=== PATIENT | female | born 1960 | race Caucasian/White ===

== ENCOUNTER 2017-04-15 15:22 | Emergency (ER) | payer OTHER, SELFPAY ==
[2017-04-15 15:23] VITALS: BP 128/61; PULSE 79; RESP 16; TEMP 36.7; O2SAT 97; BMI 23.5
[2017-04-15] MEDS: 0.9% Normal Saline 1,000 ML 1000 ML IV (16:30)
[2017-04-15 16:47] LABS: Absolute Neutrophil Count 6.2 X10^3/uL (2.0-7.7); Basophil# 0.01 X10^3/uL; Basophil% 0.1 % (0-1); Eosinophil# 0.01 X10^3/uL; Eosinophils% 0.1 % (0-5); Hematocrit 35.6 % (37-47); Hemoglobin 11.9 g/dl (12.0-15.0); Lymphocyte % 22.8 % (19-41); Mean Corp Hgb Conc 33.4 g/gl (32-36); Mean Corpuscular Hgb 31.9 pg (27.0-32.0); Mean Corpuscular Volume 95.4 fL (81-99); Mean Platelet Vol. 8.8 fl (6.2-12.0); Monocyte# 0.51 X10^3/uL; Monocyte% 5.8 % (0-10); Neutrophil # 6.19 X10^3/uL (2.7-7.7); Neutrophil % 70.6 % (47-70); Platelet Count 411 K/mm3 (150-450); RBC Distribution Width CV 13.5 % (11.6-14.6); RBC Distribution Width SD 46.9 fl (35.1-43.9); Red Blood Count 3.73 M/mm3 (4.2-5.4); White Blood Count 8.8 K/mm3 (4.4-11.0)
[2017-04-15 16:49] LABS: POSITIVE COUNT NO; POSITIVE DIFFERENTIAL NO; POSITIVE MORPHOLOGY NO
[2017-04-15 17:09] LABS: Anion Gap 8 (5-15); BUN 6 mg/dL (7-18); BUN/Creat Ratio 8.6 RATIO (10-20); Chloride 105 mmol/L (98-107); EST Glomerular Filtration Rate 93 mL/min (>60); Est Glom Filt Rate - Afr Amer 112 mL/min (>60); Estimated Creatinine Clearance 86.01 ml/min; Glucose 108 mg/dL (74-106); Sodium Level 136 mmol/L (136-145)
--- NOTE | 2017-04-15 17:20 | RAD_ITS ---
STUDY: X-RAY CHEST REASON FOR EXAM: Female, 56 years old. INCREASED SHORTNESS OF BREATH, PT IS RECOVERING FROM THE FLU. SENT TO ED BY PCP FOR POSSIBLE PNUEMONIA TECHNIQUE: Frontal and lateral view of the chest. COMPARISON: August 09, 2016 FINDINGS: Right lower lobe infiltrate. There is no demonstrated pleural abnormality. Normal size heart. Normal mediastinum and sandra. Normal visualized pulmonary arteries. Normal visualized aortic arch and descending thoracic aorta. There are diffuse degenerative changes of the visualized thoracic spine. Normal visualized ribs, clavicles, and shoulders. There is no demonstrated abnormality of the visualized soft tissue structures of the upper abdomen. RAD/Chest PA and Lateral IMPRESSION: Right lower lobe infiltrate. Electronically Signed: Erasto Persaud MD at 18:00 EST , Service support ,
[2017-04-15 17:33] VITALS: O2SAT 97
--- NOTE | 2017-04-15 18:11 | ED.VISSUMM ---
- ER Visit Summary Date of Service: 04/15/17 Chief Complaint: Flulike symptoms History of Present Illness: The patient is a 56 F who presents with flulike symptoms beginning in early March. She reports subjective fevers sore throat cough muscle aches joint aches and headache. She states she feels like she is just not breathing right. She does have some dyspnea on exertion. She denies any chest pain. She denies vomiting or diarrhea. She states she was initially improving but began worsening again earlier this week. She spoke to her primary care physician who was current concerned as she is immunosuppressed. She is currently on a long prednisone taper due to adrenal insufficiency. She was previously on methotrexate but is not on this currently. Physical Examination: Afebrile vitals are unremarkable and within normal limits Moist mucous membranes Heart regular rate and rhythm Does have some scattered rhonchi and extra wheezes I do not appreciate rales she is in no distress she is able speak in full sentences without retractions Alert Test Results: CBC BMP unremarkable. Rapid influenza negative. Chest x-ray does show right lower lobe infiltrate. Emergency Department Course and Treatment: Patient does have a community-acquired pneumonia. Her vitals are normal and she has unremarkable laboratory studies. I do believe she is a good candidate for outpatient treatment. She was given a prescription for Levaquin. She understands to return for new or worsening symptoms and was instructed on specific signs and symptoms to monitor for. She was discharged. Treatment Plan: [] Disposition: Discharge Impression: Community acquired pneumonia This note was generated with [employer] dictation software. It may contain incorrect words, spelling, and punctuation that were not noted in review of the chart prior to signing ED Disposition - Plan for ED Patient: Chief Complaint: Shortness of Breath Referrals: Martha Shah DO [Primary Care Provider] -
--- NOTE | 2017-04-15 18:13 | ED.DEP ---
ED Disposition - Plan for ED Patient: Chief Complaint: Shortness of Breath Instructions: ED Pneumonia Adult Prescriptions: Levofloxacin [Levaquin] 500 mg PO DAILY #7 tab Referrals: Martha Shah DO [Primary Care Provider] -
[2017-04-15 18:31] VITALS: BP 140/83; PULSE 72; RESP 14; O2SAT 100
== END 2017-04-15 18:33 | disposition home or self-care (01) ==
PROVIDERS: Emergency Provider Emergency Medicine; Family Provider Internal Medicine; PCP Internal Medicine
DX: J18.9 Pneumonia, unspecified organism (principal); E27.40 Unspecified adrenocortical insufficiency; E03.9 Hypothyroidism, unspecified; E78.00 Pure hypercholesterolemia, unspecified; Z79.899 Other long term (current) drug therapy; Z72.0 Tobacco use
CPT/HCPCS: 71046; 80048; 85025; 87633; 87804; 96360; 96361; 99283; J7030; A4216

== ENCOUNTER → 2017-04-20 09:42 | Outpatient (CLI) | payer OTHER, SELFPAY ==
[2017-04-20 11:59] LABS: Absolute Lymphocyte Count 3.42 X10^3/ul (0.83-4.51); Absolute Neutrophil Count 5.9 X10^3/uL (2.0-7.7); Basophil# 0.02 X10^3/uL; Basophil% 0.2 % (0-1); Eosinophil# 0.03 X10^3/uL; Eosinophils% 0.3 % (0-5); Hematocrit 37.5 % (37-47); Lymphocyte # 3.42 X10^3/ul (4.0); Lymphocyte % 33.8 % (19-41); Mean Corpuscular Hgb 31.5 pg (27.0-32.0); Mean Corpuscular Volume 98.4 fL (81-99); Mean Platelet Vol. 8.7 fl (6.2-12.0); Monocyte# 0.76 X10^3/uL; Monocyte% 7.5 % (0-10); Neutrophil # 5.85 X10^3/uL (2.7-7.7); Neutrophil % 57.8 % (47-70); Platelet Count 525 K/mm3 (150-450); RBC Distribution Width SD 49.9 fl (35.1-43.9); Red Blood Count 3.81 M/mm3 (4.2-5.4); White Blood Count 10.1 K/mm3 (4.4-11.0)
[2017-04-20 12:03] LABS: POSITIVE COUNT NO; POSITIVE DIFFERENTIAL NO; POSITIVE MORPHOLOGY NO
[2017-04-21 14:13] LABS: EBV Acute VCA IgM < 36.0 U/mL (0.0-35.9); EBV Early Antigen IgG 49.1 U/mL (0.0-8.9); EBV Nuclear Antigen IgG > 600.0 U/mL (0.0-17.9)
== END ==
PROVIDERS: Family Provider Internal Medicine; PCP Internal Medicine; Visit Provider Internal Medicine
DX: R53.83 Other fatigue (principal)
CPT/HCPCS: 36415; 85025; 86663; 86664; 86665

== ENCOUNTER → 2017-05-01 11:32 | Outpatient (CLI) | payer OTHER, SELFPAY ==
--- NOTE | 2017-05-01 11:53 | RAD_ITS ---
STUDY: X-RAY CHEST REASON FOR EXAM: Female, 56 years old. Follow-up of right lower lobe pneumonia. TECHNIQUE: Frontal and lateral views of the chest. COMPARISON: April 15, 2017 FINDINGS: There is mild hyperexpansion unchanged. The patchy opacity at the right base peripherally has resolved. There are healed granulomatous calcifications unchanged. There is no demonstrated pleural abnormality. Normal size heart. Normal mediastinum and sandra. Normal visualized pulmonary arteries. Normal visualized aortic arch and descending thoracic aorta. Normal visualized thoracic spine. Normal visualized ribs, clavicles, and shoulders. There is no demonstrated abnormality of the visualized soft tissue structures of the upper abdomen. RAD/Chest PA and Lateral IMPRESSION: Healing of right lower lobe pneumonia. No acute pathology. Electronically Signed: Murray Palma MD at 17:05 EST , Service support ,
== END ==
PROVIDERS: Family Provider Internal Medicine; PCP Internal Medicine; Visit Provider Internal Medicine
DX: J18.9 Pneumonia, unspecified organism (principal)
CPT/HCPCS: 71046

== ENCOUNTER 2017-05-22 11:00 | Outpatient (RCR) | payer OTHER, SELFPAY ==
--- NOTE | 2017-03-30 16:27 | HP.PTEVAL_ITS ---
Patient's Visit Information TITA LAW is a 56 year old F referred to Physical Therapy by Maddie Munoz , [employer] with a diagnosis of L-IVDD,L-STENOSIS,L-SPONDYLOPATHY,MYALGIA. Date of Evaluation: 03/30/17 Physical Therapist: Alan Miller, PT, - Visit Plan Frequency: 2x /Week Duration: 4 Weeks Plan: US,MHP CERVICAL -LUMBAR,ESTIM, MANUAL THERAPY WITH STM/MYOFASCIAL CERVICAL /LUMBAR, PROGRESS WITH POSTURAL EX'S AND DLS ABLE - Subjective Subjective: This 56 y/o female presents to physical therapyLIVDD,LSTENOSIS, Lspondylothathy,myalgia. Patient has h/o cervical fusion 2010,lumbar surgery fusion 2004. Patient has had lum bar pain in cervical and lumbar with radicular worse in arms. Patient has parathesia/hands in hand right than left. Patient conts to have intermmtant symptos in legs. Patient has h/o compression fracture. Symptoms worse with walking ,standing,bending,lifting,sitting, driving. Patient has MINOR/migraines . Patient has muscle spasms in cervical- lumbar. Patient has had prior PT and water ex's in past. Pain affects sleeping. Denies tinnitus/nausea.Pain interfers with patient daily function uality of life from pain.Patient had MRI cervical . Paln to see surgeon. Coughing/seezing -. Bowel/bladder good.Patient has had injection epidural. VOCATION: home. SOCAIL: - Pain Bilateral Neck Pain Intensity (Out of 10): 4 Pain Intensity Range: 10 Bilateral Shoulder Pain Intensity (Out of 10): 5 Pain Intensity Range: 10 Comment: arms Bilateral Buttocks Pain Intensity (Out of 10): 4 Pain Intensity Range: 10 Bilateral Lower Extremity Pain Intensity (Out of 10): 4 Pain Intensity Range: 10 - Objective POSTURE: guarded mild foward posture,reduce lordosis. GAIT: reciprocal gait , normal brittany. PALPATION: tender UT/LEVATOR /paraspinals,L-S,ERECTOR SPINALS. BUE AROM: WFL. CERVICAL ROM: flexion min/mod loss,rotation /lateral flexion, mod loss ,extension mod loss. MMT: 4-5/ except shoulders 3+/5. LUMBAR ROM: flexion mod loss,extension mod loss ,side glides mod loss. FLEXABLITY : hams min loss - Special Tests C/S Radiculapathy - Left Upper limb tension test: Negative C/S Radiculapathy - Right Upper limb tension test: Negative L/S Slump test left side: Negative L/S Slump test right side: Negative L/S Left Straight Leg Raise: Negative L/S Right Straight Leg Raise: Negative - Goals Goal 1:: Independant with HEP as bunny Goal Time Frame: 4-6 Weeks Goal 2:: Independant with posture for ADL'S Goal Time Frame: 4-6 Weeks Goal 3:: Decrease cervical and lumbar pain by 40% or greater to improve function. Goal Time Frame: 4-6 Weeks Goal 4:: Increase strength BUE AND BLE to 4/5 nto improve function and ADL'S Goal Time Frame: 4-6 Weeks Goal 5:: Patient improve ablity to peform ADLS' and housework tasks with min limitaions. Goal Time Frame: 4-6 Weeks - Rehabilitation Potential Physical Therapy Diagnosis: This patient has multiple comormidities with cervical and lumbar fusion with chronic pain,spasms with poor ROM ,poor strength ,impairs function with ADL'S Rehabilitation Potential: Good - Anticipated Interventions Patient/Client Instruction: Educate patient on: Condition, Plan of Care For the Purpose of:: To decrease pain, To improve muscle performance and motor function, To improve ability to perform ADL's, To increase tolerance to activity /condition/position, To improve ability of physical actions for home/community/ work/leisure, To improve health of tissue, To decrease soft tissue restriction, To increase flexibility/ROM, To improve health and function, To improve ability to perform tasks related to life management Therapeutic Exercise to Include: Strength training, Postural training, Flexibilty training, Dynamic Lumbar Stabilization Comment: ABLE For the Purpose of:: To decrease pain, To increase ROM, To improve muscle performance and motor function, To improve ability to perform ADL's, To increase tolerance to activity/condition/position, To improve ability of physical actions for home/community/work/leisure, To improve health of tissue, To decrease soft tissue restriction, To increase flexibility/ROM, To improve health and function, To improve ability to perform tasks related to life management Manual Therapy Techniques to Include: Massage, Soft tissue mobilization For the Purpose of:: To decrease pain, To increase ROM, To improve nutrient delivery to tissue, To increase oxygenation perfusion TENS: Yes IF ES: Yes Cryotherapy (ice pack, ice massage): Yes Thermo therapy (hot pack): Yes Ultrasound (thermal/non thermal): Yes For the Purpose of:: To decrease pain, To improve nutrient delivery to tissue, To increase oxygenation perfusion, To improve health of tissue, To decrease soft tissue restriction Thank you for the opportunity to evaluate your patient. For Medicare and Medicare HMO plans, please review the plan of care and approve it. It will need to be FAXED BACK to us at [phone] for Medicare purposes. Please let me know if there are questions or concerns regarding this plan of care. Physician Signature: Date:
--- NOTE | 2017-07-26 10:16 | HP.PTDCSUM ---
HP - PT D/C Summary It has been my pleasure to treat TITA LAW under orders from THOR Ridley, for the diagnosis of L-IVDD,L-STENOSIS,L-SPONDYLOPATHY,MYALGIA for a total of 8 visit(s). Discharge Date: Please see the following information for a summary of their discharge status. - Subjective Subjective: Some better today .Plan to SEE surgoen for mylogram - Pain Bilateral Neck Pain Intensity (Out of 10): 5 Bilateral Shoulder Pain Intensity (Out of 10): 5 Bilateral Buttocks Pain Intensity (Out of 10): 5 Bilateral Lower Extremity Pain Intensity (Out of 10): 5 - Objective Objective/Function: POSTURE: MILD FOWARD HEAD ,DECREASE LORDOSIS. GAIT: SYLVIA REINA. MMT: QUADS/HAMS 4/5,HIP 4-/5,BUE GROSSLY 4/5 EXCEPT SHOULLDERS 4-/5. CERVICAL ROM: MOD LOSS. LUMBAR ROM: MOD LOSS - Goals Goal 1:: Independant with HEP as bunny Goal Progress: Progressing Goal 2:: Independant with posture for ADL'S Goal Progress: Progressing Goal 3:: Decrease cervical and lumbar pain by 40% or greater to improve function. Goal Progress: Progressing Goal 4:: Increase strength BUE AND BLE to 4/5 nto improve function and ADL'S Goal Progress: Progressing Goal 5:: Patient improve ablity to peform ADLS' and housework tasks with min limitaions. Goal Progress: Progressing - Plan Plan: RTD - D/C Information If there are questions or concerns regarding this patient's physical therapy, please feel free to call me at [phone]. Thank you for the referral of this patient. Sincerely, Alan Miller, PT,
== END 2017-05-22 19:00 | disposition home or self-care (01) ==
LOC: PT 11:00
PROVIDERS: Family Provider Internal Medicine; PCP Internal Medicine; Visit Provider Nurse Practitioner Family
DX: M48.061 Spinal stenosis, lumbar region without neurogenic claudication (principal); M51.36 Other intervertebral disc degeneration, lumbar region; M46.96 Unspecified inflammatory spondylopathy, lumbar region; M79.1 Myalgia
CPT/HCPCS: 97014; 97035; 97110; 97140; 97162; 97530; G0283

== ENCOUNTER → 2017-06-22 11:33 | Outpatient (CLI) | payer OTHER, SELFPAY ==
[2017-06-22 14:13] LABS: Absolute Lymphocyte Count 2.05 X10^3/ul (0.83-4.51); Absolute Neutrophil Count 2.7 X10^3/uL (2.0-7.7); Basophil# 0.03 X10^3/uL; Basophil% 0.5 % (0-1); Eosinophils% 1.8 % (0-5); Hematocrit 39.2 % (37-47); Hemoglobin 12.8 g/dl (12.0-15.0); Lymphocyte # 2.05 X10^3/ul (4.0); Lymphocyte % 37.2 % (19-41); Mean Corp Hgb Conc 32.7 g/gl (32-36); Mean Corpuscular Hgb 32.6 pg (27.0-32.0); Mean Corpuscular Volume 99.7 fL (81-99); Mean Platelet Vol. 10.4 fl (6.2-12.0); Monocyte# 0.59 X10^3/uL; Monocyte% 10.7 % (0-10); Neutrophil # 2.73 X10^3/uL (2.7-7.7); Neutrophil % 49.6 % (47-70); Platelet Count 276 K/mm3 (150-450); RBC Distribution Width CV 13.9 % (11.6-14.6); RBC Distribution Width SD 49.8 fl (35.1-43.9); Red Blood Count 3.93 M/mm3 (4.2-5.4); White Blood Count 5.5 K/mm3 (4.4-11.0)
[2017-06-22 14:18] LABS: POSITIVE COUNT NO; POSITIVE DIFFERENTIAL NO; POSITIVE MORPHOLOGY NO
[2017-06-22 14:38] LABS: BUN 8 mg/dL (7-18); BUN/Creat Ratio 10.2 RATIO (10-20); Creatinine, Serum 0.79 mg/dL (0.55-1.02); EST Glomerular Filtration Rate 81 mL/min (>60); Est Glom Filt Rate - Afr Amer 98 mL/min (>60); Glucose 82 mg/dL (74-106); Protein, Total 7.3 g/dL (6.4-8.2)
[2017-06-22 14:39] LABS: ALB/GLOB Ratio 1.2 RATIO (0.9-2.4); AST(SGOT) 18 U/L (15-37); Alanine Aminotransfer ALT/SGPT 19 U/L (13-56); Alkaline Phosphatase 50 U/L (45-117); Anion Gap 8 (5-15); Calcium,Total 8.5 mg/dL (8.5-10.1); Chloride 107 mmol/L (98-107); Cholesterol 183 mg/dL (200); Globulin 3.3 g/dL (2.2-4.2); High Density Lipoprotein 69 mg/dL; Potassium 3.8 mmol/L (3.5-5.1); Sodium Level 139 mmol/L (136-145); Triglycerides 79 mg/dL; Very Low Density Lipoprotein 16 mg/dL (5-40)
[2017-06-22 14:41] LABS: Hemoglobin A1c 5.9 % (4.2-6.3)
== END ==
PROVIDERS: Family Provider Internal Medicine; PCP Internal Medicine; Visit Provider Internal Medicine
DX: E78.4 Other hyperlipidemia (principal); R73.01 Impaired fasting glucose
CPT/HCPCS: 36415; 80053; 80061; 83036; 85025

== ENCOUNTER → 2017-06-28 15:27 | Outpatient (CLI) | payer OTHER, SELFPAY ==
--- NOTE | 2017-06-28 15:30 | CT_ITS ---
STUDY: CT BRAIN WITHOUT CONTRAST REASON FOR EXAM: Female, 56 years old. Fall. RADIATION DOSAGE (If Supplied By Facility): CTDIvol = ( 44.99 ) mGy, DLP = ( 846.73 ) mGycm TECHNIQUE: Transaxial CT imaging of the brain was performed without administration of intravenous contrast material. Individualized dose optimization techniques were used for this CT. COMPARISON: None. FINDINGS: Normal soft tissue structures. Normal calvarium. Normal size ventricles and extra-axial spaces for the patient's age. Normal white matter tracts of the cerebral hemispheres. Normal basal ganglia and thalami. Normal brainstem. Normal cerebellum. There is no intracranial hemorrhage. There are no findings of an acute ischemic infarction. Normal visualized paranasal sinuses. CT/Brain/Head without Contrast IMPRESSION: Normal unenhanced CT scan of the brain. Electronically Signed: Yovanny Rivera MD at 16:17 EDT , Service support ,
--- NOTE | 2017-06-28 15:54 | RAD_ITS ---
STUDY: X-RAY - RIGHT RADIUS AND ULNA REASON FOR EXAM: Female, 56 years old. Patient fell 2 weeks ago. Pain. TECHNIQUE: 2 view(s) of the forearm. COMPARISON: None. FINDINGS: There is no demonstrated soft tissue swelling. Normal visualized radius. Normal visualized ulna. RAD/Forearm 2 Views IMPRESSION: Normal x-ray examination of the radius and ulna. Electronically Signed: Jam Thomas MD at 2:41 EDT Tel , Service support ,
--- NOTE | 2017-06-28 15:55 | RAD_ITS ---
STUDY: X-RAY - RIGHT WRIST REASON FOR EXAM: Female, 56 years old. Patient fell 2 weeks ago. Pain. TECHNIQUE: 3 view(s) of the wrist were obtained. COMPARISON: None. FINDINGS: Normal visualized distal radius and ulna. Normal radiocarpal articulation. Normal distal radioulnar articulation. Normal carpal bones. Normal carpal articulations. Normal carpometacarpal articulation of the thumb. Normal second through fifth carpometacarpal articulations. Normal visualized metacarpal bones. The soft tissue structures are unremarkable. There is no demonstrated acute fracture. There are well-defined bony densities distal to the ulnar styloid which could represent nonfused ossification centers or old nonunited fracture. RAD/Wrist min 3 Views IMPRESSION: No demonstrated acute osseous changes. Electronically Signed: Jam Thomas MD at 2:43 EDT Tel , Service support ,
== END ==
PROVIDERS: Family Provider Internal Medicine; PCP Internal Medicine; Visit Provider Internal Medicine
DX: M25.531 Pain in right wrist (principal); M81.0 Age-related osteoporosis without current pathological fracture; R51 Headache
CPT/HCPCS: 70450; 73090; 73110

== ENCOUNTER → 2017-08-31 12:27 | Outpatient (CLI) | payer OTHER, SELFPAY ==
--- NOTE | 2017-08-31 12:33 | BD_ITS ---
STUDY: DUAL ENERGY X-RAY ABSORPTIOMETRY / DXA REASON FOR EXAM: Female, 57 years old. The patient is postmenopausal. Loss of height. TECHNIQUE: Bone Mineral Density (BMD) measurements of lumbar spine and right hip were obtained. COMPARISON: Comparison is made with prior study dated August 27, 2015. FINDINGS: Lumbar Spine (L1-L4): g/cm2 (0.957) / T-score (-1.9) / Z-score (-1.1) Findings are suggestive of osteopenia with a moderate fracture risk. Left Femur Total: g/cm2 (0.650) / T-score (-2.8) / Z-score (-2.2) Left Femoral Neck: g/cm2 (0.644) / T-score (-2.8) / Z-score (-1.8) The T-Scores on the most recent prior examination were: Lumbar Spine (L1-L4): There has been improvement of bone density since the previous examination. Left Femur Total: which represents an improvement of 8.2%. BD/Dexa Bone Density Study IMPRESSION: The patient is considered osteoporotic as outlined below according to World Tod Organization (WHO) criteria with a high fracture risk. There has been improvement of bone density since the previous examination. Reference Information: The T-score is the number of standard deviations above or below the standard which is normal for young adults at their peak bone mineral density. The World Health Organization (WHO) interprets the T-scores as follows: Above -1 Normal bone density Between -1 and -2.5 Osteopenia Equal to / or below -2.5 Osteoporosis As a practical clinical guideline, osteopenia may be graded as follows: Mild -1 through -1.5 Moderate -1.6 through -2.0 Severe -2.1 through -2.4 The Z-score is the number of standard deviations above or below age-matched controls. A Z-score of less than -1.5 would be considered abnormal. References: 1. NIH Osteoporosis and Related Bone Diseases http://www.osteo.org 2. International Society for Clinical Densitometry http://www.iscd.org 3. National Osteoporosis Foundation http://www.nof.org Electronically Signed: Barrera Nguyen MD at 15:16 EDT Tel [phone], Service support ,
--- NOTE | 2017-08-31 12:56 | BI_ITS ---
MAMMOGRAPHY - BILATERAL SCREENING REASON FOR EXAM: Female, 57 years old. Routine annual screening examination. PERTINENT HISTORY: Mother with breast cancer. Left breast tenderness. TECHNIQUE: Digital bilateral breast aktia (3D mammographic acquisition) in the CC and MLO projections. 2-D mediolateral oblique (MLO) and craniocaudad (CC) views of both breasts were obtained. CAD: Full Field Digital Mammography with Computer Added Detection was performed. COMPARISON: Comparison is made with prior study dated August 29, 2016 and August 27, 2015. FINDINGS: Breast Composition: There are scattered areas of fibroglandular density. There are no dominant masses or suspicious calcifications. A tissue clip marker is once again seen in the upper deep lateral portion of the left breast. No other significant abnormalities are identified. There has been no significant change since the prior study. BI/SCREENING MAMM (CAD), BILAT IMPRESSION: Stable bilateral screening mammogram. Yearly follow-up mammogram recommended. (A) ASSESSMENT CATEGORY: BIRADS Category 2: Benign. A letter regarding these results will be sent to the patient by the facility within 30 days. Approximately 10% of breast cancers are not detected by mammography. A normal mammogram should not delay biopsy of a clinically suspicious abnormality. [id number] Electronically Signed: Barrera Nguyen MD at 14:24 EDT Tel [phone], Service support ,
== END ==
PROVIDERS: Family Provider Internal Medicine; PCP Internal Medicine; Visit Provider Internal Medicine
DX: M81.0 Age-related osteoporosis without current pathological fracture (principal); Z12.31 Encounter for screening mammogram for malignant neoplasm of breast
CPT/HCPCS: 77063; 77067; 77080

== ENCOUNTER → 2017-10-28 13:13 | Outpatient (CLI) | payer OTHER, SELFPAY ==
[2017-10-28 13:47] LABS: Erythrocyte Sedimentation Rate 3 mm/hr (0-30)
[2017-10-28 13:50] LABS: Absolute Lymphocyte Count 1.79 X10^3/ul (0.83-4.51); Absolute Neutrophil Count 3.9 X10^3/uL (2.0-7.7); Basophil# 0.03 X10^3/uL; Basophil% 0.5 % (0-1); Eosinophil# 0.02 X10^3/uL; Eosinophils% 0.3 % (0-5); Hemoglobin 13.2 g/dl (12.0-15.0); Lymphocyte # 1.79 X10^3/ul (4.0); Lymphocyte % 28.4 % (19-41); Mean Corp Hgb Conc 33.8 g/gl (32-36); Mean Corpuscular Hgb 33.5 pg (27.0-32.0); Mean Platelet Vol. 9.7 fl (6.2-12.0); Monocyte# 0.52 X10^3/uL; Monocyte% 8.3 % (0-10); Neutrophil # 3.93 X10^3/uL (2.7-7.7); Neutrophil % 62.3 % (47-70); POSITIVE COUNT NO; POSITIVE DIFFERENTIAL NO; POSITIVE MORPHOLOGY NO; Platelet Count 275 K/mm3 (150-450); RBC Distribution Width CV 13.8 % (11.6-14.6); RBC Distribution Width SD 49.3 fl (35.1-43.9); Red Blood Count 3.94 M/mm3 (4.2-5.4); White Blood Count 6.3 K/mm3 (4.4-11.0)
[2017-10-28 13:59] LABS: Hemoglobin A1c 5.7 % (4.2-6.3)
[2017-10-28 14:50] LABS: ALB/GLOB Ratio 1.3 RATIO (0.9-2.4); AST(SGOT) 15 U/L (15-37); Alanine Aminotransfer ALT/SGPT 20 U/L (13-56); Albumin, Serum 4.3 g/dL (3.2-5.0); Alkaline Phosphatase 46 U/L (45-117); Anion Gap 8 (5-15); BUN 6 mg/dL (7-18); BUN/Creat Ratio 8.5 RATIO (10-20); CRP < 2.90 mg/L (0.0-3.0); Calcium,Total 8.9 mg/dL (8.5-10.1); Chloride 105 mmol/L (98-107); Cholesterol 200 mg/dL (200); Creatinine, Serum 0.71 mg/dL (0.55-1.02); EST Glomerular Filtration Rate 91 mL/min (>60); Est Glom Filt Rate - Afr Amer 110 mL/min (>60); Globulin 3.3 g/dL (2.2-4.2); Glucose 94 mg/dL (74-106); High Density Lipoprotein 77 mg/dL; Potassium 4.1 mmol/L (3.5-5.1); Protein, Total 7.6 g/dL (6.4-8.2); Sodium Level 138 mmol/L (136-145); Triglycerides 106 mg/dL; Very Low Density Lipoprotein 21 mg/dL (5-40)
== END ==
PROVIDERS: Family Provider Internal Medicine; PCP Internal Medicine; Visit Provider Internal Medicine
DX: E78.4 Other hyperlipidemia (principal); E55.9 Vitamin D deficiency, unspecified; R73.01 Impaired fasting glucose; R51 Headache
CPT/HCPCS: 36415; 80053; 80061; 82306; 83036; 85025; 85652; 86140

== ENCOUNTER → 2017-11-06 11:07 | Outpatient (CLI) | payer OTHER, SELFPAY ==
--- NOTE | 2017-11-06 11:27 | MRI_ITS ---
STUDY: MRI BRAIN WITH AND WITHOUT CONTRAST REASON FOR EXAM: Female, 57 years old. Headache, confusion, off balance and vision change. TECHNIQUE: Standardized multiplanar fat and water weighted pulse sequences were obtained. 7 ml of Gadavist contrast material was administered intravenously for the contrast portion of the examination. COMPARISON: MRI brain with and without contrast 02/10/2016. FINDINGS: Normal size of the ventricles and extra-axial spaces for the patient's age. Multiple subcortical white matter T2 FLAIR hyperintensity foci and in the left periatrial white matter are chronic findings and nonspecific. They are unchanged. There are no associated mass effects. Normal bilateral basal ganglia. Normal thalami. There is no extra-axial fluid accumulation. Normal flow voids within the major intracranial circulation suggesting patency by spin echo criteria. Normal venous enhancement. There is no enhancing intra-axial or extra-axial abnormality. Normal sella turcica, pituitary gland, infundibular stalk, optic chiasm and hypothalamus. Normal tectal plate and pineal gland. Normal midbrain, cherelle and medulla. Normal cerebellum. Normal basal cisterns. Normal bilateral temporal bones. Normal bilateral internal auditory canals. No demonstrated orbital abnormality, within the constraints of a routine brain study. Normal visualized paranasal sinuses. Normal calvarium and skull base. Normal visualized soft tissue structures. Normal visualized upper cervical spine. MRI/Brain W/WO Contrast IMPRESSION: 1. No MRI evidence of acute or subacute ischemic infarct. 2. No MRI evidence of remote cortical-based ischemic infarct or old lacunar cystic infarcts. 3. Multiple chronic nonspecific white matter T2 FLAIR hyperintensity foci in both cerebral hemispheres. Possibilities include migraine related changes, small vessel disease and vasculitis. They are atypical for MS plaques. 4. No enhancing lesions intraaxially and extra-axially. 5. No interval change when compared to 02/10/2016. Electronically Signed: Pedro Luis Akhtar MD at 16:03 EDT , Service support ,
== END ==
PROVIDERS: Family Provider Internal Medicine; PCP Internal Medicine; Visit Provider Internal Medicine
DX: R51 Headache (principal)
CPT/HCPCS: 70553; A9585

== ENCOUNTER → 2018-01-01 16:12 | Outpatient (CLI) | payer OTHER, SELFPAY ==
[2018-01-01 16:46] LABS: Mucous, Urine 0 SEEN /hpf (<or=2+)
[2018-01-01 17:04] LABS: Color, Urine Yellow (Yellow); Glucose, Dipstick Normal (Normal); Ketone-Dipstick Negative (Negative); Leukocyte Esterase-Dipstick 500 /ul (Negative); Nitrite-Dipstick Negative (Negative); Occult Blood-Urine 250 /ul (Negative); Protein-Dipstick 30 mg/dl (Negative); Urine Bilirubin Dipstick Negative (Negative); Urine Clarity Cloudy (Clear); Urine Urobilinogen Normal (Normal)
[2018-01-01 17:22] LABS: Red Blood Cells-Urine > 100 SEEN /hpf (0-5); White Blood Cells 25-50 SEEN /hpf (0-5)
[2018-01-01 17:23] LABS: Bacteria 1+ /hpf (None Seen); Calcium Oxalate Crystals Ur 1+ /hpf (<or=2+); Squamous Epithelial Cells - UA 0-5 SEEN /hpf (5-10)
== END ==
PROVIDERS: Family Provider Internal Medicine; PCP Internal Medicine; Referring Provider Physician Assistant; Visit Provider Physician Assistant
DX: R30.0 Dysuria (principal)
CPT/HCPCS: 81001; 87086; 87088; 87186

== ENCOUNTER → 2018-01-08 12:14 | Outpatient (CLI) | payer OTHER, SELFPAY ==
--- NOTE | 2018-01-08 12:17 | CT_ITS ---
STUDY: CT ABDOMEN AND PELVIS WITHOUT CONTRAST REASON FOR EXAM: Female, 57 years old. Right flank pain and hematuria. RADIATION DOSAGE (If Supplied By Facility): CTDIvol = ( 10.70 ) mGy, DLP = ( 532 ) mGycm TECHNIQUE: Transaxial images were obtained from the dome of the diaphragm to the symphysis pubis without oral contrast, and without intravenous contrast. Sagittal and coronal images were reconstructed. Individualized dose optimization techniques were used for this CT. COMPARISON: Comparison is made with prior study dated June 02, 2016. FINDINGS: Calcified granuloma in the right midlung. Stable small pericardial effusion worse posteriorly. Normal liver. Normal gallbladder and extrahepatic biliary system. There are multiple benign calcified granulomata of the spleen. Normal pancreas. There is a small, circumscribed, smooth, low attenuation right adrenal mass, consistent with an adrenal adenoma. This measures 1.6 cm. Normal left adrenal gland. Normal right kidney. Normal left kidney. Normal visualized stomach. Normal small intestine. Normal colon. There are surgical clips in the region of the appendix consistent with a prior appendectomy. There is scattered atherosclerotic calcification of the abdominal aorta, without a demonstrated aneurysm. Normal inferior vena cava. Normal retroperitoneum. There is evidence of a cystocele. There is absence of the uterus consistent with a prior hysterectomy. Normal abdominal wall. The patient is status post laminectomy and interpedicular screw fixation at the L5-S1 level. Grade 1 anterior listhesis of L5 on S1 CT/Abdomen/Pelvis without Cont IMPRESSION: Small left adrenal adenoma. Stable small pericardial effusion. Status post hysterectomy. Cystocele. Electronically Signed: Barrera Nguyen MD at 13:09 EST Tel [phone], Service support ,
[2018-01-08 12:58] LABS: Absolute Lymphocyte Count 1.33 X10^3/ul (0.83-4.51); Absolute Neutrophil Count 11.5 X10^3/uL (2.0-7.7); Basophil# 0.02 X10^3/uL; Basophil% 0.1 % (0-1); Eosinophil# 0.02 X10^3/uL; Eosinophils% 0.1 % (0-5); Hematocrit 39.1 % (37-47); Hemoglobin 12.7 g/dl (12.0-15.0); Lymphocyte # 1.33 X10^3/ul (4.0); Lymphocyte % 9.5 % (19-41); Mean Corp Hgb Conc 32.5 g/gl (32-36); Mean Corpuscular Hgb 32.2 pg (27.0-32.0); Mean Corpuscular Volume 99.2 fL (81-99); Monocyte# 1.05 X10^3/uL; Monocyte% 7.5 % (0-10); Neutrophil # 11.51 X10^3/uL (2.7-7.7); Neutrophil % 82.7 % (47-70); Platelet Count 304 K/mm3 (150-450); RBC Distribution Width CV 13.5 % (11.6-14.6); RBC Distribution Width SD 48.7 fl (35.1-43.9); Red Blood Count 3.94 M/mm3 (4.2-5.4)
[2018-01-08 12:59] LABS: POSITIVE COUNT NO; POSITIVE DIFFERENTIAL NO; POSITIVE MORPHOLOGY NO
[2018-01-08 13:22] LABS: ALB/GLOB Ratio 1.3 RATIO (0.9-2.4); AST(SGOT) 9 U/L (15-37); Alanine Aminotransfer ALT/SGPT 21 U/L (13-56); Albumin, Serum 4.1 g/dL (3.2-5.0); Alkaline Phosphatase 44 U/L (45-117); Anion Gap 9 (5-15); BUN 10 mg/dL (7-18); BUN/Creat Ratio 12.2 RATIO (10-20); Chloride 105 mmol/L (98-107); Creatinine, Serum 0.82 mg/dL (0.55-1.02); EST Glomerular Filtration Rate 77 mL/min (>60); Est Glom Filt Rate - Afr Amer 93 mL/min (>60); Globulin 3.2 g/dL (2.2-4.2); Glucose 89 mg/dL (74-106); Potassium 4.8 mmol/L (3.5-5.1); Protein, Total 7.3 g/dL (6.4-8.2); Sodium Level 140 mmol/L (136-145)
== END ==
PROVIDERS: Family Provider Internal Medicine; PCP Internal Medicine; Referring Provider Internal Medicine; Visit Provider Internal Medicine
DX: D35.02 Benign neoplasm of left adrenal gland (principal); I31.3 Pericardial effusion (noninflammatory); N81.10 Cystocele, unspecified; Z90.710 Acquired absence of both cervix and uterus
CPT/HCPCS: 74176; 80053; 85025

== ENCOUNTER → 2018-02-14 07:59 | Outpatient (CLI) | payer OTHER, SELFPAY ==
[2017-12-30 12:35] VITALS: BMI 24.0
--- NOTE | 2018-02-14 08:04 | CT_ITS ---
STUDY: CT ABDOMEN AND PELVIS WITH CONTRAST REASON FOR EXAM: Female, 57 years old. Gross hematuria. RADIATION DOSAGE (If Supplied By Facility): CTDIvol = ( 14.19 ) mGy, DLP = ( 584.65 ) mGycm TECHNIQUE: Transaxial images were obtained from the dome of the diaphragm to the symphysis pubis without oral contrast. 100CC ml of Isovue 300 contrast was administered. Sagittal and coronal images were reconstructed. Delayed imaging was obtained as well. Individualized dose optimization techniques were used for this CT. COMPARISON: Comparison is made with prior study dated January 08, 2018. FINDINGS: Minimal degree of bibasilar atelectasis. The visualized portions of the heart are within normal limits. Normal liver. Normal gallbladder and extrahepatic biliary system. There are multiple benign calcified granulomata of the spleen. Normal pancreas. Normal bilateral adrenal glands. Normal right kidney. Normal left kidney. Normal visualized stomach. Normal small intestine. Moderate amount of fecal material is seen throughout the colon. The patient is status post appendectomy. There is scattered atherosclerotic calcification of the abdominal aorta, without a demonstrated aneurysm. Normal inferior vena cava. Normal retroperitoneum. The bladder is empty examination. There is evidence of a cystocele. There is absence of the uterus consistent with a prior hysterectomy. Normal abdominal wall. Stable postsurgical changes at the L5-S1 level. Grade 1 anterolisthesis of L5 on S1. CT/Abdomen/Pelvis WITH Contrast IMPRESSION: Moderate amount of fecal material is colon. There is been essentially no change since prior study. Electronically Signed: Barrera Nguyen MD at 10:47 EST Tel [phone], Service support ,
--- OUTSIDE RECORDS SUMMARY | 2018-05-18 08:22 | XMS RPT_ITS | Continuity of Care Document ---
:1960 Author Organization [facility] Address [address] [facility] [address] [place] [address] Phone Care Team Providers Name Role Phone Martha Brown DO Unavailable Brinda IRVIN, Dr. Padilla Jones Unavailable Jitendra Cook MD Unavailable Alan Torres MD Unavailable Eusebio Braswell Unavailable Dr. Carlito aZmora DO Unavailable Aristides Daily Unavailable Unavailable Dr. Matt Wilburn MD Unavailable Shahla Myers MD Unavailable [facility], [facility] Unavailable Niru Taylor Unavailable Trudi Villafana Unavailable Dr. Niru Meyer MD Unavailable Rossy IRVIN, Gato Castillo Unavailable Jay Conley Unavailable Chikis Ashley Unavailable Cherie Fountain Unavailable Unavailable Patito Tineo Unavailable Unavailable Maddie Rizzo Unavailable Unavailable YURIY Vernon Unavailable Unavailable Unavailable Unavailable Problems Name Dates Details Abdominal pain, acute, right upper quadrant (Renamed from Acute abdominal pain in right upper quadrant) (R10.11, 789.01) Comments: seems to be coming and going she not think she want to see gi she feelslike may be radiating from her back or muscle spasm Status: Active Abnormal mammogram (R92.8, 793.80) Status: Active Acquired hypothyroidism (E03.9, 244.9) Status: Active Acute bacterial bronchitis (J20.8, 466.0) Comments: 98 percent after aerosol Status: Active Acute ethmoidal sinusitis, recurrence not specified (J01.20, 461.2) Status: Active Acute headache (R51, 784.0) Status: Active Acute sinusitis (J01.90, 461.9) Status: Active Adrenal insufficiency (E27.40, 255.41) Comments: chronic stable-continue present regimen Status: Active Anxiety (F41.9, 300.00) Comments: improving Status: Active Arthritis (M19.90, 716.90) Status: Active Atypical chest pain (R07.89, 786.59) Comments: get echo may be resp infection Status: Active BMI 23.0-23.9, adult (Z68.23, V85.1) Status: Active Cellulitis of arm (L03.119, 682.3) Status: Active Cervical radiculopathy (M54.12, 723.4) Status: Active Chronic intractable headache, unspecified headache type (R51, 784.0) Status: Active Colon polyps (K63.5, 211.3) Comments: recheck 2018- Status: Active Dehydration (E86.0, 276.51) Status: Active Deliveries (Parity) Comments: 3 Status: Active Dorsalgia, unspecified (M54.9, 724.5) Status: Active Dysuria (R30.0, 788.1) Status: Active Dysuria (R30.0, 788.1) Status: Active Edema, unspecified type (R60.9, 782.3) Status: Active Encounter for screening mammogram for breast cancer (Renamed from Encounter for screening mammogram for malignant neoplasm of breast) (Z12.31, V76.12) Status: Active Encounter for screening mammogram for breast cancer (Renamed from Encounter for screening mammogram for malignant neoplasm of breast) (Z12.31, V76.12) Status: Active Encounter for screening mammogram for breast cancer (Renamed from Encounter for screening mammogram for malignant neoplasm of breast) (Z12.31, V76.12) Status: Active Fall down steps (W10.8XXA, E880.9) Status: Active Family history of diabetes mellitus (Z83.3, V18.0) Status: Active Fatigue (R53.83, 780.79) Comments: still working up Status: Active Fibrocystic breast disease (N60.19, 610.1) Comments: following with Talia Myers Status: Active Gastroesophageal reflux disease without esophagitis (K21.9, 530.81) Comments: chronic stable-continue present regimen Status: Active Headache (R51, 784.0) Status: Active Headache, acute (R51, 784.0) Comments: doing better now on propanolol for anxiety- mri unchanged Status: Active Hematuria (R31.9, 599.70) Status: Active Herpes zoster without complication (B02.9, 053.9) Comments: have asked to to see her eye doc [facility] due to risk of zoster in eye and risk of blindness- she said she would make appt-- also take her pred to 10mg for 2 days and let me know if feels better- feel like she may have trigeminal neuralgia but sh edoenst want to go back on gabapentin or lyrica Status: Active Hypocalcemia (E83.51, 275.41) Comments: get cxr Status: Active Impaired fasting glucose (R73.01, 790.21) Comments: keep working o diet and ex Status: Active Left-sided face pain (R51, 784.0) Status: Active Lumbosacral radiculopathy due to degenerative joint disease of spine (M47.27, 722.52) Status: Active Macrocytosis without anemia (D75.89, 289.89) Status: Active [facility] Status: Active [facility] Status: Active [facility] PHYSICAL Status: Active Mild intermittent asthma with acute exacerbation (J45.21, 493.92) Status: Active Neck pain (M54.2, 723.1) Status: Active Need for prophylactic vaccination and inoculation against influenza (Renamed from Need for immunization against influenza) (Z23, V04.81) Status: Active Need for prophylactic vaccination and inoculation against influenza (Renamed from Need for immunization against influenza) (Z23, V04.81) Status: Active Need for prophylactic vaccination and inoculation against influenza (Renamed from Need for immunization against influenza) (Z23, V04.81) Status: Active Neoplasm of uncertain behavior of skin (D48.5, 238.2) Status: Active Nonspecific abdominal pain (R10.9, 789.00) Comments: had diarrhea- this btter not pain unless press on or deep breath -see what labs show- question all viral Status: Active Osteopenia (M85.80, 733.90) Status: Active Osteoporosis (M81.0, 733.00) Status: Active Other elevated white blood cell (WBC) count (D72.828, 288.69) Status: Active Other hyperlipidemia (E78.49, 272.4) Status: Active Other signs and symptoms in breast (N64.59, 611.79) Comments: improved Status: Active Pharyngitis, acute (J02.9, 462) 20-May-2011 Status: Active Pneumococcal vaccination given (Z23, V06.6) Status: Active Postherpetic neuralgia (B02.29, 053.19) Status: Active Pregnancies () Comments: 3 Status: Active Primary adrenocortical insufficiency (E27.1, 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 add mucinex. some in lungs will do prfedniosen too. use inhaler have at home Status: Active Smoker (F17.200, 305.1) Comments: discussed smoking cessation in detail- very important to decrease her vascular risk etc Status: Active Smoker (F17.200, 305.1) Comments: encourage cessation Status: Active Sore throat (J02.9, 462) Comments: maybe viral await culture has been on lots of antiobiotic Status: Active Spinal fusion Comments: 2005 (4 titanium pins) Status: Active Spinal stenosis, site unspecified (M48.00, 724.00) Status: Active Thyroid disorder (E07.9, 246.9) Status: Active Thyroid nodule (E04.1, 241.0) Comments: due in feb Status: Active Transient alteration of awareness (R40.4, 780.02) Comments: she doesnt rememeber falling she supposed to have more seizure workup testing with French which i have encouraged her to complete Status: Active Unspecified Diagnosis Status: Active Urinary frequency (R35.0, 788.41) Status: Active Vitamin D deficiency (E55.9, 268.9) Comments: chronic stable-continue present regimen Status: Active Wheezing (R06.2, 786.07) Status: Active Wheezing (R06.2, 786.07) Status: Active Medications Name Dates Details BusPIRone HCl 10 MG Oral Tablet 2 (two) Tablet tid for 90 days Quantity: 540 {Tablet} Refills: 3 Ordered:19-Dec-2017 Martha Brown DO, DO, Debra A Start : 19-Dec-2017 Active CALCIUM, 600MG (PO Cap) 1 BID for 0 days Refills: 0 Ordered:11-Jun-2009 Mast RN, Emactive Ciprofloxacin HCl 500 MG Oral Tablet 1 (one) Tablet bid for 0 days Quantity: 20 {Tablet} Refills: 0 Ordered:08-Jan-2018 Martha Brown DO, DO, Debra A Start : 08-Jan-2018 Active Cytomel 5 MCG Oral Tablet 1 tab Tablet qd for 90 days Quantity: 90 {QS} Refills: 3 Ordered:05-Dec-2017 Martha Brown DO, DO, Debra A Start : 05-Dec-2017 Active DiazePAM 5 MG Oral Tablet 1 (one) Tablet bid for 0 days Quantity: 60 {Tablet} Refills: 0 Ordered:17-Oct-2017 Martha Brown DO, DO, Debra A Start : 17-Oct-2017 Active Comments:sixtyfaxed to BMT 06/16/17 Escitalopram Oxalate 20 MG Oral Tablet 1 (one) Tablet qhs for 90 days Quantity: 90 {Tablet} Refills: 3 Ordered:07-Mar-2017 Martha Brown DO, DO, Debra A Start : 07-Mar-2017 Active Hysingla ER 20 MG Oral Tablet ER 24 Hour Abuse-Deterrent 1 qd (20 MG) Active PredniSONE 5 MG Oral Tablet 1 (one) Tablet qd as directed for 90 days Quantity: 90 {Tablet} Refills: 3 Ordered:05-Dec-2017 Kevin SAMUEL Martha ROMEROoctavia Martha A Start : 05-Dec-2017 Active PredniSONE 5 MG Oral Tablet 1 (one) Tablet qd as directed for 30 days Quantity: 40 {Tablet} Refills: 0 Ordered:05-Dec-2017 Kevin SAMUEL Martha Ball DO Martha A Start : 05-Dec-2017 Active Comments:take with food in am Prolia 60 MG/ML Subcutaneous Solution 1 (one) Milliliter q 6 for 0 days Quantity: 1 {Milliliter} Refills: 0 Ordered:05-Dec-2017 Kevin SAMUEL Martha ROMEROoctavia Martha A Start : 05-Dec-2017 Active Propranolol HCl 20 MG Oral Tablet bid (20 MG) Active Rosuvastatin Calcium 20 MG Oral Tablet 1 (one) Tablet qhs for 90 days Quantity: 90 {Tablet} Refills: 3 Ordered:05-Dec-2017 Kevin SAMUEL Martha ROMEROoctavia Martha A Start : 05-Dec-2017 Active Synthroid 150 MCG Oral Tablet 1 (one) Tablet daily except 1/2 tab on m,w,f, for 90 days Refills: 3 Ordered:05-Dec-2017 Kevin SAMUEL Martha ROMEROoctavia Martha Salinas Start : 05-Dec-2017 Active Dispense as Written Comments:COLTONCOLTONCOLTON Topiramate 50 MG Oral Tablet 1 Tablet 3 tabs at night and 1 in morning for 0 days Quantity: 270 {Tablet} Refills: 3 Ordered:28-Jun-2017 Kevin SAMUEL Martha Ball DO Martha Salinas Start : 28-Jun-2017 Active Comments:please DO NOT dispense peach pills Viibryd 10 MG Oral Tablet 1 (one) Tablet Tablet qd for 0 days Quantity: 30 {Tablet} Refills: 0 Ordered:10-Nov-2017 Cherie Fountain Start : 01-Nov-2017 Active Comments:brinda VITAMIN D, 2000UNIT (Oral Tablet) 1 Daily for 0 days Refills: 0 Ordered:11-Jun-2009 Mast Allison SLOAN Zanaflex 4 MG Oral Capsule 1 (one) Capsule tid for 0 days Quantity: 90 {Capsule} Refills: 0 Ordered:08-Jan-2018 Kevin SAMUELMartha DO, Debra A Start : 08-Jan-2018 Active Comments:per painmanagement Augmentin 875-125 MG Oral Tablet 1 (one) Tablet bid for 0 days Quantity: 20 {Tablet} Refills: 0 Ordered:22-Sep-2017 NitishCherie eng Start : 28-Jun-2017 End : 22-Sep-2017 Inactive BELSOMRA, 10MG (Oral Tablet) 1 (one) Tablet q hs for 30 days Quantity: 30 {Tablet} Refills: 1 Ordered:25-Sep-2014 YURIY Vernon Start : 27-Jun-2014 End : 25-Sep-2014 Inactive CELEXA, 20MG (Oral Tablet) 1/2 Tablet qod for 90 days Quantity: 90 {Tablet} Refills: 3 Ordered:25-Sep-2014 YURIY Vernon Start : 25-Nov-2013 End : 25-Sep-2014 Inactive Diflucan 150 MG Oral Tablet 1 Tablet qd for 0 days Quantity: 10 {Tablet} Refills: 0 Ordered:22-Sep-2017 Cherie Fountain Start : 05-Jul-2017 End : 22-Sep-2017 Inactive Gabapentin 100 MG Oral Capsule 3 (three) Capsule tid for 30 days Quantity: 270 {Capsule} Refills: 0 Ordered:07-Mar-2017 Kevin SAMUELMartha DO, Debra A Start : 07-Mar-2017 End : 06-Apr-2017 Inactive HYDROCODONE-ACETAMINOPHEN, 7.5-325MG (Oral Tablet) 1 tab bid (7.5-325 MG) Inactive Comments:pain management LevoFLOXacin 500 MG Oral Tablet 1 (one) Tablet qd for 0 days Quantity: 7 {Tablet} Refills: 0 Ordered:28-Jun-2017 NitishCherie eng Start : 21-Apr-2017 End : 28-Jun-2017 Inactive LORazepam 0.5 MG Oral Tablet 1 (one) Tablet daily, prn for 30 days Quantity: 30 {Tablet} Refills: 0 Ordered:09-May-2016 Kevin SAMUELrFanrita ROMEROFran dudley DOa A Start : 09-May-2016 End : 08-Jun-2016 Inactive Comments:thirty MAXALT, 10MG (Oral Tablet) 1 (one) Tablet prn for 30 days Quantity: 10 {Tablet} Refills: 0 Ordered:02-Sep-2013 Fast DO, Martha AFast DO, Martha A Start : 01-Jul-2013 End : 31-Jul-2013 Inactive MELATONIN, 5MG (Oral Tablet) 1 QHS for 0 days Refills: 0 Ordered:04-Jun-2010 Kareem ACOSTASaloni End : 04-Jun-2010 Inactive MOBIC, 7.5MG (Oral Tablet) 1 tab qd, prn (7.5 MG) Inactive Neurontin 600 MG Oral Tablet 1 (one) Capsule Tablet bid for 0 days Quantity: 180 {Tablet} Refills: 3 Ordered:01-Sep-2016 Fast DO, Martha AFast DO, Martha A Start : 24-May-2016 End : 01-Sep-2016 Inactive NYSTATIN, 610991VLNH/ML (Mouth/Throat Suspension) 1 Suspension 5 cc 5 x a day for 10 days for 0 days Refills: 0 Ordered:28-Jun-2011 Patito Tineo Start : 10-Jun-2011 End : 28-Jun-2011 Inactive OXYCODONE-ACETAMINOPHEN, 7.5-325MG (Oral Tablet) 1 (one) Tablet Tablet q 6 hours prn for 0 days Quantity: 80 {Tablet} Refills: 0 Ordered:25-Sep-2014 YURIY Vernon Start : 25-Sep-2013 End : 25-Sep-2014 Inactive Comments:eighty PredniSONE 1 MG Oral Tablet 1-4 Tablet Tablet as directed for 0 days Quantity: 160 {Tablet} Refills: 2 Ordered:29-Nov-2016 YURIY Vernon Start : 09-May-2016 End : 29-Nov-2016 Inactive PredniSONE 2.5 MG Oral Tablet 1 (one) Tablet qd for 0 days Quantity: 30 {Tablet} Refills: 6 Ordered:29-Nov-2016 YURIY Vernon Start : 24-Oct-2016 End : 29-Nov-2016 Inactive PredniSONE 5 MG Oral Tablet 1 1/2 Tablet qd for 0 days Quantity: 45 {Tablet} Refills: 3 Ordered:07-Mar-2017 Cherie Fountain Start : 17-Jun-2016 End : 07-Mar-2017 Inactive Comments:take with food in am ProAir HFA 108 (90 Base) MCG/ACT Inhalation Aerosol Solution 2 (two) Aerosol Soln qid, prn for 0 days Quantity: 1 {Inhaler} Refills: 0 Ordered:05-Dec-2017 Long Heather SHANE Start : 17-Apr-2017 End : 05-Dec-2017 Inactive PYRIDIUM, 200MG (Oral Tablet) 1 (one) Tablet Tablet bid/prn for 0 days Quantity: 6 {Tablet} Refills: 0 Ordered:25-Sep-2014 YURIY Vernon Start : 12-Sep-2013 End : 25-Sep-2014 Inactive Skelaxin 800 MG Oral Tablet 1 tab tid (800 MG) Inactive SYNTHROID, 175MCG (Oral Tablet) 1 Tablet qd for 30 days Quantity: 30 {Tablet} Refills: 2 Ordered:28-May-2012 Patito Tineo Start : 03-Jan-2012 End : 28-May-2012 Inactive ValACYclovir HCl 1 GM Oral Tablet 1 (one) Tablet tid for 7 days Quantity: 21 {Tablet} Refills: 0 Ordered:22-Sep-2017 Zaheer SAMUEL Hue Start : 22-Sep-2017 End : 29-Sep-2017 Inactive VALIUM, 5MG (Oral Tablet) 1 tab q hs (5 MG) Inactive ZITHROMAX Z-SHERRI, 250MG (Oral Tablet) 1 Tablet TAD for 0 days Quantity: 1 {Package(s)} Refills: 0 Ordered:19-Feb-2013 Cherie Fountain Start : 28-Jan-2013 End : 19-Feb-2013 Inactive AMOXICILLIN, 875MG (Oral Tablet) 1 Tablet bid for 0 days Quantity: 20 {Tablet} Refills: 0 Ordered:20-May-2011 Patito Tineo Start : 20-May-2011 End : 20-May-2011 Discontinued B Complex Oral Tablet 1 Daily for 0 days Refills: 0 Ordered:12-Oct-2016 Patito Tineo End : 12-Oct-2016 Discontinued Cefdinir 300 MG Oral Capsule 1 (one) Capsule bid for 0 days Quantity: 20 {Capsule} Refills: 0 Ordered:28-Dec-2015 Patito Tineo Start : 16-Dec-2015 End : 28-Dec-2015 Discontinued CHERATUSSIN AC, 100-10MG/5ML (Oral Syrup) 1-2 Teaspoon qhs prn for 0 days Quantity: 6 {Ounce} Refills: 0 Ordered:06-Mar-2015 Patito Tineo Start : 09-Feb-2015 End : 06-Mar-2015 Discontinued Comments:three hundred CYMBALTA, 20MG (Oral Capsule Delayed Release Particles) 1 (one) Capsule DR Part qam for 0 days Quantity: 90 {Capsule_DR_Part} Refills: 3 Ordered:13-Feb-2012 Fast DO, Martha AFast DO, Martha A Start : 13-Feb-2012 End : 13-Feb-2012 Discontinued CYMBALTA, 30MG (Oral Capsule Delayed Release Particles) 1 (one) Capsule DR Part qd for 90 days Quantity: 90 {Capsule_DR_Part} Refills: 3 Ordered:27-Apr-2011 Fast DO, Martha AFast DO, Martha A Start : 27-Apr-2011 End : 27-Apr-2011 Discontinued FLAVOXATE HCL, 100MG (Oral Tablet) 1 Tablet tid prn for 0 days Quantity: 15 {Tablet} Refills: 0 Ordered:02-Nov-2012 Fast DO, Martha AFast DO, Martha A Start : 02-Nov-2012 End : 02-Nov-2012 Discontinued FLEXERIL, 10MG (Oral Tablet) 1 Tablet qhs prn for 0 days Quantity: 10 {Tablet} Refills: 0 Ordered:27-Apr-2011 Fast DO, Martha AFast DO, Martha A Start : 27-Apr-2011 End : 27-Apr-2011 Discontinued Comments:ten FOLIC ACID, 1MG (Oral Tablet) 1 tab qd (1 MG) End : 17-Jun-2014 Discontinued GUAIATUSSIN AC, 100-10MG/5ML (Oral Syrup) 1-2 Teaspoon(s) three times daily, as needed for 0 days Quantity: 6 {Ounce(s)} Refills: 0 Ordered:18-Sep-2009 Patito Tineo Start : 31-Jul-2009 End : 23-Dec-2009 Discontinued Comments:Medication taken as needed. This order discontinued per [facility]. LevoFLOXacin 500 MG Oral Tablet 1 (one) Tablet qd for 0 days Quantity: 10 {Tablet} Refills: 0 Ordered:01-Sep-2016 Patito Tineo Start : 08-Aug-2016 End : 01-Sep-2016 Discontinued Methotrexate 2.5 MG Oral Tablet 7 Tablet once a week for 0 days Quantity: 20 {Tablet} Refills: 3 Ordered:27-Jun-2016 Patito Tineo Start : 02-Nov-2012 End : 27-Jun-2016 Discontinued Montelukast Sodium 10 MG Oral Tablet 1 (one) Tablet q hs for 0 days Quantity: 30 {Tablet} Refills: 3 Ordered:12-Oct-2016 Patito Tineo Start : 08-Aug-2016 End : 12-Oct-2016 Discontinued MULTIVITAMIN (PO Tab) 1 Daily for 0 days Refills: 0 Ordered:25-Sep-2014 YURIY Vernon End : 25-Sep-2014 Discontinued Comments:This order discontinued per [facility]. NASONEX, 50MCG/ACT (Nasal Suspension) 2 (two) Suspension sprays each nostril daily for 0 days Quantity: 1 {Suspension} Refills: 0 Ordered:15-Aug-2012 Fast DOFrana Lizzy DO, Martha A Start : 15-Aug-2012 End : 15-Aug-2012 Discontinued NEXIUM, 40MG (Oral Capsule Delayed Release) [address] bid for 0 days Quantity: 60 {Capsule_DR} Refills: 3 Ordered:27-Apr-2011 DOMartha DO, Martha A Start : 27-Apr-2011 End : 27-Apr-2011 Discontinued Comments:1 hour before bed- failed omeprazole and pepcid [place] 3 1200 MG Oral Capsule 2 qd for 0 days Refills: 0 Ordered:12-Oct-2016 Patito Tineo End : 12-Oct-2016 Discontinued Omeprazole 40 MG Oral Capsule Delayed Release [address] qd for 0 days Quantity: 30 {Capsule} Refills: 3 Ordered:27-Jun-2016 Patito Tineo Start : 03-Feb-2015 End : 27-Jun-2016 Discontinued PEPCID, 20MG (Oral Tablet) 1 Tablet in am for 0 days Quantity: 30 {Tablet} Refills: 3 Ordered:20-May-2011 Patito Tineo Start : 20-May-2011 End : 20-May-2011 Discontinued PERCOCET, 7.5-500MG (Oral Tablet) 1 Tablet q 6 hours prn for 0 days Quantity: 60 {Tablet} Refills: 0 Ordered:20-May-2011 Patito Tineo Start : 20-May-2011 End : 20-May-2011 Discontinued Comments:sixty PREDNISONE, 10MG (Oral Tablet) 1 (one) Tablet bid x 3 day one daily x 3 days. 1/2 x 3 days for 0 days Quantity: 11 {Tablet} Refills: 0 Ordered:06-Mar-2015 Patito Tineo Start : 09-Feb-2015 End : 06-Mar-2015 Discontinued Comments:with food Restasis 0.05 % Ophthalmic Emulsion 2 drops each eye BID for 0 days Refills: 0 Ordered:12-Oct-2016 Patito Tineo End : 12-Oct-2016 Discontinued Robaxin 500 MG Oral Tablet 2 (two) Tablet tid, prn for 30 days Quantity: 90 {Tablet} Refills: 0 Ordered:27-Jun-2016 Patito Tineo Start : 14-Oct-2013 End : 27-Jun-2016 Discontinued Comments:Dr. Hazel Simvastatin 40 MG Oral Tablet 1 (one) Tablet q jesu meal for 0 days Quantity: 90 {Tablet} Refills: 3 Ordered:29-Nov-2016 Fast DO, Martha AFast DO, Martha A Start : 29-Nov-2016 End : 29-Nov-2016 Discontinued Dispense as Written TESSALON PERLES, 100MG (Oral Capsule) 1 Capsule tid for 0 days Quantity: 30 {Capsule} Refills: 0 Ordered:13-Jul-2010 Patito Tineo Start : 13-Jul-2010 End : 13-Jul-2010 Discontinued TRAZODONE HCL, 50MG (Oral Tablet) 1 Tablet qhs 1 hour before bedtime prn for 0 days Quantity: 90 {Tablet} Refills: 3 Ordered:27-Jun-2014 Pattio Tineo Start : 17-Jun-2014 End : 27-Jun-2014 Discontinued Ventolin HFA 108 (90 Base) MCG/ACT Inhalation Aerosol Solution 2 (two) Puff tid prn for 0 days Quantity: 1 {Inhaler} Refills: 0 Ordered:27-Jun-2016 Patito Tineo Start : 06-Mar-2015 End : 27-Jun-2016 Discontinued VICODIN, 5-500MG (Oral Tablet) 1-2 tabs Tablet Q 4-6 HRS PRN for 30 days Quantity: 60 {Tablet} Refills: 1 Ordered:18-Oct-2011 Cherie Fountain Start : 18-Oct-2011 End : 19-Feb-2013 Discontinued Comments:This order discontinued per [facility]. ZANAFLEX, 2MG (Oral Capsule) 1-2 caps tid, prn (2 MG) End : 09-Mar-2016 Discontinued ZITHROMAX, 250MG (Oral Tablet) 2 (two) Tablet today then 1 qd for 10 days for 0 days Quantity: 12 {Tablet} Refills: 0 Ordered:18-Oct-2011 Patito Tineo Start : 18-Oct-2011 End : 18-Oct-2011 Discontinued Allergies and Adverse Reactions Name Dates Details Gabapentin *ANTICONVULSANTS* Status: Active (Allergy) Comments: confusion and cannot sleep, swelling No Known Allergies (Allergy) Onset: 17-Dec-2012 Status: Inactive No Known Drug Allergies (Allergy) Status: Inactive Past Medical History Name Dates Details Abdominal pain, acute, left upper quadrant (R10.12, 789.02) Status: Inactive as of 25-Sep-2014 Abnormal EEG (R94.01, 794.02) Comments: having braswell look at Status: Inactive as of 10-Nov-2017 Abnormal urine (R82.90, 791.9) Status: Inactive as of 31-Jul-2009 Acute nonintractable headache, unspecified headache type (R51, 784.0) Severity: Severe Comments: think might be multifactorial as has had neck issues- she seeing neuro monday- her facial pain not as prominent- was thinking maybe had trigeminal neuralgia Status: Resolved as of 29-Nov-2016 Acute sinusitis, unspecified (J01.90, 461.9) Status: Resolved as of 26-Aug-2009 Adrenal disorder, other (E27.9, 255.9) Status: Inactive as of 25-Sep-2014 Allergic rhinitis (J30.9, 477.9) Comments: samples rhinocort she not want to do allergy testing Status: Inactive as of 07-Mar-2017 Atypical chest pain (R07.89, 786.59) Status: Resolved as of 29-Nov-2016 BMI 23.0-23.9, adult (Z68.23, V85.1) Status: Inactive as of 28-Jun-2017 BMI 23.0-23.9, adult (Z68.23, V85.1) Status: Inactive as of 05-Dec-2017 BMI 24.0-24.9, adult (Z68.24, V85.1) Status: Inactive as of 01-Nov-2017 BMI 28.0-28.9,adult (Z68.28, V85.24) Status: Inactive as of 08-Jan-2018 BMI between 19-24,adult (V85.1) Status: Resolved as of 29-Nov-2016 BMI between 19-24,adult (V85.1) Status: Resolved as of 29-Nov-2016 Bronchitis (J40, 490) Comments: ?mycoplasma Status: Resolved as of 18-Sep-2009 Bronchitis, acute (J20.9, 466.0) Status: Resolved as of 02-Sep-2013 Bursitis of hip, unspecified laterality (726.5) Status: Inactive as of 07-Mar-2017 Candidiasis of mouth (B37.0, 112.0) Status: Resolved as of 22-Aug-2011 Chest pain (R07.9, 786.59) Status: Resolved as of 02-Sep-2013 Cough (R05, 786.2) 28-Jun-2011 Status: Resolved as of 02-Sep-2013 Cough (R05, 786.2) Status: Resolved as of 05-Jun-2015 Dysphagia, unspecified (R13.10, 787.20) Status: Inactive as of 25-Sep-2014 Dysphagia, unspecified dysphagia (787.20) Comments: improved Status: Inactive as of 25-Sep-2014 Dysuria (R30.0, 788.1) Status: Inactive as of 25-Sep-2014 Dysuria (R30.0, 788.1) Status: Inactive as of 25-Sep-2014 Eustachian tube dysfunction (H69.80, 381.81) Status: Inactive as of 25-Sep-2014 Fatigue (R53.83, 780.79) Status: Inactive as of 25-Sep-2014 Fatigue (R53.83, 780.79) Comments: await ebv Status: Inactive as of 10-Nov-2017 Hematuria (R31.9, 599.7) Status: Inactive as of 25-Sep-2014 Hyponatremia (E87.1, 276.1) Comments: chronic stable-continue present regimen Status: Inactive as of 10-Nov-2017 inflammatory arthritis- following with valenke Status: Inactive as of 25-Sep-2014 Ingrown toenail of left foot with infection (L60.0, 703.0) Status: Inactive as of 10-Nov-2017 Joint pain (M25.50, 719.40) Status: Resolved as of 29-Nov-2016 Low back pain (M54.5, 724.2) Comments: taking Valium and Baclofen and sees pain management Status: Inactive as of 21-Apr-2017 Neck pain (M54.2, 723.1) Comments: improved Status: Resolved as of 29-Nov-2016 Need for prophylactic vaccination and inoculation against influenza (Z23, V04.81) Status: Inactive as of 25-Sep-2014 Need for prophylactic vaccination and inoculation against influenza (Z23, V04.81) Status: Inactive as of 02-Sep-2013 Neoplasm of uncertain behavior of skin (D48.5, 238.2) Status: Inactive as of 25-Sep-2014 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 (C44.390, 173.39) Status: Inactive as of 10-Nov-2017 PAIN IN THORACIC SPINE (M54.6, 724.1) Status: Inactive as of 21-Apr-2017 Pain in unspecified hip (M25.559, 719.45) Comments: improving Status: Inactive as of 21-Apr-2017 Pain of upper extremity, unspecified laterality (M79.603, 729.5) Status: Resolved as of 29-Nov-2016 Palpitations (R00.2, 785.1) Comments: holter monitor normal Status: Inactive as of 25-Sep-2014 Pharyngitis (Renamed from Pharyngeal inflammation) (J02.9, 462) Status: Resolved as of 02-Sep-2013 Pneumonia (J18.9, 486) Status: Resolved as of 05-Jun-2015 Pneumonia, bacterial (J15.9, 482.9) Status: Resolved as of 05-Jun-2015 postmenopausal without estrogen Status: Inactive as of 25-Sep-2014 Preoperative examination (Z01.818, V72.84) Status: Inactive as of 25-Sep-2014 Removal of staple (Z48.02, V58.32) Status: Resolved as of 14-Oct-2013 Right lower lobe pneumonia (J18.1, 486) Status: Inactive as of 10-Nov-2017 screening Status: Inactive as of 13-Jul-2010 Screening for breast cancer (Z12.39, V76.10) Status: Inactive as of 25-Sep-2014 Screening for breast cancer (Z12.39, V76.10) Status: Inactive as of 02-Sep-2013 Shingles (B02.9, 053.9) Status: Inactive as of 21-Apr-2017 Sinusitis (J32.9, 473.9) Status: Inactive as of 10-Nov-2017 Syncope (R55, 780.2) Comments: working on vasovagal sx- but still working up - for adrenal insuff with thyroid off fatigue ect Status: Resolved as of 02-Sep-2013 thickening of pericardium Status: Inactive as of 25-Sep-2014 Thrush (B37.0, 112.0) Status: Inactive as of 10-Nov-2017 Unspecified bacterial pneumonia (J15.9, 482.9) Status: Resolved as of 22-Aug-2011 Unspecified Diagnosis Status: Inactive as of 02-Sep-2013 Unspecified Diagnosis Status: Inactive as of 02-Sep-2013 Unspecified Diagnosis Status: Inactive as of 25-Sep-2014 Upper Respiratory Infection (J06.9, 465.9) Status: Inactive as of 25-Sep-2014 Urinary frequency (R35.0, 788.41) Status: Inactive as of 25-Sep-2014 Urinary frequency (R35.0, 788.41) Status: Resolved as of 29-Nov-2016 Vasovagal syncope (R55, 780.2) Status: Inactive as of 25-Sep-2014 Well woman exam (Z01.419, V72.31) Status: Inactive as of 13-Jul-2010 Wrist pain, acute, right (M25.531, 719.43) Status: Inactive as of 10-Nov-2017 Procedures Procedure Dates Details Appendectomy Completed Breast biopsy Completed cervical fusion anterior approach 2010 Completed Colonoscopy Completed Comments: 2004 ? Dilation And Curettage Of Uterus Completed Hysterectomy Completed Hysterectomy; Abdominal Completed Comments: 1995- complete - no cancer L5-S1- had fracture and repaired/ fusion Completed there too Comments: 2004 Date Value Details 08-Jan-2018 Abdomen/Pelvis without Cont Result: Comments: See Note; NOTES: [facility] Imaging Services [address] [place] [address] Abdomen/Pelvis without Cont MR#: [id number] Acct: [id number] Name: TITA LAW Rep #: [id number] : 1960 F 57 From: Barrera Galeana MD PCP: Martha Brown DO Status: REG CLI Study: Abdomen/Pelvis without Cont Date of Exam: 01/08/18 Exam# [id number] Ordering Dr: Martha Brown DO S TUDY: CT ABDOMEN AND PELVIS WITHOUT CONTRAST REASON FOR EXAM: Female, 57 years old. Right flank pain and hematuria. RADIATION DOSAGE (If Supplied By Facility): CTDIvol = ( 10.70 ) mGy, DLP = ( 532 ) m Gycm TECHNIQUE: Transaxial images were obtained from the dome of the diaphragm to the symphysis pubis without oral contrast, and without intravenous contrast. Sagittal and coronal images were reconstru cted. Individualized dose optimization techniques were used for this CT. COMPARISON: Comparison is made with prior study dated June 02, 2016. FINDINGS: Calcified granuloma in the right midlung. Stable small pericardial effusion worse posteriorly. Normal liver. Normal gallbladder and extrahepatic biliary system. There are multiple benign calcified granulomata of the spleen. Normal pancreas. There is a small, circumscribed, smooth, low attenuation right adrenal mass, consistent with an adrenal adenoma. This measures 1.6 cm. Normal left adrenal gland. Normal r ight kidney. Normal left kidney. Normal visualized stomach. Normal small intestine. Normal colon. There are surgical clips in the region of the appendix consistent with a prior appendectomy. There is scattered atherosclerotic calcification of the abdominal aorta, without a demonstrated aneurysm. Normal inferior vena cava. Normal retroperitoneum. There is evidence of a cystocele. There is absence of the uterus consistent with a prior hysterectomy. Normal abdominal wall. The patient is status post laminectomy and interpedicular screw fixation at the L5- S1 level. Grade 1 anterior listhesis of L5 on S1 CT/Abdomen/Pelvis without Cont IMPRESSION: Small left adrenal adenoma. Stable small pericardial effusion. Status post hysterectomy. Cystocele . Electronically Signed: Barrera Galeana MD at 13:09 EST Tel [phone], Service support , CC: Martha Brown DO Painting Supervisor: Signed 30-Dec-2017 Urgent Care Visit Report Result: Comments: See Note; NOTES: [facility] [address] [place] [address] OFFICE VISIT Date of Service: 12/30/17 MR#: [id number] Acct: [id number] Name: TITA LAW Rep #: [id number] : 1960 Provider: APPLE Casiano Age/Sex: 57/F Location: [email or web address] Status: Signed Intake Vital Signs12/30/17 Height 5 ft 6.25 in Intake Visit Reasons: Urinary tract infection Chief Complaint: UTI symptoms. Bleeding, cramping, urgency. Is patient in pain?: Yes Allergies No Known Allergies Allergy (Verified 04/15/17 15:28) Medications Escitalopram Oxalate [Lexapro] 20 mg PO QHS 12/24/15 [History Confirmed 03/15/16] Folic Acid 2 mg PO DAILY 12/24/15 [History Confirmed 03/15/16] Gabapentin 800 mg PO TID 12/24/15 [History Confirmed 03/15/16] Hydrocodone/Acetaminophen [Mg din Es 7.5-300 mg Tablet] 1 tab PO Q8H PRN PRN 12/24/15 [History Confirmed 03/15/16] Levothyroxine Sodium [Synthroid] 150 mcg PO DAILY 12/24/15 [History Confirmed 03/15/16] Liothyronine Sodium [Cytomel] 5 mcg PO DAILY 12/24/15 [History Confirmed 03/15/16] Lorazepam 0.5 mg PO DAILY PRN PRN 12/24/15 [History Confirmed 03/15/16] Methotrexate Sodium [Methotrexate] 15 mg PO QWEEK 12/24/15 [History Confirme d 03/15/16] Simvastatin [Zocor] 20 mg PO QHS 12/24/15 [History Confirmed 03/15/16] busPIRone [Buspar] 20 - 30 mg PO TID PRN 12/24/15 [History Confirmed 03/15/16] Metaxalone [Skelaxin] 800 mg PO DAILY [History Confirmed 03/15/16] predniSONE tablet 7.5 mg PO DAILY 03/15/16 [History Confirmed 03/15/16] levoFLOXacin tablet [Levaquin] 500 mg PO DAILY #7 tab 04/15/17 [Rx] cephalexin 500 mg tablet 5 00 mg PO Q12H 7 Days #14 tab 12/30/17 [Rx Confirmed 12/30/17] PFSH Social History Smoking Status: Current every day smoker HPI HPI Chief Complaint: UTI symptoms. Bleeding, cramping, urgency. Deta ils: TITA LAW, is a 57 F who presents to the office today for acute urinary symptoms times 2 days. She states this morning she urinated blood with clots on her initial void. Since then her urine has been more clear. She does not see visible blood at this time. She contacted her primary care physician who instructed her to go to the urgent care. ROS Const Constitutional: No chills or fever(s) Eyes Eyes: No change in vision ENT ENT: No ear pain, sore throat, nasal congestion or nasal discharge Resp Respiratory: No cough, chest congestion, shortness of breath or wheezing Cardio Cardiology: No chest pain at rest or chest pain with exertion Gastro GI: No abdominal pain, diarrhea, vomiting or nausea/dyspepsia Genitourinary-Female: Positive for burning urination, painful urination, urinary u rgency, urinary frequency and blood in urine; no urinary incontinence Musc Musculoskeletal: No back pain or abnormal walking Skin Skin: No rash or change in skin color Neuro Neurology: No confusion, abn ormal walking or abnormal speech Psych Psychiatric: No confusion Aller/Imm Allergy/Immunologic: No wheezing Exam Const General: healthy appearing, no acute distress Orientation: oriented x3, oriented to person, oriented to place, oriented to time [facility] Head: normocephalic Ears: external ears normal, TM's normal bilaterally, EAC's normal Eyes General: appearance normal, both eyes and all related stru ctures Conjunctivae: conjunctivae normal Sclera: sclerae normal Pupils: PERRL Neck Neck: no lymphadenopathy Thyroid: thyroid normal Chest Chest palpation AND inspection: normal inspection of the chest R precious Effort AND Inspection: normal respiratory effort, no cough, no respiratory distress Auscultation: Bilateral: Clear to Auscultation Cardio Rate: regular rate Rhythm: regular rhythm GI Inspection: nor mal to inspection Auscultation: normal bowel sounds Palpation: no hepatosplenomegaly, no splenomegaly, no masses Skin General: no pallor Rashes: no rashes Nails: no clubbing Neuro General: oriented x3, gait normal Extrem General: normal to inspection, no pedal edema, no calf tenderness, normal gait, no edema, no cyanosis, no clubbing, no calf tenderness bilaterally, no pedal edema Psych Mood: congruen t mood Affect: normal affect Speech and Movement: speech and movement normal Assessment AND Plan 1. Acute cystitis with hematuria N30.01 Plan Detail Other Medications New: Additional Comments Patichacha t patient was instructed to keep well-hydrated. Begin the medication as directed. If severe bleeding continues she was instructed to go to the emergency department. Follow-up with her primary care if ne eded. Return to the clinic if needed. Coding Level of Care Code Off vis,est,level 3 Diagnoses Acute cystitis with hematuria N30.01 Urinary tract infection type: acute cystitis Hematuria presence: with hematuria 12/30/17 1245 <Electronically signed by Joshua CHIU> Date Joshua CHIU Cosigner Signature: Date (if applicable) CC: 06-Nov-2017 Brain W/WO Contrast Result: Comments: See Note; NOTES: [facility] Imaging Services [address] [place] [address] Brain W/WO Contrast MR#: [id number] Acct: [id number] Name: TITA LAW Rep #: [id number] : 1960 F 57 From: Pedro Luis Akhtar MD PCP: Martha Brown DO Status: REG CLI Study: Brain W/WO Contrast Date of Exam: 11/06/17 Exam# [id number] Ordering Dr: Martha Brown DO STUDY: MRI BRAIN WITH AND WITHOUT CONTRAST REASON FOR EXAM: Female, 57 years old. Headache, confusion, off balance and vision change. TECHNIQUE: Standardized multiplanar fat and water weighted pulse sequences were obtained. 7 ml of Gadavist contrast material was administered intravenously for the contrast portion of the examination. COMPARISON: MRI brain with and without contrast 02/10/2016. ____ FINDINGS: Normal size of the ventricles and extra-axial spaces for the patient's age. Multiple subcortical white matter T2 FLAIR hyperintensity foci and in the left periatrial white matter are ch ronic findings and nonspecific. They are unchanged. There are no associated mass effects. Normal bilateral basal ganglia. Normal thalami. There is no extra- axial fluid accumulation. Normal flow voids within the major intracranial circulation suggesting patency by spin echo criteria. Normal venous enhancement. There is no enhancing intra-axial or extra-axial abnormality. Normal sella turcica, pituit chaz gland, infundibular stalk, optic chiasm and hypothalamus. Normal tectal plate and pineal gland. Normal midbrain, cherelle and medulla. Normal cerebellum. Normal basal cisterns. Normal bilateral tempora l bones. Normal bilateral internal auditory canals. No demonstrated orbital abnormality, within the constraints of a routine brain study. Normal visualized paranasal sinuses. Normal calvarium and skull base. Normal visualized soft tissue structures. Normal visualized upper cervical spine. MRI/Brain W/WO Contrast IMPRESSION: 1. No MRI evidence o f acute or subacute ischemic infarct. 2. No MRI evidence of remote cortical-based ischemic infarct or old lacunar cystic infarcts. 3. Multiple chronic nonspecific white matter T2 FLAIR hyperintensity foci in both cerebral hemispheres. Possibilities include migraine related changes, small vessel disease and vasculitis. They are atypical for MS plaques. 4. No enhancing lesions intraaxially and extra- axially. 5. No interval change when compared to 02/10/2016. Electronically Signed: Pedro Luis Akhtar MD at 16:03 EDT , Service support , CC: Martha Brown DO Painting Supervisor: Signed 31-Aug-2017 SCREENING MAMM (CAD), BILAT Result: Comments: See Note; NOTES: [facility] Imaging Services [address] [place] [address] SCREENING MAMM (CAD), BILAT MR#: [id number] Acct: [id number] Name: TITA LAW Rep #: [id number] : 1960 F 57 From: Barrera Galeana MD PCP: Martha Brown DO Status: REG CLI Study: SCREENING MAMM (CAD), BILAT Date of Exam: 08/31/17 Exam# [id number] Ordering Dr: Martha Brown DO MAMMOGRAPHY - BILATERAL SCREENING REASON FOR EXAM: Female, 57 years old. Routine annual screening examination. PERTINENT HISTORY: Mother with breast cancer. Left breast tenderness. TECHNIQUE: Digital bilateral breast katia (3D mammographic acquisition) in the CC and MLO projections. 2-D mediolateral oblique (MLO) and craniocaudad (CC) views of both breasts were obtained. CAD: Full Field Digital Mamm ography with Computer Added Detection was performed. COMPARISON: Comparison is made with prior study dated August 29, 2016 and August 27, 2015. FINDINGS: Breast Composit ion: There are scattered areas of fibroglandular density. There are no dominant masses or suspicious calcifications. A tissue clip marker is once again seen in the upper deep lateral portion of the lef t breast. No other significant abnormalities are identified. There has been no significant change since the prior study. BI/SCREENING MAMM (CAD) , BILAT IMPRESSION: Stable bilateral screening mammogram. Yearly follow-up mammogram recommended. (A) ASSESSMENT CATEGORY: BIRADS Category 2: Benign. A letter regar ding these results will be sent to the patient by the facility within 30 days. Approximately 10% of breast cancers are not detected by mammography. A normal mammogram should not delay biopsy of a clini griselda suspicious abnormality. [id number] Electronically Signed: Barrera Galeana MD at 14:24 EDT Tel [phone], Service support , CC: Martha Brown DO Painting Supervisor: Signed 31-Aug-2017 Dexa Bone Density Study Result: Comments: See Note; NOTES: [facility] Imaging Services [address] [place] [address] Dexa Bone Density Study MR#: [id number] Acct: [id number] Name: TITA LAW Rep #: [id number] : 1960 F 57 From: Barrera Galeana MD PCP: Martha Brown DO Status: REG CLI Study: Dexa Bone Density Study Date of Exam: 08/31/17 Exam# [id number] Ordering Dr: Martha Brown DO STUDY: D UAL ENERGY X-RAY ABSORPTIOMETRY / DXA REASON FOR EXAM: Female, 57 years old. The patient is postmenopausal. Loss of height. TECHNIQUE: Bone Mineral Density (BMD) measurements of lumbar spine and right hip were obtained. COMPARISON: Comparison is made with prior study dated August 27, 2015. FINDINGS: Lumbar Spine (L1-L4): g/cm2 (0.957) / T-score (-1.9) / Z-score ( -1.1) Findings are suggestive of osteopenia with a moderate fracture risk. Left Femur Total: g/cm2 (0.650) / T-score (-2.8) / Z-score (-2.2) Left Femoral Neck: g/cm2 (0.644) / T-score (-2.8) / Z-score (-1.8) The T-Scores on the most recent prior examination were: Lumbar Spine (L1-L4): There has been improvement of bone density since the previous examination. Left Femur Total: which represents an i mprovement of 8.2%. BD/Dexa Bone Density Study IMPRESSION: The patient is considered osteoporotic as outlined below according to World Tod Org anization (WHO) criteria with a high fracture risk. There has been improvement of bone density since the previous examination. Reference Information: The T-score is the number of standard deviations above or below the standard which is normal for young adults at their peak bone mineral density. The World Health Organization (WHO) interprets the T-scores as follows : Above -1 Normal bone density Between -1 and -2.5 Osteopenia Equal to / or below -2.5 Osteoporosis As a practical clinical guideline, osteopenia may be graded as follows: Mild -1 through -1.5 Moderat e -1.6 through -2.0 Severe -2.1 through -2.4 The Z-score is the number of standard deviations above or below age-matched controls. A Z-score of less than -1.5 would be considered abnormal. References: 1. NIH Osteoporosis and Related Bone Diseases http://www.osteo.org 2. International Society for Clinical Densitometry http://www.iscd.org 3. National Osteoporosis Foundation http://www.nof.org Electro nically Signed: Barrera Galeana MD at 15:16 EDT Tel [phone], Service support , CC: Martha Brown DO Painting Supervisor: Signed 27-Jul-2017 PT D/C Summary (1) Result: Comments: See Note; NOTES: [facility] [address] [place] [address]. [address] [place] [address] Fax [facility] [place] SUMMARY MR#: [id number] Acct: [id number] Name: TITA LAW Rep #: [id number] : 1960 57 From: Alan Miller PT, Cert. PARRISH, OCS Referring Dr.: Maddie MCRAE Prebish Status: REG RCR Insu zafar: [facility] [employer] PA[employer] INSURANCE HP - PT D/C Summary It has been my pleasure to treat TITA LAW under orders from THOR Ridley, for the diagnosis of L-IVDD,L-STENOSIS,L-SP ONDYLOPATHY,MYALGIA for a total of 8 visit(s). Discharge Date: Please see the following information for a summary of their discharge status. - Subjective Subjective: Some better today .Plan to SEE s urgoen for mylogram - Pain Bilateral Neck Pain Intensity (Out of 10): 5 Bilateral Shoulder Pain Intensity (Out of 10): 5 Bilateral Buttocks Pain Intensity (Out of 10): 5 Bilateral Lower Extremity Pain Intensity (Out of 10): 5 - Objective Objective/Function: POSTURE: MILD FOWARD HEAD ,DECREASE LORDOSIS. GAIT: TG BRITTANY. MMT: QUADS/HAMS 4/5,HIP 4-/5,BUE GROSSLY 4/5 EXCEPT SHOULLDERS 4-/5. CERVICAL ROM: MOD LOSS. LUMBAR ROM: MOD LOSS - Goals Goal 1:: Independant with HEP as bunny Goal Progress: Progressing Goal 2:: Independant with posture for ADL'S Goal Progress: Progressing Goal 3 :: Decrease cervical and lumbar pain by 40% or greater to improve function. Goal Progress: Progressing Goal 4:: Increase strength BUE AND BLE to 4/5 nto improve function and ADL'S Goal Progress: Progres sing Goal 5:: Patient improve ablity to peform ADLS' and housework tasks with min limitaions. Goal Progress: Progressing - Plan Plan: RTD - D/C Information If there are questions or concerns regarding this patient's physical therapy, please feel free to call me at [phone]. Thank you for the referral of this patient. Sincerely, Alan Miller PT, <Electronically signed by Alan yuan PT, Cert. PARRISH, OCS> 07/27/17 4746 CC: Maddie Fernandezbish; Martha Brown DO JLA Signed 28-Jun-2017 Forearm 2 Views Result: Comments: See Note; NOTES: [facility] Imaging Services [address] [place] [address] Forearm 2 Views MR#: [id number] Acct: [id number] Name: ANITITA Montalvo Rep #: [id number] : 1960 F 56 From: Jam Thomas MD PCP: Martha Brown DO Status: REG CLI Study: Forearm 2 Views Date of Exam: 06/28/17 Exam# [id number] Ordering Dr: Martha Brown DO STUDY: X-RAY - RIGHT RADIUS A ND ULNA REASON FOR EXAM: Female, 56 years old. Patient fell 2 weeks ago. Pain. TECHNIQUE: 2 view(s) of the forearm. COMPARISON: None. FINDINGS: There is no demons trated soft tissue swelling. Normal visualized radius. Normal visualized ulna. RAD/Forearm 2 Views IMPRESSION: Normal x-ray examination of the r adius and ulna. Electronically Signed: Jam Thomas MD at 2:41 EDT Tel , Service support , CC: Martha Brown DO Painting Supervisor: Signed 28-Jun-2017 Wrist min 3 Views Result: Comments: See Note; NOTES: [facility] Imaging Services [address] [place] [address] Wrist min 3 Views MR#: [id number] Acct: [id number] Name: ANITITA Rita Rep #: [id number] : 1960 F 56 From: Jam Thomas MD PCP: Martha Brown DO Status: REG CLI Study: Wrist min 3 Views Date of Exam: 06/28/17 Exam# [id number] Ordering Dr: Martha Brown DO STUDY: X-RAY - RIGHT WRIS T REASON FOR EXAM: Female, 56 years old. Patient fell 2 weeks ago. Pain. TECHNIQUE: 3 view(s) of the wrist were obtained. COMPARISON: None. FINDINGS: Normal visua lized distal radius and ulna. Normal radiocarpal articulation. Normal distal radioulnar articulation. Normal carpal bones. Normal carpal articulations. Normal carpometacarpal articulation of the thumb. Normal second through fifth carpometacarpal articulations. Normal visualized metacarpal bones. The soft tissue structures are unremarkable. There is no demonstrated acute fracture. There are well-def ined bony densities distal to the ulnar styloid which could represent nonfused ossification centers or old nonunited fracture. RAD/Wrist min 3 Vi ews IMPRESSION: No demonstrated acute osseous changes. Electronically Signed: Jam Thomas MD at 2:43 EDT Tel , Service support , CC: Martha Brown DO Painting Supervisor: Signed 28-Jun-2017 Brain/Head without Contrast Result: Comments: See Note; NOTES: [facility] Imaging Services [address] [place] [address] Brain/Head without Contrast MR#: [id number] Acct: [id number] Name: TITA LAW Rep #: [id number] : 1960 F 56 From: Krzysztof Rivera MD PCP: Martha Brown DO Status: REG CLI Study: Brain/Head without Contrast Date of Exam: 06/28/17 Exam# [id number] Ordering Dr: Martha Brown DO STUDY : CT BRAIN WITHOUT CONTRAST REASON FOR EXAM: Female, 56 years old. Fall. RADIATION DOSAGE (If Supplied By Facility): CTDIvol = ( 44.99 ) mGy, DLP = ( 846.73 ) mGycm TECHNIQUE: Transaxial CT imaging o f the brain was performed without administration of intravenous contrast material. Individualized dose optimization techniques were used for this CT. COMPARISON: None. ___ FINDINGS: Normal soft tissue structures. Normal calvarium. Normal size ventricles and extra-axial spaces for the patient's age. Normal white matter tracts of the cerebral hemispheres. Normal basal ganglia and thalami. Normal brainstem. Normal cerebellum. There is no intracranial hemorrhage. There are no findings of an acute ischemic infarction. Normal visualized paranasal sinuses. CT/Brain/Head without Contrast IMPRESSION: Normal unenhanced CT scan of the brain. Electronically Signed: Yovanny Rivera MD at 16:17 EDT , Service support , CC: Martha Brown DO Painting Supervisor: Signed 01-May-2017 Chest PA and Lateral Result: Comments: See Note; NOTES: [facility] Imaging Services [address] [place] [address] Chest PA and Lateral MR#: [id number] Acct: [id number] Name: ANITITA Rita Rep #: [id number] : 1960 F 56 From: Murray Palma MD PCP: Martha Brown DO Status: REG CLI Study: Chest PA and Lateral Date of Exam: 05/01/17 Exam# [id number] Ordering Dr: Martha Brown DO STUDY: X-RAY CHEST R SAUMYA FOR EXAM: Female, 56 years old. Follow-up of right lower lobe pneumonia. TECHNIQUE: Frontal and lateral views of the chest. COMPARISON: April 15, 2017 FIN DINGS: There is mild hyperexpansion unchanged. The patchy opacity at the right base peripherally has resolved. There are healed granulomatous calcifications unchanged. There is no demonstrated pleural abnormality. Normal size heart. Normal mediastinum and sandra. Normal visualized pulmonary arteries. Normal visualized aortic arch and descending thoracic aorta. Normal visualized thoracic spine. Normal visualized ribs, clavicles, and shoulders. There is no demonstrated abnormality of the visualized soft tissue structures of the upper abdomen. RAD/Chest PA and Lateral IMPRESSION: Healing of right lower lobe pneumonia. No acute pathology. Electronically Signed: Murray Palma MD at 17:05 EST , Service support [phone], CC: Martha Brown DO Painting Supervisor: Signed 15-Apr-2017 Discharge Instruction Result: Comments: See Note; NOTES: [facility] Medical Records Department [address] [place] [address] Discharge Instruction 04/15/171812 MR#: [id number] Acct: [id number] Name: NEGIN MontalvoTITA Rep #: [id number] : 1960 56 From: Dusty Dumont MD PCP: Martha Brown DO Status: REG ER ED Disposition - Plan for ED Patient: Chief Complaint: Shortness of Breath Instructions: ED Pn [facility] Adult Prescriptions: Levofloxacin [Levaquin] 500 mg PO DAILY #7 tab Referrals: Martha Brown DO [Primary Care Provider] - What to do if you have Problems For any increased pain, shortness of b reath, bleeding, nausea or vomiting, chest pain, or any unexpected problems, contact your Primary Care Provider. Call [facility] ([phone]) or report to the closest Emergency Room. Call 911 if necessary. 04/15/171813 <Electronically signed by Dusty Dumont MD> Date Dusty Dumont MD Cosigner Signature (If Indicated): Ruben huertas CC: Martha Brown DO 15-Apr-2017 Emergency Department Summary Result: Comments: See Note; NOTES: [facility] Medical Records Department [address] [place] [address] Emergency Department Summary 04/15/17 1811 MR#: [id number] Acct: [id number] Name: TITA LAW Rep #: [id number] : 1960 56 From: Dusty Dumont MD PCP: Martah Brown DO Status: REG ER - ER Visit Summary Date of Service: 04/15/17 Chief Complaint: Flulike symptoms History of Present Illness: The patient is a 56 F who presents with flulike symptoms beginning in early March. She reports subjective fevers sore throat cough muscle aches joint aches and headache. She stat es she feels like she is just not breathing right. She does have some dyspnea on exertion. She denies any chest pain. She denies vomiting or diarrhea. She states she was initially improving but began wo rsening again earlier this week. She spoke to her primary care physician who was current concerned as she is immunosuppressed. She is currently on a long prednisone taper due to adrenal insufficiency. S he was previously on methotrexate but is not on this currently. Physical Examination: Afebrile vitals are unremarkable and within normal limits Moist mucous membranes Heart regular rate and rhythm Does have some scattered rhonchi and extra wheezes I do not appreciate rales she is in no distress she is able speak in full sentences without retractions Alert Test Results: CBC BMP unremarkable. Rapid in fluenza negative. Chest x-ray does show right lower lobe infiltrate. Emergency Department Course and Treatment: Patient does have a community-acquired pneumonia. Her vitals are normal and she has unrem arkable laboratory studies. I do believe she is a good candidate for outpatient treatment. She was given a prescription for Levaquin. She understands to return for new or worsening symptoms and was inst ructed on specific signs and symptoms to monitor for. She was discharged. Treatment Plan: [] Disposition: Discharge Impression: Community acquired pneumonia This note was generated with [employer] software. It may contain incorrect words, spelling, and punctuation that were not noted in review of the chart prior to signing ED Disposition - Plan for ED Patient: Chief Complaint: Shortness of Breath Referrals: Martha Brown DO [Primary Care Provider] - What to do if you have Problems For any increased pain, shortness of breath, bleeding, nausea or vomiting, chest pain, or any unexpecte d problems, contact your Primary Care Provider. Call [facility] ([phone]) or report to the closest Emergency Room. Call 911 if necessary. 04/15/171812 <Electronically signed by Art Dumont MD> Date Dusty Dumont MD Cosigner Signature (If Indicated): Date CC: Martha Brown DO 15-Apr-2017 Chest PA and Lateral Result: Comments: See Note; NOTES: [facility] Imaging Services [address] [place] [address] Chest PA and Lateral MR#: [id number] Acct: [id number] Name: TITA LAW Rep #: [id number] : 1960 F 56 From: Erasto Persaud MD PCP: Martha Brown DO Status: REG ER Study: Chest PA and Lateral Date of Exam: 04/15/17 Exam# [id number] Ordering Dr: Dusty Dumont MD STUDY: X-RAY CHEST REASON FOR EXAM: Female, 56 years old. INCREASED SHORTNESS OF BREATH, PT IS RECOVERING FROM THE FLU. SENT TO ED BY PCP FOR POSSIBLE PNUEMONIA TECHNIQUE: Frontal and lateral view of the chest. COMPAR MEKA: August 09, 2016 FINDINGS: Right lower lobe infiltrate. There is no demonstrated pleural abnormality. Normal size heart. Normal mediastinum and sandra. Normal vis ualized pulmonary arteries. Normal visualized aortic arch and descending thoracic aorta. There are diffuse degenerative changes of the visualized thoracic spine. Normal visualized ribs, clavicles, and shoulders. There is no demonstrated abnormality of the visualized soft tissue structures of the upper abdomen. RAD/Chest PA and Lateral IMPRESSI ON: Right lower lobe infiltrate. Electronically Signed: Erasto Persaud MD at 18:00 EST , Service support , CC: Martha Brown DO; Dusty Dumont MD Painting Supervisor: Signed 03-Apr-2017 Inital Evaluation (1) - PT Result: Comments: See Note; NOTES: [facility] [address] [place], [place] [id number] Fax REHABILITATION SERVICES INITIAL EVALUATION MR#: [id number] Acct: [id number] Name: TITA LAW Rep #: [id number] : 1960 56 From: Alan Miller PT, Cert. T, OCS Referring Dr.: Maddie Munoz Status: REG RCR Insur ance: [facility] SELF PAY INSURANCE Patient's Visit Information TITA LAW is a 56 year old F referred to Physical Therapy by THOR [facility] [employer]INE[employer].LPREBI with a diagnosis of L-IVDD,L- STENOSIS,L-SPONDYLOPATHY,MYALGIA. Date of Evaluation: 03/30/17 Physical Therapist: Alan Miller PT, - Visit Plan Frequency: 2x /Week Duration: 4 Weeks Plan: US,MHP CERVICAL -LUMBAR,ESTIM, MANUAL T HERAPY WITH STM/MYOFASCIAL CERVICAL /LUMBAR, PROGRESS WITH POSTURAL EX'S AND DLS ABLE - Subjective Subjective: This 56 y/o female presents to physical therapyLIVDD,LSTENOSIS,Lspondylothathy,myalgia. Patient has h/o cervical fusion 2010,lumbar surgery fusion 2004. Patient has had lum bar pain in cervical and lumbar with radicular worse in arms. Patient has parathesia/hands in hand right than left. Patient conts to have intermmtant symptos in legs. Patient has h/o compression fracture. Symptoms worse with walking ,standing,bending,lifting,sitting,driving. Patient has KENDALL/migraines . Patient has mus naet spasms in cervical-lumbar. Patient has had prior PT and water ex's in past. Pain affects sleeping. Denies tinnitus/nausea.Pain interfers with patient daily function uality of life from pain.Patient had MRI cervical . Paln to see surgeon. Coughing/seezing -. Bowel/bladder good.Patient has had injection epidural. VOCATION: home. SOCAIL: - Pain Bilateral Neck Pain Intensity (Out of 10): 4 Pain Intensity Range: 10 Bilateral Shoulder Pain Intensity (Out of 10): 5 Pain Intensity Range: 10 Comment: arms Bilateral Buttocks Pain Intensity (Out of 10): 4 Pain Intensity Range: 10 Bi lateral Lower Extremity Pain Intensity (Out of 10): 4 Pain Intensity Range: 10 - Objective POSTURE: guarded mild foward posture,reduce lordosis. GAIT: reciprocal gait ,normal brittany. PALPATION: tender UT/LEVATOR /paraspinals,L-S,ERECTOR SPINALS. BUE AROM: WFL. CERVICAL ROM: flexion min/mod loss,rotation /lateral flexion,mod loss ,extension mod loss. MMT: 4-5/ except shoulders 3+/5. LUMBAR ROM: flexi on mod loss,extension mod loss ,side glides mod loss. FLEXABLITY : hams min loss - Special Tests C/S Radiculapathy - Left Upper limb tension test: Negative C/S Radiculapathy - Right Upper limb tension test: Negative L/S Slump test left side: Negative L/S Slump test right side: Negative L/S Left Straight Leg Raise: Negative L/S Right Straight Leg Raise: Negative - Goals Goal 1:: Independant with HEP as bunny Goal Time Frame: 4-6 Weeks Goal 2:: Independant with posture for ADL'S Goal Time Frame: 4-6 Weeks Goal 3:: Decrease cervical and lumbar pain by 40% or greater to improve function. Goal Time Frame : 4-6 Weeks Goal 4:: Increase strength BUE AND BLE to 4/5 nto improve function and ADL'S Goal Time Frame: 4-6 Weeks Goal 5:: Patient improve ablity to peform ADLS' and housework tasks with min limitaion s. Goal Time Frame: 4-6 Weeks - Rehabilitation Potential Physical Therapy Diagnosis: This patient has multiple comormidities with cervical and lumbar fusion with chronic pain,spasms with poor ROM ,poor strength ,impairs function with ADL'S Rehabilitation Potential: Good - Anticipated Interventions Patient/Client Instruction: Educate patient on: Condition, Plan of Care For the Purpose of:: To decreas e pain, To improve muscle performance and motor function, To improve ability to perform ADL's, To increase tolerance to activity/condition/position, To improve ability of physical actions for home/commu nity/work/leisure, To improve health of tissue, To decrease soft tissue restriction, To increase flexibility/ROM, To improve health and function, To improve ability to perform tasks related to life christina gement Therapeutic Exercise to Include: Strength training, Postural training, Flexibilty training, Dynamic Lumbar Stabilization Comment: ABLE For the Purpose of:: To decrease pain, To increase ROM, T o improve muscle performance and motor function, To improve ability to perform ADL's, To increase tolerance to activity/condition/position, To improve ability of physical actions for home/community/work /leisure, To improve health of tissue, To decrease soft tissue restriction, To increase flexibility/ROM, To improve health and function, To improve ability to perform tasks related to life management Ma nual Therapy Techniques to Include: Massage, Soft tissue mobilization For the Purpose of:: To decrease pain, To increase ROM, To improve nutrient delivery to tissue, To increase oxygenation perfusion TE NS: Yes IF ES: Yes Cryotherapy (ice pack, ice massage): Yes Thermo therapy (hot pack): Yes Ultrasound (thermal/non thermal): Yes For the Purpose of:: To decrease pain, To improve nutrient delivery to ti ssue, To increase oxygenation perfusion, To improve health of tissue, To decrease soft tissue restriction Thank you for the opportunity to evaluate your patient. For Medicare and Medicare HMO plans , please review the plan of care and approve it. It will need to be FAXED BACK to us at [phone] for Medicare purposes. Please let me know if there are questions or concerns regarding this plan of care. Physician Signature: Date: <Electronically signed by Alan Miller PT, Cert. T, OCS> 04/03/17 1017 CC: Maddie Munoz; Martha Brown DO LISHA Signed For Medicare only, by signing this I certify the plan of care. Physicians Signature Date 08-Mar-2017 Thyroid Result: Comments: See Note; NOTES: [facility] Imaging Services [address] [place] [address] Thyroid MR#: [id number] Acct: [id number] Name: TITA LAW Rep #: [id number] : [birth year] F 56 From: Barrera Galeana MD PCP: Martha Brown DO Status: REG CLI Study: Thyroid Date of Exam: 03/08/17 Exam# [id number] Ordering Dr: Martha Brown DO STUDY: THYROID ULTRASOUND REASON FOR EXAM : Female, 56 years old. Thyroid nodule. TECHNIQUE: Ultrasound evaluation of the thyroid was performed with real-time and static mancia-scale imaging. COMPARISON: Comparison is made with prior study date d July 21, 2016. FINDINGS: RIGHT LOBE: The right lobe of the thyroid gland measures 3.3 cm x 1.1 cm x 1.0 cm. There is a heterogeneous echotexture. There is a 6 mm x 6 mm x 6 mm solid isoechoic nodule in the lower pole. This is unchanged. LEFT LOBE: The left lobe of the thyroid gland measures 2.7 cm x 1.2 cm x 0.8 cm. There is a heterogeneous echotexture. There is a 7 mm x 4 mm x 4 mm solid nodule in the midpole. ISTHMUS: The isthmus measures 2.0 mm. The regional lymph nodes are normal. US/Thyroid IMPRE SSION: Stable examination demonstrating heterogeneous echotexture of both lobes of thyroid with stable bilateral subcentimeters nodules. Electronically Signed: Barrera Galeana MD at 14:4 9 EST Tel [phone], Service support , CC: Martha Brown DO Painting Supervisor: Signed 06-Dec-2016 TXT - Blood Flow Screening Result: Comments: See Note; NOTES: [facility] Cardiovascular Services [address] [place] [address] 12/06/16 0815 MR#: [id number] Acct: [id number] Name: TITA LAW Rep #: [id number] : 1960 56 From: Shane Cotto MD Attending Dr: Martha Brown DO Status: REG REF Ordering Dr: Date: 12/06/16 Location: [facility] Sex: F C Admitted: Reason For Study: Bood flow screening Caroti d Duplex Ultrasound Abdominal Aorta The right maximum ICA velocity is 95.3/44.2 cm/s.The maximal outside diameter of the proximal The left maximum ICA velocity is 96.7/42.2 cm/s. aorta measures 1.5 cm i n the longitudinal axis. The right ECA velocity is less than 125 cm/s. The maximal outside diameter of the proximal The left ECA velocity is less than 125 cm/s. aorta measures 1.5 x 1.6 cm in the cross- There is no plaque formation noted on the right sectional axis. side. There is no plaque formation noted on the left side. Ankle Brachial Index The right ankle/ brachial index is 1.1. The left ankle/ brachial index is 1.1. Medical History and Assessment The client presents with a history of smoking. The heart rate is 72 beats per minute. The heart rhythm is regular. The right blood pressure is 108/ 70. The left blood pressure is 112/72. The assessment was performed by Angela Zarate RVT. Interpretation Summary Normal carotid artery screening (0 to 15% narrowing). Normal aortic ultrasound exam. The ankle/brachial index is normal (1.0 or greater). .rdering Physician: Martha Brown D.O Performed By : Marguerite Zarate RVT 12/06/162139 Date Shane Cotto MD CC: Martha Brown DO Sharif e Dictated: 12/06/16814 Date Transcribed: 12/06/162139 Painting Supervisor: Signed 13-Sep-2016 Stress Report Result: Comments: See Note; NOTES: [facility] Cardiovascular Services [address] [place] [address] Agnes 4d MR#: [id number] Acct: [id number] Name: TITA LAW Rep #: [id number] : 1960 56 From: Gato Blair MD Primary Care: Martha Brown DO Status: REG CLI Ordering Dr: Sex: F C Stress Test Report - Stress Test Report Stress Test Report: Date: 09/13/2016 Procedu re: Exercise tolerance test/stress nuclear imaging study Indications: Chest pain Consent: Per the patient Procedure: The patient exercised on a Russell protocol for 8 minutes completing stage II and 2 minutes of stage III achieving a peak heart rate of 160 bpm (96% predicted maximal heart rate) with a peak blood pressure 158/62 mmHg and a peak MET capacity of approximately 9MET's. The baseline ECG demonstrated normal sinus rhythm. The peak exercise ECG demonstrated somatic/ motion artifact with no obvious ECG changes. There was an isolated PVC during exercise and an isolated PAC during recovery. The functional capacity was considered good. The patient had no complaint of chest discomfort during exercise recovery. The examination was discontinued secondary to concerns of hip discomfort. Imp ression: 1. Technically adequate (percent predicted maximal heart rate greater than 85%) exercise tolerance test 2. Peak exercise ECG with no obvious ECG changes 3. Isolated PVC during exercise and an isolated PAC during recovery 4. Nuclear images pending Myocardial perfusion imaging study: Technique: The patient was injected with 10.9 mCi of technetium 99m Cardiolite and subsequently rest SPECT C ardiolite nuclear imaging was obtained in the horizontal long, vertical long, and short axis views. The patient exercised on a Russell protocol for 8 minutes completing stage II and 2 minutes of stage III achieving a peak heart rate of 160 bpm (96% predicted maximal heart rate) with a peak blood pressure 158/62 mmHg and a peak MET capacity of approximately 9MET's. The patient was injected with 32.8 mCi of Foot Piece Assembler 99m Cardiolite and subsequently stress SPECT Cardiolite nuclear imaging was obtained in the horizontal long, vertical long, and short axis views. A gated Cardiolite study at peak stress wa s obtained. Interpretation: Rest and stress SPECT Cardiolite nuclear imaging demonstrate relative uniform tracer uptake in myocardial perfusion appearing within normal limits. There are no myocardial perfusion changes appreciated on the resting or stress polar map images. There is end systolic thickening and brightening. The gated Cardiolite study reports myocardial thickening and inward wall motion . The reported LVEF is 85%. Impression: 1. Rest and stress SPECT Cardiolite nuclear imaging demonstrating relative uniform tracer uptake and myocardial perfusion appearing within normal limits. 2. The gated Cardiolite study reports an LVEF of 85%. This note was generated with [employer] software. It may contain incorrect words, spelling, and punctuation that were not noted in checking the not e before signing. 09/13/162053 <Electronically signed by Gato Blair MD> Date Gato Blair MD CC: Martha Brown DO; Gato Blair MD Date Dictated: 09/13/162046 Date Transcribed: 09/13/162046 Painting Supervisor: PM Signed 30-Aug-2016 Electroencephalogram Result: Comments: See Note; NOTES: [facility] Pulmonary Services/Neurology [address] [address] MR#: [id number] Acct: [id number] Name: TITA LAW Rep #: [id number] : 1960 56 From: Jacinto Salazar MD Referring Dr: Martha Brown DO Status: REG CLI Ordering Dr: Date: Location: Sex: F C Electroencephalogram Electroencephalogram: History: EEG is being do ne in this 56 yr F to rule out seizures EEG Description: This is an 18 channel EEG with 10-20 lead placement system. Bipolar montages, Referential and Circumferential montages were reviewed. Photic sti mulation and Hyperventilation were performed. The posterior dominant background rhythm is 11 HZ synchronous, symmetric, reacting to eye opening and closing. Photo stimulation elicited normal driving re sponse but no abnormal photoparoxysmal response, Hyperventilation did not elicit any abnormal photoparoxysmal response. There was intermixed fast beta frequency noticed through out the record. Sleep was identified. There was no epileptiform discharges or electrographic seizures noted during this recording. EEG Interpretation This is an abnormal EEG due to the presence frequent intermixed fast beta ac tivity which could be due to medication related effect. However clinical correlation is advised. There is no epileptiform discharges or electrographic seizures noted during the record. 08/30/16 1010 &a mp;#60;Electronically signed by Jacinto Salazar MD> Date Jacinto Salazar MD CC: Yamilka Salazar MD; Martha Brown DO Date Dic tated: 08/29/161720 Date Transcribed: 07/03/17 1721 Painting Supervisor: ROHAN Signed 29-Aug-2016 SCREENING MAMM (CAD), BILAT Result: Comments: See Note; NOTES: [facility] Imaging Services [address] [place] [address] Verdana 4d SCREENING MAMM (CAD), BILAT MR#: [id number] Acct: [id number] Name: GINNY LAW Rep #: [id number] : 1960 F 56 From: Krzysztof White MD PCP: Martha Brown DO Status: REG CLI Study: SCREENING MAMM (CAD), BILAT Date of Exam: 08/29/16 Exam# [id number] Ordering Dr: Martha Brown DO MAMMOGRAPHY - BILATERAL SCREENING REASON FOR EXAM: Female, 56 years old. Routine annual screening examination. PERTINENT HISTORY: Mother with breast cancer, previous biopsy. TECHNIQUE: Digital exam ination. Mediolateral oblique (MLO) and craniocaudad (CC) views of both breasts were obtained along with 3D tomosynthesis. CAD: CAD was performed on this study. COMPARISON: 08/27/2015 FINDINGS: Breast Density: Scattered fibroglandular densities. There are no dominant masses or suspicious calcifications. No other significant abnormalities are identified. There has been no significant change since the prior study. HPBI/SCREENING MAMM (CAD), BILAT IMPRESSION: Stable bilateral screening mammogram. Yearly foll ow-up mammogram recommended. (A) ASSESSMENT CATEGORY: BIRADS Category 2: Benign. A letter regarding these results will be sent to the patient by the facility within 30 days. BR2 Approximately 10% of breast cancers are not detected by mammography. A normal mammogram should not delay biopsy of a clinically suspicious abnormality. [id number] Electronically Signed: Dread White MD at 8:46 EDT , Service support , CC: Martha Brown DO Painting Supervisor: Signed 25-Aug-2016 Echocardiogram Complete Result: Comments: See Note; NOTES: [facility] Cardiovascular Services [address] [place] [address] Echo Complete 08/25/16 1207 MR#: [id number] Acct: [id number] Name: TITA LAW Rep #: [id number] : 1960 56 From: Conrado Nolasco MD Attending Dr: Martha Brown DO Status: REG CLI Ordering Dr: Martha Brown DO Date: 08/25/16 Location: [facility] Sex: F C Admitted: Reason For Study: E rosemary Procedure This was a 2D Doppler, Color Flow transthoracic echocardiogram. Exam performed in department. Left Ventricle Normal LV size. Mild concentric left ventricular hypertrophy. Left ventricul ar systolic function is normal. The estimated ejection fraction is 57 %. No regional wall motion abnormalities noted. Right Ventricle Normal RV size. Normal systolic function. Atria Normal left atrium . Normal right atrium. Mitral Valve Normal mitral valve. Trivial eccentric mitral valve insufficiency. Tricuspid Valve Normal tricuspid valve. Mild (1+) tricuspid valve insufficiency. Aortic Valve Nor mal aortic valve. Trisinus/trileaflet aortic valve. Pulmonic Valve Normal pulmonic valve. Great Vessels Normal aortic root. The pulmonary artery is normal size. Normal inferior vena cava. Pericardium /Pleural No pericardial effusion. MMode/2D Measurements AND Calculations LVIDd: 3.5 cm IVSd: 1.2 cm Ao root diam: 2.9 cm LVIDs: 2.5 cm LVPWd: 1.2 cm LA dimension: 3.2 cm RVDd: 3.4 cm FS: 28.1 % LAV(MOD- bp): 32.1 ml LA A4 area: 13.6 cm2 RA A4 area: 13.1 cm2 LAV(MOD-bp) Indexed: 18.5 ml/m2 LAV(MOD-sp2): 29.8 ml LAV(MOD-sp 4): 32.9 ml Doppler Measurements AND Calculations MV E max any: 91.1 cm/sec Lat Peak E' Any: 10.6 cm/sec Med Peak E' Any: 9.3 cm/sec MV A max any: 73.3 cm/sec E/E' lat: 8.6 E/E' med: 9.8 MV E/A: 1.2 __ Ao V2 max: 131.0 cm/sec LV V1 max: 105.7 cm/sec PA V2 max: 77.8 cm/sec Ao max P.9 mmHg LV V1 max P.5 mmHg TR max any: 198.7 cm/sec TR max P.9 mmHg Interpretation Summary Normal LV size. Mild concentric left ventricular hypertroph y. Left ventricular systolic function is normal. The estimated ejection fraction is 57 %. Trivial eccentric mitral valve insufficiency. Ordering Physician: Martha Brown Referring Physician: Martha Brown D.O. Performed By: Myra Price, GERARDO Electronically signed by: Conrado Nolasco MD on 017 01:18 PM 08/25/16 1318 Date Conrado Nolasco MD CC: Martha Brown DO Date Dictated: 08/25/16 1207 Date Transcribed: 08/25/16 1318 Painting Supervisor: Signed 09-Aug-2016 Chest PA and Lateral Result: Comments: See Note; NOTES: [facility] Imaging Services [address] [place] [address] [address] 4d Chest PA and Lateral MR#: [id number] Acct: [id number] Name: TITA LAW p #: [id number] : 1960 F 56 From: Dustin Villatoro DO PCP: Martha Brown DO Status: REG CLI Study: Chest PA and Lateral Date of Exam: 08/09/16 Exam# [id number] Ordering Dr: Martha Brown DO STUDY: X-RAY CH EST REASON FOR EXAM: Female, 56 years old. Wheezing, cough TECHNIQUE: Frontal and lateral views COMPARISON: June 23, 2016 FINDINGS: The lungs are clear and expa nded. There is no demonstrated pleural abnormality. Normal size heart. Normal mediastinum. Right hilar calcified nodules. Normal visualized pulmonary arteries. Normal visualized aortic arch and descend ing thoracic aorta. Normal visualized thoracic spine. Normal visualized ribs, clavicles, and shoulders. There is no demonstrated abnormality of the visualized soft tissue structures of the upper abdom en. RAD/Chest PA and Lateral IMPRESSION: Right hilar granulomatous calcifications. Electronically Signed: Dustin Villatoro DO at 22:20 EDT T [phone], Service support , CC: Martha Brown DO Painting Supervisor: Signed 21-Jul-2016 Thyroid Result: Comments: See Note; NOTES: [facility] Imaging Services [address] [place] [address] Agnes 4d Thyroid MR#: [id number] Acct: [id number] Name: TITA LAW Rep #: [id number] : 1960 F 56 From: Quentin Inman DO PCP: Martha Brown DO Status: REG CLI Study: Thyroid Date of Exam: 07/21/16 Exam# [id number] Ordering Dr: Martha Brown DO STUDY: THYROID ULTRASOUND REASON FOR EXAM: Female, 56 years old. Nodules TECHNIQUE: Ultrasound evaluation of the thyroid was performed with real-time and static mancia-scale imaging. COMPARISON: 03/11/2016 and 06/24/2011 FINDINGS: RIGHT LOBE: The right lobe of the thyroid gland measures 3.1 x 1.1 x 1.3 cm. There is a heterogeneous echotexture. Very subtle isoechoic solid nodule in the lower pole measur ing 7 x 6 x 5 mm. LEFT LOBE: The left lobe of the thyroid gland measures 2.9 x 1.2 x 1.0 cm cm. There is a heterogeneous echotexture. Isoechoic solid nodule in the lower pole measuring 5 x 4 x 3 mm IS THMUS: The isthmus measures 2 mm. The regional lymph nodes are normal. US/Thyroid IMPRESSION: Diffusely heterogeneous thyroid with stable nodul es as compared to the prior exams Electronically Signed: Quentin Inman DO at 12:48 EDT Tel , Service support , CC: Martha Brown DO Painting Supervisor: Signed 23-Jun-2016 Cerv Spine 4 or 5 Views Result: Comments: See Note; NOTES: [facility] Imaging Services [address] [place] [address] Verdana 4d Cerv Spine 4 or 5 Views MR#: [id number] Acct: [id number] Name: TITA LAW Rep #: [id number] : 1960 F 55 From: Hugo Pearce MD PCP: Martha Brown DO Status: REG CLI Study: Cerv Spine 4 or 5 Views Date of Exam: 06/23/16 Exam# [id number] Ordering Dr: Martha Brown DO ADDENDUM by Hugo Pearce MD on 06/28/16 at 1559 0074 RAD/Cerv Spine 4 or 5 Views 06/28/16 1606 Date cc: Martha Brown DO * Signed ADDENDUM by Hugo Taylor MD on 06/28/16 at 1559 ADDENDUM The impression should read as follows: Anterior discectomy and fusion at C4-C6. Not much change since the last examination of January 25, 2016 Electronically Signed: Hugo Pearce, at 15:59 EDT Tel , Service support [phone], 06/28/16 1559 Date cc: Martha Brown DO * Signed STUDY: X-RAY - CERVICAL SPINE REASON FOR EXAM: Female, 55 years old. Neck pain. TECHNIQUE: 7 views view(s) of the cervical spine were obtained. Hyperextension and hyperflexion views including COMPARISON: January 25, 2016 FINDINGS: There is evidence of anterior discectomy a nd fusion involving C4-C6. Plates and screws have been used for stabilization. There is overall normal alignment and curvature of the spine. No subluxation of one vertebral body over the other in the hy perextension and hyperflexion views. The hardware is in good position.. RAD/Cerv Spine 4 or 5 Views IMPRESSION: Anterior discectomy and fusion at C4-C6. Much change since the last examination of January 25, 2016 Electronically Signed: Hugo Pearce, at 2:24 EDT Tel , Service support , Fax CC: Martha Brown DO Painting Supervisor: Signed 23-Jun-2016 Cerv Spine 4 or 5 Views Result: Comments: See Note; NOTES: [facility] Imaging Services [address] [place] [address] Verda 4d Cerv Spine 4 or 5 Views MR#: [id number] Acct: [id number] Name: TITA LAW Rep #: [id number] : 1960 F 55 From: Hugo Pearce MD PCP: Martha Brown DO Status: REG CLI Study: Cerv Spine 4 or 5 Views Date of Exam: 06/23/16 Exam# [id number] Ordering Dr: Martha Brown DO STUDY: X-RAY - CERVICAL SPINE REASON FOR EXAM: Female, 55 years old. Neck pain. TECHNIQUE: 7 views view(s) of the cervical spine were obtained. Hyperextension and hyperflexion views including CO MPARISON: January 25, 2016 FINDINGS: There is evidence of anterior discectomy and fusion involving C4-C6. Plates and screws have been used for stabilization. There is overall normal alignment and curvature of the spine. No subluxation of one vertebral body over the other in the hyperextension and hyperflexion views. The hardware is in good position.. RAD/Cerv Spine 4 or 5 Views IMPRESSION: Anterior discectomy and fusion at C4-C6. Much change since the last examination of January 25, 2016 Electronically S igned: Hugo Pearce, at 2:24 EDT Tel , Service support , CC: Martha Brown DO Painting Supervisor: Signed 23-Jun-2016 Chest PA and Lateral Result: Comments: See Note; NOTES: [facility] Imaging Services [address] [place] [address] Verdana 4d Chest PA and Lateral MR#: [id number] Acct: [id number] Name: TITA LAW p #: [id number] : 1960 F 55 From: Hugo Pearce MD PCP: Martha Brown DO Status: REG CLI Study: Chest PA and Lateral Date of Exam: 06/23/16 Exam# [id number] Ordering Dr: Martha Brown DO S TUDY: X-RAY CHEST REASON FOR EXAM: Female, 55 years old. Neck pain. Hypocalcemia TECHNIQUE: 2 views COMPARISON: December 25, 2015 FINDINGS: The lungs are clear an d expanded. There is no demonstrated pleural abnormality. Normal size heart. Normal mediastinum and sandra. Normal visualized pulmonary arteries. Normal visualized aortic arch and descending thoracic aor ta. Normal visualized thoracic spine. Normal visualized ribs, clavicles, and shoulders. There is no demonstrated abnormality of the visualized soft tissue structures of the upper abdomen. RAD/Chest PA and Lateral IMPRESSION: Normal x-ray examination of the chest. No acute findings Electronically Signed: Hugo Pearce, at 2 :16 EDT Tel , Service support , CC: Martha Brown DO Painting Supervisor: Signed 02-Jun-2016 Abdomen WITH IV Contrast Result: Comments: See Note; NOTES: [facility] Imaging Services [address] [place] [address] Verdana 4d Abdomen WITH IV Contrast MR#: [id number] Acct: [id number] Name: BESSY LAW Rep #: [id number] : 1960 F 55 From: Isela Wright MD PCP: Martha Brown DO Status: REG CLI Study: Abdomen WITH IV Contrast Date of Exam: 06/02/16 Exam# [id number] Ordering Dr: Martha Brown TUDY: CT ABDOMEN WITH CONTRAST REASON FOR EXAM: Female, 55 years old. Right upper quadrant pain radiating around the flank. History of lumbar surgery, GARY/BSO, appendectomy. History of right adrenal ma ss. RADIATION DOSAGE (If Supplied By Facility): CTDIvol = ( 14.06 ) mGy, DLP = ( 390.13 ) mGycm TECHNIQUE: Transaxial 3.75 mm images were obtained post I.V. administration of 100 ml of Isovue 300 cont rast, and with oral contrast. Sagittal and coronal images were reconstructed. Individualized dose optimization techniques were used for this CT. COMPARISON: CT abdomen pelvis 05/02/2013. Right upper abd ominal ultrasound 05/12/2016. FINDINGS: Mild scarring in the right base. The visualized portions of the heart are within normal limits. Normal liver. Normal gallblad linn and extrahepatic biliary system. Normal spleen. Normal pancreas. Stable slightly heterogeneous right adrenal mass 2.6 cm image 26 series 2, compared to image 34 series 104 05/02/2013. Normal right k idney. Normal left kidney. Normal visualized stomach. Normal small intestine. Normal colon. The appendix is visualized and appears normal. Mild arteriosclerosis of the abdominal aorta. Normal inferior vena cava. Normal retroperitoneum. Normal abdominal wall. There are diffuse degenerative changes of the visualized lumbar spine. Status post lumbar fusion. CT/Abdomen WITH IV Contrast IMPRESSION: Stable right adrenal mass. There is no acute abdomen and pelvic pathology. There is no significant interval change. Electronically Signed: Isela Wright MD at 7:28 EDT , Service support [phone], CC: Martha Brown DO Painting Supervisor: Signed 02-Jun-2016 Abdomen WITH IV Contrast Result: Comments: See Note; NOTES: [facility] Imaging Services [address] [place] [address] Verdana 4d Abdomen WITH IV Contrast MR#: [id number] Acct: [id number] Name: BESSY LAW Rep #: [id number] : 1960 F 55 From: Isela Wright MD PCP: Martha Brown DO Status: REG CLI Study: Abdomen WITH IV Contrast Date of Exam: 06/02/16 Exam# [id number] Ordering Dr: Martha Brown DO A DDENDUM by Isela Wright MD on 06/28/[address]/Abdomen WITH IV Contrast 06/28/16 0012 Date cc: Martha Brown DO * Signed ADDENDUM by Isela Wright MD on 06/28/16 at 0005 ADDENDUM ADDENDUM: Additional history provided not available at time of interpretation. Pat ient is reportedly status post appendectomy. Therefore thin tubular bowel previously seen is not the appendix. Electronically Signed: Isela Wright MD at 0:05 EDT , Service support , 06/28/16 0005 Date cc: Martha Fast DO * Signed STUDY: CT ABDOMEN WITH CONTRAST REASON FOR EXAM: Female, 55 years old. Right upper quadrant pa in radiating around the flank. History of lumbar surgery, GARY/BSO, appendectomy. History of right adrenal mass. RADIATION DOSAGE (If Supplied By Facility): CTDIvol = ( 14.06 ) mGy, DLP = ( 390.13 ) mGy cm TECHNIQUE: Transaxial 3.75 mm images were obtained post I.V. administration of 100 ml of Isovue 300 contrast, and with oral contrast. Sagittal and coronal images were reconstructed. Individualized dose optimization techniques were used for this CT. COMPARISON: CT abdomen pelvis 05/02/2013. Right upper abdominal ultrasound 05/12/2016. FINDINGS: Mild scarring in t he right base. The visualized portions of the heart are within normal limits. Normal liver. Normal gallbladder and extrahepatic biliary system. Normal spleen. Normal pancreas. Stable slightly heteroge neous right adrenal mass 2.6 cm image 26 series 2, compared to image 34 series 104 05/02/2013. Normal right kidney. Normal left kidney. Normal visualized stomach. Normal small intestine. Normal colon. T he appendix is visualized and appears normal. Mild arteriosclerosis of the abdominal aorta. Normal inferior vena cava. Normal retroperitoneum. Normal abdominal wall. There are diffuse degenerative daija nges of the visualized lumbar spine. Status post lumbar fusion. CT/Abdomen WITH IV Contrast IMPRESSION: Stable right adrenal mass. There is no a cute abdomen and pelvic pathology. There is no significant interval change. Electronically Signed: Isela Wright MD at 7:28 EDT , Service support [phone], Fax CC: Martha Brown DO Painting Supervisor: Signed 19-May-2016 Hepatobilliary Img w/Pharm Int Result: Comments: See Note; NOTES: [facility] Imaging Services [address] [place] [address] Verdana 4d Hepatobilliary Img w/Pharm Int MR#: [id number] Acct: [id number] Name: TITA LAW Rep #: [id number] : 1960 F 55 From: Mario Olivo DO PCP: Martha Brown DO Status: REG CLI Study: Hepatobilliary Img w/Pharm Int Date of Exam: 05/19/16 Exam# [id number] Ordering Dr: Carrington Brown DO CLINICAL: 55-year-old female with reported history of postprandial abdominal pain and nausea. RADIONUCLIDE HEPATOBILIARY SCINTIGRAPHY COMPARISON: Abdominal ultrasound report 05/12/2016 FIND INGS: Following the intravenous administration of 5.2 mCi of Tc Mebrofenin, hepatobiliary images reveal: 1. Relatively prompt and homogeneous radiopharmaceutical concentration is noted by a normal size d liver. No parenchymal defects are identified. 2. Gallbladder activity is identified at 10 minutes post radiopharmaceutical administration. 3. Small intestinal tract is observed at 30 minutes following tracer injection. 4. Washout of the radiopharmaceutical by the hepatic parenchyma appears qualitatively normal. Cholecystokinin (0.02 ug/kg) was administered intravenously over a 30-minute period. The post CCK gallbladder ejection fraction calculated at 20 minutes following Cholecystokinin administration was noted to be 92.0 % (normal greater than 35%). During 30 minutes of post CCK imaging, there i s no scintigraphic evidence of reflux of the radiotracer into the common hepatic duct or refilling of the gallbladder. There is scintigraphic evidence of post CCK duodenal gastric reflux. ORDER #: [id number] NM/Hepatobilliary Img w/Pharm Int IMPRESSION: 1. A gallbladder ejection fraction calculated to be greater than 35% following the administration of Cholecystokinin makes the probability of functio nal hepatobiliary disease (gallbladder and/or sphincter of Oddi dyskinesia) and/or organic hepatobiliary disease (chronic acalculous cholecystitis and/or 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 (Yakelin sidhu, Journal of Nuclear Medicine 32:1695, 1990). 2. There is scintigraphic evidence of post CCK duodenal-gastric reflux. (Roger et al, Nucl Med Janel Joan Press pg. 35, 1980). Electronically Signed : Mario Olivo DO at 22:51 EDT Tel , Service support [phone], CC: Martha Brown DO Painting Supervisor: Signed 12-May-2016 Liver Result: Comments: See Note; NOTES: [facility] Imaging Services [address] [place] [address] Verdana 4d Liver MR#: [id number] Acct: [id number] Name: TITA LAW Rep #: [id number] : 1960 F 55 From: Barrera Galeana MD PCP: Martha Brown DO Status: REG CLI Study: Liver Date of Exam: 05/12/16 Exam# [id number] Ordering Dr: Martha Brown DO STUDY: ABDOMINAL ULTRASOUND - RIGHT UPPER QUADRANT REASON FOR VISIT: Female, 55 years old. Right upper quadrant pain. TECHNIQUE: Ultrasound evaluation of the right upper quadrant was performed with real-time and static mancia-scale imagi ng. TECHNICAL QUALITY: Adequate. COMPARISON: None. FINDINGS: Liver: The liver measures 14.0 cm. There is normal echogenicity of the liver. The bile ducts are with in normal limits. There is hepatic color flow. The direction of portal flow is hepatopetal. There is no demonstrated mass lesion. Gallbladder: Normal distended gallbladder. The gallbladder wall measure s 2.6 mm. There is a negative sonographic Torres's sign. There is no pericholecystic fluid. There are no gallstones. Common Bile Duct (C.B.D.): The common bile duct measures 3.1 mm. Pancreas: Normal s ize of the head, body and tail of the pancreas. There is normal echogenicity of the pancreas. There is no demonstrated pancreatic mass or cyst. Right Kidney: Normal size of the right kidney. The right kidney measures 11.0 cm x 5.4 cm x 5.1 cm. Normal renal cortex. The right cortex measures 1.5 cm. There is no demonstrated renal mass or cyst. There is no right hydronephrosis. US/Liver IMPRESSION: Normal right upper quadrant ultrasound examination. Electronically Signed: Barrera Galeana MD at 11:28 EDT Tel [phone], Service anthony pport [phone], CC: Martha Brown DO Painting Supervisor: Signed 20-Apr-2016 NCS and/or EMG Patient Result: Comments: See Note; NOTES: [facility] Pulmonary Services/Neurology [address] [place] [address] NCS and/or EMG Patient MR#: [id number] Acct: [id number] Name: TITA LAW Rep #: [id number] : 1960 55 From: Pardeep Read MD Referring Dr: Eusebio Braswell MD Status: REG I Ordering Dr: Eusebio Braswell MD Date: 04/20/16 Location: [facility] Sex: F C DATE OF SERVICE: 2016 REFERRING PHYSICIAN: Eusebio Braswell MD INTRODUCTION: This is a right upper extremity and right lower extremity EMG as well as nerve conduction study with repetitive stimulation test performed on the left ulnar nerve on this 55-year-old female with right arm pain and weakness. There is a history of a cervical fusion in 2010 and also right foot drop. EMG was performed on the right upper extremit y and right lower extremity. Muscles evaluated included the first dorsal interosseous, abductor pollicis brevis and longus, brachioradialis, biceps, triceps in the upper extremity and in the lower extre mity extensor digitorum brevis, abductor hallucis, medial gastrocnemius, anterior tibialis, and vastus lateralis muscles. All muscles demonstrated normal insertional activity with absence of pathologic spontaneous activity. Decreased effort was seen with low amplitudes of muscle action potentials, otherwise normal EMG was noted. Right upper extremity and right lower extremity nerve conduction study d emonstrated normal median motor and sensory, ulnar motor and sensory as well as radial sensory responses in the upper extremity and in the lower extremity normal sural sensory, common peroneal motor, ti bial motor responses were seen. The H-reflex amplitude was reduced in the lower extremities are of unclear clinical significance, F wave latencies of the above nerves were intact. Repetitive stimulation test did not demonstrate decrement or increment. IMPRESSION: 1. Normal EMG of the right upper and right lower extremity. 2. Normal nerve conduction study of the right upper and right lower extremity. 3. Normal repetitive stimulation test of the ulnar nerve. Pardeep Read MD T: NTS JOB: [id number] 04/20/16 1556 <Electronically signed by Pardeep Read MD> Date Pardeep Read MD CC: Martha Brown DO; Pardeep Read MD; Eusebio Braswell MD Date Dictated: 04/20/161106 Date Transcribed: 04/20/161106 Painting Supervisor: Signed 15-Mar-2016 Fluoro Guided Lumbar Puncture Result: Comments: See Note; NOTES: [facility] Imaging Services [address] [place] [address] Verdana 4d Fluoro Guided Lumbar Puncture MR#: [id number] Acct: [id number] Name: Niecy LAW Rep #: [id number] : 1960 F 55 From: Barrera Galeana MD PCP: Martha Brown DO Status: REG CLI Study: Fluoro Guided Lumbar Puncture Date of Exam: 03/15/16 Exam# [id number] Ordering Dr: Pepper Benoit PROCEDURE: Fluoroscopic guided Lumbar Puncture. DATE: March 15, 2016. CLINICAL INDICATION: The examination was obtained to rule out the diagnosis of multiple sclerosis. PHYSICIA N: Barrera Galeana M.D. MEDICATIONS: 1% lidocaine administered subcutaneously for local anesthesia. ACCESS SITE: Lower posterior back. NEEDLE: 22-gauge spinal needle. SPECIMEN: Approximately 12 m L clear]CSF fluid. FLUOROSCOPY TIME (if supplied): (0:42) minutes/seconds COMPLICATIONS: None immediate. The risks, benefits, and alternatives to the procedure were explained to the patient. The [facility] risks of bleeding, infection, and neurovascular injury were detailed and accepted. Witnessed informed consent was obtained. The patient was placed on the fluoroscopic table in the prone position. The level for needle entry was determined and marked. The overlying skin was cleaned and prepped in the usual sterile fashion. 2% lidocaine was administered subcutaneously for local anesthesia. Under fl uoroscopic guidance a 22-gauge spinal needle was advanced. The thecal sac was entered at the L3- L4 vertebral level. The inner stylet was removed. There was spontaneous flow of clear CSF fluid. The marina ent was placed in a reversed Trendelenburg position. Approximately 12 mL of cerebrospinal fluid was collected using gravity. The specimen was collected and submitted to the laboratory for further evalua tion. The needle was withdrawn,. Hemostasis was achieved and a sterile dressing placed. The patient tolerated the procedure well without any immediate complications. The patient was placed supine with head elevated and returned to the floor in stable condition. RAD/Fluoro Guided Lumbar Puncture IMPRESSION: Successful fluoroscopic-guided lumbar puncture. Electronically Signed: Barrera Galeana MD at 10:09 EST Tel [phone], Service support [phone], CC: Pepper Barr TEXTILE ENGINEER; Martha Brown DO Painting Supervisor: Signed 11-Mar-2016 Thyroid Result: Comments: See Note; NOTES: [facility] Imaging Services [address] [place] [address] Verdana 4d Thyroid MR#: [id number] Acct: [id number] Name: TITA LAW Rep #: [id number] : 1960 F 55 From: Barrera Galeana MD PCP: Martha Brown DO Status: REG CLI Study: Thyroid Date of Exam: 03/11/16 Exam# [id number] Ordering Dr: Martha Brown DO STUDY: THYROID ULTRASOUND REAS ON FOR EXAM: Female, 55 years old. Thyroid nodule. TECHNIQUE: Ultrasound evaluation of the thyroid was performed with real-time and static mancia-scale imaging. COMPARISON: Comparison is made with prior study dated June 24, 2011. FINDINGS: RIGHT LOBE: The right lobe of the thyroid gland measures 3.1 cm x 0.9 cm x 1.1 cm. There is a heterogeneous echotexture. Ther e is a 7 mm x 7 mm x 7 mm solid hypoechoic nodule in the midportion of the lobe. Periarticular vascularity is seen. LEFT LOBE: The left lobe of the thyroid gland measures 2.9 cm x 1.3 cm x 1.0 cm. Ther e is a heterogeneous echotexture. There is a 6 mm x 4 mm x 4 mm cystic nodule in the midportion of the lobe. This is unchanged. ISTHMUS: The isthmus measures 3.0 mm. The regional lymph nodes are tg l. US/Thyroid IMPRESSION: Heterogeneous appearance of both lobes of the thyroid. Stable cyst in the left lobe. 7 mm x 7 mm x 7 mm hypoechoic gypsy id nodule in the right lobe. Electronically Signed: Barrera Galeana MD at 15:57 EST Tel [phone], Service support [phone], CC: Martha Brown DO Painting Supervisor: Signed 10-Feb-2016 Brain W/WO Contrast Result: Comments: See Note; NOTES: [facility] Imaging Services [address] [place] [address] Verdana 4d Brain W/WO Contrast MR#: [id number] Acct: [id number] Name: TITA LAW Rep #: [id number] : 1960 F 55 From: Madeleine Villar MD PCP: Martha Brown DO Status: REG CLI Study: Brain W/WO Contrast Date of Exam: 02/10/16 Exam# [id number] Ordering Dr: Martha Brown DO STUDY: MRI BRA IN WITH AND WITHOUT CONTRAST REASON FOR EXAM: Female, 55 years old. Chronic migraine headaches worse on the right side with numbness and tingling lips and face. TECHNIQUE: Standardized multiplanar fat and water weighted pulse sequences were obtained. 7 ml of Gadavist contrast material was administered intravenously for the contrast portion of the examination. COMPARISON: MRI of the brain dated Oct. FINDINGS: Normal size of the ventricles and extra-axial spaces for the patient's age. There are multiple scattered foci of abnormal T2 hyperintensit y visible throughout the subcortical white matter of the frontal lobes and parietal lobes, left slightly worse and right. The areas of abnormal signal more numerous and larger than they were on the prev ious MRI. The largest areas of abnormal signal measure up to 1.5 cm and is located in the left periatrial region There is no evidence for recent intracranial ischemia or other cause of cytotoxic edema on diffusion weighted imaging (DWI). Normal bilateral basal ganglia. 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 Normal thalami. There is no extra- axial fluid accumulation. Normal flow voi ds within the major intracranial circulation suggesting patency by spin echo criteria. Normal venous enhancement. There is no enhancing intra-axial or extra-axial abnormality. Normal sella turcica, pit uitary gland, infundibular stalk, optic chiasm and hypothalamus. Normal tectal plate and pineal gland. Normal midbrain, cherelle and medulla. Normal cerebellum. Normal basal cisterns. Normal bilateral temp oral bones. Normal bilateral internal auditory canals. No demonstrated orbital abnormality, within the constraints of a routine brain study. Normal visualized paranasal sinuses. Normal calvarium and sk ull base. Normal visualized soft tissue structures. Normal visualized upper cervical spine. MRI/Brain W/WO Contrast IMPRESSION: Multiple foci of abnormal signal within the white matter, more numerous and larger than were present on the previous study. Potential etiologies include sequela of a vasculopathy and demyelination. Electronically Melissa d: Madeleine Villar MD at 23:33 EST , Service support [phone], CC: Martha Brown DO Painting Supervisor: Signed 25-Jan-2016 Cerv Spine 2 or 3 Views Result: Comments: See Note; NOTES: [facility] Imaging Services [address] [address] Verdana 4d Cerv Spine 2 or 3 Views MR#: [id number] Acct: [id number] Name: TITA LAW Rep #: [id number] : 1960 F 55 From: Julio Cesar Soto MD PCP: Martha Brown DO Status: REG CLI Study: Cerv Spine 2 or 3 Views Date of Exam: 01/25/16 Exam# [id number] Ordering Dr: Matt Wilburn STUDY : X-RAY - CERVICAL SPINE REASON FOR EXAM: Female, 55 years old. Pain with radiation towards the bilateral shoulders. Headache TECHNIQUE: 3 view(s) of the cervical spine were obtained. COMPARISON: X-r ays of the cervical spine on November 14, 2011 FINDINGS: Normal anterior atlantoaxial articulation. Normal odontoid process. There is straightening of the normal c ervical lordosis. Normal vertebral bodies. The patient is status post anterior fusion at C4, C5 and C6. There are no signs of instability in the lateral flexion-extension views. The hardware is intact. The soft tissue structures are unremarkable. RAD/Cerv Spine 2 or 3 Views IMPRESSION: Stable C4-C6 anterior fusion. Electronically Signed: Julio Cesar Soto MD, FACR at 16:52 EST , Service support [phone], CC: MATT WILBURN; Martha Brown DO Painting Supervisor: Signed 25-Jan-2016 Spine Cervical (Routine) Result: Comments: See Note; NOTES: [facility] [facility] Imaging Services [address] [place] [address] Verdana 4d Spine Cervical (Routine) MR#: [id number] Acct: [id number] Name: BESSY LAW Rep #: [id number] : 1960 F 55 From: Julio Cesar Soto MD PCP: Martha Brown DO Status: REG CLI Study: Spine Cervical (Routine) Date of Exam: 01/25/16 Exam# [id number] Ordering Dr: Matt Wilburn DY: MRI CERVICAL SPINE WITHOUT CONTRAST REASON FOR EXAM: Female, 55 years old. Headaches, neck pain, bilateral arm pain and weakness in the arms and hands. History of previous fusion TECHNIQUE: Standa rdized fat and water weighted pulse sequences were obtained in the sagittal and axial planes. COMPARISON: X-rays of the cervical spine on November 14, 2011 FINDING S: Normal foramen magnum and brainstem-cervical cord junction. Normal craniovertebral junction. Normal anterior atlantoaxial articulation. Normal odontoid process. There is reversal of the normal cervi alberto lordosis. Normal vertebral bodies. There is multilevel facet arthrosis. C2- 3: Normal endplates. Normal disc height, signal and morphology. Normal central canal and intervertebral neural foramina. C3-4: Normal endplates. There is an annular bulge. Normal central canal and intervertebral neural foramina. C4-5: Status post anterior fusion. Normal central canal and intervertebral neural foramina. C5-6: Status post anterior fusion. Normal central canal and intervertebral neural foramina. C6-7: Normal endplates. There is an annular bulge. Normal central canal and intervertebral neural foramina. C7-T1: Normal endplates. Normal disc height, signal and morphology. Normal central canal and intervertebral neural foramina. Normal cervical cord. Normal visualized soft tissue structures. MRI/Spine Cervical (Routine) IMPRESSION: Reversal of the normal lordosis. Status post anterior fusion from C4 to C6. Annular bulges at C3-4 and C6-7. Susanne ctronically Signed: Julio Cesar Soto MD, FACR at 15:55 EST , Service support [phone], CC: MATT WILBURN; Martha Brown DO Painting Supervisor: Signed 31-Dec-2015 L/S Spine Bending Flex/Ext Result: Comments: See Note; NOTES: [facility] Imaging Services [address] [place] [address] Verdana 4d L/S Spine Bending Flex/Ext MR#: [id number] Acct: [id number] Name: GINNY LAW BHAKTI Rep #: [id number] : 1960 F 55 From: Barrera Galeana MD PCP: Martha Brown DO Status: REG CLI Study: L/S Spine Bending Flex/Ext Date of Exam: 12/31/15 Exam# [id number] Ordering Dr: Carrington Wilburn STUDY: X-RAY - LUMBAR SPINE REASON FOR EXAM: Female, 55 years old. History of prior lumbar fusion. TECHNIQUE: 5 view(s) of the lumbar spine were obtained including lateral flexion and extension views.. COMPARISON: Comparison is made with prior examination dated November 14, 2011. FINDINGS: Normal lumbar lordosis. There is no substantial scoliosis. The pa tient is status post in the navicular screw and wire fixation at the L5-S1 level. This also evidence of a prior laminectomy and transverse interbody bone grafting. There is evidence of a marked degree o f disc space narrowing. Grade 1 anterolisthesis of L5 on S1. The soft tissue structures are unremarkable. RAD/L/S Spine Bending Flex/Ext IMPRES SAWYER: Status post laminectomy and fusion at the L5-S1 level with disc space narrowing and grade 1 anterolisthesis of L5 on S1. This is unchanged. Electronically Signed: Barrera Galeana MD 4 at 11:17 EDT Tel [phone], Service support [phone], CC: MATT WILBURN; Martha Brown DO Painting Supervisor: Signed 24-Dec-2015 Chest 1 View (Portable) Result: Comments: See Note; NOTES: [facility] Imaging Services [address] [place] [address] Verdana 4d Chest 1 View (Portable) MR#: [id number] Acct: [id number] Name: BESSY LAW Rep #: [id number] : 1960 F 55 From: Barrera Galeana MD PCP: Martha Brown DO Status: REG ER Study: Chest 1 View (Portable) Date of Exam: 12/24/15 Exam# [id number] Ordering Dr: Rashad Acosta MD STUDY: X-RAY CHEST REASON FOR EXAM: Female, 55 years old. Cough and fever. TECHNIQUE: Single AP portable view of the chest. COMPARISON: Comparison is made with prior study dated February 09 15. FINDINGS: The lungs are clear and expanded. Scattered calcified granulomas. There is no demonstrated pleural abnormality. Normal size heart. Normal mediastinum and sandra. Normal visualized pulmonary arteries. Normal visualized aortic arch and descending thoracic aorta. Normal visualized thoracic spine. Normal visualized ribs, clavicles, and shoulders. There is no demonstrated abnormality of the visualized soft tissue structures of the upper abdomen. RAD/Chest 1 View (Portable) IMPRESSION: Normal x-r ay examination of the chest. Electronically Signed: Barrera Galeana MD at 15:13 EDT Tel [phone], Service support [phone], CC: Martha Brown DO; Rashad Acosta MD Painting Supervisor: Signed 10-Oct-2015 Spine Lumbar without Contrast Result: Comments: See Note; NOTES: [facility] Imaging Services [address] [place] [address] Verdana 4d Spine Lumbar without Contrast MR#: [id number] Acct: [id number] Name: TITA LAW Rep #: [id number] : 1960 F 55 From: Quentin Inman DO PCP: Martha Brown DO Status: REG CLI Study: Spine Lumbar without Contrast Date of Exam: 10/10/15 Exam# [id number] Ordering Dr: Ruben Wilburn STUDY: CT LUMBAR SPINE WITHOUT CONTRAST REASON FOR EXAM: Female, 55 years old. Lumbar spine fusion. New injury with compression fracture RADIATION DOSAGE (If Supplied By Facility): CTDIvol = ( 1 8.47 ) mGy, DLP = ( 616.19 ) mGycm TECHNIQUE: The patient was scanned in a multi detector CT scanner. High resolution transaxial imaging was performed. Images were obtained from to . Sagittal and coron al images were reconstructed. Individualized dose optimization techniques were used for this CT. COMPARISON: None FINDINGS: There is an exaggerated lumbar lordosis . There is no substantial scoliosis. Normal vertebrae of the lumbar spine. Posterior fusion at L5-S1 with grade 1 anterolisthesis. Sclerosis at the superior endplate of L4 with some volume loss indica harleen compression fracture. No evidence of retropulsed fragmentation. Remaining vertebral body heights are within normal limits. Mild multilevel endplate degenerative change and facet degenerative change. No evidence of hardware failure or loosening. Normal visualized paraspinous soft tissue structures. 0008 CT/Spine Lumbar without Contrast IMPRESSIO N: Posterior fusion at L5-S1 with grade 1 anterolisthesis. Compression fracture of the superior endplate of L4 with some volume loss. Electronically Signed: Quentin Inman at 16:29 EDT Tel , Service support [phone], CC: MATT WILBURN; Martha Brown DO Painting Supervisor: Signed 07-Oct-2015 Spine Thoracic (Routine) Result: Comments: See Note; NOTES: [facility] Imaging Services [address] [place] [address] Verdana 4d Spine Thoracic (Routine) MR#: [id number] Acct: [id number] Name: SARINA LAW IS Rep #: [id number] : 1960 F 55 From: Basil Culver MD PCP: Martha Brown DO Status: REG CLI Study: Spine Thoracic (Routine) Date of Exam: 10/07/15 Exam# [id number] Ordering Dr: MANDEEP DILLON MD STUDY: MRI THORACIC SPINE WITHOUT CONTRAST REASON FOR EXAM: Female, 55 years old. thoracic spine pain, numbness,weakness, spasms; injured moving furniture, hx osteoporosis TECHNIQUE: Standardized fa t and water weighted pulse sequences were obtained in the sagittal and axial planes. COMPARISON: None. FINDINGS: Normal kyphosis of the thoracic spine. There is no substantial scoliosis. T1-2, T2-3, T3-4, T4-5, T5-6, T6-7, T7-8, T8-9, T9-10, T10-11, T11-12: Normal endplates. Normal disc hydration, heights and morphology of the corresponding intervertebral discs. Normal central canal and intervertebral neural foramina at the corresponding levels. Normal visualized thoracic cord. Normal conus medullaris that terminates at the . The soft tissue structures are un remarkable. MRI/Spine Thoracic (Routine) IMPRESSION: Normal unenhanced MRI examination of the thoracic spine. Electronically Signed: Basil hinton MD at 16:32 EDT Tel , Service support [phone], CC: Martha Brown DO; MANDEEP DILLON MD Painting Supervisor: Signed 29-Sep-2015 ELECTROCARDIOGRAM, COMPLETE (ECG) (76209) Comments: ekg showed normal sinus rhythym, normal axis, no acute st/t wave changes Result: [MEASUREMENTS ANALYSIS] Date of Test: 09/29/2015 10:02:56; Heart Rate: 70; CA Interval: 158; QRS: 90; QT Interval: 396; Corrected QT Interval (QTc): 413; P Wave [place]: 73; QRS Wave [place]: 71; T Wave [place]: 67; Blood Pressure: 110/70 [ECG DIAGNOSTIC STATEMENTS] Date of Test: 09/29/2015 10:02:56; Summary: Sinus Rhythm WITHIN NORMAL LIMITS 03-Sep-2015 Spine Lumbar (Routine) Result: Comments: See Note; NOTES: [facility] Imaging Services [address] [place] [address] Verda 4d Spine Lumbar (Routine) MR#: [id number] Acct: [id number] Name: TITA DUEÑAS Rep #: [id number] : 1960 F 55 From: Julio Cesar Soto MD PCP: Martha Brown DO Status: REG CLI Study: Spine Lumbar (Routine) Date of Exam: 09/03/15 Exam# [id number] Ordering Dr: Martha Brown DO STUDY: MRI LUMBAR SPINE WITHOUT CONTRAST REASON FOR EXAM: Female, 55 years old. Increased back and bilat hip/leg pain, prev surgery 2005 TECHNIQUE: Standardized fat and water weighted pulse sequences were obtained in the sagittal and axial planes. COMPARISON: Prior MRI of the lumbar spine on 09-21-11 FINDINGS: T12-L1: Normal endplates. Nor mal disc height, hydration and morphology. Normal bilateral facet joints. Normal central canal and bilateral lateral recesses. Normal bilateral intervertebral neural foramina. Normal lumbar lordosis . There is no substantial scoliosis. Normal conus medullaris that terminates at the L1-2: Normal endplates. Normal disc height, hydration and morphology. Normal bilateral facet joints. Normal centra l canal and bilateral lateral recesses. Normal bilateral intervertebral neural foramina. L2-3: There are small anterior osteophytes. Normal disc height, hydration and morphology. Normal bilateral fa cet joints. Normal central canal and bilateral lateral recesses. Normal bilateral intervertebral neural foramina. L3-4: There is a slightly depressed acute compression fracture deformity of the sup erior endplate of L4 with bone marrow edema (sagittal STIR series 5 image 8). Normal disc height, hydration and morphology. Normal bilateral facet joints. Normal central canal and bilateral lateral r ecesses. Normal bilateral intervertebral neural foramina. L4-5: Normal endplates. There is an annular bulge with a posterior annular tear. Normal bilateral facet joints. Normal central canal and bila teral lateral recesses. Normal bilateral intervertebral neural foramina. L5- S1: Status post posterior fusion and laminectomy, with transpedicular rods and bone graft. There is degenerative disc dise ase with disc space narrowing and disc desiccation. Normal spinal canal. There is minimal grade 1 anterolisthesis. There is bilateral foraminal stenosis with impingement on the L5 nerve roots Tg l visualized sacral ala. Postsurgical changes are noted in the posterior soft tissues, with muscular atrophy. The donor site for bone graft material in the left iliac bone is noted (axial T1 series 7 image 4). IMPRESSION: Slightly depressed acute compression fracture deformity of the superior endplate of L4, not present on the prior examination. L4-5 annul ar bulge, unchanged as the prior examination. L5-S1 status post posterior fusion and laminectomy. Degenerative disc disease. Bilateral foraminal impinging stenosis of the L5 nerve roots. No signific ant changes since the last examination. Electronically Signed: Julio Cesar Soto MD, FACR at 11:54 EDT , Service support [phone], CC: Martha Brown DO Painting Supervisor: Signed 27-Aug-2015 Bilat Scrn Digital AND CAD Result: Comments: See Note; NOTES: [facility] Imaging Services [address] [place] [address] Vernadana 4d Bilat Scrn Digital AND CAD MR#: [id number] Acct: [id number] Name: TITA LAW Rep #: [id number] : 1960 F 55 From: Barrera Galeana MD PCP: Martha Brown DO Status: REG CLI Study: Bilat Scrn Digital AND CAD Date of Exam: 08/27/15 Exam# [id number] [facility] Dr: Martha Brown DO MAMMOGRAPHY - BILATERAL SCREENING REASON FOR EXAM: Female, 55 years old. Routine annual screening examination. PERTINENT HISTORY: Mother with breast cancer. Prior left yonis reotactic breast biopsy. TECHNIQUE: Digital bilateral breast katia (3D mammographic acquisition) in the CC and MLO projections. 2-D mediolateral oblique (MLO) and craniocaudad (CC) views of both eulogio asts were obtained. Mediolateral oblique (MLO) and craniocaudad (CC) views of both breasts were obtained. CAD: Full Field Digital Mammography with Computer Added Detection was performed. COMPARISON : Comparison is made with prior study dated June 30, 2014 and June 24, 2013. FINDINGS: Breast Composition: There are scattered areas of fibroglandular density. There are no dominant masses or suspicious calcifications. Once again, a tissue marker clip is seen in the upper outer aspect of the left breast. No other significant abnormalities are identified. Th ere has been no significant change since the prior study. IMPRESSION: Stable bilateral screening mammogram. Yearly follow-up mammogram recommended. (A) ASSESSMENT CATEGORY: BIRADS Category 1: Negative. A letter regarding these results will be sent to the patient by the facility within 30 days. Approximately 10% of br east cancers are not detected by mammography. A normal mammogram should not delay biopsy of a clinically suspicious abnormality. [id number] Electronically Signed: Barrera Galeana MD a t 8:51 EDT Tel [phone], Service support [phone], CC: Martha Brown DO Painting Supervisor: Signed 27-Aug-2015 Dexa Bone Density Study (HP) Result: Comments: See Note; NOTES: [facility] Imaging Services [address] [place] [address] Verdana 4d Dexa Bone Density Study (HP) MR#: [id number] Acct: [id number] Name : TITA LAW Rep #: [id number] : 1960 F 55 From: Barrera Galeana MD PCP: Martha Brown DO Status: REG CLI Study: Dexa Bone Density Study (HP) Date of Exam: 08/27/15 Exam# [id number] Or dering Dr: Martha Brown DO STUDY: DUAL ENERGY X-RAY ABSORPTIOMETRY / DXA REASON FOR EXAM: Female, 55 years old. Early menopause. Loss of height. TECHNIQUE: Bone Mineral Density (BMD) measurements of lumbar spine and bilateral hips were obtained. COMPARISON: Comparison is made with prior study dated June 22, 2010. FINDINGS: Lumbar Spine (L1-L4): g/cm2 (0.871) / T-score (-2.6) / Z-score (-1.9) Findings are suggestive of osteoporosis with a high fracture risk. Left Femur Total: g/cm2 (0.601) / T-score (-3.2) / Z-score (-2.6) Left Femoral Neck: g/c m2 (0.605) / T-score (-3.1) / Z-score (-2.2) Right Femur Total: g/cm2 (0.670) / T-score (-2.7) / Z-score (-2.1) Right Femoral Neck: g/cm2 (0.601) / T-score (-3.1) / Z-score (-2.2) The T-Scores on th e most recent prior examination were: Lumbar Spine (L1-L4): There has been worsening of bone density since the previous examination. Left Femur Total: which represents a worsening of 17.4%. Right Femur Total: which represents a worsening of 13.4%. IMPRESSION: The patient is considered osteoporotic as outlined below according to World Tod Organization (W HO) criteria with a high fracture risk. There has been worsening of bone density since the previous examination. Reference Information: The T-score is the numbe r of standard deviations above or below the standard which is normal for young adults at their peak bone mineral density. The World Health Organization (WHO) interprets the T-scores as follows: Abo ve -1 Normal bone density Between -1 and -2.5 Osteopenia Equal to / or below -2.5 Osteoporosis As a practical clinical guideline, osteopenia may be graded as follows: Mild -1 through -1.5 Moderate -1.6 through -2.0 Severe -2.1 through -2.4 The Z-score is the number of standard deviations above or below age-matched controls. A Z-score of less than -1.5 would be considered abnormal. Referenc es: 1. NIH Osteoporosis and Related Bone Diseases http://www.osteo.org 2. International Society for Clinical Densitometry http://www.iscd.org 3. National Osteoporosis Foundation http://www.nof.org Electronically Signed: Barrera Galeana MD at 14:42 EDT Tel [phone], Service support [phone], CC: Martha Brown DO Painting Supervisor: Signed 27-Aug-2015 Hip 2-3 Views with Pelvis Result: Comments: See Note; NOTES: [facility] Imaging Services [address] [place] [address] Verdana 4d Hip 2-3 Views with Pelvis MR#: [id number] Acct: [id number] Name: TITA AMBROCIO Rep #: [id number] : 1960 F 55 From: Murray Palma MD PCP: Martha Brown DO Status: REG CLI Study: Hip 2-3 Views with Pelvis Date of Exam: 08/27/15 Exam# [id number] Ordering Dr: Martha Johnson DO STUDY: X-RAY - PELVIS AND LEFT HIP REASON FOR EXAM: Female, 55 years old. Atraumatic left hip pain. TECHNIQUE: Radiological exam, hip, unilateral, with pelvis when performed; 2 or 3 views. COMPARISON: September 25, 2013 FINDINGS: There is a non-specific bowel gas pattern. Normal visualized soft tissue structures. There is mild generalized o steopenia. Normal bilateral iliac wings, sacroiliac joints and visualized sacrum. Normal bilateral superior and inferior pubic rami. Normal pubic symphysis. Normal bilateral ischial tuberosities. Inc identally noted are stable post-surgical changes at the lumbosacral junction. Normal visualized femoral head. Normal acetabulum. Normal hip joint. IMPRESSION: Osteopenia with post-surgical changes in the lower lumbar spine. No acute pathology identified. Electronically Signed: Murray Palma MD at 16:31 EDT , Service support , RAD/Hip 2-3 Views with Pelvis IMPRESSION: Osteopenia with post-surgical changes in the lower lumbar spine. No acute pathology identified. Electr onically Signed: Murray Palma MD at 16:31 EDT , Service support [phone], CC: Martha Brown DO Painting Supervisor: Signed 09-Feb-2015 Chest PA and Lateral Result: Comments: See Note; NOTES: [facility] Imaging Services [address] [place] [address] Verdana 4d Chest PA and Lateral MR#: [id number] Acct: [id number] Name: TITA MCLEAN Rep #: [id number] : 1960 F 54 From: Barrera Galeana MD PCP: Martha Brown DO Status: REG CLI Study: Chest PA and Lateral Date of Exam: 02/09/15 Exam# [id number] Ordering Dr: Abby Rivera STUDY: X-RAY CHEST REASON FOR EXAM: Female, 54 years old. History of pneumonia. TECHNIQUE: PA and lateral views of the chest. COMPARISON: Comparison is made with prior study dated May 14, 2013. FINDINGS: Hyper inflation. Calcified granulomatous disease. There is no demonstrated pleural abnormality. Normal size heart. Calcified right hilar lymph nodes. Normal visualized pulmonary arteries. Normal visualized aortic arch and descending thoracic aorta. There is demineralization of the osseous structures. Normal visualized ribs, clavicle s, and shoulders. There is no demonstrated abnormality of the visualized soft tissue structures of the upper abdomen. IMPRESSION: Hyperinflation. No acute abno rmality is seen. Electronically Signed: Barrera Galeana MD at 15:21 EST Tel [phone], Service support [phone], RAD/Chest PA and Lateral IMPRESSION: Hyperinflation. No acute abnormality is seen. Electronically Signed: Barrera Galeana MD at 15:21 EST Tel [phone], Service support [phone], CC: Abby Rivera; Martha Brown DO Painting Supervisor: Signed 30-Jun-2014 Bilat Scrn Digital AND CAD Result: Comments: See Note; NOTES: [facility] Imaging Services [address] [place] [address] Breast Imaging Report MR#: [id number] Acct: [id number] Name: TITA LAW Rep #: [id number] : 1960 F 53 From: Barrera Galeana MD PCP: Martha Brown DO Status: REG CLI Study: Bilat Scrn Digital AND CAD Date of Exam: 06/30/14 Exam# [id number] Ordering Dr: Martha Brown DO MAMMOGRAPHY - BILATERAL SCREENING REASON FOR EXAM: Female, 53 years old. Routine annual screening examination. PERTINENT HISTORY: Mother with breast cancer. Prior left stereotactic biopsy. TE CHNIQUE: Digital examination. Mediolateral oblique (MLO) and craniocaudad (CC) views of both breasts were obtained. 90? lateral view of the right breast was obtained as well. CAD: CAD was performed on this study. COMPARISON: Comparison is made with prior study dated June 24, 2013 and November 02, 2012. FINDINGS: Breast Composition: There are scattered are as of fibroglandular density. There are no dominant masses or suspicious calcifications. A tissue marker clip is seen in the upper outer aspect of the left breast. No other significant abnormalitie s are identified. There has been no significant change since the prior study. IMPRESSION: Stable bilateral screening mammogram. Yearly follow-up recommended. (A) ASSESSMENT CATEGORY: BIRADS Category 2: Benign. A letter regarding these results will be sent to the patient by the facility within 30 days. Approximately 10% of breast cancers are not detected by mammography. A normal mammogram should not delay biopsy of a clinically suspicious abnormality. Electronically Signed: Barrera Galeana MD at 9 :06 EDT Tel [phone], Service support [phone], CC: Martha Brown DO Painting Supervisor: Signed 07-Oct-2013 Extremity Lower WITH Contrast Result: Comments: See Note; NOTES: [facility] Imaging Services [address] [place] [address] CAT Scan Report MR#: [id number] Acct: [id number] Name: TITA LAW Rep #: [id number] : 1960 F 53 From: Barrera Galeana MD PCP: Martha Brown DO Status: REG CLI Study: Extremity Lower WITH Contrast Date of Exam: 10/07/13 Exam# [id number] Ordering Dr: Martha Brown DO STUDY: CT SCAN OF THE PELVIS AND RIGHT HIP. REASON FOR EXAM: Female, 53 years old. Chronic right hip pain following a recent fall. RADIATION DOSAGE (If Supplied By Facility): CTDIvol = ( 27.09 ) mG y, DLP = ( 961.72 ) mGycm TECHNIQUE: Multiple axial tomographic images were obtained without intravenous contrast administration. Coronal and sagittal reconstructions obtained as well. COMPARISON : None. FINDINGS: The patient is status post appendectomy and hysterectomy. The patient is also status post interpedicular screw and tank fixation at the L5-S1 le any with minimal residual anterior listhesis of L5 on S1. Mild degree of joint space narrowing involving both hip joints. There is no evidence of fracture or dislocation. There is evidence of deform ity along the iliac bone at the level of the left sacroiliac joint. This may represent a bone graft donor site. IMPRESSION: Mild degree of degenerative changes i nvolving both hip joints. The patient is status post L5-S1 interpedicular screw fixation. Electronically Signed: Barrera Galeana MD at 15:02 EDT Tel [phone], Service support [phone], CC: Martha Brown DO Painting Supervisor: Signed 25-Sep-2013 Forearm 2 Views Result: Comments: See Note; NOTES: [facility] Imaging Services [address] [place] [address] Radiology Report MR#: [id number] Acct: [id number] Name: TITA LAW Rep #: [id number] : 1960 F 53 From: Barrera Galeana MD PCP: Martha Brown DO Status: REG CLI Study: Forearm 2 Views Date of Exam: 09/25/13 Exam# [id number] Ordering Dr: Martha Brown DO STUDY: X-RAY - RIGHT RADIUS AND ULNA REASON FOR EXAM: Female, 53 years old. Bruising and swelling of the arm following a fall. TECHNIQUE: 2 view(s) of the forearm. COMPARISON: None. FINDINGS: There is no demonstrated soft tissue swelling. Normal visualized radius. Normal visualized ulna. IMPRESSION: Normal x-ray examination of the radius and ulna. Electronically Signed: Barrera Galeana MD at 16:16 EDT Tel [phone], Service support [phone], RAD/Forearm 2 Views IMPRESSION: Normal x-ray examination of the radius and ulna. Electronically Signed: Barrera Galeana MD at 16:16 EDT Tel [phone], Service support [phone], CC: Martha Brown DO Painting Supervisor: Signed 25-Sep-2013 Hip min 2 Views Result: Comments: See Note; NOTES: [facility] Imaging Services [address] [place] [address] Radiology Report MR#: [id number] Acct: [id number] Name: ANITITA INFANTE Rep #: [id number] : 1960 F 53 From: Barrera Galeana MD PCP: Martha Brown DO Status: REG CLI Study: Hip min 2 Views Date of Exam: 09/25/13 Exam# [id number] Ordering Dr: Martha Brown DO STUDY: X-RAY - RIGHT HIP REASON FOR EXAM: Female, 53 years old. Pain following a fall. TECHNIQUE: 2 view(s) of the hip. COMPARISON: None. FINDINGS: Normal femoral head, neck, intertrochanteric region and visualized proximal femur. Normal acetabulum. Normal hip joint. Normal visualized superior and inferior pubic rami and ischial tuberosities. IMPRESSION: Normal x-ray examination of the hip. Electronically Signed: Barrera Galeana MD at 16:18 EDT Tel [phone], Service support [phone], Fax CC: Mratha Brown DO Painting Supervisor: Signed 25-Sep-2013 Pelvis 1 or 2 Views Result: Comments: See Note; NOTES: [facility] Imaging Services [address] [place] [address] Radiology Report MR#: [id number] Acct: [id number] Name: TITA LAW Rep #: [id number] : 1960 F 53 From: Khang Braun MD PCP: Martha Brown DO Status: REG CLI Study: Pelvis 1 or 2 Views Date of Exam: 09/25/13 Exam# [id number] Ordering Dr: Martha Brown DO STUDY: X-RAY - PELVIS REASON FOR EXAM: Female, 53 years old. Fall one week ago. Right hip pain TECHNIQUE: One view of the pelvis was obtained. COMPARISON: January 06, 2010 _ FINDINGS: There is a non-specific bowel gas pattern. Normal visualized soft tissue structures. Postoperative change in the lower spine with fusion to the sacrum. Arthritic change at the left sa croiliac joint. Normal visualized bilateral superior and inferior pubic rami. There are degenerative changes of the pubic symphysis . Normal ischial tuberosities. No fracture seen. Normal visualized right femoral head. Normal right acetabulum. Normal right hip joint. Normal visualized left femoral head. Normal left acetabulum. Normal left hip joint. IMPRE SSION: Normal x-ray examination of the pelvis. Electronically Signed: Khang Braun MD at 16:24 EDT , Service support [phone], [id number] RAD/Pelvis 1 or 2 Views IMPRESSION: Normal x-ray examination of the pelvis. Electronically Signed: Khang Braun MD at 16:24 EDT , Service support [phone], CC: Martha Brown DO Painting Supervisor: Signed 25-Sep-2013 Thoracic Spine 3 Views Result: Comments: See Note; NOTES: [facility] Imaging Services [address] [place] [id number] Radiology Report MR#: [id number] Acct: [id number] Name: TITA LAW Rep #: [id number] : 1960 F 53 From: Barrera Galeana MD PCP: Martha Brown DO Status: REG CLI Study: Thoracic Spine 3 Views Date of Exam: 09/25/13 Exam# [id number] Ordering Dr: Martha Brown DO STUDY: X-RAY - THORACIC SPINE REASON FOR EXAM: Female, 53 years old. Pain following a fall. TECHNIQUE: 3 view(s) of the thoracic spine were obtained. COMPARISON: None. __ FINDINGS: Normal kyphosis of the thoracic spine. Mild levoconvex scoliosis. Normal thoracic vertebrae and endplates. There is multilevel disc space narrowing of the thoracic spine. The patient i s status post anterior fusion at the C4-C5 and C5-C6 levels. Calcified right hilar lymph nodes. IMPRESSION: Degenerative changes. Electronically Signed: Ac Galeana MD at 16:19 EDT Tel [phone], Service support [phone], RAD/Thoracic Spine 3 Views IMPRESSION: Degenerative changes. Elect ronically Signed: Barrera Galeana MD at 16:19 EDT Tel [phone], Service support [phone], CC: Martha Brown DO Painting Supervisor: Signed 24-Jun-2013 Bilat Scrn Digital & CAD Result: Comments: See Note; NOTES: [facility] Imaging Services [address] [place] [id number] Breast Imaging Report MR#: [id number] Acct: [id number] Name: TITA LAW Rep #: [id number] : 1960 F 52 From: Barrera Galeana MD PCP: Martha Brown DO Status: REG CLI Exam# [id number] Ordering Dr: Shahla Myers MD MAMMOGRAPHY - BILATERAL SCREENING REASON FOR EXAM: Jonathan luciano, 52 years old. Routine annual screening examination. PERTINENT HISTORY: Mother with breast cancer. Prior left stereotactic biopsy. TECHNIQUE: Digital examination. Mediolateral oblique (MLO) and craniocaudad (CC) views of both breasts were obtained. CAD: CAD was performed on this study. COMPARISON: Comparison is made with prior examination dated November 02, 2012 and June 22, 2012. _ FINDINGS: The breast composition is composed of scattered fibroglandular tissues ranging from 25% to 50% of the breast. There are no dominant masses or suspiciou s calcifications. The patient is status post left stereotactic biopsy in the upper outer quadrant. No other significant abnormalities are identified. There has been no significant change since the p rior study. IMPRESSION: Stable bilateral screening mammogram. Yearly follow-up recommended. (A) ASSESSMENT CATEGORY: BIRAD S Category 2: Benign finding(s). A letter regarding these results will be sent to the patient by the facility within 30 days. Approximately 10% of breast cancers are not detected by mammography. A n ormal mammogram should not delay biopsy of a clinically suspicious abnormality. Electronically Signed: Barrera Galeana MD at 9:32 EDT Tel [phone], Service support [phone], F ax [phone] CC: Martha Brown DO; Shahla Myers MD Painting Supervisor: Signed 14-May-2013 Chest PA and Lateral Result: Comments: See Note; NOTES: [facility] Imaging Services [address] [place] [address] Radiology Report MR#: [id number] Acct: [id number] Name: TITA LAW Rep #: [id number] : 1960 F 52 From: Barrera Galeana MD PCP: Martha Brown DO Status: REG CLI Study: Chest PA and Lateral Date of Exam: 05/14/13 Exam# [id number] Ordering Dr: Martha Brown DO STUDY: X -RAY CHEST REASON FOR EXAM: Female, 52 years old. Upper respiratory infection. TECHNIQUE: PA and lateral views of the chest. COMPARISON: Comparison is made with prior examination dated June 28, 2011 . FINDINGS: Hyperinflation. Calcified old granulomatous disease. There is no demonstrated pleural abnormality. Normal size heart. Calcified right hilar lymph nodes. Normal visualized pulmonary arteries. Normal visualized aortic arch and descending thoracic aorta. Normal visualized thoracic spine. Normal visualized ribs, clavicles, and shoulders. There is no demonstrated abnormality of the visualized soft tissue structures of the upper abdomen. IMPRESSION: Hyperinflation. No focal consolidation is seen. Elec tronically Signed: Barrera Galeana M.D. at 14:47 EDT , Service support [phone], CC: Martha Brown DO Painting Supervisor: Signed Family History Unknown Family Member Name Dates Details Family Members In General Comments: cancer, Heart Disease Status: Active First Degree Relatives Comments: ETOH, CA, Heart dx, High cholesterol, Thyroid dx, Lupus, aunt and cousin with MS, MATERNAL GRANDMOTHER - had small bowel cancer - her siblings with pancreatic cancer brain cancer lung cancer colon Status: Active Mother Comments: Breast Ca- 56 still living/anxiety -smoker now nodule in lung Status: Active Paternal Grandfather Comments: dm heart disease Status: Active Social History Name Dates Details Alcohol Use Comments: Occasional alcohol use, Drinks wine Status: Active Caffeine Use Comments: occasional- but drinks decaf coffee and tea Status: Active Exercise History Comments: 45 mins. 3 X a wk Status: Active Living Situation Comments: , heterosexual Status: Active Tobacco Use: Current every day smoker. Comments: Smokes < 1 pack of cigarettes per day Status: Active Smoking Status Name Dates Details Current every day smoker Vital Signs Date Test Result Details :08 Temperature 98.2 f Comments: Method: Temporal Pulse 72 /min Comments: Pattern: Regular Respiration Rate 16 /min Comments: Pattern: Unlabored BP Systolic 108 mm[Hg] Comments: Patient Position: Sitting; Cuff Location: Left Arm; Cuff Size: Standard BP Diastolic 68 mm[Hg] Comments: Patient Position: Sitting; Cuff Location: Left Arm; Cuff Size: Standard Weight 149 lb Height 66.3 in Body Mass Index Calculated 23.83 kg/m2 Body Surface Area Calculated 1.77 m2 :10 Temperature 98.2 f Comments: Method: Temporal Pulse 71 /min Comments: Pattern: Regular Respiration Rate 16 /min Comments: Pattern: Unlabored O2 SAT 97 % Comments: Room air BP Systolic 128 mm[Hg] Comments: Patient Position: Sitting; Cuff Location: Left Arm; Cuff Size: Standard BP Diastolic 74 mm[Hg] Comments: Patient Position: Sitting; Cuff Location: Left Arm; Cuff Size: Standard Weight 149 lb Height 66.3 in Body Mass Index Calculated 23.83 kg/m2 Body Surface Area Calculated 1.77 m2 :01 Temperature 98.3 f Comments: Method: Temporal Pulse 67 /min Comments: Pattern: Regular Respiration Rate 16 /min Comments: Pattern: Unlabored BP Systolic 104 mm[Hg] Comments: Patient Position: Sitting; Cuff Location: Left Arm; Cuff Size: Standard BP Diastolic 68 mm[Hg] Comments: Patient Position: Sitting; Cuff Location: Left Arm; Cuff Size: Standard Weight 149.125 lb Height 66.3 in Body Mass Index Calculated 23.85 kg/m2 Body Surface Area Calculated 1.77 m2 :17 Temperature 97.7 f Comments: Method: Temporal Pulse 79 /min Comments: Pattern: Regular Respiration Rate 16 /min Comments: Pattern: Unlabored BP Systolic 120 mm[Hg] Comments: Patient Position: Sitting; Cuff Location: Left Arm; Cuff Size: Standard BP Diastolic 70 mm[Hg] Comments: Patient Position: Sitting; Cuff Location: Left Arm; Cuff Size: Standard Weight 149.125 lb Height 66.3 in Body Mass Index Calculated 23.85 kg/m2 Body Surface Area Calculated 1.77 m2 :30 Temperature 97.9 f Comments: Method: Temporal Pulse 71 /min Comments: Pattern: Regular Respiration Rate 16 /min Comments: Pattern: Unlabored BP Systolic 114 mm[Hg] Comments: Patient Position: Sitting; Cuff Location: Left Arm; Cuff Size: Standard BP Diastolic 62 mm[Hg] Comments: Patient Position: Sitting; Cuff Location: Left Arm; Cuff Size: Standard Weight 154.125 lb Height 66.3 in Body Mass Index Calculated 24.65 kg/m2 Body Surface Area Calculated 1.8 m2 :23 Temperature 98.7 f Comments: Method: Temporal Pulse 85 /min Comments: Pattern: Regular Respiration Rate 16 /min Comments: Pattern: Unlabored BP Systolic 115 mm[Hg] Comments: Patient Position: Sitting; Cuff Location: Left Arm; Cuff Size: Standard BP Diastolic 68 mm[Hg] Comments: Patient Position: Sitting; Cuff Location: Left Arm; Cuff Size: Standard Weight 154.125 lb Height 66.3 in Body Mass Index Calculated 24.65 kg/m2 Body Surface Area Calculated 1.8 m2 :08 Temperature 98.5 f Comments: Method: Temporal Pulse 76 /min Comments: Pattern: Regular Respiration Rate 16 /min Comments: Pattern: Unlabored BP Systolic 104 mm[Hg] Comments: Patient Position: Sitting; Cuff Location: Left Arm; Cuff Size: Standard BP Diastolic 60 mm[Hg] Comments: Patient Position: Sitting; Cuff Location: Left Arm; Cuff Size: Standard Weight 154.125 lb Height 66.3 in Body Mass Index Calculated 24.65 kg/m2 Body Surface Area Calculated 1.8 m2 [id number] Comments: [id number]/72, 60sitting 98/56 67standing 94/58, 78 Temperature 97.5 f Comments: Method: Temporal Pulse 71 /min Comments: Pattern: Regular Respiration Rate 16 /min Comments: Pattern: Unlabored O2 SAT 97 % Comments: Room air BP Systolic 104 mm[Hg] Comments: Patient Position: Sitting; Cuff Location: Left Arm; Cuff Size: Standard BP Diastolic 68 mm[Hg] Comments: Patient Position: Sitting; Cuff Location: Left Arm; Cuff Size: Standard Weight 150 lb Height 66.3 in Body Mass Index Calculated 23.99 kg/m2 Body Surface Area Calculated 1.78 m2 :03 Temperature 96.8 f Comments: Method: Temporal Pulse 68 /min Comments: Pattern: Regular Respiration Rate 16 /min Comments: Pattern: Unlabored O2 SAT 98 % Comments: Room air BP Systolic 110 mm[Hg] Comments: Patient Position: Sitting; Cuff Location: Left Arm; Cuff Size: Standard BP Diastolic 62 mm[Hg] Comments: Patient Position: Sitting; Cuff Location: Left Arm; Cuff Size: Standard Weight 150 lb Height 66.3 in Body Mass Index Calculated 23.99 kg/m2 Body Surface Area Calculated 1.78 m2 [id number] Temperature 97.4 f Comments: Method: Temporal Pulse 78 /min Comments: Pattern: Regular Respiration Rate 16 /min Comments: Pattern: Unlabored O2 SAT 97 % Comments: Room air BP Systolic 102 mm[Hg] Comments: Patient Position: Sitting; Cuff Location: Left Arm; Cuff Size: Standard BP Diastolic 70 mm[Hg] Comments: Patient Position: Sitting; Cuff Location: Left Arm; Cuff Size: Standard Weight 146 lb Height 66.3 in Body Mass Index Calculated 23.35 kg/m2 Body Surface Area Calculated 1.76 m2 :04 Temperature 97.6 f Comments: Method: Temporal Pulse 90 /min Comments: Pattern: Regular Respiration Rate 20 /min Comments: Pattern: Unlabored O2 SAT 97 % Comments: Room air BP Systolic 114 mm[Hg] Comments: Patient Position: Sitting; Cuff Location: Left Arm; Cuff Size: Standard BP Diastolic 72 mm[Hg] Comments: Patient Position: Sitting; Cuff Location: Left Arm; Cuff Size: Standard Weight 146 lb Height 66.3 in Body Mass Index Calculated 23.35 kg/m2 Body Surface Area Calculated 1.76 m2 :32 Temperature 96.8 f Comments: Method: Temporal Pulse 72 /min Comments: Pattern: Regular Respiration Rate 16 /min Comments: Pattern: Unlabored O2 SAT 99 % Comments: Room air BP Systolic 112 mm[Hg] Comments: Patient Position: Sitting; Cuff Location: Left Arm; Cuff Size: Standard BP Diastolic 74 mm[Hg] Comments: Patient Position: Sitting; Cuff Location: Left Arm; Cuff Size: Standard Weight 145 lb Height 65.75 in Body Mass Index Calculated 23.58 kg/m2 Body Surface Area Calculated 1.74 m2 :42 Temperature 97.6 f Comments: Method: Temporal Pulse 76 /min Comments: Pattern: Regular Respiration Rate 16 /min Comments: Pattern: Unlabored O2 SAT 95 % Comments: Room air BP Systolic 110 mm[Hg] Comments: Patient Position: Sitting; Cuff Location: Left Arm; Cuff Size: Standard BP Diastolic 70 mm[Hg] Comments: Patient Position: Sitting; Cuff Location: Left Arm; Cuff Size: Standard Weight 140 lb Height 65.75 in Body Mass Index Calculated 22.77 kg/m2 Body Surface Area Calculated 1.71 m2 :21 Temperature 97.8 f Comments: Method: Temporal Pulse 80 /min Comments: Pattern: Regular Respiration Rate 16 /min Comments: Pattern: Unlabored O2 SAT 98 % Comments: Room air BP Systolic 128 mm[Hg] Comments: Patient Position: Sitting; Cuff Location: Left Arm; Cuff Size: Standard BP Diastolic 70 mm[Hg] Comments: Patient Position: Sitting; Cuff Location: Left Arm; Cuff Size: Standard Weight 143 lb Height 65.75 in Body Mass Index Calculated 23.26 kg/m2 Body Surface Area Calculated 1.73 m2 [id number]:13 Temperature 97.7 f Comments: Method: Temporal Pulse 80 /min Comments: Pattern: Regular Respiration Rate 16 /min Comments: Pattern: Unlabored O2 SAT 98 % Comments: Room air BP Systolic 108 mm[Hg] Comments: Patient Position: Sitting; Cuff Location: Left Arm; Cuff Size: Standard BP Diastolic 78 mm[Hg] Comments: Patient Position: Sitting; Cuff Location: Left Arm; Cuff Size: Standard Weight 143 lb Height 65.75 in Body Mass Index Calculated 23.26 kg/m2 Body Surface Area Calculated 1.73 m2 :04 Temperature 97.6 f Comments: Method: Temporal Pulse 84 /min Comments: Pattern: Regular Respiration Rate 16 /min Comments: Pattern: Unlabored O2 SAT 99 % Comments: Room air BP Systolic 114 mm[Hg] Comments: Patient Position: Sitting; Cuff Location: Left Arm; Cuff Size: Standard BP Diastolic 76 mm[Hg] Comments: Patient Position: Sitting; Cuff Location: Left Arm; Cuff Size: Standard Weight 139 lb Height 65.75 in Body Mass Index Calculated 22.61 kg/m2 Body Surface Area Calculated 1.71 m2 :11 Temperature 97.6 f Comments: Method: Temporal Pulse 74 /min Comments: Pattern: Regular Respiration Rate 16 /min Comments: Pattern: Unlabored O2 SAT 98 % Comments: Room air BP Systolic 96 mm[Hg] Comments: Patient Position: Sitting; Cuff Location: Left Arm; Cuff Size: Standard BP Diastolic 68 mm[Hg] Comments: Patient Position: Sitting; Cuff Location: Left Arm; Cuff Size: Standard Weight 139 lb Height 65.75 in Body Mass Index Calculated 22.61 kg/m2 Body Surface Area Calculated 1.71 m2 :19 Temperature 97.6 f Comments: Method: Temporal Pulse 76 /min Comments: Pattern: Regular Respiration Rate 16 /min Comments: Pattern: Unlabored O2 SAT 99 % Comments: Room air BP Systolic 104 mm[Hg] Comments: Patient Position: Sitting; Cuff Location: Left Arm; Cuff Size: Standard BP Diastolic 66 mm[Hg] Comments: Patient Position: Sitting; Cuff Location: Left Arm; Cuff Size: Standard Weight 139 lb Height 65.75 in Body Mass Index Calculated 22.61 kg/m2 Body Surface Area Calculated 1.71 m2 :07 Temperature 97.2 f Comments: Method: Temporal Pulse 78 /min Comments: Pattern: Regular Respiration Rate 16 /min Comments: Pattern: Unlabored O2 SAT 97 % Comments: Room air BP Systolic 122 mm[Hg] Comments: Patient Position: Sitting; Cuff Location: Left Arm; Cuff Size: Standard BP Diastolic 84 mm[Hg] Comments: Patient Position: Sitting; Cuff Location: Left Arm; Cuff Size: Standard Weight 139 lb Height 65.75 in Body Mass Index Calculated 22.61 kg/m2 Body Surface Area Calculated 1.71 m2 :19 Temperature 97.6 f Comments: Method: Temporal Pulse 72 /min Comments: Pattern: Regular Respiration Rate 15 /min Comments: Pattern: Unlabored O2 SAT 98 % Comments: Room air BP Systolic 104 mm[Hg] Comments: Patient Position: Sitting; Cuff Location: Left Arm; Cuff Size: Standard BP Diastolic 70 mm[Hg] Comments: Patient Position: Sitting; Cuff Location: Left Arm; Cuff Size: Standard Weight 136 lb Height 65.75 in Body Mass Index Calculated 22.12 kg/m2 Body Surface Area Calculated 1.69 m2 :24 Temperature 97.6 f Comments: Method: Temporal Pulse 92 /min Comments: Pattern: Regular Respiration Rate 15 /min Comments: Pattern: Unlabored O2 SAT 99 % Comments: Room air BP Systolic 114 mm[Hg] Comments: Patient Position: Sitting; Cuff Location: Left Arm; Cuff Size: Standard BP Diastolic 70 mm[Hg] Comments: Patient Position: Sitting; Cuff Location: Left Arm; Cuff Size: Standard Weight 135 lb Height 65.75 in Body Mass Index Calculated 21.96 kg/m2 Body Surface Area Calculated 1.69 m2 :23 Temperature 96.9 f Comments: Method: Temporal Pulse 76 /min Comments: Pattern: Regular Respiration Rate 15 /min Comments: Pattern: Unlabored O2 SAT 99 % Comments: Room air BP Systolic 124 mm[Hg] Comments: Patient Position: Sitting; Cuff Location: Left Arm; Cuff Size: Standard BP Diastolic 84 mm[Hg] Comments: Patient Position: Sitting; Cuff Location: Left Arm; Cuff Size: Standard Weight 134 lb Height 65.75 in Body Mass Index Calculated 21.79 kg/m2 Body Surface Area Calculated 1.68 m2 :07 Temperature 96.6 f Comments: Method: Temporal Pulse 68 /min Comments: Pattern: Regular Respiration Rate 16 /min Comments: Pattern: Unlabored O2 SAT 98 % Comments: Room air BP Systolic 122 mm[Hg] Comments: Patient Position: Sitting; Cuff Location: Left Arm; Cuff Size: Standard BP Diastolic 74 mm[Hg] Comments: Patient Position: Sitting; Cuff Location: Left Arm; Cuff Size: Standard Weight 136 lb Height 65.75 in Body Mass Index Calculated 22.12 kg/m2 Body Surface Area Calculated 1.69 m2 :49 Comments: after pulse ox O2 SAT 98 % Comments: Room air :19 Temperature 97.2 f Comments: Method: Temporal Pulse 73 /min Comments: Pattern: Regular Respiration Rate 16 /min Comments: Pattern: Unlabored O2 SAT 93 % Comments: Room air BP Systolic 116 mm[Hg] Comments: Patient Position: Sitting; Cuff Location: Left Arm; Cuff Size: Standard BP Diastolic 68 mm[Hg] Comments: Patient Position: Sitting; Cuff Location: Left Arm; Cuff Size: Standard Weight 135 lb Height 65.75 in Body Mass Index Calculated 21.96 kg/m2 Body Surface Area Calculated 1.69 m2 :04 Temperature 97.3 f Comments: Method: Temporal Pulse 56 /min Comments: Pattern: Regular Respiration Rate 15 /min Comments: Pattern: Unlabored O2 SAT 99 % Comments: Room air BP Systolic 110 mm[Hg] Comments: Patient Position: Sitting; Cuff Location: Left Arm; Cuff Size: Standard BP Diastolic 70 mm[Hg] Comments: Patient Position: Sitting; Cuff Location: Left Arm; Cuff Size: Standard Weight 131 lb Height 65.75 in Body Mass Index Calculated 21.3 kg/m2 Body Surface Area Calculated 1.67 m2 :11 Temperature 97.5 f Comments: Method: Temporal Pulse 72 /min Comments: Pattern: Regular Respiration Rate 15 /min Comments: Pattern: Unlabored O2 SAT 97 % Comments: Room air BP Systolic 112 mm[Hg] Comments: Patient Position: Sitting; Cuff Location: Left Arm; Cuff Size: Standard BP Diastolic 68 mm[Hg] Comments: Patient Position: Sitting; Cuff Location: Left Arm; Cuff Size: Standard Weight 131 lb Height 65.75 in Body Mass Index Calculated 21.3 kg/m2 Body Surface Area Calculated 1.67 m2 :47 Temperature 98.1 f Comments: Method: Temporal Pulse 68 /min Comments: Pattern: Regular Respiration Rate 15 /min Comments: Pattern: Unlabored O2 SAT 98 % Comments: Room air BP Systolic 108 mm[Hg] Comments: Patient Position: Sitting; Cuff Location: Left Arm; Cuff Size: Standard BP Diastolic 74 mm[Hg] Comments: Patient Position: Sitting; Cuff Location: Left Arm; Cuff Size: Standard Weight 131 lb Height 65.75 in Body Mass Index Calculated 21.3 kg/m2 Body Surface Area Calculated 1.67 m2 :17 Temperature 97.8 f Comments: Method: Temporal Pulse 94 /min Comments: Pattern: Regular Respiration Rate 15 /min Comments: Pattern: Unlabored O2 SAT 99 % Comments: Room air BP Systolic 108 mm[Hg] Comments: Patient Position: Sitting; Cuff Location: Left Arm; Cuff Size: Standard BP Diastolic 76 mm[Hg] Comments: Patient Position: Sitting; Cuff Location: Left Arm; Cuff Size: Standard Weight 132 lb Height 65.75 in Body Mass Index Calculated 21.47 kg/m2 Body Surface Area Calculated 1.67 m2 :01 Temperature 98.1 f Comments: Method: Temporal Pulse 96 /min Comments: Pattern: Regular Respiration Rate 15 /min Comments: Pattern: Unlabored O2 SAT 98 % Comments: Room air BP Systolic 118 mm[Hg] Comments: Patient Position: Sitting; Cuff Location: Left Arm; Cuff Size: Standard BP Diastolic 76 mm[Hg] Comments: Patient Position: Sitting; Cuff Location: Left Arm; Cuff Size: Standard Weight 133 lb Height 65.75 in Body Mass Index Calculated 21.63 kg/m2 Body Surface Area Calculated 1.68 m2 :58 Temperature 98 f Comments: Method: Temporal Pulse 69 /min Comments: Pattern: Regular Respiration Rate 16 /min Comments: Pattern: Unlabored BP Systolic 118 mm[Hg] Comments: Patient Position: Sitting; Cuff Location: Left Arm; Cuff Size: Standard BP Diastolic 72 mm[Hg] Comments: Patient Position: Sitting; Cuff Location: Left Arm; Cuff Size: Standard Weight 135.2 lb Height 65.75 in Body Mass Index Calculated 21.99 kg/m2 Body Surface Area Calculated 1.69 m2 :19 Temperature 97.7 f Comments: Method: Temporal Pulse 76 /min Comments: Pattern: Regular Respiration Rate 16 /min Comments: Pattern: Unlabored O2 SAT 98 % Comments: Room air BP Systolic 122 mm[Hg] Comments: Patient Position: Sitting; Cuff Location: Left Arm; Cuff Size: Large BP Diastolic 86 mm[Hg] Comments: Patient Position: Sitting; Cuff Location: Left Arm; Cuff Size: Large Weight 134 lb Height 65.75 in Body Mass Index Calculated 21.79 kg/m2 Body Surface Area Calculated 1.68 m2 :56 Temperature 97.5 f Comments: Method: Temporal Pulse 86 /min Comments: Pattern: Regular Respiration Rate 18 /min Comments: Pattern: Unlabored O2 SAT 97 % Comments: Room air BP Systolic 114 mm[Hg] Comments: Patient Position: Sitting; Cuff Location: Left Arm; Cuff Size: Standard BP Diastolic 60 mm[Hg] Comments: Patient Position: Sitting; Cuff Location: Left Arm; Cuff Size: Standard Weight 136 lb Height 65.75 in Body Mass Index Calculated 22.12 kg/m2 Body Surface Area Calculated 1.69 m2 :29 Temperature 96.7 f Comments: Method: Oral Pulse 96 /min Comments: Pattern: Regular Respiration Rate 16 /min Comments: Pattern: Unlabored BP Systolic 112 mm[Hg] Comments: Patient Position: Sitting; Cuff Location: Left Arm; Cuff Size: Standard BP Diastolic 64 mm[Hg] Comments: Patient Position: Sitting; Cuff Location: Left Arm; Cuff Size: Standard Weight 136 lb Height 65.75 in Body Mass Index Calculated 22.12 kg/m2 Body Surface Area Calculated 1.69 m2 :06 Temperature 96.1 f Pulse 100 /min Comments: Pattern: Regular Respiration Rate 16 /min Comments: Pattern: Unlabored BP Systolic 102 mm[Hg] Comments: Patient Position: Sitting; Cuff Location: Left Arm; Cuff Size: Standard BP Diastolic 74 mm[Hg] Comments: Patient Position: Sitting; Cuff Location: Left Arm; Cuff Size: Standard Weight 134 lb Height 65.75 in Body Mass Index Calculated 21.79 kg/m2 Body Surface Area Calculated 1.68 m2 :09 Temperature 98.4 f Pulse 72 /min Comments: Pattern: Regular Respiration Rate 16 /min Comments: Pattern: Unlabored BP Systolic 108 mm[Hg] Comments: Patient Position: Sitting; Cuff Location: Left Arm; Cuff Size: Standard BP Diastolic 70 mm[Hg] Comments: Patient Position: Sitting; Cuff Location: Left Arm; Cuff Size: Standard Weight 128 lb Height 65.75 in Body Mass Index Calculated 20.82 kg/m2 Body Surface Area Calculated 1.65 m2 :50 Temperature 97.7 f Pulse 88 /min Comments: Pattern: Regular Respiration Rate 16 /min Comments: Pattern: Unlabored BP Systolic 94 mm[Hg] Comments: Patient Position: Sitting; Cuff Location: Left Arm; Cuff Size: Standard BP Diastolic 70 mm[Hg] Comments: Patient Position: Sitting; Cuff Location: Left Arm; Cuff Size: Standard Weight 132 lb Height 65.75 in Body Mass Index Calculated 21.47 kg/m2 Body Surface Area Calculated 1.67 m2 :34 Temperature 98.2 f Pulse 86 /min Comments: Pattern: Regular Respiration Rate 16 /min Comments: Pattern: Unlabored BP Systolic 106 mm[Hg] Comments: Patient Position: Sitting; Cuff Location: Left Arm; Cuff Size: Standard BP Diastolic 72 mm[Hg] Comments: Patient Position: Sitting; Cuff Location: Left Arm; Cuff Size: Standard Weight 131 lb Height 65.75 in Body Mass Index Calculated 21.3 kg/m2 Body Surface Area Calculated 1.67 m2 :06 Temperature 98.8 f Pulse 84 /min Comments: Pattern: Regular Respiration Rate 16 /min Comments: Pattern: Unlabored BP Systolic 118 mm[Hg] Comments: Patient Position: Sitting; Cuff Location: Left Arm; Cuff Size: Standard BP Diastolic 70 mm[Hg] Comments: Patient Position: Sitting; Cuff Location: Left Arm; Cuff Size: Standard Weight 129 lb Height 65.75 in Body Mass Index Calculated 20.98 kg/m2 Body Surface Area Calculated 1.66 m2 :45 Temperature 97.9 f Pulse 104 /min Comments: Pattern: Regular Respiration Rate 16 /min Comments: Pattern: Unlabored BP Systolic 98 mm[Hg] Comments: Patient Position: Sitting; Cuff Location: Left Arm; Cuff Size: Standard BP Diastolic 70 mm[Hg] Comments: Patient Position: Sitting; Cuff Location: Left Arm; Cuff Size: Standard Weight 129 lb Height 65.75 in Body Mass Index Calculated 20.98 kg/m2 Body Surface Area Calculated 1.66 m2 :17 Temperature 98.4 f Pulse 82 /min Comments: Pattern: Regular Respiration Rate 16 /min Comments: Pattern: Unlabored BP Systolic 106 mm[Hg] Comments: Patient Position: Sitting; Cuff Location: Left Arm; Cuff Size: Standard BP Diastolic 68 mm[Hg] Comments: Patient Position: Sitting; Cuff Location: Left Arm; Cuff Size: Standard Weight 136 lb Height 65.75 in Body Mass Index Calculated 22.12 kg/m2 Body Surface Area Calculated 1.69 m2 :17 Temperature 97.8 f Pulse 76 /min Comments: Pattern: Regular Respiration Rate 16 /min Comments: Pattern: Unlabored BP Systolic 104 mm[Hg] Comments: Patient Position: Sitting; Cuff Location: Left Arm; Cuff Size: Standard BP Diastolic 72 mm[Hg] Comments: Patient Position: Sitting; Cuff Location: Left Arm; Cuff Size: Standard Weight 136 lb Height 65.75 in Body Mass Index Calculated 22.12 kg/m2 Body Surface Area Calculated 1.69 m2 :31 Temperature 98.1 f Comments: Method: Oral Pulse 81 /min Comments: Pattern: Regular Respiration Rate 16 /min Comments: Pattern: Unlabored O2 SAT 98 % Comments: Room air BP Systolic 120 mm[Hg] Comments: Patient Position: Sitting; Cuff Location: Left Arm; Cuff Size: Standard BP Diastolic 72 mm[Hg] Comments: Patient Position: Sitting; Cuff Location: Left Arm; Cuff Size: Standard Weight 137 lb Height 65.75 in Body Mass Index Calculated 22.28 kg/m2 Body Surface Area Calculated 1.7 m2 :29 Temperature 97.6 f Pulse 92 /min Comments: Pattern: Regular Respiration Rate 16 /min Comments: Pattern: Unlabored BP Systolic 108 mm[Hg] Comments: Patient Position: Sitting; Cuff Location: Left Arm; Cuff Size: Standard BP Diastolic 70 mm[Hg] Comments: Patient Position: Sitting; Cuff Location: Left Arm; Cuff Size: Standard Weight 137 lb Height 65.75 in Body Mass Index Calculated 22.28 kg/m2 Body Surface Area Calculated 1.7 m2 :42 Temperature 98 f Comments: Method: Oral Pulse 80 /min Comments: Pattern: Regular Respiration Rate 16 /min Comments: Pattern: Unlabored BP Systolic 118 mm[Hg] Comments: Patient Position: Sitting; Cuff Location: Left Arm; Cuff Size: Standard BP Diastolic 78 mm[Hg] Comments: Patient Position: Sitting; Cuff Location: Left Arm; Cuff Size: Standard Weight 143 lb Height 65.75 in Body Mass Index Calculated 23.26 kg/m2 Body Surface Area Calculated 1.73 m2 :07 Temperature 97.5 f Pulse 102 /min Comments: Pattern: Regular Respiration Rate 16 /min Comments: Pattern: Unlabored BP Systolic 110 mm[Hg] Comments: Patient Position: Sitting; Cuff Location: Left Arm; Cuff Size: Standard BP Diastolic 88 mm[Hg] Comments: Patient Position: Sitting; Cuff Location: Left Arm; Cuff Size: Standard :06 Temperature 98 f Comments: Method: Oral Pulse 85 /min Comments: Pattern: Regular Respiration Rate 16 /min Comments: Pattern: Unlabored O2 SAT 98 % Comments: Room air BP Systolic 102 mm[Hg] Comments: Patient Position: Sitting; Cuff Location: Left Arm; Cuff Size: Standard BP Diastolic 70 mm[Hg] Comments: Patient Position: Sitting; Cuff Location: Left Arm; Cuff Size: Standard Weight 149 lb Height 65.75 in Body Mass Index Calculated 24.23 kg/m2 Body Surface Area Calculated 1.76 m2 :37 Temperature 98 f Pulse 92 /min Comments: Pattern: Regular Respiration Rate 16 /min Comments: Pattern: Unlabored BP Systolic 116 mm[Hg] Comments: Patient Position: Sitting; Cuff Location: Left Arm; Cuff Size: Standard BP Diastolic 82 mm[Hg] Comments: Patient Position: Sitting; Cuff Location: Left Arm; Cuff Size: Standard Weight 149 lb Height 65.75 in Body Mass Index Calculated 24.23 kg/m2 Body Surface Area Calculated 1.76 m2 :26 Temperature 97.5 f Pulse 84 /min Comments: Pattern: Regular Respiration Rate 16 /min Comments: Pattern: Unlabored BP Systolic 116 mm[Hg] Comments: Patient Position: Sitting; Cuff Location: Left Arm; Cuff Size: Standard BP Diastolic 80 mm[Hg] Comments: Patient Position: Sitting; Cuff Location: Left Arm; Cuff Size: Standard Weight 128 lb Height 65.75 in Body Mass Index Calculated 20.82 kg/m2 Body Surface Area Calculated 1.65 m2 :38 Temperature 97.9 f Pulse 80 /min Comments: Pattern: Regular Respiration Rate 16 /min Comments: Pattern: Unlabored BP Systolic 116 mm[Hg] Comments: Patient Position: Sitting; Cuff Location: Left Arm; Cuff Size: Standard BP Diastolic 80 mm[Hg] Comments: Patient Position: Sitting; Cuff Location: Left Arm; Cuff Size: Standard Weight 128 lb Height 65.75 in Body Mass Index Calculated 20.82 kg/m2 Body Surface Area Calculated 1.65 m2 :59 Temperature 98.1 f Comments: Method: Oral Pulse 82 /min Comments: Pattern: Regular Respiration Rate 16 /min BP Systolic 112 mm[Hg] Comments: Patient Position: Sitting; Cuff Location: Left Arm; Cuff Size: Standard BP Diastolic 70 mm[Hg] Comments: Patient Position: Sitting; Cuff Location: Left Arm; Cuff Size: Standard Weight 128 lb Height 65.75 in Body Mass Index Calculated 20.82 kg/m2 Body Surface Area Calculated 1.65 m2 :29 Temperature 99.1 f Pulse 92 /min Comments: Pattern: Regular Respiration Rate 16 /min Comments: Pattern: Unlabored BP Systolic 102 mm[Hg] Comments: Patient Position: Sitting; Cuff Location: Left Arm; Cuff Size: Large BP Diastolic 68 mm[Hg] Comments: Patient Position: Sitting; Cuff Location: Left Arm; Cuff Size: Large Weight 128 lb Height 65.75 in Body Mass Index Calculated 20.82 kg/m2 Body Surface Area Calculated 1.65 m2 :02 Temperature 97.5 f Pulse 80 /min Comments: Pattern: Regular Respiration Rate 16 /min Comments: Pattern: Unlabored BP Systolic 120 mm[Hg] Comments: Patient Position: Sitting; Cuff Location: Left Arm; Cuff Size: Large BP Diastolic 84 mm[Hg] Comments: Patient Position: Sitting; Cuff Location: Left Arm; Cuff Size: Large Weight 128 lb Height 65.75 in Body Mass Index Calculated 20.82 kg/m2 Body Surface Area Calculated 1.65 m2 :08 Temperature 98.5 f Pulse 80 /min Comments: Pattern: Regular Respiration Rate 16 /min Comments: Pattern: Unlabored BP Systolic 108 mm[Hg] Comments: Patient Position: Sitting; Cuff Location: Left Arm; Cuff Size: Standard BP Diastolic 70 mm[Hg] Comments: Patient Position: Sitting; Cuff Location: Left Arm; Cuff Size: Standard Weight 128 lb Height 65.75 in Body Mass Index Calculated 20.82 kg/m2 Body Surface Area Calculated 1.65 m2 :15 O2 SAT 98 % Comments: Room air :14 Pulse 80 /min Comments: Pattern: Regular BP Systolic 110 mm[Hg] Comments: Patient Position: Standing; Cuff Location: Left Arm; Cuff Size: Standard BP Diastolic 60 mm[Hg] Comments: Patient Position: Standing; Cuff Location: Left Arm; Cuff Size: Standard :14 Pulse 78 /min Comments: Pattern: Regular BP Systolic 108 mm[Hg] Comments: Patient Position: Sitting; Cuff Location: Left Arm; Cuff Size: Standard BP Diastolic 68 mm[Hg] Comments: Patient Position: Sitting; Cuff Location: Left Arm; Cuff Size: Standard :14 Pulse 56 /min Comments: Pattern: Regular BP Systolic 118 mm[Hg] Comments: Patient Position: Supine; Cuff Location: Left Arm; Cuff Size: Standard BP Diastolic 56 mm[Hg] Comments: Patient Position: Supine; Cuff Location: Left Arm; Cuff Size: Standard :14 Temperature 98.7 f Pulse 96 /min Comments: Pattern: Regular Respiration Rate 16 /min Comments: Pattern: Unlabored BP Systolic 110 mm[Hg] Comments: Patient Position: Sitting; Cuff Location: Left Arm; Cuff Size: Standard BP Diastolic 70 mm[Hg] Comments: Patient Position: Sitting; Cuff Location: Left Arm; Cuff Size: Standard Weight 128 lb Height 65.75 in Body Mass Index Calculated 20.82 kg/m2 Body Surface Area Calculated 1.65 m2 :23 Temperature 98.3 f Pulse 84 /min Comments: Pattern: Regular Respiration Rate 16 /min Comments: Pattern: Unlabored BP Systolic 120 mm[Hg] Comments: Patient Position: Sitting; Cuff Location: Left Arm; Cuff Size: Large BP Diastolic 76 mm[Hg] Comments: Patient Position: Sitting; Cuff Location: Left Arm; Cuff Size: Large Weight 130 lb Height 65.75 in Body Mass Index Calculated 21.14 kg/m2 Body Surface Area Calculated 1.66 m2 :16 Temperature 98.6 f Pulse 72 /min Comments: Pattern: Regular Respiration Rate 16 /min Comments: Pattern: Unlabored BP Systolic 102 mm[Hg] Comments: Patient Position: Sitting; Cuff Location: Left Arm; Cuff Size: Standard BP Diastolic 64 mm[Hg] Comments: Patient Position: Sitting; Cuff Location: Left Arm; Cuff Size: Standard Weight 129 lb Height 65.75 in Body Mass Index Calculated 20.98 kg/m2 Body Surface Area Calculated 1.66 m2 :04 Temperature 97.9 f Pulse 92 /min Comments: Pattern: Regular Respiration Rate 18 /min Comments: Pattern: Unlabored BP Systolic 110 mm[Hg] Comments: Patient Position: Sitting; Cuff Location: Left Arm; Cuff Size: Standard BP Diastolic 80 mm[Hg] Comments: Patient Position: Sitting; Cuff Location: Left Arm; Cuff Size: Standard Weight 130 lb Height 65.75 in Body Mass Index Calculated 21.14 kg/m2 Body Surface Area Calculated 1.66 m2 :14 Temperature 98 f Pulse 100 /min Comments: Pattern: Regular Respiration Rate 18 /min Comments: Pattern: Unlabored BP Systolic 110 mm[Hg] Comments: Patient Position: Sitting; Cuff Location: Left Arm; Cuff Size: Standard BP Diastolic 78 mm[Hg] Comments: Patient Position: Sitting; Cuff Location: Left Arm; Cuff Size: Standard Weight 133 lb Height 65.75 in Body Mass Index Calculated 21.63 kg/m2 Body Surface Area Calculated 1.68 m2 :24 Temperature 98.5 f Pulse 76 /min Comments: Pattern: Regular Respiration Rate 16 /min Comments: Pattern: Unlabored BP Systolic 110 mm[Hg] Comments: Patient Position: Sitting; Cuff Location: Left Arm; Cuff Size: Standard BP Diastolic 76 mm[Hg] Comments: Patient Position: Sitting; Cuff Location: Left Arm; Cuff Size: Standard Weight 133 lb Height 65.75 in Body Mass Index Calculated 21.63 kg/m2 Body Surface Area Calculated 1.68 m2 :38 Temperature 98.5 f Pulse 84 /min Comments: Pattern: Regular Respiration Rate 16 /min Comments: Pattern: Unlabored BP Systolic 118 mm[Hg] Comments: Patient Position: Sitting; Cuff Location: Left Arm; Cuff Size: Large BP Diastolic 74 mm[Hg] Comments: Patient Position: Sitting; Cuff Location: Left Arm; Cuff Size: Large Weight 140 lb Height 65.75 in Body Mass Index Calculated 22.77 kg/m2 Body Surface Area Calculated 1.71 m2 :38 Temperature 97.4 f Pulse 80 /min Comments: Pattern: Regular Respiration Rate 18 /min Comments: Pattern: Unlabored BP Systolic 100 mm[Hg] Comments: Patient Position: Sitting; Cuff Location: Left Arm; Cuff Size: Large BP Diastolic 68 mm[Hg] Comments: Patient Position: Sitting; Cuff Location: Left Arm; Cuff Size: Large Weight 138 lb Height 65.75 in Body Mass Index Calculated 22.44 kg/m2 Body Surface Area Calculated 1.7 m2 :32 Temperature 96.7 f Pulse 69 /min Comments: Pattern: Regular Respiration Rate 16 /min Comments: Pattern: Unlabored BP Systolic 116 mm[Hg] Comments: Patient Position: Sitting; Cuff Location: Left Arm; Cuff Size: Standard BP Diastolic 78 mm[Hg] Comments: Patient Position: Sitting; Cuff Location: Left Arm; Cuff Size: Standard Weight 139 lb Height 65.75 in Body Mass Index Calculated 22.61 kg/m2 Body Surface Area Calculated 1.71 m2 :05 Temperature 97.6 f :24 Temperature 98.4 f Comments: Method: Oral Pulse 68 /min Comments: Pattern: Regular Respiration Rate 16 /min Comments: Pattern: Unlabored BP Systolic 106 mm[Hg] Comments: Patient Position: Sitting; Cuff Location: Left Arm; Cuff Size: Standard BP Diastolic 72 mm[Hg] Comments: Patient Position: Sitting; Cuff Location: Left Arm; Cuff Size: Standard Weight 143 lb Height 65.75 in Body Mass Index Calculated 23.26 kg/m2 Body Surface Area Calculated 1.73 m2 :30 Temperature 98.1 f Pulse 78 /min Comments: Pattern: Regular Respiration Rate 16 /min Comments: Pattern: Unlabored BP Systolic 110 mm[Hg] Comments: Patient Position: Sitting; Cuff Location: Left Arm; Cuff Size: Large BP Diastolic 68 mm[Hg] Comments: Patient Position: Sitting; Cuff Location: Left Arm; Cuff Size: Large Weight 146 lb Height 65.75 in Body Mass Index Calculated 23.74 kg/m2 Body Surface Area Calculated 1.75 m2 :29 Temperature 97.7 f Pulse 76 /min Comments: Pattern: Regular Respiration Rate 16 /min Comments: Pattern: Unlabored BP Systolic 120 mm[Hg] Comments: Patient Position: Sitting; Cuff Location: Left Arm; Cuff Size: Standard BP Diastolic 80 mm[Hg] Comments: Patient Position: Sitting; Cuff Location: Left Arm; Cuff Size: Standard Weight 146 lb Height 65.75 in Body Mass Index Calculated 23.74 kg/m2 Body Surface Area Calculated 1.75 m2 :16 Temperature 97.4 f Pulse 92 /min Comments: Pattern: Regular Respiration Rate 16 /min Comments: Pattern: Unlabored BP Systolic 108 mm[Hg] Comments: Patient Position: Sitting; Cuff Location: Left Arm; Cuff Size: Standard BP Diastolic 80 mm[Hg] Comments: Patient Position: Sitting; Cuff Location: Left Arm; Cuff Size: Standard Weight 146 lb Height 65.75 in Body Mass Index Calculated 23.74 kg/m2 Body Surface Area Calculated 1.75 m2 :04 Temperature 97 f Comments: Method: Oral Pulse 84 /min Comments: Pattern: Regular Respiration Rate 18 /min Comments: Pattern: Unlabored BP Systolic 122 mm[Hg] Comments: Patient Position: Sitting; Cuff Location: Left Arm; Cuff Size: Standard BP Diastolic 76 mm[Hg] Comments: Patient Position: Sitting; Cuff Location: Left Arm; Cuff Size: Standard Weight 149 lb Height 66.25 in Body Mass Index Calculated 23.87 kg/m2 Body Surface Area Calculated 1.77 m2 :39 Temperature 98.2 f Pulse 80 /min Comments: Pattern: Regular Respiration Rate 16 /min Comments: Pattern: Unlabored BP Systolic 124 mm[Hg] Comments: Patient Position: Sitting; Cuff Location: Left Arm; Cuff Size: Standard BP Diastolic 66 mm[Hg] Comments: Patient Position: Sitting; Cuff Location: Left Arm; Cuff Size: Standard Weight 149 lb Height 66.25 in Body Mass Index Calculated 23.87 kg/m2 Body Surface Area Calculated 1.77 m2 :11 Temperature 98.2 f Pulse 80 /min Comments: Pattern: Regular Respiration Rate 16 /min Comments: Pattern: Unlabored BP Systolic 116 mm[Hg] Comments: Patient Position: Sitting; Cuff Location: Left Arm; Cuff Size: Large BP Diastolic 74 mm[Hg] Comments: Patient Position: Sitting; Cuff Location: Left Arm; Cuff Size: Large Weight 145 lb Height 66.25 in Body Mass Index Calculated 23.23 kg/m2 Body Surface Area Calculated 1.75 m2 :52 Temperature 98.9 f Pulse 84 /min Comments: Pattern: Regular Respiration Rate 18 /min Comments: Pattern: Unlabored BP Systolic 108 mm[Hg] Comments: Patient Position: Sitting; Cuff Location: Left Arm; Cuff Size: Standard BP Diastolic 80 mm[Hg] Comments: Patient Position: Sitting; Cuff Location: Left Arm; Cuff Size: Standard Weight 147 lb :44 Temperature 97.8 f Pulse 80 /min Comments: Pattern: Regular Respiration Rate 18 /min Comments: Pattern: Unlabored BP Systolic 106 mm[Hg] Comments: Patient Position: Sitting; Cuff Location: Left Arm; Cuff Size: Standard BP Diastolic 72 mm[Hg] Comments: Patient Position: Sitting; Cuff Location: Left Arm; Cuff Size: Standard Weight 146 lb :48 Pulse 76 /min Comments: Pattern: Regular Respiration Rate 18 /min Comments: Pattern: Unlabored BP Systolic 122 mm[Hg] Comments: Patient Position: Sitting; Cuff Location: Left Arm; Cuff Size: Standard BP Diastolic 80 mm[Hg] Comments: Patient Position: Sitting; Cuff Location: Left Arm; Cuff Size: Standard Weight 148 lb :08 Temperature 98.2 f Pulse 80 /min Comments: Pattern: Regular Respiration Rate 18 /min Comments: Pattern: Unlabored BP Systolic 114 mm[Hg] Comments: Patient Position: Sitting; Cuff Location: Left Arm; Cuff Size: Standard BP Diastolic 84 mm[Hg] Comments: Patient Position: Sitting; Cuff Location: Left Arm; Cuff Size: Standard :41 Temperature 98.2 f Comments: Method: Oral Pulse 68 /min Comments: Pattern: Regular Respiration Rate 18 /min Comments: Pattern: Unlabored BP Systolic 112 mm[Hg] Comments: Patient Position: Sitting; Cuff Location: Left Arm; Cuff Size: Standard BP Diastolic 68 mm[Hg] Comments: Patient Position: Sitting; Cuff Location: Left Arm; Cuff Size: Standard :08 Temperature 98 f Comments: Method: Oral Pulse 76 /min Comments: Pattern: Regular Respiration Rate 18 /min Comments: Pattern: Unlabored BP Systolic 110 mm[Hg] Comments: Patient Position: Sitting; Cuff Location: Left Arm; Cuff Size: Large BP Diastolic 64 mm[Hg] Comments: Patient Position: Sitting; Cuff Location: Left Arm; Cuff Size: Large Weight 154.125 lb Height 67 in Body Mass Index Calculated 24.14 kg/m2 Body Surface Area Calculated 1.81 m2 :30 Pulse 80 /min Comments: Pattern: Regular Respiration Rate 16 /min Comments: Pattern: Unlabored BP Systolic 110 mm[Hg] Comments: Patient Position: Sitting; Cuff Location: Left Arm; Cuff Size: Standard BP Diastolic 72 mm[Hg] Comments: Patient Position: Sitting; Cuff Location: Left Arm; Cuff Size: Standard Weight 155 lb Results Date Description Value Details :56 CBC W/Diff, Automated Comments: [facility] [id number] [place], [address] Absolute Lymph 1.33 {X10_3/ul} (Normal) Range: 0.83-4.51 Absolute Neut 11.5 {X10_3/uL} (Abnormal) Range: 2.0-7.7 IM GRAN % 0.100 % (Normal) Range: 0.0-0.9 Comments: IG% - Immature Granulocytes (promyelocytes, myelocytes andmetamyelocytes) > 1% indicates that a LEFT SHIFT is Present. BASO% 0.1 % (Normal) Range: 0-1 EO% 0.1 % (Normal) Range: 0-5 MONO% 7.5 % (Normal) Range: 0-10 LY% 9.5 % (Abnormal) Range: 19-41 NEUT% 82.7 % (Abnormal) Range: 47-70 MPV 10.0 fL (Normal) Range: 6.2-12.0 PLT 304 K/mm3 (Normal) Range: 150-450 RDW SD 48.7 fL (Abnormal) Range: 35.1-43.9 RDW CV 13.5 % (Normal) Range: 11.6-14.6 MCHC 32.5 {g/gl} (Normal) Range: 32-36 MCH 32.2 pg (Abnormal) Range: 27.0-32.0 MCV 99.2 fL (Abnormal) Range: 81-99 HCT 39.1 % (Normal) Range: 37-47 HGB 12.7 g/dL (Normal) Range: 12.0-15.0 RBC 3.94 {M/mm3} (Abnormal) Range: 4.2-5.4 WBC 14.0 K/mm3 (Abnormal) Range: 4.4-11.0 [id number] Comprehensive Metabolic Profil Comments: [facility] [id number] [place], [address] GAP 9 (Normal) Range: 5-15 CO2 26.0 mmol/L (Normal) Range: 21.0-32.0 CL 105 mmol/L (Normal) Range: 98-107 K 4.8 mmol/L (Normal) Range: 3.5-5.1 NA 140 mmol/L (Normal) Range: 136-145 T BILI 0.60 mg/dL (Normal) Range: 0.20-1.00 ALT 21 U/L (Normal) Range: 13-56 ALK P 44 U/L (Abnormal) Range: 45-117 AST 9 U/L (Abnormal) Range: 15-37 CA 9.0 mg/dL (Normal) Range: 8.5-10.1 A/G 1.3 {RATIO} (Normal) Range: 0.9-2.4 GLOB 3.2 g/dL (Normal) Range: 2.2-4.2 ALB 4.1 g/dL (Normal) Range: 3.2-5.0 T PROT 7.3 g/dL (Normal) Range: 6.4-8.2 BUN/CRE 12.2 {RATIO} (Normal) Range: 10-20 EST GFR - AA 93 mL/min (Normal) Comments: GFR Calc EST GFR 77 mL/min (Normal) Comments: Non- GFR Calc CREAT,SERUM 0.82 mg/dL (Normal) Range: 0.55-1.02 Comments: The validity of the calculated GFR AND GFRAA in patients over70 years has not been determined. Clinical correlation isessential. BUN 10 mg/dL (Normal) Range: 7-18 GLU 89 mg/dL (Normal) Range: 74-106 Comments: Please note revised GLUCOSE reference range /02/2018. [id number] URINE ARELY CULTURE-IDENTIFICATN Comments: PATIENT NOT FASTINGPERFORMED BY: [facility] [id number] [facility] [id number] Information: SRC: ([id number]) Result 1 NG36 (Normal) Comments: No growth in 36 - 48 hours. Urine Culture,Comprehensive Final report (Normal) [id number] Urinalysis, Office ([id number]) UA - LEUKOCYTE ESTERASE Large (Normal) UA - NITRITE Positive (Normal) URINE UROBILINGN SPRING TIMED 2 mg/dL (Normal) UA - PROTEIN 300 mg/dL (Normal) UA - PH 7 (Normal) UA - BLOOD Hemolyzed Large (Normal) UA - SPECIFIC GRAVITY 1.020 (Normal) UA - KETONES 15 mg/dL (Abnormal) UA - BILIRUBIN Large (Normal) UA - GLUCOSE Negative (Normal) [id number] Culture, Urine Comments: [facility] [id number] [place], [place], [id number] CUUR See Note (Normal) Comments: Urine CultureORGANISM 1: Presumptive E. coliColony Count 11,000-25,000 Presumptive E. coli: REACTION Amoxacillin/Clavulanic Acid $ >=32 R Ampicillin $ >=32 R Ampicillin/Sulbactam $ >=32 R Cefazolin $ 8 S Cefepime $ &l t;=1 S Ceftriaxone $ <=1 S Ciprofloxacin $ <=0.25 S ESBL - Ertapenim $$$ <=0.5 S Gentamicin $ >=16 R Imipenem *NF <=0.25 S Levofloxacin $ <=0.12 S Nitr ofurantoin $ <=16 S Piperacillin/Tazobactam $$ 16 S Tobramycin $ 8 I Trimethoprim/Sulfametho $ >=320 R(NF) indicates non-formulary drug at [facility]. Approval by Infectious Disease Specialist required before non-formulary drugs may be ordered and/or dispensed. [id number] Urinalysis, Complete Comments: How was Urine Obtained? CLEAN [facility] [id number] [facility] [address] [place], [place], [id number] CA OX CRYSTAL 1+ {/hpf} (Normal) MUCUS, URINE 0 SEEN {/hpf} (Normal) BACTERIA 1+ {/hpf} (Normal) SQUAM EPI 0-5 SEEN {/hpf} (Normal) Range: 5-10 RBC-UA > 100 SEEN {/hpf} (Normal) Range: 0-5 WBC 25-50 SEEN {/hpf} (Normal) Range: 0-5 LEUK ESTERASE 500 /ul (Abnormal) OCCULT BLOOD-UR 250 /ul (Abnormal) NITRITE UR Negative (Normal) UROBILI Normal mg/dL (Normal) PROT DIPSTX 30 mg/dL (Abnormal) pH UR 8.0 (Normal) Range: 5.0 - 8.0 SP.GR. DIPSTX 1.010 (Normal) Range: 1.002-1.030 KETONE UR Negative mg/dL (Normal) BILIRUBIN URINE Negative mg/dL (Normal) GLUCOSE, UR Normal mg/dL (Normal) CLARITY Cloudy (Normal) COLOR Yellow (Normal) [id number] CBC (AUTO) ([id number]) Comments: PATIENT NOT FASTINGPERFORMED BY: [facility] [facility] [id number] Platelets 303 {x10E3/uL} (Normal) Range: 150-379 RDW 14.5 % (Normal) Range: 12.3-15.4 MCHC 33.9 g/dL (Normal) Range: 31.5-35.7 MCH 32.4 pg (Normal) Range: 26.6-33.0 MCV 96 fL (Normal) Range: 79-97 Hematocrit 37.5 % (Normal) Range: 34.0-46.6 Hemoglobin 12.7 g/dL (Normal) Range: 11.1-15.9 RBC 3.92 {x10E6/uL} (Normal) Range: 3.77-5.28 WBC 7.9 {x10E3/uL} (Normal) Range: 3.4-10.8 [id number] MICROALBUMIN: CREATININE RATIO Comments: PATIENT NOT FASTINGPERFORMED BY: [email or web address] [id number] ([id number]) AND ([id number]) Alb/Creat Ratio 4.1 {mg/g_creat} (Normal) Range: 0.0-30.0 Comments: Normal: 0.0 - 30.0 Albuminuria: 31.0 - 300.0 Clinical albuminuria: >300.0 Albumin, Urine 6.7 ug/mL (Normal) Creatinine, Urine 161.5 mg/dL (Normal) [id number] METABOLIC PANEL, COMPREHENSIVE Comments: PATIENT NOT FASTINGPERFORMED BY: [facility] [id number]; appt 12/05 (38909) ALT (SGPT) 14 [iU]/L (Normal) Range: 0-32 AST (SGOT) 15 [iU]/L (Normal) Range: 0-40 Alkaline Phosphatase 39 [iU]/L (Normal) Range: 39-117 Bilirubin, Total 0.3 mg/dL (Normal) Range: 0.0-1.2 A/G Ratio 2.0 (Normal) Range: 1.2-2.2 Globulin, Total 2.4 g/dL (Normal) Range: 1.5-4.5 Albumin 4.7 g/dL (Normal) Range: 3.5-5.5 Protein, Total 7.1 g/dL (Normal) Range: 6.0-8.5 Calcium 9.3 mg/dL (Normal) Range: 8.7-10.2 Carbon Dioxide, Total 21 mmol/L (Normal) Range: 20-29 Chloride 103 mmol/L (Normal) Range: 96-106 Potassium 4.1 mmol/L (Normal) Range: 3.5-5.2 Sodium 141 mmol/L (Normal) Range: 134-144 BUN/Creatinine Ratio 7 (Abnormal) Range: 9-23 eGFR If Africn Am 89 mL/min/1.73 (Normal) eGFR If NonAfricn Am 77 mL/min/1.73 (Normal) Creatinine 0.85 mg/dL (Normal) Range: 0.57-1.00 BUN 6 mg/dL (Normal) Range: 6-24 Glucose 94 mg/dL (Normal) Range: 65-99 3-Fcc-432644:22 CBC W/Diff, Automated Comments: [facility] [address] [place], [address] Absolute Lymph 1.79 {X10_3/ul} (Normal) Range: 0.83-4.51 Absolute Neut 3.9 {X10_3/uL} (Normal) Range: 2.0-7.7 IM GRAN % 0.200 % (Normal) Range: 0.0-0.9 Comments: IG% - Immature Granulocytes (promyelocytes, myelocytes andmetamyelocytes) > 1% indicates that a LEFT SHIFT is Present. BASO% 0.5 % (Normal) Range: 0-1 EO% 0.3 % (Normal) Range: 0-5 MONO% 8.3 % (Normal) Range: 0-10 LY% 28.4 % (Normal) Range: 19-41 NEUT% 62.3 % (Normal) Range: 47-70 MPV 9.7 fL (Normal) Range: 6.2-12.0 PLT 275 K/mm3 (Normal) Range: 150-450 RDW SD 49.3 fL (Abnormal) Range: 35.1-43.9 RDW CV 13.8 % (Normal) Range: 11.6-14.6 MCHC 33.8 {g/gl} (Normal) Range: 32-36 MCH 33.5 pg (Abnormal) Range: 27.0-32.0 MCV 99.0 fL (Normal) Range: 81-99 HCT 39.0 % (Normal) Range: 37-47 HGB 13.2 g/dL (Normal) Range: 12.0-15.0 RBC 3.94 {M/mm3} (Abnormal) Range: 4.2-5.4 WBC 6.3 K/mm3 (Normal) Range: 4.4-11.0 8-Ymw-200866:[id number] Comprehensive Metabolic Profil Comments: [facility] [address] [place], [place], [id number] GAP 8 (Normal) Range: 5-15 CO2 25.0 mmol/L (Normal) Range: 21.0-32.0 CL 105 mmol/L (Normal) Range: 98-107 K 4.1 mmol/L (Normal) Range: 3.5-5.1 NA 138 mmol/L (Normal) Range: 136-145 T BILI 0.70 mg/dL (Normal) Range: 0.20-1.00 ALT 20 U/L (Normal) Range: 13-56 ALK P 46 U/L (Normal) Range: 45-117 AST 15 U/L (Normal) Range: 15-37 CA 8.9 mg/dL (Normal) Range: 8.5-10.1 A/G 1.3 {RATIO} (Normal) Range: 0.9-2.4 GLOB 3.3 g/dL (Normal) Range: 2.2-4.2 ALB 4.3 g/dL (Normal) Range: 3.2-5.0 T PROT 7.6 g/dL (Normal) Range: 6.4-8.2 BUN/CRE 8.5 {RATIO} (Abnormal) Range: 10-20 EST GFR - AA 110 mL/min (Normal) Comments: GFR Calc EST GFR 91 mL/min (Normal) Comments: Non- GFR Calc CREAT,SERUM 0.71 mg/dL (Normal) Range: 0.55-1.02 Comments: The validity of the calculated GFR AND GFRAA in patients over70 years has not been determined. Clinical correlation isessential. BUN 6 mg/dL (Abnormal) Range: 7-18 GLU 94 mg/dL (Normal) Range: 74-106 Comments: Please note revised GLUCOSE reference range pktrbzazi72/02/2018. 0-[id number]-[id number]:22 CRP Comments: [facility] [address] [place], [id number] C-REACTIVE PROT < 2.90 mg/L (Normal) Range: 0.0-3.0 Comments: C-Reactive Protein (CRP) provides useful information for thediagnosis, therapy and monitoring of inflammatory processesand associated diseases. For the evaluation of Relative Riskfor Cardiovascular Dise ase, a High Sensitivity CRP (HSCRP)should be ordered. [id number] Erythrocyte Sed Rate Comments: [place] [address] [place], [address] SED RATE 3 mm/h (Normal) Range: 0-30 3-Vtq-615262:22 Hemoglobin A1c Comments: [place] [address] [place], [address] HGB A1C 5.7 % (Normal) Range: 4.2-6.3 3-Oou-173150:22 Lipid Profile Comments: [facility] [address] [place] [place], [id number] VLDL 21 mg/dL (Normal) Range: 5-40 LDL 102 mg/dL (Normal) Range: 0-130 HDL 77 mg/dL (Normal) Comments: The drugs N-Acetylcysteine and Metamizole may falselydepress this assay. Reference Range HDL <40 mg/dL Low HDL Cholesterol HDL >or= 60 mg/dL High HDL Cholesterol TRIG 106 mg/dL (Normal) Comments: The drugs N-Acetylcysteine and Metamizole may falselydepress this assay.Serum Triglycerides Reference Interval Normal <150 mg/dL Borderline high 150 - 199 mg/dL High 200 - 499 mg/dL Very High > or = 500 mg/dL CHOL 200 mg/dL (Normal) Comments: <200 mg/dL Desirable 200-240 mg/dL Borderline >240 mg/dL High Risk 5-Wkp-[id number]:22 Vitamin D,25 Hydroxy Comments: [place] [address] [place], [address] Vitamin D 25-OH 36.0 ng/mL (Normal) Range: 29.95-100.01 Comments: Vitamin D 25(OH) Status Range Deficiency <20 ng/mL (50nmol/L) Insuffciency 20 - 30 ng/mL (50 - 75 nmol/L) Sufficiency 30 - 100 ng/mL (75 - 250 nmol/L) Toxicity >100 ng/mL (>250 nmol/L) 68-Nwn-405395:37 CBC W/Diff, Automated Comments: [facility] [address] [place], [address] ; appt 5/2 Absolute Lymph 2.05 {X10_3/ul} (Normal) Range: 0.83-4.51 Absolute Neut 2.7 {X10_3/uL} (Normal) Range: 2.0-7.7 IM GRAN % 0.200 % (Normal) Range: 0.0-0.9 Comments: IG% - Immature Granulocytes (promyelocytes, myelocytes andmetamyelocytes) > 1% indicates that a LEFT SHIFT is Present. BASO% 0.5 % (Normal) Range: 0-1 EO% 1.8 % (Normal) Range: 0-5 MONO% 10.7 % (Abnormal) Range: 0-10 LY% 37.2 % (Normal) Range: 19-41 NEUT% 49.6 % (Normal) Range: 47-70 MPV 10.4 fL (Normal) Range: 6.2-12.0 PLT 276 K/mm3 (Normal) Range: 150-450 RDW SD 49.8 fL (Abnormal) Range: 35.1-43.9 RDW CV 13.9 % (Normal) Range: 11.6-14.6 MCHC 32.7 {g/gl} (Normal) Range: 32-36 MCH 32.6 pg (Abnormal) Range: 27.0-32.0 MCV 99.7 fL (Abnormal) Range: 81-99 HCT 39.2 % (Normal) Range: 37-47 HGB 12.8 g/dL (Normal) Range: 12.0-15.0 RBC 3.93 {M/mm3} (Abnormal) Range: 4.2-5.4 WBC 5.5 K/mm3 (Normal) Range: 4.4-11.0 87-Hzr-926225:37 Comprehensive Metabolic Profil Comments: [facility] [address] [place], [place], [id number] GAP 8 (Normal) Range: 5-15 CO2 24.0 mmol/L (Normal) Range: 21.0-32.0 CL 107 mmol/L (Normal) Range: 98-107 K 3.8 mmol/L (Normal) Range: 3.5-5.1 NA 139 mmol/L (Normal) Range: 136-145 T BILI 0.50 mg/dL (Normal) Range: 0.20-1.00 ALT 19 U/L (Normal) Range: 13-56 ALK P 50 U/L (Normal) Range: 45-117 AST 18 U/L (Normal) Range: 15-37 CA 8.5 mg/dL (Normal) Range: 8.5-10.1 A/G 1.2 {RATIO} (Normal) Range: 0.9-2.4 GLOB 3.3 g/dL (Normal) Range: 2.2-4.2 ALB 4.0 g/dL (Normal) Range: 3.2-5.0 T PROT 7.3 g/dL (Normal) Range: 6.4-8.2 BUN/CRE 10.2 {RATIO} (Normal) Range: 10-20 EST GFR - AA 98 mL/min (Normal) Comments: GFR Calc EST GFR 81 mL/min (Normal) Comments: Non- GFR Calc CREAT,SERUM 0.79 mg/dL (Normal) Range: 0.55-1.02 Comments: The validity of the calculated GFR AND GFRAA in patients over70 years has not been determined. Clinical correlation isessential. BUN 8 mg/dL (Normal) Range: 7-18 GLU 82 mg/dL (Normal) Range: 74-106 Comments: Please note revised GLUCOSE reference range qwtzvykiw70/02/2018. 91-Kxn-341162:37 Hemoglobin A1c Comments: [facility] [address] [place], [place], [id number] HGB A1C 5.9 % (Normal) Range: 4.2-6.3 11-Upz-242774:37 Lipid Profile Comments: [facility] [address] [place], [address] VLDL 16 mg/dL (Normal) Range: 5-40 LDL 98 mg/dL (Normal) Range: 0-130 HDL 69 mg/dL (Normal) Comments: The drugs N-Acetylcysteine and Metamizole may falselydepress this assay. Reference Range HDL <40 mg/dL Low HDL Cholesterol HDL >or= 60 mg/dL High HDL Cholesterol TRIG 79 mg/dL (Normal) Comments: The drugs N-Acetylcysteine and Metamizole may falselydepress this assay.Serum Triglycerides Reference Interval Normal <150 mg/dL Borderline high 150 - 199 mg/dL High 200 - 499 mg/dL Very High > or = 500 mg/dL CHOL 183 mg/dL (Normal) Comments: <200 mg/dL Desirable 200-240 mg/dL Borderline >240 mg/dL High Risk [id number]-[id number]:06 METABOLIC PANEL, COMPREHENSIVE Comments: PATIENT NOT FASTINGPERFORMED BY: [facility] Township[facility]vb[facility] [id number] (12370) ALT (SGPT) 19 [iU]/L (Normal) Range: 0-32 AST (SGOT) 18 [iU]/L (Normal) Range: 0-40 Alkaline Phosphatase, S 34 [iU]/L (Abnormal) Range: 39-117 Bilirubin, Total 0.3 mg/dL (Normal) Range: 0.0-1.2 A/G Ratio 1.7 (Normal) Range: 1.2-2.2 Globulin, Total 2.1 g/dL (Normal) Range: 1.5-4.5 Albumin, Serum 3.6 g/dL (Normal) Range: 3.5-5.5 Protein, Total, Serum 5.7 g/dL (Abnormal) Range: 6.0-8.5 Calcium, Serum 7.9 mg/dL (Abnormal) Range: 8.7-10.2 Carbon Dioxide, Total 21 mmol/L (Normal) Range: 18-29 Chloride, Serum 108 mmol/L (Abnormal) Range: 96-106 Potassium, Serum 4.3 mmol/L (Normal) Range: 3.5-5.2 Sodium, Serum 142 mmol/L (Normal) Range: 134-144 BUN/Creatinine Ratio 11 (Normal) Range: 9-23 eGFR If Africn Am 117 mL/min/1.73 (Normal) eGFR If NonAfricn Am 101 mL/min/1.73 (Normal) Creatinine, Serum 0.64 mg/dL (Normal) Range: 0.57-1.00 BUN 7 mg/dL (Normal) Range: 6-24 Glucose, Serum 84 mg/dL (Normal) Range: 65-99 40-Rbp-208346:26 CBC W/Diff, Automated Comments: [facility] [address] [place], [place], [id number] ; patient coming in today Absolute Lymph 3.42 {X10_3/ul} (Normal) Range: 0.83-4.51 Absolute Neut 5.9 {X10_3/uL} (Normal) Range: 2.0-7.7 IM GRAN % 0.400 % (Normal) Range: 0.0-0.9 Comments: IG% - Immature Granulocytes (promyelocytes, myelocytes andmetamyelocytes) > 1% indicates that a LEFT SHIFT is Present. BASO% 0.2 % (Normal) Range: 0-1 EO% 0.3 % (Normal) Range: 0-5 MONO% 7.5 % (Normal) Range: 0-10 LY% 33.8 % (Normal) Range: 19-41 NEUT% 57.8 % (Normal) Range: 47-70 MPV 8.7 fL (Normal) Range: 6.2-12.0 PLT 525 K/mm3 (Abnormal) Range: 150-450 RDW SD 49.9 fL (Abnormal) Range: 35.1-43.9 RDW CV 14.0 % (Normal) Range: 11.6-14.6 MCHC 32.0 {g/gl} (Normal) Range: 32-36 MCH 31.5 pg (Normal) Range: 27.0-32.0 MCV 98.4 fL (Normal) Range: 81-99 HCT 37.5 % (Normal) Range: 37-47 HGB 12.0 g/dL (Normal) Range: 12.0-15.0 RBC 3.81 {M/mm3} (Abnormal) Range: 4.2-5.4 WBC 10.1 K/mm3 (Normal) Range: 4.4-11.0 43-Itr-083074:26 EBV Acute Prof IgG / IgM Comments: [facility] (refer to report for specific site)refer to report for address and phone number INTERPRETATION Comment (Normal) Comments: EBV Interpretation ChartInterpretation EBV-IgM EA(D)-IgG VCA-IgG EBNA-IgGEBV Seronegative - - - -Early Phase + - - -Acute Primary + +or- + -InfectionConvalescence/Past - +or- + +InfectionReactivated +or- + + +Infection + Antibody Present - Antibody Ab sentPerformed at: [facility] [address] [id number] Director: Sean Daniel PhD, Phone: [phone] EB-NAg [id number] > 600.0 U/mL (Abnormal) Range: 0.0-17.9 Comments: Negative <18.0 Equivocal 18.0 - 21.9 Positive >21.9 EB-VCA [id number] 226.0 U/mL (Abnormal) Range: 0.0-17.9 Comments: Negative <18.0 Equivocal 18.0 - 21.9 Positive >21.9 EB-EA IgG 13066 49.1 U/mL (Abnormal) Range: 0.0-8.9 Comments: Hepatitis A, Hepatitis C and HIV antibodies may cross-reactwith this assay. Negative < 9.0 Equivocal 9.0 - 10.9 Positive >10.9 EB-VCA [id number] < 36.0 U/mL (Normal) Range: 0.0-35.9 Comments: Negative <36.0 Equivocal 36.0 - 43.9 Positive >43.9 33-Zpi-250899:37 Basic Metabolic Profile (BMP) Comments: [facility] [address] [place], [address] GAP 8 (Normal) Range: 5-15 CO2 23.0 mmol/L (Normal) Range: 21.0-32.0 CL 105 mmol/L (Normal) Range: 98-107 K 4.0 mmol/L (Normal) Range: 3.5-5.1 NA 136 mmol/L (Normal) Range: 136-145 CA 9.0 mg/dL (Normal) Range: 8.5-10.1 BUN/CRE 8.6 {RATIO} (Abnormal) Range: 10-20 Estimated CRCL 86.01 ml/min (Normal) EST GFR - AA 112 mL/min (Normal) Comments: GFR Calc EST GFR 93 mL/min (Normal) Comments: Non- GFR Calc CREAT,SERUM 0.70 mg/dL (Normal) Range: 0.55-1.02 Comments: The validity of the calculated GFR AND GFRAA in patients over70 years has not been determined. Clinical correlation isessential. BUN 6 mg/dL (Abnormal) Range: 7-18 GLU 108 mg/dL (Abnormal) Range: 74-106 Comments: Fasting Glucose result from 100 to 125 mg/dLsuggests IMPAIRED HOMEOSTASIS per A.D.A. criteria.Please note revised GLUCOSE reference range jkghhfnol36/02/2018. 92-Bqb-[id number]:37 CBC W/Diff, Automated Comments: [facility] [address] [place], [address] Absolute Lymph 2.00 {X10_3/ul} (Normal) Range: 0.83-4.51 Absolute Neut 6.2 {X10_3/uL} (Normal) Range: 2.0-7.7 IM GRAN % 0.600 % (Normal) Range: 0.0-0.9 Comments: IG% - Immature Granulocytes (promyelocytes, myelocytes andmetamyelocytes) > 1% indicates that a LEFT SHIFT is Present. BASO% 0.1 % (Normal) Range: 0-1 EO% 0.1 % (Normal) Range: 0-5 MONO% 5.8 % (Normal) Range: 0-10 LY% 22.8 % (Normal) Range: 19-41 NEUT% 70.6 % (Abnormal) Range: 47-70 MPV 8.8 fL (Normal) Range: 6.2-12.0 PLT 411 K/mm3 (Normal) Range: 150-450 RDW SD 46.9 fL (Abnormal) Range: 35.1-43.9 RDW CV 13.5 % (Normal) Range: 11.6-14.6 MCHC 33.4 {g/gl} (Normal) Range: 32-36 MCH 31.9 pg (Normal) Range: 27.0-32.0 MCV 95.4 fL (Normal) Range: 81-99 HCT 35.6 % (Abnormal) Range: 37-47 HGB 11.9 g/dL (Abnormal) Range: 12.0-15.0 RBC 3.73 {M/mm3} (Abnormal) Range: 4.2-5.4 WBC 8.8 K/mm3 (Normal) Range: 4.4-11.0 :30 CBC With Differential/Platelet Comments: PERFORMED BY: [facility] TownshipYjjesw3235 [facility] [id number] Information: [facility] PATIENT - NURSE Immature Grans (Abs) 0.0 {x10E3/uL} (Normal) Range: 0.0-0.1 Immature Granulocytes 0 % (Normal) Baso (Absolute) 0.0 {x10E3/uL} (Normal) Range: 0.0-0.2 Eos (Absolute) 0.1 {x10E3/uL} (Normal) Range: 0.0-0.4 Monocytes(Absolute) 0.5 {x10E3/uL} (Normal) Range: 0.1-0.9 Lymphs (Absolute) 2.3 {x10E3/uL} (Normal) Range: 0.7-3.1 Neutrophils (Absolute) 3.9 {x10E3/uL} (Normal) Range: 1.4-7.0 Basos 0 % (Normal) Eos 1 % (Normal) Monocytes 7 % (Normal) Lymphs 34 % (Normal) Neutrophils 58 % (Normal) Platelets 294 {x10E3/uL} (Normal) Range: 150-379 RDW 14.6 % (Normal) Range: 12.3-15.4 MCHC 33.9 g/dL (Normal) Range: 31.5-35.7 MCH 32.5 pg (Normal) Range: 26.6-33.0 MCV 96 fL (Normal) Range: 79-97 Hematocrit 36.0 % (Normal) Range: 34.0-46.6 Hemoglobin 12.2 g/dL (Normal) Range: 11.1-15.9 RBC 3.75 {x10E6/uL} (Abnormal) Range: 3.77-5.28 WBC 6.8 {x10E3/uL} (Normal) Range: 3.4-10.8 53-Nbg-278548:30 Comp. Metabolic Panel (14) Comments: PERFORMED BY: [employer] [facility] [id number]; can review at upcoming appt ALT (SGPT) 14 [iU]/L (Normal) Range: 0-32 AST (SGOT) 16 [iU]/L (Normal) Range: 0-40 Alkaline Phosphatase, S 31 [iU]/L (Abnormal) Range: 39-117 Bilirubin, Total 0.5 mg/dL (Normal) Range: 0.0-1.2 A/G Ratio 2.1 (Normal) Range: 1.2-2.2 Globulin, Total 2.1 g/dL (Normal) Range: 1.5-4.5 Albumin, Serum 4.5 g/dL (Normal) Range: 3.5-5.5 Protein, Total, Serum 6.6 g/dL (Normal) Range: 6.0-8.5 Calcium, Serum 9.1 mg/dL (Normal) Range: 8.7-10.2 Carbon Dioxide, Total 21 mmol/L (Normal) Range: 18-29 Chloride, Serum 99 mmol/L (Normal) Range: 96-106 Potassium, Serum 4.1 mmol/L (Normal) Range: 3.5-5.2 Sodium, Serum 138 mmol/L (Normal) Range: 134-144 BUN/Creatinine Ratio 6 (Abnormal) Range: 9-23 eGFR If Africn Am 97 mL/min/1.73 (Normal) eGFR If NonAfricn Am 84 mL/min/1.73 (Normal) Creatinine, Serum 0.80 mg/dL (Normal) Range: 0.57-1.00 BUN 5 mg/dL (Abnormal) Range: 6-24 Glucose, Serum 98 mg/dL (Normal) Range: 65-99 41-Zod-561046:21 TSH (32444) Comments: PATIENT NOT FASTINGPERFORMED BY: [facility] [address]367 [facility] [id number] TSH 2.830 {uIU/mL} (Normal) Range: 0.450-4.500 94-Oie-426616:21 T3, FREE (TRIDOTHYRONINE) (14389) Comments: PATIENT NOT FASTINGPERFORMED BY: [facility] [id number] Triiodothyronine,Free,Serum 2.6 pg/mL (Normal) Range: 2.0-4.4 99-Tbq-896240:21 T4, FREE (THYROXINE) (87667) Comments: PATIENT NOT FASTINGPERFORMED BY: [facility] [address] [place] [id number] T4,Free(Direct) 1.12 ng/dL (Normal) Range: 0.82-1.77 :32 CBC W/Diff, Automated Comments: [facility] [address] [place], [address] Absolute Lymph 3.84 {X10_3/ul} (Normal) Range: 0.83-4.51 Absolute Neut 2.8 {X10_3/uL} (Normal) Range: 2.0-7.7 IM GRAN % 0.100 % (Normal) Range: 0.0-0.9 Comments: IG% - Immature Granulocytes (promyelocytes, myelocytes andmetamyelocytes) > 1% indicates that a LEFT SHIFT is Present. BASO% 0.5 % (Normal) Range: 0-1 EO% 0.9 % (Normal) Range: 0-5 MONO% 10.1 % (Abnormal) Range: 0-10 LY% 50.9 % (Abnormal) Range: 19-41 NEUT% 37.5 % (Abnormal) Range: 47-70 MPV 9.4 fL (Normal) Range: 6.2-12.0 PLT 325 K/mm3 (Normal) Range: 150-450 RDW SD 45.3 fL (Abnormal) Range: 35.1-43.9 RDW CV 13.2 % (Normal) Range: 11.6-14.6 MCHC 33.9 {g/gl} (Normal) Range: 32-36 MCH 32.8 pg (Abnormal) Range: 27.0-32.0 MCV 97.0 fL (Normal) Range: 81-99 HCT 38.4 % (Normal) Range: 37-47 HGB 13.0 g/dL (Normal) Range: 12.0-15.0 RBC 3.96 {M/mm3} (Abnormal) Range: 4.2-5.4 WBC 7.6 K/mm3 (Normal) Range: 4.4-11.0 :32 Comprehensive Metabolic Profil Comments: [facility] [address] [place], [place], [id number] ; non-emergent till next weeks apt GAP 6 (Normal) Range: 5-15 CO2 28.0 mmol/L (Normal) Range: 21.0-32.0 CL 101 mmol/L (Normal) Range: 98-107 K 4.1 mmol/L (Normal) Range: 3.5-5.1 NA 135 mmol/L (Abnormal) Range: 136-145 T BILI 0.50 mg/dL (Normal) Range: 0.20-1.00 ALT 26 U/L (Normal) Range: 12-78 ALK P 36 U/L (Abnormal) Range: 45-117 AST 14 U/L (Abnormal) Range: 15-37 CA 8.7 mg/dL (Normal) Range: 8.5-10.1 A/G 1.3 {RATIO} (Normal) Range: 0.9-2.4 GLOB 3.2 g/dL (Normal) Range: 2.3-3.5 ALB 4.1 g/dL (Normal) Range: 3.4-5.0 T PROT 7.3 g/dL (Normal) Range: 6.4-8.2 BUN/CRE 4.6 {RATIO} (Abnormal) Range: 10-20 EST GFR - AA 87 mL/min (Normal) Comments: GFR Calc EST GFR 72 mL/min (Normal) Comments: Non- GFR Calc CREAT,SERUM 0.87 mg/dL (Normal) Range: 0.55-1.02 Comments: The validity of the calculated GFR AND GFRAA in patients over70 years has not been determined. Clinical correlation isessential. BUN 4 mg/dL (Abnormal) Range: 7-18 GLU 89 mg/dL (Normal) Range: 70-110 :32 Hemoglobin A1c Comments: [facility] [address] [place], [place], [id number] HGB A1C 6.2 % (Normal) Range: 4.2-6.3 :32 Lipid Profile Comments: [facility] [address] [place], [address] VLDL 19 mg/dL (Normal) Range: 5-40 LDL 122 mg/dL (Normal) Range: 0-130 HDL 96 mg/dL (Normal) Comments: The drugs N-Acetylcysteine and Metamizole may falsely deressthis assay. Reference Range HDL <40 mg/dL Low HDL Cholesterol HDL >or= 60 mg/dL High HDL Cholesterol TRIG 96 mg/dL (Normal) Comments: The drugs N-Acetylcysteine and Metamizole may falsely deressthis assay.Serum Triglycerides Reference Interval Normal <150 mg/dL Borderline high 150 - 199 mg/dL High 200 - 499 mg/dL Very High > or = 500 mg/dL CHOL 237 mg/dL (Abnormal) Comments: <200 mg/dL Desirable 200-240 mg/dL Borderline >240 mg/dL High Risk 32-Jcz-41771:36 CBC W/Diff, Automated Comments: [facility] [address] [facility] [place], [address] Absolute Lymph 2.01 {X10_3/ul} (Normal) Range: 0.83-4.51 Absolute Neut 5.2 {X10_3/uL} (Normal) Range: 2.0-7.7 IM GRAN % 0.100 % (Normal) Range: 0.0-0.9 Comments: IG% - Immature Granulocytes (promyelocytes, myelocytes andmetamyelocytes) > 1% indicates that a LEFT SHIFT is Present. BASO% 0.4 % (Normal) Range: 0-1 EO% 0.4 % (Normal) Range: 0-5 MONO% 9.5 % (Normal) Range: 0-10 LY% 25.2 % (Normal) Range: 19-41 NEUT% 64.4 % (Normal) Range: 47-70 MPV 9.6 fL (Normal) Range: 6.2-12.0 PLT 299 K/mm3 (Normal) Range: 150-450 RDW SD 44.0 fL (Abnormal) Range: 35.1-43.9 RDW CV 12.6 % (Normal) Range: 11.6-14.6 MCHC 33.8 {g/gl} (Normal) Range: 32-36 MCH 33.1 pg (Abnormal) Range: 27.0-32.0 MCV 97.9 fL (Normal) Range: 81-99 HCT 37.3 % (Normal) Range: 37-47 HGB 12.6 g/dL (Normal) Range: 12.0-15.0 RBC 3.81 {M/mm3} (Abnormal) Range: 4.2-5.4 WBC 8.0 K/mm3 (Normal) Range: 4.4-11.0 :36 Comprehensive Metabolic Profil Comments: [facility] [address] [place], [address] GAP 10 (Normal) Range: 5-15 CO2 25.0 mmol/L (Normal) Range: 21.0-32.0 CL 99 mmol/L (Normal) Range: 98-107 K 3.8 mmol/L (Normal) Range: 3.5-5.1 NA 134 mmol/L (Abnormal) Range: 136-145 T BILI 0.70 mg/dL (Normal) Range: 0.20-1.00 ALT 24 U/L (Normal) Range: 12-78 ALK P 38 U/L (Abnormal) Range: 45-117 AST 12 U/L (Abnormal) Range: 15-37 CA 8.6 mg/dL (Normal) Range: 8.5-10.1 A/G 1.3 {RATIO} (Normal) Range: 0.9-2.4 GLOB 3.2 g/dL (Normal) Range: 2.3-3.5 ALB 4.1 g/dL (Normal) Range: 3.4-5.0 T PROT 7.3 g/dL (Normal) Range: 6.4-8.2 BUN/CRE 9.3 {RATIO} (Abnormal) Range: 10-20 EST GFR - AA 104 mL/min (Normal) Comments: GFR Calc EST GFR 86 mL/min (Normal) Comments: Non- GFR Calc CREAT,SERUM 0.75 mg/dL (Normal) Range: 0.55-1.02 Comments: The validity of the calculated GFR AND GFRAA in patients over70 years has not been determined. Clinical correlation isessential. BUN 7 mg/dL (Normal) Range: 7-18 GLU 94 mg/dL (Normal) Range: 70-110 :36 CRP Comments: [address] [place], [address] C-REACTIVE PROT < 2.90 mg/L (Normal) Range: 0.0-3.0 Comments: C-Reactive Protein (CRP) provides useful information for thediagnosis, therapy and monitoring of inflammatory processesand associated diseases. For the evaluation of Relative Riskfor Cardiovascular Dise ase, a High Sensitivity CRP (HSCRP)should be ordered. :36 Culture, Urine Comments: [address] [place], [id number] CUUR See Note (Normal) Comments: Urine CultureCOLONY COUNT 400 CFU/ML Below infection level. ORGANISM 1: GNR Poss Pseudomonas spColony Count <1000 :36 Erythrocyte Sed Rate Comments: [address] [place], [address] SED RATE 5 mm/h (Normal) Range: 0-30 :36 Free T3 Comments: [address] [place], [address] FREE T3 2.4 pg/mL (Normal) Range: 2.18-3.98 :36 Rheumatoid Factor Comments: [address] [place], [id number] RHEUMATOID FAC < 10.0 {IU/mL} (Normal) :36 T4 Free Direct Comments: [address] [place], [id number] T4 FREE DIRECT 1.09 ng/dL (Normal) Range: 0.76-1.46 :36 Thyroid Stim Hormone (TSH) Comments: [address] [place], [address] TSH 0.08 {uIU/mL} (Abnormal) Range: 0.358-3.74 :36 Uric Acid Comments: [address] [place], [id number] URIC 3.6 mg/dL (Normal) Range: 2.6-6.0 Comments: The drugs N-Acetylcysteine and Metamizole may falsely deressthis assay. [id number]:30 URINE ARELY CULTURE-SPRING COL Comments: PERFORMED BY: [address] [id number] Information: SRC:UR COUNT (65440) Result 1 MUG (Normal) Comments: Mixed urogenital flora1,000 Colonies/mL Urine Culture,Comprehensive Final report (Normal) [id number]:20 Urinalysis, Office (46577) UA - LEUKOCYTE ESTERASE Negative (Normal) UA - NITRITE Negative (Normal) URINE UROBILINGN SPRING TIMED Normal mg/dL (Normal) UA - PROTEIN Negative mg/dL (Normal) UA - PH 7 (Normal) UA - BLOOD Negative (Normal) UA - SPECIFIC GRAVITY 1.015 (Normal) UA - KETONES Negative mg/dL (Normal) UA - BILIRUBIN Negative (Normal) UA - GLUCOSE Negative (Normal) [id number]-Dce-[id number]:52 ARELY CULTURE-OTHER (21780) Comments: PATIENT NOT FASTINGPERFORMED BY: [address] [id number] Information: THROAT SRC:TH Result 1 RRF (Normal) Comments: Routine respiratory kaylene Upper Respiratory Culture Final report (Normal) [id number] Rapid Strep Test, Office (32618) Rapid Strep Test, Negative (Normal) Office [id number]-Guw-068740:2 Magnesium, Serum 2.0 mg/dL (Normal) Comments: PATIENT NOT FASTINGPERFORMED BY: [address] [id number] Information: SRC:UC 1 Range: 1.6-2.3 [id number] Microscopic Examination Comments: PATIENT NOT FASTINGPERFORMED BY: [address] [id number] BY: [address] [id number] Bacteria None seen (Normal) Epithelial Cells (non None seen {/hpf} Range: 0 - 10 renal) (Normal) RBC 0-2 {/hpf} Range: 0 - 2 (Normal) WBC 0-5 {/hpf} Range: 0 - 5 (Normal) Sodium, Urine <20 mmol/L Comments: PATIENT NOT FASTINGPERFORMED BY: CB [facility] Ukdoed4063 [facility] [id number] BY: [address] [id number] 4:21 (Normal) Written Authorization WAR (Normal) Comments: PATIENT NOT FASTINGPERFORMED BY: CB [facility] Xziwwh4962 [facility] [id number] 4:21 Comments: Written Authorization Received.Authorization received from YURIY VERNON LPN [id number] by Tg Stewart 91-Mru-390724:21 URINE ARELY CULTURE-IDENTIFICATN Comments: PATIENT NOT FASTINGPERFORMED BY: LabPiperScout Potcyc4090 [facility] [id number] BY: elmeme.me[address] [id number] (86409) Result 1 NG36 (Normal) Comments: No growth in 36 - 48 hours. Urine Culture,Comprehensive Final report (Normal) 22-Zpw-981813:21 URINALYSIS, W/ MICRO Comments: PATIENT NOT FASTINGPERFORMED BY: [facility] Wfulkm5751 [facility] [id number] BY: [address] [id number] Information: SRC: ([id number]) Microscopic Examination See below: (Normal) Comments: Microscopic was indicated and was performed. Microscopic Examination MICRON (Normal) Comments: Microscopic follows if indicated. Nitrite, Urine Negative (Normal) Urobilinogen,Semi-Qn 0.2 mg/dL (Normal) Range: 0.2-1.0 Bilirubin Negative (Normal) Occult Blood Negative (Normal) Ketones Negative (Normal) Glucose Negative (Normal) Protein Negative (Normal) WBC Esterase Negative (Normal) Appearance Clear (Normal) Urine-Color Yellow (Normal) pH 7.0 (Normal) Range: 5.0-7.5 Specific [place] 1.007 (Normal) Range: 1.005-1.030 60-Ake-210258:21 OSMOLALITY URINE (18346) Comments: PATIENT NOT FASTINGPERFORMED BY: LabCoChristopher [place] [id number] [facility] [id number] BY: [address] [id number] Osmolality, Urine 98 {mOsmol/kg} (Normal) Comments: 24 hr : 300 - 900 Random: 50 - 1400 After 12hr fluid restriction: >850 77-Ztv-401388:21 OSMOLALITY BLOOD (23953) Comments: PATIENT NOT FASTINGPERFORMED BY: [facility]Co[facility] [place] 0591770 [facility] [id number] BY: LabCo[address] [id number] Osmolality 265 {mOsmol/kg} (Abnormal) Range: 275-295 62-Rdt-684286:21 SODIUM SERUM (05523) Comments: PATIENT NOT FASTINGPERFORMED BY: LabPiperScoutChristopher [place] 0591770 [facility] [id number] BY: Lab[address] [id number] Sodium, Serum 132 mmol/L (Abnormal) Range: 134-144 52-Yee-701871:15 Comprehensive Metabolic Profil Comments: [facility] [address] [place], [address] GAP 9 (Normal) Range: 5-15 CO2 25.0 mmol/L (Normal) Range: 21.0-32.0 CL 96 mmol/L (Abnormal) Range: 98-107 K 3.7 mmol/L (Normal) Range: 3.5-5.1 NA 130 mmol/L (Abnormal) Range: 136-145 T BILI 0.60 mg/dL (Normal) Range: 0.20-1.00 ALT 18 U/L (Normal) Range: 12-78 ALK P 34 U/L (Abnormal) Range: 45-117 AST 15 U/L (Normal) Range: 15-37 CA 8.4 mg/dL (Abnormal) Range: 8.5-10.1 A/G 1.4 {RATIO} (Normal) Range: 0.9-2.4 GLOB 3.1 g/dL (Normal) Range: 2.3-3.5 ALB 4.2 g/dL (Normal) Range: 3.4-5.0 T PROT 7.3 g/dL (Normal) Range: 6.4-8.2 BUN/CRE 6.3 {RATIO} (Abnormal) Range: 10-20 EST GFR - AA 98 mL/min (Normal) Comments: GFR Calc EST GFR 81 mL/min (Normal) Comments: Non- GFR Calc CREAT,SERUM 0.79 mg/dL (Normal) Range: 0.55-1.02 Comments: The validity of the calculated GFR AND GFRAA in patients over70 years has not been determined. Clinical correlation isessential. BUN 5 mg/dL (Abnormal) Range: 7-18 GLU 86 mg/dL (Normal) Range: 70-110 49-Vix-196351:15 Free T3 Comments: [facility] [address] [place], [address] FREE T3 2.3 pg/mL (Normal) Range: 2.18-3.98 43-Han-517466:15 Phosphorus Comments: [facility] [address] [place], [address] PHOS 2.9 mg/dL (Normal) Range: 2.5-4.9 14-Zpr-069458:15 PTH,INTACT Comments: [facility] [address] [place], [address] PTH,Intact 35 pg/mL (Normal) Range: 14-72 33-Ain-852083:15 T4 Free Direct Comments: [facility] [address] [place], [address] T4 FREE DIRECT 1.06 ng/dL (Normal) Range: 0.76-1.46 00-Esr-192313:15 Thyroid Stim Hormone (TSH) Comments: [facility] [address] [place], [address] TSH 5.47 {uIU/mL} (Abnormal) Range: 0.358-3.74 37-Lhv-031733:15 Vitamin D,25 Hydroxy Comments: [facility] [address] [place], [address] Vitamin D 25-OH 38.0 ng/mL (Normal) Comments: Vitamin D 25(OH) Status Range Deficiency <20 ng/mL (50nmol/L) Insuffciency 20 - 30 ng/mL (50 - 75 nmol/L) Sufficiency 30 - 100 ng/mL (75 - 250 nmol/L) Toxicity >100 ng/mL (>250 nmol/L) 4-Qsb-287924:31 Comprehensive Metabolic Profil Comments: [facility] [address] [place], [id number] GAP 11 (Normal) Range: 5-15 CO2 24.0 mmol/L (Normal) Range: 21.0-32.0 CL 97 mmol/L (Abnormal) Range: 98-107 K 4.0 mmol/L (Normal) Range: 3.5-5.1 NA 132 mmol/L (Abnormal) Range: 136-145 T BILI 0.50 mg/dL (Normal) Range: 0.20-1.00 ALT 13 U/L (Normal) Range: 12-78 ALK P 34 U/L (Abnormal) Range: 45-117 AST 12 U/L (Abnormal) Range: 15-37 CA 8.0 mg/dL (Abnormal) Range: 8.5-10.1 A/G 1.2 {RATIO} (Normal) Range: 0.9-2.4 GLOB 3.2 g/dL (Normal) Range: 2.3-3.5 ALB 4.0 g/dL (Normal) Range: 3.4-5.0 T PROT 7.2 g/dL (Normal) Range: 6.4-8.2 BUN/CRE 6.9 {RATIO} (Abnormal) Range: 10-20 EST GFR - AA 107 mL/min (Normal) Comments: GFR Calc EST GFR 89 mL/min (Normal) Comments: Non- GFR Calc CREAT,SERUM 0.73 mg/dL (Normal) Range: 0.55-1.02 Comments: The validity of the calculated GFR AND GFRAA in patients over70 years has not been determined. Clinical correlation isessential. BUN 5 mg/dL (Abnormal) Range: 7-18 GLU 96 mg/dL (Normal) Range: 70-110 5-Fff-336841:31 Free T3 Comments: [facility] [address] [place], [address] FREE T3 2.3 pg/mL (Normal) Range: 2.18-3.98 0-Sjy-351210:31 Hemoglobin A1c Comments: [place] [address] [place], [address] HGB A1C 5.7 % (Normal) Range: 4.2-6.3 5-Kmm-101374:31 Lipid Profile Comments: [address] [place], [address] VLDL 19 mg/dL (Normal) Range: 5-40 LDL 139 mg/dL (Abnormal) Range: 0-130 HDL 95 mg/dL (Normal) Comments: The drugs N-Acetylcysteine and Metamizole may falsely deressthis assay. Reference Range HDL <40 mg/dL Low HDL Cholesterol HDL >or= 60 mg/dL High HDL Cholesterol TRIG 95 mg/dL (Normal) Comments: The drugs N-Acetylcysteine and Metamizole may falsely deressthis assay.Serum Triglycerides Reference Interval Normal <150 mg/dL Borderline high 150 - 199 mg/dL High 200 - 499 mg/dL Very High > or = 500 mg/dL CHOL 253 mg/dL (Abnormal) Comments: <200 mg/dL Desirable 200-240 mg/dL Borderline >240 mg/dL High Risk 2-Kcv-935149:31 Microalb:Creat Ratio,Random UR Comments: [facility] [address] [place], [address] MALB:CREAT 5.4 {mg/g_CRE} (Normal) MICROALBUMIN,UR 6.7 mg/L (Normal) UR CREAT 124.00 mg/dL (Normal) 5-Dak-428554:31 T4 Free Direct Comments: [place] [address] [place], [address] T4 FREE DIRECT 0.70 ng/dL (Abnormal) Range: 0.76-1.46 :31 Thyroid Stim Hormone (TSH) Comments: [facility] [address] [place], [address] TSH 4.87 {uIU/mL} (Abnormal) Range: 0.358-3.74 :49 [facility] Staff Auditor AB, Blocking Comments: [facility] (refer to report for specific site)refer to report for address and phone number [facility] REC 05432 19 % (Normal) Range: 0-25 Comments: Negative: 0 - 25 Borderline: 26 - 30 Positive: >30Results for this test are for research purposesonly by the assay's manuumer rodriguez. The performancecharacteristics of this product have not beenestablished. Results should not be used as adiagnostic procedure without confirmation of thediagnosis by another medically establishe ddiagnostic product or procedure.Performed at: [address] [id number] Director: Eusebio Live MD, Phone: [phone] :[phone] Lyme Antibodies,W Blot Comments: [facility] (refer to report for specific site)refer to report for address and phone number LYME IgM INTERP Negative (Normal) Comments: Note: An equivocal or positive EIA result followed by anegative Western Blot result is considered NEGATIVE. Anequivocal or positive EIA result followed by a positiveWestern Blot is considered POSITIVE b y the CDC.Positive: 2 of the following bands: 23,39 or 41Negative: No bands or banding patterns which do not meetpositive criteria.Criteria for positivity are those recommended byCDC/ASTPHLD. p23=Osp C, j73=lvlhfcvqnIfob:Sera from individuals with the following may cross reactin the Lyme Western Blot assays: other spirochetal diseases(periodontal disease, leptospirosis, relapsing fever, yaws,and pinta ); connective autoimmune (Rheumatoid Arthritis andSystemic Lupus Erythematosus and also individuals withAntinuclear Antibody); other infections (Rojas MountainSpotted Fever; Ella-Bobo Virus, and Cytomegalovirus). P23 Ab Absent (Normal) P39 Ab Absent (Normal) P41 Ab Absent (Normal) LYME IgG INTERP Negative (Normal) Comments: Positive: 5 of the following Borrelia-specific bands: 18,23,28,30,39,41,45,58, 66, and 93. N egative: No bands or banding patterns which do not meet positive criteria. P18 Ab Present (Abnormal) P23 Ab Absent (Normal) P28 Ab Absent (Normal) P30 Ab Present (Abnormal) P39 Ab Absent (Normal) P41 Ab Absent (Normal) P45 Ab Absent (Normal) P58 Ab Absent (Normal) P66 Ab Absent (Normal) P93 Ab Absent (Normal) :39 Acid Fast Bact Cult/Sm Comments: [facility] [address] [place], [place], [address] AFBCS See Note Comments: AFB Smear/Fluor TESTING PERFORMED AT [facility]. ORIGINAL REPORT ON FILE IN LAB CONTAINS ADDITIONAL TEST SITE INFORMATION. (Normal) Smear, Acid Fast NO ACID-FAST BACILLI OBSERVED ON SMEAR. AFB Cult [facility]. ORIGIN AL REPORT ON FILE IN LAB CONTAINS ADDITIONAL TEST SITE INFORMATION. Culture, Acid Fast NO ACID-FAST BACILLI ISOLATED AFTER 6 WEEKS. :39 Body Fluid Cell Count+Diff Comments: Specimen Source: [facility] [address] [place], [address] PATH COMM/BF May follow (Normal) BF PMN WBC# 0.001 {10_3/uL} (Normal) BF MN WBC# 0.000 {10_3/uL} (Normal) BF MN WBC% 0.0 % (Normal) BF PMN WBC% 100.0 % (Normal) WBC/BF 0.001 {10_3/uL} (Normal) BFTC# 0.001 {10_3/ul} (Abnormal) Range: 0.000-0.000 Comments: This is the Total Number of Nucleated Cell Types in the BodyFluid. :39 Cryptococcus Antigen CSF Comments: [facility] (refer to report for specific site)refer to report for address and phone number CRYP AG Negative (Normal) :39 Cytology, Body Fluid / CSF Comments: Specimen Source: [facility] [address] [place], [place], [address] CYTOLOGY,BF/CSF SEE PATHOLOGY REPORT Comments: Specimen submitted to Anatomical Pathology Department [facility]. (Normal) :39 CYTOSPIN ON FLUID See Note (Normal) Comments: [facility] [address] [place], [place], [address] Comments: Patient: TITA LAW : 1960 (55/F) Acct Num: [id number] Phys: Pepper Barr NP Unit Num: [id number] Loc: [facility] Specimen: [id number] Received: 03/15/16 - 1239 Spec Type: CYSPIN FL TISSUES TISSUES: CYTOLOGY GROSS Received is 3 ml of clear, colorless fluid labeled with the patient's name and and designated per the requisition as CSF. Submitted f or cytology preparation. 03/15/16 TC:4 CPT: 31360 CYTOLOGY STUDY Slides are reviewed. DIAGNOSIS CYTOLOGY Cerebrospinal fluid (cytospins): The specimen is acellular. SJ:tiffanie 7 HEADER OPERATION: Lumbar puncture PRE-OP DIAGNOSIS: Rule out MS TISSUE SUBMITTED: Cerebrospinal fluid Signed Christian Holt 03/16/16 <signature on file> :39 Glucose Spinal Fluid Comments: Comments: PROTEIN ELCTRO-CSF LC#[id number] Source? [facility] [address] [place], [address] GLU SPINAL FLD 57 mg/dL (Normal) Range: 40-75 :39 Miscellaneous Lab Procedure Comments: Comments: PROTEIN ELCTRO- CSF LC#[id number]([id number]) Ordered: PROTEIN ELCTRO-CSF LC#[id number] [address] [place], [id number] [facility] Comments: TEST RESULT UNITS REFERENCE INTERVALProtein Electrophoresis, CSFProtein, Total, CSF 36.7 mg/dL 0.0 - 44.0Pre- Albumin (CSF) 2.6 % 2.2 - 7.1Albumin LAB (Normal) (CSF) 68.5 % 56.8 - 76.4Ekgbp-0-Wlshanhg CSF 3.9 % 1.1 - 6.2Jyany-5-Rvxsuzpn CSF 4.6 % 3.0 - 12.6Beta Globulin (CSF) 15.0 % 7 TEST .3 - 17.9Gamma Globulin (CSF) 5.5 % 3.0 - 13.0Protein electrophoresis scan will follow via computer, mail,or supervisor scouring pads delivery.M-Logan Not Observed % Not Observed__ [facility]. ORIGINAL REPORT ON FILE IN LAB CONTAINS ADDITIONAL TEST SITE INFORMATION. :39 Myelin Basic Protein, MBP Comments: [facility] (refer to report for specific site)refer to report for address and phone number MBP [id number] 1.8 ng/mL (Abnormal) Range: 0.0-1.2 Comments: Results for this test are for research purposes only by theassay's access nurse. The performance characteristics ofthis product have not been established. Results should notbe used as a diagnostic pro cedure without confirmation ofthe diagnosis by another medically established diagnosticproduct or procedure. :39 Protein Spinal Fluid Comments: Comments: PROTEIN ELCTRO-CSF #[id number] Source? [facility] [address] [place], [place], [address] PROTEIN CSF 38.0 mg/dL (Normal) Range: 15.0-45.0 :04 IgG Index AND Synthesis Rate Comments: [facility] (refer to report for specific site)refer to report for address and phone number CSF:SER ALB IND 5 (Normal) Range: 0-8 Comments: Relationship to blood-brain barrier: Consistent with an intact barrier <9 Slight impairment 9 - 14 Moderate impairment 14 - 30 Severe impairment 30 - 100 Complete breakdown >100 CSF IgG SYN RAT -1.2 {mg/day} (Normal) CSF IgG INDEX 0.5 (Normal) Range: 0.0-0.7 CSF IGG/ALB 0.09 (Normal) Range: 0.00-0.25 SERUM ALBUMIN 4.6 g/dL (Normal) Range: 3.5-5.5 IgG SERUM 737 mg/dL (Normal) Range: 700-1600 CSF ALBUMIN 22 mg/dL (Normal) Range: 11-48 CSF IgG 1.9 mg/dL (Normal) Range: 0.0-8.6 :04 Oligoclonal Bands Panel Comments: [facility] (refer to report for specific site)refer to report for address and phone number OLIG BAND COM Comment (Normal) Comments: Zero (0) oligoclonal bands were observed in the CSF.Interpretation: Criteria for Positivity: Four (4) or more oligoclonalbands observed only in the CSF have been shown to be mostconsistent with MS usi ng our method. [Mikayla , Lesly Martinez, and Mary Grace JA: Cerebrospinal FluidOligoclonal Bands in the Diagnosis of Multiple Sclerosis.Am J Clin Pathol 120(5):672-675, 2003]. Oligoclonal bands that are present only in the CSF havebeen associated with a variety of inflammatory braindiseases such as multiple sclerosis (MS), subacuteencephalitis, neurosyphilis, etc. Increased IgG in the CSFis not specific for MS, but is an indication of chronicneural inflammation. Clinical correlation indicated. Approximately 2-3% of clinically confirmed MS patientsshow little or no evidence of olig oclonal bands in theCSF; however oligoclonal bands may develop as the diseaseprogresses. Oligoclonal Banding testing performed using IsoelectricFocusing (IEF) and immunoblotting methodology.Performed at: [facility] [address]meme.me[address] [id number] Director: Sean Daniel PhD, Phone: [phone] OLIG BAND REF LAB (Normal) :04 Protein Electroph, S Comments: [facility] (refer to report for specific site)refer to report for address and phone number NOTE: Comment (Normal) Comments: The SPE pattern appears essentially unremarkable. Evidenceof monoclonal protein is not apparent. INTERPRETATION Comment (Normal) Comments: Protein electrophoresis scan will follow via computer,mail, or supervisor scouring pads delivery. A/G RATIO 1.4 (Normal) Range: 0.7-1.7 GLOBULIN, TOTAL 2.8 g/dL (Normal) Range: 2.2-3.9 M-SPIKE g/dL (Normal) Comments: Not Observed GAMMA GLOBULIN 0.9 g/dL (Normal) Range: 0.4-1.8 BETA GLOBULIN 0.9 g/dL (Normal) Range: 0.7-1.3 ALPHA-2 GLOBUL 0.7 g/dL (Normal) Range: 0.4-1.0 ALPHA-1 GLOBUL 0.2 g/dL (Normal) Range: 0.0-0.4 ALBUMIN 3.9 g/dL (Normal) Range: 2.9-4.4 PROTEIN,TOTAL 6.7 g/dL (Normal) Range: 6.0-8.5 3-Ghu-645540:15 CBC W/Diff, Automated Comments: DR VILLAFANA ORDERED CBCD/CMPDR KEVIN ORDERED BMP/FT3/FT4/TSHDR TRES ORDERED CBCD/CMPDR FAST ORDERED BMP/FT3/FT4/[facility] [address] [place], [address] Absolute Lymph 1.41 {X10_3/ul} (Normal) Range: 0.83-4.51 Absolute Neut 6.0 {X10_3/uL} (Normal) Range: 2.0-7.7 IM GRAN % 0.100 % (Normal) Range: 0.0-0.9 Comments: IG% - Immature Granulocytes (promyelocytes, myelocytes andmetamyelocytes) > 1% indicates that a LEFT SHIFT is Present. BASO% 0.2 % (Normal) Range: 0-1 EO% 0.4 % (Normal) Range: 0-5 MONO% 9.0 % (Normal) Range: 0-10 LY% 17.3 % (Abnormal) Range: 19-41 NEUT% 73.0 % (Abnormal) Range: 47-70 MPV 9.0 fL (Normal) Range: 6.2-12.0 PLT 274 K/mm3 (Normal) Range: 150-450 RDW SD 49.7 fL (Abnormal) Range: 35.1-43.9 RDW CV 13.8 % (Normal) Range: 11.6-14.6 MCHC 33.2 {g/gl} (Normal) Range: 32-36 MCH 32.9 pg (Abnormal) Range: 27.0-32.0 MCV 99.2 fL (Abnormal) Range: 81-99 HCT 38.0 % (Normal) Range: 37-47 HGB 12.6 g/dL (Normal) Range: 12.0-15.0 RBC 3.83 {M/mm3} (Abnormal) Range: 4.2-5.4 WBC 8.2 K/mm3 (Normal) Range: 4.4-11.0 9-Kfs-953329:15 Comprehensive Metabolic Profil Comments: DR VILLAFANA ORDERED CBCD/CMPDR FAST ORDERED BMP/FT3/FT4/[facility] [address] [place], [place], [id number] GAP 9 (Normal) Range: 5-15 CO2 26.0 mmol/L (Normal) Range: 21.0-32.0 CL 96 mmol/L (Abnormal) Range: 98-107 K 4.1 mmol/L (Normal) Range: 3.5-5.1 NA 131 mmol/L (Abnormal) Range: 136-145 T BILI 0.70 mg/dL (Normal) Range: 0.20-1.00 ALT 21 U/L (Normal) Range: 12-78 ALK P 40 U/L (Abnormal) Range: 45-117 AST 15 U/L (Normal) Range: 15-37 CA 8.5 mg/dL (Normal) Range: 8.5-10.1 A/G 1.5 {RATIO} (Normal) Range: 0.9-2.4 GLOB 2.8 g/dL (Normal) Range: 2.3-3.5 ALB 4.1 g/dL (Normal) Range: 3.4-5.0 T PROT 6.9 g/dL (Normal) Range: 6.4-8.2 BUN/CRE 8.1 {RATIO} (Abnormal) Range: 10-20 EST GFR - AA 129 mL/min (Normal) Comments: GFR Calc EST GFR 107 mL/min (Normal) Comments: Non- GFR Calc CREAT,SERUM 0.62 mg/dL (Normal) Range: 0.55-1.02 Comments: The validity of the calculated GFR AND GFRAA in patients over70 years has not been determined. Clinical correlation isessential. BUN 5 mg/dL (Abnormal) Range: 7-18 GLU 92 mg/dL (Normal) Range: 70-110 8-Gfa-073415:15 Free T3 Comments: DR VILLAFANA ORDERED CBCD/CMPDR FAST ORDERED BMP/FT3/FT4/[facility] [address] [facility]. [place], [place], [id number] FREE T3 2.2 pg/mL (Normal) Range: 2.18-3.98 :15 T4 Free Direct Comments: DR VILLAFANA ORDERED CBCD/CMPDR FAST ORDERED BMP/FT3/FT4/[facility] [address] [facility] [place], [address] T4 FREE DIRECT 0.96 ng/dL (Normal) Range: 0.76-1.46 5-Mfk-848468:15 Thyroid Stim Hormone (TSH) Comments: DR VILLAFANA ORDERED CBCD/CMPDR FAST ORDERED BMP/FT3/FT4/[facility] [address] [place], [place], [address] TSH 0.13 {uIU/mL} (Abnormal) Range: 0.358-3.74 41-Cie-170974:21 Metabolic Panel, Basic Comments: PATIENT NOT FASTINGPERFORMED BY: [employer] [facility] [id number] (69021) Calcium, Serum 9.5 mg/dL (Normal) Range: 8.7-10.2 Carbon Dioxide, Total 23 mmol/L (Normal) Range: 18-29 Chloride, Serum 91 mmol/L (Abnormal) Range: 97-106 Potassium, Serum 4.2 mmol/L (Normal) Range: 3.5-5.2 Sodium, Serum 131 mmol/L (Abnormal) Range: 136-144 BUN/Creatinine Ratio 13 (Normal) Range: 9-23 eGFR If Africn Am 130 mL/min/1.73 (Normal) eGFR If NonAfricn Am 113 mL/min/1.73 (Normal) Creatinine, Serum 0.47 mg/dL (Abnormal) Range: 0.57-1.00 BUN 6 mg/dL (Normal) Range: 6-24 Glucose, Serum 85 mg/dL (Normal) Range: 65-99 35-Jgp-358037:21 TSH (77771) Comments: PATIENT NOT FASTINGPERFORMED BY: [employer] [facility] [id number] TSH 0.031 {uIU/mL} (Abnormal) Range: 0.450-4.500 47-Ppi-121917:21 T3, FREE (TRIDOTHYRONINE) (33673) Comments: PATIENT NOT FASTINGPERFORMED BY: [employer] [facility] [id number] Triiodothyronine,Free,Serum 3.3 pg/mL (Normal) Range: 2.0-4.4 97-Yqh-606342:21 T4, FREE (THYROXINE) (96671) Comments: PATIENT NOT FASTINGPERFORMED BY: [employer] Ewmuce2525 [facility] [id number] T4,Free(Direct) 1.52 ng/dL (Normal) Range: 0.82-1.77 :56 CBC W/Diff, Automated Comments: [facility] [address] [place], [place], [address] Absolute Lymph 1.43 {X10_3/ul} (Normal) Range: 0.83-4.51 Absolute Neut 4.5 {X10_3/uL} (Normal) Range: 2.0-7.7 IM GRAN % 0.200 % (Normal) Range: 0.0-0.9 Comments: IG% - Immature Granulocytes (promyelocytes, myelocytes andmetamyelocytes) > 1% indicates that a LEFT SHIFT is Present. BASO% 0.3 % (Normal) Range: 0-1 EO% 0.3 % (Normal) Range: 0-5 MONO% 5.7 % (Normal) Range: 0-10 LY% 22.6 % (Normal) Range: 19-41 NEUT% 70.9 % (Abnormal) Range: 47-70 MPV 9.0 fL (Normal) Range: 6.2-12.0 PLT 420 K/mm3 (Normal) Range: 150-450 RDW SD 49.0 fL (Abnormal) Range: 35.1-43.9 RDW CV 13.8 % (Normal) Range: 11.6-14.6 MCHC 33.6 {g/gl} (Normal) Range: 32-36 MCH 32.7 pg (Abnormal) Range: 27.0-32.0 MCV 97.4 fL (Normal) Range: 81-99 HCT 37.2 % (Normal) Range: 37-47 HGB 12.5 g/dL (Normal) Range: 12.0-15.0 RBC 3.82 {M/mm3} (Abnormal) Range: 4.2-5.4 WBC 6.3 K/mm3 (Normal) Range: 4.4-11.0 :56 Comprehensive Metabolic Profil Comments: [facility] [address] [place], [place], [id number] GAP 9 (Normal) Range: 5-15 CO2 26.0 mmol/L (Normal) Range: 21.0-32.0 CL 97 mmol/L (Abnormal) Range: 98-107 K 4.1 mmol/L (Normal) Range: 3.5-5.1 NA 132 mmol/L (Abnormal) Range: 136-145 T BILI 0.90 mg/dL (Normal) Range: 0.20-1.00 ALT 38 U/L (Normal) Range: 12-78 ALK P 68 U/L (Normal) Range: 45-117 AST 21 U/L (Normal) Range: 15-37 CA 8.8 mg/dL (Normal) Range: 8.5-10.1 A/G 1.3 {RATIO} (Normal) Range: 0.9-2.4 GLOB 3.1 g/dL (Normal) Range: 2.3-3.5 ALB 4.1 g/dL (Normal) Range: 3.4-5.0 T PROT 7.2 g/dL (Normal) Range: 6.4-8.2 BUN/CRE 7.7 {RATIO} (Abnormal) Range: 10-20 EST GFR - AA 123 mL/min (Normal) Comments: GFR Calc EST GFR 101 mL/min (Normal) Comments: Non- GFR Calc CREAT,SERUM 0.65 mg/dL (Normal) Range: 0.55-1.02 Comments: The validity of the calculated GFR AND GFRAA in patients over70 years has not been determined. Clinical correlation isessential. BUN 5 mg/dL (Abnormal) Range: 7-18 GLU 99 mg/dL (Normal) Range: 70-110 :56 Hemoglobin A1c Comments: [facility] [address] [place], [place], [id number] HGB A1C 5.4 % (Normal) Range: 4.2-6.3 :56 Microalb:Creat Ratio,Random UR Comments: [facility] [address] [place], [place], [id number] MALB:CREAT Test not performed {mg/g_CRE} (Normal) MICROALBUMIN,UR < 5.0 mg/L (Normal) UR CREAT 18.20 mg/dL (Normal) [id number] NMR Lipoprofile Comments: [facility] (refer to report for specific site)refer to report for address and phone number LP-IR SCORE 27 (Normal) Comments: INSULIN RESISTANCE MARKER <--Insulin Sensitive Insulin Resistant--> Percentile in Reference PopulationInsulin Resistance ScoreLP-IR Score Low 25th 50th 75th High <27 27 45 63 >63LP-IR Score is inaccurate if patient is non-fasting.The LP-IR score is a laboratory developed index that hasbeen associated with insulin resistance and diabetes riskand should be used as one component of a physician'sclinical assessment. The LP-IR score listed above has notbeen cleared by the [place] Food and Drug Administration.Performed at: [address] [id number] Director: Eusebio Live MD, Phone: [phone] INS RES/DIAB RK . (Normal) LDL SIZE 21.5 nm (Normal) Comments: INTERPRETATIVE INFORMATION PARTICLE CONCENTRATION AND SIZE <--Lower CVD Risk Highe r CVD Risk--> LDL AND HDL PARTICLES Percentile in Reference Population HDL-P (total) High 75th 50th 25th Low >34.9 34.9 30.5 26.7 <26.7 Small LDL-P Low 25th 50th 75th High <117 117 527 839 >839 LDL Size <-Large (Pattern A)-> <-Small (Pattern B)-> 23.0 20.6 20.5 19.0 Small LDL-P and LDL Size are associated with CVD risk, butnot after LDL-P is taken into account .These assays were developed and their performancecharacteristics determined by [employer]. These assayshave not been cleared by the US Food and DrugAdministration. The clinical utility of these laboratoryvalues have not been fully established. SMALL LDL-P <90 nmol/L (Normal) HDL-P TOTAL 38.1 umol/L (Normal) LD HD PARTICLES . (Normal) LDL-P 1096 nmol/L (Abnormal) Comments: Low < 1000 Moderate 1000 - 1299 Borderline-High 1300 - 1599 High 1600 - 2000 Very High > 2000 TRIGLYCERIDES 71 mg/dL (Normal) Range: 0-149 HDL-C 74 mg/dL (Normal) LDL-C 121 mg/dL (Abnormal) Range: 0-99 Comments: Optimal < 100 Above optimal 100 - 129 Borderline 130 - 159 High 160 - 189 Very high > 189LDL-C is inaccurate if patient is non-fasting. CHOLESTEROL TOT 209 mg/dL (Abnormal) Range: 100-199 LIPIDS . (Normal) 34-Lne-887364:26 Microscopic Examination Comments: PATIENT NOT FASTINGPERFORMED BY: [employer] [id number] Bacteria Few (Normal) Epithelial Cells (non renal) 0-10 {/hpf} (Normal) Range: 0 - 10 RBC 0-2 {/hpf} (Normal) Range: 0 - 2 WBC 0-5 {/hpf} (Normal) Range: 0 - 5 77-Pbs-920614:26 METABOLIC PANEL, COMPREHENSIVE Comments: PATIENT NOT FASTINGPERFORMED BY: [employer] [id number] ([id number]) ALT (SGPT) 23 [iU]/L (Normal) Range: 0-32 AST (SGOT) 16 [iU]/L (Normal) Range: 0-40 Alkaline Phosphatase, S 72 [iU]/L (Normal) Range: 39-117 Bilirubin, Total 0.4 mg/dL (Normal) Range: 0.0-1.2 A/G Ratio 1.7 (Normal) Range: 1.1-2.5 Globulin, Total 2.4 g/dL (Normal) Range: 1.5-4.5 Albumin, Serum 4.1 g/dL (Normal) Range: 3.5-5.5 Protein, Total, Serum 6.5 g/dL (Normal) Range: 6.0-8.5 Calcium, Serum 9.2 mg/dL (Normal) Range: 8.7-10.2 Carbon Dioxide, Total 26 mmol/L (Normal) Range: 18-29 Chloride, Serum 95 mmol/L (Abnormal) Range: 97-106 Potassium, Serum 4.3 mmol/L (Normal) Range: 3.5-5.2 Sodium, Serum 137 mmol/L (Normal) Range: 136-144 BUN/Creatinine Ratio 7 (Abnormal) Range: 9-23 eGFR If Africn Am 115 mL/min/1.73 (Normal) eGFR If NonAfricn Am 100 mL/min/1.73 (Normal) Creatinine, Serum 0.69 mg/dL (Normal) Range: 0.57-1.00 BUN 5 mg/dL (Abnormal) Range: 6-24 Glucose, Serum 84 mg/dL (Normal) Range: 65-99 70-Fni-708316:26 URINE ARELY CULTURE-IDENTIFICATN Comments: PATIENT NOT FASTINGPERFORMED BY: [employer] Ckhpcz2812 [facility] [id number] ([id number]) Result 1 NG36 (Normal) Comments: No growth in 36 - 48 hours. Urine Culture,Comprehensive Final report (Normal) 29-Cqk-575993:26 CBC W/AUTO DIFF WBC Comments: PATIENT NOT FASTINGPERFORMED BY: [employer] Anymob5974 [facility] [id number] Information: SRC:THAD ([id number]) Immature Grans (Abs) 0.0 {x10E3/uL} (Normal) Range: 0.0-0.1 Immature Granulocytes 0 % (Normal) Baso (Absolute) 0.0 {x10E3/uL} (Normal) Range: 0.0-0.2 Eos (Absolute) 0.1 {x10E3/uL} (Normal) Range: 0.0-0.4 Monocytes(Absolute) 0.5 {x10E3/uL} (Normal) Range: 0.1-0.9 Lymphs (Absolute) 2.1 {x10E3/uL} (Normal) Range: 0.7-3.1 Neutrophils (Absolute) 2.7 {x10E3/uL} (Normal) Range: 1.4-7.0 Basos 0 % (Normal) Eos 1 % (Normal) Monocytes 9 % (Normal) Lymphs 39 % (Normal) Neutrophils 51 % (Normal) Platelets 294 {x10E3/uL} (Normal) Range: 150-379 RDW 14.5 % (Normal) Range: 12.3-15.4 MCHC 34.7 g/dL (Normal) Range: 31.5-35.7 MCH 33.4 pg (Abnormal) Range: 26.6-33.0 MCV 96 fL (Normal) Range: 79-97 Hematocrit 31.7 % (Abnormal) Range: 34.0-46.6 Hemoglobin 11.0 g/dL (Abnormal) Range: 11.1-15.9 RBC 3.29 {x10E6/uL} (Abnormal) Range: 3.77-5.28 WBC 5.4 {x10E3/uL} (Normal) Range: 3.4-10.8 :26 URINALYSIS, W/ MICRO (56390) Comments: PATIENT NOT FASTINGPERFORMED BY: [facility] Apcwom7780 [facility] [id number] Microscopic Examination See below: (Normal) Comments: Microscopic was indicated and was performed. Microscopic Examination MICRON (Normal) Comments: Microscopic follows if indicated. Nitrite, Urine Negative (Normal) Urobilinogen,Semi-Qn 0.2 mg/dL (Normal) Range: 0.2-1.0 Bilirubin Negative (Normal) Occult Blood Negative (Normal) Ketones Negative (Normal) Glucose Negative (Normal) Protein Negative (Normal) WBC Esterase Negative (Normal) Appearance Clear (Normal) Urine-Color Yellow (Normal) pH 7.5 (Normal) Range: 5.0-7.5 Specific [place] 1.005 (Normal) Range: 1.005-1.030 :53 Partial Thromboplast Time Comments: [facility] [address] [place], [address] PTT 34.1 s (Normal) Range: 24.1-36.2 :53 Prothrombin Time w/INR Comments: [address] [place], [address] INR 1.1 (Normal) PROTIME 14.1 s (Normal) Range: 11.7-14.9 :43 CBC W/Diff, Automated Comments: [place] [address] [place], [place], [id number] Absolute Lymph 1.00 {X10_3/ul} (Normal) Range: 0.83-4.51 Absolute Neut 14.0 {X10_3/uL} (Abnormal) Range: 2.0-7.7 IM GRAN % 0.100 % (Normal) Range: 0.0-0.9 Comments: IG% - Immature Granulocytes (promyelocytes, myelocytes andmetamyelocytes) > 1% indicates that a LEFT SHIFT is Present. BASO% 0.1 % (Normal) Range: 0-1 EO% 0.1 % (Normal) Range: 0-5 MONO% 8.7 % (Normal) Range: 0-10 LY% 6.0 % (Abnormal) Range: 19-41 NEUT% 85.0 % (Abnormal) Range: 47-70 MPV 8.9 fL (Normal) Range: 6.2-12.0 PLT 254 K/mm3 (Normal) Range: 150-450 RDW SD 48.9 fL (Abnormal) Range: 35.1-43.9 RDW CV 13.8 % (Normal) Range: 11.6-14.6 MCHC 33.9 {g/gl} (Normal) Range: 32-36 MCH 33.0 pg (Abnormal) Range: 27.0-32.0 MCV 97.2 fL (Normal) Range: 81-99 HCT 34.8 % (Abnormal) Range: 37-47 HGB 11.8 g/dL (Abnormal) Range: 12.0-15.0 RBC 3.58 {M/mm3} (Abnormal) Range: 4.2-5.4 WBC 16.5 K/mm3 (Abnormal) Range: 4.4-11.0 73-Dbi-495838:43 Comprehensive Metabolic Profil Comments: [facility] [address] [place], [place], [id number] GAP 11 (Normal) Range: 5-15 CO2 24.0 mmol/L (Normal) Range: 21.0-32.0 CL 94 mmol/L (Abnormal) Range: 98-107 K 3.5 mmol/L (Normal) Range: 3.5-5.1 NA 129 mmol/L (Abnormal) Range: 136-145 T BILI 0.70 mg/dL (Normal) Range: 0.20-1.00 ALT 17 U/L (Normal) Range: 12-78 ALK P 51 U/L (Normal) Range: 50-136 AST 5 U/L (Abnormal) Range: 15-37 CA 8.0 mg/dL (Abnormal) Range: 8.5-10.1 A/G 1.4 {RATIO} (Normal) Range: 0.9-2.4 GLOB 2.7 g/dL (Normal) Range: 2.3-3.5 ALB 3.7 g/dL (Normal) Range: 3.4-5.0 T PROT 6.4 g/dL (Normal) Range: 6.4-8.2 BUN/CRE 8.6 {RATIO} (Abnormal) Range: 10-20 Estimated CRCL 90.38 ml/min (Normal) EST GFR - AA 112 mL/min (Normal) Comments: GFR Calc EST GFR 93 mL/min (Normal) Comments: Non- GFR Calc CREAT,SERUM 0.70 mg/dL (Normal) Range: 0.55-1.20 Comments: The validity of the calculated GFR AND GFRAA in patients over70 years has not been determined. Clinical correlation isessential. BUN 6 mg/dL (Abnormal) Range: 7-18 GLU 82 mg/dL (Normal) Range: 70-110 78-Rdd-698901:43 Lactic Acid Comments: [facility] [address] [place], [address] LACTIC ACID 1.5 mmol/L (Normal) Range: 0.4-2.0 2-Cfy-264184:06 Metabolic Panel, Basic (75247) Comments: PATIENT NOT FASTINGPERFORMED BY: [facility] Yrexss2808 [facility] [id number] Calcium, Serum 9.9 mg/dL (Normal) Range: 8.7-10.2 Carbon Dioxide, Total 25 mmol/L (Normal) Range: 18-29 Chloride, Serum 94 mmol/L (Abnormal) Range: 97-108 Potassium, Serum 4.8 mmol/L (Normal) Range: 3.5-5.2 Sodium, Serum 138 mmol/L (Normal) Range: 134-144 BUN/Creatinine Ratio 6 (Abnormal) Range: 9-23 eGFR If Africn Am 118 mL/min/1.73 (Normal) eGFR If NonAfricn Am 102 mL/min/1.73 (Normal) Creatinine, Serum 0.64 mg/dL (Normal) Range: 0.57-1.00 BUN 4 mg/dL (Abnormal) Range: 6-24 Glucose, Serum 82 mg/dL (Normal) Range: 65-99 :06 PHOSPHORUS (80478) Comments: PATIENT NOT FASTINGPERFORMED BY: [facility] Flcuvv3496 [address] [id number] Phosphorus, Serum 3.8 mg/dL (Normal) Range: 2.5-4.5 8-Ocy-656423:06 PARATHORMONE (21410) Comments: PATIENT NOT FASTINGPERFORMED BY: [facility] Tbqkwo3519 [address] [id number] PTH, Intact 30 pg/mL (Normal) Range: 15-65 3-Elf-698905:06 SPEP (55102) Comments: PATIENT NOT FASTINGPERFORMED BY: [facility] Ropqwa4265 [place] [id number] Information: [id number] Please note: SPRCS (Normal) Comments: Protein electrophoresis scan will follow via computer, mail, orcourier delivery. A/G Ratio 1.4 (Normal) Range: 0.7-1.7 Globulin, Total 3.1 g/dL (Normal) Range: 2.2-3.9 M-Logan Not Observed g/dL (Normal) Gamma Globulin 1.1 g/dL (Normal) Range: 0.4-1.8 Beta Globulin 1.0 g/dL (Normal) Range: 0.7-1.3 Oluhk-5-Aoldwgdq 0.8 g/dL (Normal) Range: 0.4-1.0 Nuzau-3-Mycttmcv 0.3 g/dL (Normal) Range: 0.0-0.4 Albumin 4.4 g/dL (Normal) Range: 2.9-4.4 Protein, Total, Serum 7.5 g/dL (Normal) Range: 6.0-8.5 :06 UPEP (18832) Comments: PATIENT NOT FASTINGPERFORMED BY: [facility] [id number] Please note: SPRCS (Normal) Comments: Protein electrophoresis scan will follow via computer, mail, orcourier delivery. M-Logan, % Not Observed % (Normal) Gamma Globulin, U 43.5 % (Normal) Beta Globulin, U 33.9 % (Normal) Zwxpf-2-Mgptobkz, U 9.6 % (Normal) Oyilg-4-Tmqgfsla, U 0.8 % (Normal) Albumin, U 12.1 % (Normal) Protein,Total,Urine <4.0 mg/dL (Normal) Comments: Verified by repeat analysis 1-Pfx-935514:23 URINE CALCIUM SPRING TIMED Comments: PATIENT NOT FASTINGPERFORMED BY: [facility] [id number] Information: [id number] 24 Hour (60403) Calcium, Urine 24hr 133.5 {mg/24_hr} (Normal) Range: 100.0-300.0 Calcium, Urine 3.0 mg/dL (Normal) :08 METABOLIC PANEL, Comments: PATIENT NOT FASTINGPERFORMED BY: [facility] [id number] Information: [id number] COMPREHENSIVE (29360) ALT (SGPT) 15 [iU]/L (Normal) Range: 0-32 AST (SGOT) 17 [iU]/L (Normal) Range: 0-40 Alkaline Phosphatase, S 76 [iU]/L (Normal) Range: 39-117 Bilirubin, Total 0.5 mg/dL (Normal) Range: 0.0-1.2 A/G Ratio 2.1 (Normal) Range: 1.1-2.5 Globulin, Total 2.2 g/dL (Normal) Range: 1.5-4.5 Albumin, Serum 4.6 g/dL (Normal) Range: 3.5-5.5 Protein, Total, Serum 6.8 g/dL (Normal) Range: 6.0-8.5 Calcium, Serum 9.5 mg/dL (Normal) Range: 8.7-10.2 Carbon Dioxide, Total 23 mmol/L (Normal) Range: 18-29 Chloride, Serum 94 mmol/L (Abnormal) Range: 97-108 Potassium, Serum 4.6 mmol/L (Normal) Range: 3.5-5.2 Sodium, Serum 133 mmol/L (Abnormal) Range: 134-144 BUN/Creatinine Ratio 6 (Abnormal) Range: 9-23 eGFR If Africn Am 116 mL/min/1.73 (Normal) eGFR If NonAfricn Am 101 mL/min/1.73 (Normal) Creatinine, Serum 0.67 mg/dL (Normal) Range: 0.57-1.00 BUN 4 mg/dL (Abnormal) Range: 6-24 Glucose, Serum 92 mg/dL (Normal) Range: 65-99 :34 Urinalysis, Office (97100) UA - LEUKOCYTE ESTERASE Negative (Normal) UA - NITRITE Negative (Normal) URINE UROBILINGN SPRING TIMED Normal mg/dL (Normal) UA - PROTEIN Negative mg/dL (Normal) UA - PH 8.5 (Normal) UA - BLOOD Negative (Normal) UA - SPECIFIC GRAVITY 1.015 (Normal) UA - KETONES Negative mg/dL (Normal) UA - BILIRUBIN Negative (Normal) UA - GLUCOSE Negative (Normal) 01-Sep-20159:58 URINE ARELY CULTURE (SPRING Comments: PATIENT NOT FASTINGPERFORMED BY: [facility] TownshipMnkhqz4870 [facility] [id number] Information: SRC:[place] [id number] COL COUNT) (15278) Result 1 NG36 (Normal) Comments: No growth in 36 - 48 hours. Urine Culture,Comprehensive Final report (Normal) 36-Jpx-258123:00 CBC W/Diff, Automated Comments: [facility] [address] [place], [address] Absolute Lymph 1.49 {X10_3/ul} (Normal) Range: 0.83-4.51 Absolute Neut 4.0 {X10_3/uL} (Normal) Range: 2.0-7.7 IM GRAN % 0.200 % (Normal) Range: 0.0-0.9 Comments: IG% - Immature Granulocytes (promyelocytes, myelocytes andmetamyelocytes) > 1% indicates that a LEFT SHIFT is Present. BASO% 0.5 % (Normal) Range: 0-1 EO% 0.5 % (Normal) Range: 0-5 MONO% 10.0 % (Normal) Range: 0-10 LY% 24.1 % (Normal) Range: 19-41 NEUT% 64.7 % (Normal) Range: 47-70 MPV 10.0 fL (Normal) Range: 6.2-12.0 PLT 294 K/mm3 (Normal) Range: 150-450 RDW SD 46.2 fL (Abnormal) Range: 35.1-43.9 RDW CV 13.2 % (Normal) Range: 11.6-14.6 MCHC 34.6 {g/gl} (Normal) Range: 32-36 MCH 33.9 pg (Abnormal) Range: 27.0-32.0 MCV 98.0 fL (Normal) Range: 81-99 HCT 39.3 % (Normal) Range: 37-47 HGB 13.6 g/dL (Normal) Range: 12.0-15.0 RBC 4.01 {M/mm3} (Abnormal) Range: 4.2-5.4 WBC 6.2 K/mm3 (Normal) Range: 4.4-11.0 60-Tyo-043124:00 Comprehensive Metabolic Profil Comments: [facility] [address] [place], [place], [id number] GAP 5 (Normal) Range: 5-15 CO2 28.0 mmol/L (Normal) Range: 21.0-32.0 CL 98 mmol/L (Normal) Range: 98-107 K 4.4 mmol/L (Normal) Range: 3.5-5.1 NA 131 mmol/L (Abnormal) Range: 136-145 T BILI 0.80 mg/dL (Normal) Range: 0.20-1.00 ALT 34 U/L (Normal) Range: 12-78 ALK P 71 U/L (Normal) Range: 50-136 AST 19 U/L (Normal) Range: 15-37 CA 9.2 mg/dL (Normal) Range: 8.5-10.1 A/G 1.2 {RATIO} (Normal) Range: 0.9-2.4 GLOB 3.6 g/dL (Abnormal) Range: 2.3-3.5 ALB 4.4 g/dL (Normal) Range: 3.4-5.0 T PROT 8.0 g/dL (Normal) Range: 6.4-8.2 BUN/CRE 10.3 {RATIO} (Normal) Range: 10-20 EST GFR - AA 117 mL/min (Normal) Comments: GFR Calc EST GFR 96 mL/min (Normal) Comments: Non- GFR Calc CREAT,SERUM 0.68 mg/dL (Normal) Range: 0.55-1.20 Comments: The validity of the calculated GFR AND GFRAA in patients over70 years has not been determined. Clinical correlation isessential. BUN 7 mg/dL (Normal) Range: 7-18 GLU 93 mg/dL (Normal) Range: 70-110 86-Hmj-595895:00 Free T3 Comments: [facility] [address] [facility] [place], [address] FREE T3 2.9 pg/mL (Normal) Range: 2.18-3.98 56-Eze-644259:00 T4 Free Direct Comments: [facility] [address] [facility] [place], [address] T4 FREE DIRECT 1.07 ng/dL (Normal) Range: 0.76-1.46 16-Jih-500657:00 Thyroid Stim Hormone (TSH) Comments: [facility] [address] [facility] [address]. [place], [place], [address] TSH 0.16 {uIU/mL} (Abnormal) Range: 0.358-3.74 5-Lgw-509908:38 HGB A1C (49162) Comments: PATIENT NOT FASTINGPERFORMED BY: [employer] [facility] [id number] Information: [id number] Hemoglobin A1c 5.7 % (Abnormal) Range: 4.8-5.6 Comments: . Pre-diabetes: 5.7 - 6.4 Diabetes: >6.4 Glycemic control for adults with diabetes: <7.0 David Arce BMP8 SPRCS (Normal) Comments: A courtesy copy of this report [facility] been [facility].PATIENT WAS FASTINGPERFORMED BY: [employer] [facility] [id number] :51 Default Comments: A hand-written panel/profile was received from your office. Inaccordance with the [facility] Ambiguous Test Code Policy dated August2002, we have completed your order by using the closest currentlyor formerl y recognized AMA panel. We have assigned Basic MetabolicPanel (8), Test Code #183308 to this request. If this is not thetesting you wished to receive on this specimen, please contact [facility] Client Inquiry/Technical Services Department to clarify thetest order. We appreciate your business. David Varghesev LP Default SPRCS (Normal) Comments: A courtesy copy of this report has been sent [facility].PATIENT WAS FASTINGPERFORMED BY: [facility] [id number] :51 Comments: A hand-written panel/profile was received from your office. Inaccordance with the [facility] Ambiguous Test Code Policy dated August2002, we have completed your order by using the closest currentlyor formerl y recognized AMA panel. We have assigned Lipid Panel,Test Code #204764 to this request. If this is not the testing youwished to receive on this specimen, please contact the [facility]/Techni alberto Services Department to clarify the testorder. We appreciate your business. :51 CBC With Differential/Platelet Comments: A courtesy copy of this report has been sent [facility].PATIENT WAS FASTINGPERFORMED BY: [facility] Mfrkdy4819 [facility] [id number] Immature Grans (Abs) 0.0 {x10E3/uL} (Normal) Range: 0.0-0.1 Immature Granulocytes 0 % (Normal) Baso (Absolute) 0.0 {x10E3/uL} (Normal) Range: 0.0-0.2 Eos (Absolute) 0.0 {x10E3/uL} (Normal) Range: 0.0-0.4 Monocytes(Absolute) 0.5 {x10E3/uL} (Normal) Range: 0.1-0.9 Lymphs (Absolute) 1.5 {x10E3/uL} (Normal) Range: 0.7-3.1 Neutrophils (Absolute) 2.7 {x10E3/uL} (Normal) Range: 1.4-7.0 Basos 0 % (Normal) Eos 0 % (Normal) Monocytes 11 % (Normal) Lymphs 31 % (Normal) Neutrophils 58 % (Normal) Platelets 301 {x10E3/uL} (Normal) Range: 150-379 RDW 14.4 % (Normal) Range: 12.3-15.4 MCHC 33.6 g/dL (Normal) Range: 31.5-35.7 MCH 32.3 pg (Normal) Range: 26.6-33.0 MCV 96 fL (Normal) Range: 79-97 Hematocrit 40.2 % (Normal) Range: 34.0-46.6 Hemoglobin 13.5 g/dL (Normal) Range: 11.1-15.9 RBC 4.18 {x10E6/uL} (Normal) Range: 3.77-5.28 WBC 4.8 {x10E3/uL} (Normal) Range: 3.4-10.8 53-Lti-667911:51 Comp. Metabolic Panel (14) Comments: A courtesy copy of this report has been sent [facility].PATIENT WAS FASTINGPERFORMED BY: [facility]CoSaint [facility] TownshipPyipir0725 [facility] [id number] ALT (SGPT) 14 [iU]/L (Normal) Range: 0-32 AST (SGOT) 14 [iU]/L (Normal) Range: 0-40 Alkaline Phosphatase, S 56 [iU]/L (Normal) Range: 39-117 Bilirubin, Total 0.6 mg/dL (Normal) Range: 0.0-1.2 A/G Ratio 2.2 (Normal) Range: 1.1-2.5 Globulin, Total 2.2 g/dL (Normal) Range: 1.5-4.5 Albumin, Serum 4.9 g/dL (Normal) Range: 3.5-5.5 Protein, Total, Serum 7.1 g/dL (Normal) Range: 6.0-8.5 Calcium, Serum 9.6 mg/dL (Normal) Range: 8.7-10.2 Carbon Dioxide, Total 22 mmol/L (Normal) Range: 18-29 Chloride, Serum 100 mmol/L (Normal) Range: 97-108 Potassium, Serum 4.5 mmol/L (Normal) Range: 3.5-5.2 Sodium, Serum 141 mmol/L (Normal) Range: 134-144 BUN/Creatinine Ratio 10 (Normal) Range: 9-23 eGFR If Africn Am 116 mL/min/1.73 (Normal) eGFR If NonAfricn Am 100 mL/min/1.73 (Normal) Creatinine, Serum 0.69 mg/dL (Normal) Range: 0.57-1.00 BUN 7 mg/dL (Normal) Range: 6-24 Glucose, Serum 101 mg/dL (Abnormal) Range: 65-99 24-Amh-802042:51 Lipid Panel Comments: A courtesy copy of this report has been sent [facility].PATIENT WAS FASTINGPERFORMED BY: [employer] Eukdzl4356 [facility] [id number]; non-emergent till apt LDL Cholesterol Calc 120 mg/dL (Abnormal) Range: 0-99 VLDL Cholesterol Alberto 17 mg/dL (Normal) Range: 5-40 HDL Cholesterol 81 mg/dL (Normal) Comments: According to ATP-III Guidelines, HDL-C >59 mg/dL is considered anegative risk factor for CHD. Triglycerides 87 mg/dL (Normal) Range: 0-149 Cholesterol, Total 218 mg/dL (Abnormal) Range: 100-199 Vitamin D, 25-Hydroxy 55.5 ng/mL (Normal) Comments: A courtesy copy of this report has been sent [facility].PATIENT WAS FASTINGPERFORMED BY: [employer] Jsgnkc0302 [facility] [id number] 0:51 Range: 30.0-100.0 Comments: Vitamin D deficiency has been defined by the Stephens ofMedicine and an Endocrine Society practice guideline as alevel of serum 25-OH vitamin D less than 20 ng/mL (1,2).The Endocrine Society went on to further define vitamin Dinsufficiency as a level between 21 and 29 ng/mL (2).1. IOM (Stephens of Medicine). 2010. Dietary reference intakes for calcium and D. [place]: The National Academies Press.2. Mateusz MF, Mary NC, Enma KENDALL, et al. Evaluation, treatment, and prevention of vitamin D deficiency: an Endocrine Society clinical practice guideline. JCEM. 2010; 96(7):1911-30. 05-Ibu-443535:28 Sputum Culture (37851) Comments: PATIENT NOT FASTINGPERFORMED BY: [facility] Bjkvee[address] [place] [id number] Information: [id number] Result 1 STREPN (Abnormal) Comments: Streptococcus pneumoniaeHeavy growthUse of cefotaxime or ceftriaxone in meningitis requires therapy withmaximum doses. (CLSI) .For cef otaxime, use of interpretive criteria for nonmeningitisrequires doses appropriate for serious pneumococcal infections(e.g., at least 1 g (adults) or 50 mg/kg (children) every eight hoursor more frequent ly). (CLSI) .Use of penicillin in meningitis requires therapy with maximum dosesof IV penicillin (e.g. at least 3 million units every 4 hours inadults with normal renal function). (CLSI)This nonmeningitis penicillin- susceptible pneumococcal isolate canbe considered susceptible to the oral agents amoxicillin,amoxicillin-clavulanic acid , ampicillin, cefaclor, cefdinir,cefditoren, cefpodoxime, cefprozil, cefuroxime, and loracarbef, andto the parenteral agents ampicillin, ampicillin-sulbactam, cefepime,cefotaxime, ceftizoxime, ceftriaxo ne, cefuroxime, ertapenem, imipenem,and meropenem, for approved indications. Doses of IV penicillin of atleast 2 million units every 4 hours in adults with normal renalfunction (12 million units per day ) are effective in treatingnonmeningeal pneumococcal infections due to strains that aresusceptible to penicillin. (CLSI 2011)Routine respiratory floraLight growth S = Susceptible; I = Intermedia te; R = Resistant P = Positive; N = Negative MICS are expressed in micrograms per mL Antibiotic RSLT#1 RSLT#2 RSLT#3 RSLT#4Cefotaxime (meningit is) SCefotaxime (non-meningitis) SCeftriaxone (meningitis) SCeftriaxone (non-meningitis) SErythromycin SLevofloxacin SMeropenem SPenicillin (oral pen V) SPenicillin IV (meningitis) SPenicillin IV (non-mening) STetracycline STrimethoprim/Sulfa SVancomycin S Lower Respiratory Final report Culture (Abnormal) :49 Free T3 Comments: Has Patient had X-rays with Contrast this admission? NIs Patient on Heparin? [facility] [address] [place], [place], [id number] FREE T3 1.9 pg/mL (Abnormal) Range: 2.18-3.98 :49 T4 Free Direct Comments: Has Patient had X-rays with Contrast this admission? NIs Patient on Heparin? [facility] [address] [facility] [address] [place], [place], [id number] T4 FREE DIRECT 0.84 ng/dL (Normal) Range: 0.76-1.46 08-Shv-902136:49 Thyroid Stim Hormone (TSH) Comments: Has Patient had X-rays with Contrast this admission? NIs Patient on Heparin? [facility] [address] [place], [place], [id number] TSH 0.04 {uIU/mL} (Abnormal) Range: 0.358-3.74 :43 CBC W/Diff, Automated Comments: Test performed at:[facility] [address] [place] [address] [id number] Absolute Lymph 2.39 {X10_3/ul} (Normal) Range: 0.83-4.51 Absolute Neut 5.0 {X10_3/uL} (Normal) Range: 2.0-7.7 IM GRAN % 0.100 % (Normal) Range: 0.0-0.9 Comments: IG% - Immature Granulocytes (promyelocytes, myelocytes andmetamyelocytes) > 1% indicates that a LEFT SHIFT is Present. BASO% 0.3 % (Normal) Range: 0-1 EO% 0.5 % (Normal) Range: 0-5 MONO% 7.3 % (Normal) Range: 0-10 LY% 29.9 % (Normal) Range: 19-41 NEUT% 61.9 % (Normal) Range: 47-70 MPV 9.7 fL (Normal) Range: 6.2-12.0 PLT 299 K/mm3 (Normal) Range: 150-450 RDW SD 47.6 fL (Abnormal) Range: 35.1-43.9 RDW CV 13.4 % (Normal) Range: 11.6-14.6 MCHC 33.5 {g/gl} (Normal) Range: 32-36 MCH 32.7 pg (Abnormal) Range: 27.0-32.0 MCV 97.7 fL (Normal) Range: 81-99 HCT 38.5 % (Normal) Range: 37-47 HGB 12.9 g/dL (Normal) Range: 12.0-15.0 RBC 3.94 {M/mm3} (Abnormal) Range: 4.2-5.4 WBC 8.0 K/mm3 (Normal) Range: 4.4-11.0 [id number] Comprehensive Metabolic Profil Comments: Test performed at:[facility] [address] [place] [address] GAP 7 (Normal) Range: 5-15 CO2 27.0 mmol/L (Normal) Range: 21.0-32.0 CL 102 mmol/L (Normal) Range: 98-107 K 3.8 mmol/L (Normal) Range: 3.5-5.1 NA 136 mmol/L (Normal) Range: 136-145 T BILI 0.60 mg/dL (Normal) Range: 0.20-1.00 ALT 23 U/L (Normal) Range: 12-78 ALK P 68 U/L (Normal) Range: 50-136 AST 7 U/L (Abnormal) Range: 15-37 CA 9.0 mg/dL (Normal) Range: 8.5-10.1 A/G 1.4 {RATIO} (Normal) Range: 0.9-2.4 GLOB 3.1 g/dL (Normal) Range: 2.3-3.5 ALB 4.3 g/dL (Normal) Range: 3.4-5.0 T PROT 7.4 g/dL (Normal) Range: 6.4-8.2 BUN/CRE 7.0 {RATIO} (Abnormal) Range: 10-20 EST GFR - AA 112 mL/min (Normal) EST GFR 92 mL/min (Normal) CREAT,SERUM 0.71 mg/dL (Normal) Range: 0.55-1.20 Comments: The validity of the calculated GFR AND GFRAA in patients over70 years has not been determined. Clinical correlation isessential. BUN 5 mg/dL (Abnormal) Range: 7-18 GLU 92 mg/dL (Normal) Range: 70-110 38-Zxx-92416:34 Comprehensive Metabolic Profil Comments: ORDERED LIPID,CMPDR.SNEHA ORDERED TSH,HARLEEN,DHEATest performed at:[facility] [address] [facility] [place] [address] GAP 11 (Normal) Range: 5-15 CO2 25.0 mmol/L (Normal) Range: 21.0-32.0 CL 103 mmol/L (Normal) Range: 98-107 K 3.9 mmol/L (Normal) Range: 3.5-5.1 NA 139 mmol/L (Normal) Range: 136-145 T BILI 0.70 mg/dL (Normal) Range: 0.20-1.00 ALT 21 U/L (Normal) Range: 12-78 ALK P 59 U/L (Normal) Range: 50-136 AST 8 U/L (Abnormal) Range: 15-37 CA 9.0 mg/dL (Normal) Range: 8.5-10.1 A/G 1.3 {RATIO} (Normal) Range: 0.9-2.4 GLOB 3.0 g/dL (Normal) Range: 2.3-3.5 ALB 3.9 g/dL (Normal) Range: 3.4-5.0 T PROT 6.9 g/dL (Normal) Range: 6.4-8.2 BUN/CRE 9.7 {RATIO} (Abnormal) Range: 10-20 EST GFR - AA 130 mL/min (Normal) EST GFR 107 mL/min (Normal) CREAT,SERUM 0.62 mg/dL (Normal) Range: 0.55-1.20 Comments: Please note revised CREATININE reference range lzgmbiaud00/22/2015. BUN 6 mg/dL (Abnormal) Range: 7-18 GLU 97 mg/dL (Normal) Range: 70-110 71-Awf-13976:34 DHEA Sulfate Comments: Has Patient had Radioactive Injection for X-ray?: NTest performed at:[facility] [address] [facility] [place] [address] DHEA SULF 4020 26.8 ug/dL (Abnormal) Range: 41.2-243.7 Comments: Performed at: - [facility] [id number] Director: Sean Daniel PhD, Phone: [phone] 64-Hwf-97632:34 Lipid Profile Comments: ORDERED LIPID,ANTONELLA ORDERED TSH,HARLEEN,DHEATest performed at:[facility] [address] [place] [address] VLDL 14 mg/dL (Normal) Range: 5-40 LDL 113 mg/dL (Normal) Range: 0-130 HDL 63 mg/dL (Normal) Comments: Reference Range HDL <40 mg/dL Low HDL Cholesterol HDL >or= 60 mg/dL High HDL Cholesterol TRIG 70 mg/dL (Normal) Comments: Serum Triglycerides Reference Interval Normal <150 mg/dL Borderline high 150 - 199 mg/dL High 200 - 499 mg/dL Very High > or = 500 mg/dL CHOL 190 mg/dL (Normal) Comments: <200 mg/dL Desirable 200-240 mg/dL Borderline >240 mg/dL High Risk :34 Testosterone, Serum Total Comments: Test performed at:[facility] [address] [place] [address] Testosterone 20 ng/dL (Normal) Range: 14-76 71-Wtd-32936:34 Thyroid Stim Hormone (TSH) Comments: ORDERED LIPID,ANTONELLA ORDERED TSH,HARLEEN,DHEATest performed at:[facility] [address]zvr28[address] [place] [address] TSH < 0.01 {uIU/mL} (Abnormal) Range: 0.358-3.74 36-Vhy-906975:12 CBC W/Diff, Automated Comments: Test performed at:[facility] [address]ji[address] [place] [address] Absolute Lymph 1.81 {X10_3/ul} (Normal) Range: 0.83-4.51 Absolute Neut 3.6 {X10_3/uL} (Normal) Range: 2.0-7.7 IM GRAN % 0.200 % (Normal) Range: 0.0-0.9 Comments: IG% - Immature Granulocytes (promyelocytes, myelocytes andmetamyelocytes) > 1% indicates that a LEFT SHIFT is Present. BASO% 0.5 % (Normal) Range: 0-1 EO% 0.5 % (Normal) Range: 0-5 MONO% 8.2 % (Normal) Range: 0-10 LY% 30.4 % (Normal) Range: 19-41 NEUT% 60.2 % (Normal) Range: 47-70 MPV 10.2 fL (Normal) Range: 6.2-12.0 PLT 303 K/mm3 (Normal) Range: 150-450 RDW SD 47.6 fL (Abnormal) Range: 35.1-43.9 RDW CV 13.5 % (Normal) Range: 11.6-14.6 MCHC 32.5 {g/gl} (Normal) Range: 32-36 MCH 31.6 pg (Normal) Range: 27.0-32.0 MCV 97.0 fL (Normal) Range: 81-99 HCT 41.8 % (Normal) Range: 37-47 HGB 13.6 g/dL (Normal) Range: 12.0-15.0 RBC 4.31 {M/mm3} (Normal) Range: 4.2-5.4 WBC 6.0 K/mm3 (Normal) Range: 4.4-11.0 64-Itw-888322:12 Comprehensive Metabolic Profil Comments: Test performed at:[facility] [address] [place], [place] [id number] GAP 6 (Normal) Range: 5-15 CO2 29.0 mmol/L (Normal) Range: 21.0-32.0 CL 104 mmol/L (Normal) Range: 98-107 K 4.4 mmol/L (Normal) Range: 3.5-5.1 NA 139 mmol/L (Normal) Range: 136-145 T BILI 0.70 mg/dL (Normal) Range: 0.20-1.00 ALT 25 U/L (Normal) Range: 12-78 ALK P 78 U/L (Normal) Range: 50-136 AST 14 U/L (Abnormal) Range: 15-37 CA 9.5 mg/dL (Normal) Range: 8.5-10.1 A/G 1.1 {RATIO} (Normal) Range: 0.9-2.4 GLOB 3.7 g/dL (Normal) Range: 2.7-4.2 ALB 4.2 g/dL (Normal) Range: 3.4-5.0 T PROT 7.9 g/dL (Normal) Range: 6.4-8.2 BUN/CRE 10.0 {RATIO} (Normal) Range: 10-20 EST GFR - AA 136 mL/min (Normal) EST GFR 112 mL/min (Normal) CREAT,SERUM 0.6 mg/dL (Normal) Range: 0.6-1.0 BUN 6 mg/dL (Abnormal) Range: 7-18 GLU 97 mg/dL (Normal) Range: 70-110 :36 DHEA Sulfate Comments: Has Patient had Radioactive Injection for X-ray?: NTest performed at:[facility] [address] [place] [address] DHEA SULF 4020 22.6 ug/dL (Abnormal) Range: 41.2-243.7 Comments: Performed at: [email or web address] - [facility] [id number] Director: Omer Stout PhD, Phone: [phone] :[phone] Free T3 Comments: Has Patient had X-rays with Contrast this admission? ??NIs Patient on Heparin? ??NTest performed at:[facility] [address] ??[place], [place] ??[address] FREE T3 4.7 pg/mL (Abnormal) Range: 2.18-3.98 :36 T4 Free Direct Comments: Has Patient had X-rays with Contrast this admission? NIs Patient on Heparin? NTest performed at:[facility] [address] [place] [address] T4 FREE DIRECT 1.54 ng/dL (Abnormal) Range: 0.76-1.46 :36 Thyroid Stim Hormone (TSH) Comments: Has Patient had X-rays with Contrast this admission? NIs Patient on Heparin? NTest performed at:[facility] [address] [place] [address] [place] [address] TSH < 0.01 {uIU/mL} (Abnormal) Range: 0.358-3.74 :36 Vitamin D,25 Hydroxy Comments: Test performed at:[facility] [address] [place] [address] Vitamin D 25-OH 34.0 ng/mL (Normal) Comments: Vitamin D 25(OH) Status Range Deficiency <20 ng/mL (50nmol/L) Insuffciency 20 - 30 ng/mL (50 - 75 nmol/L) Sufficiency 30 - 100 ng/mL (75 - 250 nmol/L) Toxicity >100 ng/mL (>250 nmol/L) :02 CBC W/Diff, Automated Comments: Test performed at:[facility] [address] [place] [address] ; non- emergent till apt Absolute Lymph 2.06 {X10_3/ul} (Normal) Range: 0.83-4.51 Absolute Neut 3.3 {X10_3/uL} (Normal) Range: 2.0-7.7 IM GRAN % 0.200 % (Normal) Range: 0.0-0.9 Comments: IG% - Immature Granulocytes (promyelocytes, myelocytes andmetamyelocytes) > 1% indicates that a LEFT SHIFT is Present. BASO% 0.3 % (Normal) Range: 0-1 EO% 1.2 % (Normal) Range: 0-5 MONO% 9.5 % (Normal) Range: 0-10 LY% 34.2 % (Normal) Range: 19-41 NEUT% 54.6 % (Normal) Range: 47-70 MPV 9.5 fL (Normal) Range: 6.2-12.0 PLT 344 K/mm3 (Normal) Range: 150-450 RDW SD 45.6 fL (Abnormal) Range: 35.1-43.9 RDW CV 13.1 % (Normal) Range: 11.6-14.6 MCHC 33.0 {g/gl} (Normal) Range: 32-36 MCH 31.5 pg (Normal) Range: 27.0-32.0 MCV 95.3 fL (Normal) Range: 81-99 HCT 40.9 % (Normal) Range: 37-47 HGB 13.5 g/dL (Normal) Range: 12.0-15.0 RBC 4.29 {M/mm3} (Normal) Range: 4.2-5.4 WBC 6.0 K/mm3 (Normal) Range: 4.4-11.0 :02 Comprehensive Metabolic Profil Comments: Test performed at:[facility] [address] [place] [address] GAP 7 (Normal) Range: 5-15 CO2 28.0 mmol/L (Normal) Range: 21.0-32.0 CL 103 mmol/L (Normal) Range: 98-107 K 4.2 mmol/L (Normal) Range: 3.5-5.1 NA 138 mmol/L (Normal) Range: 136-145 T BILI 0.60 mg/dL (Normal) Range: 0.00-4.00 ALT 22 U/L (Normal) Range: 12-78 ALK P 65 U/L (Normal) Range: 50-136 AST 11 U/L (Abnormal) Range: 15-37 CA 9.7 mg/dL (Normal) Range: 8.5-10.1 A/G 1.2 {RATIO} (Normal) Range: 0.9-2.4 GLOB 3.3 g/dL (Normal) Range: 2.7-4.2 ALB 4.0 g/dL (Normal) Range: 3.4-5.0 T PROT 7.3 g/dL (Normal) Range: 6.4-8.2 BUN/CRE 8.3 {RATIO} (Abnormal) Range: 10-20 EST GFR - AA 136 mL/min (Normal) EST GFR 112 mL/min (Normal) CREAT,SERUM 0.6 mg/dL (Normal) Range: 0.6-1.0 BUN 5 mg/dL (Abnormal) Range: 7-18 GLU 93 mg/dL (Normal) Range: 70-110 :02 Lipid Profile Comments: Test performed at:[facility] [address] [place], [place] [id number] VLDL 14 mg/dL (Normal) Range: 5-40 LDL 107 mg/dL (Normal) Range: 0-130 HDL 77 mg/dL (Normal) Comments: Reference Range HDL <40 mg/dL Low HDL Cholesterol HDL >or= 60 mg/dL High HDL Cholesterol TRIG 70 mg/dL (Normal) Range: 0-199 Comments: Serum Triglycerides Reference Interval Normal <150 mg/dL Borderline high 150 - 199 mg/dL High 200 - 499 mg/dL Very High > or = 500 mg/dL CHOL 198 mg/dL (Normal) Comments: <200 mg/dL Desirable 200-240 mg/dL Borderline >240 mg/dL High Risk 63-Aws-227705:09 CBC W/Diff, Automated Comments: Test performed at:[facility] [address] [place], [place] [id number] ; handled by kerri Absolute Lymph 2.45 {X10_3/ul} (Normal) Range: 0.83-4.51 Absolute Neut 4.7 {X10_3/uL} (Normal) Range: 2.0-7.7 IM GRAN % 0.100 % (Normal) Range: 0.0-0.9 Comments: IG% - Immature Granulocytes (promyelocytes, myelocytes andmetamyelocytes) > 1% indicates that a LEFT SHIFT is Present. BASO% 0.4 % (Normal) Range: 0-1 EO% 0.4 % (Normal) Range: 0-5 MONO% 9.4 % (Normal) Range: 0-10 LY% 30.8 % (Normal) Range: 19-41 NEUT% 58.9 % (Normal) Range: 47-70 MPV 9.7 fL (Normal) Range: 6.2-12.0 PLT 305 K/mm3 (Normal) Range: 150-450 RDW SD 43.4 fL (Normal) Range: 35.1-43.9 RDW CV 13.1 % (Normal) Range: 11.6-14.6 MCHC 33.9 {g/gl} (Normal) Range: 32-36 MCH 32.0 pg (Normal) Range: 27.0-32.0 MCV 94.4 fL (Normal) Range: 81-99 HCT 38.7 % (Normal) Range: 37-47 HGB 13.1 g/dL (Normal) Range: 12.0-15.0 RBC 4.10 {M/mm3} (Abnormal) Range: 4.2-5.4 WBC 8.0 K/mm3 (Normal) Range: 4.4-11.0 88-Xyp-295329:09 Comprehensive Metabolic Profil Comments: Test performed at:[facility] [address] [place] [address] ; kerri GAP 6 (Normal) Range: 5-15 CO2 28.0 mmol/L (Normal) Range: 21.0-32.0 CL 102 mmol/L (Normal) Range: 98-107 K 4.0 mmol/L (Normal) Range: 3.5-5.1 NA 136 mmol/L (Normal) Range: 136-145 T BILI 0.50 mg/dL (Normal) Range: 0.00-4.00 ALT 35 U/L (Normal) Range: 12-78 ALK P 66 U/L (Normal) Range: 50-136 AST 19 U/L (Normal) Range: 15-37 CA 9.5 mg/dL (Normal) Range: 8.5-10.1 A/G 1.3 {RATIO} (Normal) Range: 0.9-2.4 GLOB 3.4 g/dL (Normal) Range: 2.7-4.2 ALB 4.4 g/dL (Normal) Range: 3.4-5.0 T PROT 7.8 g/dL (Normal) Range: 6.4-8.2 BUN/CRE 11.4 {RATIO} (Normal) Range: 10-20 EST GFR - AA 114 mL/min (Normal) EST GFR 94 mL/min (Normal) CREAT,SERUM 0.7 mg/dL (Normal) Range: 0.6-1.0 BUN 8 mg/dL (Normal) Range: 7-18 GLU 79 mg/dL (Normal) Range: 70-110 :19 CMP Comments: DR BROWN ORDERED LIPID CMPDR TRES ORDERED CMP CBCD GAP 4 (Abnormal) Range: 5-15 CO2 28.0 mmol/L (Normal) Range: 21.0-32.0 CL 106 mmol/L (Normal) Range: 98-107 K 4.2 mmol/L (Normal) Range: 3.5-5.1 NA 138 mmol/L (Normal) Range: 136-145 BIT 0.50 mg/dL (Normal) Range: 0.00-4.00 ALT 25 U/L (Normal) Range: 12-78 ALK 56 U/L (Normal) Range: 50-136 AST 13 U/L (Abnormal) Range: 15-37 CA 8.7 mg/dL (Normal) Range: 8.5-10.1 AG 1.1 {RATIO} (Normal) Range: 0.9-2.4 GLOB 3.3 g/dL (Normal) Range: 2.7-4.2 ALB 3.6 g/dL (Normal) Range: 3.4-5.0 TPROT 6.9 g/dL (Normal) Range: 6.4-8.2 BC 8.3 {RATIO} (Abnormal) Range: 10-20 GFRAA 136 mL/min (Normal) GFR 112 mL/min (Normal) CREAT 0.6 mg/dL (Normal) Range: 0.6-1.0 BUN 5 mg/dL (Abnormal) Range: 7-18 GLU 98 mg/dL (Normal) Range: 70-110 88-Hme-62342:19 LIPID Comments: DR BRWON ORDERED LIPID CMPDR TRES ORDERED CMP CBCD VLDL 12 mg/dL (Normal) Range: 5-40 LDL 91 mg/dL (Normal) Range: 0-130 HDL 65 mg/dL (Normal) Comments: Reference RangeHDL <40 mg/dL Low HDL CholesterolHDL >or= 60 mg/dL High HDL Cholesterol TRIG 61 mg/dL (Normal) Range: 0-199 Comments: Serum Triglycerides Reference IntervalNormal <150 mg/dLBorderline high 150 - 199 mg/dLHigh 200 - 499 mg/ dLVery High > or = 500 mg/dL CHOL 168 mg/dL (Normal) Comments: <200 mg/dL Yplmztngh959-921 mg/dL Borderline>240 mg/dL High Risk 66-Eby-521673:51 CBCD ALC 2.36 {X10_3/ul} (Normal) Range: 0.83-4.51 ANC 4.9 {X10_3/uL} (Normal) Range: 2.0-7.7 B% 0.3 % (Normal) Range: 0-1 IG% 0.100 % (Normal) Range: 0.0-0.9 Comments: IG% - Immature Granulocytes (promyelocytes, myelocytes andmetamyelocytes) > 1% indicates that a LEFT SHIFT is Present. E% 0.6 % (Normal) Range: 0-5 M% 8.2 % (Normal) Range: 0-10 L% 29.6 % (Normal) Range: 19-41 N% 61.2 % (Normal) Range: 47-70 MPV 9.9 fL (Normal) Range: 6.2-12.0 PLT 271 K/mm3 (Normal) Range: 150-450 RDWSD 45.3 fL (Abnormal) Range: 35.1-43.9 RDWCV 13.3 % (Normal) Range: 11.6-14.6 MCHC 34.3 {g/gl} (Normal) Range: 32-36 MCH 33.2 pg (Abnormal) Range: 27.0-32.0 MCV 96.6 fL (Normal) Range: 81-99 HCT 37.3 % (Normal) Range: 37-47 HGB 12.8 g/dL (Normal) Range: 12.0-15.0 RBC 3.86 {M/mm3} (Abnormal) Range: 4.2-5.4 WBC 8.0 K/mm3 (Normal) Range: 4.4-11.0 49-Pbj-424405:51 CMP Comments: DR VILLAFANA ORDERED CBCD CMP ONLYHas Patient had X-rays with Contrast this admission? N GAP 6 (Normal) Range: 5-15 CL 98 mmol/L (Normal) Range: 98-107 CO2 28.0 mmol/L (Normal) Range: 21.0-32.0 K 4.1 mmol/L (Normal) Range: 3.5-5.1 NA 132 mmol/L (Abnormal) Range: 136-145 ALT 29 U/L (Normal) Range: 12-78 BIT 0.50 mg/dL (Normal) Range: 0.00-1.00 ALK 56 U/L (Normal) Range: 45-117 AST 16 U/L (Normal) Range: 15-37 CA 9.2 mg/dL (Normal) Range: 8.5-10.1 AG 1.4 {RATIO} (Normal) Range: 0.9-2.4 ALB 4.3 g/dL (Normal) Range: 3.4-5.0 GLOB 3.0 g/dL (Normal) Range: 2.7-4.2 TPROT 7.3 g/dL (Normal) Range: 6.4-8.2 BC 7.1 {RATIO} (Abnormal) Range: 10-20 GFRAA 114 mL/min (Normal) GFR 94 mL/min (Normal) CREAT 0.7 mg/dL (Normal) Range: 0.6-1.0 BUN 5 mg/dL (Abnormal) Range: 7-18 GLU 89 mg/dL (Normal) Range: 70-110 10-Wrm-035095:51 CORTU Comments: Has Patient had Radioactive Injection for X-ray?: N tCORTU 9 ug/L (Normal) [id number] 39 {ug/24_hr} (Normal) Range: 0-50 21-Flz-197385:51 DHEA 19.8 ug/dL (Abnormal) Comments: Has Patient had Radioactive Injection for X-ray?: N Range: 41.2-243.7 Comments: Performed at: - [facility] [address] [id number] Director: Eusebio Live MD, Phone: [phone] at: - [facility] [place] [id number] Director: Omer Stout PhD, Phone: [phone] 15-Qmk-860268:51 FT3 2.2 pg/mL (Normal) Comments: DR VILLAFANA ORDERED CBCD CMP ONLYs Patient had X-rays with Contrast this admission? N Range: 2.18-3.98 88-Oii-903827:51 METAU Comments: Has Patient had Radioactive Injection for X-ray?: N tMETA 40 ug/L (Normal) tMETA24 172 {ug/24_hr} (Normal) Range: 45-290 Comments: (Hypertensive) >17 years 11 months: 35 - 460 tNORM24 292 {ug/24_hr} (Normal) Range: 82-500 Comments: (Hypertensive) >17 years 11 months: 110 - 1050 tNORM 68 ug/L (Normal) 87-Qlh-310906:51 T4F 0.98 ng/dL (Normal) Comments: DR VILLAFANA ORDERED CBCD CMP ONLYHas Patient had X-rays with Contrast this admission? N Range: 0.76-1.46 12-Nqo-604508:51 TSH 0.66 {uIU/mL} (Normal) Comments: DR VILLAFANA ORDERED CBCD CMP ONLYHas Patient had X-rays with Contrast this admission? N Range: 0.358-3.74 05-Kuw-899077:51 VITD 51.8 mg/mL (Normal) Comments: Vitamin D 25(OH) Status RangeDeficiency <20 ng/mL (50nmol/L)Insuffciency 20 - 30 ng/mL (50 - 75 nmol/L)Sufficiency 30 - 100 ng/mL (75 - 250 nmol/L)Toxicity >100 ng/mL (>250 nmol/L) 1-Ssi-891295:01 URINE ARELY CULTURE-SPRING COL Comments: PATIENT NOT FASTINGPERFORMED BY: [facility] TownshipKiebgf9[facility] [id number] Information: SRC:UR [id number] COUNT ([id number]) Result 1 NG36 (Normal) Comments: No growth in 36 - 48 hours. Urine Culture,Comprehensive Final report (Normal) 0-Dwi-752653:44 Urinalysis, Office ([id number]) UA - LEUKOCYTE ESTERASE Negative (Normal) UA - NITRITE Negative (Normal) URINE UROBILINGN SPRING TIMED Normal mg/dL (Normal) UA - PROTEIN Negative mg/dL (Normal) UA - PH 8.5 (Normal) UA - BLOOD Negative (Normal) UA - SPECIFIC GRAVITY 1.015 (Normal) UA - KETONES Negative mg/dL (Normal) UA - BILIRUBIN Negative (Normal) UA - GLUCOSE Negative (Normal) 27-Aug-20139:00 CMP Comments: LIPID CMPDRESTHER CMP TSH T4F T3F VITD DHEA GAP 7 (Normal) Range: 5-15 CO2 27.0 mmol/L (Normal) Range: 21.0-32.0 CL 100 mmol/L (Normal) Range: 98-107 K 4.2 mmol/L (Normal) Range: 3.5-5.1 NA 134 mmol/L (Abnormal) Range: 136-145 BIT 0.30 mg/dL (Normal) Range: 0.00-1.00 ALT 25 U/L (Normal) Range: 12-78 ALK 49 U/L (Normal) Range: 45-117 AST 12 U/L (Abnormal) Range: 15-37 CA 9.3 mg/dL (Normal) Range: 8.5-10.1 AG 1.2 {RATIO} (Normal) Range: 0.9-2.4 GLOB 3.5 g/dL (Normal) Range: 2.7-4.2 ALB 4.2 g/dL (Normal) Range: 3.4-5.0 TPROT 7.7 g/dL (Normal) Range: 6.4-8.2 BC 21.7 {RATIO} (Abnormal) Range: 10-20 GFRAA 136 mL/min (Normal) GFR 112 mL/min (Normal) CREAT 0.6 mg/dL (Normal) Range: 0.6-1.0 BUN 13 mg/dL (Normal) Range: 7-18 GLU 81 mg/dL (Normal) Range: 70-110 :00 DHEA 18.8 ug/dL (Abnormal) Comments: Has Patient had Radioactive Injection for X-ray?: N Range: 41.2-243.7 Comments: Performed at: [address] [id number] Director: Sterling Porter MD, Phone: [phone] FT3 2.4 pg/mL (Normal) Comments: LIPID RUBI CMP TSH T4F T3F VITD DHEA Range: 2.18-3.98 :00 LIPID Comments: LIPID RUBI CMP TSH T4F T3F VITD DHEA VLDL 13 mg/dL (Normal) Range: 5-40 LDL 148 mg/dL (Abnormal) Range: 0-130 HDL 74 mg/dL (Normal) Comments: Reference RangeHDL <40 mg/dL Low HDL CholesterolHDL >or= 60 mg/dL High HDL Cholesterol TRIG 64 mg/dL (Normal) Range: 0-199 Comments: Serum Triglycerides Reference IntervalNormal <150 mg/dLBorderline high 150 - 199 mg/dLHigh 200 - 499 mg/ dLVery High > or = 500 mg/dL CHOL 235 mg/dL (Abnormal) Comments: <200 mg/dL Ptxtjtcoi499-453 mg/dL Borderline>240 mg/dL High Risk :00 T4F 0.98 ng/dL (Normal) Comments: LIPID CMPDR.SHEREEEWA CMP TSH T4F T3F VITD DHEA Range: 0.76-1.46 :00 TSH 0.16 {uIU/mL} (Abnormal) Comments: LIPID CMPDRESTHER CMP TSH T4F T3F VITD DHEA Range: 0.358-3.74 :00 VITD 56.0 mg/mL (Normal) Comments: Vitamin D 25(OH) Status RangeDeficiency <20 ng/mL (50nmol/L)Insuffciency 20 - 30 ng/mL (50 - 75 nmol/L)Sufficiency 30 - 100 ng/mL (75 - 250 nmol/L)Toxicity >100 ng/mL (>250 nmol/L) :54 OS 273 {mOsm/KG} (Abnormal) Range: 275-295 :54 [facility]SU 268 {mOsm/KG} (Normal) Comments: OSMOLALITY URINE REFERENCE PZYYSOOQB42-fljc Urine 300 - 900 mOsm/kgRandom Urine 50 - 1400 mOsm/kgAfter 12 Hr fluid restriction >850 mOsm/kg 16-Zpj-423608:31 24HULYT Comments: ST 07/25/13 1130AM CREATININE AND SODIUM ONLYST 1130AM uCL24 63 {mmol/24h} (Abnormal) Range: 110-250 CLU 14 mmol/L (Normal) KU 15.5 mmol/L (Normal) uK24 70.1 {mmol/24h} (Normal) Range: 25-125 uNA24 72 {mmol/24h} (Normal) Range: 40-220 EMELI 16 mmol/L (Normal) uLYTV 4525 mL (Normal) 37-Ilj-214135:31 UCRE Comments: ST 07/25/13 1130AM CREATININE AND SODIUM ONLYST 1130AM UCCT 24.0 {HOURS} (Normal) UCRE24 1.2 {g/24_hr} (Normal) Range: 0.6-1.5 UCTV 4.53 L (Normal) URCREAT 26.8 mg/dL (Normal) 20-Uru-279166:30 CAU Comments: ST 07/25/13 1130AMST 07/25/13/1130AMComments: [id number] 24 hr sodium urine tCAU24 90.0 {mg/24_hr} (Normal) Range: 100.0-300.0 Comments: Reference Tpwnt696.0 - 300.0Total volumne: 4525 ml/24hrPerformed at: - [facility] [address] [id number] Director: Sterling Porter MD, Phone: [phone] CAUR 2.1 mg/dL (Normal) 15-Epd-309630:18 CBCD ALC 2.09 {X10_3/ul} (Normal) Range: 0.83-4.51 ANC 4.4 {X10_3/uL} (Normal) Range: 2.0-7.7 IG% 0.100 % (Normal) Range: 0.0-0.9 Comments: IG% - Immature Granulocytes (promyelocytes, myelocytes andmetamyelocytes) > 1% indicates that a LEFT SHIFT is Present. B% 0.3 % (Normal) Range: 0-1 E% 0.4 % (Normal) Range: 0-5 L% 29.8 % (Normal) Range: 19-41 M% 6.1 % (Normal) Range: 0-10 N% 63.3 % (Normal) Range: 47-70 MPV 10.1 fL (Normal) Range: 6.2-12.0 PLT 262 K/mm3 (Normal) Range: 150-450 RDWSD 42.5 fL (Normal) Range: 35.1-43.9 RDWCV 12.9 % (Normal) Range: 11.6-14.6 MCHC 34.7 {g/gl} (Normal) Range: 32-36 MCH 32.5 pg (Abnormal) Range: 27.0-32.0 MCV 93.7 fL (Normal) Range: 81-99 HCT 37.2 % (Normal) Range: 37-47 HGB 12.9 g/dL (Normal) Range: 12.0-15.0 RBC 3.97 {M/mm3} (Abnormal) Range: 4.2-5.4 WBC 7.0 K/mm3 (Normal) Range: 4.4-11.0 77-Xfl-106453:18 CMP Comments: Comments: [id number] 24 hr sodium urine GAP 8 (Normal) Range: 5-15 CO2 27.0 mmol/L (Normal) Range: 21.0-32.0 CL 96 mmol/L (Abnormal) Range: 98-107 K 3.9 mmol/L (Normal) Range: 3.5-5.1 NA 131 mmol/L (Abnormal) Range: 136-145 BIT 0.60 mg/dL (Normal) Range: 0.00-1.00 ALK 52 U/L (Normal) Range: 45-117 ALT 27 U/L (Normal) Range: 12-78 AST 14 U/L (Abnormal) Range: 15-37 CA 9.0 mg/dL (Normal) Range: 8.5-10.1 AG 1.3 {RATIO} (Normal) Range: 0.9-2.4 GLOB 3.2 g/dL (Normal) Range: 2.7-4.2 ALB 4.2 g/dL (Normal) Range: 3.4-5.0 TPROT 7.4 g/dL (Normal) Range: 6.4-8.2 BC 8.3 {RATIO} (Abnormal) Range: 10-20 GFRAA 136 mL/min (Normal) GFR 112 mL/min (Normal) CREAT 0.6 mg/dL (Normal) Range: 0.6-1.0 BUN 5 mg/dL (Abnormal) Range: 7-18 GLU 86 mg/dL (Normal) Range: 70-110 :33 BMP CO2 29.0 mmol/L (Normal) Range: 21.0-32.0 GAP 3 (Abnormal) Range: 5-15 CL 100 mmol/L (Normal) Range: 98-107 K 4.1 mmol/L (Normal) Range: 3.5-5.1 NA 132 mmol/L (Abnormal) Range: 136-145 CA 8.9 mg/dL (Normal) Range: 8.5-10.1 BC 10.0 {RATIO} (Normal) Range: 10-20 GFRAA 136 mL/min (Normal) GFR 112 mL/min (Normal) CREAT 0.6 mg/dL (Normal) Range: 0.6-1.0 BUN 6 mg/dL (Abnormal) Range: 7-18 GLU 137 mg/dL (Abnormal) Range: 70-110 Comments: Fasting Glucose result greater than or equal to 126 mg/dLsuggests DIABETES MELLITUS per A.D.A. criteria. [id number] PTHIN 37 pg/mL (Normal) Range: 14-72 :31 CMP GAP 7 (Normal) Range: 5-15 CO2 27.0 mmol/L (Normal) Range: 21.0-32.0 CL 105 mmol/L (Normal) Range: 98-107 K 4.3 mmol/L (Normal) Range: 3.5-5.1 NA 139 mmol/L (Normal) Range: 136-145 BIT 0.50 mg/dL (Normal) Range: 0.00-1.00 ALT 24 U/L (Normal) Range: 12-78 ALK 57 U/L (Normal) Range: 45-117 AST 13 U/L (Abnormal) Range: 15-37 CA 9.4 mg/dL (Normal) Range: 8.5-10.1 AG 1.3 {RATIO} (Normal) Range: 0.9-2.4 GLOB 3.3 g/dL (Normal) Range: 2.7-4.2 ALB 4.2 g/dL (Normal) Range: 3.4-5.0 TPROT 7.5 g/dL (Normal) Range: 6.4-8.2 BC 10.0 {RATIO} (Normal) Range: 10-20 GFRAA 136 mL/min (Normal) GFR 112 mL/min (Normal) CREAT 0.6 mg/dL (Normal) Range: 0.6-1.0 BUN 6 mg/dL (Abnormal) Range: 7-18 GLU 96 mg/dL (Normal) Range: 70-110 :31 DHEA 27.5 ug/dL (Abnormal) Comments: Has Patient had Radioactive Injection for X-ray?: N Range: 41.2-243.7 Comments: Performed at: - [facility] [id number] Director: Sterling Porter MD, Phone: [phone] T4F 1.03 ng/dL (Normal) Range: 0.76-1.46 :31 TSH 0.10 {uIU/mL} (Abnormal) Range: 0.358-3.74 :31 VITD 39.9 mg/mL (Normal) Comments: Vitamin D 25(OH) Status RangeDeficiency <20 ng/mL (50nmol/L)Insuffciency 20 - 30 ng/mL (50 - 75 nmol/L)Sufficiency 30 - 100 ng/mL (75 - 250 nmol/L)Toxicity >100 ng/mL (>250 nmol/L) :17 CMP Comments: DR BROWN ORDERED CMP LIPIDDR WIETECHA ORDERED TSH T3F T4F BMP GAP 7 (Normal) Range: 5-15 CO2 29.0 mmol/L (Normal) Range: 21.0-32.0 CL 104 mmol/L (Normal) Range: 98-107 K 4.0 mmol/L (Normal) Range: 3.5-5.1 BIT 0.50 mg/dL (Normal) Range: 0.00-1.00 NA 140 mmol/L (Normal) Range: 136-145 ALT 28 U/L (Normal) Range: 12-78 ALK 71 U/L (Normal) Range: 50-136 AST 16 U/L (Normal) Range: 15-37 CA 8.9 mg/dL (Normal) Range: 8.5-10.1 AG 1.3 {RATIO} (Normal) Range: 0.9-2.4 GLOB 3.2 g/dL (Normal) Range: 2.7-4.2 ALB 4.0 g/dL (Normal) Range: 3.4-5.0 TPROT 7.2 g/dL (Normal) Range: 6.4-8.2 BC 8.6 {RATIO} (Abnormal) Range: 10-20 GFR 94 mL/min (Normal) GFRAA 114 mL/min (Normal) CREAT 0.7 mg/dL (Normal) Range: 0.6-1.0 BUN 6 mg/dL (Abnormal) Range: 7-18 GLU 98 mg/dL (Normal) Range: 70-110 :17 FT3 2.0 pg/mL (Abnormal) Comments: DR BROWN ORDERED CMP LIPIDDR WIETECHA ORDERED TSH T3F T4F BMP Range: 2.18-3.98 :17 LIPID Comments: DR BROWN ORDERED CMP LIPIDDR WIETECHA ORDERED TSH T3F T4F BMP LDL 106 mg/dL (Normal) Range: 0-130 VLDL 12 mg/dL (Normal) Range: 5-40 HDL 58 mg/dL (Normal) Comments: Reference RangeHDL <40 mg/dL Low HDL CholesterolHDL >or= 60 mg/dL High HDL Cholesterol TRIG 60 mg/dL (Normal) Range: 0-199 Comments: Serum Triglycerides Reference IntervalNormal <150 mg/dLBorderline high 150 - 199 mg/dLHigh 200 - 499 mg/ dLVery High > or = 500 mg/dL CHOL 176 mg/dL (Normal) Comments: <200 mg/dL [id number] mg/dL Borderline>240 mg/dL High Risk :17 T4F 1.08 ng/dL (Normal) Comments: DR BROWN ORDERED CMP LIPIDDR WIETECHA ORDERED TSH T3F T4F BMP Range: 0.76-1.46 :17 TSH 0.49 {uIU/mL} (Normal) Comments: DR BROWN ORDERED CMP LIPIDDR WIETECHA ORDERED TSH T3F T4F BMP Range: 0.358-3.74 7-Tnt-[id number]:52 BREAST UNILATERAL Radiology See Note Comments: STUDY: ULTRASOUND BREAST(S) - LEFT REASON FOR EXAM: Female, 52 years old. Left breast soreness. TECHNIQUE: Axial and longitudinal images of the LEFT breast wereperformed with a high resolution ul Report (Normal) trasound transducer. COMPARISON: Comparison is made with prior mammogram done earlier in theday. FINDINGS: LEFT BREAST:The entire left breast was examined. There is a homogeneousfibroglandulartissue. No solid or cystic mass is seen. Clinical correlation isrecommended. IMPRESSION:Unremarkable sonographic examination of the left breast. ASSESSMENT CATEGORY:BIRADS Category 2: Benign finding(s). Signed:Barrera Galeana M.D.November 02, 2012 at 4:00:42 PM [id number] Signed GP/GP If you are the referring physician and would like to consult with theradiologist who provided this interpretation, please contact Luis Angel Quintana at [phone]. If this radiologist is un available, youwill be directed to another radiologist to assist. If you are a patient with a question regarding this report, pleasecontactyour referring physician directly. Professional Interpretation P rovided By: Karmasphere, Phone , These documents contain legally protected and confidential healthinformation intended only for the use of the individual or entity namedabo ve. If you are not the intended recipient, you are hereby notifiedthatany disclosure, copying, distribution, or other use of these documents isstrictly prohibited. If you have received this information in error,pleasenotify the sender immediately and arrange for the return or destructionofthese documents. Dictated on 11/02/12 1600 by Wendy IRVIN,Kimranscribed on 11/02/12 1609 by ITS IMPORTSi gn by Barrera Galeana MD on 11/02/12 1610 Sign by: Barrera Galeana MD 02-Nov-20120:00 UNILAT LT DIAG DIGITAL & CAD Radiology See Note Comments: MAMMOGRAPHY - UNILATERAL DIAGNOSTIC: LEFT BREAST REASON FOR EXAM: Female, 52 years old. Left breast tenderness andsoreness. PERTINENT HISTORY: Mother with breast cancer. TECHNIQUE: Digital examin Report (Normal) ation. Mediolateral oblique (MLO) andcraniocaudad (CC) views of the breast were obtained. CAD: CAD wasperformedon this study. COMPARISON: Comparison is made with prior mammogram dated June 22n d June 24, 2011. FINDINGS:The breast composition is composed of scattered fibroglandular tissuesranging from 25% to 50% of the breast. There are no dominant masses or suspicious calcifications. The patientisstatus post stereotactic biopsy in the upper outer portion of the leftbreast. No other significant abnormalities are identified. There has been nosignificant c luis fernandoe since the prior study. IMPRESSION:Stable unilateral diagnostic mammogram. One year follow-up recommended.(A) ASSESSMENT CATEG ORY:BIRADS Category 2: Benign finding(s). A letter regarding these resultswill be sent to the patient by the facility within 30 days. Approximately 10% of breast cancers are not detected by mammograph y. Anormal mammogram should not delay biopsy of a clinically suspiciousabnormality. Signed:Barrera Galeana M.D.November 02, 2012 at 3:22:08 PM [id number] Signed GP/GP If you are the referring physician and would like to consult with theradiologist who provided this interpretation, please contact Luis Angel Quintana at [phone]. If this radiologist is unavailable, youwil l be directed to another radiologist to assist. If you are a patient with a question regarding this report, pleasecontactyour referring physician directly. Professional Interpretation Provided By: Lara sarmiento, Phone , These documents contain legally protected and confidential healthinformation intended only for the use of the individual or entity namedabove. If you are no t the intended recipient, you are hereby notifiedthatany disclosure, copying, distribution, or other use of these documents isstrictly prohibited. If you have received this information in error,pleaseno tify the sender immediately and arrange for the return or destructionofthese documents. Dictated on 11/02/12 1522 by Hilary Galeana MDribed on 11/02/12 153 by ITS IMPORTSign by Barrera Kennedy on 11/02/12 153 Sign by: Barrera Galeana MD 83-Vyr-53289:00 ABDOMEN/PELVIS WITHOUT CONT Radiology Report See Note Comments: PROCEDURE: CT ABDOMEN AND PELVIS WITHOUT CONTRAST REASON FOR EXAM: Female, 52 years old. Microscopic hematuria. RADIATION DOSAGE (If Supplied By Facility): CTDIvol = ( 8.06 ) mGy, DLP=( 397.40 ) mG (Normal) ycm TECHNIQUE: Transaxial images were obtained from the dome of thediaphragmto the symphysis pubis without oral contrast, and without intravenouscontrast. Multiplanar coronal and sagittal images were reformatted. COMPARISON: None. FINDINGS:The visualized lung bases are unremarkable. There is a mild degree ofpericardial thickening at the base of the heart. Tg l liver. Normal gallbladder and extrahepatic biliary system. Thereis a benign calcified granuloma of the spleen. Normal pancreas. There is a small, circumscribed, smooth, low attenuation right adrena lmass, consistent with an adrenal adenoma. It measures 2.1 cm. Normal leftadrenal gland. Normal right kidney. Normal left kidney. Normal visualized stomach. Normal small intestine. Normal colon. The patient is status post appendectomy. There is scattered atherosclerotic calcification of the abdominal aorta,without a demonstrated aneurysm. Normal inferior vena cava. Normalretroperitoneum. Normal u rinary bladder. There is absence of the uterus consistent with aprior hysterectomy. Normal abdominal wall. The patient is status post L5-S1 interpedicularscrew fixation. There is evidence of disk spa ce narrowing and anteriorlisthesis of L5 on S1. IMPRESSION:Mild degree of pericardial thickening.Right adrenal nodule. Signed:Barrera Galeana M.D.September 14, 2012 at 8:22:23 AM [id number] Signed GP/GP If you are the referring physician and would like to consult with theradiologist who provided this interpretation, please contact Luis Angel Quintana at [phone]. If this radiologist is unavailable, youwill be directed to another radiologist to assist. If you are a patient with a question regarding this report, pleasecontactyour referring niecy trey directly. Professional Interpretation Provided By: Karmasphere, Phone , These documents contain legally protected and confidential healthinformation intended only for the use of the individual or entity namedabove. If you are not the intended recipient, you are hereby notifiedthatany disclosure, copying, distribution, or other use of these documents isstrictly pr ohibited. If you have received this information in error,pleasenotify the sender immediately and arrange for the return or destructionofthese documents. Dictated on 09/14/12821 by Aureliano Galeana MDranscribed on 09/14/12823 by ITS IMPORTSign by Barrera Galeana MD on 09/14/12824 Sign by: Barrera Galeana MD 97-Kmp-620966:15 URINE ARELY CULTURE-IDENTIFICATN Comments: PATIENT NOT FASTINGPERFORMED BY: [facility] TownshipOrnynm0392 [facility] [id number] Information: ADD [id number] ([id number]) Result 1 NG36 (Normal) Comments: No growth in 36 - 48 hours. Urine Culture,Comprehensive Final report (Normal) 04-Aer-459134:03 Urinalysis, Office (87751) UA - BILIRUBIN Negative (Normal) UA - BLOOD Non Hemolyzed Trace (Normal) UA - GLUCOSE Negative (Normal) UA - KETONES Negative mg/dL (Normal) UA - LEUKOCYTE ESTERASE Negative (Normal) UA - NITRITE Negative (Normal) UA - PH 7.0 (Normal) UA - PROTEIN Negative mg/dL (Normal) UA - SPECIFIC GRAVITY 1.010 (Normal) URINE UROBILINGN SPRING TIMED Normal mg/dL (Normal) 71-Nnz-781415:14 CBCMD ANC 3.2 3/uL (Normal) Range: 2.0-7.7 IG% 0.00 % (Normal) Range: 0.0-0.0 B% 0.5 % (Normal) Range: 0-1 E% 4.1 % (Normal) Range: 0-5 M% 12.4 % (Abnormal) Range: 0-10 L% 28.9 % (Normal) Range: 19-41 N% 54.1 % (Normal) Range: 47-70 MPV 10.0 fL (Normal) Range: 6.2-12.0 PLT 273 K/mm3 (Normal) Range: 150-450 RDWSD 44.5 fL (Abnormal) Range: 35.1-43.9 RDWCV 12.8 % (Normal) Range: 11.6-14.6 MCHC 33.7 g/dL (Normal) Range: 32-36 MCH 32.4 pg (Abnormal) Range: 27.0-32.0 MCV 96.2 fL (Normal) Range: 81-99 HCT 40.4 % (Normal) Range: 37-47 HGB 13.6 g/dL (Normal) Range: 12.0-15.0 RBC 4.20 {M/mm3} (Normal) Range: 4.2-5.4 WBC 5.9 {k/mm3} (Normal) Range: 4.4-11.0 42-Qad-902380:14 CMP GAP 8 (Normal) Range: 5-15 CO2 28.0 mmol/L (Normal) Range: 21.0-32.0 CL 100 mmol/L (Normal) Range: 98-107 K 4.0 mmol/L (Normal) Range: 3.5-5.1 NA 136 mmol/L (Normal) Range: 136-145 BIT 0.50 mg/dL (Normal) Range: 0.00-1.00 ALT 24 U/L (Normal) Range: 12-78 ALK 64 U/L (Normal) Range: 50-136 AST 12 U/L (Abnormal) Range: 15-37 CA 9.5 mg/dL (Normal) Range: 8.5-10.1 AG 1.5 {RATIO} (Normal) Range: 0.9-2.4 GLOB 2.9 g/dL (Normal) Range: 2.7-4.2 ALB 4.4 g/dL (Normal) Range: 3.4-5.0 TPROT 7.3 g/dL (Normal) Range: 6.4-8.2 BC 10.0 {RATIO} (Normal) Range: 10-20 GFRAA 114 mL/min (Normal) GFR 94 mL/min (Normal) CREAT 0.7 mg/dL (Normal) Range: 0.6-1.0 BUN 7 mg/dL (Normal) Range: 7-18 GLU 86 mg/dL (Normal) Range: 70-110 46-Kcu-067109:14 FT3 3.5 pg/mL (Normal) Range: 2.18-3.98 22-Jck-871305:14 LIPID VLDL 12 mg/dL (Normal) Range: 5-40 LDL 127 mg/dL (Normal) Range: 0-130 HDL 67 mg/dL (Normal) Comments: Reference RangeHDL <40 mg/dL Low HDL CholesterolHDL >or= 60 mg/dL High HDL Cholesterol TRIG 58 mg/dL (Normal) Comments: Serum Triglycerides Reference IntervalNormal <150 mg/dLBorderline high 150 - 199 mg/dLHigh 200 - 499 mg/ dLVery High > or = 500 mg/dL CHOL 206 mg/dL (Abnormal) Comments: <200 mg/dL Qjvktimek035-769 mg/dL Borderline>240 mg/dL High Risk 27-Yuc-540655:14 T4F 1.17 ng/dL (Normal) Range: 0.76-1.46 :14 TSH 0.02 {uIU/mL} (Abnormal) Range: 0.358-3.74 :14 VITD 39.9 ng/mL (Normal) Comments: Vitamin D 25(OH) Status RangeDeficiency <20 ng/mL (50nmol/L)Insufficiency 20 - 30 ng/mL (50 - 75 nmol/L)Sufficiency 30 - 100 ng/mL (75 - 250 nm ol/L)Toxicity >100 ng/mL (250 nmol/L)Effective 201222-Jun-201218-Thp-940211:23 BILAT SCRN DIGITAL & CAD Radiology Report See Note (Normal) Comments: MAMMOGRAPHY - BILATERAL SCREENING REASON FOR EXAM: Female, 51 years old. Routine annual screeningexamination. PERTINENT HISTORY: Mother with breast cancer. TECHNIQUE: Digital examinat ion. Mediol ateral oblique (MLO) andcraniocaudad (CC) views of both breasts were obtained. CAD: CAD wasperformed on this study. COMPARISON: Comparison is made with prior study dated June 23ndApril 1. FINDINGS:The breast composition is composed of scattered fibroglandular densities. There are no dominant masses or suspicious calcifications. The patientisstatus post left stereotactic biopsy. No ot her significant abnormalities are identified. There has been nosignificant change since the prior study. IMPRESSION:Stable bilateral screening mammogram. Yearly follow-up recommended. (A) ASSESSMENT CATEGORY:BIRADS Category 2: Benign finding(s). A letter regarding these resultswill be sent to the patient by the facility within 30 days. Approximately 10% of breast cancers are not detected by mamm ography. Anormal mammogram should not delay biopsy of a clinically suspiciousabnormality. Signed:Barrera Galeana M.D.June 22, 2012 at 2:15:23 PM [id number] Signed GP/GP If you a re the referring physician and would like to consult with theradiologist who provided this interpretation, please contact Luis Angel Quintana at [phone]. If this radiologist is unavailable, you will be directed to another radiologist to assist. If you are a patient with a question regarding this report, pleasecontactyour referring physician directly. Professional Interpretation Provided By: Edita queen, Phone , These documents contain legally protected and confidential healthinformation intended only for the use of the individual or entity namedabove. If you are not the intended recipient, you are hereby notifiedthatany disclosure, copying, distribution, or other use of these documents isstrictly prohibited. If you have received this information in error,pleas enotify the sender immediately and arrange for the return or destructionofthese documents. Dictated on 06/22/12 1323 by Hilary Galeana MDribed on 06/22/12 1417 by ITS IMPORTSign by Barrera Vega i, MD on 06/22/12 1418 Sign by: Barrera Galeana MD 22-Jun-2012 glu gtt4 66 mg/dL Comments: 4HR GTT GLU 4 HR GLU GTT-4 HOUR from 0426:[id number]. 11:43 (Abnormal) Range: 70-110 22-Jun-2012 glu gtt3 36 mg/dL Comments: 4HR GTT GLU 3 HR GLU GTT-3 HOUR from 0426:[id number]. 10:50 (Abnormal) Range: 70-110 Comments: CRITICAL VALUE REPEATED AND VERIFIED. CALLED TO ANUEL BENTLEY06/22/12 MARGY SYKES.RESULTS READ BACK BY SAME . 22-Jun-2012 glu gtt2 84 mg/dL (Normal) Comments: 4HR GTT GLU 2 HR GLU GTT-2 HOUR from 0426:[id number]. 9:50 Range: 70-120 22-Jun-2012 glu gtt1 118 mg/dL Comments: 4HR GTT GLU 1 HR GLU GTT-1 HOUR from 0426:[id number]. 8:50 (Abnormal) Range: 120-170 22-Jun-2012 glu gtt.5 140 mg/dL Comments: 4HR GTT GLU 1/2 HR GLU GTT-30 min. from 0426:U03078M. 8:20 (Normal) Range: 110-170 88-Gwg-99816:40 BGM Comments: 4HR GTT FASTING GLU GTT-FASTING from 0426:U90190T. glu gttf 94 mg/dL (Normal) Range: 70-110 Comments: GLUCOSE TOLERANCE TEST Reference IntervalNon- AdultsFasting 70 - 11241 minutes 110 - 1701 hour 120 - 1702 hour 70 - 1203 hour 70 - 1104 hour 70 - 1105 hour 70 - 110 BGM 97 mg/dL (Normal) Range: 70-110 Comments: MANAGEMENT OF PATIENT CARE PER NURSING PROTOCOLNo Action Required0 29-Qxz-69690:40 CBCD Comments: DR DAILY ORDERED [id number] VILLAFANA ORDERED CMP CBCD ANC 2.2 3/uL (Normal) Range: 2.0-7.7 IG% 0.00 % (Normal) Range: 0.0-0.0 B% 0.6 % (Normal) Range: 0-1 E% 1.2 % (Normal) Range: 0-5 M% 10.3 % (Abnormal) Range: 0-10 L% 44.7 % (Abnormal) Range: 19-41 MPV 10.1 fL (Normal) Range: 6.2-12.0 N% 43.2 % (Abnormal) Range: 47-70 PLT 260 K/mm3 (Normal) Range: 150-450 RDWSD 47.5 fL (Abnormal) Range: 35.1-43.9 RDWCV 13.3 % (Normal) Range: 11.6-14.6 MCH 32.4 pg (Abnormal) Range: 27.0-32.0 MCHC 33.1 g/dL (Normal) Range: 32-36 MCV 97.8 fL (Normal) Range: 81-99 HCT 39.9 % (Normal) Range: 37-47 HGB 13.2 g/dL (Normal) Range: 12.0-15.0 RBC 4.08 {M/mm3} (Abnormal) Range: 4.2-5.4 WBC 5.0 {k/mm3} (Normal) Range: 4.4-11.0 :40 CMP Comments: DR DAILY ORDERED [id number] VILLAFANA ORDERED CMP CBCD GAP 8 (Normal) Range: 5-15 CO2 29.0 mmol/L (Normal) Range: 21.0-32.0 CL 102 mmol/L (Normal) Range: 98-107 K 4.3 mmol/L (Normal) Range: 3.5-5.1 NA 139 mmol/L (Normal) Range: 136-145 BIT 0.80 mg/dL (Normal) Range: 0.00-1.00 ALT 22 U/L (Normal) Range: 12-78 ALK 61 U/L (Normal) Range: 50-136 AST 11 U/L (Abnormal) Range: 15-37 CA 8.9 mg/dL (Normal) Range: 8.5-10.1 AG 1.3 {RATIO} (Normal) Range: 0.9-2.4 GLOB 3.3 g/dL (Normal) Range: 2.7-4.2 ALB 4.2 g/dL (Normal) Range: 3.4-5.0 TPROT 7.5 g/dL (Normal) Range: 6.4-8.2 BC 11.3 {RATIO} (Normal) Range: 10-20 GFRAA 98 mL/min (Normal) CREAT 0.8 mg/dL (Normal) Range: 0.6-1.0 GFR 81 mL/min (Normal) BUN 9 mg/dL (Normal) Range: 7-18 GLU 93 mg/dL (Normal) Range: 70-110 :40 GTT4 Comments: DR DAILY ORDERED [id number] VILLAFANA ORDERED CMP CBCD :31 CBC WITH MANUAL DIFF Comments: PATIENT NOT FASTINGPERFORMED BY: JUAN LUIS [facility] [id number] [facility] [id number] Information: [id number] (07937) Immature Grans (Abs) 0.0 {x10E3/uL} (Normal) Range: 0.0-0.1 Immature Granulocytes 0 % (Normal) Range: 0-2 Baso (Absolute) 0.0 {x10E3/uL} (Normal) Range: 0.0-0.2 Eos (Absolute) 0.1 {x10E3/uL} (Normal) Range: 0.0-0.4 Monocytes(Absolute) 0.8 {x10E3/uL} (Normal) Range: 0.1-1.0 Lymphs (Absolute) 3.5 {x10E3/uL} (Normal) Range: 0.7-4.5 Neutrophils (Absolute) 4.6 {x10E3/uL} (Normal) Range: 1.8-7.8 Basos 0 % (Normal) Range: 0-3 Eos 1 % (Normal) Range: 0-7 Monocytes 9 % (Normal) Range: 4-13 Lymphs 38 % (Normal) Range: 14-46 Neutrophils 52 % (Normal) Range: 40-74 Platelets 296 {x10E3/uL} (Normal) Range: 140-415 RDW 13.9 % (Normal) Range: 12.3-15.4 MCHC 34.3 g/dL (Normal) Range: 31.5-35.7 MCH 33.3 pg (Abnormal) Range: 26.6-33.0 MCV 97 fL (Normal) Range: 79-97 Hematocrit 39.6 % (Normal) Range: 34.0-46.6 Hemoglobin 13.6 g/dL (Normal) Range: 11.1-15.9 RBC 4.09 {x10E6/uL} (Normal) Range: 3.77-5.28 WBC 9.0 {x10E3/uL} (Normal) Range: 4.0-10.5 :31 TSH ([id number]) Comments: PATIENT NOT FASTINGPERFORMED BY: [facility]Co[facility] TownshipImwqcv2012 [facility] [id number] TSH 6.430 {uIU/mL} (Abnormal) Range: 0.450-4.500 29-May-20129:31 EBV Panel (11444) Comments: PATIENT NOT FASTINGPERFORMED BY: [address] [id number] Interpretation: SPRCS (Normal) Comments: EBV Interpretation Chart . Interpretation VCA-IgM EA-IgG VCA-IgG NA-ABS . Susceptible - - - - Acute Infection + +or- +or- - Convalescent Phase +or- +or- + + Chronic or Reactivated - + + +or- Old Infection - - +or- + + Antibody Present - Antibody Absent EBV Nuclear Antigen Ab, IgG >8.0 {AI} Range: 0.0-0.8 (Abnormal) Comments: Negative <0.9 Equivocal 0.9 - 1.0 Positive >1.0 EBV Ab VCA, IgG >8.0 {AI} Range: 0.0-0.8 (Abnormal) Comments: Negative <0.9 Equivocal 0.9 - 1.0 Positive >1.0 EBV Early Antigen Ab, IgG <0.2 {AI} (Normal) Range: 0.0-0.8 Comments: Negative <0.9 Equivocal 0.9 - 1.0 Positive >1.0 EBV Ab VCA, IgM <0.2 {AI} (Normal) Range: 0.0-0.8 Comments: Negative <0.9 Equivocal 0.9 - 1.0 Positive >1.0 FT3 2.6 pg/mL (Normal) Range: 2.18-3.98 5:28 T4F 1.27 ng/dL (Normal) Range: 0.76-1.46 5:28 TPO 1000 {IU/mL} Range: 0-34 5:28 (Abnormal) Comments: Results confirmed ondilution.Performed at: [facility] [id number] Director: Omer Stout PhD, Phone: [phone] TSH 0.90 {uIU/mL} Range: 0.358-3.74 5:28 (Normal) :59 Urinalysis, Office (42625) UA - BILIRUBIN Negative (Normal) UA - BLOOD Hemolyzed Trace (Normal) UA - GLUCOSE Negative (Normal) UA - KETONES Negative mg/dL (Normal) UA - LEUKOCYTE ESTERASE Negative (Normal) UA - NITRITE Negative (Normal) UA - PH 7.0 (Normal) UA - PROTEIN Negative mg/dL (Normal) UA - SPECIFIC GRAVITY 1.010 (Normal) URINE UROBILINGN SPRING TIMED Normal mg/dL (Normal) 9-Wsz-764376:11 ARELY CULTURE-OTHER (39587) Comments: PATIENT NOT FASTINGPERFORMED BY: [facility] [id number] Information: SRC:THRT [id number] Result 1 RRF (Normal) Comments: Routine respiratory kaylene Upper Respiratory Culture Final report (Normal) 6-Dlt-328619:58 Rapid Strep Test, Office (64566) Rapid Strep Test, Office Negative (Normal) :47 Urinalysis, Office (96218) UA - BILIRUBIN Negative (Normal) UA - BLOOD Hemolyzed Trace (Normal) UA - GLUCOSE Negative (Normal) UA - KETONES Negative mg/dL (Normal) UA - LEUKOCYTE ESTERASE Negative (Normal) UA - NITRITE Negative (Normal) UA - PH 6.0 (Normal) UA - PROTEIN Negative mg/dL (Normal) UA - SPECIFIC GRAVITY 1.010 (Normal) URINE UROBILINGN SPRING TIMED Normal mg/dL (Normal) 7-Kxm-676324:11 URINE ARELY CULTURE (SPRING Comments: PATIENT NOT FASTINGPERFORMED BY: [facility] [id number] [facility] [id number] Information: SRC:UR [id number] COL COUNT) ([id number]) Result 1 MUG (Normal) Comments: Mixed urogenital Colonies/mL Urine Final report (Normal) Culture,Comprehensive 82-Mun-838053:1 ISAIAS 8.59 ug/dL (Normal) Comments: COMMENTS: FAX RESULTS TO DR. BROWN - IVT DRAW 0 Range: 3.09-22.40 Comments: Adult (AM) 4.30 - 22.40 ug/dL Adult (PM) 3.09 - 16.66 ug/dL :40 ISAIAS 10.40 ug/dL (Normal) Comments: COMMENTS: FAX RESULTS TO DR. KEVIN HARTMAN DRAW Range: 3.09-22.40 Comments: Adult (AM) 4.30 - 22.40 ug/dL Adult (PM) 3.09 - 16.66 ug/dL :25 B12 786 pg/mL (Normal) Comments: COMMENTS: FAX RESULTS TO DR. KEVIN HARTMAN DRAW Range: 211-946 :25 BMP Comments: COMMENTS: FAX RESULTS TO DR. KEVIN HARTMAN DRAW GAP 4 (Abnormal) Range: 5-15 CO2 29.0 mmol/L (Normal) Range: 21.0-32.0 CL 107 mmol/L (Normal) Range: 98-107 K 3.8 mmol/L (Normal) Range: 3.5-5.1 NA 140 mmol/L (Normal) Range: 136-145 CA 8.7 mg/dL (Normal) Range: 8.5-10.1 BC 11.4 {RATIO} (Normal) Range: 10-20 GFRAA 115 mL/min (Normal) GFR 95 mL/min (Normal) CREAT 0.7 mg/dL (Normal) Range: 0.6-1.0 BUN 8 mg/dL (Normal) Range: 7-18 GLU 83 mg/dL (Normal) Range: 70-110 Comments: RESULTS FAXED TO [phone] 01/13/12 0934 MARINE TOURE.RESULTS FAXED TO [phone] 01/13/12 0959 MARINE TOURE. :25 ISAIAS 13.11 ug/dL (Normal) Comments: COMMENTS: FAX RESULTS TO DR. KEVIN HARTMAN DRAW Range: 3.09-22.40 Comments: Adult (AM) 4.30 - 22.40 ug/dL Adult (PM) 3.09 - 16.66 ug/dL :25 FT3 2.4 pg/mL (Normal) Comments: COMMENTS: FAX RESULTS TO DR. KEVIN HARTMAN DRAW Range: 2.18-3.98 :25 T4F 0.98 ng/dL (Normal) Comments: COMMENTS: FAX RESULTS TO DR. BROWN - IVT DRAW Range: 0.76-1.46 :25 TPO 1232 {IU/mL} (Abnormal) Comments: COMMENTS: FAX RESULTS TO DR. KEVIN Holden IVT DRAW Range: 0-34 Comments: Results confirmed ondilution.Performed at: [address] [id number] Director: Omer Stout PhD, Phone: [phone] :[phone] TSH 5.66 {uIU/mL} (Abnormal) Comments: COMMENTS: FAX RESULTS TO DR. KEVIN Holden IVT DRAW Range: 0.358-3.74 :15 CBCMD Comments: DR BROWN ORDERED LIPID,CMP,TSH,CBCMDDR VELLANKI ORDRED CMP,CBCD PLTM LARGE (Normal) RBCM NORM C+C {NORMAL} (Normal) PE ADEQUATE (Normal) MON 8 % (Normal) Range: 0-10 LYMPH 34 % (Normal) Range: 19-41 PMN 58 % (Normal) Range: 47-70 SANTI 100 (Normal) ANC 4.4 3/uL (Normal) Range: 2.0-7.7 PLT 255 K/mm3 (Normal) Range: 150-450 RDW 13.8 % (Normal) Range: 11.6-14.6 MCHC 32.8 g/dL (Normal) Range: 32-36 MCH 34.2 pg (Abnormal) Range: 27.0-32.0 MCV 104.1 fL (Abnormal) Range: 81-99 HCT 39.8 % (Normal) Range: 37-47 HGB 13.1 g.dL (Normal) Range: 12.0-15.0 RBC 3.82 {M/mm3} (Abnormal) Range: 4.2-5.4 WBC 7.6 K/mm3 (Normal) Range: 4.4-11.0 :15 CMP Comments: DR BROWN ORDERED LIPID,CMP,TSH,CBCMDDR VELLANKI ORDRED CMP,CBCD GAP 7 (Normal) Range: 5-15 CO2 29.0 mmol/L (Normal) Range: 21.0-32.0 CL 98 mmol/L (Normal) Range: 98-107 K 3.9 mmol/L (Normal) Range: 3.5-5.1 NA 134 mmol/L (Abnormal) Range: 136-145 BIT 0.70 mg/dL (Normal) Range: 0.00-1.00 ALT 28 U/L (Normal) Range: 12-78 ALK 54 U/L (Normal) Range: 50-136 AST 17 U/L (Normal) Range: 15-37 CA 8.8 mg/dL (Normal) Range: 8.5-10.1 AG 1.4 {RATIO} (Normal) Range: 0.9-2.4 GLOB 3.1 g/dL (Normal) Range: 2.7-4.2 ALB 4.2 g/dL (Normal) Range: 3.4-5.0 TPROT 7.3 g/dL (Normal) Range: 6.4-8.2 BC 10.0 {RATIO} (Normal) Range: 10-20 GFRAA 115 mL/min (Normal) GFR 95 mL/min (Normal) BUN 7 mg/dL (Normal) Range: 7-18 CREAT 0.7 mg/dL (Normal) Range: 0.6-1.0 GLU 83 mg/dL (Normal) Range: 70-110 :15 LIPID Comments: DR BROWN ORDERED LIPID,CMP,TSH,CBCMDDR TRES AGUDELO CMP,CBCD HDL 66 mg/dL (Normal) Comments: Reference Range HDL <40 mg/dL Low HDL Cholesterol HDL >or= 60 mg/dL High HDL Cholesterol LDL 122 mg/dL (Normal) Range: 0-130 VLDL 21 mg/dL (Normal) Range: 5-40 CHOL 209 mg/dL (Abnormal) Comments: <200 mg/dL Desirable 200-240 mg/dL Borderline >240 mg/dL High Risk TRIG 103 mg/dL (Normal) Comments: Serum Triglycerides Reference Interval Normal <150 mg/dL Borderline high 150 - 199 mg/dL High 200 - 499 mg/dL Very High > or = 500 mg/dL :15 TSH 33.50 {uIU/mL} (Abnormal) Comments: DR BROWN ORDERED LIPID,CMP,TSH,CBCMDDR VELLANKI ORDRED CMP,CBCD Range: 0.358-3.74 7-Fhp-699622:46 MYOCARD PERF STRESS/REST MULT Radiology Report See Note (Normal) Comments: STRESS NUCLEAR STUDY HISTORYThis is a 51-year-old female who presents with syncope. TECHNIQUEThe patient was injected with 10.7 mCi of Tc99m Cardiolite and restingSPECT images were acquired in the horiz ontal long, vertical long, andshort axis views. The patient underwent stress using a Russell protocoland exercised 10 minutes reaching a peak heart rate of 160 which was 93%of maximum predicted. At peak stress the patient was injected with 31.2mCi of Tc99m Cardiolite and stress SPECT images were acquired in thehorizontal long, vertical long, and short axis views. INTERPRETATIONRest images demonstrate a decrease in the anterolateral wall activitywhich is again demonstrated with stress with brightening at end systoleand normal wall motion suggestive of soft tissue/breast attenuation.Infarct cannot c ompletely excluded although less likely. The remainderof the left ventricle appears well perfused both at rest and with stress.There are no significant reversal defects developing with stressdiagnostic for inducible ischemia. Calculated ejection fraction by gatedSPECT imaging was 65% with no regional wall motion abnormalities andbrightening in all segments. IMPRESSION1. Decrease in anterolateral wa ll activity at rest and with stresslikely representing soft tissue/breast attenuation.2. No significant reversal defects developing with stress diagnostic forischemia. Dictated on 11/30/11 1354 by Emiliano adame MD,Jose AntoniorosTranscribed on 11/30/11 1446 by Zuleyma VALLE by Uzair eRtana MD on 12/05/11 0829 Sign by: Uzair Retana MD [id number] BRAIN W/WO CONTRAST Radiology Report See Note (Normal) Comments: PROCEDURE: MRI BRAIN WITH AND WITHOUT CONTRAST REASON FOR EXAM: Female, 51 years old. New onset of headache. Historyof syncopal episode last week. TECHNIQUE: Standardized multiplanar fat and wate r weighted pulsesequences were obtained. 13 ml of Magnevist contrast material wasadministered intravenously for the contrast portion of the examination. COMPARISON: MRI brain -- 10/20/05. FINDINGS:Nor mal size of the ventricles and extra-axial spaces for the patient'jaye.There are a limited number of small white matter hyperintensities,distributed throughout the deep white matter tracts of the cerebr alhemispheres. This is a nonspecific finding with numerous possibleetiologies and may represent chronic white matter ischemic change fromsmall vessel disease. Residua from vascular headaches or head t rauma,postinflammatory infectious demyelinating disease process or nonspecificgliosis cannot be excluded. There is no associated enhancement. Thereisslightly progressive since previous exam of 10/20/05 . Normal bilateral basal ganglia. Normal thalami. There is no extra-axialfluid accumulation. Normal flow voids within the major intracranial circulation suggestingpatency by spin echo criteria. Tg l venous enhancement. There is noenhancing intra-axial or extra-axial abnormality. Normal sella turcica, pituitary gland, infundibular stalk, optic chiasmandhypothalamus. Normal tectal plate and pinea l gland. Normal midbrain, cherelle and medulla. Normal cerebellum. Normal basalcisterns. Normal bilateral temporal bones. Normal bilateral internalauditory canals. No demonstrated orbital abnormality, w ithin the constraints of a routinebrain study. There is minimal mucosal inflammatory disease in theethmoidair cells. Normal calvarium and skull base. There is nasopharyngealadenoidal hypertrophy unch anged since previous exam. 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 Normal visualized upper cervical spine. IMPRESSION: No acute intracranial proce ss, intracranial mass lesion, or intracranialhemorrhage. Minimal to mild supratentorial white matter disease a nonspecific findingpossibly related to chronic white matter ischemic change. Refer to rachele burnett discussion. Findings are slightly progressive since previous examof10/20/05. Minor mucosal inflammatory disease in the ethmoid air cells. Signed:Shahla Soto M.D.November 16, 2011 at 2:50:07 PM [id number] Signed LL/LL If you are the referring physician and would like to consult with theradiologist who provided this interpretation, please contact Shahla Weiss M.D. at . If this radiologist is unavailable, you willbe directed to another radiologist to assist. If you are a patient with a question regarding this report, pleasecontactyour referring physician fabiana fuentes. Professional Interpretation Provided By: Karmasphere, Phone , These documents contain legally protected and confidential healthinformation intended only for the use of the individual or entity namedabove. If you are not the intended recipient, you are hereby notifiedthatany disclosure, copying, distribution, or other use of these documents isstrictly prohibited. If y ou have received this information in error,pleasenotify the sender immediately and arrange for the return or destructionofthese documents. Dictated on 11/16/11 1250 by AIDAN SOTO MDATranscribed on 1456 by ITS IMPORTSign by SHAHLA SOTO MD on 11/16/11 1457 Sign by: SHAHLA SOTO MD [id number] CHEST WITH CONTRAST Radiology Report See Note (Normal) Comments: PROCEDURE: CT CHEST WITH CONTRAST REASON FOR EXAM: Female, 51 years old. Syncopal episode. Elevatedd-dimer. RADIATION DOSAGE (If Supplied By Facility): CTDIvol = ( 15 ) mGy, DLP =(508 ) mGycm TECH NIQUE: High resolution transaxial imaging was performed followingintravenous administration of 100 ml of Isovue 300 contrast material.Multiplanar coronal and sagittal images were reformatted. COMPARIS ON: None. FINDINGS: The lungs are normal. There is no demonstrated pleural abnormality. Normal heart and pericardium. Normal mediastinum. Normal hilar regions. There are no demonstratedpulmonary em boli. Normal enhanced thoracic aorta and visualized greatvessels. There are multi-level degenerative changes of the thoracic spine. There is limited visualization of the liver, spleen, pancreas, adrena lglands, and abdominal aorta without a demonstrated abnormality. IMPRESSION:There is no evidence of pulmonary pulmonary embolism. Signed:Barrera Galeana M.D.November 14, 2011 at 3:11:11 PM [id number] Signed GP/GP If you are the referring physician and would like to consult with theradiologist who provided this interpretation, please contact Luis Angel Quintana at [phone]. If this radiologist is unavailable, youwill be directed to another radiologist to assist. If you are a patient with a question regarding this report, pleasecontactyour referring physician directly. Professional Interpretation Provided By: Sean, Phone , These documents contain legally protected and confidential healthinformation intended only for the use of the individual or entity namedabove. If you are not the intended recipient, you are hereby notifiedthatany disclosure, copying, distribution, or other use of these documents isstrictly prohibited. If you kendall ve received this information in error,pleasenotify the sender immediately and arrange for the return or destructionofthese documents. Dictated on 11/14/11 1430 by Wendy IRVIN,Kimranscribed on 11/15/11 1542 by ITS IMPORTSign by Barrera Galeana MD on 11/15/11 1543 Sign by: Barrera Galeana MD [id number] L/S SPINE,MIN 4 VIEWS Radiology Report See Note (Normal) Comments: PROCEDURE: X-RAY - LUMBAR SPINE REASON FOR EXAM: Female, 51 years old. Low back pain following a fall. TECHNIQUE: Five views of the lumbar spine were obtained. COMPARISON: None FINDINGS:Normal lumbar lordosis. There is no substantial scoliosis. The patientisstatus post L5-S1 intrapedicular screw fixation. T12-L1: There is a mild degree of disk space narrowing. L1-2: Normal disc height. No rmal endplates. Normal alignment of thevertebrae. L2-3: Normal disc height. Normal endplates. Normal alignment of thevertebrae. L3-4: Normal disc height. Normal endplates. Normal alignment of theverte brae. L4-5: There is a moderate degree of disk space narrowing with facetjointosteoarthritis. L5-S1: The patient is status post L5-S1 interpedicular screw fixation.There is also evidence of transverse interbody bone grafting. There is aminimal degree of anterior listhesis of L5 on S1. The soft tissue structures are unremarkable. IMPRESSION:The patient is status-post L5-S1 into the neck with screw f ixation withminimal anterior listhesis. Signed:Barrera Galeana M.D.November 14, 2011 at 3:46:06 PM [id number] Signed GP/GP If you are the referring physician and would like to co nsult with theradiologist who provided this interpretation, please contact Luis Angel Quintana at [phone]. If this radiologist is unavailable, youwill be directed to another radiologist to irene ruiz. If you are a patient with a question regarding this report, pleasecontactyour referring physician directly. Professional Interpretation Provided By: Karmasphere, Phone ,Fax These documents contain legally protected and confidential healthinformation intended only for the use of the individual or entity namedabove. If you are not the intended recipient, you are hereby not ifiedthatany disclosure, copying, distribution, or other use of these documents isstrictly prohibited. If you have received this information in error,pleasenotify the sender immediately and arrange for the return or destructionofthese documents. Dictated on 11/14/11 1015 by Wendy IRVIN,Kimranscribed on 11/15/11 1604 by ITS IMPORTSign by Barrera Galeana MD on 11/15/11 1605 Sign by: Barrera Galeana MD [id number] CERV SPINE,MIN 4 VIEWS Radiology Report See Note (Normal) Comments: PROCEDURE: X-RAY - CERVICAL SPINE REASON FOR EXAM: Female, 51 years old. Neck pain. TECHNIQUE: Six views of the cervical spine were obtained. COMPARISON: None FINDINGS:Normal craniovertebral ju nction. Normal anterior atlantoaxialarticulation. Normal odontoid process. There is straightening of the normal cervical lordosis. Normal vertebralbodies and posterior osseous elements. The patient i s status post anterior fusion at the C4, C5, and C5, [id number] prosthetic disk material. 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 Normal visualized intervertebral neuroforamina. Normal visuali zed soft tissue structures. IMPRESSION:Anterior fusion at the C4-C5 and C6- C7 levels. Signed:Barrera Galeana M.D.November 14, 2011 at 3:47:12 PM [id number] Signed GP/GP If you ar e the referring physician and would like to consult with theradiologist who provided this interpretation, please contact Luis Angel Quintana at [phone]. If this radiologist is unavailable, youw ill be directed to another radiologist to assist. If you are a patient with a question regarding this report, pleasecontactyour referring physician directly. Professional Interpretation Provided By: Ra natarajan, Phone , These documents contain legally protected and confidential healthinformation intended only for the use of the individual or entity namedabove. If you are not the intended recipient, you are hereby notifiedthatany disclosure, copying, distribution, or other use of these documents isstrictly prohibited. If you have received this information in error,please notify the sender immediately and arrange for the return or destructionofthese documents. Dictated on 11/14/11 1006 by Wendy IRVIN,Kimranscribed on 11/14/11 1553 by ITS IMPORTSign by Barrera Galeana MD on 11/14/11 1554 Sign by: Barrera Galeana MD [id number] HIP, MIN 2 VIEWS Radiology Report See Note (Normal) Comments: PROCEDURE: X-RAY - RIGHT HIP REASON FOR EXAM: Female, 51 years old. Hip pain. TECHNIQUE: Two views of the hip. COMPARISON: None. FINDINGS: Normal femoral head, neck, intertrochanteric region an d visualizedproximalfemur. Normal acetabulum. Normal hip joint. Normal visualized superior and inferior pubic rami and ischialtuberosities. IMPRESSION:Normal x- ray examination of the hip. Signed:Emerson Galeana M.D.November 14, 2011 at 3:48:20 PM [id number] Signed GP/GP If you are the referring physician and would like to consult with theradiologist who provided this interpre tation, please contact Luis Angel Quintana at [phone]. If this radiologist is unavailable, youwill be directed to another radiologist to assist. If you are a patient with a question regarding t his report, pleasecontactyour referring physician directly. Professional Interpretation Provided By: Karmasphere, Phone , These documents contain legally protected and conf idential healthinformation intended only for the use of the individual or entity namedabove. If you are not the intended recipient, you are hereby notifiedthatany disclosure, copying, distribution, or o ther use of these documents isstrictly prohibited. If you have received this information in error,pleasenotify the sender immediately and arrange for the return or destructionofthese documents. Dicta kat on 11/14/11 1006 by Wendy IRVIN,Kimranscribed on 11/14/111554 by ITS IMPORTSign by Barrera Galeana MD on 11/14/111555 Sign by: Barrera Galeana MD [id number] CBCMD RBCM NORM C+C {NORMAL} (Normal) PE ADEQUATE (Normal) MON 5 % (Normal) Range: 0-10 LYMPH 34 % (Normal) Range: 19-41 BAND 2 % (Normal) Range: 0-5 PMN 59 % (Normal) Range: 47-70 SANTI 100 (Normal) ANC 3.8 3/uL (Normal) Range: 2.0-7.7 PLT 250 K/mm3 (Normal) Range: 150-450 RDW 13.3 % (Normal) Range: 11.6-14.6 MCHC 33.9 g/dL (Normal) Range: 32-36 MCH 34.1 pg (Abnormal) Range: 27.0-32.0 MCV 100.6 fL (Abnormal) Range: 81-99 HCT 41.4 % (Normal) Range: 37-47 HGB 14.0 g.dL (Normal) Range: 12.0-15.0 RBC 4.12 {M/mm3} (Abnormal) Range: 4.2-5.4 WBC 6.4 K/mm3 (Normal) Range: 4.4-11.0 :52 CMP GAP 6 (Normal) Range: 5-15 CO2 29.0 mmol/L (Normal) Range: 21.0-32.0 CL 102 mmol/L (Normal) Range: 98-107 K 4.5 mmol/L (Normal) Range: 3.5-5.1 NA 137 mmol/L (Normal) Range: 136-145 BIT 0.60 mg/dL (Normal) Range: 0.00-1.00 ALT 40 U/L (Normal) Range: 12-78 ALK 60 U/L (Normal) Range: 50-136 AST 22 U/L (Normal) Range: 15-37 CA 9.5 mg/dL (Normal) Range: 8.5-10.1 AG 1.3 {RATIO} (Normal) Range: 0.9-2.4 GLOB 3.2 g/dL (Normal) Range: 2.7-4.2 ALB 4.2 g/dL (Normal) Range: 3.4-5.0 TPROT 7.4 g/dL (Normal) Range: 6.4-8.2 BC 11.4 {RATIO} (Normal) Range: 10-20 GFRAA 115 mL/min (Normal) GFR 95 mL/min (Normal) CREAT 0.7 mg/dL (Normal) Range: 0.6-1.0 BUN 8 mg/dL (Normal) Range: 7-18 GLU 86 mg/dL (Normal) Range: 70-110 :52 DDIMQ 0.51 {FEUug/mL} Range: 0.22-0.48 (Abnormal) Comments: D-Dimer ELEVATED: Additional studies and clinicalassessments are indicated to conclude diagnosis of:Deep Vein Thrombosis (DVT) or Pulmonary Embolism (PE)RESULTS CALLED TO YOVANNY BROWN;S 11/14/11 ROSIE GIBSON.REPORT READ BACK BY SAME . :52 TSH 1.22 {uIU/mL} (Normal) Range: 0.358-3.74 :00 HIP, MIN 2 VIEWS Radiology Report See Note (Normal) Comments: PROCEDURE: X-RAY - LEFT HIP REASON FOR EXAM: Female, 51 years old. Pain following a fall. TECHNIQUE: Two views of the hip. COMPARISON: None. FINDINGS: Normal femoral head, neck, intertrochanter ic region and visualizedproximalfemur. Normal acetabulum. There is mild articular joint spacenarrowing. Normal visualized superior and inferior pubic rami and ischialtuberosities. IMPRESSION:Degenerat madison changes of the hip. Signed:Barrera Galeana M.D.November 14, 2011 at 3:48:08 PM [id number] Signed GP/GP If you are the referring physician and would like to consult with ld crowley who provided this interpretation, please contact Luis Angel Quintana at [phone]. If this radiologist is unavailable, youwill be directed to another radiologist to assist. If you are a patient with a question regarding this report, pleasecontactyour referring physician directly. Professional Interpretation Provided By: Karmasphere, Phone , These document s contain legally protected and confidential healthinformation intended only for the use of the individual or entity namedabove. If you are not the intended recipient, you are hereby notifiedthatany dis closure, copying, distribution, or other use of these documents isstrictly prohibited. If you have received this information in error,pleasenotify the sender immediately and arrange for the return or de structionofthese documents. Dictated on 11/14/11 1014 by Kim Galeana MDranscribed on 11/15/11 1607 by ITS IMPORTSign by Barrera Galeana MD on 11/15/11 1608 Sign by: Barrera Galeana MD [id number] JACQUI Comments: DR BROWN ORDERED LIPID TSH CMPDR VELLANCHING ORDERED CMP CBCD DNA JACQUI CHERIE SCL-70 SSA/SSBENA ANTICENTROMERE taANA 45 AU/mL (Normal) [id number] ANEX Comments: DR BROWN ORDERED LIPID TSH CMPDR VELLANCHING ORDERED CMP CBCD DNA JACQUI CHERIE SCL-70 SSA/SSBENA ANTICENTROMERE taANA COMMENT (Normal) Comments: TESTING INTERPRETATIONSPOSITIVE: > 120EQUIVOCAL: 100 - 120NEGATIVE: < 100 taRNP 29 AU/mL (Normal) taSM 32 AU/mL (Normal) [id number] ANTIJO1 Comments: DR BROWN ORDERED LIPID TSH CMPDR VELLANKI ORDERED CMP CBCD DNA JACQUI CHERIE SCL-70 SSA/SSBENA ANTICENTROMERE taJO1 17 AU/mL (Normal) [id number] CBCD ANC 3.9 3/uL (Normal) Range: 2.0-7.7 B% 0.4 % (Normal) Range: 0-1 E% 0.4 % (Normal) Range: 0-5 M% 8.3 % (Normal) Range: 0-10 L% 27.6 % (Normal) Range: 19-41 N% 63.3 % (Normal) Range: 47-70 MPV 8.2 fL (Normal) Range: 6.5-12.0 PLT 267 K/mm3 (Normal) Range: 150-450 RDW 13.1 % (Normal) Range: 11.6-14.6 MCHC 34.1 g/dL (Normal) Range: 32-36 MCH 33.5 pg (Abnormal) Range: 27.0-32.0 MCV 98.2 fL (Normal) Range: 81-99 HCT 38.0 % (Normal) Range: 37-47 HGB 12.9 g.dL (Normal) Range: 12.0-15.0 Comments: Please note: Revised HEMOGLOBIN REFERENCE RANGES Reference ramge effective 09/28/11.Please note: Revised HEMOGLOBIN REFERENCE RANGES Reference ramge effective 09/28/11. RBC 3.87 {M/mm3} (Abnormal) Range: 4.2-5.4 WBC 6.2 K/mm3 (Normal) Range: 4.4-11.0 [id number] CENTB Comments: DR BROWN ORDERED LIPID TSH CMPDR VELLANKI ORDERED CMP CBCD DNA JACQUI CHERIE SCL-70 SSA/SSBENA ANTICENTROMERE taCENTB 6 AU/mL (Normal) [id number] CMP Comments: DR BROWN ORDERED LIPID TSH CMPDR VELLANKI ORDERED CMP CBCD DNA JACQUI CHERIE SCL-70 SSA/SSBENA ANTICENTROMERE GAP 7 (Normal) Range: 5-15 CO2 28.0 mmol/L (Normal) Range: 21.0-32.0 CL 102 mmol/L (Normal) Range: 98-107 K 4.3 mmol/L (Normal) Range: 3.5-5.1 NA 137 mmol/L (Normal) Range: 136-145 BIT 0.60 mg/dL (Normal) Range: 0.00-1.00 ALT 29 U/L (Normal) Range: 12-78 ALK 43 U/L (Abnormal) Range: 50-136 AST 18 U/L (Normal) Range: 15-37 CA 8.8 mg/dL (Normal) Range: 8.5-10.1 AG 1.2 {RATIO} (Normal) Range: 0.9-2.4 GLOB 3.4 g/dL (Normal) Range: 2.7-4.2 ALB 4.2 g/dL (Normal) Range: 3.4-5.0 TPROT 7.6 g/dL (Normal) Range: 6.4-8.2 BC 8.6 {RATIO} (Abnormal) Range: 10-20 GFRAA 115 mL/min (Normal) GFR 95 mL/min (Normal) CREAT 0.7 mg/dL (Normal) Range: 0.6-1.0 BUN 6 mg/dL (Abnormal) Range: 7-18 GLU 94 mg/dL (Normal) Range: 70-110 [id number] DNAAB Comments: DR BROWN ORDERED LIPID TSH CMPDR ANYLANCHING ORDERED CMP CBCD DNA JACQUI CHERIE SCL-70 SSA/SSBENA ANTICENTROMERE tadsDNA 5 {IU/mL} (Normal) [id number] LIPID Comments: DR BROWN ORDERED LIPID TSH CMPDR VELLANKI ORDERED CMP CBCD DNA JACQUI CHERIE SCL-70 SSA/SSBENA ANTICENTROMERE VLDL 13 mg/dL (Normal) Range: 5-40 LDL 139 mg/dL (Abnormal) Range: 0-130 HDL 80 mg/dL (Normal) Comments: Reference Range HDL <40 mg/dL Low HDL Cholesterol HDL >or= 60 mg/dL High HDL Cholesterol TRIG 63 mg/dL (Normal) Comments: Serum Triglycerides Reference Interval Normal <150 mg/dL Borderline high 150 - 199 mg/dL High 200 - 499 mg/dL Very High > or = 500 mg/dL CHOL 232 mg/dL (Abnormal) Comments: <200 mg/dL Desirable 200-240 mg/dL Borderline >240 mg/dL High Risk [id number] SCL70 Comments: DR BROWN ORDERED LIPID TSH CMPDR VELLANKI ORDERED CMP CBCD DNA JACQUI CHERIE SCL-70 SSA/SSBENA ANTICENTROMERE taSCL70 45 AU/mL (Normal) [id number] SSA Comments: DR BROWN ORDERED LIPID TSH CMPDR VELLANKI ORDERED CMP CBCD DNA JACQUI CHERIE SCL-70 SSA/SSBENA ANTICENTROMERE taSSA 31 AU/mL (Normal) [id number] SSB Comments: DR BROWN ORDERED LIPID TSH CMPDR VELLANKI ORDERED CMP CBCD DNA JACQUI CHERIE SCL-70 SSA/SSBENA ANTICENTROMERE taSSB 34 AU/mL (Normal) [id number] TSH 11.70 {uIU/mL} (Abnormal) Comments: DR BROWN ORDERED LIPID TSH CMPDR VELLANKI ORDERED CMP CBCD DNA JACQUI CHERIE SCL-70 SSA/SSBENA ANTICENTROMERE Range: 0.358-3.74 [id number] ESOPHAGUS ONLY Radiology Report See Note (Normal) Comments: PROCEDURE: X-RAY - ESOPHAGUS (BARIUM SWALLOW) WITH FLUOROSCOPY REASON FOR EXAM: Female, 51 years old. Dysphagia. TECHNIQUE: Multiple views of the esophagus were obtained followingswallowing of ba rium. COMPARISON: None. FINDINGS:There is no demonstrated esophageal foreign body. There is nodemonstratedstricture or mucosal abnormality. Normal gastroesophageal junction,without a demonstrated hi atal hernia. The patient ingested a 12 mmtabletof barium without any difficulty . Normal visualized aortic arch and descending thoracic aorta. Normalvisualized pulmonary parenchyma. Normal visualized osseous structures of the thorax. IMPRESSION:Normal plain film x-ray examination (barium swallow) of the esophagus. Signed:Barrera Galeana M.D.September 13, 2011 at 9:19:02 AM [id number] ly Signed GP/GP If you are the referring physician and would like to consult with theradiologist who provided this interpretation, please contact Luis Angel Quintana at [phone]. If this radiolo gist is unavailable, youwill be directed to another radiologist to assist. If you are a patient with a question regarding this report, pleasecontactyour referring physician directly. Professional Interp retation Provided By: Karmasphere, Phone , Dictated on 09/13/11 0834 by Wendy IRVIN,AcriTonioranscribed on 09/13/11 0945 by ITS IMPORTSign by Wendy IRVIN,Barrera on 09/13/11 0946 Sign by: Wendy IRVIN,Barrera :47 CBCMD RBCM NORM C+C {NORMAL} (Normal) PE ADEQUATE (Normal) EOS 3 % (Normal) Range: 0-5 MON 4 % (Normal) Range: 0-10 LYMPH 26 % (Normal) Range: 19-41 BAND 1 % (Normal) Range: 0-5 PMN 66 % (Normal) Range: 47-70 SANTI 100 (Normal) ANC 4.0 3/uL (Normal) Range: 2.0-7.7 PLT 254 K/mm3 (Normal) Range: 150-450 RDW 13.8 % (Normal) Range: 11.6-14.6 MCHC 34.8 g/dL (Normal) Range: 32-36 MCH 34.1 pg (Abnormal) Range: 27.0-32.0 MCV 98.1 fL (Normal) Range: 81-99 HCT 38.1 % (Normal) Range: 37-47 HGB 13.2 g/dL (Normal) Range: 12.0-16.0 RBC 3.88 {M/mm3} (Abnormal) Range: 4.2-5.4 WBC 6.1 K/mm3 (Normal) Range: 4.4-11.0 :47 CMP GAP 6 (Normal) Range: 5-15 CO2 30.0 mmol/L (Normal) Range: 21.0-32.0 CL 99 mmol/L (Normal) Range: 98-107 K 4.2 mmol/L (Normal) Range: 3.5-5.1 NA 135 mmol/L (Abnormal) Range: 136-145 BIT 0.90 mg/dL (Normal) Range: 0.00-1.00 ALT 32 U/L (Normal) Range: 12-78 ALK 54 U/L (Normal) Range: 50-136 AST 16 U/L (Normal) Range: 15-37 CA 8.5 mg/dL (Normal) Range: 8.5-10.1 AG 1.3 {RATIO} (Normal) Range: 0.9-2.4 GLOB 3.2 g/dL (Normal) Range: 2.7-4.2 ALB 4.3 g/dL (Normal) Range: 3.4-5.0 TPROT 7.5 g/dL (Normal) Range: 6.4-8.2 BC 7.1 {RATIO} (Abnormal) Range: 10-20 GFRAA 115 mL/min (Normal) GFR 95 mL/min (Normal) CREAT 0.7 mg/dL (Normal) Range: 0.6-1.0 BUN 5 mg/dL (Abnormal) Range: 7-18 GLU 82 mg/dL (Normal) Range: 70-110 :47 FT3 2.0 pg/mL (Abnormal) Range: 2.18-3.98 :47 LIPID VLDL 14 mg/dL (Normal) Range: 5-40 LDL 202 mg/dL (Abnormal) Range: 0-130 HDL 74 mg/dL (Normal) Comments: Reference Range HDL <40 mg/dL Low HDL Cholesterol HDL >or= 60 mg/dL High HDL Cholesterol TRIG 68 mg/dL (Normal) Comments: Serum Triglycerides Reference Interval Normal <150 mg/dL Borderline high 150 - 199 mg/dL High 200 - 499 mg/dL Very High > or = 500 mg/dL CHOL 290 mg/dL (Abnormal) Comments: <200 mg/dL Desirable 200-240 mg/dL Borderline >240 mg/dL High Risk :47 T4F 0.79 ng/dL (Normal) Range: 0.76-1.46 :47 TSH 26.20 {uIU/mL} (Abnormal) Range: 0.358-3.74 :01 CHEST, PA AND LATERAL Radiology Report See Note (Normal) Comments: PROCEDURE: X-RAY CHEST REASON FOR EXAM: Female, 50 years old. Cough and chest congestion. TECHNIQUE: PA and lateral views of the chest. COMPARISON: Comparison is made with prior amari dy dated May. FINDINGS: The lungs are hyper expanded, with flattening of the hemidiaphragms. Thepreviously seen right lower lobe infiltrate has cleared. There isevidenceof calcified old granulomatous d isease. There is no demonstrated pleuralabnormality. Normal heart and pericardium. Normal mediastinum and sandra. Normal visualized pulmonary arteries.Normalvisualized aortic arch and descending thoraci c aorta. Normal visualized thoracic spine. Normal visualized ribs, clavicles, andshoulders. There is no demonstrated abnormality of the visualized soft tissuestructures of the upper abdomen. IMPRESSION :Hyperinflation.The previously seen right lower lobe infiltrate has cleared. Signed:Barrera Galeana M.D.June 28, 2011 at 2:29:02 PM EDTElectronically Signed GP/GP Professional Interpretation Provide d By: [facility], , To consult with a radiologist regarding this report, please call our [id number] line @ Dictated on 03/10 1331 by Wendy IRVIN,Kimranscribed on 06/28/11 1852 by ITS IMPORTSign by Barrera Galeana MD on 06/28/111852 Sign by: Barrera Galeana MD [id number] THYROID Radiology Report See Note (Normal) Comments: PROCEDURE: THYROID ULTRASOUND REASON FOR EXAM: Female, 50 years old. Nodule. TECHNIQUE: Ultrasound evaluation of the thyroid was performed withreal-time ultrasonography and static grayscale imagi ng. COMPARISON:1. Cervical spine series, March 08, 2011. (No report is available forreview at this time.)2. Cervical spine CT, July 20, 2010. (No report is available for reviewatthis time.)3. Thyroi d ultrasound, December 28, 2009.4. Contrast-enhanced neck CT, May 15, 2009. (No report is availableforreview at this time.) FINDINGS: RIGHT LOBE: Normal size of the right lobe of the thyroid. The ri ghtlobeof the thyroid gland measures 3.3 x 1.1 x 1.5 cm. There is aheterogeneousechotexture with normal echogenicity. There are no demonstrated solid,cystic or complex lesions. LEFT LOBE: Normal size of the left lobe of the thyroid. The left lobeofthe thyroid gland measures 2.9 x 1.2 x 1.3 cm. There is a heterogeneousechotexture with normal echogenicity. A hypoechoic, cystic 6 x 6 x 5 mmlesion i s present within the interpolar region of the left lobe. Itdemonstrates no hypervascularity. ISTHMUS: The isthmus measures 0.2 cm. No significant change has occurred in comparison with the [facility] riorstudy. IMPRESSION:1. These size of the thyroid gland is stable.2. 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 Signed:John Spencer M.D.June 24, 2011 at 4:51:02 PM EDTElectronically Signed DL/DL Professional Interpretation Provided By: [facility], , To consult with a radiologist regarding t his report, please call our [id number] line @ Dictated on 06/24/11 1013 by John Spencer MDTranscribed on 06/24/11 1655 by ITS IMPORTSign by John Spencer MD on 06/24/111655 Sign by: John Spencer MD [id number]-[id number]:30 BILAT SCRN DIGITAL & CAD Radiology Report See Note (Normal) Comments: MAMMOGRAPHY - BILATERAL SCREENING REASON FOR EXAM: Female, 50 years old. Routine annual screeningexamination. PERTINENT HISTORY: Mother with breast cancer. TECHNIQUE: Digital examinat ion. Mediol ateral oblique (MLO) andcraniocaudad (CC) views of both breasts were obtained. CAD: CAD wasperformed on this study. COMPARISON: Comparison is made with prior examination dated May. FINDINGS: The breast composition is composed of scattered fibroglandular densities. There are no dominant masses or suspicious calcifications. Astereotactictissue clip is seen in the upper outer aspect of the le ft breast . No other significant abnormalities are identified. There has been nosignificant change since the prior study. IMPRESSION:Stable bilateral screening mammogram. Yearly follow-up recommended. (A) ASSESSMENT CATEGORY:BIRADS Category 2: Benign finding(s). A letter regarding these resultswill be sent to the patient by the facility within 30 days. Approximately 10% of breast cancers are not detected by mammography. Anormal mammogram should not delay biopsy of a clinically suspiciousabnormality. Signed:Barrera Galeana M.D.June 24, 2011 at 10:21:02 AM EDTElectronically Signed GP/GP Professional Interpretation Provided By: [facility], , To consult with a radiologist regarding this report, please call our [id number] line @ Dictated on 06/24/11 0945 by Wendy IRVIN,Kimranscribed on 06/24/11 1025 by ITS IMPORTSign by Barrera Galeana MD on 06/24/11 1026 Sign by: Barrera Galeana MD [id number]: CUT See Note (Normal) Comments: CULTURE OF TOUNG AND THROAT 11 Comments: 1+ YEAST ISOLATED No beta-hemolytic streptococcus isolated. [id number] CBCMD MACRO 1+ (Normal) RBCM N CHROM {NORMAL} (Normal) BAS 1 % (Normal) Range: 0-1 PE ADEQUATE (Normal) MON 7 % (Normal) Range: 0-10 LYMPH 22 % (Normal) Range: 19-41 BAND 2 % (Normal) Range: 0-5 PMN 68 % (Normal) Range: 47-70 SANTI 100 (Normal) ANC 7.7 3/uL (Normal) Range: 2.0-7.7 PLT 318 K/mm3 (Normal) Range: 150-450 RDW 13.7 % (Normal) Range: 11.6-14.6 MCHC 33.5 g/dL (Normal) Range: 32-36 MCH 33.5 pg (Abnormal) Range: 27.0-32.0 MCV 100.1 fL (Abnormal) Range: 81-99 HCT 40.4 % (Normal) Range: 37-47 HGB 13.5 g/dL (Normal) Range: 12.0-16.0 RBC 4.03 {M/mm3} (Abnormal) Range: 4.2-5.4 WBC 10.7 K/mm3 (Normal) Range: 4.4-11.0 :46 CMP GAP 9 (Normal) Range: 5-15 CO2 27.0 mmol/L (Normal) Range: 21.0-32.0 CL 103 mmol/L (Normal) Range: 98-107 K 3.9 mmol/L (Normal) Range: 3.5-5.1 NA 139 mmol/L (Normal) Range: 136-145 BIT 0.40 mg/dL (Normal) Range: 0.00-1.00 ALT 29 U/L (Normal) Range: 12-78 ALK 73 U/L (Normal) Range: 50-136 AST 10 U/L (Abnormal) Range: 15-37 CA 9.5 mg/dL (Normal) Range: 8.5-10.1 AG 1.0 {RATIO} (Normal) Range: 0.9-2.4 GLOB 4.2 g/dL (Normal) Range: 2.7-4.2 ALB 4.0 g/dL (Normal) Range: 3.4-5.0 TPROT 8.2 g/dL (Normal) Range: 6.4-8.2 BC 6.7 {RATIO} (Abnormal) Range: 10-20 GFRAA 137 mL/min (Normal) GFR 113 mL/min (Normal) CREAT 0.6 mg/dL (Normal) Range: 0.6-1.0 BUN 4 mg/dL (Abnormal) Range: 7-18 GLU 94 mg/dL (Normal) Range: 70-110 :46 [facility] tEBINT Comment (Normal) Comments: EBV Interpretation Chart . Interpretation VCA-IgM EA-IgG VCA-IgG NA-ABS . Susceptible - - - - Acute Infection + +or- +or- - Convalescent Phase +or- +or- + + Chronic or Reactivated - + + +or- Old Infection - - +or- + + Antibody Pr esent - Antibody AbsentPerformed at: - [facility] [address] [id number] Director: Iraida Willingham MD, Phone: [phone] EBNA > 8.0 {AI} (Abnormal) Range: 0.0-0.8 Comments: Negative <0.9 Equivocal 0.9 - 1.0 Positive >1.0 EBVG > 8.0 {AI} (Abnormal) Range: 0.0-0.8 Comments: Negative <0.9 Equivocal 0.9 - 1.0 Positive >1.0 EBEAG < 0.2 (Normal) Comments: Negative <0.9 Equivocal 0.9 - 1.0 Positive >1.0 EBVM < 0.2 {AI} (Normal) Range: 0.0-0.8 Comments: Negative <0.9 Equivocal 0.9 - 1.0 Positive >1.0 [id number] CHEST, PA AND LATERAL Radiology Report See Note (Normal) Comments: PROCEDURE: X-RAY CHEST REASON FOR EXAM: Female, 50 years old. Possible pneumonia. TECHNIQUE: PA and lateral views of the chest. COMPARISON: Comparison is made with prior study dated July 13 1. FINDINGS: The lungs are expanded. At this time, there is a focal infiltrate in theanterior segment of the right lower lobe. This also evidence ofcalcifiedold granulomatous disease. There is no dem onstrated pleural abnormality. Normal heart and pericardium. Normal mediastinum and sandra. Normal visualized pulmonary arteries.Normalvisualized aortic arch and descending thoracic aorta. Normal visuali zed thoracic spine. Normal visualized ribs, clavicles, andshoulders. There is no demonstrated abnormality of the visualized soft tissuestructures of the upper abdomen. IMPRESSION:Early right lower lobe infiltrate. Follow-up is suggested. To consult with a radiologist regarding this report, please call our [id number] line @ Dictated on 06/07/11 1321 by Wendy IRVIN,Tomasa bed on 06/07/11 1408 by ITS IMPORTSign by Wendy IRVIN,Barrera on 06/07/11 1409 Sign by: Barrera Galeana MD CUT See Note (Normal) Comments: #1- PRESUMPTIVE FRANK ALBICANSNo beta-hemolytic streptococcus isolated. AMOUNT GROWTH RARE ORGANISM 1: YEAST 4:09 H.PYLORI [id number] < 0.9 U/mL (Normal) Range: 0.0-0.8 1:47 Comments: Negative <0.9 Indeterminate 0.9 - 1.0 Positive >1.0Performed at: CB - [facility] [address] [id number] Director: Iraida Willingham MD, Phone: [phone] [id number]:34 CBCD,SMEAR DIFF MACROCYTE 1+ (Normal) RED CELL MORPH N CHROM {NORMAL} (Normal) PLT EST SeeNote (Normal) Comments: Result: ADEQUATE EOS 1 % (Normal) Range: 0-5 MONOCYTE 5 % (Normal) Range: 0-10 LYMPH 29 % (Normal) Range: 19-41 SEGS 65 % (Normal) Range: 47-70 CELLS COUNTED 100 (Normal) ABSOLUTE NEUT 4.2 3/uL (Normal) Range: 2.0-7.7 PLT 261 K/mm3 (Normal) Range: 150-450 RDW 13.7 % (Normal) Range: 11.6-14.6 MCHC 34.3 g/dL (Normal) Range: 32-36 MCH 34.6 pg (Abnormal) Range: 27.0-32.0 MCV 100.9 fL (Abnormal) Range: 81-99 HCT 38.2 % (Normal) Range: 37-47 HGB 13.1 g/dL (Normal) Range: 12.0-16.0 RBC 3.78 {M/mm3} (Abnormal) Range: 4.2-5.4 WBC 7.6 K/mm3 (Normal) Range: 4.4-11.0 [id number]:34 COMP METABOLIC GAP 8 (Normal) Range: 5-15 CO2 30.0 mmol/L (Normal) Range: 21.0-32.0 CL 98 mmol/L (Normal) Range: 98-107 K 4.3 mmol/L (Normal) Range: 3.5-5.1 NA 136 mmol/L (Normal) Range: 136-145 T BILI 0.60 mg/dL (Normal) Range: 0.00-1.00 ALT 23 U/L (Normal) Range: 12-78 ALK P 52 U/L (Normal) Range: 50-136 AST 15 U/L (Normal) Range: 15-37 CA 9.6 mg/dL (Normal) Range: 8.5-10.1 A/G 1.7 {RATIO} (Normal) Range: 0.9-2.4 GLOB 2.7 g/dL (Normal) Range: 2.7-4.2 ALB 4.6 g/dL (Normal) Range: 3.4-5.0 T PROT 7.3 g/dL (Normal) Range: 6.4-8.2 BUN/CRE 11.4 {RATIO} (Normal) Range: 10-20 EST GFR - AA 115 mL/min (Normal) EST GFR 95 mL/min (Normal) CREAT,SERUM 0.7 mg/dL (Normal) Range: 0.6-1.0 BUN 8 mg/dL (Normal) Range: 7-18 GLU 83 mg/dL (Normal) Range: 70-110 [id number]:20 Urinalysis, Office ([id number]) UA - BILIRUBIN Negative (Normal) UA - BLOOD Hemolyzed Trace (Normal) UA - GLUCOSE Negative (Normal) UA - KETONES Negative mg/dL (Normal) UA - LEUKOCYTE ESTERASE Negative (Normal) UA - NITRITE Negative (Normal) UA - PH 7.0 (Normal) UA - PROTEIN Negative mg/dL (Normal) UA - SPECIFIC GRAVITY 1.010 (Normal) URINE UROBILINGN SPRING TIMED Normal mg/dL (Normal) 03-Jan-20110:00 CULTURE, URINE URINE CULTURE Culture exhibits no growth. (Normal) [id number]-[id number]:07 CULTURE, THROAT See Note (Normal) Comments: AMOUNT GROWTH 2+ AMOUNT GROWTH 3+ ORGANISM 1: SERRATIA MARCESCENSORGANISM 2: STREPTOCOCCUS PNEUMONIAE SERRATIA MARCESCENS: REACTION AMIKACI N s <=2 S CEFAZOLIN $ >=64 R CEFEPIME $$ <=1 S CEFOXITIN $ 16 I CEFTAZIDIME (NF) $ <=1 S CEFTRIAXONE $ <=1 S CIPROFLOXACIN GN (IV/NF) $$ <=0.25 S ERTAPENIM $ $ <=0.5 S GENTAMICIN GN $ <=1 S IMIPENEM $$$ 2 S LEVOFLOXACIN $ <=0.12 S PIPERACILLIN/T AZOBACTAM $$$ <=4 S TIGECYCLINE (NF) $$$ 1 S TRIMETHOPRIM/SULFAMETHOXAZO $ <=20 S STREPTOCOCCUS PNEUMONIAE: REAC TION AMOXICILLIN (NF)$ <=0.06 S CEFOTAXIME (meningitis)(NF) $ 0.12 S CEFOTAXIME (other dx) (NF) $ 0.12 S CEFTRIAXONE (meningitis) $$ 0. 12 S CEFTRIAXONE (other dx) $ 0.12 S CHLORAMPHENICOL $$ <=2 S ERTAPENIM $$ <=0.5 S ERYTHROMYCIN NON-EC $$ >=1 R LEVOFLOXACIN $ 1 S LINEZOLID $$$ <=2 S MEROPENEM (NF) $ <=0.06 S MOXIFLOXIC IN (NF) $$ <=0.25 S OFLOXACIN $$ 2 S TELITHROMYCIN (NF) $ <=0.25 S TETRACYCLINE NON-EC $ >=16 R TRIMETHOPRIM/SULFAMETHOXAZ $ <=10 S VANCOMYCIN $ <=1 S [id number]:30 Rapid Strep Test, Office ([id number]) Rapid Strep Test, Office Negative (Normal) 25-Phe-[id number]:52 SPINE,CERVICAL WITHOUT CONTRAS Radiology Report See Note (Normal) Comments: CLINICAL:Female, 50 years old. The patient presents with a history of cervicalradiculopathy. CT CERVICAL SPINE WITHOUT CONTRAST TECHNIQUE:High resolution transaxial imaging was performed without contra stmaterial.Sagittal and coronal images were reconstructed. COMPARISON:None FINDINGS:Normal craniovertebral junction. Normal anterior atlantoaxialarticulation. Normal odontoid process. There is straigh tening of the normal cervical lordosis. Normal vertebralbodies and posterior osseous elements. C2-3: Normal endplates. Normal disc height and morphology. Normalbilateral uncovertebral and apophyseal joints. Normal central canal andintervertebral neuroforamina. C3-4: Normal endplates. Normal disc height and morphology. Normalbilateral uncovertebral and apophyseal joints. Normal central canal and intervertebral neuroforamina. C4-5: Normal endplates. There is a moderate degree of disk spacenarrowing with disk degeneration. There is a mild degree of facet jointosteoarthritis. Normal bilateral uncovertebral and apophyseal joints.Normal central canal and intervertebral neuroforamina. C5-6: There is a moderate degree of disk space narrowing. There is amilddegree of retrolisthesis of C5 on C6. There is a mild degree of diffuseposterior disk bulge causing deformity of the thecal sac. This is worseonthe right side. There is narrowing of the right intravertebral neuralforamen. C6-7: There i s a mild degree of disk space narrowing. There is evidenceof posterior osteophyte formation. This also evidence of a moderate-sizeddiffuse disk bulge. This causes a mild degree of the deformity of th ecentral portion of the thecal sac. There is also evidence of facet jointosteoarthritis. C7-T1: Normal endplates. Normal disc height and morphology. Normalbilateral uncovertebral and apophyseal join ts. Normal central canal andintervertebral neuroforamina. Normal visualized soft tissue structures. IMPRESSION:There is evidence of degenerative changes at the C5-C6 and C6-C7 levels. Dictated on 20/01 1357 by Kim Galeana MDranscribed on 07/21/10 0101 by ITS IMPORTSign by Barrera Galeana MD on 07/21/10 010 Sign by: Barrera Galeana MD [id number]:22 CERV SPINE,MIN 4 VIEWS Radiology Report See Note (Normal) Comments: CLINICAL:Female, 49 years old. Neck pain. X-RAY EXAMINATION - CERVICAL SPINE TECHNIQUE:Five views of the cervical spine were obtained. COMPARISON:None FINDINGS:Normal craniovertebral junction. Normal anterior atlantoaxialarticulation. Normal odontoid process. There is straightening of the normal cervical lordosis. Normal vertebralbodies and posterior osseous elements. The transverse processes of I1wvzftewvntgs. There is multi-level degenerative disc space narrowing with endplatespondylosis. There is multi-level osseous foraminal stenosis at H9-[id number]-W2, bilateral. Normal visualized soft tiss ue structures. IMPRESSION:Multilevel degenerative disc disease with osseous foraminal stenosis.Prominent transverse processes of C7 may cause thoracic outlet syndrome.Straightening of the normal cervica l lordosis. Dictated on 07/13/10 1536 by MANJINDER HOLLIDAY MDOTranscribed on 07/14/10 1209 by ITS IMPORTSign by SWATI HOLLIDAY MD on 07/14/10 1210 Sign by: SWATI HOLLIDAY MD [id number]-[id number]:00 CHEST, PA AND LATERAL Radiology Report See Note (Normal) Comments: CLINICAL:Female, 49 years old. Chest pain. X-RAY EXAMINATION - CHEST TECHNIQUE:PA and lateral views of the chest. COMPARISON:August 27, 2009 FINDINGS: The lungs are expanded. There are multiple, stable, subcentimeternodulesin the lungs consistent with old granulomatous disease. There is nodemonstrated pleural abnormality. The heart is normal in size and morphology. Normal mediastinum and sandra. Normal visualized pulmonary arteries. Normal visualized aortic arch anddescending thoracic aorta. Normal visualized thoracic spine. IMPRESSION:Old granulomatous disease. Dictated on 07/13/10 1536 by MANJINDER LEE MDOTranscribed on 07/14/10 1304 by ITS IMPORTSign by SWATI HOLLIDAY MD on 07/14/10 1304 Sign by: SWATI HOLLIDAY MD [id number]:35 BILAT SCRN DIGITAL & CAD Radiology Report See Note (Normal) Comments: MAMMOGRAPHY - BILATERAL SCREENING INDICATION:Female, 49 years old. Routine annual screening examination. PERTINENT HISTORY:Mother with breast cancer. TECHNIQUE:Digital examination. Mediolateral obliqu e (MLO) and craniocaudad (CC)views of both breasts were obtained. CAD: CAD was performed on thisstudy. COMPARISON:April 10, 2008 and June 18, 2009 FINDINGS:The breast composition is composed of scat tered fibroglandular densities.There are scattered areas of asymmetric parenchymal density in bothbreasts. There is no dominant or spiculated mass identified. There are no suspicious microcalcification s. No other significant abnormalities are identified. IMPRESSION:Normal bilateral screening mammogram. One year follow-up recommended. (1) ASSESSMENT CATEGORY:BIRADS Category 2: Benign finding(s). A letter regarding these resultswill be sent to the patient by the facility within 30 days. Approximately 10% of breast cancers are not detected by mammography. Anormal mammogram should not delay biopsy of a clinically suspiciousabnormality. Dictated on 06/22/10 0905 by MELISSA LEES MDTranscribed on 06/22/10 2351 by ITS IMPORTSign by MELISSA LEES MD on 06/22/10 2352 Sign by: YOANA IRVINMELISSA :34 DEXA BONE DENSITY STUDY (HP) Radiology Report See Note (Normal) Comments: CLINICAL:Female, 49 years old. The patient is a postmenopausal. EXAMINATION:DUAL ENERGY X-RAY ABSORPTIOMETRY / DEXA. TECHNIQUE:Bone Mineral Density (BMD) measurements of lumbar spine and bi lateralhipsw ere obtained using a [employer] scanner.. COMPARISON:Comparison is made with prior study dated April 10, 2008. FINDINGS: Lumbar Spine (L1- L4): g/cm2 (0.989) / T-score (-1.6) / Z-sc ore (-1.4)Left Femur Total: g/cm2 (0.728) / T-score (-2.2) / Z-score (-1.9)Right Femur Total: g/cm2 (0.774) / T-score (-1.9) / Z-score (-1.5) Since prior study, there has been an improvement o f 7.6% in the bonedensity. IMPRESSION:The patient is considered osteopenic, as outlined above, according toWorldHealth Organization (WHO) criteria. Fracture risk is moderate. Reference Information:The T-score is the number of standard deviations above or below thestandard which is normal for young adults at their peak bone mineraldensity. The World Health Organization (WHO) interprets the T-scores as follows: Above -1 Normal bone densityBetween -1 and -2.5 OsteopeniaEqual to / or below -2.5 Osteoporosis As a practical clinical guideline, osteopenia may be graded as follows:Mild -1 through -1.5Moderate -1.6 through -2.0Severe -2.1 through -2.4 The Z-score is the number of standard deviations above or below age- matchedcontrols. A Z-score of less than -1.5 would be cons idered abnormal. References:1. NIH Osteoporosis and Related Bone Diseases http://www.osteo.org2. International Society for Clinical Densitometry http://www.iscd.org3. National Osteoporosis Foundation http://www.nof.org Dictated on 06/22/10 0942 by Wendy IRVIN,GabrieleTranscribed on 06/22/10 1445 by ITS IMPORTSign by Wendy IRVIN,Barrera on 06/22/10 1445 Sign by: Barrera Galeana MD 3-Ekx-[id number]:14 Rapid Strep Test, Office ([id number]) Rapid Strep Test, Office Negative (Normal) 04-Jun-20100:00 CULTURE, THROAT See Note (Normal) Comments: Normal throat kaylene isolated. No beta-hemolyticstreptococcus isolated. :29 CBCD,SMEAR DIFF Comments: DR. BROWN ORDERED TSH LIPID CMP VITD CBCMDDR. TRES CMP CBCD VITD MACROCYTE 1+ (Normal) RED CELL MORPH N CHROM {NORMAL} (Normal) LYMPH 46 % (Abnormal) Range: 19-41 MONOCYTE 7 % (Normal) Range: 0-10 PLT EST SeeNote (Normal) Comments: Result: ADEQUATE SEGS 47 % (Normal) Range: 47-70 ABSOLUTE NEUT 4.6 3/uL (Normal) Range: 2.0-7.7 CELLS COUNTED 100 (Normal) PLT 268 K/mm3 (Normal) Range: 150-450 RDW 13.9 % (Normal) Range: 11.6-14.6 MCHC 34.2 g/dL (Normal) Range: 32-36 MCH 35.1 pg (Abnormal) Range: 27.0-32.0 MCV 102.4 fL (Abnormal) Range: 81-99 HCT 42.7 % (Normal) Range: 37-47 HGB 14.6 g/dL (Normal) Range: 12.0-16.0 RBC 4.17 {M/mm3} (Abnormal) Range: 4.2-5.4 WBC 7.1 K/mm3 (Normal) Range: 4.4-11.0 :29 COMP METABOLIC Comments: DR. BROWN ORDERED TSH LIPID CMP VITD CBCMDDR. TRES CMP CBCD VITD CL 101 mmol/L (Normal) Range: 98-107 CO2 28.0 mmol/L (Normal) Range: 21.0-32.0 GAP 8 (Normal) Range: 5-15 K 4.1 mmol/L (Normal) Range: 3.5-5.1 NA 137 mmol/L (Normal) Range: 136-145 T BILI 1.00 mg/dL (Normal) Range: 0.00-1.00 ALK P 53 U/L (Normal) Range: 50-136 ALT 34 U/L (Normal) Range: 12-78 AST 15 U/L (Normal) Range: 15-37 CA 9.5 mg/dL (Normal) Range: 8.5-10.1 A/G 1.2 {RATIO} (Normal) Range: 0.9-2.4 ALB 4.2 g/dL (Normal) Range: 3.4-5.0 GLOB 3.4 g/dL (Normal) Range: 2.7-4.2 BUN/CRE 11.7 {RATIO} (Normal) Range: 10-20 EST GFR - AA 138 mL/min (Normal) T PROT 7.6 g/dL (Normal) Range: 6.4-8.2 CREAT,SERUM 0.6 mg/dL (Normal) Range: 0.6-1.0 EST GFR 114 mL/min (Normal) BUN 7 mg/dL (Normal) Range: 7-18 GLU 83 mg/dL (Normal) Range: 70-110 :29 LIPID Comments: DR. BROWN ORDERED TSH LIPID CMP VITD CBCMDDRIfeanyi VILLAFANA CMP CBCD VITD HDL 65 mg/dL (Normal) Comments: Reference Range HDL <40 mg/dL Low HDL Cholesterol HDL >or= 60 mg/dL High HDL Cholesterol LDL 98 mg/dL (Normal) Range: 0-130 VLDL 16 mg/dL (Normal) Range: 5-40 TRIG 79 mg/dL (Normal) Comments: Serum Triglycerides Reference Interval Normal <150 mg/dL Borderline high 150 - 199 mg/dL High 200 - 499 mg/dL Very High > or = 500 mg/dL CHOL 179 mg/dL (Normal) Comments: <200 mg/dL Desirable 200-240 mg/dL Borderline >240 mg/dL High Risk :29 TSH 2.06 {uIU/mL} (Normal) Comments: DR. BROWN ORDERED TSH LIPID CMP VITD CBCMDDRIfeanyi VILLAFANA CMP CBCD VITD Range: 0.358-3.74 :29 VIT D,25 27391 53.4 ng/mL (Normal) Comments: DR. BROWN ORDERED TSH LIPID CMP VITD CBCMDDR. TRES CMP CBCD VITD Range: 32.0-100.0 Comments: Recent studies consider the lower limit of 32.0 ng/mL to ama threshold for optimal health.Fco GARCIA. J Nutr. 2004;135(2):317-22.Performed at: - [facility] [id number] Director: Iraida Willingham MD, Phone: [phone] [id number]-Bmq-[id number]:30 LQD PAP [id number] PAPSMR Comment (Normal) Comments: The Pap smear is a screening test designed to aid in thedetection of premalignant and malignant conditions of theuterine cervix. It is not a diagnostic procedure andshould not be used as the sole means of detecting cervicalcancer. Both false-positive and false-negative reports dooccur. .The HPV DNA reflex criteria were not met with this speci menresult therefore, no HPV testing was performed. .Performed at: - [facility] [id number] Director: Nita Hernandez MD, Phone: [phone] COMM . (Normal) DIAGN Comment (Normal) Comments: NEGATIVE FOR INTRAEPITHELIAL LESION AND MALIGNANCY.CELLULAR CHANGES ASSOCIATED WITH ATROPHY ARE PRESENT.Satisfactory for evaluation.Kiran Gayle, Storage Engineer (ASCP) :41 BONE SCAN WHOLE BODY Radiology Report See Note (Normal) Comments: CLINICAL:49-year-old female with history of diffuse arthralgia. WHOLE BODY RADIONUCLIDE BONE SCINTIGRAPHY COMPARISON:Plain film radiography report-pelvis 01/06/10 FINDINGS:Following the intravenous admi nistration of 24.0 mCi of Tc MDP, wholebodybone images reveal:1. Mild increased radiopharmaceutical concentration is demonstrated intheacromioclavicular compartments of both shoulders and sacrum posteri orlyinthe midline consistent with the presence of degenerative arthrosis.2. The remaining skeletal structures are scintigraphically unremarkablewith normal-appearing renal images and urinary bladder act ivityidentified. IMPRESSION:1. The enhanced tracer uptake defined in the shoulder articulations andsacrum is consistent with the presence of degenerative arthropathy. 2. No other definitive scintigraphi c abnormalities are identified. Dictated on 04/14/10 1016 by Mario OlivoTranscribed on 04/15/101835 by ITS IMPORTSign by Mario Olivo on 04/15/101836 Sign by: Mario Olivo :02 HIP, MIN 2 VIEWS ([place]) Radiology Report See Note (Normal) Comments: Exam Number: [id number] LINICAL:This is a 49-year-old female patient with history of left hip pain. X-RAY EXAMINATION: LEFT HIP TECHNIQUE:Two views of the hip. COMPARISON:None. FINDINGS:Normal femoral he ad, neck, intertrochanteric region and visualized proximal femur. Normal acetabulum. There is evidence of sclerosis along the iliac side of the left sacral iliac joint. Correlation with a bone scan i s suggested. There is mild articular joint space narrowing. Normal visualized superior and inferior pubic rami and ischial tuberosities. Normal visualized soft tissue structures of the hip. IMPRESSION:D egenerative changes, as noted above. Focal sclerosis along the left sacroiliac joint as previously described. Correlation with a bone scan is suggested. Reported By: BARRERA GALEANA :01 PELVIS,1 OR 2 VIEWS ([place]) Radiology Report See Note (Normal) Comments: Exam Number: [id number] LINICAL:This is a 49 year old female patient with history of left hip pain. X-RAY EXAMINATION: PELVIS TECHNIQUE:1 view of the pelvis. COMPARISON:None. FINDINGS:There is evidence o f degenerative changes on the left sacroiliac joint. The patient is status- post L5-S1 interpedicular screw fixation. Normal visualized proximal right femur. Normal right acetabulum. There is mild articu lar joint space narrowing of the right hip. Normal proximal left femur. Normal left acetabulum. There is mild articular joint space narrowing of the left hip. Normal visualized right superior and inferi or pubic rami and ischial tuberosity. Normal visualized left superior and inferior pubic rami and ischial tuberosity. Non-specific bowel gas pattern. Normal visualized soft tissue structures of the bila teral hips. IMPRESSION:Degenerative changes, as noted above. Reported By: BARRERA GALEANA 1-Kav-012925:41 THYROID (HP) Radiology Report See Note (Normal) Comments: Exam Number: [id number] LINICAL:This is a 49-year-old female patient with history of dysphagia. ULTRASOUND THYROID TECHNIQUE:Multiple views were obtained. COMPARISON:None. FINDINGS:The right lobe measure s 3.5 cm in sagittal dimension. It is of heterogeneous echotexture. No focal nodules seen. The left lobe measures 3 cm in sagittal dimension. It is of heterogeneous echotexture. There is a 7 mm x 6 mm x 5 mm hypoechoic solid nodule in the lateral inferior aspect of the left lobe. Normal thyroid isthmus. There is no perithyroid pathology. IMPRESSION:Heterogeneous echotexture of both the right and l eft lobes of the thyroid with a small hypoechoic solid nodule in the left lobe as previously described. Reported By: BARRERA GALEANA : ANTI-CCP [id number] 2 {units} (Normal) Range: 0-19 41 Comments: Negative <20 Weak positive 20 - 39 Moderate positive 40 - 59 Strong positive >59Performed at: [facility] Lab[address] [id number] Director: Eusebio Live MD, Phone: [phone] 55-Lhg-580405:53 JACQUI DIR SEMI-QL JACQUI DIRECT 77 AU/mL (Normal) 69-Qlg-184880:13 ESR SED RATE 5 mm/h (Normal) Range: 0-20 :05 RHEUMATOID FAC < 10.0 {IU/mL} (Normal) :05 C-REACTIVE PROT < 2.90 mg/L (Normal) Range: 0.0-3.0 Comments: C-Reactive Protein (CRP) provides useful information for thediagnosis, therapy and monitoring of inflammatory processesand associated diseases. For the evaluation of Relative Riskfor Cardiovascular Dise ase, a High Sensitivity CRP (HSCRP)should be ordered. :05 CPK TOTAL 49 U/L (Normal) Range: 21-215 :05 COMP METABOLIC ALK P 66 U/L (Normal) Range: 50-136 ALT 28 U/L (Normal) Range: 12-78 CL 105 mmol/L (Normal) Range: 98-107 CO2 29.0 mmol/L (Normal) Range: 21.0-32.0 GAP 9 (Normal) Range: 5-15 K 4.8 mmol/L (Normal) Range: 3.5-5.1 NA 143 mmol/L (Normal) Range: 136-145 T BILI 0.80 mg/dL (Normal) Range: 0.00-1.00 A/G 1.4 {RATIO} (Normal) Range: 0.9-2.4 ALB 4.5 g/dL (Normal) Range: 3.4-5.0 AST 17 U/L (Normal) Range: 15-37 BUN/CRE 11.4 {RATIO} (Normal) Range: 10-20 CA 9.4 mg/dL (Normal) Range: 8.5-10.1 EST GFR - AA 115 mL/min (Normal) GLOB 3.2 g/dL (Normal) Range: 2.7-4.2 T PROT 7.7 g/dL (Normal) Range: 6.4-8.2 BUN 8 mg/dL (Normal) Range: 7-18 CREAT,SERUM 0.7 mg/dL (Normal) Range: 0.6-1.0 EST GFR 95 mL/min (Normal) GLU 88 mg/dL (Normal) Range: 70-110 :27 LIPID VLDL 14 mg/dL (Normal) Range: 5-40 HDL 62 mg/dL (Normal) Comments: Reference Range HDL <40 mg/dL Low HDL Cholesterol HDL >or= 60 mg/dL High HDL Cholesterol LDL 87 mg/dL (Normal) Range: 0-130 TRIG 70 mg/dL (Normal) Comments: Serum Triglycerides Reference Interval Normal <150 mg/dL Borderline high 150 - 199 mg/dL High 200 - 499 mg/dL Very High > or = 500 mg/dL CHOL 163 mg/dL (Normal) Comments: <200 mg/dL Desirable 200-240 mg/dL Borderline >240 mg/dL High Risk :27 LIVER ALB 3.9 g/dL (Normal) Range: 3.4-5.0 ALK P 53 U/L (Normal) Range: 50-136 ALT 21 U/L (Normal) Range: 12-78 AST 11 U/L (Abnormal) Range: 15-37 D BILI 0.17 mg/dL (Normal) Range: 0.00-0.30 T BILI 0.90 mg/dL (Normal) Range: 0.00-1.00 T PROT 6.9 g/dL (Normal) Range: 6.4-8.2 19-Wts-52422:27 TSH 0.61 {uIU/mL} (Normal) Range: 0.358-3.74 93-Xvn-817210:13 CULTURE, URINE URINE CULTURE See Note {CFU/mL} (Normal) Comments: COLONY COUNT 1000-10,000 ORGANISM 1: MIXED GRAM POSITIVE ORGANISMS :13 LIPID HDL 68 mg/dL (Normal) Comments: Reference RangeHDL <40 mg/dL Low HDL CholesterolHDL >or= 60 mg/dL High HDL Cholesterol LDL 81 mg/dL (Normal) Range: 0-130 VLDL 17 mg/dL (Normal) Range: 5-40 CHOL 166 mg/dL (Normal) Comments: <200 mg/dL Julryxopm349-934 mg/dL Borderline>240 mg/dL High Risk TRIG 85 mg/dL (Normal) Comments: Serum Triglycerides Reference IntervalNormal <150 mg/dLBorderline high 150 - 199 mg/dLHigh 200 - 499 mg/ dLVery High > or = 500 mg/dL :13 LIVER ALB 4.3 g/dL (Normal) Range: 3.4-5.0 ALK P 52 U/L (Normal) Range: 50-136 ALT 20 U/L (Normal) Range: 12-78 AST 11 U/L (Abnormal) Range: 15-37 D BILI 0.17 mg/dL (Normal) Range: 0.00-0.30 T BILI 0.80 mg/dL (Normal) Range: 0.00-1.00 T PROT 7.6 g/dL (Normal) Range: 6.4-8.2 08-Snj-306425:13 TSH 0.49 {uIU/mL} (Normal) Range: 0.358-3.74 :13 VIT D,25 72867 63.3 ng/mL (Normal) Range: 32.0-100.0 Comments: Recent studies consider the lower limit of 32.0 ng/mL to ama threshold for optimal health.Fco GARCIA. J Nutr. 2004;135(2):317-22.Performed at: - [place] [id number] Director: Iraida Willingham MD, Phone: [phone] 2-Qwa-453549:57 CHEST, PA AND LATERAL (MT) Radiology Report See Note (Normal) Comments: Exam Number: [id number] X-RAY EXAMINATION: CHEST CLINICAL:This is a 49-year-old female with cough and chest pain. TECHNIQUE:PA and lateral views of the chest were obtained. FINDINGS:No evidence of focal pulmonary infiltrates or effusions. Heart sizeis within normal limits. No pneumothorax. Visualized bones appearintact. IMPRESSION:No evidence of focal pulmonary infiltrates or effusions. Heart sizei s within normal limits. No pneumothorax. Visualized bones appearintact. Reported By: Kd Yañez :00 CULTURE, URINE URINE CULTURE See Note {CFU/mL} (Normal) Comments: COLONY COUNT 11,000-25,000 ORGANISM 1: MIXED GRAM POSITIVE ORGANISMS :14 CBCD,SMEAR DIFF EOS 1 % (Normal) Range: 0-5 MONOCYTE 2 % (Normal) Range: 0-10 PLT EST SeeNote (Normal) Comments: Result: ADEQUATE RED CELL MORPH SeeNote {NORMAL} (Normal) Comments: Result: NORM C+C ABSOLUTE NEUT 3.9 3/uL (Normal) Range: 2.0-7.7 CELLS COUNTED 100 (Normal) HCT 42.9 % (Normal) Range: 37-47 HGB 14.9 g/dL (Normal) Range: 12.0-16.0 LYMPH 43 % (Abnormal) Range: 19-41 MCH 34.6 pg (Abnormal) Range: 27.0-32.0 MCHC 34.8 g/dL (Normal) Range: 32-36 MCV 99.6 fL (Abnormal) Range: 81-99 PLT 273 K/mm3 (Normal) Range: 150-450 RBC 4.31 {M/mm3} (Normal) Range: 4.2-5.4 RDW 12.8 % (Normal) Range: 11.6-14.6 SEGS 54 % (Normal) Range: 47-70 WBC 6.7 K/mm3 (Normal) Range: 4.4-11.0 :14 COMP METABOLIC GAP 7 (Normal) Range: 5-15 A/G 1.3 {RATIO} (Normal) Range: 0.9-2.4 ALK P 57 U/L (Normal) Range: 50-136 ALT 24 U/L (Normal) Range: 12-78 AST 10 U/L (Abnormal) Range: 15-37 CA 9.4 mg/dL (Normal) Range: 8.5-10.1 CL 104 mmol/L (Normal) Range: 98-107 CO2 30.0 mmol/L (Normal) Range: 21.0-32.0 K 4.7 mmol/L (Normal) Range: 3.5-5.1 NA 141 mmol/L (Normal) Range: 136-145 T BILI 0.90 mg/dL (Normal) Range: 0.00-1.00 ALB 4.4 g/dL (Normal) Range: 3.4-5.0 BUN 10 mg/dL (Normal) Range: 7-18 BUN/CRE 12.5 {RATIO} (Normal) Range: 10-20 CREAT,SERUM 0.8 mg/dL (Normal) Range: 0.6-1.0 EST GFR 82 mL/min (Normal) EST GFR - AA 99 mL/min (Normal) GLOB 3.4 g/dL (Normal) Range: 2.7-4.2 T PROT 7.8 g/dL (Normal) Range: 6.4-8.2 GLU 90 mg/dL (Normal) Range: 70-110 89-Kgd-75973:14 COMPLETE UA BACTERIA 0 SEEN {/hpf} (Normal) MUCUS, URINE 0 SEEN {/hpf} (Normal) RENAL EPI SeeNote {/hpf} (Normal) Range: 0-5 Comments: Result: 0-5 SEEN LEUK ESTERASE 2+ (Abnormal) OCCULT BLOOD-UR SeeNote (Normal) Comments: Result: NEGATIVE RBC-UA 0 SEEN {/hpf} (Normal) Range: 0-5 SQUAM EPI 0 SEEN {/hpf} (Normal) Range: 5-10 WBC SeeNote {/hpf} (Normal) Range: 0-5 Comments: Result: 10-25 SEEN NITRITE UR SeeNote (Normal) Comments: Result: NEGATIVE BILIRUBIN URINE SeeNote (Normal) Comments: Result: NEGATIVE KETONE UR SeeNote mg/dL (Normal) Comments: Result: NEGATIVE pH UR 7.5 (Normal) Range: 5.0-8.0 PROT DIPSTX SeeNote (Normal) Comments: Result: NEGATIVE SP.GR. DIPSTX 1.010 (Normal) Range: 1.002-1.030 UROBILI 0.2 EU/dl (Normal) Range: 0.2 - 1.0 CLARITY CLEAR (Normal) COLOR YELLOW (Normal) GLUCOSE, UR SeeNote (Normal) Comments: Result: NEGATIVE :14 FREE T3 1.8 pg/mL (Abnormal) Range: 2.18-3.98 :14 LIPID HDL 62 mg/dL (Normal) Comments: Reference RangeHDL <40 mg/dL Low HDL CholesterolHDL >or= 60 mg/dL High HDL Cholesterol LDL 237 mg/dL (Abnormal) Range: 0-130 VLDL 21 mg/dL (Normal) Range: 5-40 CHOL 320 mg/dL (Abnormal) Comments: <200 mg/dL Syqmtfowj264-278 mg/dL Borderline>240 mg/dL High Risk TRIG 107 mg/dL (Normal) Comments: Serum Triglycerides Reference IntervalNormal <150 mg/dLBorderline high 150 - 199 mg/dLHigh 200 - 499 mg/ dLVery High > or = 500 mg/dL :14 T4 FREE DIRECT 0.70 ng/dL (Abnormal) Range: 0.76-1.46 :14 TSH 15.20 {uIU/mL} Range: 0.358-3.74 (Abnormal) 23-Mmk-600714:01 BILAT SCRN DIGITAL & CAD Radiology Report See Note (Normal) Comments: Exam Number: [id number] MAMMOGRAM, BILATERAL SCREENING DIGITAL AND CAD HISTORYRoutine screening. Full field digital images were obtained in mediolateral oblique andcraniocaudal projections. CAD images w ere reviewed. The current study is compared to the examinations of April 30, 2007,May 04, 2007, and April 10, 2008. There is moderately dense fibroglandular parenchyma present. There isno skin thick ening or retraction, architectural distortion, or clusterof suspicious microcalcifications. At the site of an asymmetricdensity seen in the upper outer quadrant of the left breast on theprevious examin ation, there is now a stereotactic localization clip.No other change is identified. If there is no suspicious palpableabnormality, followup mammogram in 1 year is recommended. IMPRESSIONThere is no rad iographic evidence of malignancy identified. FINAL ASSESSMENTBenign findings. BIRADS Category 2. A letter regarding these results has been sent to the patient. This interpretation was rendered by a rad iologist certified under theMammography Quality Standards Act of 1992 (MQSA). The mammograms werealso examined with computer-aided detection software ([employer], [employer] Reported By: MELISSA LEES M.D. Plan of Care Name Dates Details Instructions Dysuria : Eprescribed prescriptions (G8553) Indication: Dysuria BMI 28.0-28.9,adult : Eprescribed prescriptions (G8553) Indication: BMI 28.0-28.9,adult Anxiety : Eprescribed prescriptions (G8553) Indication: Anxiety Headache, acute : Eprescribed prescriptions (G8553) Indication: Headache, acute Herpes zoster without complication : Eprescribed prescriptions (G8553) Indication: Herpes zoster without complication Left-sided face pain : Eprescribed prescriptions (G8553) Indication: Left-sided face pain Acute headache : Eprescribed prescriptions (G8553) Indication: Acute headache Smoker : Eprescribed prescriptions (G8553) Indication: Smoker BMI 23.0-23.9, adult : Eprescribed prescriptions (G8553) Indication: BMI 23.0-23.9, adult BMI 23.0-23.9, adult : Eprescribed prescriptions (G8553) Indication: BMI 23.0-23.9, adult BMI between 19-24,adult : Eprescribed prescriptions (G8553) Indication: BMI between 19-24,adult Urinary frequency : Eprescribed prescriptions (G8553) Indication: Urinary frequency Smoker : Eprescribed prescriptions (G8553) Indication: Smoker Sore throat : Eprescribed prescriptions (G8553) Indication: Sore throat BMI between 19-24,adult : Eprescribed prescriptions (G8553) Indication: BMI between 19-24,adult Impaired fasting glucose : Eprescribed prescriptions (G8553) Indication: Impaired fasting glucose Abdominal pain, acute, right upper quadrant (Renamed from Acute abdominal pain in right upper quadrant) : Eprescribed prescriptions (G8553) Indication: Abdominal pain, acute, right upper quadrant (Renamed from Acute abdominal pain in right upper quadrant) Acquired hypothyroidism : Eprescribed prescriptions (G8553) Indication: Acquired hypothyroidism Acute nonintractable headache, unspecified headache type : Eprescribed prescriptions (G8553) Indication: Acute nonintractable headache, unspecified headache type Chronic intractable headache, unspecified headache type : Eprescribed prescriptions (G8553) Indication: Chronic intractable headache, unspecified headache type Other hyperlipidemia : Eprescribed prescriptions (G8553) Indication: Other hyperlipidemia Acute ethmoidal sinusitis, recurrence not specified : Eprescribed prescriptions (G8553) Indication: Acute ethmoidal sinusitis, recurrence not specified Acute bacterial bronchitis : Eprescribed prescriptions (G8553) Indication: Acute bacterial bronchitis BMI between 19-24,adult : Eprescribed prescriptions (G8553) Indication: BMI between 19-24,adult Other hyperlipidemia : Eprescribed prescriptions (G8553) Indication: Other hyperlipidemia Anxiety : Eprescribed prescriptions (G8553) Indication: Anxiety Anxiety : Eprescribed prescriptions (G8553) Indication: Anxiety Pneumonia, bacterial : Eprescribed prescriptions (G8553) Indication: Pneumonia, bacterial Pharyngitis, acute : Eprescribed prescriptions (G8553) Indication: Pharyngitis, acute Other hyperlipidemia : Eprescribed prescriptions (G8553) Indication: Other hyperlipidemia Sinusitis : Sinusitis *: sinus infection Indication: Sinusitis Acquired hypothyroidism : Eprescribed prescriptions (G8553) Indication: Acquired hypothyroidism Upper Respiratory Infection : Eprescribed prescriptions (G8553) Indication: Upper Respiratory Infection Anxiety : Eprescribed prescriptions (G8553) Indication: Anxiety Anxiety : Eprescribed prescriptions (G8553) Indication: Anxiety Pain in unspecified hip : Eprescribed prescriptions (G8553) Indication: Pain in unspecified hip Pain in unspecified hip : Eprescribed prescriptions (G8553) Indication: Pain in unspecified hip Dysuria : Eprescribed prescriptions (G8553) Indication: Dysuria Upper Respiratory Infection : *Antibiotic Usage Education - Female Indication: Upper Respiratory Infection Upper Respiratory Infection : *Antibiotic Usage Education - Female Indication: Upper Respiratory Infection Cough : Cough Medicines, Nonprescription: cough Indication: Cough Need for prophylactic vaccination and inoculation against influenza : Flu (Influenza) *: flu Indication: Need for prophylactic vaccination and inoculation against influenza Need for prophylactic vaccination and inoculation against influenza : Flu (Influenza) *: flu shot Indication: Need for prophylactic vaccination and inoculation against influenza Upper Respiratory Infection : *Antibiotic Usage Education - Female Indication: Upper Respiratory Infection Anxiety : Flu (Influenza) *: flu Indication: Anxiety Other signs and symptoms in breast : Breast Self-Exam *: breasts Indication: Other signs and symptoms in breast Bronchitis, acute : *Antibiotic Usage Education - Female Indication: Bronchitis, acute Upper Respiratory Infection : *Antibiotic Usage Education - Female Indication: Upper Respiratory Infection Fatigue : Fatigue: tiredness Indication: Fatigue Fatigue : Fatigue: fatigue Indication: Fatigue Need for prophylactic vaccination and inoculation against influenza : Flu Shots (Influenza Vaccine): flu shot Indication: Need for prophylactic vaccination and inoculation against influenza Syncope : Fainting (Syncope) *: fainting Indication: Syncope Acquired hypothyroidism : Hypothyroidism: Brief Version *: hypothyroidism Indication: Acquired hypothyroidism Cough : *Antibiotic Usage Education - Female Indication: Cough Unspecified bacterial pneumonia : *Antibiotic Usage Education - Female Indication: Unspecified bacterial pneumonia Pharyngitis, acute : *Antibiotic Usage Education - Female Indication: Pharyngitis, acute Anxiety : *Antidepressant Usage Indication: Anxiety Bronchitis, acute : *Antibiotic Usage Education - Female Indication: Bronchitis, acute Bronchitis : *URI Treatment Indication: Bronchitis Bronchitis : *URI Symptoms Indication: Bronchitis Bronchitis : *Antibiotic Usage Education - Female Indication: Bronchitis Other hyperlipidemia : *Cholesterol - Medication Side Effects Indication: Other hyperlipidemia Planned Observations METABOLIC PANEL, COMPREHENSIVE (85990)Indication: Right flank pain On: 78-Ykd-876073:21 Request Comments: stat CBC W/AUTO DIFF WBC (34430)Indication: Right flank pain On: 71-Fey-191793:21 Request Comments: stat CBC with auto diff (89520)Indication: Impaired fasting glucose On: 2-Ynx-233963:53 Request METABOLIC PANEL, COMPREHENSIVE (81594)Indication: Impaired fasting glucose On: 1-Dnv-021475:53 Request HGB A1C (05033)Indication: Impaired fasting glucose On: 5-Cci-245448:53 Request LIPID PANEL (04911)Indication: Other hyperlipidemia On: :53 Request Vitamin D Hydroxy (24389)Indication: Vitamin D deficiency On: :10 Request LIPID PANEL (01367)Indication: Other hyperlipidemia On: 72-Ekx-843580:10 Request CBC with auto diff (16797)Indication: Impaired fasting glucose On: :08 Request METABOLIC PANEL, COMPREHENSIVE (76870)Indication: Impaired fasting glucose On: :08 Request C-REACTIVE PROTEIN (44821)Indication: Left-sided face pain On: :08 Request SED RATE ERYTHROCYTE (45263)Indication: Left-sided face pain On: :08 Request HGB A1C (10867)Indication: Impaired fasting glucose On: :08 Request CBC, PLATELETS & MANUAL DIFF (67429)Indication: Fatigue On: :44 Request EBV Panel (72064)Indication: Fatigue On: 62-Eoi-302224:44 Request LIPID PANEL (96517)Indication: Other hyperlipidemia On: :00 Request CBC with auto diff (04527)Indication: Impaired fasting glucose On: :00 Request METABOLIC PANEL, COMPREHENSIVE (85546)Indication: Impaired fasting glucose On: :00 Request HGB A1C (12727)Indication: Impaired fasting glucose On: :00 Request LIPID PANEL (22949)Indication: Other hyperlipidemia On: :37 Request TSH (THYROID STIMULATING HORMONE) (57190)Indication: Acquired hypothyroidism On: :37 Request CBC with auto diff (10438)Indication: Impaired fasting glucose On: :35 Request METABOLIC PANEL, COMPREHENSIVE (64459)Indication: Impaired fasting glucose On: 7-Uol-451793:35 Request MICROALBUMIN: CREATININE RATIO (45993) AND (27800)Indication: Impaired fasting glucose On: :35 Request HGB A1C (68964)Indication: Impaired fasting glucose On: 9-Xzn-123367:35 Request CBC W/AUTO DIFF WBC (19666)Indication: Primary adrenocortical insufficiency On: 79-Wph-031702:06 Request METABOLIC PANEL, COMPREHENSIVE (61009)Indication: Primary adrenocortical insufficiency On: 98-Tgg-300436:06 Request LIPID PANEL (98021)Indication: Other hyperlipidemia On: :26 Request CBC with auto diff (93335)Indication: Impaired fasting glucose On: :26 Request METABOLIC PANEL, COMPREHENSIVE (58667)Indication: Impaired fasting glucose On: :26 Request HGB A1C (80638)Indication: Impaired fasting glucose On: :26 Request TSH (57118)Indication: Acquired hypothyroidism On: :59 Request Comments: 6 weeks RHEUMATOID FACTOR-QUANT (96513)Indication: Joint pain On: 80-Arf-220464:02 Request C-REACTIVE PROTEIN (86938)Indication: Joint pain On: :02 Request SED RATE ERYTHROCYTE (52665)Indication: Joint pain On: :02 Request URIC ACID BLOOD (83175)Indication: Joint pain On: :02 Request T3, FREE (TRIDOTHYRONINE) (70690)Indication: Acquired hypothyroidism On: :58 Request T4, FREE (THYROXINE) (48997)Indication: Acquired hypothyroidism On: :58 Request TSH (96329)Indication: Acquired hypothyroidism On: :58 Request CBC W/AUTO DIFF WBC (78008)Indication: Edema, unspecified type On: 59-Rse-338234:48 Request METABOLIC PANEL, COMPREHENSIVE (52079)Indication: Edema, unspecified type On: :48 Request SODIUM URINE (68284)Indication: Hyponatremia On: 54-Mtz-889527:30 Request Vitamin D Hydroxy (41759)Indication: Hypocalcemia On: 41-Pgn-386186:31 Request PARATHORMONE (53301)Indication: Hypocalcemia On: :31 Request PHOSPHORUS (69236)Indication: Hypocalcemia On: :31 Request METABOLIC PANEL, COMPREHENSIVE (78116)Indication: Hypocalcemia On: 35-Wmt-061116:30 Request T3, FREE (TRIDOTHYRONINE) (01953)Indication: Acquired hypothyroidism On: :20 Request T4, FREE (THYROXINE) (66224)Indication: Acquired hypothyroidism On: 00-Qve-212158:20 Request TSH (70518)Indication: Acquired hypothyroidism On: 84-Mgz-624492:20 Request HGB A1C (46364)Indication: Impaired fasting glucose On: :17 Request MICROALBUMIN: CREATININE RATIO (34188) AND (42622)Indication: Impaired fasting glucose On: :17 Request METABOLIC PANEL, COMPREHENSIVE (60934)Indication: Impaired fasting glucose On: :17 Request T3, FREE (TRIDOTHYRONINE) (91136)Indication: Acute nonintractable headache, unspecified headache type On: :46 Request T4, FREE (THYROXINE) (00734)Indication: Acute nonintractable headache, unspecified headache type On: :46 Request TSH (02254)Indication: Acute nonintractable headache, unspecified headache type On: :46 Request TSH (57043)Indication: Acquired hypothyroidism On: :46 Request T4, FREE (THYROXINE) (76156)Indication: Acquired hypothyroidism On: :46 Request Metabolic Panel, Basic (83075)Indication: Hyponatremia On: :46 Request T3, FREE (TRIDOTHYRONINE) (53492)Indication: Acquired hypothyroidism On: 8-Luz-674632:46 Request MICROALBUMIN: CREATININE RATIO (03592) AND (30842)Indication: Impaired fasting glucose On: 4-Wxg-843429:55 Request LIPOPROTEIN, BLD, BY NMR (79579)Indication: Other hyperlipidemia On: 6-Gdt-369601:55 Request METABOLIC PANEL, COMPREHENSIVE (53538)Indication: Osteoporosis On: 4-Hpn-425267:52 Request Vitamin D Hydroxy (01434)Indication: Osteopenia On: 16-Jac-421706:03 Request CBC W/AUTO DIFF WBC (74436)Indication: Gastroesophageal reflux disease without esophagitis On: 58-Eok-527931:03 Request METABOLIC PANEL, COMPREHENSIVE (61779)Indication: Other hyperlipidemia On: 08-Htp-088743:03 Request LIPID PANEL (81441)Indication: Other hyperlipidemia On: 17-Bys-210194:03 Request DHEA-S (DEHYDROEPIANDROSTERONE SULFATE) (26526)Indication: Adrenal disorder, other On: :29 Request VITAMIN D, 1, 25-DIHYDROXY (93087)Indication: Vitamin D deficiency On: :29 Request T4, TOTAL (69296)Indication: Acquired hypothyroidism On: :29 Request T3, TOTAL (TRIDOTHYRONINE) (23355)Indication: Acquired hypothyroidism On: :29 Request T3, FREE (TRIDOTHYRONINE) (78415)Indication: Acquired hypothyroidism On: :28 Request T4, FREE (THYROXINE) (76218)Indication: Acquired hypothyroidism On: :28 Request TSH (41279)Indication: Acquired hypothyroidism On: :28 Request T4, FREE (THYROXINE) (92886)Indication: Thyroid nodule On: 1-Kdm-280229:57 Request T3, FREE (TRIDOTHYRONINE) (65042)Indication: Thyroid nodule On: :57 Request TSH (56822)Indication: Thyroid nodule On: :57 Request T3, FREE (TRIDOTHYRONINE) (84520)Indication: Acquired hypothyroidism On: :39 Request Comments: forward to Dr Grimm, Endocronologist, [facility] T4, FREE (THYROXINE) (95342)Indication: Acquired hypothyroidism On: :39 Request Comments: forward to Dr Grimm, Endocronologist, [facility] TSH (32861)Indication: Acquired hypothyroidism On: :39 Request Comments: forward to Dr Grimm Endocronologist, [facility] DHEA (DEHYDROEPIANDROSTERONE) (31308)Indication: Adrenal disorder, other On: :39 Request Comments: forward to Dr Grimm, Endocronologist, [place] CALCIFEDIOL (16483)Indication: Vitamin D deficiency On: :38 Request Comments: forward to Dr Grimm Endocronologist, [facility] METABOLIC PANEL, COMPREHENSIVE (11388)Indication: Other hyperlipidemia On: 67-Abb-431136:32 Request LIPID PANEL (87531)Indication: Other hyperlipidemia On: 61-Yrz-044591:32 Request CBC W/AUTO DIFF WBC (20620)Indication: Macrocytosis without anemia On: 78-Mjz-374548:53 Request METABOLIC PANEL, COMPREHENSIVE (73129)Indication: Other hyperlipidemia On: 89-Xfk-740402:53 Request LIPID PANEL (23083)Indication: Other hyperlipidemia On: 39-Vlb-809499:53 Request METABOLIC PANEL, COMPREHENSIVE (93825)Indication: Other hyperlipidemia On: 43-Gzz-235537:24 Request LIPID PANEL (34111)Indication: Other hyperlipidemia On: 58-Hnw-716440:24 Request CULTURE, SPUTUM (88415)Indication: Cough On: 17-Khn-007440:14 Request METABOLIC PANEL, COMPREHENSIVE (37065)Indication: Other hyperlipidemia On: :02 Request LIPID PANEL (19697)Indication: Other hyperlipidemia On: 7-Jbn-394089:02 Request CBC WITH MANUAL DIFF (61777)Indication: Upper Respiratory Infection On: 8-Adg-284868:11 Request METABOLIC PANEL, COMPREHENSIVE (36425)Indication: Upper Respiratory Infection On: 3-Gui-484828:11 Request LIPID PANEL (22299)Indication: Other hyperlipidemia On: 6-Egq-762872:11 Request LIPID PANEL (41653)Indication: Other hyperlipidemia On: 40-Ksz-137590:28 Request METABOLIC PANEL, COMPREHENSIVE (17282)Indication: Other hyperlipidemia On: 03-Eww-083788:28 Request Vitamin D Hydroxy (46575)Indication: Osteopenia On: 13-Oxl-895532:16 Request CBC WITH MANUAL DIFF ([id number])Indication: Fatigue On: 35-Qcx-427878:16 Request METABOLIC PANEL, COMPREHENSIVE (80769)Indication: Fatigue On: 29-Inl-349228:16 Request T3, FREE (TRIDOTHYRONINE) ([id number])Indication: Acquired hypothyroidism On: 68-Gec-331042:16 Request T4, FREE (THYROXINE) ([id number])Indication: Acquired hypothyroidism On: 85-Olg-808577:16 Request TSH ([id number])Indication: Acquired hypothyroidism On: 52-Vxr-633300:16 Request LIPID PANEL (07035)Indication: Other hyperlipidemia On: 04-Vvv-420976:15 Request T3, FREE (TRIDOTHYRONINE) ([id number])Indication: Acquired hypothyroidism On: 21-Feb-2012 Request T4, FREE (THYROXINE) ([id number])Indication: Acquired hypothyroidism On: 21-Feb-2012 Request TSH ([id number])Indication: Acquired hypothyroidism On: 21-Feb-2012 Request Metabolic Panel, Basic (22351)Indication: Fatigue On: 90-Edy-995608:58 Request Anti-TPO Antibody ([id number])Indication: Acquired hypothyroidism On: 19-Sok-508802:56 Request T3, FREE (TRIDOTHYRONINE) ([id number])Indication: Acquired hypothyroidism On: :56 Request T4, FREE (THYROXINE) ([id number])Indication: Acquired hypothyroidism On: 13-Eop-504751:56 Request TSH ([id number])Indication: Acquired hypothyroidism On: :49 Request VITAMIN B-12 (CYANOCOBALAMIN) ([id number])Indication: Macrocytosis without anemia On: 43-Gvp-165273:49 Request TSH ([id number])Indication: Palpitations On: 40-Ybg-75527:48 Request METABOLIC PANEL, COMPREHENSIVE ([id number])Indication: Syncope On: :48 Request CBC WITH MANUAL DIFF ([id number])Indication: Syncope On: :48 Request D-Dimer ([id number])Indication: Syncope On: :48 Request Comments: stat CBC WITH MANUAL DIFF ([id number])Indication: inflammatory arthritis- following with valenke On: 39-Wye-117588:03 Request METABOLIC PANEL, COMPREHENSIVE (27403)Indication: inflammatory arthritis- following with valenke On: 10-Eop-291941:03 Request LIPID PANEL ([id number])Indication: Other hyperlipidemia On: 59-Tbb-290479:03 Request TSH ([id number])Indication: Acquired hypothyroidism On: 54-Fvi-46930:56 Request TSH ([id number])Indication: Acquired hypothyroidism On: 1-Yxh-174602:08 Request Comments: to be done in 8 weeks. METABOLIC PANEL, COMPREHENSIVE ([id number])Indication: Dysphagia, unspecified dysphagia On: 33-Oqh-820736:52 Request LIPID PANEL ([id number])Indication: Other hyperlipidemia On: 07-Xxg-226487:52 Request TSH ([id number])Indication: Acquired hypothyroidism On: 78-Pvs-798717:52 Request TSH ([id number])Indication: Acquired hypothyroidism On: 17-Hfm-629984:15 Request CULTURE, SPUTUM ([id number])Indication: Cough On: 7-Asu-668579:52 Request Throat Culture ([id number])Indication: Unspecified bacterial pneumonia On: 91-Ktj-204085:00 Request Comments: swab tounge per order from Dr. Fast ARELY CULTURE-OTHER ([id number])Indication: Unspecified bacterial pneumonia On: :43 Request EBV Panel ([id number])Indication: Fatigue On: :41 Request METABOLIC PANEL, COMPREHENSIVE (54049)Indication: Fatigue On: :41 Request CBC WITH MANUAL DIFF ([id number])Indication: Fatigue On: :41 Request ARELY CULTURE-OTHER (44593)Indication: Pharyngitis, acute On: :24 Request Rapid Strep Test, Office ([id number])Indication: Pharyngitis, acute On: 09-Dhe-882085:24 Request CBC WITH MANUAL DIFF ([id number])Indication: Anxiety On: :13 Request METABOLIC PANEL, COMPREHENSIVE (58406)Indication: Other hyperlipidemia On: :13 Request T4, FREE (THYROXINE) ([id number])Indication: Acquired hypothyroidism On: :12 Request T3, FREE (TRIDOTHYRONINE) ([id number])Indication: Acquired hypothyroidism On: :12 Request TSH ([id number])Indication: Acquired hypothyroidism On: :12 Request LIPID PANEL ([id number])Indication: Other hyperlipidemia On: :11 Request URINE ARELY CULTURE-SPRING COL COUNT ([id number])Indication: Urinary frequency On: 2-Rsi-146796:21 Request METABOLIC PANEL, COMPREHENSIVE ([id number])Indication: Gastroesophageal reflux disease without esophagitis On: :19 Request CBC WITH MANUAL DIFF ([id number])Indication: Gastroesophageal reflux disease without esophagitis On: 6-Rej-992087:19 Request HELICOBACTER PYLORI ANTIBODY PROFILE IgG, IgM, IgA ([id number])Indication: Gastroesophageal reflux disease without esophagitis On: 8-Vjg-292748:13 Request CBC WITH MANUAL DIFF ([id number])Indication: Preoperative examination On: :42 Request METABOLIC PANEL, COMPREHENSIVE ([id number])Indication: Preoperative examination On: :42 Request PTT (Activated Partial Thromboplastin Time) ([id number])Indication: Preoperative examination On: :42 Request PT (Prothrobim Time) ([id number])Indication: Preoperative examination On: 36-Kll-184127:42 Request URINALYSIS, W/ MICRO ([id number])Indication: Preoperative examination On: 15-Asw-272705:41 Request TSH ([id number])Indication: Acquired hypothyroidism On: 69-Pws-213434:41 Request LIPID PANEL ([id number])Indication: Other hyperlipidemia On: 25-Hyu-964443:41 Request ARELY CULTURE-OTHER ([id number])Indication: Pharyngitis, acute On: 2-Ith-669185:30 Request ARELY CULTURE-OTHER ([id number])Indication: Pharyngitis, acute On: 1-Zoy-773947:14 Request Thin prep Pap ([id number])Indication: Well woman exam On: 49-Ixi-87044:47 Request Thin prep Pap ([id number])Indication: Well woman exam On: 6-Nwr-146633:09 Request Vitamin D Hydroxy (22622)Indication: Osteopenia On: :24 Request CBC WITH MANUAL DIFF ([id number])Indication: 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 On: 2-Cnv-649023:24 Request METABOLIC PANEL, COMPREHENSIVE ([id number])Indication: 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 On: :24 Request LIPID PANEL ([id number])Indication: Other hyperlipidemia On: :24 Request TSH ([id number])Indication: Acquired hypothyroidism On: :23 Request Creatine Kinase Total ([id number])Indication: Arthritis On: :06 Request METABOLIC PANEL, COMPREHENSIVE ([id number])Indication: Arthritis On: :05 Request CCP ANTIBODY ([id number])Indication: Arthritis On: :05 Request SED RATE ERYTHROCYTE ([id number])Indication: Arthritis On: :05 Request C-REACTIVE PROTEIN ([id number])Indication: Arthritis On: :05 Request JACQUI (ANTINUCLEAR ANTIBODY) ([id number])Indication: Arthritis On: :05 Request RHEUMATOID FACTOR-QUANT ([id number])Indication: Arthritis On: :05 Request TSH ([id number])Indication: Acquired hypothyroidism On: :06 Request HEPATIC FUNCTION PANEL ([id number])Indication: Other hyperlipidemia On: :06 Request LIPID PANEL ([id number])Indication: Other hyperlipidemia On: :06 Request Vitamin D Hydroxy (53195)Indication: Osteopenia On: :27 Request LIPID PANEL ([id number])Indication: Other hyperlipidemia On: :22 Request HEPATIC FUNCTION PANEL ([id number])Indication: Other hyperlipidemia On: :21 Request URINE ARELY CULTURE (SPRING COL COUNT) (68352)Indication: Abnormal urine On: :19 Request TSH ([id number])Indication: Acquired hypothyroidism On: :18 Request URINALYSIS, W/ MICRO ([id number])Indication: Low back pain On: 32-Agy-008540:50 Request T3, FREE (TRIDOTHYRONINE) ([id number])Indication: Acquired hypothyroidism On: :50 Request T4, FREE (THYROXINE) ([id number])Indication: Acquired hypothyroidism On: :50 Request CBC WITH MANUAL DIFF ([id number])Indication: Low back pain On: 55-Qji-352667:49 Request METABOLIC PANEL, COMPREHENSIVE ([id number])Indication: Family history of diabetes mellitus On: :49 Request LIPID PANEL ([id number])Indication: Other hyperlipidemia On: :47 Request TSH ([id number])Indication: Acquired hypothyroidism On: :47 Request Planned Encounters Medical; [facility] 3 Month FU - On: 07-Mar-2018 11:00 [facility] Fast DO, Martha A Fast DO, Martha A Planned Procedures CT - Abdomen & Pelvis Stone On: 08-Jan-2018 Intent ProtocolBy: Fast DO, Martha A Fast Comments: stat call wet read DO, Martha A INJECTION, PROLIA ([id number])By: Fast On: 05-Dec-2017 Intent DO Martha A Fast DO, Martha A Comments: [id number] arm, SCprefilled syringeMLONG ELECTROCARDIOGRAM, COMPLETE (ECG) On: 05-Dec-2017 Intent ([id number])By: Kevin DO, Martha A Fast Comments: ekg showed normal sinus rhythym, normal axis, no acute st/t wave changes sinus ariana DO, Martha A MRI OF BRAIN WITH AND WITHOUT On: 01-Nov-2017 Intent CONTRAST ([id number])By: Martha Brown DO Comments: dont schedule on or A Fast DO, Martha A Flu Vaccine (Quadrivalent) 88192Ky: On: 01-Nov-2017 Intent Fast DO, Martha A Fast DO, Martha A Comments: Lot: [id number]: 08/26/18Site: L dltd, IMDose prefilled syringegiven by: Kahlil reviewed and ABN signed Radiology - Forearm - RightBy: Fast On: 28-Jun-2017 Intent DO, Martha A Fast DO, Martha A DEXA SCAN AXIAL SKELETON ([id number])By: On: 28-Jun-2017 Intent Fast DO, Martha A Fast DO, Martha A Comments: august SCREENING DIGITAL TOMOSYNTHESIS OF On: 28-Jun-2017 Intent BREAST ([id number])By: Fast DO, Martha A Comments: august Fast DO, Martha A Radiology - Wrist - RightBy: Fast On: 28-Jun-2017 Intent DO, Martha A Fast DO, Martha A Comments: fall with outstrestched hand CT - Brain/Head (Without On: 28-Jun-2017 Intent Contrast)By: Kevin SAMUEL Martha A Kevin Comments: stat- fall down steps now headache DO, Martha A INJECTION, PROLIA ([id number])By: Fast On: 18-May-2017 Intent DO, Martha A Fast DO, Martha A Comments: prolia injection 1 prefilled syringelot: [id number]: 05/2019RA sub-qAD BRACER CHEST XRAY, PA & LATERAL ([id number])By: On: 01-May-2017 Intent Fast DO, Martha A Fast DO, Martha A INFUSION, NORMAL SALINE SOLUTION , On: 21-Apr-2017 Intent 1000 CC (Special Coverage Comments: 2nd bag same lot same exp Instructions Apply. See MCM: 2049) ([id number])By: Fast DO, Martha A Fast DO, Martha A INFUSION, NORMAL SALINE SOLUTION , On: 21-Apr-2017 Intent 1000 CC (Special Coverage Comments: Site:[address] [place] [address] insyte Number of attemps:1Tolerated:wellLot/exp of NS [id number] 6/19Medication?: noMLONG, BRACER Instructions Apply. See MCM: 2049) ([id number])By: Fast DO, Martha A Fast DO, Martha A CHEST XRAY, PA & LATERAL ([id number])By: On: 21-Apr-2017 Intent Fast DO, Martha A Fast DO, Martha A Comments: 3 weeks Ultrasound - ThyroidBy: Fast DO, On: 07-Mar-2017 Intent Martha A Fast DO, Martha A PNEUM VAC ADLT/IMUMNOSPR, SBC/INTRM On: 20-Dec-2016 Intent ([id number])By: Kevin SAMUEL, Martha A Fast Comments: pnuemovax prefilled syringe injectionlot: [id number]: 04/2018L DELT IMpt tolerated wellAD BRACER DO, Martha A Flu Vaccine (Quadrivalent) 47692Qp: On: 30-Nov-2016 Intent Fast DO, Martha A Fast DO, Martha A Comments: lot: [id number]: 08/14/17ite/route: L michael, IMamt: 0.5mlVIS and ABN signed when applicableChelsea, CREATIVE ASSISTANT ELECTROCARDIOGRAM, COMPLETE (ECG) On: 29-Nov-2016 Intent ([id number])By: Kevin SAMUEL, Martha A Fast Comments: ekg showed normal sinus rhythym, normal axis, no acute st/t wave changes DO, Martha A INJECTION, PROLIA ([id number])By: Kevin On: 04-Nov-2016 Intent DO, Martha A Fast DO, Martha A Comments: Lot:[id number]:08/14/17Dose:0.5mLRoute:IMSite:L DltdGiven By:ZACH signed Nuclear Stress Test/Stress On: 01-Sep-2016 Intent SPECT/TreadmillBy: Fast DO, Martha A Fast DO, Martha A Aerosol Treatment ([id number])By: Kevin On: 08-Aug-2016 Intent DO, Martha A Fast DO, Martha A SCREENING DIGITAL TOMOSYNTHESIS OF On: 08-Aug-2016 Intent BREAST ([id number])By: Kevin DO, Martha A Comments: end of july Fast DO, Martha A Echo CompleteBy: Fast DO, Martha A On: 08-Aug-2016 Intent Fast DO, Martha A EEGBy: Fast DO, Martha A Fast DO, On: 18-Jul-2016 Intent Martha A Radiology - Cervical SpineBy: Fast On: 23-Jun-2016 Intent DO, Martha A Fast DO, Martha A Radiology - Chest- PA and LatBy: On: 19-Jun-2016 Intent Fast DO, Martha A Fast DO, Martha A CT - Abdomen (IV Contrast On: 24-May-2016 Intent Needed)By: Fast DO, Martha A Fast DO, Martha A Ultrasound - ThyroidBy: Fast DO, On: 24-May-2016 Intent Martha A Fast DO, Martha A Comments: end june Nuclear Medicine - HIDA w/CCKBy: On: 16-May-2016 Intent Fast DO, Martha A Fast DO, Martha A Ultrasound - LiverBy: Fast DO, On: 09-May-2016 Intent Martha A Fast DO, Martha A Comments: with gallbladder but most tenderness is left lobe of liver Ultrasound - ThyroidBy: Fast DO, On: 09-Mar-2016 Intent Martha A Fast DO, Martha A INJECTION, PROLIA ([id number])By: Kevin On: 26-Feb-2016 Intent DO, Martha A Fast DO, Martha A Comments: Lot:[id number]:02/13Dose:60mLRoute:sub qSite: l armGiven By:ZACH signed MRI OF BRAIN WITH AND WITHOUT On: 08-Feb-2016 Intent CONTRAST ([id number])By: Kevin SAMUEL Martha Comments: try to get this week- A Fast DO, Martha A Solu- Medrol Injection, 125mg On: 16-Dec-2015 Intent ([id number])By: Kevin SAMUEL, Martha A Fast Comments: Lot:[id number]:04/2018Dose:125mgRoute:imSite:r hipGiven By:ZACH signed DO, Martha A Aerosol Treatment (46332)By: Kevin On: 16-Dec-2015 Intent DO, Martha A Fast DO, Martha A Flu Vaccine (Quadrivalent) 27829Dv: On: 30-Nov-2015 Intent Fast DO, Martha A Fast DO, Martha A Comments: Lot:[id number]:08/26/16Dose:0.5mLRoute:IMSite:L DltdGiven By:ZACH signed MRI LUMBAR SPINE W/O CONTRAST On: 01-Sep-2015 Intent ([id number])By: Martha Brown DO Comments: hx of spine surgery- has done pt and pain management and nsaids- getting weak ehl right Martha SAMUEL DEXA SCAN AXIAL SKELETON ([id number])By: On: 06-Jul-2015 Intent Martha Brown DO, DO, Debra A MAMMOGRAM, SCREENING, BOTH BREAST On: 06-Jul-2015 Intent ([id number])By: Martha Brown DO, DO, Debra A Rocephon Injection, 1 Gm On: 06-Mar-2015 Intent ([id number])By: Martha Brown DO Comments: lot: [id number]: 04/27/18site/route: RGM/IMamt: 1GVIS signed when applicableMILLIE Crespo DO, Debra A Radiology - ChestBy: Nicole KAYE, On: 09-Feb-2015 Intent Chantal Flu Vaccine (Quadrivalent) 20042Sw: On: 10-Dec-2014 Intent Martha Brown DO, DO, Debra A Comments: Lot #:[id number] date: 07/2015Amount given:prefilled syringeSite given:L Dltd, IMGiven by: WINNIE Hart and ABN signed ADMINISTRATION OF INFLUENZA VIRUS On: 10-Dec-2014 Intent VACCINE ([id number])By: Martha Brown DO, DO, Debra A BILATERAL MAMMOGRAMS ([id number])By: On: 17-Jun-2014 Intent Martha Brown DO, DO Martha A Comments: screening FLU VAC, SPLIT, >3 YEARS, INTRAMUSC On: 02-Dec-2013 Intent ([id number])By: Martha Brown DO Comments: Lot #:[id number] date:10/2015Amount given:0.5mlRoute: IMSite given: left deltoidGiven by: GARETT Washington DO, Debra A IMMUNIZ ADMNIN, 1 VAC, SNGL/COMBO On: 02-Dec-2013 Intent ([id number])By: Visit, Nurse CT OF RIGHT HIP WITH CONTRAST On: 30-Sep-2013 Intent ([id number])By: Martha Brown DO Comments: with or without contrast Martha SAMUEL REMOVAL OF SUTURE BY A PROVIDER On: 30-Sep-2013 Intent OTHER THAN PROVIDER WHO ORIGINALLY Comments: rozina in head, 2 removed, pt tolerated PLACED SUTURE ([id number])By: Visit, Nurse Radiology - PelvisBy: Fast DO, On: 25-Sep-2013 Intent Martha A Fast DO, Martha A Radiology - Hip - RightBy: Fast DO, On: 25-Sep-2013 Intent Martha A Fast DO, Martha A Comments: stat call results Radiology - Thoracic SpineBy: Fast On: 25-Sep-2013 Intent DO, Martha A Fast DO, Martha A Radiology - Forearm - RightBy: Fast On: 25-Sep-2013 Intent DO, Martha A Fast DO, Martha A Pulse Oximetry (07981)By: Kevin SAMUEL, On: 14-May-2013 Intent Martha A Fast DO, Martha A Comments: 98 Spirometry (58886)By: Kevin SAMUEL, On: 14-May-2013 Intent Martha A Fast DO, Martha A Comments: good effor tand curve - mild decrease small airways Radiology - Chest- PA and LatBy: On: 14-May-2013 Intent Fast DO, Martha A Fast DO, Martha A Comments: stat call wet read Eprescribed prescriptions On: 14-May-2013 Intent (G8553)By: Kevin DO, Martha A Fast DO, Martha A Eprescribed prescriptions On: 29-Apr-2013 Intent (G8553)By: Kevin DO, Martha A Fast DO, Martha A Eprescribed prescriptions On: 19-Feb-2013 Intent (G8553)By: Cherie Fountain FLU VAC, SPLIT, >3 YEARS, INTRAMUSC On: 28-Jan-2013 Intent (19801)By: Kevin SAMUEL Martha A Fast Comments: Lot #:[id number] date:mount given:0.5mlRoute: IMSite given: L dltdVIS and ABN signedGiven by: GARETT Washington DO Martha A IMMUNIZ ADMNIN, 1 VAC, SNGL/COMBO On: 28-Jan-2013 Intent ([id number])By: Kevin SAMUEL Martha Rita Fast DO, Martha A Eprescribed prescriptions On: 28-Jan-2013 Intent (G8553)By: Patito Tineo Eprescribed prescriptions On: 17-Dec-2012 Intent (G8553)By: Cherie Fountain Breast Ultrasound - LeftBy: Fast On: 02-Nov-2012 Intent DO, Martha A Fast DO, Martha A Breast Diagnostic - LeftBy: Fast On: 02-Nov-2012 Intent DO, Martha A Fast DO, Martha A CT - Abdomen & Pelvis Stone On: 12-Sep-2012 Intent ProtocolBy: Fast DO, Martha A Fast DO, Martha A Spirometry (90781)By: Fast DO, On: 28-May-2012 Intent Martha A Fast DO, Martha A Comments: good effort and curve mild obst Pulse Oximetry (77585)By: Fast DO, On: 28-May-2012 Intent Martha A Fast DO, Martha A Comments: 98 Breast Screening - BilateralBy: On: 28-May-2012 Intent Fast DO, Martha A Fast DO, Martha A Eprescribed prescriptions On: 28-May-2012 Intent (G8553)By: Patito Tineo Eprescribed prescriptions On: 27-Apr-2012 Intent (G8553)By: Patito Tineo Eprescribed prescriptions On: 13-Feb-2012 Intent (G8553)By: Fast DO, Martha A Fast DO, Martha A Eprescribed prescriptions On: 30-Jan-2012 Intent (G8553)By: Patito Tineo FLU VAC, SPLIT, >3 YEARS, INTRAMUSC On: 09-Dec-2011 Intent ([id number])By: Patito Tineo Comments: Lot #[id number]-8/30/13Site-left deltoidgiven by: Angela Vincent LPN IMMUNIZ ADMNIN, 1 VAC, SNGL/COMBO On: 09-Dec-2011 Intent (53103)By: Patito Tineo Nuclear Stress Test/Stress On: 22-Nov-2011 Intent SPECT/TreadmillBy: Fast DO, Martah A Fast DO, Martha A Echo CompleteBy: Fast DO, Martha A On: 22-Nov-2011 Intent Fast DO, Martha A CT - ChestBy: Fast DO, Martha A Fast On: 14-Nov-2011 Intent DO, Martha A Comments: STAT PE PROTOCOL EKGBy: Fast DO, Martha A Fast DO, On: 14-Nov-2011 Intent Martha A Comments: ekg showed normal sinus rhythym, normal axis, no acute st/t wave changes rsr prime Radiology - Hip - BilateralBy: Fast On: 14-Nov-2011 Intent DO, Martha A Fast DO, Martha A Holter Monitor 24 hrsBy: Fast DO, On: 14-Nov-2011 Intent Martha A Fast DO, Martha A MRI - BrainBy: Fast DO, Martha A On: 14-Nov-2011 Intent Fast DO, Martha A Radiology - Lumbar SpineBy: Fast On: 14-Nov-2011 Intent DO, Martha A Fast DO, Martha A Comments: tailbone Radiology - Cervical SpineBy: Fast On: 14-Nov-2011 Intent DO, Martha A Fast DO, Martha A EsophagramBy: Fast DO, Martha A Fast On: 22-Aug-2011 Intent DO, Martha A Comments: with 12mm tablet Pulse Oximetry (26627)By: Fast DO, On: 28-Jun-2011 Intent Martha A Fast DO, Martha A Comments: 98 Radiology - Chest- PA and LatBy: On: 28-Jun-2011 Intent Fast DO, Martha A Fast DO, Martha A Comments: stat call wet read Spirometry ([id number])By: Fast DO, On: 28-Jun-2011 Intent Martha A Fast DO, Martha A Comments: good effort and curve normal Radiology - ChestBy: Fast DO, Martha On: 07-Jun-2011 Intent A Fast DO, Martha A Comments: PA/LAT (do in 1 month) Eprescribed prescriptions On: 07-Jun-2011 Intent (G8553)By: Fast DO, Martha A Fast DO, Martha A Pulse Oximetry ([id number])By: Fast DO, On: 07-Jun-2011 Intent Martha A Fast DO, Martha A Comments: 95 Radiology - Chest- PA and LatBy: On: 07-Jun-2011 Intent Fast DO, Martha A Fast DO, Martha A Comments: call wet read MAMMOGRAM, SCREENING, BOTH BREASTS On: 20-May-2011 Intent ([id number])By: Fast DO, Martha A Fast DO, Martha A Ultrasound - ThyroidBy: Fast DO, On: 27-Apr-2011 Intent Martha A Fast DO, Martha A TDAP VACCINE >7 IM ([id number])By: On: 27-Apr-2011 Intent Patito Tineo Comments: 2009 FLU VAC, SPLIT, >3 YEARS, INTRAMUSC On: 21-Dec-2010 Intent (68179)By: Patito Tineo Comments: Lot #:[id number] date:mount given:0.5mlRoute: IMSite given:left deltGiven by: GARETT Washington IMMUNIZ ADMNIN, 1 VAC, SNGL/COMBO On: 21-Dec-2010 Intent ([id number])By: Patito Tineo EKG (10345)By: Melissa SLOAN Cynthia On: 27-Oct-2010 Intent Comments: ekg showed normal sinus rhythym, normal axis, no acute st/t wave changes rsr no change Eprescribed prescriptions On: 03-Aug-2010 Intent (G8553)By: Fast DO, Martha A Fast DO, Martha A CT - NeckBy: Fast DO, Martha A Fast On: 16-Jul-2010 Intent DO, Martha A Comments: ie cervical spine- Radiology - ChestBy: Fast DO, Martha On: 13-Jul-2010 Intent A Fast DO, Martha A Comments: feliciano Radiology - Cervical SpineBy: Fast On: 13-Jul-2010 Intent DO, Martha A Fast DO, Martha A DXA, BONE DENSITY, AXIAL SKELETON On: 04-May-2010 Intent ([id number])By: Patito Tineo MAMMOGRAM, SCREENING, BOTH BREASTS On: 04-May-2010 Intent ([id number])By: Patito Tineo Clinical Breast Examination On: 04-May-2010 Intent (G0101)By: Patito Tineo Nuclear Medicine - Bone ScanBy: On: 02-Apr-2010 Intent Fast DO, Martha A Fast DO, Martha A Comments: full body- has neck pain and arthralgias and abnormal sacroiliac joint on xray-w ith focal sclerosis MAMMOGRAM, SCREENING, BOTH BREASTS On: 02-Apr-2010 Intent ([id number])By: Fast DO, Martha A Fast Comments: due end of may DO, Martha A Ultrasound - ThyroidBy: Noman, On: 23-Dec-2009 Intent Patito VENEGAS ADMNIN, 1 VAC, SNGL/COMBO On: 23-Dec-2009 Intent ([id number])By: Fast DO, Martha A Fast Comments: lot # [id number] 4Pexp- [id number]-FXQEdbbis-QQjwhv- 0.5ML tolerated well Mari SAGEN DO, Martha A FLU VAC, SPLIT, >3 YEARS, INTRAMUSC On: 23-Dec-2009 Intent ([id number])By: Fast DO, Martha A Fast DO, Martha A Spirometry ([id number])By: Fast DO, On: 26-Aug-2009 Intent Martha A Fast DO, Martha A Comments: good effort and curve normal Pulse Oximetry ([id number])By: Fast DO, On: 26-Aug-2009 Intent Martha A Fast DO, Martha A Comments: 99 Radiology - Chest- PA and LatBy: On: 26-Aug-2009 Intent Fast DO, Martha A Fast DO, Martha A EKG ([id number])By: Fast DO, Martha A On: 02-Jul-2009 Intent Fast DO, Martha A Comments: ekg showed normal sinus rhythym, normal axis, no acute st/t wave changes rsr apc Breast Screening - BilateralBy: On: 11-Jun-2009 Intent Fast DO, Martha A Fast DO, Martha A Planned Medications INFUSION, NORMAL SALINE SOLUTION , 1000 CC Ordered: 21-Apr-2017 Pending Fast DO, Martha A Fast DO, Martha A INFUSION, NORMAL SALINE SOLUTION , 1000 CC Ordered: 21-Apr-2017 Pending Fast DO, Martha A Fast DO, Martha A INJECTION, CEFTRIAXONE SODIUM, PER 250 MG Ordered: 06-Mar-2015 Pending Fast DO, Martha A Fast DO, Martha A INJECTION, METHYLPREDNISOLONE SODIUM SUCCINATE, UP TO 125 MG Ordered: 16-Dec-2015 Pending Fast DO, Martha A Fast DO, Martha A INJECTION, PROLIA Ordered: 26-Feb-2016 Pending Fast DO, Martha A Fast DO, Martha A INJECTION, PROLIA Ordered: 04-Nov-2016 Pending Fast DO, Martha A Fast DO, Martha A INJECTION, PROLIA Ordered: 18-May-2017 Pending Fast DO, Martha A Fast DO, Martha A INJECTION, PROLIA Ordered: 05-Dec-2017 Pending Fast DO, Martha A Fast DO, Martha A Instructions Name Dates Details Dysuria : How to access health information online Indication: Dysuria Dysuria : How to access health information online - Detail Indication: Dysuria Dysuria : Patient Instructions Indication: Dysuria BMI 28.0-28.9,adult : How to access health information online Indication: BMI 28.0-28.9,adult BMI 28.0-28.9,adult : How to access health information online - Detail Indication: BMI 28.0-28.9,adult BMI 28.0-28.9,adult : Patient Instructions Indication: BMI 28.0-28.9,adult Anxiety : How to access health information online - Detail Indication: Anxiety Anxiety : How to access health information online Indication: Anxiety Anxiety : Patient Instructions Indication: Anxiety Headache, acute : How to access health information online Indication: Headache, acute Headache, acute : How to access health information online - Detail Indication: Headache, acute Headache, acute : Patient Instructions Indication: Headache, acute Herpes zoster without complication : How to access health information online Indication: Herpes zoster without complication Herpes zoster without complication : How to access health information online - Detail Indication: Herpes zoster without complication Herpes zoster without complication : Patient Instructions Indication: Herpes zoster without complication Left-sided face pain : How to access health information online Indication: Left-sided face pain Left-sided face pain : How to access health information online - Detail Indication: Left-sided face pain Left-sided face pain : Patient Instructions Indication: Left-sided face pain Acute headache : How to access health information online Indication: Acute headache Acute headache : How to access health information online - Detail Indication: Acute headache Acute headache : Patient Instructions Indication: Acute headache Smoker : How to access health information online Indication: Smoker Smoker : How to access health information online - Detail Indication: Smoker Smoker : Patient Instructions Indication: Smoker BMI 23.0-23.9, adult : How to access health information online Indication: BMI 23.0-23.9, adult BMI 23.0-23.9, adult : How to access health information online - Detail Indication: BMI 23.0-23.9, adult BMI 23.0-23.9, adult : Patient Instructions Indication: BMI 23.0-23.9, adult BMI 23.0-23.9, adult : How to access health information online Indication: BMI 23.0-23.9, adult BMI 23.0-23.9, adult : How to access health information online - Detail Indication: BMI 23.0-23.9, adult BMI 23.0-23.9, adult : Patient Instructions Indication: BMI 23.0-23.9, adult BMI 23.0-23.9, adult : How to access health information online Indication: BMI 23.0-23.9, adult BMI 23.0-23.9, adult : How to access health information online - Detail Indication: BMI 23.0-23.9, adult BMI 23.0-23.9, adult : Patient Instructions Indication: BMI 23.0-23.9, adult BMI between 19-24,adult : How to access health information online Indication: BMI between 19-24,adult BMI between 19-24,adult : How to access health information online - Detail Indication: BMI between 19-24,adult BMI between 19-24,adult : Patient Instructions Indication: BMI between 19-24,adult Urinary frequency : How to access health information online Indication: Urinary frequency Urinary frequency : How to access health information online - Detail Indication: Urinary frequency Urinary frequency : Patient Instructions Indication: Urinary frequency Smoker : How to access health information online Indication: Smoker Smoker : How to access health information online - Detail Indication: Smoker Smoker : Patient Instructions Indication: Smoker Sore throat : How to access health information online Indication: Sore throat Sore throat : How to access health information online - Detail Indication: Sore throat Sore throat : Patient Instructions Indication: Sore throat BMI between 19-24,adult : How to access health information online Indication: BMI between 19-24,adult BMI between 19-24,adult : How to access health information online - Detail Indication: BMI between 19-24,adult BMI between 19-24,adult : Patient Instructions Indication: BMI between 19-24,adult Impaired fasting glucose : How to access health information online Indication: Impaired fasting glucose Impaired fasting glucose : How to access health information online - Detail Indication: Impaired fasting glucose Impaired fasting glucose : Patient Instructions Indication: Impaired fasting glucose Abdominal pain, acute, right upper quadrant (Renamed from Acute abdominal pain in right upper quadrant) : How to access health information online Indication: Abdominal pain, acute, right upper quadrant (Renamed from Acute abdominal pain in right upper quadrant) Abdominal pain, acute, right upper quadrant (Renamed from Acute abdominal pain in right upper quadrant) : How to access health information online - Detail Indication: Abdominal pain, acute, right upper quadrant (Renamed from Acute abdominal pain in right upper quadrant) Abdominal pain, acute, right upper quadrant (Renamed from Acute abdominal pain in right upper quadrant) : Patient Instructions Indication: Abdominal pain, acute, right upper quadrant (Renamed from Acute abdominal pain in right upper quadrant) Acquired hypothyroidism : How to access health information online Indication: Acquired hypothyroidism Acquired hypothyroidism : How to access health information online - Detail Indication: Acquired hypothyroidism Acquired hypothyroidism : Patient Instructions Indication: Acquired hypothyroidism Acute nonintractable headache, unspecified headache type : How to access health information online Indication: Acute nonintractable headache, unspecified headache type Acute nonintractable headache, unspecified headache type : How to access health information online - Detail Indication: Acute nonintractable headache, unspecified headache type Acute nonintractable headache, unspecified headache type : Patient Instructions Indication: Acute nonintractable headache, unspecified headache type Chronic intractable headache, unspecified headache type : How to access health information online Indication: Chronic intractable headache, unspecified headache type Chronic intractable headache, unspecified headache type : How to access health information online - Detail Indication: Chronic intractable headache, unspecified headache type Chronic intractable headache, unspecified headache type : Patient Instructions Indication: Chronic intractable headache, unspecified headache type Other hyperlipidemia : How to access health information online Indication: Other hyperlipidemia Other hyperlipidemia : How to access health information online - Detail Indication: Other hyperlipidemia Other hyperlipidemia : Patient Instructions Indication: Other hyperlipidemia Acute ethmoidal sinusitis, recurrence not specified : How to access health information online Indication: Acute ethmoidal sinusitis, recurrence not specified Acute ethmoidal sinusitis, recurrence not specified : How to access health information online - Detail Indication: Acute ethmoidal sinusitis, recurrence not specified Acute ethmoidal sinusitis, recurrence not specified : Patient Instructions Indication: Acute ethmoidal sinusitis, recurrence not specified Acute bacterial bronchitis : How to access health information online Indication: Acute bacterial bronchitis Acute bacterial bronchitis : How to access health information online - Detail Indication: Acute bacterial bronchitis Acute bacterial bronchitis : Patient Instructions Indication: Acute bacterial bronchitis Other hyperlipidemia : DISCONTINUED - LIPID PANEL (62117) Indication: Other hyperlipidemia BMI between 19-24,adult : How to access health information online Indication: BMI between 19-24,adult BMI between 19-24,adult : How to access health information online - Detail Indication: BMI between 19-24,adult BMI between 19-24,adult : Patient Instructions Indication: BMI between 19-24,adult Other hyperlipidemia : How to access health information online Indication: Other hyperlipidemia Other hyperlipidemia : How to access health information online - Detail Indication: Other hyperlipidemia Other hyperlipidemia : Patient Instructions Indication: Other hyperlipidemia Anxiety : How to access health information online Indication: Anxiety Anxiety : How to access health information online - Detail Indication: Anxiety Anxiety : Patient Instructions Indication: Anxiety Anxiety : How to access health information online Indication: Anxiety Anxiety : How to access health information online - Detail Indication: Anxiety Anxiety : Patient Instructions Indication: Anxiety Pneumonia, bacterial : How to access health information online Indication: Pneumonia, bacterial Pneumonia, bacterial : How to access health information online - Detail Indication: Pneumonia, bacterial Pneumonia, bacterial : Patient Instructions Indication: Pneumonia, bacterial Pharyngitis, acute : How to access health information online Indication: Pharyngitis, acute Pharyngitis, acute : How to access health information online - Detail Indication: Pharyngitis, acute Pharyngitis, acute : Patient Instructions Indication: Pharyngitis, acute Other hyperlipidemia : How to access health information online Indication: Other hyperlipidemia Other hyperlipidemia : How to access health information online - Detail Indication: Other hyperlipidemia Other hyperlipidemia : Patient Instructions Indication: Other hyperlipidemia Sinusitis : Patient Instructions Indication: Sinusitis Acquired hypothyroidism : Patient Instructions Indication: Acquired hypothyroidism Upper Respiratory Infection : Patient Instructions Indication: Upper Respiratory Infection Anxiety : Patient Instructions Indication: Anxiety Anxiety : Patient Instructions Indication: Anxiety Pain in unspecified hip : Patient Instructions Indication: Pain in unspecified hip Pain in unspecified hip : Patient Instructions Indication: Pain in unspecified hip Dysuria : How to access health information online Indication: Dysuria Dysuria : How to access health information online - Detail Indication: Dysuria Dysuria : Patient Instructions Indication: Dysuria Cough : Patient Instructions Indication: Cough Anxiety : Patient Instructions Indication: Anxiety Cough : Patient Instructions Indication: Cough Anxiety : Patient Instructions Indication: Anxiety Other signs and symptoms in breast : Patient Instructions Indication: Other signs and symptoms in breast Anxiety : Patient Instructions Indication: Anxiety Dysuria : Patient Instructions Indication: Dysuria Fatigue : Patient Instructions Indication: Fatigue Bronchitis, acute : Patient Instructions Indication: Bronchitis, acute Bronchitis, acute : Patient Instructions Indication: Bronchitis, acute Low back pain : Patient Instructions Indication: Low back pain Fatigue : Patient Instructions Indication: Fatigue Fatigue : Patient Instructions Indication: Fatigue Palpitations : Patient Instructions Indication: Palpitations Syncope : Patient Instructions Indication: Syncope Encounters Office Visit On: 15-Jan-2018 8:30 Encounter Diagnosis: Hematuria End: 15-Jan-2018 21:25 [facility] Office Visit On: 08-Jan-2018 11:01 Encounter Reason: Hematuria - Symptoms include narda colored urine, dysuria, frequency, flank pain and abdominal pain. Onset was week(s) ago. The patient describes this as unchanged. Associated symptoms include fever and End: 08-Jan-2018 21:09 nausea. Current treatment includes ciprofloxacin (kelfex, just finished on monday). Note for Hematuria: u went to [facility] last week- and urine was cloudy and looked like rotted beat juice-last wee k temp was 102- temp this am 101.2- took tylenol- she said not been highly sexually active and abdomen hurts- both flanks hurt but right greater than left- this has been worsening over last 4 -5 days hu rts more there than in bladder and she did feel better and urine looked better with keflex - took last pill sat - blood started again todayEncounter Diagnosis: Smoker, BMI 23.0-23.9, adult, Dysuria, Right flank pain [facility] Review On: 05-Dec-2017 9:10 Encounter Reason: Physical female exam - General health: feels well with minor complaints, has decreased energy level and is sleeping well. The patient's appetite is normal. Nutrition: normal/adequate. Exercises 4 days p er week. Sleeps on average 6 hours per night. Elimination problems include constipation and diarrhea. Safety measures include appropriate use of safety belts and home smoke detectors (Co detectors too). Current emotional problems include anxiety, depression and sleep disturbances. screening, colonoscopy (q 3 years 2015 - due 2018), screening, mammography (2017), screening, Pap smear (hysterectomy) and screening, visual acuity (Dr. Carranza 2017 - goes back in january (maybe december)). Note for Physical exam: bp good weight stble- SHETRIED TO GO DOWN TO 4 MG OF PREDNISONE AND WAS BAD SO STAYING ON 5 - anxiety pretty good- on hysingula and working better- less pain eb and flowEncounter Diagnosis: Smoker, BMI 28.0-28.9,adult, [facility] WELLNESS EXAM, Impaired fasting glucose, Acquired hypothyroidism, Primary adrenocortical insufficiency, Other hyperlipidemia, Osteoporosis, Thyroid nodule (241.0) [facility] Office Visit On: 10-Nov-2017 10:46 Encounter Reason: Follow up tests - Date: (11/06 MRI brain). Note for Discuss procedure results: she is now on propanolol from Dr Hampton office - she said helped kendall and helped anxiety and her bp and pulse is ok- it End: 12-Nov-2017 22:15 helped her face relax- she will ultimately try to wean off diazepam- doing alot better so she not sure she wants to see neurolgoist and balance issue better too- she will see how next few weeks goes an d decides if she feels like she needs to see neuroEncounter Diagnosis: Smoker, BMI 23.0-23.9, adult, Anxiety (300.00), Headache, acute, Acquired hypothyroidism, Impaired fasting glucose, Vitamin D deficiency, Other hyperlipidemia [facility] Office Visit On: 01-Nov-2017 10:07 Encounter Reason: Follow up for chronic medical issues - The patient does not feel well (getting dizzy again. Also ??has been having bad headaches/migraines again for the past couple weeks, this past week was really bad. End: 02-Nov-2017 22:08 ), has decreased energy level and is sleeping well (with aid of her medications). Patient has been compliant with instructions. Current medication use: no side effects and compliant with dosing regimen. Patient sleeps 6 (interuppted hours) hours per night. Nutrition: balanced diet, supplemental vitamins and low salt diet. The medical issues the patient is following up for include All identified proble ms below, gastric reflux, high cholesterol, hypothyroid, osteoporosis/osteopenia and other (anxiety, arthritis, spinal stenosis, ddd). Note for Follow up for chronic medical issues: weight down 5 poun ds - she was trying to quit smoking- she craves ice cream- so thats why trigs up- she saw Dr Parry and he put her on viibryd- she hasnt yet started it but did like him- she had another spell- bp kendall s been good- she ws standing at sink- doing dishes and felt like was going to fall back- she actually wasnt dizzy but had like tunnel of light- was pale and per daughter pulse was thready and slow- but not sweaty- or chest pain - or palpitations- she got sharp pain in head then and then pain in back of head and felt like migraine coming on - then felt ok rest of day other than headache then mon and felt lack of appetitie and then mon night woke up middle of night with terrible migraine- headache persisted thru week monday felt off balance- and had another time when was falling off to side- left side- she feels like doing ok on 5 mg of prednisone, [ADDITIONAL REASON] Follow up tests - Date: (10/28 blood work). Encounter Diagnosis: Smoker, BMI 23.0-23.9, adult, Need for prophylactic vaccination and inoculation against influenza (Renamed from Need for immunization against influenza), Anxiety (300.00), Headache, acute, Other hyperlipidemia, Adrenal insufficiency, Impaired fasting glucose, Osteoporosis [facility] Office Visit On: 09-Oct-2017 11:29 Encounter Reason: Follow up acute care visit - The patient feeling better since last seen (is having ringing in L ear and watering in L eye. Would like to speak about medications. Is feeling overall better). Patient has End: 09-Oct-2017 21:44 been compliant with instructions. Current medication use: no side effects and compliant with dosing regimen. Note for Follow up acute care visit: - little red spot near left nose -face was swollen red hot and bumpy- has gotten alot better- the pain is not real bad- some pain around eye and painful numb spot bottom lip- but now ringing in ear - and left eye gets like watery and flashes- she doesnt fe el she can take gabapentin - got side effects in past- and doesnt want to try lyrica- she went back to endo and she wants her to try to go off the prednisone again- she had been off completely a few wee ks- but was using inhaler- she is down to 2 mg and doesnt feel like she can function- feels like cant think straight- she is going really slow on wean- dizzy again- no energy- she doesnt want to go back to the endo doctor- she not feel like really giving her answers- she saw Dr Braswell again- and he sent her to psychiatrist- he thought initiallyhad ms- he changed tune when her spinal tap didnt blatantly show it- she knows she has anxiety issues she doesnt want to go to psychiatrist and has done years of counselingEncounter Diagnosis: Herpes zoster without complication, BMI 24.0-24.9, adult, Smoker, Impaired fasting glucose, Left-sided face pain, Other hyperlipidemia, Osteoporosis, Vitamin D deficiency, Adrenal insufficiency [facility] Office Visit On: 22-Sep-2017 14:17 Encounter Reason: Facial Pain - Symptoms include facial pain. The pain is located in the left forehead, in the left lower face and in the left jaw. The pain radiates to the mouth, to the left lower face, to the left jaw End: 22-Sep-2017 14:58 and to the left periorbital area. The patient describes the pain as burning, shooting and stinging (pins and needles). Onset was 1 day(s) ago. The patient describes symptoms as worsening. Associated sym ptoms include headache, while associated symptoms do not include nausea or vomiting.Encounter Diagnosis: BMI 24.0-24.9, adult, Smoker, Left-sided face pain, Herpes zoster without complication [facility] Office Visit On: 19-Jul-2017 14:59 Encounter Diagnosis: Anxiety (300.00) End: 20-Jul-2017 21:27 [facility] Office Visit On: 28-Jun-2017 9:35 Encounter Reason: Follow up tests - Date: (06/22/17 blood work)., [ADDITIONAL REASON] Follow up for chronic medical issues - The patient feels well with minor complai End: 29-Jun-2017 21:29 nts (same chronic issues. Also has an infection in L foot, big toe that has been present x2 months.), has decreased energy level and is sleeping poorly (interupted). Patient has been compliant with inst ructions. Current medication use: no side effects and compliant with dosing regimen. Patient sleeps 6 (interuppted hours) hours per night. Nutrition: balanced diet, supplemental vitamins and low salt di et. The medical issues the patient is following up for include All identified problems below, gastric reflux, high cholesterol, hypothyroid, osteoporosis/osteopenia and other (anxiety, arthritis, spinal stenosis, ddd). Note for Follow up for chronic medical issues: fell down steps week and half ago- doesnt remember it happening- and had no prior symptoms but was awake- when she hit the floor- hadnt taken valium- hit head on something- was carpeted- not daily headaches but last two days headache bad headache- she was supposed to have week test of monitoring for seizure from [facility] and test never got done- last week in middle of night bit lip and was bloody - now wonder if seizure again- he wanted her to see psychiatrist- so trying to get this set up- tolerated prolia- occ gerd not weekly- Encounter Diagnosis: Smoker, BMI 24.0- 24.9, adult, Fall down steps, Acute headache, Wrist pain, acute, right, Impaired fasting glucose, Primary adrenocortical insufficiency, Other hyperlipidemia, Transient alteration of awareness, Acquired hypothyroidism, Vitamin D deficiency, Anxiety (300.00), Osteoporosis, Encounter for screening mammogram for breast cancer (Renamed from Encounter for screening mammogram for malignant neoplasm of breast), Thrush, Ingrown toenail of left foot with infection [facility] Office Visit On: 18-May-2017 10:19 Encounter Reason: Injections - The medication the patient is here to receive is other (prolia).Encounter Diagnosis: Osteoporosis End: 19-May-2017 8:47 [facility] Phone Encounter On: 01-May-2017 10:30 Encounter Diagnosis: Right lower lobe pneumonia End: 01-May-2017 10:33 [facility] Office Visit On: 21-Apr-2017 10:07 Encounter Reason: Follow up acute care visit - The patient does not feel well (very fatigued, muscle weakness, sore throat, having tenderness on R side of abdomen where her pneumonia was located. Some productive cough st End: 23-Apr-2017 18:08 ill) and improving. Patient has been compliant with instructions. Current medication use: no side effects (finished last levaquin today and still taking prednisone). Note for Follow up acute care visit : she went to er and diagnosed with rll pneumonia and she has had pain in that location since she started with the flu on apr 02 - - she didnt come in for flu- was on 2.5 mg of pred so we increased that thinking she ??might have adrenal nsuff - she just starting to feel a bit better today - coughing more at night thinks draining- eyes feeling some better- stll feels really dry mouth very dry trying to drink no diarrhea trying to eat- Encounter Diagnosis: Smoker, Right lower lobe pneumonia, Fatigue, Adrenal insufficiency, Dehydration [facility] Phone Encounter On: 19-Apr-2017 16:43 Encounter Diagnosis: Fatigue End: 19-Apr-2017 16:52 [facility] Office Visit On: 07-Mar-2017 10:50 Encounter Reason: Follow up for chronic medical issues - The patient feels well with minor complaints (same chronic issues. Also has sinus/respiratory issues x 10-12 days. Started in head and throat and went down to ches End: 07-Mar-2017 14:47 t. Productive cough, colored mucus, sinus pressure, runny/stuffy nose, scratchy throat. Nothing OTC), has decreased energy level and is sleeping poorly (interupted- wakes up to use restroom). Patient kendall s been compliant with instructions. Current medication use: no side effects and compliant with dosing regimen. Patient sleeps 6 hours per night. Nutrition: balanced diet, supplemental vitamins and low s alt diet. The medical issues the patient is following up for include All identified problems below, gastric reflux, high cholesterol, hypothyroid, osteoporosis/osteopenia and other (anxiety, arthritis, spinal stenosis, ddd). Note for Follow up for chronic medical issues: she saw french and he reviewed everything- and is sending her to [facility] to monitor and see if has spell- bp good getting left shoulder aching like when had cellulitis but not red- couldnt get off the gabapentin pain came back trying to use lowest dose- bp is good- has followup soon with endo and on 5 mg of pred- and saw danni had skin check- not taking 2 valium routinely- no gerdEncounter Diagnosis: Smoker, Acquired hypothyroidism, Anxiety (300.00), BMI 23.0-23.9, adult, Postherpetic neuralgia, Thyroid nodule (241.0), Sinusitis, Impaired fasting glucose, Other hyperlipidemia [facility] Office Visit On: 30-Dec-2016 16:06 Encounter Diagnosis: Shingles End: 30-Dec-2016 16:09 [facility] Office Visit On: 23-Dec-2016 14:21 Encounter Reason: Skin Problems - The onset of the skin problems has been acute and they have been occurring in a persistent pattern for 4 days. The course has been decreasing. The problem is characterized as a change in End: 25-Dec-2016 15:17 skin color. Lesions are described as red. The spots were first seen on the upper extremity. There has been associated pain, while there has been no chills, fever or itching. Note for Skin problems: I ts either from pneumonia shot or skin biopsy [address] Meyer. started tue after shot next day warm swollen red armpit achey arm ache- no fever- not at site of shot or biopsyaslo saw Carlitos larsen he ordered another mri of neck thoracic may need surgery saw nicolasa and thinks maybe adrenal issue from steroid shots/and thinks thyroid from that- weaning off prednsione- and doing blood and doing new adrenal tests - and addressed her osteoporosis Encounter Diagnosis: BMI 23.0-23.9, adult, Smoker, Cellulitis of arm, Cervical radiculopathy (723.4) [facility] Office Visit On: 20-Dec-2016 15:59 Encounter Reason: Injections - The medication the patient is here to receive is pneumovax IM.Encounter Diagnosis: Pneumococcal vaccination given End: 20-Dec-2016 21:43 [facility] Office Visit On: 29-Nov-2016 9:04 Encounter Reason: Physical female exam - Last seen between 1-3 months ago. General health: feels well with minor complaints and has decreased energy level. The patient's appetite is normal. Nutrition: normal/adequate. Ex End: 20-Dec-2016 13:24 ercises 4 days per week. Sleeps on average 6 hours per night. Normal bowel and bladder habits. Safety measures include appropriate use of safety belts and home smoke detectors. Current emotional problem s include anxiety and depression. screening, colonoscopy (q 3 years 2015), screening, mammography (2016), screening, Pap smear (hysterectomy) and screening, visual acuity (Dr. Carranza is past due). Note f or Physical exam: she had prolia and did well- and bp is good- [facility] wait until gets worse-with the valium only urinating twice at night- we discusswed myrbetrique and side effects bp etc and she havingmuscle aching with higher dose simvistatin wants to try crestorEncounter Diagnosis: BMI 23.0-23.9, adult, Low back pain (724.2), Smoker, Cervical radiculopathy (723.4), Other hyperlipidemia, Transient alteration of awareness, [facility], Need for prophylactic vaccination and inoculation against influenza (Renamed from Need for immunization against influenza), Neoplasm of uncertain behavior of skin, Impaired fasting glucose, Acquired hypothyroidism [facility] Office Visit On: 04-Nov-2016 9:29 Encounter Reason: Injections - The medication the patient is here to receive is other (flu).Encounter Diagnosis: Osteoporosis End: 04-Nov-2016 10:04 [facility] Phone Encounter On: 24-Oct-2016 9:21 Encounter Diagnosis: Acute nonintractable headache, unspecified headache type End: 24-Oct-2016 9:39 [facility] Visit On: 12-Oct-2016 10:20 Encounter Reason: Follow up for chronic medical issues - The patient feels well with minor complaints (same chronic issues), has good energy level and is sleeping poorly (interupted- wakes up to use restroom). Patient kendall End: 14-Oct-2016 8:00 s been compliant with instructions. Current medication use: no side effects and compliant with dosing regimen. Patient sleeps 6 hours per night. Nutrition: balanced diet, supplemental vitamins and low s alt diet. The medical issues the patient is following up for include All identified problems below, gastric reflux, high cholesterol, hypothyroid, osteoporosis/osteopenia and other (anxiety, arthritis, spinal stenosis, ddd). Note for Follow up for chronic medical issues: her sugar up - was on radha ate lot of sugar doesnt normally do this - has endo appt soon as could get in at with particular end o was oct and saw rheum- she is very fatigued- per referral letter doesnt have ms- she thinks lexapro and buspar good only taking 4 tabs a day- neck still issue she thinks she is going to have to go arely k to Dr Wilburn- she thinks the valium is helping though at night, [ADDITIONAL REASON] Follow up, Laboratory Test Results - Date: (09/29/16). Encounter Diagnosis: BMI between 19-24,adult, Smoker, Anxiety (300.00), Primary adrenocortical insufficiency, Acquired hypothyroidism, Impaired fasting glucose, Other hyperlipidemia, Cervical radiculopathy (723.4), Hyponatremia [facility] Phone Encounter On: 14-Sep-2016 11:59 Encounter Diagnosis: Acute nonintractable headache, unspecified headache type End: 14-Sep-2016 12:03 [facility] Visit On: 01-Sep-2016 13:35 Encounter Reason: Follow up tests - Diagnostic tests include ECHO, other (labs) and X-Ray (cervical spine). Date: (08/09/16). Note for Discuss procedure results: urinary freq has some improve in volume still freq - did End: 05-Sep-2016 9:46 get to [facility]- supposed to see endo doesnt think thyroid right- and doesnt have ms- seeing urolgoist oct 26- - saw neuro at [facility]- - they think white matter partly migrainous- they looked at her mris - they going to send to staffing mgr as well- the valium reallyhelping her sleep and neck and we discussed the chest symptoms still gets under right breast and occ sharp thru chest - - still smoking discouraged- cough betterEncounter Diagnosis: Smoker, BMI between 19-24,adult, Atypical chest pain, Acquired hypothyroidism, Impaired fasting glucose, Other hyperlipidemia, Neck pain (723.1), Abnormal EEG [facility] Phone Encounter On: 10-Aug-2016 13:59 Encounter Diagnosis: Acquired hypothyroidism End: 10-Aug-2016 14:00 [facility] Visit On: 08-Aug-2016 15:10 Encounter Reason: Cold Symptoms - Symptoms include nasal congestion, runny nose, postnasal drainage, hoarseness, productive cough and facial pain, while symptoms do not include sore throat, facial pressure or headache. O End: 12-Aug-2016 9:02 nset was gradual week(s) ago. There is no known event that preceded symptom onset. The symptoms occur constantly. The patient describes this as moderate in severity and worsening. Associated symptoms in clude fatigue and nausea, while associated symptoms do not include ear pain, wheezing, shortness of breath, vomiting, diarrhea, fever or chills. The patient is not currently being treated for this problem., [ADDITIONAL REASON] Dysuria - The onset of the dysuria has been sudden and has been occurring in a persistent pattern for days. The course has been constant. The quality of the pain is described as a d iscomfort The dysuria is described as being located in the suprapubic area (pt's bladder hurts). The dysuria radiates to the left flank and right flank. The symptoms have been associated with flank pain , frequency, incontinence, past history of urinary tract infections and urgency, while the symptoms have not been associated with chills or fever. Note for Dysuria: no increase ??caffeine- 1-2 cups a day- hurts to urinate and urgency- , [ADDITIONAL REASON] Chest Pain - Note for Chest pain: yesterday chest pain straight thru and down left arm- she had this before doesnt matter what doing just comes on- can happen several times in a d ay- happens cuple minutes at a time- if she moves a certain positon will happen- -she has had this intermittently not sob or hurt to breath - intermittently leg swelling at end of day- and coughing more as day goes on- Encounter Diagnosis: BMI between 19-24,adult, Smoker, Edema, unspecified type, Urinary frequency, Acquired hypothyroidism, Encounter for screening mammogram for breast cancer (Renamed from Encounter for screening mammogram for malignant neoplasm of breast), Joint pain, Wheezing, Neoplasm of uncertain behavior of skin, Atypical chest pain [facility] Visit On: 18-Jul-2016 13:05 Encounter Reason: Follow up, Laboratory Test Results - Date: (06/17/16). Current symptoms/reason for visit include/s Symptoms include other (edema in ankles towards evening). Note for Follow up to discuss laboratory test End: 18-Jul-2016 21:37 results: Pt feels the singular is causing water retention?? in her ankles towards evening and in her fingers, rings tight. Pt states the Valium is working great for her sleep and muscle spasms!! Only getting up once a night and no more incontinence. Its amazing- she is sleeping so much better- no more bladder spasms and helping her pain at night - she has more energy in the am and more alert - - h er daytime urgency is gone as well- her neck and shoulder better - still pain but improved comparativley- she saw pain management this am -- they are not giving her injection- she has to call to get pro ketan and she will do this- she apparently still has spells in afternoon where sitting there eaitng or drinking and just goes out not sure if sleep no viual seizure but does drool- wakes up littleout of it- question narcolepsy/seizure Encounter Diagnosis: Smoker, BMI between 19-24,adult, Neck pain, Transient alteration of awareness, Edema, unspecified type [facility] Visit On: 27-Jun-2016 9:57 Encounter Reason: Follow up tests - Diagnostic tests include chest X-ray, other (labs) and X-Ray (cervical spine). Date: (06/23/16). Note for Discuss procedure results: pain swelling middle of posterior cervical- and fe End: 27-Jun-2016 22:27 els really tight in muscles -- mid last week started- she was helping her daughter - and had mechanical fall - didnt fall on neck - didnt hurt anything- was 2 days before- she taking muscle relaxant- pain radiating around down shoulder into rib cage , [ADDITIONAL REASON] Sore throat - The onset of the sore throat has been sudden and has been occurring in a persistent pattern for 2 days. The course has been unchanged. The symptoms have been associate d with change in voice, cough, difficulty in swallowing, fever, post-nasal drip, recent contact with a person with sore throat and runny nose, while the symptoms have not been associated with chills, ea r pain, sinus pain or swelling of neck glands. Note for Sore throat: pt's grandson sick and his step sister has strep throat. Encounter Diagnosis: Sore throat, BMI between 19-24,adult, Smoker, Neck pain [facility] Phone Encounter On: 23-Jun-2016 11:50 Encounter Diagnosis: Neck pain (723.1) End: 23-Jun-2016 12:04 [facility] Visit On: 17-Jun-2016 13:03 Encounter Reason: Follow up, Laboratory Test Results - Date: (06/11/16). Current symptoms/reason for visit include/s Symptoms include other (feels the same as before- although the singular helps her better than the [facility] End: 19-Jun-2016 21:37 , the allergy sx continue as she is outside working a lot.). Note for Follow up to discuss laboratory test results: does feel the prednisone has made a difference ==felt better than did- seeing French thinks MS but doesnt have the oligoclonal bands so not going to treat her until see neuro at [facility]- specialist to help determine- he increased her topamax to 150 mg at night- has helped but still couple a week- she feels like spasm of bowel had episode the other dayEncounter Diagnosis: Smoker, BMI between 19-24,adult, Hyponatremia, Dysuria, Hypocalcemia, Allergic rhinitis (477.9), Acquired hypothyroidism, Abdominal pain, acute, right upper quadrant (Renamed from Acute abdominal pain in right upper quadrant) [facility] Office Visit On: 24-May-2016 11:01 Encounter Reason: Follow up tests - Diagnostic tests include other (hida scan) and ultrasound (liver). Date: (05/12/2016). Current symptoms include abdominal pain. Note for Discuss procedure results: still having epigas End: 26-May-2016 19:00 tric/right upper quad - one time ate fried fish filet and onset even before done - typically food nor specific activity make it worse- maybe radiates thru to back no blood in stool- tried tums no help- has omeprazole at home- no nausea vomiting diarrhea fever- she is on 4 mg of prednisone- has more fatigue 3 weeks in [place] on wean- glands feel better in neck but still feels liek if swallows pills li kes it is narrow - taking zyrtec ddaily and still drainageEncounter Diagnosis: Abdominal pain, acute, right upper quadrant (Renamed from Acute abdominal pain in right upper quadrant), BMI between 19-24,adult, Smoker, Impaired fasting glucose, Anxiety (300.00), Allergic rhinitis (477.9), Thyroid nodule (241.0) [facility] Phone Encounter On: 16-May-2016 15:33 Encounter Diagnosis: Abdominal pain, acute, right upper quadrant (Renamed from Acute abdominal pain in right upper quadrant) End: 16-May-2016 15:35 [facility] Visit On: 09-May-2016 10:56 Encounter Reason: Follow up for chronic medical issues - The patient feels well with minor complaints (re-address the random but often dizziness), has good energy level and is sleeping poorly (interupted- wakes up to use End: 09-May-2016 13:06 restroom). Patient has been compliant with instructions. Current medication use: no side effects and compliant with dosing regimen. Patient sleeps 4 hours per night. Nutrition: inappropriate diet, supp lemental vitamins and low salt diet. The medical issues the patient is following up for include All identified problems below, gastric reflux, high cholesterol, hypothyroid, osteoporosis/osteopenia and other (anxiety, arthritis, spinal stenosis, ddd). Note for Follow up for chronic medical issues: she wants to try to wean back off prednisone she is down to 5 mg for last 3 weeks- we addresedthat dizz iness got better with pred but she still wasnt to try weaning off- we uped her calcium to bid, [ADDITIONAL REASON] Follow up, Laboratory Test Results - Date: (05/03/16). , [ADDITIONAL REASON] Abdominal pain - Note for Pain: noticed recently pain precious right upper no nausea vomit change in bowels maybe slower Encounter Diagnosis: Acquired hypothyroidism, Smoker, BMI between 19-24,adult, Primary adrenocortical insufficiency, Hypocalcemia, Gastroesophageal reflux disease without esophagitis, Anxiety (300.00), Impaired fasting glucose, Other hyperlipidemia, Abdominal pain, acute, right upper quadrant (Renamed from Acute abdominal pain in right upper quadrant), Acute sinusitis [facility] Office Visit On: 09-Mar-2016 13:12 Encounter Reason: Follow up tests - Diagnostic tests include MRI (brain), other (labs) and X-Ray (hip). Date: (02/10/16 and 03/07/16). Current symptoms include headache. Note for Discuss procedure results: Headaches are End: 10-Mar-2016 22:17 basically the same - still there in the back but not having the facial pain like was-Doesnt have them 19/09 now but she has a headache at some point daily.- seeing [facility] this monday - and is going to loo k up mri- she is taking prednisone- and energy better headaches still there dizzy initially better and now coming back- she didnt think neurontin at higher dose helped so she will tell pain med doc to go back to 600 and retaining fluid Encounter Diagnosis: Acute nonintractable headache, unspecified headache type, BMI between 19-24,adult, Smoker, Primary adrenocortical insufficiency, Acquired hypothyroidism, Thyroid nodule (241.0), Hyponatremia [facility] Office Visit On: 26-Feb-2016 11:43 Encounter Reason: Injections - The medication the patient is here to receive is other (prolia).Encounter Diagnosis: Osteoporosis End: 28-Feb-2016 13:25 [facility] Visit On: 08-Feb-2016 15:14 Encounter Reason: Follow up Meds - The patient feels well with minor complaints (headaches continue), has decreased energy level and is sleeping poorly. Patient has been compliant with instructions. Current medication End: 08-Feb-2016 19:01 e: no side effects and compliant with dosing regimen. Patient sleeps 4 hours per night. Note for Follow up Meds: Pt seen Dr. Mata and had an MRI which showed 3 more bulging disc in her neck. No kennedy adela at this point, wants her to see a neurologist and treat the headaches. he does think its what is causing the pain but wants her to go back to pain managment- she has appt next week- so headaches no w more constant and now getting numbness right cheek and right lip- she noted a big improvement in her symptoms with respect to thinking- has more energy less fatigue - still some dizzy- Dr Dorsey did ad just her thryoid but not want to followup with her- she having more anxiety needing ativan daily stress with her health issues [facility] - Encounter Diagnosis: Chronic intractable headache, unspecified headache type, Smoker, BMI between 19-24,adult, Colon polyps, Hyponatremia, Primary adrenocortical insufficiency, Acquired hypothyroidism, Anxiety (300.00) [facility] Office Visit On: 11-Jan-2016 15:09 Encounter Reason: Follow up for chronic medical issues - The patient feels well with minor complaints (dizziness spells off and on- make her weak in limbs and shaky, tired which then causes her some anxiety), has good en End: 11-Jan-2016 21:18 ergy level and is sleeping poorly (interupted- wakes up to use restroom). Patient has been compliant with instructions. Current medication use: no side effects and compliant with dosing regimen. Patient sleeps 4 hours per night. Nutrition: inappropriate diet, supplemental vitamins and low salt diet. The medical issues the patient is following up for include All identified problems below, gastric reflu x, high cholesterol, hypothyroid, osteoporosis/osteopenia and other (anxiety, arthritis, spinal stenosis, ddd). Note for Follow up for chronic medical issues: anxiety bad again- more shaking inside in stead of mental anxiety- - trembling- goes first of jan for thryoid check - was hyper in july- so they lowered her med- we had tsted her for adrenal insuff before the 2 endo both said borderline- and no t treating her - she want to try treating adrenal insuff and see how feels, [ADDITIONAL REASON] Follow up, Laboratory Test Results - Date: (01/07/16). Encounter Diagnosis: Other hyperlipidemia, BMI between 19-24,adult, Smoker, Anxiety (300.00), Acquired hypothyroidism, Hyponatremia, Headache, Primary adrenocortical insufficiency, Gastroesophageal reflux disease without esophagitis, Impaired fasting glucose [facility] Visit On: 28-Dec-2015 13:03 Encounter Reason: Follow up hospital - Reason for ER visit: note: (URI- no cough though. High fever, bad headache and abd pain.). The patient feels well with minor complaints (entire abd is hurting her- headaches continu End: 28-Dec-2015 18:28 e. No fever since monday am.), has decreased energy level and is sleeping well. Patient has been compliant with instructions. Current medication use: no side effects and compliant with dosing regimen. P atient sleeps 6 hours per night. Note for Follow up hospital: mon night was feeling better on antiobitoc and then head started pounding and started body aching and teeth hurt- had to go to bed- felt h orrible- - her upper abd hurts if deep breath or press on-no ??nausea can eat and drink- had diarrhea but none for couple diarrhea- last temp monday am 101- now on levaquin- still headahce helps to take 3 ibuprofen and vicoden and 2 ativan- - no overt new neck symptoms not stiff- back to zyrtec- feels pressure ethmoid and hurts to press there- no diarrhea since sat and no vision changeEncounter Diagnosis: Acute ethmoidal sinusitis, recurrence not specified, Other elevated white blood cell (WBC) count, Nonspecific abdominal pain, Acute nonintractable headache, unspecified headache type [facility] Visit On: 16-Dec-2015 13:13 Encounter Reason: Cold Symptoms - Symptoms include nasal congestion, runny nose, sore throat, hoarseness, productive cough, facial pain and headache, while symptoms do not include facial pressure. Onset was gradual 2 wee End: 18-Dec-2015 12:30 k(s) ago. Onset followed exposure at home to someone with upper respiratory symptoms. The symptoms occur constantly. The patient describes this as worsening. Associated symptoms include fatigue and chil ls, while associated symptoms do not include ear pain, wheezing, shortness of breath, nausea, vomiting, diarrhea or fever. The patient is not currently being treated for this problem. Note for Cold sym ptoms: hasnt taken temp feels flushed face red ears then sweating off and on - cough dry - having to take sudafed otherwise alot of congestion- mostly in head starting to go into chestEncounter Diagnosis: Mild intermittent asthma with acute exacerbation, Wheezing, Acute bacterial bronchitis [facility] Office Visit On: 30-Nov-2015 16:49 Encounter Reason: Injections - The medication the patient is here to receive is other (flu).Encounter Diagnosis: Need for prophylactic vaccination and inoculation against influenza (Renamed from Need for immunization against influenza) End: 30-Nov-2015 21:03 [facility] Office Visit On: 29-Sep-2015 8:59 Encounter Reason: Physical female exam - General health: feels well with no complaints, has good energy level and is sleeping poorly (cause of back). The patient's appetite is normal. Nutrition: appropriate balanced diet End: 06-Oct-2015 14:44 . Exercises 7 days per week. Sleeps on average 6 (but its interupted) hours per night. Elimination problems include urinary incontinence (with back issues). Safety measures include appropriate use of sa fety belts and home smoke detectors. Current emotional problems include anxiety and sleep disturbances. screening, colonoscopy (due this year), screening, mammography (yearly), screening, Pap smear (monroe stewart had pap in long time) and screening, visual acuity (yearly). [facility] for Physical exam[facility]- she is seeing Dr Wilburn on for her back and gettig thoracic mri and sa w painmanagement stillnot comfortable- tried fosamax in past gaver her terrible side effects gi upset , [ADDITIONAL REASON] Follow up, Laboratory Test Results - Date: (08/2015- [facility] labs). Encounter Diagnosis: BMI between 19-24,adult, Smoker, [facility], Osteoporosis, Gastroesophageal reflux disease without esophagitis, Impaired fasting glucose, Other hyperlipidemia, Hyponatremia [facility] Visit On: 01-Sep-2015 8:05 Encounter Reason: Follow up tests - Diagnostic tests include mammography, other (labs and bone dexa) and X-Ray (hip). Date: (08/20/15). Note for Discuss procedure results: Pt also wants to talk about pain management. Do End: 01-Sep-2015 9:17 esnt feel like her pain is being managed.- she feels like she doesnt feel well when gets the steroid shots inher back they make her sugar go- up - she got temporary relief in her back and leg pain- but only lasted 10 days- they want her to come back in 2 weeks for more injections- she takes 2 vicoden a day- pain all across back and down both legs- she cant get 2 hours of consecutive sleep because of p ain- taking otc nsaids and tyelnol and not helping- last pt in last 1-2 years - does do routine exercises at home from her therapy- they changed her thryoid basd on last med- hurts more to sit and getting drop foot right - leg feels weak and numb Encounter Diagnosis: Other hyperlipidemia, Smoker, BMI between 19-24,adult, Lumbosacral radiculopathy due to degenerative joint disease of spine, Hypothyroidism, Urinary frequency, Hyponatremia [facility] Visit On: 06-Jul-2015 10:43 Encounter Reason: Follow up Meds - The patient feels well with minor complaints (anxiety is a lot better with the lexapro and ativan), has good energy level and is sleeping well (has nights where doesnt sleep good). Marina End: 06-Jul-2015 22:08 ent has been compliant with instructions. Current medication use: no side effects and compliant with dosing regimen. Patient sleeps 7 hours per night. Note for Follow up Meds: felt a difference quickl y doesnt want to go up on she feels doing better- and falling asleep better - she using occ mid afternoon buspar if feels like needs to - also review labs from 05/22/15Encounter Diagnosis: Anxiety (300.00), Other hyperlipidemia, Impaired fasting glucose, Osteoporosis, Encounter for screening mammogram for breast cancer (Renamed from Encounter for screening mammogram for malignant neoplasm of breast) [facility] Visit On: 05-Jun-2015 9:14 Encounter Reason: Anxiety - Symptoms include anxiety, fatigue, irritability and panic attacks, while symptoms do not include difficulty concentrating. Onset was gradual year(s) ago. Onset followed a family event (a lot o End: 07-Jun-2015 22:10 f issues). The symptoms occur frequently. The patient describes this as moderate in severity and worsening (in last 3 weeks). Note for Anxiety: daughter single mom with health concerns- and some other family issues of concern - she has done counseling and has the tools -to use - has good perspective- she is exercising rotuienly but is getting back injectsion with steroid not helping but had beforeEncounter Diagnosis: Anxiety (300.00) [facility] Office Visit On: 06-Mar-2015 10:01 Encounter Reason: Cough - Symptoms include cough, chills, fever, runny nose, stuffy nose and sore throat. The cough is described as brassy, moist and productive. Cough onset was gradual 2 week(s) ago. Symptoms are descri End: 10-Mar-2015 19:14 bed as worsening. Associated symptoms include hoarseness, while associated symptoms do not include headache. The patient is not currently being treated for this problem. Note for Cough: Pt did a sputu m culture with Abby at last visit and it came back Streptococcus. Pt is concerned that she may have this back.- got better but now coming back - she feeling like maybe pleurisy- scratchy both lower lung s-- she only took 10mg of pred a day- told needs pneumovax- temp 100 at night- doesnt feel as bad as did Encounter Diagnosis: Smoker, Pneumonia, bacterial [facility] Office Visit On: 09-Feb-2015 12:55 Encounter Reason: Cough - Symptoms include cough. The cough is described as brassy. Cough onset was gradual. Note for Cough: coughing stuff up Encounter Diagnosis: Pharyngitis, acute, Pneumonia, Cough End: 09-Feb-2015 14:36 [facility] Refill Request On: 03-Feb-2015 13:05 Encounter Diagnosis: GERD (gastroesophageal reflux disease) End: 03-Feb-2015 13:08 [facility] Office Visit On: 10-Dec-2014 9:04 Encounter Reason: Follow up for chronic medical issues - The patient feels well with minor complaints (same chronic issues, pain, fatigue, anxiety), has decreased energy level and is sleeping poorly (interupted- wakes up End: 11-Dec-2014 22:21 to use restroom). Patient has been compliant with instructions. Current medication use: no side effects and compliant with dosing regimen. Patient sleeps 6 (broken up) hours per night. Nutrition: inapp ropriate diet, supplemental vitamins and low salt diet. The medical issues the patient is following up for include All identified problems below, gastric reflux, high cholesterol, hypothyroid, osteoporo sis/osteopenia and other (anxiety, arthritis, spinal stenosis, ddd). Note for Follow up for chronic medical issues: weight stable and bp is good - breathing has been pretty good- she seeing [facility] nd has said has sluggish adrenal but not require meds- she is adjusting her thyroid- she is watching her thryoid nodule-- shelikes the buspar alot and does help still has anxiety but helps- sometimes ajit serrano doesnt get sleep so will take 2 buspar - thinks takes ativan - -takes everyother day - she would like to take the buspar more as needed- not routinely getting gerd, [ADDITIONAL REASON] Follow up, Laboratory Test Results - Date: (10/27/14). Encounter Diagnosis: Hyperlipidemia, Anxiety (300.00), Need for prophylactic vaccination and inoculation against influenza (Renamed from Need for immunization against influenza), GERD (gastroesophageal reflux disease), Osteopenia (733.90), Vitamin D deficiency, Lumbosacral radiculopathy due to degenerative joint disease of spine [facility] Office Visit On: 25-Sep-2014 11:55 Encounter Reason: Sinusitis/ - The duration of the symptoms are 2 weeks The course has been constant. The sinusitis/ has no relieving factors. Associated features include The symptoms have been associated with cough, ear End: 25-Sep-2014 12:27 pain, nasal discharge/stuffy nose and sinus pain.Encounter Diagnosis: Sinusitis [facility] Lab Order On: 27-Aug-2014 9:18 Encounter Diagnosis: Hypothyroidism (244.9), Vitamin D deficiency, Adrenal disorder, other End: 27-Aug-2014 9:30 [facility] Phone Encounter On: 30-Jun-2014 18:55 Encounter Diagnosis: Thyroid nodule (241.0) End: 30-Jun-2014 18:58 [facility] Phone Encounter On: 30-Jun-2014 9:35 Encounter Diagnosis: Hypothyroidism (244.9), Adrenal disorder, other, Vitamin D deficiency End: 30-Jun-2014 9:41 [facility] Phone Encounter On: 27-Jun-2014 15:15 Encounter Diagnosis: Unspecified Diagnosis End: 27-Jun-2014 15:18 [facility] Office Visit On: 17-Jun-2014 11:17 Encounter Reason: Follow up for chronic medical issues - The patient feels well with minor complaints (sleeping issue continues- wants something to help- can she take the trazodone again?), has decreased energy level and End: 17-Jun-2014 22:28 is sleeping poorly (interupted- wakes up to use restroom). Patient has been compliant with instructions. Current medication use: no side effects and compliant with dosing regimen. Patient sleeps 6 (bro cathy up) hours per night. Nutrition: inappropriate diet, supplemental vitamins and low salt diet. The medical issues the patient is following up for include All identified problems below, gastric reflux, high cholesterol, hypothyroid, osteoporosis/osteopenia and other (anxiety, arthritis, spinal stenosis, ddd). Note for Follow up for chronic medical issues: she thinks the buspirone helps anxiety- she still has trouble falling asleep- bbp good no routine gerd - is trying to see new endo - , [ADDITIONAL REASON] Follow up, Laboratory Test Results - Date: (06/10/14). Encounter Diagnosis: Hypothyroidism (244.9), Anxiety (300.00), SCREENING FOR BREAST CANCER (V76.10), Gerd (530.81), Hyperlipidemia (272.4), Degenerative Disc Disease - Lumbar (722.52) [facility] Office Visit On: 09-May-2014 10:03 Encounter Reason: Cold Symptoms - Symptoms include nasal congestion, runny nose, productive cough, facial pressure, facial pain and headache, while symptoms do not include scratchy throat or sore throat. Onset was sudden End: 11-May-2014 18:43 1 week(s) ago. The symptoms occur constantly. The patient describes this as worsening. Associated symptoms include ear pain, while associated symptoms do not include wheezing, shortness of breath, naus ea, vomiting, fever or chills. The patient is not currently being treated for this problem. Note for Cold symptoms: trying antihistamin not getting better starting to move into chest - still smoking we discussed needs to quitEncounter Diagnosis: Upper Respiratory Infection (465.9) [facility] Office Visit On: 11-Feb-2014 11:57 Encounter Reason: Follow up for chronic medical issues - The patient feels well with minor complaints (nasal drainage continues post-URI. Was on atb which resolved it all except her clear nasal drainage which then collec End: 11-Feb-2014 13:45 ts in her throat and she coughs up. Has hx of allergies.), has decreased energy level and is sleeping poorly (interupted- wakes up to use restroom). Patient has been compliant with instructions. Current medication use: no side effects and compliant with dosing regimen. Patient sleeps 6 (broken up) hours per night. Nutrition: inappropriate diet, supplemental vitamins and low salt diet. The medical issu es the patient is following up for include All identified problems below, gastric reflux, high cholesterol, hypothyroid, osteoporosis/osteopenia and other (anxiety, arthritis, spinal stenosis, ddd). Not e for Follow up for chronic medical issues: she had bronchial infection- better stillpnd eating well- and bp is good- thyroid good and chol good - thepain in breast better than was and follwoing with dr myers and endo did her one density and follwoing her thyroid- and - sodium and bp good - , [ADDITIONAL REASON] Follow up, Laboratory Test Results - Date: (01/24/14). Encounter Diagnosis: Anxiety (300.00), Hyperlipidemia (272.4), Hypothyroidism (244.9), Macrocytosis without anemia (289.89), Gerd (530.81), OTHER SIGNS AND SYMPTOMS IN BREAST (611.79) [facility] Office Visit On: 02-Dec-2013 17:12 Encounter Reason: Injections - The medication the patient is here to receive is other (influenza vaccine).Encounter Diagnosis: NEED FOR PROPHYLACTIC VACCINATION AND INOCULATION AGAINST INFLUENZA (V04.81) End: 04-Dec-2013 10:24 [facility] Office Visit On: 25-Nov-2013 10:50 Encounter Reason: Follow up Meds - The patient feels well with minor complaints (mild anxiety yet but otherwise feels pretty good ), has good energy level and is sleeping well (has nights where doesnt sleep good). Patien End: 25-Nov-2013 15:43 t has been compliant with instructions. Current medication use: no side effects and compliant with dosing regimen. Patient sleeps 7 hours per night. Note for Follow up Meds: Feels pretty good only maylin ing the celexa 10mg qod.- she isnt taking afternoon buspar and feels like maybe some anxiety with qod celexa but not depressed and overall feels like its better andfeeling better in general- she seeing wietecha- and thyroid better too just in general doing better- hip better- she is getting injections into backEncounter Diagnosis: Anxiety (300.00), Hypothyroidism (244.9), Hyperlipidemia (272.4) [facility] Office Visit On: 14-Oct-2013 9:29 Encounter Reason: Follow up Meds - The patient feels well with minor complaints (Pt sees a great improvement with adding the buspar. Still some anxiety but much better.), has decreased energy level and is sleeping poorly End: 14-Oct-2013 10:48 (because of back issues). Patient has been compliant with instructions. Current medication use: no side effects and compliant with dosing regimen. Patient sleeps 7 hours per night. Note for Follow up Meds: hip signifcantly better not gone- she is doing sme home therapy and helping and alot more comfortable- offered refferal to ortho she wants to hold off and seeing pain managementin next month- anx iety so much better and ot requiring atival last two weeks, [ADDITIONAL REASON] Follow up tests - Diagnostic tests include CT scan (pelvis and right hip). Date: (10/07/13). Encounter Diagnosis: Pelvis/Thigh/Hip Pain (719.45), Anxiety (300.00), Removal of staple [facility] Phone Encounter On: 30-Sep-2013 18:07 Encounter Diagnosis: Pelvis/Thigh/Hip Pain (719.45) End: 30-Sep-2013 18:10 [facility] Office Visit On: 30-Sep-2013 16:00 Encounter Reason: Nurse procedure visit - Reason for visit: other (staple removal).Encounter Diagnosis: Removal of staple End: 30-Sep-2013 16:36 [facility] Office Visit On: 25-Sep-2013 14:00 Encounter Reason: Hip Problem - Symptoms include hip problem, while symptoms do not include fever or chills. The symptoms are located in the left hip and right hip (worse). The patient describes the hip problem as hip pa End: 26-Sep-2013 22:15 in, hip stiffness, decreased range of motion, difficulty bearing weight and difficulty ambulating. Onset was sudden 3 day(s) ago. The symptoms occur constantly. The patient describes symptoms as moderat e in severity (to severe) and worsening. Associated symptoms include low back pain and weakness of the leg, while associated symptoms do not include numbness in the leg. The patient is not currently fritz ng treated for this problem. Note for Hip problem: Pt was in [place] last week and slipped on wet ceramic tile. then last night tripped too- hip and back hurt - vicoden and ibuprofen not helpingEncounter Diagnosis: Pelvis/Thigh/Hip Pain (719.45), PAIN IN THORACIC SPINE, Arm Pain (729.5) [facility] Phone Encounter On: 12-Sep-2013 15:59 Encounter Diagnosis: Gerd (530.81) End: 12-Sep-2013 16:01 [facility] Office Visit On: 02-Sep-2013 10:37 Encounter Reason: Follow up for chronic medical issues - The patient feels well with minor complaints (dysuria), has decreased energy level and is sleeping poorly (interupted- wakes up to use restroom). Patient has been End: 02-Sep-2013 21:26 compliant with instructions. Current medication use: no side effects and compliant with dosing regimen. Patient sleeps 6 (broken up) hours per night. Nutrition: inappropriate diet, supplemental vitamins and low salt diet. The medical issues the patient is following up for include All identified problems below, gastric reflux, high cholesterol, hypothyroid, osteoporosis/osteopenia and other (anxiety, a rthritis, spinal stenosis, ddd). Note for Follow up for chronic medical issues: she saw selvin- and he ??is readjusting fluid intake with sodium and thyroid levels - just changedc again-s aw yaron a and following multiple issues and saw louis in may had mammo and has close follwoup they are watching - was off chol meds due to surgery so back on now, [ADDITIONAL REASON] Follow up, Laboratory Test Results - Date: (08/27/13). , [ADDITIONAL REASON] Dysuria - Symptoms include dysuria, internal burning, urgency and frequency, while symptoms do not include suprapubic pain, fever or chills. Onset was gradual month(s) ago. The symp toms occur frequently. The patient describes this as unchanged. Associated symptoms include lower back pain, while associated symptoms do not include bladder spasm, abdominal pain, nausea or vomiting. T he patient is not currently being treated for this problem. Encounter Diagnosis: Dysuria (788.1), Anxiety (300.00), Hyperlipidemia (272.4), Fibrocystic Breast Disease (610.2), Hypothyroidism (244.9) [facility] Phone Encounter On: 01-Jul-2013 14:33 Encounter Diagnosis: Headache (784.0) End: 01-Jul-2013 14:34 [facility] Office Visit On: 14-May-2013 12:15 Encounter Reason: Follow up acute care visit - The patient does not feel well, has decreased energy level and worsening (chest is worsening. Head symptoms have improved.). Patient has been compliant with instructions. Cu End: 14-May-2013 21:56 rrent medication use: no side effects and compliant with dosing regimen. The medical issues the patient is following up for include All identified problems below and URI. Note for Follow up acute care visit: head sx got better now in chest - no fever not sure what color of sputum maybe yellow green- - gets alot of coughing and sob with exertin not sure about wheeze- hurst right ribs- not been taking methotrexate Encounter Diagnosis: Cough (786.2) , Chest pain (786.59) [facility] Office Visit On: 29-Apr-2013 11:17 Encounter Reason: Follow up for chronic medical issues - The patient feels well with minor complaints (cold), has decreased energy level and is sleeping poorly (interupted- wakes up to use restroom). Patient has been com End: 29-Apr-2013 21:23 pliant with instructions. Current medication use: no side effects and compliant with dosing regimen. Patient sleeps 6 (broken up) hours per night. Nutrition: inappropriate diet, supplemental vitamins an d low salt diet. The medical issues the patient is following up for include All identified problems below, gastric reflux, high cholesterol, hypothyroid, osteoporosis/osteopenia and other (anxiety, arth ritis, spinal stenosis, ddd). Note for Follow up for chronic medical issues: had gone off chol meds due to leg pain and so that why chol up- but not from meds so just went back on- bp is good- anxiety high- - wants to go up on celexa- she has followup with Selvin in june for thyroid and has followup ct for adrenal mass- no gerd or dysphagia- has followup with DR myers this month - staying on probiotics and has helped bowels too, [ADDITIONAL REASON] Follow up, Laboratory Test Results - Date: (04/23/13). , [ADDITIONAL REASON] Cold Symptoms - Symptoms include nasal congestion, runny nose, postnasal drainag e, scratchy throat, hoarseness, productive cough, facial pressure and headache, while symptoms do not include sore throat or facial pain. Onset was gradual 1 week(s) ago. The symptoms occur constantly. The patient describes this as worsening. Associated symptoms include plugged ear(s) and fatigue, while associated symptoms do not include ear pain, swollen lymph nodes, wheezing, shortness of breath, na usea, vomiting, diarrhea, fever or chills. The patient is not currently being treated for this problem. Note for Cold symptoms: had gotten rid of previous- but put bath salts in got sneezing itcy wate ry eyes and tickle throat- then proceeded on- still smoking never allergy testing- feels thick in sinus Encounter Diagnosis: Anxiety (300.00), Hyperlipidemia (272.4), Gerd (530.81), Hypothyroidism (244.9), Allergic rhinitis (477.9), OTHER SIGNS AND SYMPTOMS IN BREAST (611.79), Upper Respiratory Infection (465.9) [facility] Office Visit On: 19-Feb-2013 10:27 Encounter Reason: Cough - Symptoms include cough and runny nose. The cough is described as barky and productive (green mucus). Cough onset was day(s) ago. Symptoms are described as worsening. Associated symptoms include End: 19-Feb-2013 23:50 postnasal drainage and headache. Current treatment includes non-opioid cough medications. Note for Cough: has too she not improving no fever -cough prod yellow greenEncounter Diagnosis: Cough (786.2), Upper Respiratory Infection (465.9) [facility] Office Visit On: 28-Jan-2013 10:18 Encounter Reason: Follow up, Laboratory Test Results - Date: (06/22/12). Current symptoms/reason for visit include/s Symptoms include other (cold symptoms). Note for Follow up to discuss laboratory test results: saw car End: 28-Jan-2013 20:32 martina- had stress echo and now on 30 day monitor- awaiting those results- had sleep study -thinks was ok- thinks celexa has helped with anxiety and sleeping better- no side effects -weight down 6pounds, [ADDITIONAL REASON] Follow up Meds - The patient feels well with minor complaints (restarting the celexa has helped with her anxiety, still slightly there but much improved. Takes ativan prn if needed. ), has decreased energy level and is sleeping well. Patient has been compliant with instructions. Current medication use: no side effects and compliant with dosing regimen. Patient sleeps 7 hours per night. , [ADDITIONAL REASON] Cold Symptoms - Symptoms include nasal congestion, runny nose, postnasal drainage and productive cough, while symptoms do not include sore throat, hoarseness, facial pressure, facia l pain or headache. Onset was gradual 3 week(s) ago. The symptoms occur constantly. The patient describes this as worsening. Associated symptoms include fatigue, while associated symptoms do not include ear pain, swollen lymph nodes, wheezing, shortness of breath, nausea, vomiting, diarrhea, fever or chills. The patient is not currently being treated for this problem. Note for Cold symptoms: exposure to grandson in daycare Encounter Diagnosis: Anxiety (300.00), Upper Respiratory Infection (465.9), Hypothyroidism (244.9), Hyperlipidemia (272.4), Need for prophylactic vaccination and inoculation against influenza (V04.81) [facility] Office Visit On: 17-Dec-2012 10:31 Encounter Reason: Follow up tests - Diagnostic tests include CT scan, mammography, other (blood work) and ultrasound. Date: (September thrOctober 2012). Note for Discuss procedure results: saw Selvin and had pet sca End: 17-Dec-2012 11:34 n of adrenal which was negative- he said cant bx so rect in 6 months- he is treating thryoid- he said her labs are off but doesnt feel he wants to treat this yet but monitor- saw Dr Myers and thought hor monal in nature and is going to see her again in 6 months- selvin ordered a dsleep studyEncounter Diagnosis: OTHER SIGNS AND SYMPTOMS IN BREAST (611.79), Hypothyroidism (244.9), Hyperlipidemia (272.4), Fatigue (780.79), Anxiety (300.00), thickening of pericardium [facility] Office Visit On: 02-Nov-2012 10:03 Encounter Reason: Breast pain - The onset of the breast pain has been gradual and has been occurring in a persistent pattern for months (2). The course has been constant. The breast pain is described as moderate. The loc End: 04-Nov-2012 21:12 ation of the pain is in the left nipple, left upper outer quadrant, left lower outer quadrant and right nipple. The pain is described as burning. Note for Breast pain: been swollen couple months on le ft- seems felipe getting beigger and now painful to touch- kind of burning- now right nipple with lesion getting bigger Encounter Diagnosis: Anxiety (300.00), OTHER SIGNS AND SYMPTOMS IN BREAST (611.79) [facility] Office Visit On: 12-Sep-2012 11:03 Encounter Reason: Dysuria - Symptoms include internal burning, frequency and suprapubic pain, while symptoms do not include fever or chills. The symptoms occur constantly. The patient describes this as unchanged. Associa End: 13-Sep-2012 23:26 kat symptoms include bladder spasm and lower back pain. The patient is not currently being treated for this problem. Note for Dysuria: not doing much caffeine- bowels are unchagned for her - bladder pressure - feeling like has to go all the time, [ADDITIONAL REASON] Anxiety - Note for Anxiety: hx of anxiety- doesnt have every day but some stress going on - she is starting to wonder whether what she thought was hypoglycemic is anxiety- shakey tremor sweat- wants short term trial something short acting Encounter Diagnosis: Dysuria (788.1), Hematuria (599.7), Anxiety (300.00) [facility] Office Visit On: 15-Aug-2012 15:28 Encounter Reason: Follow up, Laboratory Test Results - Lab results: abnormal blood chemistry (low bs's). Date: (06/22/12). Current symptoms/reason for visit include/s Symptoms include other (tremendous amounts of fatigue) End: 15-Aug-2012 16:35 . Note for Follow up to discuss laboratory test results: she is doing small freq meals and higher protein and low glycemic index- foods- she definietley had hypoglycemia on 4 hourgtt and her hut was positive- margie said no other neuro disorder Encounter Diagnosis: Fatigue (780.79), Hypothyroidism (244.9), Hyperlipidemia (272.4), Adrenal insufficiency (255.41), Vasovagal syncope (780.2), Osteopenia (733.90) [facility] Office Visit On: 28-May-2012 15:21 Encounter Reason: Cold Symptoms - Symptoms include nasal congestion, runny nose, postnasal drainage, sore throat, hoarseness, productive cough and headache, while symptoms do not include facial pressure or facial pain. O End: 28-May-2012 21:41 nset was sudden 2 week(s) ago. The symptoms occur constantly. The patient describes this as worsening. Associated symptoms include plugged ear(s), swollen lymph nodes and fatigue, while associated sympt oms do not include ear pain, wheezing, shortness of breath, nausea, vomiting, diarrhea, fever or chills. The patient is not currently being treated for this problem. Note for Cold symptoms: she did ge t rid of previous infection felt better question exposure to grandchildren- similar sx but worse in chest - she hasnt taken methotrexate for 2-3 weeks- and used proair over the weekend- coughing up brown and still smokingEncounter Diagnosis: SCREENING FOR BREAST CANCER (V76.10), Fatigue (780.79), Bronchitis,Acute (466.0), Eustachian Tube Dysfunction (381.81) [facility] Phone Encounter On: 27-Apr-2012 15:53 Encounter Diagnosis: Cough (786.2) End: 27-Apr-2012 15:55 [facility] Office Visit On: 27-Apr-2012 12:34 Encounter Reason: Cold Symptoms - Symptoms include nasal congestion, runny nose, sore throat, hoarseness, productive cough, facial pressure and headache, while symptoms do not include facial pain. Onset was sudden 3 week End: 29-Apr-2012 16:56 (s) ago. The symptoms occur constantly. The patient describes this as worsening (again- was getting better but then worsening again). Associated symptoms include fever (off and on), while associated sym ptoms do not include ear pain, nausea, vomiting, diarrhea or chills. The patient is not currently being treated for this problem. Note for Cold symptoms: has followup with endo - he not convinced she has adrenal insuff- so off pred and doing more labs- Encounter Diagnosis: Bronchitis,Acute (466.0), Upper Respiratory Infection (465.9) [facility] Office Visit On: 13-Feb-2012 17:25 Encounter Reason: Anxiety - Note for Anxiety: here at husbands appt - had stopped cymbalta and having alot of anxety and trouble shutting down and functioning- she would like to try alternative to cymbalta- and End: 13-Feb-2012 22:02 uses celexa- we discussed side effects of weight gain and sexual disfunctionEncounter Diagnosis: Anxiety (300.00) [facility] Office Visit On: 03-Feb-2012 14:54 Encounter Reason: Back pain - The onset of the pain has been sudden and has been occurring in a persistent pattern for 2 weeks. The course has been increasing. The pain is characterized as a dull ache. The pain is descri End: 03-Feb-2012 15:23 bed as being located in the lumbar area. The pain radiates to the lateral aspect of right leg. There are no precipitating factors. The symptoms have no aggravating factors. The symptoms have no relievin g factors. The pain has been associated with chills and paresthesias in leg (normal), while there has been no fever, flank pain or hip pain.Encounter Diagnosis: Low back pain (724.2), Abdominal Pain,LUQ (789.02), Pharyngitis (462) [facility] Office Visit On: 30-Jan-2012 13:23 Encounter Reason: Follow up, Laboratory Test Results - Lab results: other (abn tpo). Date: (01/13/12). Current symptoms/reason for visit include/s Symptoms include other (same chronic issues). Note for Follow up to disc End: 30-Jan-2012 14:19 uss laboratory test results: has urinary freq and sore throat this am- no other new sxEncounter Diagnosis: Fatigue (780.79), Hyperlipidemia (272.4), Adrenal insufficiency (255.41), Urinary frequency (788.41), Hypothyroidism (244.9), ACUTE PHARYNGITIS (462.) [facility] Office Visit On: 10-Jan-2012 11:47 Encounter Reason: Follow up for chronic medical issues - The patient does not feel well (same chronic issues- fatigue seems to be worse ), has decreased energy level and is sleeping poorly (interupted- wakes up to use re End: 10-Jan-2012 22:04 stroom). Patient has been compliant with instructions. Current medication use: no side effects and compliant with dosing regimen. Patient sleeps 6 (broken up) hours per night. Nutrition: inappropriate d iet, supplemental vitamins and low salt diet. The medical issues the patient is following up for include All identified problems below, gastric reflux, high cholesterol, hypothyroid, osteoporosis/osteop enia and other (anxiety, arthritis, spinal stenosis, ddd). Note for Follow up for chronic medical issues: - she saw neurologist dr howard in [place]- he did tilt table table test and told her was positi ve that she has neurocardiogenic syncope-- he told her to drink more fluids- but she is alreadydrinking alot of fluids already- she doesnt drink etoh routinely and no pop- he wants her to take med for this, [ADDITIONAL REASON] Follow up, Laboratory Test Results - Date: (01/02/12). Encounter Diagnosis: Fatigue (780.79), Syncope (780.2), Hypothyroidism (244.9), Hyperlipidemia (272.4), Macrocytosis without anemia (289.89) [facility] Office Visit On: 09-Dec-2011 10:02 Encounter Reason: Follow up tests - Diagnostic tests include ECHO. Date: (11/30/11). Note for Follow up tests: she is feeling the same-[ no more syncope but doesnt feel well== still getting body fatigue as day progresse End: 13-Dec-2011 22:30 s and cant do the things she used to do not too long ago- Encounter Diagnosis: Need for prophylactic vaccination and inoculation against influenza (V04.81), Syncope (780.2), Palpitations(785.1) [facility] Phone Encounter On: 22-Nov-2011 16:25 Encounter Diagnosis: Syncope (780.2) End: 22-Nov-2011 16:27 [facility] Office Visit On: 14-Nov-2011 9:06 Encounter Reason: Follow up ER - Reason for hospitalization note: (syncope while on vacation). Patient has been compliant with instructions. Current medication use: no side effects and compliant with dosing regimen. The End: 14-Nov-2011 21:34 patient feels well with minor complaints (feels very strange- feels like everything is moving around her and trembling inside), has decreased energy level and is sleeping poorly (gets up to use bathroom ). Patient sleeps 6 hours per night. Impact of disease: emotional impact-mild. Note for Follow up ER: didnt feel well the whole week on vacation- any exertion made her feel lighheaded- she got up in m iddle of night to go to bathroom- she wasnt dizzy but felt like being pushed backwards- hit head neck and back- didnt assure followup out then- woke up and got her up - she seemed groggy- took h er into bathroom -she went to bathroom- her trying to get her off toilet- and she collapsed - and head rolled back and was breathing funny- was unsconscious- he drug her into bedroom- she was de ad weight - she then lost bladder control- ran to get her mom in other room and when came back she woke up - she woke up and was talking normally- but didnt remember anything - she didnt bite tongue- no seizure activity - she will often feel palpitations and felt them that - a glass of wine 4 oz - didnt take nay meds that night- took her into bed and she felt and was ok- took her to er next day- did e kg- and ct of head and was ok- did lab told her dehydrated and gave her iv fluids- she told him felt great so she could leave- but she really doesnt fell- headaches off and on mild - before this was get ting headache left side and getting numb left side around eye- hurt neck and back no xrays - she drink ton of fluids every dayEncounter Diagnosis: Syncope (780.2), Low back pain (724.2), Neck pain (723.1), Headache (784.0), Palpitations(785.1) [facility] Office Visit On: 18-Oct-2011 9:17 Encounter Reason: Follow up, Laboratory Test Results - Lab results: abnormal blood chemistry (tsh) and abnormal blood lipids. Date: (10/01/11). Current symptoms/reason for visit include/s Symptoms include other (basically End: 18-Oct-2011 10:08 I feel the same as I always feel). Note for Follow up, Laboratory Test Results: weight stable - and bp is good - sleeping better with trazadone and thinks the cymbala helps - new mri of neck shows b uldging disc so gong to be getting steroid shots again in neck- she is not having the swallowing issues like she was Encounter Diagnosis: Hypothyroidism (244.9), Hyperlipidemia (272.4), Dysphagia (787.20), Anxiety (300.00), Gerd (530.81), inflammatory arthritis- following with noni [facility] Annotation/Addendum On: 03-Oct-2011 12:00 Encounter Diagnosis: Hypothyroidism (244.9) End: 03-Oct-2011 12:09 [facility] Office Visit On: 22-Aug-2011 10:08 Encounter Reason: Follow up for chronic medical issues - The patient feels well with minor complaints (same chronic issues- pain and fatigue), has good energy level and is sleeping poorly (interupted- wakes up to use res End: 22-Aug-2011 10:53 troom). Patient has been compliant with instructions. Current medication use: no side effects and compliant with dosing regimen. Patient sleeps 6 (broken up) hours per night. Nutrition: inappropriate di et, supplemental vitamins and low salt diet. The medical issues the patient is following up for include All identified problems below, gastric reflux, high cholesterol, hypothyroid, osteoporosis/osteope tay and other (anxiety, arthritis, spinal stenosis, ddd). Note for Follow up for chronic medical issues: she is eating but less- usha looked down her throat into stomach and was told it was normal- she is eating alot of fruit and veggies - but feels like cant swallow meat- thyroid us ok- she is being checked for sjrogens due to dry eyes and dry mouth- she didnt feel going off simvistatin changed her sx so will go back on it , [ADDITIONAL REASON] Follow up, Laboratory Test Results - Date: (08/10/11 and 08/15/11). Encounter Diagnosis: Spinal fusion, Anxiety (300.00), Dysphagia (787.20), Hypothyroidism (244.9), Candidiasis of Mouth (Thrush) (112.0), Hyperlipidemia (272.4), Thyroid nodule (241.0), Bacterial pneumonia, unspecified (482.9), Cough (786.2) [facility] Phone Encounter On: 15-Aug-2011 15:05 Encounter Diagnosis: Hypothyroidism (244.9) End: 15-Aug-2011 15:15 [facility] Office Visit On: 28-Jun-2011 12:59 Encounter Reason: Follow up acute care visit - The patient does not feel well, feels the same, has decreased energy level and worsening. Patient has been compliant with instructions. Current medication use: no side effec End: 28-Jun-2011 21:23 ts and compliant with dosing regimen. Patient sleeps 7 hours per night. The medical issues the patient is following up for include All identified problems below and URI (and thrush). Note for Follow up acute care visit: Pt finished the atb and nystatin last week and since then her symptoms are coming back. Cough, sore throat, nasal drainage and congestion plus thrush symptoms again.- she felt decent for 4-5 days but starting to come back again- hasnt taken methotrexate for a monthEncounter Diagnosis: Candidiasis of Mouth (Thrush) (112.0), Cough (786.2) [facility] Phone Encounter On: 07-Jun-2011 15:22 Encounter Diagnosis: Bacterial pneumonia, unspecified (482.9) End: 07-Jun-2011 15:24 [facility] Office Visit On: 07-Jun-2011 12:10 Encounter Reason: Follow up acute care visit - The patient does not feel well, has decreased energy level and worsening. Patient has been compliant with instructions. Current medication use: no side effects and compliant End: 07-Jun-2011 21:47 with dosing regimen. Patient sleeps 8 hours per night. The medical issues the patient is following up for include All identified problems below and URI. Note for Follow up acute care visit: Still has sore throat, whiteness has resolved but now has cough with white/mancia sputum.-white is gone but tongue is red and sore- tired and just hurts more than usual- now coughing up thick white alonso with temp at night- chils at nightEncounter Diagnosis: Bacterial pneumonia, unspecified (482.9), Fatigue (780.79) [facility] Office Visit On: 20-May-2011 13:18 Encounter Reason: Sore Throat - Symptoms include sore throat, swollen glands and fever, while symptoms do not include nasal congestion, postnasal drainage, drooling or chills. The symptoms are symmetrical. There is no ra End: 22-May-2011 22:06 diation. Onset was sudden week(s) ago (one). The symptoms occur constantly. The episodes last for weeks. The patient describes this as moderate in severity and worsening. Symptoms are not exacerbated by swallowing liquids or swallowing solids. Associated symptoms include headache and hoarseness, while associated symptoms do not include ear pain, facial pain, nausea, vomiting, cough or rash. The patien t is not currently being treated for this problem. Note for Sore Throat: Pt describes it as a thick feeling in her throat but not like mucas thick.Encounter Diagnosis: Unspecified Diagnosis, ACUTE PHARYNGITIS (462.), Candidiasis of Mouth (Thrush) (112.0) [facility] Office Visit On: 27-Apr-2011 8:32 Encounter Reason: Follow up for chronic medical issues - The patient feels well with minor complaints (same chronic issues- pain- no new complaints- seeing pain management at [facility] has good energy level and is sleepin End: 27-Apr-2011 9:18 g poorly (interupted- wakes up to use restroom and just uncomfortable). Patient has been compliant with instructions. Current medication use: no side effects and compliant with dosing regimen. Patient s leeps 6 (broken up) hours per night. Nutrition: inappropriate diet, supplemental vitamins and low salt diet. The medical issues the patient is following up for include All identified problems below, gas tric reflux, high cholesterol, hypothyroid, osteoporosis/osteopenia and other (anxiety, arthritis, spinal stenosis, ddd). Note for Follow up for chronic medical issues: she doesnt think cymbalta helpi ng the anxiety- went to counseling even- she is anxious becuase the pain interferes with her life- and family stresses-when she gets more stress hse gets more gerd- she is now on valium at night- which has some with the sleeping- cant get deep nights sleep- she isnt taking flexerildoesnt think nexium more helpful for the pérez wants to go back to omeprazole and pepcis- discussed ph probe but she wants to hold off she saw usha and got scoped and was okEncounter Diagnosis: Unspecified Diagnosis, Anxiety (300.00), Gerd (530.81), Hyperlipidemia (272.4), Hypothyroidism (244.9), Thyroid nodule (241.0) [facility] Office Visit On: 18-Jan-2011 8:35 Encounter Reason: Follow up tests - Diagnostic tests include other (labs). Date: (01/03/11). Current symptoms include other (heartburn still there mildly but alot better since last visit). Note for Follow up tests: no m End: 18-Jan-2011 9:15 ore spewing of acid at night- no gerd- but still some heat-and bubbling- mostly in daytime-some swallowing issues from neck she is sure ecuase didnt have until neck surgery- she is trying to elevate bed with pillows- she is not drinking coffeee Encounter Diagnosis: Gerd (530.81) [facility] Office Visit On: 03-Jan-2011 14:32 Encounter Reason: Heartburn - The onset of the heartburn has been sudden and has been occurring in a persistent pattern for 2 weeks. The course has been increasing. The heartburn is characterized as burning and warmth. T End: 03-Jan-2011 22:17 he heartburn is described as being located in the epigastrium and xiphisternum. The heartburn does not radiate. The symptoms are aggravated by lying down (black coffee too), but not by large meals or st ooping. The symptoms have no relieving factors. The symptoms have been associated with use of medications, while the symptoms have not been associated with abdominal pain, dysphagia, indigestion, nausea , vomiting or blood in stool. Note for Heartburn: Pt is taking omeprazole daily plus tums and no relief.- sour and hot- in mouth no new meds- nopred no doxy no nsaids- she actually got it on sheets- c helenldnst swallow well after surgery and had been off omeprazole- so restarted and hasnt helped- tums helps only shortly- cant drink the coffeee- instant acid, [ADDITIONAL REASON] Follow up tests - Date: (11/19/10- in scanned documents). Encounter Diagnosis: Gerd (530.81), Degenerative Disc Disease - Lumbar (722.52), Urinary frequency (788.41) [facility] Office Visit On: 21-Dec-2010 16:01 Encounter Reason: Injections - The medication the patient is here to receive is other (Influenza vaccine). history: Patient is not currently . Note for Injections: tolerated well with no complaints.Encounter Diagnosis: End: 22-Dec-2010 8:13 Need for prophylactic vaccination and inoculation against influenza (V04.81) [facility] Office Visit On: 27-Oct-2010 11:07 Encounter Reason: Preoperative evaluation - The patient feels well with minor complaints (nothing new- just neck pain). Surgical procedures include: other (neck surgery- per pt removal of debris from vertebrae// cervic End: 27-Oct-2010 16:33 al decompression and fusion). Date of procedure: (11/19/10) . There have been no problems with general anesthesia or blood/blood products. Note for Preoperative evaluation: see referral notes from Dr. Matt Wilburn requesting the preop physical.- never had a blood clot- tolerated the last surgery well on her back in 2005- same surgeon- doing at [facility]- she saw Noni who told ehr to stay on methotrex ate told her to make sure surgeon feels the same she will check with him- no chest pain or sob- - she does smokeEncounter Diagnosis: EXAMINATION, PREOPERATIVE NOS (V72.84), Hypothyroidism (244.9), Hyperlipidemia (272.4), Arthritis, rheumatoid (714.0) [facility] Office Visit On: 03-Aug-2010 16:22 Encounter Reason: Sore throat - The onset of the sore throat has been sudden and has been occurring in a persistent pattern for 4 days. The course has been unchanged. The symptoms have been associated with change in voic End: 03-Aug-2010 23:19 e, difficulty in swallowing and fever, while the symptoms have not been associated with chills, cough, ear pain, post-nasal drip, recent contact with a person with sore throat, runny nose, sinus pain or swelling of neck glands. Note for Sore throat: Pt also is going on a vacation, will be driving for long periods and needs a pain med to help control the pain. The percocet helps some but not totally. If nothing else to offer then would just like some more percocet. Pt has apt with Dr. Wilburn on 08/19/10 for f/u on her back issues.- had pus to start not now- still sore - Encounter Diagnosis: ACUTE PHARYNGITIS (462.), Cervical radiculopathy (723.4) [facility] Office Visit On: 16-Jul-2010 12:27 Encounter Reason: Follow up, Diagnostic Procedure Results - Diagnostic tests include chest X-ray and X-Ray (spine). Date: (07/13/10). Note for Follow up, Diagnostic Procedure Results: back pain continues - pain may be w End: 19-Jul-2010 21:30 orse arms above head with paresthesia with arms above headEncounter Diagnosis: Cervical radiculopathy (723.4) [facility] Office Visit On: 13-Jul-2010 14:06 Encounter Reason: Follow up for chronic medical issues - The patient feels well with minor complaints (back pain continues, upper cervical and goes thru to her chest, right side. Pt would like to talk about going off he End: 18-Jul-2010 22:47 r cymbalta and PPI- New complaint of allergies per eye doc.), has good energy level and is sleeping poorly (interupted- wakes up to use restroom and just uncomfortable). Patient has been compliant with instructions. Current medication use: no side effects and compliant with dosing regimen. Patient sleeps 6 (broken up) hours per night. Nutrition: balanced diet, supplemental vitamins and low salt diet. The medical issues the patient is following up for include All identified problems below, gastric reflux, high cholesterol, hypothyroid, osteoporosis/osteopenia and other (anxiety, arthritis, spinal st enosis, ddd). Note for Follow up for chronic medical issues: she is tired thinks is cymbalta wants to try off - doesnt think needs for pain or anxiety not convinced that helpful- first week of june nec k pain- new issue- tried heat tens etc- it hurts to touch-under shoulder blade- mobic not help- vicoden- - pain pain down right arm- no weak or numb in arm, [ADDITIONAL REASON] Allergic rhinitis - The onset of the allergic rhinitis has been sudden and has been occurring in spring season and summer season pattern for 6 weeks. The course has been gradually w orsening. nothing. The allergic rhinitis are relieved by antihistamines (claritan and hiren help but dries her eyes out too bad. Benedryl makes her sleeping.). Associated features include The symptoms have been associated with red eyes, clear nasal drainage (and post-nasal drip), scratch throat and coughing, while the symptoms have not been associated with watery eyes, itchy eyes, ear pain, ear ev inage, itchy nose or sneezing. No previous evaluations were reported. Medications have included antihistamines. Encounter Diagnosis: Gerd (530.81), Hypothyroidism (244.9), Osteopenia (733.90), Hyperlipidemia (272.4), Allergic rhinitis (477.9), Cervical radiculopathy (723.4), Chest pain (786.59), Anxiety (300.00) [facility] Office Visit On: 04-Jun-2010 12:57 Encounter Reason: Cough - The onset of the cough has been sudden and has been occurring in a persistent pattern for 3 weeks. The course has been increasing. The cough is characterized as productive of mucoid sputum. The End: 04-Jun-2010 13:52 amount of sputum produced is scanty. The cough occurs mainly at night. The symptoms are aggravated by supine posture. The symptoms have been associated with hoarseness and sore throat.Encounter Diagnosis: ACUTE PHARYNGITIS (462.), Cough (786.2) [facility] Office Visit On: 25-May-2010 8:38 Encounter Reason: Re-do pap at no charge - thin prep bottle from previous well woman exam was .Encounter Diagnosis: Well Women (TAHBSO) (V72.31) End: 25-May-2010 9:45 [facility] Office Visit On: 04-May-2010 10:06 Encounter Reason: Well Women Exam - The patient feels well with no complaints, has good energy level and is sleeping well. Pap smear: date of last pap: (over 2 years ago from another facility). Contraceptive history: The End: 04-May-2010 10:57 patient is not using any method of contraception at this time. Patient exercises a weekly. The patient's libido is decreased. The patient reports that she performs monthly self breast exam. Calcium int colette includes 1200 mg with Vit D daily supplement. Previous evaluations: hysterectomy (total). The patient denies the use of oral contraceptives or hormone replacement therapy. breast cancer in first degree relative (mother).Encounter Diagnosis: Well Women (TAHBSO) (V72.31), postmenopausal without estrogen [facility] Office Visit On: 02-Apr-2010 11:45 Encounter Reason: Follow up for chronic medical issues - The patient feels well with minor complaints (ongoing lower back pain- seen Francois- she did xrays and states its more structural and needs addressed by df-), has End: 04-Apr-2010 21:13 good energy level and is sleeping poorly (interupted- wakes up to use restroom and just uncomfortable). Patient has been compliant with instructions. Current medication use: no side effects and complia nt with dosing regimen. Patient sleeps 4 hours per night. Nutrition: balanced diet, supplemental vitamins and low salt diet. The medical issues the patient is following up for include All identified pro blems below, gastric reflux, high cholesterol, hypothyroid, osteoporosis/osteopenia and other (anxiety, arthritis, spinal stenosis, ddd). Note for Follow up for chronic medical issues: she saw Noni and has inflammatory arthritis and on prednisone and within a week was better- so now on methotrexate and folic acid- back luittle better -anam thinks back is more degeenerative- bp is good and weigh t is stable- no gerd except a quick acid sensation in early am- try taking gerd med at night and see if helps- - no dysphagia- she saw danni and had basalcell by mohs taken off face- - and had whole bod y scan- alot of anxiety daughters both having issues - she feels good other than the stress anxiety-did cousnling- but issues cant fix- doesnt want to increase meds or add meds, [ADDITIONAL REASON] Follow up, Diagnostic Procedure Results - Diagnostic tests include ultrasound (thyroid) and X-Ray (pelvis and hip- abnormal per Dr. Parrish). Date: (12/28/09 and 01/06/10). Encounter Diagnosis: Degenerative Disc Disease - Lumbar (722.52), Gerd (530.81), Hyperlipidemia (272.4), Anxiety (300.00), Hypothyroidism (244.9), Other malignant neoplasm of skin of other and unspecified parts of face (173.3), Osteopenia (733.90), screening, Neck pain (723.1) [facility] Phone Encounter On: 16-Mar-2010 14:36 Encounter Diagnosis: Arthritis, rheumatoid (714.0) End: 16-Mar-2010 14:37 [facility] Office Visit On: 23-Dec-2009 8:29 Encounter Reason: Follow up for chronic medical issues - The patient feels well with minor complaints (ongoing fatigue and arthritis pain- new complaint of skin lesion on face.), has good energy level and is sleeping poo End: 24-Dec-2009 22:58 rly (interupted- wakes up to use restroom and just uncomfortable). Patient has been compliant with instructions. Current medication use: no side effects and compliant with dosing regimen. Patient sleeps 5 hours per night. Nutrition: balanced diet, supplemental vitamins and low salt diet. The medical issues the patient is following up for include All identified problems below, gastric reflux, high chol esterol, hypothyroid, osteoporosis/osteopenia and other (anxiety, arthritis, spinal stenosis, ddd). Note for Follow up for chronic medical issues: muscle pain is gone and only taking 20mg of simvistat in- she is feeling tired and more arthritic- kind of all over- been getting stiffer in am - worse last 6-8 weeks - feels less anxious on cymbalta but not helping fatigue- feels liek something with thyro id sometimes wierd to swallow or feels like something there, [ADDITIONAL REASON] Follow up, Laboratory Test Results - Date: (12/16/09). , [ADDITIONAL REASON] Skin Lesion, Facial - Symptoms include bleeding lesion, non-healing lesion and r edness around lesion, while symptoms do not include growing lesion or lesion itching. The condition involves a single lesion. Lesion(s) are located on the right cheek. The patient describes the lesion(s ) as nodular and scaling. Onset was sudden 4 month(s) ago. The symptoms occur constantly. The patient describes this as mild and unchanged. Associated symptoms include fatigue, while associated symptoms do not include fever or shortness of breath. The patient is not currently being treated for this problem. Encounter Diagnosis: Hypothyroidism (244.9), arthritis,unspecified (716.90), Gerd (530.81), Anxiety (300.00), Need for prophylactic vaccination and inoculation against influenza (V04.81), Hyperlipidemia (272.4), Spinal Stenosis, Unspecified Region (724.00), Lesion-Unknown behavior (238.2), Dysphagia, unspecified (787.20) [facility] Internal Medicine Office Visit On: 18-Sep-2009 8:35 Encounter Reason: Follow up for chronic medical issues - The patient feels well with minor complaints (pt was having increased arthralgia's with the statin- Pt stopped the statin and it has improved, not completely gone, End: 18-Sep-2009 9:15 but much better.) ,has good energy level and is sleeping poorly (interupted- wakes up to use restroom and just uncomfortable). Patient has been compliant with instructions. Current medication use: expe riencing side effects (increased muscle aches from statin) and compliant with dosing regimen. Patient sleeps 5 hours per night. Nutrition: balanced diet ,supplemental vitamins and low salt diet. The med ical issues the patient is following up for include All identified problems below ,gastric reflux ,high cholesterol ,hypothyroid ,osteoporosis/osteopenia and other (anxiety, arthritis, spinal stenosis, ddd). Note for Follow up for chronic medical issues: she thinks the cymbalta taking the edge off - not as shakey or tremulous and tolerating-takes in am-cough is almost gone- still smoking- encoruage cessation- not cutting back- back about the same , [ADDITIONAL REASON] Follow up, Laboratory Test Results - Date: (09/12/09). Encounter Diagnosis: Hypothyroidism (244.9), Anxiety (300.00), Hyperlipidemia (272.4), Degenerative Disc Disease - Lumbar (722.52) [facility] Office Visit On: 26-Aug-2009 12:04 Encounter Reason: Cough - The onset of the cough has been 3 weeks ago. The cough is characterized as productive of mucopurulent sputum. The amount of sputum produced is scanty. The cough occurs all the time. The symptoms End: 26-Aug-2009 13:08 are aggravated by exercise, but not by supine posture or meals. The symptoms have been associated with hoarseness and sore throat, while the symptoms have not been associated with dyspnea ,fever ,heada adali ,runny nose or wheezing. the color of the sputum is greenish and yellowish (brown). Note for Cough: was nearly gone- but now back now hurts to breath right lower lung- sore throat and cough- hasnt taken tempEncounter Diagnosis: Bronchitis,Acute (466.0), Cough (786.2), Anxiety (300.00), Acute sinusitis, unspecified (461.9) [facility] Office Visit On: 31-Jul-2009 10:41 Encounter Reason: Sinusitis/ - The duration of the symptoms are 2 weeks The course has been increasing. The sinusitis/ has no relieving factors. Associated features include The symptoms have been associated with cough ,e End: 31-Jul-2009 11:10 ar pain ,nasal discharge/stuffy nose ,sinus pain and teeth pain. Note for Sinusitis/: started as cold now green.Encounter Diagnosis: BRONCHITIS, NOT SPECIFIED ACUTE OR CHRONIC (490.), Acute sinusitis, unspecified (461.9) [facility] Office Visit On: 02-Jul-2009 11:55 Encounter Reason: Physical female exam - Last seen more than 1 year ago. General health: feels well with minor complaints ,has decreased energy level and is sleeping poorly. The patient's appetite is normal. Nutrition: s End: 02-Jul-2009 22:51 upplemental vitamins & iron. Exercises 3 days per week. Sleeps on average 5 hours per night. Elimination problems include constipation (Pt says it ios not hard but has no movement after it passes be lly button.). Safety measures include appropriate use of safety belts ,appropriate use of helmets and home smoke detectors , but do not include counseling regarding safe sex/HIV or counseling regarding substance abuse. Current emotional problems include sleep disturbances. screening, colonoscopy (2003?) ,screening, fecal occult blood (2006) ,screening, mammography (2009) and screening, visual acuity ( 2008). Note for Physical female exam: in general the pt helped both back and hip some- still pain but able to do more- and is joining [employer] to keep doing the exercises -- bp is good, [ADDITIONAL REASON] Follow up, Diagnostic Procedure Results - Diagnostic tests include mammography (06/18/09 see face sheet). , [ADDITIONAL REASON] Follow up, Laboratory Test Results - Date: (06/24/09 see face sheet). Encounter Diagnosis: Hypothyroidism (244.9), Urine, Abnormal (791.9), Hyperlipidemia (272.4), Osteopenia (733.90), Gerd (530.81), Degenerative Disc Disease - Lumbar (722.52) [facility] Historical Summary On: 23-Jun-2009 16:49 [facility] End: 23-Jun-2009 16:53 Office Visit On: 11-Jun-2009 13:14 Encounter Reason: Back pain - The onset of the pain has been gradual and has been occurring in an intermittent pattern for 4 years (Pt had back surgery 4 years ago-- had fallen down the steps approx 8 years ago and when End: 11-Jun-2009 21:39 she had back w/u done 4 years ago, they were suggesting that the back pain was secondary to an old fx from that fall and so they did the surgery in 2005 with placement of 4 titanium pins.). The course h as been increasing. The pain is characterized as a dull ache. The pain is described as being located in the sacral area (and into left hip). The pain radiates to the left thigh (left hip). There are no precipitating factors. The symptoms are aggravated by exertion ,prolonged standing and prolonged sitting. Note for Back pain: still some residual weakness in left foot and leg but has gotten better bu tnot gone- doing aquatherapy- was seeing Dr Wilburn-just had mri of back and has spinal stenosis and arthritis- now seeing Dr Gonzalez-- this person now moving to [place]- mentally the aquatherapy is helpi ng- physically some help- worse pain low back and left hip and radiates to left foot- some better from knee down now-- had injections in back prior to surgery 4 years ago- did help some- but then leg st arted to not work-- left and the spine was compressing nerve then had surgery- got alot better- but more recently worse again so thats why had mri- never has been as bad as initially was- she would like to give the aquatherapy a little more time- we talked about seeing pain management and she wants to give therapy a little longer- tried lyrica and neurontin not alot of help--was told last year chol re [place] and her doctor wanted to put her on medsEncounter Diagnosis: Hyperlipidemia (272.4), Hypothyroidism (244.9), Degenerative Disc Disease - Lumbar (722.52), Spinal Stenosis, Unspecified Region (724.00), Family history of diabetes mellitus (V18.0), Low back pain (724.2), Abnormal mammogram (793.80), Fibrocystic Breast Disease (610.2), Hip bursitis 726.5 [facility] [employer]; 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
--- OUTSIDE RECORDS SUMMARY | 2018-05-18 08:25 | XMS RPT_ITS | Continuity of Care Document ---
:1960 Author Organization [facility] Address [address] [facility] [address] [place] [address] Phone Care Team Providers Name Role Phone Martha Brown DO Unavailable Brinda IRVIN, Dr. Padilla Jones Unavailable Jitendra Cook MD Unavailable Alan Torres MD Unavailable Eusebio Braswell Unavailable Dr. Carlito Zamora DO Unavailable Aristides Daily Unavailable Unavailable Dr. Matt Wilburn MD Unavailable Shahla Myers MD Unavailable [facility], [facility] Unavailable Niru Taylor Unavailable Trudi Villafana Unavailable Dr. Niru Meyer MD Unavailable Rossy IRVIN, Gato Castillo Unavailable Jay Conley Unavailable Cherie Fountain Unavailable Unavailable Patito Tineo Unavailable Unavailable YURIY Vernon Unavailable Unavailable Unavailable [...] Active Colon polyps (K63.5, 211.3) Comments: recheck 2018[facility] Status: Active Dehydration (E86.0, 276.51) Status: Active [...] propanolol for anxiety- mri unchanged Status: Active Herpes zoster without complication (B02.9, [...] 90 days Quantity: 90 {Tablet} Refills: 3 Ordered:9-Oct-2018 Martha Brown DO, DO, Martha A Start : 05-Dec-2017 Active PredniSONE 5 MG Oral Tablet 1 (one) Tablet qd as directed for 30 days Quantity: 40 {Tablet} Refills: 0 Ordered:05-Dec-2017 Kevin SAMUEL, Martha Ball DO, Martha A Start : 05-Dec-2017 Active Comments:take with food in am Prolia 60 MG/ML Subcutaneous Solution 1 (one) Milliliter q 6 for 0 days Quantity: 1 {Milliliter} Refills: 0 Ordered:05-Dec-2017 Kevin SAMUEL, Martha Ball DO, Martha A Start : 05-Dec-2017 Active Propranolol HCl 20 MG Oral Tablet bid (20 MG) Active Rosuvastatin Calcium 20 MG Oral Tablet 1 (one) Tablet qhs for 90 days Quantity: 90 {Tablet} Refills: 3 Ordered:05-Dec-2017 Martha Brown DO, DO, Martha A Start : 05-Dec-2017 Active Synthroid 150 MCG Oral Tablet 1 (one) Tablet daily except 1/2 tab on m,w,f, for 90 days Refills: 3 Ordered:05-Dec-2017 Martha Brown DO, DO, Martha A Start : 05-Dec-2017 Active Dispense as Written Comments:COLTONCOLTONCOLTON Topiramate 50 MG Oral Tablet 1 Tablet 3 tabs at night and 1 in morning for 0 days Quantity: 270 {Tablet} Refills: 3 Ordered:28-Jun-2017 Martha Brown DO, DO, Martha A Start : 28-Jun-2017 Active Comments:please DO NOT [...] days Quantity: 90 {Capsule} Refills: 0 Ordered:08-Jan-2018 Martha Brown DO, DO, Martha A Start : 08-Jan-2018 Active Comments:per painmanagement Augmentin 875-125 MG Oral Tablet 1 (one) Tablet bid for 0 days Quantity: 20 {Tablet} Refills: 0 Ordered:22-Sep-2017 Cherie Fountain Start : 28-Jun-2017 End : 22-Sep-2017 Inactive [...] days Quantity: 270 {Capsule} Refills: 0 Ordered:07-Mar-2017 Martha Brown DO, DO, Debra A Start : 07-Mar-2017 End : 06-Apr-2017 Inactive HYDROCODONE-ACETAMINOPHEN, 7.5-325MG (Oral Tablet) 1 tab bid (7.5-325 MG) Inactive Comments:pain management LevoFLOXacin 500 MG Oral Tablet 1 (one) Tablet qd for 0 days Quantity: 7 {Tablet} Refills: 0 Ordered:28-Jun-2017 Cherie Fountain Start : 21-Apr-2017 End : 28-Jun-2017 Inactive LORazepam 0.5 MG Oral Tablet 1 (one) Tablet daily, prn for 30 days Quantity: 30 {Tablet} Refills: 0 Ordered:09-May-2016 Martha Brown DO, DO, Debra A Start : 09-May-2016 End : 08-Jun-2016 Inactive Comments:thirty MAXALT, 10MG (Oral Tablet) 1 (one) Tablet prn for 30 days Quantity: 10 {Tablet} Refills: 0 Ordered:02-Sep-2013 Martha Brown DO, DO, Debra A Start : 01-Jul-2013 End : 31-Jul-2013 Inactive MELATONIN, 5MG (Oral Tablet) 1 QHS for 0 days Refills: 0 Ordered:04-Jun-2010 Saloni Serna LPN End : 04-Jun-2010 Inactive MOBIC, 7.5MG (Oral Tablet) 1 tab qd, prn (7.5 MG) Inactive Neurontin 600 MG Oral Tablet 1 (one) Capsule Tablet bid for 0 days Quantity: 180 {Tablet} Refills: 3 Ordered:01-Sep-2016 Fast DO, Martha AFast DO, Martha A Start : 24-May-2016 End : 01-Sep-2016 Inactive NYSTATIN, 610285ATLK/ML (Mouth/Throat Suspension) 1 Suspension 5 cc 5 [...] days Quantity: 1 {Inhaler} Refills: 0 Ordered:05-Dec-2017 Heather Glez LPN Start : 17-Apr-2017 End : 05-Dec-2017 Inactive [...] days Quantity: 21 {Tablet} Refills: 0 Ordered:22-Sep-2017 Hue Schwab DO Start : 22-Sep-2017 End : 29-Sep-2017 Inactive [...] days Quantity: 6 {Ounce} Refills: 0 Ordered:06-Mar-2015 aPtito Tineo Start : 09-Feb-2015 End : 06-Mar-2015 Discontinued Comments:three hundred CYMBALTA, 20MG (Oral Capsule Delayed Release Particles) 1 (one) Capsule DR Gonzales martelm for 0 days Quantity: 90 {Capsule_DR_Part} Refills: 3 Ordered:13-Feb-2012 Martha Brown DO, DO, Debra A Start : 13-Feb-2012 End : 13-Feb-2012 Discontinued CYMBALTA, 30MG (Oral Capsule Delayed Release Particles) 1 (one) Capsule DR Part qd for 90 days Quantity: 90 {Capsule_DR_Part} Refills: 3 Ordered:27-Apr-2011 Martha Brown DO, DO, Martha A Start : 27-Apr-2011 End : 27-Apr-2011 Discontinued FLAVOXATE HCL, 100MG (Oral Tablet) 1 Tablet tid prn for 0 days Quantity: 15 {Tablet} Refills: 0 Ordered:02-Nov-2012 Martha Brown DO, DO, Martha A Start : 02-Nov-2012 End : 02-Nov-2012 Discontinued FLEXERIL, 10MG (Oral Tablet) 1 Tablet qhs prn for 0 days Quantity: 10 {Tablet} Refills: 0 Ordered:27-Apr-2011 Martha Brown DO, DO, Martha Salinas Start : 27-Apr-2011 End : 27-Apr-2011 Discontinued [...] Quantity: 1 {Suspension} Refills: 0 Ordered:15-Aug-2012 Fast DO, Martha AFast DO, Martha A Start : 15-Aug-2012 End : 15-Aug-2012 Discontinued NEXIUM, 40MG (Oral Capsule Delayed Release) [address] bid for 0 days Quantity: 60 {Capsule_DR} Refills: 3 Ordered:27-Apr-2011 DO, Martha AFast DO, Martha A Start : 27-Apr-2011 End : 27-Apr-2011 Discontinued Comments:1 hour before bed- failed omeprazole and pepcid [employer] 3 1200 MG Oral Capsule 2 qd [...] days Quantity: 90 {Tablet} Refills: 3 Ordered:27-Jun-2014 Patito Tineo Start : 17-Jun-2014 End : 27-Jun-2014 [...] days Quantity: 12 {Tablet} Refills: 0 Ordered:18-Oct-2011 Noman Patito Start : 18-Oct-2011 End : 18-Oct-2011 Discontinued [...] without Cont Result: Comments: See Note; NOTES: [facility] Imaging Services [address] [place] [address] Abdomen/Pelvis without Cont MR#: [id number] Acct: [id number] Name: TITA LAW Rep #: [id number] : 1960 F 57 From: Barrera Galeana MD PCP: Martha Brown DO Status: REG CLI Study: Abdomen/Pelvis without Cont Date of Exam: 01/08/18 Exam# [id number] Ordering Dr: Martha Brown TUDY: CT ABDOMEN AND PELVIS WITHOUT CONTRAST [...] Barrera Galeana MD at 13:09 EST Tel [phone], Service support , CC: Martha Brown DO Truck Manager: Signed 30-Dec-2017 Urgent Care Visit Report Result: Comments: See Note; NOTES: [facility] [address] [place] [address] OFFICE VISIT Date of Service: 12/30/17 MR#: [id number] Acct: [id number] Name: TITA LAW Rep #: [id number] : 1960 Provider: APPLE Casiano Age/Sex: 57/F Location: [facility] Status: Signed Intake Vital Signs12/30/17 Height 5 [...] person, oriented to place, oriented to time [facility] Head: normocephalic Ears: external ears normal, [...] Plan Detail Other Medications New: Additional Comments Patien t patient was instructed to keep well-hydrated. [...] W/WO Contrast Result: Comments: See Note; NOTES: [facility] Imaging Services [address] [place] [address] Brain W/WO Contrast MR#: [id number] Acct: [id number] Name: TITA LAW Rep #: [id number] : 1960 F 57 From: Pedro Luis Akhtar MD PCP: Martha Brown DO Status: REG CLI Study: Brain W/WO Contrast Date of Exam: 11/06/17 Exam# [id number] Ordering Dr: Martha Brown DO STUDY: MRI [...] Service support , CC: Martha Brown DO Truck Manager: Signed 31-Aug-2017 SCREENING MAMM (CAD), BILAT Result: Comments: See Note; NOTES: [facility] Imaging Services [address] [place] [address] SCREENING MAMM (CAD), BILAT MR#: [id number] Acct: [id number] Name: TITA LAW Rep #: [id number] : 1960 F 57 From: Barrera Galeana MD PCP: Martha Brown DO Status: REG CLI Study: SCREENING MAMM (CAD), BILAT Date of Exam: 08/31/17 Exam# [id number] Ordering Dr: Martha Brown DO MAMMOGRAPHY - [...] biopsy of a clini griselda suspicious abnormality. [id number] Electronically Signed: Barrera Galeana MD at 14:24 EDT Tel [phone], Service support , CC: Martha Brown DO Truck Manager: Signed 31-Aug-2017 Dexa Bone Density Study Result: Comments: See Note; NOTES: [facility] Imaging Services [address] [place] [address] Dexa Bone Density Study MR#: [id number] Acct: [id number] Name: TITA LAW Rep #: [id number] : 1960 F 57 From: Barrera Galeana MD PCP: Martha Brown DO Status: REG CLI Study: Dexa Bone Density Study Date of Exam: 08/31/17 Exam# [id number] Ordering Dr: Martha Brown DO STUDY: D [...] Barrera Galeana MD at 15:16 EDT Tel [phone], Service support , CC: Martha Brown DO Truck Manager: Signed 27-Jul-2017 PT D/C Summary (1) Result: Comments: See Note; NOTES: [facility] Physical Therapy [facility] [address] [place] [address]. [address] [place] [address] Fax REHABILITATION SERVICES [facility] EMERGENCY DEPARTMENT SUMMARY MR#: [id number] Acct: [id number] Name: TITA LAW Rep #: [id number] : 1960 57 From: Alan Miller PT, Cert. MDT, OCS Referring DrIfeanyi: Maddie MCRAE Prebish Status: REG RCR Insu zafar: [facility] SELF PAY INSURANCE HP - PT D/C [...] please feel free to call me at [phone]. Thank you for the referral of this patient. Sincerely, Alan Miller PT, <Electronically signed by Alan yuan PT, Cert. PARRISH, OCS> 07/27/17 1739 CC: Maddie Fernandezbish; Martha Brown DO LISHA Signed 28-Jun-2017 Forearm 2 Views Result: Comments: See Note; NOTES: [facility] Imaging Services [address] [place] [address] Forearm 2 Views MR#: [id number] Acct: [id number] Name: TITA LAW Rep #: [id number] : 1960 F 56 From: Jam Thomas MD PCP: Martha Brown DO Status: REG CLI Study: Forearm 2 Views Date of Exam: 06/28/17 Exam# [id number] Ordering Dr: Martha Brown DO STUDY: X-RAY [...] Service support , CC: Martha Brown DO Truck Manager: Signed 28-Jun-2017 Wrist min 3 Views Result: Comments: See Note; NOTES: [facility] Imaging Services [address] [place] [address] Wrist min 3 Views MR#: [id number] Acct: [id number] Name: ANITITA Rita Rep #: [id number] : 1960 F 56 From: Jam Thomas MD PCP: Martha Brown DO Status: REG CLI Study: Wrist min 3 Views Date of Exam: 06/28/17 Exam# [id number] Ordering Dr: Martha Brown DO STUDY: X-RAY [...] Service support , CC: Martha Brown DO Truck Manager: Signed 28-Jun-2017 Brain/Head without Contrast Result: Comments: See Note; NOTES: [facility] Imaging Services [address] [place] [address] Brain/Head without Contrast MR#: [id number] Acct: [id number] Name: TITA LAW Rita Rep #: [id number] : 1960 F 56 From: Krzysztof Rivera MD PCP: Martha Brown DO Status: REG CLI Study: Brain/Head without Contrast Date of Exam: 06/28/17 Exam# [id number] Ordering Dr: Martha Brown DO STUDY : [...] Service support , CC: Martha Brown DO Truck Manager: Signed 01-May-2017 Chest PA and Lateral Result: Comments: See Note; NOTES: [facility] Imaging Services [address] [place] [address] Chest PA and Lateral MR#: [id number] Acct: [id number] Name: TITA LAW Rep #: [id number] : 1960 F 56 From: Murray Palma MD PCP: Martha Brown DO Status: REG CLI Study: Chest PA and Lateral Date of Exam: 05/01/17 Exam# [id number] Ordering Dr: Martha Brown DO STUDY: X-RAY [...] MD at 17:05 EST , Service support [phone], CC: Martha Brown DO Truck Manager: Signed 15-Apr-2017 Discharge Instruction Result: Comments: See Note; NOTES: [facility] Medical Records Department [address] [place] [address] Discharge Instruction 04/15/171812 MR#: [id number] Acct: [id number] Name: TITA MONTOYA Rep #: [id number] : 1960 56 From: Dusty Dumont MD PCP: Martha Brown DO Status: REG ER ED Disposition - Plan for ED Patient: Chief Complaint: Shortness of Breath Instructions: ED Pn wilbert Adult Prescriptions: Levofloxacin [Levaquin] 500 mg PO DAILY #7 tab Referrals: Martha Brown DO [Primary Care Provider] - What to do if you have Problems For any increased pain, shortness of b reath, bleeding, nausea or vomiting, chest pain, or any unexpected problems, contact your Primary Care Provider. Call [facility] ([phone]) or report to the closest Emergency Room. Call 911 if necessary. 04/15/171813 <Electronically signed by Dusty Dumont MD> Date Dusty Dumont MD Cosigner Signature (If Indicated): Da te CC: Martha Brown DO 15-Apr-2017 Emergency Department Summary Result: Comments: See Note; NOTES: [facility] Medical Records Department [address] [place] [address] Emergency Department Summary 04/15/17 1811 MR#: [id number] Acct: [id number] Name: TITA LAW Rep #: [id number] : 1960 56 From: Dusty Dumont MD PCP: Martha Brown DO Status: REG ER - ER [...] acquired pneumonia This note was generated with [employer] software. It may contain incorrect words, spelling, [...] your Primary Care Provider. Call [facility] ([phone]) or report to the closest Emergency Room. Call 911 if necessary. 04/15/171812 <Electronically signed by Art Dumont MD> Date Dusty Dumont MD Cosigner Signature (If Indicated): Date CC: Martha Brown DO 15-Apr-2017 Chest PA and Lateral Result: Comments: See Note; NOTES: [facility] Imaging Services [address] [place] [address] Chest PA and Lateral MR#: [id number] Acct: [id number] Name: TITA LAW Rep #: [id number] : 1960 F 56 From: Erasto Persaud MD PCP: Martha Brown DO Status: REG ER Study: Chest PA and Lateral Date of Exam: 04/15/17 Exam# [id number] Ordering Dr: Dusty Dumont MD STUDY: X-RAY [...] support , CC: Martha Brown DO; Dusty Dumnot MD Truck Manager: Signed 03-Apr-2017 Inital Evaluation (1) - PT Result: Comments: See Note; NOTES: [facility] Physical Therapy [facility] [facility]. [address] [place] [address] Fax REHABILITATION SERVICES INITIAL EVALUATION MR#: [id number] Acct: [id number] Name: TITA LAW Rep #: [id number] : 1960 56 From: Alan Miller PT, Cert. MDT, OCS Referring Dr.: Maddie Munoz Status: REG RCR Insur ance: [facility] SELF PAY INSURANCE Patient's Visit Information TITA LAW is a 56 year old F referred to Physical Therapy by [facility] [employer] with a diagnosis of L-IVDD,L- STENOSIS,L-SPONDYLOPATHY,MYALGIA. Date [...] Patient has KENDALL/migraines . Patient has mus nate spasms in cervical-lumbar. Patient has had prior [...] to be FAXED BACK to us at [phone] for Medicare purposes. Please let me know if there are questions or concerns regarding this plan of care. Physician Signature: Date: <Electronically signed by Alan Miller PT Cert. T, OCS> 04/03/17 1017 CC: Maddie Munoz; Martha Brown DO LISHA Signed For Medicare only, by signing this I certify the plan of care. Physicians Signature Date 08-Mar-2017 Thyroid Result: Comments: See Note; NOTES: [facility] Imaging Services [address] [place] [address] Thyroid MR#: [id number] Acct: [id number] Name: TITA LAW Rep #: [id number] : [birth year] F 56 From: Barrera Galeana MD PCP: Martha Brown DO Status: REG CLI Study: Thyroid Date of Exam: 03/08/17 Exam# [id number] Ordering Dr: Martha Brown DO STUDY: THYROID [...] Galeana MD at 14:4 9 EST Tel [phone], Service support , CC: Martha Brown DO Truck Manager: Signed 06-Dec-2016 TXT - Blood Flow Screening Result: Comments: See Note; NOTES: [facility] Cardiovascular Services [address] [place] [address] 12/06/16 0815 MR#: [id number] Acct: [id number] Name: TITA LAW Rep #: [id number] : 1960 56 From: Shane Cotto MD Attending Dr: Martha Brown DO Status: REG REF Ordering Dr: Date: 12/06/16 Location: [facility] Sex: F C Admitted: Reason For Study: [...] Sharif e Dictated: 12/06/16814 Date Transcribed: 12/06/162139 Truck Manager: Signed 13-Sep-2016 Stress Report Result: Comments: See Note; NOTES: [facility] Cardiovascular Services [address] [place] [address] Verdana 4d MR#: [id number] Acct: [id number] Name: TITA LAW Rep #: [id number] [...] patient was injected with 32.8 mCi of Ornamental Ironworker Helper 99m Cardiolite and subsequently stress SPECT Cardiolite [...] of 85%. This note was generated with [employer]19 software. It may contain incorrect words, spelling, and punctuation that were not noted in checking the not e before signing. 09/13/162053 <Electronically signed by Gato Blair MD> Date Gato Blair MD CC: Martha Brown DO; Gato Blair MD Date Dictated: 09/13/162046 Date Transcribed: 09/13/162046 Truck Manager: PM Signed 30-Aug-2016 Electroencephalogram Result: Comments: See Note; NOTES: [facility] Pulmonary Services/Neurology [address] [place] [address] MR#: [id number] Acct: [id number] Name: TITA LAW Rep #: [id number] : 1960 56 From: Jacinto Salazar MD [...] DO Date Dic tated: 08/29/161720 Date Transcribed: 08/29/161720 Truck Manager: RSR Signed 29-Aug-2016 SCREENING MAMM (CAD), BILAT Result: Comments: See Note; NOTES: [facility] Imaging Services [address] [place] [address] Verdana 4d SCREENING MAMM (CAD), BILAT MR#: [id number] Acct: [id number] Name: GINNY LAW Rep #: [id number] : 1960 F 56 From: Krzysztof White MD PCP: Martha Brown DO Status: REG CLI Study: SCREENING MAMM (CAD), BILAT Date of Exam: 08/29/16 Exam# [id number] Ordering Dr: Martha Brown DO MAMMOGRAPHY - [...] delay biopsy of a clinically suspicious abnormality. [id number] Electronically Signed: Dread White MD at 8:46 EDT , Service support , CC: Martha Brown DO Truck Manager: Signed 25-Aug-2016 Echocardiogram Complete Result: Comments: See Note; NOTES: [facility] Cardiovascular Services [address] [place] [address] Echo Complete 08/25/16 1207 MR#: [id number] Acct: [id number] Name: TITA LAW Rep #: [id number] : 1960 56 From: Conrado Nolasco MD Attending Dr: Martha Brown DO Status: REG CLI Ordering Dr: Martha Brown DO Date: 08/25/16 Location: [facility] Sex: F C Admitted: Reason For Study: [...] Physician: Martha Brown D.O. Performed By: Myra Price RDCS Electronically signed by: Conrado Nolasco MD on 017 01:18 PM 08/25/16 1318 Date Conrado Nolasco MD CC: Martha Brown DO Date Dictated: 08/25/16 1207 Date Transcribed: 08/25/16 1318 Truck Manager: Signed 09-Aug-2016 Chest PA and Lateral Result: Comments: See Note; NOTES: [facility] Imaging Services [address] [place] [address] Verdana 4d Chest PA and Lateral MR#: [id number] Acct: [id number] Name: TITA LWA Marnie p #: [id number] : 1960 F 56 From: Dustin Villatoro DO PCP: Martha Brown DO Status: REG CLI Study: Chest PA and Lateral Date of Exam: 08/09/16 Exam# [id number] Ordering Dr: Martha Brown DO STUDY: X-RAY [...] Dustin Villatoro DO at 22:20 EDT T dominique [phone], Service support , CC: Martha Brown DO Truck Manager: Signed 21-Jul-2016 Thyroid Result: Comments: See Note; NOTES: [facility] Imaging Services [address] [place] [address] Verdana 4d Thyroid MR#: [id number] Acct: [id number] Name: TITA LAW Rep #: [id number] : 1960 F 56 From: Quentin Inman DO PCP: Martha Brown DO Status: REG CLI Study: Thyroid Date of Exam: 07/21/16 Exam# [id number] Ordering Dr: Martha Brown DO STUDY: THYROID [...] Service support , CC: Martha Brown DO Truck Manager: Signed 23-Jun-2016 Cerv Spine 4 or 5 Views Result: Comments: See Note; NOTES: [facility] Imaging Services [address] [place] [address] Verdana 4d Cerv Spine 4 or 5 Views MR#: [id number] Acct: [id number] Name: TITA LAW Rep #: [id number] : 1960 F 55 From: Hugo Pearce MD PCP: Martha Brown DO Status: REG CLI Study: Cerv Spine 4 or 5 Views Date of Exam: 06/23/16 Exam# [id number] Ordering Dr: Martha Brown DO STUDY: X-RAY [...] Service support , CC: Martha Brown DO Truck Manager: Signed 23-Jun-2016 Cerv Spine 4 or 5 Views Result: Comments: See Note; NOTES: [facility] Imaging Services [facility] [place] [address] Verdaisy 4d Cerv Spine 4 or 5 Views MR#: [id number] Acct: [id number] Name: TITA LAW Rep #: [id number] : 1960 F 55 From: Hugo Pearce MD PCP: Martha Brown DO Status: REG CLI Study: Cerv Spine 4 or 5 Views Date of Exam: 06/23/16 Exam# [id number] Ordering Dr: Martha Brown DO ADDENDUM by [...] at 15:59 EDT Tel , Service support [phone], 06/28/16 3202 Date cc: Martha Brown DO * Signed [...] support , Fax CC: Martha Brown DO Truck Manager: Signed 23-Jun-2016 Chest PA and Lateral Result: Comments: See Note; NOTES: [facility] Imaging Services [address] [place], [place] [address] [place] [address] Verdana 4d Chest PA and Lateral MR#: [id number] Acct: [id number] Name: TITA LAW Marnie p #: [id number] : 1960 F 55 From: Hugo Pearce MD PCP: Martha Brown DO Status: REG CLI Study: Chest PA and Lateral Date of Exam: 06/23/16 Exam# [id number] Ordering Dr: Martha Brown TUDY: X-RAY CHEST REASON FOR EXAM: Female, [...] Service support , CC: Martha Brown DO Truck Manager: Signed 02-Jun-2016 Abdomen WITH IV Contrast Result: Comments: See Note; NOTES: [facility] Imaging Services [address] [place] [address] Verdana 4d Abdomen WITH IV Contrast MR#: [id number] Acct: [id number] Name: BESSY LAW Rep #: [id number] : 1960 F 55 From: Isela Wright MD PCP: Martha Brown DO Status: REG CLI Study: Abdomen WITH IV Contrast Date of Exam: 06/02/16 Exam# [id number] Ordering Dr: Martha Brown TUDY: CT ABDOMEN [...] MD at 7:28 EDT , Service support [phone], CC: Martha Brown DO Truck Manager: Signed 02-Jun-2016 Abdomen WITH IV Contrast Result: Comments: See Note; NOTES: [facility] Imaging Services [address] [place] [address] Verdana 4d Abdomen WITH IV Contrast MR#: [id number] Acct: [id number] Name: MANDY LAWSAVANNAH Sean Rep #: [id number] : 1960 F 55 From: Isela Wrgiht MD PCP: Martha Brown DO Status: REG CLI Study: Abdomen WITH IV Contrast Date of Exam: 06/02/16 Exam# [id number] Ordering Dr: Martha Brown DO A DDENDUM [...] support , 06/28/16 0005 Date cc: Martha Brown DO * Signed STUDY: CT ABDOMEN WITH [...] Normal abdominal wall. There are diffuse degenerative jonatan nges of the visualized lumbar spine. Status post lumbar fusion. CT/Abdomen WITH IV Contrast IMPRESSION: Stable right adrenal mass. There is no a cute abdomen and pelvic pathology. There is no significant interval change. Electronically Signed: Isela Wright MD at 7:28 EDT , Service support [phone], Fax CC: Martha Borwn DO Truck Manager: Signed 19-May-2016 Hepatobilliary Img w/Pharm Int Result: Comments: See Note; NOTES: [facility] Imaging Services [address] [place] [address] Verdana 4d Hepatobilliary Img w/Pharm Int MR#: [id number] Acct: [id number] Name: TITA LAW Rep #: [id number] : 1960 F 55 From: Mario Olivo DO PCP: Martha Brown DO Status: REG CLI Study: Hepatobilliary Img w/Pharm Int Date of Exam: 05/19/16 Exam# [id number] Ordering Dr: Carrington Brown DO CLINICAL: 55-year-old [...] 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 (Yakelin clemente t al, Journal of Nuclear Medicine 32:1695, 1990). 2. There is scintigraphic evidence of post CCK duodenal-gastric reflux. (Roger england al, Nucl Med Janel Joan Press pg. 35, 1980). Electronically Signed : Mario Olivo DO at 22:51 EDT Tel , Service support [phone], CC: Martha Brown DO Truck Manager: Signed 12-May-2016 Liver Result: Comments: See Note; NOTES: [facility] Imaging Services [address] [place] [address] Vernadana 4d Liver MR#: [id number] Acct: [id number] Name: TITA LAW Rep #: [id number] : 1960 F 55 From: Barrera Galeana MD PCP: Martha Brown DO Status: REG CLI Study: Liver Date of Exam: 05/12/16 Exam# [id number] Ordering Dr: Martha Brown DO STUDY: ABDOMINAL [...] Barrera Galeana MD at 11:28 EDT Tel [phone], Service anthony pport [phone], CC: Martha Brown DO Truck Manager: Signed 20-Apr-2016 NCS and/or EMG Patient Result: Comments: See Note; NOTES: [facility] Pulmonary Services/Neurology [address] [place] [address] NCS and/or EMG Patient MR#: [id number] Acct: [id number] Name: TITA LWA Rep #: [id number] : 1960 55 From: Pardeep Read MD Referring Dr: Eusebio Braswell MD Status: REG I Ordering Dr: Eusebio Braswell MD Date: 04/20/16 Location: [facility] Sex: F C DATE OF SERVICE: 2016 [...] nerve. Pardeep Read MD T: NTS JOB: [id number] 04/20/16 1556 <Electronically signed by Pardeep Read MD> Date Pardeep Read MD CC: Martha Brown DO; Pardeep Read MD; Eusebio Braswell MD Date Dictated: 04/20/16 1107 Date Transcribed: 04/20/161106 Truck Manager: Signed 15-Mar-2016 Fluoro Guided Lumbar Puncture Result: Comments: See Note; NOTES: [facility] Imaging Services [address] [place] [address] Verdana 4d Fluoro Guided Lumbar Puncture MR#: [id number] Acct: [id number] Name: Niecy LAW Rep #: [id number] : 1960 F 55 From: Barrera Galeana MD PCP: Martha Brown DO Status: REG CLI Study: Fluoro Guided Lumbar Puncture Date of Exam: 03/15/16 Exam# [id number] Ordering Dr: Pepper Benoit PROCEDURE: Fluoroscopic guided [...] procedure were explained to the patient. [facility] risks of bleeding, infection, and [...] Barrera Galeana MD at 10:09 EST Tel [phone], Service support [phone], CC: Pepper Barr NP; Martha Brown DO Truck Manager: Signed 11-Mar-2016 Thyroid Result: Comments: See Note; NOTES: [facility] Imaging Services [address] [place] [address] Verdana 4d Thyroid MR#: [id number] Acct: [id number] Name: TITA LAW Rep #: [id number] : 1960 F 55 From: Barrera Galeana MD PCP: Martha Brown DO Status: REG CLI Study: Thyroid Date of Exam: 03/11/16 Exam# [id number] Ordering Dr: Martha Brown DO STUDY: THYROID [...] Barrera Galeana MD at 15:57 EST Tel [phone], Service support [phone], CC: Martha Brown DO Truck Manager: Signed 10-Feb-2016 Brain W/WO Contrast Result: Comments: See Note; NOTES: [facility] Imaging Services [address] [place] [address] Verdaligia 4d Brain W/WO Contrast MR#: [id number] Acct: [id number] Name: TITA LAW Rep #: [id number] : 1960 F 55 From: Madeleine Villar MD PCP: Martha Brown DO Status: REG CLI Study: Brain W/WO Contrast Date of Exam: 02/10/16 Exam# [id number] Ordering Dr: Martha Brown DO STUDY: MRI [...] MD at 23:33 EST , Service support [phone], CC: Martha Brown DO Truck Manager: Signed 25-Jan-2016 Cerv Spine 2 or 3 Views Result: Comments: See Note; NOTES: [facility] Imaging Services [address] [place] [address] Verdana 4d Cerv Spine 2 or 3 Views MR#: [id number] Acct: [id number] Name: TITA LAW Rep #: [id number] : 1960 F 55 From: Julio Cesar Soto MD PCP: Martha Brown DO Status: REG CLI Study: Cerv Spine 2 or 3 Views Date of Exam: 01/25/16 Exam# [id number] Ordering Dr: Matt Wilburn STUDY : X-RAY [...] FACR at 16:52 EST , Service support [phone], CC: MATT WILBURN; Martha Brown DO Truck Manager: Signed 25-Jan-2016 Spine Cervical (Routine) Result: Comments: See Note; NOTES: [facility] Imaging Services [address] [place] [address] Vernadaligia 4d Spine Cervical (Routine) MR#: [id number] Acct: [id number] Name: BESSY LAW Rep #: [id number] : 1960 F 55 From: Julio Cesar Soto MD PCP: Martha Brown DO Status: REG CLI Study: Spine Cervical (Routine) Date of Exam: 01/25/16 Exam# [id number] Ordering Dr: Matt Wilburn DY: MRI CERVICAL [...] FACR at 15:55 EST , Service support [phone], CC: MATT WILBURN; Martha Brown DO Truck Manager: Signed 31-Dec-2015 L/S Spine Bending Flex/Ext Result: Comments: See Note; NOTES: [facility] Imaging Services [address] [place] [address] Verdana 4d L/S Spine Bending Flex/Ext MR#: [id number] Acct: [id number] Name: GINNY LAW Rep #: [id number] : 1960 F 55 From: Barrera Galeana MD PCP: Martha Brown DO Status: REG CLI Study: L/S Spine Bending Flex/Ext Date of Exam: 12/31/15 Exam# [id number] Ordering Dr: Carrington Wilburn STUDY: X-RAY - [...] Galeana MD 4 at 11:17 EDT Tel [phone], Service support [phone], CC: MATT WILBURN; Martha Brown DO Truck Manager: Signed 24-Dec-2015 Chest 1 View (Portable) Result: Comments: See Note; NOTES: [facility] Imaging Services [address] [place] [address] Verdana 4d Chest 1 View (Portable) MR#: [id number] Acct: [id number] Name: BESSY LAW Rep #: [id number] : 1960 F 55 From: Barrera Galeana MD PCP: Martha Brown DO Status: REG ER Study: Chest 1 View (Portable) Date of Exam: 12/24/15 Exam# [id number] Ordering Dr: Rashad Acosta MD STUDY: X-RAY CHEST REASON FOR EXAM: Female, 55 years old. Cough and fever. TECHNIQUE: Single AP portable view of the chest. COMPARISON: Comparison is made with prior study dated February 09. FINDINGS: The lungs are clear and expanded. [...] Barrera Galeana MD at 15:13 EDT Tel [phone], Service support [phone], CC: Martha Brown DO; Rashad Acosta MD Truck Manager: Signed 10-Oct-2015 Spine Lumbar without Contrast Result: Comments: See Note; NOTES: [facility] Imaging Services [address] [place] [address] Agnes 4d Spine Lumbar without Contrast MR#: [id number] Acct: [id number] Name: TITA LAW Rep #: [id number] : 1960 F 55 From: Quentin Inman DO PCP: Martha Brown DO Status: REG CLI Study: Spine Lumbar without Contrast Date of Exam: 10/10/15 Exam# [id number] Ordering Dr: Ruben Wilburn STUDY: CT LUMBAR [...] some volume loss. Electronically Signed: Quentin Inman DO at 16:29 EDT Tel , Service support [phone], CC: MATT WILBURN; Martha Brown DO Truck Manager: Signed 07-Oct-2015 Spine Thoracic (Routine) Result: Comments: See Note; NOTES: [facility] Imaging Services [address] [place] [address] Verdana 4d Spine Thoracic (Routine) MR#: [id number] Acct: [id number] Name: SARINA LAW IS Rep #: [id number] : 1960 F 55 From: aBsil Culver MD PCP: Martha Brown DO Status: REG CLI Study: Spine Thoracic (Routine) Date of Exam: 10/07/15 Exam# [id number] Ordering Dr: MANDEEP DILLON MD STUDY: MRI [...] at 16:32 EDT Tel , Service support [phone], CC: Martha Brown DO; MANDEEP DILLON MD Truck Manager: Signed 29-Sep-2015 ELECTROCARDIOGRAM, COMPLETE (ECG) (11390) Comments: ekg showed normal sinus rhythym, normal axis, no acute st/t wave changes Result: [MEASUREMENTS ANALYSIS] Date of Test: 09/29/2015 10:02:56; Heart Rate: 70; MT Interval: 158; QRS: 90; QT Interval: 396; Corrected QT Interval (QTc): 413; P Wave [place]: 73; QRS Wave [place]: 71; T Wave [place]: 67; Blood Pressure: 110/70 [ECG DIAGNOSTIC STATEMENTS] Date of Test: 09/29/2015 10:02:56; Summary: Sinus Rhythm WITHIN NORMAL LIMITS 03-Sep-2015 Spine Lumbar (Routine) Result: Comments: See Note; NOTES: [facility] Imaging Services [address] [place] [address] Verdana 4d Spine Lumbar (Routine) MR#: [id number] Acct: [id number] Name: GUILLE INFANTETITA Rep #: [id number] : 1960 F 55 From: Julio Cesar Soto MD PCP: Martha Brown DO Status: REG CLI Study: Spine Lumbar (Routine) Date of Exam: 09/03/15 Exam# [id number] Ordering Dr: Martha Brown DO STUDY: MRI [...] FACR at 11:54 EDT , Service support [phone], CC: Martha Brown DO Truck Manager: Signed 27-Aug-2015 Bilat Scrn Digital AND CAD Result: Comments: See Note; NOTES: [facility] Imaging Services [address] [place] [address] Verdana 4d Bilat Scrn Digital AND CAD MR#: [id number] Acct: [id number] Name: TITA LAW Rep #: [id number] : 1960 F 55 From: Barrera Galeana MD PCP: Martha Brown DO Status: REG CLI Study: Cara Huntn Digital AND CAD Date of Exam: 08/27/15 Exam# [id number] Orderi ng Dr: Martha Brown DO MAMMOGRAPHY - BILATERAL [...] delay biopsy of a clinically suspicious abnormality. [id number] Electronically Signed: Barrera Galeana MD a t 8:51 EDT Tel [phone], Service support [phone], CC: Martha Brown DO Truck Manager: Signed 27-Aug-2015 Dexa Bone Density Study (HP) Result: Comments: See Note; NOTES: [facility] Imaging Services [address] [place] [address] Verdana 4d Dexa Bone Density Study (HP) MR#: [id number] Acct: [id number] Name : TITA LAW Rep #: [id number] : 1960 F 55 From: Barrera Galeana MD PCP: Martha Brown DO Status: [facility] Study: Dexa Bone Density Study (HP) Date of Exam: 08/27/15 Exam# [id number] Or dering Dr: Martha Brown DO STUDY: [...] Barrera Galeana MD at 14:42 EDT Tel [phone], Service support [phone], CC: Martha Brown DO Truck Manager: Signed 27-Aug-2015 Hip 2-3 Views with Pelvis Result: Comments: See Note; NOTES: [facility] Imaging Services [address] [facility] [place] [address] Verdana 4d Hip 2-3 Views with Pelvis MR#: [id number] Acct: [id number] Name: TITA AMBROCIO Rep #: [id number] : 1960 F 55 From: Murray Palma MD PCP: Martha Brown DO Status: REG CLI Study: Hip 2-3 Views with Pelvis Date of Exam: 08/27/15 Exam# [id number] Ordering Dr: Martha Johnson DO STUDY: X-RAY [...] MD at 16:31 EDT , Service support [phone], RAD/Hip 2-3 Views with Pelvis IMPRESSION: Osteopenia with post-surgical changes in the lower lumbar spine. No acute pathology identified. Electr onically Signed: Murray Palma MD at 16:31 EDT , Service support [phone], CC: Martha Brown DO Truck Manager: Signed 09-Feb-2015 Chest PA and Lateral Result: Comments: See Note; NOTES: [facility] Imaging Services [address] [place] [address] Verdana 4d Chest PA and Lateral MR#: [id number] Acct: [id number] Name: TITA MCLEAN Rep #: [id number] : 1960 F 54 From: Barrera Galeana MD PCP: Martha Brown DO Status: REG CLI Study: Chest PA and Lateral Date of Exam: 02/09/15 Exam# [id number] Ordering Dr: Abby Rivera STUDY: X-RAY CHEST [...] Barrera Galeana MD at 15:21 EST Tel [phone], Service support [phone], RAD/Chest PA and Lateral IMPRESSION: Hyperinflation. No acute abnormality is seen. Electronically Signed: Barrera Galeana MD at 15:21 EST Tel [phone], Service support [phone], CC: Abby Rivera; Martha Brown DO Truck Manager: Signed 30-Jun-2014 Bilat Scrn Digital AND CAD Result: Comments: See Note; NOTES: [facility] Imaging Services [address] [place] [address] Breast Imaging Report MR#: [id number] Acct: [id number] Name: MANDY LAWLIS Rep #: [id number] : 1960 F 53 From: Barrera Galeana MD PCP: Martha Brown DO Status: REG CLI Study: Bilat Scrn Digital AND CAD Date of Exam: 06/30/14 Exam# [id number] Ordering Dr: Martha Brown DO MAMMOGRAPHY - [...] Galeana MD at 9 :06 EDT Tel [phone], Service support [phone], CC: Martha Brown DO Truck Manager: Signed 07-Oct-2013 Extremity Lower WITH Contrast Result: Comments: See Note; NOTES: [facility] Imaging Services [address] [place] [address] CAT Scan Report MR#: [id number] Acct: [id number] Name: TITA LAW Rep #: [id number] : 1960 F 53 From: Barrera Galeana MD PCP: Martha Brown DO Status: REG CLI Study: Extremity Lower WITH Contrast Date of Exam: 10/07/13 Exam# [id number] Ordering Dr: Martha Brown DO STUDY: CT [...] Barrera Galeana MD at 15:02 EDT Tel [phone], Service support [phone], CC: Martha Brown DO Truck Manager: Signed 25-Sep-2013 Forearm 2 Views Result: Comments: See Note; NOTES: [facility] Imaging Services [address] [place] [address] Radiology Report MR#: [id number] Acct: [id number] Name: ANITITA Rep #: [id number] : 1960 F 53 From: Barrera Galeana MD PCP: Martha Brown DO Status: REG CLI Study: Forearm 2 Views Date of Exam: 09/25/13 Exam# [id number] Ordering Dr: Martha Brown DO STUDY: X-RAY [...] Barrera Galeana MD at 16:16 EDT Tel [phone], Service support [phone], RAD/Forearm 2 Views IMPRESSION: Normal x-ray examination of the radius and ulna. Electronically Signed: Barrera Galeana MD at 16:16 EDT Tel [phone], Service support [phone], CC: Martha Brown DO Truck Manager: Signed 25-Sep-2013 Hip min 2 Views Result: Comments: See Note; NOTES: [facility] Imaging Services [address] [place] [address] Radiology Report MR#: [id number] Acct: [id number] Name: ANITITA INFANTE Rep #: [id number] : 1960 F 53 From: Barrera Galeana MD PCP: Martha Brown DO Status: REG CLI Study: Hip min 2 Views Date of Exam: 09/25/13 Exam# [id number] Ordering Dr: Martha Brown DO STUDY: X-RAY [...] Barrera Galeana MD at 16:18 EDT Tel [phone], Service support [phone], Fax CC: Martha Brown DO Truck Manager: Signed 25-Sep-2013 Pelvis 1 or 2 Views Result: Comments: See Note; NOTES: [facility] Imaging Services [address] [place] [address] Radiology Report MR#: [id number] Acct: [id number] Name: TITA LAW Rep #: [id number] : 1960 F 53 From: Khang Braun MD PCP: Martha Brown DO Status: REG CLI Study: Pelvis 1 or 2 Views Date of Exam: 09/25/13 Exam# [id number] Ordering Dr: Martha Brown DO STUDY: X-RAY [...] MD at 16:24 EDT , Service support [phone], 0063 RAD/Pelvis 1 or 2 Views IMPRESSION: Normal x-ray examination of the pelvis. Electronically Signed: Khang Braun MD at 16:24 EDT , Service support [phone], CC: Martha Brown DO Truck Manager: Signed 25-Sep-2013 Thoracic Spine 3 Views Result: Comments: See Note; NOTES: [facility] Imaging Services [address] [place] [address] Radiology Report MR#: [id number] Acct: [id number] Name: TITA LAW Rep #: [id number] : 1960 F 53 From: Barrera Galeana MD PCP: Martha Brown DO Status: REG CLI Study: Thoracic Spine 3 Views Date of Exam: 09/25/13 Exam# [id number] Ordering Dr: Martha Brown DO STUDY: X-RAY [...] Ac Galeana MD at 16:19 EDT Tel [phone], Service support [phone], RAD/Thoracic Spine 3 Views IMPRESSION: Degenerative changes. Elect ronically Signed: Brarera Galeana MD at 16:19 EDT Tel [phone], Service support [phone], CC: Martha Brown DO Truck Manager: Signed 24-Jun-2013 Bilat Scrn Digital & CAD Result: Comments: See Note; NOTES: [facility] Imaging Services [address] [place] [address] Breast Imaging Report MR#: [id number] Acct: [id number] Name: TITA LAW Rep #: [id number] : 1960 F 52 From: Barrera Galeana MD PCP: Martha Brown DO Status: REG CLI Exam# [id number] Ordering Dr: Shahla Myers MD MAMMOGRAPHY - BILATERAL SCREENING REASON FOR EXAM: F mustapha, 52 years old. Routine annual screening examination. [...] Barrera Galeana MD at 9:32 EDT Tel [phone], Service support [phone], F ax [phone] CC: Martha Brown DO; Shahla Myers MD Truck Manager: Signed 14-May-2013 Chest PA and Lateral Result: Comments: See Note; NOTES: [facility] Imaging Services [address] [place] [address] Radiology Report MR#: [id number] Acct: [id number] Name: TITA LAW Rep #: [id number] : 1960 F 52 From: Barrera Galeana MD PCP: Martha Brown DO Status: REG CLI Study: Chest PA and Lateral Date of Exam: 05/14/13 Exam# [id number] Ordering Dr: Martha Brown DO STUDY: X [...] M.D. at 14:47 EDT , Service support [phone], CC: Martha Brown DO Truck Manager: Signed Family History Unknown Family Member Name [...] kg/m2 Body Surface Area Calculated 1.8 m2 17-Gvm-146599:15 Comments: lmhtjdomxu262/72, 60sitting 98/56 67standing 94/58, 78 Temperature 97.5 [...] kg/m2 Body Surface Area Calculated 1.78 m2 :25 Temperature 97.4 f Comments: Method: Temporal Pulse [...] kg/m2 Body Surface Area Calculated 1.73 m2 :13 Temperature 97.7 f Comments: Method: Temporal Pulse [...] kg/m2 Body Surface Area Calculated 1.67 m2 : Temperature 98.1 f Comments: Method: Temporal Pulse [...] Value Details :56 CBC W/Diff, Automated Comments: [facility] [address] [place], [place], [phone] Absolute Lymph 1.33 {X10_3/ul} (Normal) Range: 0.83-4.51 [...] 4.2-5.4 WBC 14.0 K/mm3 (Abnormal) Range: 4.4-11.0 81-Uez-944131:56 Comprehensive Metabolic Profil Comments: [facility] [address] [place], [place], [phone] GAP 9 (Normal) Range: 5-15 CO2 26.0 [...] Comments: Please note revised GLUCOSE reference range mufysvtpf15/02/2018. 93-Oiq-904918:01 Urinalysis, Office (46027) UA - LEUKOCYTE ESTERASE Large (Normal) UA - NITRITE Positive (Normal) URINE UROBILINGN SPRING TIMED 2 mg/dL (Normal) UA - PROTEIN 300 mg/dL (Normal) UA - PH 7 (Normal) UA - BLOOD Hemolyzed Large (Normal) UA - SPECIFIC GRAVITY 1.020 (Normal) UA - KETONES 15 mg/dL (Abnormal) UA - BILIRUBIN Large (Normal) UA - GLUCOSE Negative (Normal) 0-Pxo-643124:45 Culture, Urine Comments: [facility] [address] [place], [address] CUUR See Note (Normal) Comments: Urine CultureORGANISM [...] $ >=320 R(NF) indicates non-formulary drug at [facility]. Approval by Infectious Disease Specialist required before non-formulary drugs may be ordered and/or dispensed. 8-Yfk-784333:45 Urinalysis, Complete Comments: How was Urine Obtained? CLEAN [facility] [address] [place], [address] CA OX CRYSTAL 1+ {/hpf} (Normal) MUCUS, [...] (Normal) CLARITY Cloudy (Normal) COLOR Yellow (Normal) 36-Xtq-436917:49 CBC (AUTO) (65443) Comments: PATIENT NOT FASTINGPERFORMED BY: [facility] [address] [facility] [id number] Platelets 303 {x10E3/uL} (Normal) Range: 150-379 RDW 14.5 % (Normal) Range: 12.3-15.4 MCHC 33.9 g/dL (Normal) Range: 31.5-35.7 MCH 32.4 pg (Normal) Range: 26.6-33.0 MCV 96 fL (Normal) Range: 79-97 Hematocrit 37.5 % (Normal) Range: 34.0-46.6 Hemoglobin 12.7 g/dL (Normal) Range: 11.1-15.9 RBC 3.92 {x10E6/uL} (Normal) Range: 3.77-5.28 WBC 7.9 {x10E3/uL} (Normal) Range: 3.4-10.8 71-Mlc-290531:49 MICROALBUMIN: CREATININE RATIO Comments: PATIENT NOT FASTINGPERFORMED BY: [employer] [facility] [facility] [id number] (02719) AND (59144) Alb/Creat Ratio 4.1 {mg/g_creat} (Normal) Range: 0.0-30.0 Comments: Normal: 0.0 - 30.0 Albuminuria: 31.0 - 300.0 Clinical albuminuria: >300.0 Albumin, Urine 6.7 ug/mL (Normal) Creatinine, Urine 161.5 mg/dL (Normal) 18-Ehx-805818:49 METABOLIC PANEL, COMPREHENSIVE Comments: PATIENT NOT FASTINGPERFORMED BY: [facility] [facility] [id number]; appt 12/05 (38524) ALT (SGPT) 14 [iU]/L (Normal) Range: 0-32 [...] 6-24 Glucose 94 mg/dL (Normal) Range: 65-99 1-Jey-781269:22 CBC W/Diff, Automated Comments: [facility] [address] [place], [address] Absolute Lymph 1.79 {X10_3/ul} (Normal) Range: 0.83-4.51 [...] 4.2-5.4 WBC 6.3 K/mm3 (Normal) Range: 4.4-11.0 1-Lsh-520847:22 Comprehensive Metabolic Profil Comments: [facility] [address] [place], [place], [phone] GAP 8 (Normal) Range: 5-15 CO2 25.0 [...] Comments: Please note revised GLUCOSE reference range zcwihvlsr61/02/2018. 0-Upr-510330:22 CRP Comments: [facility] [address] [place], [id number] C-REACTIVE PROT < 2.90 mg/L (Normal) Range: 0.0-3.0 Comments: C-Reactive Protein (CRP) provides useful information for thediagnosis, therapy and monitoring of inflammatory processesand associated diseases. For the evaluation of Relative Riskfor Cardiovascular Dise ase, a High Sensitivity CRP (HSCRP)should be ordered. 6-Fer-793373:22 Erythrocyte Sed Rate Comments: [facility] [address] [place], [phone] SED RATE 3 mm/h (Normal) Range: 0-30 9-Ght-078007:22 Hemoglobin A1c Comments: [facility] [address] [place], [address] HGB A1C 5.7 % (Normal) Range: 4.2-6.3 4-Clt-426129:22 Lipid Profile Comments: [place] [address] [place], [phone] VLDL 21 mg/dL (Normal) Range: 5-40 LDL [...] 200-240 mg/dL Borderline >240 mg/dL High Risk 5-Pzp-961350:22 Vitamin D,25 Hydroxy Comments: [facility] [address] [place], [id number] Vitamin D 25-OH 36.0 ng/mL (Normal) Range: 29.95-100.01 Comments: Vitamin D 25(OH) Status Range Deficiency <20 ng/mL (50nmol/L) Insuffciency 20 - 30 ng/mL (50 - 75 nmol/L) Sufficiency 30 - 100 ng/mL (75 - 250 nmol/L) Toxicity >100 ng/mL (>250 nmol/L) 02-Acj-998249:37 CBC W/Diff, Automated Comments: [facility] [address] [place], [place], [address] ; appt 5/2 Absolute Lymph 2.05 {X10_3/ul} [...] 4.2-5.4 WBC 5.5 K/mm3 (Normal) Range: 4.4-11.0 91-Rvv-002684:37 Comprehensive Metabolic Profil Comments: [facility] [address] [facility] [place], [place], [phone] GAP 8 (Normal) Range: 5-15 CO2 24.0 [...] Comments: Please note revised GLUCOSE reference range bmoqxbyxw74/02/2018. 36-Ftz-951174:37 Hemoglobin A1c Comments: [facility] [address] [facility] [place], [address] HGB A1C 5.9 % (Normal) Range: 4.2-6.3 10-Wac-045110:37 Lipid Profile Comments: [facility] [address] [place], [place], [address] VLDL 16 mg/dL (Normal) Range: 5-40 LDL [...] 200-240 mg/dL Borderline >240 mg/dL High Risk 13-Hpz-077988:06 METABOLIC PANEL, COMPREHENSIVE Comments: PATIENT NOT FASTINGPERFORMED BY: [facility] Sussex[facility]axjwm3288 [facility] [id number] ([address]) ALT (SGPT) 19 [iU]/L (Normal) Range: 0-32 [...] Glucose, Serum 84 mg/dL (Normal) Range: 65-99 56-Bdw-921184:26 CBC W/Diff, Automated Comments: [facility] [address] [place], [place], [phone] ; patient coming in today Absolute Lymph [...] 4.2-5.4 WBC 10.1 K/mm3 (Normal) Range: 4.4-11.0 88-Jjx-552202:26 EBV Acute Prof IgG / IgM Comments: [facility] (refer to report for specific site)refer to report for address and phone number INTERPRETATION Comment (Normal) Comments: EBV Interpretation ChartInterpretation EBV-IgM EA(D)-IgG VCA-IgG EBNA-IgGEBV Seronegative - - - -Early Phase + - - -Acute Primary + +or- + -InfectionConvalescence/Past - +or- + +InfectionReactivated +or- + + +Infection + Antibody Present - Antibody Ab sentPerformed at: [facility] [address] [id number] Director: Sean Daniel PhD, Phone: [phone] EB-NAg [id number] > 600.0 U/mL (Abnormal) Range: 0.0-17.9 Comments: Negative <18.0 Equivocal 18.0 - 21.9 Positive >21.9 EB-VCA HfC49032 226.0 U/mL (Abnormal) Range: 0.0-17.9 Comments: Negative <18.0 Equivocal 18.0 - 21.9 Positive >21.9 EB-EA IgG 22749 49.1 U/mL (Abnormal) Range: 0.0-8.9 Comments: Hepatitis A, Hepatitis C and HIV antibodies may cross-reactwith this assay. Negative < 9.0 Equivocal 9.0 - 10.9 Positive >10.9 EB-VCA FcL58985 < 36.0 U/mL (Normal) Range: 0.0-35.9 Comments: Negative <36.0 Equivocal 36.0 - 43.9 Positive >43.9 39-Ijz-478801:37 Basic Metabolic Profile (BMP) Comments: [facility] [address] [place], [address] GAP 8 (Normal) Range: 5-15 CO2 23.0 [...] A.D.A. criteria.Please note revised GLUCOSE reference range himtbzbso11/02/2018. 76-Hyk-297845:37 CBC W/Diff, Automated Comments: [facility] [address] [place], [address] Absolute Lymph 2.00 {X10_3/ul} (Normal) Range: 0.83-4.51 [...] 4.2-5.4 WBC 8.8 K/mm3 (Normal) Range: 4.4-11.0 62-Tjl-373731:30 CBC With Differential/Platelet Comments: PERFORMED BY: [facility] SussexOsxqyd4287 [facility] [id number] Information: [facility] PATIENT - NURSE Immature Grans (Abs) 0.0 [...] 3.77-5.28 WBC 6.8 {x10E3/uL} (Normal) Range: 3.4-10.8 19-Arf-644564:30 Comp. Metabolic Panel (14) Comments: PERFORMED BY: [facility] SussexRyqnab4692 [facility] [id number]; can review at upcoming appt ALT (SGPT) [...] Glucose, Serum 98 mg/dL (Normal) Range: 65-99 74-Vor-155184:21 TSH (04033) Comments: PATIENT NOT FASTINGPERFORMED BY: [facility] [facility] CenterZjhimk1693 [facility] [id number] TSH 2.830 {uIU/mL} (Normal) Range: 0.450-4.500 :21 T3, FREE (TRIDOTHYRONINE) (26879) Comments: PATIENT NOT FASTINGPERFORMED BY: TeamPagesSaint Clare's Hospital at SussexLpwzod9500 [facility] [id number] Triiodothyronine,Free,Serum 2.6 pg/mL (Normal) Range: 2.0-4.4 :21 T4, FREE (THYROXINE) (84017) Comments: PATIENT NOT FASTINGPERFORMED BY: TeamPagesSaint Clare's Hospital at SussexPxfgyw1849 [facility] [id number] T4,Free(Direct) 1.12 ng/dL (Normal) Range: 0.82-1.77 :32 CBC W/Diff, Automated Comments: [facility] [address] [place], [address] Absolute Lymph 3.84 {X10_3/ul} (Normal) Range: 0.83-4.51 [...] Range: 4.4-11.0 :32 Comprehensive Metabolic Profil Comments: [facility] [address] [place], [place], [address] ; non-emergent till next weeks apt GAP [...] (Normal) Range: 70-110 :32 Hemoglobin A1c Comments: [facility] Qvjnecwxyn1587 [facility]. [place], [place], [address] HGB A1C 6.2 % (Normal) Range: 4.2-6.3 :32 Lipid Profile Comments: [facility] Yiqojofzim7868 [facility]. [place], [place], [address] VLDL 19 mg/dL (Normal) Range: 5-40 LDL [...] 200-240 mg/dL Borderline >240 mg/dL High Risk :36 CBC W/Diff, Automated Comments: [facility] [address]ws[address] [place], [place], [address] Absolute Lymph 2.01 {X10_3/ul} (Normal) Range: 0.83-4.51 [...] Range: 4.4-11.0 :36 Comprehensive Metabolic Profil Comments: [facility] Ptgbecaizt[address] [place], [address] GAP 10 (Normal) Range: 5-15 CO2 25.0 [...] mg/dL (Normal) Range: 70-110 :36 CRP Comments: [facility] Wxyusyrohd[address] [place], [place], [address] C-REACTIVE PROT < 2.90 mg/L (Normal) Range: 0.0-3.0 Comments: C-Reactive Protein (CRP) provides useful information for thediagnosis, therapy and monitoring of inflammatory processesand associated diseases. For the evaluation of Relative Riskfor Cardiovascular Dise ase, a High Sensitivity CRP (HSCRP)should be ordered. :36 Culture, Urine Comments: [facility] [address]ubyabq[address] [place], [place], [address] CUUR See Note (Normal) Comments: Urine CultureCOLONY COUNT 400 CFU/ML Below infection level. ORGANISM 1: GNR Poss Pseudomonas spColony Count <1000 :36 Erythrocyte Sed Rate Comments: [place] [address] [place], [address] SED RATE 5 mm/h (Normal) Range: 0-30 :36 Free T3 Comments: [address] [place], [place], [address] FREE T3 2.4 pg/mL (Normal) Range: 2.18-3.98 :36 Rheumatoid Factor Comments: [address] [place], [address] RHEUMATOID FAC < 10.0 {IU/mL} (Normal) :36 T4 Free Direct Comments: [address] [place], [place], [address] T4 FREE DIRECT 1.09 ng/dL (Normal) Range: 0.76-1.46 :36 Thyroid Stim Hormone (TSH) Comments: [address] [place], [address] TSH 0.08 {uIU/mL} (Abnormal) Range: 0.358-3.74 :36 Uric Acid Comments: [address], [place], [address] URIC 3.6 mg/dL (Normal) Range: 2.6-6.0 Comments: The drugs N-Acetylcysteine and Metamizole may falsely deressthis assay. :30 URINE ARELY CULTURE-SPRING COL Comments: PERFORMED BY: LabCoSaint Clare's Hospital at SussexLeixsi1975 [facility] [id number] Information: SRC:UR COUNT (57854) Result 1 MUG (Normal) Comments: Mixed urogenital flora1,000 Colonies/mL Urine Culture,Comprehensive Final report (Normal) 79-Ubj-612971:20 Urinalysis, Office (06636) UA - LEUKOCYTE ESTERASE Negative (Normal) UA - NITRITE Negative (Normal) URINE UROBILINGN SPRING TIMED Normal mg/dL (Normal) UA - PROTEIN Negative mg/dL (Normal) UA - PH 7 (Normal) UA - BLOOD Negative (Normal) UA - SPECIFIC GRAVITY 1.015 (Normal) UA - KETONES Negative mg/dL (Normal) UA - BILIRUBIN Negative (Normal) UA - GLUCOSE Negative (Normal) 1-Iwn-057704:52 ARELY CULTURE-OTHER (82280) Comments: PATIENT NOT FASTINGPERFORMED BY: NextGame[address] [id number] Information: THROAT SRC:TH Result 1 RRF (Normal) Comments: Routine respiratory kaylene Upper Respiratory Culture Final report (Normal) 6-Xfi-609010:07 Rapid Strep Test, Office (04927) Rapid Strep Test, Negative (Normal) Office 22-Iyz-509833:2 Magnesium, Serum 2.0 mg/dL (Normal) Comments: PATIENT NOT FASTINGPERFORMED BY: TeamPages Qsmulr[address] [id number] Information: SRC:UC 1 Range: 1.6-2.3 07-Lbl-303814:21 Microscopic Examination Comments: PATIENT NOT FASTINGPERFORMED BY: [employer] Xrnb[address] [place] [address] [id number] BY: TeamPages[address] [id number] Bacteria None seen (Normal) Epithelial Cells (non None seen {/hpf} Range: 0 - 10 renal) (Normal) RBC 0-2 {/hpf} Range: 0 - 2 (Normal) WBC 0-5 {/hpf} Range: 0 - 5 (Normal) Sodium, Urine <20 mmol/L Comments: PATIENT NOT FASTINGPERFORMED BY: [employer] Sdxzuw[address] [id number] BY: Tame[address] [id number] 4:21 (Normal) Written Authorization WAR (Normal) Comments: PATIENT NOT FASTINGPERFORMED BY: [facility]Washington [facility] Cjruwu0066 [facility] [id number] 4:21 Comments: Written Authorization Received.Authorization received from YURIY VERNON LPN [id number] by Tg Stewart 50-Rox-109346:21 URINE ARELY CULTURE-IDENTIFICATN Comments: PATIENT NOT FASTINGPERFORMED BY: [facility]6370 [facility] [id number] BY: [address] [id number] (83588) Result 1 NG36 (Normal) Comments: No growth in 36 - 48 hours. Urine Culture,Comprehensive Final report (Normal) 92-Wqw-072041:21 URINALYSIS, W/ MICRO Comments: PATIENT NOT FASTINGPERFORMED BY: [facility]6370 [facility] [id number] BY: [address] [id number] Information: SRC: (12694) Microscopic Examination See below: (Normal) Comments: Microscopic was indicated and was performed. Microscopic Examination MICRON (Normal) Comments: Microscopic follows if indicated. Nitrite, Urine Negative (Normal) Urobilinogen,Semi-Qn 0.2 mg/dL (Normal) Range: 0.2-1.0 Bilirubin Negative (Normal) Occult Blood Negative (Normal) Ketones Negative (Normal) Glucose Negative (Normal) Protein Negative (Normal) WBC Esterase Negative (Normal) Appearance Clear (Normal) Urine-Color Yellow (Normal) pH 7.0 (Normal) Range: 5.0-7.5 Specific Derby 1.007 (Normal) Range: 1.005-1.030 04-Srv-256719:21 OSMOLALITY URINE (23681) Comments: PATIENT NOT FASTINGPERFORMED BY: [place] [address]16270 [facility] [id number] BY: [address] [id number] Osmolality, Urine 98 {mOsmol/kg} (Normal) Comments: 24 hr : 300 - 900 Random: 50 - 1400 After 12hr fluid restriction: >850 00-Mkr-895738:21 OSMOLALITY BLOOD (41282) Comments: PATIENT NOT FASTINGPERFORMED BY: [facility] Pfvjha7453 [facility] [id number] BY: LabCoGabriel V[place] 938[facility] [id number] Osmolality 265 {mOsmol/kg} (Abnormal) Range: 275-295 84-Uyk-433241:21 SODIUM SERUM (88559) Comments: PATIENT NOT FASTINGPERFORMED BY: [facility] Xahhxp8938 [facility] [id number] BY: LabCo[address] [id number] Sodium, Serum 132 mmol/L (Abnormal) Range: 134-144 83-Ydy-373473:15 Comprehensive Metabolic Profil Comments: [facility] [address]bj[address] [place], [address] GAP 9 (Normal) Range: 5-15 CO2 25.0 [...] 7-18 GLU 86 mg/dL (Normal) Range: 70-110 42-Xxw-221636:15 Free T3 Comments: [facility] [address] [place], [address] FREE T3 2.3 pg/mL (Normal) Range: 2.18-3.98 06-Azh-459018:15 Phosphorus Comments: [facility] [address] [place], [address] PHOS 2.9 mg/dL (Normal) Range: 2.5-4.9 83-Glq-944859:15 PTH,INTACT Comments: [facility] [address] [place], [address] PTH,Intact 35 pg/mL (Normal) Range: 14-72 36-Hmu-567279:15 T4 Free Direct Comments: [facility] [address]ng[address] [place], [address] T4 FREE DIRECT 1.06 ng/dL (Normal) Range: 0.76-1.46 85-Fkt-553858:15 Thyroid Stim Hormone (TSH) Comments: [facility] [address] [place], [address] TSH 5.47 {uIU/mL} (Abnormal) Range: 0.358-3.74 40-Bnj-785069:15 Vitamin D,25 Hydroxy Comments: [facility] [address] [place], [address] Vitamin D 25-OH 38.0 ng/mL (Normal) Comments: Vitamin D 25(OH) Status Range Deficiency <20 ng/mL (50nmol/L) Insuffciency 20 - 30 ng/mL (50 - 75 nmol/L) Sufficiency 30 - 100 ng/mL (75 - 250 nmol/L) Toxicity >100 ng/mL (>250 nmol/L) 3-Kin-137438:31 Comprehensive Metabolic Profil Comments: [facility] [address]yt[address] [place], [place], [address] GAP 11 (Normal) Range: 5-15 CO2 24.0 [...] 7-18 GLU 96 mg/dL (Normal) Range: 70-110 6-Atp-180415:31 Free T3 Comments: [facility] [address]lvhh[address] [place], [address] FREE T3 2.3 pg/mL (Normal) Range: 2.18-3.98 8-Jfq-776314:31 Hemoglobin A1c Comments: [facility] [address] [place], [address] HGB A1C 5.7 % (Normal) Range: 4.2-6.3 3-Zwb-646898:31 Lipid Profile Comments: [facility] [address]hg[address] [place], [address] VLDL 19 mg/dL (Normal) Range: [...] 200-240 mg/dL Borderline >240 mg/dL High Risk 8-Nli-740736:31 Microalb:Creat Ratio,Random UR Comments: [facility] [address]refyc[address] [place], [address] MALB:CREAT 5.4 {mg/g_CRE} (Normal) MICROALBUMIN,UR 6.7 mg/L (Normal) UR CREAT 124.00 mg/dL (Normal) 4-Irr-614356:31 T4 Free Direct Comments: [facility] [address]re[address] [place], [address] T4 FREE DIRECT 0.70 ng/dL (Abnormal) Range: 0.76-1.46 5-Ozi-527946:31 Thyroid Stim Hormone (TSH) Comments: [facility] [address]ocyys[address] [place], [address] TSH 4.87 {uIU/mL} (Abnormal) Range: 0.358-3.74 3-Bbb-207467:49 [facility] Emergency Manager AB, Blocking Comments: [facility] (refer to report for specific site)refer to report for address and phone number [facility] REC 79[address] 19 % (Normal) Range: 0-25 Comments: Negative: 0 - 25 Borderline: 26 - 30 Positive: >30Results for this test are for research purposesonly by the assay's alberta rodriguez. The performancecharacteristics of this product have not beenestablished. Results should not be used as adiagnostic procedure without confirmation of thediagnosis by another medically establishe ddiagnostic product or procedure.Performed at: - [address] [id number] Director: Eusebio Live MD, Phone: [phone] 0-Odq-378592:49 Lyme Antibodies,W Blot Comments: [facility] (refer to [...] positivity are those recommended byCDC/ASTPHLD. p23=Osp C, c59=zkrsqbymaVtdq:Sera from individuals with the following may cross [...] Ab Absent (Normal) P93 Ab Absent (Normal) 59-Qyy-67562:39 Acid Fast Bact Cult/Sm Comments: [facility] X[address] [place], [place], [address] AFBCS See Note Comments: AFB Smear/Fluor TESTING PERFORMED AT [facility]. ORIGINAL REPORT ON FILE IN LAB CONTAINS ADDITIONAL TEST SITE INFORMATION. (Normal) Smear, Acid Fast NO ACID-FAST BACILLI OBSERVED ON SMEAR. AFB Cult TESTING PERFORMED AT [facility]. ORIGIN AL REPORT ON FILE IN LAB CONTAINS ADDITIONAL TEST SITE INFORMATION. Culture, Acid Fast NO ACID-FAST BACILLI ISOLATED AFTER 6 WEEKS. :39 Body Fluid Cell Count+Diff Comments: Specimen Source: [facility] Rrrjpqlqmb[address] [place], [place], [address] PATH COMM/BF May follow (Normal) BF PMN [...] Body Fluid / CSF Comments: Specimen Source: [facility] [address] [place], [address] CYTOLOGY,BF/CSF SEE PATHOLOGY REPORT Comments: Specimen submitted to Anatomical Pathology Department fortesting. (Normal) :39 CYTOSPIN ON FLUID See Note (Normal) Comments: [facility] [address] [place], [address] Comments: Patient: TITA LAW : 1960 (55/F) Acct Num: [id number] Phys: Pepper Barr NP Unit Num: [id number] Loc: RAD Specimen: [id number] Received: 03/15/16 - 1239 Spec Type: CYSPIN FL TISSUES TISSUES: CYTOLOGY GROSS Received is 3 ml of clear, colorless fluid labeled with the patient's name and and designated per the requisition as CSF. Submitted f or cytology preparation. 03/15/16 TC:4 CPT: 30286 CYTOLOGY STUDY Slides are reviewed. DIAGNOSIS CYTOLOGY Cerebrospinal fluid (cytospins): The specimen is acellular. SJ:tiffanie 7 HEADER OPERATION: Lumbar puncture PRE-OP DIAGNOSIS: Rule out MS TISSUE SUBMITTED: Cerebrospinal fluid Signed Christian Holt 03/16/16 <signature on file> :39 Glucose Spinal Fluid Comments: Comments: PROTEIN ELCTRO-CSF #[id number] Source? [facility] [address] [place], [place], [address] GLU SPINAL FLD 57 mg/dL (Normal) Range: 40-75 :39 Miscellaneous Lab Procedure Comments: Comments: PROTEIN ELCTRO- CSF LC#[id number](s) Ordered: PROTEIN ELCTRO-CSF LC#[id number] Dublin Methodist Hospital [address]chrexhr[address] [place], [place], [address] [facility] Comments: TEST RESULT UNITS REFERENCE INTERVALProtein Electrophoresis, CSFProtein, Total, CSF 36.7 mg/dL 0.0 - 44.0Pre- Albumin (CSF) 2.6 % 2.2 - 7.1Albumin LAB (Normal) (CSF) 68.5 % 56.8 - 76.9Haupa-5-Xashggpl CSF 3.9 % 1.1 - 6.0Evlxo-0-Oujnkpow CSF 4.6 % 3.0 - 12.6Beta Globulin (CSF) 15.0 % 7 TEST .3 - 17.9Gamma Globulin (CSF) 5.5 % 3.0 - 13.0Protein electrophoresis scan will follow via computer, mail,or project coordinator delivery.M-Logan Not Observed % Not Observed__ TESTING PERFORMED AT [facility]. ORIGINAL REPORT ON FILE IN LAB CONTAINS ADDITIONAL TEST SITE INFORMATION. :39 Myelin Basic Protein, MBP Comments: [facility] (refer to report for specific site)refer to report for address and phone number MBP [id number] 1.8 ng/mL (Abnormal) Range: 0.0-1.2 Comments: Results for this test are for research purposes only by theassay's intern architect. The performance characteristics ofthis product have not been established. Results should notbe used as a diagnostic pro cedure without confirmation ofthe diagnosis by another medically established diagnosticproduct or procedure. :39 Protein Spinal Fluid Comments: Comments: PROTEIN ELCTRO-CSF LC#[id number] Source? [facility] [address]fpnvha[address] [place], [address] PROTEIN CSF 38.0 mg/dL (Normal) Range: 15.0-45.0 [...] using IsoelectricFocusing (IEF) and immunoblotting methodology.Performed at: [address] [id number] Director: Sean Daniel PhD, Phone: [phone] OLIG BAND REF LAB (Normal) 85-Jsg-48740:04 Protein Electroph, S Comments: [facility] (refer to report for specific site)refer to report for address and phone number NOTE: Comment (Normal) Comments: The SPE pattern appears essentially unremarkable. Evidenceof monoclonal protein is not apparent. INTERPRETATION Comment (Normal) Comments: Protein electrophoresis scan will follow via computer,mail, or project coordinator delivery. A/G RATIO 1.4 (Normal) Range: 0.7-1.7 GLOBULIN, TOTAL 2.8 g/dL (Normal) Range: 2.2-3.9 M-SPIKE g/dL (Normal) Comments: Not Observed GAMMA GLOBULIN 0.9 g/dL (Normal) Range: 0.4-1.8 BETA GLOBULIN 0.9 g/dL (Normal) Range: 0.7-1.3 ALPHA-2 GLOBUL 0.7 g/dL (Normal) Range: 0.4-1.0 ALPHA-1 GLOBUL 0.2 g/dL (Normal) Range: 0.0-0.4 ALBUMIN 3.9 g/dL (Normal) Range: 2.9-4.4 PROTEIN,TOTAL 6.7 g/dL (Normal) Range: 6.0-8.5 5-Ckp-123788:15 CBC W/Diff, Automated Comments: DR VILLAFANA ORDERED CBCD/CMPDR FAST ORDERED BMP/FT3/FT4/TSHDR TRES ORDERED CBCD/CMPDR FAST ORDERED BMP/FT3/FT4/TSHWUC [facility] [address]ls[address] [place], [address] Absolute Lymph 1.41 {X10_3/ul} (Normal) [...] 4.2-5.4 WBC 8.2 K/mm3 (Normal) Range: 4.4-11.0 9-Pdu-263199:15 Comprehensive Metabolic Profil Comments: DR VILLAFANA ORDERED CBCD/CMPDR FAST ORDERED BMP/FT3/FT4/[facility] [address]rqpzu7[address] [place], [place], [address] GAP 9 (Normal) Range: 5-15 CO2 26.0 [...] 7-18 GLU 92 mg/dL (Normal) Range: 70-110 3-Ptp-148548:15 Free T3 Comments: DR VILLAFANA ORDERED CBCD/CMPDR FAST ORDERED BMP/FT3/FT4/TSHOhio[facility] Hospital [address]xbhopgbv56[address] [place], [place], [address] FREE T3 2.2 pg/mL (Normal) Range: 2.18-3.98 7-Qjm-955949:15 T4 Free Direct Comments: DR VILLAFANA ORDERED CBCD/CMPDR FAST ORDERED BMP/FT3/FT4/TSHOhio[facility] Methodist Hospital [address]xmvnse2513 [place], [address] T4 FREE DIRECT 0.96 ng/dL (Normal) Range: 0.76-1.46 2-Tnl-063837:15 Thyroid Stim Hormone (TSH) Comments: DR VILLAFANA ORDERED CBCD/CMPDR FAST ORDERED BMP/FT3/FT4/TSHOhiohealth [facility] Hospital Qonwhusdbi9087 [facility] [place], [address] TSH 0.13 {uIU/mL} (Abnormal) Range: 0.358-3.74 26-Pox-687030:21 Metabolic Panel, Basic Comments: PATIENT NOT FASTINGPERFORMED BY: LabCoSaint Clare's Hospital at SussexZyjkzn2227 [facility] [id number] (52261) Calcium, Serum 9.5 mg/dL (Normal) Range: 8.7-10.2 [...] Glucose, Serum 85 mg/dL (Normal) Range: 65-99 :21 TSH (14678) Comments: PATIENT NOT FASTINGPERFORMED BY: [facility]6370 [facility] [id number] TSH 0.031 {uIU/mL} (Abnormal) Range: 0.450-4.500 :21 T3, FREE (TRIDOTHYRONINE) (25900) Comments: PATIENT NOT FASTINGPERFORMED BY: [place] 8216270 [facility] [id number] Triiodothyronine,Free,Serum 3.3 pg/mL (Normal) Range: 2.0-4.4 :21 T4, FREE (THYROXINE) (89438) Comments: PATIENT NOT FASTINGPERFORMED BY: [address] [id number] T4,Free(Direct) 1.52 ng/dL (Normal) Range: 0.82-1.77 :56 CBC W/Diff, Automated Comments: [facility] [address]xsuim[address] [place], [place], [address] Absolute Lymph 1.43 {X10_3/ul} (Normal) Range: 0.83-4.51 [...] 4.2-5.4 WBC 6.3 K/mm3 (Normal) Range: 4.4-11.0 70-Dqz-43922:56 Comprehensive Metabolic Profil Comments: [facility] [address]fr[address]zt[address] [place], [address] GAP 9 (Normal) Range: 5-15 CO2 26.0 [...] (Normal) Range: 70-110 :56 Hemoglobin A1c Comments: [facility] Cusxpabngw4087 [facility]. [place], [place], [address] HGB A1C 5.4 % (Normal) Range: 4.2-6.3 :56 Microalb:Creat Ratio,Random UR Comments: [facility] Tghkrvrspx8260 [facility]. [place], [place], [address] MALB:CREAT Test not performed {mg/g_CRE} (Normal) MICROALBUMIN,UR < 5.0 mg/L (Normal) UR CREAT 18.20 mg/dL (Normal) :56 NMR Lipoprofile Comments: [facility] (refer to report for specific [...] the US Food and Drug Administration.Performed at: - [facility] n1447 [facility], [place], [place] [id number] Director: Eusebio Live MD, Phone: [phone] INS RES/DIAB RK . (Normal) LDL SIZE [...] mg/dL (Abnormal) Range: 100-199 LIPIDS . (Normal) :26 Microscopic Examination Comments: PATIENT NOT FASTINGPERFORMED BY: TeamPagesSaint Clare's Hospital at SussexUmzbdu8620 [facility] [id number] Bacteria Few (Normal) Epithelial Cells (non renal) 0-10 {/hpf} (Normal) Range: 0 - 10 RBC 0-2 {/hpf} (Normal) Range: 0 - 2 WBC 0-5 {/hpf} (Normal) Range: 0 - 5 :26 METABOLIC PANEL, COMPREHENSIVE Comments: PATIENT NOT FASTINGPERFORMED BY: TeamPagesSaint Clare's Hospital at SussexVlnfcx6893 [facility] [id number] (57127) ALT (SGPT) 23 [iU]/L (Normal) Range: 0-32 [...] Glucose, Serum 84 mg/dL (Normal) Range: 65-99 22-Bcn-014355:26 URINE ARELY CULTURE-IDENTIFICATN Comments: PATIENT NOT FASTINGPERFORMED BY: [facility] Yqncvc6566 [facility] [id number] (18639) Result 1 NG36 (Normal) Comments: No growth in 36 - 48 hours. Urine Culture,Comprehensive Final report (Normal) 67-Skb-240936:26 CBC W/AUTO DIFF WBC Comments: PATIENT NOT FASTINGPERFORMED BY: [facility] Guobfq5194 [facility] [id number] Information: SRC:THAD (74539) Immature Grans (Abs) 0.0 {x10E3/uL} (Normal) Range: [...] (Normal) Range: 3.4-10.8 :26 URINALYSIS, W/ MICRO (76039) Comments: PATIENT NOT FASTINGPERFORMED BY: [facility] Ujgwmm5123 [place] [id number] Microscopic Examination See below: (Normal) Comments: Microscopic was indicated and was performed. Microscopic Examination MICRON (Normal) Comments: Microscopic follows if indicated. Nitrite, Urine Negative (Normal) Urobilinogen,Semi-Qn 0.2 mg/dL (Normal) Range: 0.2-1.0 Bilirubin Negative (Normal) Occult Blood Negative (Normal) Ketones Negative (Normal) Glucose Negative (Normal) Protein Negative (Normal) WBC Esterase Negative (Normal) Appearance Clear (Normal) Urine-Color Yellow (Normal) pH 7.5 (Normal) Range: 5.0-7.5 Specific Derby 1.005 (Normal) Range: 1.005-1.030 :53 Partial Thromboplast Time Comments: [facility] [address]wh[address] [facility] [address] [place], [place], [address] PTT 34.1 s (Normal) Range: 24.1-36.2 :53 Prothrombin Time w/INR Comments: [facility] Ewtzwnizjo5465 [facility] [place], [place], [address] INR 1.1 (Normal) PROTIME 14.1 s (Normal) Range: 11.7-14.9 :43 CBC W/Diff, Automated Comments: [facility] Aybswvfmrh3278 [facility] [place], [place], [address] Absolute Lymph 1.00 {X10_3/ul} (Normal) Range: 0.83-4.51 [...] 4.2-5.4 WBC 16.5 K/mm3 (Abnormal) Range: 4.4-11.0 83-Ewh-215894:43 Comprehensive Metabolic Profil Comments: [facility] [address]vpt[address] [place], [place], [address] GAP 11 (Normal) Range: 5-15 CO2 24.0 [...] 7-18 GLU 82 mg/dL (Normal) Range: 70-110 85-Ltp-288444:43 Lactic Acid Comments: [facility] [address]ayxb[address] [place], [address] LACTIC ACID 1.5 mmol/L (Normal) Range: 0.4-2.0 6-Sxn-105217:06 Metabolic Panel, Basic (49964) Comments: PATIENT NOT FASTINGPERFORMED BY: [employer]6370 [employer] InternationalDor[facility] [id number] Calcium, Serum 9.9 mg/dL (Normal) Range: 8.7-10.2 [...] Glucose, Serum 82 mg/dL (Normal) Range: 65-99 0-Iap-468244:06 PHOSPHORUS (67332) Comments: PATIENT NOT FASTINGPERFORMED BY: [facility]At[facility] [id number] Phosphorus, Serum 3.8 mg/dL (Normal) Range: 2.5-4.5 1-Tgw-619066:06 PARATHORMONE (05667) Comments: PATIENT NOT FASTINGPERFORMED BY: [facility]6370 [facility] [id number] PTH, Intact 30 pg/mL (Normal) Range: 15-65 1-Jpg-507990:06 SPEP (71264) Comments: PATIENT NOT FASTINGPERFORMED BY: [facility]6370 [facility] [id number] Information: [id number] Please note: SPRCS (Normal) Comments: Protein electrophoresis scan will follow via computer, mail, orcourier delivery. A/G Ratio 1.4 (Normal) Range: 0.7-1.7 Globulin, Total 3.1 g/dL (Normal) Range: 2.2-3.9 M-Logan Not Observed g/dL (Normal) Gamma Globulin 1.1 g/dL (Normal) Range: 0.4-1.8 Beta Globulin 1.0 g/dL (Normal) Range: 0.7-1.3 Jtscc-4-Kbhccblu 0.8 g/dL (Normal) Range: 0.4-1.0 Qczmu-6-Rvhpgiia 0.3 g/dL (Normal) Range: 0.0-0.4 Albumin 4.4 g/dL (Normal) Range: 2.9-4.4 Protein, Total, Serum 7.5 g/dL (Normal) Range: 6.0-8.5 9-Cfp-281019:06 UPEP (81415) Comments: PATIENT NOT FASTINGPERFORMED BY: [facility]6370 [facility] [id number] Please note: SPRCS (Normal) Comments: Protein electrophoresis scan will follow via computer, mail, orcourier delivery. M-Logan, % Not Observed % (Normal) Gamma Globulin, U 43.5 % (Normal) Beta Globulin, U 33.9 % (Normal) Ozwsx-2-Pqeogyzc, U 9.6 % (Normal) Lxaxz-1-Tmynbifx, U 0.8 % (Normal) Albumin, U 12.1 % (Normal) Protein,Total,Urine <4.0 mg/dL (Normal) Comments: Verified by repeat analysis 9-Kbr-784072:23 URINE CALCIUM SPRING TIMED Comments: PATIENT NOT FASTINGPERFORMED BY: [facility]6370 [facility] [id number] Information: [id number] 24 Hour (72505) Calcium, Urine 24hr 133.5 {mg/24_hr} (Normal) Range: 100.0-300.0 Calcium, Urine 3.0 mg/dL (Normal) :08 METABOLIC PANEL, Comments: PATIENT NOT FASTINGPERFORMED BY: [facility]6370 [facility] [id number] Information: [id number] COMPREHENSIVE (31137) ALT (SGPT) 15 [iU]/L (Normal) Range: 0-32 [...] mg/dL (Normal) Range: 65-99 :34 Urinalysis, Office (12623) UA - LEUKOCYTE ESTERASE Negative (Normal) UA - NITRITE Negative (Normal) URINE UROBILINGN SPRING TIMED Normal mg/dL (Normal) UA - PROTEIN Negative mg/dL (Normal) UA - PH 8.5 (Normal) UA - BLOOD Negative (Normal) UA - SPECIFIC GRAVITY 1.015 (Normal) UA - KETONES Negative mg/dL (Normal) UA - BILIRUBIN Negative (Normal) UA - GLUCOSE Negative (Normal) :58 URINE ARELY CULTURE (SPRING Comments: PATIENT NOT FASTINGPERFORMED BY: [facility]CoSaint [facility] at SussexWxizjo2274 [facility] [id number] Information: [place] [place] [id number] COL COUNT) (04333) Result 1 NG36 (Normal) Comments: No growth in 36 - 48 hours. Urine Culture,Comprehensive Final report (Normal) 59-Rvc-895855:00 CBC W/Diff, Automated Comments: [facility] Ilcwlenarm[address]47 [facility] [place], [address] Absolute Lymph 1.49 {X10_3/ul} (Normal) Range: 0.83-4.51 [...] 4.2-5.4 WBC 6.2 K/mm3 (Normal) Range: 4.4-11.0 09-Kwb-745232:00 Comprehensive Metabolic Profil Comments: [facility] [address] [place], [place], [id number] GAP 5 (Normal) Range: 5-15 CO2 28.0 [...] 7-18 GLU 93 mg/dL (Normal) Range: 70-110 79-Msz-125160:00 Free T3 Comments: [facility] [address] [place], [address] FREE T3 2.9 pg/mL (Normal) Range: 2.18-3.98 29-Chd-203727:00 T4 Free Direct Comments: [facility] [address] [place], [address] T4 FREE DIRECT 1.07 ng/dL (Normal) Range: 0.76-1.46 45-Uus-648627:00 Thyroid Stim Hormone (TSH) Comments: [facility] Pr[address]mcguyik[address] [place], [address] TSH 0.16 {uIU/mL} (Abnormal) Range: 0.358-3.74 :38 HGB A1C (36385) Comments: PATIENT NOT FASTINGPERFORMED BY: TeamPagesSaint Clare[facility] Hospital at SussexVivqup9815 [facility] [id number] Information: [id number] Hemoglobin A1c 5.7 % (Abnormal) Range: 4.8-5.6 Comments: . Pre-diabetes: 5.7 - 6.4 Diabetes: >6.4 Glycemic control for adults with diabetes: <7.0 David Arce BMP8 SPRCS (Normal) Comments: A courtesy copy of this report has been sent to[facility].PATIENT WAS FASTINGPERFORMED BY: TeamPagesSaint Clare's Hospital at SussexNxwokd4243 [facility] [id number] :51 Default Comments: A hand-written panel/profile was received from your office. Inaccordance with the [employer]Pages Ambiguous Test Code Policy dated August2002, we have completed your order by using the closest currentlyor formerl y recognized AMA panel. We have assigned Basic MetabolicPanel (8), Test Code #349941 to this request. If this is not thetesting you wished to receive on this specimen, please contact theTeamPages Client Inquiry/Technical Services Department to clarify thetest order. We appreciate your business. David Arce LP Default SPRCS (Normal) Comments: A courtesy copy of this report has been sent [facility].PATIENT WAS FASTINGPERFORMED BY: [facility]6370 [facility] [id number] :51 Comments: A hand-written panel/profile was received from your office. Inaccordance with the LabGPMESS Ambiguous Test Code Policy dated August2002, we have completed your order by using the closest currentlyor formerl y recognized AMA panel. We have assigned Lipid Panel,Test Code #926670 to this request. If this is not the testing youwished to receive on this specimen, please contact the LabGPMESSClIndigoBoom Inquiry/Techni alberto Services Department to clarify the testorder. We appreciate your business. :51 CBC With Differential/Platelet Comments: A courtesy copy of this report has been sent [facility].PATIENT WAS FASTINGPERFORMED BY: [facility]6370 [facility] [id number] Immature Grans (Abs) 0.0 {x10E3/uL} (Normal) Range: [...] 3.77-5.28 WBC 4.8 {x10E3/uL} (Normal) Range: 3.4-10.8 11-Tot-605904:51 Comp. Metabolic Panel (14) Comments: A courtesy copy of this report has been sent [facility].PATIENT WAS FASTINGPERFORMED BY: [facility] Ggejgy0722 [facility] [id number] ALT (SGPT) 14 [iU]/L (Normal) Range: 0-32 [...] Glucose, Serum 101 mg/dL (Abnormal) Range: 65-99 24-Yfr-390949:51 Lipid Panel Comments: A courtesy copy of this report has been sent [facility].PATIENT WAS FASTINGPERFORMED BY: [facility]Pages Ixatnf2632 Alvarado [facility] [id number]; non-emergent till apt LDL Cholesterol Calc 120 [...] copy of this report has been sent [facility].PATIENT WAS FASTINGPERFORMED BY: [employer]6370 [facility] [id number] 0:51 Range: 30.0-100.0 Comments: Vitamin D deficiency has been defined by the [place] of[place]icine and an Endocrine Society practice guideline as alevel of serum 25-OH vitamin D less than 20 ng/mL (1,2).The Endocrine Society went on to further define vitamin Dinsufficiency as a level between 21 and 29 ng/mL (2).1. IOM ([place] of [employer]). 2010. Dietary reference intakes for calcium and D. [place]: The National Academies Press.2. Mateusz MF, Mary HUNTER, Enma KENDALL, et al. Evaluation, treatment, and prevention of vitamin D deficiency: an Endocrine Society clinical practice guideline. JCEM. 2010; 96(7):1911-30. 25-Cqi-478700:28 Sputum Culture (97429) Comments: PATIENT NOT FASTINGPERFORMED BY: [facility]Pages Tsuwsd1221 [facility] [id number] Information: [id number] Result 1 STREPN (Abnormal) Comments: Streptococcus pneumoniaeHeavy [...] S Lower Respiratory Final report Culture (Abnormal) 80-Wfe-117229:49 Free T3 Comments: Has Patient had X-rays with Contrast this admission? NIs Patient on Heparin? [facility] [address] [place], [address] FREE T3 1.9 pg/mL (Abnormal) Range: 2.18-3.98 26-Glp-985788:49 T4 Free Direct Comments: Has Patient had X-rays with Contrast this admission? NIs Patient on Heparin? [facility] [address] [place], [address] T4 FREE DIRECT 0.84 ng/dL (Normal) Range: 0.76-1.46 78-Tpg-185053:49 Thyroid Stim Hormone (TSH) Comments: Has Patient had X-rays with Contrast this admission? NIs Patient on Heparin? [facility] I[address]aih[address] [place], [address] TSH 0.04 {uIU/mL} (Abnormal) Range: 0.358-3.74 41-Jzb-922280:43 CBC W/Diff, Automated Comments: Test performed at:[facility] Lvbqnscwru2312 [facility] [place] [address] Absolute Lymph 2.39 {X10_3/ul} (Normal) Range: 0.83-4.51 [...] 4.2-5.4 WBC 8.0 K/mm3 (Normal) Range: 4.4-11.0 73-Zho-761207:43 Comprehensive Metabolic Profil Comments: Test performed at:[facility] C[address]wawnju[address] [facility] [address] [place], [place] [address] GAP 7 (Normal) Range: 5-15 CO2 27.0 [...] 7-18 GLU 92 mg/dL (Normal) Range: 70-110 34-Vmm-58638:34 Comprehensive Metabolic Profil Comments: ORDERED LIPID,CMPDR.SNEHA ORDERED TSH,HARLEEN,DHEATest performed at:[facility] [address] [place], [place] [address] GAP 11 (Normal) Range: 5-15 CO2 25.0 [...] Comments: Please note revised CREATININE reference range /22/2015. BUN 6 mg/dL (Abnormal) Range: 7-18 GLU 97 mg/dL (Normal) Range: 70-110 :34 DHEA Sulfate Comments: Has Patient had Radioactive Injection for X-ray?: NTest performed at:[facility] Qpcghmwace4667 [facility] [place] [address] DHEA SULF 4020 26.8 ug/dL (Abnormal) Range: 41.2-243.7 Comments: Performed at: - [facility] [address] [id number] Director: Sean Daniel PhD, Phone: [phone] :34 Lipid Profile Comments: ORDERED LIPID,CMPDR.SNEHA ORDERED TSH,HARLEEN,DHEATest performed at:[facility] Fuvyogvgox8010 [facility]. [place], [place] [id number] VLDL 14 mg/dL (Normal) Range: 5-40 LDL [...] :34 Testosterone, Serum Total Comments: Test performed at:[facility] [address] [place] [address] Testosterone 20 ng/dL (Normal) Range: 14-76 90-Akc-02215:34 Thyroid Stim Hormone (TSH) Comments: ORDERED LIPID,CMPDRSANDHYA ORDERED TSH,HARLEEN,DHEATest performed at:[facility] [address] [place] [address] TSH < 0.01 {uIU/mL} (Abnormal) Range: 0.358-3.74 09-Gsf-218573:12 CBC W/Diff, Automated Comments: Test performed at:[facility] [address] [place] [address] Absolute Lymph 1.81 {X10_3/ul} (Normal) Range: [...] 4.2-5.4 WBC 6.0 K/mm3 (Normal) Range: 4.4-11.0 99-Pvw-675406:12 Comprehensive Metabolic Profil Comments: Test performed at:[facility] [address]ym[address] [place], [place] [address] GAP 6 (Normal) Range: 5-15 CO2 29.0 [...] had Radioactive Injection for X-ray?: NTest performed at:[facility] [address] [place] [address] DHEA SULF 4020 22.6 ug/dL (Abnormal) Range: 41.2-243.7 Comments: Performed at: - [facility] [id number] Director: Omer Stout PhD, Phone: [phone] :36 Free T3 Comments: Has Patient had X-rays with Contrast this admission? ??NIs Patient on Heparin? ??NTest performed at:[facility] [address] ??[place], [place] [address] FREE T3 4.7 pg/mL (Abnormal) Range: 2.18-3.98 :36 T4 Free Direct Comments: Has Patient had X-rays with Contrast this admission? NIs Patient on Heparin? NTest performed at:[facility] Soq[address]uv[address] [place] [address] T4 FREE DIRECT 1.54 ng/dL (Abnormal) Range: 0.76-1.46 :36 Thyroid Stim Hormone (TSH) Comments: Has Patient had X-rays with Contrast this admission? NIs Patient on Heparin? NTest performed at:[facility] Z[address] [place] [address] TSH < 0.01 {uIU/mL} (Abnormal) Range: 0.358-3.74 :36 Vitamin D,25 Hydroxy Comments: Test performed at:[facility] Koq[address]segv[address] [place] [address] Vitamin D 25-OH 34.0 ng/mL (Normal) Comments: Vitamin D 25(OH) Status Range Deficiency <20 ng/mL (50nmol/L) Insuffciency 20 - 30 ng/mL (50 - 75 nmol/L) Sufficiency 30 - 100 ng/mL (75 - 250 nmol/L) Toxicity >100 ng/mL (>250 nmol/L) :02 CBC W/Diff, Automated Comments: Test performed at:[facility] [address] [place], [place] [id number] ; non- emergent till apt Absolute Lymph [...] :02 Comprehensive Metabolic Profil Comments: Test performed at:[facility] [address]cb[address] [place], [place] [address] GAP 7 (Normal) Range: 5-15 CO2 28.0 [...] 70-110 :02 Lipid Profile Comments: Test performed at:[facility] [address] [place], [place] [address] VLDL 14 mg/dL (Normal) Range: 5-40 LDL [...] 200-240 mg/dL Borderline >240 mg/dL High Risk :09 CBC W/Diff, Automated Comments: Test performed at:[facility] [address] [place] [address] ; handled by kerri Absolute Lymph 2.45 [...] 4.2-5.4 WBC 8.0 K/mm3 (Normal) Range: 4.4-11.0 :09 Comprehensive Metabolic Profil Comments: Test performed at:[facility] [address] [place] [address] ; kerri GAP 6 (Normal) Range: 5-15 [...] 7-18 GLU 79 mg/dL (Normal) Range: 70-110 63-Uzx-67162:19 CMP Comments: DR BROWN ORDERED LIPID CMPDR [...] 7-18 GLU 98 mg/dL (Normal) Range: 70-110 46-Due-50625:19 LIPID Comments: DR BROWN ORDERED LIPID CMPDR TRES [...] CHOL 168 mg/dL (Normal) Comments: <200 mg/dL Ydgktimzy097-129 mg/dL Borderline>240 mg/dL High Risk 24-Bin-491016:51 CBCD ALC 2.36 {X10_3/ul} (Normal) Range: 0.83-4.51 [...] 4.2-5.4 WBC 8.0 K/mm3 (Normal) Range: 4.4-11.0 72-Dul-768901:51 CMP Comments: DR VILLAFANA ORDERED CBCD CMP [...] 7-18 GLU 89 mg/dL (Normal) Range: 70-110 37-Nok-341644:51 CORTU Comments: Has Patient had Radioactive Injection for X-ray?: N tCORTU 9 ug/L (Normal) ySGEXV37 39 {ug/24_hr} (Normal) Range: 0-50 :51 DHEA 19.8 ug/dL (Abnormal) Comments: Has Patient had Radioactive Injection for X-ray?: N Range: 41.2-243.7 Comments: Performed at: - [facility] [address] [id number] Director: Eusebio Live MD, Phone: [phone] at: - [facility] [place] [id number] Director: Omer Stout PhD, Phone: [phone] 73-Cpi-744753:51 FT3 2.2 pg/mL (Normal) Comments: DR VILLAFANA ORDERED CBCD CMP ONLYHas Patient had X-rays with Contrast this admission? N Range: 2.18-3.98 :51 METAU Comments: Has Patient had Radioactive Injection for X-ray?: N tMETA 40 ug/L (Normal) tMETA24 172 {ug/24_hr} (Normal) Range: 45-290 Comments: (Hypertensive) >17 years 11 months: 35 - 460 tNORM24 292 {ug/24_hr} (Normal) Range: 82-500 Comments: (Hypertensive) >17 years 11 months: 110 - 1050 tNORM 68 ug/L (Normal) :51 T4F 0.98 ng/dL (Normal) Comments: DR VILLAFANA ORDERED CBCD CMP ONLYHas Patient had X-rays with Contrast this admission? N Range: 0.76-1.46 :51 TSH 0.66 {uIU/mL} (Normal) Comments: DR VILLAFANA ORDERED CBCD CMP ONLYHas Patient had X-rays with Contrast this admission? N Range: 0.358-3.74 :51 VITD 51.8 mg/mL (Normal) Comments: Vitamin D 25(OH) Status RangeDeficiency <20 ng/mL (50nmol/L)Insuffciency 20 - 30 ng/mL (50 - 75 nmol/L)Sufficiency 30 - 100 ng/mL (75 - 250 nmol/L)Toxicity >100 ng/mL (>250 nmol/L) 9-Wtv-538097:01 URINE ARELY CULTURE-SPRING COL Comments: PATIENT NOT FASTINGPERFORMED BY: JUAN LUIS [facility] Yyoygv6221 [facility] [id number] Information: SRC:UR [id number] COUNT (26110) Result 1 NG36 (Normal) Comments: No growth in 36 - 48 hours. Urine Culture,Comprehensive Final report (Normal) 5-Uxu-890369:44 Urinalysis, Office (98956) UA - LEUKOCYTE ESTERASE Negative (Normal) UA [...] 7-18 GLU 81 mg/dL (Normal) Range: 70-110 : DHEA 18.8 ug/dL (Abnormal) Comments: Has Patient had Radioactive Injection for X-ray?: N Range: 41.2-243.7 Comments: Performed at: [address] [id number] Director: Sterling Porter MD, Phone: [phone] : FT3 2.4 pg/mL (Normal) Comments: DR.FAST ANG VENEGAS CMP TSH T4F T3F VITD DHEA Range: 2.18-3.98 : LIPID Comments: DR.FAST ANG VENEGAS CMP TSH T4F T3F VITD DHEA VLDL [...] CHOL 235 mg/dL (Abnormal) Comments: <200 mg/dL Lfjqdvdsm551-714 mg/dL Borderline>240 mg/dL High Risk : T4F 0.98 ng/dL (Normal) Comments: DR.FAST ANG VENEGAS CMP TSH T4F T3F VITD DHEA Range: 0.76-1.46 : TSH 0.16 {uIU/mL} (Abnormal) Comments: DR.FAST ANG VENEGAS CMP TSH T4F T3F VITD DHEA Range: 0.358-3.74 : VITD 56.0 mg/mL (Normal) Comments: Vitamin D 25(OH) Status RangeDeficiency <20 ng/mL (50nmol/L)Insuffciency 20 - 30 ng/mL (50 - 75 nmol/L)Sufficiency 30 - 100 ng/mL (75 - 250 nmol/L)Toxicity >100 ng/mL (>250 nmol/L) :54 OS 273 {mOsm/KG} (Abnormal) Range: 275-295 :54 [facility] 268 {mOsm/KG} (Normal) Comments: OSMOLALITY URINE REFERENCE HREJGWAVK28-vxxd Urine 300 - 900 mOsm/kgRandom Urine 50 - 1400 mOsm/kgAfter 12 Hr fluid restriction >850 mOsm/kg 84-Zks-936756:31 24HULYT Comments: ST 07/25/13 1130AM CREATININE AND SODIUM ONLYST 1130AM uCL24 63 {mmol/24h} (Abnormal) Range: 110-250 CLU 14 mmol/L (Normal) KU 15.5 mmol/L (Normal) uK24 70.1 {mmol/24h} (Normal) Range: 25-125 uNA24 72 {mmol/24h} (Normal) Range: 40-220 EMELI 16 mmol/L (Normal) uLYTV 4525 mL (Normal) 62-Fwi-929927:31 UCRE Comments: ST 07/25/13 1130AM CREATININE AND SODIUM ONLYST 1130AM UCCT 24.0 {HOURS} (Normal) UCRE24 1.2 {g/24_hr} (Normal) Range: 0.6-1.5 UCTV 4.53 L (Normal) URCREAT 26.8 mg/dL (Normal) 40-Nfk-331796:30 CAU Comments: ST 07/25/13 1130AMST 07/25/13/1130AMComments: [id number] 24 hr sodium urine tCAU24 90.0 {mg/24_hr} (Normal) Range: 100.0-300.0 Comments: Reference Cyjth283.0 - 300.0Total volumne: 4525 ml/24hrPerformed at: - [facility] [address] [id number] Director: Sterling Porter MD, Phone: [phone] CAUR 2.1 mg/dL (Normal) 66-Dgv-105588:18 CBCD ALC 2.09 {X10_3/ul} (Normal) Range: 0.83-4.51 [...] 4.2-5.4 WBC 7.0 K/mm3 (Normal) Range: 4.4-11.0 70-Zxf-765478:18 CMP Comments: Comments: cp2721 24 hr sodium urine GAP 8 (Normal) [...] 126 mg/dLsuggests DIABETES MELLITUS per A.D.A. criteria. :33 PTHIN 37 pg/mL (Normal) Range: 14-72 :31 [...] X-ray?: N Range: 41.2-243.7 Comments: Performed at: [facility] [address] [id number] Director: Sterling Porter MD, Phone: [phone] :31 T4F 1.03 ng/dL (Normal) Range: 0.76-1.46 :31 TSH 0.10 {uIU/mL} (Abnormal) Range: 0.358-3.74 :31 VITD 39.9 mg/mL (Normal) Comments: Vitamin D 25(OH) Status RangeDeficiency <20 ng/mL (50nmol/L)Insuffciency 20 - 30 ng/mL (50 - 75 nmol/L)Sufficiency 30 - 100 ng/mL (75 - 250 nmol/L)Toxicity >100 ng/mL (>250 nmol/L) :17 CMP Comments: DR BROWN ORDERED CMP LIPIDDR SELVIN ORDERED TSH T3F T4F BMP GAP 7 [...] CHOL 176 mg/dL (Normal) Comments: <200 mg/dL Cuqqfufoz147-740 mg/dL Borderline>240 mg/dL High Risk :17 T4F 1.08 ng/dL (Normal) Comments: DR BROWN ORDERED CMP LIPIDDR WIETEJONATAN ORDERED TSH T3F T4F BMP Range: 0.76-1.46 03-Jan-20136:17 TSH 0.49 {uIU/mL} (Normal) Comments: DR BROWN ORDERED CMP LIPIDDR WIETEJONATAN ORDERED TSH T3F T4F BMP Range: 0.358-3.74 9-Geg-328567:52 BREAST UNILATERAL Radiology See Note Comments: STUDY: [...] Galeana M.D.November 02, 2012 at 4:00:42 PM [id number] Signed GP/GP If you are the referring physician and would like to consult with theradiologist who provided this interpretation, please contact Luis Angel Quintana at [phone]. If this radiologist is un available, youwill be directed to another radiologist to assist. If you are a patient with a question regarding this report, pleasecontactyour referring physician directly. Professional Interpretation P rovided By: [employer], Phone , These documents contain legally protected [...] destructionofthese documents. Dictated on 11/02/12 1600 by Kim Galeana MDranscribed on 11/02/12 1609 by ITS IMPORTSi gn [...] are identified. There has been nosignificant c hange since the prior study. IMPRESSION:Stable unilateral diagnostic [...] Galeana M.D.November 02, 2012 at 3:22:08 PM [phone] Signed GP/GP If you are the referring physician and would like to consult with theradiologist who provided this interpretation, please contact Luis Angel Quintana at [phone]. If this radiologist is unavailable, youwil l [...] destructionofthese documents. Dictated on 11/02/12 1522 by Kim Galeana MDranscribed on 11/02/12 1536 by ITS IMPORTSign by Barrera Kennedy on 11/02/12 1537 Sign by: Barrera Galeana MD 61-Epw-84982:00 ABDOMEN/PELVIS WITHOUT CONT Radiology Report See Note [...] Galeana M.D.September 14, 2012 at 8:22:23 AM [id number] Signed GP/GP If you are the referring physician and would like to consult with theradiologist who provided this interpretation, please contact Luis Angel Quintana at [phone]. If this radiologist is unavailable, youwill be directed to another radiologist to assist. If you are a patient with a question regarding this report, pleasecontactyour referring niecy yang directly. Professional Interpretation Provided By: [employer], Phone , These documents contain legally protected [...] the return or destructionofthese documents. Dictated on 09/14/12 0822 by Aureliano Galeana MDranscribed on 09/14/12 0824 by ITS IMPORTSign by Barrera Galeana MD on 09/14/12 0825 Sign by: Barrera Galeana MD 04-Mst-401963:15 URINE ARELY CULTURE-IDENTIFICATN Comments: PATIENT NOT FASTINGPERFORMED BY: [facility] Jkprpu3465 [facility] [id number] Information: ADD [id number] (30014) Result 1 NG36 (Normal) Comments: No growth in 36 - 48 hours. Urine Culture,Comprehensive Final report (Normal) 13-Uxk-518287:03 Urinalysis, Office (24372) UA - BILIRUBIN Negative (Normal) UA - BLOOD Non Hemolyzed Trace (Normal) UA - GLUCOSE Negative (Normal) UA - KETONES Negative mg/dL (Normal) UA - LEUKOCYTE ESTERASE Negative (Normal) UA - NITRITE Negative (Normal) UA - PH 7.0 (Normal) UA - PROTEIN Negative mg/dL (Normal) UA - SPECIFIC GRAVITY 1.010 (Normal) URINE UROBILINGN SPRING TIMED Normal mg/dL (Normal) 19-Fqk-976481:14 CBCMD ANC 3.2 3/uL (Normal) Range: 2.0-7.7 [...] 4.2-5.4 WBC 5.9 {k/mm3} (Normal) Range: 4.4-11.0 :14 CMP GAP 8 (Normal) Range: 5-15 CO2 [...] 7-18 GLU 86 mg/dL (Normal) Range: 70-110 :14 FT3 3.5 pg/mL (Normal) Range: 2.18-3.98 :14 LIPID VLDL 12 mg/dL (Normal) Range: 5-40 [...] CHOL 206 mg/dL (Abnormal) Comments: <200 mg/dL Pyaewixba515-667 mg/dL Borderline>240 mg/dL High Risk 48-Kcs-197431:14 T4F 1.17 ng/dL (Normal) Range: 0.76-1.46 :14 TSH 0.02 {uIU/mL} (Abnormal) Range: 0.358-3.74 :14 VITD 39.9 ng/mL (Normal) Comments: Vitamin D 25(OH) Status RangeDeficiency <20 ng/mL (50nmol/L)Insufficiency 20 - 30 ng/mL (50 - 75 nmol/L)Sufficiency 30 - 100 ng/mL (75 - 250 nm ol/L)Toxicity >100 ng/mL (250 nmol/L)Effective 201222-Jun-201286-Szd-214835:23 BILAT SCRN DIGITAL & CAD Radiology Report See Note (Normal) Comments: MAMMOGRAPHY - BILATERAL SCREENING REASON FOR EXAM: Female, 51 years old. Routine annual screeningexamination. PERTINENT HISTORY: Mother with breast cancer. TECHNIQUE: Digital examinat ion. Mediol ateral oblique (MLO) andcraniocaudad (CC) views of both breasts were obtained. CAD: CAD wasperformed on this study. COMPARISON: Comparison is made with prior study dated June 23ndApril 201 1. FINDINGS:The breast composition is composed of [...] Galeana M.D.June 22, 2012 at 2:15:23 PM [id number] Signed GP/GP If you a re the referring physician and would like to consult with theradiologist who provided this interpretation, please contact Luis Angel Quintana at [phone]. If this radiologist is unavailable, you will [...] destructionofthese documents. Dictated on 06/22/12 1323 by Wendy IRVIN,Kimranscribed on 06/22/12 1417 by ITS IMPORTSign by Silvia hurst MD,Barrera on 06/22/12 1418 Sign by: Barrera Galeana MD 22-Jun-2012 glu gtt4 66 mg/dL Comments: 4HR GTT GLU 4 HR GLU GTT-4 HOUR from 0426:[id number]. 11:43 (Abnormal) Range: 70-110 22-Jun-2012 glu gtt3 36 mg/dL Comments: 4HR GTT GLU 3 HR GLU GTT-3 HOUR from 0426:[id number]. 10:50 (Abnormal) Range: 70-110 Comments: CRITICAL VALUE REPEATED AND VERIFIED. CALLED TO ANUEL BENTLEY06/22/12 MARGY SYKES.RESULTS READ BACK BY SAME . 22-Jun-2012 glu gtt2 84 mg/dL (Normal) Comments: 4HR GTT GLU 2 HR GLU GTT-2 HOUR from 0426:[id number]. 9:50 Range: 70-120 22-Jun-2012 glu gtt1 118 mg/dL Comments: 4HR GTT GLU 1 HR GLU GTT-1 HOUR from 0426:[id number]. 8:50 (Abnormal) Range: 120-170 22-Jun-2012 glu gtt.5 140 mg/dL Comments: 4HR GTT GLU 1/2 HR GLU GTT-30 min. from 0426:[id number]. 8:20 (Normal) Range: 110-170 34-Aqs-14345:40 BGM Comments: 4HR GTT FASTING GLU GTT-FASTING from 0426:[id number]. glu gttf 94 mg/dL (Normal) Range: 70-110 Comments: GLUCOSE TOLERANCE TEST Reference IntervalNon- AdultsFasting 70 - 61149 minutes 110 - 1701 hour 120 - 1702 hour 70 - 1203 hour 70 - 1104 hour 70 - 1105 hour 70 - 110 BGM 97 mg/dL (Normal) Range: 70-110 Comments: MANAGEMENT OF PATIENT CARE PER NURSING PROTOCOLNo Action Required0 36-Vwu-65073:40 CBCD Comments: DR DAILY ORDERED XCI7PMNADR VILLAFANA ORDERED CMP CBCD ANC 2.2 3/uL [...] 4.4-11.0 :40 CMP Comments: DR DAILY ORDERED [id number] TRES ORDERED CMP CBCD GAP 8 (Normal) Range: [...] 70-110 :40 GTT4 Comments: DR DAILY ORDERED FBT6ABLT TRES ORDERED CMP CBCD :31 CBC WITH MANUAL DIFF Comments: PATIENT NOT FASTINGPERFORMED BY: [facility] Avjqcl0181 [facility] [id number] Information: [id number] (24484) Immature Grans (Abs) 0.0 {x10E3/uL} (Normal) Range: [...] 9.0 {x10E3/uL} (Normal) Range: 4.0-10.5 :31 TSH (69218) Comments: PATIENT NOT FASTINGPERFORMED BY: [facility] Rduzlh4079 [facility] [id number] TSH 6.430 {uIU/mL} (Abnormal) Range: 0.450-4.500 :31 EBV Panel (48428) Comments: PATIENT NOT FASTINGPERFORMED BY: [facility] Dmnzpm9638 [facility] [id number] Interpretation: SPRCS (Normal) Comments: EBV Interpretation Chart [...] 5:28 (Abnormal) Comments: Results confirmed ondilution.Performed at: [address] [id number] Director: Omer Stout PhD, Phone: [phone] TSH 0.90 {uIU/mL} Range: 0.358-3.74 5:28 (Normal) 7-Csn-009827:59 Urinalysis, Office (09226) UA - BILIRUBIN Negative (Normal) UA - BLOOD Hemolyzed Trace (Normal) UA - GLUCOSE Negative (Normal) UA - KETONES Negative mg/dL (Normal) UA - LEUKOCYTE ESTERASE Negative (Normal) UA - NITRITE Negative (Normal) UA - PH 7.0 (Normal) UA - PROTEIN Negative mg/dL (Normal) UA - SPECIFIC GRAVITY 1.010 (Normal) URINE UROBILINGN SPRING TIMED Normal mg/dL (Normal) 9-Sey-113146:11 ARELY CULTURE-OTHER (79310) Comments: PATIENT NOT FASTINGPERFORMED BY: Lab[facility] [id number] [facility] [id number] Information: SRC:THRT [id number] Result 1 RRF (Normal) Comments: Routine respiratory kaylene Upper Respiratory Culture Final report (Normal) 1-Uwo-003822:58 Rapid Strep Test, Office (72756) Rapid Strep Test, Office Negative (Normal) 7-Cmo-869713:47 Urinalysis, Office (03746) UA - BILIRUBIN Negative (Normal) UA - BLOOD Hemolyzed Trace (Normal) UA - GLUCOSE Negative (Normal) UA - KETONES Negative mg/dL (Normal) UA - LEUKOCYTE ESTERASE Negative (Normal) UA - NITRITE Negative (Normal) UA - PH 6.0 (Normal) UA - PROTEIN Negative mg/dL (Normal) UA - SPECIFIC GRAVITY 1.010 (Normal) URINE UROBILINGN SPRING TIMED Normal mg/dL (Normal) 5-Wra-001624:11 URINE ARELY CULTURE (SPRING Comments: PATIENT NOT FASTINGPERFORMED BY: [facility] SussexLrauuc9112 [facility] [id number] Information: SRC:UR [id number] COL COUNT) (32471) Result 1 MUG (Normal) Comments: Mixed urogenital ykera345 Colonies/mL Urine Final report (Normal) Culture,Comprehensive 69-Fpg-180921:1 ISAIAS 8.59 ug/dL (Normal) Comments: COMMENTS: FAX RESULTS TO DR. KEVIN HARTMAN DRAW 0 Range: 3.09-22.40 Comments: Adult (AM) 4.30 - 22.40 ug/dL Adult (PM) 3.09 - 16.66 ug/dL 60-Tpw-93799:40 ISAIAS 10.40 ug/dL (Normal) Comments: COMMENTS: FAX [...] (Normal) Range: 70-110 Comments: RESULTS FAXED TO [phone] 01/13/12 0934 MARINE TOURE.RESULTS FAXED TO [phone] 01/13/12 0959 MARINE TOURE. :25 ISAIAS 13.11 [...] RESULTS TO DR. KEVIN HARTMAN DRAW Range: 0.76-1.46 :25 TPO 1232 {IU/mL} (Abnormal) Comments: COMMENTS: FAX RESULTS TO DR. KEVIN HARTMAN DRAW Range: 0-34 Comments: Results confirmed ondilution.Performed at: [address] [id number] Director: Omer Stout PhD, Phone: [phone] 54-Ulp-24167:25 TSH 5.66 {uIU/mL} (Abnormal) Comments: COMMENTS: FAX RESULTS TO DR. BROWN - IVT DRAW Range: 0.358-3.74 :15 CBCMD Comments: [...] :15 LIPID Comments: DR BROWN ORDERED LIPID,CMP,TSH,CBCMDDR VELLANKI ORDRED CMP,CBCD HDL 66 mg/dL (Normal) Comments: Reference [...] ORDERED LIPID,CMP,TSH,CBCMDDR VELLANKI ORDRED CMP,CBCD Range: 0.358-3.74 8-Ols-409821:46 MYOCARD PERF STRESS/REST MULT Radiology Report See [...] adame MD,Jose AntoniorosTranscribed on 11/30/11 1446 by ZULEMA VALLEign by Uzair Retana MD on 12/05/11 0829 Sign by: Uzair Retana MD 31-Gmd-417495:42 BRAIN W/WO CONTRAST Radiology Report See Note [...] Soto M.D.November 16, 2011 at 2:50:07 PM [id number] Signed LL/LL If you are the referring physician and would like to consult with theradiologist who provided this interpretation, please contact Shahla Weiss M.D. at . If this radiologist is unavailable, you willbe directed to another radiologist to assist. If you are a patient with a question regarding this report, pleasecontactyour referring physician fabiana fuentes. Professional Interpretation Provided By: [employer], Phone , These documents contain legally protected [...] destructionofthese documents. Dictated on 11/16/11 1250 by Abby SOTO MDscribed on 1456 by ITS IMPORTSign by SHAHLA SOTO MD on 11/16/11 1457 Sign by: DARLENE IRVINAIDANA 18-Pex-303920:25 CHEST WITH CONTRAST Radiology Report See Note [...] Galeana M.D.November 14, 2011 at 3:11:11 PM [id number] Signed GP/GP If you are the referring physician and would like to consult with theradiologist who provided this interpretation, please contact Luis Angel Quintana at [phone]. If this radiologist is unavailable, youwill be directed to another radiologist to assist. If you are a patient with a question regarding this report, pleasecontactyour referring physician directly. Professional Interpretation Provided By: [employer], Phone , These documents contain legally protected [...] destructionofthese documents. Dictated on 11/14/11 1430 by Kim Galeana MDranscribed on 11/15/11 1542 by ITS IMPORTSign by Barrera Galeana MD on 11/15/11 1543 Sign by: Barrera Galeana MD 42-Qqz-815095:39 L/S SPINE,MIN 4 VIEWS Radiology Report See [...] Galeana M.D.November 14, 2011 at 3:46:06 PM [id number] Signed GP/GP If you are the referring physician and would like to co nsult with theradiologist who provided this interpretation, please contact Luis Angel Quintana at [phone]. If this radiologist is unavailable, youwill be directed to another [facility]. If you are a patient with a question regarding this report, pleasecontactyour referring physician directly. Professional Interpretation Provided By: Sean, Phone ,Fax These documents contain legally protected [...] destructionofthese documents. Dictated on 11/14/11 1015 by Kim Galeana MDranscribed on 11/15/11 1604 by ITS IMPORTSign by Barrera Galeana MD on 11/15/11 160 Sign by: Barrera Galeana MD 46-Wxm-890221:38 CERV SPINE,MIN 4 VIEWS Radiology Report See [...] fusion at the C4, C5, and C5, G9tkaklhqcnd prosthetic disk material. 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 Normal visualized intervertebral neuroforamina. Normal visuali zed soft tissue structures. IMPRESSION:Anterior fusion at the C4-C5 and C6- C7 levels. Signed:Barrera Galeana M.D.November 14, 2011 at 3:47:12 PM [id number] Signed GP/GP If you ar e the referring physician and would like to consult with theradiologist who provided this interpretation, please contact Luis Angel Quintana at [phone]. If this radiologist is unavailable, youw ill be directed to another radiologist to assist. If you are a patient with a question regarding this report, pleasecontactyour referring physician directly. Professional Interpretation Provided By: Ra natarajan Phone , These documents contain legally protected [...] destructionofthese documents. Dictated on 11/14/11 1006 by Kim Galeana MDranscribed on 11/14/11 1553 by ITS IMPORTSign by Barrera Galeana MD on 11/14/111553 Sign by: Barrera Galeana MD 12-Lnp-926716:38 HIP, MIN 2 VIEWS Radiology Report See [...] Galeana M.D.November 14, 2011 at 3:48:20 PM [id number] Signed GP/GP If you are the referring physician and would like to consult with theradiologist who provided this interpre tation, please contact Luis Angel Quintana at [phone]. If this radiologist is unavailable, youwill be [...] 11/14/11 1006 by Wendy IRVIN,Kimranscribed on 11/14/11 1555 by ITS IMPORTSign by Wendy IRVIN,Barrera on 11/14/11 1556 Sign by: Barrera Galeana MD 22-Etd-99337:52 CBCMD RBCM NORM C+C {NORMAL} (Normal) PE [...] or Pulmonary Embolism (PE)RESULTS CALLED TO YOVANNY OLSON 11/14/11 ROSIE GIBSON.REPORT READ BACK BY SAME [...] Galeana M.D.November 14, 2011 at 3:48:08 PM [id number] Signed GP/GP If you are the referring physician and would like to consult with ld crowley who provided this interpretation, please contact Luis Angel Quintnaa at [phone]. If this radiologist is unavailable, youwill be directed to another radiologist to assist. If you are a patient with a question regarding this report, pleasecontactyour referring physician directly. Professional Interpretation Provided By: [employer], Phone , These document s contain legally [...] structionofthese documents. Dictated on 11/14/11 1014 by Wendy IRVIN,Kimranscribed on 11/15/11 1607 by ITS IMPORTSign by Wendy IRVIN,Barrera on 11/15/11 1608 Sign by: Barrera Galeana MD 2-Rqd-519757:42 JACQUI Comments: DR BROWN ORDERED LIPID TSH CMPDR VELLANKI ORDERED CMP CBCD DNA JACQUI CHERIE SCL-70 SSA/SSBENA ANTICENTROMERE taANA 45 AU/mL (Normal) 9-Vyv-459112:42 ANEX Comments: DR BROWN ORDERED LIPID TSH CMPDR VELLANKI ORDERED CMP CBCD DNA JACQUI CHERIE SCL-70 SSA/SSBENA ANTICENTROMERE taANA COMMENT (Normal) Comments: TESTING INTERPRETATIONSPOSITIVE: > 120EQUIVOCAL: 100 - 120NEGATIVE: < 100 taRNP 29 AU/mL (Normal) taSM 32 AU/mL (Normal) 4-Jju-166673:42 ANTIJO1 Comments: DR BROWN ORDERED LIPID TSH CMPDR VELLANKI ORDERED CMP CBCD DNA JACQUI CHERIE SCL-70 SSA/SSBENA ANTICENTROMERE taJO1 17 AU/mL (Normal) 2-Jor-711350:42 CBCD ANC 3.9 3/uL (Normal) Range: 2.0-7.7 [...] Please note: Revised HEMOGLOBIN REFERENCE RANGES Reference [place] effective 09/28/11.Please note: Revised HEMOGLOBIN REFERENCE RANGES Reference [employer] effective 09/28/11. RBC 3.87 {M/mm3} (Abnormal) Range: 4.2-5.4 WBC 6.2 K/mm3 (Normal) Range: 4.4-11.0 0-Jwb-466156:42 CENTB Comments: DR BROWN ORDERED LIPID TSH CMPDR VELLANKI ORDERED CMP CBCD DNA JACQUI CHERIE SCL-70 SSA/SSBENA ANTICENTROMERE taCENTB 6 AU/mL (Normal) 0-Qig-001337:42 CMP Comments: DR BROWN ORDERED LIPID TSH [...] 7-18 GLU 94 mg/dL (Normal) Range: 70-110 1-Nwk-307443:42 DNAAB Comments: DR BROWN ORDERED LIPID TSH CMPDR VELLANCHING ORDERED CMP CBCD DNA JACQUI CHERIE SCL-70 SSA/SSBENA ANTICENTROMERE tadsDNA 5 {IU/mL} (Normal) 8-Pnb-590055:42 LIPID Comments: DR BROWN ORDERED LIPID TSH [...] 200-240 mg/dL Borderline >240 mg/dL High Risk 7-Hff-947413:42 SCL70 Comments: DR BROWN ORDERED LIPID TSH CMPDR VELLANKI ORDERED CMP CBCD DNA JACQUI CHERIE SCL-70 SSA/SSBENA ANTICENTROMERE taSCL70 45 AU/mL (Normal) 4-Vmq-115121:42 SSA Comments: DR BROWN ORDERED LIPID TSH CMPDR VELLANKI ORDERED CMP CBCD DNA JACQUI CHERIE SCL-70 SSA/SSBENA ANTICENTROMERE taSSA 31 AU/mL (Normal) 6-Kta-125504:42 SSB Comments: DR BROWN ORDERED LIPID TSH CMPDR VELLANKI ORDERED CMP CBCD DNA JAQCUI CHERIE SCL-70 SSA/SSBENA ANTICENTROMERE taSSB 34 AU/mL (Normal) 6-Fjg-652478:42 TSH 11.70 {uIU/mL} (Abnormal) Comments: DR BROWN ORDERED LIPID TSH CMPDR VELLANKI ORDERED CMP CBCD DNA JACQUI CHERIE SCL-70 SSA/SSBENA ANTICENTROMERE Range: 0.358-3.74 76-Rol-46394:36 ESOPHAGUS ONLY Radiology Report See Note (Normal) [...] Galeana M.D.September 13, 2011 at 9:19:02 AM [id number] ly Signed GP/GP If you are the referring physician and would like to consult with theradiologist who provided this interpretation, please contact Luis Angel Quintana at [phone]. If this radiolo gist is unavailable, youwill be directed to another radiologist to assist. If you are a patient with a question regarding this report, pleasecontactyour referring physician directly. Professional Interp retation Provided By: [employer], Phone , Dictated on 09/13/11 0834 by Hilary Galeana MDribed on 09/13/11 0945 by ITS IMPORTSign by Barrera Galeana MD on 09/13/11 0946 Sign by: Barrera Galeana MD 05-Clb-06822:47 CBCMD RBCM NORM C+C {NORMAL} (Normal) PE [...] Signed GP/GP Professional Interpretation Provide d By: [facility], , To consult with a radiologist regarding this report, please call our [id number] line @ Dictated on 03/10 1331 by Kim Galeana MDranscribed on 06/28/111851 by ITS IMPORTSign by Barrera Galeana MD on 06/28/111852 Sign by: Barrera Galeana MD 32-Crk-46483:32 THYROID Radiology Report See Note (Normal) Comments: [...] change has occurred in comparison with the referencedp riorstudy. IMPRESSION:1. These size of the thyroid gland is stable.2. 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 Signed:John Spencer M.D.June 24, 2011 at 4:51:02 PM EDTElectronically Signed DL/DL Professional Interpretation Provided By: [employer], , To consult with a radiologist regarding t his report, please call our [id number] line @ Dictated on 06/24/11 1013 by John Spencer MDTranscribed on 06/24/115 by ITS IMPORTSign by John Spencer MD on 06/24/111655 Sign by: John Spencer MD 77-Sbs-42038:30 BILAT SCRN DIGITAL & CAD Radiology Report [...] EDTElectronically Signed GP/GP Professional Interpretation Provided By: [employer], , To consult with a radiologist regarding this report, please call our [id number] line @ Dictated on 06/24/11 0945 by Wendy IRVIN,AcrieleTranscribed on 06/24/11 1025 by ITS IMPORTSign by Wendy IRVIN,Barrera on 06/24/11 1026 Sign by: Wendy IRVIN,Barrera 50-Fgx-857046: CUT See Note (Normal) Comments: CULTURE OF TOUNG AND THROAT 11 Comments: 1+ YEAST ISOLATED No beta-hemolytic streptococcus isolated. :46 CBCMD MACRO 1+ (Normal) RBCM N CHROM [...] 7-18 GLU 94 mg/dL (Normal) Range: 70-110 32-Lal-380482:46 EBGM tEBINT Comment (Normal) Comments: EBV Interpretation Chart . Interpretation VCA-IgM EA-IgG VCA-IgG NA-ABS . Susceptible - - - - Acute Infection + +or- +or- - Convalescent Phase +or- +or- + + Chronic or Reactivated - + + +or- Old Infection - - +or- + + Antibody Pr esent - Antibody AbsentPerformed at: - [facility] [id number] Director: Iraida Willingham MD, Phone: [phone] EBNA > 8.0 {AI} (Abnormal) Range: 0.0-0.8 Comments: Negative <0.9 Equivocal 0.9 - 1.0 Positive >1.0 EBVG > 8.0 {AI} (Abnormal) Range: 0.0-0.8 Comments: Negative <0.9 Equivocal 0.9 - 1.0 Positive >1.0 EBEAG < 0.2 (Normal) Comments: Negative <0.9 Equivocal 0.9 - 1.0 Positive >1.0 EBVM < 0.2 {AI} (Normal) Range: 0.0-0.8 Comments: Negative <0.9 Equivocal 0.9 - 1.0 Positive >1.0 77-Wow-814278:28 CHEST, PA AND LATERAL Radiology Report See [...] radiologist regarding this report, please call our [id number] line @ Dictated on 06/07/11 1321 by Wendy IRVIN,Kimkindred hospitalniurkamt bed on 06/07/11 1408 by ITS IMPORTSign by Barrera Galeana MD on 06/07/11 1409 Sign by: Barrera Galeana MD CUT See Note (Normal) Comments: #1- PRESUMPTIVE FRANK ALBICANSNo beta-hemolytic streptococcus isolated. AMOUNT GROWTH RARE ORGANISM 1: YEAST 4:09 H.PYLORI 142591 < 0.9 U/mL (Normal) Range: 0.0-0.8 1:47 Comments: Negative <0.9 Indeterminate 0.9 - 1.0 Positive >1.0Performed at: [facility] [id number] Director: Iraida Willingham MD, Phone: [phone] 5-Jef-483754:34 CBCD,SMEAR DIFF MACROCYTE 1+ (Normal) RED CELL [...] 4.2-5.4 WBC 7.6 K/mm3 (Normal) Range: 4.4-11.0 3-Sct-571511:34 COMP METABOLIC GAP 8 (Normal) Range: 5-15 [...] 7-18 GLU 83 mg/dL (Normal) Range: 70-110 9-Kcz-831763:20 Urinalysis, Office (07349) UA - BILIRUBIN Negative (Normal) UA - [...] URINE CULTURE Culture exhibits no growth. (Normal) 1-Bhs-706191:07 CULTURE, THROAT See Note (Normal) Comments: AMOUNT [...] $ <=10 S VANCOMYCIN $ <=1 S 4-Abo-836826:30 Rapid Strep Test, Office (43749) Rapid Strep Test, Office Negative (Normal) 41-Okc-818754:52 SPINE,CERVICAL WITHOUT CONTRAS Radiology Report See Note [...] IMPORTSign by Barrera Galeana MD on 07/21/10 0102 Sign by: Barrera Galeana MD 82-Pkx-672478:22 CERV SPINE,MIN 4 VIEWS Radiology Report See Note (Normal) Comments: CLINICAL:Female, 49 years old. Neck pain. X-RAY EXAMINATION - CERVICAL SPINE TECHNIQUE:Five views of the cervical spine were obtained. COMPARISON:None FINDINGS:Normal craniovertebral junction. Normal anterior atlantoaxialarticulation. Normal odontoid process. There is straightening of the normal cervical lordosis. Normal vertebralbodies and posterior osseous elements. The transverse processes of T3xfvboftkwguk. There is multi-level degenerative disc space narrowing with endplatespondylosis. There is multi-level osseous foraminal stenosis at A4-E5gzhC9-K0, bilateral. Normal visualized soft tiss ue structures. IMPRESSION:Multilevel degenerative disc disease with osseous foraminal stenosis.Prominent transverse processes of C7 may cause thoracic outlet syndrome.Straightening of the normal cervica l lordosis. Dictated on 07/13/10 1536 by MANJINDER HOLLIDAY MDOTranscribed on 07/14/10 1209 by ITS IMPORTSign by SWATI HOLLIDAY MD on 07/14/10 1210 Sign by: SWATI HOLLIDAY MD 21-Mcy-61410:00 CHEST, PA AND LATERAL Radiology Report See [...] 07/14/10 1304 Sign by: SWATI HOLLIDAY MD :35 BILAT SCRN DIGITAL & CAD Radiology Report [...] of a clinically suspiciousabnormality. Dictated on 06/22/10 09 by MELISSA LEES MDTranscribed on 06/22/10 235 by ITS IMPORTSign by MELISSA LEES MD on 06/22/102351 Sign by: MELISSA LEES MD :34 DEXA BONE DENSITY STUDY (HP) Radiology Report See Note (Normal) Comments: CLINICAL:Female, 49 years old. The patient is a postmenopausal. EXAMINATION:DUAL ENERGY X-RAY ABSORPTIOMETRY / DEXA. TECHNIQUE:Bone Mineral Density (BMD) measurements of lumbar spine and bi lateralhipsw ere obtained using a Lux[employer] scanner.. COMPARISON:Comparison is made with prior study [...] http://www.nof.org Dictated on 06/22/10 0942 by Wendy IRVIN,EmersoneleTranscribed on 06/22/10 144 by ITS IMPORTSign by Barrera Galeana MD on 06/22/101444 Sign by: Barrera Galeana MD 5-Rrn-697640:14 Rapid Strep Test, Office (23420) Rapid Strep Test, Office Negative (Normal) 04-Jun-20100:00 CULTURE, THROAT See Note (Normal) Comments: Normal throat kaylene isolated. No beta-hemolyticstreptococcus isolated. :29 CBCD,SMEAR DIFF Comments: DR. BROWN ORDERED TSH LIPID CMP VITD CBCMDDR. VELLANKI CMP CBCD VITD MACROCYTE 1+ (Normal) RED [...] BROWN ORDERED TSH LIPID CMP VITD CBCMDDR. NENITAKI CMP CBCD VITD CL 101 mmol/L (Normal) [...] BROWN ORDERED TSH LIPID CMP VITD CBCMDDR. VELLANKI CMP CBCD VITD HDL 65 mg/dL (Normal) [...] BROWN ORDERED TSH LIPID CMP VITD CBCMDDR. ANYLANKI CMP CBCD VITD Range: 0.358-3.74 :29 VIT D,25 13887 53.4 ng/mL (Normal) Comments: DR. BROWN ORDERED TSH LIPID CMP VITD CBCMDDR. VELLANKI CMP CBCD VITD Range: 32.0-100.0 Comments: Recent studies consider the lower limit of 32.0 ng/mL to ama threshold for optimal health.Fco GARCIA. J Nutr. 2004;135(2):317-22.Performed at: [facility] LabCoAmber [place] [address] Director: Iraida Willingham MD, Phone: [phone] 23-Wpp-561136:30 LQD PAP [id number] PAPSMR Comment (Normal) Comments: The Pap smear [...] no HPV testing was performed. .Performed at: [facility] [address] [id number] Director: Nita Hernandez MD, Phone: [phone] COMM . (Normal) DIAGN Comment (Normal) Comments: NEGATIVE FOR INTRAEPITHELIAL LESION AND MALIGNANCY.CELLULAR CHANGES ASSOCIATED WITH ATROPHY ARE PRESENT.Satisfactory for evaluation.Kiran Gayle, Underground Truck Operator ([facility]) :41 BONE SCAN WHOLE BODY Radiology Report [...] Report See Note (Normal) Comments: Exam Number: [id number] LINICAL:This is a 49-year-old female patient with [...] Report See Note (Normal) Comments: Exam Number: [id number] LINICAL:This is a 49 year old female [...] as noted above. Reported By: BARRERA GALEANA 6-Pzf-209690:41 THYROID (HP) Radiology Report See Note (Normal) Comments: Exam Number: [id number] LINICAL:This is a 49-year-old female patient with [...] described. Reported By: BARRERA GALEANA : ANTI-CCP 352312 2 {units} (Normal) Range: 0-19 41 Comments: Negative <20 Weak positive 20 - 39 Moderate positive 40 - 59 Strong positive >59Performed at: [facility] [address] [id number] Director: Eusebio Live MD, Phone: [phone] JACQUI DIR SEMI-QL JACQUI DIRECT 77 AU/mL (Normal) :13 ESR SED RATE 5 mm/h (Normal) Range: [...] T PROT 6.9 g/dL (Normal) Range: 6.4-8.2 :27 TSH 0.61 {uIU/mL} (Normal) Range: 0.358-3.74 :13 CULTURE, URINE URINE CULTURE See Note {CFU/mL} (Normal) Comments: COLONY COUNT 1000-10,000 ORGANISM 1: MIXED GRAM POSITIVE ORGANISMS 65-Dea-126198:13 LIPID HDL 68 mg/dL (Normal) Comments: Reference RangeHDL <40 mg/dL Low HDL CholesterolHDL >or= 60 mg/dL High HDL Cholesterol LDL 81 mg/dL (Normal) Range: 0-130 VLDL 17 mg/dL (Normal) Range: 5-40 CHOL 166 mg/dL (Normal) Comments: <200 mg/dL Puchyrhgj303-797 mg/dL Borderline>240 mg/dL High Risk TRIG 85 mg/dL (Normal) Comments: Serum Triglycerides Reference IntervalNormal <150 mg/dLBorderline high 150 - 199 mg/dLHigh 200 - 499 mg/ dLVery High > or = 500 mg/dL 31-Rht-931811:13 LIVER ALB 4.3 g/dL (Normal) Range: 3.4-5.0 ALK P 52 U/L (Normal) Range: 50-136 ALT 20 U/L (Normal) Range: 12-78 AST 11 U/L (Abnormal) Range: 15-37 D BILI 0.17 mg/dL (Normal) Range: 0.00-0.30 T BILI 0.80 mg/dL (Normal) Range: 0.00-1.00 T PROT 7.6 g/dL (Normal) Range: 6.4-8.2 90-Hdh-599738:13 TSH 0.49 {uIU/mL} (Normal) Range: 0.358-3.74 :13 VIT D,25 58437 63.3 ng/mL (Normal) Range: 32.0-100.0 Comments: Recent studies consider the lower limit of 32.0 ng/mL to ama threshold for optimal health.Fco GARCIA. J Nutr. 2004;135(2):317-22.Performed at: [facility] LabChristine [place] [address]Lab Director: Iraida Willingham MD, Phone: [phone] 1-Sdd-209775:57 CHEST, PA AND LATERAL (MT) Radiology Report See Note (Normal) Comments: Exam Number: [id number] X-RAY EXAMINATION: CHEST CLINICAL:This is a 49-year-old [...] 6.4-8.2 GLU 90 mg/dL (Normal) Range: 70-110 :14 COMPLETE UA BACTERIA 0 SEEN {/hpf} (Normal) [...] CHOL 320 mg/dL (Abnormal) Comments: <200 mg/dL Lzwmzrpkq295-169 mg/dL Borderline>240 mg/dL High Risk TRIG 107 mg/dL (Normal) Comments: Serum Triglycerides Reference IntervalNormal <150 mg/dLBorderline high 150 - 199 mg/dLHigh 200 - 499 mg/ dLVery High > or = 500 mg/dL :14 T4 FREE DIRECT 0.70 ng/dL (Abnormal) Range: 0.76-1.46 :14 TSH 15.20 {uIU/mL} Range: 0.358-3.74 (Abnormal) 47-Jjj-042562:01 BILAT SCRN DIGITAL & CAD Radiology Report See Note (Normal) Comments: Exam Number: [id number] MAMMOGRAM, BILATERAL SCREENING DIGITAL AND CAD HISTORYRoutine [...] mammograms werealso examined with computer-aided detection software ([employer], [employer] Reported By: MELISSA LEES M.D. Plan of [...] Other hyperlipidemia Planned Observations METABOLIC PANEL, COMPREHENSIVE (72757)Indication: Right flank pain On: :21 Request Comments: stat CBC W/AUTO DIFF WBC (77239)Indication: Right flank pain On: :21 Request Comments: stat URINE ARELY CULTURE-IDENTIFICATN (46565)Indication: Dysuria On: :01 Request CBC with auto diff (51588)Indication: Impaired fasting glucose On: 9-Mwe-126335:53 Request METABOLIC PANEL, COMPREHENSIVE (42879)Indication: Impaired fasting glucose On: 7-Xqw-093004:53 Request HGB A1C (16958)Indication: Impaired fasting glucose On: 5-Vpq-197247:53 Request LIPID PANEL (10398)Indication: Other hyperlipidemia On: 6-Jfw-682707:53 Request Vitamin D Hydroxy (58028)Indication: Vitamin D deficiency On: :10 Request LIPID PANEL (43822)Indication: Other hyperlipidemia On: :10 Request CBC with auto diff (76360)Indication: Impaired fasting glucose On: :08 Request METABOLIC PANEL, COMPREHENSIVE (51159)Indication: Impaired fasting glucose On: 14-Rek-151813:08 Request C-REACTIVE PROTEIN ([id number])Indication: Left-sided face pain On: :08 Request SED RATE ERYTHROCYTE ([id number])Indication: Left-sided face pain On: 59-Hre-548942:08 Request HGB A1C (51281)Indication: Impaired fasting glucose On: :08 Request CBC, PLATELETS & MANUAL DIFF ([id number])Indication: Fatigue On: :44 Request EBV Panel ([id number])Indication: Fatigue On: :44 Request LIPID PANEL (01453)Indication: Other hyperlipidemia On: :00 Request CBC with auto diff ([id number])Indication: Impaired fasting glucose On: :00 Request METABOLIC PANEL, COMPREHENSIVE (94378)Indication: Impaired fasting glucose On: :00 Request HGB A1C (76893)Indication: Impaired fasting glucose On: :00 Request LIPID PANEL ([id number])Indication: Other hyperlipidemia On: :37 Request TSH (THYROID STIMULATING HORMONE) (06077)Indication: Acquired hypothyroidism On: :37 Request CBC with auto diff ([id number])Indication: Impaired fasting glucose On: :35 Request METABOLIC PANEL, COMPREHENSIVE (95451)Indication: Impaired fasting glucose On: :35 Request MICROALBUMIN: CREATININE RATIO (95273) AND (88252)Indication: Impaired fasting glucose On: 7-Gyn-267751:35 Request HGB A1C (85032)Indication: Impaired fasting glucose On: :35 Request CBC W/AUTO DIFF WBC ([id number])Indication: Primary adrenocortical insufficiency On: 83-Uqg-371130:06 Request METABOLIC PANEL, COMPREHENSIVE (45604)Indication: Primary adrenocortical insufficiency On: 94-Byb-671661:06 Request LIPID PANEL (05146)Indication: Other hyperlipidemia On: : Request CBC with auto diff ([id number])Indication: Impaired fasting glucose On: :26 Request METABOLIC PANEL, COMPREHENSIVE (22736)Indication: Impaired fasting glucose On: :26 Request HGB A1C (25718)Indication: Impaired fasting glucose On: :26 Request TSH ([id number])Indication: Acquired hypothyroidism On: 15-Ytc-198732:59 Request Comments: 6 weeks RHEUMATOID FACTOR-QUANT (40969)Indication: Joint pain On: 09-Tii-126204:02 Request C-REACTIVE PROTEIN (11434)Indication: Joint pain On: 70-Djj-894570:02 Request SED RATE ERYTHROCYTE (93691)Indication: Joint pain On: :02 Request URIC ACID BLOOD (04482)Indication: Joint pain On: 81-Vao-314019:02 Request T3, FREE (TRIDOTHYRONINE) (37917)Indication: Acquired hypothyroidism On: :58 Request T4, FREE (THYROXINE) (64889)Indication: Acquired hypothyroidism On: :58 Request TSH ([id number])Indication: Acquired hypothyroidism On: :58 Request CBC W/AUTO DIFF WBC (47869)Indication: Edema, unspecified type On: :48 Request METABOLIC PANEL, COMPREHENSIVE (40796)Indication: Edema, unspecified type On: :48 Request SODIUM URINE ([id number])Indication: Hyponatremia On: :30 Request Vitamin D Hydroxy (43627)Indication: Hypocalcemia On: :31 Request PARATHORMONE (64261)Indication: Hypocalcemia On: : Request PHOSPHORUS (69121)Indication: Hypocalcemia On: :31 Request METABOLIC PANEL, COMPREHENSIVE (77921)Indication: Hypocalcemia On: :30 Request T3, FREE (TRIDOTHYRONINE) (00106)Indication: Acquired hypothyroidism On: :20 Request T4, FREE (THYROXINE) ([id number])Indication: Acquired hypothyroidism On: :20 Request TSH ([id number])Indication: Acquired hypothyroidism On: :20 Request HGB A1C (59536)Indication: Impaired fasting glucose On: :17 Request MICROALBUMIN: CREATININE RATIO (93723) AND ([id number])Indication: Impaired fasting glucose On: :17 Request METABOLIC PANEL, COMPREHENSIVE (88767)Indication: Impaired fasting glucose On: :17 Request T3, FREE (TRIDOTHYRONINE) ([id number])Indication: Acute nonintractable headache, unspecified headache type On: :46 Request T4, FREE (THYROXINE) (34635)Indication: Acute nonintractable headache, unspecified headache type On: 48-Wxv-335031:46 Request TSH ([id number])Indication: Acute nonintractable headache, unspecified headache type On: :46 Request TSH ([id number])Indication: Acquired hypothyroidism On: :46 Request T4, FREE (THYROXINE) ([id number])Indication: Acquired hypothyroidism On: :46 Request Metabolic Panel, Basic (86016)Indication: Hyponatremia On: :46 Request T3, FREE (TRIDOTHYRONINE) (34628)Indication: Acquired hypothyroidism On: :46 Request MICROALBUMIN: CREATININE RATIO (81463) AND (12315)Indication: Impaired fasting glucose On: :55 Request LIPOPROTEIN, BLD, BY NMR (59152)Indication: Other hyperlipidemia On: :55 Request METABOLIC PANEL, COMPREHENSIVE (42357)Indication: Osteoporosis On: 8-Knt-612674:52 Request Vitamin D Hydroxy (54821)Indication: Osteopenia On: 66-Zzu-678745:03 Request CBC W/AUTO DIFF WBC (27414)Indication: Gastroesophageal reflux disease without esophagitis On: 52-Hxy-212895:03 Request METABOLIC PANEL, COMPREHENSIVE (02213)Indication: Other hyperlipidemia On: 24-Knx-991346:03 Request LIPID PANEL (53141)Indication: Other hyperlipidemia On: 47-Slm-932774:03 Request DHEA-S (DEHYDROEPIANDROSTERONE SULFATE) ([id number])Indication: Adrenal disorder, other On: :29 Request VITAMIN D, 1, 25-DIHYDROXY (36928)Indication: Vitamin D deficiency On: :29 Request T4, TOTAL (84680)Indication: Acquired hypothyroidism On: : Request T3, TOTAL (TRIDOTHYRONINE) (03656)Indication: Acquired hypothyroidism On: :29 Request T3, FREE (TRIDOTHYRONINE) (30063)Indication: Acquired hypothyroidism On: : Request T4, FREE (THYROXINE) (52662)Indication: Acquired hypothyroidism On: 1-Reese-85416:28 Request TSH ([id number])Indication: Acquired hypothyroidism On: 27-Aug-20149:28 Request T4, FREE (THYROXINE) (33726)Indication: Thyroid nodule On: 6-Ncr-424567:57 Request T3, FREE (TRIDOTHYRONINE) ([id number])Indication: Thyroid nodule On: 0-Wov-630887:57 Request TSH ([id number])Indication: Thyroid nodule On: 8-Tnv-362837:57 Request T3, FREE (TRIDOTHYRONINE) ([id number])Indication: Acquired hypothyroidism On: :39 Request Comments: forward to Dr Grimm, Endocronologist, [place] T4, FREE (THYROXINE) (31172)Indication: Acquired hypothyroidism On: :39 Request Comments: forward to Dr Grimm, Endocronologist, [place] TSH (65307)Indication: Acquired hypothyroidism On: :39 Request Comments: forward to Dr Grimm, Endocronologist, [place] DHEA (DEHYDROEPIANDROSTERONE) (75253)Indication: Adrenal disorder, other On: :39 Request Comments: forward to Dr Grimm, Endocronologist, [place] CALCIFEDIOL (21549)Indication: Vitamin D deficiency On: :38 Request Comments: forward to Dr Grimm, Endocronologist, [facility] METABOLIC PANEL, COMPREHENSIVE (86206)Indication: Other hyperlipidemia On: 68-Zoi-025377:32 Request LIPID PANEL (74900)Indication: Other hyperlipidemia On: 33-Kao-168443:32 Request CBC W/AUTO DIFF WBC (04897)Indication: Macrocytosis without anemia On: 00-Yog-638421:53 Request METABOLIC PANEL, COMPREHENSIVE (63355)Indication: Other hyperlipidemia On: 85-Cag-357336:53 Request LIPID PANEL (37509)Indication: Other hyperlipidemia On: 25-Hfo-886078:53 Request METABOLIC PANEL, COMPREHENSIVE (25420)Indication: Other hyperlipidemia On: 62-Zji-269178:24 Request LIPID PANEL (87989)Indication: Other hyperlipidemia On: 14-Lgq-883660:24 Request CULTURE, SPUTUM ([id number])Indication: Cough On: 23-Gks-804438:14 Request METABOLIC PANEL, COMPREHENSIVE (29865)Indication: Other hyperlipidemia On: 3-Hbv-211349:02 Request LIPID PANEL (20427)Indication: Other hyperlipidemia On: 2-Wlo-118255:02 Request CBC WITH MANUAL DIFF ([id number])Indication: Upper Respiratory Infection On: 8-Ilw-757661:11 Request METABOLIC PANEL, COMPREHENSIVE (43870)Indication: Upper Respiratory Infection On: 0-Irw-733688:11 Request LIPID PANEL (06403)Indication: Other hyperlipidemia On: :11 Request LIPID PANEL (83413)Indication: Other hyperlipidemia On: :28 Request METABOLIC PANEL, COMPREHENSIVE (10257)Indication: Other hyperlipidemia On: :28 Request Vitamin D Hydroxy ([id number])Indication: Osteopenia On: :16 Request CBC WITH MANUAL DIFF (52034)Indication: Fatigue On: 08-Gxg-504214:16 Request METABOLIC PANEL, COMPREHENSIVE (46542)Indication: Fatigue On: 84-Aoh-875533:16 Request T3, FREE (TRIDOTHYRONINE) ([id number])Indication: Acquired hypothyroidism On: 84-Dtu-008947:16 Request T4, FREE (THYROXINE) (98830)Indication: Acquired hypothyroidism On: 58-Aiw-207891:16 Request TSH ([id number])Indication: Acquired hypothyroidism On: 90-Xeo-469176:16 Request LIPID PANEL ([id number])Indication: Other hyperlipidemia On: 99-Eod-061192:15 Request T3, FREE (TRIDOTHYRONINE) (36088)Indication: Acquired hypothyroidism On: 21-Feb-2012 Request T4, FREE (THYROXINE) (10645)Indication: Acquired hypothyroidism On: 21-Feb-2012 Request TSH ([id number])Indication: Acquired hypothyroidism On: 21-Feb-2012 Request Metabolic Panel, Basic (08867)Indication: Fatigue On: 42-Yis-784459:58 Request Anti-TPO Antibody (96143)Indication: Acquired hypothyroidism On: 99-Wuf-710684:56 Request T3, FREE (TRIDOTHYRONINE) ([id number])Indication: Acquired hypothyroidism On: 40-Wws-647007:56 Request T4, FREE (THYROXINE) ([id number])Indication: Acquired hypothyroidism On: 50-Vyh-456646:56 Request TSH ([id number])Indication: Acquired hypothyroidism On: 27-Rzx-731914:49 Request VITAMIN B-12 (CYANOCOBALAMIN) (26351)Indication: Macrocytosis without anemia On: 86-Sxj-214146:49 Request TSH ([id number])Indication: Palpitations On: :48 Request METABOLIC PANEL, COMPREHENSIVE (98098)Indication: Syncope On: :48 Request CBC WITH MANUAL DIFF ([id number])Indication: Syncope On: :48 Request D-Dimer (87489)Indication: Syncope On: :48 Request Comments: stat CBC WITH MANUAL DIFF ([id number])Indication: inflammatory arthritis- following with valenke On: 47-Xxc-778452:03 Request METABOLIC PANEL, COMPREHENSIVE (48041)Indication: inflammatory arthritis- following with valenke On: 52-Nua-601562:03 Request LIPID PANEL (31623)Indication: Other hyperlipidemia On: 52-Cat-791345:03 Request TSH ([id number])Indication: Acquired hypothyroidism On: 63-Zvb-44198:56 Request TSH ([id number])Indication: Acquired hypothyroidism On: 6-Zqw-577751:08 Request Comments: to be done in 8 weeks. METABOLIC PANEL, COMPREHENSIVE (61455)Indication: Dysphagia, unspecified dysphagia On: 48-Usc-536210:52 Request LIPID PANEL ([id number])Indication: Other hyperlipidemia On: 28-Zfo-125318:52 Request TSH ([id number])Indication: Acquired hypothyroidism On: 23-Std-412283:52 Request TSH ([id number])Indication: Acquired hypothyroidism On: 45-Qrn-360077:15 Request CULTURE, SPUTUM (34652)Indication: Cough On: 5-Ykq-743411:52 Request Throat Culture ([id number])Indication: Unspecified bacterial pneumonia On: 05-Nom-031237:00 Request Comments: swab tounge per order from Dr. Brown ARELY CULTURE-OTHER ([id number])Indication: Unspecified bacterial pneumonia On: :43 Request EBV Panel ([id number])Indication: Fatigue On: :41 Request METABOLIC PANEL, COMPREHENSIVE (94122)Indication: Fatigue On: :41 Request CBC WITH MANUAL DIFF (78901)Indication: Fatigue On: :41 Request ARELY CULTURE-OTHER ([id number])Indication: Pharyngitis, acute On: :24 Request Rapid Strep Test, Office (39575)Indication: Pharyngitis, acute On: :24 Request CBC WITH MANUAL DIFF ([id number])Indication: Anxiety On: :13 Request METABOLIC PANEL, COMPREHENSIVE (05002)Indication: Other hyperlipidemia On: :13 Request T4, FREE (THYROXINE) (83403)Indication: Acquired hypothyroidism On: :12 Request T3, FREE (TRIDOTHYRONINE) (15032)Indication: Acquired hypothyroidism On: :12 Request TSH (72063)Indication: Acquired hypothyroidism On: :12 Request LIPID PANEL (62434)Indication: Other hyperlipidemia On: :11 Request URINE ARELY CULTURE-SPRING COL COUNT (99004)Indication: Urinary frequency On: :21 Request METABOLIC PANEL, COMPREHENSIVE (21784)Indication: Gastroesophageal reflux disease without esophagitis On: :19 Request CBC WITH MANUAL DIFF ([id number])Indication: Gastroesophageal reflux disease without esophagitis On: :19 Request HELICOBACTER PYLORI ANTIBODY PROFILE IgG, IgM, IgA (52808)Indication: Gastroesophageal reflux disease without esophagitis On: :13 Request CBC WITH MANUAL DIFF ([id number])Indication: Preoperative examination On: :42 Request METABOLIC PANEL, COMPREHENSIVE (11047)Indication: Preoperative examination On: :42 Request PTT (Activated Partial Thromboplastin Time) ([id number])Indication: Preoperative examination On: :42 Request PT (Prothrobim Time) (10047)Indication: Preoperative examination On: :42 Request URINALYSIS, W/ MICRO (98495)Indication: Preoperative examination On: :41 Request TSH ([id number])Indication: Acquired hypothyroidism On: :41 Request LIPID PANEL (67609)Indication: Other hyperlipidemia On: :41 Request ARELY CULTURE-OTHER (48542)Indication: Pharyngitis, acute On: 5-Pyj-198884:30 Request ARELY CULTURE-OTHER ([id number])Indication: Pharyngitis, acute On: 8-Nvd-816826:14 Request Thin prep Pap (70713)Indication: Well woman exam On: 59-Sua-54698:47 Request Thin prep Pap (52140)Indication: Well woman exam On: 1-Owf-904946:09 Request Vitamin D Hydroxy (45904)Indication: Osteopenia On: :24 Request CBC WITH MANUAL DIFF (04619)Indication: 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 On: :24 Request METABOLIC PANEL, COMPREHENSIVE (31120)Indication: 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 On: :24 Request LIPID PANEL (21260)Indication: Other hyperlipidemia On: :24 Request TSH ([id number])Indication: Acquired hypothyroidism On: :23 Request Creatine Kinase Total (11030)Indication: Arthritis On: : Request METABOLIC PANEL, COMPREHENSIVE (56067)Indication: Arthritis On: :05 Request CCP ANTIBODY (21617)Indication: Arthritis On: :05 Request SED RATE ERYTHROCYTE (03775)Indication: Arthritis On: :05 Request C-REACTIVE PROTEIN (79806)Indication: Arthritis On: :05 Request JACQUI (ANTINUCLEAR ANTIBODY) (13221)Indication: Arthritis On: :05 Request RHEUMATOID FACTOR-QUANT (30882)Indication: Arthritis On: :05 Request TSH (31172)Indication: Acquired hypothyroidism On: :06 Request HEPATIC FUNCTION PANEL (99766)Indication: Other hyperlipidemia On: : Request LIPID PANEL (98335)Indication: Other hyperlipidemia On: : Request Vitamin D Hydroxy (40411)Indication: Osteopenia On: :27 Request LIPID PANEL ([id number])Indication: Other hyperlipidemia On: :22 Request HEPATIC FUNCTION PANEL (90055)Indication: Other hyperlipidemia On: :21 Request URINE ARELY CULTURE (SPRING COL COUNT) (52426)Indication: Abnormal urine On: :19 Request TSH ([id number])Indication: Acquired hypothyroidism On: :18 Request URINALYSIS, W/ MICRO ([id number])Indication: Low back pain On: :50 Request T3, FREE (TRIDOTHYRONINE) (46750)Indication: Acquired hypothyroidism On: :50 Request T4, FREE (THYROXINE) (73642)Indication: Acquired hypothyroidism On: :50 Request CBC WITH MANUAL DIFF (67692)Indication: Low back pain On: :49 Request METABOLIC PANEL, COMPREHENSIVE (95332)Indication: Family history of diabetes mellitus On: :49 Request LIPID PANEL ([id number])Indication: Other hyperlipidemia On: :47 Request TSH ([id number])Indication: Acquired hypothyroidism On: :47 Request Planned Encounters Medical; [facility] 3 Month FU - On: 07-Mar-2018 11:00 [facility] Fast DO, Martha A Fast DO, Martha A Planned Procedures CT - Abdomen & Pelvis Stone On: 08-Jan-2018 Intent ProtocolBy: Fast , Martha A Fast Comments: stat call wet read DO, Martha A INJECTION, PROLIA ([id number])By: Kevin On: 05-Dec-2017 Intent DO Martha A Fast DO, Martha A Comments: [id number] arm, SCprefilled syringeMLONG ELECTROCARDIOGRAM, COMPLETE (ECG) On: 05-Dec-2017 Intent ([id number])By: Kevin SAMUEL Martha A Fast Comments: ekg showed normal sinus rhythym, normal axis, no acute st/t wave changes sinus ariana DO, Martha A MRI OF BRAIN WITH AND WITHOUT On: 01-Nov-2017 Intent CONTRAST ([id number])By: Martha Brown DO Comments: dont schedule on or A Kevin SAMUEL Martha A Flu Vaccine (Quadrivalent) 83049Id: On: 01-Nov-2017 Intent Kevin DO, Martha A Fast DO, Martha A Comments: Lot: [id number]: 08/26/18Site: L dltd, IMDose prefilled syringegiven by: Kahlil reviewed and ABN signed Radiology - Forearm - RightBy: Fast On: 28-Jun-2017 Intent DO, Martha A Fast DO, Martha A DEXA SCAN AXIAL SKELETON (17135)By: On: 28-Jun-2017 Intent Fast DO, Martha A Fast DO, Martha A Comments: august SCREENING DIGITAL TOMOSYNTHESIS OF On: 28-Jun-2017 Intent BREAST ([id number])By: Kevin SAMUEL Martha A Comments: august Fast DO, Martha A Radiology - Wrist - RightBy: Fast On: 28-Jun-2017 Intent DO, Martha A Fast DO, Martha A Comments: fall with outstrestched hand CT - Brain/Head (Without On: 28-Jun-2017 Intent Contrast)By: Kevin SAMUEL Martah A Kevin Comments: stat- fall down steps now headache DO, Martha A INJECTION, PROLIA ([id number])By: Fast On: 18-May-2017 Intent DO, Martha A Fast DO, Martha A Comments: prolia injection 1 prefilled syringelot: [id number]: 05/2019RA sub-qAD RAWHIDE TRIMMER CHEST XRAY, PA & LATERAL ([id number])By: On: 01-May-2017 Intent Fast DO, Martha A Fast DO, Martha A INFUSION, NORMAL SALINE SOLUTION , On: 21-Apr-2017 Intent 1000 CC (Special Coverage Comments: 2nd bag same lot same exp Instructions Apply. See MCM: 2048) ([id number])By: Fast DO, Martha A Fast DO, Martha A INFUSION, NORMAL SALINE SOLUTION , On: 21-Apr-2017 Intent 1000 CC (Special Coverage Comments: Site:[address] [place] [address] [facility] Number of attemps:1Tolerated:wellLot/exp of NS [id number] 08/15Medication?: noMLONG, RAWHIDE TRIMMER Instructions Apply. See MCM: 2048) ([id number])By: Fast DO, Martha A Fast DO, Martha A CHEST XRAY, PA & LATERAL ([id number])By: On: 21-Apr-2017 Intent Fast DO, Martha A Fast DO, Martha A Comments: 3 weeks Ultrasound - ThyroidBy: Kevin DO, On: 07-Mar-2017 Intent Martha A Fast DO, Martha A PNEUM VAC ADLT/IMUMNOSPR, SBC/INTRM On: 20-Dec-2016 Intent ([id number])By: Martha Brown DO Comments: pnuemovax prefilled syringe injectionlot: [id number]: 04/2018L DELT IMpt tolerated wellAD RAWHIDE TRIMMER DO, Martha A Flu Vaccine (Quadrivalent) 67097Vv: On: 30-Nov-2016 Intent Kevin DO, Martha A Fast DO, Martha A Comments: lot: [id number]: 08/14/17ite/route: L michael, IMamt: 0.5mlVIS and ABN signed when applicableChelsea, CONCRETE POURER ELECTROCARDIOGRAM, COMPLETE (ECG) On: 29-Nov-2016 Intent (77163)By: Martha Brown DO Comments: ekg showed normal sinus rhythym, normal axis, no acute st/t wave changes DO, Martha A INJECTION, PROLIA ([id number])By: Kevin On: 04-Nov-2016 Intent DO Martha A Fast DO, Martha A Comments: Lot:[id number]:08/14/17Dose:0.5mLRoute:IMSite:L DltdGiven By:JKMVIS signed Nuclear Stress Test/Stress On: 01-Sep-2016 Intent SPECT/TreadmillBy: Martha Brown DO DO, Martha A Aerosol Treatment ([id number])By: Kevin On: 08-Aug-2016 Intent DO Martha A Fast DO, Martha A SCREENING DIGITAL TOMOSYNTHESIS OF On: 08-Aug-2016 Intent BREAST ([id number])By: Martha Brown DO Comments: end july Fran Brown DOa A Echo CompleteBy: Kevin DO, Martha A On: 08-Aug-2016 Intent Fast DO, Martha A EEGBy: Kevin SAMUEL, Martha A Fast DO, On: 18-Jul-2016 Intent Martha A Radiology - Cervical SpineBy: Kevin On: 23-Jun-2016 Intent , Martha A Fast DO, Martha A Radiology - Chest- PA and LatBy: On: 19-Jun-2016 Intent Fast DO, Martha A Fast DO, Martha A CT - Abdomen (IV Contrast On: 24-May-2016 Intent Needed)By: Fran Brown DOa A Fast DO, Martha A Ultrasound - ThyroidBy: Kevin SAMUEL On: 24-May-2016 Intent Martha A Fast DO, [...] Martha A Fast DO, Martha A Comments: Lot:[id number]:02/13Dose:60mLRoute:sub qSite: l armGiven By:ZACH signed MRI OF BRAIN WITH AND WITHOUT On: 08-Feb-2016 Intent CONTRAST ([id number])By: Martha Brown DO Comments: try to get this week- A Fast , Martha A Solu- Medrol Injection, 125mg On: 16-Dec-2015 Intent ([id number])By: Martha Brown DO A Kevin Comments: Lot:[id number]:04/2018Dose:125mgRoute:imSite:edita hipGiven By:ZACH signed DO, Martha A Aerosol Treatment (05833)By: Kevin On: 16-Dec-2015 Intent DO, Matrha A Fast DO, Martha A Flu Vaccine (Quadrivalent) 98712Mt: On: 30-Nov-2015 Intent Fast DO, Martha A Fast DO, Martha A Comments: Lot:[id number]:08/26/16Dose:0.5mLRoute:IMSite:Deja DltdGiven By:ZACH signed MRI LUMBAR SPINE W/O CONTRAST On: 01-Sep-2015 Intent ([id number])By: Martha Brown DO A Kevin Comments: hx of spine surgery- has done pt and pain management and nsaids- getting weak ehl right DO, Martha A DEXA SCAN AXIAL SKELETON ([id number])By: On: 06-Jul-2015 Intent Fast DO, Martha A Fast DO, Martha A MAMMOGRAM, SCREENING, BOTH BREAST On: 06-Jul-2015 Intent ([id number])By: Martha Brown DO, DO, Martha A Rocephon Injection, 1 Gm On: 06-Mar-2015 Intent ([id number])By: Martha Brown DO Comments: lot: [id number]: 04/27/17ite/route: RGM/IMamt: 1GVIS signed when applicableMILLIE Crespo DO Martha A Radiology - ChestBy: Nicole PANTOGRAPH SETTER, On: 09-Feb-2015 Intent Abby Clemente Flu Vaccine (Quadrivalent) 72960Hq: On: 10-Dec-2014 Intent Martha Brown DO, DO, Martha A Comments: Lot #:[id number] date: 07/2015Amount given:prefilled syringeSite given:L Dltd, IMGiven by: WINNIE Hart and ABN signed ADMINISTRATION OF INFLUENZA VIRUS On: 10-Dec-2014 Intent VACCINE ([id number])By: Martha Brown DO, DO, Martha A BILATERAL MAMMOGRAMS ([id number])By: On: 17-Jun-2014 Intent Martha Brown DO, DO, Martha A Comments: screening FLU VAC, SPLIT, >3 YEARS, INTRAMUSC On: 02-Dec-2013 Intent ([id number])By: Martha Brown DO Comments: Lot #:[id number] date:10/2015Amount given:0.5mlRoute: IMSite given: left deltoidGiven by: GARETT Washington DO, Debra A IMMUNIZ ADMNIN, 1 VAC, SNGL/COMBO On: 02-Dec-2013 Intent (29465)By: Visit, Nurse CT OF RIGHT HIP WITH CONTRAST On: 30-Sep-2013 Intent (51849)By: Martha Brown DO Comments: with or without contrast Martha SAMUEL A REMOVAL OF SUTURE BY A PROVIDER On: 30-Sep-2013 Intent OTHER THAN PROVIDER WHO ORIGINALLY Comments: rozina in head, 2 removed, pt tolerated PLACED SUTURE ([id number])By: Visit, Nurse Radiology - PelvisBy: Kevin SAMUEL, On: 25-Sep-2013 Intent Martha Brown DO, Martha A Radiology - Hip - RightBy: Kevin SAMUEL, On: 25-Sep-2013 Intent Martha Brown DO, Martha A Comments: stat call results Radiology - Thoracic SpineBy: Kevin On: 25-Sep-2013 Intent DO, Martha A Fast DO, Martha A Radiology - Forearm - RightBy: Fast On: 25-Sep-2013 Intent DO, Martha A Fast DO, Martha A Pulse Oximetry (51554)By: Fast DO, On: 14-May-2013 Intent Martha A Fast DO, Martha A Comments: 98 Spirometry (28548)By: Kevin DO, On: 14-May-2013 Intent Martha A Fast DO, Martha A Comments: good effor tand curve - mild decrease small airways Radiology - Chest- PA and LatBy: On: 14-May-2013 Intent Fast DO, Martha A Fast DO, Martha A Comments: stat call wet read Eprescribed prescriptions On: 14-May-2013 Intent (G8553)By: Fast DO, Martha A Fast DO, Martha A Eprescribed prescriptions On: 29-Apr-2013 Intent (G8553)By: Fast DO, Martha A Fast DO, Martha A Eprescribed prescriptions On: 19-Feb-2013 Intent (G8553)By: Cherie Fountain FLU VAC, SPLIT, >3 YEARS, INTRAMUSC On: 28-Jan-2013 Intent (60746)By: Fast DO, Martha A Fast Comments: Lot #:[id number] date:mount given:0.5mlRoute: IMSite given: L dltdVIS and ABN signedGiven by: GARETT Washington DO, Martha A IMMUNIZ ADMNIN, 1 VAC, SNGL/COMBO On: 28-Jan-2013 Intent ([id number])By: Kevin DO, Martha A Fast DO, Martha A Eprescribed prescriptions On: 28-Jan-2013 Intent (G8553)By: Patito Tineo Eprescribed prescriptions On: 17-Dec-2012 Intent (G8553)By: Cherie Fountain Breast Ultrasound - LeftBy: Fast On: 02-Nov-2012 Intent DO, Martha A Fast DO, Mratha A Breast Diagnostic - LeftBy: Fast On: 02-Nov-2012 Intent DO, Martha A Fast DO, Martha A CT - Abdomen & Pelvis Stone On: 12-Sep-2012 Intent ProtocolBy: Fast DO, Martha A Fast DO, Martha A Spirometry (30153)By: Fast DO, On: 28-May-2012 Intent Martha A Fast DO, Martha A Comments: good effort and curve mild obst Pulse Oximetry (29325)By: Fast DO, On: 28-May-2012 Intent Martha A [...] SPLIT, >3 YEARS, INTRAMUSC On: 09-Dec-2011 Intent (16524)By: Patito Tineo Comments: Lot #[id number]-5/30/13Site-left deltoidgiven by: Angela Vincent, RAWHIDE TRIMMER IMMUNIZ ADMNIN, 1 VAC, SNGL/COMBO On: 09-Dec-2011 Intent ([id number])By: Patito Tineo Nuclear Stress Test/Stress On: 22-Nov-2011 Intent SPECT/TreadmillBy: Fast DO, Martha A Fast DO, Martha A Echo CompleteBy: [...] A Comments: with 12mm tablet Pulse Oximetry (59880)By: Fast DO, On: 28-Jun-2011 Intent Martha A Fast DO, Martha A Comments: 98 Radiology - Chest- PA and LatBy: On: 28-Jun-2011 Intent Fast DO, Martha A Fast DO, Martha A Comments: stat call wet read Spirometry (28930)By: Fast DO, On: 28-Jun-2011 Intent Martha A Fast DO, Martha A Comments: good effort and curve normal Radiology - ChestBy: Fast DO, Martha On: 07-Jun-2011 Intent A Fast DO, Martha A Comments: PA/LAT (do in 1 month) Eprescribed prescriptions On: 07-Jun-2011 Intent (G8553)By: Fast DO, Martha A Fast DO, Martha A Pulse Oximetry (06062)By: Fast DO, On: 07-Jun-2011 Intent Martha A Fast DO, Martha A Comments: 95 Radiology - Chest- PA and LatBy: On: 07-Jun-2011 Intent Fast DO, Martha A Fast DO, Martha A Comments: call wet read MAMMOGRAM, SCREENING, BOTH BREASTS On: 20-May-2011 Intent ([id number])By: Fast DO, Martha A Fast DO, Martha A Ultrasound - ThyroidBy: Fast DO, On: 27-Apr-2011 Intent Martha A Fast DO, Martha A TDAP VACCINE >7 IM ([id number])By: On: 27-Apr-2011 Intent Patito Tineo Comments: 2009 FLU VAC, SPLIT, >3 YEARS, INTRAMUSC On: 21-Dec-2010 Intent ([id number])By: Patito Tineo Comments: Lot #:[id number] date:mount given:0.5mlRoute: IMSite given:left deltGiven by: GARETT [place] IMMUNIZ ADMNIN, 1 VAC, SNGL/COMBO On: 21-Dec-2010 Intent ([id number])By: Patito Tineo EKG ([id number])By: Melissa SLOAN Cynthia On: 27-Oct-2010 Intent Comments: [...] Intent A Fast DO, Martha A Comments: pa and lat Radiology - Cervical SpineBy: Fast On: 13-Jul-2010 Intent DO, Martha A Fast DO, Martha A DXA, BONE DENSITY, AXIAL SKELETON On: 04-May-2010 Intent ([id number])By: Patito Tineo MAMMOGRAM, SCREENING, BOTH BREASTS On: 04-May-2010 Intent ([id number])By: Patito Tineo Clinical Breast Examination On: 04-May-2010 Intent ([id number])By: Patito Tineo Nuclear Medicine - Bone ScanBy: On: 02-Apr-2010 Intent Fast DO, Martha A Fast DO, Martha A Comments: full body- has neck pain and arthralgias and abnormal sacroiliac joint on xray-w ith focal sclerosis MAMMOGRAM, SCREENING, BOTH BREASTS On: 02-Apr-2010 Intent ([id number])By: Fast DO, Martha A Fast Comments: due end of may DO, Martha A Ultrasound - ThyroidBy: Noman, On: 23-Dec-2009 Intent Patito IMMUNIZ ADMNIN, 1 VAC, SNGL/COMBO On: 23-Dec-2009 Intent ([id number])By: Fast DO, Martha A Fast Comments: lot # [id number] 4Pexp- [id number]- 0.5ML tolerated well Mari SHANE DO, Martha A FLU VAC, SPLIT, >3 YEARS, INTRAMUSC On: 23-Dec-2009 Intent ([id number])By: Fast DO, Martha A Fast DO, Martha A Spirometry ([id number])By: Fast DO, On: 26-Aug-2009 Intent Martha A Fast DO, Martha A Comments: good effort and curve normal Pulse Oximetry ([id number])By: Fast DO, On: 26-Aug-2009 Intent Martha A Fast DO, Martha A Comments: 99 Radiology - Chest- PA and LatBy: On: 26-Aug-2009 Intent Fast DO, Martha A Fast DO, Martha A EKG ([id number])By: Fast DO, Martha A On: 02-Jul-2009 Intent [...] 125 MG Ordered: 16-Dec-2015 Pending Fast DO, Amrtha A Fast DO, Martha A INJECTION, PROLIA [...] Other hyperlipidemia : DISCONTINUED - LIPID PANEL (74591) Indication: Other hyperlipidemia BMI between 19-24,adult : [...] Instructions Indication: Syncope Encounters Office Visit On: 08-Jan-2018 11:01 Encounter Reason: [...] bp is good- has followup soon with nicolasa and on 5 mg of pred- and [...] fever- not at site of shot or biopsycachorro larsen he ordered another mri of neck [...] is good- she not go back to [facility] as she wants to wait until [...] in at with particular end o was nov and saw rheum- she is very fatigued- [...] - did End: 05-Sep-2016 9:46 get to [facility]- supposed to see endo doesnt think thyroid right- and doesnt have ms- seeing urolgoist oct 26- - saw neuro at [facility]- - they think white matter partly migrainous- they looked at her mris - they going to send to data analyst etl developer as well- the valium reallyhelping her sleep [...] the singular helps her better than the zyrtec End: 19-Jun-2016 21:37 , the allergy sx continue as she is outside working a lot.). Note for Follow up to discuss laboratory test results: does feel the prednisone has made a difference ==felt better than did- seeing French thinks MS but doesnt have the oligoclonal bands so not going to treat her until see neuro at [facility]- specialist to help determine- he increased [...] daily stress with her health issues and hubby health issues - Encounter Diagnosis: Chronic intractable [...] End: 28-Dec-2015 18:28 e. No fever since monday.), has decreased energy level and is sleeping [...] visual acuity (yearly). Note for Physical exam: [facility] Wellness Physical- she is seeing Dr Wilburn on for her back and gettig thoracic mri and sa w painmanagement stillnot comfortable- tried fosamax in past gaver her terrible side effects gi upset , [ADDITIONAL REASON] Follow up, Laboratory Test Results - Date: (08/2015- [facility] Wellness labs). Encounter Diagnosis: BMI between 19-24,adult, Smoker, MDP WELLNESS PHYSICAL, Osteoporosis, Gastroesophageal reflux disease without [...] help still has anxiety but helps- sometimes tr oge doesnt get sleep so will take 2 [...] was and follwoing with dr myers and nicolasa did her one density and follwoing her [...] Note for Hip problem: Pt was in [place] last week and slipped on wet ceramic [...] levels - just changedc again-s aw [place] and following multiple issues and saw louis [...] protein and low glycemic index- foods- she defindavid had hypoglycemia on 4 hourgtt and her hut was positive- bavis said no other neuro disorder Encounter Diagnosis: [...] - she saw neurologist dr howard in [place]- he did tilt table table test and [...] no new complaints- seeing pain management at [facility] has good energy level and is sleepin [...] she actually got it on sheets- c pollonst swallow well after surgery and had been [...] back in 2005- same surgeon- doing at [place]- she saw Alanajay jay who told ehr to stay on methotrex [...] medical issues: she is tired thinks is cyjayantalchaz wants to try off - doesnt think [...] vitamins and low salt diet. The med ica issues the patient is following up for [...] able to do more- and is joining [employer] to keep doing the exercises -- bp [...] Dr Gonzalez-- this person now moving to [facility]- mentally the aquatherapy is helpi ng- physically [...] help--was told last year chol re marin cook and her doctor wanted to put her on medsEncounter Diagnosis: Hyperlipidemia (272.4), Hypothyroidism (244.9), Degenerative Disc Disease - Lumbar (722.52), Spinal Stenosis, Unspecified Region (724.00), Family history of diabetes mellitus (V18.0), Low back pain (724.2), Abnormal mammogram (793.80), Fibrocystic Breast Disease (610.2), Hip bursitis 726.5 [facility] HospitalZURI LAW; a guarantor
--- OUTSIDE RECORDS SUMMARY | 2018-05-18 08:29 | XMS RPT_ITS | Continuity of Care Document ---
:1960 Author Organization [facility] Address [address] [facility] [address] [place] [address] Phone Care Team Providers Name Role Phone Martha Brown DO Unavailable Brinda IRVIN, Dr. Padilla Jones Unavailable Jitendra Cook MD Unavailable Alan Torres MD Unavailable Eusebio Braswell Unavailable Dr. Carlito Zamora DO Unavailable Aristides Daily Unavailable Unavailable Dr. Matt Wilburn MD Unavailable Shahla Myers MD Unavailable [facility], [facility] Unavailable Niru Taylor Unavailable Trudi Villafana Unavailable [...] Active Colon polyps (K63.5, 211.3) Comments: recheck 2018[facility] Status: Active Dehydration (E86.0, 276.51) Status: Active [...] : 24-May-2016 End : 01-Sep-2016 Inactive [place], 330865JAOB/ML (Mouth/Throat Suspension) 1 Suspension 5 cc 5 [...] hour before bed- failed omeprazole and pepcid Nahma 3 1200 MG Oral Capsule 2 qd [...] without Cont Result: Comments: See Note; NOTES: [facility] Imaging Services [address] [place] [address] Abdomen/Pelvis without Cont MR#: [id number] Acct: [id number] Name: TITA LAW Rep #: [id number] : 1960 F 57 From: Barrera Galeana MD PCP: Martha Brown DO Status: REG CLI Study: Abdomen/Pelvis without Cont Date of Exam: 01/08/18 Exam# [id number] Ordering Dr: Martha Brown TUDY: CT ABDOMEN [...] Barrera Galeana MD at 13:09 EST Tel [phone], Service support , CC: Martha Brown DO Turf Keeper: Signed 30-Dec-2017 Urgent Care Visit Report Result: Comments: See Note; NOTES: [facility] [address] [place] [address] OFFICE VISIT Date of Service: 12/30/17 MR#: [id number] Acct: [id number] Name: TITA LAW Rep #: [id number] : 1960 Provider: APPLE Casiano Age/Sex: 57/F Location: [facility] Status: Signed Intake Vital Signs12/30/17 Height 5 [...] person, oriented to place, oriented to time [facility] Head: normocephalic Ears: external ears normal, [...] W/WO Contrast Result: Comments: See Note; NOTES: [facility] Imaging Services [address] [place] [address] Brain W/WO Contrast MR#: [id number] Acct: [id number] Name: TITA LAW Rep #: [id number] : 1960 F 57 From: Pedro Luis Akhtar MD PCP: Martha Brown DO Status: REG CLI Study: Brain W/WO Contrast Date of Exam: 11/06/17 Exam# [id number] Ordering Dr: Martha Brown DO STUDY: MRI [...] Service support , CC: Martha Brown DO Turf Keeper: Signed 31-Aug-2017 SCREENING MAMM (CAD), BILAT Result: Comments: See Note; NOTES: [facility] Imaging Services [address] [place] [address] SCREENING MAMM (CAD), BILAT MR#: [id number] Acct: [id number] Name: TITA LAW Rep #: [id number] : 1960 F 57 From: Barrera Galeana MD PCP: Martha Brown DO Status: REG CLI Study: SCREENING MAMM (CAD), BILAT Date of Exam: 08/31/17 Exam# [id number] Ordering Dr: Martha Brown DO MAMMOGRAPHY - [...] biopsy of a clini griselda suspicious abnormality. [id number] Electronically Signed: Barrera Galeana MD at 14:24 EDT Tel [phone], Service support , CC: Martha Brown DO Turf Keeper: Signed 31-Aug-2017 Dexa Bone Density Study Result: Comments: See Note; NOTES: [facility] Imaging Services [address] [place] [address] Dexa Bone Density Study MR#: [id number] Acct: [id number] Name: TITA LAW Rep #: [id number] : 1960 F 57 From: Barrera Galeana MD PCP: Martha Brown DO Status: REG CLI Study: Dexa Bone Density Study Date of Exam: 08/31/17 Exam# [id number] Ordering Dr: Martha Brown DO STUDY: D [...] Barrera Galeana MD at 15:16 EDT Tel [phone], Service support , CC: Martha Brown DO Turf Keeper: Signed 27-Jul-2017 PT D/C Summary (1) Result: Comments: See Note; NOTES: [facility] Physical Therapy [facility] [address] [place] [address]. [address] [place] [address] Fax REHABILITATION SERVICES [facility] SUMMARY MR#: [id number] Acct: [id number] Name: TITA LAW Rep #: [id number] : 1960 57 From: Alan Miller PT, Cert. MDT, OCS Referring DrIfeanyi: Maddie MCRAE Prebish Status: REG RCR Insu zafar: [facility] SELF PAY INSURANCE HP - [...] please feel free to call me at [phone]. Thank you for the referral of this patient. Sincerely, Alan Miller PT, <Electronically signed by Alan yuan PT, Cert. PARRISH, OCS> 07/27/17 1739 CC: Maddie Fernandezbish; Martha Brown DO LISHA Signed 28-Jun-2017 Forearm 2 Views Result: Comments: See Note; NOTES: [facility] Imaging Services [address] [place] [address] Forearm 2 Views MR#: [id number] Acct: [id number] Name: TITA LAW Rep #: [id number] : 1960 F 56 From: Jam Thomas MD PCP: Martha Brown DO Status: REG CLI Study: Forearm 2 Views Date of Exam: 06/28/17 Exam# [id number] Ordering Dr: Martha Brown DO STUDY: X-RAY [...] Service support , CC: Martha Brown DO Turf Keeper: Signed 28-Jun-2017 Wrist min 3 Views Result: Comments: See Note; NOTES: [facility] Imaging Services [address] [place] [address] Wrist min 3 Views MR#: [id number] Acct: [id number] Name: ANITITA Rita Rep #: [id number] : 1960 F 56 From: Jam Thomas MD PCP: Martha Brown DO Status: REG CLI Study: Wrist min 3 Views Date of Exam: 06/28/17 Exam# [id number] Ordering Dr: Martha Brown DO STUDY: X-RAY [...] Service support , CC: Martha Brown DO Turf Keeper: Signed 28-Jun-2017 Brain/Head without Contrast Result: Comments: See Note; NOTES: [facility] Imaging Services [address] [place] [address] Brain/Head without Contrast MR#: [id number] Acct: [id number] Name: TITA LAW Rita Rep #: [id number] : 1960 F 56 From: Krzysztof Rivera MD PCP: Martha Brown DO Status: REG CLI Study: Brain/Head without Contrast Date of Exam: 06/28/17 Exam# [id number] Ordering Dr: Martha Brown DO STUDY : [...] Service support , CC: Martha Brown DO Turf Keeper: Signed 01-May-2017 Chest PA and Lateral Result: Comments: See Note; NOTES: [facility] Imaging Services [address] [place] [address] Chest PA and Lateral MR#: [id number] Acct: [id number] Name: TITA LAW Rep #: [id number] : 1960 F 56 From: Murray Palma MD PCP: Martha Brown DO Status: REG CLI Study: Chest PA and Lateral Date of Exam: 05/01/17 Exam# [id number] Ordering Dr: Martha Brown DO STUDY: X-RAY [...] MD at 17:05 EST , Service support [phone], CC: Martha rBown DO Turf Keeper: Signed 15-Apr-2017 Discharge Instruction Result: Comments: See Note; NOTES: [facility] Medical Records Department [address] [facility] [place] [address] Discharge Instruction 04/15/171812 MR#: [id number] Acct: [id number] Name: TITA MONTOYA Rep #: [id number] : 1960 56 From: Dusty Dumont MD [...] your Primary Care Provider. Call [facility] ([phone]) or report to the closest Emergency Room. Call 911 if necessary. 04/15/171813 <Electronically signed by Dusty Dumont MD> Date Dusty Dumont MD Cosigner Signature (If Indicated): Da te CC: Martha Brown DO 15-Apr-2017 Emergency Department Summary Result: Comments: See Note; NOTES: [facility] Medical Records Department [address] [place] [address] Emergency Department Summary 04/15/17 1811 MR#: [id number] Acct: [id number] Name: TITA LAW Rep #: [id number] : 1960 56 From: Dusty Dumont MD [...] acquired pneumonia This note was generated with MentorCloud software. It may contain incorrect words, spelling, [...] your Primary Care Provider. Call [facility] ([phone]) or report to the closest Emergency Room. Call 911 if necessary. 04/15/171812 <Electronically signed by Art Dumont MD> Date Dusty Dumont MD Cosigner Signature (If Indicated): Date CC: Martha Brown DO 15-Apr-2017 Chest PA and Lateral Result: Comments: See Note; NOTES: [facility] Imaging Services [address] [place] [address] Chest PA and Lateral MR#: [id number] Acct: [id number] Name: TITA LAW Rep #: [id number] : 1960 F 56 From: Erasto Persaud MD PCP: Martha Brown DO Status: REG ER Study: Chest PA and Lateral Date of Exam: 04/15/17 Exam# [id number] Ordering Dr: Dusty Dumont MD STUDY: X-RAY [...] CC: Martha Brown DO; Dusty Dumont MD Turf Keeper: Signed 03-Apr-2017 Inital Evaluation (1) - PT Result: Comments: See Note; NOTES: [facility] Physical Therapy [facility] [facility]. [address] [place] [address] Fax REHABILITATION SERVICES INITIAL EVALUATION MR#: [id number] Acct: [id number] Name: TITA LAW Rep #: [id number] : 1960 56 From: Alan Miller PT, Cert. MDT, OCS Referring Dr.: Maddie Munoz Status: REG RCR Insur ance: [facility] SELF PAY INSURANCE Patient's Visit Information TITA LAW is a 56 year old F referred to Physical Therapy by [facility] [employer].LPREBI with a diagnosis of L-IVDD,L- STENOSIS,L-SPONDYLOPATHY,MYALGIA. Date [...] to be FAXED BACK to us at [phone] for Medicare purposes. Please let me know if there are questions or concerns regarding this plan of care. Physician Signature: Date: <Electronically signed by Alan Miller PT Cert. T, OCS> 04/03/17 1017 CC: Maddie Munoz; Martha Brown DO LISHA Signed For Medicare only, by signing this I certify the plan of care. Physicians Signature Date 08-Mar-2017 Thyroid Result: Comments: See Note; NOTES: [facility] Imaging Services [address] [place] [address] Thyroid MR#: [id number] Acct: [id number] Name: TITA LAW Rep #: [id number] : [birth year] F 56 From: Barrera Galeana MD PCP: Martha Brown DO Status: REG CLI Study: Thyroid Date of Exam: 03/08/17 Exam# [id number] Ordering Dr: Martha Brown DO STUDY: THYROID [...] Galeana MD at 14:4 9 EST Tel [phone], Service support , CC: Martha Brown DO Turf Keeper: Signed 06-Dec-2016 TXT - Blood Flow Screening Result: Comments: See Note; NOTES: [facility] Cardiovascular Services [address] [place] [address] 12/06/16 0815 MR#: [id number] Acct: [id number] Name: TITA LAW Rep #: [id number] : 1960 56 From: Shane Cotto MD Attending Dr: Martha Brown DO Status: REG REF Ordering Dr: Date: 12/06/16 Location: [facility] Sex: F C Admitted: Reason For Study: [...] Sharif e Dictated: 12/06/16814 Date Transcribed: 12/06/162139 Turf Keeper: Signed 13-Sep-2016 Stress Report Result: Comments: See Note; NOTES: [facility] Cardiovascular Services [address] [place] [address] Verdana 4d MR#: [id number] Acct: [id number] Name: TITA LAW Rep #: [id number] [...] patient was injected with 32.8 mCi of Food Beverage Attendant 99m Cardiolite and subsequently stress SPECT Cardiolite [...] of 85%. This note was generated with 4meee software. It may contain incorrect words, spelling, and punctuation that were not noted in checking the not e before signing. 09/13/162053 <Electronically signed by Gato Blair MD> Date Gato Blair MD CC: Martha Brown DO; Gato Blair MD Date Dictated: 09/13/162046 Date Transcribed: 09/13/162046 Turf Keeper: PM Signed 30-Aug-2016 Electroencephalogram Result: Comments: See Note; NOTES: [facility] Pulmonary Services/Neurology [address] [place] [address] MR#: [id number] Acct: [id number] Name: TITA LAW Rep #: [id number] : 1960 56 From: Jacinto Salazar MD [...] Date Dic tated: 08/29/161720 Date Transcribed: 08/29/161720 Turf Keeper: RSR Signed 29-Aug-2016 SCREENING MAMM (CAD), BILAT Result: Comments: See Note; NOTES: [facility] Imaging Services [address] [place] [address] Verdana 4d SCREENING MAMM (CAD), BILAT MR#: [id number] Acct: [id number] Name: GINNY LAW Rep #: [id number] : 1960 F 56 From: Krzysztof White MD PCP: Martha Brown DO Status: REG CLI Study: SCREENING MAMM (CAD), BILAT Date of Exam: 08/29/16 Exam# [id number] Ordering Dr: Martha Brown DO MAMMOGRAPHY - [...] delay biopsy of a clinically suspicious abnormality. [id number] Electronically Signed: Dread White MD at 8:46 EDT , Service support , CC: Martha Brown DO Turf Keeper: Signed 25-Aug-2016 Echocardiogram Complete Result: Comments: See Note; NOTES: [facility] Cardiovascular Services [address] [place] [address] Echo Complete 08/25/16 1207 MR#: [id number] Acct: [id number] Name: TITA LAW Rep #: [id number] : 1960 56 From: Conrado Nolasco MD Attending Dr: Martha Brown DO Status: REG CLI Ordering Dr: Martha Brown DO Date: 08/25/16 Location: [facility] Sex: F C Admitted: Reason For Study: [...] Dictated: 08/25/16 1207 Date Transcribed: 08/25/16 1318 Turf Keeper: Signed 09-Aug-2016 Chest PA and Lateral Result: Comments: See Note; NOTES: [facility] Imaging Services [address] [place] [address] Verdana 4d Chest PA and Lateral MR#: [id number] Acct: [id number] Name: TITA LAW Marnie p #: [id number] : 1960 F 56 From: Dustin Villatoro DO PCP: Martha Brown DO Status: REG CLI Study: Chest PA and Lateral Date of Exam: 08/09/16 Exam# [id number] Ordering Dr: Martha Brown DO STUDY: X-RAY [...] Villatoro DO at 22:20 EDT T dominique [phone], Service support , CC: Martha Brown DO Turf Keeper: Signed 21-Jul-2016 Thyroid Result: Comments: See Note; NOTES: [facility] Imaging Services [address] [place] [address] Verdana 4d Thyroid MR#: [id number] Acct: [id number] Name: TITA LAW Rep #: [id number] : 1960 F 56 From: Quentin Inman DO PCP: Martha Brown DO Status: REG CLI Study: Thyroid Date of Exam: 07/21/16 Exam# [id number] Ordering Dr: Martha Brown DO STUDY: THYROID [...] Service support , CC: Martha Brown DO Turf Keeper: Signed 23-Jun-2016 Cerv Spine 4 or 5 Views Result: Comments: See Note; NOTES: [facility] Imaging Services [address] [place] [address] Verdana 4d Cerv Spine 4 or 5 Views MR#: [id number] Acct: [id number] Name: TITA LAW Rep #: [id number] : 1960 F 55 From: Hugo Pearce MD PCP: Martha Brown DO Status: REG CLI Study: Cerv Spine 4 or 5 Views Date of Exam: 06/23/16 Exam# [id number] Ordering Dr: Martha Brown DO STUDY: X-RAY [...] Service support , CC: Martha Brown DO Turf Keeper: Signed 23-Jun-2016 Cerv Spine 4 or 5 Views Result: Comments: See Note; NOTES: [facility] Imaging Services [facility] [place] [address] Verdaisy 4d Cerv Spine 4 or 5 Views MR#: [id number] Acct: [id number] Name: TITA LAW Rep #: [id number] : 1960 F 55 From: Hugo Pearce MD PCP: Martha Brown DO Status: REG CLI Study: Cerv Spine 4 or 5 Views Date of Exam: 06/23/16 Exam# [id number] Ordering Dr: Martha Brown DO ADDENDUM by [...] at 15:59 EDT Tel , Service support [phone], 06/28/16 2996 Date cc: Martha Brown DO * Signed [...] support , Fax CC: Martha Brown DO Turf Keeper: Signed 23-Jun-2016 Chest PA and Lateral Result: Comments: See Note; NOTES: [facility] Imaging Services [address] [place], [place] [address] [address] Verdana 4d Chest PA and Lateral MR#: [id number] Acct: [id number] Name: TITA LAW Marnie p #: [id number] : 1960 F 55 From: Hugo Pearce MD PCP: Martha Brown DO Status: REG CLI Study: Chest PA and Lateral Date of Exam: 06/23/16 Exam# [id number] Ordering Dr: Martha Brown TUDY: X-RAY CHEST [...] Service support , CC: Martha Brown DO Turf Keeper: Signed 02-Jun-2016 Abdomen WITH IV Contrast Result: Comments: See Note; NOTES: [facility] Imaging Services [address] [place] [address] Verdana 4d Abdomen WITH IV Contrast MR#: [id number] Acct: [id number] Name: BESSY LAW Rep #: [id number] : 1960 F 55 From: Isela Wright MD PCP: Martha Brown DO Status: REG CLI Study: Abdomen WITH IV Contrast Date of Exam: 06/02/16 Exam# [id number] Ordering Dr: Martha Brown TUDY: CT ABDOMEN [...] MD at 7:28 EDT , Service support [phone], CC: Martha Brown DO Turf Keeper: Signed 02-Jun-2016 Abdomen WITH IV Contrast Result: Comments: See Note; NOTES: [facility] Imaging Services [address] [place] [address] Verdana 4d Abdomen WITH IV Contrast MR#: [id number] Acct: [id number] Name: MANDY LAWSAVANNAH Sean Rep #: [id number] : 1960 F 55 From: Isela Wright MD PCP: Martha Brown DO Status: REG CLI Study: Abdomen WITH IV Contrast Date of Exam: 06/02/16 Exam# [id number] Ordering Dr: Martha Brown DO A DDENDUM [...] MD at 7:28 EDT , Service support [phone], Fax CC: Martha Brown DO Turf Keeper: Signed 19-May-2016 Hepatobilliary Img w/Pharm Int Result: Comments: See Note; NOTES: [facility] Imaging Services [address] [place] [address] Verdana 4d Hepatobilliary Img w/Pharm Int MR#: [id number] Acct: [id number] Name: TITA LAW Rep #: [id number] : 1960 F 55 From: Mario Olivo DO PCP: Martha Brown DO Status: REG CLI Study: Hepatobilliary Img w/Pharm Int Date of Exam: 05/19/16 Exam# [id number] Ordering Dr: Carrington Brown DO CLINICAL: 55-year-old [...] at 22:51 EDT Tel , Service support [phone], CC: Martha Brown DO Turf Keeper: Signed 12-May-2016 Liver Result: Comments: See Note; NOTES: [facility] Imaging Services [address] [place] [address] Vernadana 4d Liver MR#: [id number] Acct: [id number] Name: TITA LAW Rep #: [id number] : 1960 F 55 From: Barrera Galeana MD PCP: Martha Brown DO Status: REG CLI Study: Liver Date of Exam: 05/12/16 Exam# [id number] Ordering Dr: Martha Brown DO STUDY: ABDOMINAL [...] Barrera Galeana MD at 11:28 EDT Tel [phone], Service anthony pport [phone], CC: Martha Brown DO Turf Keeper: Signed 20-Apr-2016 NCS and/or EMG Patient Result: Comments: See Note; NOTES: [facility] Pulmonary Services/Neurology [address] [place] [address] NCS and/or EMG Patient MR#: [id number] Acct: [id number] Name: TITA LAW Rep #: [id number] : 1960 55 From: Pardeep Read MD Referring Dr: Eusebio Braswell MD Status: REG I Ordering Dr: Eusebio Braswell MD Date: 04/20/16 Location: [facility] Sex: F C DATE OF SERVICE: 2016 [...] nerve. Pardeep Read MD T: NTS JOB: [id number] 04/20/16 1556 <Electronically signed by Pardeep Read MD> Date Pardeep Read MD CC: Martha Brown DO; Pardeep Read MD; Eusebio Braswell MD Date Dictated: 04/20/16 1107 Date Transcribed: 04/20/161106 Turf Keeper: Signed 15-Mar-2016 Fluoro Guided Lumbar Puncture Result: Comments: See Note; NOTES: [facility] Imaging Services [address] [place] [address] Verdana 4d Fluoro Guided Lumbar Puncture MR#: [id number] Acct: [id number] Name: Niecy LAW Rep #: [id number] : 1960 F 55 From: Barrera Galeana MD PCP: Martha Brown DO Status: REG CLI Study: Fluoro Guided Lumbar Puncture Date of Exam: 03/15/16 Exam# [id number] Ordering Dr: Pepper Benoit PROCEDURE: Fluoroscopic guided [...] procedure were explained to the patient. [facility] risks of bleeding, infection, and neurovascular [...] Barrera Galeana MD at 10:09 EST Tel [phone], Service support [phone], CC: Pepper Barr NP; Martha Brown DO Turf Keeper: Signed 11-Mar-2016 Thyroid Result: Comments: See Note; NOTES: [facility] Imaging Services [address] [place] [address] Verdana 4d Thyroid MR#: [id number] Acct: [id number] Name: TITA LAW Rep #: [id number] : 1960 F 55 From: Brarera Galeana MD PCP: Martha Brown DO Status: REG CLI Study: Thyroid Date of Exam: 03/11/16 Exam# [id number] Ordering Dr: Martha Brown DO STUDY: THYROID [...] Barrera Galeana MD at 15:57 EST Tel [phone], Service support [phone], CC: Martha Brown DO Turf Keeper: Signed 10-Feb-2016 Brain W/WO Contrast Result: Comments: See Note; NOTES: [facility] Imaging Services [address] [place] [address] Verdaligia 4d Brain W/WO Contrast MR#: [id number] Acct: [id number] Name: TITA LAW Rep #: [id number] : 1960 F 55 From: Madeleine Villar MD PCP: Martha Brown DO Status: REG CLI Study: Brain W/WO Contrast Date of Exam: 02/10/16 Exam# [id number] Ordering Dr: Martha Brown DO STUDY: MRI [...] MD at 23:33 EST , Service support [phone], CC: Martha Brown DO Turf Keeper: Signed 25-Jan-2016 Cerv Spine 2 or 3 Views Result: Comments: See Note; NOTES: [facility] Imaging Services [address] [place] [address] Verdana 4d Cerv Spine 2 or 3 Views MR#: [id number] Acct: [id number] Name: TITA LAW Rep #: [id number] : 1960 F 55 From: Julio Cesar Soto MD PCP: Martha Brown DO Status: REG CLI Study: Cerv Spine 2 or 3 Views Date of Exam: 01/25/16 Exam# [id number] Ordering Dr: Matt Wilburn STUDY : X-RAY [...] FACR at 16:52 EST , Service support [phone], CC: MATT WILBURN; Martha Brown DO Turf Keeper: Signed 25-Jan-2016 Spine Cervical (Routine) Result: Comments: See Note; NOTES: [facility] Imaging Services [address] [place] [address] Vernadaligia 4d Spine Cervical (Routine) MR#: [id number] Acct: [id number] Name: BESSY LAW Rep #: [id number] : 1960 F 55 From: Julio Cesar Soto MD PCP: Martha Brown DO Status: REG CLI Study: Spine Cervical (Routine) Date of Exam: 01/25/16 Exam# [id number] Ordering Dr: Matt Wilburn DY: MRI CERVICAL [...] FACR at 15:55 EST , Service support [phone], CC: MATT WILBURN; Martha Brown DO Turf Keeper: Signed 31-Dec-2015 L/S Spine Bending Flex/Ext Result: Comments: See Note; NOTES: [facility] Imaging Services [address] [place] [address] Verdana 4d L/S Spine Bending Flex/Ext MR#: [id number] Acct: [id number] Name: GINNY LAW Rep #: [id number] : 1960 F 55 From: Barrera Galeana MD PCP: Martha Brown DO Status: REG CLI Study: L/S Spine Bending Flex/Ext Date of Exam: 12/31/15 Exam# [id number] Ordering Dr: Carrington Wilburn STUDY: X-RAY - [...] Galeana MD 4 at 11:17 EDT Tel [phone], Service support [phone], CC: MATT WILBURN; Martha Brown DO Turf Keeper: Signed 24-Dec-2015 Chest 1 View (Portable) Result: Comments: See Note; NOTES: [facility] Imaging Services [address] [place] [address] Verdana 4d Chest 1 View (Portable) MR#: [id number] Acct: [id number] Name: BESSY LAW Rep #: [id number] : 1960 F 55 From: Barrera Galeana MD PCP: Martha Brown DO Status: REG ER Study: Chest 1 View (Portable) Date of Exam: 12/24/15 Exam# [id number] Ordering Dr: Rashad Acosta MD STUDY: X-RAY [...] Barrera Galeana MD at 15:13 EDT Tel [phone], Service support [phone], CC: Martha Brown DO; Rashad Acosta MD Turf Keeper: Signed 10-Oct-2015 Spine Lumbar without Contrast Result: Comments: See Note; NOTES: [facility] Imaging Services [address] [place] [address] Agnes 4d Spine Lumbar without Contrast MR#: [id number] Acct: [id number] Name: TITA LAW Rep #: [id number] : 1960 F 55 From: Quentin Inman DO PCP: Martha Brown DO Status: REG CLI Study: Spine Lumbar without Contrast Date of Exam: 10/10/15 Exam# [id number] Ordering Dr: Ruben Wilburn STUDY: CT LUMBAR [...] at 16:29 EDT Tel , Service support [phone], CC: MATT WILBURN; Martha Brown DO Turf Keeper: Signed 07-Oct-2015 Spine Thoracic (Routine) Result: Comments: See Note; NOTES: [facility] Imaging Services [address] [place] [address] Verdana 4d Spine Thoracic (Routine) MR#: [id number] Acct: [id number] Name: SARINA LAW IS Rep #: [id number] : 1960 F 55 From: Basil Culver MD PCP: Martha Brown DO Status: REG CLI Study: Spine Thoracic (Routine) Date of Exam: 10/07/15 Exam# [id number] Ordering Dr: MANDEEP DILLON MD STUDY: MRI [...] at 16:32 EDT Tel , Service support [phone], CC: Martha Brwon DO; MANDEEP DILLON MD Turf Keeper: Signed 29-Sep-2015 ELECTROCARDIOGRAM, COMPLETE (ECG) (11738) Comments: ekg showed normal sinus rhythym, normal axis, no acute st/t wave changes Result: [MEASUREMENTS ANALYSIS] Date of Test: 09/29/2015 10:02:56; Heart Rate: 70; OK Interval: 158; QRS: 90; QT Interval: 396; Corrected QT Interval (QTc): 413; P Wave Clutier: 73; QRS Wave Clutier: 71; T Wave Clutier: 67; Blood Pressure: 110/70 [ECG DIAGNOSTIC STATEMENTS] Date of Test: 09/29/2015 10:02:56; Summary: Sinus Rhythm WITHIN NORMAL LIMITS 03-Sep-2015 Spine Lumbar (Routine) Result: Comments: See Note; NOTES: [facility] Imaging Services [address] [place] [address] Verdana 4d Spine Lumbar (Routine) MR#: [id number] Acct: [id number] Name: GUILLE INFANTETITA Rep #: [id number] : 1960 F 55 From: Julio Cesar Soto MD PCP: Martha Brown DO Status: REG CLI Study: Spine Lumbar (Routine) Date of Exam: 09/03/15 Exam# [id number] Ordering Dr: Martha Brown DO STUDY: MRI [...] FACR at 11:54 EDT , Service support [phone], CC: Martha Brown DO Turf Keeper: Signed 27-Aug-2015 Bilat Scrn Digital AND CAD Result: Comments: See Note; NOTES: [facility] Imaging Services [address] [place] [address] Verdana 4d Bilat Scrn Digital AND CAD MR#: [id number] Acct: [id number] Name: TITA LAW Rep #: [id number] : 1960 F 55 From: Barrera Galeana MD PCP: Martha Brown DO Status: REG CLI Study: Cara Huntn Digital AND CAD Date of Exam: 08/27/15 Exam# [id number] Orderi ng Dr: Martha Brown DO MAMMOGRAPHY [...] delay biopsy of a clinically suspicious abnormality. [id number] Electronically Signed: Barrera Galeana MD a t 8:51 EDT Tel [phone], Service support [phone], CC: Martha Brown DO Turf Keeper: Signed 27-Aug-2015 Dexa Bone Density Study (HP) Result: Comments: See Note; NOTES: [facility] Imaging Services [address] [place] [address] Verdana 4d Dexa Bone Density Study (HP) MR#: [id number] Acct: [id number] Name : TITA LAW Rep #: [id number] : 1960 F 55 From: Barrera Galeana MD PCP: Martha Brown DO Status: [facility] Study: Dexa Bone Density Study (HP) Date of Exam: 08/27/15 Exam# [id number] Or dering Dr: Martha Brown DO STUDY: [...] Barrera Galeana MD at 14:42 EDT Tel [phone], Service support [phone], CC: Martha Brown DO Turf Keeper: Signed 27-Aug-2015 Hip 2-3 Views with Pelvis Result: Comments: See Note; NOTES: [facility] Imaging Services [address] [place] [address] Verdana 4d Hip 2-3 Views with Pelvis MR#: [id number] Acct: [id number] Name: TITA AMBROCIO Rep #: [id number] : 1960 F 55 From: Murray Palma MD PCP: Martha Brown DO Status: REG CLI Study: Hip 2-3 Views with Pelvis Date of Exam: 08/27/15 Exam# [id number] Ordering Dr: Martha Johnson DO STUDY: X-RAY [...] MD at 16:31 EDT , Service support [phone], RAD/Hip 2-3 Views with Pelvis IMPRESSION: Osteopenia with post-surgical changes in the lower lumbar spine. No acute pathology identified. Electr onically Signed: Murray Palma MD at 16:31 EDT , Service support [phone], CC: Martha Brown DO Turf Keeper: Signed 09-Feb-2015 Chest PA and Lateral Result: Comments: See Note; NOTES: [facility] Imaging Services [address] [place] [address] Verdana 4d Chest PA and Lateral MR#: [id number] Acct: [id number] Name: TITA MCLEAN Rep #: [id number] : 1960 F 54 From: Barrera Galeana MD PCP: Martha Brown DO Status: REG CLI Study: Chest PA and Lateral Date of Exam: 02/09/15 Exam# [id number] Ordering Dr: Abby Rivera STUDY: X-RAY CHEST [...] Barrera Galeana MD at 15:21 EST Tel [phone], Service support [phone], RAD/Chest PA and Lateral IMPRESSION: Hyperinflation. No acute abnormality is seen. Electronically Signed: Barrera Galeana MD at 15:21 EST Tel [phone], Service support [phone], CC: Abby Rivera; Martha Brown DO Turf Keeper: Signed 30-Jun-2014 Bilat Scrn Digital AND CAD Result: Comments: See Note; NOTES: [facility] Imaging Services [address] [place] [address] Breast Imaging Report MR#: [id number] Acct: [id number] Name: MANDY LAWLIS Rep #: [id number] : 1960 F 53 From: Barrera Galeana MD PCP: Martha Brown DO Status: REG CLI Study: Bilat Scrn Digital AND CAD Date of Exam: 06/30/14 Exam# [id number] Ordering Dr: Martha Brown DO MAMMOGRAPHY - [...] Galeana MD at 9 :06 EDT Tel [phone], Service support [phone], CC: Martha Brown DO Turf Keeper: Signed 07-Oct-2013 Extremity Lower WITH Contrast Result: Comments: See Note; NOTES: [facility] Imaging Services [address] [place] [address] CAT Scan Report MR#: [id number] Acct: [id number] Name: TITA LAW Rep #: [id number] : 1960 F 53 From: Barrera Galeana MD PCP: Martha Brown DO Status: REG CLI Study: Extremity Lower WITH Contrast Date of Exam: 10/07/13 Exam# [id number] Ordering Dr: Martha Brown DO STUDY: CT [...] Barrera Galeana MD at 15:02 EDT Tel [phone], Service support , CC: Martha Brown DO Turf Keeper: Signed 25-Sep-2013 Forearm 2 Views Result: Comments: See Note; NOTES: [facility] Imaging Services [address] [place] [address] Radiology Report MR#: [id number] Acct: [id number] Name: ANITITA Rep #: [id number] : 1960 F 53 From: Barrera Galeana MD PCP: Martha Brown DO Status: REG CLI Study: Forearm 2 Views Date of Exam: 09/25/13 Exam# [id number] Ordering Dr: Martha Brown DO STUDY: X-RAY [...] Barrera Galeana MD at 16:16 EDT Tel [phone], Service support [phone], RAD/Forearm 2 Views IMPRESSION: Normal x-ray examination of the radius and ulna. Electronically Signed: Barrera Galeana MD at 16:16 EDT Tel [phone], Service support [phone], CC: Martha Brown DO Turf Keeper: Signed 25-Sep-2013 Hip min 2 Views Result: Comments: See Note; NOTES: [facility] Imaging Services [address] [place] [address] Radiology Report MR#: [id number] Acct: [id number] Name: ANITITA INFANTE Rep #: [id number] : 1960 F 53 From: Barrera Galeana MD PCP: Martha Brown DO Status: REG CLI Study: Hip min 2 Views Date of Exam: 09/25/13 Exam# [id number] Ordering Dr: Martha Brown DO STUDY: X-RAY [...] Barrera Galeana MD at 16:18 EDT Tel [phone], Service support [phone], Fax CC: Martha Brown DO Turf Keeper: Signed 25-Sep-2013 Pelvis 1 or 2 Views Result: Comments: See Note; NOTES: [facility] Imaging Services [address] [place] [address] Radiology Report MR#: [id number] Acct: [id number] Name: TITA LAW Rep #: [id number] : 1960 F 53 From: Khang Braun MD PCP: Martha Brown DO Status: REG CLI Study: Pelvis 1 or 2 Views Date of Exam: 09/25/13 Exam# [id number] Ordering Dr: Martha Brown DO STUDY: X-RAY [...] MD at 16:24 EDT , Service support [phone], 0063 RAD/Pelvis 1 or 2 Views IMPRESSION: Normal x-ray examination of the pelvis. Electronically Signed: Khang Braun MD at 16:24 EDT , Service support [phone], CC: Martha Brown DO Turf Keeper: Signed 25-Sep-2013 Thoracic Spine 3 Views Result: Comments: See Note; NOTES: [facility] Imaging Services [address] [place] [address] Radiology Report MR#: [id number] Acct: [id number] Name: TITA LAW Rep #: [id number] : 1960 F 53 From: Barrera Galeana MD PCP: Martha Brown DO Status: REG CLI Study: Thoracic Spine 3 Views Date of Exam: 09/25/13 Exam# [id number] Ordering Dr: Martha Brown DO STUDY: X-RAY [...] Ac Galeana MD at 16:19 EDT Tel [phone], Service support [phone], RAD/Thoracic Spine 3 Views IMPRESSION: Degenerative changes. Elect ronically Signed: Barrera Galeana MD at 16:19 EDT Tel [phone], Service support [phone], CC: Martha Brown DO Turf Keeper: Signed 24-Jun-2013 Bilat Scrn Digital & CAD Result: Comments: See Note; NOTES: [facility] Imaging Services [address] [place] [address] Breast Imaging Report MR#: [id number] Acct: [id number] Name: TITA LAW Rep #: [id number] : 1960 F 52 From: Barrera Galeana MD PCP: Martha Brown DO Status: REG CLI Exam# [id number] Ordering Dr: Shahla Myers MD MAMMOGRAPHY - [...] Barrera Galeana MD at 9:32 EDT Tel [phone], Service support [phone], F ax [phone] CC: Martha Brown DO; Shahla Myers MD Turf Keeper: Signed 14-May-2013 Chest PA and Lateral Result: Comments: See Note; NOTES: [facility] Imaging Services [address] [place] [address] Radiology Report MR#: [id number] Acct: [id number] Name: TITA LAW Rep #: [id number] : 1960 F 52 From: Barrera Galeana MD PCP: Martha Brown DO Status: REG CLI Study: Chest PA and Lateral Date of Exam: 05/14/13 Exam# [id number] Ordering Dr: Martha Brown DO STUDY: X [...] M.D. at 14:47 EDT , Service support [phone], CC: Martha Brown DO Turf Keeper: Signed Family History Unknown Family Member Name [...] kg/m2 Body Surface Area Calculated 1.8 m2 60-Aju-525658:15 Comments: kysdbqeutd198/72, 60sitting 98/56 67standing 94/58, 78 Temperature 97.5 [...] Value Details :56 CBC W/Diff, Automated Comments: [facility] [address] [place], [place], [address] Absolute Lymph 1.33 {X10_3/ul} (Normal) Range: 0.83-4.51 [...] 4.2-5.4 WBC 14.0 K/mm3 (Abnormal) Range: 4.4-11.0 36-Ojd-530898:56 Comprehensive Metabolic Profil Comments: [facility] [address] [place], [place], [address] GAP 9 (Normal) Range: 5-15 CO2 26.0 [...] Comments: Please note revised GLUCOSE reference range fcbtykjph02/02/2018. 01-Nhb-914788:01 Urinalysis, Office (47914) UA - LEUKOCYTE ESTERASE Large (Normal) UA - NITRITE Positive (Normal) URINE UROBILINGN SPRING TIMED 2 mg/dL (Normal) UA - PROTEIN 300 mg/dL (Normal) UA - PH 7 (Normal) UA - BLOOD Hemolyzed Large (Normal) UA - SPECIFIC GRAVITY 1.020 (Normal) UA - KETONES 15 mg/dL (Abnormal) UA - BILIRUBIN Large (Normal) UA - GLUCOSE Negative (Normal) 4-Kwc-290603:45 Culture, Urine Comments: [facility] [address] [place], [address] CUUR See Note (Normal) Comments: Urine CultureORGANISM [...] $ >=320 R(NF) indicates non-formulary drug at [facility]. Approval by Infectious Disease Specialist required before non-formulary drugs may be ordered and/or dispensed. 7-Sfo-270926:45 Urinalysis, Complete Comments: How was Urine Obtained? CLEAN [facility] [address] [place], [address] CA OX CRYSTAL 1+ {/hpf} (Normal) MUCUS, [...] (Normal) CLARITY Cloudy (Normal) COLOR Yellow (Normal) 07-Okv-593386:49 CBC (AUTO) (10376) Comments: PATIENT NOT FASTINGPERFORMED BY: [facility] Bfhkxu2970 [facility] [id number] Platelets 303 {x10E3/uL} (Normal) Range: 150-379 RDW 14.5 % (Normal) Range: 12.3-15.4 MCHC 33.9 g/dL (Normal) Range: 31.5-35.7 MCH 32.4 pg (Normal) Range: 26.6-33.0 MCV 96 fL (Normal) Range: 79-97 Hematocrit 37.5 % (Normal) Range: 34.0-46.6 Hemoglobin 12.7 g/dL (Normal) Range: 11.1-15.9 RBC 3.92 {x10E6/uL} (Normal) Range: 3.77-5.28 WBC 7.9 {x10E3/uL} (Normal) Range: 3.4-10.8 86-Qtw-667419:49 MICROALBUMIN: CREATININE RATIO Comments: PATIENT NOT FASTINGPERFORMED BY: [facility] [id number] (40587) AND (43413) Alb/Creat Ratio 4.1 {mg/g_creat} (Normal) Range: 0.0-30.0 Comments: Normal: 0.0 - 30.0 Albuminuria: 31.0 - 300.0 Clinical albuminuria: >300.0 Albumin, Urine 6.7 ug/mL (Normal) Creatinine, Urine 161.5 mg/dL (Normal) 21-Bwv-209632:49 METABOLIC PANEL, COMPREHENSIVE Comments: PATIENT NOT FASTINGPERFORMED BY: [facility] [id number]; appt 12/05 (94269) ALT (SGPT) 14 [iU]/L (Normal) Range: 0-32 [...] 6-24 Glucose 94 mg/dL (Normal) Range: 65-99 5-Vsp-833841:22 CBC W/Diff, Automated Comments: [facility] [address] [place], [address] Absolute Lymph 1.79 {X10_3/ul} (Normal) Range: 0.83-4.51 [...] 4.2-5.4 WBC 6.3 K/mm3 (Normal) Range: 4.4-11.0 1-Yuy-754646:22 Comprehensive Metabolic Profil Comments: [facility] [address] [place], [place], [address] GAP 8 (Normal) Range: 5-15 CO2 25.0 [...] Comments: Please note revised GLUCOSE reference range avocbiewp71/02/2018. 1-Kar-360023:22 CRP Comments: [facility] [address] [place], [address] C-REACTIVE PROT < 2.90 mg/L (Normal) Range: 0.0-3.0 Comments: C-Reactive Protein (CRP) provides useful information for thediagnosis, therapy and monitoring of inflammatory processesand associated diseases. For the evaluation of Relative Riskfor Cardiovascular Dise ase, a High Sensitivity CRP (HSCRP)should be ordered. 9-Ywx-175883:22 Erythrocyte Sed Rate Comments: [facility] [address] [place], [address] SED RATE 3 mm/h (Normal) Range: 0-30 1-Qjs-075296:22 Hemoglobin A1c Comments: [facility] [address] [place], [address] HGB A1C 5.7 % (Normal) Range: 4.2-6.3 9-Hvr-667736:22 Lipid Profile Comments: [place] [address] [place], [address] VLDL 21 mg/dL (Normal) Range: 5-40 LDL [...] 200-240 mg/dL Borderline >240 mg/dL High Risk 2-Dfn-717075:22 Vitamin D,25 Hydroxy Comments: [facility] [address] [place], [address] Vitamin D 25-OH 36.0 ng/mL (Normal) Range: 29.95-100.01 Comments: Vitamin D 25(OH) Status Range Deficiency <20 ng/mL (50nmol/L) Insuffciency 20 - 30 ng/mL (50 - 75 nmol/L) Sufficiency 30 - 100 ng/mL (75 - 250 nmol/L) Toxicity >100 ng/mL (>250 nmol/L) 05-Vyr-846827:37 CBC W/Diff, Automated Comments: [facility] [address] [place], [place], [address] ; appt 5/2 Absolute Lymph 2.05 {X10_3/ul} [...] 4.2-5.4 WBC 5.5 K/mm3 (Normal) Range: 4.4-11.0 43-Dcm-498488:37 Comprehensive Metabolic Profil Comments: [facility] Aaxcnv[address]wd0517 [facility]. [place], [place], [address] GAP 8 (Normal) Range: 5-15 CO2 24.0 [...] Comments: Please note revised GLUCOSE reference range ptwuyhdak81/02/2018. 17-Wok-459819:37 Hemoglobin A1c Comments: [facility] [address] [facility] [place], [address] HGB A1C 5.9 % (Normal) Range: 4.2-6.3 39-Syg-964782:37 Lipid Profile Comments: [facility] [address] [place], [place], [address] VLDL 16 mg/dL (Normal) Range: 5-40 LDL [...] 200-240 mg/dL Borderline >240 mg/dL High Risk 10-Hen-370678:06 METABOLIC PANEL, COMPREHENSIVE Comments: PATIENT NOT FASTINGPERFORMED BY: [facility] System[facility]wgpjh6155 [facility] [id number] (22978) ALT (SGPT) 19 [iU]/L (Normal) Range: 0-32 [...] Glucose, Serum 84 mg/dL (Normal) Range: 65-99 72-Ipt-255523:26 CBC W/Diff, Automated Comments: [facility] [address] [place], [place], [address] ; patient coming in today Absolute Lymph [...] 4.2-5.4 WBC 10.1 K/mm3 (Normal) Range: 4.4-11.0 61-Ttr-246322:26 EBV Acute Prof IgG / IgM Comments: [facility] (refer to report for specific site)refer to report for address and phone number INTERPRETATION Comment (Normal) Comments: EBV Interpretation ChartInterpretation EBV-IgM EA(D)-IgG VCA-IgG EBNA-IgGEBV Seronegative - - - -Early Phase + - - -Acute Primary + +or- + -InfectionConvalescence/Past - +or- + +InfectionReactivated +or- + + +Infection + Antibody Present - Antibody Ab sentPerformed at: [facility] [id number] Director: Sean Daniel PhD, Phone: [phone] EB-NAg [id number] > 600.0 U/mL (Abnormal) Range: 0.0-17.9 Comments: Negative <18.0 Equivocal 18.0 - 21.9 Positive >21.9 EB-VCA EnW70937 226.0 U/mL (Abnormal) Range: 0.0-17.9 Comments: Negative <18.0 Equivocal 18.0 - 21.9 Positive >21.9 EB-EA IgG 86921 49.1 U/mL (Abnormal) Range: 0.0-8.9 Comments: Hepatitis A, Hepatitis C and HIV antibodies may cross-reactwith this assay. Negative < 9.0 Equivocal 9.0 - 10.9 Positive >10.9 EB-VCA ViO05420 < 36.0 U/mL (Normal) Range: 0.0-35.9 Comments: Negative <36.0 Equivocal 36.0 - 43.9 Positive >43.9 84-Ewi-478351:37 Basic Metabolic Profile (BMP) Comments: [facility] [address] [place], [address] GAP 8 (Normal) Range: 5-15 CO2 23.0 [...] A.D.A. criteria.Please note revised GLUCOSE reference range gubjefrlc01/02/2018. 07-Mrf-880700:37 CBC W/Diff, Automated Comments: [facility] [address] [place], [address] Absolute Lymph 2.00 {X10_3/ul} (Normal) Range: 0.83-4.51 [...] 4.2-5.4 WBC 8.8 K/mm3 (Normal) Range: 4.4-11.0 83-Kjv-944342:30 CBC With Differential/Platelet Comments: PERFORMED BY: [facility] SystemCxifiq0097 [facility] [id number] Information: MDVIP PATIENT - NURSE Immature Grans [...] 3.77-5.28 WBC 6.8 {x10E3/uL} (Normal) Range: 3.4-10.8 72-Wyl-783949:30 Comp. Metabolic Panel (14) Comments: PERFORMED BY: [facility] SystemOgqtey7683 [facility] [id number]; can review at upcoming appt ALT (SGPT) [...] Glucose, Serum 98 mg/dL (Normal) Range: 65-99 61-Egp-631682:21 TSH (24338) Comments: PATIENT NOT FASTINGPERFORMED BY: [facility] CenterZmoizp9034 [facility] [id number] TSH 2.830 {uIU/mL} (Normal) Range: 0.450-4.500 :21 T3, FREE (TRIDOTHYRONINE) (66424) Comments: PATIENT NOT FASTINGPERFORMED BY: [facility]onAc[facility]Care [facility] SystemQybwxe6634 [facility] [id number] Triiodothyronine,Free,Serum 2.6 pg/mL (Normal) Range: 2.0-4.4 :21 T4, FREE (THYROXINE) (84581) Comments: PATIENT NOT FASTINGPERFORMED BY: [facility]onAcuteCare [facility] SystemRffnvp3719 [facility] [id number] T4,Free(Direct) 1.12 ng/dL (Normal) Range: 0.82-1.77 :32 CBC W/Diff, Automated Comments: [facility] [address] [place], [address] Absolute Lymph 3.84 {X10_3/ul} (Normal) [...] Range: 4.4-11.0 :32 Comprehensive Metabolic Profil Comments: [facility] [address] [place], [place], [address] ; non-emergent till next weeks apt GAP [...] (Normal) Range: 70-110 :32 Hemoglobin A1c Comments: [facility] [address]1194 [facility]. [place], [place], [address] HGB A1C 6.2 % (Normal) Range: 4.2-6.3 :32 Lipid Profile Comments: [facility] Lhfbprmuni9421 [facility]. [place], [place], [address] VLDL 19 mg/dL (Normal) Range: 5-40 LDL [...] High Risk :36 CBC W/Diff, Automated Comments: [facility] [address] [place], [place], [address] Absolute Lymph 2.01 {X10_3/ul} (Normal) Range: 0.83-4.51 [...] Range: 4.4-11.0 :36 Comprehensive Metabolic Profil Comments: [facility] [address] [place], [address] GAP 10 (Normal) Range: 5-15 [...] mg/dL (Normal) Range: 70-110 :36 CRP Comments: [facility] [address] [place], [place], [address] C-REACTIVE PROT < 2.90 mg/L (Normal) Range: 0.0-3.0 Comments: C-Reactive Protein (CRP) provides useful information for thediagnosis, therapy and monitoring of inflammatory processesand associated diseases. For the evaluation of Relative Riskfor Cardiovascular Dise ase, a High Sensitivity CRP (HSCRP)should be ordered. :36 Culture, Urine Comments: [facility] [address] [place], [place], [address] CUUR See Note (Normal) Comments: Urine CultureCOLONY COUNT 400 CFU/ML Below infection level. ORGANISM 1: GNR Poss Pseudomonas spColony Count <1000 :36 Erythrocyte Sed Rate Comments: [place] [address] [place], [address] SED RATE 5 mm/h (Normal) Range: 0-30 :36 Free T3 Comments: [address] [place], [place], [address] FREE T3 2.4 pg/mL (Normal) Range: 2.18-3.98 :36 Rheumatoid Factor Comments: [address] [place], [address] RHEUMATOID FAC < 10.0 {IU/mL} (Normal) :36 T4 Free Direct Comments: [address] [place], [place], [address] T4 FREE DIRECT 1.09 ng/dL (Normal) Range: 0.76-1.46 :36 Thyroid Stim Hormone (TSH) Comments: [address] [place], [address] TSH 0.08 {uIU/mL} (Abnormal) Range: 0.358-3.74 :36 Uric Acid Comments: [address], [place], [address] URIC 3.6 mg/dL (Normal) Range: 2.6-6.0 Comments: The drugs N-Acetylcysteine and Metamizole may falsely deressthis assay. :30 URINE ARELY CULTURE-SPRING COL Comments: PERFORMED BY: [facility] SystemWujrvy9322 [facility] [id number] Information: SRC:UR COUNT (92877) Result 1 MUG (Normal) Comments: Mixed urogenital flora1,000 Colonies/mL Urine Culture,Comprehensive Final report (Normal) 13-Wih-227051:20 Urinalysis, Office (63387) UA - LEUKOCYTE ESTERASE Negative (Normal) UA - NITRITE Negative (Normal) URINE UROBILINGN SPRING TIMED Normal mg/dL (Normal) UA - PROTEIN Negative mg/dL (Normal) UA - PH 7 (Normal) UA - BLOOD Negative (Normal) UA - SPECIFIC GRAVITY 1.015 (Normal) UA - KETONES Negative mg/dL (Normal) UA - BILIRUBIN Negative (Normal) UA - GLUCOSE Negative (Normal) 0-Kfo-701535:52 ARELY CULTURE-OTHER (06147) Comments: PATIENT NOT FASTINGPERFORMED BY: [facility] [id number] Information: THROAT SRC:TH Result 1 RRF (Normal) Comments: Routine respiratory kaylene Upper Respiratory Culture Final report (Normal) 6-Rid-677193:07 Rapid Strep Test, Office (87915) Rapid Strep Test, Negative (Normal) Office 91-Ksg-245656:2 Magnesium, Serum 2.0 mg/dL (Normal) Comments: PATIENT NOT FASTINGPERFORMED BY: [facility] [address] [id number] Information: SRC:UC 1 Range: 1.6-2.3 64-Heg-356833:21 Microscopic Examination Comments: PATIENT NOT FASTINGPERFORMED BY: [facility] [address] [place] [address] [id number] BY: [facility] [id number] Bacteria None seen (Normal) Epithelial Cells (non None seen {/hpf} Range: 0 - 10 renal) (Normal) RBC 0-2 {/hpf} Range: 0 - 2 (Normal) WBC 0-5 {/hpf} Range: 0 - 5 (Normal) Sodium, Urine <20 mmol/L Comments: PATIENT NOT FASTINGPERFORMED BY: [facility] [address] [id number] BY: JEDI MIND[address] [id number] 4:21 (Normal) Written Authorization WAR (Normal) Comments: PATIENT NOT FASTINGPERFORMED BY: [facility] Lqufst9067 [facility] [id number] 4:21 Comments: Written Authorization Received.Authorization received from YURIY VERNON LPN [id number] by Tg Stewart 12-Rnj-316275:21 URINE ARELY CULTURE-IDENTIFICATN Comments: PATIENT NOT FASTINGPERFORMED BY: [facility]6370 [facility] [id number] BY: [address] [id number] (11954) Result 1 NG36 (Normal) Comments: No growth in 36 - 48 hours. Urine Culture,Comprehensive Final report (Normal) 96-Wbn-623608:21 URINALYSIS, W/ MICRO Comments: PATIENT NOT FASTINGPERFORMED BY: [facility]6370 [facility] [id number] BY: [address] [id number] Information: SRC: (78618) Microscopic Examination See below: (Normal) Comments: Microscopic was indicated and was performed. Microscopic Examination MICRON (Normal) Comments: Microscopic follows if indicated. Nitrite, Urine Negative (Normal) Urobilinogen,Semi-Qn 0.2 mg/dL (Normal) Range: 0.2-1.0 Bilirubin Negative (Normal) Occult Blood Negative (Normal) Ketones Negative (Normal) Glucose Negative (Normal) Protein Negative (Normal) WBC Esterase Negative (Normal) Appearance Clear (Normal) Urine-Color Yellow (Normal) pH 7.0 (Normal) Range: 5.0-7.5 Specific [place] 1.007 (Normal) Range: 1.005-1.030 32-Ely-535456:21 OSMOLALITY URINE (62256) Comments: PATIENT NOT FASTINGPERFORMED BY: [place] [address]70 [facility] [id number] BY: [address] [id number] Osmolality, Urine 98 {mOsmol/kg} (Normal) Comments: 24 hr : 300 - 900 Random: 50 - 1400 After 12hr fluid restriction: >850 27-Rwx-074692:21 OSMOLALITY BLOOD (64152) Comments: PATIENT NOT FASTINGPERFORMED BY: [facility] Bocnqq7179 [facility] [id number] BY: [facility] [place] [address]37 [facility] [id number] Osmolality 265 {mOsmol/kg} (Abnormal) Range: 275-295 99-Oln-405001:21 SODIUM SERUM (24454) Comments: PATIENT NOT FASTINGPERFORMED BY: [facility] Knjfqh9975 [facility] [id number] BY: [facility] [id number] Sodium, Serum 132 mmol/L (Abnormal) Range: 134-144 29-Vll-317517:15 Comprehensive Metabolic Profil Comments: [facility] [address] [place], [address] GAP 9 (Normal) Range: 5-15 CO2 25.0 [...] 7-18 GLU 86 mg/dL (Normal) Range: 70-110 32-Tys-221910:15 Free T3 Comments: [facility] [address] [place], [address] FREE T3 2.3 pg/mL (Normal) Range: 2.18-3.98 09-Abq-232414:15 Phosphorus Comments: [facility] [address] [place], [address] PHOS 2.9 mg/dL (Normal) Range: 2.5-4.9 94-Mmc-911286:15 PTH,INTACT Comments: [facility] [address] [place], [address] PTH,Intact 35 pg/mL (Normal) Range: 14-72 07-Tba-026645:15 T4 Free Direct Comments: [facility] [address] [place], [id number] T4 FREE DIRECT 1.06 ng/dL (Normal) Range: 0.76-1.46 [id number]:15 Thyroid Stim Hormone (TSH) Comments: [facility] [address] [place], [id number] TSH 5.47 {uIU/mL} (Abnormal) Range: 0.358-3.74 [id number]:15 Vitamin D,25 Hydroxy Comments: [facility] [address] [place], [address] Vitamin D 25-OH 38.0 ng/mL (Normal) Comments: Vitamin D 25(OH) Status Range Deficiency <20 ng/mL (50nmol/L) Insuffciency 20 - 30 ng/mL (50 - 75 nmol/L) Sufficiency 30 - 100 ng/mL (75 - 250 nmol/L) Toxicity >100 ng/mL (>250 nmol/L) 0-Rqs-778915:31 Comprehensive Metabolic Profil Comments: [facility] [address] [place], [place], [address] GAP 11 (Normal) Range: 5-15 CO2 24.0 [...] 7-18 GLU 96 mg/dL (Normal) Range: 70-110 4-Agv-108928:31 Free T3 Comments: [facility] [address] [place], [address] FREE T3 2.3 pg/mL (Normal) Range: 2.18-3.98 3-Chz-046453:31 Hemoglobin A1c Comments: [facility] [address] [place], [address] HGB A1C 5.7 % (Normal) Range: 4.2-6.3 7-Ofa-279450:31 Lipid Profile Comments: [facility] [address] [place], [address] VLDL 19 mg/dL (Normal) Range: [...] 200-240 mg/dL Borderline >240 mg/dL High Risk 8-Pql-484279:31 Microalb:Creat Ratio,Random UR Comments: [facility] [address] [place], [address] MALB:CREAT 5.4 {mg/g_CRE} (Normal) MICROALBUMIN,UR 6.7 mg/L (Normal) UR CREAT 124.00 mg/dL (Normal) 6-Atw-727690:31 T4 Free Direct Comments: [facility] [address] [place], [address] T4 FREE DIRECT 0.70 ng/dL (Abnormal) Range: 0.76-1.46 8-Qnp-775820:31 Thyroid Stim Hormone (TSH) Comments: [facility] [address] [place], [address] TSH 4.87 {uIU/mL} (Abnormal) Range: 0.358-3.74 0-Hpi-253814:49 ACHR Valve Maker AB, Blocking Comments: [facility] (refer to report for specific site)refer to report for address and phone number ACHR REC 23093 19 % (Normal) Range: 0-25 Comments: Negative: 0 - 25 Borderline: 26 - 30 Positive: >30Results for this test are for research purposesonly by the assay's alberta rodriguez. The performancecharacteristics of this product have not beenestablished. Results should not be used as adiagnostic procedure without confirmation of thediagnosis by another medically establishe ddiagnostic product or procedure.Performed at: - [address] [id number] Director: Eusebio Live MD, Phone: [phone] 2-Dmd-237541:49 Lyme Antibodies,W Blot Comments: [facility] (refer to [...] positivity are those recommended byCDC/ASTPHLD. p23=Osp C, q33=wmluudogrMuhf:Sera from individuals with the following may cross [...] Ab Absent (Normal) P93 Ab Absent (Normal) 52-Bji-07520:39 Acid Fast Bact Cult/Sm Comments: [facility] [address] [place], [place], [address] AFBCS See Note Comments: AFB Smear/Fluor TESTING [...] Body Fluid Cell Count+Diff Comments: Specimen Source: [facility] [address]jnx[address] [place], [place], [address] PATH COMM/BF May follow (Normal) BF PMN [...] Body Fluid / CSF Comments: Specimen Source: [facility] [address] [place], [address] CYTOLOGY,BF/CSF SEE PATHOLOGY REPORT Comments: Specimen submitted to Anatomical Pathology Department fortesting. (Normal) :39 CYTOSPIN ON FLUID See Note (Normal) Comments: [facility] [address] [place], [address] Comments: Patient: TITA LAW : 1960 (55/F) Acct Num: [id number] Phys: Pepper Barr NP Unit Num: [id number] Loc: RAD Specimen: [id number] Received: 03/15/16 - 1239 Spec Type: CYSPIN FL TISSUES TISSUES: CYTOLOGY GROSS Received is 3 ml of clear, colorless fluid labeled with the patient's name and and designated per the requisition as CSF. Submitted f or cytology preparation. 03/15/16 TC:4 CPT: 02068 CYTOLOGY STUDY Slides are reviewed. DIAGNOSIS CYTOLOGY Cerebrospinal fluid (cytospins): The specimen is acellular. SJ:tiffanie 7 HEADER OPERATION: Lumbar puncture PRE-OP DIAGNOSIS: Rule out MS TISSUE SUBMITTED: Cerebrospinal fluid Signed Christian Holt 03/16/16 <signature on file> :39 Glucose Spinal Fluid Comments: Comments: PROTEIN ELCTRO-CSF #[id number] Source? [facility] [address] [place], [place], [address] GLU SPINAL FLD 57 mg/dL (Normal) Range: 40-75 :39 Miscellaneous Lab Procedure Comments: Comments: PROTEIN ELCTRO- CSF LC#[id number](s) Ordered: PROTEIN ELCTRO-CSF LC#[id number] [facility] Hospital [address]em[address] [place], [place], [address] [facility] Comments: TEST RESULT UNITS REFERENCE INTERVALProtein Electrophoresis, CSFProtein, Total, CSF 36.7 mg/dL 0.0 - 44.0Pre- Albumin (CSF) 2.6 % 2.2 - 7.1Albumin LAB (Normal) (CSF) 68.5 % 56.8 - 76.6Ekyyn-6-Fdfcetny CSF 3.9 % 1.1 - 6.5Okaqm-3-Bxppisxo CSF 4.6 % 3.0 - 12.6Beta Globulin (CSF) 15.0 % 7 TEST .3 - 17.9Gamma Globulin (CSF) 5.5 % 3.0 - 13.0Protein electrophoresis scan will follow via computer, mail,or gas jockey delivery.M-Logan Not Observed % Not Observed__ TESTING PERFORMED AT [facility]. ORIGINAL REPORT ON FILE IN LAB CONTAINS ADDITIONAL TEST SITE INFORMATION. :39 Myelin Basic Protein, MBP Comments: [facility] (refer to report for specific site)refer to report for address and phone number MBP [id number] 1.8 ng/mL (Abnormal) Range: 0.0-1.2 Comments: Results for this test are for research purposes only by theassay's electron tube assembler. The performance characteristics ofthis product have not been established. Results should notbe used as a diagnostic pro cedure without confirmation ofthe diagnosis by another medically established diagnosticproduct or procedure. :39 Protein Spinal Fluid Comments: Comments: PROTEIN ELCTRO-CSF LC#[id number] [facility]? [facility] [address]uiv[address] [place], [address] PROTEIN CSF 38.0 mg/dL (Normal) Range: 15.0-45.0 [...] using IsoelectricFocusing (IEF) and immunoblotting methodology.Performed at: [address] [id number] Director: Sean Daniel PhD, Phone: [phone] OLIG BAND REF LAB (Normal) 02-Jvk-39177:04 Protein Electroph, S Comments: [facility] (refer to report for specific site)refer to report for address and phone number NOTE: Comment (Normal) Comments: The SPE pattern appears essentially unremarkable. Evidenceof monoclonal protein is not apparent. INTERPRETATION Comment (Normal) Comments: Protein electrophoresis scan will follow via computer,mail, or gas jockey delivery. A/G RATIO 1.4 (Normal) Range: 0.7-1.7 GLOBULIN, TOTAL 2.8 g/dL (Normal) Range: 2.2-3.9 M-SPIKE g/dL (Normal) Comments: Not Observed GAMMA GLOBULIN 0.9 g/dL (Normal) Range: 0.4-1.8 BETA GLOBULIN 0.9 g/dL (Normal) Range: 0.7-1.3 ALPHA-2 GLOBUL 0.7 g/dL (Normal) Range: 0.4-1.0 ALPHA-1 GLOBUL 0.2 g/dL (Normal) Range: 0.0-0.4 ALBUMIN 3.9 g/dL (Normal) Range: 2.9-4.4 PROTEIN,TOTAL 6.7 g/dL (Normal) Range: 6.0-8.5 4-Xek-988280:15 CBC W/Diff, Automated Comments: DR VILLAFANA ORDERED CBCD/CMPDR FAST ORDERED BMP/FT3/FT4/TSHDR TRES ORDERED CBCD/CMPDR FAST ORDERED BMP/FT3/FT4/[facility]WReg[facility] [address]xba[address] [place], [address] Absolute Lymph 1.41 {X10_3/ul} (Normal) [...] 4.2-5.4 WBC 8.2 K/mm3 (Normal) Range: 4.4-11.0 0-Rti-217061:15 Comprehensive Metabolic Profil Comments: DR VILLAFANA ORDERED CBCD/CMPDR FAST ORDERED BMP/FT3/FT4/[facility] [address]fixa[address] [place], [place], [address] GAP 9 (Normal) Range: 5-15 CO2 26.0 [...] 7-18 GLU 92 mg/dL (Normal) Range: 70-110 8-Voq-744435:15 Free T3 Comments: DR VILLAFANA ORDERED CBCD/CMPDR FAST ORDERED BMP/FT3/FT4/[facility]SHK[facility] [address]pxbjz37[address] [place], [place], [address] FREE T3 2.2 pg/mL (Normal) Range: 2.18-3.98 9-Ikc-991553:15 T4 Free Direct Comments: DR VILLAFANA ORDERED CBCD/CMPDR FAST ORDERED BMP/FT3/FT4/TSHKettering [facility] Hospital [address]fjr[address] [place], [address] T4 FREE DIRECT 0.96 ng/dL (Normal) Range: 0.76-1.46 4-Tcl-867119:15 Thyroid Stim Hormone (TSH) Comments: DR VILLAFANA ORDERED CBCD/CMPDR FAST ORDERED BMP/FT3/FT4/[facility]SHKet[facility] Hospital Mcvssdvwkj0579 [facility] [place], [address] TSH 0.13 {uIU/mL} (Abnormal) Range: 0.358-3.74 66-Fic-511731:21 Metabolic Panel, Basic Comments: PATIENT NOT FASTINGPERFORMED BY: [facility]Co[facility] SystemTzhcad1513 [facility] [id number] (87025) Calcium, Serum 9.5 mg/dL (Normal) Range: 8.7-10.2 [...] 85 mg/dL (Normal) Range: 65-99 :21 TSH (36988) Comments: PATIENT NOT FASTINGPERFORMED BY: [facility]6370 [facility] [id number] TSH 0.031 {uIU/mL} (Abnormal) Range: 0.450-4.500 :21 T3, FREE (TRIDOTHYRONINE) (67110) Comments: PATIENT NOT FASTINGPERFORMED BY: [place] 9381070 [facility] [id number] Triiodothyronine,Free,Serum 3.3 pg/mL (Normal) Range: 2.0-4.4 :21 T4, FREE (THYROXINE) (67389) Comments: PATIENT NOT FASTINGPERFORMED BY: [address] [id number] T4,Free(Direct) 1.52 ng/dL (Normal) Range: 0.82-1.77 :56 CBC W/Diff, Automated Comments: [facility] [address] [place], [place], [address] Absolute Lymph 1.43 {X10_3/ul} (Normal) Range: 0.83-4.51 [...] 4.2-5.4 WBC 6.3 K/mm3 (Normal) Range: 4.4-11.0 14-Zpc-24101:56 Comprehensive Metabolic Profil Comments: [facility] [address] [place], [address] GAP 9 (Normal) Range: 5-15 CO2 26.0 [...] (Normal) Range: 70-110 :56 Hemoglobin A1c Comments: [facility] Kirouhxhwo0385 [facility] [place], [place], [address] HGB A1C 5.4 % (Normal) Range: 4.2-6.3 :56 Microalb:Creat Ratio,Random UR Comments: [facility] Aqwtanvrlr6221 [facility]. [place], [place], [address] MALB:CREAT Test not performed {mg/g_CRE} (Normal) MICROALBUMIN,UR [...] US Food and Drug Administration.Performed at: - [facility] n1447 [facility], [place], [place] [address]Res Director: Eusebio Live MD, Phone: [phone] INS RES/DIAB RK . (Normal) LDL SIZE [...] Microscopic Examination Comments: PATIENT NOT FASTINGPERFORMED BY: [facility]onAc[facility]Care [facility] SystemZgdquk8744 [facility] [id number] Bacteria Few (Normal) Epithelial Cells (non renal) 0-10 {/hpf} (Normal) Range: 0 - 10 RBC 0-2 {/hpf} (Normal) Range: 0 - 2 WBC 0-5 {/hpf} (Normal) Range: 0 - 5 :26 METABOLIC PANEL, COMPREHENSIVE Comments: PATIENT NOT FASTINGPERFORMED BY: [facility]onAcuteCare Health SystemOrqkex3042 [facility] [id number] (60276) ALT (SGPT) 23 [iU]/L (Normal) Range: 0-32 [...] Glucose, Serum 84 mg/dL (Normal) Range: 65-99 68-Fip-290104:26 URINE ARELY CULTURE-IDENTIFICATN Comments: PATIENT NOT FASTINGPERFORMED BY: [facility] Guixtp0734 [facility] [id number] (66998) Result 1 NG36 (Normal) Comments: No growth in 36 - 48 hours. Urine Culture,Comprehensive Final report (Normal) 51-Rja-166207:26 CBC W/AUTO DIFF WBC Comments: PATIENT NOT FASTINGPERFORMED BY: [facility] Sfqpyf1885 [facility] [id number] Information: SRC:THAD (96342) Immature Grans (Abs) 0.0 {x10E3/uL} (Normal) Range: [...] (Normal) Range: 3.4-10.8 :26 URINALYSIS, W/ MICRO (66059) Comments: PATIENT NOT FASTINGPERFORMED BY: [facility] [address]uzpp[address] [place] [id number] Microscopic Examination See below: (Normal) Comments: Microscopic was indicated and was performed. Microscopic Examination MICRON (Normal) Comments: Microscopic follows if indicated. Nitrite, Urine Negative (Normal) Urobilinogen,Semi-Qn 0.2 mg/dL (Normal) Range: 0.2-1.0 Bilirubin Negative (Normal) Occult Blood Negative (Normal) Ketones Negative (Normal) Glucose Negative (Normal) Protein Negative (Normal) WBC Esterase Negative (Normal) Appearance Clear (Normal) Urine-Color Yellow (Normal) pH 7.5 (Normal) Range: 5.0-7.5 Specific [place] 1.005 (Normal) Range: 1.005-1.030 :53 Partial Thromboplast Time Comments: [facility] X[address] [facility] [address] [place], [place], [address] PTT 34.1 s (Normal) Range: 24.1-36.2 :53 Prothrombin Time w/INR Comments: [facility] Imkgmvzlnu4928 [facility] [place], [place], [address] INR 1.1 (Normal) PROTIME 14.1 s (Normal) Range: 11.7-14.9 :43 CBC W/Diff, Automated Comments: [facility] Kkzodltolo8743 [facility] [place], [place], [address] Absolute Lymph 1.00 {X10_3/ul} (Normal) Range: 0.83-4.51 [...] 4.2-5.4 WBC 16.5 K/mm3 (Abnormal) Range: 4.4-11.0 77-Dig-973188:43 Comprehensive Metabolic Profil Comments: [facility] [address] [place], [place], [address] GAP 11 (Normal) Range: 5-15 CO2 24.0 [...] 7-18 GLU 82 mg/dL (Normal) Range: 70-110 49-Aoc-964492:43 Lactic Acid Comments: [facility] [address] [place], [address] LACTIC ACID 1.5 mmol/L (Normal) Range: 0.4-2.0 1-Tmm-367495:06 Metabolic Panel, Basic (04591) Comments: PATIENT NOT FASTINGPERFORMED BY: [facility]6370 [facility]MatcherCarolin[facility] [id number] Calcium, Serum 9.9 mg/dL (Normal) Range: 8.7-10.2 [...] Glucose, Serum 82 mg/dL (Normal) Range: 65-99 4-Cvt-858212:06 PHOSPHORUS (26502) Comments: PATIENT NOT FASTINGPERFORMED BY: [facility] [id number] Phosphorus, Serum 3.8 mg/dL (Normal) Range: 2.5-4.5 6-Zzx-034838:06 PARATHORMONE (39379) Comments: PATIENT NOT FASTINGPERFORMED BY: [facility]6370 [facility] [id number] PTH, Intact 30 pg/mL (Normal) Range: 15-65 9-Ggq-468090:06 SPEP (45843) Comments: PATIENT NOT FASTINGPERFORMED BY: [facility]6370 [facility] [id number] Information: [id number] Please note: SPRCS (Normal) Comments: Protein electrophoresis scan will follow via computer, mail, orcourier delivery. A/G Ratio 1.4 (Normal) Range: 0.7-1.7 Globulin, Total 3.1 g/dL (Normal) Range: 2.2-3.9 M-Logan Not Observed g/dL (Normal) Gamma Globulin 1.1 g/dL (Normal) Range: 0.4-1.8 Beta Globulin 1.0 g/dL (Normal) Range: 0.7-1.3 Beyfu-8-Yilnuved 0.8 g/dL (Normal) Range: 0.4-1.0 Fbduu-8-Pkzjcbid 0.3 g/dL (Normal) Range: 0.0-0.4 Albumin 4.4 g/dL (Normal) Range: 2.9-4.4 Protein, Total, Serum 7.5 g/dL (Normal) Range: 6.0-8.5 9-Jdd-269734:06 UPEP (77618) Comments: PATIENT NOT FASTINGPERFORMED BY: [facility]6370 [facility] [id number] Please note: SPRCS (Normal) Comments: Protein electrophoresis scan will follow via computer, mail, orcourier delivery. M-Logan, % Not Observed % (Normal) Gamma Globulin, U 43.5 % (Normal) Beta Globulin, U 33.9 % (Normal) Ewxsq-9-Vdxximmm, U 9.6 % (Normal) Jurtq-0-Smhmmhlz, U 0.8 % (Normal) Albumin, U 12.1 % (Normal) Protein,Total,Urine <4.0 mg/dL (Normal) Comments: Verified by repeat analysis 6-Wbs-473674:23 URINE CALCIUM SPRING TIMED Comments: PATIENT NOT FASTINGPERFORMED BY: [facility]INDTr[facility]6370 [facility] [id number] Information: [id number] 24 Hour (88389) Calcium, Urine 24hr 133.5 {mg/24_hr} (Normal) Range: 100.0-300.0 Calcium, Urine 3.0 mg/dL (Normal) :08 METABOLIC PANEL, Comments: PATIENT NOT FASTINGPERFORMED BY: JED[facility] MINDTr[facility] Living[facility] Hospital6370 [facility] [id number] Information: [id number] COMPREHENSIVE (20643) ALT (SGPT) 15 [iU]/L (Normal) Range: 0-32 [...] mg/dL (Normal) Range: 65-99 :34 Urinalysis, Office (71129) UA - LEUKOCYTE ESTERASE Negative (Normal) UA [...] CULTURE (SPRING Comments: PATIENT NOT FASTINGPERFORMED BY: [facility]CoAcuteCare Health SystemHqeozx0926 [facility] [id number] Information: SRC:[facility] [id number] COL COUNT) (61407) Result 1 NG36 (Normal) Comments: No growth in 36 - 48 hours. Urine Culture,Comprehensive Final report (Normal) 49-Qas-545007:00 CBC W/Diff, Automated Comments: [facility] [address]vcrnekpoz[address] [facility] [place], [address] Absolute Lymph 1.49 {X10_3/ul} (Normal) Range: 0.83-4.51 [...] 4.2-5.4 WBC 6.2 K/mm3 (Normal) Range: 4.4-11.0 46-Rht-376694:00 Comprehensive Metabolic Profil Comments: [facility] [address] [place], [place], [address] GAP 5 (Normal) Range: 5-15 CO2 28.0 [...] 7-18 GLU 93 mg/dL (Normal) Range: 70-110 96-Lvh-648210:00 Free T3 Comments: [facility] [address] [place], [address] FREE T3 2.9 pg/mL (Normal) Range: 2.18-3.98 49-Mjd-099476:00 T4 Free Direct Comments: [facility] [address] [place], [address] T4 FREE DIRECT 1.07 ng/dL (Normal) Range: 0.76-1.46 16-Iut-348742:00 Thyroid Stim Hormone (TSH) Comments: [facility] [address]fid[address] [place], [address] TSH 0.16 {uIU/mL} (Abnormal) Range: 0.358-3.74 :38 HGB A1C (47540) Comments: PATIENT NOT FASTINGPERFORMED BY: [facility]onAcuteCare Health SystemTonsdp9549 [facility] [id number] Information: [id number] Hemoglobin A1c 5.7 % (Abnormal) Range: 4.8-5.6 Comments: . Pre-diabetes: 5.7 - 6.4 Diabetes: >6.4 Glycemic control for adults with diabetes: <7.0 David Arce BMP8 SPRCS (Normal) Comments: A courtesy copy of this report has been sent toT [facility].PATIENT WAS FASTINGPERFORMED BY: [facility]onAcuteCare Health SystemWybzhr3329 [facility] [id number] :51 Default Comments: A hand-written panel/profile was received from your office. Inaccordance with the [facility] Ambiguous Test Code Policy dated August2002, we have completed your order by using the closest currentlyor formerl y recognized AMA panel. We have assigned Basic MetabolicPanel (8), Test Code #490508 to this request. If this is not thetesting you wished to receive on this specimen, please contact the[facility] Client Inquiry/Technical Services Department to clarify thetest order. We appreciate your business. David Arce LP Default SPRCS (Normal) Comments: A courtesy copy of this report has been sent [facility]ritis [facility].PATIENT WAS FASTINGPERFORMED BY: [facility]6370 [facility] [id number] :51 Comments: A hand-written panel/profile was received from your office. Inaccordance with the [facility] Ambiguous Test Code Policy dated August2002, we have completed your order by using the closest currentlyor formerl y recognized AMA panel. We have assigned Lipid Panel,Test Code #400110 to this request. If this is not the testing youwished to receive on this specimen, please contact the Lab[facility] 19th FloorClAccendo Therapeutics Inquiry/Techni alberto Services Department to clarify the testorder. We appreciate your business. :51 CBC With Differential/Platelet Comments: A courtesy copy of this report has been sent [facility].PATIENT WAS FASTINGPERFORMED BY: [facility]6370 [facility] [id number] Immature Grans (Abs) 0.0 {x10E3/uL} (Normal) Range: [...] 3.77-5.28 WBC 4.8 {x10E3/uL} (Normal) Range: 3.4-10.8 90-Yay-819481:51 Comp. Metabolic Panel (14) Comments: A courtesy copy of this report has been sent [facility].PATIENT WAS FASTINGPERFORMED BY: [facility] Rlsrrt1492 [facility] [id number] ALT (SGPT) 14 [iU]/L (Normal) Range: 0-32 [...] Glucose, Serum 101 mg/dL (Abnormal) Range: 65-99 43-Qqy-950862:51 Lipid Panel Comments: A courtesy copy of this report has been sent [facility].PATIENT WAS FASTINGPERFORMED BY: [facility] Toyoet1673 [facility] [id number]; non-emergent till apt LDL Cholesterol Calc 120 [...] copy of this report has been sent [facility].PATIENT WAS FASTINGPERFORMED BY: [employer]6370 [facility] [id number] 0:51 Range: 30.0-100.0 Comments: Vitamin D deficiency has been defined by the [place] of[place]icine and an Endocrine Society practice guideline as alevel of serum 25-OH vitamin D less than 20 ng/mL (1,2).The Endocrine Society went on to further define vitamin Dinsufficiency as a level between 21 and 29 ng/mL (2).1. IOM ([place] of Medicine). 2010. Dietary reference intakes for calcium and D. [place]: The National Academies Press.2. Mateusz MF, Mary HUNTER, Enma KENDALL, et al. Evaluation, treatment, and prevention of vitamin D deficiency: an Endocrine Society clinical practice guideline. JCEM. 2010; 96(7):1911-30. 92-Kmv-994065:28 Sputum Culture (39350) Comments: PATIENT NOT FASTINGPERFORMED BY: [facility] Fqemql0685 [facility] [id number] Information: [id number] Result 1 STREPN (Abnormal) Comments: Streptococcus pneumoniaeHeavy [...] S Lower Respiratory Final report Culture (Abnormal) 01-Mhk-841199:49 Free T3 Comments: Has Patient had X-rays with Contrast this admission? NIs Patient on Heparin? [facility] [address]ccyn[address] [place], [address] FREE T3 1.9 pg/mL (Abnormal) Range: 2.18-3.98 51-Auv-960823:49 T4 Free Direct Comments: Has Patient had X-rays with Contrast this admission? NIs Patient on Heparin? [facility] [address]extxvl[address] [place], [address] T4 FREE DIRECT 0.84 ng/dL (Normal) Range: 0.76-1.46 29-Cyz-045460:49 Thyroid Stim Hormone (TSH) Comments: Has Patient had X-rays with Contrast this admission? NIs Patient on Heparin? [facility] [address]vdrdpcnb[address] [place], [address] TSH 0.04 {uIU/mL} (Abnormal) Range: 0.358-3.74 56-Swq-580753:43 CBC W/Diff, Automated Comments: Test performed at:[facility] Hdahnkktcm8555 [facility] [place] [address] Absolute Lymph 2.39 {X10_3/ul} (Normal) Range: [...] 4.2-5.4 WBC 8.0 K/mm3 (Normal) Range: 4.4-11.0 90-Zud-189752:43 Comprehensive Metabolic Profil Comments: Test performed at:[facility] Ifsknchysr[address] [facility] [address] [place], [place] [address] GAP 7 (Normal) Range: 5-15 CO2 27.0 [...] 7-18 GLU 92 mg/dL (Normal) Range: 70-110 60-Oez-59853:34 Comprehensive Metabolic Profil Comments: ORDERED LIPID,CMPDR.SNEHA ORDERED TSH,HARLEEN,DHEATest performed at:[facility] [address] [place], [place] [address] GAP 11 (Normal) Range: 5-15 CO2 25.0 [...] Comments: Please note revised CREATININE reference range hypaiobme04/22/2015. BUN 6 mg/dL (Abnormal) Range: 7-18 GLU 97 mg/dL (Normal) Range: 70-110 :34 DHEA Sulfate Comments: Has Patient had Radioactive Injection for X-ray?: NTest performed at:[facility] Vwoegarovt4031 [facility] [place] [address] DHEA SULF 4020 26.8 ug/dL (Abnormal) Range: 41.2-243.7 Comments: Performed at: - [facility] [address] [id number] Director: Sean Daniel PhD, Phone: [phone] :34 Lipid Profile Comments: ORDERED LIPID,CMPDR.SNEHA ORDERED TSH,HARLEEN,DHEATest performed at:[facility] Kpflzluudn6068 [facility] [place], [place] [address] VLDL 14 mg/dL (Normal) Range: 5-40 LDL [...] :34 Testosterone, Serum Total Comments: Test performed at:[facility] W[address] [place] [address] Testosterone 20 ng/dL (Normal) Range: 14-76 40-Jhg-97802:34 Thyroid Stim Hormone (TSH) Comments: ORDERED LIPID,CMPDRSANDHYA ORDERED TSH,HARLEEN,DHEATest performed at:[facility] [address]ks[address] [place] [address] TSH < 0.01 {uIU/mL} (Abnormal) Range: 0.358-3.74 56-Wyx-131347:12 CBC W/Diff, Automated Comments: Test performed at:[facility] [address] [place] [address] Absolute Lymph 1.81 {X10_3/ul} (Normal) Range: [...] 4.2-5.4 WBC 6.0 K/mm3 (Normal) Range: 4.4-11.0 56-Vef-261341:12 Comprehensive Metabolic Profil Comments: Test performed at:[facility] Vashmskicn[address] [place], [place] [address] GAP 6 (Normal) Range: 5-15 CO2 29.0 [...] had Radioactive Injection for X-ray?: NTest performed at:[facility] [address]iminb[address] [place] [address] DHEA SULF 4020 22.6 ug/dL (Abnormal) Range: 41.2-243.7 Comments: Performed at: - [facility] [id number] Director: Omer Stout PhD, Phone: [phone] :36 Free T3 Comments: Has Patient had X-rays with Contrast this admission? ??NIs Patient on Heparin? ??NTest performed at:[facility] [address] ??[place], [place] ??[address] FREE T3 4.7 pg/mL (Abnormal) Range: 2.18-3.98 :36 T4 Free Direct Comments: Has Patient had X-rays with Contrast this admission? NIs Patient on Heparin? NTest performed at:[facility] [address] [place] [address] T4 FREE DIRECT 1.54 ng/dL (Abnormal) Range: 0.76-1.46 :36 Thyroid Stim Hormone (TSH) Comments: Has Patient had X-rays with Contrast this admission? NIs Patient on Heparin? NTest performed at:[facility] [address] [place] [address] TSH < 0.01 {uIU/mL} (Abnormal) Range: 0.358-3.74 :36 Vitamin D,25 Hydroxy Comments: Test performed at:[facility] [address] [place] [address] Vitamin D 25-OH 34.0 ng/mL (Normal) Comments: Vitamin D 25(OH) Status Range Deficiency <20 ng/mL (50nmol/L) Insuffciency 20 - 30 ng/mL (50 - 75 nmol/L) Sufficiency 30 - 100 ng/mL (75 - 250 nmol/L) Toxicity >100 ng/mL (>250 nmol/L) :02 CBC W/Diff, Automated Comments: Test performed at:[facility] [address] [place], [place] [id number] ; non- emergent till apt Absolute Lymph [...] :02 Comprehensive Metabolic Profil Comments: Test performed at:[facility] [address] [place], [place] [id number] GAP 7 (Normal) Range: 5-15 CO2 28.0 [...] 70-110 :02 Lipid Profile Comments: Test performed at:[facility] [address] [place], [place] [id number] VLDL 14 mg/dL (Normal) Range: 5-40 LDL [...] :09 CBC W/Diff, Automated Comments: Test performed at:[facility] [address] [place] [address] ; handled by kerri Absolute [...] :09 Comprehensive Metabolic Profil Comments: Test performed at:[facility] [address] [place] [address] ; kerri GAP 6 (Normal) [...] 7-18 GLU 79 mg/dL (Normal) Range: 70-110 57-Sfb-50137:19 CMP Comments: DR BROWN ORDERED LIPID CMPDR [...] 7-18 GLU 98 mg/dL (Normal) Range: 70-110 32-Kqz-50847:19 LIPID Comments: DR BROWN ORDERED LIPID CMPDR [...] CHOL 168 mg/dL (Normal) Comments: <200 mg/dL Miaoakfff323-050 mg/dL Borderline>240 mg/dL High Risk 88-Kka-587162:51 CBCD ALC 2.36 {X10_3/ul} (Normal) Range: 0.83-4.51 [...] 4.2-5.4 WBC 8.0 K/mm3 (Normal) Range: 4.4-11.0 12-Wmm-867547:51 CMP Comments: DR VILLAFANA ORDERED CBCD CMP [...] 7-18 GLU 89 mg/dL (Normal) Range: 70-110 27-Fgz-652190:51 CORTU Comments: Has Patient had Radioactive Injection for X-ray?: N tCORTU 9 ug/L (Normal) pXTDRF43 39 {ug/24_hr} (Normal) Range: 0-50 :51 DHEA 19.8 ug/dL (Abnormal) Comments: Has Patient had Radioactive Injection for X-ray?: N Range: 41.2-243.7 Comments: Performed at: - [facility] [address] [id number] Director: Eusebio Live MD, Phone: [phone] at: - [facility] [place] [id number] Director: Omer Stout PhD, Phone: [phone] 78-Ffs-127058:51 FT3 2.2 pg/mL (Normal) Comments: DR VILLAFANA [...] - 250 nmol/L)Toxicity >100 ng/mL (>250 nmol/L) 8-Ffh-674243:01 URINE ARELY CULTURE-SPRING COL Comments: PATIENT NOT FASTINGPERFORMED BY: JUAN LUIS [facility] Nkqiqn1924 [facility] [id number] Information: SRC:UR [id number] COUNT (75462) Result 1 NG36 (Normal) Comments: No growth in 36 - 48 hours. Urine Culture,Comprehensive Final report (Normal) 0-Qcw-188769:44 Urinalysis, Office (03171) UA - LEUKOCYTE ESTERASE Negative (Normal) UA [...] X-ray?: N Range: 41.2-243.7 Comments: Performed at: [address] [id number] Director: Sterling Porter MD, Phone: [phone] : FT3 2.4 pg/mL (Normal) Comments: DR.FAST [...] CHOL 235 mg/dL (Abnormal) Comments: <200 mg/dL Glmydaezy102-901 mg/dL Borderline>240 mg/dL High Risk : T4F [...] 268 {mOsm/KG} (Normal) Comments: OSMOLALITY URINE REFERENCE LMHWVXZEY42-affu Urine 300 - 900 mOsm/kgRandom Urine 50 - 1400 mOsm/kgAfter 12 Hr fluid restriction >850 mOsm/kg 94-Cty-864947:31 24HULYT Comments: ST 07/25/13 1130AM CREATININE AND SODIUM ONLYST 1130AM uCL24 63 {mmol/24h} (Abnormal) Range: 110-250 CLU 14 mmol/L (Normal) KU 15.5 mmol/L (Normal) uK24 70.1 {mmol/24h} (Normal) Range: 25-125 uNA24 72 {mmol/24h} (Normal) Range: 40-220 EMELI 16 mmol/L (Normal) uLYTV 4525 mL (Normal) 57-Whg-305943:31 UCRE Comments: ST 07/25/13 1130AM CREATININE AND SODIUM ONLYST 1130AM UCCT 24.0 {HOURS} (Normal) UCRE24 1.2 {g/24_hr} (Normal) Range: 0.6-1.5 UCTV 4.53 L (Normal) URCREAT 26.8 mg/dL (Normal) 41-Bsg-825230:30 CAU Comments: ST 07/25/13 1130AMST 07/25/13/1130AMComments: ej0209 24 hr sodium urine tCAU24 90.0 {mg/24_hr} (Normal) Range: 100.0-300.0 Comments: Reference Xieoo327.0 - 300.0Total volumne: 4525 ml/24hrPerformed at: - [facility] [address] [id number] Director: Sterling Porter MD, Phone: [phone] CAUR 2.1 mg/dL (Normal) 00-Ebh-409238:18 CBCD ALC 2.09 {X10_3/ul} (Normal) Range: 0.83-4.51 [...] 4.2-5.4 WBC 7.0 K/mm3 (Normal) Range: 4.4-11.0 98-Uvw-122384:18 CMP Comments: Comments: ie7166 24 hr sodium urine GAP 8 (Normal) [...] X-ray?: N Range: 41.2-243.7 Comments: Performed at: [facility] [address] [id number] Director: Sterling Porter MD, Phone: [phone] T4F 1.03 ng/dL (Normal) Range: 0.76-1.46 [...] CHOL 176 mg/dL (Normal) Comments: <200 mg/dL Kozzexgar809-670 mg/dL Borderline>240 mg/dL High Risk :17 T4F 1.08 ng/dL (Normal) Comments: DR BROWN ORDERED CMP LIPIDDR WIETEJONATAN ORDERED TSH T3F T4F BMP Range: 0.76-1.46 03-Jan-20136:17 TSH 0.49 {uIU/mL} (Normal) Comments: DR BROWN ORDERED CMP LIPIDDR WIETEJONATAN ORDERED TSH T3F T4F BMP Range: 0.358-3.74 0-Ucf-200393:52 BREAST UNILATERAL Radiology See Note Comments: STUDY: [...] Galeana M.D.November 02, 2012 at 4:00:42 PM [id number] Signed GP/GP If you are the referring physician and would like to consult with theradiologist who provided this interpretation, please contact Luis Angel Quintana at [phone]. If this radiologist is un available, youwill be directed to another radiologist to assist. If you are a patient with a question regarding this report, pleasecontactyour referring physician directly. Professional Interpretation P rovided By: [employer], Phone , These documents contain legally protected [...] Galeana M.D.November 02, 2012 at 3:22:08 PM [id number] Signed GP/GP If you are the referring physician and would like to consult with theradiologist who provided this interpretation, please contact Luis Angel Quintana at [phone]. If this radiologist is unavailable, youwil l [...] 11/02/12 1537 Sign by: Barrera Galeana MD 23-Vdh-23901:00 ABDOMEN/PELVIS WITHOUT CONT Radiology Report See Note [...] Galeana M.D.September 14, 2012 at 8:22:23 AM [id number] Signed GP/GP If you are the referring physician and would like to consult with theradiologist who provided this interpretation, please contact Luis Angel Quintana at [phone]. If this radiologist is unavailable, youwill be directed to another radiologist to assist. If you are a patient with a question regarding this report, pleasecontactyour referring niecy yang directly. Professional Interpretation Provided By: [employer] ([employer]), Phone , These documents contain legally protected [...] 09/14/12 0825 Sign by: Barrera Galeana MD 88-Fzm-183863:15 URINE ARELY CULTURE-IDENTIFICATN Comments: PATIENT NOT FASTINGPERFORMED BY: [facility] Tbtzpg4995 [facility] [id number] Information: ADD [id number] (64092) Result 1 NG36 (Normal) Comments: No growth in 36 - 48 hours. Urine Culture,Comprehensive Final report (Normal) 11-Hqe-073719:03 Urinalysis, Office (02703) UA - BILIRUBIN Negative (Normal) UA - BLOOD Non Hemolyzed Trace (Normal) UA - GLUCOSE Negative (Normal) UA - KETONES Negative mg/dL (Normal) UA - LEUKOCYTE ESTERASE Negative (Normal) UA - NITRITE Negative (Normal) UA - PH 7.0 (Normal) UA - PROTEIN Negative mg/dL (Normal) UA - SPECIFIC GRAVITY 1.010 (Normal) URINE UROBILINGN SPRING TIMED Normal mg/dL (Normal) 85-Ppi-803022:14 CBCMD ANC 3.2 3/uL (Normal) Range: 2.0-7.7 [...] CHOL 206 mg/dL (Abnormal) Comments: <200 mg/dL Qegkuuwox994-526 mg/dL Borderline>240 mg/dL High Risk 46-Gnh-999269:14 T4F 1.17 ng/dL (Normal) Range: 0.76-1.46 :14 TSH 0.02 {uIU/mL} (Abnormal) Range: 0.358-3.74 :14 VITD 39.9 ng/mL (Normal) Comments: Vitamin D 25(OH) Status RangeDeficiency <20 ng/mL (50nmol/L)Insufficiency 20 - 30 ng/mL (50 - 75 nmol/L)Sufficiency 30 - 100 ng/mL (75 - 250 nm ol/L)Toxicity >100 ng/mL (250 nmol/L)Effective 201222-Jun-201220-Fwe-737755:23 BILAT SCRN DIGITAL & CAD Radiology Report [...] Galeana M.D.June 22, 2012 at 2:15:23 PM [id number] Signed GP/GP If you a re the referring physician and would like to consult with theradiologist who provided this interpretation, please contact Luis Angel Quintana at [phone]. If this radiologist is unavailable, you will [...] GLU 4 HR GLU GTT-4 HOUR from 0426:R94730E. 11:43 (Abnormal) Range: 70-110 22-Jun-2012 glu gtt3 36 mg/dL Comments: 4HR GTT GLU 3 HR GLU GTT-3 HOUR from 0426:[id number]. 10:50 (Abnormal) Range: 70-110 Comments: CRITICAL VALUE REPEATED AND VERIFIED. CALLED TO ANUEL BENTLEY06/22/12 MARGY SYKES.RESULTS READ BACK BY SAME . 22-Jun-2012 glu gtt2 84 mg/dL (Normal) Comments: 4HR GTT GLU 2 HR GLU GTT-2 HOUR from 0426:O35266C. 9:50 Range: 70-120 22-Jun-2012 glu gtt1 118 mg/dL Comments: 4HR GTT GLU 1 HR GLU GTT-1 HOUR from 0426:E31487O. 8:50 (Abnormal) Range: 120-170 22-Jun-2012 glu gtt.5 140 mg/dL Comments: 4HR GTT GLU 1/2 HR GLU GTT-30 min. from 0426:W08350D. 8:20 (Normal) Range: 110-170 13-Stg-26644:40 BGM Comments: 4HR GTT FASTING GLU GTT-FASTING from 0426:G46864V. glu gttf 94 mg/dL (Normal) Range: 70-110 Comments: GLUCOSE TOLERANCE TEST Reference IntervalNon- AdultsFasting 70 - 19102 minutes 110 - 1701 hour 120 - 1702 hour 70 - 1203 hour 70 - 1104 hour 70 - 1105 hour 70 - 110 BGM 97 mg/dL (Normal) Range: 70-110 Comments: MANAGEMENT OF PATIENT CARE PER NURSING PROTOCOLNo Action Required0 10-Asz-48300:40 CBCD Comments: DR DAILY ORDERED FTT2IODEDR VILLAFANA ORDERED CMP CBCD ANC 2.2 3/uL [...] 4.4-11.0 :40 CMP Comments: DR DAILY ORDERED HYL8WZDY TRES ORDERED CMP CBCD GAP 8 (Normal) [...] 70-110 :40 GTT4 Comments: DR DAILY ORDERED [id number] TRES ORDERED CMP CBCD :31 CBC WITH MANUAL DIFF Comments: PATIENT NOT FASTINGPERFORMED BY: [facility] Jbigbe8519 [facility] [id number] Information: [id number] (58576) Immature Grans (Abs) 0.0 {x10E3/uL} (Normal) Range: [...] 9.0 {x10E3/uL} (Normal) Range: 4.0-10.5 :31 TSH (54968) Comments: PATIENT NOT FASTINGPERFORMED BY: [facility] Ijdvzl2242 [facility] [id number] TSH 6.430 {uIU/mL} (Abnormal) Range: 0.450-4.500 :31 EBV Panel (78369) Comments: PATIENT NOT FASTINGPERFORMED BY: [facility] [id number] [facility] [id number] Interpretation: SPRCS (Normal) Comments: EBV Interpretation Chart [...] 5:28 (Abnormal) Comments: Results confirmed ondilution.Performed at: [address] [id number] Director: Omer Stout PhD, Phone: [phone] TSH 0.90 {uIU/mL} Range: 0.358-3.74 5:28 (Normal) 1-Hfl-206709:59 Urinalysis, Office (00698) UA - BILIRUBIN Negative (Normal) UA - BLOOD Hemolyzed Trace (Normal) UA - GLUCOSE Negative (Normal) UA - KETONES Negative mg/dL (Normal) UA - LEUKOCYTE ESTERASE Negative (Normal) UA - NITRITE Negative (Normal) UA - PH 7.0 (Normal) UA - PROTEIN Negative mg/dL (Normal) UA - SPECIFIC GRAVITY 1.010 (Normal) URINE UROBILINGN SPRING TIMED Normal mg/dL (Normal) 7-Erx-803063:11 ARELY CULTURE-OTHER (48192) Comments: PATIENT NOT FASTINGPERFORMED BY: [facility] [place] [id number] [facility] [id number] Information: SRC:THRT [id number] Result 1 RRF (Normal) Comments: Routine respiratory kaylene Upper Respiratory Culture Final report (Normal) 3-Xjm-511958:58 Rapid Strep Test, Office (45396) Rapid Strep Test, Office Negative (Normal) 1-Aon-543271:47 Urinalysis, Office (14712) UA - BILIRUBIN Negative (Normal) UA - BLOOD Hemolyzed Trace (Normal) UA - GLUCOSE Negative (Normal) UA - KETONES Negative mg/dL (Normal) UA - LEUKOCYTE ESTERASE Negative (Normal) UA - NITRITE Negative (Normal) UA - PH 6.0 (Normal) UA - PROTEIN Negative mg/dL (Normal) UA - SPECIFIC GRAVITY 1.010 (Normal) URINE UROBILINGN SPRING TIMED Normal mg/dL (Normal) 6-Tpi-997397:11 URINE ARELY CULTURE (SPRING Comments: PATIENT NOT FASTINGPERFORMED BY: [facility]lj[facility] [id number] Information: SRC:UR [id number] COL COUNT) (32141) Result 1 MUG (Normal) Comments: Mixed urogenital auqkz977 Colonies/mL Urine Final report (Normal) Culture,Comprehensive 61-Joh-893900:1 ISAIAS 8.59 ug/dL (Normal) Comments: COMMENTS: FAX RESULTS TO DR. KEVIN HARTMAN DRAW 0 Range: 3.09-22.40 Comments: Adult (AM) 4.30 - 22.40 ug/dL Adult (PM) 3.09 - 16.66 ug/dL 94-Ncb-57035:40 ISAIAS 10.40 ug/dL (Normal) Comments: COMMENTS: FAX [...] (Normal) Range: 70-110 Comments: RESULTS FAXED TO [phone] 01/13/12 0934 MAR[place].RESULTS FAXED TO [phone] 01/13/12 0959 MARINE TOURE. :25 ISAIAS 13.11 [...] Range: 0-34 Comments: Results confirmed ondilution.Performed at: [address] [id number] Director: Omer Stout PhD, Phone: [phone] 24-Cph-73081:25 TSH 5.66 {uIU/mL} (Abnormal) Comments: COMMENTS: FAX [...] ORDERED LIPID,CMP,TSH,CBCMDDR VELLANKI ORDRED CMP,CBCD Range: 0.358-3.74 2-Ggy-923604:46 MYOCARD PERF STRESS/REST MULT Radiology Report See [...] 12/05/11 0829 Sign by: Uzair Retana MD 34-Eod-516515:42 BRAIN W/WO CONTRAST Radiology Report See Note [...] Soto M.D.November 16, 2011 at 2:50:07 PM [id number] Signed LL/LL If you are the referring physician and would like to consult with theradiologist who provided this interpretation, please contact Shahla Weiss M.D. at [phone]. If this radiologist is unavailable, you willbe directed to another radiologist to assist. If you are a patient with a question regarding this report, pleasecontactyour referring physician fabiana fuentes. Professional Interpretation Provided By: [employer] ([employer]el[employer]), Phone , These documents contain legally protected [...] on 11/16/11 1457 Sign by: DARLENE IRVINAIDANA 57-Vyw-136418:25 CHEST WITH CONTRAST Radiology Report See Note [...] Galeana M.D.November 14, 2011 at 3:11:11 PM [id number] Signed GP/GP If you are the referring physician and would like to consult with theradiologist who provided this interpretation, please contact Luis Angel Quintana at [phone]. If this radiologist is unavailable, youwill be directed to another radiologist to assist. If you are a patient with a question regarding this report, pleasecontactyour referring physician directly. Professional Interpretation Provided By: [employer] ([employer]), Phone , These documents contain legally protected [...] 11/15/11 1543 Sign by: Barrera Galeana MD 46-Bmb-007078:39 L/S SPINE,MIN 4 VIEWS Radiology Report See [...] Galeana M.D.November 14, 2011 at 3:46:06 PM [id number] Signed GP/GP If you are the referring physician and would like to co nsult with theradiologist who provided this interpretation, please contact Luis Angel Quintana at [phone]. If this radiologist is unavailable, youwill be directed to another radiologist to [facility]. If you are a patient with a [...] 11/15/11 160 Sign by: Barrera Galeana MD 63-Uqr-609714:38 CERV SPINE,MIN 4 VIEWS Radiology Report See [...] fusion at the C4, C5, and C5, Q3wuwmocntvq prosthetic disk material. 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 Normal visualized intervertebral neuroforamina. Normal visuali zed soft tissue structures. IMPRESSION:Anterior fusion at the C4-C5 and C6- C7 levels. Signed:Barrera Galeana M.D.November 14, 2011 at 3:47:12 PM [id number] Signed GP/GP If you ar e the referring physician and would like to consult with theradiologist who provided this interpretation, please contact Luis Angel Quintana at [phone]. If this radiologist is unavailable, youw ill [...] on 11/14/111553 Sign by: Barrera Galeana MD 05-Ast-640706:38 HIP, MIN 2 VIEWS Radiology Report See [...] Galeana M.D.November 14, 2011 at 3:48:20 PM [id number] Signed GP/GP If you are the referring physician and would like to consult with theradiologist who provided this interpre tation, please contact Luis Angel Quintana at [phone]. If this radiologist is unavailable, youwill be [...] for the return or destructionofthese documents. Dicta kta on 11/14/11 1006 by Wendy IRVIN,Kimranscribed on 11/14/11 1555 by ITS IMPORTSign by Wendy IRVIN,Barrera on 11/14/11 1556 Sign by: Barrera Galeana MD 00-Dhe-50944:52 CBCMD RBCM NORM C+C {NORMAL} (Normal) PE [...] Galeana M.D.November 14, 2011 at 3:48:08 PM [id number] Signed GP/GP If you are the referring physician and would like to consult with ld crowley who provided this interpretation, please contact Luis Angel Quintana at [phone]. If this radiologist is unavailable, youwill be directed to another radiologist to assist. If you are a patient with a question regarding this report, pleasecontactyour referring physician directly. Professional Interpretation Provided By: [employer] ([employer]), Phone , These document s contain legally [...] 11/15/11 1608 Sign by: Barrera Galeana MD 6-Jpz-212478:42 JACQUI Comments: DR BROWN ORDERED LIPID TSH CMPDR VELLANKI ORDERED CMP CBCD DNA JACQUI CHERIE SCL-70 SSA/SSBENA ANTICENTROMERE taANA 45 AU/mL (Normal) 7-Lor-943570:42 ANEX Comments: DR BROWN ORDERED LIPID TSH CMPDR VELLANKI ORDERED CMP CBCD DNA JACQUI CHERIE SCL-70 SSA/SSBENA ANTICENTROMERE taANA COMMENT (Normal) Comments: TESTING INTERPRETATIONSPOSITIVE: > 120EQUIVOCAL: 100 - 120NEGATIVE: < 100 taRNP 29 AU/mL (Normal) taSM 32 AU/mL (Normal) 5-Ktg-208023:42 ANTIJO1 Comments: DR BROWN ORDERED LIPID TSH CMPDR VELLANKI ORDERED CMP CBCD DNA JACQUI CHERIE SCL-70 SSA/SSBENA ANTICENTROMERE taJO1 17 AU/mL (Normal) 1-Idr-607419:42 CBCD ANC 3.9 3/uL (Normal) Range: 2.0-7.7 [...] Please note: Revised HEMOGLOBIN REFERENCE RANGES Reference [place] effective 09/28/11.Please note: Revised HEMOGLOBIN REFERENCE RANGES Reference New Body MDge effective 09/28/11. RBC 3.87 {M/mm3} (Abnormal) Range: 4.2-5.4 WBC 6.2 K/mm3 (Normal) Range: 4.4-11.0 2-Cvd-313477:42 CENTB Comments: DR BROWN ORDERED LIPID TSH CMPDR VELLANKI ORDERED CMP CBCD DNA JACQUI CHERIE SCL-70 SSA/SSBENA ANTICENTROMERE taCENTB 6 AU/mL (Normal) 5-Nvx-079541:42 CMP Comments: DR BROWN ORDERED LIPID TSH [...] 7-18 GLU 94 mg/dL (Normal) Range: 70-110 0-Inr-549749:42 DNAAB Comments: DR BROWN ORDERED LIPID TSH CMPDR VELLANCHING ORDERED CMP CBCD DNA JACQUI CHERIE SCL-70 SSA/SSBENA ANTICENTROMERE tadsDNA 5 {IU/mL} (Normal) 9-Fzx-068866:42 LIPID Comments: DR BROWN ORDERED LIPID TSH [...] 200-240 mg/dL Borderline >240 mg/dL High Risk 2-Qmz-117640:42 SCL70 Comments: DR BROWN ORDERED LIPID TSH CMPDR VELLANKI ORDERED CMP CBCD DNA JACQUI CHERIE SCL-70 SSA/SSBENA ANTICENTROMERE taSCL70 45 AU/mL (Normal) 4-Aiw-694456:42 SSA Comments: DR BROWN ORDERED LIPID TSH CMPDR VELLANKI ORDERED CMP CBCD DNA JACQUI CHERIE SCL-70 SSA/SSBENA ANTICENTROMERE taSSA 31 AU/mL (Normal) 3-Iuu-615057:42 SSB Comments: DR BROWN ORDERED LIPID TSH CMPDR VELLANKI ORDERED CMP CBCD DNA JACQUI CHERIE SCL-70 SSA/SSBENA ANTICENTROMERE taSSB 34 AU/mL (Normal) 2-Cpc-708410:42 TSH 11.70 {uIU/mL} (Abnormal) Comments: DR BROWN ORDERED LIPID TSH CMPDR VELLANKI ORDERED CMP CBCD DNA JACQUI CHERIE SCL-70 SSA/SSBENA ANTICENTROMERE Range: 0.358-3.74 05-Noh-91397:36 ESOPHAGUS ONLY Radiology Report See Note (Normal) [...] Galeana M.D.September 13, 2011 at 9:19:02 AM [id number] ly Signed GP/GP If you are the referring physician and would like to consult with theradiologist who provided this interpretation, please contact Luis Angel Quintana at [phone]. If this radiolo gist is unavailable, youwill be directed to another radiologist to assist. If you are a patient with a question regarding this report, pleasecontactyour referring physician directly. Professional Interp retation Provided By: [employer] ([employer]), Phone , Dictated on 09/13/11 0834 by Hilary Galeana MDribed on 09/13/11 0945 by ITS IMPORTSign by Barrera Galeana MD on 09/13/11 0946 Sign by: Barrera Galeana MD 15-Tfh-01845:47 CBCMD RBCM NORM C+C {NORMAL} (Normal) PE [...] Signed GP/GP Professional Interpretation Provide d By: [facility], , To consult with a radiologist regarding this report, please call our 95L9pguffug line @ Dictated on 03/10 1331 by Kim Galeana MDranscribed on 06/28/111851 by ITS IMPORTSign by Barrera Galeana MD on 06/28/111852 Sign by: Barrera Galeana MD 92-Ybz-85468:32 THYROID Radiology Report See Note (Normal) Comments: [...] EDTElectronically Signed DL/DL Professional Interpretation Provided By: [employer], , To consult with a radiologist regarding t his report, please call our 72M9gfkbzef line @ Dictated on 06/24/11 1013 by John Spencer MDTranscribed on 06/24/115 by ITS IMPORTSign by John Spencer MD on 06/24/111655 Sign by: John Spencer MD 57-Bjr-23963:30 BILAT SCRN DIGITAL & CAD Radiology Report [...] EDTElectronically Signed GP/GP Professional Interpretation Provided By: [employer], , To consult with a radiologist regarding this report, please call our 70B4uccddla line @ Dictated on 06/24/11 0945 by Wendy IRVIN,AcrieleTranscribed on 06/24/11 1025 by ITS IMPORTSign by Wendy IRVIN,Barrera on 06/24/11 1026 Sign by: Wendy IRVIN,Barrera 49-Qno-818341: CUT See Note (Normal) Comments: CULTURE OF [...] 7-18 GLU 94 mg/dL (Normal) Range: 70-110 20-Cdv-755467:46 EBGM tEBINT Comment (Normal) Comments: EBV Interpretation Chart . Interpretation VCA-IgM EA-IgG VCA-IgG NA-ABS . Susceptible - - - - Acute Infection + +or- +or- - Convalescent Phase +or- +or- + + Chronic or Reactivated - + + +or- Old Infection - - +or- + + Antibody Pr esent - Antibody AbsentPerformed at: - [facility] [id number] Director: Iraida Willingham MD, Phone: [phone] EBNA > 8.0 {AI} (Abnormal) Range: 0.0-0.8 Comments: Negative <0.9 Equivocal 0.9 - 1.0 Positive >1.0 EBVG > 8.0 {AI} (Abnormal) Range: 0.0-0.8 Comments: Negative <0.9 Equivocal 0.9 - 1.0 Positive >1.0 EBEAG < 0.2 (Normal) Comments: Negative <0.9 Equivocal 0.9 - 1.0 Positive >1.0 EBVM < 0.2 {AI} (Normal) Range: 0.0-0.8 Comments: Negative <0.9 Equivocal 0.9 - 1.0 Positive >1.0 65-Apt-206617:28 CHEST, PA AND LATERAL Radiology Report See [...] radiologist regarding this report, please call our 01Q3kmszzfr line @ Dictated on 06/07/11 1321 by Wendy IRVIN,Kimscotland county memorial hospitalniurkade bed on 06/07/11 1408 by ITS IMPORTSign by Barrera Galeana MD on 06/07/11 1409 Sign by: Barrera Galeana MD CUT See Note (Normal) Comments: #1- PRESUMPTIVE FRANK ALBICANSNo beta-hemolytic streptococcus isolated. AMOUNT GROWTH RARE ORGANISM 1: YEAST 4:09 H.PYLORI 179884 < 0.9 U/mL (Normal) Range: 0.0-0.8 1:47 Comments: Negative <0.9 Indeterminate 0.9 - 1.0 Positive >1.0Performed at: [facility] [id number] Director: Iraida Willingham MD, Phone: [phone] 1-Tzz-679450:34 CBCD,SMEAR DIFF MACROCYTE 1+ (Normal) RED CELL [...] 4.2-5.4 WBC 7.6 K/mm3 (Normal) Range: 4.4-11.0 9-Gkf-195896:34 COMP METABOLIC GAP 8 (Normal) Range: 5-15 [...] 7-18 GLU 83 mg/dL (Normal) Range: 70-110 4-Drh-743348:20 Urinalysis, Office (19308) UA - BILIRUBIN Negative (Normal) UA - [...] URINE CULTURE Culture exhibits no growth. (Normal) [id number]:07 CULTURE, THROAT See Note (Normal) Comments: AMOUNT [...] $ <=10 S VANCOMYCIN $ <=1 S [id number]:30 Rapid Strep Test, Office (93374) Rapid Strep Test, Office Negative (Normal) [id number]:52 SPINE,CERVICAL WITHOUT CONTRAS Radiology Report See Note [...] 07/21/10 0102 Sign by: Barrera Galeana MD [id number]:22 CERV SPINE,MIN 4 VIEWS Radiology Report See Note (Normal) Comments: CLINICAL:Female, 49 years old. Neck pain. X-RAY EXAMINATION - CERVICAL SPINE TECHNIQUE:Five views of the cervical spine were obtained. COMPARISON:None FINDINGS:Normal craniovertebral junction. Normal anterior atlantoaxialarticulation. Normal odontoid process. There is straightening of the normal cervical lordosis. Normal vertebralbodies and posterior osseous elements. The transverse processes of A7hyerryvnuvht. There is multi-level degenerative disc space narrowing with endplatespondylosis. There is multi-level osseous foraminal stenosis at V7-K0uqoM3-Y0, bilateral. Normal visualized soft tiss ue structures. IMPRESSION:Multilevel degenerative disc disease with osseous foraminal stenosis.Prominent transverse processes of C7 may cause thoracic outlet syndrome.Straightening of the normal cervica l lordosis. Dictated on 07/13/10 1536 by MANJINDER HOLLIDAY MDOTranscribed on 07/14/10 1209 by ITS IMPORTSign by SWATI HOLLIDAY MD on 07/14/10 1210 Sign by: SWATI HOLLIDAY MD 71-Hxu-35088:00 CHEST, PA AND LATERAL Radiology Report See [...] and bi lateralhipsw ere obtained using a [employer] scanner.. COMPARISON:Comparison is made with prior study [...] on 06/22/101444 Sign by: Barrera Galeana MD 2-Vtx-780162:14 Rapid Strep Test, Office (53372) Rapid Strep Test, Office Negative (Normal) 04-Jun-20100:00 [...] CBCD VITD Range: 0.358-3.74 :29 VIT D,25 09056 53.4 ng/mL (Normal) Comments: DR. BROWN ORDERED TSH LIPID CMP VITD CBCMDDR. VELLANKI CMP CBCD VITD Range: 32.0-100.0 Comments: Recent studies consider the lower limit of 32.0 ng/mL to ama threshold for optimal health.Fco GARCIA. J Nutr. 2004;135(2):317-22.Performed at: [facility] [place] [address] Director: Iraida Willingham MD, Phone: [phone] 46-Uzp-514340:30 LQD PAP [id number] PAPSMR Comment (Normal) Comments: The Pap smear [...] no HPV testing was performed. .Performed at: [facility] [address] [id number] Director: Nita Hernandez MD, Phone: [phone] COMM . (Normal) DIAGN Comment (Normal) Comments: NEGATIVE FOR INTRAEPITHELIAL LESION AND MALIGNANCY.CELLULAR CHANGES ASSOCIATED WITH ATROPHY ARE PRESENT.Satisfactory for evaluation.Kiran Gayle, Oven Dauber ([facility]) :41 BONE SCAN WHOLE BODY Radiology Report [...] Report See Note (Normal) Comments: Exam Number: [id number] LINICAL:This is a 49-year-old female patient with [...] Report See Note (Normal) Comments: Exam Number: [id number] LINICAL:This is a 49 year old female [...] as noted above. Reported By: BARRERA GALEANA 2-Yct-277141:41 THYROID (HP) Radiology Report See Note (Normal) Comments: Exam Number: [id number] LINICAL:This is a 49-year-old female patient with [...] described. Reported By: BARRERA GALEANA : ANTI-CCP 182687 2 {units} (Normal) Range: 0-19 41 Comments: Negative <20 Weak positive 20 - 39 Moderate positive 40 - 59 Strong positive >59Performed at: [facility] [address] [id number] Director: Eusebio Live MD, Phone: [phone] JACQUI DIR SEMI-QL JACQUI DIRECT 77 [...] 1000-10,000 ORGANISM 1: MIXED GRAM POSITIVE ORGANISMS 69-Szl-890486:13 LIPID HDL 68 mg/dL (Normal) Comments: Reference RangeHDL <40 mg/dL Low HDL CholesterolHDL >or= 60 mg/dL High HDL Cholesterol LDL 81 mg/dL (Normal) Range: 0-130 VLDL 17 mg/dL (Normal) Range: 5-40 CHOL 166 mg/dL (Normal) Comments: <200 mg/dL Muvwcghgo357-478 mg/dL Borderline>240 mg/dL High Risk TRIG 85 mg/dL (Normal) Comments: Serum Triglycerides Reference IntervalNormal <150 mg/dLBorderline high 150 - 199 mg/dLHigh 200 - 499 mg/ dLVery High > or = 500 mg/dL 60-Kpd-920008:13 LIVER ALB 4.3 g/dL (Normal) Range: 3.4-5.0 ALK P 52 U/L (Normal) Range: 50-136 ALT 20 U/L (Normal) Range: 12-78 AST 11 U/L (Abnormal) Range: 15-37 D BILI 0.17 mg/dL (Normal) Range: 0.00-0.30 T BILI 0.80 mg/dL (Normal) Range: 0.00-1.00 T PROT 7.6 g/dL (Normal) Range: 6.4-8.2 39-Qxm-530537:13 TSH 0.49 {uIU/mL} (Normal) Range: 0.358-3.74 :13 VIT D,25 52274 63.3 ng/mL (Normal) Range: 32.0-100.0 Comments: Recent studies consider the lower limit of 32.0 ng/mL to ama threshold for optimal health.Fco GARCIA. J Nutr. 2004;135(2):317-22.Performed at: [facility] Lab[place] [address]Lab Director: Iraida Willingham MD, Phone: [phone] 0-Kdb-790833:57 CHEST, PA AND LATERAL ([place]) Radiology Report See Note (Normal) Comments: Exam Number: [id number] X-RAY EXAMINATION: CHEST CLINICAL:This is a 49-year-old [...] CHOL 320 mg/dL (Abnormal) Comments: <200 mg/dL Ikeymsahy041-636 mg/dL Borderline>240 mg/dL High Risk TRIG 107 mg/dL (Normal) Comments: Serum Triglycerides Reference IntervalNormal <150 mg/dLBorderline high 150 - 199 mg/dLHigh 200 - 499 mg/ dLVery High > or = 500 mg/dL :14 T4 FREE DIRECT 0.70 ng/dL (Abnormal) Range: 0.76-1.46 :14 TSH 15.20 {uIU/mL} Range: 0.358-3.74 (Abnormal) 03-Quq-156728:01 BILAT SCRN DIGITAL & CAD Radiology Report See Note (Normal) Comments: Exam Number: [id number] MAMMOGRAM, BILATERAL SCREENING DIGITAL AND CAD HISTORYRoutine [...] mammograms werealso examined with computer-aided detection software ([employer], [employer] Reported By: MELISSA LEES M.D. Plan [...] Other hyperlipidemia Planned Observations METABOLIC PANEL, COMPREHENSIVE (43215)Indication: Right flank pain On: :21 Request Comments: stat CBC W/AUTO DIFF WBC (16212)Indication: Right flank pain On: :21 Request Comments: stat URINE ARELY CULTURE-IDENTIFICATN (52535)Indication: Dysuria On: :01 Request CBC with auto diff (45110)Indication: Impaired fasting glucose On: 6-Day-230776:53 Request METABOLIC PANEL, COMPREHENSIVE (18792)Indication: Impaired fasting glucose On: 1-Bqb-478729:53 Request HGB A1C (67878)Indication: Impaired fasting glucose On: 6-Vrd-442507:53 Request LIPID PANEL (15185)Indication: Other hyperlipidemia On: 1-Iof-925214:53 Request Vitamin D Hydroxy (28093)Indication: Vitamin D deficiency On: :10 Request LIPID PANEL (22440)Indication: Other hyperlipidemia On: :10 Request CBC with auto diff (78231)Indication: Impaired fasting glucose On: :08 Request METABOLIC PANEL, COMPREHENSIVE (62014)Indication: Impaired fasting glucose On: 05-Kug-870484:08 Request C-REACTIVE PROTEIN (60068)Indication: Left-sided face pain On: :08 Request SED RATE ERYTHROCYTE (06939)Indication: Left-sided face pain On: 24-Ejq-438659:08 Request HGB A1C (83997)Indication: Impaired fasting glucose On: :08 Request CBC, PLATELETS & MANUAL DIFF (99347)Indication: Fatigue On: :44 Request EBV Panel (13157)Indication: Fatigue On: :44 Request LIPID PANEL (93161)Indication: Other hyperlipidemia On: :00 Request CBC with auto diff (98712)Indication: Impaired fasting glucose On: :00 Request METABOLIC PANEL, COMPREHENSIVE (70743)Indication: Impaired fasting glucose On: :00 Request HGB A1C (36617)Indication: Impaired fasting glucose On: :00 Request LIPID PANEL (15304)Indication: Other hyperlipidemia On: :37 Request TSH (THYROID STIMULATING HORMONE) (79887)Indication: Acquired hypothyroidism On: :37 Request CBC with auto diff (42225)Indication: Impaired fasting glucose On: :35 Request METABOLIC PANEL, COMPREHENSIVE (70506)Indication: Impaired fasting glucose On: :35 Request MICROALBUMIN: CREATININE RATIO (40995) AND (04771)Indication: Impaired fasting glucose On: 9-Aan-385850:35 Request HGB A1C (21004)Indication: Impaired fasting glucose On: :35 Request CBC W/AUTO DIFF WBC (59629)Indication: Primary adrenocortical insufficiency On: 83-Zxn-650573:06 Request METABOLIC PANEL, COMPREHENSIVE (47837)Indication: Primary adrenocortical insufficiency On: 82-Odk-422905:06 Request LIPID PANEL (90074)Indication: Other hyperlipidemia On: : Request CBC with auto diff (68295)Indication: Impaired fasting glucose On: :26 Request METABOLIC PANEL, COMPREHENSIVE (53601)Indication: Impaired fasting glucose On: :26 Request HGB A1C (39805)Indication: Impaired fasting glucose On: :26 Request TSH (69353)Indication: Acquired hypothyroidism On: 21-Ybr-915006:59 Request Comments: 6 weeks RHEUMATOID FACTOR-QUANT (28100)Indication: Joint pain On: 77-Add-934087:02 Request C-REACTIVE PROTEIN (40772)Indication: Joint pain On: 79-Ugl-927034:02 Request SED RATE ERYTHROCYTE (93305)Indication: Joint pain On: :02 Request URIC ACID BLOOD (42919)Indication: Joint pain On: 36-Cun-843159:02 Request T3, FREE (TRIDOTHYRONINE) (22535)Indication: Acquired hypothyroidism On: :58 Request T4, FREE (THYROXINE) (10382)Indication: Acquired hypothyroidism On: :58 Request TSH (16338)Indication: Acquired hypothyroidism On: :58 Request CBC W/AUTO DIFF WBC (20828)Indication: Edema, unspecified type On: :48 Request METABOLIC PANEL, COMPREHENSIVE (79721)Indication: Edema, unspecified type On: :48 Request SODIUM URINE (55891)Indication: Hyponatremia On: :30 Request Vitamin D Hydroxy (78518)Indication: Hypocalcemia On: :31 Request PARATHORMONE (84425)Indication: Hypocalcemia On: : Request PHOSPHORUS (04875)Indication: Hypocalcemia On: :31 Request METABOLIC PANEL, COMPREHENSIVE (47379)Indication: Hypocalcemia On: :30 Request T3, FREE (TRIDOTHYRONINE) (65918)Indication: Acquired hypothyroidism On: :20 Request T4, FREE (THYROXINE) (56273)Indication: Acquired hypothyroidism On: :20 Request TSH (48332)Indication: Acquired hypothyroidism On: :20 Request HGB A1C (53125)Indication: Impaired fasting glucose On: :17 Request MICROALBUMIN: CREATININE RATIO (24115) AND (16017)Indication: Impaired fasting glucose On: :17 Request METABOLIC PANEL, COMPREHENSIVE (49306)Indication: Impaired fasting glucose On: :17 Request T3, FREE (TRIDOTHYRONINE) (90496)Indication: Acute nonintractable headache, unspecified headache type On: :46 Request T4, FREE (THYROXINE) (00833)Indication: Acute nonintractable headache, unspecified headache type On: 52-Eqw-739805:46 Request TSH (08082)Indication: Acute nonintractable headache, unspecified headache type On: :46 Request TSH (34910)Indication: Acquired hypothyroidism On: :46 Request T4, FREE (THYROXINE) (79328)Indication: Acquired hypothyroidism On: :46 Request Metabolic Panel, Basic (52966)Indication: Hyponatremia On: :46 Request T3, FREE (TRIDOTHYRONINE) (01386)Indication: Acquired hypothyroidism On: :46 Request MICROALBUMIN: CREATININE RATIO (56281) AND (29387)Indication: Impaired fasting glucose On: :55 Request LIPOPROTEIN, BLD, BY NMR (38318)Indication: Other hyperlipidemia On: :55 Request METABOLIC PANEL, COMPREHENSIVE (61031)Indication: Osteoporosis On: 2-Aqt-876741:52 Request Vitamin D Hydroxy (76848)Indication: Osteopenia On: 25-Qta-779726:03 Request CBC W/AUTO DIFF WBC (52406)Indication: Gastroesophageal reflux disease without esophagitis On: 05-Ihg-161066:03 Request METABOLIC PANEL, COMPREHENSIVE (64878)Indication: Other hyperlipidemia On: 84-Gpk-987291:03 Request LIPID PANEL (42862)Indication: Other hyperlipidemia On: 54-Mhz-432742:03 Request DHEA-S (DEHYDROEPIANDROSTERONE SULFATE) (47118)Indication: Adrenal disorder, other On: :29 Request VITAMIN D, 1, 25-DIHYDROXY (19817)Indication: Vitamin D deficiency On: :29 Request T4, TOTAL (97032)Indication: Acquired hypothyroidism On: : Request T3, TOTAL (TRIDOTHYRONINE) (56109)Indication: Acquired hypothyroidism On: :29 Request T3, FREE (TRIDOTHYRONINE) (80486)Indication: Acquired hypothyroidism On: : Request T4, FREE (THYROXINE) (32730)Indication: Acquired hypothyroidism On: 1-Reese-09253:28 Request TSH (03104)Indication: Acquired hypothyroidism On: 27-Aug-20149:28 Request T4, FREE (THYROXINE) (48341)Indication: Thyroid nodule On: 9-Zec-913174:57 Request T3, FREE (TRIDOTHYRONINE) (64712)Indication: Thyroid nodule On: 7-Qza-756985:57 Request TSH (46467)Indication: Thyroid nodule On: 1-Hfj-308316:57 Request T3, FREE (TRIDOTHYRONINE) (41260)Indication: Acquired hypothyroidism On: :39 Request Comments: forward to Dr Grimm, Endocronologist, [place] T4, FREE (THYROXINE) (77443)Indication: Acquired hypothyroidism On: :39 Request Comments: forward to Dr Grimm, Endocronologist, [place] TSH (43704)Indication: Acquired hypothyroidism On: :39 Request Comments: forward to Dr Grimm, Endocronologist, [place] DHEA (DEHYDROEPIANDROSTERONE) (61378)Indication: Adrenal disorder, other On: :39 Request Comments: forward to Dr Grimm, Endocronologist, [place] CALCIFEDIOL (32349)Indication: Vitamin D deficiency On: :38 Request Comments: forward to Dr Grimm, Endocronologist, [facility] METABOLIC PANEL, COMPREHENSIVE (01752)Indication: Other hyperlipidemia On: 64-Duz-482185:32 Request LIPID PANEL (11391)Indication: Other hyperlipidemia On: 45-Ddb-629772:32 Request CBC W/AUTO DIFF WBC (34227)Indication: Macrocytosis without anemia On: 14-Ghu-544038:53 Request METABOLIC PANEL, COMPREHENSIVE (79366)Indication: Other hyperlipidemia On: 41-Otn-342183:53 Request LIPID PANEL (31475)Indication: Other hyperlipidemia On: 38-Fvl-963054:53 Request METABOLIC PANEL, COMPREHENSIVE (55391)Indication: Other hyperlipidemia On: 25-Itf-269067:24 Request LIPID PANEL (97623)Indication: Other hyperlipidemia On: 45-Fat-019685:24 Request CULTURE, SPUTUM (79053)Indication: Cough On: 23-Ckc-137705:14 Request METABOLIC PANEL, COMPREHENSIVE (32025)Indication: Other hyperlipidemia On: 0-Fqd-643550:02 Request LIPID PANEL (21731)Indication: Other hyperlipidemia On: 6-Ssr-225376:02 Request CBC WITH MANUAL DIFF (06097)Indication: Upper Respiratory Infection On: 1-Ftq-858224:11 Request METABOLIC PANEL, COMPREHENSIVE (87076)Indication: Upper Respiratory Infection On: 5-Bte-549301:11 Request LIPID PANEL (76154)Indication: Other hyperlipidemia On: :11 Request LIPID PANEL (64378)Indication: Other hyperlipidemia On: :28 Request METABOLIC PANEL, COMPREHENSIVE (94285)Indication: Other hyperlipidemia On: :28 Request Vitamin D Hydroxy (22308)Indication: Osteopenia On: :16 Request CBC WITH MANUAL DIFF (32877)Indication: Fatigue On: 31-Xuv-232487:16 Request METABOLIC PANEL, COMPREHENSIVE (41765)Indication: Fatigue On: 16-Khs-320997:16 Request T3, FREE (TRIDOTHYRONINE) (32778)Indication: Acquired hypothyroidism On: 36-Jxe-328167:16 Request T4, FREE (THYROXINE) (37394)Indication: Acquired hypothyroidism On: 03-Kkw-248691:16 Request TSH (81801)Indication: Acquired hypothyroidism On: 25-Vxz-447443:16 Request LIPID PANEL (56891)Indication: Other hyperlipidemia On: 25-Ism-839558:15 Request T3, FREE (TRIDOTHYRONINE) (27167)Indication: Acquired hypothyroidism On: 21-Feb-2012 Request T4, FREE (THYROXINE) (22895)Indication: Acquired hypothyroidism On: 21-Feb-2012 Request TSH (20704)Indication: Acquired hypothyroidism On: 21-Feb-2012 Request Metabolic Panel, Basic (35843)Indication: Fatigue On: 94-Rhw-868659:58 Request Anti-TPO Antibody (78406)Indication: Acquired hypothyroidism On: 95-Tqa-292777:56 Request T3, FREE (TRIDOTHYRONINE) (41152)Indication: Acquired hypothyroidism On: 91-Arn-356818:56 Request T4, FREE (THYROXINE) (89830)Indication: Acquired hypothyroidism On: 25-Iow-538594:56 Request TSH (89985)Indication: Acquired hypothyroidism On: 87-Yac-350107:49 Request VITAMIN B-12 (CYANOCOBALAMIN) (95134)Indication: Macrocytosis without anemia On: 34-Vhy-100738:49 Request TSH (25426)Indication: Palpitations On: :48 Request METABOLIC PANEL, COMPREHENSIVE (99900)Indication: Syncope On: :48 Request CBC WITH MANUAL DIFF (40482)Indication: Syncope On: :48 Request D-Dimer (77039)Indication: Syncope On: :48 Request Comments: stat CBC WITH MANUAL DIFF (75664)Indication: inflammatory arthritis- following with valenke On: 70-Ick-193653:03 Request METABOLIC PANEL, COMPREHENSIVE (73956)Indication: inflammatory arthritis- following with valenke On: 86-Mey-813668:03 Request LIPID PANEL (08681)Indication: Other hyperlipidemia On: 81-Mpx-559299:03 Request TSH (59709)Indication: Acquired hypothyroidism On: 62-Nai-39166:56 Request TSH (58454)Indication: Acquired hypothyroidism On: 1-Yqa-729552:08 Request Comments: to be done in 8 weeks. METABOLIC PANEL, COMPREHENSIVE (77301)Indication: Dysphagia, unspecified dysphagia On: 44-Rvh-698361:52 Request LIPID PANEL (99315)Indication: Other hyperlipidemia On: 80-Xpo-455126:52 Request TSH (39782)Indication: Acquired hypothyroidism On: 61-Okj-096686:52 Request TSH (13674)Indication: Acquired hypothyroidism On: 20-Jyq-904229:15 Request CULTURE, SPUTUM (74299)Indication: Cough On: 1-Kjv-508293:52 Request Throat Culture (06904)Indication: Unspecified bacterial pneumonia On: 81-Dmk-682965:00 Request Comments: swab tounge per order from Dr. Brown ARELY CULTURE-OTHER (03495)Indication: Unspecified bacterial pneumonia On: :43 Request EBV Panel (77273)Indication: Fatigue On: :41 Request METABOLIC PANEL, COMPREHENSIVE (36941)Indication: Fatigue On: :41 Request CBC WITH MANUAL DIFF (99165)Indication: Fatigue On: :41 Request ARELY CULTURE-OTHER (85613)Indication: Pharyngitis, acute On: :24 Request Rapid Strep Test, Office (35613)Indication: Pharyngitis, acute On: :24 Request CBC WITH MANUAL DIFF (44189)Indication: Anxiety On: :13 Request METABOLIC PANEL, COMPREHENSIVE (44823)Indication: Other hyperlipidemia On: :13 Request T4, FREE (THYROXINE) (37259)Indication: Acquired hypothyroidism On: :12 Request T3, FREE (TRIDOTHYRONINE) (89466)Indication: Acquired hypothyroidism On: :12 Request TSH (92426)Indication: Acquired hypothyroidism On: :12 Request LIPID PANEL (10014)Indication: Other hyperlipidemia On: :11 Request URINE ARELY CULTURE-SPRING COL COUNT (54171)Indication: Urinary frequency On: :21 Request METABOLIC PANEL, COMPREHENSIVE (56813)Indication: Gastroesophageal reflux disease without esophagitis On: :19 Request CBC WITH MANUAL DIFF (56296)Indication: Gastroesophageal reflux disease without esophagitis On: :19 Request HELICOBACTER PYLORI ANTIBODY PROFILE IgG, IgM, IgA (90630)Indication: Gastroesophageal reflux disease without esophagitis On: :13 Request CBC WITH MANUAL DIFF (03221)Indication: Preoperative examination On: :42 Request METABOLIC PANEL, COMPREHENSIVE (37853)Indication: Preoperative examination On: :42 Request PTT (Activated Partial Thromboplastin Time) (65952)Indication: Preoperative examination On: :42 Request PT (Prothrobim Time) (07430)Indication: Preoperative examination On: :42 Request URINALYSIS, W/ MICRO (43479)Indication: Preoperative examination On: :41 Request TSH (92396)Indication: Acquired hypothyroidism On: :41 Request LIPID PANEL (07173)Indication: Other hyperlipidemia On: :41 Request ARELY CULTURE-OTHER (29662)Indication: Pharyngitis, acute On: 3-Esa-586459:30 Request ARELY CULTURE-OTHER (97349)Indication: Pharyngitis, acute On: 5-Zrg-191569:14 Request Thin prep Pap (32290)Indication: Well woman exam On: 93-Yql-07072:47 Request Thin prep Pap (17232)Indication: Well woman exam On: 5-Pms-401798:09 Request Vitamin D Hydroxy (22907)Indication: Osteopenia On: :24 Request CBC WITH MANUAL DIFF (54423)Indication: 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 On: :24 Request METABOLIC PANEL, COMPREHENSIVE (16036)Indication: 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 On: :24 Request LIPID PANEL (55923)Indication: Other hyperlipidemia On: :24 Request TSH (62252)Indication: Acquired hypothyroidism On: :23 Request Creatine Kinase Total (44707)Indication: Arthritis On: : Request METABOLIC PANEL, COMPREHENSIVE (13789)Indication: Arthritis On: :05 Request CCP ANTIBODY (80934)Indication: Arthritis On: :05 Request SED RATE ERYTHROCYTE (27944)Indication: Arthritis On: :05 Request C-REACTIVE PROTEIN (11310)Indication: Arthritis On: :05 Request JACQUI (ANTINUCLEAR ANTIBODY) (64718)Indication: Arthritis On: :05 Request RHEUMATOID FACTOR-QUANT (07888)Indication: Arthritis On: :05 Request TSH (07899)Indication: Acquired hypothyroidism On: :06 Request HEPATIC FUNCTION PANEL (74961)Indication: Other hyperlipidemia On: : Request LIPID PANEL (18854)Indication: Other hyperlipidemia On: : Request Vitamin D Hydroxy (75397)Indication: Osteopenia On: :27 Request LIPID PANEL (39541)Indication: Other hyperlipidemia On: :22 Request HEPATIC FUNCTION PANEL (35318)Indication: Other hyperlipidemia On: :21 Request URINE ARELY CULTURE (SPRING COL COUNT) (36970)Indication: Abnormal urine On: :19 Request TSH (30392)Indication: Acquired hypothyroidism On: :18 Request URINALYSIS, W/ MICRO (76082)Indication: Low back pain On: :50 Request T3, FREE (TRIDOTHYRONINE) (93054)Indication: Acquired hypothyroidism On: :50 Request T4, FREE (THYROXINE) (89905)Indication: Acquired hypothyroidism On: :50 Request CBC WITH MANUAL DIFF (49691)Indication: Low back pain On: :49 Request METABOLIC PANEL, COMPREHENSIVE (95014)Indication: Family history of diabetes mellitus On: :49 Request LIPID PANEL (88661)Indication: Other hyperlipidemia On: :47 Request TSH (02557)Indication: Acquired hypothyroidism On: :47 Request Planned Encounters [...] Martha A Fast DO, Martha A Comments: [id number] arm, SCprefilled syringeMLONG ELECTROCARDIOGRAM, COMPLETE (ECG) On: 05-Dec-2017 Intent (01274)By: Kevin SAMUEL Martha A Fast Comments: ekg showed normal sinus rhythym, normal axis, no acute st/t wave changes sinus ariana DO, Martha A MRI OF BRAIN WITH AND WITHOUT On: 01-Nov-2017 Intent CONTRAST (69722)By: Martha Brown DO Comments: dont schedule on or A Kevin SAMUEL Martha A Flu Vaccine (Quadrivalent) 34175Yi: On: 01-Nov-2017 Intent Kevin DO, Martha A Fast DO, Martha A Comments: Lot: [id number]: 08/26/18Site: L dltd, IMDose prefilled syringegiven by: Kahlil reviewed and ABN signed Radiology - Forearm - RightBy: Fast On: 28-Jun-2017 Intent DO, Martha A Fast DO, Martha A DEXA SCAN AXIAL SKELETON (46307)By: On: 28-Jun-2017 Intent Fast DO, Martha A Fast DO, Martha A Comments: august SCREENING DIGITAL TOMOSYNTHESIS OF On: 28-Jun-2017 Intent BREAST (89958)By: Kevin SAMUEL Martha A Comments: august Fast DO, Martha A Radiology - Wrist - RightBy: Fast On: 28-Jun-2017 Intent DO, Martha A Fast DO, Martha A Comments: fall with outstrestched hand CT - Brain/Head (Without On: 28-Jun-2017 Intent Contrast)By: Kevin SAMUEL Martha A Kevni Comments: stat- fall down steps now headache DO, Martha A INJECTION, PROLIA ([id number])By: Fast On: 18-May-2017 Intent DO, Martha A Fast DO, Martha A Comments: prolia injection 1 prefilled syringelot: [id number]: 05/2019RA sub-qAD 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 See MCM: 2048) ([id number])By: Fast DO, Martha A Fast DO, Martha A INFUSION, NORMAL SALINE SOLUTION , On: 21-Apr-2017 Intent 1000 CC (Special Coverage Comments: Site:[address] [place] [address] [facility] Number of attemps:1Tolerated:wellLot/exp of NS [id number] 08/15Medication?: noMLONG, ENTRY LEVEL SALES CONSULTANT Instructions Apply. See MCM: 2048) (J7030)By: Fast DO, Martha A Fast DO, Martha A CHEST XRAY, PA & LATERAL (08584)By: On: 21-Apr-2017 Intent Fast DO, Martha A Fast DO, Martha A Comments: 3 weeks Ultrasound - ThyroidBy: Kevin DO, On: 07-Mar-2017 Intent Martha A Fast DO, Martha A PNEUM VAC ADLT/IMUMNOSPR, SBC/INTRM On: 20-Dec-2016 Intent (55591)By: Martha Brown DO Comments: pnuemovax prefilled syringe injectionlot: [id number]: 04/2018L DELT IMpt tolerated wellAD ENTRY LEVEL SALES CONSULTANT DO, Martha A Flu Vaccine (Quadrivalent) 05302Cr: On: 30-Nov-2016 Intent Kevin DO, Martha A Fast DO, Martha A Comments: lot: [id number]: 08/14/17ite/route: L michael, IMamt: 0.5mlVIS and ABN signed when applicableChelsea, ROLL COATING MACHINE OPERATOR ELECTROCARDIOGRAM, COMPLETE (ECG) On: 29-Nov-2016 Intent (17398)By: Martha Brown DO Comments: ekg showed normal sinus rhythym, normal axis, no acute st/t wave changes DO, Martha A INJECTION, PROLIA (J0897)By: Kevin On: 04-Nov-2016 Intent DO Martha A Fast DO, Martha A Comments: Lot:[id number]:08/14/17Dose:0.5mLRoute:IMSite:L DltdGiven By:JKMVIS signed Nuclear Stress Test/Stress On: 01-Sep-2016 Intent SPECT/TreadmillBy: Martha Brown DO DO, Martha A Aerosol Treatment (34216)By: Kevin On: 08-Aug-2016 Intent DO Martha A Fast DO, Martha A SCREENING DIGITAL TOMOSYNTHESIS OF On: 08-Aug-2016 Intent BREAST (74612)By: Martha Brown DO Comments: end july Fran [...] Martha A Fast DO, Martha A Comments: Lot:[id number]:02/13Dose:60mLRoute:sub qSite: l armGiven By:ZACH signed MRI OF BRAIN WITH AND WITHOUT On: 08-Feb-2016 Intent CONTRAST (04121)By: Martha Brown DO Comments: try to get this week- A Fast , Martha A Solu- Medrol Injection, 125mg On: 16-Dec-2015 Intent ([id number])By: Martha Brown DO A Kevin Comments: Lot:[id number]:04/2018Dose:125mgRoute:imSite:edita hipGiven By:ZACH signed DO, Martha A Aerosol Treatment ([id number])By: Kevin On: 16-Dec-2015 Intent DO, Martha A Fast DO, Martha A Flu Vaccine (Quadrivalent) 34202Gg: On: 30-Nov-2015 Intent Fast DO, Martha A Fast DO, Martha A Comments: Lot:[id number]:08/26/16Dose:0.5mLRoute:IMSite:Deja DltdGiven By:ZACH signed MRI LUMBAR SPINE W/O CONTRAST On: 01-Sep-2015 Intent ([id number])By: Martha Brown DO A Kevin Comments: hx of spine surgery- has done pt and pain management and nsaids- getting weak ehl right DO, Martha A DEXA SCAN AXIAL SKELETON ([id number])By: On: 06-Jul-2015 Intent Fast DO, Martha A Fast DO, Martha A MAMMOGRAM, SCREENING, BOTH BREAST On: 06-Jul-2015 Intent ([id number])By: Martha Brown DO, DO, Martha A Rocephon Injection, 1 Gm On: 06-Mar-2015 Intent ([id number])By: Martha Brown DO Comments: lot: [id number]: 04/27/17ite/route: RGM/IMamt: 1GVIS signed when applicableMILLIE Crespo DO Martha A Radiology - ChestBy: Nicole MANAGED CARE MANAGER, On: 09-Feb-2015 Intent Abby Clemente Flu Vaccine (Quadrivalent) 85124Hh: On: 10-Dec-2014 Intent Martha Brown DO, DO, Martha A Comments: Lot #:[id number] date: 07/2015Amount given:prefilled syringeSite given:L Dltd, IMGiven by: WINNIE Hart and ABN signed ADMINISTRATION OF INFLUENZA VIRUS On: 10-Dec-2014 Intent VACCINE ([id number])By: Martha Brown DO, DO, Martha A BILATERAL MAMMOGRAMS ([id number])By: On: 17-Jun-2014 Intent Martha Brown DO, DO, Martha A Comments: screening FLU VAC, SPLIT, >3 YEARS, INTRAMUSC On: 02-Dec-2013 Intent ([id number])By: Martha Brown DO Comments: Lot #:[id number] date:10/2015Amount given:0.5mlRoute: IMSite given: left deltoidGiven by: GARETT Washington DO, Debra A IMMUNIZ ADMNIN, 1 VAC, SNGL/COMBO On: 02-Dec-2013 Intent ([id number])By: Visit, Nurse CT OF RIGHT HIP WITH CONTRAST On: 30-Sep-2013 Intent ([id number])By: Martha Brown DO Comments: with or without [...] A Fast DO, Martha A Pulse Oximetry ([id number])By: Fast DO, On: 14-May-2013 Intent Martha A Fast DO, Martha A Comments: 98 Spirometry ([id number])By: Kevin DO, On: 14-May-2013 Intent Martha A [...] SPLIT, >3 YEARS, INTRAMUSC On: 28-Jan-2013 Intent ([id number])By: Fast DO, Martha A Fast Comments: Lot #:[id number] date:mount given:0.5mlRoute: IMSite given: L dltdVIS and ABN signedGiven by: GARETT Washington DO, Martha A IMMUNIZ ADMNIN, 1 VAC, SNGL/COMBO On: 28-Jan-2013 Intent ([id number])By: Kevin DO, Martha A Fast DO, Martha [...] Martha A Fast DO, Martha A Spirometry ([id number])By: Fast DO, On: 28-May-2012 Intent Martha A Fast DO, Martha A Comments: good effort and curve mild obst Pulse Oximetry ([id number])By: Fast DO, On: 28-May-2012 Intent Martha A Fast DO, Martha A Comments: 98 Breast Screening - BilateralBy: On: 28-May-2012 Intent Fast DO, Mratha A Fast DO, Martha A Eprescribed prescriptions On: 28-May-2012 Intent ([id number])By: Patito Tineo Eprescribed prescriptions On: 27-Apr-2012 Intent ([id number])By: Patito Tineo Eprescribed prescriptions On: 13-Feb-2012 Intent ([id number])By: Fast DO, Martha A Fast DO, Martha A Eprescribed prescriptions On: 30-Jan-2012 Intent ([id number])By: Patito Tineo FLU VAC, SPLIT, >3 YEARS, INTRAMUSC On: 09-Dec-2011 Intent ([id number])By: Patito Tineo Comments: Lot #[id number]-9/30/13Site-left deltoidgiven by: Angela Vincent, [employer]SULTANT IMMUNIZ ADMNIN, 1 VAC, SNGL/COMBO On: 09-Dec-2011 Intent ([id number])By: Patito Tineo Nuclear Stress Test/Stress On: 22-Nov-2011 [...] A Comments: with 12mm tablet Pulse Oximetry ([id number])By: Fast DO, On: 28-Jun-2011 Intent Martha A Fast DO, Martha A Comments: 98 Radiology - Chest- PA and LatBy: On: 28-Jun-2011 Intent Fast DO, Martha A Fast DO, Martha A Comments: stat call wet read Spirometry ([id number])By: Fast DO, On: 28-Jun-2011 Intent Martha A Fast DO, Martha A Comments: good effort and curve normal Radiology - ChestBy: Fast DO, Martha On: 07-Jun-2011 Intent A Fast DO, Martha A Comments: PA/LAT (do in 1 month) Eprescribed prescriptions On: 07-Jun-2011 Intent ([id number])By: Fast DO, Martha A Fast DO, Martha A Pulse Oximetry ([id number])By: Fast DO, On: 07-Jun-2011 Intent Martha A Fast DO, Martha A Comments: 95 Radiology - Chest- PA and LatBy: On: 07-Jun-2011 Intent Fast DO, Martha A Fast DO, Martha A Comments: call wet read MAMMOGRAM, SCREENING, BOTH BREASTS On: 20-May-2011 Intent ([id number])By: Fast DO, Martha A Fast DO, Martha A Ultrasound - ThyroidBy: Fast DO, On: 27-Apr-2011 Intent Martha A Fast DO, Martha A TDAP VACCINE >7 IM ([id number])By: On: 27-Apr-2011 Intent Patito Tineo Comments: 2009 FLU VAC, SPLIT, >3 YEARS, INTRAMUSC On: 21-Dec-2010 Intent ([id number])By: Patito Tineo Comments: Lot #:[id number] date:mount given:0.5mlRoute: IMSite given:left deltGiven by: GARETT Washington IMMUNIZ ADMNIN, 1 VAC, SNGL/COMBO On: 21-Dec-2010 Intent ([id number])By: Patito Tineo EKG ([id number])By: Melissa SLOAN Cynthia On: 27-Oct-2010 Intent Comments: [...] BONE DENSITY, AXIAL SKELETON On: 04-May-2010 Intent ([id number])By: Patito Tineo MAMMOGRAM, SCREENING, BOTH BREASTS On: 04-May-2010 Intent ([id number])By: Patito Tineo Clinical Breast Examination On: 04-May-2010 Intent ([id number])By: Patito Tineo Nuclear Medicine - Bone ScanBy: On: 02-Apr-2010 Intent Fast DO, Martha A Fast DO, Martha A Comments: full body- has neck pain and arthralgias and abnormal sacroiliac joint on xray-w ith focal sclerosis MAMMOGRAM, SCREENING, BOTH BREASTS On: 02-Apr-2010 Intent ([id number])By: Fast DO, Martha A Fast Comments: due end of may DO, Martha A Ultrasound - ThyroidBy: Noman, On: 23-Dec-2009 Intent Patito IMMUNIZ ADMNIN, 1 VAC, SNGL/COMBO On: 23-Dec-2009 Intent ([id number])By: Fast DO, Martha A Fast Comments: lot # [id number] 4Pexp- [id number]- 0.5ML tolerated well Mari SHANE DO, Martha A FLU VAC, SPLIT, >3 YEARS, INTRAMUSC On: 23-Dec-2009 Intent ([id number])By: Fast DO, Martha A Fast DO, Martha A Spirometry ([id number])By: Fast DO, On: 26-Aug-2009 Intent Martha A Fast DO, Martha A Comments: good effort and curve normal Pulse Oximetry ([id number])By: Fast DO, On: 26-Aug-2009 Intent Martha A Fast DO, Martha A Comments: 99 Radiology - Chest- PA and LatBy: On: 26-Aug-2009 Intent Fast DO, Martha A Fast DO, Martha A EKG ([id number])By: Fast DO, Martha A On: 02-Jul-2009 Intent [...] Other hyperlipidemia : DISCONTINUED - LIPID PANEL (17727) Indication: Other hyperlipidemia BMI between 19-24,adult : [...] is good- she not go back to [facility] as she wants to wait until [...] - did End: 05-Sep-2016 9:46 get to [facility]- supposed to see endo doesnt think thyroid right- and doesnt have ms- seeing urolgoist oct 26- - saw neuro at [facility]- - they think white matter partly migrainous- they looked at her mris - they going to send to photoengraving helper as well- the valium reallyhelping her sleep [...] to treat her until see neuro at [facility]- specialist to help determine- he increased [...] visual acuity (yearly). Note for Physical exam: [facility] Wellness Physical- she is seeing Dr Wilburn on for her back and gettig thoracic mri and sa w painmanagement stillnot comfortable- tried fosamax in past gaver her terrible side effects gi upset , [ADDITIONAL REASON] Follow up, Laboratory Test Results - Date: (08/2015- [facility] labs). Encounter Diagnosis: BMI between 19-24,adult, [...] Note for Hip problem: Pt was in [place] last week and slipped on wet ceramic [...] - she saw neurologist dr howard in [place]- he did tilt table table test and [...] no new complaints- seeing pain management at [facility] has good energy level and is [...] back in 2005- same surgeon- doing at [facility]- she saw Alanajay jay who told ehr [...] able to do more- and is joining [employer] to keep doing the exercises -- bp [...] Dr Gonzalez-- this person now moving to [place]- mentally the aquatherapy is helpi ng- physically [...] (610.2), Hip bursitis 726.5 [facility] CenterZURI LAW; a guarantor
--- OUTSIDE RECORDS SUMMARY | 2018-05-18 08:30 | XMS RPT_ITS ---
:1960 Author Organization OHIP Support Name Relationship Address Phone ZURI LAW Unavailable [address] + [place] [address] UE Unavailable Unavailable Unavailable ZURI LAW Unavailable [address] + [place] [address] UE Unavailable Unavailable Unavailable ZURI LAW Unavailable [address] + [place] [address] UE Unavailable Unavailable Unavailable ZURI LAW Unavailable [address] + [place] [address] UE Unavailable Unavailable Unavailable ZURI LAW Unavailable [address] + [place] [address] UE Unavailable Unavailable Unavailable ZURI LAW Unavailable [address] + [place] [address] UE Unavailable Unavailable Unavailable ZURI LAW Unavailable [address] + [place] [address] UE Unavailable Unavailable Unavailable ZURI LAW Unavailable [address] + [place] [address] UE Unavailable Unavailable Unavailable ZURI LAW Unavailable [address] + [place] [address] UE Unavailable Unavailable Unavailable ZURI LAW Unavailable [address] + [place] [address] UE Unavailable Unavailable Unavailable ZURI LAW Unavailable [address] + [place] [address] UE Unavailable Unavailable Unavailable ZURI LAW Unavailable [address] + [place] [address] UE Unavailable Unavailable Unavailable ANI ZURI Unavailable [address] + [place] [address] UE Unavailable Unavailable Unavailable ANI ZURI Unavailable [address] + [place] [address] UE Unavailable Unavailable Unavailable ANI ZURI Unavailable [address] + [place] [address] UE Unavailable Unavailable Unavailable ANI ZURI Unavailable [address] + [place] [address] UE Unavailable Unavailable Unavailable ANI ZURI Unavailable [address] + [place] [address] UE Unavailable Unavailable Unavailable Care Team Providers Name Role Phone EUSEBIO BRASWELL JR Attending Unavailable FAST, ROSAMARIA A Referring Unavailable ALEX SURESH (OD) Attending Unavailable ALEX SURESH (OD) Referring Unavailable KT, ALICE Attending Unavailable ERICKA CARTERLA Referring Unavailable CARTER, ALICE Referring Unavailable FAST, ROSAMARIA A Referring Unavailable LUNA GARCIA Attending Unavailable ALEX SURESH (OD) Referring Unavailable LUX WALDRON S Admitting Unavailable LUX WALDRON S Attending Unavailable Fast DO, Rosamaria A Attending Unavailable Fast DO, Rosamaria A Referring Unavailable Fast DO, Rosamaria A Consulting Unavailable Chikis Ashley Attending Unavailable Chikis Ashley Referring Unavailable Fast, Rosamaria Primary Care Unavailable Chikis Ashley Attending Unavailable Chikis Ashley Referring Unavailable Fast, Rosamaria Primary Care Unavailable Prebish, Maddie ELECTROCARDIOGRAPHIC TECHNICIAN-C Attending Unavailable Prebish, Maddie ELECTROCARDIOGRAPHIC TECHNICIAN-C Referring Unavailable Fast, Rosamaria Primary Care Unavailable Fast, Rosamaria Attending Unavailable Fast, Rosamaria Referring Unavailable Fast, Rosamaria Primary Care Unavailable Fast, Rosamaria Attending Unavailable Fast, Rosamaria Referring Unavailable Fast, Rosamaria Primary Care Unavailable Conrado Nolasco Attending Unavailable Fast, Rosamaria Referring Unavailable Fast, Rosamaria Primary Care Unavailable Fast, Rosamaria Consulting Unavailable Fast, Rosamaria Primary Care Unavailable Dusty Dumont Attending Unavailable Fast, Rosamaria Attending Unavailable Fast, Rosamaria Primary Care Unavailable Fast, Rosamaria Attending Unavailable Fast, Rosamaria Primary Care Unavailable Fast, Rosamaria Attending Unavailable Fast, Rosamaria Primary Care Unavailable Fast, Rosamaria Attending Unavailable Fast, Rosamaria Referring Unavailable Fast, Rosamaria Primary Care Unavailable Fast, Rosamaria Attending Unavailable Fast, Rosamaria Referring Unavailable Fast, Rosamaria Primary Care Unavailable Fast, Rosamaria Attending Unavailable Fast, Rosamaria Primary Care Unavailable Fast, Rosamaria Attending Unavailable Fast, Rosamaria Referring Unavailable Fast, Rosamaria Primary Care Unavailable Casiano, Joshua Attending Unavailable Fast, Rosamaria Referring Unavailable Casiano, Joshua Attending Unavailable Casiano, Joshua Referring Unavailable Fast, Rosamaria Primary Care Unavailable Fast, Rosamaria Attending Unavailable Fast, Rosamaria Referring Unavailable Fast, Rosamaria Primary Care Unavailable PROBLEMS PROBLEMS DATE TYPE CONDITION / CODE ATTENDING STATUS SOURCE 01/09/2018 Unknown R10.9 - Unspecified Fast, Rosamaria Active [facility] abdominal pain / [facility] R10.9(ICD-10) Hospital Repository 01/01/2018 Unknown R30.0 - Dysuria / Joshua Casiano Active [facility] R30.0(ICD-10) [facility] Repository 10/28/2017 Unknown R73.01 - Impaired Fast, Rosamaria Active [facility] fasting glucose / Community R73.01(ICD-10) Hospital Repository 10/28/2017 Unknown E78.4 - Other Fast, Rosamaria Active [facility] hyperlipidemia / Community E78.4(ICD-10) Hospital Repository 10/28/2017 Unknown E55.9 - Vitamin D Fast, Rosamaria Active [place] deficiency, Community unspecified / Hospital E55.9(ICD-10) Repository 10/28/2017 Unknown R51 - Headache / Fast, Rosamaria Active [facility] R51(ICD-10) [facility] Repository 01/11/2016 Active Hypothyroidism, NA Active [facility] unspecified / Clinic Main E03.9(ICD-10) [place] Repository 04/03/2012 Active 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 / Clinic Main E27.49(ICD-10) [place] Repository 06/06/2017 Active Radiculopathy, LUX WALDRON Active [facility] cervical region / S Clinic Other M54.12(ICD-10) [place] Repository 07/28/2017 Unknown M48.061 - Spinal Prebish, Maddie Active [place] stenosis, lumbar ELECTROCARDIOGRAPHIC TECHNICIAN-C Community region without Hospital neurogenic Repository claudication / M48.061(ICD-10) 05/01/2017 Unknown J18.1 - Lobar Fast, Rosamaria Active [place] pneumonia, Community unspecified organism Hospital / J18.1(ICD-10) Repository PROCEDURES PROCEDURES No Procedure Records FoundRESULTS RESULTS LIMITED CHEST CT Observed: 03/21/2018 Status: F Source: [place] W/CCTA 12:51 PM [facility] Imaging Services [address] [place] [address] w/CCTA MR#: [id number] Acct: [id number] Name: MARCE LAW Rep #: [id number] : 1960 F 57 From: Barrera Nguyen MD PCP: Rosamaria Brown DO Status: REG CLI Study: Limited Chest CT w/CCTA Date of Exam: 03/21/18 Exam# [id number] Ordering Dr: Rosamaria Brown DO STUDY: CT CHEST WITHOUT CONTRAST REASON FOR EXAM: Female, 57 years old. Calcium scoring examination. Radiology over read examination. RADIATION DOSAGE (If Supplied By Facility): CTDIvol = ( 12.19 ) mGy, DLP = ( 195.04 ) mGycm TECHNIQUE: Transaxial imaging was performed without the administration of intravenous contrast material. Individualized dose optimization techniques were used for this CT. COMPARISON: None. FINDINGS: Mild degree of increased markings at the lung bases suggestive of scarring. There is no demonstrated pleural abnormality. Small pericardial effusion. There are multiple small lymph nodes within the mediastinum, which are normal in size and morphology most compatible with reactive lymph hyperplasia. Calcified right hilar lymph nodes. Normal unenhanced pulmonary arteries. Normal aorta arch and descending thoracic aorta. Normal osseous structures. There is no demonstrated abnormality of the visualized upper abdomen. CT/Limited Chest CT w/CCTA IMPRESSION: Small pericardial effusion. Findings suggest a mild bibasilar scarring. Electronically Signed: Barrera Nguyen MD at 16:03 EST , Service support , CC: Rosamaria Brown DO Packaging Supervisor: Signed CBC W/DIFF, AUTOMATED Collected: 03/02/2018 Status: F Source: [place] 11:12 AM [facility] [place] TYPE CODE TESTS RESULT OUT OF RANGE REFERENCE UNITS LAB L100.1000 4.4-11.0 K/mm3 Normal WBC 8.2 LAB L100.1200 4.2-5.4 M/mm3 Low RBC 3.83 LAB L100.1300 12.0-15.0 g/dl Normal HGB 12.4 LAB L100.1400 37-47 % Normal HCT 37.6 LAB L100.1500 81-99 fL Normal MCV 98.2 LAB L100.1600 27.0-32.0 pg High MCH 32.4 LAB L100.1700 32-36 g/gl Normal MCHC 33.0 LAB L100.1810 11.6-14.6 % Normal RDW CV 13.2 LAB L100.1820 35.1-43.9 fl High RDW SD 46.8 LAB L100.1900 150-450 K/mm3 Normal PLT 243 LAB L100.2000 6.2-12.0 fl Normal MPV 10.2 LAB L100.2100 47-70 % Normal NEUT% 69.2 LAB L100.2200 19-41 % Normal LY% 21.0 LAB L100.2300 0-10 % Normal MONO% 9.0 LAB L100.2400 0-5 % Normal EO% 0.5 LAB L100.2500 0-1 % Normal BASO% 0.2 LAB L100.2550 0.0-0.9 % Normal IM GRAN % 0.100 Result Comment: IG% - Immature Granulocytes (promyelocytes, myelocytes and metamyelocytes) > 1% indicates that a LEFT SHIFT is Present. LAB L100.2620 2.0-7.7 X10 3/uL Normal Absolute Neut 5.6 LAB L100.2720 0.83-4.51 X10 3/ul Normal Absolute Lymph 1.71 Performed By: #### L100.0100 #### [facility] [address] [place], [address] COMPREHENSIVE METABOLIC Collected: 03/02/2018 Status: F Source: [place] PROFIL 11:12 AM [facility] Order Comment: ADD TSH ON TO 0104:C171 LOCATION:[facility]4F Has Patient had X-rays with Contrast this admission? N Is Patient on Heparin? N TYPE CODE TESTS RESULT OUT OF RANGE REFERENCE UNITS LAB L501.0100 74-106 mg/dL Normal GLU 98 Result Comment: Please note revised GLUCOSE reference range effective 2017. LAB L501.1000 7-18 mg/dL Normal BUN 10 LAB L501.1100 0.55-1.02 mg/dL Normal CREAT,SERUM 0.82 Result Comment: The validity of the calculated GFR AND GFRAA in patients over 70 years has not been determined. Clinical correlation is essential. LAB L501.1110 >60 mL/min Normal EST GFR 77 Result Comment: Non- GFR Calc LAB L501.1115 >60 mL/min Normal EST GFR - AA 93 Result Comment: GFR Calc LAB L501.1300 10-20 RATIO Normal BUN/CRE 12.2 LAB L501.1500 6.4-8.2 g/dL T Normal PROT 7.1 LAB L501.1800 3.2-5.0 g/dL Normal ALB 4.0 LAB L501.1950 2.2-4.2 g/dL Normal GLOB 3.1 LAB L501.2000 0.9-2.4 RATIO Normal A/G 1.3 LAB L501.2200 8.5-10.1 mg/dL CA Normal 8.6 LAB L501.4100 15-37 U/L Low AST 14 LAB L501.4305 45-117 U/L Normal ALK P 46 LAB L501.4405 13-56 U/L Normal ALT 26 LAB L501.4600 0.20-1.00 mg/dL T Normal BILI 0.60 LAB L501.5300 136-145 mmol/L NA Normal 141 LAB L501.5600 3.5-5.1 mmol/L K Normal 3.8 LAB L501.5900 98-107 mmol/L CL Normal 107 LAB L501.6100 21.0-32.0 mmol/L Normal CO2 25.0 LAB L501.6200 5-15 Normal GAP 9 Performed By: #### L500.4050, L500.4100, L501.9520, L501.53048, L506.0400 #### [facility] [address] [place], [place], [address] LIPID PROFILE Collected: 03/02/2018 Status: F Source: [place] 11:12 AM [facility] Order Comment: ADD TSH ON TO 0104:C171 LOCATION[facility]-4-F Has Patient had X-rays with Contrast this admission? N Is Patient on Heparin? N TYPE CODE TESTS RESULT OUT OF RANGE REFERENCE UNITS LAB L501.4900 200 mg/dL Normal CHOL 163 Result Comment: <200 mg/dL Desirable 200-240 mg/dL Borderline >240 mg/dL High Risk LAB L501.5000 mg/dL Normal TRIG 75 Result Comment: The drugs N-Acetylcysteine and Metamizole may falsely depress this assay. Serum Triglycerides Reference Interval Normal <150 mg/dL Borderline high 150 - 199 mg/dL High 200 - 499 mg/dL Very High > or = 500 mg/dL LAB L501.6400 mg/dL Normal HDL 78 Result Comment: The drugs N-Acetylcysteine and Metamizole may falsely depress this assay. Reference Range HDL <40 mg/dL Low HDL Cholesterol HDL >or= 60 mg/dL High HDL Cholesterol LAB L501.6500 0-130 mg/dL Normal LDL 70 LAB L501.6600 5-40 mg/dL Normal VLDL 15 Performed By: #### L500.4050, L500.4100, L501.9520, L501.57118, L506.0400 #### [facility] [address] [place], [place], [address] THYROID STIM HORMONE Collected: 03/02/2018 Status: F Source: [place] (TSH) 11:12 AM [facility] Order Comment: ADD TSH ON TO 0104:C171 LOCATION:[facility]4-F Has Patient had X-rays with Contrast this admission? N Is Patient on Heparin? N TYPE CODE TESTS RESULT OUT OF RANGE REFERENCE UNITS LAB L501.9520 0.358-3.74 uIU/mL Low TSH 0.15 Performed By: #### L500.4050, L500.4100, L501.9520, L501.91436, L506.0400 #### [facility] [address] [place], [address] FREE T3 Collected: 03/02/2018 Status: F Source: [place] 11:12 AM [facility] Order Comment: ADD TSH ON TO 0104:C171 LOCATION:3-4-F Has Patient had X-rays with Contrast this admission? N Is Patient on Heparin? N TYPE CODE TESTS RESULT OUT OF RANGE REFERENCE UNITS LAB L501.14084 2.18-3.98 pg/mL Normal FREE T3 3.5 Performed By: #### L500.4050, L500.4100, L501.9520, L501.72973, L506.0400 #### [facility] [address] [place], [address] T4 FREE DIRECT Collected: 03/02/2018 Status: F Source: [place] 11:12 AM [facility] Order Comment: ADD TSH ON TO 0104:C171 LOCATION:3-4-F Has Patient had X-rays with Contrast this admission? N Is Patient on Heparin? N TYPE CODE TESTS RESULT OUT OF RANGE REFERENCE UNITS LAB L506.0400 0.76-1.46 ng/dL Normal T4 FREE 0.99 DIRECT Performed By: #### L500.4050, L500.4100, L501.9520, L501.96974, L506.0400 #### [facility] [address] [place], [address] HEMOGLOBIN A1C Collected: 03/02/2018 Status: F Source: [place] 11:12 AM [facility] TYPE CODE TESTS RESULT OUT OF RANGE REFERENCE UNITS LAB L501.9985 4.2-6.3 % Normal HGB A1C 5.8 Performed By: #### L501.9985 #### [facility] [address] [place], [address] ABDOMEN/PELVIS WITH Observed: 02/14/2018 Status: F Source: [place] CONTRAST 8:04 AM [facility] Imaging Services [address] [place] [address] Abdomen/Pelvis WITH Contrast MR#: [id number] Acct: [id number] Name: MARCE LAW Rep #: [id number] : 1960 F 57 From: Barrera Nguyen MD PCP: Rosamaria Brown DO Status: REG CLI Study: Abdomen/Pelvis WITH Contrast Date of Exam: 02/14/18 Exam# [id number] Ordering Dr: Chikis Ashley MD STUDY: CT ABDOMEN AND PELVIS WITH CONTRAST REASON FOR EXAM: Female, 57 years old. Gross hematuria. RADIATION DOSAGE (If Supplied By Facility): CTDIvol = ( 14.19 ) mGy, DLP = ( 584.65 ) mGycm TECHNIQUE: Transaxial images were obtained from the dome of the diaphragm to the symphysis pubis without oral contrast. 100CC ml of Isovue 300 contrast was administered. Sagittal and coronal images were reconstructed. Delayed imaging was obtained as well. Individualized dose optimization techniques were used for this CT. COMPARISON: Comparison is made with prior study dated January 08, 2018. FINDINGS: Minimal degree of bibasilar atelectasis. The visualized portions of the heart are within normal limits. Normal liver. Normal gallbladder and extrahepatic biliary system. There are multiple benign calcified granulomata of the spleen. Normal pancreas. Normal bilateral adrenal glands. Normal right kidney. Normal left kidney. Normal visualized stomach. Normal small intestine. Moderate amount of fecal material is seen throughout the colon. The patient is status post appendectomy. There is scattered atherosclerotic calcification of the abdominal aorta, without a demonstrated aneurysm. Normal inferior vena cava. Normal retroperitoneum. The bladder is empty examination. There is evidence of a cystocele. There is absence of the uterus consistent with a prior hysterectomy. Normal abdominal wall. Stable postsurgical changes at the L5-S1 level. Grade 1 anterolisthesis of L5 on S1. CT/Abdomen/Pelvis WITH Contrast IMPRESSION: Moderate amount of fecal material is colon. There is been essentially no change since prior study. Electronically Signed: Barrera Nguyen MD at 10:47 EST Tel [phone], Service support , CC: Rosamaria Brown DO; Chikis Ashley MD Packaging Supervisor: Signed PROGRESS Observed: 02/06/2018 Status: COMPLETED Source: [place] 4:36 PM [facility] REPOSITORY HNO ID: [id number] Author: Luna Garcia Service: (none) Author Type: Physician Type: Progress Notes Filed: 02/06/2018 4:38 PM Note Text: ASSESSMENT/PLAN: 1. Punctate keratitis of both eyes - ICD9: 370.21, ICD10: H16.143 (primary diagnosis) 2. Dry eye syndrome of both eyes - ICD9: 375.15, ICD10: H04.123 Current Ophthalmic Meds cycloSPORINE (RESTASIS MULTIDOSE) 0.05 % drop Use 1 Drop in eyes twice daily. 3. Vitreous floaters of both eyes - ICD9: 379.24, ICD10: H43.393 Please call the office ([phone]) immediately if you notice more flashes of light, a sudden increase in floaters, or a sudden change in vision. 4. Status post LASIK surgery of both eyes - ICD9: V45.69, ICD10: Z98.890 Monitor Luna Garcia MD I have confirmed and edited as necessary the relevant ophthalmic history, review of systems, surgical history, and ophthalmological examination findings as obtained by the ophthalmic technical staff. I have seen and examined Marce Law. I have discussed the examination findings, diagnosis, and treatment options with Marce Law and/or her family. I have also reviewed and agree with the assessment and plan as stated above and agree with all its relevant components. I gave the patient the opportunity to ask questions about the findings, diagnosis, and treatment options. ABDOMEN/PELVIS WITHOUT Observed: 01/08/2018 Status: F Source: [place] CONT 12:18 PM [facility] Imaging Services [address] [place] [address] Abdomen/Pelvis without Cont MR#: [id number] Acct: [id number] Name: MARCE LAW Rep #: [id number] : 1960 F 57 From: Barrera Nguyen MD PCP: Rosamaria Brown DO Status: REG CLI Study: Abdomen/Pelvis without Cont Date of Exam: 01/08/18 Exam# [id number] Ordering Dr: Rosamaria Brown DO STUDY: CT ABDOMEN AND PELVIS WITHOUT CONTRAST REASON FOR EXAM: Female, 57 years old. Right flank pain and hematuria. RADIATION DOSAGE (If Supplied By Facility): CTDIvol = ( 10.70 ) mGy, DLP = ( 532 ) mGycm TECHNIQUE: Transaxial images were obtained from the dome of the diaphragm to the symphysis pubis without oral contrast, and without intravenous contrast. Sagittal and coronal images were reconstructed. [...] 1.6 cm. Normal left adrenal gland. Normal right kidney. Normal left kidney. [...] laminectomy and interpedicular screw fixation at the L5-S1 level. Grade 1 anterior listhesis of L5 on S1 CT/Abdomen/Pelvis without Cont IMPRESSION: Small left adrenal adenoma. Stable small pericardial effusion. Status post hysterectomy. Cystocele. Electronically Signed: Barrera Nguyen MD at 13:09 EST Tel [phone], Service support , CC: Rosamaria Brown DO Packaging Supervisor: Signed CBC W/DIFF, AUTOMATED Collected: 01/08/2018 Status: F Source: [place] 11:56 AM [facility] TYPE CODE TESTS RESULT OUT OF RANGE REFERENCE UNITS LAB L100.1000 4.4-11.0 K/mm3 High WBC 14.0 LAB L100.1200 4.2-5.4 M/mm3 Low RBC 3.94 LAB L100.1300 12.0-15.0 g/dl Normal HGB 12.7 LAB L100.1400 37-47 % Normal HCT 39.1 LAB L100.1500 81-99 fL High MCV 99.2 LAB L100.1600 27.0-32.0 pg High MCH 32.2 LAB L100.1700 32-36 g/gl Normal MCHC 32.5 LAB L100.1810 11.6-14.6 % Normal RDW CV 13.5 LAB L100.1820 35.1-43.9 fl High RDW SD 48.7 LAB L100.1900 150-450 K/mm3 Normal PLT 304 LAB L100.2000 6.2-12.0 fl Normal MPV 10.0 LAB L100.2100 47-70 % High NEUT% 82.7 LAB L100.2200 19-41 % Low LY% 9.5 LAB L100.2300 0-10 % Normal MONO% 7.5 LAB L100.2400 0-5 % Normal EO% 0.1 LAB L100.2500 0-1 % Normal BASO% 0.1 LAB L100.2550 0.0-0.9 % Normal IM GRAN % 0.100 Result Comment: IG% - Immature Granulocytes (promyelocytes, myelocytes and metamyelocytes) > 1% indicates that a LEFT SHIFT is Present. LAB L100.2620 2.0-7.7 X10 3/uL High Absolute Neut 11.5 LAB L100.2720 0.83-4.51 X10 3/ul Normal Absolute Lymph 1.33 Performed By: #### L100.0100, L500.4050 #### [facility] [place], [address] COMPREHENSIVE METABOLIC Collected: 01/08/2018 Status: F Source: [place] PROFIL 11:56 AM [facility] TYPE CODE TESTS RESULT OUT OF RANGE REFERENCE UNITS LAB L501.0100 74-106 mg/dL Normal GLU 89 Result Comment: Please note revised GLUCOSE reference range effective 2017. LAB L501.1000 7-18 mg/dL Normal BUN 10 LAB L501.1100 0.55-1.02 mg/dL Normal CREAT,SERUM 0.82 Result Comment: The validity of the calculated GFR AND GFRAA in patients over 70 years has not been determined. Clinical correlation is essential. LAB L501.1110 >60 mL/min Normal EST GFR 77 Result Comment: Non- GFR Calc LAB L501.1115 >60 mL/min Normal EST GFR - AA 93 Result Comment: GFR Calc LAB L501.1300 10-20 RATIO Normal BUN/CRE 12.2 LAB L501.1500 6.4-8.2 g/dL T Normal PROT 7.3 LAB L501.1800 3.2-5.0 g/dL Normal ALB 4.1 LAB L501.1950 2.2-4.2 g/dL Normal GLOB 3.2 LAB L501.2000 0.9-2.4 RATIO Normal A/G 1.3 LAB L501.2200 8.5-10.1 mg/dL CA Normal 9.0 LAB L501.4100 15-37 U/L Low AST 9 LAB L501.4305 45-117 U/L Low ALK P 44 LAB L501.4405 13-56 U/L Normal ALT 21 LAB L501.4600 0.20-1.00 mg/dL T Normal BILI 0.60 LAB L501.5300 136-145 mmol/L NA Normal 140 LAB L501.5600 3.5-5.1 mmol/L K Normal 4.8 LAB L501.5900 98-107 mmol/L CL Normal 105 LAB L501.6100 21.0-32.0 mmol/L Normal CO2 26.0 LAB L501.6200 5-15 Normal GAP 9 Performed By: #### L100.0100, L500.4050 #### [facility] [address] [place], [address] URINALYSIS, COMPLETE Collected: 01/01/2018 Status: F Source: [place] 4:45 PM [facility] Order Comment: How was Urine Obtained? CLEAN CATCH TYPE CODE TESTS RESULT OUT OF RANGE REFERENCE UNITS LAB L400.3000 Yellow COLOR Normal Yellow LAB L400.3050 Clear Normal CLARITY Cloudy LAB L400.3200 Normal mg/dl Normal GLUCOSE, UR Normal LAB L400.3300 Negative mg/dL Normal BILIRUBIN URINE Negative LAB L400.3400 Negative mg/dl Normal KETONE UR Negative LAB L400.3465 1.002-1.030 Normal SP.GR. DIPSTX 1.010 LAB L400.3550 5.0 - 8.0 pH UR Normal 8.0 LAB L400.3600 Negative mg/dl High PROT 30 DIPSTX LAB L400.3700 Normal mg/dl Normal UROBILI Normal LAB L400.3750 Negative Normal NITRITE UR Negative LAB L400.3780 Negative /ul High OCCULT BLOOD-UR 250 LAB L400.3800 Negative /ul High LEUK ESTERASE 500 LAB L400.4050 0-5 /hpf WBC Normal 25-50 SEEN LAB L400.4100 0-5 /hpf > Normal RBC-UA 100 SEEN LAB L400.4150 5-10 /hpf SQUAM Normal EPI 0-5 SEEN LAB L400.4300 None Seen /hpf 1+ Normal BACTERIA LAB L400.4350 <or=2+ /hpf 0 Normal MUCUS, URINE SEEN LAB L400.4700 <or=2+ /hpf CA OX 1+ Normal CRYSTAL Performed By: #### L400.0001 #### [facility] [address] [place], [place], [address] Observed: 01/01/2018 Status: F Source: [place] CULTURE, URINE 4:45 PM [facility] Urine Culture ORGANISM 1: Presumptive E. coli [place] Count 11,000-25,000 Presumptive E. coli: REACTION Amoxacillin/Clavulanic Acid $ >=32 R Ampicillin $ >=32 R Ampicillin/Sulbactam $ >=32 R Cefazolin $ 8 S Cefepime $ <=1 S Ceftriaxone $ <=1 S Ciprofloxacin $ <=0.25 S ESBL - Ertapenim $$$ <=0.5 S Gentamicin $ >=16 R Imipenem *NF <=0.25 S Levofloxacin $ <=0.12 S Nitrofurantoin $ <=16 S Piperacillin/Tazobactam $$ 16 S Tobramycin $ 8 I Trimethoprim/Sulfametho $ >=320 R (NF) indicates non-formulary drug at [facility]. Approval by Infectious Disease Specialist required before non-formulary drugs may be ordered and/or dispensed. Performed By: #### M100.0650 #### [facility] [address] [place], [address] URGENT CARE VISIT Observed: 12/30/2017 Status: F Source: [place] REPORT 12:45 PM [facility] [place] [address] OFFICE VISIT Date of Service: 12/30/17 MR#: [id number] Acct: [id number] Name: MARCE LAW Rep #: [id number] : 1960 Provider: APPLE Casiano Age/Sex: 57/F [place] [facility] [place] Status: Signed Intake Vital [...] PO TID 12/24/15 [History Confirmed 03/15/16] Hydrocodone/Acetaminophen [Vicodin Es 7.5-300 mg Tablet] 1 tab PO Q8H PRN PRN 12/24/15 [History Confirmed 03/15/16] Levothyroxine Sodium [Synthroid] 150 mcg PO DAILY 12/24/15 [History Confirmed 03/15/16] Liothyronine Sodium [Cytomel] 5 mcg PO DAILY 12/24/15 [History Confirmed 03/15/16] Lorazepam 0.5 mg PO DAILY PRN PRN 12/24/15 [History Confirmed 03/15/16] Methotrexate Sodium [Methotrexate] 15 mg PO QWEEK 12/24/15 [History Confirmed 03/15/16] Simvastatin [Zocor] 20 mg PO QHS 12/24/15 [History Confirmed 03/15/16] busPIRone [Buspar] 20 - 30 mg PO TID PRN 12/24/15 [History Confirmed 03/15/16] Metaxalone [Skelaxin] 800 mg PO DAILY 03/15/16 [History Confirmed 03/15/16] predniSONE tablet 7.5 mg PO DAILY 03/15/16 [History Confirmed 03/15/16] levoFLOXacin tablet [Levaquin] 500 mg PO DAILY #7 tab 04/15/17 [Rx] cephalexin 500 mg tablet 500 mg PO Q12H 7 Days #14 tab 12/30/17 [Rx Confirmed 12/30/17] PFSH Social History Smoking Status: Current every day smoker HPI HPI Chief Complaint: UTI symptoms. Bleeding, cramping, urgency. Details: MARCE LAW, is a 57 F who presents [...] Positive for burning urination, painful urination, urinary urgency, urinary frequency and blood in urine; no urinary incontinence Musc Musculoskeletal: No back pain or abnormal walking Skin Skin: No rash or change in skin color Neuro Neurology: No confusion, abnormal walking or abnormal speech Psych Psychiatric: No confusion Aller/Imm Allergy/Immunologic: No wheezing Exam Const General: healthy appearing, no acute distress Orientation: oriented x3, oriented to person, oriented to place, oriented to time [facility] Head: normocephalic Ears: external ears normal, TM's normal bilaterally, EAC's normal Eyes General: appearance normal, both eyes and all related structures Conjunctivae: conjunctivae normal Sclera: sclerae normal Pupils: PERRL Neck Neck: no lymphadenopathy Thyroid: thyroid normal Chest Chest palpation AND inspection: normal inspection of the chest Resp Effort AND Inspection: normal respiratory effort, no cough, no respiratory distress Auscultation: Bilateral: Clear to Auscultation Cardio Rate: regular rate Rhythm: regular rhythm GI Inspection: normal to inspection Auscultation: normal bowel sounds Palpation: no hepatosplenomegaly, no splenomegaly, no masses Skin General: no pallor Rashes: no rashes Nails: no clubbing Neuro General: oriented x3, gait normal Extrem General: normal to inspection, no pedal edema, no calf tenderness, normal gait, no edema, no cyanosis, no clubbing, no calf tenderness bilaterally, no pedal edema Psych Mood: congruent mood Affect: normal affect Speech and Movement: speech and movement normal Assessment AND Plan 1. Acute cystitis with hematuria N30.01 Plan Detail Other Medications New: Additional Comments Patient patient was instructed to keep well-hydrated. Begin the medication as directed. If severe bleeding continues she was instructed to go to the emergency department. Follow-up with her primary care if needed. Return to the clinic if needed. Coding Level of Care Code Off vis,est,level 3 Diagnoses Acute cystitis with hematuria N30.01 Urinary tract infection type: acute cystitis Hematuria presence: with hematuria 12/30/17 1245 <Electronically signed by Joshua CHIU> Date Joshua CHIU Cosigner Signature: Date (if applicable) CC: BRAIN W/WO CONTRAST Observed: 11/06/2017 Status: F Source: [place] 11:27 AM [facility] Imaging Services [address] [place] [address] Brain W/WO Contrast MR#: [id number] Acct: [id number] Name: MARCE LAW Rep #: [id number] : 1960 F 57 From: Pedro Luis Akhtar MD PCP: Rosamaria Brown DO Status: REG CLI Study: Brain W/WO Contrast Date of Exam: 11/06/17 Exam# [id number] Ordering Dr: Rosamaria Brown DO STUDY: MRI BRAIN WITH AND WITHOUT CONTRAST REASON FOR EXAM: Female, 57 years old. Headache, confusion, off balance and vision change. TECHNIQUE: Standardized multiplanar fat and water weighted pulse sequences were obtained. 7 ml of Gadavist contrast material was administered intravenously for the contrast portion of the examination. COMPARISON: MRI brain with and without contrast 02/10/2016. FINDINGS: Normal size of the ventricles and extra-axial spaces for the patient's age. Multiple subcortical white matter T2 FLAIR hyperintensity foci and in the left periatrial white matter are chronic findings and nonspecific. They are unchanged. There are no associated mass effects. Normal bilateral basal ganglia. Normal thalami. There is no extra-axial fluid accumulation. Normal flow voids within the major intracranial circulation suggesting patency by spin echo criteria. Normal venous enhancement. There is no enhancing intra-axial or extra-axial abnormality. Normal sella turcica, pituitary gland, infundibular stalk, optic chiasm and hypothalamus. Normal tectal plate and pineal gland. Normal midbrain, cherelle and medulla. Normal cerebellum. Normal basal cisterns. Normal bilateral temporal bones. Normal bilateral internal auditory canals. No demonstrated orbital abnormality, within the constraints of a routine brain study. Normal visualized paranasal sinuses. Normal calvarium and skull base. Normal visualized soft tissue structures. Normal visualized upper cervical spine. MRI/Brain W/WO Contrast IMPRESSION: 1. No MRI evidence of acute or subacute ischemic infarct. 2. No MRI evidence of remote cortical-based ischemic infarct or old lacunar cystic infarcts. 3. Multiple chronic nonspecific white matter T2 FLAIR hyperintensity foci in both cerebral hemispheres. Possibilities include migraine related changes, small vessel disease and vasculitis. They are atypical for MS plaques. 4. No enhancing lesions intraaxially and extra-axially. 5. No interval change when compared to 02/10/2016. Electronically Signed: Pedro Luis Akhtar MD at 16:03 EDT , Service support , CC: Rosamaria Brown DO Packaging Supervisor: Signed ERYTHROCYTE SED RATE Collected: 10/28/2017 Status: F Source: [place] 1:22 PM [facility] [place] TYPE CODE TESTS RESULT OUT OF RANGE REFERENCE UNITS LAB L102.0000 0-30 mm/hr Normal SED RATE 3 Performed By: #### L101.9900, L100.0100 #### [facility] [address] [place], [place], [id number] CBC W/DIFF, AUTOMATED Collected: 10/28/2017 Status: F Source: [place] 1:22 PM [facility] [place] TYPE CODE TESTS RESULT OUT OF RANGE REFERENCE UNITS LAB L100.1000 4.4-11.0 K/mm3 Normal WBC 6.3 LAB L100.1200 4.2-5.4 M/mm3 Low RBC 3.94 LAB L100.1300 12.0-15.0 g/dl Normal HGB 13.2 LAB L100.1400 37-47 % Normal HCT 39.0 LAB L100.1500 81-99 fL Normal MCV 99.0 LAB L100.1600 27.0-32.0 pg High MCH 33.5 LAB L100.1700 32-36 g/gl Normal MCHC 33.8 LAB L100.1810 11.6-14.6 % Normal RDW CV 13.8 LAB L100.1820 35.1-43.9 fl High RDW SD 49.3 LAB L100.1900 150-450 K/mm3 Normal PLT 275 LAB L100.2000 6.2-12.0 fl Normal MPV 9.7 LAB L100.2100 47-70 % Normal NEUT% 62.3 LAB L100.2200 19-41 % Normal LY% 28.4 LAB L100.2300 0-10 % Normal MONO% 8.3 LAB L100.2400 0-5 % Normal EO% 0.3 LAB L100.2500 0-1 % Normal BASO% 0.5 LAB L100.2550 0.0-0.9 % Normal IM GRAN % 0.200 Result Comment: IG% - Immature Granulocytes (promyelocytes, myelocytes and metamyelocytes) > 1% indicates that a LEFT SHIFT is Present. LAB L100.2620 2.0-7.7 X10 3/uL Normal Absolute Neut 3.9 LAB L100.2720 0.83-4.51 X10 3/ul Normal Absolute Lymph 1.79 Performed By: #### L101.9900, L100.0100 #### [facility] [address] [place], [address] HEMOGLOBIN A1C Collected: 10/28/2017 Status: F Source: [place] 1:22 PM [facility] [place] [place] TYPE CODE TESTS RESULT OUT OF RANGE REFERENCE UNITS LAB L501.9985 4.2-6.3 % Normal HGB A1C 5.7 Performed By: #### L501.9985 #### [facility] [address] [place], [address] COMPREHENSIVE METABOLIC Collected: 10/28/2017 Status: F Source: [facility] 1:22 PM [facility] [place] TYPE CODE TESTS RESULT OUT OF RANGE REFERENCE UNITS LAB L501.0100 74-106 mg/dL Normal GLU 94 Result Comment: Please note revised GLUCOSE reference range effective 2017. LAB L501.1000 7-18 mg/dL Low BUN 6 LAB L501.1100 0.55-1.02 mg/dL Normal CREAT,SERUM 0.71 Result Comment: The validity of the calculated GFR AND GFRAA in patients over 70 years has not been determined. Clinical correlation is essential. LAB L501.1110 >60 mL/min Normal EST GFR 91 Result Comment: Non- GFR Calc LAB L501.1115 >60 mL/min Normal EST GFR - AA 110 Result Comment: GFR Calc LAB L501.1300 10-20 RATIO Low BUN/CRE 8.5 LAB L501.1500 6.4-8.2 g/dL Normal T PROT 7.6 LAB L501.1800 3.2-5.0 g/dL Normal ALB 4.3 LAB L501.1950 2.2-4.2 g/dL Normal GLOB 3.3 LAB L501.2000 0.9-2.4 RATIO Normal A/G 1.3 LAB L501.2200 8.5-10.1 mg/dL Normal CA 8.9 LAB L501.4100 15-37 U/L Normal AST 15 LAB L501.4305 45-117 U/L Normal ALK P 46 LAB L501.4405 13-56 U/L Normal ALT 20 LAB L501.4600 0.20-1.00 mg/dL Normal T BILI 0.70 LAB L501.5300 136-145 mmol/L Normal NA 138 LAB L501.5600 3.5-5.1 mmol/L Normal K 4.1 LAB L501.5900 98-107 mmol/L Normal CL 105 LAB L501.6100 21.0-32.0 mmol/L Normal CO2 25.0 LAB L501.6200 5-15 Normal GAP 8 Performed By: #### L500.4050, L500.4100, L501.6710 #### [facility] [address] [facility] [place], [place], [id number] LIPID PROFILE Collected: 10/28/2017 Status: F Source: [place] 1:22 PM [facility] [place] TYPE CODE TESTS RESULT OUT OF RANGE REFERENCE UNITS LAB L501.4900 200 mg/dL Normal CHOL 200 Result Comment: <200 mg/dL Desirable 200-240 mg/dL Borderline >240 mg/dL High Risk LAB L501.5000 mg/dL Normal TRIG 106 Result Comment: The drugs N-Acetylcysteine and Metamizole may falsely depress this assay. Serum Triglycerides Reference Interval Normal <150 mg/dL Borderline high 150 - 199 mg/dL High 200 - 499 mg/dL Very High > or = 500 mg/dL LAB L501.6400 mg/dL Normal HDL 77 Result Comment: The drugs N-Acetylcysteine and Metamizole may falsely depress this assay. Reference Range HDL <40 mg/dL Low HDL Cholesterol HDL >or= 60 mg/dL High HDL Cholesterol LAB L501.6500 0-130 mg/dL Normal LDL 102 LAB L501.6600 5-40 mg/dL Normal VLDL 21 Performed By: #### L500.4050, L500.4100, L501.6710 #### [facility] [address] [facility] [place], [place], [id number] CRP Collected: 10/28/2017 Status: F Source: [place] 1:22 PM [facility] [place] TYPE CODE TESTS RESULT OUT OF RANGE REFERENCE UNITS LAB L501.6710 0.0-3.0 mg/L Normal < 2.90 C-REACTIVE PROT Result Comment: C-Reactive Protein (CRP) provides useful information for the diagnosis, therapy and monitoring of inflammatory processes and associated diseases. For the evaluation of Relative Risk for Cardiovascular Disease, a High Sensitivity CRP (HSCRP) should be ordered. Performed By: #### L500.4050, L500.4100, L501.6710 #### [facility] [address] [place], [address] VITAMIN D,25 HYDROXY Collected: 10/28/2017 Status: F Source: [place] 1:22 PM [facility] [place] TYPE CODE TESTS RESULT OUT OF RANGE REFERENCE UNITS LAB L506.1000 29.95-100.01 ng/mL Normal Vitamin D 36.0 25-OH Result Comment: Vitamin D 25(OH) Status Range Deficiency <20 ng/mL (50nmol/L) Insuffciency 20 - 30 ng/mL (50 - 75 nmol/L) Sufficiency 30 - 100 ng/mL (75 - 250 nmol/L) Toxicity >100 ng/mL (>250 nmol/L) Performed By: #### L506.1000 #### [facility] [address] [place], [address] SCREENING MAMM (CAD), Observed: 08/31/2017 Status: F Source: [place] 12:56 PM [facility] Imaging Services [address] [place] [address] SCREENING MAMM (CAD), BILAT MR#: [id number] Acct: [id number] Name: MARCE LAW Rep #: [id number] : 1960 F 57 From: Barrera Nguyen MD PCP: Rosamaria Brown DO Status: GHADA CLI Study: SCREENING MAMM (CAD), BILAT Date of Exam: 08/31/17 Exam# [id number] Ordering Dr: Rosamaria Brown DO MAMMOGRAPHY - BILATERAL SCREENING REASON [...] Mammography with Computer Added Detection was performed. COMPARISON: Comparison is made with prior study dated August 29, 2016 and August 27, 2015. FINDINGS: Breast Composition: There are scattered areas of fibroglandular density. There are no dominant masses or suspicious calcifications. A tissue clip marker is once again seen in the upper deep lateral portion of the left breast. No other significant abnormalities are identified. There has been no significant change since the prior study. BI/SCREENING MAMM (CAD), BILAT IMPRESSION: Stable bilateral screening mammogram. Yearly follow-up mammogram recommended. (A) ASSESSMENT CATEGORY: BIRADS Category 2: Benign. A letter regarding these results will be sent to the patient by the facility within 30 days. Approximately 10% of breast cancers are not detected by mammography. A normal mammogram should not delay biopsy of a clinically suspicious abnormality. [id number] Electronically Signed: Barrera Nguyen MD at 14:24 EDT Tel [phone], Service support , CC: Rosamaria Brown DO Packaging Supervisor: Signed DEXA BONE DENSITY Observed: 08/31/2017 Status: F Source: [place] STUDY 12:39 PM [facility] [place] Imaging Services [facility] [place] [address] Dexa Bone Density Study MR#: [id number] Acct: [id number] Name: MARCE LAW Rep #: [id number] : 1960 F 57 From: Barrera Nguyen MD PCP: Rosamaria Brown DO Status: REG CLI Study: Dexa Bone Density Study Date of Exam: 08/31/17 Exam# [id number] Ordering Dr: Rosamaria Brown DO STUDY: DUAL ENERGY X-RAY ABSORPTIOMETRY / DXA REASON FOR EXAM: Female, 57 years old. The patient is postmenopausal. Loss of height. TECHNIQUE: Bone Mineral Density (BMD) measurements of lumbar spine and right hip were obtained. COMPARISON: Comparison is made with prior study dated August 27, 2015. FINDINGS: Lumbar Spine (L1-L4): g/cm2 (0.957) / T-score (-1.9) / Z-score (-1.1) Findings are suggestive of osteopenia with a moderate fracture risk. Left Femur Total: g/cm2 (0.650) / T-score (-2.8) / Z- score (-2.2) Left Femoral Neck: g/cm2 (0.644) / T-score (-2.8) / Z- score (-1.8) The T-Scores on the most recent prior examination were: Lumbar Spine (L1-L4): There has been improvement of bone density since the previous examination. Left Femur Total: which represents an improvement of 8.2%. BD/Dexa Bone Density Study IMPRESSION: The patient is considered osteoporotic as outlined below according to World Tod Organization (WHO) criteria with a high fracture risk. There has been improvement of bone density since the previous examination. Reference Information: The T-score is the number of standard deviations above or below the standard which is normal for young adults at their peak bone mineral density. The World Health Organization (WHO) interprets the T-scores as follows: Above -1 Normal bone density Between -1 [...] National Osteoporosis Foundation http://www.nof.org Electronically Signed: Barrera Nguyen MD at 15:16 EDT Tel [phone], Service support , CC: Rosamaria Brown DO Packaging Supervisor: Signed PT D/C SUMMARY (1) Observed: 07/27/2017 Status: F Source: [place] 5:39 PM [facility] [place] [place] [place] [address] Fax REHABILITATION SERVICES DISCHARGE SUMMARY MR#: [id number] Acct: [id number] Name: MARCE LAW Rep #: [id number] : 1960 57 From: Lux Miller PT, Cert. T, OCS Referring DrIfeanyi: Maddie Fernandezsegundo Status: REG RCR Insurance: [facility] SELF PAY INSURANCE HP - PT D/C Summary It has been my pleasure to treat MARCE LAW under orders from THOR Ridley, for the diagnosis of L-IVDD,L-STENOSIS,L-SPONDYLOPATHY,MYALGIA for a total of 8 visit(s). Discharge Date: Please see the following information for a summary of their discharge status. - Subjective Subjective: Some better today .Plan to SEE surgoen for mylogram - Pain Bilateral Neck Pain Intensity (Out of 10): 5 Bilateral Shoulder Pain Intensity (Out of 10): 5 Bilateral Buttocks Pain Intensity (Out of 10): 5 Bilateral Lower Extremity Pain Intensity (Out of 10): 5 - Objective Objective/Function: POSTURE: MILD FOWARD HEAD ,DECREASE LORDOSIS. GAIT: SYLVIA BRITTANY. MMT: QUADS/HAMS 4/5,HIP 4-/5,BUE GROSSLY 4/5 EXCEPT SHOULLDERS 4-/5. CERVICAL ROM: MOD LOSS. LUMBAR ROM: MOD LOSS - Goals Goal 1:: Independant with HEP as bunny Goal Progress: Progressing Goal 2:: Independant with posture for ADL'S Goal Progress: Progressing Goal 3:: Decrease cervical and lumbar pain by 40% or greater to improve function. Goal Progress: Progressing Goal 4:: Increase strength BUE AND BLE to 4/5 nto improve function and ADL'S Goal Progress: Progressing Goal 5:: Patient improve ablity to peform ADLS' and housework tasks with min limitaions. Goal Progress: Progressing - Plan Plan: RTD - D/C Information If there are questions or concerns regarding this patient's physical therapy, please feel free to call me at [phone]. Thank you for the referral of this patient. Sincerely, Lux Miller PT, <Electronically signed by Lux Miller PT, Cert. MDT, [facility]> 07/27/17 1739 CC: Maddie Munoz; Rosamaria Brown DO LISHA Signed WILD Observed: 07/19/2017 Status: COMPLETED Source: [place] 12:00 AM [facility] REPOSITORY Telephone (ENDOMN) MARCE LAW ([id number]) 1960 F Date Time Provider Department 07/19/17 ALICE CARTER During your visit today, we recorded the following information about you: Sierra Short Steven [facility] 07/19/2017 4:42 PM Signed Patient called the office returning Dr. Carter's states she feel much more energy not as much as she would like but much better. Family members states that talking to her now is like talking to her old self. Patient also states that the last time she took steroid was at the end of april beginning of May she has pneumonia she was on 30 for 3 days 20 for 3 days and 10 for 3 days and she was on a inhaler Patient can be reached at [phone] Alice Carter MD 07/21/2017 2:55 PM Signed Attempted to call patient again Left VM Component Latest Ref Rng AND Units 07/13/2017 Protein, Total 6.3 - 8.0 g/dL 7.7 Albumin 3.9 - 4.9 g/dL 5.0 (H) Calcium 8.5 - 10.2 mg/dL 9.8 Bilirubin, Total 0.2 - 1.3 mg/dL 0.4 Alkaline Phosphatase 32 - 117 U/L 43 AST 13 - 35 U/L 21 Glucose 74 - 99 mg/dL 89 BUN 7 - 21 mg/dL 9 Creatinine 0.58 - 0.96 mg/dL 0.85 Sodium 136 - 144 mmol/L 142 Potassium 3.7 - 5.1 mmol/L 4.9 Chloride 97 - 105 mmol/L 105 CO2 22 - 30 mmol/L 24 Anion Gap 9 - 18 mmol/L 13 ALT 7 - 38 U/L 11 eGFR- >60 eGFR-All Other Races . >60 Cortisol Basal ug/dL 7.8 Cortisol 30 min ug/dL 22.7 Cortisol 60 min ug/dL 26.4 Interpretation (ACTHST) A peak value of at least 18 ug/dL is a normal response to cortrosyn stimulation. ACTH <47 pg/mL 10 Free T4 0.9 - 1.7 ng/dL 1.0 Free T3 2.3 - 4.1 pg/mL 2.5 Adrenal Antibodies <1:2 titer <1:2 TSH 0.400 - 5.500 uU/mL 0.955 Prolactin 4.5 - 26.8 ng/mL 7.0 FSH mU/mL 129.2 LH mU/mL 33.9 Insulin-like Growth Factor I 57 - 236 ng/mL 99 Aldosterone 3.1 - 35.4 ng/dL 8.0 Direct Renin pg/mL 34.9 Sierra Harris [facility] 07/26/2017 9:11 AM Signed Patient called the office back Patient can be reached before 3pm today and tomorrow before 1pm at [phone] (T) Alice Carter MD 07/27/2017 1:02 PM Signed Detailed discussion with patient Stim testing normal but pt feels much improved with steroids Will discuss case with colleagues to see if pt can continue on steroids despite normal values Will update pt Alice Carter MD Dept of Endocrinology Alice Carter MD 07/28/2017 1:48 PM Signed Asked patient to call me re; steroid taper Provided callback number Alice Carter MD Dept of Endocrinology Alice Carter MD 07/28/2017 1:48 PM Signed Addended by: ALICE CARTER MD on: 07/28/2017 01:48 PM Modules accepted: Orders Sierra Harris [facility] 08/01/2017 2:33 PM Signed Patient called the office again requesting a call back at [phone] (D) Alice Carter MD 08/01/2017 5:02 PM Signed Spoke to patient Discussed that stim testing normal Asked to wean off steroids by 0.5 to 1 mg prednisone every 1-2 weeks without tremendous adrenal insufficiency symptoms Patient will send me old records for review as well from 2011 when she required steroids so I can review in detail Alice Carter MD Dept of Endocrinology Alice Carter MD 08/01/2017 5:02 PM Signed Addended by: ALICE CARTER MD on: 08/01/2017 05:02 PM Modules accepted: Orders Allergies As of Date: 07/19/2017 Noted Allergy Reaction SEASONAL ALLERGIES 08/16/2016 14 - Other: See Comments Comments: Sneezing, postnasal drip Date Reviewed: 07/13/2017 Reviewed by: Dickson (Ct) JOEY Garcia - Fully Assessed Reason for Visit: Patient Update [1234] Order(s):predniSONE (DELTASONE) 1 mg tabletTake 2.5 mg in the morning and take 2.5 mg in the evening by mouthDisp: 450 tabletRfl: 3 Prescriptions as of 07/19/2017 Sig: PREDNISONE 1 MG TABLET Take 2.5 mg in the morning an* CYCLOSPORINE 0.05 % EYE DROPS* Use 1 Drop in both eyes twice* ROSUVASTATIN 10 MG TABLET Take 10 mg by mouth daily at * ESCITALOPRAM 20 MG TABLET Take 20 mg by mouth once linda* DIAZEPAM 5 MG TABLET Take 5 mg by mouth daily at b* LACTOBACILLUS COMBINATION NO.* Take 2 capsules by mouth once* ALBUTEROL SULFATE HFA 90 MCG/* Inhale 2 Puffs as instructed * LIOTHYRONINE 5 MCG TABLET Take 5 mcg by mouth once linda* CALCIUM CITRATE + D ORAL Take by mouth twice daily. DENOSUMAB 60 MG/ML SUBCUTANEO* Inject 60 mg subcutaneously o* BACLOFEN 10 MG TABLET Take 10 mg by mouth three alejandro* TOPIRAMATE 50 MG TABLET Take 3 tablets by mouth daily* CETIRIZINE 10 MG TABLET Take 1 tablet by mouth once d* LEVOTHYROXINE 150 MCG TABLET Take 150 mcg by mouth. 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] Dysphagia, unspecified(787.20) [R13.10] 01/07/2016 Acquired hypothyroidism [E03.9] Degeneration of lumbar or lumbosacral intervert* Other chest pain [R07.89] 01/07/2016 Rheumatoid arthritis [M06.9] Arthropathy, unspecified, site unspecified [M12* Anxiety state, unspecified [F41.1] Acute gastritis without mention of hemorrhage [*INVALID FOR* 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] INVALID FOR* Vitreous floaters of both eyes [H43.393] INVALID FOR* Punctate keratitis of both eyes [H16.143] INVALID FOR* Status post LASIK surgery of both eyes [Z98.890]INVALID FOR* Encounter for screening for malignant neoplasm *INVALID FOR*01/13/2016 Dry eye syndrome of both eyes [H04.123] INVALID FOR* Osteoporosis [M81.0] INVALID FOR* Prescriptions ordered this encounter Disp Refills Start End PREDNISONE 1 MG TABLET 450 * 3 08/01/2017 Sig: Take 2.5 mg in the morning and take 2.5 mg in the evening by mouth Medications Discontinued During This Encounter cosyntropin (CORTROSYN) 0.25 mg inje* 0.25* 0 07/13/2017 07/28/2017 Class: In Office Sig: Give 0.25 mg IM after baseline labs drawn Disc: Reason for discontinue is not on file. predniSONE (DELTASONE) 2.5 mg tablet 180 * 3 07/13/2017 08/01/2017 Route: ORAL Sig: Take 1 tablet by mouth twice daily. Disc: Reason for discontinue is not on file. Encounter Status:Closed by ALICE CARTER MD on 07/21/17 ACTH STIM 3 TIME Collected: 07/13/2017 Status: F Source: [facility] 2:08 PM [facility] REPOSITORY TYPE CODE TESTS RESULT OUT OF RANGE REFERENCE UNITS LAB COR0 ug/dL 7.8 .Cortisol,Ba iva LK USE ONLY Result Comment: Cortisol Reference Range: AM = 5.3-22.5, PM = 3.4-16.8 LAB COR30 ug/dL Cortisol, 30 min 22.7 LAB COR60 ug/dL Cortisol, 60 min 26.4 LAB CORINT Interpretation A peak value of at least 18 ug/dL is a normal response to cortrosyn stimulation. Performed By: #### ACTHST #### [facility] [address] [place] [id number] CNNURSE Observed: 07/13/2017 Status: COMPLETED Source: [place] 1:00 PM [facility] REPOSITORY Nurse Visit (ENDOMN) MARCE LAW ([id number]) 1960 F Date Time Provider Department 07/13/17 1:00 PM NURSE ENDO MAIN ENDOMN During your visit today, we recorded the following information about you: Referring Provider: ALICE CARTER [[id number]] Allergies As of Date: 07/13/2017 Noted Allergy Reaction SEASONAL ALLERGIES 08/16/2016 14 - Other: See Comments Comments: Sneezing, postnasal drip Date Reviewed: 07/13/2017 Reviewed by: Dickson (Ct) Jose CT - Fully Assessed Primary Visit Diagnosis: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] Other Visit Diagnoses:Acquired hypothyroidism [E03.9] Other osteoporosis, unspecified pathological fracture presence [M81.8] Order(s):[] cosyntropin 0.25 mg injection (CORTROSYN)Disp: Rfl: Prescriptions as of 07/13/2017 Sig: COSYNTROPIN 0.25 MG SOLUTION * Give 0.25 mg IM after baselin* PREDNISONE 2.5 MG TABLET Take 1 tablet by mouth twice * CYCLOSPORINE 0.05 % EYE DROPS* Use 1 Drop in both eyes twice* ROSUVASTATIN 10 MG TABLET Take 10 mg by mouth daily at * ESCITALOPRAM 20 MG TABLET Take 20 mg by mouth once linda* DIAZEPAM 5 MG TABLET Take 5 mg by mouth daily at b* LACTOBACILLUS COMBINATION NO.* Take 2 capsules by mouth once* ALBUTEROL SULFATE HFA 90 MCG/* Inhale 2 Puffs as instructed * LIOTHYRONINE 5 MCG TABLET Take 5 mcg by mouth once linda* CALCIUM CITRATE + D ORAL Take by mouth twice daily. DENOSUMAB 60 MG/ML SUBCUTANEO* Inject 60 mg subcutaneously o* BACLOFEN 10 MG TABLET Take 10 mg by mouth three alejandro* TOPIRAMATE 50 MG TABLET Take 3 tablets by mouth daily* CETIRIZINE 10 MG TABLET Take 1 tablet by mouth once d* LEVOTHYROXINE 150 MCG TABLET Take 150 mcg by mouth. 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] Dysphagia, unspecified(787.20) [R13.10] 01/07/2016 Acquired hypothyroidism [E03.9] Degeneration of lumbar or lumbosacral intervert* Other chest pain [R07.89] 01/07/2016 Rheumatoid arthritis [M06.9] Arthropathy, unspecified, site unspecified [M12* Anxiety state, unspecified [F41.1] Acute gastritis without mention of hemorrhage [*INVALID FOR* 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] INVALID FOR* Vitreous floaters of both eyes [H43.393] INVALID FOR* Punctate keratitis of both eyes [H16.143] INVALID FOR* Status post LASIK surgery of both eyes [Z98.890]INVALID FOR* Encounter for screening for malignant neoplasm *INVALID FOR*01/13/2016 Dry eye syndrome of both eyes [H04.123] INVALID FOR* Osteoporosis [M81.0] INVALID FOR* Prescriptions ordered this encounter Disp Refills Start End COSYNTROPIN 0.25 MG SOLUTION FOR INJ* 07/14/2017 07/13/2017 Route: INTRAMUSCULA Follow-up and Disposition History Recorded Encounter Status:Closed by ALICE CARTER MD on 07/14/17 FREE T3 Collected: 07/13/2017 Status: F Source: [place] 12:32 PM [facility] REPOSITORY TYPE CODE TESTS RESULT OUT OF RANGE REFERENCE UNITS LAB FREET3 2.3-4.1 pg/mL Free T3 2.5 Performed By: #### FREET3, FT4, FSH, LH, CMP, TSH, PROL, ACTH, RENIND, ILGF1, CRISTIAN #### [facility] [employer] [address] [place] [phone] #### ADRENL #### [facility] [address] [place] [phone] FREE T4 Collected: 07/13/2017 Status: F Source: [place] 12:32 PM [facility] REPOSITORY TYPE CODE TESTS RESULT OUT OF RANGE REFERENCE UNITS LAB FT4 0.9-1.7 ng/dL Free T4 1.0 Performed By: #### FREET3, FT4, FSH, LH, CMP, TSH, PROL, ACTH, RENIND, ILGF1, CRISTIAN #### [place] [address] #### ADRENL #### [facility] [address] [place] [address]. [place] [address] FSH Collected: 07/13/2017 Status: F Source: [place] 12:32 PM [facility] REPOSITORY TYPE CODE TESTS RESULT OUT OF RANGE REFERENCE UNITS LAB FSH mU/mL FSH 129.2 Result Comment: Reference range: Follicular: 2-11 Midcycle: 10-30 Luteal: 1-9 Post Audelia: 20-100 Performed By: #### FREET3, FT4, FSH, LH, CMP, TSH, PROL, ACTH, RENIND, ILGF1, CRISTIAN #### [place] [id number] [place] [phone] #### ADRENL #### [facility] [address] [place] [phone] LH Collected: 07/13/2017 Status: F Source: [facility] 12:32 PM [facility] REPOSITORY TYPE CODE TESTS RESULT OUT OF RANGE REFERENCE UNITS LAB LH mU/mL LH 33.9 Result Comment: Reference range: Follicular: 1-12 Midcycle: 20-90 Luteal: 1-10 Post Audelia: >20 Performed By: #### FREET3, FT4, FSH, LH, CMP, TSH, PROL, ACTH, RENIND, ILGF1, CRISTIAN #### [place] [phone] #### ADRENL #### [facility] [address] [place] [phone] COMP METABOLIC PANEL Collected: 07/13/2017 Status: F Source: [place] 12:32 PM [facility] REPOSITORY TYPE CODE TESTS RESULT OUT OF REFERENCE UNITS RANGE LAB TP 6.3-8.0 g/dL Protein, Total 7.7 LAB ALB 3.9-4.9 g/dL Albumin High 5.0 LAB CA 8.5-10.2 mg/dL Calcium, Total 9.8 LAB TBIL 0.2-1.3 mg/dL Bilirubin, Total 0.4 LAB ALKP 32-117 U/L Alkaline Phosphatase 43 LAB AST 13-35 U/L AST 21 LAB GLU 74-99 mg/dL Glucose 89 Result Comment: The [place] Diabetes Association (ADA) provides guidance for cutoff values for fasting glucose and random glucose. The ADA defines fasting as no caloric intake for at least 8 hours. Fas ting plasma glucose results between 100 to 125 mg/dL indicate increased risk for diabetes (prediabetes). Fasting plasma glucose results greater than or equal to 126 mg/dL meet the criteria for diagnosis of diabetes. In the absence of unequivocal hyperglycemia, results should be confirmed by repeat testing. In a patient with classic symptoms of hyperglycemia or hyperglycemic crisis, random plasma glucose results greater than or equal to 200 mg/dL meet the criteria for diagnosis of diabetes. Reference: Standards of Medical Care in Diabetes 2016, [place] Diabetes Association. Diabetes Care. 2016.39(Suppl 1). LAB BUN 7-21 mg/dL BUN 9 LAB CRET 0.58-0.96 mg/dL Creatinine 0.85 LAB NA 136-144 mmol/L Sodium 142 LAB K 3.7-5.1 mmol/L Potassium 4.9 LAB CL 97-105 mmol/L Chloride 105 LAB CO2 22-30 mmol/L CO2 24 LAB AGAP 9-18 mmol/L Anion Gap 13 LAB ALT 7-38 U/L ALT 11 LAB GFRAA eGFR- Amer. >60 LAB GFRNAA . eGFR-All Other Races >60 Result Comment: eGFR (Estimated GFR) Units of measure: mL/min/1.73 meters squared eGFR is derived from the reexpressed MDRD Study equation using the following parameters: serum creatinine, age, gender and race. The creatinine assay has been calibrated to be traceable to IDMS. An eGFR <60 mL/min/1.73m2 for >3 months is consistent with chronic kidney disease. Refer to KDOQI guidelines for clinical interpretation. In patients with unstable renal function, e.g. those with acute kidney injury, the eGFR may not accurately reflect actual GFR. Performed By: #### FREET3, FT4, FSH, LH, CMP, TSH, PROL, ACTH, RENIND, ILGF1, CRISTIAN #### [facility] [address] [place], [place] [address] #### ADRENL #### [facility] [place] [id number] [facility]. [place] [phone] TSH Collected: 07/13/2017 Status: F Source: [place] 12:32 PM [facility] REPOSITORY TYPE CODE TESTS RESULT OUT OF RANGE REFERENCE UNITS LAB TSH 0.400-5.500 uU/mL TSH 0.955 Performed By: #### FREET3, FT4, FSH, LH, CMP, TSH, PROL, ACTH, RENIND, ILGF1, CRISTIAN #### [place] [phone] #### ADRENL #### [facility] [address] [place] [address]. [phone] PROLACTIN Collected: 07/13/2017 Status: F Source: [place] 12:32 PM [facility] REPOSITORY TYPE CODE TESTS RESULT OUT OF REFERENCE UNITS RANGE LAB PROL 4.5-26.8 ng/mL Prolactin 7.0 Performed By: #### FREET3, FT4, FSH, LH, CMP, TSH, PROL, ACTH, RENIND, ILGF1, CRISTIAN #### [place] [phone] #### ADRENL #### [facility] [address] [place] [address]. [place] [phone] ACTH Collected: 07/13/2017 Status: F Source: [place] 12:32 PM [facility] REPOSITORY TYPE CODE TESTS RESULT OUT OF RANGE REFERENCE UNITS LAB ACTH <47 pg/mL ACTH 10 Performed By: #### FREET3, FT4, FSH, LH, CMP, TSH, PROL, ACTH, RENIND, ILGF1, CRISTIAN #### [place] [phone] #### ADRENL #### [facility] [address] [place] [address]. [place] [phone] DIRECT RENIN Collected: 07/13/2017 Status: F Source: [place] 12:32 PM [facility] REPOSITORY TYPE CODE TESTS RESULT OUT OF REFERENCE UNITS RANGE LAB RENDI pg/mL Direct Renin 34.9 Result Comment: Renin Reference Range, 41-99 years: Upright: 3.6-81.6 pg/mL Supine: 2.5-45.1 pg/mL Performed By: #### FREET3, FT4, FSH, LH, CMP, TSH, PROL, ACTH, RENIND, ILGF1, CRISTIAN #### [facility] [employer] [facility] [place] [address] #### ADRENL #### [facility] [phone] [place] [address]. [place] [phone] INSULIN LIK GR FAC 1 Collected: 07/13/2017 Status: F Source: [place] 12:32 PM [facility] REPOSITORY TYPE CODE TESTS RESULT OUT OF REFERENCE UNITS RANGE LAB ILGF1 57-236 ng/mL Insulin Lik Gr 99 Fac 1 Performed By: #### FREET3, FT4, FSH, LH, CMP, TSH, PROL, ACTH, RENIND, ILGF1, CRISTIAN #### [place] [phone] #### ADRENL #### [facility] [place] [phone] ALDOSTERONE Collected: 07/13/2017 Status: F Source: [place] 12:32 PM [facility] REPOSITORY TYPE CODE TESTS RESULT OUT OF REFERENCE UNITS RANGE LAB CRISTIAN 3.1-35.4 ng/dL Aldosterone 8.0 Result Comment: Normal serum levels of aldosterone are dependent on the sodium intake and whether the patient is upright or supine. High sodium intake will tend to suppress serum aldosterone, whereas lo w sodium intake will elevate serum aldosterone. The reference interval for serum aldosterone are based on a normal sodium intake. Supine reference range <23.1 ng/dL Performed By: #### FREET3, FT4, FSH, LH, CMP, TSH, PROL, ACTH, RENIND, ILGF1, CRISTIAN #### [facility] [employer] [address] [place] [address] #### ADRENL #### [facility] [address] [place] [address]. [place] [phone] ADRENAL ANTIBODIES Collected: 07/13/2017 Status: F Source: [place] 12:32 PM [facility] REPOSITORY TYPE CODE TESTS RESULT OUT OF REFERENCE UNITS RANGE LAB ADRLAB < 1:2 titer Adrenal Antibodies <1:2 Result Comment: (NOTE) This test was developed and its analytical performance characteristics have been determined by [facility]. It has not been cleared or approved by the US Food and Drug Administration. This assay has been validated pursuant to the CLIA regulations and is used for clinical purposes. @ Test Performed By: [facility] [place] Trevor Ragland M.D., Ph.D., Promotions Representative [address] [place] [address] CLIA #[id number] Performed By: #### FREET3, FT4, FSH, LH, CMP, TSH, PROL, ACTH, RENIND, ILGF1, CRISTIAN #### [facility] [address] [place] [phone] #### ADRENL #### [facility] [address] [place] [address]. [place] [address] PROGRESS Observed: 07/13/2017 Status: COMPLETED Source: [place] 11:17 AM [facility] REPOSITORY HNO ID: [id number] Author: Alice Carter Service: (none) Author Type: Physician Type: Progress Notes Filed: 07/18/2017 5:40 PM Note Text: F/u for: Hypothyroidism Adrenal insufficiency. [facility] 12/22/2016 Patient has long standing hypothyrodism Also with adrenal insufficiency Since last visit, there was a miscommunication and prednisone was weaned off Patient miserable now for several mo Unfortunately, despite [employer] messages, I was not aware Lot of lightheadedness, dizziness, salt craving, and fatigue Very difficult to complete usual functions of life Here to discuss thyroid and steroid doses pmhx significant for head injuries - falling on ceramic floor, injury to head, etc Reports that in [id number], she had two episodes unconsciousness at home during which she had some urinary incontinence. Reports that all of her problems started from then. Adrenal Insufficiency initially diagnosed in when she had a low cortisol. But ever since, she has had multiple discordant readings of ACTH stim tests and cortisol levels in the past. Weight stable Hypothyroidism was diagnosed in 1982. Cytomel 5 mcg daily Synthroid 150 mcg daily - 1/2 tab Monday, Monday, Monday U/s on 03/11/16 which showed stable cyst in the left lober and 7mm x7mm x7mm hypoechoic solid nodule in the right lobe. Bring repeat imaging which shows stability of nodules today Lastly, re: severe osteoporosis She had osteopenia for several years but does not recall when it progressed to osteoporosis. She had a hysterectomy in her 30s for endometriosis. She had a BMD on 08/27/2015. Has had a total of 3 fractures of her back in the past 15 years. No additional fractures Calcium: yes, Calcium Citrate Vitamin D: yes on 2000U per day Prior use of antiresporptives or other medications: Denosumb 60mg - has had 3 injections, getting this at PCP office Prior fragility fractures: yes. Fractures in her back. Most recent was compression vertebral fracture last year. Also had 2 other fractures Height loss: 0.25 inches in July Kidney stones: no Weight change yes, 10-15 lbs Bone Mineral Density done: Yes, If yes, approximate year of last test 08/27/2015 History of steroid use: yes History of malabsorption: no Exercise: (type AND duration) yes. 30-40 mins of stretching and climbing stairs History of certain medication use: thyorid, methotrexate and glucocorticoids Menopause: s/p hysterectomy in 30s Patient's Past Family and Social history have been reviewed with the patient, and updated as appropriate. Please see relevant sections in epic EHR for details. Physical Exam: BP 105/66 Pulse 78 Temp 37 ?C (98.6 ?F) (Temporal Artery) Ht 168.5 cm (5' 6.34) Wt 68.6 kg (151 lb 3.2 oz) BMI 24.16 kg/m? Body mass index is 24.16 kg/m?. Extended Vitals not filed for this encounter. General: WNWD, NAD Eyes: conjunctivae are pink, and moist. No exopthalmos, lag, or stare ENT/Mouth: dentition poor Neck: The thyroid is normal in size, nontender, no adenopthy Lymphatic: no cervical or supraclavicular adenopathy Cardiovascular: regular rate, no murmur Respiratory: full sounds bilaterally with normal expansion Gastrointestinal: soft, non-tender, normal bowel sounds, no hepatosplenomegaly Musculoskeletal: left shoulder warm with multiple erythematous areas of tenderness, normal muscle mass, no lower extremity swelling Skin: normal, no rashes present Neurologic: DTR?s normal with normal recovery phase, PERRL, EOMI, no tremor with outstretched hands Pyschiatric: mood and affect are normal Examination of Back: Profile -Shoulder height position: Normal -Lumbar curve: normal -Scoliosis: no -Movement: Normal upon exam DATA REVIEW: Glucose (mg/dL) Date Value 03/01/2017 90 Potassium (mmol/L) Date Value 03/01/2017 4.0 Sodium (mmol/L) Date Value 03/01/2017 138 Chloride (mmol/L) Date Value 03/01/2017 99 CO2 (mmol/L) Date Value 03/01/2017 25 Creatinine (mg/dL) Date Value 03/01/2017 0.86 BUN (mg/dL) Date Value 03/01/2017 7 Anion Gap (mmol/L) Date Value 03/01/2017 14 Calcium (mg/dL) Date Value 03/01/2017 9.5 TSH Date Value Ref Range Status 03/01/2017 0.743 0.400 - 5.500 uU/mL Final 08/26/2016 DXA: personally reviewed and independently interpreted Lumbar spine L1-L4:0.871g/cm2, T score: -2.6, z score -1.9, There is a decrease in BMD when compared to prior study Left hip: Femoral neck: 0.605 g/cm2, T score -3.1, z score -2.2, total hip:0.601 g/cm2, Tscore: -3.2, z score -2.6, 17.4 % decreased from prior study Right hip: Femoral neck: 0.601 g/cm2, T score -3.1, z score -2.2, total hip:0.670 g/cm2, Tscore: -2.7, z score -2.1, 13.4% decreased from prior study Assessment/Plan: 56 year old female with with PMH of: Hypothyroidism Osteoporosis Chronic pain syndrome Anxiety . Plan: 1. Acquired hypothyroidism - ICD9: 244.9, ICD10: E03.9 (primary diagnosis) - Instructed patient on importance of taking on an empty stomach either first thing in the morning or at bedtime. 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 Restart prednisone 2.5 mg BID while awaiting results 3. Osteoporosis with pathological fracture, sequela - ICD9: 905.5, ICD10: M80.00XS - most likely in the setting of steroid use - most recent BMD showed worsening bone density. - continue denosomab with PCP as planned Alice Carter MD Dept of Endocrinology July 13, 2017 Addendum: Labs normal Left VM for patient to call me to discuss Component Latest Ref Rng AND Units 07/13/2017 Protein, Total 6.3 - 8.0 g/dL 7.7 Albumin 3.9 - 4.9 g/dL 5.0 (H) Calcium 8.5 - 10.2 mg/dL 9.8 Bilirubin, Total 0.2 - 1.3 mg/dL 0.4 Alkaline Phosphatase 32 - 117 U/L 43 AST 13 - 35 U/L 21 Glucose 74 - 99 mg/dL 89 BUN 7 - 21 mg/dL 9 Creatinine 0.58 - 0.96 mg/dL 0.85 Sodium 136 - 144 mmol/L 142 Potassium 3.7 - 5.1 mmol/L 4.9 Chloride 97 - 105 mmol/L 105 CO2 22 - 30 mmol/L 24 Anion Gap 9 - 18 mmol/L 13 ALT 7 - 38 U/L 11 eGFR- >60 eGFR-All Other Races . >60 Cortisol Basal ug/dL 7.8 Cortisol 30 min ug/dL 22.7 Cortisol 60 min ug/dL 26.4 Interpretation (ACTHST) A peak value of at least 18 ug/dL is a normal response to cortrosyn stimulation. ACTH <47 pg/mL 10 Free T4 0.9 - 1.7 ng/dL 1.0 Free T3 2.3 - 4.1 pg/mL 2.5 TSH 0.400 - 5.500 uU/mL 0.955 Prolactin 4.5 - 26.8 ng/mL 7.0 FSH mU/mL 129.2 LH mU/mL 33.9 Insulin-like Growth Factor I 57 - 236 ng/mL 99 Aldosterone 3.1 - 35.4 ng/dL 8.0 Direct Renin pg/mL 34.9 Greater than 50% of the visit time was spent in direct discussion with the patient regarding plan of care. The visit length was 40 minutes. CNOV Observed: 07/13/2017 Status: COMPLETED Source: [place] 10:50 AM [facility] REPOSITORY Office Visit (ROGELIO) MARCE LAW ([id number]) 1960 F Date Time Provider Department 07/13/17 10:50 AM ALICE CARTER During your visit today, we recorded the following information about you: Temperature Pulse Blood pressure Weight 98.6 degrees 78/minute 105/66 68.6 kg Height 1.685 m Alice Carter MD 07/18/2017 5:40 PM Signed F/u for: Hypothyroidism Adrenal insufficiency. [facility] 12/22/2016 Patient has long standing hypothyrodism Also with adrenal insufficiency Since last visit, there was a miscommunication and prednisone was weaned off Patient miserable now for several mo Unfortunately, despite [employer] messages, I was not aware Lot of lightheadedness, dizziness, salt craving, and fatigue Very difficult to complete usual functions of life Here to discuss thyroid and steroid doses pmhx significant for head injuries - falling on ceramic floor, injury to head, etc Reports that in 8032-7062, she had two episodes unconsciousness at home during which she had some urinary incontinence. Reports that all of her problems started from then. Adrenal Insufficiency initially diagnosed in when she had a low cortisol. But ever since, she has had multiple discordant readings of ACTH stim tests and cortisol levels in the past. Weight stable Hypothyroidism was diagnosed in 1982. Cytomel 5 mcg daily Synthroid 150 mcg daily - / tab Monday, Monday, Monday U/s on 03/11/16 which showed stable cyst in the left lober and 7mm x7mm x7mm hypoechoic solid nodule in the right lobe. Bring repeat imaging which shows stability of nodules today Lastly, re: severe osteoporosis She had osteopenia for several years but does not recall when it progressed to osteoporosis. She had a hysterectomy in her 30s for endometriosis. She had a BMD on 08/27/2015. Has had a total of 3 fractures of her back in the past 15 years. No additional fractures Calcium: yes, Calcium Citrate Vitamin D: yes on 2000U per day Prior use of antiresporptives or other medications: Denosumb 60mg - has had 3 injections, getting this at PCP office Prior fragility fractures: yes. Fractures in her back. Most recent was compression vertebral fracture last year. Also had 2 other fractures Height loss: 0.25 inches in July Kidney stones: no Weight change yes, 10-15 lbs Bone Mineral Density done: Yes, If yes, approximate year of last test 08/27/2015 History of steroid use: yes History of malabsorption: no Exercise: (type AND duration) yes. 30-40 mins of stretching and climbing stairs History of certain medication use: thyorid, methotrexate and glucocorticoids Menopause: s/p hysterectomy in 30s Patient's Past Family and Social history have been reviewed with the patient, and updated as appropriate. Please see relevant sections in [facility] EHR for details. Physical Exam: BP 105/66 Pulse 78 Temp 37 ?C (98.6 ?F) (Temporal Artery) Ht 168.5 cm (5' 6.34) Wt 68.6 kg (151 lb 3.2 oz) BMI 24.16 kg/m? Body mass index is 24.16 kg/m?. Extended Vitals not filed for this encounter. General: WNWD, NAD Eyes: conjunctivae are pink, and moist. No exopthalmos, lag, or stare ENT/Mouth: dentition poor Neck: The thyroid is normal in size, nontender, no adenopthy Lymphatic: no cervical or supraclavicular adenopathy Cardiovascular: regular rate, no murmur Respiratory: full sounds bilaterally with normal expansion Gastrointestinal: soft, non-tender, normal bowel sounds, no hepatosplenomegaly Musculoskeletal: left shoulder warm with multiple erythematous areas of tenderness, normal muscle mass, no lower extremity swelling Skin: normal, no rashes present Neurologic: DTR?s normal with normal recovery phase, PERRL, EOMI, no tremor with outstretched hands Pyschiatric: mood and affect are normal Examination of Back: Profile -Shoulder height position: Normal -Lumbar curve: normal -Scoliosis: no -Movement: Normal upon exam DATA REVIEW: Glucose (mg/dL) Date Value 03/01/2017 90 Potassium (mmol/L) Date Value 03/01/2017 4.0 Sodium (mmol/L) Date Value 03/01/2017 138 Chloride (mmol/L) Date Value 03/01/2017 99 CO2 (mmol/L) Date Value 03/01/2017 25 Creatinine (mg/dL) Date Value 03/01/2017 0.86 BUN (mg/dL) Date Value 03/01/2017 7 Anion Gap (mmol/L) Date Value 03/01/2017 14 Calcium (mg/dL) Date Value 03/01/2017 9.5 TSH Date Value Ref Range Status 03/01/2017 0.743 0.400 - 5.500 uU/mL Final 08/26/2016 DXA: personally reviewed and independently interpreted Lumbar spine L1-L4:0.871g/cm2, T score: -2.6, z score -1.9, There is a decrease in BMD when compared to prior study Left hip: Femoral neck: 0.605 g/cm2, T score -3.1, z score -2.2, total hip:0.601 g/cm2, Tscore: -3.2, z score -2.6, 17.4 % decreased from prior study Right hip: Femoral neck: 0.601 g/cm2, T score -3.1, z score -2.2, total hip:0.670 g/cm2, Tscore: -2.7, z score -2.1, 13.4% decreased from prior study Assessment/Plan: 56 year old female with with PMH of: Hypothyroidism Osteoporosis Chronic pain syndrome Anxiety . Plan: 1. Acquired hypothyroidism - ICD9: 244.9, ICD10: E03.9 (primary diagnosis) - Instructed patient on importance of taking on an empty stomach either first thing in the morning or at bedtime. 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 Restart prednisone 2.5 mg BID while awaiting results 3. Osteoporosis with pathological fracture, sequela - ICD9: 905.5, ICD10: M80.00XS - most likely in the setting of steroid use - most recent BMD showed worsening bone density. - continue [place] with PCP as planned Alice Carter MD Dept of Endocrinology July 13, 2017 Addendum: Labs normal Left VM for patient to call me to discuss Component Latest Ref Rng AND Units 07/13/2017 Protein, Total 6.3 - 8.0 g/dL 7.7 Albumin 3.9 - 4.9 g/dL 5.0 (H) Calcium 8.5 - 10.2 mg/dL 9.8 Bilirubin, Total 0.2 - 1.3 mg/dL 0.4 Alkaline Phosphatase 32 - 117 U/L 43 AST 13 - 35 U/L 21 Glucose 74 - 99 mg/dL 89 BUN 7 - 21 mg/dL 9 Creatinine 0.58 - 0.96 mg/dL 0.85 Sodium 136 - 144 mmol/L 142 Potassium 3.7 - 5.1 mmol/L 4.9 Chloride 97 - 105 mmol/L 105 CO2 22 - 30 mmol/L 24 Anion Gap 9 - 18 mmol/L 13 ALT 7 - 38 U/L 11 eGFR- >60 eGFR-All Other Races . >60 Cortisol Basal ug/dL 7.8 Cortisol 30 min ug/dL 22.7 Cortisol 60 min ug/dL 26.4 Interpretation (ACTHST) A peak value of at least 18 ug/dL is a normal response to cortrosyn stimulation. ACTH <47 pg/mL 10 Free T4 0.9 - 1.7 ng/dL 1.0 Free T3 2.3 - 4.1 pg/mL 2.5 TSH 0.400 - 5.500 uU/mL 0.955 Prolactin 4.5 - 26.8 ng/mL 7.0 FSH mU/mL 129.2 LH mU/mL 33.9 Insulin-like Growth Factor I 57 - 236 ng/mL 99 Aldosterone 3.1 - 35.4 ng/dL 8.0 Direct Renin pg/mL 34.9 Greater than 50% of the visit time was spent in direct discussion with the patient regarding plan of care. The visit length was 40 minutes. Alice Carter MD 07/13/2017 11:48 AM Signed Take 2.5 mg prednisone in am and 2.5 mg prednisone around 3 pm Instruction for ACTH stimulation test: 1) Go to lab and give blood 2) Go to nursing station in [place]20 and inform the nurse that you need an injection of Cortrosyn 3) go back to lab and give blood 30 and 60 minutes after the injection You may drink water but do not eat anything further till you are done with the test This test does not have any side effect except rare feeling of warm sensation lasting for less than a minute after the injection. Referring Provider: SELF [200] Allergies As of Date: 07/13/2017 Noted Allergy Reaction SEASONAL ALLERGIES 08/16/2016 14 - Other: See Comments Comments: Sneezing, postnasal drip Date Reviewed: 07/13/2017 Reviewed by: Dickson (Ct) JOEY Garcia - Fully Assessed Primary Visit Diagnosis: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] Other Visit Diagnoses:Acquired hypothyroidism [E03.9] Other osteoporosis, unspecified pathological fracture presence [M81.8] Order(s):ACTH STIMULATION,3 TIME POINTS [SQACTHST] Order #: [id number] FUTURE ACTH BLD [SQACTH] Order #: [id number] FUTURE cosyntropin (CORTROSYN) 0.25 mg injectionGive 0.25 mg IM after baseline labs drawnDisp: 0.25 mgRfl: 0 T4 FREE/FREE THYROX [SQFT4] Order #: [id number] FUTURE T3 FREE BLD [SQFREET3] Order #: [id number] FUTURE ADRENAL AB BLD [SQADRENL] Order #: [id number] FUTURE TSH BLD [SQTSH] Order #: [id number] FUTURE PROLACTIN BLD [SQPROL] Order #: [id number] FUTURE COMP METABOLIC PANEL [SQCMP] Order #: [id number] FUTURE FSH BLD [SQFSH] Order #: [id number] FUTURE LUTEINIZING HORMONE [SQLH] Order #: [id number] FUTURE INSULIN LIK GR FAC I [SQILGF1] Order #: [id number] FUTURE predniSONE (DELTASONE) 2.5 mg tabletTake 1 tablet by mouth twice daily.Disp: 180 tabletRfl: 3 ALDOSTERONE BLD [SQALDO] Order #: [id number] FUTURE DIRECT RENIN PLASMA [SQRENIND] Order #: [id number] FUTURE Prescriptions as of 07/13/2017 Sig: CYCLOSPORINE 0.05 % EYE DROPS* Use 1 Drop in both eyes twice* ROSUVASTATIN 10 MG TABLET Take 10 mg by mouth daily at * ESCITALOPRAM 20 MG TABLET Take 20 mg by mouth once linda* DIAZEPAM 5 MG TABLET Take 5 mg by mouth daily at b* LACTOBACILLUS COMBINATION NO.* Take 2 capsules by mouth once* ALBUTEROL SULFATE HFA 90 MCG/* Inhale 2 Puffs as instructed * LIOTHYRONINE 5 MCG TABLET Take 5 mcg by mouth once linda* CALCIUM CITRATE + D ORAL Take by mouth twice daily. DENOSUMAB 60 MG/ML SUBCUTANEO* Inject 60 mg subcutaneously o* BACLOFEN 10 MG TABLET Take 10 mg by mouth three alejandro* TOPIRAMATE 50 MG TABLET Take 3 tablets by mouth daily* CETIRIZINE 10 MG TABLET Take 1 tablet by mouth once d* LEVOTHYROXINE 150 MCG TABLET Take 150 mcg by mouth. 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] Dysphagia, unspecified(787.20) [R13.10] 01/07/2016 Acquired hypothyroidism [E03.9] Degeneration of lumbar or lumbosacral intervert* Other chest pain [R07.89] 01/07/2016 Rheumatoid arthritis [M06.9] Arthropathy, unspecified, site unspecified [M12* Anxiety state, unspecified [F41.1] Acute gastritis without mention of hemorrhage [*INVALID FOR* 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] INVALID FOR* Vitreous floaters of both eyes [H43.393] INVALID FOR* Punctate keratitis of both eyes [H16.143] INVALID FOR* Status post LASIK surgery of both eyes [Z98.890]INVALID FOR* Encounter for screening for malignant neoplasm *INVALID FOR*01/13/2016 Dry eye syndrome of both eyes [H04.123] INVALID FOR* Osteoporosis [M81.0] INVALID FOR* Other instructions from your clinician: Take 2.5 mg prednisone in am and 2.5 mg prednisone around 3 pm Instruction for ACTH stimulation test: 1) Go to lab and give blood 2) Go to nursing station in F20 and inform the nurse that you need an injection of Cortrosyn 3) go back to lab and give blood 30 and 60 minutes after the injection You may drink water but do not eat anything further till you are done with the test This test does not have any side effect except rare feeling of warm sensation lasting for less than a minute after the injection. Prescriptions ordered this encounter Disp Refills Start End COSYNTROPIN 0.25 MG SOLUTION FOR INJ* 0.25* 0 07/13/2017 Class: In Office Sig: Give 0.25 mg IM after baseline labs drawn PREDNISONE 2.5 MG TABLET 180 * 3 07/13/2017 Route: ORAL Sig: Take 1 tablet by mouth twice daily. Medications Discontinued During This Encounter predniSONE (DELTASONE) 5 mg tablet 07/13/2017 Class: Historical Med Route: ORAL Sig: Take 7.5 mg by mouth once daily. Disc: Reason for discontinue is not on file. Disposition: Return in about 6 months (around 01/13/2018). Follow-up and Disposition History Recorded Encounter Status:Closed by ALICE CARTER MD on 07/18/17 FOREARM 2 VIEWS Observed: 06/28/2017 Status: F Source: [place] 3:54 PM [facility] Imaging Services [address] [place], [place] [address] [address] Forearm 2 Views MR#: [id number] Acct: [id number] Name: MARCE LAW Rep #: [id number] : 1960 F 56 From: Jam Thomas MD PCP: Rosamaria Brown DO Status: REG CLI Study: Forearm 2 Views Date of Exam: 06/28/17 Exam# [id number] Ordering Dr: Rosamaria Brown DO STUDY: X-RAY - RIGHT RADIUS AND ULNA REASON FOR EXAM: Female, 56 years old. Patient fell 2 weeks ago. Pain. TECHNIQUE: 2 view(s) of the forearm. COMPARISON: None. FINDINGS: There is no demonstrated soft tissue swelling. Normal visualized radius. Normal visualized ulna. RAD/Forearm 2 Views IMPRESSION: Normal x-ray examination of the radius and ulna. Electronically Signed: Jam Thomas MD at 2:41 EDT Tel , Service support , CC: Rosamaria Brown DO Packaging Supervisor: Signed WRIST MIN 3 VIEWS Observed: 06/28/2017 Status: F Source: [place] 3:54 PM [facility] [place] [place] [facility] Imaging Services [address] [place] [address] Wrist min 3 Views MR#: [id number] Acct: [id number] Name: MARCE LAW Rep #: [id number] : 1960 F 56 From: Jam Thomas MD PCP: Rosamaria Brown DO Status: REG CLI Study: Wrist min 3 Views Date of Exam: 06/28/17 Exam# [id number] Ordering Dr: Rosamaria Brown DO STUDY: X-RAY - RIGHT WRIST REASON FOR EXAM: Female, 56 years old. Patient fell 2 weeks ago. Pain. TECHNIQUE: 3 view(s) of the wrist were obtained. COMPARISON: None. FINDINGS: Normal visualized distal radius and ulna. Normal radiocarpal articulation. Normal distal radioulnar articulation. Normal carpal bones. Normal carpal articulations. Normal carpometacarpal articulation of the thumb. Normal second through fifth carpometacarpal articulations. Normal visualized metacarpal bones. The soft tissue structures are unremarkable. There is no demonstrated acute fracture. There are well-defined bony densities distal to the ulnar styloid which could represent nonfused ossification centers or old nonunited fracture. RAD/Wrist min 3 Views IMPRESSION: No demonstrated acute osseous changes. Electronically Signed: Jam Thomas MD at 2:43 EDT Tel , Service support , CC: Rosamaria Brown DO Packaging Supervisor: Signed BRAIN/HEAD WITHOUT Observed: 06/28/2017 Status: F Source: [place] CONTRAST 3:30 PM [facility] Imaging Services [address] [place] [id number] Brain/Head without Contrast MR#: [id number] Acct: [id number] Name: MARCE LAW Rep #: [id number] : 1960 F 56 From: Krzysztof Rivera MD PCP: Rosamaria Brown DO Status: REG CLI Study: Brain/Head without Contrast Date of Exam: 06/28/17 Exam# [id number] Ordering Dr: Rosamaria Brown DO STUDY: CT BRAIN WITHOUT CONTRAST REASON FOR EXAM: Female, 56 years old. Fall. RADIATION DOSAGE (If Supplied By Facility): CTDIvol = ( 44.99 ) mGy, DLP = ( 846.73 ) mGycm TECHNIQUE: Transaxial CT imaging of the brain was performed without administration of intravenous contrast material. Individualized dose optimization techniques were used for this CT. COMPARISON: None. FINDINGS: Normal soft tissue structures. Normal calvarium. [...] 16:17 EDT , Service support , CC: Rosamaria Brown DO Packaging Supervisor: Signed CBC W/DIFF, AUTOMATED Collected: 06/22/2017 Status: F Source: [place] 11:37 AM [facility] TYPE CODE TESTS RESULT OUT OF RANGE REFERENCE UNITS LAB L100.1000 4.4-11.0 K/mm3 Normal WBC 5.5 LAB L100.1200 4.2-5.4 M/mm3 Low RBC 3.93 LAB L100.1300 12.0-15.0 g/dl Normal HGB 12.8 LAB L100.1400 37-47 % Normal HCT 39.2 LAB L100.1500 81-99 fL High MCV 99.7 LAB L100.1600 27.0-32.0 pg High MCH 32.6 LAB L100.1700 32-36 g/gl Normal MCHC 32.7 LAB L100.1810 11.6-14.6 % Normal RDW CV 13.9 LAB L100.1820 35.1-43.9 fl High RDW SD 49.8 LAB L100.1900 150-450 K/mm3 Normal PLT 276 LAB L100.2000 6.2-12.0 fl Normal MPV 10.4 LAB L100.2100 47-70 % Normal NEUT% 49.6 LAB L100.2200 19-41 % Normal LY% 37.2 LAB L100.2300 0-10 % High MONO% 10.7 LAB L100.2400 0-5 % Normal EO% 1.8 LAB L100.2500 0-1 % Normal BASO% 0.5 LAB L100.2550 0.0-0.9 % Normal IM GRAN % 0.200 Result Comment: IG% - Immature Granulocytes (promyelocytes, myelocytes and metamyelocytes) > 1% indicates that a LEFT SHIFT is Present. LAB L100.2620 2.0-7.7 X10 3/uL Normal Absolute Neut 2.7 LAB L100.2720 0.83-4.51 X10 3/ul Normal Absolute Lymph 2.05 Performed By: #### L100.0100 #### [facility] [address] [place], [address] COMPREHENSIVE METABOLIC Collected: 06/22/2017 Status: F Source: [facility] 11:37 AM [facility] TYPE CODE TESTS RESULT OUT OF RANGE REFERENCE UNITS LAB L501.0100 74-106 mg/dL Normal GLU 82 Result Comment: Please note revised GLUCOSE reference range effective 2017. LAB L501.1000 7-18 mg/dL Normal BUN 8 LAB L501.1100 0.55-1.02 mg/dL Normal CREAT,SERUM 0.79 Result Comment: The validity of the calculated GFR AND GFRAA in patients over 70 years has not been determined. Clinical correlation is essential. LAB L501.1110 >60 mL/min Normal EST GFR 81 Result Comment: Non- GFR Calc LAB L501.1115 >60 mL/min Normal EST GFR - AA 98 Result Comment: GFR Calc LAB L501.1300 10-20 RATIO Normal BUN/CRE 10.2 LAB L501.1500 6.4-8.2 g/dL T Normal PROT 7.3 LAB L501.1800 3.2-5.0 g/dL Normal ALB 4.0 LAB L501.1950 2.2-4.2 g/dL Normal GLOB 3.3 LAB L501.2000 0.9-2.4 RATIO Normal A/G 1.2 LAB L501.2200 8.5-10.1 mg/dL CA Normal 8.5 LAB L501.4100 15-37 U/L Normal AST 18 LAB L501.4305 45-117 U/L Normal ALK P 50 LAB L501.4405 13-56 U/L Normal ALT 19 LAB L501.4600 0.20-1.00 mg/dL T Normal BILI 0.50 LAB L501.5300 136-145 mmol/L NA Normal 139 LAB L501.5600 3.5-5.1 mmol/L K Normal 3.8 LAB L501.5900 98-107 mmol/L CL Normal 107 LAB L501.6100 21.0-32.0 mmol/L Normal CO2 24.0 LAB L501.6200 5-15 Normal GAP 8 Performed By: #### L500.4050, L500.4100 #### [facility] [address] [place], [place], [id number] LIPID PROFILE Collected: 06/22/2017 Status: F Source: [place] 11:37 AM [facility] [place] TYPE CODE TESTS RESULT OUT OF RANGE REFERENCE UNITS LAB L501.4900 200 mg/dL Normal CHOL 183 Result Comment: <200 mg/dL Desirable 200-240 mg/dL Borderline >240 mg/dL High Risk LAB L501.5000 mg/dL Normal TRIG 79 Result Comment: The drugs N-Acetylcysteine and Metamizole may falsely depress this assay. Serum Triglycerides Reference Interval Normal <150 mg/dL Borderline high 150 - 199 mg/dL High 200 - 499 mg/dL Very High > or = 500 mg/dL LAB L501.6400 mg/dL Normal HDL 69 Result Comment: The drugs N-Acetylcysteine and Metamizole may falsely depress this assay. Reference Range HDL <40 mg/dL Low HDL Cholesterol HDL >or= 60 mg/dL High HDL Cholesterol LAB L501.6500 0-130 mg/dL Normal LDL 98 LAB L501.6600 5-40 mg/dL Normal VLDL 16 Performed By: #### L500.4050, L500.4100 #### [facility] [address] [place], [place], [id number] HEMOGLOBIN A1C Collected: 06/22/2017 Status: F Source: [place] 11:37 [facility] REPOSITORY TYPE CODE TESTS RESULT OUT OF RANGE REFERENCE UNITS LAB L501.9985 4.2-6.3 % Normal HGB A1C 5.9 Performed By: #### L501.9985 #### [facility] [address] [place], [address] CT MYELOGRAM CERVICAL Observed: 06/06/2017 Status: F Source: [place] 10:17 AM CLINIC OTHER CAMPUS REPOSITORY * * *Final Report* * * DATE OF EXAM: Jun 06 2017 10:17AM [facility] 0482 - CT MYELOGRAM CERVICAL / PROCEDURE REASON: RADICULOPATHY * * * * Physician Interpretation * * * * EXAMINATION: CT MYELOGRAM CERVICAL HISTORY: RADICULOPATHY TECHNIQUE: CT of the cervical spine with IV contrast. Spiral, high resolution axial images were obtained from the skull base to the cervicothoracic junction with sagittal and coronal planar reconstructions. MQ: CTCSPWO_4 Contrast: Intrathecal: 18 ml of Omnipaque 300 CT Radiation dose: Integrated Dose-length product (DLP) for this visit = 425 mGy*cm. CT Dose Reduction Employed: No dose reduction techniques were required COMPARISON: None. RESULT: Counting reference: Craniocervical junction. Alignment: Alignment is anatomic. Craniocervical junction: Craniocervical junction is normal. Osseous structures/fracture: Anterior plate-screw fixation is noted involving the C4-C6 levels. Fibular grafts are noted in the C4-5 and C5-6 disc spaces. No evidence for hardware failure is noted. No evidence of acute or chronic fracture. Cervical soft tissues: The paraspinal soft tissues are within normal limits. C2-3: Canal and foramina are patent. C3-4: There is effacement of the ventral thecal sac with mild flattening of the ventral aspect of the overlying cord related to mild osteophyte formation. Neural foramen appear patent. C4-5: Canal and foramina appear patent. C5-6: Canal and foramina appear patent C6-7: Canal and foramina appear patent. C7-T1: Uncovertebral hypertrophy results in mild to moderate narrowing of the left neural foramen. IMPRESSION: At the C3-4 level, there is partial effacement of the ventral thecal sac with mild flattening of the ventral aspect of the overlying cord. Packaging Supervisor: VICKY Transcribe Date/Time: Jun 06 2017 10:32A Dictated by : DICKSON CA MD This examination was interpreted and the report reviewed and electronically signed by: DICKSON CA MD on Jun 06 2017 10:44AM EST [id number] CT MYELOGRAM THORACIC Observed: 06/06/2017 Status: F Source: [place] 10:17 AM [facility] OTHER CAMPUS REPOSITORY * * *Final Report* * * DATE OF EXAM: Jun 06 2017 10:17AM [facility] 0484 - CT MYELOGRAM THORACIC / PROCEDURE REASON: RADICULOPATHY * * * * Physician Interpretation * * * * EXAMINATION: CT MYELOGRAM THORACIC HISTORY: RADICULOPATHY TECHNIQUE: Spiral, high resolution unenhanced axial images were obtained from the cervicothoracic junction to the thoracolumbar junction with sagittal and coronal planar reconstructions. MQ: [id number]_2 Contrast: Intrathecal: 18 ml of Omnipaque 300 CT Radiation dose: Integrated Dose-length product (DLP) for this visit = 355 mGy*cm. CT Dose Reduction Employed: No dose reduction techniques were required COMPARISON: None. RESULT: Counting reference: Lumbosacral junction. For the purposes of this report, L4-5 is considered the level of the iliac crest. Alignment: Alignment is anatomic. Bone marrow / fracture: No evidence of a lytic or blastic process in the visualized spine. No evidence of acute or chronic fracture. Thoracic paraspinal soft tissues: Calcified lymph nodes are noted in the right hilum and calcified granulomas noted in the middle lobe of the right lung. Canal and foramina: The bony thoracic canal and foramina are patent. IMPRESSION: Unremarkable CT of the thoracic spine. Calcified granuloma and right hilar calcified lymph node suggests remote granulomatous infection. Packaging Supervisor: VICKY Transcribe Date/Time: Jun 06 2017 10:46A Dictated by : DICKSON CA MD This examination was interpreted and the report reviewed and electronically signed by: DICKSON CA MD on Jun 06 2017 10:48AM EST [id number] IR XR MYELOGRAM Observed: 06/06/2017 Status: F Source: [facility] 10:15 AM [facility] OTHER CAMPUS REPOSITORY * * *Final Report* * * DATE OF EXAM: Jun 06 2017 10:15AM [facility] 0890 - IR XR MYELOGRAM CERVICAL / PROCEDURE REASON: RADICULOPATHY OF CERVICAL REGION * * * * Physician Interpretation * * * * PROCEDURE: Cervical and thoracic myelograms INDICATION: RADICULOPATHY OF CERVICAL and thoracic REGION. COMPARISON: None FINDINGS: Informed written consent was obtained. The nature of the procedure was explained to the patient with discussion of the risks, benefits, and alternatives. The patient's questions were answered and the patient understands and elects to proceed with the procedure. The patient was placed prone on the fluoroscopic table. Using aseptic technique, 6 mL of 1% lidocaine for local anesthesia and fluoroscopic guidance, a 22-gauge spinal needle was entered into the thecal sac at the L3 level. Approximately 18 mL of Omnipaque 300 were instilled under fluoroscopic guidance. The table was tilted headdown surrounding the contrast into the thoracic and cervical regions. Limited imaging reveals no abnormality in the thoracic region. In the cervical region, there is anterior plate fixation and fusion from C4 through C6. There is an anterior extradural defect at C3-4. The patient tolerated the procedure well and was escorted to the CT suite. No complications were encountered. IMPRESSION: Anterior extradural defect at C3-4. Unremarkable thoracic spine. Please see the CT reports. Packaging Supervisor: VICKY Transcribe Date/Time: Jun 06 2017 3:33P Dictated by : LUX WALDRON MD This examination was interpreted and the report reviewed and electronically signed by: LUX WALDRON MD on Jun 06 2017 3:37PM EST XR CERVICAL 2V Observed: 06/06/2017 Status: F Source: [place] FLEX/EXT 10:15 AM CLINIC OTHER CAMPUS REPOSITORY * * *Final Report* * * DATE OF EXAM: Jun 06 2017 10:15AM [facility] [id number] - XR CERVICAL 2V FLEX/EXT / PROCEDURE REASON: M54.16,M54,12,M54.14 * * * * Physician Interpretation * * * * PROCEDURE: Cervical spine INDICATION: M54.16,M54,12,M54.14. TECHNIQUE: XR CERVICAL 2V FLEX/EXT COMPARISON: None FINDINGS: Crosstable lateral flexion and extension lateral views were obtained after the instillation of intrathecal contrast. There is interbody fusion with anterior plate fixation from C4 through C6, intact. There is a prominent anterior extradural defect at C3-4. There is some movement between flexion and extension at the C3-4 level with anterior extradural defect accentuated in extension and diminished in flexion. 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 Packaging Supervisor: VICKY Transcribe Date/Time: Jun 06 2017 3:37P Dictated by : LUX WALDRON MD This examination was interpreted and the report reviewed and electronically signed by: LUX WALDRON MD on Jun 06 2017 3:38PM EST [id number] OP NOT Observed: 06/06/2017 Status: COMPLETED Source: [place] 10:04 AM [facility] [place] REPOSITORY HNO ID: [id number] Author: Lux Waldron Service: Radiology Author Type: Physician Type: Brief Op Note Filed: 06/06/2017 10:04 AM Note Text: BRIEF OPERATIVE NOTE Patient Name: Marce Law Log ID: [id number] Surgery Date: 06/06/2017 Surgeon(s) and Supervisor Sewing Department(s): Surgeon(s) and Role: * Lux Waldron - Primary Procedures and Anesthesia: Procedure(s) and Anesthesia Type: * MYELOGRAPHY 2 OR MORE REGIONS RADIOLOGICAL SUPERVISION AND INTERPRETATION - Local Findings: na Estimated Blood Loss: None Intravenous Fluids: None Condition: stable Specimens: na Postop Diagnosis: * No post-op diagnosis entered * Signature: Lux Waldron MD Date: June 06, 2017 Time: 10:04 AM PT ED Observed: 06/06/2017 Status: COMPLETED Source: [place] 8:17 AM [facility] REPOSITORY HNO ID: [id number] Author: Elliot Momin RN Service: Nursing Author Type: Registered Nurse Type: Patient Education Filed: 06/06/2017 8:18 AM Note Text: PATIENT EDUCATION TOPIC: PROCEDURE / SURGERY: Pre-op Teaching: PATIENT NAME: Marce Law PATIENT LOCATION: [place] [facility]/[place] [facility] READINESS TO LEARN COGNITIVE ABILITY: Alert and oriented MOTIVATION TO LEARN: Eager FAMILY SUPPORT: High - Very involved in pt care INSTRUCTION PROVIDED TO: Patient and family member PATIENT LEARNS BEST BY: Individual Instruction Verbal Instruction FACTORS AFFECTING LEARNING: None PHYSICAL LIMITATIONS AFFECTING LEARNING: None LEARNING RESPONSE DIAGNOSIS: ADULT: PATIENT/FAMILY RESPONSE: Verbalizes understanding of: METHOD OF INSTRUCTION: Individual instruction Verbal instruction FOLLOW-UP PLAN: Patient instructed to call with any further issues Follow-up with Primary Care INSTRUCTIONAL AIDS USED: NA SUPPLEMENTAL MATERIAL PROVIDED TO PATIENT: None REFERRAL (RECOMMENDATION): None Electronically Signed By: Elliot Momin RN CBC Collected: 06/06/2017 Status: F Source: [place] 8:15 AM [facility] OTHER CAMPUS REPOSITORY TYPE CODE TESTS RESULT OUT OF REFERENCE UNITS RANGE LAB WBC 3.70-11.00 k/uL WBC 7.39 LAB RBC 3.90-5.20 m/uL Low RBC 3.77 LAB HGB 11.5-15.5 g/dL Hemoglobin 12.0 LAB HCT 36.0-46.0 % Hematocrit 37.6 LAB MCV 80.0-100.0 fL MCV 99.7 LAB MCH 26.0-34.0 pG MCH 31.8 LAB MCHC 30.5-36.0 g/dL MCHC 31.9 LAB RDWCV 11.5-15.0 % RDW-CV 14.3 LAB PLTCT 150-400 k/uL Platelet Count 276 LAB MPV 9.0-12.7 fL MPV 9.3 Performed By: #### CBC, PT #### [facility] [address] [place] [address] PROTIME Collected: 06/06/2017 Status: F Source: [place] 8:15 AM [facility] OTHER CAMPUS REPOSITORY TYPE CODE TESTS RESULT OUT OF RANGE REFERENCE UNITS LAB PSEC 9.7-13.0 sec PT Sec 10.2 LAB INR 0.9-1.3 PT INR 1.0 Result Comment: Vitamin K Antagonist (VKA) Therapeutic Range: INR 2 to 3 (Target INR of 2.5) Note: For patients treated with VKA drugs, such as warfarin, the [employer] 2012 Guideline recommends a therapeutic INR range of 2 to 3 (target INR of 2.5). This recommendation includes high-risk patients with antiphospholipid syndrome with previous arterial or venous thromboembolism, current-generation mechanical or bioprosthetic aortic heart valve replacement. Note: Patients with mechanical aortic valve replacement and additional risk factors for thromboembolic events (atrial fibrillation, previous thromboembolism, LV dysfunction, hypercoagulable conditions) or an older generation mechanical AVR (i.e., ball in-Cage) or any mechanical MVR should have a INR therapeutic range of 2.5 to 3.5 (target INR of 3). Osman ALVAREZ, et al. Chest 2012, 141:7S-47S Mihir GUO et al. [facility] 2017, 70: [phone] Performed By: #### CBC, PT #### [facility] [address] [place] [address] PROGRESS Observed: 06/01/2017 Status: COMPLETED Source: [place] 11:19 AM [facility] REPOSITORY HNO ID: [id number] Author: Alex (Od) Deric Service: (none) Author Type: AGENT LICENSING CLERK Type: Progress Notes Filed: 06/01/2017 11:20 AM Note Text: ASSESSMENT/PLAN: 1. Dry eye syndrome of both eyes - ICD9: 375.15, ICD10: H04.123 (primary diagnosis) Continue: Current Ophthalmic Meds cycloSPORINE (RESTASIS) 0.05 % ophthalmic emulsion (Taking) Use 1 Drop in both eyes twice daily. Systane Balance Artificial tears, 1 drop, four times a day, Both eyes. 2. Vitreous floaters of both eyes - ICD9: 379.24, ICD10: H43.393 Stable / Observe 3. Status post LASIK surgery of both eyes - ICD9: V45.69, ICD10: Z98.890 Stable / Observe Alex Suresh, PANCHO I have confirmed and edited as necessary the relevant ophthalmic history, review of systems, surgical history, and ophthalmological examination findings as obtained by the ophthalmic technical staff. I have seen and examined Marce Law. I have discussed the examination findings, diagnosis, and treatment options with Marce Law and/or her family. I have also reviewed and agree with the assessment and plan as stated above and agree with all its relevant components. I gave the patient the opportunity to ask questions about the findings, diagnosis, and treatment options. HOSP Observed: 05/18/2017 Status: COMPLETED Source: [place] 12:00 AM [facility] REPOSITORY Patient:Marce Law MRN: <[id number]> Height:5' 6.535(1.69 m) Weight:145 lb 8.1 oz (66 kg) Outpatient Medications as of 06/06/17: cycloSPORINE (RESTASIS) 0.05 % ophthalmic emulsion rosuvastatin (CRESTOR) 10 mg tablet escitalopram oxalate (LEXAPRO) 20 mg tablet diazePAM (VALIUM) 5 mg tablet lactobacillus comb no.10 (PROBIOTIC) 20 billion cell cap albuterol HFA (PROAIR HFA) 90 mcg/actuation inhaler liothyronine (CYTOMEL) 5 mcg tablet predniSONE (DELTASONE) 5 mg tablet CALCIUM CITRATE/VITAMIN D3 (CALCIUM CITRATE + D ORAL) denosumab (PROLIA) 60 mg/mL syrg baclofen (LIORESAL) 10 mg tablet topiramate (TOPAMAX) 50 mg tablet cetirizine (ZYRTEC) 10 mg tablet levothyroxine (SYNTHROID) 150 mcg tablet HYDROcodone-Acetaminophen (NORCO) 7.5-325 mg per tablet busPIRone (BUSPAR) 10 mg tablet COMPOUNDED PRESCRIPTION Admission/Clinic Administered Medications as of 06/06/17: acetaminophen 500-1,000 mg tab(s) (TYLENOL) Problem List: Spinal stenosis, unspecified region other than cervical [M48.00] Cervicalgia [M54.2] Lumbago [M54.5] Neoplasm of uncertain behavior of skin [D48.5] Hyperlipemia [E78.5] Esophageal reflux [K21.9] 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] Acquired hypothyroidism [E03.9] Degeneration of lumbar or lumbosacral intervertebral disc [M51.37] Rheumatoid arthritis(714.0) [M06.9] Arthropathy, unspecified, site unspecified [M12.9] Anxiety state, unspecified [F41.1] Acute gastritis without mention of hemorrhage [K29.00] 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] Vitreous floaters of both eyes [H43.393] Punctate keratitis of both eyes [H16.143] Status post LASIK surgery of both eyes [Z98.890] Dry eye syndrome of both eyes [H04.123] Allergies: Seasonal Allergies Date Verified: 06/06/17 Lab Values Lab Value Units Date High Low MULU* 37.6 % 06/06/2017 46.0 36.0 Progress Notes (RADIO CT SCAN [facility]): Swetha Zamora, CT, CT 06/06/2017 10:14 AM Sign at close encounter Radiology Service Progress Note PATIENT NAME: Marce Law DATE OF SERVICE: June 06, 2017 TIME: 10:11 AM PATIENT IDENTITY VERIFICATION COMPLETED USING TWO (2) METHODS: Patient confirmed name verbally and Date of . PATIENT GENDER DATA: Female. status: : No status: NO. PATIENT RELEVANT IMPLANT DATA REVIEWED: Not Applicable RADIOLOGY DEPARTMENT: CT; Exam(s) Completed: Myelogram CANDT PERIPHERAL IV DATA: Not applicable SIGNED BY: JOEY Peña June 06, 2017 10:11 AM Progress Notes ([facility]): Alex Suresh, OD 06/01/2017 11:20 AM Signed ASSESSMENT/PLAN: 1. Dry eye syndrome of both eyes - ICD9: 375.15, ICD10: H04.123 (primary diagnosis) Continue: Current Ophthalmic Meds cycloSPORINE (RESTASIS) 0.05 % ophthalmic emulsion (Taking) Use 1 Drop in both eyes twice daily. Systane Balance Artificial tears, 1 drop, four times a day, Both eyes. 2. Vitreous floaters of both eyes - ICD9: 379.24, ICD10: H43.393 Stable / Observe 3. Status post LASIK surgery of both eyes - ICD9: V45.69, ICD10: Z98.890 Stable / Observe Alex Suresh, OD I have confirmed and edited as necessary the relevant ophthalmic history, review of systems, surgical history, and ophthalmological examination findings as obtained by the ophthalmic technical staff. I have seen and examined Marce Law. I have discussed the examination findings, diagnosis, and treatment options with Marce Law and/or her family. I have also reviewed and agree with the assessment and plan as stated above and agree with all its relevant components. I gave the patient the opportunity to ask questions about the findings, diagnosis, and treatment options. Alex Suresh, OD 06/01/2017 11:20 AM Signed Continue: Current Ophthalmic Meds cycloSPORINE (RESTASIS) 0.05 % ophthalmic emulsion (Taking) Use 1 Drop in both eyes twice daily. Systane Balance Artificial tears, 1 drop, four times a day, Both eyes. If you have any questions or concerns, please contact our office at [phone]. After office hours or on the weekend, please call the telephone worker at [facility] ([phone]) and page Dr. Garcia. PROGRESS Observed: 05/16/2017 Status: COMPLETED Source: [place] 10:13 AM [facility] REPOSITORY O ID: [id number] Author: Eusebio Braswell Jr. Service: (none) Author Type: Physician Type: Progress Notes Filed: 05/16/2017 10:42 AM Note Text: ESTABLISHED PATIENT VISIT CHIEF COMPLAINT: Episodes of zoning out HISTORY OF PRESENT ILLNESS: Marce Law is a 56 year old female, BMI 23.05 kg/m2 whom I last saw in 01/2017. At that time patient was having episodes of zoning out and other behaviors that were of unclear etiology. She had a known history of extensive neurology workups as per my documentation. My recommendations at that time is that patient be admitted to the EMU for continuous EEG monitoring. However, she did not comply with directions. Patient states she really does not think she is having seizures, but instead states that she thinks she is falling asleep. 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 States the other night, she had a cup of tea where she took a sip while watching tv, and then suddenly started falling forward while seated, catching herself in the process. She states no recent changes in medications (none since last visit). Now states symptoms more prominent in the late afternoon and go on and on. States in the mid to late afternoon she becomes an agitated mess and feels like she is coming out of her skin. States that as evening comes around symptoms worsen. However feels tired. She states that moving around does not improve her symptoms. Spends the evening watching tv. She states although she is tired, she cannot fall asleep throughout the night. States will go to bed eventually between 1-3 AM. If has to get up will do so but if does not have to get up, stays in bed until 10-11AM. 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 No naps during the day. States if driving after 6PM she is uncertain she will make it home and feels that she will fall asleep behind the wheel. Again, movement during the night time hours does not relieve her symptoms. Family has told her when she is agitated she does not use the correct words to communicate (she did not tell them the correct day of her appointment so that they would not be here today). Family has also told patient that she becomes belligerent; she acts like she is coming unglued. Patient is on Buspar as Rx'd by Dr. Brown. She states she takes 4 per day, but at times will take up to 6 per day. States taking Buspar does improve her symptoms. During episodes of agitation, patient feels shaky. States she feels like she is coming out of her skin. Again, I have asked 4x during visit if symptoms are improving with activity and they do not -- I can still feel the boiling inside. She has previously been seen by counseling for anxiety. She cannot identify any other exacerbating factors. If she does fall asleep on the couch (occurs about twice per week) she will fall asleep early and stay there the rest of the night. She currently smokes <1/2 ppd and no ETOH use. She had a prior PSG that was reportedly without DANIELLA. She is not endorsing DANIELLA symptoms. Patient is in pain mgmt. REVIEW OF SYSTEMS GENERAL:No weight loss, malaise or fevers. HEENT:Negative for frequent or significant headaches, No changes in hearing or vision, no nose bleeds or other nasal problems NECK:Negative for lumps, goiter, pain and significant neck swelling RESPIRATORY: Negative for cough, wheezing or shortness of breath. CARDIOVASCULAR: Negative for chest pain, leg swelling or palpitations. GASTROINTESTINAL: Negative for abdominal discomfort, blood in stools or black stools or change in bowel habits GENITOURINARY: No history of dysuria, frequency or incontinence MUSCULOSKELETAL: Negative for joint pain or swelling, back pain or muscle pain. NEUROLOGIC:Negative for focal numbness or weakness, headaches and dizziness or syncope, vision changes, speech/language changes, changes in gait or falls -- besides those complaints as above in HPI. SKIN:Negative for lesions, rash, and itching. HEMATOLOGIC/LYMPHATIC/IMMUNOLOGIC:Negative for prolonged bleeding, bruising easily or swollen nodes. ENDOCRINE: Negative for cold or heat intolerance, polyuria, polydipsia and goiter. The remainder of the ROS was reviewed and is negative. LAB/IMAGING: Those performed since patient's last visit have been reviewed. WBC (k/uL) Date Value 03/01/2017 9.82 RBC (m/uL) Date Value 03/01/2017 3.91 Hemoglobin (g/dL) Date Value 03/01/2017 12.4 Hematocrit (%) Date Value 03/01/2017 39.7 MCV (fL) Date Value 03/01/2017 101.5 (H) MCH (pG) Date Value 03/01/2017 31.7 MCHC (g/dL) Date Value 03/01/2017 31.2 RDW-CV (%) Date Value 03/01/2017 13.4 Platelet Count (k/uL) Date Value 03/01/2017 291 MPV (fL) Date Value 03/01/2017 10.2 Glucose (mg/dL) Date Value 03/01/2017 90 BUN (mg/dL) Date Value 03/01/2017 7 Creatinine (mg/dL) Date Value 03/01/2017 0.86 Sodium (mmol/L) Date Value 03/01/2017 138 Potassium (mmol/L) Date Value 03/01/2017 4.0 Chloride (mmol/L) Date Value 03/01/2017 99 CO2 (mmol/L) Date Value 03/01/2017 25 Protein, Total (g/dL) Date Value 03/01/2017 7.6 Albumin (g/dL) Date Value 03/01/2017 4.8 Calcium (mg/dL) Date Value 03/01/2017 9.5 Alkaline Phosphatase (U/L) Date Value 03/01/2017 47 Bilirubin, Total (mg/dL) Date Value 03/01/2017 0.4 AST (U/L) Date Value 03/01/2017 26 ALT (U/L) Date Value 03/01/2017 31 JACQUI (no units) Date Value 08/09/2016 Negative Cryoglobulin Quant, Blood (ug/mL) Date Value 08/09/2016 48 Rheumatoid Factor (IU/mL) Date Value 08/09/2016 <10 Hep C Antibody IA (no units) Date Value 08/09/2016 Negative URINLAYSIS Specific [place], Ur Date Value Ref Range Status 02/23/2017 1.008 1.005 - 1.030 Final Glucose, Urine Date Value Ref Range Status 02/23/2017 Negative Negative mg/dL Final Bilirubin, Urine Date Value Ref Range Status 02/23/2017 Negative Negative Final Ketones, Urine Date Value Ref Range Status 02/23/2017 Negative Negative Final Hemoglobin/Blood,Ur Date Value Ref Range Status 02/23/2017 Negative Negative Final Protein, Urine Date Value Ref Range Status 02/23/2017 Negative Negative mg/dL Final WBC, Urine Date Value Ref Range Status 11/11/2010 0-5 /HPF Final MEDICATIONS: cycloSPORINE (RESTASIS) 0.05 % ophthalmic emulsion Use 1 Drop in both eyes twice daily. gabapentin (NEURONTIN) 100 mg capsule Take 100 mg by mouth three times daily. 100mg morning, 100mg afternoon, 200mg at bedtime rosuvastatin (CRESTOR) 10 mg tablet Take 10 mg by mouth daily at bedtime. escitalopram oxalate (LEXAPRO) 20 mg tablet Take 20 mg by mouth once daily. diazePAM (VALIUM) 5 mg tablet Take 5 mg by mouth daily at bedtime. lactobacillus comb no.10 (PROBIOTIC) 20 billion cell cap Take 2 capsules by mouth once daily. albuterol HFA (PROAIR HFA) 90 mcg/actuation inhaler Inhale 2 Puffs as instructed four times daily as needed. liothyronine (CYTOMEL) 5 mcg tablet Take 5 mcg by mouth once daily. predniSONE (DELTASONE) 5 mg tablet Take 7.5 mg by mouth once daily. CALCIUM CITRATE/VITAMIN D3 (CALCIUM CITRATE + D ORAL) Take by mouth twice daily. denosumab (PROLIA) 60 mg/mL syrg Inject 60 mg subcutaneously once every 6 months. baclofen (LIORESAL) 10 mg tablet Take 10 mg by mouth three times daily. topiramate (TOPAMAX) 50 mg tablet Take 3 tablets by mouth daily at bedtime. cetirizine (ZYRTEC) 10 mg tablet Take 1 tablet by mouth once daily. levothyroxine (SYNTHROID) 150 mcg tablet Take 150 mcg by mouth. 1 tablet once a day. 1/2 tablet on Monday, Monday, and Monday HYDROcodone-Acetaminophen (NORCO) 7.5-325 mg per tablet Take 1 tablet by mouth every 6 hours as needed. busPIRone (BUSPAR) 10 mg tablet Take 10 mg by mouth three times daily. COMPOUNDED PRESCRIPTION vitamin D3--1999units HISTORIES PAST MEDICAL HISTORY Diagnosis Date - Abnormal mammogram, unspecified left breast - Acquired spondylolisthesis - Anxiety state, unspecified - Arthropathy, unspecified, site unspecified - Brachial neuritis or radiculitis NOS - Cervicalgia - Chronic pain syndrome - Degeneration of lumbar or lumbosacral intervertebral disc - Dysphagia, unspecified(727.07) - Enthesopathy of hip region - Esophageal reflux - Fibroadenosis of breast - Lumbago - Neoplasm of uncertain behavior of skin - Osteoporosis, unspecified - Other and unspecified hyperlipidemia - Other and un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 - Other chest pain - Other forms of migraine - Rheumatoid arthritis(714.0) - Spinal stenosis, unspecified region other than cervical - Unspecified disorder of thyroid - Unspecified hypothyroidism - Unspecified sinusitis (chronic) FAMILY HISTORY Problem Relation Age of Onset - Breast Cancer Mother - Osteoporosis Mother - Hypertension Father - Alcohol/Drug Brother - Allergies Brother - Asthma Brother - Asthma Daughter - Asthma Son - Colon Cancer Maternal Grandmother - Cancer Other brain, lung, liver,pancreas - Coronary Artery Disease Paternal Grandfather - Hypertension Paternal Grandfather - Prostate Cancer Paternal Grandfather - Stroke Paternal Grandfather SOCIAL HISTORY Social History Substance Use Topics - Smoking status: Current Every Day Smoker Packs/day: 0.50 Years: 30.00 Types: Cigarettes - Smokeless tobacco: Never Used Comment: less than 1/2 pack - Alcohol use Yes Comment: Occasional PHYSICAL EXAMINATION BP 106/68 (BP Site: Left Arm, BP Position: Sitting, BP Cuff Size: Regular Adult) Pulse 79 Wt 65.8 kg (145 lb) SpO2 100% BMI 23.05 kg/m2 GENERAL EXAM: General appearance: NAD, pleasant. HEENT: NC/AT, nasal congestion absent, no oral lesions, membranes moist. NECK: No masses, supple. Lungs: CTA bilaterally. CV: RRR nl S1, S2. No carotid bruits. Abd: Soft, nontender, nondistended. Bowel sounds present. Extr: No cyanosis, clubbing or edema. No evidence of fasciculations. Extremity pulses palpable and normal. Skin: Cool to touch. No rash. ? NEUROLOGICAL EXAM: General: Awake, alert, oriented x3 (person,place,time), speech fluent, no dysarthria; comprehension, naming, repetition intact. Short and long line teamster memory intact. Fund of knowledge grossly normal by MOCA. CN: PERRL, fundi with no evidence of papilledema, EOMI and without nystagmus, VFF to confrontation, facial sensation and strength are normal and symmetric, hearing is intact to finger rub bilaterally, palate and tongue movements are intact and symmetric. SCM and trapezius strength normal. Motor: Normal tone, bulk (throughout extremities x4). Strength exam non focal but poor effort throughout. Functional pro drift on the right. Reflexes: 2/4 and symmetric, plantar stimulation is flexor. Coordination: FNF, CAROLINE, HTS intact. No tremors. Sensation: Light touch intact throughout. No evidence of neglect. Gait: Narrow based and stable with normal stride and arm swing. Assessment and Plan: ASSESSMENT/PLAN: 1. Anxiety - ICD9: 300.00, ICD10: F41.9 (primary diagnosis) Patient with agitation and anxiety during the late afternoon into night time hours. Concerning in interview, given lack of sleep was whether symptoms represented RLS (also given circadian nature). However, she is reporting that these symptoms do not improve with movement, and also do not improve late at night with diazepam. At this point, given medications she is on, feel appropriate for her to be evaluated by psychiatry to determine if changes in medications needed. She may also benefit from CBT and biofeedback therapy. Thus CONSULT TO PSYCHIATRY. 2. Daytime sleepiness - ICD9: 780.54, ICD10: R40.0 Likely multifactorial. Prior PSG unremarkable. She has components of lack of sleep due to anxiety and sleep onset insomnia, possible circadian abnormality due to anxiety. She is also on multiple pain meds and other meds that could result in EDS. At this time will hold on further sleep testing given prior PSG unremarkable and no s/s of OSAS. She has no prior history to suggest narcolepsy triad. However, if still with EDS following eval of #1, will then consider MSLT. She is not to drive or operate heavy machinery when sleepy. 3. Insomnia, unspecified type - ICD9: 780.52, ICD10: G47.00 Multifactorial but by history, suggests etiology of #1. Referral to psychiatry as above. 4. Altered mental status, unspecified altered mental status type - ICD9: 780.97, ICD10: R41.82 Prior concerns for seizures by history provided by family last visit. However, patient wants no further evaluation for such. Again, EMU stay was ordered last visit. She declines EMU. Eusebio Braswell MD I spent 40 minutes in the visit, with more than 50% of the total [id number] time of the visit in counseling / coordination of care. CNOV Observed: 05/16/2017 Status: COMPLETED Source: [place] 9:40 AM [facility] REPOSITORY Office Visit (NEURMM) MARCE LAW ([id number]) 1960 F Date Time Provider Department 05/16/17 9:40 AM EUSEBIO BRASWELL JR NEUR During your visit today, we recorded the following information about you: Pulse Blood pressure Weight 79/minute 106/68 65.8 kg Eusebio Braswell MD 05/16/2017 10:42 AM Signed ESTABLISHED PATIENT VISIT CHIEF COMPLAINT: Episodes of ANDquot;zoning outANDquot; HISTORY OF PRESENT ILLNESS: Marce Law is a 56 year old female, BMI 23.05 kg/m2 whom I last saw in 01/2017. At that time patient was having episodes of ANDquot;zoning outANDquot; and other behaviors that were of unclear etiology. She had a known history of extensive neurology workups as per my documentation. My recommendations at that time is that patient be admitted to the EMU for continuous EEG monitoring. However, she did not comply with directions. Patient states she really does not think she is having seizures, but instead states that she thinks she is ANDquot;falling asleepANDquot;. 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 States the other night, she had a cup of tea where she took a sip while watching tv, and then suddenly started falling forward while seated, catching herself in the process. She states no recent changes in medications (none since last visit). Now states symptoms more prominent in the late afternoon and go ANDquot;on and onANDquot;. States in the mid to late afternoon she becomes an agitated mess and feels like she is ANDquot;coming out of her skinANDquot;. States that as evening comes around symptoms worsen. However feels tired. She states that moving around does not improve her symptoms. Spends the evening watching tv. She states although she is tired, she cannot fall asleep throughout the night. States will go to bed eventually between 1-3 AM. If has to get up will do so but if does not have to get up, stays in bed until 10-11AM. 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 No naps during the day. States if driving after 6PM she is uncertain she will make it home and feels that she will fall asleep behind the wheel. Again, movement during the night time hours does not relieve her symptoms. Family has told her when she is agitated she does not use the correct words to communicate (she did not tell them the correct day of her appointment so that they would not be here today). Family has also told patient that she becomes belligerent; she acts like she is ANDquot;coming ungluedANDquot;. Patient is on Buspar as Rx'd by Dr. Brown. She states she takes 4 per day, but at times will take up to 6 per day. States taking Buspar does improve her symptoms. During episodes of agitation, patient feels ANDquot;shakyANDquot;. States she feels like she is coming out of her skin. Again, I have asked 4x during visit if symptoms are improving with activity and they do not -- ANDquot;I can still feel the boiling insideANDquot;. She has previously been seen by counseling for anxiety. She cannot identify any other exacerbating factors. If she does fall asleep on the couch (occurs about twice per week) she will fall asleep early and stay there the rest of the night. She currently smokes ANDlt;1/2 ppd and no ETOH use. She had a prior PSG that was reportedly without DANIELLA. She is not endorsing DANIELLA symptoms. Patient is in pain mgmt. REVIEW OF SYSTEMS GENERAL:No weight loss, malaise or fevers. HEENT:Negative for frequent or significant headaches, No changes in hearing or vision, no nose bleeds or other nasal problems NECK:Negative for lumps, goiter, pain and significant neck swelling RESPIRATORY: Negative for cough, wheezing or shortness of breath. CARDIOVASCULAR: Negative for chest pain, leg swelling or palpitations. GASTROINTESTINAL: Negative for abdominal discomfort, blood in stools or black stools or change in bowel habits GENITOURINARY: No history of dysuria, frequency or incontinence MUSCULOSKELETAL: Negative for joint pain or swelling, back pain or muscle pain. NEUROLOGIC:Negative for focal numbness or weakness, headaches and dizziness or syncope, vision changes, speech/language changes, changes in gait or falls -- besides those complaints as above in HPI. SKIN:Negative for lesions, rash, and itching. HEMATOLOGIC/LYMPHATIC/IMMUNOLOGIC:Negative for prolonged bleeding, bruising easily or swollen nodes. ENDOCRINE: Negative for cold or heat intolerance, polyuria, polydipsia and goiter. The remainder of the ROS was reviewed and is negative. LAB/IMAGING: Those performed since patient's last visit have been reviewed. WBC (k/uL) Date Value 03/01/2017 9.82 RBC (m/uL) Date Value 03/01/2017 3.91 Hemoglobin (g/dL) Date Value 03/01/2017 12.4 Hematocrit (%) Date Value 03/01/2017 39.7 MCV (fL) Date Value 03/01/2017 101.5 (H) MCH (pG) Date Value 03/01/2017 31.7 MCHC (g/dL) Date Value 03/01/2017 31.2 RDW-CV (%) Date Value 03/01/2017 13.4 Platelet Count (k/uL) Date Value 03/01/2017 291 MPV (fL) Date Value 03/01/2017 10.2 Glucose (mg/dL) Date Value 03/01/2017 90 BUN (mg/dL) Date Value 03/01/2017 7 Creatinine (mg/dL) Date Value 03/01/2017 0.86 Sodium (mmol/L) Date Value 03/01/2017 138 Potassium (mmol/L) Date Value 03/01/2017 4.0 Chloride (mmol/L) Date Value 03/01/2017 99 CO2 (mmol/L) Date Value 03/01/2017 25 Protein, Total (g/dL) Date Value 03/01/2017 7.6 Albumin (g/dL) Date Value 03/01/2017 4.8 Calcium (mg/dL) Date Value 03/01/2017 9.5 Alkaline Phosphatase (U/L) Date Value 03/01/2017 47 Bilirubin, Total (mg/dL) Date Value 03/01/2017 0.4 AST (U/L) Date Value 03/01/2017 26 ALT (U/L) Date Value 03/01/2017 31 JACQUI (no units) Date Value 08/09/2016 Negative Cryoglobulin Quant, Blood (ug/mL) Date Value 08/09/2016 48 Rheumatoid Factor (IU/mL) Date Value 08/09/2016 ANDlt;10 Hep C Antibody IA (no units) Date Value 08/09/2016 Negative URINLAYSIS Specific [place], Ur Date Value Ref Range Status 02/23/2017 1.008 1.005 - 1.030 Final Glucose, Urine Date Value Ref Range Status 02/23/2017 Negative Negative mg/dL Final Bilirubin, Urine Date Value Ref Range Status 02/23/2017 Negative Negative Final Ketones, Urine Date Value Ref Range Status 02/23/2017 Negative Negative Final Hemoglobin/Blood,Ur Date Value Ref Range Status 02/23/2017 Negative Negative Final Protein, Urine Date Value Ref Range Status 02/23/2017 Negative Negative mg/dL Final WBC, Urine Date Value Ref Range Status 11/11/2010 0-5 /HPF Final MEDICATIONS: cycloSPORINE (RESTASIS) 0.05 % ophthalmic emulsion Use 1 Drop in both eyes twice daily. gabapentin (NEURONTIN) 100 mg capsule Take 100 mg by mouth three times daily. 100mg morning, 100mg afternoon, 200mg at bedtime rosuvastatin (CRESTOR) 10 mg tablet Take 10 mg by mouth daily at bedtime. escitalopram oxalate (LEXAPRO) 20 mg tablet Take 20 mg by mouth once daily. diazePAM (VALIUM) 5 mg tablet Take 5 mg by mouth daily at bedtime. lactobacillus comb no.10 (PROBIOTIC) 20 billion cell cap Take 2 capsules by mouth once daily. albuterol HFA (PROAIR HFA) 90 mcg/actuation inhaler Inhale 2 Puffs as instructed four times daily as needed. liothyronine (CYTOMEL) 5 mcg tablet Take 5 mcg by mouth once daily. predniSONE (DELTASONE) 5 mg tablet Take 7.5 mg by mouth once daily. CALCIUM CITRATE/VITAMIN D3 (CALCIUM CITRATE + D ORAL) Take by mouth twice daily. denosumab (PROLIA) 60 mg/mL syrg Inject 60 mg subcutaneously once every 6 months. baclofen (LIORESAL) 10 mg tablet Take 10 mg by mouth three times daily. topiramate (TOPAMAX) 50 mg tablet Take 3 tablets by mouth daily at bedtime. cetirizine (ZYRTEC) 10 mg tablet Take 1 tablet by mouth once daily. levothyroxine (SYNTHROID) 150 mcg tablet Take 150 mcg by mouth. 1 tablet once a day. 1/2 tablet on Monday, Monday, and Monday HYDROcodone-Acetaminophen (NORCO) 7.5-325 mg per tablet Take 1 tablet by mouth every 6 hours as needed. busPIRone (BUSPAR) 10 mg tablet Take 10 mg by mouth three times daily. COMPOUNDED PRESCRIPTION vitamin D3--1999units HISTORIES PAST MEDICAL HISTORY Diagnosis Date - Abnormal mammogram, unspecified left breast - Acquired spondylolisthesis - Anxiety state, unspecified - Arthropathy, unspecified, site unspecified - Brachial neuritis or radiculitis NOS - Cervicalgia - Chronic pain syndrome - Degeneration of lumbar or lumbosacral intervertebral disc - Dysphagia, unspecified(787.20) - Enthesopathy of hip region - Esophageal reflux - Fibroadenosis of breast - Lumbago - Neoplasm of uncertain behavior of skin - Osteoporosis, unspecified - Other and unspecified hyperlipidemia - Other and un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 - Other chest pain - Other forms of migraine - Rheumatoid arthritis(714.0) - Spinal stenosis, unspecified region other than cervical - Unspecified disorder of thyroid - Unspecified hypothyroidism - Unspecified sinusitis (chronic) FAMILY HISTORY Problem Relation Age of Onset - Breast Cancer Mother - Osteoporosis Mother - Hypertension Father - Alcohol/Drug Brother - Allergies Brother - Asthma Brother - Asthma Daughter - Asthma Son - Colon Cancer Maternal Grandmother - Cancer Other brain, lung, liver,pancreas - Coronary Artery Disease Paternal Grandfather - Hypertension Paternal Grandfather - Prostate Cancer Paternal Grandfather - Stroke Paternal Grandfather SOCIAL HISTORY Social History Substance Use Topics - Smoking status: Current Every Day Smoker Packs/day: 0.50 Years: 30.00 Types: Cigarettes - Smokeless tobacco: Never Used Comment: less than 1/2 pack - Alcohol use Yes Comment: Occasional PHYSICAL EXAMINATION BP 106/68 (BP Site: Left Arm, BP Position: Sitting, BP Cuff Size: Regular Adult) Pulse 79 Wt 65.8 kg (145 lb) SpO2 100% BMI 23.05 kg/m2 GENERAL EXAM: General appearance: NAD, pleasant. HEENT: NC/AT, nasal congestion absent, no oral lesions, membranes moist. NECK: No masses, supple. Lungs: CTA bilaterally. CV: RRR nl S1, S2. No carotid bruits. Abd: Soft, nontender, nondistended. Bowel sounds present. Extr: No cyanosis, clubbing or edema. No evidence of fasciculations. Extremity pulses palpable and normal. Skin: Cool to touch. No rash. ? NEUROLOGICAL EXAM: General: Awake, alert, oriented x3 (person,place,time), speech fluent, no dysarthria; comprehension, naming, repetition intact. Short and long line teamster memory intact. Fund of knowledge grossly normal by MOCA. CN: PERRL, fundi with no evidence of papilledema, EOMI and without nystagmus, VFF to confrontation, facial sensation and strength are normal and symmetric, hearing is intact to finger rub bilaterally, palate and tongue movements are intact and symmetric. SCM and trapezius strength normal. Motor: Normal tone, bulk (throughout extremities x4). Strength exam non focal but poor effort throughout. Functional pro drift on the right. Reflexes: 2/4 and symmetric, plantar stimulation is flexor. Coordination: FNF, CAROLINE, HTS intact. No tremors. Sensation: Light touch intact throughout. No evidence of neglect. Gait: Narrow based and stable with normal stride and arm swing. Assessment and Plan: ASSESSMENT/PLAN: 1. Anxiety - ICD9: 300.00, ICD10: F41.9 (primary diagnosis) Patient with agitation and anxiety during the late afternoon into night time hours. Concerning in interview, given lack of sleep was whether symptoms represented RLS (also given circadian nature). However, she is reporting that these symptoms do not improve with movement, and also do not improve late at night with diazepam. At this point, given medications she is on, feel appropriate for her to be evaluated by psychiatry to determine if changes in medications needed. She may also benefit from CBT and biofeedback therapy. Thus CONSULT TO PSYCHIATRY. 2. Daytime sleepiness - ICD9: 780.54, ICD10: R40.0 Likely multifactorial. Prior PSG unremarkable. She has components of lack of sleep due to anxiety and sleep onset insomnia, possible circadian abnormality due to anxiety. She is also on multiple pain meds and other meds that could result in EDS. At this time will hold on further sleep testing given prior PSG unremarkable and no s/s of OSAS. She has no prior history to suggest narcolepsy triad. However, if still with EDS following eval of #1, will then consider MSLT. She is not to drive or operate heavy machinery when sleepy. 3. Insomnia, unspecified type - ICD9: 780.52, ICD10: G47.00 Multifactorial but by history, suggests etiology of #1. Referral to psychiatry as above. 4. Altered mental status, unspecified altered mental status type - ICD9: 780.97, ICD10: R41.82 Prior concerns for seizures by history provided by family last visit. However, patient wants no further evaluation for such. Again, EMU stay was ordered last visit. She declines EMU. Eusebio Braswell MD I spent 40 minutes in the visit, with more than 50% of the total gvlx-on-gklq time of the visit in counseling / coordination of care. Referring Provider: ROSAMARIA BROWN [[id number]] Allergies As of Date: 05/16/2017 Noted Allergy Reaction SEASONAL ALLERGIES 08/16/2016 14 - Other: See Comments Comments: Sneezing, postnasal drip Date Reviewed: 05/16/2017 Reviewed by: Eusebio Braswell Jr. - Fully Assessed Reason for Visit: Follow Up [171] Cmt: Transient Alteration of Awareness/ happen's in evening Primary Visit Diagnosis:Anxiety [F41.9] Other Visit Diagnoses:Daytime sleepiness [R40.0] Insomnia, unspecified type [G47.00] Altered mental status, unspecified altered mental status type [R41.82] Order(s):CONSULT TO PSYCHIATRY [9035] Order #: [id number]: 1 Prescriptions as of 05/16/2017 Sig: CYCLOSPORINE 0.05 % EYE DROPS* Use 1 Drop in both eyes twice* GABAPENTIN 100 MG CAPSULE Take 100 mg by mouth three ti* ROSUVASTATIN 10 MG TABLET Take 10 mg by mouth daily at * ESCITALOPRAM 20 MG TABLET Take 20 mg by mouth once linda* DIAZEPAM 5 MG TABLET Take 5 mg by mouth daily at b* LACTOBACILLUS COMBINATION NO.* Take 2 capsules by mouth once* ALBUTEROL SULFATE HFA 90 MCG/* Inhale 2 Puffs as instructed * LIOTHYRONINE 5 MCG TABLET Take 5 mcg by mouth once linda* PREDNISONE 5 MG TABLET Take 7.5 mg by mouth once elyssa* CALCIUM CITRATE + D ORAL Take by mouth twice daily. DENOSUMAB 60 MG/ML SUBCUTANEO* Inject 60 mg subcutaneously o* BACLOFEN 10 MG TABLET Take 10 mg by mouth three alejandro* TOPIRAMATE 50 MG TABLET Take 3 tablets by mouth daily* CETIRIZINE 10 MG TABLET Take 1 tablet by mouth once d* LEVOTHYROXINE 150 MCG TABLET Take 150 mcg by mouth. 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] Dysphagia, unspecified(787.20) [R13.10] 01/07/2016 Acquired hypothyroidism [E03.9] Degeneration of lumbar or lumbosacral intervert* Other chest pain [R07.89] 01/07/2016 Rheumatoid arthritis [M06.9] Arthropathy, unspecified, site unspecified [M12* Anxiety state, unspecified [F41.1] Acute gastritis without mention of hemorrhage [*INVALID FOR* 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] INVALID FOR* Vitreous floaters of both eyes [H43.393] INVALID FOR* Punctate keratitis of both eyes [H16.143] INVALID FOR* Status post LASIK surgery of both eyes [Z98.890]INVALID FOR* Encounter for screening for malignant neoplasm *INVALID FOR*01/13/2016 Dry eye syndrome of both eyes [H04.123] INVALID FOR* Disposition: Return in about 6 months (around 11/16/2017). Follow-up and Disposition History Recorded Encounter Status:Closed by EUSEBIO BRASWELL on 05/16/17 CHEST PA AND LATERAL Observed: 05/01/2017 Status: F Source: [place] 11:53 AM [facility] Imaging Services [address] [place] [address] Chest PA and Lateral MR#: [id number] Acct: [id number] Name: MARCE LAW Rep #: [id number] : 1960 F 56 From: Murray Palma MD PCP: Rosamaria Brown DO Status: REG CLI Study: Chest PA and Lateral Date of Exam: 05/01/17 Exam# [id number] Ordering Dr: Rosamaria Brown DO STUDY: X-RAY CHEST REASON FOR EXAM: Female, 56 years old. Follow-up of right lower lobe pneumonia. TECHNIQUE: Frontal and lateral views of the chest. COMPARISON: April 15, 2017 FINDINGS: There is mild hyperexpansion unchanged. The patchy [...] MD at 17:05 EST , Service support , CC: Rosamaria Brown DO Packaging Supervisor: Signed CBC W/DIFF, AUTOMATED Collected: 04/20/2017 Status: F Source: [place] 10:26 AM [facility] [place] TYPE CODE TESTS RESULT OUT OF RANGE REFERENCE UNITS LAB L100.1000 4.4-11.0 K/mm3 Normal WBC 10.1 LAB L100.1200 4.2-5.4 M/mm3 Low RBC 3.81 LAB L100.1300 12.0-15.0 g/dl Normal HGB 12.0 LAB L100.1400 37-47 % Normal HCT 37.5 LAB L100.1500 81-99 fL Normal MCV 98.4 LAB L100.1600 27.0-32.0 pg Normal MCH 31.5 LAB L100.1700 32-36 g/gl Normal MCHC 32.0 LAB L100.1810 11.6-14.6 % Normal RDW CV 14.0 LAB L100.1820 35.1-43.9 fl High RDW SD 49.9 LAB L100.1900 150-450 K/mm3 High PLT 525 LAB L100.2000 6.2-12.0 fl Normal MPV 8.7 LAB L100.2100 47-70 % Normal NEUT% 57.8 LAB L100.2200 19-41 % Normal LY% 33.8 LAB L100.2300 0-10 % Normal MONO% 7.5 LAB L100.2400 0-5 % Normal EO% 0.3 LAB L100.2500 0-1 % Normal BASO% 0.2 LAB L100.2550 0.0-0.9 % Normal IM GRAN % 0.400 Result Comment: IG% - Immature Granulocytes (promyelocytes, myelocytes and metamyelocytes) > 1% indicates that a LEFT SHIFT is Present. LAB L100.2620 2.0-7.7 X10 3/uL Normal Absolute Neut 5.9 LAB L100.2720 0.83-4.51 X10 3/ul Normal Absolute Lymph 3.42 Performed By: #### L100.0100 #### [facility] [address] [place], [place], [address] EBV ACUTE PROF IGG Collected: 04/20/2017 Status: F Source: [place] / IGM 10:26 AM [facility] [place] TYPE CODE TESTS RESULT OUT OF RANGE REFERENCE UNITS LAB L3100.5900 0.0-35.9 U/mL Normal EB-VCA < 36.0 [id number] Result Comment: Negative <36.0 Equivocal 36.0 - 43.9 Positive >43.9 LAB L3100.6000 0.0-8.9 U/mL High EB-EA IgG 49.1 [id number] Result Comment: Hepatitis A, Hepatitis C and HIV antibodies may cross-react with this assay. Negative < 9.0 Equivocal 9.0 - 10.9 Positive >10.9 LAB L3100.6100 0.0-17.9 U/mL High EB-VCA 226.0 [id number] Result Comment: Negative <18.0 Equivocal 18.0 - 21.9 Positive >21.9 LAB L3100.6200 0.0-17.9 U/mL High EB-NAg > [id number] 600.0 Result Comment: Negative <18.0 Equivocal 18.0 - 21.9 Positive >21.9 LAB L3100.6300 . INTERPRETATION Normal Comment Result Comment: EBV Interpretation Chart Interpretation EBV-IgM EA(D)-IgG VCA-IgG EBNA-IgG EBV Seronegative - - - - Early Phase + - - - Acute Primary + +or- + - Infection Convalescence/Past - +or- + + Infection Reactivated +or- + + + Infection + Antibody Present - Antibody Absent Performed at: - [facility] [address] [id number] Jig Fitter: Sean Daniel PhD, Phone: [phone] Performed By: #### L3100.5850 #### [facility] (refer to report for specific site) refer to report for address and phone number DISCHARGE INSTRUCTION Observed: 04/15/2017 Status: F Source: [place] 6:14 PM [facility] [place] [place] Medical Records Department [address] [place] [address] Discharge Instruction 04/15/17 1813 MR#: [id number] Acct: [id number] Name: ANIMARCE Rep #: [id number] : 1960 56 From: Dusty Dumont MD PCP: Rosamaria Brown DO Status: REG ER ED Disposition - Plan for ED Patient: Chief Complaint: Shortness of Breath Instructions: ED Pneumonia Adult Prescriptions: Levofloxacin [Levaquin] 500 mg PO DAILY #7 tab Referrals: Rosamaria Brown DO [Primary Care Provider] - What to do if you have Problems For any increased pain, shortness of breath, bleeding, nausea or vomiting, chest pain, or any unexpected problems, contact your Primary Care Provider. Call [facility] ([phone]) or report to the closest Emergency Room. Call 911 if necessary. 04/15/171813 <Electronically signed by Dusty Dumont MD> Date Dusty Dumont MD Cosigner Signature (If Indicated): Date CC: Rosamaria Brown DO EMERGENCY DEPARTMENT Observed: 04/15/2017 Status: F Source: [place] SUMMARY 6:13 PM [facility] Medical Records Department [address] [facility] [place] [address] Emergency Department Summary 04/15/171810 MR#: [id number] Acct: [id number] Name: MARCE LAW Rep #: [id number] : 1960 56 From: Dusty Dumont MD PCP: Rosamaria Brown DO Status: REG ER - ER Visit Summary Date of Service: 04/15/17 Chief Complaint: Flulike symptoms History of Present Illness: The patient is a 56 F who presents with flulike symptoms beginning in early March. She reports subjective fevers sore throat cough muscle aches joint aches and headache. She states she feels like she is just not breathing right. She does have some dyspnea on exertion. She denies any chest pain. She denies vomiting or diarrhea. She states she was initially improving but began worsening again earlier this week. She spoke to her primary care physician who was current concerned as she is immunosuppressed. She is currently on a long prednisone taper due to adrenal insufficiency. She was previously on methotrexate but is not on this currently. Physical Examination: Afebrile vitals are unremarkable and within normal limits Moist mucous membranes Heart regular rate and rhythm Does have some scattered rhonchi and extra wheezes I do not appreciate rales she is in no distress she is able speak in full sentences without retractions Alert Test Results: CBC BMP unremarkable. Rapid influenza negative. Chest x-ray does show right lower lobe infiltrate. Emergency Department Course and Treatment: Patient does have a community-acquired pneumonia. Her vitals are normal and she has unremarkable laboratory studies. I do believe she is a good candidate for outpatient treatment. She was given a prescription for Levaquin. She understands to return for new or worsening symptoms and was instructed on specific signs and symptoms to monitor for. She was discharged. Treatment Plan: [] Disposition: Discharge Impression: Community acquired pneumonia This note was generated with [employer] dictation software. It may contain incorrect words, spelling, and punctuation that were not noted in review of the chart prior to signing ED Disposition - Plan for ED Patient: Chief Complaint: Shortness of Breath Referrals: Rosamaria Brown, [Primary Care Provider] - What to do if you have Problems For any increased pain, shortness of breath, bleeding, nausea or vomiting, chest pain, or any unexpected problems, contact your Primary Care Provider. Call [facility] ([phone]) or report to the closest Emergency Room. Call 911 if necessary. 04/15/171812 <Electronically signed by Dusty Dumont MD> Date Dusty Dumont MD Cosigner Signature (If Indicated): Date CC: Rosamaria Brown DO Observed: 04/15/2017 Status: F Source: [place] INFLUENZA A+B (RAPID 5:00 PM [facility] [place] REPOSITORY Has pt arrived? Y FLU A/B Rapid Negative test results should be confirmed by culture. Order Rapid Viral Culture for Influenzae A+B ([id number]) if clinically indicated. Influenza Ag, Direct Presumptive NEGATIVE for Influenza A/B Antigen (See Note) Performed By: #### M101.0101 #### [facility] [address] [place], [address] Observed: 04/15/2017 Status: F Source: [place] RESPIRATORY PANEL 5:00 PM [facility] REPOSITORY Has pt arrived? Y RP PANEL ADENOVIRUS Not Detected HUMAN METAPHNEUMO Not Detected INFLUENZA A Not Detected INFLUENZA A (SUBTYPE H1) Not Detected INFLUENZA A (SUBTYPE H3) Not Detected INFLUENZA B Not Detected PARAINFLUENZA 1 Not Detected PARAINFLUENZA 2 Not Detected PARAINFLUENZA 3 Not Detected PARAINFLUENZA 4 Not Detected RHINOVIRUS Not Detected RSV A Not Detected RSV B Not Detected NAAT METHOD Testing was performed using nucleic acid amplification Performed By: #### M100.638 #### [facility] [address] [place], [address] CBC W/DIFF, AUTOMATED Collected: 04/15/2017 Status: F Source: [place] 4:37 PM [facility] [place] TYPE CODE TESTS RESULT OUT OF RANGE REFERENCE UNITS LAB L100.1000 4.4-11.0 K/mm3 Normal WBC 8.8 LAB L100.1200 4.2-5.4 M/mm3 Low RBC 3.73 LAB L100.1300 12.0-15.0 g/dl Low HGB 11.9 LAB L100.1400 37-47 % Low HCT 35.6 LAB L100.1500 81-99 fL Normal MCV 95.4 LAB L100.1600 27.0-32.0 pg Normal MCH 31.9 LAB L100.1700 32-36 g/gl Normal MCHC 33.4 LAB L100.1810 11.6-14.6 % Normal RDW CV 13.5 LAB L100.1820 35.1-43.9 fl High RDW SD 46.9 LAB L100.1900 150-450 K/mm3 Normal PLT 411 LAB L100.2000 6.2-12.0 fl Normal MPV 8.8 LAB L100.2100 47-70 % High NEUT% 70.6 LAB L100.2200 19-41 % Normal LY% 22.8 LAB L100.2300 0-10 % Normal MONO% 5.8 LAB L100.2400 0-5 % Normal EO% 0.1 LAB L100.2500 0-1 % Normal BASO% 0.1 LAB L100.2550 0.0-0.9 % Normal IM GRAN % 0.600 Result Comment: IG% - Immature Granulocytes (promyelocytes, myelocytes and metamyelocytes) > 1% indicates that a LEFT SHIFT is Present. LAB L100.2620 2.0-7.7 X10 3/uL Normal Absolute Neut 6.2 LAB L100.2720 0.83-4.51 X10 3/ul Normal Absolute Lymph 2.00 Performed By: #### L100.0100 #### [facility] [address] [place], [address] BASIC METABOLIC Collected: 04/15/2017 Status: F Source: [place] PROFILE (BMP) 4:37 PM [facility] [place] TYPE CODE TESTS RESULT OUT OF RANGE REFERENCE UNITS LAB L501.0100 74-106 mg/dL High GLU 108 Result Comment: Fasting Glucose result from 100 to 125 mg/dL suggests IMPAIRED HOMEOSTASIS per A.D.A. criteria. Please note revised GLUCOSE reference range effective 2017. LAB L501.1000 7-18 mg/dL Low BUN 6 LAB L501.1100 0.55-1.02 mg/dL Normal CREAT,SERUM 0.70 Result Comment: The validity of the calculated GFR AND GFRAA in patients over 70 years has not been determined. Clinical correlation is essential. LAB L501.1110 >60 mL/min Normal EST GFR 93 Result Comment: Non- GFR Calc LAB L501.1115 >60 mL/min Normal EST GFR - AA 112 Result Comment: GFR Calc LAB L501.1255 ml/min Normal Estimated CRCL 86.01 LAB L501.1300 10-20 RATIO Low BUN/CRE 8.6 LAB L501.2200 8.5-10 mg/dL Normal .1 CA 9.0 LAB L501.5300 136-14 mmol/L Normal 5 NA 136 LAB L501.5600 3.5-5. mmol/L Normal 1 K 4.0 LAB L501.5900 98-107 mmol/L Normal CL 105 LAB L501.6100 21.0-3 mmol/L Normal 2.0 CO2 23.0 LAB L501.6200 5-15 Normal GAP 8 Performed By: #### L500.2500 #### [facility] [address] [place], [address] CHEST PA AND LATERAL Observed: 04/15/2017 Status: F Source: [place] 4[facility]26 PM [facility] Imaging Services [address] [address] Chest PA and Lateral MR#: [id number] Acct: [id number] Name: MARCE LAW Rep #: [id number] : 1960 F 56 From: Erasto Persaud MD PCP: Rosamaria Brown DO Status: REG ER Study: Chest PA and Lateral Date of Exam: 04/15/17 Exam# [id number] Ordering Dr: Dusty Dumont MD STUDY: X-RAY CHEST REASON FOR EXAM: Female, 56 years old. INCREASED SHORTNESS OF BREATH, PT IS RECOVERING FROM THE FLU. SENT TO ED BY PCP FOR POSSIBLE PNUEMONIA TECHNIQUE: Frontal and lateral view of the chest. COMPARISON: August 09, 2016 FINDINGS: Right lower lobe [...] upper abdomen. RAD/Chest PA and Lateral IMPRESSION: Right lower lobe infiltrate. Electronically Signed: Erasto Persaud MD at 18:00 EST , Service support , CC: Rosamaria Brown DO; Dusty Dumont MD Packaging Supervisor: Signed INITAL EVALUATION (1) Observed: 04/03/2017 Status: F Source: [place] - PT 10:17 AM [facility] [facility] [place] [address] [place] [address] Fax REHABILITATION SERVICES INITIAL EVALUATION MR#: [id number] Acct: [id number] Name: MARCE LAW Rep #: [id number] : 1960 56 From: Lux Miller PT, Cert. MDT, OCS Referring Dr.: Maddie Munoz Status: REG RCR Insurance: [facility] SELF PAY INSURANCE Patient's Visit Information MARCE LAW is a 56 year old F referred to Physical Therapy by THOR Ridley ELECTROCARDIOGRAPHIC TECHNICIAN.LPREBI with a diagnosis of L-IVDD,L-STENOSIS,L-SPONDYLOPATHY,MYALGIA. Date of Evaluation: 03/30/17 Physical Therapist: Lux Miller PT, - Visit Plan Frequency: 2x /Week Duration: 4 Weeks Plan: US,MHP CERVICAL -LUMBAR,ESTIM, MANUAL THERAPY WITH STM/MYOFASCIAL CERVICAL /LUMBAR, PROGRESS WITH POSTURAL [...] Symptoms worse with walking ,standing,bending,lifting,sitting,driving. Patient has MINOR/migraines . Patient has muscle spasms in cervical-lumbar. Patient has had prior [...] 10): 4 Pain Intensity Range: 10 Bilateral Lower Extremity Pain Intensity (Out of 10): 4 Pain Intensity Range: 10 - Objective POSTURE: guarded mild foward posture,reduce lordosis. GAIT: reciprocal gait ,normal brittany. PALPATION: tender UT/LEVATOR /paraspinals,L-S,ERECTOR SPINALS. BUE AROM: WFL. CERVICAL ROM: flexion min/mod loss,rotation /lateral flexion,mod loss ,extension mod loss. MMT: 4-5/ except shoulders 3+/5. LUMBAR ROM: flexion mod loss,extension mod loss ,side glides mod [...] or greater to improve function. Goal Time Frame: 4-6 Weeks Goal 4:: Increase strength BUE AND BLE to 4/5 nto improve function and ADL'S Goal Time Frame: 4-6 Weeks Goal 5:: Patient improve ablity to peform ADLS' and housework tasks with min limitaions. Goal Time Frame: 4-6 Weeks - Rehabilitation Potential Physical Therapy Diagnosis: This patient has multiple comormidities with cervical and lumbar fusion with chronic pain,spasms with poor ROM ,poor strength ,impairs function with ADL'S Rehabilitation Potential: Good - Anticipated Interventions Patient/Client Instruction: Educate patient on: Condition, Plan of Care For the Purpose of:: To decrease pain, To improve muscle performance and motor function, To improve ability to perform ADL's, To increase tolerance to activity/condition/position, To improve ability of physical actions for home/community/work/leisure, To improve health of tissue, To decrease soft tissue restriction, To increase flexibility/ROM, To improve health and function, To improve ability to perform tasks related to life management Therapeutic Exercise to Include: Strength training, Postural training, Flexibilty training, Dynamic Lumbar Stabilization Comment: ABLE For the Purpose of:: To decrease pain, To increase ROM, To improve muscle performance and motor function, To improve ability to perform ADL's, To increase tolerance to activity/condition/position, To improve ability of physical actions for home/community/work/leisure, To improve health of tissue, To decrease soft tissue restriction, To increase flexibility/ROM, To improve health and function, To improve ability to perform tasks related to life management Manual Therapy Techniques to Include: Massage, Soft tissue mobilization For the Purpose of:: To decrease pain, To increase ROM, To improve nutrient delivery to tissue, To increase oxygenation perfusion TENS: Yes IF ES: Yes Cryotherapy (ice pack, ice massage): Yes Thermo therapy (hot pack): Yes Ultrasound (thermal/non thermal): Yes For the Purpose of:: To decrease pain, To improve nutrient delivery to tissue, To increase oxygenation perfusion, To improve health of tissue, To decrease soft tissue restriction Thank you for the opportunity to evaluate your patient. For Medicare and Medicare HMO plans, please review the plan of care and approve it. It will need to be FAXED BACK to us at [phone] for Medicare purposes. Please let me know if there are questions or concerns regarding this plan of care. Physician Signature: Date: <Electronically signed by Lux Miller PT Cert. PARRISH, OCS> 04/03/17 1017 CC: Maddie Brown DO LISHA Signed For Medicare only, by signing this I certify the plan of care. Physicians Signature Date ALLERGIES ALLERGIES DATE TYPE / CODE NAME / CODE REACTION SEVERITY SOURCE 03/06/2018 Drug gabapentin/F0060 Swelling Unknown [place] [facility] Allergy/416 99168(RXNORM) [facility] 109177(SN Repository ED CT) 03/06/2018 Drug pregabalin/F0060 Swelling Unknown [place] [facility] All[facility]/416 16836(RXNORM) [facility] 106109(SNOM Repository ED CT) 04/15/2017 Drug No Known Unknown [place] [facility] Allergy/416 Allergies/S13125 Hospital 301566(SNOM 0388(RXNORM) Repository ED CT) 08/16/2016 Environ/420 SEASONAL OTHER: SEE C [facility] 124756(SNOM ALLERGIES [facility] [place] ED CT) Repository ENCOUNTERS ENCOUNTERS ADMIT/DISCHARGE ACCOUNT ADMITTING ENCOUNTER LOCATION SOURCE NUMBER CLASS 03/21/2018 [id number] Ambulatory BMSBuilding:B [place] MS.CF[facility] Hospital Repository 03/21/2018 [id number] Ambulatory [facility] Hospital ing:CT Repository 03/07/2018 [id number] Ambulatory Building:[facility] Repository 03/06/2018 [id number] Ambulatory [facility] Hospital ing:SDC Repository 03/02/2018 [id number] [facility] Repository 02/14/2018 [id number] [facility] ing:CT Repository 02/06/2018/02/08/20 [id number] Ambulatory [address] Repository 01/08/2018 [id number] [facility] ing:CT Repository 01/01/2018 [id number] [facility] ing:LABSPEC Repository 12/30/2017/12/31/19 [id number] Ambulatory BMSBuilding:B [place] [facility] Repository 11/06/2017 [id number] [facility] ing:MRI Repository 10/28/2017 [id number] [facility] ing:LAB Repository 08/31/2017 [id number] [facility] ing:OPBD Repository 07/13/2017 [id number] Ambulatory [facility] Repository 07/13/2017/07/14/19 [id number] Ambulatory [address] Repository 07/13/2017 [id number] Ambulatory [facility] Repository 07/13/2017/07/20/19 [id number] Ambulatory [address] Repository 06/28/2017 [id number] [facility] 06/22/2017 [id number] Ambulatory [facility] ing:MTLAB Repository 06/06/2017 [id number] CRISTIANE, Ambulatory [facility] [place] Repository 06/01/2017/06/03/19 [id number] Ambulatory [address] Repository 05/22/2017/05/23/19 [id number] Ambulatory [address] ing:PT Repository 05/16/2017/05/17/19 [id number] Ambulatory [address] Repository 05/01/2017 [id number] Ambulatory [facility] ing:HPRAD Repository 04/20/2017 [id number] Ambulatory [facility] ing:MTLAB Repository 04/15/2017/04/15/19 [id number] Emergency [address] ing:ED Repository PAYERS PAYERS ENCOUNTER GUARANTOR PAYER SUBSCRIBER SOURCE 03/21/2018 ZURI T Primary Insurance:[facility] MARCE A [place] [id number] W PACKAGE PLANPolicy MICHALAKDOB: [facility] RDWest Number: [id number], [place] [id number] Repository 59812Vuy: (330) Date:2018-02-07 749 () 03/21/2018 Secondary NOT GIVENUNK [place] Insurance:SELF PAY [facility] Number: Effective Repository Date:2018-03-21 03/21/2018 ZURI T Primary Insurance:[facility] MARCE A [place] [id number] W PACKAGE PLANPolicy [facility] RDWest Number: [id number], [place] [id number] Repository 618[address]Jep: (330) Date:2018-02-07 () 03/21/2018 Secondary NOT GIVENUNK [place] Insurance:SELF PAY [facility] Number: Effective Repository Date:2018-02-07 03/07/2018 MARCE A Primary Zuri T [facility] ANGELAOB: Insurance:Medical [facility]: Repository [place] [id number] Number: [address] [place], [place] [id number] [place], [place] [address]Ult: 330) Date:3995-86-02Qobm [address]Ysh: Name:[phone] (HP) (HP)Tel: ([phone]) 4629[place], [place] [phone] () [id number]: 03/07/2018 Secondary Zuri T OHIP Practices Insurance:Medical [facility]: Repository [facility] [id number] Number: [address] [id number] [place] Date: - [address]Sqz: [id number] ~(3 Name:[facility] [address] ) [address] [place] [id number]: 03/06/2018 ZURI T Primary ZURI T [place] [id number] W Insurance:MEDICAL MICHALAKDOB: [facility] [id number], [place] Number: Repository [address]Ors: 330 [id number] [phone] (HP) Date:5955-99-95GR [address] [place] [address]SM: 03/06/2018 Secondary NOT GIVENUNK [place] Insurance:SELF PAY [facility] Number: Effective Repository Date:2018-02-22 03/02/2018 ZURI T Primary ZURI T [place] [id number] W Insurance:MEDICAL [facility]: [facility] [id number], [place] Number: Repository [address]Ghq: 330 [id number] [phone] (HP) Date:0329-00-42LH [address] [place] [address]TR: 03/02/2018 Secondary NOT GIVENUNK [place] Insurance:SELF PAY [facility] Number: Effective Repository Date:2018-03-02 02/14/2018 ZURI T Primary ZURI T [place] [id number] W Insurance:MEDICAL MICHALAKDOB: [facility] [id number] [place] Number: Repository [address]Kmm: 330 [id number] [phone] (HP) Date:4689-84-62SG [address] [address]AX: 02/14/2018 Secondary NOT GIVENUNK [place] Insurance:SELF PAY [facility] Number: Effective Repository Date:2018-02-05 01/08/2018 ZURI T Primary ZURI T [place] [id number] W Insurance:MEDICAL MICHALAKDOB: [facility] [id number] [facility] Number: Repository [address]Dwm: 330 [id number] [phone] (HP) Date:5148-23-72VN[address] [address]IS: 01/08/2018 Secondary NOT GIVENUNK [place] Insurance:SELF PAY [facility] Number: Effective Repository Date:2018-01-08 01/01/2018 ZURI T Primary ZURI T [place] [id number] W Insurance:MEDICAL MICHALAKDOB: [facility] [id number] Number: Repository [address]Tue: 330 [id number] [phone] (HP) Date:0752-29-21KC[address] [address]VN: 01/01/2018 Secondary NOT GIVENUNK [place] Insurance:SELF PAY [facility] Number: Effective Repository Date:2018-01-01 12/30/2017 ZURI T Primary ZURI T [place] [id number] W Insurance:MEDICAL MICHALAKDOB: [facility] [id number] [facility] Number: Repository [address]Cgb: 330 [id number] [phone] (HP) Date:8018-19-42RJ [address] [place] [address]PF: 12/30/2017 Secondary NOT GIVENUNK [place] Insurance:SELF PAY [facility] Number: Effective Repository Date:2017-12-30 11/06/2017 ZUIR T Primary ZURI T [place] [id number] W Insurance:MEDICAL [facility]: [facility] [id number], [place] Number: Repository [address]Swc: 330 [id number] [phone] (HP) Date:3299-81-41HV [address] [address]LV: 11/06/2017 Secondary NOT GIVENUNK [place] Insurance:SELF PAY [facility] Number: Effective Repository Date:2017-11-01 10/28/2017 ZURI T Primary ZURI T [place] [id number] W Insurance:MEDICAL [facility]: [facility] [id number], [place] Number: Repository [address]Chh: 330 [id number] [phone] (HP) Date:9556-06-07PE [address] [address]GM: 10/28/2017 Secondary NOT GIVENUNK [place] Insurance:SELF PAY [facility] Number: Effective Repository Date:2017-10-28 08/31/2017 Zuri T Primary Zuri T [place] [id number] W Insurance:MEDICAL [facility] CenterkD[facility]: [facility] [id number], [place] Number: Repository [address]Zzi: 330 [id number] [phone] (HP) Date:4391-77-11DP [address] [address]RK: 08/31/2017 Secondary NOT GIVENUNK [place] Insurance:SELF PAY [facility] Number: Effective Repository Date:2017-06-28 06/28/2017 Zuri T Primary Zuri T [place] [id number] W Insurance:MEDICAL [facility]: [facility] [id number] Health Care [facility] [place] Number: Repository [address]Fit: 330 [id number] [phone] (HP) Date:8059-58-92ZD [address] [address]MN: 06/28/2017 Secondary NOT GIVENUNK [place] Insurance:SELF PAY [facility] Number: Effective Repository Date:2017-06-28 06/22/2017 Zuri T Primary Zuri T [place] [id number] W Insurance:MEDICAL [facility] CenterkDOB: [facility] [id number] [facility]iatric [facility] [place] Number: Repository [address]Ynt: 330 [id number] [phone] (HP) Date:9618-05-10BR [address] [address]AH: 06/22/2017 Secondary NOT GIVENUNK [place] Insurance:SELF PAY [facility] Number: Effective Repository Date:2017-06-22 05/22/2017 Zuri T Primary Zuri T [place] [id number] W Insurance:MEDICAL [facility] CenterkDOB: [facility] [id number] [facility]iatric [facility] Number: Repository [address]Epl: 330 [id number] [phone] (HP) Date:3005-36-33UU [address] [address]BN: 05/22/2017 Secondary NOT GIVENUNK [place] Insurance:SELF PAY [facility] Number: Effective Repository Date:2017-03-27 05/01/2017 Zuri T Primary Zuri T [place] [id number] W Insurance:MEDICAL [facility] CenterkDOB: [facility] [id number] Health Care Facility [place] Number: Repository [address]Ttp: 330 [id number] [phone] (HP) Date:0370-42-80RK [address] [address]VU: 05/01/2017 Secondary NOT GIVENUNK [place] Insurance:SELF PAY [facility] Number: Effective Repository Date:2017-05-01 04/20/2017 Zuri Jackson Primary Zuri Kunz [id number] W Insurance:MEDICAL [facility] CenterkDOB: [facility] [id number], [place] Number: Repository [address]Wgk: (695) [id number] [phone] () Date:1197-77-68VK [address] [place] [address]WZ: 04/20/2017 Secondary NOT GIVENUNK [place] Insurance:SELF PAY [facility] Number: Effective Repository Date:2017-04-20 04/15/2017 Zuri Jackson Primary Zuri Kunz [id number] W Insurance:MEDICAL [facility]: [facility] [id number], [place] Number: Repository [address]Yld: 330 [id number] [phone] () Date:0836-81-30WK [address] [place] [address]DK: 04/15/2017 Secondary NOT GIVENUNK [place] Insurance:SELF PAY [facility] Number: Effective Repository Date:2017-04-15
== END ==
PROVIDERS: Family Provider Internal Medicine; PCP Internal Medicine; Referring Provider Urology; Visit Provider Urology
DX: R31.0 Gross hematuria (principal)
CPT/HCPCS: 74177; Q9967

== ENCOUNTER → 2018-03-02 11:08 | Outpatient (CLI) | payer OTHER, SELFPAY ==
[2017-12-30 12:35] VITALS: BMI 24.0
[2018-03-02 12:29] LABS: Absolute Lymphocyte Count 1.71 X10^3/ul (0.83-4.51); Absolute Neutrophil Count 5.6 X10^3/uL (2.0-7.7); Basophil# 0.02 X10^3/uL; Basophil% 0.2 % (0-1); Eosinophil# 0.04 X10^3/uL; Eosinophils% 0.5 % (0-5); Hematocrit 37.6 % (37-47); Hemoglobin 12.4 g/dl (12.0-15.0); Lymphocyte # 1.71 X10^3/ul (4.0); Mean Corpuscular Hgb 32.4 pg (27.0-32.0); Mean Corpuscular Volume 98.2 fL (81-99); Mean Platelet Vol. 10.2 fl (6.2-12.0); Monocyte# 0.73 X10^3/uL; Neutrophil # 5.64 X10^3/uL (2.7-7.7); Neutrophil % 69.2 % (47-70); Platelet Count 243 K/mm3 (150-450); RBC Distribution Width CV 13.2 % (11.6-14.6); RBC Distribution Width SD 46.8 fl (35.1-43.9); Red Blood Count 3.83 M/mm3 (4.2-5.4); White Blood Count 8.2 K/mm3 (4.4-11.0)
[2018-03-02 12:37] LABS: POSITIVE COUNT NO; POSITIVE DIFFERENTIAL NO; POSITIVE MORPHOLOGY NO
[2018-03-02 12:52] LABS: ALB/GLOB Ratio 1.3 RATIO (0.9-2.4); AST(SGOT) 14 U/L (15-37); Alanine Aminotransfer ALT/SGPT 26 U/L (13-56); Alkaline Phosphatase 46 U/L (45-117); Anion Gap 9 (5-15); BUN 10 mg/dL (7-18); BUN/Creat Ratio 12.2 RATIO (10-20); Calcium,Total 8.6 mg/dL (8.5-10.1); Chloride 107 mmol/L (98-107); Cholesterol 163 mg/dL (200); Creatinine, Serum 0.82 mg/dL (0.55-1.02); EST Glomerular Filtration Rate 77 mL/min (>60); Est Glom Filt Rate - Afr Amer 93 mL/min (>60); Globulin 3.1 g/dL (2.2-4.2); Glucose 98 mg/dL (74-106); High Density Lipoprotein 78 mg/dL; Potassium 3.8 mmol/L (3.5-5.1); Protein, Total 7.1 g/dL (6.4-8.2); Sodium Level 141 mmol/L (136-145); Triglycerides 75 mg/dL; Very Low Density Lipoprotein 15 mg/dL (5-40)
[2018-03-02 12:55] LABS: Hemoglobin A1c 5.8 % (4.2-6.3)
[2018-03-07 13:25] LABS: Thyroid Stim Hormone (TSH) 0.15 uIU/mL (0.358-3.74)
[2018-03-08 08:45] LABS: Free T3 3.5 pg/mL (2.18-3.98); T4 Free Direct 0.99 ng/dL (0.76-1.46)
== END ==
PROVIDERS: Family Provider Internal Medicine; PCP Internal Medicine; Referring Provider Internal Medicine; Visit Provider Internal Medicine
DX: E78.49 Other hyperlipidemia (principal); R73.01 Impaired fasting glucose
CPT/HCPCS: 36415; 80053; 80061; 83036; 84439; 84443; 84481; 85025

== ENCOUNTER → 2018-03-21 12:29 | Outpatient (CLI) | payer SELFPAY ==
--- NOTE | 2018-03-21 12:51 | CT_ITS ---
STUDY: CT CHEST WITHOUT CONTRAST REASON FOR EXAM: Female, 57 years old. Calcium scoring examination. Radiology over read examination. RADIATION DOSAGE (If Supplied By Facility): CTDIvol = ( 12.19 ) mGy, DLP = ( 195.04 ) mGycm TECHNIQUE: Transaxial imaging was performed without the administration of intravenous contrast material. Individualized dose optimization techniques were used for this CT. COMPARISON: None. FINDINGS: Mild degree of increased markings at the lung bases suggestive of scarring. There is no demonstrated pleural abnormality. Small pericardial effusion. There are multiple small lymph nodes within the mediastinum, which are normal in size and morphology most compatible with reactive lymph hyperplasia. Calcified right hilar lymph nodes. Normal unenhanced pulmonary arteries. Normal aorta arch and descending thoracic aorta. Normal osseous structures. There is no demonstrated abnormality of the visualized upper abdomen. CT/Limited Chest CT w/CCTA IMPRESSION: Small pericardial effusion. Findings suggest a mild bibasilar scarring. Electronically Signed: Barrera Nguyen MD at 16:03 EST , Service support ,
[2018-03-21 12:55] VITALS: BP 95/53; PULSE 61; RESP 14; O2SAT 99; BMI 23.3
--- NOTE | 2018-03-21 17:27 | CA.SCORE ---
Calcium Scoring Date of Study:: 03/21/18 Coronary Calcium Scoring: Coronary calcium score. High-resolution computed tomographic imaging of the chest was performed on 03/21/2018 with particular attention paid to the coronary arteries. Images from the examination were analyzed for the presence and extent of coronary artery calcification using the coronary calcification software. Patient tolerated the procedure well there were no complications. The results of the coronary calcification analysis are provided below. Coronary artery score Left main coronary artery score 0 Left anterior descending artery score 0 Left circumflex artery score 0 Right coronary artery score 0 Total Agagston score 0 The percentile ranking for the above is 25% of age and gender matched. The above is suggestive of no identifiable atherosclerotic plaquing and very low cardiovascular disease risk.
--- OUTSIDE RECORDS SUMMARY | 2018-05-23 11:06 | XMS RPT_ITS | Continuity of Care Document ---
:1960 Author Organization [facility] Address [address] [facility] [address] [place] [address] Phone Care Team Providers Name Role Phone Martha Brown DO Unavailable Brinda IRVIN, Dr. Padilla Jones Unavailable Jitendra Cook MD Unavailable Alan Torres MD Unavailable Eusebio Braswell Unavailable Dr. Carlito Armstrong DO Unavailable Aristides Daily Unavailable Unavailable Dr. Matt Wilburn MD Unavailable Shahla Myers MD Unavailable [facility], [facility] Unavailable Niru Taylor Unavailable Trudi Villafana Unavailable Dr. Niru Meyer MD Unavailable Rossy IRVIN, Gato Castillo Unavailable Jay Conley Unavailable Chikis Ashley Unavailable Cherie Fountain Unavailable Unavailable Heather Glez LPN Unavailable Unavailable Patito Tineo Unavailable Unavailable YURIY [...] Active Acute bacterial bronchitis (J20.8, 466.0) Comments: had for month needs cleaned up. Status: Active Acute bronchitis (J20.9, 466.0) Status: Active Acute ethmoidal sinusitis, recurrence not specified (J01.20, 461.2) Status: Active Acute headache (R51, 784.0) Status: Active Acute sinusitis (J01.90, 461.9) Status: Active Adrenal insufficiency (E27.40, 255.41) Status: Active Anxiety (F41.9, 300.00) Status: Active Arthritis (M19.90, 716.90) Status: Active Atypical chest pain (R07.89, 786.59) Comments: get echo may be resp infection Status: Active BMI 23.0-23.9, adult (Z68.23, V85.1) Status: Active Cellulitis of arm (L03.119, 682.3) Status: Active Cervical radiculopathy (M54.12, 723.4) Status: Active Chronic intractable headache, unspecified headache type (R51, 784.0) Status: Active Colon polyps (K63.5, 211.3) Comments: due 2019 Status: Active Dehydration (E86.0, 276.51) Status: Active [...] Active Impaired fasting glucose (R73.01, 790.21) Comments: chronic stable-continue present regimen Status: Active Left-sided face pain (R51, 784.0) Status: Active Lumbosacral radiculopathy due to degenerative joint disease of spine (M47.27, 722.52) Status: Active Macrocytosis without anemia (D75.89, 289.89) Status: Active [facility] EXAM Status: Active [facility] EXAM Status: Active [facility] WELLNESS PHYSICAL Status: Active Mild intermittent asthma with acute exacerbation (J45.21, 493.92) Comments: she will increase prednisone to 20 mg for 3 days 10 for 3 days then 5 mg a day Status: Active Neck pain (M54.2, 723.1) Status: [...] 288.69) Status: Active Other hyperlipidemia (E78.49, 272.4) Comments: much improved Status: Active Other signs and symptoms in breast (N64.59, 611.79) Comments: improved Status: Active Pharyngitis, acute (J02.9, 462) 20-May-2011 Status: Active Pneumococcal vaccination given (Z23, V06.6) Status: Active Postherpetic neuralgia (B02.29, 053.19) Status: Active Pregnancies () Comments: 3 Status: Active Preoperative clearance (Z01.818, V72.84) Status: Active Primary adrenocortical insufficiency (E27.1, 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 add mucinex. some in lungs will do prfedniosen too. use inhaler have at home Status: Active Smoker (F17.200, 305.1) Comments: encourage cessation Status: Active Smoker (F17.200, 305.1) Comments: discussed smoking cessation in detail- very important to decrease her vascular risk etc Status: Active Sore throat (J02.9, 462) Comments: maybe viral await culture has been on lots of antiobiotic Status: Active Spinal fusion Comments: 2005 (4 titanium pins) Status: Active Spinal stenosis, site unspecified (M48.00, 724.00) Status: Active Thrush (B37.0, 112.0) Comments: using culturelle Status: Active Thyroid disorder (E07.9, 246.9) Status: Active Thyroid nodule (E04.1, 241.0) Comments: due in feb Status: Active Transient alteration of awareness (R40.4, 780.02) Comments: she doesnt rememeber falling she supposed to have more seizure workup testing with [facility]well which i have encouraged her to complete [...] 0 days Refills: 0 Ordered:11-Jun-2009 Mast RN, MandyActive Cytomel 5 MCG Oral Tablet 1 tab Tablet qd for 90 days Quantity: 90 {QS} Refills: 3 Ordered:05-Dec-2017 Martha Brown DO, DO, Debra A Start : 05-Dec-2017 Active DiazePAM 5 MG Oral Tablet 1 (one) Tablet bid for 0 days Quantity: 60 {Tablet} Refills: 0 Ordered:17-Oct-2017 Martha Brown DO, DO, Debra A Start : 17-Oct-2017 Active Comments:sixtyfaxed to BMT 06/16/17 Hydrocodone-Acetaminophen 7.5-325 MG Oral Tablet four times a day (7.5-325 MG) Active LevoFLOXacin 500 MG Oral Tablet 1 (one) Tablet qd for 0 days Quantity: 7 {Tablet} Refills: 0 Ordered:07-Mar-2018 Martha Brown DO, DO, Martha A Start : 07-Mar-2018 Active PredniSONE 5 MG Oral Tablet 1 (one) Tablet qd as directed for 30 days Quantity: 40 {Tablet} Refills: 0 Ordered:05-Dec-2017 Martha Brown DO DO, Martha A Start : 05-Dec-2017 Active Comments:take with food in am PredniSONE 5 MG Oral Tablet 1 (one) Tablet qd as directed for 90 days Quantity: 90 {Tablet} Refills: 3 Ordered:05-Dec-2017 Martha Brown DO, DO, Martha A Start : 05-Dec-2017 Active ProAir HFA 108 (90 Base) MCG/ACT Inhalation Aerosol Solution 2 (two) Aerosol Soln qid, prn for 30 days Quantity: 1 {Inhaler} Refills: 2 Ordered:08-Mar-2018 Zaheer SAMUEL Hue Start : 08-Mar-2018 Active Comments:may substitute with whichever albterol inhaler cheapest Prolia 60 MG/ML Subcutaneous Solution 1 (one) Milliliter q 6 for 0 days Quantity: 1 {Milliliter} Refills: 0 Ordered:05-Dec-2017 Martha Brown DO, DO, Martha A [...] Comments:please DO NOT dispense peach pills Viibryd 20 MG Oral Tablet 1 (one) Tablet qd for 0 days Quantity: 30 {Tablet} Refills: 0 Ordered:07-Mar-2018 Fast DO, Martha AFast DO, Martha A Start : 07-Mar-2018 Active Comments:brinda VITAMIN D, 2000UNIT (Oral Tablet) 1 Daily for 0 days Refills: 0 Ordered:11-Jun-2009 Mast RN, Emactive Zanaflex 4 MG Oral Capsule 1 (one) Capsule Capsule tid for 0 days Quantity: 90 {Capsule} Refills: 0 Ordered:23-Feb-2018 YURIY Vernon Start : 08-Jan-2018 Active Comments:per painmanagement Augmentin [...] Start : 25-Nov-2013 End : 25-Sep-2014 Inactive Ciprofloxacin HCl 500 MG Oral Tablet 1 (one) Tablet Tablet bid for 0 days Quantity: 20 {Tablet} Refills: 0 Ordered:07-Mar-2018 Cherie Fountain Start : 08-Jan-2018 End : 07-Mar-2018 Inactive Clarithromycin 500 MG Oral Tablet 1 (one) Tablet bid for 0 days Quantity: 20 {Tablet} Refills: 0 Ordered:07-Mar-2018 Cherie Fountain Start : 23-Feb-2018 End : 07-Mar-2018 Inactive Diflucan 150 MG Oral Tablet 1 Tablet qd for 0 days Quantity: 10 {Tablet} Refills: 0 Ordered:22-Sep-2017 Cherie Fountain Start : 05-Jul-2017 End : 22-Sep-2017 Inactive Escitalopram Oxalate 20 MG Oral Tablet 1 (one) Tablet qhs for 90 days Quantity: 90 {Tablet} Refills: 3 Ordered:07-Mar-2018 Martha Brown DO, DO, Debra A Start : 07-Mar-2017 End : 07-Mar-2018 Inactive Gabapentin 100 MG Oral Capsule 3 (three) Capsule tid for 30 days Quantity: 270 {Capsule} Refills: 0 Ordered:07-Mar-2017 Martha Brown DO, DO, Debra A Start : 07-Mar-2017 End : 06-Apr-2017 Inactive HYDROCODONE-ACETAMINOPHEN, 7.5-325MG (Oral Tablet) 1 tab bid (7.5-325 MG) Inactive Comments:pain management Hysingla ER 20 MG Oral Tablet ER 24 Hour Abuse-Deterrent 1 qd (20 MG) Inactive LevoFLOXacin 500 MG Oral Tablet 1 (one) Tablet qd for 0 days Quantity: 7 {Tablet} Refills: 0 Ordered:28-Jun-2017 Cherie Fountain Start : 21-Apr-2017 End : 28-Jun-2017 Inactive LORazepam 0.5 MG Oral Tablet 1 (one) Tablet daily, prn for 30 days Quantity: 30 {Tablet} Refills: 0 Ordered:09-May-2016 Martha Brown DO, DO Martha Salinas Start : 09-May-2016 End : 08-Jun-2016 Inactive Comments:thirty MAXALT, 10MG (Oral Tablet) 1 (one) Tablet prn for 30 days Quantity: 10 {Tablet} Refills: 0 Ordered:02-Sep-2013 Martha Brown DO, DO Martha Salinas Start : 01-Jul-2013 End : 31-Jul-2013 Inactive MELATONIN, 5MG (Oral Tablet) 1 QHS for 0 days Refills: 0 Ordered:04-Jun-2010 Saloni Serna LPN End : 04-Jun-2010 Inactive MOBIC, 7.5MG (Oral Tablet) 1 tab qd, prn (7.5 MG) Inactive Neurontin 600 MG Oral Tablet 1 (one) Capsule Tablet bid for 0 days Quantity: 180 {Tablet} Refills: 3 Ordered:01-Sep-2016 Martha Brown DO, DO Martha Salinas Start : 24-May-2016 End : 01-Sep-2016 Inactive NYSTATIN, 410792JCXS/ML (Mouth/Throat Suspension) 1 Suspension 5 cc 5 x a day for 10 days for 0 days Refills: 0 Ordered:28-Jun-2011 Patito Tineo Start : 10-Jun-2011 End : 28-Jun-2011 Inactive Oxycodone-Acetaminophen 7.5-325 MG Oral Tablet 1 (one) Tablet q 6 hours prn for 0 days Quantity: 80 {Tablet} Refills: 0 Ordered:20-Mar-2018 Cherie Fountain Start : 07-Mar-2018 End : 20-Mar-2018 Inactive Comments:per pain managment PredniSONE 1 MG Oral Tablet 1-4 Tablet [...] 07-Mar-2017 Inactive Comments:take with food in am PYRIDIUM, 200MG (Oral Tablet) 1 (one) Tablet [...] days Quantity: 1 {Package(s)} Refills: 0 Ordered:19-Feb-2013 hCerie Fountain Start : 28-Jan-2013 End : 19-Feb-2013 [...] Quantity: 90 {Capsule_DR_Part} Refills: 3 Ordered:13-Feb-2012 Fast DOFrana AFoctavia DO, Martha A Start : 13-Feb-2012 End : 13-Feb-2012 Discontinued CYMBALTA, 30MG (Oral Capsule Delayed Release Particles) 1 (one) Capsule DR Part qd for 90 days Quantity: 90 {Capsule_DR_Part} Refills: 3 Ordered:27-Apr-2011 Fast DOFrana AFoctavia DO, Martha A Start : 27-Apr-2011 End : 27-Apr-2011 Discontinued FLAVOXATE HCL, 100MG (Oral Tablet) 1 Tablet tid prn for 0 days Quantity: 15 {Tablet} Refills: 0 Ordered:02-Nov-2012 Fast DOFrana AFoctavia DO, Martha A Start : 02-Nov-2012 End : 02-Nov-2012 Discontinued FLEXERIL, 10MG (Oral Tablet) 1 Tablet qhs prn for 0 days Quantity: 10 {Tablet} Refills: 0 Ordered:27-Apr-2011 Fast DOFrana AFoctavia DO, Martha A Start : 27-Apr-2011 End [...] days Quantity: 1 {Suspension} Refills: 0 Ordered:15-Aug-2012 Kevin DOFrana Lizzy DOFrana A Start : 15-Aug-2012 End : 15-Aug-2012 Discontinued NEXIUM, 40MG (Oral Capsule Delayed Release) [address] bid for 0 days Quantity: 60 {Capsule_DR} Refills: 3 Ordered:27-Apr-2011 Fast DO Martha AFast DO Martha A Start : 27-Apr-2011 End : 27-Apr-2011 Discontinued Comments:1 hour before bed- failed omeprazole and pepcid [place] 3 1200 MG Oral Capsule 2 qd [...] there too Comments: 2004 Date Value Details 14-Feb-2018 Abdomen/Pelvis WITH Contrast Result: Comments: See Note; NOTES: [facility] Imaging Services [address] [facility] [place] [address] Abdomen/Pelvis WITH Contrast MR#: [id number] Acct: [id number] Name: TITA LAW Rita Rep #: [id number] : 1960 F 57 From: Barrera Galeana MD PCP: Martha Brown DO Status: REG CLI Study: Abdomen/Pelvis WITH Contrast Date of Exam: 02/14/18 Exam# [id number] Ordering Dr: Chikis Ashley STUDY: CT ABDOMEN AND PELVIS WITH CONTRAST REASON FOR EXAM: Female, 57 years old. Gross hematuria. RADIATION DOSAGE (If Supplied By Facility): CTDIvol = ( 14.19 ) mGy, DLP = ( 584.65 ) mGycm TECH NIQUE: Transaxial images were obtained from the dome of the diaphragm to the symphysis pubis without oral contrast. 100CC ml of Isovue 300 contrast was administered. Sagittal and coronal images were rec onstructed. Delayed imaging was obtained as well. Individualized dose optimization techniques were used for this CT. COMPARISON: Comparison is made with prior study dated January 08, 2018. FINDINGS: Minimal degree of bibasilar atelectasis. The visualized portions of the heart are within normal limits. Normal liver. Normal gallbladder and extrahepatic biliary sy stem. There are multiple benign calcified granulomata of the spleen. Normal pancreas. Normal bilateral adrenal glands. Normal right kidney. Normal left kidney. Normal visualized stomach. Normal small intestine. Moderate amount of fecal material is seen throughout the colon. The patient is status post appendectomy. There is scattered atherosclerotic calcification of the abdominal aorta, without a d emonstrated aneurysm. Normal inferior vena cava. Normal retroperitoneum. The bladder is empty examination. There is evidence of a cystocele. There is absence of the uterus consistent with a prior hyste rectomy. Normal abdominal wall. Stable postsurgical changes at the L5-S1 level. Grade 1 anterolisthesis of L5 on S1. CT/Abdomen/Pelvis WITH Cont rast IMPRESSION: Moderate amount of fecal material is colon. There is been essentially no change since prior study. Electronically Signed: Barrera Galeana MD at 10:47 EST Tel [phone], Service support , CC: Martha Brown DO; Chikis Ashley MD Retail Assistant: Signed 08-Jan-2018 Abdomen/Pelvis without Cont Result: Comments: See Note; NOTES: [facility] Imaging Services [address] [place] [address] Abdomen/Pelvis without Cont MR#: [id number] Acct: [id number] Name: TITA LAW Rita Rep #: [id number] : 1960 F 57 From: Barrera Galeana MD PCP: Martha Brown DO Status: REG CLI Study: Abdomen/Pelvis without Cont Date of Exam: 01/08/18 Exam# [id number] Ordering Dr: Martha Brown TUDY: CT ABDOMEN [...] Barrera Galeana MD at 13:09 EST Tel [phone], Service support , CC: Martha Brown DO Retail Assistant: Signed 30-Dec-2017 Urgent Care Visit Report Result: Comments: See Note; NOTES: [place] [address] OFFICE VISIT Date of Service: 12/30/17 MR#: [id number] Acct: [id number] Name: TITA LAW Rep #: [id number] : 1960 Provider: APPLE Casiano Age/Sex: 57/F Location: [facility] Status: Signed Intake [...] UTI symptoms. Bleeding, cramping, urgency. Deta ils: TITASUSAN LAW, is a 57 F who presents [...] person, oriented to place, oriented to time [facility] Head: normocephalic Ears: external ears normal, [...] Contrast Result: Comments: See Note; NOTES: [facility] Imaging Services [address] [place] [address] Brain W/WO Contrast MR#: [id number] Acct: [id number] Name: TITA LAW Rep #: [id number] : 1960 F 57 From: Pedro Luis Akhtar MD PCP: Martha Brown DO Status: REG CLI Study: Brain W/WO Contrast Date of Exam: 11/06/17 Exam# [id number] Ordering Dr: Martha Brown DO STUDY: MRI [...] Service support , CC: Martha Brown DO Retail Assistant: Signed 31-Aug-2017 SCREENING MAMM (CAD), BILAT Result: Comments: See Note; NOTES: [facility] Imaging Services [address] [place] [address] SCREENING MAMM (CAD), BILAT MR#: [id number] Acct: [id number] Name: TITA LAW Rep #: [id number] : 1960 F 57 From: Barrera Galeana MD PCP: Martha Brown DO Status: [facility] CL Study: SCREENING MAMM (CAD), BILAT Date of Exam: 08/31/17 Exam# [id number] Ordering Dr: Martha Brown DO MAMMOGRAPHY - [...] biopsy of a clini griselda suspicious abnormality. [id number] Electronically Signed: Barrera Galeana MD at 14:24 EDT Tel [phone], Service support , CC: Martha Brown DO Retail Assistant: Signed 31-Aug-2017 Dexa Bone Density Study Result: Comments: See Note; NOTES: [facility] Imaging Services [address] [place] [address] [place] [address] Dexa Bone Density Study MR#: [id number] Acct: [id number] Name: TITA LAW Rep #: [id number] : 1960 F 57 From: Barrera Galeana MD PCP: Martha Brown DO Status: REG CLI Study: Dexa Bone Density Study Date of Exam: 08/31/17 Exam# [id number] Ordering Dr: Martha Brown DO STUDY: D [...] Barrera Galeana MD at 15:16 EDT Tel [phone], Service support , CC: Martha Brown DO Retail Assistant: Signed 27-Jul-2017 PT D/C Summary (1) Result: Comments: See Note; NOTES: [facility] Physical Therapy [address] [place], [place] [address] Fax REHABILITATION SERVICES DISCHAR SUMMARY MR#: [id number] Acct: [id number] Name: TITA LAW Rep #: [id number] : 1960 57 From: Alan Miller PT, Cert. T, OCS Referring DrIfeanyi: Maddie Munoz Status: REG RCR Insu zaafr: [facility] SELF PAY INSURANCE HP - PT [...] please feel free to call me at [phone]. Thank you for the referral of this patient. Sincerely, Alan Miller PT, <Electronically signed by Alan yuan PT, Cert. T, OCS> 07/27/17 1739 CC: Maddie MCRAE Prebish; Martha Brown DO JLRita Signed 28-Jun-2017 Forearm 2 Views Result: Comments: See Note; NOTES: [facility] Imaging Services [address] [place] [address] Forearm 2 Views MR#: [id number] Acct: [id number] Name: TITA LAW Rep #: [id number] : 1960 F 56 From: Jam Thomas MD PCP: Martha Brown DO Status: REG CLI Study: Forearm 2 Views Date of Exam: 06/28/17 Exam# [id number] Ordering Dr: Martha Brown DO STUDY: X-RAY [...] Service support , CC: Martha Brown DO Retail Assistant: Signed 28-Jun-2017 Wrist min 3 Views Result: Comments: See Note; NOTES: [facility] Imaging Services [address] [place] [address] Wrist min 3 Views MR#: [id number] Acct: [id number] Name: TITA LAW Rep #: [id number] : 1960 F 56 From: Jam Thomas MD PCP: Martha Brown DO Status: REG CLI Study: Wrist min 3 Views Date of Exam: 06/28/17 Exam# [id number] Ordering Dr: Martha Brown DO STUDY: X-RAY [...] Service support , CC: Martha Brown DO Retail Assistant: Signed 28-Jun-2017 Brain/Head without Contrast Result: Comments: See Note; NOTES: [facility] Imaging Services [address] [place] [address] Brain/Head without Contrast MR#: [id number] Acct: [id number] Name: TITA LAW Rep #: [id number] : 1960 F 56 From: Krzysztof Rivera MD PCP: Martha Brown DO Status: REG CLI Study: Brain/Head without Contrast Date of Exam: 06/28/17 Exam# [id number] Ordering Dr: Martha Brown DO STUDY : [...] Service support , CC: Martha Brown DO Retail Assistant: Signed 01-May-2017 Chest PA and Lateral Result: Comments: See Note; NOTES: [facility] Imaging Services [address] [place] [address] Chest PA and Lateral MR#: [id number] Acct: [id number] Name: TITA LAW Rep #: [id number] : 1960 F 56 From: Murray Palma MD PCP: Martha Brown DO Status: REG CLI Study: Chest PA and Lateral Date of Exam: 05/01/17 Exam# [id number] Ordering Dr: Martha Brown DO STUDY: X-RAY [...] MD at 17:05 EST , Service support [phone], CC: Martha Brown DO Retail Assistant: Signed 15-Apr-2017 Discharge Instruction Result: Comments: See Note; NOTES: [facility] Medical Records Department [address] [place] [address] Discharge Instruction 04/15/171812 MR#: [id number] Acct: [id number] Name: TITA MONTOYA Rep #: [id number] : 1960 56 From: Dusty Dumont MD PCP: Martha Brown DO Status: REG ER ED Disposition - Plan for ED Patient: Chief Complaint: Shortness of Breath Inst[facility] Prescriptions: Levofloxacin [Levaquin] 500 mg PO DAILY #7 tab Referrals: Martha Brown DO [Primary Care Provider] - What to do if you have Problems For any increased pain, shortness of b reath, bleeding, nausea or vomiting, chest pain, or any unexpected problems, contact your Primary Care Provider. Call [facility] ([phone]) or report to the closest Emergency Room. Call 911 if necessary. 04/15/171813 <Electronically signed by Dusty Dumont MD> Date Dusty Dumont MD Cosigner Signature (If Indicated): Da te CC: Martha Brown DO 15-Apr-2017 Emergency Department Summary Result: Comments: See Note; NOTES: [facility] Medical Records Department [address] [place] [address] Emergency Department Summary 04/15/171810 MR#: [id number] Acct: [id number] Name: TITA LAW Rep #: [id number] : 1960 56 From: Dusty Dumont MD [...] acquired pneumonia This note was generated with [employer] software. It may contain incorrect words, spelling, [...] problems, contact your Primary Care Provider. Call [employer] [facility] ([phone]) or report to the closest Emergency Room. Call 911 if necessary. 04/15/17 5643 <Electronically signed by Art Dumont MD> Date Dusty Dumont MD Cosigner Signature (If Indicated): Date CC: Martha Brown DO -Mar-2017 Chest PA and Lateral Result: Comments: See Note; NOTES: [facility] Imaging Services [address] [place] [address] Chest PA and Lateral MR#: [id number] Acct: [id number] Name: TITA LAW Rep #: [id number] : 1960 F 56 From: Erasto Persaud MD PCP: Martha Brown DO Status: REG ER Study: Chest PA and Lateral Date of Exam: 04/15/17 Exam# [id number] Ordering Dr: Dusty Dumont MD STUDY: X-RAY [...] CC: Martha Brown DO; Dusty Dumont MD Retail Assistant: Signed 03-Apr-2017 Inital Evaluation (1) - PT Result: Comments: See Note; NOTES: [facility] Physical Therapy [facility] [address] [place], [place] [address] Fax REHABILITATION SERVICES INITIAL EVALUATION MR#: [id number] Acct: [id number] Name: TITA LAW Rep #: [id number] : 1960 56 From: Alan Miller PT, Cert. MDT, OCS Referring Dr.: Maddie Munoz Status: REG RCR Insur ance: [facility] SELF PAY INSURANCE Patient's Visit Information TITA LAW is a 56 year old F referred to Physical Therapy by [employer] [employer] [employer]LPREBI with a diagnosis of L-IVDD,L- STENOSIS,L-SPONDYLOPATHY,MYALGIA. Date [...] to be FAXED BACK to us at [phone] for Medicare purposes. Please let me know if there are questions or concerns regarding this plan of care. Physician Signature: Date: <Electronically signed by Alan Miller PT, Cert. PARRISH, OCS> 04/03/17 1017 CC: Maddie Borwn DO LISHA Signed For Medicare only, by signing this I certify the plan of care. Physicians Signature Date 08-Mar-2017 Thyroid Result: Comments: See Note; NOTES: [facility] Imaging Services [address] [place] [address] Thyroid MR#: [id number] Acct: [id number] Name: TITA LAW Rep #: [id number] : [birth year] F 56 From: Barrera Galeana MD PCP: Martha Brown DO Status: REG CLI Study: Thyroid Date of Exam: 03/08/17 Exam# [id number] Ordering Dr: Martha Brown DO STUDY: THYROID [...] Galeana MD at 14:4 9 EST Tel [phone], Service support , CC: Martha Brown DO Retail Assistant: Signed 06-Dec-2016 TXT - Blood Flow Screening Result: Comments: See Note; NOTES: [facility] Cardiovascular Services [address] [place] [address] 12/06/16 0815 MR#: [id number] Acct: [id number] Name: TITA LAW Rep #: [id number] : 1960 56 From: Shane Cotto MD Attending Dr: Martha Brown DO Status: REG REF Ordering Dr: Date: 12/06/16 Location: [facility] Sex: F C Admitted: Reason For [...] ankle/brachial index is normal (1.0 or greater). .[facility] Physician: Martha Brown D.O Performed By : Marguerite Zarate RVT 12/06/162139 Date Shane Cotto MD CC: Martah Brown DO Sharif e Dictated: 12/06/16814 Date Transcribed: 12/06/162139 Retail Assistant: Signed 13-Sep-2016 Stress Report Result: Comments: See Note; NOTES: [facility] Cardiovascular Services [address] [place] [address] Verdana 4d MR#: [id number] Acct: [id number] Name: TITA LAW Rep #: [id number] [...] patient was injected with 32.8 mCi of Hand Knitter 99m Cardiolite and subsequently stress SPECT Cardiolite [...] of 85%. This note was generated with [employer] software. It may contain incorrect words, spelling, and punctuation that were not noted in checking the not e before signing. 09/13/162053 <Electronically signed by Gato Blair MD> Date Gato Blair MD CC: Martha Brown DO; Gato Blair MD Date Dictated: 09/13/162046 Date Transcribed: 09/13/162046 Retail Assistant: PM Signed 30-Aug-2016 Electroencephalogram Result: Comments: See Note; NOTES: [facility] Pulmonary Services/Neurology [address] [place] [address] MR#: [id number] Acct: [id number] Name: TITA LAW Rep #: [id number] : 1960 56 From: Jacinto Salazar MD [...] Date Dic tated: 08/29/161720 Date Transcribed: 08/29/161720 Retail Assistant: RSR Signed 29-Aug-2016 SCREENING MAMM (CAD), BILAT Result: Comments: See Note; NOTES: [facility] Imaging Services [address] [place] [address] Verdana 4d SCREENING MAMM (CAD), BILAT MR#: [id number] Acct: [id number] Name: GINNY LAW MARY Rep #: [id number] : 1960 F 56 From: Krzysztof White MD PCP: Martha Brown DO Status: REG CLI Study: SCREENING MAMM (CAD), BILAT Date of Exam: 08/29/16 Exam# [id number] Ordering Dr: Martha Brown DO MAMMOGRAPHY - [...] delay biopsy of a clinically suspicious abnormality. [id number] Electronically Signed: Dread White MD at 8:46 EDT , Service support , CC: Martha Brown DO Retail Assistant: Signed 25-Aug-2016 Echocardiogram Complete Result: Comments: See Note; NOTES: [facility] [facility] Services [address] [place] [address] Echo Complete 08/25/16 1207 MR#: [id number] Acct: [id number] Name: TITA LAW Rep #: [id number] : 1960 56 From: Conrado Nolasco MD Attending Dr: Martha Brown DO Status: REG CLI Ordering Dr: Martha Brown DO Date: 08/25/16 Location: [facility] Sex: F C Admitted: Reason For [...] Martha Brown D.O. Performed By: Myra Price [facility] Electronically signed by: Conrado Nolasco MD on 017 01:18 PM 08/25/16 1318 Date Conrado Nolasco MD CC: Martha Brown DO Date Dictated: 08/25/16 1207 Date Transcribed: 08/25/16 1318 Retail Assistant: Signed 09-Aug-2016 Chest PA and Lateral Result: Comments: See Note; NOTES: [facility] Imaging Services [address] [place] [address] Verdana 4d Chest PA and Lateral MR#: [id number] Acct: [id number] Name: TITA LAW Re p #: [id number] : 1960 F 56 From: Dustin Villatoro DO PCP: Martha Brown DO Status: REG CLI Study: Chest PA and Lateral Date of Exam: 08/09/16 Exam# [id number] Ordering Dr: Martha Brown DO STUDY: X-RAY [...] Signed: Dustin Villatoro DO at 22:20 EDT [facility] [phone], Service support , CC: Martha Brown DO Retail Assistant: Signed 21-Jul-2016 Thyroid Result: Comments: See Note; NOTES: [facility] Imaging Services [address] [place] [address] Verdana 4d Thyroid MR#: [id number] Acct: [id number] Name: TITA LAW Rep #: [id number] : 1960 F 56 From: Quentin Inman DO PCP: Martha Brown DO Status: REG CLI Study: Thyroid Date of Exam: 07/21/16 Exam# [id number] Ordering Dr: Martha Brown DO STUDY: THYROID [...] Service support , CC: Martha Brown DO Retail Assistant: Signed 23-Jun-2016 Cerv Spine 4 or 5 Views Result: Comments: See Note; NOTES: [facility] Imaging Services [address] [place] [address] Verdana 4d Cerv Spine 4 or 5 Views MR#: [id number] Acct: [id number] Name: TITA LAW Rep #: [id number] : 1960 F 55 From: Hugo Pearce MD PCP: Martha Brown DO Status: REG CLI Study: Cerv Spine 4 or 5 Views Date of Exam: 06/23/16 Exam# [id number] Ordering Dr: Martha Brown DO ADDENDUM by [...] at 15:59 EDT Tel , Service support [phone], 06/28/16 1559 Date cc: Martha Brown DO [...] support , Fax CC: Martha Brown DO Retail Assistant: Signed 23-Jun-2016 Cerv Spine 4 or 5 Views Result: Comments: See Note; NOTES: [facility] Imaging Services [address] [address] Verdana 4d Cerv Spine 4 or 5 Views MR#: [id number] Acct: [id number] Name: TITA LAW Rep #: [id number] : 1960 F 55 From: Hugo Pearce MD PCP: Martha Brown DO Status: REG CLI Study: Cerv Spine 4 or 5 Views Date of Exam: 06/23/16 Exam# [id number] Ordering Dr: Martha Brown DO STUDY: X-RAY [...] Service support , CC: Martha Brown DO Retail Assistant: Signed 23-Jun-2016 Chest PA and Lateral Result: Comments: See Note; NOTES: [facility] Imaging Services [address] [place] [address] Verdana 4d Chest PA and Lateral MR#: [id number] Acct: [id number] Name: TITA LAW p #: [id number] : 1960 F 55 From: Hugo Pearce MD PCP: Martha Brown DO Status: REG CLI Study: Chest PA and Lateral Date of Exam: 06/23/16 Exam# [id number] Ordering Dr: Martha Brown DO S TUDY: [...] Service support , CC: Martha Brown DO Retail Assistant: Signed 02-Jun-2016 Abdomen WITH IV Contrast Result: Comments: See Note; NOTES: [facility] Imaging Services [address] [address] Verdana 4d Abdomen WITH IV Contrast MR#: [id number] Acct: [id number] Name: BESSY LAW Rep #: [id number] : 1960 F 55 From: Isela Wright MD PCP: Martha Brown DO Status: REG CLI Study: Abdomen WITH IV Contrast Date of Exam: 06/02/16 Exam# [id number] Ordering Dr: Martha Brown DO A DDENDUM [...] MD at 7:28 EDT , Service support [phone], Fax CC: Martha Brown DO Retail Assistant: Signed 02-Jun-2016 Abdomen WITH IV Contrast Result: Comments: See Note; NOTES: [facility] Imaging Services [address] [place] [address] Verdana 4d Abdomen WITH IV Contrast MR#: [id number] Acct: [id number] Name: BESSY LAW Rep #: [id number] : 1960 F 55 From: Isela Wright MD PCP: Martha Brown DO Status: REG CLI Study: Abdomen WITH IV Contrast Date of Exam: 06/02/16 Exam# [id number] Ordering Dr: Martha Brown TUDY: CT ABDOMEN [...] MD at 7:28 EDT , Service support [phone], CC: Martha Brown DO Retail Assistant: Signed 19-May-2016 Hepatobilliary Img w/Pharm Int Result: Comments: See Note; NOTES: [facility] Imaging Services [address] [place] [address] Verdana 4d Hepatobilliary Img w/Pharm Int MR#: [id number] Acct: [id number] Name: TITA LAW Rep #: [id number] : 1960 F 55 From: Mario Olivo DO PCP: Martha Brown DO Status: REG CLI Study: Hepatobilliary Img w/Pharm Int Date of Exam: 05/19/16 Exam# [id number] Ordering Dr: Carrington Brown DO CLINICAL: 55-year-old [...] 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 (Yakelin Anderson e t al, Journal of Nuclear Medicine 32:1695, 1990). 2. There is scintigraphic evidence of post CCK duodenal-gastric reflux. (Roger england al, Nucl Med Janel Joan Press pg. 35, 1980). Electronically Signed : Mario Olivo DO at 22:51 EDT Tel , Service support [phone], CC: Martha Brown DO Retail Assistant: Signed 12-May-2016 Liver Result: Comments: See Note; NOTES: [facility] Imaging Services [address] [place] [address] Agnes 4d Liver MR#: [id number] Acct: [id number] Name: TITA LAW Rep #: [id number] : 1960 F 55 From: Barrera Galeana MD PCP: Martha Brown DO Status: REG CLI Study: Liver Date of Exam: 05/12/16 Exam# [id number] Ordering Dr: Martha Brown DO STUDY: ABDOMINAL [...] Barrera Galeana MD at 11:28 EDT Tel [phone], Service anthony pport [phone], CC: Martha Brown DO Retail Assistant: Signed 20-Apr-2016 NCS and/or EMG Patient Result: Comments: See Note; NOTES: [facility] Pulmonary Services/Neurology [address] [place] [address] NCS and/or EMG Patient MR#: [id number] Acct: [id number] Name: TITA LAW Rep #: [id number] : 1960 55 From: Pardeep Read MD Referring Dr: Eusebio Braswell MD Status: REG CLI Ordering Dr: Eusebio Braswell MD Date: 04/20/16 Location: [facility] Sex: F C DATE OF [...] nerve. Pardeep Read MD T: NTS JOB: [id number] 04/20/16 1556 <Electronically signed by Pardeep Read MD> Date Pardeep Read MD CC: Martha Brown DO; Pardeep Read MD; Eusebio Braswell MD Date Dictated: 04/20/161106 Date Transcribed: 04/20/161106 Retail Assistant: Signed 15-Mar-2016 Fluoro Guided Lumbar Puncture Result: Comments: See Note; NOTES: [facility] Imaging Services [address] [place] [address] Verdana 4d Fluoro Guided Lumbar Puncture MR#: [id number] Acct: [id number] Name: Niecy LAW Rep #: [id number] : 1960 F 55 From: Barrera Galeana MD PCP: Martha Brown DO Status: REG CLI Study: Fluoro Guided Lumbar Puncture Date of Exam: 03/15/16 Exam# [id number] Ordering Dr: Pepper Benoit PROCEDURE: Fluoroscopic guided [...] procedure were explained to the patient. The [facility] risks of bleeding, infection, and neurovascular injury [...] Barrera Galeana MD at 10:09 EST Tel [phone], Service support [phone], CC: Pepper Barr MORTGAGE CONSULTANT; Martha Brown DO Retail Assistant: Signed 11-Mar-2016 Thyroid Result: Comments: See Note; NOTES: [facility] Imaging Services [address] [place] [address] Verdana 4d Thyroid MR#: [id number] Acct: [id number] Name: TITA LAW Rep #: [id number] : 1960 F 55 From: Barrera Galeana MD PCP: Martha Brown DO Status: REG CLI Study: Thyroid Date of Exam: 03/11/16 Exam# [id number] Ordering Dr: Martha Brown DO STUDY: THYROID [...] Barrera Galeana MD at 15:57 EST Tel [phone], Service support [phone], CC: Martha Brown DO Retail Assistant: Signed 10-Feb-2016 Brain W/WO Contrast Result: Comments: See Note; NOTES: [facility] Imaging Services [address] [place] [address] Verda 4d Brain W/WO Contrast MR#: [id number] Acct: [id number] Name: TITA LAW Rep #: [id number] : 1960 F 55 From: Madeleine Villar MD PCP: Martha Brown DO Status: REG CLI Study: Brain W/WO Contrast Date of Exam: 02/10/16 Exam# [id number] Ordering Dr: Martha Brown DO STUDY: MRI [...] MD at 23:33 EST , Service support [phone], CC: Martha Brown DO Retail Assistant: Signed 25-Jan-2016 Cerv Spine 2 or 3 Views Result: Comments: See Note; NOTES: [facility] Imaging Services [address] [place], [place] [address] [place] [address] Ver[place] 4d Cerv Spine 2 or 3 Views MR#: [id number] Acct: [id number] Name: TITA LAW Rep #: [id number] : 1960 F 55 From: Julio Cesar Soto MD PCP: Martha Brown DO Status: REG CLI Study: Cerv Spine 2 or 3 Views Date of Exam: 01/25/16 Exam# [id number] Ordering Dr: Matt Wilburn STUDY : X-RAY [...] FACR at 16:52 EST , Service support [phone], CC: MATT WILBURN; Martha Brown DO Retail Assistant: Signed 25-Jan-2016 Spine Cervical (Routine) Result: Comments: See Note; NOTES: [facility] Imaging Services [address] [place] [address] Verda 4d Spine Cervical (Routine) MR#: [id number] Acct: [id number] Name: BESSY LAW Rep #: [id number] : 1960 F 55 From: Julio Cesar Soto MD PCP: Martha Brown DO Status: REG CLI Study: Spine Cervical (Routine) Date of Exam: 01/25/16 Exam# [id number] Ordering Dr: Matt Wilburn DY: MRI CERVICAL [...] FACR at 15:55 EST , Service support [phone], CC: MATT WILBURN; Martha Brown DO Retail Assistant: Signed 31-Dec-2015 L/S Spine Bending Flex/Ext Result: Comments: See Note; NOTES: [facility] Imaging Services [address] [place] [address] Verdana 4d L/S Spine Bending Flex/Ext MR#: [id number] Acct: [id number] Name: GINNY LAW Rep #: [id number] : 1960 F 55 From: Barrera Galeana MD PCP: Martha Brown DO Status: REG CLI Study: L/S Spine Bending Flex/Ext Date of Exam: 12/31/15 Exam# [id number] Ordering Dr: Carrington Wilburn STUDY: X-RAY - [...] Galeana MD 4 at 11:17 EDT Tel [phone], Service support [phone], CC: MATT WILBURN; Marhta Brown DO Retail Assistant: Signed 24-Dec-2015 Chest 1 View (Portable) Result: Comments: See Note; NOTES: [facility] Imaging Services [address] [place] [address] Verdana 4d Chest 1 View (Portable) MR#: [id number] Acct: [id number] Name: BESSY LAW Rep #: [id number] : 1960 F 55 From: Barrera Galeana MD PCP: Martha Brown DO Status: REG ER Study: Chest 1 View (Portable) Date of Exam: 12/24/15 Exam# [id number] Ordering Dr: Rashad Acosta MD STUDY: X-RAY [...] Barrera Galeana MD at 15:13 EDT Tel [phone], Service support [phone], CC: Martha Brown DO; Rashad Acosta MD Retail Assistant: Signed 10-Oct-2015 Spine Lumbar without Contrast Result: Comments: See Note; NOTES: [facility] Imaging Services [address] [place] [address] Verdana 4d Spine Lumbar without Contrast MR#: [id number] Acct: [id number] Name: TITA LAW Rep #: [id number] : 1960 F 55 From: Quentin Inman DO PCP: Martha Brown DO Status: REG CLI Study: Spine Lumbar without Contrast Date of Exam: 10/10/15 Exam# [id number] Ordering Dr: Ruben Wilburn STUDY: CT LUMBAR [...] at 16:29 EDT Tel , Service support [phone], CC: MATT Brown DO Retail Assistant: Signed 07-Oct-2015 Spine Thoracic (Routine) Result: Comments: See Note; NOTES: [facility] Imaging Services [address] [place] [address] [place] [address] Verdana 4d Spine Thoracic (Routine) MR#: [id number] Acct: [id number] Name: SARINA LAW IS Rep #: [id number] : 1960 F 55 From: Basil Culver MD PCP: Martha Brown DO Status: REG CLI Study: Spine Thoracic (Routine) Date of Exam: 10/07/15 Exam# [id number] Ordering Dr: MANDEEP DILLON MD STUDY: MRI [...] at 16:32 EDT Tel , Service support [phone], CC: Martha Brown DO; MANDEEP DILLON MD Retail Assistant: Signed 29-Sep-2015 ELECTROCARDIOGRAM, COMPLETE (ECG) (17947) Comments: ekg showed normal sinus rhythym, normal axis, no acute st/t wave changes Result: [MEASUREMENTS ANALYSIS] Date of Test: 09/29/2015 10:02:56; Heart Rate: 70; OK Interval: 158; QRS: 90; QT Interval: 396; Corrected QT Interval (QTc): 413; P Wave [place]: 73; QRS Wave [place]: 71; T Wave [place]: 67; Blood Pressure: 110/70 [ECG DIAGNOSTIC STATEMENTS] Date of Test: 09/29/2015 10:02:56; Summary: Sinus Rhythm WITHIN NORMAL LIMITS 03-Sep-2015 Spine Lumbar (Routine) Result: Comments: See Note; NOTES: [facility] Imaging Services [address] [place] [address] Verdana 4d Spine Lumbar (Routine) MR#: [id number] Acct: [id number] Name: TITA DUEÑAS Rep #: [id number] : 1960 F 55 From: Julio Cesar Soto MD PCP: Martha Brown DO Status: REG CLI Study: Spine Lumbar (Routine) Date of Exam: 09/03/15 Exam# [id number] Ordering Dr: Martha Brown DO STUDY: MRI [...] FACR at 11:54 EDT , Service support [phone], CC: Martha Brown DO Retail Assistant: Signed 27-Aug-2015 Bilat Scrn Digital AND CAD Result: Comments: See Note; NOTES: [facility] Imaging Services [address] [place] [address] Verdana 4d Bilat Scrn Digital AND CAD MR#: [id number] Acct: [id number] Name: TITA LAW Rep #: [id number] : 1960 F 55 From: Barrera Galeana MD PCP: Martha Brown DO Status: REG CLI Study: Bilat Scrn Digital AND CAD Date of Exam: 08/27/15 Exam# [id number] [facility] ng Dr: Martha Brown DO MAMMOGRAPHY - [...] delay biopsy of a clinically suspicious abnormality. [id number] Electronically Signed: Barrera Galeana MD a t 8:51 EDT Tel [phone], Service support [phone], CC: Martha Brown DO Retail Assistant: Signed 27-Aug-2015 Dexa Bone Density Study (HP) Result: Comments: See Note; NOTES: [facility] Imaging Services [address] [place] [address] Verdana 4d Dexa Bone Density Study (HP) MR#: [id number] Acct: [id number] Name : TITA LAW Rep #: [id number] : 1960 F 55 From: Barrera Galeana MD PCP: Martha Brown DO Status: [facility] CLI Study: Dexa Bone Density Study (HP) Date of Exam: 08/27/15 Exam# [id number] Or bernardo Dr: Martha Brown DO STUDY: DUAL ENERGY [...] Barrera Galeana MD at 14:42 EDT Tel [phone], Service support [phone], CC: Martha Brown DO Retail Assistant: Signed 27-Aug-2015 Hip 2-3 Views with Pelvis Result: Comments: See Note; NOTES: [facility] Imaging Services [address] [place] [address] Verdana 4d Hip 2-3 Views with Pelvis MR#: [id number] Acct: [id number] Name: TITA AMBROCIO Rep #: [id number] : 1960 F 55 From: Murray Palma MD PCP: Martha Brown DO Status: REG CLI Study: Hip 2-3 Views with Pelvis Date of Exam: 08/27/15 Exam# [id number] Ordering Dr: Martha Johnson DO STUDY: X-RAY [...] MD at 16:31 EDT , Service support [phone], CC: Martha Brown DO Retail Assistant: Signed 09-Feb-2015 Chest PA and Lateral Result: Comments: See Note; NOTES: [facility] Imaging Services [address] [place] [address] Verda 4d Chest PA and Lateral MR#: [id number] Acct: [id number] Name: TTIA MCLEAN Rep #: [id number] : 1960 F 54 From: Barrera Galeana MD PCP: Martha Brown DO Status: REG CLI Study: Chest PA and Lateral Date of Exam: 02/09/15 Exam# [id number] Ordering Dr: Abby Rivera STUDY: X-RAY CHEST [...] Barrera Galeana MD at 15:21 EST Tel [phone], Service support [phone], RAD/Chest PA and Lateral IMPRESSION: Hyperinflation. No acute abnormality is seen. Electronically Signed: Barrera Galeana MD at 15:21 EST Tel [phone], Service support [phone], CC: Abby Rivera; Martha Brown DO Retail Assistant: Signed 30-Jun-2014 Minor Dennis Digital AND CAD Result: Comments: See Note; NOTES: [facility] Imaging Services [address] [place] [address] Breast Imaging Report MR#: [id number] Acct: [id number] Name: TITA LAW Rep #: [id number] : 1960 F 53 From: Barrera Galeana MD PCP: Martha Brown DO Status: REG CLI Study: Bilat Scrn Digital AND CAD Date of Exam: 06/30/14 Exam# [id number] Ordering Dr: Martha Brown DO MAMMOGRAPHY - BILATERAL SCREENING REASON FOR EXAM: Female, 53 years old. Routine annual screening examination. PERTINENT HISTORY: Mother with breast cancer. Prior left stereotactic biopsy. TE AYESHANIGANESH: Digital examination. Mediolateral oblique (MLO) and craniocaudad [...] Galeana MD at 9 :06 EDT Tel [phone], Service support [phone], CC: Martha Brown DO Retail Assistant: Signed 07-Oct-2013 Extremity Lower WITH Contrast Result: Comments: See Note; NOTES: [facility] Imaging Services [address] [place] [address] CAT Scan Report MR#: [id number] Acct: [id number] Name: TITA LAW Rep #: [id number] : 1960 F 53 From: Barrera Galeana MD PCP: Martha Brown DO Status: REG CLI Study: Extremity Lower WITH Contrast Date of Exam: 10/07/13 Exam# [id number] Ordering Dr: Martha Brown DO STUDY: CT [...] Barrera Galeana MD at 15:02 EDT Tel [phone], Service support [phone], CC: Martha Brown DO Retail Assistant: Signed 25-Sep-2013 Forearm 2 Views Result: Comments: See Note; NOTES: [facility] Imaging Services [address] [place] [address] Radiology Report MR#: [id number] Acct: [id number] Name: TITA LAW Rep #: [id number] : 1960 F 53 From: Barrera Galeana MD PCP: Martha Brown DO Status: REG CLI Study: Forearm 2 Views Date of Exam: 09/25/13 Exam# [id number] Ordering Dr: Martha Brown DO STUDY: X-RAY [...] Barrera Galeana MD at 16:16 EDT Tel [phone], Service support [phone], RAD/Forearm 2 Views IMPRESSION: Normal x-ray examination of the radius and ulna. Electronically Signed: Barrera Galeana MD at 16:16 EDT Tel [phone], Service support [phone], CC: Martha Brown DO Retail Assistant: Signed 25-Sep-2013 Hip min 2 Views Result: Comments: See Note; NOTES: [facility] Imaging Services [address] [place] [address] Radiology Report MR#: [id number] Acct: [id number] Name: TITA LAW Rep #: [id number] : 1960 F 53 From: Barrera Galeana MD PCP: Martha Brown DO Status: REG CLI Study: Hip min 2 Views Date of Exam: 09/25/13 Exam# [id number] Ordering Dr: Martha Brown DO STUDY: X-RAY [...] Barrera Galeana MD at 16:18 EDT Tel [phone], Service support [phone], Fax CC: Martha Brown DO Retail Assistant: Signed 25-Sep-2013 Pelvis 1 or 2 Views Result: Comments: See Note; NOTES: [facility] Imaging Services [address] [place] [address] Radiology Report MR#: [id number] Acct: [id number] Name: TITA LAW Rep #: [id number] : 1960 F 53 From: Khang Braun MD PCP: Martha Brown DO Status: REG CLI Study: Pelvis 1 or 2 Views Date of Exam: 09/25/13 Exam# [id number] Ordering Dr: Martha Brown DO STUDY: X-RAY [...] MD at 16:24 EDT , Service support [phone], 0063 RAD/Pelvis 1 or 2 Views IMPRESSION: Normal x-ray examination of the pelvis. Electronically Signed: Khang Braun MD at 16:24 EDT , Service support [phone], CC: Martha Brown DO Retail Assistant: Signed 25-Sep-2013 Thoracic Spine 3 Views Result: Comments: See Note; NOTES: [facility] Imaging Services [address] [place] [address] Radiology Report MR#: [id number] Acct: [id number] Name: TITA LAW Rep #: [id number] : 1960 F 53 From: Barrera Galeana MD PCP: Martha Brown DO Status: REG CLI Study: Thoracic Spine 3 Views Date of Exam: 09/25/13 Exam# [id number] Ordering Dr: Martha Brown DO STUDY: X-RAY [...] Ac Galeana MD at 16:19 EDT Tel [phone], Service support [phone], RAD/Thoracic Spine 3 Views IMPRESSION: Degenerative changes. Elect ronically Signed: Barrera Galeana MD at 16:19 EDT Tel [phone], Service support [phone], CC: Martha Brown DO Retail Assistant: Signed 24-Jun-2013 Minor Dennis Digital & CAD Result: Comments: See Note; NOTES: [facility] Imaging Services [address] [place] [address] Breast Imaging Report MR#: [id number] Acct: [id number] Name: TITA LAW Rep #: [id number] : 1960 F 52 From: Barrera Galeana MD PCP: Martha Brown DO Status: REG CLI Exam# [id number] Ordering Dr: Shahla Myers MD MAMMOGRAPHY - [...] Barrera Galeana MD at 9:32 EDT Tel [phone], Service support [phone], F ax [phone] CC: Martha Brown DO; Shahla Myers MD Retail Assistant: Signed 14-May-2013 Chest PA and Lateral Result: Comments: See Note; NOTES: [facility] Imaging Services [address] [place] [address] Radiology Report MR#: [id number] Acct: [id number] Name: TITA LAW Rep #: [id number] : 1960 F 52 From: Barrera Galeana MD PCP: Martha Brown DO Status: REG CLI Study: Chest PA and Lateral Date of Exam: 05/14/13 Exam# [id number] Ordering Dr: Martha Brown DO STUDY: X [...] M.D. at 14:47 EDT , Service support [phone], CC: Martha Brown DO Retail Assistant: Signed Family History Unknown Family Member Name [...] smoker Vital Signs Date Test Result Details 36-Kmz-729052:41 Temperature 98.4 f Comments: Method: Temporal Pulse 68 /min [...] kg/m2 Body Surface Area Calculated 1.76 m2 :11 Temperature 97.6 f Comments: Method: Temporal Pulse 61 /min Comments: Pattern: Regular Respiration Rate 16 /min Comments: Pattern: Unlabored O2 SAT 96 % Comments: Room air BP Systolic 118 mm[Hg] Comments: Patient Position: Sitting; Cuff Location: Left Arm; Cuff Size: Standard BP Diastolic 70 mm[Hg] Comments: Patient Position: Sitting; Cuff Location: Left Arm; Cuff Size: Standard Weight 146 lb Height 66.3 in Body Mass Index Calculated 23.35 kg/m2 Body Surface Area Calculated 1.76 m2 06-Zhp-929127:25 Temperature 97.9 f Comments: Method: Temporal Pulse 72 /min Comments: Pattern: Regular Respiration Rate 20 /min Comments: Pattern: Unlabored O2 SAT 97 % Comments: Room air BP Systolic 108 mm[Hg] Comments: Patient Position: Sitting; Cuff Location: Left Arm; Cuff Size: Standard BP Diastolic 70 mm[Hg] Comments: Patient Position: Sitting; Cuff Location: Left Arm; Cuff Size: Standard Weight 149 lb Height 66.3 in Body Mass Index Calculated 23.83 kg/m2 Body Surface Area Calculated 1.77 m2 :08 Temperature 98.2 f Comments: Method: Temporal [...] kg/m2 Body Surface Area Calculated 1.8 m2 61-Jlw-114886:23 Temperature 98.7 f Comments: Method: Temporal Pulse [...] kg/m2 Body Surface Area Calculated 1.8 m2 12-Wzc-876495:15 Comments: ihbyhrfixd262/72, 60sitting 98/56 67standing 94/58, 78 Temperature 97.5 [...] kg/m2 Body Surface Area Calculated 1.81 m2 72-Dci-603021:30 Pulse 80 /min Comments: Pattern: Regular Respiration Rate 16 /min Comments: Pattern: Unlabored BP Systolic 110 mm[Hg] Comments: Patient Position: Sitting; Cuff Location: Left Arm; Cuff Size: Standard BP Diastolic 72 mm[Hg] Comments: Patient Position: Sitting; Cuff Location: Left Arm; Cuff Size: Standard Weight 155 lb Results Date Description Value Details 4-Jgw-531480:12 CBC W/Diff, Automated Comments: [facility] [id number] [place], [address] Absolute Lymph 1.71 {X10_3/ul} (Normal) Range: 0.83-4.51 Absolute Neut 5.6 {X10_3/uL} (Normal) Range: 2.0-7.7 IM GRAN % 0.100 % (Normal) Range: 0.0-0.9 Comments: IG% - Immature Granulocytes (promyelocytes, myelocytes andmetamyelocytes) > 1% indicates that a LEFT SHIFT is Present. BASO% 0.2 % (Normal) Range: 0-1 EO% 0.5 % (Normal) Range: 0-5 MONO% 9.0 % (Normal) Range: 0-10 LY% 21.0 % (Normal) Range: 19-41 NEUT% 69.2 % (Normal) Range: 47-70 MPV 10.2 fL (Normal) Range: 6.2-12.0 PLT 243 K/mm3 (Normal) Range: 150-450 RDW SD 46.8 fL (Abnormal) Range: 35.1-43.9 RDW CV 13.2 % (Normal) Range: 11.6-14.6 MCHC 33.0 {g/gl} (Normal) Range: 32-36 MCH 32.4 pg (Abnormal) Range: 27.0-32.0 MCV 98.2 fL (Normal) Range: 81-99 HCT 37.6 % (Normal) Range: 37-47 HGB 12.4 g/dL (Normal) Range: 12.0-15.0 RBC 3.83 {M/mm3} (Abnormal) Range: 4.2-5.4 WBC 8.2 K/mm3 (Normal) Range: 4.4-11.0 0-Ins-429397:12 Comprehensive Metabolic Comments: ADD TSH ON TO 0104:[id number]:FG3-4-FHas Patient had X-rays with Contrast this admission? NIs Patient on Heparin? [facility] [address] [place], [address] Profil GAP 9 (Normal) Range: 5-15 CO2 25.0 mmol/L (Normal) Range: 21.0-32.0 CL 107 mmol/L (Normal) Range: 98-107 K 3.8 mmol/L (Normal) Range: 3.5-5.1 NA 141 mmol/L (Normal) Range: 136-145 T BILI 0.60 mg/dL (Normal) Range: 0.20-1.00 ALT 26 U/L (Normal) Range: 13-56 ALK P 46 U/L (Normal) Range: 45-117 AST 14 U/L (Abnormal) Range: 15-37 CA 8.6 mg/dL (Normal) Range: 8.5-10.1 A/G 1.3 {RATIO} (Normal) Range: 0.9-2.4 GLOB 3.1 g/dL (Normal) Range: 2.2-4.2 ALB 4.0 g/dL (Normal) Range: 3.2-5.0 T PROT 7.1 g/dL (Normal) Range: 6.4-8.2 BUN/CRE 12.2 {RATIO} (Normal) Range: 10-20 EST GFR - AA 93 mL/min (Normal) Comments: GFR Calc EST GFR 77 mL/min (Normal) Comments: Non- GFR Calc CREAT,SERUM 0.82 mg/dL (Normal) Range: 0.55-1.02 Comments: The validity of the calculated GFR AND GFRAA in patients over70 years has not been determined. Clinical correlation isessential. BUN 10 mg/dL (Normal) Range: 7-18 GLU 98 mg/dL (Normal) Range: 74-106 Comments: Please note revised GLUCOSE reference range pntcjlrde89/02/2018. 4-Abx-132629:12 Free T3 Comments: ADD TSH ON TO 0104:[id number]:FG3-4-FHas Patient had X-rays with Contrast this admission? NIs Patient on Heparin? [facility] [address] [place], [address] FREE T3 3.5 pg/mL (Normal) Range: 2.18-3.98 3-Kdj-366538:12 Hemoglobin A1c Comments: [facility] [address] [place], [address] HGB A1C 5.8 % (Normal) Range: 4.2-6.3 5-Qdo-237261:12 Lipid Profile Comments: ADD TSH ON TO 010:[id number]:FG3-4-FHas Patient had X-rays with Contrast this admission? NIs Patient on Heparin? [facility] [address] [place], [address] VLDL 15 mg/dL (Normal) Range: 5-40 LDL 70 mg/dL (Normal) Range: 0-130 HDL 78 mg/dL (Normal) Comments: The drugs N-Acetylcysteine and Metamizole may falselydepress this assay. Reference Range HDL <40 mg/dL Low HDL Cholesterol HDL >or= 60 mg/dL High HDL Cholesterol TRIG 75 mg/dL (Normal) Comments: The drugs N-Acetylcysteine and Metamizole may falselydepress this assay.Serum Triglycerides Reference Interval Normal <150 mg/dL Borderline high 150 - 199 mg/dL High 200 - 499 mg/dL Very High > or = 500 mg/dL CHOL 163 mg/dL (Normal) Comments: <200 mg/dL Desirable 200-240 mg/dL Borderline >240 mg/dL High Risk 0-Mgd-940399:12 T4 Free Direct Comments: ADD TSH ON TO 0104:[id number]:FG3-4-FHas Patient had X-rays with Contrast this admission? NIs Patient on Heparin? [facility] [address] [place], [place], [address] T4 FREE DIRECT 0.99 ng/dL (Normal) Range: 0.76-1.46 9-Bmf-421913:12 Thyroid Stim Hormone Comments: ADD TSH ON TO 0104:[id number]:FG3-4-FHas Patient had X-rays with Contrast this admission? NIs Patient on Heparin? [facility] [address] [facility] [place], [place], [address] (TSH) TSH 0.15 {uIU/mL} (Abnormal) Range: 0.358-3.74 23-Qar-738289:56 CBC W/Diff, Automated Comments: [facility] [address] [place], [place], [address] Absolute Lymph 1.33 {X10_3/ul} (Normal) Range: 0.83-4.51 [...] 4.2-5.4 WBC 14.0 K/mm3 (Abnormal) Range: 4.4-11.0 84-Fyk-552303:56 Comprehensive Metabolic Profil Comments: [facility] [address] [place], [address] GAP 9 (Normal) Range: 5-15 CO2 26.0 [...] Comments: Please note revised GLUCOSE reference range zhywjoxpr25/02/2018. 86-Oup-259817:15 URINE ARELY CULTURE-IDENTIFICATN Comments: PATIENT NOT FASTINGPERFORMED BY: [facility] Xmezcj9250 [facility] [id number] Information: SRC:THAD (45954) Result 1 NG36 (Normal) Comments: No growth in 36 - 48 hours. Urine Culture,Comprehensive Final report (Normal) 99-Olu-491683:01 Urinalysis, Office (24906) UA - LEUKOCYTE ESTERASE Large (Normal) UA - NITRITE Positive (Normal) URINE UROBILINGN SPRING TIMED 2 mg/dL (Normal) UA - PROTEIN 300 mg/dL (Normal) UA - PH 7 (Normal) UA - BLOOD Hemolyzed Large (Normal) UA - SPECIFIC GRAVITY 1.020 (Normal) UA - KETONES 15 mg/dL (Abnormal) UA - BILIRUBIN Large (Normal) UA - GLUCOSE Negative (Normal) 0-Tdv-160423:45 Culture, Urine Comments: [facility] [address] [place] [place], [address] CUUR See Note (Normal) Comments: Urine CultureORGANISM [...] $ >=320 R(NF) indicates non-formulary drug at [facility]. Approval by Infectious Disease Specialist required before non-formulary drugs may be ordered and/or dispensed. 8-Cnj-015711:45 Urinalysis, Complete Comments: How was Urine Obtained? CLEAN [facility] [address] [facility] [place], [address] CA OX CRYSTAL 1+ {/hpf} (Normal) MUCUS, [...] (Normal) CLARITY Cloudy (Normal) COLOR Yellow (Normal) 07-Zgn-346999:49 CBC (AUTO) (35888) Comments: PATIENT NOT FASTINGPERFORMED BY: [email or web address].comFour Corners Regional Health CenterUxzdjq6775 [facility] [id number] Platelets 303 {x10E3/uL} (Normal) Range: 150-379 RDW 14.5 % (Normal) Range: 12.3-15.4 MCHC 33.9 g/dL (Normal) Range: 31.5-35.7 MCH 32.4 pg (Normal) Range: 26.6-33.0 MCV 96 fL (Normal) Range: 79-97 Hematocrit 37.5 % (Normal) Range: 34.0-46.6 Hemoglobin 12.7 g/dL (Normal) Range: 11.1-15.9 RBC 3.92 {x10E6/uL} (Normal) Range: 3.77-5.28 WBC 7.9 {x10E3/uL} (Normal) Range: 3.4-10.8 20-Ylr-638665:49 MICROALBUMIN: CREATININE RATIO Comments: PATIENT NOT FASTINGPERFORMED BY: [email or web address].comHackettstown Medical CenterHfrnro4649 [facility] [id number] (80314) AND (52029) Alb/Creat Ratio 4.1 {mg/g_creat} (Normal) Range: 0.0-30.0 Comments: Normal: 0.0 - 30.0 Albuminuria: 31.0 - 300.0 Clinical albuminuria: >300.0 Albumin, Urine 6.7 ug/mL (Normal) Creatinine, Urine 161.5 mg/dL (Normal) 88-Vnc-817291:49 METABOLIC PANEL, COMPREHENSIVE Comments: PATIENT NOT FASTINGPERFORMED BY: [facility] Hwsfmy8042 [facility] [id number]; appt 12/05 (64435) ALT (SGPT) 14 [iU]/L (Normal) Range: 0-32 [...] 6-24 Glucose 94 mg/dL (Normal) Range: 65-99 1-Bqm-108811:22 CBC W/Diff, Automated Comments: [facility] [address] [place], [address] Absolute Lymph 1.79 {X10_3/ul} (Normal) Range: 0.83-4.51 [...] 4.2-5.4 WBC 6.3 K/mm3 (Normal) Range: 4.4-11.0 7-Kbs-056065:22 Comprehensive Metabolic Profil Comments: [facility] [address] [place], [place], [address] GAP 8 (Normal) Range: 5-15 CO2 25.0 [...] Comments: Please note revised GLUCOSE reference range lkteohsit22/02/2018. 3-Vyg-497684:22 CRP Comments: [address] [place], [place], [address] C-REACTIVE PROT < 2.90 mg/L (Normal) Range: 0.0-3.0 Comments: C-Reactive Protein (CRP) provides useful information for thediagnosis, therapy and monitoring of inflammatory processesand associated diseases. For the evaluation of Relative Riskfor Cardiovascular Dise ase, a High Sensitivity CRP (HSCRP)should be ordered. 1-Adb-671358:22 Erythrocyte Sed Rate Comments: [address] [place], [place], [address] SED RATE 3 mm/h (Normal) Range: 0-30 9-Ayf-165576:22 Hemoglobin A1c Comments: [address] [place], [place], [address] HGB A1C 5.7 % (Normal) Range: 4.2-6.3 :22 Lipid Profile Comments: [address] [place], [place], [address] VLDL 21 mg/dL (Normal) Range: 5-40 LDL [...] 200-240 mg/dL Borderline >240 mg/dL High Risk 3-Fck-892262:22 Vitamin D,25 Hydroxy Comments: [facility] [address] [place], [place], [address] Vitamin D 25-OH 36.0 ng/mL (Normal) Range: 29.95-100.01 Comments: Vitamin D 25(OH) Status Range Deficiency <20 ng/mL (50nmol/L) Insuffciency 20 - 30 ng/mL (50 - 75 nmol/L) Sufficiency 30 - 100 ng/mL (75 - 250 nmol/L) Toxicity >100 ng/mL (>250 nmol/L) 10-Dtu-861652:37 CBC W/Diff, Automated Comments: [facility] [address] [place], [address] ; appt 5/2 Absolute Lymph [...] 4.2-5.4 WBC 5.5 K/mm3 (Normal) Range: 4.4-11.0 20-Typ-511583:37 Comprehensive Metabolic Profil Comments: [facility] [address] [place], [address] GAP 8 (Normal) Range: 5-15 CO2 24.0 [...] Comments: Please note revised GLUCOSE reference range wknrwxnwo04/02/2018. 08-Ctx-038475:37 Hemoglobin A1c Comments: [facility] [address] [place], [place], [address] HGB A1C 5.9 % (Normal) Range: 4.2-6.3 02-Hqs-252861:37 Lipid Profile Comments: [facility] [address] [place], [place], [address] VLDL 16 mg/dL (Normal) Range: 5-40 LDL [...] 200-240 mg/dL Borderline >240 mg/dL High Risk 46-Edn-938697:06 METABOLIC PANEL, COMPREHENSIVE Comments: PATIENT NOT FASTINGPERFORMED BY: [facility] Lvysyo4831 [facility] [id number] (13464) ALT (SGPT) 19 [iU]/L (Normal) Range: 0-32 [...] Glucose, Serum 84 mg/dL (Normal) Range: 65-99 80-Pyh-328532:26 CBC W/Diff, Automated Comments: [facility] [address] [place], [place], [address] ; patient coming in today Absolute Lymph [...] 4.2-5.4 WBC 10.1 K/mm3 (Normal) Range: 4.4-11.0 65-Tuq-850627:26 EBV Acute Prof IgG / IgM Comments: [facility] (refer to report for specific site)refer to report for address and phone number INTERPRETATION Comment (Normal) Comments: EBV Interpretation ChartInterpretation EBV-IgM EA(D)-IgG VCA-IgG EBNA-IgGEBV Seronegative - - - -Early Phase + - - -Acute Primary + +or- + -InfectionConvalescence/Past - +or- + +InfectionReactivated +or- + + +Infection + Antibody Present - Antibody Ab sentPerformed at: [facility] [id number] Director: Sean Daniel PhD, Phone: [phone] EB-NAg [id number] > 600.0 U/mL (Abnormal) Range: 0.0-17.9 Comments: Negative <18.0 Equivocal 18.0 - 21.9 Positive >21.9 EB-VCA [id number] 226.0 U/mL (Abnormal) Range: 0.0-17.9 Comments: Negative <18.0 Equivocal 18.0 - 21.9 Positive >21.9 EB-EA IgG 71588 49.1 U/mL (Abnormal) Range: 0.0-8.9 Comments: Hepatitis A, Hepatitis C and HIV antibodies may cross-reactwith this assay. Negative < 9.0 Equivocal 9.0 - 10.9 Positive >10.9 EB-VCA [id number] < 36.0 U/mL (Normal) Range: 0.0-35.9 Comments: Negative <36.0 Equivocal 36.0 - 43.9 Positive >43.9 28-Vlz-964917:37 Basic Metabolic Profile (BMP) Comments: [facility] [address] [place], [place], [address] GAP 8 (Normal) Range: 5-15 CO2 23.0 [...] A.D.A. criteria.Please note revised GLUCOSE reference range qdvjizfgo46/02/2018. 44-Bwn-518316:37 CBC W/Diff, Automated Comments: [facility] [address] [place], [place], [address] Absolute Lymph 2.00 {X10_3/ul} (Normal) Range: 0.83-4.51 [...] 4.2-5.4 WBC 8.8 K/mm3 (Normal) Range: 4.4-11.0 75-Cyt-778991:30 CBC With Differential/Platelet Comments: PERFORMED BY: LabCoHackettstown Medical CenterElwhwg0023 [facility] [id number] Information: [facility] PATIENT - NURSE Immature Grans [...] 3.77-5.28 WBC 6.8 {x10E3/uL} (Normal) Range: 3.4-10.8 60-Zon-055153:30 Comp. Metabolic Panel (14) Comments: PERFORMED BY: [facility] Cqracv0886 [facility] [id number]; can review at upcoming appt ALT (SGPT) [...] Glucose, Serum 98 mg/dL (Normal) Range: 65-99 :21 TSH (77415) Comments: PATIENT NOT FASTINGPERFORMED BY: [facility]6370 [facility] [id number] TSH 2.830 {uIU/mL} (Normal) Range: 0.450-4.500 :21 T3, FREE (TRIDOTHYRONINE) (66722) Comments: PATIENT NOT FASTINGPERFORMED BY: [facility]6370 [facility] [id number] Triiodothyronine,Free,Serum 2.6 pg/mL (Normal) Range: 2.0-4.4 :21 T4, FREE (THYROXINE) (51697) Comments: PATIENT NOT FASTINGPERFORMED BY: [address] [id number] T4,Free(Direct) 1.12 ng/dL (Normal) Range: 0.82-1.77 :32 CBC W/Diff, Automated Comments: [facility] [address] [place], [place], [address] Absolute Lymph 3.84 {X10_3/ul} (Normal) Range: 0.83-4.51 [...] Range: 4.4-11.0 :32 Comprehensive Metabolic Profil Comments: [facility] [address] [place], [address] ; non-emergent till next weeks apt GAP [...] (Normal) Range: 70-110 :32 Hemoglobin A1c Comments: [facility] [address] [place], [place], [address] HGB A1C 6.2 % (Normal) Range: 4.2-6.3 :32 Lipid Profile Comments: [facility] [address] [place], [place], [address] VLDL 19 mg/dL (Normal) Range: 5-40 LDL [...] High Risk :36 CBC W/Diff, Automated Comments: [facility] [address] [place], [place], [address] Absolute Lymph 2.01 {X10_3/ul} (Normal) Range: 0.83-4.51 [...] 4.2-5.4 WBC 8.0 K/mm3 (Normal) Range: 4.4-11.0 52-Djv-79565:36 Comprehensive Metabolic Profil Comments: [facility] [address] [place], [address] GAP 10 (Normal) Range: 5-15 CO2 25.0 [...] mg/dL (Normal) Range: 70-110 :36 CRP Comments: [address] [place], [address] C-REACTIVE PROT < 2.90 mg/L (Normal) Range: 0.0-3.0 Comments: C-Reactive Protein (CRP) provides useful information for thediagnosis, therapy and monitoring of inflammatory processesand associated diseases. For the evaluation of Relative Riskfor Cardiovascular Dise ase, a High Sensitivity CRP (HSCRP)should be ordered. :36 Culture, Urine Comments: [address] [place], [address] CUUR See Note (Normal) Comments: Urine CultureCOLONY COUNT 400 CFU/ML Below infection level. ORGANISM 1: GNR Poss Pseudomonas spColony Count <1000 :36 Erythrocyte Sed Rate Comments: [place] [address] [place], [address] SED RATE 5 mm/h (Normal) Range: 0-30 :36 Free T3 Comments: [place] [address] [place], [address] FREE T3 2.4 pg/mL (Normal) Range: 2.18-3.98 :36 Rheumatoid Factor Comments: [place] [address] [place], [address] RHEUMATOID FAC < 10.0 {IU/mL} (Normal) :36 T4 Free Direct Comments: [place] [address] [place], [address] T4 FREE DIRECT 1.09 ng/dL (Normal) Range: 0.76-1.46 :36 Thyroid Stim Hormone (TSH) Comments: [facility] [address] [place], [address] TSH 0.08 {uIU/mL} (Abnormal) Range: 0.358-3.74 :36 Uric Acid Comments: [facility] [address] [place], [address] URIC 3.6 mg/dL (Normal) Range: 2.6-6.0 Comments: The drugs N-Acetylcysteine and Metamizole may falsely deressthis assay. 57-Cik-30974:30 URINE ARELY CULTURE-SPRING COL Comments: PERFORMED BY: [facility] [facility]CoPractice Management e-Tools [facility] [id number] Information: SRC:UR COUNT (45282) Result 1 MUG (Normal) Comments: Mixed urogenital flora1,000 Colonies/mL Urine Culture,Comprehensive Final report (Normal) 61-Utt-767396:20 Urinalysis, Office (26279) UA - LEUKOCYTE ESTERASE Negative (Normal) UA - NITRITE Negative (Normal) URINE UROBILINGN SPRING TIMED Normal mg/dL (Normal) UA - PROTEIN Negative mg/dL (Normal) UA - PH 7 (Normal) UA - BLOOD Negative (Normal) UA - SPECIFIC GRAVITY 1.015 (Normal) UA - KETONES Negative mg/dL (Normal) UA - BILIRUBIN Negative (Normal) UA - GLUCOSE Negative (Normal) 7-Zrv-631251:52 ARELY CULTURE-OTHER (68660) Comments: PATIENT NOT FASTINGPERFORMED BY: [facility] [place] [facility] [id number] Information: THROAT SRC:TH Result 1 RRF (Normal) Comments: Routine respiratory kaylene Upper Respiratory Culture Final report (Normal) 5-Obm-907097:07 Rapid Strep Test, Office (01571) Rapid Strep Test, Negative (Normal) Office 35-Ypw-362824:2 Magnesium, Serum 2.0 mg/dL (Normal) Comments: PATIENT NOT FASTINGPERFORMED BY: [facility] Bdphec2157 [facility] [id number] Information: SRC:UC 1 Range: 1.6-2.3 12-Kvr-780395:21 Microscopic Examination Comments: PATIENT NOT FASTINGPERFORMED BY: [facility] Lbkrgk5349 [facility] [id number] BY: [address] [id number] Bacteria None seen (Normal) Epithelial Cells (non None seen {/hpf} Range: 0 - 10 renal) (Normal) RBC 0-2 {/hpf} Range: 0 - 2 (Normal) WBC 0-5 {/hpf} Range: 0 - 5 (Normal) Sodium, Urine <20 mmol/L Comments: PATIENT NOT FASTINGPERFORMED BY: [facility] Mwetkj5236 [facility] [id number] BY: [address] [id number] 4:21 (Normal) Written Authorization WAR (Normal) Comments: PATIENT NOT FASTINGPERFORMED BY: [facility] Verflx3859 [facility] [id number] 4:21 Comments: Written Authorization Received.Authorization received from YURIY VERNON LPN [id number] by Tg Stewart 38-Pqz-052695:21 URINE AERLY CULTURE-IDENTIFICATN Comments: PATIENT NOT FASTINGPERFORMED BY: [facility] Djziaz7613 [facility] [id number] BY: [address] [id number] (88733) Result 1 NG36 (Normal) Comments: No growth in 36 - 48 hours. Urine Culture,Comprehensive Final report (Normal) 88-Uyw-196994:21 URINALYSIS, W/ MICRO Comments: PATIENT NOT FASTINGPERFORMED BY: [facility] Fsmswr6073 [facility] [id number] BY: [address] [id number] Information: SRC: (11610) Microscopic Examination See below: (Normal) Comments: Microscopic was indicated and was performed. Microscopic Examination MICRON (Normal) Comments: Microscopic follows if indicated. Nitrite, Urine Negative (Normal) Urobilinogen,Semi-Qn 0.2 mg/dL (Normal) Range: 0.2-1.0 Bilirubin Negative (Normal) Occult Blood Negative (Normal) Ketones Negative (Normal) Glucose Negative (Normal) Protein Negative (Normal) WBC Esterase Negative (Normal) Appearance Clear (Normal) Urine-Color Yellow (Normal) pH 7.0 (Normal) Range: 5.0-7.5 Specific [place] 1.007 (Normal) Range: 1.005-1.030 59-Qpf-547054:21 OSMOLALITY URINE (76192) Comments: PATIENT NOT FASTINGPERFORMED BY: [address] [place] [address] [id number] BY: eBuddy[address] [id number] Osmolality, Urine 98 {mOsmol/kg} (Normal) Comments: 24 hr : 300 - 900 Random: 50 - 1400 After 12hr fluid restriction: >850 55-Hcy-294910:21 OSMOLALITY BLOOD (19391) Comments: PATIENT NOT FASTINGPERFORMED BY: PayM[employer] [id number] BY: bigclix.com[address] [id number] Osmolality 265 {mOsmol/kg} (Abnormal) Range: 275-295 80-Dpq-088221:21 SODIUM SERUM (35185) Comments: PATIENT NOT FASTINGPERFORMED BY: [employer] [id number] BY: eBuddy[address] [id number] Sodium, Serum 132 mmol/L (Abnormal) Range: 134-144 46-Xcx-318994:15 Comprehensive Metabolic Profil Comments: [facility] [address] [place], [place], [address] GAP 9 (Normal) Range: 5-15 CO2 25.0 [...] 7-18 GLU 86 mg/dL (Normal) Range: 70-110 19-Pmg-831944:15 Free T3 Comments: [address] [place], [address] FREE T3 2.3 pg/mL (Normal) Range: 2.18-3.98 10-Pes-676469:15 Phosphorus Comments: [address] [place], [place], [address] PHOS 2.9 mg/dL (Normal) Range: 2.5-4.9 61-Fve-139624:15 PTH,INTACT Comments: [address] [place], [address] PTH,Intact 35 pg/mL (Normal) Range: 14-72 29-Rsw-199672:15 T4 Free Direct Comments: [facility] [address] [place], [address] T4 FREE DIRECT 1.06 ng/dL (Normal) Range: 0.76-1.46 85-Krh-437890:15 Thyroid Stim Hormone (TSH) Comments: [facility] [address] [place], [address] TSH 5.47 {uIU/mL} (Abnormal) Range: 0.358-3.74 49-Zis-402544:15 Vitamin D,25 Hydroxy Comments: [facility] [address] [place], [address] Vitamin D 25-OH 38.0 ng/mL (Normal) Comments: Vitamin D 25(OH) Status Range Deficiency <20 ng/mL (50nmol/L) Insuffciency 20 - 30 ng/mL (50 - 75 nmol/L) Sufficiency 30 - 100 ng/mL (75 - 250 nmol/L) Toxicity >100 ng/mL (>250 nmol/L) 3-Iyf-558177:31 Comprehensive Metabolic Profil Comments: [facility] [address] [place], [address] GAP 11 (Normal) Range: 5-15 CO2 24.0 [...] GLU 96 mg/dL (Normal) Range: 70-110 :31 Free T3 Comments: [facility] Ptmw[address]zlv7696 [facility]. [place], [place], [address] FREE T3 2.3 pg/mL (Normal) Range: 2.18-3.98 :31 Hemoglobin A1c Comments: [facility] Nxsbkvyxkg3380 [facility]. [place], [place], [address] HGB A1C 5.7 % (Normal) Range: 4.2-6.3 :31 Lipid Profile Comments: [facility] Eayjbwgbhl[address] [facility] [place], [place], [address] VLDL 19 mg/dL (Normal) Range: 5-40 LDL [...] 200-240 mg/dL Borderline >240 mg/dL High Risk 9-Pbm-940602:31 Microalb:Creat Ratio,Random UR Comments: [facility] [address] [place], [address] MALB:CREAT 5.4 {mg/g_CRE} (Normal) MICROALBUMIN,UR 6.7 mg/L (Normal) UR CREAT 124.00 mg/dL (Normal) :31 T4 Free Direct Comments: [facility] [address] [place], [place], [address] T4 FREE DIRECT 0.70 ng/dL (Abnormal) Range: 0.76-1.46 8-Hoc-071738:31 Thyroid Stim Hormone (TSH) Comments: [facility] [address] [place], [place], [address] TSH 4.87 {uIU/mL} (Abnormal) Range: 0.358-3.74 8-Fly-966712:49 [facility] [employer] AB, Blocking Comments: [facility] (refer to report for specific site)refer to report for address and phone number [facility] REC 18640 19 % (Normal) Range: 0-25 Comments: Negative: 0 - 25 Borderline: 26 - 30 Positive: >30Results for this test are for research purposesonly by the assay's alberta rodriguez. The performancecharacteristics of this product have not beenestablished. Results should not be used as adiagnostic procedure without confirmation of thediagnosis by another medically establishe ddiagnostic product or procedure.Performed at: [address] [id number] Director: Eusebio Live MD, Phone: [phone] 3-Lcz-897007:49 Lyme Antibodies,W Blot Comments: [facility] (refer to [...] positivity are those recommended byCDC/ASTPHLD. p23=Osp C, w64=ogjrmvmmwVkgd:Sera from individuals with the following may cross [...] Ab Absent (Normal) P93 Ab Absent (Normal) 99-Aeq-34268:39 Acid Fast Bact Cult/Sm Comments: [facility] [address] [place], [place], [address] AFBCS See Note Comments: AFB Smear/Fluor TESTING PERFORMED AT [facility]. ORIGINAL REPORT ON FILE IN LAB CONTAINS ADDITIONAL TEST SITE INFORMATION. (Normal) Smear, Acid Fast NO ACID-FAST BACILLI OBSERVED ON SMEAR. AFB Cult TESTING PERFORMED AT [facility]. ORIGIN AL REPORT ON FILE IN LAB CONTAINS ADDITIONAL TEST SITE INFORMATION. Culture, Acid Fast NO ACID-FAST BACILLI ISOLATED AFTER 6 WEEKS. :39 Body Fluid Cell Count+Diff Comments: Specimen Source: [facility] [address] [place], [address] PATH COMM/BF May follow (Normal) BF PMN WBC# 0.001 {10_3/uL} (Normal) BF MN WBC# 0.000 {10_3/uL} (Normal) BF MN WBC% 0.0 % (Normal) BF PMN WBC% 100.0 % (Normal) WBC/BF 0.001 {10_3/uL} (Normal) BFTC# 0.001 {10_3/ul} (Abnormal) Range: 0.000-0.000 Comments: This is the Total Number of Nucleated Cell Types in the BodyFluid. :39 Cryptococcus Antigen CSF Comments: [facility] (refer to report for specific site)refer to report for address and phone number CRYP AG Negative (Normal) :39 Cytology, Body Fluid / CSF Comments: Specimen Source: [facility] [address] [place], [place], [address] CYTOLOGY,BF/CSF SEE PATHOLOGY REPORT Comments: Specimen submitted to Anatomical Pathology Department [facility]. (Normal) :39 CYTOSPIN ON FLUID See Note (Normal) Comments: [address] [place], [address] Comments: Patient: TITA LAW : 1960 (55/F) Acct Num: [id number] Phys: Pepper Barr NP Unit Num: [id number] Loc: RAD Specimen: [id number] Received: 03/15/16 - 1239 Spec Type: CYSPIN FL TISSUES TISSUES: CYTOLOGY GROSS Received is 3 ml of clear, colorless fluid labeled with the patient's name and and designated per the requisition as CSF. Submitted f or cytology preparation. 03/15/16 TC:4 CPT: 62096 CYTOLOGY STUDY Slides are reviewed. DIAGNOSIS CYTOLOGY Cerebrospinal fluid (cytospins): The specimen is acellular. SJ:tiffanie 7 HEADER OPERATION: Lumbar puncture PRE-OP DIAGNOSIS: Rule out MS TISSUE SUBMITTED: Cerebrospinal fluid Signed Christian Holt 03/16/16 <signature on file> :39 Glucose Spinal Fluid Comments: Comments: PROTEIN ELCTRO-CSF LC#[id number] [facility] Qkjqgtqpdb6520 [facility] [place], [address] GLU SPINAL FLD 57 mg/dL (Normal) Range: 40-75 31-Jyz-11938:39 Miscellaneous Lab Procedure Comments: Comments: PROTEIN ELCTRO- CSF LC#[id number](s) Ordered: PROTEIN ELCTRO-CSF LC#[id number] Dtbaddkzlm7781 [facility] [place], [place], [address] MISC Comments: TEST RESULT UNITS REFERENCE INTERVALProtein Electrophoresis, CSFProtein, Total, CSF 36.7 mg/dL 0.0 - 44.0Pre- Albumin (CSF) 2.6 % 2.2 - 7.1Albumin LAB (Normal) (CSF) 68.5 % 56.8 - 76.1Lspao-1-Mcmxadom CSF 3.9 % 1.1 - 6.4Ebhuk-3-Fkgwenfz CSF 4.6 % 3.0 - 12.6Beta Globulin (CSF) 15.0 % 7 TEST .3 - 17.9Gamma Globulin (CSF) 5.5 % 3.0 - 13.0Protein electrophoresis scan will follow via computer, mail,or orthotist or prosthetist delivery.M-Logan Not Observed % Not Observed__ TESTING PERFORMED AT [facility]. ORIGINAL REPORT ON FILE IN LAB CONTAINS ADDITIONAL TEST SITE INFORMATION. :39 Myelin Basic Protein, MBP Comments: [facility] (refer to report for specific site)refer to report for address and phone number MBP [id number] 1.8 ng/mL (Abnormal) Range: 0.0-1.2 Comments: Results for this test are for research purposes only by theassay's aviation technician aircraft. The performance characteristics ofthis product have not been established. Results should notbe used as a diagnostic pro cedure without confirmation ofthe diagnosis by another medically established diagnosticproduct or procedure. :39 Protein Spinal Fluid Comments: Comments: PROTEIN ELCTRO-CSF #[id number] Source? [facility] Lsktolgydg8487 [place], [place], [address] PROTEIN CSF 38.0 mg/dL (Normal) Range: 15.0-45.0 :04 IgG Index AND Synthesis Rate Comments: [facility] (refer to report for specific site)refer [...] using IsoelectricFocusing (IEF) and immunoblotting methodology.Performed at: [address] [id number] Director: Sean Daniel PhD, Phone: [phone] OLIG BAND REF LAB (Normal) :04 Protein Electroph, S Comments: [facility] (refer to report for specific site)refer to report for address and phone number NOTE: Comment (Normal) Comments: The SPE pattern appears essentially unremarkable. Evidenceof monoclonal protein is not apparent. INTERPRETATION Comment (Normal) Comments: Protein electrophoresis scan will follow via computer,mail, or orthotist or prosthetist delivery. A/G RATIO 1.4 (Normal) Range: 0.7-1.7 GLOBULIN, TOTAL 2.8 g/dL (Normal) Range: 2.2-3.9 M-SPIKE g/dL (Normal) Comments: Not Observed GAMMA GLOBULIN 0.9 g/dL (Normal) Range: 0.4-1.8 BETA GLOBULIN 0.9 g/dL (Normal) Range: 0.7-1.3 ALPHA-2 GLOBUL 0.7 g/dL (Normal) Range: 0.4-1.0 ALPHA-1 GLOBUL 0.2 g/dL (Normal) Range: 0.0-0.4 ALBUMIN 3.9 g/dL (Normal) Range: 2.9-4.4 PROTEIN,TOTAL 6.7 g/dL (Normal) Range: 6.0-8.5 4-Xzr-860389:15 CBC W/Diff, Automated Comments: DR VILLAFANA ORDERED CBCD/CMPDR FAST ORDERED BMP/FT3/FT4/TSHDR TRES ORDERED CBCD/CMPDR FAST ORDERED BMP/FT3/FT4/[facility]SHWK[facility] Drddidpyhc[address] [place], [address] Absolute Lymph 1.41 {X10_3/ul} (Normal) Range: 0.83-4.51 [...] 4.2-5.4 WBC 8.2 K/mm3 (Normal) Range: 4.4-11.0 7-Qrb-899557:15 Comprehensive Metabolic Profil Comments: DR VILLAFANA ORDERED CBCD/CMPDR FAST ORDERED BMP/FT3/FT4/TSHCleveland [facility] Hospital [address]topycgwrh[address] [place], [place], [address] GAP 9 (Normal) Range: 5-15 CO2 26.0 [...] 7-18 GLU 92 mg/dL (Normal) Range: 70-110 9-Kmr-781000:15 Free T3 Comments: DR VILLAFANA ORDERED CBCD/CMPDR FAST ORDERED BMP/FT3/FT4/TSHCleveland Clinic [facility] Hospital Wddetcrsmn[address] [place] [place], [address] FREE T3 2.2 pg/mL (Normal) Range: 2.18-3.98 7-Qrg-915864:15 T4 Free Direct Comments: DR VILLAFANA ORDERED CBCD/CMPDR FAST ORDERED BMP/FT3/FT4/[facility] Fycvqyabnr6[address] [place], [address] T4 FREE DIRECT 0.96 ng/dL (Normal) Range: 0.76-1.46 7-Ons-948323:15 Thyroid Stim Hormone (TSH) Comments: DR VILLAFANA ORDERED CBCD/CMPDR FAST ORDERED BMP/FT3/FT4/[facility] Kqgktbpugt56[address] [place], [address] TSH 0.13 {uIU/mL} (Abnormal) Range: 0.358-3.74 60-Bjo-484533:21 Metabolic Panel, Basic Comments: PATIENT NOT FASTINGPERFORMED BY: 265 Network70 ZENTICKETWashington [facility] Center [id number] (06675) Calcium, Serum 9.5 mg/dL (Normal) Range: 8.7-10.2 [...] Glucose, Serum 85 mg/dL (Normal) Range: 65-99 66-Dnx-748179:21 TSH (75997) Comments: PATIENT NOT FASTINGPERFORMED BY: D square nvWashington Regional Medical Center [id number] TSH 0.031 {uIU/mL} (Abnormal) Range: 0.450-4.500 :21 T3, FREE (TRIDOTHYRONINE) (77176) Comments: PATIENT NOT FASTINGPERFORMED BY: LabCoHackettstown Medical CenterQomzwa5393 [facility] [id number] Triiodothyronine,Free,Serum 3.3 pg/mL (Normal) Range: 2.0-4.4 :21 T4, FREE (THYROXINE) (20034) Comments: PATIENT NOT FASTINGPERFORMED BY: LabCoHackettstown Medical CenterRqqvsh1945 [facility] [id number] T4,Free(Direct) 1.52 ng/dL (Normal) Range: 0.82-1.77 :56 CBC W/Diff, Automated Comments: [facility] Ekxkhqeepf65[address] [place], [place], [address] Absolute Lymph 1.43 {X10_3/ul} (Normal) Range: 0.83-4.51 [...] Range: 4.4-11.0 :56 Comprehensive Metabolic Profil Comments: [facility] [address]ncwduszq[address] [place], [address] GAP 9 (Normal) Range: 5-15 CO2 26.0 [...] (Normal) Range: 70-110 :56 Hemoglobin A1c Comments: [facility] [address]vrxls[address] [place], [place], [address] HGB A1C 5.4 % (Normal) Range: 4.2-6.3 :56 Microalb:Creat Ratio,Random UR Comments: [facility] Zbtlfljevb76[address] [place], [place], [address] MALB:CREAT Test not performed {mg/g_CRE} (Normal) MICROALBUMIN,UR < 5.0 mg/L (Normal) UR CREAT 18.20 mg/dL (Normal) :56 NMR Lipoprofile Comments: [facility] (refer to report for specific site)refer to [...] the US Food and Drug Administration.Performed at: [address] [id number] Director: Eusebio Live MD, Phone: [phone] INS RES/DIAB RK . (Normal) LDL SIZE [...] mg/dL (Abnormal) Range: 100-199 LIPIDS . (Normal) 97-Oht-342174:26 Microscopic Examination Comments: PATIENT NOT FASTINGPERFORMED BY: Mumaxu Network[address] [facility] [id number] Bacteria Few (Normal) Epithelial Cells (non renal) 0-10 {/hpf} (Normal) Range: 0 - 10 RBC 0-2 {/hpf} (Normal) Range: 0 - 2 WBC 0-5 {/hpf} (Normal) Range: 0 - 5 :26 METABOLIC PANEL, COMPREHENSIVE Comments: PATIENT NOT FASTINGPERFORMED BY: Mumaxu Network6370 [facility]ado[facility] [id number] (09496) ALT (SGPT) 23 [iU]/L (Normal) Range: 0-32 [...] Glucose, Serum 84 mg/dL (Normal) Range: 65-99 52-Fwd-015263:26 URINE ARELY CULTURE-IDENTIFICATN Comments: PATIENT NOT FASTINGPERFORMED BY: PayMins Pzmsqs2222 [facility] [id number] (52614) Result 1 NG36 (Normal) Comments: No growth in 36 - 48 hours. Urine Culture,Comprehensive Final report (Normal) 67-Zrv-426594:26 CBC W/AUTO DIFF WBC Comments: PATIENT NOT FASTINGPERFORMED BY: [email or web address].comFour Corners Regional Health CenterXekust6757 [facility] [id number] Information: SRC:THAD (92453) Immature Grans (Abs) 0.0 {x10E3/uL} (Normal) Range: [...] 3.77-5.28 WBC 5.4 {x10E3/uL} (Normal) Range: 3.4-10.8 88-Uhb-084002:26 URINALYSIS, W/ MICRO (67314) Comments: PATIENT NOT FASTINGPERFORMED BY: [facility]6370 [facility] [id number] Microscopic Examination See below: (Normal) Comments: Microscopic was indicated and was performed. Microscopic Examination MICRON (Normal) Comments: Microscopic follows if indicated. Nitrite, Urine Negative (Normal) Urobilinogen,Semi-Qn 0.2 mg/dL (Normal) Range: 0.2-1.0 Bilirubin Negative (Normal) Occult Blood Negative (Normal) Ketones Negative (Normal) Glucose Negative (Normal) Protein Negative (Normal) WBC Esterase Negative (Normal) Appearance Clear (Normal) Urine-Color Yellow (Normal) pH 7.5 (Normal) Range: 5.0-7.5 Specific [place] 1.005 (Normal) Range: 1.005-1.030 :53 Partial Thromboplast Time Comments: [facility] [address]jbbbs[address] [place], [place], [address] PTT 34.1 s (Normal) Range: 24.1-36.2 :53 Prothrombin Time w/INR Comments: [facility] [address] [place], [place], [address] INR 1.1 (Normal) PROTIME 14.1 s (Normal) Range: 11.7-14.9 :43 CBC W/Diff, Automated Comments: [facility] [address]uaoagj[address] [place], [place], [address] Absolute Lymph 1.00 {X10_3/ul} (Normal) Range: 0.83-4.51 [...] 4.2-5.4 WBC 16.5 K/mm3 (Abnormal) Range: 4.4-11.0 78-Pwx-512578:43 Comprehensive Metabolic Profil Comments: [facility] [address]qcpjgewik[address] [place], [place], [address] GAP 11 (Normal) Range: 5-15 CO2 24.0 [...] 7-18 GLU 82 mg/dL (Normal) Range: 70-110 93-Aqm-334911:43 Lactic Acid Comments: [facility] [address] [place], [place], [address] LACTIC ACID 1.5 mmol/L (Normal) Range: 0.4-2.0 0-Tfr-533297:06 Metabolic Panel, Basic (43721) Comments: PATIENT NOT FASTINGPERFORMED BY: [facility] Jzksoq5287 [address]ado RoadDublin [place] [id number] Calcium, Serum 9.9 mg/dL (Normal) Range: 8.7-10.2 [...] Glucose, Serum 82 mg/dL (Normal) Range: 65-99 8-Exg-431394:06 PHOSPHORUS (22912) Comments: PATIENT NOT FASTINGPERFORMED BY: [facility] Cnopfh4588 Alvarado RoadDublin [place] [id number] Phosphorus, Serum 3.8 mg/dL (Normal) Range: 2.5-4.5 3-Kpa-731160:06 PARATHORMONE (84975) Comments: PATIENT NOT FASTINGPERFORMED BY: [facility] Vsqciv0864 Al[address]ado RoadDublin [place] [id number] PTH, Intact 30 pg/mL (Normal) Range: 15-65 5-Ecf-093323:06 SPEP (46057) Comments: PATIENT NOT FASTINGPERFORMED BY: [facility] Ucmbzx2381 Alvarado RoadDublin [place] [id number] Information: [id number] Please note: SPRCS (Normal) Comments: Protein electrophoresis scan will follow via computer, mail, orcourier delivery. A/G Ratio 1.4 (Normal) Range: 0.7-1.7 Globulin, Total 3.1 g/dL (Normal) Range: 2.2-3.9 M-Logan Not Observed g/dL (Normal) Gamma Globulin 1.1 g/dL (Normal) Range: 0.4-1.8 Beta Globulin 1.0 g/dL (Normal) Range: 0.7-1.3 Smxby-4-Gpnrgvsl 0.8 g/dL (Normal) Range: 0.4-1.0 Etjko-8-Qspkuftf 0.3 g/dL (Normal) Range: 0.0-0.4 Albumin 4.4 g/dL (Normal) Range: 2.9-4.4 Protein, Total, Serum 7.5 g/dL (Normal) Range: 6.0-8.5 :06 UPEP (18466) Comments: PATIENT NOT FASTINGPERFORMED BY: [employer] Gffenn4920 [facility] [id number] Please note: SPRCS (Normal) Comments: Protein electrophoresis scan will follow via computer, mail, orcourier delivery. M-Logan, % Not Observed % (Normal) Gamma Globulin, U 43.5 % (Normal) Beta Globulin, U 33.9 % (Normal) Aryvr-9-Ycjdxifi, U 9.6 % (Normal) Xxszz-6-Dxugcles, U 0.8 % (Normal) Albumin, U 12.1 % (Normal) Protein,Total,Urine <4.0 mg/dL (Normal) Comments: Verified by repeat analysis 9-Hdm-201850:23 URINE CALCIUM SPRING TIMED Comments: PATIENT NOT FASTINGPERFORMED BY: [email or web address] Vcqglq0329 [facility] [id number] Information: [id number] 24 Hour (05463) Calcium, Urine 24hr 133.5 {mg/24_hr} (Normal) Range: 100.0-300.0 Calcium, Urine 3.0 mg/dL (Normal) :08 METABOLIC PANEL, Comments: PATIENT NOT FASTINGPERFORMED BY: [email or web address].comHackettstown Medical CenterYfspfb0202 [facility] [id number] Information: [id number] COMPREHENSIVE (51498) ALT (SGPT) 15 [iU]/L (Normal) Range: 0-32 [...] mg/dL (Normal) Range: 65-99 :34 Urinalysis, Office (15040) UA - LEUKOCYTE ESTERASE Negative (Normal) UA [...] CULTURE (SPRING Comments: PATIENT NOT FASTINGPERFORMED BY: LabCoHackettstown Medical CenterHiiord5027 [facility] [id number] Information: SRC:[facility] [id number] COL COUNT) (26088) Result 1 NG36 (Normal) Comments: No growth in 36 - 48 hours. Urine Culture,Comprehensive Final report (Normal) 66-Zlb-683815:00 CBC W/Diff, Automated Comments: [facility] [address]isxysemd[address] [place], [place], [address] Absolute Lymph 1.49 {X10_3/ul} (Normal) Range: 0.83-4.51 [...] 4.2-5.4 WBC 6.2 K/mm3 (Normal) Range: 4.4-11.0 :00 Comprehensive Metabolic Profil Comments: [facility] [address]efwupe[address] [place], [place], [address] GAP 5 (Normal) Range: 5-15 CO2 28.0 [...] 7-18 GLU 93 mg/dL (Normal) Range: 70-110 77-Xvu-505086:00 Free T3 Comments: [facility] Ygsxladyzm4222 [facility]. [place], [place], [address] FREE T3 2.9 pg/mL (Normal) Range: 2.18-3.98 37-Ver-312544:00 T4 Free Direct Comments: [facility] [address]zkuvnwxye[address] [facility] [address] [place], [place], [address] T4 FREE DIRECT 1.07 ng/dL (Normal) Range: 0.76-1.46 91-Idq-019967:00 Thyroid Stim Hormone (TSH) Comments: [facility] [address] [place], [place], [address] TSH 0.16 {uIU/mL} (Abnormal) Range: 0.358-3.74 0-Kkx-065954:38 HGB A1C (97378) Comments: PATIENT NOT FASTINGPERFORMED BY: [facility]6370 [facility] [id number] Information: [id number] Hemoglobin A1c 5.7 % (Abnormal) Range: 4.8-5.6 Comments: . Pre-diabetes: 5.7 - 6.4 Diabetes: >6.4 Glycemic control for adults with diabetes: <7.0 David Yazmin BMP8 SPRCS (Normal) Comments: A courtesy copy of this report has been sent [facility].PATIENT WAS FASTINGPERFORMED BY: [place] [id number] [facility] [id number] :51 Default Comments: A hand-written panel/profile was received from your office. Inaccordance with the [email or web address] Ambiguous Test Code Policy dated August2002, we have completed your order by using the closest currentlyor formerl y recognized AMA panel. We have assigned Basic MetabolicPanel (8), Test Code #132378 to this request. If this is not thetesting you wished to receive on this specimen, please contact [email or web address] Client Inquiry/Technical Services Department to clarify thetest order. We appreciate your business. David Arce LP Default SPRCS (Normal) Comments: A courtesy copy of this report has been sent [facility].PATIENT WAS FASTINGPERFORMED BY: [facility]6370 [facility] [id number] :51 Comments: A hand-written panel/profile was received from your office. Inaccordance with the eBuddyDeSantoSolve Ambiguous Test Code Policy dated August2002, we have completed your order by using the closest currentlyor formerl y recognized AMA panel. We have assigned Lipid Panel,Test Code #004735 to this request. If this is not the testing youwished to receive on this specimen, please contact the Space[employer]ient Inquiry/Techni alberto Services Department to clarify the testorder. We appreciate your business. :51 CBC With Differential/Platelet Comments: A courtesy copy of this report has been sent [facility].PATIENT WAS FASTINGPERFORMED BY: [place] [id number] [facility] [id number] Immature Grans (Abs) 0.0 {x10E3/uL} (Normal) Range: [...] 3.77-5.28 WBC 4.8 {x10E3/uL} (Normal) Range: 3.4-10.8 20-Nes-456753:51 Comp. Metabolic Panel (14) Comments: A courtesy copy of this report has been [facility].PATIENT WAS FASTINGPERFORMED BY: [facility] Dgrmlj4371 [facility] [id number] ALT (SGPT) 14 [iU]/L (Normal) Range: 0-32 [...] Glucose, Serum 101 mg/dL (Abnormal) Range: 65-99 85-Vyi-942041:51 Lipid Panel Comments: A courtesy copy of this report has been sent [facility].PATIENT WAS FASTINGPERFORMED BY: Cocodrilo Dog [facility] [id number]; non-emergent till apt LDL Cholesterol Calc 120 [...] copy of this report has been sent [facility].PATIENT WAS FASTINGPERFORMED BY: Cocodrilo Dog [facility] [id number] 0:51 Range: 30.0-100.0 Comments: Vitamin D deficiency has been defined by the [place] of[place]icine and an Endocrine Society practice guideline as alevel of serum 25-OH vitamin D less than 20 ng/mL (1,2).The Endocrine Society went on to further define vitamin Dinsufficiency as a level between 21 and 29 ng/mL (2).1. IOM ([place] of Medicine). 2010. Dietary reference intakes for calcium and D. [place]: The National Academies Press.2. Mateusz MF, Mary HUNTER, Enma KENDALL, et al. Evaluation, treatment, and prevention of vitamin D deficiency: an Endocrine Society clinical practice guideline. JCEM. 2010; 96(7):1911-30. 75-Ece-698240:28 Sputum Culture (16666) Comments: PATIENT NOT FASTINGPERFORMED BY: [facility] Vlmfbe1254 [facility] [id number] Information: [id number] Result 1 STREPN (Abnormal) Comments: Streptococcus pneumoniaeHeavy [...] S Lower Respiratory Final report Culture (Abnormal) 40-Jzk-230009:49 Free T3 Comments: Has Patient had X-rays with Contrast this admission? NIs Patient on Heparin? [facility] Fruplcksyk9325 [facility] [place], [address] FREE T3 1.9 pg/mL (Abnormal) Range: 2.18-3.98 98-Cwo-176477:49 T4 Free Direct Comments: Has Patient had X-rays with Contrast this admission? NIs Patient on Heparin? [facility] Ofridezsou6121 [facility] [place], [address] T4 FREE DIRECT 0.84 ng/dL (Normal) Range: 0.76-1.46 24-Qnu-036475:49 Thyroid Stim Hormone (TSH) Comments: Has Patient had X-rays with Contrast this admission? NIs Patient on Heparin? [facility] Fwuazzefai0420 [facility] [place], [address] TSH 0.04 {uIU/mL} (Abnormal) Range: 0.358-3.74 52-Qgc-896926:43 CBC W/Diff, Automated Comments: Test performed at:[facility] [address] [place] [address] Absolute Lymph 2.39 {X10_3/ul} (Normal) Range: [...] 4.2-5.4 WBC 8.0 K/mm3 (Normal) Range: 4.4-11.0 10-Mpj-808752:43 Comprehensive Metabolic Profil Comments: Test performed at:[facility] Jjmibcleud[address] [place], [place] [address] GAP 7 (Normal) Range: 5-15 CO2 27.0 [...] 7-18 GLU 92 mg/dL (Normal) Range: 70-110 59-Dva-08062:34 Comprehensive Metabolic Profil Comments: ORDERED LIPID,CMPDR.SNEHA ORDERED TSH,HARLEEN,DHEATest performed at:[facility] Vnkezaxkxl0815 [place] [address] GAP 11 (Normal) Range: 5-15 CO2 25.0 [...] Comments: Please note revised CREATININE reference range yjrnlutfe39/22/2015. BUN 6 mg/dL (Abnormal) Range: 7-18 GLU 97 mg/dL (Normal) Range: 70-110 :34 DHEA Sulfate Comments: Has Patient had Radioactive Injection for X-ray?: NTest performed at:[facility] Ej[address] [place] [address] DHEA SULF 4020 26.8 ug/dL (Abnormal) Range: 41.2-243.7 Comments: Performed at: [facility]Co[address] [id number] Director: Sean Daniel PhD, Phone: [phone] 71-Lte-48504:34 Lipid Profile Comments: ORDERED LIPID,ANTONELLA ORDERED TSH,HARLEEN,DHEATest performed at:[facility] Fpqigmtcoc[address] [place] [address] VLDL 14 mg/dL (Normal) Range: 5-40 [...] :34 Testosterone, Serum Total Comments: Test performed at:[facility] Uq[address] [place] [address] Testosterone 20 ng/dL (Normal) Range: 14-76 :34 Thyroid Stim Hormone (TSH) Comments: ORDERED LIPID,ANTONELLA ORDERED TSH,HARLEEN,DHEATest performed at:[facility] Yqc[address]ohn[address] [place] [address] [place] [address] TSH < 0.01 {uIU/mL} (Abnormal) Range: 0.358-3.74 15-Wzg-158881:12 CBC W/Diff, Automated Comments: Test performed at:[facility] [address] [place] [address] Absolute Lymph 1.81 {X10_3/ul} (Normal) [...] 4.2-5.4 WBC 6.0 K/mm3 (Normal) Range: 4.4-11.0 77-Uci-331880:12 Comprehensive Metabolic Profil Comments: Test performed at:[facility] Bkdtkhqnnf3017 [facility] [place] [address] GAP 6 (Normal) Range: 5-15 CO2 29.0 [...] had Radioactive Injection for X-ray?: NTest performed at:[facility] Gwgmdowgas7390 [facility] [place] [address] DHEA SULF 4020 22.6 ug/dL (Abnormal) Range: 41.2-243.7 Comments: Performed at: - [facility] [address] [id number] Director: Omer Stout PhD, Phone: [phone] :36 Free T3 Comments: Has Patient had X-rays with Contrast this admission? ??NIs Patient on Heparin? ??NTest performed at:[facility] Bdpcfgevvj7324 [facility]. ??[place], [place] ??[address] FREE T3 4.7 pg/mL (Abnormal) Range: 2.18-3.98 :36 T4 Free Direct Comments: Has Patient had X-rays with Contrast this admission? NIs Patient on Heparin? NTest performed at:[facility] [address]yneysocxi[address] [place] [address] T4 FREE DIRECT 1.54 ng/dL (Abnormal) Range: 0.76-1.46 :36 Thyroid Stim Hormone (TSH) Comments: Has Patient had X-rays with Contrast this admission? NIs Patient on Heparin? NTest performed at:[facility] [address] [place] [address] TSH < 0.01 {uIU/mL} (Abnormal) Range: 0.358-3.74 :36 Vitamin D,25 Hydroxy Comments: Test performed at:[facility] [address] [place] [address] Vitamin D 25-OH 34.0 ng/mL (Normal) Comments: Vitamin D 25(OH) Status Range Deficiency <20 ng/mL (50nmol/L) Insuffciency 20 - 30 ng/mL (50 - 75 nmol/L) Sufficiency 30 - 100 ng/mL (75 - 250 nmol/L) Toxicity >100 ng/mL (>250 nmol/L) :02 CBC W/Diff, Automated Comments: Test performed at:[facility] [address] [place] [address] ; non- emergent till apt Absolute [...] 4.2-5.4 WBC 6.0 K/mm3 (Normal) Range: 4.4-11.0 79-Chx-38844:02 Comprehensive Metabolic Profil Comments: Test performed at:[facility] [address]cxprf[address] [place] [address] GAP 7 (Normal) Range: 5-15 CO2 28.0 [...] 70-110 :02 Lipid Profile Comments: Test performed at:[facility] Fq[address]wbczrom3762 [place] [address] VLDL 14 mg/dL (Normal) Range: [...] 200-240 mg/dL Borderline >240 mg/dL High Risk 59-Zin-163586:09 CBC W/Diff, Automated Comments: Test performed at:[facility] Qipklzcpbg8721 [place] [address] ; handled by kerri Absolute [...] 4.2-5.4 WBC 8.0 K/mm3 (Normal) Range: 4.4-11.0 93-Htw-885692:09 Comprehensive Metabolic Profil Comments: Test performed at:[facility] Ttjiiwsxul[address] [place], [place] [address] ; [facility] GAP 6 (Normal) Range: 5-15 CO2 28.0 [...] 7-18 GLU 98 mg/dL (Normal) Range: 70-110 :19 LIPID Comments: DR BROWN ORDERED LIPID CMPDR [...] CHOL 168 mg/dL (Normal) Comments: <200 mg/dL Dymbaesbv614-281 mg/dL Borderline>240 mg/dL High Risk 23-Gdt-387303:51 CBCD ALC 2.36 {X10_3/ul} (Normal) Range: 0.83-4.51 [...] 4.2-5.4 WBC 8.0 K/mm3 (Normal) Range: 4.4-11.0 91-Fio-213064:51 CMP Comments: DR VILLAFANA ORDERED CBCD CMP [...] 7-18 GLU 89 mg/dL (Normal) Range: 70-110 58-Bkr-376595:51 CORTU Comments: Has Patient had Radioactive Injection for X-ray?: N tCORTU 9 ug/L (Normal) bCAXBK84 39 {ug/24_hr} (Normal) Range: 0-50 09-Vdc-888929:51 DHEA 19.8 ug/dL (Abnormal) Comments: Has Patient had Radioactive Injection for X-ray?: N Range: 41.2-243.7 Comments: Performed at: [facility] [id number] Director: Eusebio Live MD, Phone: [phone] at: [facility] [place]Co[place] [id number] Director: Omer Stout PhD, Phone: [phone] 06-Bng-126260:51 FT3 2.2 pg/mL (Normal) Comments: DR VILLAFANA ORDERED CBCD CMP ONLYHas Patient had X-rays with Contrast this admission? N Range: 2.18-3.98 06-Wyv-689574:51 METAU Comments: Has Patient had Radioactive Injection for X-ray?: N tMETA 40 ug/L (Normal) tMETA24 172 {ug/24_hr} (Normal) Range: 45-290 Comments: (Hypertensive) >17 years 11 months: 35 - 460 tNORM24 292 {ug/24_hr} (Normal) Range: 82-500 Comments: (Hypertensive) >17 years 11 months: 110 - 1050 tNORM 68 ug/L (Normal) 10-Ouc-317634:51 T4F 0.98 ng/dL (Normal) Comments: DR VILLAFANA ORDERED CBCD CMP ONLYHas Patient had X-rays with Contrast this admission? N Range: 0.76-1.46 72-Bon-420921:51 TSH 0.66 {uIU/mL} (Normal) Comments: DR VILLAFANA ORDERED CBCD CMP ONLYHas Patient had X-rays with Contrast this admission? N Range: 0.358-3.74 45-Hlj-429846:51 VITD 51.8 mg/mL (Normal) Comments: Vitamin D 25(OH) Status RangeDeficiency <20 ng/mL (50nmol/L)Insuffciency 20 - 30 ng/mL (50 - 75 nmol/L)Sufficiency 30 - 100 ng/mL (75 - 250 nmol/L)Toxicity >100 ng/mL (>250 nmol/L) 8-Dyr-385855:01 URINE ARELY CULTURE-SPRING COL Comments: PATIENT NOT FASTINGPERFORMED BY: [facility] Wcutyj3734 [facility] [id number] Information: SRC:UR L36401 COUNT (09578) Result 1 NG36 (Normal) Comments: No growth in 36 - 48 hours. Urine Culture,Comprehensive Final report (Normal) 8-Ynn-196517:44 Urinalysis, Office (77161) UA - LEUKOCYTE ESTERASE Negative (Normal) UA - NITRITE Negative (Normal) URINE UROBILINGN SPRING TIMED Normal mg/dL (Normal) UA - PROTEIN Negative mg/dL (Normal) UA - PH 8.5 (Normal) UA - BLOOD Negative (Normal) UA - SPECIFIC GRAVITY 1.015 (Normal) UA - KETONES Negative mg/dL (Normal) UA - BILIRUBIN Negative (Normal) UA - GLUCOSE Negative (Normal) 27-Aug-20139:00 CMP Comments: LIPID CMP CMP TSH T4F T3F VITD DHEA GAP [...] X-ray?: N Range: 41.2-243.7 Comments: Performed at: [facility] [id number] Director: Sterling Porter MD, Phone: [phone] :[phone] FT3 2.4 pg/mL (Normal) Comments: LIPID CMP CMP TSH T4F T3F VITD DHEA Range: 2.18-3.98 :00 LIPID Comments: LIPID PUMA.SELVIN CMP TSH T4F T3F VITD DHEA VLDL [...] CHOL 235 mg/dL (Abnormal) Comments: <200 mg/dL Oyzrhmdjb776-983 mg/dL Borderline>240 mg/dL High Risk :00 T4F 0.98 ng/dL (Normal) Comments: LIPID CMPDR.SELVIN CMP TSH T4F T3F VITD DHEA Range: 0.76-1.46 :00 TSH 0.16 {uIU/mL} (Abnormal) Comments: LIPID DELDRESTHER CMP TSH T4F T3F VITD DHEA Range: 0.358-3.74 :00 VITD 56.0 mg/mL (Normal) Comments: Vitamin D 25(OH) Status RangeDeficiency <20 ng/mL (50nmol/L)Insuffciency 20 - 30 ng/mL (50 - 75 nmol/L)Sufficiency 30 - 100 ng/mL (75 - 250 nmol/L)Toxicity >100 ng/mL (>250 nmol/L) :54 OS 273 {mOsm/KG} (Abnormal) Range: 275-295 :54 [facility] 268 {mOsm/KG} (Normal) Comments: OSMOLALITY URINE REFERENCE KPQMYZVJE68-cahp Urine 300 - 900 mOsm/kgRandom Urine 50 - 1400 mOsm/kgAfter 12 Hr fluid restriction >850 mOsm/kg 51-Aus-210589:31 24HULYT Comments: ST 07/25/13 1130AM CREATININE AND SODIUM ONLYST 1130AM uCL24 63 {mmol/24h} (Abnormal) Range: 110-250 CLU 14 mmol/L (Normal) KU 15.5 mmol/L (Normal) uK24 70.1 {mmol/24h} (Normal) Range: 25-125 uNA24 72 {mmol/24h} (Normal) Range: 40-220 EMELI 16 mmol/L (Normal) uLYTV 4525 mL (Normal) 62-Udn-286887:31 UCRE Comments: ST 07/25/13 1130AM CREATININE AND SODIUM ONLYST 1130AM UCCT 24.0 {HOURS} (Normal) UCRE24 1.2 {g/24_hr} (Normal) Range: 0.6-1.5 UCTV 4.53 L (Normal) URCREAT 26.8 mg/dL (Normal) 23-Jrw-685740:30 CAU Comments: ST 07/25/13 1130AMST 07/25/131130AMComments: pr2466 24 hr sodium urine tCAU24 90.0 {mg/24_hr} (Normal) Range: 100.0-300.0 Comments: Reference Jacud394.0 - 300.0Total volumne: 4525 ml/24hrPerformed at: [facility]Co[address] [id number] Director: Sterling Porter MD, Phone: [phone] CAUR 2.1 mg/dL (Normal) 79-Ujl-595591:18 CBCD ALC 2.09 {X10_3/ul} (Normal) Range: 0.83-4.51 [...] 4.2-5.4 WBC 7.0 K/mm3 (Normal) Range: 4.4-11.0 69-Dpo-027210:18 CMP Comments: Comments: gn4749 24 hr sodium urine GAP 8 (Normal) [...] 7-18 GLU 86 mg/dL (Normal) Range: 70-110 08-Bdg-977303:33 BMP CO2 29.0 mmol/L (Normal) Range: 21.0-32.0 [...] N Range: 41.2-243.7 Comments: Performed at: - LabCo[address] [id number] Director: Sterling Porter MD, Phone: [phone] :[phone] T4F 1.03 ng/dL (Normal) Range: 0.76-1.46 :31 TSH 0.10 {uIU/mL} (Abnormal) Range: 0.358-3.74 :31 VITD 39.9 mg/mL (Normal) Comments: Vitamin D 25(OH) Status RangeDeficiency <20 ng/mL (50nmol/L)Insuffciency 20 - 30 ng/mL (50 - 75 nmol/L)Sufficiency 30 - 100 ng/mL (75 - 250 nmol/L)Toxicity >100 ng/mL (>250 nmol/L) :17 CMP Comments: DR BROWN ORDERED CMP LIPIDDR ARMSTRONG ORDERED TSH T3F T4F BMP GAP 7 [...] CHOL 176 mg/dL (Normal) Comments: <200 mg/dL Ziiyeyscx352-932 mg/dL Borderline>240 mg/dL High Risk :17 T4F 1.08 ng/dL (Normal) Comments: DR BROWN ORDERED CMP LIPIDDR WIETECHA ORDERED TSH T3F T4F BMP Range: 0.76-1.46 :17 TSH 0.49 {uIU/mL} (Normal) Comments: DR BROWN ORDERED CMP LIPIDDR WIETECHA ORDERED TSH T3F T4F BMP Range: 0.358-3.74 7-Jwm-228908:52 BREAST UNILATERAL Radiology See Note Comments: STUDY: [...] Galeana M.D.November 02, 2012 at 4:00:42 PM [id number] Signed GP/GP If you are the referring physician and would like to consult with theradiologist who provided this interpretation, please contact Luis Angel Quintana at [phone]. If this radiologist is un available, youwill be directed to another radiologist to assist. If you are a patient with a question regarding this report, pleasecontactyour referring physician directly. Professional Interpretation P rovided By: [employer], Phone , These documents contain legally protected [...] Galeana M.D.November 02, 2012 at 3:22:08 PM [id number] Signed GP/GP If you are the referring physician and would like to consult with theradiologist who provided this interpretation, please contact Luis Angel Quintana at [phone]. If this radiologist is unavailable, youwil l be directed to another radiologist to assist. If you are a patient with a question regarding this report, pleasecontactyour referring physician directly. Professional Interpretation Provided By: [employer], Phone , These documents contain legally protected [...] destructionofthese documents. Dictated on 11/02/12 1522 by Wendy IRVIN,Kimranscribed on 11/02/12 1536 by ITS IMPORTSign by Barrera Kennedy on 11/02/12 1537 Sign by: Barrera Galeana MD 67-Ink-53990:00 ABDOMEN/PELVIS WITHOUT CONT Radiology Report See Note [...] Galeana M.D.September 14, 2012 at 8:22:23 AM [id number] Signed GP/GP If you are the referring physician and would like to consult with theradiologist who provided this interpretation, please contact Luis Angel Quintana at [phone]. If this radiologist is unavailable, youwill be directed to another radiologist to assist. If you are a patient with a question regarding this report, pleasecontactyour referring niecy yang directly. Professional Interpretation Provided By: [employer], Phone , These documents contain legally protected [...] the return or destructionofthese documents. Dictated on 09/14/1222 by Aureliano Galeana MDranscribed on 09/14/12 0824 by ITS IMPORTSign by Barrera Galeana MD on 09/14/12 0825 Sign by: Barrera Galeana MD 28-Utg-282040:15 URINE ARELY CULTURE-IDENTIFICATN Comments: PATIENT NOT FASTINGPERFORMED BY: [facility] Aboonw7198 [facility] [id number] Information: ADD [id number] (60611) Result 1 NG36 (Normal) Comments: No growth in 36 - 48 hours. Urine Culture,Comprehensive Final report (Normal) 80-Vvn-550054:03 Urinalysis, Office (24371) UA - BILIRUBIN Negative (Normal) UA - BLOOD Non Hemolyzed Trace (Normal) UA - GLUCOSE Negative (Normal) UA - KETONES Negative mg/dL (Normal) UA - LEUKOCYTE ESTERASE Negative (Normal) UA - NITRITE Negative (Normal) UA - PH 7.0 (Normal) UA - PROTEIN Negative mg/dL (Normal) UA - SPECIFIC GRAVITY 1.010 (Normal) URINE UROBILINGN SPRING TIMED Normal mg/dL (Normal) :14 CBCMD ANC 3.2 3/uL (Normal) Range: 2.0-7.7 [...] 4.2-5.4 WBC 5.9 {k/mm3} (Normal) Range: 4.4-11.0 26-Qij-064338:14 CMP GAP 8 (Normal) Range: 5-15 CO2 [...] CHOL 206 mg/dL (Abnormal) Comments: <200 mg/dL Bajevxzyh884-491 mg/dL Borderline>240 mg/dL High Risk :14 T4F 1.17 ng/dL (Normal) Range: 0.76-1.46 :14 TSH 0.02 {uIU/mL} (Abnormal) Range: 0.358-3.74 :14 VITD 39.9 ng/mL (Normal) Comments: Vitamin D 25(OH) Status RangeDeficiency <20 ng/mL (50nmol/L)Insufficiency 20 - 30 ng/mL (50 - 75 nmol/L)Sufficiency 30 - 100 ng/mL (75 - 250 nm ol/L)Toxicity >100 ng/mL (250 nmol/L)Effective 201222-Jun-201268-Uev-299594:23 MINOR DENNIS DIGITAL & CAD Radiology Report See Note [...] Galeana M.D.June 22, 2012 at 2:15:23 PM [id number] Signed GP/GP If you a re the referring physician and would like to consult with theradiologist who provided this interpretation, please contact Luis Angel Quintana at [phone]. If this radiologist is unavailable, you will [...] documents. Dictated on 06/22/12 1323 by Wendy IRVIN,AcrieleTranscribed on 06/22/12 1417 by ITS IMPORTSign by Silvia hurst MD,Barrera on 06/22/12 1418 Sign by: Wendy IRVIN,Barrera 22-Jun-2012 glu gtt4 66 mg/dL Comments: 4HR GTT GLU 4 HR GLU GTT-4 HOUR from 0426:G33638Z. 11:43 (Abnormal) Range: 70-110 22-Jun-2012 glu gtt3 36 mg/dL Comments: 4HR GTT GLU 3 HR GLU GTT-3 HOUR from 0426:R28342S. 10:50 (Abnormal) Range: 70-110 Comments: CRITICAL VALUE REPEATED AND VERIFIED. CALLED TO ANUEL BENTLEY06/22/12 MARGY SYKES.RESULTS READ BACK BY SAME . 22-Jun-2012 glu gtt2 84 mg/dL (Normal) Comments: 4HR GTT GLU 2 HR GLU GTT-2 HOUR from 0426:[id number]. 9:50 Range: 70-120 22-Jun-2012 glu gtt1 118 mg/dL Comments: 4HR GTT GLU 1 HR GLU GTT-1 HOUR from 0426:X37972N. 8:50 (Abnormal) Range: 120-170 22-Jun-2012 glu gtt.5 140 mg/dL Comments: 4HR GTT GLU 1/2 HR GLU GTT-30 min. from 0426:J67758S. 8:20 (Normal) Range: 110-170 63-Ywn-58493:40 BGM Comments: 4HR GTT FASTING GLU GTT-FASTING from 0426:J73331Z. glu gttf 94 mg/dL (Normal) Range: 70-110 Comments: GLUCOSE TOLERANCE TEST Reference IntervalNon- AdultsFasting 70 - 23054 minutes 110 - 1701 hour 120 - 1702 hour 70 - 1203 hour 70 - 1104 hour 70 - 1105 hour 70 - 110 BGM 97 mg/dL (Normal) Range: 70-110 Comments: MANAGEMENT OF PATIENT CARE PER NURSING PROTOCOLNo Action Required0 84-Xsd-25325:40 CBCD Comments: DR DAILY ORDERED ZLI2SVGA TRES ORDERED CMP CBCD ANC 2.2 3/uL (Normal) [...] 4.4-11.0 :40 CMP Comments: DR DAILY ORDERED PWB1WDNW TRES ORDERED CMP CBCD GAP 8 (Normal) [...] 70-110 :40 GTT4 Comments: DR DAILY ORDERED DUG4HZMTDR VILLAFANA ORDERED CMP CBCD :31 CBC WITH MANUAL DIFF Comments: PATIENT NOT FASTINGPERFORMED BY: [facility]CoH[facility] CenterTthfjm2815 [facility] [id number] Information: [id number],G80056 (62252) Immature Grans (Abs) 0.0 {x10E3/uL} (Normal) Range: [...] 9.0 {x10E3/uL} (Normal) Range: 4.0-10.5 :31 TSH (93703) Comments: PATIENT NOT FASTINGPERFORMED BY: PayMinsHackettstown Medical CenterSztynu4562 [facility] [id number] TSH 6.430 {uIU/mL} (Abnormal) Range: 0.450-4.500 :31 EBV Panel (54837) Comments: PATIENT NOT FASTINGPERFORMED BY: [employer] Mgljls4241 [facility] [id number] Interpretation: SPRCS (Normal) Comments: EBV Interpretation Chart [...] 5:28 (Abnormal) Comments: Results confirmed ondilution.Performed at: [address] [id number] Director: Omer Stout PhD, Phone: [phone] TSH 0.90 {uIU/mL} Range: 0.358-3.74 5:28 (Normal) 8-Tde-853585:59 Urinalysis, Office (87133) UA - BILIRUBIN Negative (Normal) UA - BLOOD Hemolyzed Trace (Normal) UA - GLUCOSE Negative (Normal) UA - KETONES Negative mg/dL (Normal) UA - LEUKOCYTE ESTERASE Negative (Normal) UA - NITRITE Negative (Normal) UA - PH 7.0 (Normal) UA - PROTEIN Negative mg/dL (Normal) UA - SPECIFIC GRAVITY 1.010 (Normal) URINE UROBILINGN SPRING TIMED Normal mg/dL (Normal) 8-Vxp-935508:11 ARELY CULTURE-OTHER (54341) Comments: PATIENT NOT FASTINGPERFORMED BY: [address] [id number] Information: SRC:THRT [id number] Result 1 RRF (Normal) Comments: Routine respiratory kaylene Upper Respiratory Culture Final report (Normal) 1-Qqo-629209:58 Rapid Strep Test, Office (44756) Rapid Strep Test, Office Negative (Normal) 6-Eob-181253:47 Urinalysis, Office (82282) UA - BILIRUBIN Negative (Normal) UA - BLOOD Hemolyzed Trace (Normal) UA - GLUCOSE Negative (Normal) UA - KETONES Negative mg/dL (Normal) UA - LEUKOCYTE ESTERASE Negative (Normal) UA - NITRITE Negative (Normal) UA - PH 6.0 (Normal) UA - PROTEIN Negative mg/dL (Normal) UA - SPECIFIC GRAVITY 1.010 (Normal) URINE UROBILINGN SPRING TIMED Normal mg/dL (Normal) 3-Qmm-205172:11 URINE ARELY CULTURE (SPRING Comments: PATIENT NOT FASTINGPERFORMED BY: [facility] Nnolps2356 [facility] [id number] Information: SRC:UR [id number] COL COUNT) (52636) Result 1 MUG (Normal) Comments: Mixed urogenital [id number] Colonies/mL Urine Final report (Normal) Culture,Comprehensive 96-Fuq-367730:1 ISAIAS 8.59 ug/dL (Normal) Comments: COMMENTS: FAX [...] (Normal) Range: 70-110 Comments: RESULTS FAXED TO [phone] 01/13/12 0934 MARINE TOURE.RESULTS FAXED TO [phone] 01/13/12 0959 MARINE TOURE. :25 ISAIAS 13.11 ug/dL (Normal) Comments: COMMENTS: FAX RESULTS TO DR. KEVIN Holden IVT DRAW Range: 3.09-22.40 Comments: Adult (AM) 4.30 [...] Range: 0-34 Comments: Results confirmed ondilution.Performed at: [address] [id number] Director: Omer Stout PhD, Phone: [phone] :[phone] TSH 5.66 {uIU/mL} (Abnormal) Comments: COMMENTS: FAX RESULTS TO DR. KEVIN HARTMAN DRAW Range: 0.358-3.74 :15 CBCMD Comments: DR [...] Very High > or = 500 mg/dL 02-Jan-20129:15 TSH 33.50 {uIU/mL} (Abnormal) Comments: DR BROWN ORDERED LIPID,CMP,TSH,CBCMDDR TRES ORDRED CMP,CBCD Range: 0.358-3.74 1-Oxa-123434:46 MYOCARD PERF STRESS/REST MULT Radiology Report See [...] on 11/30/11 1446 by Zuleyma VALLE by Mazin IRVIN,Uzair on 12/05/11 5337 Sign by: Mazin IRVIN,Uzair 91-Vnm-003826:42 BRAIN W/WO CONTRAST Radiology Report See Note [...] Soto M.D.November 16, 2011 at 2:50:07 PM [id number] Signed LL/LL If you are the referring physician and would like to consult with theradiologist who provided this interpretation, please contact Shahla Weiss M.D. at [phone]. If this radiologist is unavailable, you willbe directed to another radiologist to assist. If you are a patient with a question regarding this report, pleasecontactyour referring physician fabiana fuentes. Professional Interpretation Provided By: [employer], Phone , These documents contain legally protected [...] destructionofthese documents. Dictated on 11/16/11 1250 by DARLENE IRVIN,AIDANATranscribed on 1456 by ITS IMPORTSign by SHAHLA SOTO MD on 11/16/11 1457 Sign by: SHAHLA SOTO MD 81-Ilv-531041:25 CHEST WITH CONTRAST Radiology Report See Note [...] Galeana M.D.November 14, 2011 at 3:11:11 PM [id number] Signed GP/GP If you are the referring physician and would like to consult with theradiologist who provided this interpretation, please contact Luis Angel Quintana at . If this radiologist is unavailable, youwill be directed to another radiologist to assist. If you are a patient with a question regarding this report, pleasecontactyour referring physician directly. Professional Interpretation Provided By: [employer], Phone , These documents contain legally protected [...] 11/15/11 1543 Sign by: Barrera Galeana MD 66-Bxs-863492:39 L/S SPINE,MIN 4 VIEWS Radiology Report See [...] Galeana M.D.November 14, 2011 at 3:46:06 PM [id number] Signed GP/GP If you are the referring physician and would like to co nsult with theradiologist who provided this interpretation, please contact Luis Angel Quintana at [phone]. If this radiologist is unavailable, youwill be directed to another radiologist to [facility]. If you are a patient with a question regarding this report, pleasecontactyour referring physician directly. Professional Interpretation Provided By: [employer], Phone ,Fax These documents contain legally protected [...] destructionofthese documents. Dictated on 11/14/11 1015 by Hilary Galeana MDribed on 11/15/11 1604 by ITS IMPORTSign by Barrera Galeana MD on 11/15/11 1605 Sign by: Barrera Galeana MD 52-Ntb-792231:38 CERV SPINE,MIN 4 VIEWS Radiology Report See [...] fusion at the C4, C5, and C5, K8ofjhczcizi prosthetic disk material. 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 Normal visualized intervertebral neuroforamina. Normal visuali zed soft tissue structures. IMPRESSION:Anterior fusion at the C4-C5 and C6- C7 levels. Signed:Barrera Galeana M.D.November 14, 2011 at 3:47:12 PM [id number] Signed GP/GP If you ar e the referring physician and would like to consult with theradiologist who provided this interpretation, please contact Luis Angel Quintana at [phone]. If this radiologist is unavailable, youw ill [...] destructionofthese documents. Dictated on 11/14/11 1006 by Marcel Galeana MDscribed on 11/14/11 1553 by ITS IMPORTSign by Barrera Galeana MD on 11/14/11 1554 Sign by: Barrera Galeana MD 14-Abj-653698:38 HIP, MIN 2 VIEWS Radiology Report See [...] Galeana M.D.November 14, 2011 at 3:48:20 PM [id number] Signed GP/GP If you are the referring physician and would like to consult with theradiologist who provided this interpre tation, please contact Luis Angel Quintana at [phone]. If this radiologist is unavailable, youwill be directed to another radiologist to assist. If you are a patient with a question regarding t his report, pleasecontactyour referring physician directly. Professional Interpretation Provided By: [employer], Phone , These documents contain legally protected [...] documents. Dicta kat on 11/14/11 1006 by Emerson Galeana MDeleTranscribed on 11/14/11 1555 by ITS IMPORTSign by Barrera Galeana MD on 11/14/111555 Sign by: Barrera Galeana MD 61-Fxl-73303:52 CBCMD RBCM NORM C+C {NORMAL} (Normal) PE [...] Embolism (PE)RESULTS CALLED TO YOVANNY BROWN;S 11/14/11 1111 ROSIE RENTERIA.REPORT READ BACK BY SAME . 11-Phh-30443:52 TSH 1.22 {uIU/mL} (Normal) Range: 0.358-3.74 :00 [...] Galeana M.D.November 14, 2011 at 3:48:08 PM [id number] Signed GP/GP If you are the referring physician and would like to consult with ld crowley who provided this interpretation, please contact Luis Angel Quintana at [phone]. If this radiologist is unavailable, youwill be directed to another radiologist to assist. If you are a patient with a question regarding this report, pleasecontactyour referring physician directly. Professional Interpretation Provided By: [employer], Phone , These document s contain legally [...] documents. Dictated on 11/14/11 1014 by Wendy IRVIN,Hilaryribed on 11/15/11 1607 by ITS IMPORTSign by Barrera Galeana MD on 11/15/11 1608 Sign by: Barrera Galeana MD 9-Iuy-192982:42 JACQUI Comments: DR BROWN ORDERED LIPID TSH CMPDR VELLANKI ORDERED CMP CBCD DNA JACQUI CHERIE SCL-70 SSA/SSBENA ANTICENTROMERE taANA 45 AU/mL (Normal) 4-Qfu-680773:42 ANEX Comments: DR BROWN ORDERED LIPID TSH CMPDR VELLANKI ORDERED CMP CBCD DNA JACQUI CHERIE SCL-70 SSA/SSBENA ANTICENTROMERE taANA COMMENT (Normal) Comments: TESTING INTERPRETATIONSPOSITIVE: > 120EQUIVOCAL: 100 - 120NEGATIVE: < 100 taRNP 29 AU/mL (Normal) taSM 32 AU/mL (Normal) 0-Tnj-199233:42 ANTIJO1 Comments: DR BROWN ORDERED LIPID TSH CMPDR VELLANKI ORDERED CMP CBCD DNA JACQUI CHERIE SCL-70 SSA/SSBENA ANTICENTROMERE taJO1 17 AU/mL (Normal) 8-Rgo-241941:42 CBCD ANC 3.9 3/uL (Normal) Range: 2.0-7.7 [...] 4.2-5.4 WBC 6.2 K/mm3 (Normal) Range: 4.4-11.0 4-Cjp-508514:42 CENTB Comments: DR BROWN ORDERED LIPID TSH CMPDR VELLANKI ORDERED CMP CBCD DNA JACQUI CHERIE SCL-70 SSA/SSBENA ANTICENTROMERE taCENTB 6 AU/mL (Normal) 9-Dww-432614:42 CMP Comments: DR BROWN ORDERED LIPID TSH [...] 7-18 GLU 94 mg/dL (Normal) Range: 70-110 2-Nhr-278426:42 DNAAB Comments: DR BROWN ORDERED LIPID TSH CMPDR VELLANKI ORDERED CMP CBCD DNA JACQUI CHERIE SCL-70 SSA/SSBENA ANTICENTROMERE tadsDNA 5 {IU/mL} (Normal) 7-Paa-015885:42 LIPID Comments: DR BROWN ORDERED LIPID TSH [...] 200-240 mg/dL Borderline >240 mg/dL High Risk 1-Nbf-186382:42 SCL70 Comments: DR BROWN ORDERED LIPID TSH CMPDR VELLANKI ORDERED CMP CBCD DNA JACQUI CHERIE SCL-70 SSA/SSBENA ANTICENTROMERE taSCL70 45 AU/mL (Normal) 9-Psi-008766:42 SSA Comments: DR BROWN ORDERED LIPID TSH CMPDR VELLANKI ORDERED CMP CBCD DNA JACQUI CHERIE SCL-70 SSA/SSBENA ANTICENTROMERE taSSA 31 AU/mL (Normal) 9-Miz-066680:42 SSB Comments: DR BROWN ORDERED LIPID TSH CMPDR VELLANKI ORDERED CMP CBCD DNA JACQUI CHERIE SCL-70 SSA/SSBENA ANTICENTROMERE taSSB 34 AU/mL (Normal) 1-Eqp-239300:42 TSH 11.70 {uIU/mL} (Abnormal) Comments: DR BROWN ORDERED LIPID TSH CMPDR VELLANKI ORDERED CMP CBCD DNA JACQUI CHERIE SCL-70 SSA/SSBENA ANTICENTROMERE Range: 0.358-3.74 94-Rzq-74413:36 ESOPHAGUS ONLY Radiology Report See Note (Normal) [...] Galeana M.D.September 13, 2011 at 9:19:02 AM [id number] ly Signed GP/GP If you are the referring physician and would like to consult with theradiologist who provided this interpretation, please contact Luis Angel Quintana at [phone]. If this radiolo gist is unavailable, youwill be directed to another radiologist to assist. If you are a patient with a question regarding this report, pleasecontactyour referring physician directly. Professional Interp retation Provided By: [employer], Phone , Dictated on 09/13/11 0834 by Wendy IRVIN,Kimranscribed on 09/13/11 0945 by ITS IMPORTSign by Wendy IRVIN,Barrera on 09/13/11 09 Sign by: Wendy IRVIN,Barrera 58-Xww-27471:47 CBCMD RBCM NORM C+C {NORMAL} (Normal) PE [...] :47 T4F 0.79 ng/dL (Normal) Range: 0.76-1.46 88-Hfz-12155:47 TSH 26.20 {uIU/mL} (Abnormal) Range: 0.358-3.74 5-Sky-075421:01 CHEST, PA AND LATERAL Radiology Report See [...] Signed GP/GP Professional Interpretation Provide d By: [facility], , To consult with a radiologist regarding this report, please call our [id number] line @ Dictated on 03/10 1331 by Kim Galeana MDranscribed on 06/28/11 1852 by ITS IMPORTSign by Barrera Galeana MD on 06/28/11 185 Sign by: Barrera Galeana MD 03-Dwb-13391:32 THYROID Radiology Report See Note (Normal) Comments: PROCEDURE: THYROID ULTRASOUND REASON FOR EXAM: Female, 50 years old. Nodule. TECHNIQUE: Ultrasound evaluation of the thyroid was performed withreal-time ultrasonography and static grayscale imagi ng. COMPARISON:. Cervical spine series, March 08, 2011. (No [...] EDTElectronically Signed DL/DL Professional Interpretation Provided By: [facility], , To consult with a radiologist regarding t his report, please call our [id number] line @ Dictated on 06/24/11 1013 by John Spencer MDTranscribed on 06/24/11 1655 by ITS IMPORTSign by John Spencer MD on 06/24/11 1656 Sign by: John Spencer MD 43-Edd-42458:30 BILAT SCRN DIGITAL & CAD Radiology Report [...] EDTElectronically Signed GP/GP Professional Interpretation Provided By: [facility], , To consult with a radiologist regarding this report, please call our [id number] line @ Dictated on 06/24/11 0945 by Kim Galeana MDranscribed on 06/24/11 1025 by ITS IMPORTSign by Barrera Galeana MD on 06/24/11 1026 Sign by: Barrera Galeana MD [id number]: CUT See Note (Normal) Comments: CULTURE OF TOUNG AND THROAT 11 Comments: 1+ YEAST ISOLATED No beta-hemolytic streptococcus isolated. [id number] CBCMD MACRO 1+ (Normal) RBCM N CHROM [...] 7-18 GLU 94 mg/dL (Normal) Range: 70-110 [id number] EBGM tEBINT Comment (Normal) Comments: EBV Interpretation Chart . Interpretation VCA-IgM EA-IgG VCA-IgG NA-ABS . Susceptible - - - - Acute Infection + +or- +or- - Convalescent Phase +or- +or- + + Chronic or Reactivated - + + +or- Old Infection - - +or- + + Antibody Pr esent - Antibody AbsentPerformed at: [facility] [id number] Director: Iraida Willingahm MD, Phone: [phone] EBNA > 8.0 {AI} (Abnormal) Range: 0.0-0.8 Comments: Negative <0.9 Equivocal 0.9 - 1.0 Positive >1.0 EBVG > 8.0 {AI} (Abnormal) Range: 0.0-0.8 Comments: Negative <0.9 Equivocal 0.9 - 1.0 Positive >1.0 EBEAG < 0.2 (Normal) Comments: Negative <0.9 Equivocal 0.9 - 1.0 Positive >1.0 EBVM < 0.2 {AI} (Normal) Range: 0.0-0.8 Comments: Negative <0.9 Equivocal 0.9 - 1.0 Positive >1.0 22-Qmr-813521:28 CHEST, PA AND LATERAL Radiology Report See [...] radiologist regarding this report, please call our 52V2bvalulb line @ Dictated on 06/07/11 1321 by Wendy IRVIN,EmersonAna Liliadeirdre bed on 06/07/11 1408 by ITS IMPORTSign by Wendy IRVIN,Barrera on 06/07/11 1409 Sign by: Wendy IRVIN,Barrera CUT See Note (Normal) Comments: #1- PRESUMPTIVE FRANK ALBICANSNo beta-hemolytic streptococcus isolated. AMOUNT GROWTH RARE ORGANISM 1: YEAST 4:09 H.PYLORI [id number] < 0.9 U/mL (Normal) Range: 0.0-0.8 1:47 Comments: Negative <0.9 Indeterminate 0.9 - 1.0 Positive >1.0Performed at: [facility] [id number] Director: Iraida Willingham MD, Phone: [phone] 2-Ioo-288684:34 CBCD,SMEAR DIFF MACROCYTE 1+ (Normal) RED CELL [...] 4.2-5.4 WBC 7.6 K/mm3 (Normal) Range: 4.4-11.0 7-Mie-521606:34 COMP METABOLIC GAP 8 (Normal) Range: 5-15 [...] 7-18 GLU 83 mg/dL (Normal) Range: 70-110 6-Sgs-705515:20 Urinalysis, Office (52793) UA - BILIRUBIN Negative (Normal) UA - [...] URINE CULTURE Culture exhibits no growth. (Normal) :07 CULTURE, THROAT See Note (Normal) Comments: AMOUNT [...] $ <=10 S VANCOMYCIN $ <=1 S 7-Hoo-542089:30 Rapid Strep Test, Office (02720) Rapid Strep Test, Office Negative (Normal) 65-Fuo-716227:52 SPINE,CERVICAL WITHOUT CONTRAS Radiology Report See Note [...] 07/21/10 010 Sign by: Barrera Galeana MD 54-Ojn-541187:22 CERV SPINE,MIN 4 VIEWS Radiology Report See Note (Normal) Comments: CLINICAL:Female, 49 years old. Neck pain. X-RAY EXAMINATION - CERVICAL SPINE TECHNIQUE:Five views of the cervical spine were obtained. COMPARISON:None FINDINGS:Normal craniovertebral junction. Normal anterior atlantoaxialarticulation. Normal odontoid process. There is straightening of the normal cervical lordosis. Normal vertebralbodies and posterior osseous elements. The transverse processes of A8zrurhivugyeh. There is multi-level degenerative disc space narrowing with endplatespondylosis. There is multi-level osseous foraminal stenosis at P6-Y3zzrP2-T3, bilateral. Normal visualized soft tiss ue structures. IMPRESSION:Multilevel degenerative disc disease with osseous foraminal stenosis.Prominent transverse processes of C7 may cause thoracic outlet syndrome.Straightening of the normal cervica l lordosis. Dictated on 07/13/10 1536 by MANJINDER HOLLIDAY MDOTranscribed on 07/14/10 1209 by ITS IMPORTSign by SWATI HOLLIDAY MD on 07/14/10 1210 Sign by: SWATI HOLLIDAY MD 85-Xlt-11039:00 CHEST, PA AND LATERAL Radiology Report See [...] thoracic spine. IMPRESSION:Old granulomatous disease. Dictated on 07/13/101535 by DAI [place] MDROBERTOTranscribed on 07/14/10 1304 by ITS IMPORTSign by SWATI HOLLIDAY MD on 07/14/10 1304 Sign by: SWATI HOLLIDAY MD 18-Doi-94686:35 BILAT SCRN DIGITAL & CAD Radiology Report [...] biopsy of a clinically suspiciousabnormality. Dictated on 06/22/10904 by MELISSA LEES MDTranscribed on 06/22/102350 by ITS IMPORTSign by MELISSA LEES MD on 06/22/102351 Sign by: MELISSA LEES MD 85-Tqd-01827:34 DEXA BONE DENSITY STUDY (HP) Radiology Report See Note (Normal) Comments: CLINICAL:Female, 49 years old. The patient is a postmenopausal. EXAMINATION:DUAL ENERGY X-RAY ABSORPTIOMETRY / DEXA. TECHNIQUE:Bone Mineral Density (BMD) measurements of lumbar spine and bi lateralhipsw ere obtained using a Scimetrika scanner.. COMPARISON:Comparison is made with prior study [...] [email or web address] Dictated on 06/22/10 0942 by Wendy IRVIN,Kimranscribed on 06/22/101444 by ITS IMPORTSign by Barrera Galeana MD on 06/22/101444 Sign by: Barrera Galeana MD 9-Qzd-093618:14 Rapid Strep Test, Office (42026) Rapid Strep Test, Office Negative (Normal) 04-Jun-20100:00 CULTURE, THROAT See Note (Normal) Comments: Normal throat kaylene isolated. No beta-hemolyticstreptococcus isolated. 01-Jun-20109:29 CBCD,SMEAR DIFF Comments: DR. BROWN ORDERED TSH [...] BROWN ORDERED TSH LIPID CMP VITD CBCMDDR. ANYEDSONKI CMP CBCD VITD CL 101 mmol/L (Normal) [...] CMP VITD CBCMDDR. NENITAKI CMP CBCD VITD HDL 65 mg/dL (Normal) [...] VITD CBCMDDR. TRES CMP CBCD VITD Range: 0.358-3.74 :29 VIT D,25 28020 53.4 ng/mL (Normal) Comments: DR. BROWN ORDERED TSH LIPID CMP VITD CBCMDDR. TRES CMP CBCD VITD Range: 32.0-100.0 Comments: Recent studies consider the lower limit of 32.0 ng/mL to ama threshold for optimal health.Fco GARCIA. J Nutr. 2004;135(2):317-22.Performed at: - [facility] [address] [id number] Director: Iraida Willingham MD, Phone: [phone] LQD PAP [id number] PAPSMR Comment (Normal) Comments: The Pap smear [...] HPV testing was performed. .Performed at: - [facility] [id number] Director: Nita Hernandez MD, Phone: [phone] COMM . (Normal) DIAGN Comment (Normal) Comments: NEGATIVE FOR INTRAEPITHELIAL LESION AND MALIGNANCY.CELLULAR CHANGES ASSOCIATED WITH ATROPHY ARE PRESENT.Satisfactory for evaluation.Kiran Gayle, Jet Man (ASCP) :41 BONE SCAN WHOLE BODY Radiology [...] Report See Note (Normal) Comments: Exam Number: [id number] LINICAL:This is a 49-year-old female patient with [...] Report See Note (Normal) Comments: Exam Number: [id number] LINICAL:This is a 49 year old female [...] as noted above. Reported By: BARRERA GALEANA 9-Zxu-770860:41 THYROID (HP) Radiology Report See Note (Normal) Comments: Exam Number: [id number] LINICAL:This is a 49-year-old female patient with [...] described. Reported By: BARRERA GALEANA : ANTI-CCP [id number] 2 {units} (Normal) Range: 0-19 41 Comments: Negative <20 Weak positive 20 - 39 Moderate positive 40 - 59 Strong positive >59Performed at: - [facility] [id number] Director: Eusebio Live MD, Phone: [phone] 63-Ahm-105039:53 JACQUI DIR SEMI-QL JACQUI DIRECT 77 AU/mL (Normal) 18-Tky-813087:13 ESR SED RATE 5 mm/h (Normal) Range: 0-20 41-Wqc-959589:05 RHEUMATOID FAC < 10.0 {IU/mL} (Normal) :05 C-REACTIVE PROT < 2.90 mg/L (Normal) Range: 0.0-3.0 Comments: C-Reactive Protein (CRP) provides useful information for thediagnosis, therapy and monitoring of inflammatory processesand associated diseases. For the evaluation of Relative Riskfor Cardiovascular Dise ase, a High Sensitivity CRP (HSCRP)should be ordered. : CPK TOTAL 49 U/L (Normal) Range: 21-215 [...] CHOL 166 mg/dL (Normal) Comments: <200 mg/dL Wmqeehhoy429-078 mg/dL Borderline>240 mg/dL High Risk TRIG 85 [...] T PROT 7.6 g/dL (Normal) Range: 6.4-8.2 82-Vwp-980562:13 TSH 0.49 {uIU/mL} (Normal) Range: 0.358-3.74 :13 VIT D,25 02741 63.3 ng/mL (Normal) Range: 32.0-100.0 Comments: Recent studies consider the lower limit of 32.0 ng/mL to ama threshold for optimal health.Fco GARCIA. J Nutr. 2004;135(2):317-22.Performed at: [place] [id number] Director: Iraida Willingham MD, Phone: [phone] 9-Wbk-889606:57 CHEST, PA AND LATERAL ([place]) Radiology Report See Note (Normal) Comments: Exam Number: [id number] X-RAY EXAMINATION: CHEST CLINICAL:This is a 49-year-old [...] CHOL 320 mg/dL (Abnormal) Comments: <200 mg/dL Jxzmrxdkv510-708 mg/dL Borderline>240 mg/dL High Risk TRIG 107 mg/dL (Normal) Comments: Serum Triglycerides Reference IntervalNormal <150 mg/dLBorderline high 150 - 199 mg/dLHigh 200 - 499 mg/ dLVery High > or = 500 mg/dL :14 T4 FREE DIRECT 0.70 ng/dL (Abnormal) Range: 0.76-1.46 :14 TSH 15.20 {uIU/mL} Range: 0.358-3.74 (Abnormal) :01 BILAT SCRN DIGITAL & CAD Radiology Report See Note (Normal) Comments: Exam Number: [id number] MAMMOGRAM, BILATERAL SCREENING DIGITAL AND CAD HISTORYRoutine [...] mammograms werealso examined with computer-aided detection software ([employer] Reported By: MELISSA LEES M.D. Plan of Care Name Dates Details Instructions Preoperative clearance : Eprescribed prescriptions (G8553) Indication: Preoperative clearance Acute bronchitis : Eprescribed prescriptions (G8553) Indication: Acute bronchitis Dysuria : Eprescribed prescriptions (G8553) Indication: Dysuria [...] Side Effects Indication: Other hyperlipidemia Planned Observations TSH (53698)Indication: Thyroid disorder On: 54-Euf-269231:16 Request T3, FREE (TRIDOTHYRONINE) (56168)Indication: Thyroid disorder On: 5-Dan-556316:35 Request T4, FREE (THYROXINE) (78749)Indication: Thyroid disorder On: 6-Twp-789293:35 Request TSH (53690)Indication: Thyroid disorder On: 5-Frw-797053:46 Request METABOLIC PANEL, COMPREHENSIVE (02624)Indication: Right flank pain On: 82-Rje-596348:21 Request Comments: stat CBC W/AUTO DIFF WBC (40504)Indication: Right flank pain On: 11-Gby-288363:21 Request Comments: stat CBC with auto diff (17136)Indication: Impaired fasting glucose On: 4-Pet-013603:53 Request METABOLIC PANEL, COMPREHENSIVE (82153)Indication: Impaired fasting glucose On: 8-Jxw-468261:53 Request HGB A1C (45155)Indication: Impaired fasting glucose On: :53 Request LIPID PANEL (03170)Indication: Other hyperlipidemia On: 2-Deu-340792:53 Request Vitamin D Hydroxy (71749)Indication: Vitamin D deficiency On: :10 Request LIPID PANEL (85695)Indication: Other hyperlipidemia On: 57-Fqi-666676:10 Request CBC with auto diff (08453)Indication: Impaired fasting glucose On: :08 Request METABOLIC PANEL, COMPREHENSIVE (45391)Indication: Impaired fasting glucose On: :08 Request C-REACTIVE PROTEIN (79328)Indication: Left-sided face pain On: 56-Cuf-549370:08 Request SED RATE ERYTHROCYTE (81697)Indication: Left-sided face pain On: 78-Xgz-443408:08 Request HGB A1C (36548)Indication: Impaired fasting glucose On: :08 Request CBC, PLATELETS & MANUAL DIFF (88140)Indication: Fatigue On: 13-Chn-755167:44 Request EBV Panel (42395)Indication: Fatigue On: 10-Xdo-951753:44 Request LIPID PANEL (08685)Indication: Other hyperlipidemia On: :00 Request CBC with auto diff (72785)Indication: Impaired fasting glucose On: 3-Ohz-240057:00 Request METABOLIC PANEL, COMPREHENSIVE (41864)Indication: Impaired fasting glucose On: 0-Sqc-838529:00 Request HGB A1C (44630)Indication: Impaired fasting glucose On: 9-Btj-664846:00 Request LIPID PANEL (68124)Indication: Other hyperlipidemia On: :37 Request TSH (THYROID STIMULATING HORMONE) (27208)Indication: Acquired hypothyroidism On: :37 Request CBC with auto diff (37407)Indication: Impaired fasting glucose On: :35 Request METABOLIC PANEL, COMPREHENSIVE (92907)Indication: Impaired fasting glucose On: :35 Request MICROALBUMIN: CREATININE RATIO (86923) AND (60917)Indication: Impaired fasting glucose On: :35 Request HGB A1C (38574)Indication: Impaired fasting glucose On: :35 Request CBC W/AUTO DIFF WBC (03660)Indication: Primary adrenocortical insufficiency On: 79-Dnd-069658:06 Request METABOLIC PANEL, COMPREHENSIVE (62134)Indication: Primary adrenocortical insufficiency On: 33-Ncx-850491:06 Request LIPID PANEL (57991)Indication: Other hyperlipidemia On: :26 Request CBC with auto diff (47683)Indication: Impaired fasting glucose On: :26 Request METABOLIC PANEL, COMPREHENSIVE (04704)Indication: Impaired fasting glucose On: 5-Rty-060774:26 Request HGB A1C (25998)Indication: Impaired fasting glucose On: 9-Uop-657469:26 Request TSH (28321)Indication: Acquired hypothyroidism On: 82-Ton-008113:59 Request Comments: 6 weeks RHEUMATOID FACTOR-QUANT (00153)Indication: Joint pain On: 41-Wnt-933274:02 Request C-REACTIVE PROTEIN (70100)Indication: Joint pain On: 38-Oqo-100111:02 Request SED RATE ERYTHROCYTE (62955)Indication: Joint pain On: 57-Hxa-787698:02 Request URIC ACID BLOOD (85466)Indication: Joint pain On: 99-Uqb-672522:02 Request T3, FREE (TRIDOTHYRONINE) (14172)Indication: Acquired hypothyroidism On: 12-Vbj-301292:58 Request T4, FREE (THYROXINE) (89204)Indication: Acquired hypothyroidism On: 83-Acy-687333:58 Request TSH (81756)Indication: Acquired hypothyroidism On: 82-Zqu-220469:58 Request CBC W/AUTO DIFF WBC (79509)Indication: Edema, unspecified type On: :48 Request METABOLIC PANEL, COMPREHENSIVE (91722)Indication: Edema, unspecified type On: 35-Oly-303025:48 Request SODIUM URINE (36055)Indication: Hyponatremia On: 51-Nbv-690170:30 Request Vitamin D Hydroxy (13837)Indication: Hypocalcemia On: : Request PARATHORMONE (36549)Indication: Hypocalcemia On: : Request PHOSPHORUS (10494)Indication: Hypocalcemia On: : Request METABOLIC PANEL, COMPREHENSIVE (58541)Indication: Hypocalcemia On: : Request T3, FREE (TRIDOTHYRONINE) (30760)Indication: Acquired hypothyroidism On: : Request T4, FREE (THYROXINE) (51261)Indication: Acquired hypothyroidism On: : Request TSH (23989)Indication: Acquired hypothyroidism On: : Request HGB A1C (16831)Indication: Impaired fasting glucose On: :17 Request MICROALBUMIN: CREATININE RATIO (79776) AND (75343)Indication: Impaired fasting glucose On: :17 Request METABOLIC PANEL, COMPREHENSIVE (73526)Indication: Impaired fasting glucose On: :17 Request T3, FREE (TRIDOTHYRONINE) (31467)Indication: Acute nonintractable headache, unspecified headache type On: :46 Request T4, FREE (THYROXINE) (84516)Indication: Acute nonintractable headache, unspecified headache type On: :46 Request TSH (78510)Indication: Acute nonintractable headache, unspecified headache type On: :46 Request TSH (54808)Indication: Acquired hypothyroidism On: :46 Request T4, FREE (THYROXINE) (21952)Indication: Acquired hypothyroidism On: :46 Request Metabolic Panel, Basic (58152)Indication: Hyponatremia On: :46 Request T3, FREE (TRIDOTHYRONINE) (46502)Indication: Acquired hypothyroidism On: 1-Vja-121821:46 Request MICROALBUMIN: CREATININE RATIO (23145) AND (59113)Indication: Impaired fasting glucose On: :55 Request LIPOPROTEIN, BLD, BY NMR (46560)Indication: Other hyperlipidemia On: 9-Iyj-484600:55 Request METABOLIC PANEL, COMPREHENSIVE (88265)Indication: Osteoporosis On: 9-Xgd-890217:52 Request Vitamin D Hydroxy (23648)Indication: Osteopenia On: : Request CBC W/AUTO DIFF WBC (78809)Indication: Gastroesophageal reflux disease without esophagitis On: 55-Dta-921429:03 Request METABOLIC PANEL, COMPREHENSIVE (08994)Indication: Other hyperlipidemia On: : Request LIPID PANEL (29451)Indication: Other hyperlipidemia On: :03 Request DHEA-S (DEHYDROEPIANDROSTERONE SULFATE) (59117)Indication: Adrenal disorder, other On: :29 Request VITAMIN D, 1, 25-DIHYDROXY (17117)Indication: Vitamin D deficiency On: :29 Request T4, TOTAL (58028)Indication: Acquired hypothyroidism On: :29 Request T3, TOTAL (TRIDOTHYRONINE) (92210)Indication: Acquired hypothyroidism On: :29 Request T3, FREE (TRIDOTHYRONINE) (20947)Indication: Acquired hypothyroidism On: :28 Request T4, FREE (THYROXINE) (27760)Indication: Acquired hypothyroidism On: :28 Request TSH (30087)Indication: Acquired hypothyroidism On: :28 Request T4, FREE (THYROXINE) (81000)Indication: Thyroid nodule On: :57 Request T3, FREE (TRIDOTHYRONINE) (12975)Indication: Thyroid nodule On: 0-Tuf-361197:57 Request TSH (17035)Indication: Thyroid nodule On: 4-Cvg-280967:57 Request T3, FREE (TRIDOTHYRONINE) (93884)Indication: Acquired hypothyroidism On: :39 Request Comments: forward to Dr Grimm Endocronologist, [place] T4, FREE (THYROXINE) (10678)Indication: Acquired hypothyroidism On: :39 Request Comments: forward to Dr Grimm Endocronologist, [place] TSH (50651)Indication: Acquired hypothyroidism On: :39 Request Comments: forward to Dr Grimm Endochumberto, [place] DHEA (DEHYDROEPIANDROSTERONE) (15787)Indication: Adrenal disorder, other On: :39 Request Comments: forward to Dr Grimm Endoccandiceologist, [place] CALCIFEDIOL (18095)Indication: Vitamin D deficiency On: :38 Request Comments: forward to Dr Grimm Endoccandiceologist, [facility] METABOLIC PANEL, COMPREHENSIVE (50293)Indication: Other hyperlipidemia On: 93-Fvc-422516:32 Request LIPID PANEL (87164)Indication: Other hyperlipidemia On: 27-Kge-004026:32 Request CBC W/AUTO DIFF WBC (91372)Indication: Macrocytosis without anemia On: 10-Shx-042368:53 Request METABOLIC PANEL, COMPREHENSIVE (04520)Indication: Other hyperlipidemia On: 71-Nro-381542:53 Request LIPID PANEL (00450)Indication: Other hyperlipidemia On: 50-Acc-583177:53 Request METABOLIC PANEL, COMPREHENSIVE (28592)Indication: Other hyperlipidemia On: 12-Wbt-070734:24 Request LIPID PANEL (18755)Indication: Other hyperlipidemia On: 53-Vxm-358172:24 Request CULTURE, SPUTUM (52112)Indication: Cough On: 45-Hfj-911754:14 Request METABOLIC PANEL, COMPREHENSIVE (11906)Indication: Other hyperlipidemia On: 8-Nyc-824194:02 Request LIPID PANEL (16406)Indication: Other hyperlipidemia On: 6-Tpd-278630:02 Request CBC WITH MANUAL DIFF (83044)Indication: Upper Respiratory Infection On: 9-Tsr-886451:11 Request METABOLIC PANEL, COMPREHENSIVE (14921)Indication: Upper Respiratory Infection On: 8-Ztk-043884:11 Request LIPID PANEL (03301)Indication: Other hyperlipidemia On: 1-Rtq-861348:11 Request LIPID PANEL (09704)Indication: Other hyperlipidemia On: 06-Vwj-470292:28 Request METABOLIC PANEL, COMPREHENSIVE (66750)Indication: Other hyperlipidemia On: 54-Oyz-351964:28 Request Vitamin D Hydroxy (67203)Indication: Osteopenia On: 56-Lpq-378351:16 Request CBC WITH MANUAL DIFF (41321)Indication: Fatigue On: 63-Ajr-787395:16 Request METABOLIC PANEL, COMPREHENSIVE (34196)Indication: Fatigue On: 68-Gcd-024731:16 Request T3, FREE (TRIDOTHYRONINE) (18845)Indication: Acquired hypothyroidism On: :16 Request T4, FREE (THYROXINE) (25097)Indication: Acquired hypothyroidism On: 58-Yeu-976171:16 Request TSH (08461)Indication: Acquired hypothyroidism On: :16 Request LIPID PANEL (49299)Indication: Other hyperlipidemia On: 29-Ipv-119597:15 Request T3, FREE (TRIDOTHYRONINE) (07628)Indication: Acquired hypothyroidism On: 21-Feb-2012 Request T4, FREE (THYROXINE) (92725)Indication: Acquired hypothyroidism On: 21-Feb-2012 Request TSH (87505)Indication: Acquired hypothyroidism On: 21-Feb-2012 Request Metabolic Panel, Basic (53778)Indication: Fatigue On: 00-Iep-029984:58 Request Anti-TPO Antibody (74152)Indication: Acquired hypothyroidism On: 26-Evb-690223:56 Request T3, FREE (TRIDOTHYRONINE) (02748)Indication: Acquired hypothyroidism On: 84-Hco-453001:56 Request T4, FREE (THYROXINE) (77277)Indication: Acquired hypothyroidism On: 60-Uiq-668992:56 Request TSH (27804)Indication: Acquired hypothyroidism On: 62-Waw-891502:49 Request VITAMIN B-12 (CYANOCOBALAMIN) (77319)Indication: Macrocytosis without anemia On: 93-Tyv-571190:49 Request TSH (90773)Indication: Palpitations On: :48 Request METABOLIC PANEL, COMPREHENSIVE (24333)Indication: Syncope On: :48 Request CBC WITH MANUAL DIFF (43457)Indication: Syncope On: :48 Request D-Dimer (65066)Indication: Syncope On: :48 Request Comments: stat CBC WITH MANUAL DIFF (69474)Indication: inflammatory arthritis- following with valenke On: 14-Xxo-467199:03 Request METABOLIC PANEL, COMPREHENSIVE (44062)Indication: inflammatory arthritis- following with valenke On: 90-Boc-576791:03 Request LIPID PANEL (55350)Indication: Other hyperlipidemia On: 24-Ket-513111:03 Request TSH (28152)Indication: Acquired hypothyroidism On: 18-Qqn-87329:56 Request TSH (81850)Indication: Acquired hypothyroidism On: 7-Ojv-252234:08 Request Comments: to be done in 8 weeks. METABOLIC PANEL, COMPREHENSIVE (05342)Indication: Dysphagia, unspecified dysphagia On: 97-Rap-247526:52 Request LIPID PANEL (65046)Indication: Other hyperlipidemia On: :52 Request TSH (79746)Indication: Acquired hypothyroidism On: 65-Dtz-346650:52 Request TSH (39552)Indication: Acquired hypothyroidism On: 52-Knx-477975:15 Request CULTURE, SPUTUM (92824)Indication: Cough On: 6-Yrc-387430:52 Request Throat Culture (31351)Indication: Unspecified bacterial pneumonia On: 21-Gai-004016:00 Request Comments: swab tounge per order from Dr. Brown ARELY CULTURE-OTHER (58615)Indication: Unspecified bacterial pneumonia On: 51-Asc-011928:43 Request EBV Panel (77827)Indication: Fatigue On: 75-Vdk-585739:41 Request METABOLIC PANEL, COMPREHENSIVE (80172)Indication: Fatigue On: 53-Kdu-624860:41 Request CBC WITH MANUAL DIFF (47343)Indication: Fatigue On: :41 Request ARELY CULTURE-OTHER (09726)Indication: Pharyngitis, acute On: 71-Ozh-495233:24 Request Rapid Strep Test, Office (44469)Indication: Pharyngitis, acute On: 24-Alt-053381:24 Request CBC WITH MANUAL DIFF (64982)Indication: Anxiety On: :13 Request METABOLIC PANEL, COMPREHENSIVE (83968)Indication: Other hyperlipidemia On: 72-Pgu-37880:13 Request T4, FREE (THYROXINE) (85385)Indication: Acquired hypothyroidism On: :12 Request T3, FREE (TRIDOTHYRONINE) (01934)Indication: Acquired hypothyroidism On: :12 Request TSH (55282)Indication: Acquired hypothyroidism On: :12 Request LIPID PANEL (62510)Indication: Other hyperlipidemia On: :11 Request URINE ARELY CULTURE-SPRING COL COUNT (24319)Indication: Urinary frequency On: :21 Request METABOLIC PANEL, COMPREHENSIVE (04220)Indication: Gastroesophageal reflux disease without esophagitis On: :19 Request CBC WITH MANUAL DIFF (66696)Indication: Gastroesophageal reflux disease without esophagitis On: :19 Request HELICOBACTER PYLORI ANTIBODY PROFILE IgG, IgM, IgA (24108)Indication: Gastroesophageal reflux disease without esophagitis On: :13 Request CBC WITH MANUAL DIFF (50471)Indication: Preoperative examination On: :42 Request METABOLIC PANEL, COMPREHENSIVE (58939)Indication: Preoperative examination On: :42 Request PTT (Activated Partial Thromboplastin Time) (73027)Indication: Preoperative examination On: :42 Request PT (Prothrobim Time) (51308)Indication: Preoperative examination On: :42 Request URINALYSIS, W/ MICRO (62284)Indication: Preoperative examination On: :41 Request TSH (72338)Indication: Acquired hypothyroidism On: :41 Request LIPID PANEL (43284)Indication: Other hyperlipidemia On: 65-Xzn-497184:41 Request ARELY CULTURE-OTHER (76488)Indication: Pharyngitis, acute On: 1-Zpo-675249:30 Request ARELY CULTURE-OTHER (52424)Indication: Pharyngitis, acute On: 7-Ayg-717914:14 Request Thin prep Pap (81182)Indication: Well woman exam On: :47 Request Thin prep Pap (65557)Indication: Well woman exam On: 7-Iev-568327:09 Request Vitamin D Hydroxy (39900)Indication: Osteopenia On: :24 Request CBC WITH MANUAL DIFF (35063)Indication: 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 On: :24 Request METABOLIC PANEL, COMPREHENSIVE (40790)Indication: 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 On: :24 Request LIPID PANEL (71324)Indication: Other hyperlipidemia On: :24 Request TSH (08003)Indication: Acquired hypothyroidism On: :23 Request Creatine Kinase Total (15744)Indication: Arthritis On: : Request METABOLIC PANEL, COMPREHENSIVE (62698)Indication: Arthritis On: : Request CCP ANTIBODY (79183)Indication: Arthritis On: : Request SED RATE ERYTHROCYTE (93257)Indication: Arthritis On: Request C-REACTIVE PROTEIN (47639)Indication: Arthritis On: Request JACQUI (ANTINUCLEAR ANTIBODY) (24668)Indication: Arthritis On: Request RHEUMATOID FACTOR-QUANT (31874)Indication: Arthritis On: : Request TSH (53208)Indication: Acquired hypothyroidism On: : Request HEPATIC FUNCTION PANEL (24499)Indication: Other hyperlipidemia On: : Request LIPID PANEL (39421)Indication: Other hyperlipidemia On: : Request Vitamin D Hydroxy (07316)Indication: Osteopenia On: :27 Request LIPID PANEL (55223)Indication: Other hyperlipidemia On: :22 Request HEPATIC FUNCTION PANEL (95427)Indication: Other hyperlipidemia On: 5-Aid-274078:21 Request URINE ARELY CULTURE (SPRING COL COUNT) (84862)Indication: Abnormal urine On: :19 Request TSH (64111)Indication: Acquired hypothyroidism On: :18 Request URINALYSIS, W/ MICRO (20897)Indication: Low back pain On: 60-Zzg-382472:50 Request T3, FREE (TRIDOTHYRONINE) (85271)Indication: Acquired hypothyroidism On: 09-Jac-702494:50 Request T4, FREE (THYROXINE) (12218)Indication: Acquired hypothyroidism On: :50 Request CBC WITH MANUAL DIFF ([id number])Indication: Low back pain On: :49 Request METABOLIC PANEL, COMPREHENSIVE ([id number])Indication: Family history of diabetes mellitus On: :49 Request LIPID PANEL ([id number])Indication: Other hyperlipidemia On: :47 Request TSH ([id number])Indication: Acquired hypothyroidism On: :47 Request Planned Procedures ELECTROCARDIOGRAM, COMPLETE (ECG) On: 20-Mar-2018 Intent ([id number])By: Fran Brown DOa A Fast DO, Martha A CT - Abdomen & Pelvis Stone On: 08-Jan-2018 Intent ProtocolBy: Kevin SAMUEL Martha A Fast DO, Comments: stat call wet read Martha A INJECTION, PROLIA ([id number])By: Kevin SAMUEL, On: 05-Dec-2017 Intent Martha Rita Fast DO, Martha A Comments: [id number] arm, SCprefilled syringeMLONG ELECTROCARDIOGRAM, COMPLETE (ECG) On: 05-Dec-2017 Intent ([id number])By: Kevin SAMUEL Martha Rita Fast DO, Comments: ekg showed normal sinus rhythym, normal axis, no acute st/t wave changes sinus ariana Martha A MRI OF BRAIN WITH AND WITHOUT On: 01-Nov-2017 Intent CONTRAST ([id number])By: Kevin SAMUEL Martha A Comments: dont schedule on or Kevin SAMUEL Martha Rita Flu Vaccine (Quadrivalent) 52540Rf: On: 01-Nov-2017 Intent Kevin SAMUEL Martha A Fast DO, Martha A Comments: Lot: #[id number]: 08/26/18Site: L dltd, IMDose prefilled syringegiven by: Kahlil reviewed and ABN signed Radiology - Forearm - RightBy: Fast On: 28-Jun-2017 Intent DO, Martha A Fast DO, Martha A DEXA SCAN AXIAL SKELETON ([id number])By: On: 28-Jun-2017 Intent Fast DO, Martha A Fast DO, Martha A Comments: august SCREENING DIGITAL TOMOSYNTHESIS OF On: 28-Jun-2017 Intent BREAST ([id number])By: Fran Brown DOa A Comments: august Fast DO, Martha A Radiology - Wrist - RightBy: Kevin SAMUEL, On: 28-Jun-2017 Intent Martha A Fast DO, Martha A Comments: fall with outstrestched hand CT - Brain/Head (Without Contrast)By: On: 28-Jun-2017 Intent Fast DO, Martha A Fast DO, Martha A Comments: stat- fall down steps now headache INJECTION, PROLIA ([id number])By: Fast DO, On: 18-May-2017 Intent Martha A Fast DO, Martha A Comments: prolia injection 1 prefilled syringelot: [id number]: 05/2019RA sub-qAD RESEARCH AGRICULTURAL ENGINEER CHEST XRAY, PA & LATERAL ([id number])By: On: 01-May-2017 Intent Fast DO, Martha A Fast DO, Martha A INFUSION, NORMAL SALINE SOLUTION , On: 21-Apr-2017 Intent 1000 CC (Special Coverage Comments: 2nd bag same lot same exp Instructions Apply. See MCM: 2048) ([id number])By: Fast DO, Martha A Fast DO, Martha A INFUSION, NORMAL SALINE SOLUTION , On: 21-Apr-2017 Intent 1000 CC (Special Coverage Comments: Site:[address] [place] [address] insyte Number of attemps:1Tolerated:wellLot/exp of NS [id number] 08/15Medication?: noMLONG, RESEARCH AGRICULTURAL ENGINEER Instructions Apply. See MCM: 2048) ([id number])By: Fast DO, Martha A Fast DO, Martha A CHEST XRAY, PA & LATERAL ([id number])By: On: 21-Apr-2017 Intent Fast DO, Martha A Fast DO, Martha A Comments: 3 weeks Ultrasound - ThyroidBy: Fast DO, On: 07-Mar-2017 Intent Martha A Fast DO, Martha A PNEUM VAC ADLT/IMUMNOSPR, SBC/INTRM On: 20-Dec-2016 Intent ([id number])By: Fast DO, Martha A Fast DO, Comments: pnuemovax prefilled syringe injectionlot: [id number]: 04/2018L DELT IMpt tolerated wellAD RESEARCH AGRICULTURAL ENGINEER Martha A Flu Vaccine (Quadrivalent) 04236Ad: On: 30-Nov-2016 Intent Fast DO, Martha A Fast DO, Martha A Comments: lot: [id number]: 08/14/18site/route: L michael, IMamt: 0.5mlVIS and ABN signed when applicableChelsea, BIN FILLER ELECTROCARDIOGRAM, COMPLETE (ECG) On: 29-Nov-2016 Intent ([id number])By: Fast DO, Martha A Fast DO, Comments: ekg showed normal sinus rhythym, normal axis, no acute st/t wave changes Martha A INJECTION, PROLIA ([id number])By: Kevin SAMUEL, On: 04-Nov-2016 Intent Martha A Fast DO, Martha A Comments: Lot:[id number]:08/14/17Dose:0.5mLRoute:IMSite:L DltdGiven By:ZACH signed Nuclear Stress Test/Stress On: 01-Sep-2016 Intent SPECT/TreadmillBy: Fast DO, Martha A Fast DO, Martha A Aerosol Treatment ([id number])By: Kevin SAMUEL, On: 08-Aug-2016 Intent Martha A Fast DO, Martha A SCREENING DIGITAL TOMOSYNTHESIS OF On: 08-Aug-2016 Intent BREAST ([id number])By: Kevin DO, Martha A Comments: end july Fast DO, Martha A Echo CompleteBy: Fast DO, Martha A On: 08-Aug-2016 Intent Fast DO, Martha A EEGBy: Fast DO, Martha A Fast DO, On: 18-Jul-2016 Intent Martha A Radiology - Cervical SpineBy: Fast On: 23-Jun-2016 Intent DO, Martha A Fast DO, Martha A Radiology - Chest- PA and LatBy: Fast On: 19-Jun-2016 Intent DO, Martha A Fast DO, Martha A CT - Abdomen (IV Contrast Needed)By: On: 24-May-2016 Intent Fast DO, Martha A Fast DO, Martha A Ultrasound - ThyroidBy: Fast DO, On: 24-May-2016 Intent Martha A Fast DO, Martha A Comments: end june Nuclear Medicine - HIDA w/CCKBy: Fast On: 16-May-2016 Intent DO, Martha A Fast DO, Martha A Ultrasound - LiverBy: Fast DO, Martha On: 09-May-2016 Intent A Fast DO, Martha A Comments: with gallbladder but most tenderness is left lobe of liver Ultrasound - ThyroidBy: Kevin DO, On: 09-Mar-2016 Intent Martha A Fast DO, Martha A INJECTION, PROLIA ([id number])By: Kevin SAMUEL, On: 26-Feb-2016 Intent Martha A Fast DO, Martha A Comments: Lot:[id number]:02/13Dose:60mLRoute:sub qSite: l armGiven By:ZACH signed MRI OF BRAIN WITH AND WITHOUT On: 08-Feb-2016 Intent CONTRAST ([id number])By: Fast DO, Martha A Comments: try to get this week- Kevin SAMUEL, Martha A Solu- Medrol Injection, 125mg On: 16-Dec-2015 Intent ([id number])By: Kevin SAMUEL Martha A Fast DO, Comments: Lot:[id number]:04/2018Dose:125mgRoute:imSite:r hipGiven By:ZACH signed Martha A Aerosol Treatment ([id number])By: Kevin SAMUEL, On: 16-Dec-2015 Intent Martha A Fast DO, Martha A Flu Vaccine (Quadrivalent) 94642Mb: On: 30-Nov-2015 Intent Fast DO, Martha A Fast DO, Martha A Comments: Lot:[id number]:08/26/16Dose:0.5mLRoute:IMSite:L DltdGiven By:ZACH signed MRI LUMBAR SPINE W/O CONTRAST On: 01-Sep-2015 Intent ([id number])By: Kevin SAMUEL Martha A Fast DO, Comments: hx of spine surgery- has done pt and pain management and nsaids- getting weak ehl right Martha A DEXA SCAN AXIAL SKELETON ([id number])By: On: 06-Jul-2015 Intent Fast DO, Martha A Fast DO, Martha A MAMMOGRAM, SCREENING, BOTH BREAST On: 06-Jul-2015 Intent ([id number])By: Fast DO, Martha A Fast DO, Martha A Rocephon Injection, 1 Gm (J0696)By: On: 06-Mar-2015 Intent Fast DO, Martha A Fast DO, Martha A Comments: lot: [id number]: 04/27/17ite/route: RGM/IMamt: 1GVIS signed when applicableMILLIE Crespo Radiology - ChestBy: Abby Rivera CNP On: 09-Feb-2015 Intent E Flu Vaccine (Quadrivalent) 84159Rp: On: 10-Dec-2014 Intent Fast DO, Martha A Fast DO, Martha A Comments: Lot #:[id number] date: 07/2015Amount given:prefilled syringeSite given:L Dltd, IMGiven by: WINNIE Hart and ABN signed ADMINISTRATION OF INFLUENZA VIRUS On: 10-Dec-2014 Intent VACCINE ([id number])By: Fast DO, Martha A Fast DO, Martha A BILATERAL MAMMOGRAMS ([id number])By: Fast On: 17-Jun-2014 Intent DO, Martha A Fast DO, Martha A Comments: screening FLU VAC, SPLIT, >3 YEARS, INTRAMUSC On: 02-Dec-2013 Intent ([id number])By: Kevin SAMUEL, Martha A Fast DO, Comments: Lot #:[id number] date:10/2015Amount given:0.5mlRoute: IMSite given: left deltoidGiven by: GARETT Washington A IMMUNIZ ADMNIN, 1 VAC, SNGL/COMBO On: 02-Dec-2013 Intent ([id number])By: Visit, Nurse CT OF RIGHT HIP WITH CONTRAST On: 30-Sep-2013 Intent ([id number])By: Kevin SAMUEL Martha A Fast DO, Comments: with or without contrast Martha A REMOVAL OF SUTURE BY A PROVIDER OTHER On: 30-Sep-2013 Intent THAN PROVIDER WHO ORIGINALLY PLACED Comments: rozina in head, 2 removed, pt tolerated SUTURE ([id number])By: Visit, Nurse Radiology - PelvisBy: Fast DO, Martha On: 25-Sep-2013 Intent A Fast DO, Martha A Radiology - Hip - RightBy: Fast DO, On: 25-Sep-2013 Intent Martha A Fast DO, Martha A Comments: stat call results Radiology - Thoracic SpineBy: Fast On: 25-Sep-2013 Intent DO, Martha A Fast DO, Martha A Radiology - Forearm - RightBy: Fast On: 25-Sep-2013 Intent DO, Martha A Fast DO, Martha A Pulse Oximetry ([id number])By: Kevin DO, On: 14-May-2013 Intent Martha A Fast DO, Martha A Comments: 98 Spirometry ([id number])By: Kevin SAMUEL Martha On: 14-May-2013 Intent A Fast DO, Martha A Comments: good effor tand curve - mild decrease small airways Radiology - Chest- PA and LatBy: Fast On: 14-May-2013 Intent DO, Martha A Fast DO, Martha A Comments: stat call wet read Eprescribed prescriptions ([id number])By: On: 14-May-2013 Intent Fast DO, Martha A Fast DO, Martha A Eprescribed prescriptions ([id number])By: On: 29-Apr-2013 Intent Fast DO, Martha A Fast DO, Martha A Eprescribed prescriptions ([id number])By: On: 19-Feb-2013 Intent Cherie Fountain FLU VAC, SPLIT, >3 YEARS, INTRAMUSC On: 28-Jan-2013 Intent ([id number])By: Fast DO, Martha A Fast DO, Comments: Lot #:[id number] date:mount given:0.5mlRoute: IMSite given: L dltdVIS and ABN signedGiven by: GARETT Washington Martha A IMMUNIZ ADMNIN, 1 VAC, SNGL/COMBO On: 28-Jan-2013 Intent ([id number])By: Fast DO, Martha A Fast DO, Martha A Eprescribed prescriptions ([id number])By: On: 28-Jan-2013 Intent Patito Tineo Eprescribed prescriptions ([id number])By: On: 17-Dec-2012 Intent Cherie Fountain Breast Ultrasound - LeftBy: Fast DO, On: 02-Nov-2012 Intent Martha A Fast DO, Martha A Breast Diagnostic - LeftBy: Fast DO, On: 02-Nov-2012 Intent Martha A Fast DO, Martha A CT - Abdomen & Pelvis Stone On: 12-Sep-2012 Intent ProtocolBy: Fast DO, Martha A Fast DO, Martha A Spirometry ([id number])By: Fast DO, Martha On: 28-May-2012 Intent A Fast DO, Martha A Comments: good effort and curve mild obst Pulse Oximetry ([id number])By: Fast DO, On: 28-May-2012 Intent Martha A Fast DO, Martha A Comments: 98 Breast Screening - BilateralBy: Fast On: 28-May-2012 Intent DO, Martha A Fast DO, Martha A Eprescribed prescriptions ([id number])By: On: 28-May-2012 Intent Patito Tineo Eprescribed prescriptions ([id number])By: On: 27-Apr-2012 Intent Patito Tineo Eprescribed prescriptions ([id number])By: On: 13-Feb-2012 Intent Fast DO, Martha A Fast DO, Martha A Eprescribed prescriptions ([id number])By: On: 30-Jan-2012 Intent Patito Tineo FLU VAC, SPLIT, >3 YEARS, INTRAMUSC On: 09-Dec-2011 Intent ([id number])By: Patito Tineo Comments: Lot #[id number]-5/30/13Site-left deltoidgiven by: Angela Vincent, RESEARCH AGRICULTURAL ENGINEER IMMUNIZ ADMNIN, 1 VAC, SNGL/COMBO On: 09-Dec-2011 Intent ([id number])By: Patito Tineo Nuclear Stress Test/Stress On: 22-Nov-2011 [...] MRI - BrainBy: Fast DO, Martha A Fast On: 14-Nov-2011 Intent DO, Martha A Radiology - Lumbar SpineBy: Fast DO, On: 14-Nov-2011 Intent Martha A Fast DO, Martha A Comments: tailbone Radiology - Cervical SpineBy: Fast On: 14-Nov-2011 Intent DO, Martha A Fast DO, Martha A EsophagramBy: Fast DO, Martha A Fast On: 22-Aug-2011 Intent DO, Martha A Comments: with 12mm tablet Pulse Oximetry ([id number])By: Fast DO, On: 28-Jun-2011 Intent Martha A Fast DO, Martha A Comments: 98 Radiology - Chest- PA and LatBy: Fast On: 28-Jun-2011 Intent DO, Martha A Fast DO, Martha A Comments: stat call wet read Spirometry ([id number])By: Fast DO, Martha On: 28-Jun-2011 Intent A Fast DO, Martha A Comments: good effort and curve normal Radiology - ChestBy: Fast DO, Martha A On: 07-Jun-2011 Intent Fast DO, Martha A Comments: PA/LAT (do in 1 month) Eprescribed prescriptions ([id number])By: On: 07-Jun-2011 Intent Fast DO, Martha A Fast DO, Martha A Pulse Oximetry ([id number])By: Fast DO, On: 07-Jun-2011 Intent Martha A Fast DO, Martha A Comments: 95 Radiology - Chest- PA and LatBy: Fast On: 07-Jun-2011 Intent DO, Martha A Fast DO, Martha A Comments: call wet read MAMMOGRAM, SCREENING, BOTH BREASTS On: 20-May-2011 Intent ([id number])By: Fast DO, Martha A Fast DO, Martha A Ultrasound - ThyroidBy: Fast DO, On: 27-Apr-2011 Intent Martha A Fast DO, Martha A TDAP VACCINE >7 IM ([id number])By: On: 27-Apr-2011 Intent Patito Tineo Comments: 2009 FLU VAC, SPLIT, >3 YEARS, INTRAMUSC On: 21-Dec-2010 Intent ([id number])By: Patito Tineo Comments: Lot #:[id number] date:mount given:0.5mlRoute: IMSite given:left deltGiven by: GARETT Washington IMMUNIZ ADMNIN, 1 VAC, SNGL/COMBO On: 21-Dec-2010 Intent ([id number])By: Patito Tineo EKG ([id number])By: Melissa SLOAN, Cynthia On: 27-Oct-2010 Intent Comments: ekg showed normal sinus rhythym, normal axis, no acute st/t wave changes rsr no change Eprescribed prescriptions ([id number])By: On: 03-Aug-2010 Intent Fast DO, Martha A Fast DO, Martha A CT - NeckBy: Fast DO, Martha A Fast On: 16-Jul-2010 Intent DO, Martha A Comments: ie cervical spine- Radiology - ChestBy: Fast DO, Martha A On: 13-Jul-2010 Intent Fast DO, Martha A Comments: pa and lat Radiology - Cervical SpineBy: Fast On: 13-Jul-2010 Intent DO, Martha A Fast DO, Martha A DXA, BONE DENSITY, AXIAL SKELETON On: 04-May-2010 Intent ([id number])By: Patito Tineo MAMMOGRAM, SCREENING, BOTH BREASTS On: 04-May-2010 Intent ([id number])By: Patito Tineo Clinical Breast Examination On: 04-May-2010 Intent ([id number])By: Patito Tineo Nuclear Medicine - Bone ScanBy: Fast On: 02-Apr-2010 Intent DO, Martha A Fast DO, Martha A Comments: full body- has neck pain and arthralgias and abnormal sacroiliac joint on xray-w ith focal sclerosis MAMMOGRAM, SCREENING, BOTH BREASTS On: 02-Apr-2010 Intent ([id number])By: Fast DO, Martha A Fast DO, Comments: due end of may Martha A Ultrasound - ThyroidBy: Noman, On: 23-Dec-2009 Intent Patito IMMUNIZ ADMNIN, 1 VAC, SNGL/COMBO On: 23-Dec-2009 Intent ([id number])By: Fast DO, Martha A Fast DO, Comments: lot # [id number] 4Pexp- [id number]- 0.5ML tolerated well [facility] Martha A FLU VAC, SPLIT, >3 YEARS, INTRAMUSC On: 23-Dec-2009 Intent ([id number])By: Fast DO, Martha A Fast DO, Martha A Spirometry ([id number])By: Fast DO Martha On: 26-Aug-2009 Intent A Fast DO, Martha A Comments: good effort and curve normal Pulse Oximetry ([id number])By: Kevin DO, On: 26-Aug-2009 Intent Martha A Fast DO, Martha A Comments: 99 Radiology - Chest- PA and LatBy: Fast On: 26-Aug-2009 Intent DO, Martha A Fast DO, Martha A EKG ([id number])By: Fast DO, Martha A Fast On: 02-Jul-2009 Intent DO, Martha A Comments: ekg showed normal sinus rhythym, normal axis, no acute st/t wave changes rsr apc Breast Screening - BilateralBy: Fast On: 11-Jun-2009 Intent DO, Martha A Fast DO, Martha [...] DO, Martha A Instructions Name Dates Details Preoperative clearance : How to access health information online Indication: Preoperative clearance Preoperative clearance : How to access health information online - Detail Indication: Preoperative clearance Preoperative clearance : Patient Instructions Indication: Preoperative clearance Acute bronchitis : How to access health information online Indication: Acute bronchitis Acute bronchitis : How to access health information online - Detail Indication: Acute bronchitis Acute bronchitis : Patient Instructions Indication: Acute bronchitis Acute bacterial bronchitis : How to access health information online Indication: Acute bacterial bronchitis Acute bacterial bronchitis : How to access health information online - Detail Indication: Acute bacterial bronchitis Acute bacterial bronchitis : Patient Instructions Indication: Acute bacterial bronchitis Dysuria : How to access health information [...] Other hyperlipidemia : DISCONTINUED - LIPID PANEL ([id number]) Indication: Other hyperlipidemia BMI between 19-24,adult : [...] Syncope : Patient Instructions Indication: Syncope Encounters Review On: 20-Mar-2018 13:12 Encounter Reason: Pre-Op Visit - The procedure scheduled is a exostectomy of the first left toe and matrectomy (also a kidney biospy with Dr Ashley) on 03/30/[address] Tripathi (Dr. Ashley hasn't been scheduled yet). Th e chief complaint is still having some sinus issues on L side. (finished antibiotic). Recent symptoms include fatigue. Pertinent medical history includes prior anesthesia and corticosteroid use in the l ast six months, while pertinent medical history does not include previous anesthesia reaction, clotting disorder, bleeding disorder or frequent aspirin use. Pertinent social history does not include asp irin use. Note for Pre-op visit: bp is good- using sea salt with tent right side cleared left hasnt- HASNT HAD BLEEDINGOR CLOTTING issues and no anesthesia issues- nocp sob- 2 surgeries having foot s urggery by Dr Tripathi 03/30/18 and a kidney biopsy by Dr Joy-- when she cleared- bp and sugar are good- breathing is good still feels like in bronchialsEncounter Diagnosis: Smoker, BMI 23.0-23.9, adult, Preoperative clearance, Thyroid disorder [facility] Phone Encounter On: 07-Mar-2018 15:34 Encounter Diagnosis: Thyroid disorder End: 07-Mar-2018 15:38 [facility] Office Visit On: 07-Mar-2018 11:04 Encounter Reason: Follow up tests - Date: (03/02 blood work)., [ADDITIONAL REASON] Follow up for chronic medical issues - The patient feels well with minor complai End: 07-Mar-2018 14:44 nts (came in over [place] when Dr brown was out for a cold. Was given an antibiotic which she just finished about 2 days ago. Feels much better but still having a cough and some sinus pressure. Coughin g up colored mucus.Cough is better than before but not 100% better. Feels in sinuses and in chest), has decreased energy level and is sleeping well (with aid of her medications). Patient has been compli ant with instructions. Current medication use: no side effects and compliant with dosing regimen. Patient sleeps 6 (interuppted hours) hours per night. Nutrition: balanced diet, supplemental vitamins an d low salt diet. The medical issues the patient is following up for include All identified problems below, gastric reflux, high cholesterol, hypothyroid, osteoporosis/osteopenia and other (anxiety, arth ritis, spinal stenosis, ddd). Note for Follow up for chronic medical issues: really thick snot- she just finished antiboitic monday- alot better but not gone- still colored mucous - less freq cough- a nd not as hard-- alot of draiange- tightness in chest never went up on pred- bp is good going to have a biopsy of her kidney next month- no visible hematuria in 2 weeksshe is going to get kidney biopsy- had cystoscopy ok- supposed to have 15th told need to put off couple weeks- still has had some flank pain Encounter Diagnosis: Smoker, BMI 23.0-23.9, adult, Anxiety (300.00), Acute bronchitis, Lumbosacral radiculopathy due to degenerative joint disease of spine, Gastroesophageal reflux disease without esophagitis, Mild intermittent asthma with acute exacerbation, Thrush, Impaired fasting glucose, Thyroid disorder, Other hyperlipidemia [facility] Office Visit On: 23-Feb-2018 10:25 Encounter Reason: Bronchitis, Acute, Adult - The last clinic visit was 1 month(s) ago. Symptoms include productive cough, shortness of breath, fatigue and pleuritic chest pain. The sputum is described as yellow. Onset wa End: 23-Feb-2018 10:48 s gradual 1 month(s) ago. The symptoms occur constantly. Note for Acute bronchitis: she has had UTI adn on atb for that. after finsih atb then had what she thought wasx a cold. ?sorethroat runnin g nose. did have fever low grade. ??now gone into yellow sputum and coughing alot. ??went to urologist with hematuria. been on cipro. did cystoscope and plannign kidney biopsy. smoker. sinus with thick foul tasting mucous. she is on zanaflex right nowEncounter Diagnosis: BMI 23.0- 23.9, adult, Smoker, Acute bacterial bronchitis [facility] Office Visit On: 15-Jan-2018 8:30 Encounter Diagnosis: [...] Dysuria, Right flank pain [facility] Office Visit On: 05-Dec-2017 9:10 Encounter Reason: Physical female exam - General health: feels well with minor complaints, has decreased energy level and is sleeping well. The patient's appetite is normal. Nutrition: normal/adequate. Exercises 4 days p End: 25-Feb-2018 22:00 er week. Sleeps on average 6 hours [...] adrenocortical insufficiency, Other hyperlipidemia, Osteoporosis, Thyroid nodule (241.0), Colon polyps [facility] Office Visit On: 10-Nov-2017 [...] colonoscopy (q 3 years 2015), screening, mammography (2017), screening, Pap smear (hysterectomy) and screening, visual acuity (Dr. Carranza is past due). Note f or Physical exam: she had prolia and did well- and bp is good- she not go back [facility] as she wants to wait until [...] - did End: 05-Sep-2016 9:46 get to the medical center- supposed to see endo doesnt think thyroid right- and doesnt have ms- seeing urolgoist oct 26- - saw neuro at the medical center- - they think white matter partly migrainous- they looked at her mris - they going to send to hydroelectric component machinist as well- the valium reallyhelping her sleep [...] to treat her until see neuro at the medical center- specialist to help determine- he increased her [...] a headache at some point daily.- seeing French this monday - and is going to [...] per night. Note for Follow up hospital: wed night was feeling better on antiobitoc and [...] visual acuity (yearly). Note for Physical exam: [facility] Physical- she is seeing Dr Wilburn on for her back and gettig thoracic mri and sa w painmanagement stillnot comfortable- tried fosamax in past gaver her terrible side effects gi upset , [ADDITIONAL REASON] Follow up, Laboratory Test Results - Date: (08/2015- [facility] labs). Encounter Diagnosis: BMI between 19-24,adult, Smoker, [facility], Osteoporosis, Gastroesophageal reflux disease without [...] breathing has been pretty good- she seeing [facility] [place] nd has said has sluggish adrenal but not require meds- she is adjusting her thyroid- she is watching her thryoid nodule-- shelikes the buspar alot and does help still has anxiety but helps- sometimes tr azadone doesnt get sleep so will take 2 [...] protein and low glycemic index- foods- she michael had hypoglycemia on 4 hourgtt and her [...] - she saw neurologist dr howard in [place]- he did tilt table table test and [...] no new complaints- seeing pain management at [facility] has good energy level and is [...] she actually got it on sheets- c ouldnst swallow well after surgery and had been [...] back in 2005- same surgeon- doing [place] [facility]- she saw Noni who told ehr to [...] medical issues: she is tired thinks is kenrick wants to try off - doesnt think [...] woman exam was .Encounter Diagnosis: Well Women (CHANDANA) (V72.31) End: 25-May-2010 9:45 [facility] [...] first degree relative (mother).Encounter Diagnosis: Well Women (CHANDANA) (V72.31), postmenopausal without estrogen [facility] [...] able to do more- and is joining [employer] to keep doing the exercises -- bp [...] Dr Gonzalez-- this person now moving to [place]- mentally the aquatherapy is helpi ng- physically [...] help--was told last year chol re marin and her doctor wanted to put her on medsEncounter Diagnosis: Hyperlipidemia (272.4), Hypothyroidism (244.9), Degenerative Disc Disease - Lumbar (722.52), Spinal Stenosis, Unspecified Region (724.00), Family history of diabetes mellitus (V18.0), Low back pain (724.2), Abnormal mammogram (793.80), Fibrocystic Breast Disease (610.2), Hip bursitis 726.5 [facility] Payers [facility] [employer]; a guarantor
--- OUTSIDE RECORDS SUMMARY | 2018-05-23 11:10 | XMS RPT_ITS | Continuity of Care Document ---
:1960 Author Organization [facility] Address [address] [facility] [address] [place] [address] Phone Care Team Providers Name Role Phone Martha Brown DO Unavailable Brinda IRVIN, Dr. Padilla Jones Unavailable Jitendra Cook MD Unavailable Alan Torres MD Unavailable Eusebio Braswell Unavailable Dr. Carlito Zamora DO Unavailable Aristides Daily Unavailable Unavailable Carlitos IRVIN, Dr. Matt Munguia Unavailable Shahla Myers MD Unavailable [facility], [facility] Unavailable Niru Taylor Unavailable Trudi Villafana Unavailable Dr. Niru Meyer MD Unavailable Rossy IRVIN, Gato Castillo Unavailable Jay Conley Unavailable Chikis Ashley Unavailable Manchak, Cherie Unavailable Unavailable Heather Glez LPN Unavailable Unavailable [...] present regimen Status: Active Anxiety (F41.9, 300.00) Status: Active [...] 0 days Refills: 0 Ordered:11-Jun-2009 Mast RN, MandCristianoctive Cytomel 5 MCG Oral Tablet 1 tab Tablet qd for 90 days Quantity: 90 {QS} Refills: 3 Ordered:05-Dec-2017 Martha Brown DO, DO, Debra A Start : 05-Dec-2017 Active DiazePAM 5 MG Oral Tablet 1 (one) Tablet bid for 0 days Quantity: 60 {Tablet} Refills: 0 Ordered:17-Oct-2017 Martha Brown DO, DO, Debra A Start : 17-Oct-2017 Active Comments:sixtyfaxed to BMT 06/16/17 LevoFLOXacin 500 MG Oral Tablet 1 (one) Tablet qd for 0 days Quantity: 7 {Tablet} Refills: 0 Ordered:07-Mar-2018 Martha Brown DO, DO, Debra A Start : 07-Mar-2018 Active Oxycodone-Acetaminophen 7.5-325 MG Oral Tablet 1 (one) Tablet q 6 hours prn for 0 days Quantity: 80 {Tablet} Refills: 0 Ordered:07-Mar-2018 Martha Brown DO, DO, Debra A Start : 07-Mar-2018 Active Comments:per pain managment PredniSONE 5 MG Oral Tablet 1 (one) Tablet qd as directed for 30 days Quantity: 40 {Tablet} Refills: 0 Ordered:05-Dec-2017 Martha Brown DO, DO, Debra A Start : 05-Dec-2017 Active Comments:take with food in am PredniSONE 5 MG Oral Tablet 1 (one) Tablet qd as directed for 90 days Quantity: 90 {Tablet} Refills: 3 Ordered:05-Dec-2017 Martha Brown DO, DO, Debra A Start : 05-Dec-2017 Active ProAir HFA 108 (90 Base) MCG/ACT Inhalation Aerosol Solution 2 (two) Aerosol Soln qid, prn for 30 days Quantity: 1 {Inhaler} Refills: 2 Ordered:08-Mar-2018 Hue Schwab DO Start : 08-Mar-2018 Active Comments:may substitute with whichever albterol inhaler cheapest Prolia 60 MG/ML Subcutaneous Solution 1 (one) Milliliter q 6 for 0 days Quantity: 1 {Milliliter} Refills: 0 Ordered:05-Dec-2017 Martha Brown DO, DO, Debra A Start : 05-Dec-2017 Active Propranolol HCl 20 MG Oral Tablet bid (20 MG) Active Rosuvastatin Calcium 20 MG Oral Tablet 1 (one) Tablet qhs for 90 days Quantity: 90 {Tablet} Refills: 3 Ordered:05-Dec-2017 Martha Brown DO, DO, Debra A Start : 05-Dec-2017 Active Synthroid 150 MCG Oral Tablet 1 (one) Tablet daily except 1/2 tab on m,w,f, for 90 days Refills: 3 Ordered:05-Dec-2017 Martha Brown DO, DO, Debra A Start : 05-Dec-2017 Active Dispense as Written Comments:COLTONCOLTONCOLTON Topiramate 50 MG Oral Tablet 1 Tablet 3 tabs at night and 1 in morning for 0 days Quantity: 270 {Tablet} Refills: 3 Ordered:28-Jun-2017 Martha Brwon DO, DO, Debra A Start : 28-Jun-2017 Active Comments:please DO NOT dispense peach pills Viibryd 20 MG Oral Tablet 1 (one) Tablet qd for 0 days Quantity: 30 {Tablet} Refills: 0 Ordered:07-Mar-2018 Martha Brown DOoctavia Martha A Start : 07-Mar-2018 Active Comments:brinda VITAMIN D, 2000UNIT (Oral Tablet) 1 Daily for 0 days Refills: 0 Ordered:11-Jun-2009 Mast RN, Allison Zanaflex 4 MG Oral Capsule 1 (one) [...] days Quantity: 90 {Tablet} Refills: 3 Ordered:07-Mar-2018 Kevin SAMUELFrana Martha Ball DO Start : 07-Mar-2017 End : 07-Mar-2018 Inactive Gabapentin 100 MG Oral Capsule 3 (three) Capsule tid for 30 days Quantity: 270 {Capsule} Refills: 0 Ordered:07-Mar-2017 Kevin SAMUEL Martha ROMEROFran dudley DOrita Salinas Start : 07-Mar-2017 End : 06-Apr-2017 Inactive [...] Quantity: 30 {Tablet} Refills: 0 Ordered:09-May-2016 Kevin SAMUELFranrita ROMEROMartha dudley DO Start : 09-May-2016 End : 08-Jun-2016 Inactive Comments:thirty MAXALT, 10MG (Oral Tablet) 1 (one) Tablet prn for 30 days Quantity: 10 {Tablet} Refills: 0 Ordered:02-Sep-2013 Kevin SAMUELFranrita ROMEROMartha dudley DO Start : 01-Jul-2013 End : 31-Jul-2013 Inactive MELATONIN, 5MG (Oral Tablet) 1 QHS for 0 days Refills: 0 Ordered:04-Jun-2010 Kareem Saloni SHANE End : 04-Jun-2010 Inactive MOBIC, 7.5MG (Oral Tablet) 1 tab qd, prn (7.5 MG) Inactive Neurontin 600 MG Oral Tablet 1 (one) Capsule Tablet bid for 0 days Quantity: 180 {Tablet} Refills: 3 Ordered:01-Sep-2016 Kevin SAMUELFrana Martha Ball DO A Start : 24-May-2016 End : 01-Sep-2016 Inactive NYSTATIN, 606778AOZW/ML (Mouth/Throat Suspension) 1 Suspension 5 cc 5 x a day for 10 days for 0 days Refills: 0 Ordered:28-Jun-2011 Patito Tineo Start : 10-Jun-2011 End : 28-Jun-2011 Inactive PredniSONE 1 MG Oral Tablet 1-4 Tablet [...] taken as needed. This order discontinued per [facility]. LevoFLOXacin 500 MG Oral Tablet 1 (one) [...] days Quantity: 1 {Suspension} Refills: 0 Ordered:15-Aug-2012 Martha Brown DO, DO, Debra A Start : 15-Aug-2012 End : 15-Aug-2012 Discontinued NEXIUM, 40MG (Oral Capsule Delayed Release) [address] bid for 0 days Quantity: 60 {Capsule_DR} Refills: 3 Ordered:27-Apr-2011 Martha Brown DO, DO Martha A Start : 27-Apr-2011 End : 27-Apr-2011 Discontinued Comments:1 hour before bed- failed omeprazole and pepcid [place] 3 1200 MG Oral Capsule 2 qd [...] WITH Contrast Result: Comments: See Note; NOTES: [facility] Imaging Services [address] [place] [address] Abdomen/Pelvis WITH Contrast MR#: [id number] Acct: [id number] Name: TITA LAW Rep #: [id number] : 1960 F 57 From: Barrera Galeana MD PCP: Martha Brown DO Status: REG CLI Study: Abdomen/Pelvis WITH Contrast Date of Exam: 02/14/18 Exam# [id number] Ordering Dr: Chikis Ashley STUDY: CT ABDOMEN [...] Barrera Galeana MD at 10:47 EST Tel [phone], Service support , CC: Martha Brown DO; Chikis Ashley MD Surface Supervisor: Signed 08-Jan-2018 Abdomen/Pelvis without Cont Result: Comments: See Note; NOTES: [facility] Imaging Services [address] [place] [address] Abdomen/Pelvis without Cont MR#: [id number] Acct: [id number] Name: TITA LAW Rep #: [id number] : 1960 F 57 From: Barrera Galeana MD PCP: Martha Brown DO Status: REG CLI Study: Abdomen/Pelvis without Cont Date of Exam: 01/08/18 Exam# [id number] Ordering Dr: Martha Brown DO S TUDY: [...] Barrera Galeana MD at 13:09 EST Tel [phone], Service support , CC: Martha Brown DO Surface Supervisor: Signed 30-Dec-2017 Urgent Care Visit Report Result: Comments: See Note; NOTES: [facility] [address] [place] [address] OFFICE VISIT Date of Service: 12/30/17 MR#: [id number] Acct: [id number] Name: TITA LAW Rep #: [id number] : 1960 Provider: APPLE Casiano Age/Sex: 57/F [...] person, oriented to place, oriented to time HENDE Head: normocephalic Ears: external ears normal, TM's [...] W/WO Contrast Result: Comments: See Note; NOTES: [facility] Imaging Services [address] [place] [address] Brain W/WO Contrast MR#: [id number] Acct: [id number] Name: TITA LAW Rita Rep #: [id number] : 1960 F 57 From: Pedro Luis Akhtar MD PCP: Martha Brown DO Status: REG CLI Study: Brain W/WO Contrast Date of Exam: 11/06/17 Exam# [id number] Ordering Dr: Martha Brown DO STUDY: MRI [...] Service support , CC: Martha Brown DO Surface Supervisor: Signed 31-Aug-2017 SCREENING MAMM (CAD), BILAT Result: Comments: See Note; NOTES: [facility] Imaging Services [address] [place] [address] SCREENING MAMM (CAD), BILAT MR#: [id number] Acct: [id number] Name: TITA LAW Rita Rep #: [id number] : 1960 F 57 From: Barrera Galeana MD PCP: Martha Brown DO Status: [facility] Study: SCREENING MAMM (CAD), BILAT Date of Exam: 08/31/17 Exam# [id number] Ordering Dr: Martha Brown DO MAMMOGRAPHY - [...] biopsy of a clini griselda suspicious abnormality. [id number] Electronically Signed: Barrera Galeana MD at 14:24 EDT Tel [phone], Service support , CC: Martha Brown DO Surface Supervisor: Signed 31-Aug-2017 Dexa Bone Density Study Result: Comments: See Note; NOTES: [facility] Imaging Services [address] [place] [address] Dexa Bone Density Study MR#: [id number] Acct: [id number] Name: TITA LAW Rep #: [id number] : 1960 F 57 From: Barrera Galeana MD PCP: Martha Brown DO Status: REG CLI Study: Dexa Bone Density Study Date of Exam: 08/31/17 Exam# [id number] Ordering Dr: Martha Brown DO STUDY: D [...] Barrera Galeana MD at 15:16 EDT Tel [phone], Service support , CC: Martha Brown DO Surface Supervisor: Signed 27-Jul-2017 PT D/C Summary (1) Result: Comments: See Note; NOTES: [facility] [address] [place] [address]. [address] [place] [address] Fax REHABILITATION SERVICES [facility] SUMMARY MR#: [id number] Acct: [id number] Name: TITA LAW Rep #: [id number] : 1960 57 From: Alan Miller PT, Cert. T, OCS Referring DrIfeanyi: Maddie MCRAE [facility] Status: REG RCR Insu zafar: [facility] [employer] PA[employer] INSURANCE HP - PT [...] please feel free to call me at [phone]. Thank you for the referral of this patient. Sincerely, Alan Miller PT, <Electronically signed by Alan yuan PT, Cert. T, [facility]> 07/27/17 9662 CC: Maddie MCRAE Prebish; Martha Brown DO JLA Signed 28-Jun-2017 Forearm 2 Views Result: Comments: See Note; NOTES: [facility] Imaging Services [address] [place] [address] Forearm 2 Views MR#: [id number] Acct: [id number] Name: TITA LAW Rep #: [id number] : 1960 F 56 From: Jam Thomas MD PCP: Martha Brown DO Status: REG CLI Study: Forearm 2 Views Date of Exam: 06/28/17 Exam# [id number] Ordering Dr: Martha Brown DO STUDY: X-RAY [...] Service support , CC: Martha Brown DO Surface Supervisor: Signed 28-Jun-2017 Wrist min 3 Views Result: Comments: See Note; NOTES: [facility] Imaging Services [address] [place] [address] Wrist min 3 Views MR#: [id number] Acct: [id number] Name: TITA LAW Rep #: [id number] : 1960 F 56 From: Jam Thomas MD PCP: Martha Brown DO Status: REG CLI Study: Wrist min 3 Views Date of Exam: 06/28/17 Exam# [id number] Ordering Dr: Martha Brown DO STUDY: X-RAY [...] Service support , CC: Martha Brown DO Surface Supervisor: Signed 28-Jun-2017 Brain/Head without Contrast Result: Comments: See Note; NOTES: [facility] Imaging Services [address] [place] [address] Brain/Head without Contrast MR#: [id number] Acct: [id number] Name: TITA LAW Rep #: [id number] : 1960 F 56 From: Krzysztof Rivera MD PCP: Martha Brown DO Status: REG CLI Study: Brain/Head without Contrast Date of Exam: 06/28/17 Exam# [id number] Ordering Dr: Martha Brown DO STUDY : [...] Service support , CC: Martha Brown DO Surface Supervisor: Signed 01-May-2017 Chest PA and Lateral Result: Comments: See Note; NOTES: [facility] Imaging Services [address] [facility] [place] [address] Chest PA and Lateral MR#: [id number] Acct: [id number] Name: TITA LAW Rep #: [id number] : 1960 F 56 From: Murray Palma MD PCP: Martha Brown DO Status: REG CLI Study: Chest PA and Lateral Date of Exam: 05/01/17 Exam# [id number] Ordering Dr: Martha Brown DO STUDY: X-RAY [...] MD at 17:05 EST , Service support [phone], CC: Martha Brown DO Surface Supervisor: Signed 15-Apr-2017 Discharge Instruction Result: Comments: See Note; NOTES: [facility] Medical Records Department [address] [place] [address] Discharge Instruction 04/15/171812 MR#: [id number] Acct: [id number] Name: NEGIN MontalvoTITA Rep #: [id number] : 1960 56 From: Dusty Dumont MD PCP: Martha Brown DO Status: REG ER ED Disposition - Plan for ED Patient: Chief Complaint: Shortness of Breath Instructions: [facility] Prescriptions: Levofloxacin [Levaquin] 500 mg PO DAILY #7 tab Referrals: Martha Brown DO [Primary Care Provider] - What to do if you have Problems For any increased pain, shortness of b reath, bleeding, nausea or vomiting, chest pain, or any unexpected problems, contact your Primary Care Provider. Call [facility] ([phone]) or report to the closest Emergency Room. Call 911 if necessary. 04/15/171813 <Electronically signed by Dusty Dumont MD> Date Dusty Dumont MD Cosigner Signature (If Indicated): Da te CC: Martha Brown DO 15-Apr-2017 Emergency Department Summary Result: Comments: See Note; NOTES: [facility] Medical Records Department [address] [place] [address] Emergency Department Summary 04/15/171810 MR#: [id number] Acct: [id number] Name: ANITITA Rep #: [id number] : 1960 56 From: Dusty Dumont MD [...] acquired pneumonia This note was generated with [employer] software. It may contain incorrect words, spelling, and punctuation that were not noted in review of the chart prior to signing ED Disposition - Plan for ED Patient: Chief Complaint: Shortness of Breath Referrals: Martha Brown, DO [Primary Care Provider] - What to do if you have Problems For any increased pain, shortness of breath, bleeding, nausea or vomiting, chest pain, or any unexpecte d problems, contact your Primary Care Provider. Call [facility] ([phone]) or report to the closest Emergency Room. Call 911 if necessary. 04/15/17 940 <Electronically signed by Art Dumont MD> Date Dusty Dumont MD Cosigner Signature (If Indicated): Date CC: Martha Brown DO 15-Apr-2017 Chest PA and Lateral Result: Comments: See Note; NOTES: [facility] Imaging Services [address] [place] [address] Chest PA and Lateral MR#: [id number] Acct: [id number] Name: TITA LAW Rep #: [id number] : 1960 F 56 From: Erasto Persaud MD PCP: Martha Brown DO Status: REG ER Study: Chest PA and Lateral Date of Exam: 04/15/17 Exam# [id number] Ordering Dr: Dusty Dumont MD STUDY: X-RAY [...] CC: Martha Brown DO; Dusty Dumont MD Surface Supervisor: Signed 03-Apr-2017 Inital Evaluation (1) - PT Result: Comments: See Note; NOTES: [facility] [address] [place] [address] Fax REHABILITATION SERVICES INITIAL EVALUATION MR#: [id number] Acct: [id number] Name: TITA LAW Rep #: [id number] : 1960 56 From: Alan Miller PT, Cert. MDT, OCS Referring Dr.: Maddie Munoz Status: REG RCR Insur ance: [facility] [employer] INSURANCE Patient's Visit Information TITA LAW is a 56 year old F referred to Physical Therapy by THOR Ridley [facility]ER.LPREBI with a diagnosis of L-IVDD,L- STENOSIS,L-SPONDYLOPATHY,MYALGIA. Date of Evaluation: 03/30/17 Physical Therapist: Alan Miller, PT, - Visit Plan Frequency: 2x /Week [...] ability to perform tasks related to life crhistina gement Therapeutic Exercise to Include: Strength training, [...] to be FAXED BACK to us at [phone] for Medicare purposes. Please let me know if there are questions or concerns regarding this plan of care. Physician Signature: Date: <Electronically signed by Alan Miller PT Cert. PARRISH, RAMON> 04/03/17 1017 CC: Maddie Brown DO LISHA Signed For Medicare only, by signing this I certify the plan of care. Physicians Signature Date 08-Mar-2017 Thyroid Result: Comments: See Note; NOTES: [facility] Imaging Services [address] [place] [place] [address] Thyroid MR#: [id number] Acct: [id number] Name: TITA LAW Rep #: [id number] : [birth year] F 56 From: Barrera Galeana MD PCP: Martha Brown DO Status: REG CLI Study: Thyroid Date of Exam: 03/08/17 Exam# [id number] Ordering Dr: Martha Brown DO STUDY: THYROID [...] Galeana MD at 14:4 9 EST Tel [phone], Service support , CC: Martha Brown DO Surface Supervisor: Signed 06-Dec-2016 TXT - Blood Flow Screening Result: Comments: See Note; NOTES: [facility] Cardiovascular Services [address] [place] [address] 12/06/16 0815 MR#: [id number] Acct: [id number] Name: TITA LAW Rep #: [id number] : 1960 56 From: Shane Cotto MD Attending Dr: Martha Brown DO Status: REG REF Ordering Dr: Date: 12/06/16 Location: [facility] Sex: F C Admitted: Reason For Study: [...] Sharif e Dictated: 12/06/16814 Date Transcribed: 12/06/162139 Surface Supervisor: Signed 13-Sep-2016 Stress Report Result: Comments: See Note; NOTES: [facility] Cardiovascular Services [address] [place] [address] Agnes ames MR#: [id number] Acct: [id number] Name: TITA LAW Rep #: [id number] [...] patient was injected with 32.8 mCi of Nocturnist 99m Cardiolite and subsequently stress SPECT Cardiolite [...] of 85%. This note was generated with [employer] software. It may contain incorrect words, spelling, and punctuation that were not noted in checking the not e before signing. 09/13/162053 <Electronically signed by Gato Blair MD> Date Gato Blair MD CC: Martha Brown DO; Gato Blair MD Date Dictated: 09/13/162046 Date Transcribed: 09/13/162046 Surface Supervisor: PM Signed 30-Aug-2016 Electroencephalogram Result: Comments: See Note; NOTES: [facility] Pulmonary Services/Neurology [address] [place] [address] MR#: [id number] Acct: [id number] Name: TITA LAW Rep #: [id number] : 1960 56 From: Jacinto Salazar MD [...] Date Dic tated: 08/29/161720 Date Transcribed: 08/29/161720 Surface Supervisor: RSR Signed 29-Aug-2016 SCREENING MAMM (CAD), BILAT Result: Comments: See Note; NOTES: [facility] Imaging Services [address] [place] [address] Verdana 4d SCREENING MAMM (CAD), BILAT MR#: [id number] Acct: [id number] Name: GINNY LAW Rep #: [id number] : 1960 F 56 From: Krzysztof White MD PCP: Martha Brown DO Status: REG CLI Study: SCREENING MAMM (CAD), BILAT Date of Exam: 08/29/16 Exam# [id number] Ordering Dr: Martha Brown DO MAMMOGRAPHY - [...] delay biopsy of a clinically suspicious abnormality. [id number] Electronically Signed: Dread White MD at 8:46 EDT , Service support , CC: Martha Brown DO Surface Supervisor: Signed 25-Aug-2016 Echocardiogram Complete Result: Comments: See Note; NOTES: [facility] Cardiovascular Services [address] [place] [address] Echo Complete 08/25/16 1207 MR#: [id number] Acct: [id number] Name: TITA LAW Rep #: [id number] : 1960 56 From: Conrado Nolasco MD Attending Dr: Martha Brown DO Status: REG CLI Ordering Dr: Martha Brown DO Date: 08/25/16 Location: [facility] Sex: F C Admitted: Reason For Study: [...] DO Date Dictated: 08/25/16 1207 Date Transcribed: 08/25/161317 Surface Supervisor: Signed 09-Aug-2016 Chest PA and Lateral Result: Comments: See Note; NOTES: [facility] Imaging Services [address] [place] [address] Verdana 4d Chest PA and Lateral MR#: [id number] Acct: [id number] Name: TITA LAW p #: [id number] : 1960 F 56 From: Dustin Villatoro DO PCP: Martha Brown DO Status: REG CLI Study: Chest PA and Lateral Date of Exam: 08/09/16 Exam# [id number] Ordering Dr: Martha Brown DO STUDY: X-RAY [...] Dustin Villatoro DO at 22:20 EDT T [phone], Service support , CC: Martha Brown DO Surface Supervisor: Signed 21-Jul-2016 Thyroid Result: Comments: See Note; NOTES: [facility] Imaging Services [address] [place] [address] Verdana 4d Thyroid MR#: [id number] Acct: [id number] Name: TITA LAW Rep #: [id number] : 1960 F 56 From: Quentin Inman DO PCP: Martha Brown DO Status: REG CLI Study: Thyroid Date of Exam: 07/21/16 Exam# [id number] Ordering Dr: Martha Brown DO STUDY: THYROID [...] Tel , Service support , CC: Martha Brwon DO Surface Supervisor: Signed 23-Jun-2016 Cerv Spine 4 or 5 Views Result: Comments: See Note; NOTES: [facility] Imaging Services [address] [place] [address] Verdana 4d Cerv Spine 4 or 5 Views MR#: [id number] Acct: [id number] Name: TITA LAW Rep #: [id number] : 1960 F 55 From: Hugo Pearce MD PCP: Martha Brown DO Status: REG CLI Study: Cerv Spine 4 or 5 Views Date of Exam: 06/23/16 Exam# [id number] Ordering Dr: Martha Brown DO STUDY: X-RAY [...] Service support , CC: Martha Brown DO Surface Supervisor: Signed 23-Jun-2016 Cerv Spine 4 or 5 Views Result: Comments: See Note; NOTES: [facility] Imaging Services [address] [place] [address] Verdana 4d Cerv Spine 4 or 5 Views MR#: [id number] Acct: [id number] Name: TITA LAW Rep #: [id number] : 1960 F 55 From: Hugo Pearce MD PCP: Martha Brown DO Status: REG CLI Study: Cerv Spine 4 or 5 Views Date of Exam: 06/23/16 Exam# [id number] Ordering Dr: Martha Brown DO ADDENDUM by [...] of January 25, 2016 Electronically Signed: Hugo Ramses, at 15:59 EDT Tel , Service support [phone], 06/28/16 1559 Date cc: Martha Brown DO [...] support , Fax CC: Martha Brown DO Surface Supervisor: Signed 23-Jun-2016 Chest PA and Lateral Result: Comments: See Note; NOTES: [facility] Imaging Services [address] [place] [address] Verdana 4d Chest PA and Lateral MR#: [id number] Acct: [id number] Name: ANI,TITA Marnie p #: [id number] : 1960 F 55 From: Hugo Pearce MD PCP: Martha Brown DO Status: REG CLI Study: Chest PA and Lateral Date of Exam: 06/23/16 Exam# [id number] Ordering Dr: Martha Brown TUDY: X-RAY CHEST [...] Service support , CC: Martha Brown DO Surface Supervisor: Signed 02-Jun-2016 Abdomen WITH IV Contrast Result: Comments: See Note; NOTES: [facility] Imaging Services [address] [place] [address] Verdana 4d Abdomen WITH IV Contrast MR#: [id number] Acct: [id number] Name: BESSY LAW Rep #: [id number] : 1960 F 55 From: Isela Wright MD PCP: Martha Brown DO Status: REG CLI Study: Abdomen WITH IV Contrast Date of Exam: 06/02/16 Exam# [id number] Ordering Dr: Martha Brown DO S TUDY: CT ABDOMEN WITH CONTRAST REASON FOR [...] MD at 7:28 EDT , Service support [phone], CC: Martha Brown DO Surface Supervisor: Signed 02-Jun-2016 Abdomen WITH IV Contrast Result: Comments: See Note; NOTES: [facility] Imaging Services [address] [place] [address] Agnes 4d Abdomen WITH IV Contrast MR#: [id number] Acct: [id number] Name: BESSY LAW Rep #: [id number] : 1960 F 55 From: Isela Wright MD PCP: Martha Brown DO Status: REG CLI Study: Abdomen WITH IV Contrast Date of Exam: 06/02/16 Exam# [id number] Ordering Dr: Martha Brown DO A DDENDUM [...] MD at 7:28 EDT , Service support [phone], Fax CC: Martha Brown DO Surface Supervisor: Signed 19-May-2016 Hepatobilliary Img w/Pharm Int Result: Comments: See Note; NOTES: [facility] Imaging Services [address] [place] [address] Verdaligia 4d Hepatobilliary Img w/Pharm Int MR#: [id number] Acct: [id number] Name: TITA LAW Rep #: [id number] : 1960 F 55 From: Mario Olivo DO PCP: Martha Brown DO Status: REG CLI Study: Hepatobilliary Img w/Pharm Int Date of Exam: 05/19/16 Exam# [id number] Ordering Dr: Carrington Brown DO CLINICAL: 55-year-old [...] at 22:51 EDT Tel , Service support [phone], CC: Martha Brown DO Surface Supervisor: Signed 12-May-2016 Liver Result: Comments: See Note; NOTES: [facility] Imaging Services [address] [place] [address] Agnes 4d Liver MR#: [id number] Acct: [id number] Name: TITA LAW Rep #: [id number] : 1960 F 55 From: Barrera Galeana MD PCP: Martha Brown DO Status: REG CLI Study: Liver Date of Exam: 05/12/16 Exam# [id number] Ordering Dr: Martha Brown DO STUDY: ABDOMINAL [...] Barrera Galeana MD at 11:28 EDT Tel [phone], Service anthony pport [phone], CC: Martha Brown DO Surface Supervisor: Signed 20-Apr-2016 NCS and/or EMG Patient Result: Comments: See Note; NOTES: [facility] Pulmonary Services/Neurology [address] [place] [address] NCS and/or EMG Patient MR#: [id number] Acct: [id number] Name: TITA LAW Rep #: [id number] : 1960 55 From: Pardeep Read MD Referring Dr: Eusebio Braswell MD Status: REG CLI Ordering Dr: Eusebio Braswell MD Date: 04/20/16 Location: [facility] Sex: F C DATE OF [...] nerve. Pardeep Read MD T: NTS JOB: [id number] 04/20/16 1556 <Electronically signed by Pardeep Read MD> Date Pardeep Read MD CC: Martha Brown DO; Pardeep Read MD; Eusebio Braswell MD Date Dictated: 04/20/161106 Date Transcribed: 04/20/161106 Surface Supervisor: Signed 15-Mar-2016 Fluoro Guided Lumbar Puncture Result: Comments: See Note; NOTES: [facility] Imaging Services [address] [place] [address] Verdana 4d Fluoro Guided Lumbar Puncture MR#: [id number] Acct: [id number] Name: Niecy LAW Rep #: [id number] : 1960 F 55 From: Barrera Galeana MD PCP: Martha Brown DO Status: REG CLI Study: Fluoro Guided Lumbar Puncture Date of Exam: 03/15/16 Exam# [id number] Ordering Dr: Pepper Benoit PROCEDURE: Fluoroscopic guided [...] procedure were explained to the patient. [facility] risks of bleeding, infection, and neurovascular [...] Barrera Galeana MD at 10:09 EST Tel [phone], Service support [phone], CC: Pepper Barr GREEN CHAIN PULLER; Martha Brown DO Surface Supervisor: Signed 11-Mar-2016 Thyroid Result: Comments: See Note; NOTES: [facility] Imaging Services [address] [place] [address] Verdana 4d Thyroid MR#: [id number] Acct: [id number] Name: TITA LAW Rep #: [id number] : 1960 F 55 From: Barrera Galeana MD PCP: Martha Brown DO Status: REG CLI Study: Thyroid Date of Exam: 03/11/16 Exam# [id number] Ordering Dr: Martha Brown DO STUDY: THYROID [...] Barrera Galeana MD at 15:57 EST Tel [phone], Service support [phone], CC: Martha Brown DO Surface Supervisor: Signed 10-Feb-2016 Brain W/WO Contrast Result: Comments: See Note; NOTES: [facility] Imaging Services [address] [place] [address] Verdana 4d Brain W/WO Contrast MR#: [id number] Acct: [id number] Name: TITA LAW Rep #: [id number] : 1960 F 55 From: Madeleine Villar MD PCP: Martha Brown DO Status: REG CLI Study: Brain W/WO Contrast Date of Exam: 02/10/16 Exam# [id number] Ordering Dr: Martha Brown DO STUDY: MRI [...] MD at 23:33 EST , Service support [phone], CC: Martha Brown DO Surface Supervisor: Signed 25-Jan-2016 Cerv Spine 2 or 3 Views Result: Comments: See Note; NOTES: [facility] Imaging Services [facility] [place] [address] Verdana 4d Cerv Spine 2 or 3 Views MR#: [id number] Acct: [id number] Name: TITA LAW Rep #: [id number] : 1960 F 55 From: Julio Cesar Soto MD PCP: Martha Brown DO Status: REG CLI Study: Cerv Spine 2 or 3 Views Date of Exam: 01/25/16 Exam# [id number] Ordering Dr: Matt Wilburn STUDY : X-RAY [...] FACR at 16:52 EST , Service support [phone], CC: MATT WILBURN; Martha Brown DO Surface Supervisor: Signed 25-Jan-2016 Spine Cervical (Routine) Result: Comments: See Note; NOTES: [facility] Imaging Services [address] [place] [address] Verdana 4d Spine Cervical (Routine) MR#: [id number] Acct: [id number] Name: BESSY LAW Rep #: [id number] : 1960 F 55 From: Julio Cesar Soto MD PCP: Martha Brown DO Status: REG CLI Study: Spine Cervical (Routine) Date of Exam: 01/25/16 Exam# [id number] Ordering Dr: Matt Wilburn [facility] DY: MRI CERVICAL SPINE WITHOUT CONTRAST REASON [...] FACR at 15:55 EST , Service support [phone], CC: MATT WILBURN; Martha Brown DO Surface Supervisor: Signed 31-Dec-2015 L/S Spine Bending Flex/Ext Result: Comments: See Note; NOTES: [facility] Imaging Services [address] [place] [address] Verdana 4d L/S Spine Bending Flex/Ext MR#: [id number] Acct: [id number] Name: GINNY LAW LLIS Rep #: [id number] : 1960 F 55 From: Barrera Galeana MD PCP: Martha Brown DO Status: REG CLI Study: L/S Spine Bending Flex/Ext Date of Exam: 12/31/15 Exam# [id number] Ordering Dr: Carrington Wilburn STUDY: X-RAY - [...] Galeana MD 4 at 11:17 EDT Tel [phone], Service support [phone], CC: MATT Brown DO Surface Supervisor: Signed 24-Dec-2015 Chest 1 View (Portable) Result: Comments: See Note; NOTES: [facility] Imaging Services [address] [place] [address] Verdana 4d Chest 1 View (Portable) MR#: [id number] Acct: [id number] Name: BESSY LAW Rep #: [id number] : 1960 F 55 From: Barrera Galeana MD PCP: Martha Brown DO Status: REG ER Study: Chest 1 View (Portable) Date of Exam: 12/24/15 Exam# [id number] Ordering Dr: Rashad Acosta MD STUDY: X-RAY [...] Barrera Galeana MD at 15:13 EDT Tel [phone], Service support [phone], CC: Martha Brown DO; Rashad Acosta MD Surface Supervisor: Signed 10-Oct-2015 Spine Lumbar without Contrast Result: Comments: See Note; NOTES: [facility] Imaging Services [address] [place] [address] Verdana 4d Spine Lumbar without Contrast MR#: [id number] Acct: [id number] Name: MANDY LAWLIS Rep #: [id number] : 1960 F 55 From: Quentin Inman DO PCP: Martha Brown DO Status: REG CLI Study: Spine Lumbar without Contrast Date of Exam: 10/10/15 Exam# [id number] Ordering Dr: Ruben Wilburn STUDY: CT LUMBAR [...] at 16:29 EDT Tel , Service support [phone], CC: MATT Brown DO Surface Supervisor: Signed 07-Oct-2015 Spine Thoracic (Routine) Result: Comments: See Note; NOTES: [facility] Imaging Services [address] [place] [address] Verdaisy 4d Spine Thoracic (Routine) MR#: [id number] Acct: [id number] Name: SARINA LAW IS Rep #: [id number] : 1960 F 55 From: Basil Culver MD PCP: Martha Brown DO Status: REG CLI Study: Spine Thoracic (Routine) Date of Exam: 10/07/15 Exam# [id number] Ordering Dr: MANDEEP DILLON MD STUDY: MRI [...] at 16:32 EDT Tel , Service support [phone], CC: Martha Brown DO; MANDEEP DILLON MD Surface Supervisor: Signed 29-Sep-2015 ELECTROCARDIOGRAM, COMPLETE (ECG) (08637) Comments: ekg showed normal sinus rhythym, normal axis, no acute st/t wave changes Result: [MEASUREMENTS ANALYSIS] Date of Test: 09/29/2015 10:02:56; Heart Rate: 70; CO Interval: 158; QRS: 90; QT Interval: 396; Corrected QT Interval (QTc): 413; P Wave [employer]: 73; QRS Wave [employer]: 71; T Wave [employer]: 67; Blood Pressure: 110/70 [ECG DIAGNOSTIC STATEMENTS] Date of Test: 09/29/2015 10:02:56; Summary: Sinus Rhythm WITHIN NORMAL LIMITS 03-Sep-2015 Spine Lumbar (Routine) Result: Comments: See Note; NOTES: [facility] Imaging Services [address] [place] [address] Vernadaligia 4d Spine Lumbar (Routine) MR#: [id number] Acct: [id number] Name: TITA DUEÑAS Rep #: [id number] : 1960 F 55 From: Julio Cesar Soto MD PCP: Martha Brown DO Status: REG CLI Study: Spine Lumbar (Routine) Date of Exam: 09/03/15 Exam# [id number] Ordering Dr: Martha Brown DO STUDY: MRI [...] FACR at 11:54 EDT , Service support [phone], CC: Martha Brown DO Surface Supervisor: Signed 27-Aug-2015 Bilat Scrn Digital AND CAD Result: Comments: See Note; NOTES: [facility] Imaging Services [address] [place] [address] Verdana 4d Bilat Scrn Digital AND CAD MR#: [id number] Acct: [id number] Name: TITA LAW Rep #: [id number] : 1960 F 55 From: Barrera Galeana MD PCP: Martha Brown DO Status: REG CLI Study: Bilat Scrn Digital AND CAD Date of Exam: 08/27/15 Exam# [id number] Ever rocha Dr: Martha Brown DO MAMMOGRAPHY - BILATERAL [...] delay biopsy of a clinically suspicious abnormality. [id number] Electronically Signed: Barrera Galeana MD a t 8:51 EDT Tel [phone], Service support [phone], CC: Martha Brown DO Surface Supervisor: Signed 27-Aug-2015 Dexa Bone Density Study (HP) Result: Comments: See Note; NOTES: [facility] Imaging Services [address] [place] [address] Verdana 4d Dexa Bone Density Study (HP) MR#: [id number] Acct: [id number] Name : TITA LAW Rep #: [id number] : 1960 F 55 From: Barrera Galeana MD PCP: Martha Brown DO Status: REG CLI Study: Dexa Bone Density Study () Date of Exam: 08/27/15 Exam# [id number] Or bernardo Dr: Martha Brown DO STUDY: [...] Barrera Galeana MD at 14:42 EDT Tel [phone], Service support [phone], CC: Martha Brown DO Surface Supervisor: Signed 27-Aug-2015 Hip 2-3 Views with Pelvis Result: Comments: See Note; NOTES: [facility] Imaging Services [address] [place] [address] Verda 4d Hip 2-3 Views with Pelvis MR#: [id number] Acct: [id number] Name: TITA AMBROCIO Rep #: [id number] : 1960 F 55 From: Murray Palma MD PCP: Martha Brown DO Status: REG CLI Study: Hip 2-3 Views with Pelvis Date of Exam: 08/27/15 Exam# [id number] Ordering Dr: Martha Johnson DO STUDY: X-RAY [...] MD at 16:31 EDT , Service support [phone], RAD/Hip 2-3 Views with Pelvis IMPRESSION: Osteopenia with post-surgical changes in the lower lumbar spine. No acute pathology identified. Electr onically Signed: Murray Palma MD at 16:31 EDT , Service support [phone], CC: Martha Brown DO Surface Supervisor: Signed 09-Feb-2015 Chest PA and Lateral Result: Comments: See Note; NOTES: [facility] Imaging Services [address] [place] [address] Verdana 4d Chest PA and Lateral MR#: [id number] Acct: [id number] Name: TITA MCLEAN Rep #: [id number] : 1960 F 54 From: Barrera Galeana MD PCP: Martha Brown DO Status: REG CLI Study: Chest PA and Lateral Date of Exam: 02/09/15 Exam# [id number] Ordering Dr: Abby Rivera STUDY: X-RAY CHEST [...] Barrera Galeana MD at 15:21 EST Tel [phone], Service support [phone], RAD/Chest PA and Lateral IMPRESSION: Hyperinflation. No acute abnormality is seen. Electronically Signed: Barrera Galeana MD at 15:21 EST Tel [phone], Service support [phone], CC: Abby Rivera; Martha Brown DO Surface Supervisor: Signed 30-Jun-2014 Bilat Scrn Digital AND CAD Result: Comments: See Note; NOTES: [facility] Imaging Services [address] [place] [address] Breast Imaging Report MR#: [id number] Acct: [id number] Name: TITA LAW Rep #: [id number] : 1960 F 53 From: Barrera Galeana MD PCP: Martha Brown DO Status: REG CLI Study: Bilat Scrn Digital AND CAD Date of Exam: 06/30/14 Exam# [id number] Ordering Dr: Martha Brown DO MAMMOGRAPHY - [...] Galeana MD at 9 :06 EDT Tel [phone], Service support [phone], CC: Martha Brown DO Surface Supervisor: Signed 07-Oct-2013 Extremity Lower WITH Contrast Result: Comments: See Note; NOTES: [facility] Imaging Services [address] [place] [address] CAT Scan Report MR#: [id number] Acct: [id number] Name: TITA LAW Rep #: [id number] : 1960 F 53 From: Barrera Galeana MD PCP: Martha Brown DO Status: REG CLI Study: Extremity Lower WITH Contrast Date of Exam: 10/07/13 Exam# [id number] Ordering Dr: Martha Brown DO STUDY: CT [...] Barrera Galeana MD at 15:02 EDT Tel [phone], Service support [phone], CC: Martha Brown DO Surface Supervisor: Signed 25-Sep-2013 Forearm 2 Views Result: Comments: See Note; NOTES: [facility] Imaging Services [address] [place] [address] Radiology Report MR#: [id number] Acct: [id number] Name: TITA LAW Rep #: [id number] : 1960 F 53 From: Barrera Galeana MD PCP: Martha Brown DO Status: REG CLI Study: Forearm 2 Views Date of Exam: 09/25/13 Exam# [id number] Ordering Dr: Martha Brown DO STUDY: X-RAY [...] Barrera Galeana MD at 16:16 EDT Tel [phone], Service support [phone], RAD/Forearm 2 Views IMPRESSION: Normal x-ray examination of the radius and ulna. Electronically Signed: Barrera Galeana MD at 16:16 EDT Tel [phone], Service support [phone], CC: Martha Brown DO Surface Supervisor: Signed 25-Sep-2013 Hip min 2 Views Result: Comments: See Note; NOTES: [facility] Imaging Services [address] [place] [address] Radiology Report MR#: [id number] Acct: [id number] Name: TITA LAW Rep #: [id number] : 1960 F 53 From: Barrera Galeana MD PCP: Martha Brown DO Status: REG CLI Study: Hip min 2 Views Date of Exam: 09/25/13 Exam# [id number] Ordering Dr: Martha Brown DO STUDY: X-RAY [...] Barrera Galeana MD at 16:18 EDT Tel [phone], Service support [phone], Fax CC: Martha Brown DO Surface Supervisor: Signed 25-Sep-2013 Pelvis 1 or 2 Views Result: Comments: See Note; NOTES: [facility] Imaging Services [address] [facility] [place] [address] Radiology Report MR#: [id number] Acct: [id number] Name: TITA LAW Rep #: [id number] : 1960 F 53 From: Khang Braun MD PCP: Martha Brown DO Status: REG CLI Study: Pelvis 1 or 2 Views Date of Exam: 09/25/13 Exam# [id number] Ordering Dr: Martha Brown DO STUDY: X-RAY [...] MD at 16:24 EDT , Service support [phone], 0063 RAD/Pelvis 1 or 2 Views IMPRESSION: Normal x-ray examination of the pelvis. Electronically Signed: Khang Braun MD at 16:24 EDT , Service support [phone], CC: Martha Brown DO Surface Supervisor: Signed 25-Sep-2013 Thoracic Spine 3 Views Result: Comments: See Note; NOTES: [facility] Imaging Services [address] [place] [address] Radiology Report MR#: [id number] Acct: [id number] Name: TITA LAW Rep #: [id number] : 1960 F 53 From: Barrera Galeana MD PCP: Martha Brown DO Status: REG CLI Study: Thoracic Spine 3 Views Date of Exam: 09/25/13 Exam# [id number] Ordering Dr: Martha Brown DO STUDY: X-RAY [...] Ac Galeana MD at 16:19 EDT Tel [phone], Service support [phone], RAD/Thoracic Spine 3 Views IMPRESSION: Degenerative changes. Elect ronically Signed: Barrera Galeaan MD at 16:19 EDT Tel [phone], Service support [phone], CC: Martha Brown DO Surface Supervisor: Signed 24-Jun-2013 Bilat Scrn Digital & CAD Result: Comments: See Note; NOTES: [facility] Imaging Services [address] [place] [address] Breast Imaging Report MR#: [id number] Acct: [id number] Name: TITA LAW Rep #: [id number] : 1960 F 52 From: Barrera Galeana MD PCP: Martha Brown DO Status: REG CLI Exam# [id number] Ordering Dr: Shahla Myers MD MAMMOGRAPHY - [...] Barrera Galeana MD at 9:32 EDT Tel [phone], Service support [phone], F ax [phone] CC: Martha Brown DO; Shahla Myers MD Surface Supervisor: Signed 14-May-2013 Chest PA and Lateral Result: Comments: See Note; NOTES: [facility] Imaging Services [address] [place] [address] Radiology Report MR#: [id number] Acct: [id number] Name: TITA LAW Rep #: [id number] : 1960 F 52 From: Barrera Galeana MD PCP: Martha Brown DO Status: REG CLI Study: Chest PA and Lateral Date of Exam: 05/14/13 Exam# [id number] Ordering Dr: Martha Brown DO STUDY: X [...] M.D. at 14:47 EDT , Service support [phone], CC: Martha Brown DO Surface Supervisor: Signed Family History Unknown Family Member [...] smoker Vital Signs Date Test Result Details :11 Temperature 97.6 f Comments: Method: Temporal [...] kg/m2 Body Surface Area Calculated 1.76 m2 :25 Temperature 97.9 f Comments: Method: Temporal Pulse [...] kg/m2 Body Surface Area Calculated 1.8 m2 :15 Comments: ktvnzorzas777/72, 60sitting 98/56 67standing 94/58, 78 Temperature 97.5 [...] 155 lb Results Date Description Value Details 7-Iop-017428:12 CBC W/Diff, Automated Comments: [facility] [address] [place], [address] Absolute Lymph 1.71 {X10_3/ul} (Normal) Range: 0.83-4.51 [...] 4.2-5.4 WBC 8.2 K/mm3 (Normal) Range: 4.4-11.0 7-Zjw-610714:12 Comprehensive Metabolic Comments: ADD TSH ON TO 0104:[id number]:FG3-4-FHas Patient had X-rays with Contrast this admission? NIs Patient on Heparin? [facility] [address] [place], [address] Profil GAP 9 (Normal) Range: 5-15 CO2 [...] Comments: Please note revised GLUCOSE reference range bxwqtlhcu83/02/2018. 5-Zlv-627874:12 Free T3 Comments: ADD TSH ON TO 0104:[id number]:FG3-4-FHas Patient had X-rays with Contrast this admission? NIs Patient on Heparin? [facility] [address] [place], [address] FREE T3 3.5 pg/mL (Normal) Range: 2.18-3.98 5-Hrr-407047:12 Hemoglobin A1c Comments: [facility] [address] [place], [address] HGB A1C 5.8 % (Normal) Range: 4.2-6.3 2-Dav-886100:12 Lipid Profile Comments: ADD TSH ON TO 0104:[id number]:FG3-4-FHas Patient had X-rays with Contrast this admission? NIs Patient on Heparin? [facility] [address] [place], [place], [address] VLDL 15 mg/dL (Normal) Range: 5-40 LDL [...] 200-240 mg/dL Borderline >240 mg/dL High Risk 4-Ync-487424:12 T4 Free Direct Comments: ADD TSH ON TO 0104:[id number]:FG3-4-FHas Patient had X-rays with Contrast this admission? NIs Patient on Heparin? [facility] [address] [place], [address] T4 FREE DIRECT 0.99 ng/dL (Normal) Range: 0.76-1.46 4-Fet-756025:12 Thyroid Stim Hormone Comments: ADD TSH ON TO 0104:[id number]:FG3-4-FHas Patient had X-rays with Contrast this admission? NIs Patient on Heparin? [facility] [address] [place], [address] (TSH) TSH 0.15 {uIU/mL} (Abnormal) Range: 0.358-3.74 91-Pnn-611722:56 CBC W/Diff, Automated Comments: [facility] [address] [place], [address] Absolute Lymph 1.33 {X10_3/ul} (Normal) Range: 0.83-4.51 [...] 4.2-5.4 WBC 14.0 K/mm3 (Abnormal) Range: 4.4-11.0 76-Ctc-909168:56 Comprehensive Metabolic Profil Comments: [facility] [address] [place], [address] GAP 9 (Normal) Range: 5-15 CO2 26.0 [...] Comments: Please note revised GLUCOSE reference range liahmutld44/02/2018. 10-Vgv-401717:15 URINE ARELY CULTURE-IDENTIFICATN Comments: PATIENT NOT FASTINGPERFORMED BY: [facility] Zdndzj7484 [facility] [id number] Information: SRC: (44408) Result 1 NG36 (Normal) Comments: No growth in 36 - 48 hours. Urine Culture,Comprehensive Final report (Normal) 84-Mxb-853162:01 Urinalysis, Office (88432) UA - LEUKOCYTE ESTERASE Large (Normal) UA - NITRITE Positive (Normal) URINE UROBILINGN SPRING TIMED 2 mg/dL (Normal) UA - PROTEIN 300 mg/dL (Normal) UA - PH 7 (Normal) UA - BLOOD Hemolyzed Large (Normal) UA - SPECIFIC GRAVITY 1.020 (Normal) UA - KETONES 15 mg/dL (Abnormal) UA - BILIRUBIN Large (Normal) UA - GLUCOSE Negative (Normal) 6-Qtp-697347:45 Culture, Urine Comments: [facility] [address] [place], [place], [id number] CUUR See Note (Normal) Comments: Urine CultureORGANISM [...] >=320 R(NF) indicates non-formulary drug at [facility]. Approval by Infectious Disease Specialist required before non-formulary drugs may be ordered and/or dispensed. 8-Qra-328900:45 Urinalysis, Complete Comments: How was Urine Obtained? CLEAN [facility] [address] [place], [place], [address] CA OX CRYSTAL 1+ {/hpf} (Normal) MUCUS, [...] (Normal) CLARITY Cloudy (Normal) COLOR Yellow (Normal) 27-Gnl-276726:49 CBC (AUTO) (02595) Comments: PATIENT NOT FASTINGPERFORMED BY: CB [facility] Xybsid3383 [facility] [id number] Platelets 303 {x10E3/uL} (Normal) Range: 150-379 RDW 14.5 % (Normal) Range: 12.3-15.4 MCHC 33.9 g/dL (Normal) Range: 31.5-35.7 MCH 32.4 pg (Normal) Range: 26.6-33.0 MCV 96 fL (Normal) Range: 79-97 Hematocrit 37.5 % (Normal) Range: 34.0-46.6 Hemoglobin 12.7 g/dL (Normal) Range: 11.1-15.9 RBC 3.92 {x10E6/uL} (Normal) Range: 3.77-5.28 WBC 7.9 {x10E3/uL} (Normal) Range: 3.4-10.8 72-Gaj-530148:49 MICROALBUMIN: CREATININE RATIO Comments: PATIENT NOT FASTINGPERFORMED BY: [facility]6370 [facility] [id number] (14827) AND (54887) Alb/Creat Ratio 4.1 {mg/g_creat} (Normal) Range: 0.0-30.0 Comments: Normal: 0.0 - 30.0 Albuminuria: 31.0 - 300.0 Clinical albuminuria: >300.0 Albumin, Urine 6.7 ug/mL (Normal) Creatinine, Urine 161.5 mg/dL (Normal) 47-Gxd-804881:49 METABOLIC PANEL, COMPREHENSIVE Comments: PATIENT NOT FASTINGPERFORMED BY: [facility]6370 [facility] [id number]; appt 12/05 (93896) ALT (SGPT) 14 [iU]/L (Normal) Range: 0-32 [...] 6-24 Glucose 94 mg/dL (Normal) Range: 65-99 7-Dzx-783829:22 CBC W/Diff, Automated Comments: [facility] [address] [place], [place], [address] Absolute Lymph 1.79 {X10_3/ul} (Normal) Range: 0.83-4.51 [...] 4.2-5.4 WBC 6.3 K/mm3 (Normal) Range: 4.4-11.0 9-Ngi-972565:22 Comprehensive Metabolic Profil Comments: [facility] [address] [place], [address] GAP 8 (Normal) Range: 5-15 CO2 25.0 [...] Comments: Please note revised GLUCOSE reference range fsstiowfr93/02/2018. 1-Yoi-253446:22 CRP Comments: [facility] [address] [place], [id number] C-REACTIVE PROT < 2.90 mg/L (Normal) Range: 0.0-3.0 Comments: C-Reactive Protein (CRP) provides useful information for thediagnosis, therapy and monitoring of inflammatory processesand associated diseases. For the evaluation of Relative Riskfor Cardiovascular Dise ase, a High Sensitivity CRP (HSCRP)should be ordered. 7-Gmo-178627:22 Erythrocyte Sed Rate Comments: [facility] [address] [place], [id number] SED RATE 3 mm/h (Normal) Range: 0-30 4-Cew-070460:22 Hemoglobin A1c Comments: [facility] [address] [place], [address] HGB A1C 5.7 % (Normal) Range: 4.2-6.3 6-Qne-673632:22 Lipid Profile Comments: [facility] [address] [place], [address] VLDL 21 mg/dL (Normal) Range: 5-40 LDL [...] 200-240 mg/dL Borderline >240 mg/dL High Risk 9-Ilf-558509:22 Vitamin D,25 Hydroxy Comments: [facility] [address] [place], [address] Vitamin D 25-OH 36.0 ng/mL (Normal) Range: 29.95-100.01 Comments: Vitamin D 25(OH) Status Range Deficiency <20 ng/mL (50nmol/L) Insuffciency 20 - 30 ng/mL (50 - 75 nmol/L) Sufficiency 30 - 100 ng/mL (75 - 250 nmol/L) Toxicity >100 ng/mL (>250 nmol/L) 27-Cwr-367666:37 CBC W/Diff, Automated Comments: [facility] [address] [place], [address] ; appt 5/2 Absolute Lymph 2.05 {X10_3/ul} [...] 4.2-5.4 WBC 5.5 K/mm3 (Normal) Range: 4.4-11.0 48-Cfl-507346:37 Comprehensive Metabolic Profil Comments: [facility] [address] [place], [address] GAP 8 (Normal) Range: 5-15 CO2 24.0 [...] Comments: Please note revised GLUCOSE reference range ngagmugjq73/02/2018. 25-Swc-990491:37 Hemoglobin A1c Comments: [facility] [address] [place], [address] HGB A1C 5.9 % (Normal) Range: 4.2-6.3 66-Hal-012241:37 Lipid Profile Comments: [facility] [address] [place], [address] VLDL 16 mg/dL (Normal) Range: 5-40 LDL [...] 200-240 mg/dL Borderline >240 mg/dL High Risk 06-Vka-600630:06 METABOLIC PANEL, COMPREHENSIVE Comments: PATIENT NOT FASTINGPERFORMED BY: [facility] [address]elandEvylzu5105 [facility] [id number] (31744) ALT (SGPT) 19 [iU]/L (Normal) Range: 0-32 [...] Glucose, Serum 84 mg/dL (Normal) Range: 65-99 64-Kqf-304123:26 CBC W/Diff, Automated Comments: [facility] [address] [place], [place], [address] ; patient coming in today Absolute Lymph [...] 4.2-5.4 WBC 10.1 K/mm3 (Normal) Range: 4.4-11.0 75-Sbb-855555:26 EBV Acute Prof IgG / IgM Comments: [...] Antibody Ab sentPerformed at: [facility] [address] [id number] Director: Sean Daniel PhD, Phone: [phone] EB-NAg HsH87989 > 600.0 U/mL (Abnormal) Range: 0.0-17.9 Comments: Negative <18.0 Equivocal 18.0 - 21.9 Positive >21.9 EB-VCA [id number] 226.0 U/mL (Abnormal) Range: 0.0-17.9 Comments: Negative <18.0 Equivocal 18.0 - 21.9 Positive >21.9 EB-EA IgG 69280 49.1 U/mL (Abnormal) Range: 0.0-8.9 Comments: Hepatitis A, Hepatitis C and HIV antibodies may cross-reactwith this assay. Negative < 9.0 Equivocal 9.0 - 10.9 Positive >10.9 EB-VCA [id number] < 36.0 U/mL (Normal) Range: 0.0-35.9 Comments: Negative <36.0 Equivocal 36.0 - 43.9 Positive >43.9 32-Hil-730022:37 Basic Metabolic Profile (BMP) Comments: [facility] V[address]xh[address]upaab[address] [place], [address] GAP 8 (Normal) Range: 5-15 CO2 23.0 [...] A.D.A. criteria.Please note revised GLUCOSE reference range kgootuqmt76/02/2018. 77-Ymq-441076:37 CBC W/Diff, Automated Comments: [facility] Xcpsycbsss[address] [place], [address] Absolute Lymph 2.00 {X10_3/ul} (Normal) Range: 0.83-4.51 [...] 4.2-5.4 WBC 8.8 K/mm3 (Normal) Range: 4.4-11.0 96-Vea-324219:30 CBC With Differential/Platelet Comments: PERFORMED BY: JUAN LUIS [employer] [facility] [id number] Information: [facility] PATIENT - NURSE Immature Grans [...] 3.77-5.28 WBC 6.8 {x10E3/uL} (Normal) Range: 3.4-10.8 33-Qrq-367064:30 Comp. Metabolic Panel (14) Comments: PERFORMED BY: JUAN LUIS [place] [id number]; can review at upcoming appt ALT (SGPT) [...] Glucose, Serum 98 mg/dL (Normal) Range: 65-99 80-Tny-201735:21 TSH (69623) Comments: PATIENT NOT FASTINGPERFORMED BY: [facility]6370 [facility] [id number] TSH 2.830 {uIU/mL} (Normal) Range: 0.450-4.500 70-Abh-114045:21 T3, FREE (TRIDOTHYRONINE) (58230) Comments: PATIENT NOT FASTINGPERFORMED BY: [facility]6370 [facility] [id number] Triiodothyronine,Free,Serum 2.6 pg/mL (Normal) Range: 2.0-4.4 50-Evu-211994:21 T4, FREE (THYROXINE) (31423) Comments: PATIENT NOT FASTINGPERFORMED BY: [facility] Vhxejq1452 [address] [place] [id number] T4,Free(Direct) 1.12 ng/dL (Normal) Range: 0.82-1.77 73-Nny-16344:32 CBC W/Diff, Automated Comments: [facility] Uysydmizxl[address] [place], [address] Absolute Lymph 3.84 {X10_3/ul} (Normal) Range: 0.83-4.51 [...] 4.4-11.0 :32 Comprehensive Metabolic Profil Comments: [facility] Hdzgjtayye[address] [place], [place], [id number] ; non-emergent till next weeks apt GAP [...] Range: 70-110 :32 Hemoglobin A1c Comments: [facility] Pfbmelgnql64[address] [place], [address] HGB A1C 6.2 % (Normal) Range: 4.2-6.3 :32 Lipid Profile Comments: [facility] Eiwwlbyxdz488[address] [place], [place], [address] VLDL 19 mg/dL (Normal) Range: 5-40 LDL [...] 200-240 mg/dL Borderline >240 mg/dL High Risk 51-Hvo-71756:36 CBC W/Diff, Automated Comments: [facility] Nbulzbjvbc40[address] [place], [place], [address] Absolute Lymph 2.01 {X10_3/ul} (Normal) Range: 0.83-4.51 [...] 4.4-11.0 :36 Comprehensive Metabolic Profil Comments: [facility] Ukfddoolfl67[address] [place], [place], [address] GAP 10 (Normal) Range: 5-15 CO2 25.0 [...] (Normal) Range: 70-110 :36 CRP Comments: [facility] Pspwlzxmnx[address], [address] C-REACTIVE PROT < 2.90 mg/L (Normal) Range: 0.0-3.0 Comments: C-Reactive Protein (CRP) provides useful information for thediagnosis, therapy and monitoring of inflammatory processesand associated diseases. For the evaluation of Relative Riskfor Cardiovascular Dise ase, a High Sensitivity CRP (HSCRP)should be ordered. :36 Culture, Urine Comments: [address] [place], [address] CUUR See Note (Normal) Comments: Urine CultureCOLONY COUNT 400 CFU/ML Below infection level. ORGANISM 1: GNR Poss Pseudomonas spColony Count <1000 :36 Erythrocyte Sed Rate Comments: [address] [place], [id number] SED RATE 5 mm/h (Normal) Range: 0-30 :36 Free T3 Comments: [address] [place], [address] FREE T3 2.4 pg/mL (Normal) Range: 2.18-3.98 :36 Rheumatoid Factor Comments: [address] [place], [address] RHEUMATOID FAC < 10.0 {IU/mL} (Normal) :36 T4 Free Direct Comments: [address] [place], [address] T4 FREE DIRECT 1.09 ng/dL (Normal) Range: 0.76-1.46 :36 Thyroid Stim Hormone (TSH) Comments: [address] [place], [address] TSH 0.08 {uIU/mL} (Abnormal) Range: 0.358-3.74 :36 Uric Acid Comments: [address] [place], [address] URIC 3.6 mg/dL (Normal) Range: 2.6-6.0 Comments: The drugs N-Acetylcysteine and Metamizole may falsely deressthis assay. 86-Jgo-04914:30 URINE ARELY CULTURE-SPRING COL Comments: PERFORMED BY: [facility]6370 [facility] [id number] Information: SRC:UR COUNT (95000) Result 1 MUG (Normal) Comments: Mixed urogenital flora1,000 Colonies/mL Urine Culture,Comprehensive Final report (Normal) 43-Nir-389604:20 Urinalysis, Office (52816) UA - LEUKOCYTE ESTERASE Negative (Normal) UA - NITRITE Negative (Normal) URINE UROBILINGN SPRING TIMED Normal mg/dL (Normal) UA - PROTEIN Negative mg/dL (Normal) UA - PH 7 (Normal) UA - BLOOD Negative (Normal) UA - SPECIFIC GRAVITY 1.015 (Normal) UA - KETONES Negative mg/dL (Normal) UA - BILIRUBIN Negative (Normal) UA - GLUCOSE Negative (Normal) 3-Aax-636753:52 ARELY CULTURE-OTHER (56065) Comments: PATIENT NOT FASTINGPERFORMED BY: [facility] [place] [address] [id number] Information: THROAT SRC:TH Result 1 RRF (Normal) Comments: Routine respiratory kaylene Upper Respiratory Culture Final report (Normal) 3-Ajy-324684:07 Rapid Strep Test, Office (79541) Rapid Strep Test, Negative (Normal) Office 47-Yld-818248:2 Magnesium, Serum 2.0 mg/dL (Normal) Comments: PATIENT NOT FASTINGPERFORMED BY: [facility] [place] [address] [id number] Information: SRC:UC 1 Range: 1.6-2.3 62-Znf-666875:21 Microscopic Examination Comments: PATIENT NOT FASTINGPERFORMED BY: [facility] [place] [address] [id number] BY: [address] [place] [address] [id number] Bacteria None seen (Normal) Epithelial Cells (non None seen {/hpf} Range: 0 - 10 renal) (Normal) RBC 0-2 {/hpf} Range: 0 - 2 (Normal) WBC 0-5 {/hpf} Range: 0 - 5 (Normal) Sodium, Urine <20 mmol/L Comments: PATIENT NOT FASTINGPERFORMED BY: [facility] Hrhddn1088 [facility] [id number] BY: [address] [place] [address] [id number] 4:21 (Normal) Written Authorization WAR (Normal) Comments: PATIENT NOT FASTINGPERFORMED BY: [facility] Tzplsy9297 [facility] [id number] 4:21 Comments: Written Authorization Received.Authorization received from YURIY VERNON LPN [id number] by Tg Stewart 15-Iwv-763371:21 URINE ARELY CULTURE-IDENTIFICATN Comments: PATIENT NOT FASTINGPERFORMED BY: LabSarah [place] 8764670 [facility] [id number] BY: [address] [place] [address] [id number] (08729) Result 1 NG36 (Normal) Comments: No growth in 36 - 48 hours. Urine Culture,Comprehensive Final report (Normal) 66-Syv-355381:21 URINALYSIS, W/ MICRO Comments: PATIENT NOT FASTINGPERFORMED BY: [facility]Core[facility]6370 [facility] [id number] BY: [address] [place] [address] [id number] Information: SRC:UC (15141) Microscopic Examination See below: (Normal) Comments: Microscopic was indicated and was performed. Microscopic Examination MICRON (Normal) Comments: Microscopic follows if indicated. Nitrite, Urine Negative (Normal) Urobilinogen,Semi-Qn 0.2 mg/dL (Normal) Range: 0.2-1.0 Bilirubin Negative (Normal) Occult Blood Negative (Normal) Ketones Negative (Normal) Glucose Negative (Normal) Protein Negative (Normal) WBC Esterase Negative (Normal) Appearance Clear (Normal) Urine-Color Yellow (Normal) pH 7.0 (Normal) Range: 5.0-7.5 Specific Henderson 1.007 (Normal) Range: 1.005-1.030 21-Sbs-205479:21 OSMOLALITY URINE (89299) Comments: PATIENT NOT FASTINGPERFORMED BY: LabCoAmber Ville 1979970 [facility] [id number] BY: [address] [place] [address] [id number] Osmolality, Urine 98 {mOsmol/kg} (Normal) Comments: 24 hr : 300 - 900 Random: 50 - 1400 After 12hr fluid restriction: >850 22-Lly-602268:21 OSMOLALITY BLOOD (20723) Comments: PATIENT NOT FASTINGPERFORMED BY: [facility] LabCoAmber [place] 1979970 [facility] [id number] BY: Lab[address] [id number] Osmolality 265 {mOsmol/kg} (Abnormal) Range: 275-295 67-Rus-896660:21 SODIUM SERUM (61723) Comments: PATIENT NOT FASTINGPERFORMED BY: LabTrialScoperp Tffsld7851 [facility] [id number] BY: [address] [id number] Sodium, Serum 132 mmol/L (Abnormal) Range: 134-144 06-Nlb-941271:15 Comprehensive Metabolic Profil Comments: [facility] Zdsxrhxotn20[address] [place], [address] GAP 9 (Normal) Range: 5-15 CO2 25.0 [...] 7-18 GLU 86 mg/dL (Normal) Range: 70-110 86-Zgf-599219:15 Free T3 Comments: [facility] [address] [place], [address] FREE T3 2.3 pg/mL (Normal) Range: 2.18-3.98 88-Cyq-381097:15 Phosphorus Comments: [facility] [address] [place], [place], [address](553) PHOS 2.9 mg/dL (Normal) Range: 2.5-4.9 59-Nof-858848:15 PTH,INTACT Comments: [facility] [address] [place], [address] PTH,Intact 35 pg/mL (Normal) Range: 14-72 20-Nwr-940383:15 T4 Free Direct Comments: [facility] [address] [place], [address] T4 FREE DIRECT 1.06 ng/dL (Normal) Range: 0.76-1.46 27-Cou-344185:15 Thyroid Stim Hormone (TSH) Comments: [facility] O[address] [place], [address] TSH 5.47 {uIU/mL} (Abnormal) Range: 0.358-3.74 91-Pko-861004:15 Vitamin D,25 Hydroxy Comments: [facility] Lmvvoyvsln73[address] [place], [address] Vitamin D 25-OH 38.0 ng/mL (Normal) Comments: Vitamin D 25(OH) Status Range Deficiency <20 ng/mL (50nmol/L) Insuffciency 20 - 30 ng/mL (50 - 75 nmol/L) Sufficiency 30 - 100 ng/mL (75 - 250 nmol/L) Toxicity >100 ng/mL (>250 nmol/L) 2-Vna-464195:31 Comprehensive Metabolic Profil Comments: [facility] Rvqllpemgm5[address] [place], [address] GAP 11 (Normal) Range: 5-15 CO2 24.0 [...] (Normal) Range: 70-110 :31 Free T3 Comments: [facility] Noxzifdtrt47[address] [place], [address] FREE T3 2.3 pg/mL (Normal) Range: 2.18-3.98 5-Wol-994233:31 Hemoglobin A1c Comments: [facility] Opfdwspdfp46[address] [place], [address] HGB A1C 5.7 % (Normal) Range: 4.2-6.3 2-Nck-448089:31 Lipid Profile Comments: [facility] Zymzfqjvtu60[address] [place], [address] VLDL 19 mg/dL (Normal) Range: 5-40 LDL [...] 200-240 mg/dL Borderline >240 mg/dL High Risk :31 Microalb:Creat Ratio,Random UR Comments: [facility] Sudvmcjvmc[address] [place], [place], [address] MALB:CREAT 5.4 {mg/g_CRE} (Normal) MICROALBUMIN,UR 6.7 mg/L (Normal) UR CREAT 124.00 mg/dL (Normal) :31 T4 Free Direct Comments: [facility] Pawmtefuyl[address] [place], [place], [address] T4 FREE DIRECT 0.70 ng/dL (Abnormal) Range: 0.76-1.46 4-Lyr-464181:31 Thyroid Stim Hormone (TSH) Comments: [facility] Kbztyqmtes12[address] [place], [place], [address] TSH 4.87 {uIU/mL} (Abnormal) Range: 0.358-3.74 :49 [facility] Vegetable Thinner AB, Blocking Comments: [facility] (refer to report for specific site)refer to report for address and phone number [facility] REC 85778 19 % (Normal) Range: 0-25 Comments: Negative: 0 - 25 Borderline: 26 - 30 Positive: >30Results for this test are for research purposesonly by the assay's [facility]. The performancecharacteristics of this product have not beenestablished. Results should not be used as adiagnostic procedure without confirmation of thediagnosis by another medically establishe ddiagnostic product or procedure.Performed at: - [address] [id number] Director: Eusebio Live MD, Phone: [phone] :49 Lyme Antibodies,W Blot Comments: [facility] (refer to report for specific [...] positivity are those recommended byCDC/ASTPHLD. p23=Osp C, c01=dcsxmhrhxEedv:Sera from individuals with the following may cross [...] (Normal) :39 Acid Fast Bact Cult/Sm Comments: [facility] Rod[address]jwu[address] [place], [address] AFBCS See Note Comments: AFB Smear/Fluor TESTING [facility]FOR[facility] AT [facility]. ORIGINAL REPORT ON FILE IN LAB CONTAINS ADDITIONAL TEST SITE INFORMATION. (Normal) Smear, Acid Fast NO ACID-FAST BACILLI OBSERVED ON SMEAR. AFB Cult TESTING PERFORMED AT [facility]. ORIGIN AL REPORT ON FILE IN LAB CONTAINS ADDITIONAL TEST SITE INFORMATION. Culture, Acid Fast NO ACID-FAST BACILLI ISOLATED AFTER 6 WEEKS. :39 Body Fluid Cell Count+Diff Comments: Specimen Source: [facility] Ozdiaqmicl[address] [address] [place], [address] PATH COMM/BF May follow (Normal) BF PMN [...] Body Fluid / CSF Comments: Specimen Source: [facility] [address]wgm[address] [place], [place], [address] CYTOLOGY,BF/CSF SEE PATHOLOGY REPORT Comments: Specimen submitted to Anatomical Pathology Department [facility]. (Normal) :39 CYTOSPIN ON FLUID See Note (Normal) Comments: [facility] [address] [place], [place], [address] Comments: Patient: TITA LAW : 1960 (55/F) Acct Num: [id number] Phys: Abdias Barr NPhelle Unit Num: [id number] Loc: [facility] Specimen: [id number] Received: 03/15/16 - 1239 Spec Type: CYSPIN FL TISSUES TISSUES: CYTOLOGY GROSS Received is 3 ml of clear, colorless fluid labeled with the patient's name and and designated per the requisition as CSF. Submitted f or cytology preparation. 03/15/16 TC:4 CPT: 90824 CYTOLOGY STUDY Slides are reviewed. DIAGNOSIS CYTOLOGY Cerebrospinal fluid (cytospins): The specimen is acellular. JOSEFINA:tiffanie 7 HEADER OPERATION: Lumbar puncture PRE-OP DIAGNOSIS: Rule out MS TISSUE SUBMITTED: Cerebrospinal fluid Signed Christian Pittsin 03/16/16 <signature on file> :39 Glucose Spinal Fluid Comments: Comments: PROTEIN ELCTRO-CSF LC#[id number] Source? [facility] [address]rktrtzlc[address] [place], [address] GLU SPINAL FLD 57 mg/dL (Normal) Range: 40-75 :39 Miscellaneous Lab Procedure Comments: Comments: PROTEIN ELCTRO- CSF LC#[id number](s) Ordered: PROTEIN ELCTRO-CSF LC#[id number] Oxakeegtta79[address] [place], [address] MIS Comments: TEST RESULT UNITS REFERENCE INTERVALProtein Electrophoresis, CSFProtein, Total, CSF 36.7 mg/dL 0.0 - 44.0Pre- Albumin (CSF) 2.6 % 2.2 - 7.1Albumin LAB (Normal) (CSF) 68.5 % 56.8 - 76.5Bnlnu-7-Xoiwflrg CSF 3.9 % 1.1 - 6.7Pxvgo-3-Rnyddhgi CSF 4.6 % 3.0 - 12.6Beta Globulin (CSF) 15.0 % 7 TEST .3 - 17.9Gamma Globulin (CSF) 5.5 % 3.0 - 13.0Protein electrophoresis scan will follow via computer, mail,or roller turner delivery.M-Logan Not Observed % Not Observed__ TESTING PERFORMED AT [facility]. ORIGINAL REPORT ON FILE IN LAB CONTAINS ADDITIONAL TEST SITE INFORMATION. :39 Myelin Basic Protein, MBP Comments: [facility] (refer to report for specific site)refer to report for address and phone number MBP [id number] 1.8 ng/mL (Abnormal) Range: 0.0-1.2 Comments: Results for this test are for research purposes only by theassay's buckshot swage operator. The performance characteristics ofthis product have not been established. Results should notbe used as a diagnostic pro cedure without confirmation ofthe diagnosis by another medically established diagnosticproduct or procedure. :39 Protein Spinal Fluid Comments: Comments: PROTEIN ELCTRO-CSF #[id number] Source? [facility] [address]tezsewrl[address] [place], [place], [address] PROTEIN CSF 38.0 mg/dL (Normal) Range: 15.0-45.0 [...] using IsoelectricFocusing (IEF) and immunoblotting methodology.Performed at: [address] [id number] Director: Saen Daniel PhD, Phone: [phone] OLIG BAND REF LAB (Normal) 34-Jat-47624:04 Protein Electroph, S Comments: [facility] (refer to report for specific site)refer to report for address and phone number NOTE: Comment (Normal) Comments: The SPE pattern appears essentially unremarkable. Evidenceof monoclonal protein is not apparent. INTERPRETATION Comment (Normal) Comments: Protein electrophoresis scan will follow via computer,mail, or roller turner delivery. A/G RATIO 1.4 (Normal) Range: 0.7-1.7 GLOBULIN, TOTAL 2.8 g/dL (Normal) Range: 2.2-3.9 M-SPIKE g/dL (Normal) Comments: Not Observed GAMMA GLOBULIN 0.9 g/dL (Normal) Range: 0.4-1.8 BETA GLOBULIN 0.9 g/dL (Normal) Range: 0.7-1.3 ALPHA-2 GLOBUL 0.7 g/dL (Normal) Range: 0.4-1.0 ALPHA-1 GLOBUL 0.2 g/dL (Normal) Range: 0.0-0.4 ALBUMIN 3.9 g/dL (Normal) Range: 2.9-4.4 PROTEIN,TOTAL 6.7 g/dL (Normal) Range: 6.0-8.5 0-Flv-985046:15 CBC W/Diff, Automated Comments: DR VILLAFANA ORDERED CBCD/CMPDR FAST ORDERED BMP/FT3/FT4/TSHDR TRES ORDERED CBCD/CMPDR FAST ORDERED BMP/FT3/FT4/[facility] [address]tts[address] [place], [address] Absolute Lymph 1.41 {X10_3/ul} (Normal) [...] 4.2-5.4 WBC 8.2 K/mm3 (Normal) Range: 4.4-11.0 7-Crw-794067:15 Comprehensive Metabolic Profil Comments: DR VILLAFANA ORDERED CBCD/CMPDR FAST ORDERED BMP/FT3/FT4/[facility] Tfcoepxkkw[address] [place], [address] GAP 9 (Normal) Range: 5-15 [...] 7-18 GLU 92 mg/dL (Normal) Range: 70-110 3-Mcu-514818:15 Free T3 Comments: DR VILLAFANA ORDERED CBCD/CMPDR FAST ORDERED BMP/FT3/FT4/[facility] Qjnknyfesb6972 [place], [place], [address] FREE T3 2.2 pg/mL (Normal) Range: 2.18-3.98 4-Jvv-358890:15 T4 Free Direct Comments: DR VILLAFANA ORDERED CBCD/CMPDR FAST ORDERED BMP/FT3/FT4/[facility] Gkvgpletaq9818 [place], [address] T4 FREE DIRECT 0.96 ng/dL (Normal) Range: 0.76-1.46 0-Uxp-530770:15 Thyroid Stim Hormone (TSH) Comments: DR VILLAFANA ORDERED CBCD/CMPDR FAST ORDERED BMP/FT3/FT4/[facility] [address]bfivwt[address] [place], [address] TSH 0.13 {uIU/mL} (Abnormal) Range: 0.358-3.74 92-Aam-714590:21 Metabolic Panel, Basic Comments: PATIENT NOT FASTINGPERFORMED BY: [facility] Hbfvxt6382 [facility] [id number] (29822) Calcium, Serum 9.5 mg/dL (Normal) Range: 8.7-10.2 [...] Glucose, Serum 85 mg/dL (Normal) Range: 65-99 97-Cir-750262:21 TSH (32191) Comments: PATIENT NOT FASTINGPERFORMED BY: [facility] Ckjaxy4523 [facility] [id number] TSH 0.031 {uIU/mL} (Abnormal) Range: 0.450-4.500 33-Sqx-254265:21 T3, FREE (TRIDOTHYRONINE) (52928) Comments: PATIENT NOT FASTINGPERFORMED BY: [facility] Ffpgbb6041 [facility] [id number] Triiodothyronine,Free,Serum 3.3 pg/mL (Normal) Range: 2.0-4.4 25-Acz-151615:21 T4, FREE (THYROXINE) (03707) Comments: PATIENT NOT FASTINGPERFORMED BY: [facility] Gkezmu6074 [facility] [id number] T4,Free(Direct) 1.52 ng/dL (Normal) Range: 0.82-1.77 :56 CBC W/Diff, Automated Comments: [facility] [address] [place], [place], [address] Absolute Lymph 1.43 {X10_3/ul} (Normal) Range: 0.83-4.51 [...] Range: 4.4-11.0 :56 Comprehensive Metabolic Profil Comments: [facility] [address] [place], [place], [address] GAP 9 (Normal) Range: 5-15 CO2 26.0 [...] Range: 70-110 :56 Hemoglobin A1c Comments: [facility] Edmwfhwjhx8045 [facility], [address] HGB A1C 5.4 % (Normal) Range: 4.2-6.3 :56 Microalb:Creat Ratio,Random UR Comments: [facility] Nznadnyefy4216 [facility], [address] MALB:CREAT Test not performed {mg/g_CRE} (Normal) MICROALBUMIN,UR [...] the US Food and Drug Administration.Performed at: [facility] n14[address] [place], [place] [id number] Director: Eusebio Live MD, Phone: [phone] INS RES/DIAB RK . (Normal) LDL SIZE [...] mg/dL (Abnormal) Range: 100-199 LIPIDS . (Normal) 84-Wkt-028931:26 Microscopic Examination Comments: PATIENT NOT FASTINGPERFORMED BY: [employer]6370 [facility] [id number] Bacteria Few (Normal) Epithelial Cells (non renal) 0-10 {/hpf} (Normal) Range: 0 - 10 RBC 0-2 {/hpf} (Normal) Range: 0 - 2 WBC 0-5 {/hpf} (Normal) Range: 0 - 5 89-Ecu-988839:26 METABOLIC PANEL, COMPREHENSIVE Comments: PATIENT NOT FASTINGPERFORMED BY: [employer] [facility] [id number] (94495) ALT (SGPT) 23 [iU]/L (Normal) Range: 0-32 [...] Glucose, Serum 84 mg/dL (Normal) Range: 65-99 17-Ujg-272152:26 URINE ARELY CULTURE-IDENTIFICATN Comments: PATIENT NOT FASTINGPERFORMED BY: [facility] Sqowtz6316 [facility] [id number] (75447) Result 1 NG36 (Normal) Comments: No growth in 36 - 48 hours. Urine Culture,Comprehensive Final report (Normal) 64-Smm-543365:26 CBC W/AUTO DIFF WBC Comments: PATIENT NOT FASTINGPERFORMED BY: [facility] Uhsows8708 [facility] [id number] Information: SRC:THAD (15511) Immature Grans (Abs) 0.0 {x10E3/uL} (Normal) Range: [...] (Normal) Range: 3.4-10.8 :26 URINALYSIS, W/ MICRO (03621) Comments: PATIENT NOT FASTINGPERFORMED BY: [facility] VinelandSxjqiv9070 [facility] [id number] Microscopic Examination See below: (Normal) Comments: Microscopic was indicated and was performed. Microscopic Examination MICRON (Normal) Comments: Microscopic follows if indicated. Nitrite, Urine Negative (Normal) Urobilinogen,Semi-Qn 0.2 mg/dL (Normal) Range: 0.2-1.0 Bilirubin Negative (Normal) Occult Blood Negative (Normal) Ketones Negative (Normal) Glucose Negative (Normal) Protein Negative (Normal) WBC Esterase Negative (Normal) Appearance Clear (Normal) Urine-Color Yellow (Normal) pH 7.5 (Normal) Range: 5.0-7.5 Specific Henderson 1.005 (Normal) Range: 1.005-1.030 :53 Partial Thromboplast Time Comments: [facility] [address] [place], [place], [address] PTT 34.1 s (Normal) Range: 24.1-36.2 :53 Prothrombin Time w/INR Comments: [address] [place], [place], [address] INR 1.1 (Normal) PROTIME 14.1 s (Normal) Range: 11.7-14.9 :43 CBC W/Diff, Automated Comments: [address] [place], [address] Absolute Lymph 1.00 {X10_3/ul} (Normal) Range: 0.83-4.51 [...] 4.2-5.4 WBC 16.5 K/mm3 (Abnormal) Range: 4.4-11.0 63-Dmd-191118:43 Comprehensive Metabolic Profil Comments: [facility] [address]ibxe[address] [place], [address] GAP 11 (Normal) Range: 5-15 CO2 [...] 7-18 GLU 82 mg/dL (Normal) Range: 70-110 19-Qoc-019476:43 Lactic Acid Comments: [facility] [address]kitjmwngr[address] [place], [address] LACTIC ACID 1.5 mmol/L (Normal) Range: 0.4-2.0 2-Zyo-274996:06 Metabolic Panel, Basic (97788) Comments: PATIENT NOT FASTINGPERFORMED BY: [facility] Ummlcj9295 [facility] [id number] Calcium, Serum 9.9 mg/dL (Normal) Range: 8.7-10.2 [...] Glucose, Serum 82 mg/dL (Normal) Range: 65-99 3-Yge-688347:06 PHOSPHORUS (82082) Comments: PATIENT NOT FASTINGPERFORMED BY: Holvi Myomvk[address]167 [address] [place] [id number] Phosphorus, Serum 3.8 mg/dL (Normal) Range: 2.5-4.5 4-Qxd-460737:06 PARATHORMONE (65869) Comments: PATIENT NOT FASTINGPERFORMED BY: Holvi Skdvzu5719 [address] [place] [id number] PTH, Intact 30 pg/mL (Normal) Range: 15-65 6-Xwq-470124:06 SPEP (66340) Comments: PATIENT NOT FASTINGPERFORMED BY: Holvi Pjpwmu5697 [address] [place] [id number] Information: [id number] Please note: SPRCS (Normal) Comments: Protein electrophoresis scan will follow via computer, mail, orcourier delivery. A/G Ratio 1.4 (Normal) Range: 0.7-1.7 Globulin, Total 3.1 g/dL (Normal) Range: 2.2-3.9 M-Logan Not Observed g/dL (Normal) Gamma Globulin 1.1 g/dL (Normal) Range: 0.4-1.8 Beta Globulin 1.0 g/dL (Normal) Range: 0.7-1.3 Rryxa-7-Jjxdwpfz 0.8 g/dL (Normal) Range: 0.4-1.0 Ohiix-9-Julmqajl 0.3 g/dL (Normal) Range: 0.0-0.4 Albumin 4.4 g/dL (Normal) Range: 2.9-4.4 Protein, Total, Serum 7.5 g/dL (Normal) Range: 6.0-8.5 4-Ofx-573067:06 UPEP (64482) Comments: PATIENT NOT FASTINGPERFORMED BY: Holvi Qepewr6215 [facility] [id number] Please note: SPRCS (Normal) Comments: Protein electrophoresis scan will follow via computer, mail, orcourier delivery. M-Logan, % Not Observed % (Normal) Gamma Globulin, U 43.5 % (Normal) Beta Globulin, U 33.9 % (Normal) Hognm-1-Eaoqnycw, U 9.6 % (Normal) Mtmjs-1-Geadadvj, U 0.8 % (Normal) Albumin, U 12.1 % (Normal) Protein,Total,Urine <4.0 mg/dL (Normal) Comments: Verified by repeat analysis 0-Vot-088075:23 URINE CALCIUM SPRING TIMED Comments: PATIENT NOT FASTINGPERFORMED BY: [place] 1926270 [facility] [id number] Information: [id number] 24 Hour (73408) Calcium, Urine 24hr 133.5 {mg/24_hr} (Normal) Range: 100.0-300.0 Calcium, Urine 3.0 mg/dL (Normal) :08 METABOLIC PANEL, Comments: PATIENT NOT FASTINGPERFORMED BY: [facility]6370 [facility] [id number] Information: [id number] COMPREHENSIVE (12305) ALT (SGPT) 15 [iU]/L (Normal) Range: 0-32 [...] mg/dL (Normal) Range: 65-99 :34 Urinalysis, Office (68349) UA - LEUKOCYTE ESTERASE Negative (Normal) UA [...] CULTURE (SPRING Comments: PATIENT NOT FASTINGPERFORMED BY: [facility] VinelandOklsoh6243 [facility] [id number] Information: SRC:[facility] [id number] COL COUNT) (82549) Result 1 NG36 (Normal) Comments: No growth in 36 - 48 hours. Urine Culture,Comprehensive Final report (Normal) 74-Rjo-473473:00 CBC W/Diff, Automated Comments: [facility] [address] [place], [address] Absolute Lymph 1.49 {X10_3/ul} (Normal) Range: 0.83-4.51 [...] 4.2-5.4 WBC 6.2 K/mm3 (Normal) Range: 4.4-11.0 18-Xrh-262416:00 Comprehensive Metabolic Profil Comments: [facility] [address]jhwfoh[address] [place], [place], [id number] GAP 5 (Normal) Range: 5-15 CO2 28.0 [...] 7-18 GLU 93 mg/dL (Normal) Range: 70-110 90-Mth-113207:00 Free T3 Comments: [facility] [address]bb[address] [place], [address] FREE T3 2.9 pg/mL (Normal) Range: 2.18-3.98 28-Qzt-231011:00 T4 Free Direct Comments: [facility] [address] [place], [place], [address] T4 FREE DIRECT 1.07 ng/dL (Normal) Range: 0.76-1.46 04-Mmv-743806:00 Thyroid Stim Hormone (TSH) Comments: [facility] [address]om[address] [place], [place], [address] TSH 0.16 {uIU/mL} (Abnormal) Range: 0.358-3.74 :38 HGB A1C (96285) Comments: PATIENT NOT FASTINGPERFORMED BY: [employer]70 [facility] [id number] Information: [id number] Hemoglobin A1c 5.7 % (Abnormal) Range: 4.8-5.6 Comments: . Pre-diabetes: 5.7 - 6.4 Diabetes: >6.4 Glycemic control for adults with diabetes: <7.0 David Arce BMP8 SPRCS (Normal) Comments: A courtesy copy of this report has been sent toT [facility].PATIENT WAS FASTINGPERFORMED BY: [employer] [facility] [id number] :51 Default Comments: A hand-written panel/profile was received from your office. Inaccordance with the [facility] Ambiguous Test Code Policy dated August2002, we have completed your order by using the closest currentlyor formerl y recognized AMA panel. We have assigned Basic MetabolicPanel (8), Test Code #845398 to this request. If this is not thetesting you wished to receive on this specimen, please contact [facility] Client Inquiry/Technical Services Department to clarify thetest order. We appreciate your business. David Arce LP Default SPRCS (Normal) Comments: A courtesy copy of this report has been sent [facility].PATIENT WAS FASTINGPERFORMED BY: [place] 1926270 [facility] [id number] :51 Comments: A hand-written panel/profile was received from your office. Inaccordance with the [facility] Ambiguous Test Code Policy dated August2002, we have completed your order by using the closest currentlyor formerl y recognized AMA panel. We have assigned Lipid Panel,Test Code #419951 to this request. If this is not the testing youwished to receive on this specimen, please contact the [facility] Inquiry/Techni alberto Services Department to clarify the testorder. We appreciate your business. :51 CBC With Differential/Platelet Comments: A courtesy copy of this report has been sent [facility].PATIENT WAS FASTINGPERFORMED BY: [facility]6370 [facility] [id number] Immature Grans (Abs) 0.0 {x10E3/uL} (Normal) Range: [...] 3.77-5.28 WBC 4.8 {x10E3/uL} (Normal) Range: 3.4-10.8 96-Gjo-094930:51 Comp. Metabolic Panel (14) Comments: A courtesy copy of this report has been sent toT [facility].PATIENT WAS FASTINGPERFORMED BY: [facility] VinelandBivfmm2353 [facility] [id number] ALT (SGPT) 14 [iU]/L (Normal) Range: 0-32 [...] Glucose, Serum 101 mg/dL (Abnormal) Range: 65-99 90-Qgp-763873:51 Lipid Panel Comments: A courtesy copy of this report has been sent [facility].PATIENT WAS FASTINGPERFORMED BY: Dwolla Yrnhdb8443 [facility] [id number]; non-emergent till apt LDL Cholesterol Calc 120 [...] copy of this report has been sent [facility].PATIENT WAS FASTINGPERFORMED BY: [employer] Bgvfis7612 [facility] [id number] 0:51 Range: 30.0-100.0 Comments: Vitamin D deficiency has been defined by the [place] of[place] and an Endocrine Society practice guideline as alevel of serum 25-OH vitamin D less than 20 ng/mL (1,2).The Endocrine Society went on to further define vitamin Dinsufficiency as a level between 21 and 29 ng/mL (2).1. IOM ([place] [employer]). 2010. Dietary reference intakes for calcium and D. [place]: The National Academies Press.2. Mateusz MF, Mary HUNTER, Enma KENDALL, et al. Evaluation, treatment, and prevention of vitamin D deficiency: an Endocrine Society clinical practice guideline. JCEM. 2010; 96(7):1911-30. 56-Kom-261414:28 Sputum Culture (13494) Comments: PATIENT NOT FASTINGPERFORMED BY: [facility] Yoarcw8901 [facility] [id number] Information: [id number] Result 1 STREPN (Abnormal) Comments: Streptococcus pneumoniaeHeavy [...] S Lower Respiratory Final report Culture (Abnormal) 69-Aoa-893025:49 Free T3 Comments: Has Patient had X-rays with Contrast this admission? NIs Patient on Heparin? [facility] [address] [place], [place], [address] FREE T3 1.9 pg/mL (Abnormal) Range: 2.18-3.98 :49 T4 Free Direct Comments: Has Patient had X-rays with Contrast this admission? NIs Patient on Heparin? [facility] [address] [place], [place], [address] T4 FREE DIRECT 0.84 ng/dL (Normal) Range: 0.76-1.46 :49 Thyroid Stim Hormone (TSH) Comments: Has Patient had X-rays with Contrast this admission? NIs Patient on Heparin? [facility] [address] [place], [address] TSH 0.04 {uIU/mL} (Abnormal) Range: 0.358-3.74 :43 CBC W/Diff, Automated Comments: Test performed at:[facility] R[address] [place] [address] Absolute Lymph 2.39 {X10_3/ul} (Normal) Range: [...] 4.2-5.4 WBC 8.0 K/mm3 (Normal) Range: 4.4-11.0 79-Aev-754800:43 Comprehensive Metabolic Profil Comments: Test performed at:[facility] [address]xy[address]tyw[address] [place] [address] GAP 7 (Normal) Range: 5-15 CO2 27.0 [...] 7-18 GLU 92 mg/dL (Normal) Range: 70-110 :34 Comprehensive Metabolic Profil Comments: ORDERED LIPID,CMPDR.SNEHA ORDERED TSH,HARLEEN,DHEATest performed at:[facility] Ugyamfxnie8083 [facility] [address] GAP 11 (Normal) Range: 5-15 [...] Comments: Please note revised CREATININE reference range mvseifojk27/22/2015. BUN 6 mg/dL (Abnormal) Range: 7-18 GLU 97 mg/dL (Normal) Range: 70-110 47-Rnj-89502:34 DHEA Sulfate Comments: Has Patient had Radioactive Injection for X-ray?: NTest performed at:[facility] [address] [place] [address] DHEA SULF 4020 26.8 ug/dL (Abnormal) Range: 41.2-243.7 Comments: Performed at: - [facility] [address] [id number] Director: Sean Daniel PhD, Phone: [phone] 78-Dcs-59593:34 Lipid Profile Comments: ORDERED LIPID,ANTONELLA ORDERED TSH,HARLEEN,DHEATest performed at:[facility] [address] [place] [address] VLDL 14 mg/dL (Normal) Range: 5-40 LDL [...] Testosterone, Serum Total Comments: Test performed at:[facility] Qcrmmcubxf88[address] [facility] [place] [address] Testosterone 20 ng/dL (Normal) Range: 14-76 :34 Thyroid Stim Hormone (TSH) Comments: ORDERED LIPID,ANTONELLA ORDERED TSH,HARLEEN,DHEATest performed at:[facility] [address] [place] [address] TSH < 0.01 {uIU/mL} (Abnormal) Range: 0.358-3.74 88-Heu-772402:12 CBC W/Diff, Automated Comments: Test performed at:[facility] Iots[address]jik[address] [place] [address] Absolute Lymph 1.81 {X10_3/ul} (Normal) [...] 4.2-5.4 WBC 6.0 K/mm3 (Normal) Range: 4.4-11.0 35-Hxe-118948:12 Comprehensive Metabolic Profil Comments: Test performed at:[facility] [address] [place] [address] GAP 6 (Normal) Range: 5-15 CO2 29.0 [...] Radioactive Injection for X-ray?: NTest performed at:[facility] [address] [place] [address] DHEA SULF 4020 22.6 ug/dL (Abnormal) Range: 41.2-243.7 Comments: Performed at: [facility] LabCoGregory [place] [id number] Director: Omer Stout PhD, Phone: [phone] :[phone] Free T3 Comments: Has Patient had X-rays with Contrast this admission? ??NIs Patient on Heparin? ??NTest performed at:[facility] [address] ??[place], [place] ??[address] FREE T3 4.7 pg/mL (Abnormal) Range: 2.18-3.98 :36 T4 Free Direct Comments: Has Patient had X-rays with Contrast this admission? NIs Patient on Heparin? NTest performed at:[facility] [address] [place] [address] T4 FREE DIRECT 1.54 ng/dL (Abnormal) Range: 0.76-1.46 :36 Thyroid Stim Hormone (TSH) Comments: Has Patient had X-rays with Contrast this admission? NIs Patient on Heparin? NTest performed at:[facility] [address]px[address] [place] [address] TSH < 0.01 {uIU/mL} (Abnormal) Range: 0.358-3.74 :36 Vitamin D,25 Hydroxy Comments: Test performed at:[facility] [address] [place] [address] Vitamin D 25-OH 34.0 ng/mL (Normal) Comments: Vitamin D 25(OH) Status Range Deficiency <20 ng/mL (50nmol/L) Insuffciency 20 - 30 ng/mL (50 - 75 nmol/L) Sufficiency 30 - 100 ng/mL (75 - 250 nmol/L) Toxicity >100 ng/mL (>250 nmol/L) :02 CBC W/Diff, Automated Comments: Test performed at:[facility] [address] [place] [address] ; non- emergent till apt [...] Comprehensive Metabolic Profil Comments: Test performed at:[facility] [address] [place] [address] GAP 7 (Normal) Range: 5-15 [...] :02 Lipid Profile Comments: Test performed at:[facility] [address] [place], [place] [address] VLDL 14 mg/dL (Normal) Range: 5-40 LDL [...] 200-240 mg/dL Borderline >240 mg/dL High Risk 53-Mok-985078:09 CBC W/Diff, Automated Comments: Test performed at:[facility] [address] [place] [address] ; handled by kerri Absolute Lymph 2.45 [...] 4.2-5.4 WBC 8.0 K/mm3 (Normal) Range: 4.4-11.0 73-Qqf-218014:09 Comprehensive Metabolic Profil Comments: Test performed at:[facility] [address] [place] [address] ; kerri GAP 6 (Normal) Range: 5-15 [...] 7-18 GLU 79 mg/dL (Normal) Range: 70-110 03-Dit-02325:19 CMP Comments: DR BROWN ORDERED LIPID CMPDR [...] 7-18 GLU 98 mg/dL (Normal) Range: 70-110 43-Uff-32956:19 LIPID Comments: DR BROWN ORDERED LIPID CMPDR VILLAFANA ORDERED CMP CBCD VLDL 12 mg/dL (Normal) [...] CHOL 168 mg/dL (Normal) Comments: <200 mg/dL Cxebophim284-166 mg/dL Borderline>240 mg/dL High Risk 01-Zsd-507356:51 CBCD ALC 2.36 {X10_3/ul} (Normal) Range: 0.83-4.51 [...] 4.2-5.4 WBC 8.0 K/mm3 (Normal) Range: 4.4-11.0 97-Caq-427272:51 CMP Comments: DR VILLAFANA ORDERED CBCD CMP [...] 7-18 GLU 89 mg/dL (Normal) Range: 70-110 04-Ubp-017372:51 CORTU Comments: Has Patient had Radioactive Injection for X-ray?: N tCORTU 9 ug/L (Normal) vCBJVY89 39 {ug/24_hr} (Normal) Range: 0-50 11-Gch-732599:51 DHEA 19.8 ug/dL (Abnormal) Comments: Has Patient had Radioactive Injection for X-ray?: N Range: 41.2-243.7 Comments: Performed at: - [facility] [id number] Director: Eusebio Live MD, Phone: [phone] at: [facility] LabCoElizabeth [place] [address]Rpz Director: Omer Stout PhD, Phone: [phone] 17-Rfj-914568:51 FT3 2.2 pg/mL (Normal) Comments: DR VILLAFANA ORDERED CBCD CMP ONLYHas Patient had X-rays with Contrast this admission? N Range: 2.18-3.98 00-Pbd-200938:51 METAU Comments: Has Patient had Radioactive Injection for X-ray?: N tMETA 40 ug/L (Normal) tMETA24 172 {ug/24_hr} (Normal) Range: 45-290 Comments: (Hypertensive) >17 years 11 months: 35 - 460 tNORM24 292 {ug/24_hr} (Normal) Range: 82-500 Comments: (Hypertensive) >17 years 11 months: 110 - 1050 tNORM 68 ug/L (Normal) 93-Rea-568074:51 T4F 0.98 ng/dL (Normal) Comments: DR VILLAFANA ORDERED CBCD CMP ONLYHas Patient had X-rays with Contrast this admission? N Range: 0.76-1.46 99-Kff-652599:51 TSH 0.66 {uIU/mL} (Normal) Comments: DR VILLAFANA ORDERED CBCD CMP ONLYHas Patient had X-rays with Contrast this admission? N Range: 0.358-3.74 46-Qmp-770678:51 VITD 51.8 mg/mL (Normal) Comments: Vitamin D 25(OH) Status RangeDeficiency <20 ng/mL (50nmol/L)Insuffciency 20 - 30 ng/mL (50 - 75 nmol/L)Sufficiency 30 - 100 ng/mL (75 - 250 nmol/L)Toxicity >100 ng/mL (>250 nmol/L) 5-Mzy-927939:01 URINE ARELY CULTURE-SPRING COL Comments: PATIENT NOT FASTINGPERFORMED BY: [facility] VinelandWfjxec7975 [facility] [id number] Information: SRC:UR [id number] COUNT (03065) Result 1 NG36 (Normal) Comments: No growth in 36 - 48 hours. Urine Culture,Comprehensive Final report (Normal) 2-Mpc-068015:44 Urinalysis, Office (41676) UA - LEUKOCYTE ESTERASE Negative (Normal) UA - NITRITE Negative (Normal) URINE UROBILINGN SPRING TIMED Normal mg/dL (Normal) UA - PROTEIN Negative mg/dL (Normal) UA - PH 8.5 (Normal) UA - BLOOD Negative (Normal) UA - SPECIFIC GRAVITY 1.015 (Normal) UA - KETONES Negative mg/dL (Normal) UA - BILIRUBIN Negative (Normal) UA - GLUCOSE Negative (Normal) 27-Aug-20139:00 CMP Comments: LIPID CMPDR.GLORIACHA CMP TSH T4F T3F VITD DHEA GAP [...] X-ray?: N Range: 41.2-243.7 Comments: Performed at: [address] Director: Sterling Porter MD, Phone: [phone] :[phone] FT3 2.4 pg/mL (Normal) Comments: LIPID [...] CHOL 235 mg/dL (Abnormal) Comments: <200 mg/dL Skvkqhuad813-658 mg/dL Borderline>240 mg/dL High Risk :00 T4F 0.98 ng/dL (Normal) Comments: LIPID RUBI CMP TSH T4F T3F VITD DHEA Range: 0.76-1.46 :00 TSH 0.16 {uIU/mL} (Abnormal) Comments: LIPID CMPDR.SELVIN CMP TSH T4F T3F VITD DHEA Range: 0.358-3.74 :00 VITD 56.0 mg/mL (Normal) Comments: Vitamin D 25(OH) Status RangeDeficiency <20 ng/mL (50nmol/L)Insuffciency 20 - 30 ng/mL (50 - 75 nmol/L)Sufficiency 30 - 100 ng/mL (75 - 250 nmol/L)Toxicity >100 ng/mL (>250 nmol/L) :54 OS 273 {mOsm/KG} (Abnormal) Range: 275-295 :54 [facility] 268 {mOsm/KG} (Normal) Comments: OSMOLALITY URINE REFERENCE RGPJSFFVB39-vcmd Urine 300 - 900 mOsm/kgRandom Urine 50 - 1400 mOsm/kgAfter 12 Hr fluid restriction >850 mOsm/kg 18-Uqx-158191:31 24HULYT Comments: 07/25/13 1130AM CREATININE AND SODIUM ONLYST 1130AM uCL24 63 {mmol/24h} (Abnormal) Range: 110-250 CLU 14 mmol/L (Normal) KU 15.5 mmol/L (Normal) uK24 70.1 {mmol/24h} (Normal) Range: 25-125 uNA24 72 {mmol/24h} (Normal) Range: 40-220 EMELI 16 mmol/L (Normal) uLYTV 4525 mL (Normal) 24-Dvd-629312:31 UCRE Comments: 07/25/13 1130AM CREATININE AND SODIUM ONLYST 1130AM UCCT 24.0 {HOURS} (Normal) UCRE24 1.2 {g/24_hr} (Normal) Range: 0.6-1.5 UCTV 4.53 L (Normal) URCREAT 26.8 mg/dL (Normal) 16-Mej-189628:30 CAU Comments: ST 07/25/13 1130AMST 07/25/13/1130AMComments: ep2392 24 hr sodium urine tCAU24 90.0 {mg/24_hr} (Normal) Range: 100.0-300.0 Comments: Reference Ywwtm230.0 - 300.0Total volumne: 4525 ml/24hrPerformed at: - [facility] [address] [id number] Director: Sterling Porter MD, Phone: [phone] CAUR 2.1 mg/dL (Normal) 53-Nej-959645:18 CBCD ALC 2.09 {X10_3/ul} (Normal) Range: 0.83-4.51 [...] 4.2-5.4 WBC 7.0 K/mm3 (Normal) Range: 4.4-11.0 55-Iuu-441755:18 CMP Comments: Comments: ro2776 24 hr sodium urine GAP 8 (Normal) [...] 126 mg/dLsuggests DIABETES MELLITUS per A.D.A. criteria. 58-Pjo-285274:33 PTHIN 37 pg/mL (Normal) Range: 14-72 :31 [...] N Range: 41.2-243.7 Comments: Performed at: - [address] [id number] Director: Sterling Porter MD, Phone: [phone] :[phone] T4F 1.03 ng/dL (Normal) Range: 0.76-1.46 [...] CHOL 176 mg/dL (Normal) Comments: <200 mg/dL Rtxcdgcov349-819 mg/dL Borderline>240 mg/dL High Risk :17 T4F 1.08 ng/dL (Normal) Comments: DR BROWN ORDERED CMP LIPIDDR WIETECHA ORDERED TSH T3F T4F BMP Range: 0.76-1.46 :17 TSH 0.49 {uIU/mL} (Normal) Comments: DR BROWN ORDERED CMP LIPIDDR WIETECHA ORDERED TSH T3F T4F BMP Range: 0.358-3.74 4-Onl-477450:52 BREAST UNILATERAL Radiology See Note Comments: STUDY: [...] Galeana M.D.November 02, 2012 at 4:00:42 PM [id number] Signed GP/GP If you are the referring physician and would like to consult with theradiologist who provided this interpretation, please contact Luis Angel Quintana at [phone]. If this radiologist is un available, youwill be directed to another radiologist to assist. If you are a patient with a question regarding this report, pleasecontactyour referring physician directly. Professional Interpretation P rovided By: Sean, Phone , These documents contain [...] Galeana M.D.November 02, 2012 at 3:22:08 PM [id number] Signed GP/GP If you are the referring physician and would like to consult with theradiologist who provided this interpretation, please contact Luis Angel Quintana at [phone]. If this radiologist is unavailable, youwil l [...] 1522 by Hilary Galeana MDribed on 11/02/12 1536 by ITS IMPORTSign by Barrera Kennedy on 11/02/12 1537 Sign by: Barrera Galeana MD 78-Emm-58673:00 ABDOMEN/PELVIS WITHOUT CONT Radiology Report See Note [...] Galeana M.D.September 14, 2012 at 8:22:23 AM [id number] Signed GP/GP If you are the referring physician and would like to consult with theradiologist who provided this interpretation, please contact Luis Angel Quintana at [phone]. If this radiologist is unavailable, youwill be directed to another radiologist to assist. If you are a patient with a question regarding this report, pleasecontactyour referring niecy yang directly. Professional Interpretation Provided By: [employer], Phone , These documents contain legally protected [...] or destructionofthese documents. Dictated on 09/14/12821 by Wendy IRVIN,Aureliano Bearscribed on 09/14/12823 by ITS IMPORTSign by Barrera Galeana MD on 09/14/12824 Sign by: Barrera Galeana MD 11-Vdd-683245:15 URINE ARELY CULTURE-IDENTIFICATN Comments: PATIENT NOT FASTINGPERFORMED BY: [facility] VinelandAtncif3741 [facility] [id number] Information: ADD [id number] ([id number]) Result 1 NG36 (Normal) Comments: No growth in 36 - 48 hours. Urine Culture,Comprehensive Final report (Normal) 13-Eqx-765407:03 Urinalysis, Office (11521) UA - BILIRUBIN Negative (Normal) UA - BLOOD Non Hemolyzed Trace (Normal) UA - GLUCOSE Negative (Normal) UA - KETONES Negative mg/dL (Normal) UA - LEUKOCYTE ESTERASE Negative (Normal) UA - NITRITE Negative (Normal) UA - PH 7.0 (Normal) UA - PROTEIN Negative mg/dL (Normal) UA - SPECIFIC GRAVITY 1.010 (Normal) URINE UROBILINGN SPRING TIMED Normal mg/dL (Normal) 84-Pbg-781168:14 CBCMD ANC 3.2 3/uL (Normal) Range: 2.0-7.7 [...] 4.2-5.4 WBC 5.9 {k/mm3} (Normal) Range: 4.4-11.0 32-Ipn-023238:14 CMP GAP 8 (Normal) Range: 5-15 CO2 [...] 7-18 GLU 86 mg/dL (Normal) Range: 70-110 43-Ens-422201:14 FT3 3.5 pg/mL (Normal) Range: 2.18-3.98 54-Quu-078338:14 LIPID VLDL 12 mg/dL (Normal) Range: 5-40 [...] CHOL 206 mg/dL (Abnormal) Comments: <200 mg/dL Vvfnrqxni147-206 mg/dL Borderline>240 mg/dL High Risk :14 T4F 1.17 ng/dL (Normal) Range: 0.76-1.46 :14 TSH 0.02 {uIU/mL} (Abnormal) Range: 0.358-3.74 :14 VITD 39.9 ng/mL (Normal) Comments: Vitamin D 25(OH) Status RangeDeficiency <20 ng/mL (50nmol/L)Insufficiency 20 - 30 ng/mL (50 - 75 nmol/L)Sufficiency 30 - 100 ng/mL (75 - 250 nm ol/L)Toxicity >100 ng/mL (250 nmol/L)Effective 201222-Jun-201275-Zxm-704907:23 BILAT SCRN DIGITAL & CAD Radiology Report [...] Galeana M.D.June 22, 2012 at 2:15:23 PM [id number] Signed GP/GP If you a re the referring physician and would like to consult with theradiologist who provided this interpretation, please contact Luis Angel Quintana at [phone]. If this radiologist is unavailable, you will [...] destructionofthese documents. Dictated on 06/22/12 1323 by Marcel Galeana MDscribed on 06/22/12 1417 by ITS IMPORTSign by Barrera Vega i, MD on 06/22/12 1418 Sign by: Barrera Galeana MD 22-Jun-2012 glu gtt4 66 mg/dL Comments: 4HR GTT GLU 4 HR GLU GTT-4 HOUR from 0426:F69355G. 11:43 (Abnormal) Range: 70-110 22-Jun-2012 glu gtt3 36 mg/dL Comments: 4HR GTT GLU 3 HR GLU GTT-3 HOUR from 0426:F70757L. 10:50 (Abnormal) Range: 70-110 Comments: CRITICAL VALUE REPEATED AND VERIFIED. CALLED TO ANUEL BENTLEY06/22/12 MARGY SYKES.RESULTS READ BACK BY SAME . 22-Jun-2012 glu gtt2 84 mg/dL (Normal) Comments: 4HR GTT GLU 2 HR GLU GTT-2 HOUR from 0426:P12088K. 9:50 Range: 70-120 22-Jun-2012 glu gtt1 118 mg/dL Comments: 4HR GTT GLU 1 HR GLU GTT-1 HOUR from 0426:W08483Z. 8:50 (Abnormal) Range: 120-170 22-Jun-2012 glu gtt.5 140 mg/dL Comments: 4HR GTT GLU 1/2 HR GLU GTT-30 min. from 0426:U66641G. 8:20 (Normal) Range: 110-170 21-Dji-25233:40 BGM Comments: 4HR GTT FASTING GLU GTT-FASTING from 0426:F38894S. glu gttf 94 mg/dL (Normal) Range: 70-110 Comments: GLUCOSE TOLERANCE TEST Reference IntervalNon- AdultsFasting 70 - 94740 minutes 110 - 1701 hour 120 - 1702 hour 70 - 1203 hour 70 - 1104 hour 70 - 1105 hour 70 - 110 BGM 97 mg/dL (Normal) Range: 70-110 Comments: MANAGEMENT OF PATIENT CARE PER NURSING PROTOCOLNo Action Required0 70-Qdk-30116:40 CBCD Comments: DR DAILY ORDERED HMQ7XOCFDR VILLAFANA ORDERED CMP CBCD ANC 2.2 3/uL [...] 4.4-11.0 :40 CMP Comments: DR DAILY ORDERED NMH3SOTRDR VILLAFANA ORDERED CMP CBCD GAP 8 (Normal) [...] 70-110 :40 GTT4 Comments: DR DAILY ORDERED NYF0CLMGDR VILLAFANA ORDERED CMP CBCD :31 CBC WITH MANUAL DIFF Comments: PATIENT NOT FASTINGPERFORMED BY: JUAN LUIS [employer] [id number] [facility] [id number] Information: [id number] ([id number]) Immature Grans (Abs) 0.0 {x10E3/uL} (Normal) Range: [...] 9.0 {x10E3/uL} (Normal) Range: 4.0-10.5 :31 TSH ([id number]) Comments: PATIENT NOT FASTINGPERFORMED BY: [address] [id number] TSH 6.430 {uIU/mL} (Abnormal) Range: 0.450-4.500 29-May-20129:31 EBV Panel ([id number]) Comments: PATIENT NOT FASTINGPERFORMED BY: [address] [id number] Interpretation: SPRCS (Normal) Comments: EBV Interpretation Chart [...] 5:28 (Abnormal) Comments: Results confirmed ondilution.Performed at: [address] [id number] Director: Omer Stout PhD, Phone: [phone] TSH 0.90 {uIU/mL} Range: 0.358-3.74 5:28 (Normal) 6-Rig-409445:59 Urinalysis, Office (10149) UA - BILIRUBIN Negative (Normal) UA - BLOOD Hemolyzed Trace (Normal) UA - GLUCOSE Negative (Normal) UA - KETONES Negative mg/dL (Normal) UA - LEUKOCYTE ESTERASE Negative (Normal) UA - NITRITE Negative (Normal) UA - PH 7.0 (Normal) UA - PROTEIN Negative mg/dL (Normal) UA - SPECIFIC GRAVITY 1.010 (Normal) URINE UROBILINGN SPRING TIMED Normal mg/dL (Normal) 1-Tmm-634131:11 ARELY CULTURE-OTHER (24939) Comments: PATIENT NOT FASTINGPERFORMED BY: [employer] [facility] [id number] Information: SRC:THRT [id number] Result 1 RRF (Normal) Comments: Routine respiratory kaylene Upper Respiratory Culture Final report (Normal) 6-Klr-349960:58 Rapid Strep Test, Office (59931) Rapid Strep Test, Office Negative (Normal) 9-Qgr-347808:47 Urinalysis, Office (94678) UA - BILIRUBIN Negative (Normal) UA - BLOOD Hemolyzed Trace (Normal) UA - GLUCOSE Negative (Normal) UA - KETONES Negative mg/dL (Normal) UA - LEUKOCYTE ESTERASE Negative (Normal) UA - NITRITE Negative (Normal) UA - PH 6.0 (Normal) UA - PROTEIN Negative mg/dL (Normal) UA - SPECIFIC GRAVITY 1.010 (Normal) URINE UROBILINGN SPRING TIMED Normal mg/dL (Normal) 9-Ocd-444048:11 URINE ARELY CULTURE (SPRING Comments: PATIENT NOT FASTINGPERFORMED BY: [employer] [id number] [facility] [id number] Information: SRC:UR [id number] COL COUNT) (65842) Result 1 MUG (Normal) Comments: Mixed urogenital Colonies/mL Urine Final report (Normal) Culture,Comprehensive 19-Kyh-733169:1 ISAIAS 8.59 ug/dL (Normal) Comments: COMMENTS: FAX RESULTS TO DR. KEVIN Holden IVT DRAW 0 Range: 3.09-22.40 Comments: Adult (AM) 4.30 - 22.40 ug/dL Adult (PM) 3.09 - 16.66 ug/dL 92-Tzb-12947:40 ISAIAS 10.40 ug/dL (Normal) Comments: COMMENTS: FAX [...] (Normal) Range: 70-110 Comments: RESULTS FAXED TO [phone] 01/13/12 0934 MARINE TOURE.RESULTS FAXED TO [phone] 01/13/12 0959 MARINE TOURE. :25 ISAIAS 13.11 ug/dL (Normal) Comments: COMMENTS: FAX RESULTS TO DR. KEVIN HARTMAN DRAW Range: 3.09-22.40 Comments: Adult (AM) 4.30 - 22.40 ug/dL Adult (PM) 3.09 - 16.66 ug/dL :25 FT3 2.4 pg/mL (Normal) Comments: COMMENTS: FAX RESULTS TO DR. KEVIN HARTMAN DRAW Range: 2.18-3.98 :25 T4F 0.98 ng/dL (Normal) Comments: COMMENTS: FAX RESULTS TO DR. FAST - IVT DRAW Range: 0.76-1.46 :25 TPO 1232 {IU/mL} (Abnormal) Comments: COMMENTS: FAX RESULTS TO DR. KEVIN Holden IVT DRAW Range: 0-34 Comments: Results confirmed ondilution.Performed at: [address] [id number] Director: Omer Stout PhD, Phone: [phone] :[phone] TSH 5.66 {uIU/mL} (Abnormal) Comments: COMMENTS: [...] ORDERED LIPID,CMP,TSH,CBCMDDR VELLANKI ORDRED CMP,CBCD Range: 0.358-3.74 6-Gbg-862103:46 MYOCARD PERF STRESS/REST MULT Radiology Report See [...] 11/30/11 1446 by Zuleyma VALLE by Uzair Retana MD on 12/05/11 0829 Sign by: Uzair Retana MD 20-Xti-973351:42 BRAIN W/WO CONTRAST Radiology Report See Note [...] Soto M.D.November 16, 2011 at 2:50:07 PM [id number] Signed LL/LL If you are the referring physician and would like to consult with theradiologist who provided this interpretation, please contact Shahla Weiss M.D. at [phone]. If this radiologist is unavailable, you willbe directed to another radiologist to assist. If you are a patient with a question regarding this report, pleasecontactyour referring physician fabiana fuentes. Professional Interpretation Provided By: [employer], Phone , These documents contain legally protected [...] 11/16/11 1457 Sign by: SHAHLA SOTO MD 35-Kqx-830269:25 CHEST WITH CONTRAST Radiology Report See Note [...] Galeana M.D.November 14, 2011 at 3:11:11 PM [id number] Signed GP/GP If you are the referring physician and would like to consult with theradiologist who provided this interpretation, please contact Luis Angel Quintana at [phone]. If this radiologist is unavailable, youwill be directed to another radiologist to assist. If you are a patient with a question regarding this report, pleasecontactyour referring physician directly. Professional Interpretation Provided By: [employer], Phone , These documents contain legally protected [...] 11/15/11 1543 Sign by: Barrera Galeana MD 51-Thp-297622:39 L/S SPINE,MIN 4 VIEWS Radiology Report See [...] Galeana M.D.November 14, 2011 at 3:46:06 PM [id number] Signed GP/GP If you are the referring physician and would like to co nsult with theradiologist who provided this interpretation, please contact Luis Angel Quintana at [phone]. If this radiologist is unavailable, youwill be directed to another radiologist to [facility]. If you are a patient with a question regarding this report, pleasecontactyour referring physician directly. Professional Interpretation Provided By: [employer], Phone ,Fax These documents contain legally protected [...] Galeana MD on 11/15/11 1605 Sign by: aBrrera Galeana MD 78-Sbt-300263:38 CERV SPINE,MIN 4 VIEWS Radiology Report See [...] fusion at the C4, C5, and C5, Q5rnvarvrmsz prosthetic disk material. 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 Normal visualized intervertebral neuroforamina. Normal visuali zed soft tissue structures. IMPRESSION:Anterior fusion at the C4-C5 and C6- C7 levels. Signed:Barrera Galeana M.D.November 14, 2011 at 3:47:12 PM [id number] Signed GP/GP If you ar e the referring physician and would like to consult with theradiologist who provided this interpretation, please contact Luis Angel Quintana at [phone]. If this radiologist is unavailable, youw ill [...] 11/14/11 1554 Sign by: Barrera Galeana MD 22-Tkv-282590:38 HIP, MIN 2 VIEWS Radiology Report See [...] Galeana M.D.November 14, 2011 at 3:48:20 PM [id number] Signed GP/GP If you are the referring physician and would like to consult with theradiologist who provided this interpre tation, please contact Gopi Quintana. at [phone]. If this radiologist is unavailable, youwill be directed to another radiologist to assist. If you are a patient with a question regarding t his report, pleasecontactyour referring physician directly. Professional Interpretation Provided By: [employer], Phone , These documents contain legally protected [...] Dicta kat on 11/14/11 1006 by Wendy IRVIN,AcrieleTranscribed on 11/14/111554 by ITS IMPORTSign by Wendy IRVIN,Barrera on 11/14/111555 Sign by: Barrera Galeana MD 15-Nuo-74187:52 CBCMD RBCM NORM C+C {NORMAL} (Normal) PE [...] or Pulmonary Embolism (PE)RESULTS CALLED TO YOVANNY AT DR BROWN;S 11/14/11 ROSIE GIBSON.REPORT READ BACK BY [...] Galeana M.D.November 14, 2011 at 3:48:08 PM [id number] Signed GP/GP If you are the referring physician and would like to consult with ld crowley who provided this interpretation, please contact Luis Angel Quintana at [phone]. If this radiologist is unavailable, youwill be directed to another radiologist to assist. If you are a patient with a question regarding this report, pleasecontactyour referring physician directly. Professional Interpretation Provided By: [employer], Phone , These document s contain legally [...] 11/15/11 1608 Sign by: Barrera Galeana MD 2-Tgb-854095:42 JACQUI Comments: DR BROWN ORDERED LIPID TSH CMPDR VELLANKI ORDERED CMP CBCD DNA JACQUI CHERIE SCL-70 SSA/SSBENA ANTICENTROMERE taANA 45 AU/mL (Normal) 5-Xsm-004900:42 ANEX Comments: DR BROWN ORDERED LIPID TSH CMPDR VELLANKI ORDERED CMP CBCD DNA JACQUI CHERIE SCL-70 SSA/SSBENA ANTICENTROMERE taANA COMMENT (Normal) Comments: TESTING INTERPRETATIONSPOSITIVE: > 120EQUIVOCAL: 100 - 120NEGATIVE: < 100 taRNP 29 AU/mL (Normal) taSM 32 AU/mL (Normal) 9-Lmm-281889:42 ANTIJO1 Comments: DR BROWN ORDERED LIPID TSH CMPDR VELLANCHING ORDERED CMP CBCD DNA JACQUI CHERIE SCL-70 SSA/SSBENA ANTICENTROMERE taJO1 17 AU/mL (Normal) 4-Vku-914805:42 CBCD ANC 3.9 3/uL (Normal) Range: 2.0-7.7 [...] 4.2-5.4 WBC 6.2 K/mm3 (Normal) Range: 4.4-11.0 0-Xhf-579605:42 CENTB Comments: DR BROWN ORDERED LIPID TSH CMPDR VELLANKI ORDERED CMP CBCD DNA JACQUI CHERIE SCL-70 SSA/SSBENA ANTICENTROMERE taCENTB 6 AU/mL (Normal) 0-Ebw-718346:42 CMP Comments: DR BROWN ORDERED LIPID TSH [...] 7-18 GLU 94 mg/dL (Normal) Range: 70-110 7-Ovx-862832:42 DNAAB Comments: DR BROWN ORDERED LIPID TSH CMPDR TRES ORDERED CMP CBCD DNA JACQUI CHERIE SCL-70 SSA/SSBENA ANTICENTROMERE tadsDNA 5 {IU/mL} (Normal) 2-Wwz-739357:42 LIPID Comments: DR BROWN ORDERED LIPID TSH [...] 200-240 mg/dL Borderline >240 mg/dL High Risk 8-Lsz-063708:42 SCL70 Comments: DR BROWN ORDERED LIPID TSH CMPDR VELLANKI ORDERED CMP CBCD DNA JACQUI CHERIE SCL-70 SSA/SSBENA ANTICENTROMERE taSCL70 45 AU/mL (Normal) 8-Nxx-900548:42 SSA Comments: DR BROWN ORDERED LIPID TSH CMPDR VELLANKI ORDERED CMP CBCD DNA JACQUI CHERIE SCL-70 SSA/SSBENA ANTICENTROMERE taSSA 31 AU/mL (Normal) 7-Sjt-990561:42 SSB Comments: DR BROWN ORDERED LIPID TSH CMPDR VELLANKI ORDERED CMP CBCD DNA JACQUI CHERIE SCL-70 SSA/SSBENA ANTICENTROMERE taSSB 34 AU/mL (Normal) 4-Zhy-382563:42 TSH 11.70 {uIU/mL} (Abnormal) Comments: DR BROWN ORDERED LIPID TSH CMPDR VELLANKI ORDERED CMP CBCD DNA JACQUI CHERIE SCL-70 SSA/SSBENA ANTICENTROMERE Range: 0.358-3.74 10-Jgg-86427:36 ESOPHAGUS ONLY Radiology Report See Note (Normal) [...] Galeana M.D.September 13, 2011 at 9:19:02 AM [phone] ly Signed GP/GP If you are the referring physician and would like to consult with theradiologist who provided this interpretation, please contact Luis Angel Quintana at [phone]. If this radiolo gist is unavailable, youwill be directed to another radiologist to assist. If you are a patient with a question regarding this report, pleasecontactyour referring physician directly. Professional Interp retation Provided By: [employer], Phone , Dictated on 09/13/11 0834 by Wendy IRVIN,Kimranscribed on 09/13/11 0945 by ITS IMPORTSign by Wendy IRVIN,Barrera on 09/13/11 0946 Sign by: Wendy IRVIN,Barrera 44-Nha-86673:47 CBCMD RBCM NORM C+C {NORMAL} (Normal) PE [...] 4.2-5.4 WBC 6.1 K/mm3 (Normal) Range: 4.4-11.0 15-Cff-46898:47 CMP GAP 6 (Normal) Range: 5-15 CO2 [...] Signed GP/GP Professional Interpretation Provide d By: [facility], , To consult with a radiologist regarding this report, please call our [id number] line @ Dictated on 03/10 1331 by Wendy IRVIN,Kimranscribed on 06/28/11 1852 by ITS IMPORTSign by Barrera Galeana MD on 06/28/11 1853 Sign by: Barrera Galeana MD 96-Zhi-22255:32 THYROID Radiology Report See Note (Normal) Comments: [...] change has occurred in comparison with the [facility] riorstudy. IMPRESSION:1. These size of the thyroid gland is stable.2. 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 Signed:John Spencer M.D.June 24, 2011 at 4:51:02 PM EDTElectronically Signed DL/DL Professional Interpretation Provided By: [facility], , To consult with a radiologist regarding t his report, please call our [id number] line @ Dictated on 06/24/11 1013 by John Spencer MDTranscribed on 06/24/11 1655 by ITS IMPORTSign by John Spencer MD on 06/24/11 1656 Sign by: John Spencer MD 62-Gxn-56273:30 BILAT SCRN DIGITAL & CAD Radiology Report [...] EDTElectronically Signed GP/GP Professional Interpretation Provided By: [employer] [facility], , To consult with a radiologist regarding this report, please call our [id number] line @ Dictated on 06/24/11 0945 by Wendy IRVIN,Kimranscribed on 06/24/11 1025 by ITS IMPORTSign by Barrera Galeana MD on 06/24/11 1026 Sign by: Barrera Galeana MD 56-Mlt-067209: CUT See Note (Normal) Comments: CULTURE OF TOUNG AND THROAT 11 Comments: 1+ YEAST ISOLATED No beta-hemolytic streptococcus isolated. 50-Bqa-669872:46 CBCMD MACRO 1+ (Normal) RBCM N CHROM [...] GLU 94 mg/dL (Normal) Range: 70-110 :46 EB tEBINT Comment (Normal) Comments: EBV Interpretation Chart . Interpretation VCA-IgM EA-IgG VCA-IgG NA-ABS . Susceptible - - - - Acute Infection + +or- +or- - Convalescent Phase +or- +or- + + Chronic or Reactivated - + + +or- Old Infection - - +or- + + Antibody Pr esent - Antibody AbsentPerformed at: - [facility] [address] [id number] Director: Iraida Willingham MD, Phone: [phone] EBNA > 8.0 {AI} (Abnormal) Range: 0.0-0.8 Comments: Negative <0.9 Equivocal 0.9 - 1.0 Positive >1.0 EBVG > 8.0 {AI} (Abnormal) Range: 0.0-0.8 Comments: Negative <0.9 Equivocal 0.9 - 1.0 Positive >1.0 EBEAG < 0.2 (Normal) Comments: Negative <0.9 Equivocal 0.9 - 1.0 Positive >1.0 EBVM < 0.2 {AI} (Normal) Range: 0.0-0.8 Comments: Negative <0.9 Equivocal 0.9 - 1.0 Positive >1.0 45-Kto-934917:28 CHEST, PA AND LATERAL Radiology Report See [...] radiologist regarding this report, please call our [id number] line @ Dictated on 06/07/11 1321 by Wendy IRVIN,Tomasa bed on 06/07/11 1408 by ITS IMPORTSign by Wendy IRVIN,Barrera on 06/07/11 1409 Sign by: Barrera Galeana MD CUT See Note (Normal) Comments: #1- PRESUMPTIVE FRANK ALBICANSNo beta-hemolytic streptococcus isolated. [place] [employer]OW[employer] RARE ORGANISM 1: YEAST 4:09 H.PYLORI [id number] < 0.9 U/mL (Normal) Range: 0.0-0.8 1:47 Comments: Negative <0.9 Indeterminate 0.9 - 1.0 Positive >1.0Performed at: - [facility] [id number] Director: Iraida Willingham MD, Phone: [phone] 5-Sxe-907653:34 CBCD,SMEAR DIFF MACROCYTE 1+ (Normal) RED CELL [...] 4.2-5.4 WBC 7.6 K/mm3 (Normal) Range: 4.4-11.0 9-Hbd-233745:34 COMP METABOLIC GAP 8 (Normal) Range: 5-15 [...] 7-18 GLU 83 mg/dL (Normal) Range: 70-110 6-Qrm-032164:20 Urinalysis, Office (18133) UA - BILIRUBIN Negative (Normal) UA - [...] URINE CULTURE Culture exhibits no growth. (Normal) 4-Zmv-000876:07 CULTURE, THROAT See Note (Normal) Comments: AMOUNT [...] $ <=10 S VANCOMYCIN $ <=1 S 7-Oyy-036412:30 Rapid Strep Test, Office (20816) Rapid Strep Test, Office Negative (Normal) 82-Rqs-763290:52 SPINE,CERVICAL WITHOUT CONTRAS Radiology Report See Note [...] 07/21/10 010 Sign by: Barrera Galeana MD 64-Lhe-984667:22 CERV SPINE,MIN 4 VIEWS Radiology Report See Note (Normal) Comments: CLINICAL:Female, 49 years old. Neck pain. X-RAY EXAMINATION - CERVICAL SPINE TECHNIQUE:Five views of the cervical spine were obtained. COMPARISON:None FINDINGS:Normal craniovertebral junction. Normal anterior atlantoaxialarticulation. Normal odontoid process. There is straightening of the normal cervical lordosis. Normal vertebralbodies and posterior osseous elements. The transverse processes of Z9kwaisqgyfekl. There is multi-level degenerative disc space narrowing with endplatespondylosis. There is multi-level osseous foraminal stenosis at N0-B9xiyF4-O7, bilateral. Normal visualized soft tiss ue structures. IMPRESSION:Multilevel degenerative disc disease with osseous foraminal stenosis.Prominent transverse processes of C7 may cause thoracic outlet syndrome.Straightening of the normal cervica l lordosis. Dictated on 07/13/10 1536 by Oscar HOLLIDAY MDcribed on 07/14/10 1209 by ITS IMPORTSign by SWATI HOLLIDAY MD on 07/14/10 1210 Sign by: SWATI HOLLIDAY MD 90-Pjo-05976:00 CHEST, PA AND LATERAL Radiology Report See [...] disease. Dictated on 07/13/10 1536 by MANJINDER ELE MDOTranscribed on 07/14/10 1304 by ITS IMPORTSign by SWATI HOLLIDAY MD on 07/14/10 1304 Sign by: SWATI HOLLIDAY MD 33-Xhu-44557:35 BILAT SCRN DIGITAL & CAD Radiology Report [...] 0905 by MELISSA LEES MDTranscribed on 06/22/10 235 by ITS IMPORTSign by MELISSA LEES MD on 06/22/10 2352 Sign by: YOANA IRVIN,MELISSA 91-Tpw-00065:34 DEXA BONE DENSITY STUDY (HP) Radiology Report See Note (Normal) Comments: CLINICAL:Female, 49 years old. The patient is a postmenopausal. EXAMINATION:DUAL ENERGY X-RAY ABSORPTIOMETRY / DEXA. TECHNIQUE:Bone Mineral Density (BMD) measurements of lumbar spine and bi lateralhipsw ere obtained using a [employer] scanner.. COMPARISON:Comparison is made with prior study [...] by ITS IMPORTSign by Wendy IRVIN,Barrera on 06/22/101444 Sign by: Barrera Galeana MD 7-Ppf-204685:14 Rapid Strep Test, Office (35851) Rapid Strep Test, Office Negative (Normal) 04-Jun-20100:00 [...] (Normal) Range: 70-110 :29 LIPID Comments: DR. BRWON ORDERED TSH LIPID CMP VITD CBCMDDRIfeanyi VILLAFANA [...] CBCD VITD Range: 0.358-3.74 :29 VIT D,25 17256 53.4 ng/mL (Normal) Comments: DR. BROWN ORDERED TSH LIPID CMP VITD CBCMDDR. TRES CMP CBCD VITD Range: 32.0-100.0 Comments: Recent studies consider the lower limit of 32.0 ng/mL to ama threshold for optimal health.Fco GARCIA. J Nutr. 2004;135(2):317-22.Performed at: - [address] [id number] Director: Iraida Willingham MD, Phone: [phone] 81-Zft-110088:30 LQD PAP [id number] PAPSMR Comment (Normal) Comments: The Pap smear [...] no HPV testing was performed. .Performed at: [facility] [address] [id number] Director: Nita Hernandez MD, Phone: [phone] COMM . (Normal) DIAGN Comment (Normal) Comments: NEGATIVE FOR INTRAEPITHELIAL LESION AND MALIGNANCY.CELLULAR CHANGES ASSOCIATED WITH ATROPHY ARE PRESENT.Satisfactory for evaluation.Kiran Gayle, Aspnet Developer ([facility]) :41 BONE SCAN WHOLE BODY Radiology [...] Report See Note (Normal) Comments: Exam Number: [id number] LINICAL:This is a 49-year-old female patient with [...] Report See Note (Normal) Comments: Exam Number: [id number] LINICAL:This is a 49 year old female [...] as noted above. Reported By: BARRERA GALEANA 5-Ifg-225031:41 THYROID (HP) Radiology Report See Note (Normal) Comments: Exam Number: [id number] LINICAL:This is a 49-year-old female patient with [...] described. Reported By: BARRERA GALEANA : ANTI-CCP [id number] 2 {units} (Normal) Range: 0-19 41 Comments: Negative <20 Weak positive 20 - 39 Moderate positive 40 - 59 Strong positive >59Performed at: [facility] [id number] Director: Eusebio Live MD, Phone: [phone] 28-Pri-083178:53 JACQUI DIR SEMI-QL JACQUI DIRECT 77 AU/mL (Normal) 55-Aub-894164:13 ESR SED RATE 5 mm/h (Normal) Range: 0-20 32-Ful-130181:05 RHEUMATOID FAC < 10.0 {IU/mL} (Normal) :05 [...] T PROT 6.9 g/dL (Normal) Range: 6.4-8.2 10-Upf-19100:27 TSH 0.61 {uIU/mL} (Normal) Range: 0.358-3.74 83-Ono-113604:13 CULTURE, URINE URINE CULTURE See Note {CFU/mL} (Normal) Comments: COLONY COUNT 1000-10,000 ORGANISM 1: MIXED GRAM POSITIVE ORGANISMS 21-Mhb-750156:13 LIPID HDL 68 mg/dL (Normal) Comments: Reference RangeHDL <40 mg/dL Low HDL CholesterolHDL >or= 60 mg/dL High HDL Cholesterol LDL 81 mg/dL (Normal) Range: 0-130 VLDL 17 mg/dL (Normal) Range: 5-40 CHOL 166 mg/dL (Normal) Comments: <200 mg/dL Ficlvfich456-757 mg/dL Borderline>240 mg/dL High Risk TRIG 85 mg/dL (Normal) Comments: Serum Triglycerides Reference IntervalNormal <150 mg/dLBorderline high 150 - 199 mg/dLHigh 200 - 499 mg/ dLVery High > or = 500 mg/dL 78-Uxx-806553:13 LIVER ALB 4.3 g/dL (Normal) Range: 3.4-5.0 ALK P 52 U/L (Normal) Range: 50-136 ALT 20 U/L (Normal) Range: 12-78 AST 11 U/L (Abnormal) Range: 15-37 D BILI 0.17 mg/dL (Normal) Range: 0.00-0.30 T BILI 0.80 mg/dL (Normal) Range: 0.00-1.00 T PROT 7.6 g/dL (Normal) Range: 6.4-8.2 67-Bfy-588719:13 TSH 0.49 {uIU/mL} (Normal) Range: 0.358-3.74 :13 VIT D,25 51034 63.3 ng/mL (Normal) Range: 32.0-100.0 Comments: Recent studies consider the lower limit of 32.0 ng/mL to ama threshold for optimal health.Fco GARCIA. J Nutr. 2004;135(2):317-22.Performed at: CB - [facility] [id number] Director: Iraida Willingham MD, Phone: [phone] 8-Wrd-072401:57 CHEST, PA AND LATERAL (MT) Radiology Report See Note (Normal) Comments: Exam Number: [id number] X-RAY EXAMINATION: CHEST CLINICAL:This is a 49-year-old [...] 6.4-8.2 GLU 90 mg/dL (Normal) Range: 70-110 68-Sxq-58626:14 COMPLETE UA BACTERIA 0 SEEN {/hpf} (Normal) [...] CHOL 320 mg/dL (Abnormal) Comments: <200 mg/dL Kywccpvol230-548 mg/dL Borderline>240 mg/dL High Risk TRIG 107 mg/dL (Normal) Comments: Serum Triglycerides Reference IntervalNormal <150 mg/dLBorderline high 150 - 199 mg/dLHigh 200 - 499 mg/ dLVery High > or = 500 mg/dL :14 T4 FREE DIRECT 0.70 ng/dL (Abnormal) Range: 0.76-1.46 :14 TSH 15.20 {uIU/mL} Range: 0.358-3.74 (Abnormal) 40-Nwl-500906:01 BILAT SCRN DIGITAL & CAD Radiology Report See Note (Normal) Comments: Exam Number: [id number] MAMMOGRAM, BILATERAL SCREENING DIGITAL AND CAD HISTORYRoutine [...] mammograms werealso examined with computer-aided detection software ([employer], [employer].). Reported By: MELISSA LEES M.D. Plan of Care Name Dates Details Instructions Acute bronchitis : Eprescribed prescriptions (G8553) Indication: [...] Side Effects Indication: Other hyperlipidemia Planned Observations T3, FREE (TRIDOTHYRONINE) (88756)Indication: Thyroid disorder On: 6-Tjw-230692:35 Request T4, FREE (THYROXINE) (42934)Indication: Thyroid disorder On: :35 Request TSH (37254)Indication: Thyroid disorder On: 0-Hok-217159:46 Request METABOLIC PANEL, COMPREHENSIVE (91944)Indication: Right flank pain On: 23-Prb-181108:21 Request Comments: stat CBC W/AUTO DIFF WBC (95023)Indication: Right flank pain On: 39-Eqk-689556:21 Request Comments: stat CBC with auto diff (94844)Indication: Impaired fasting glucose On: :53 Request METABOLIC PANEL, COMPREHENSIVE (77287)Indication: Impaired fasting glucose On: 1-Kog-854922:53 Request HGB A1C (88297)Indication: Impaired fasting glucose On: :53 Request LIPID PANEL (42652)Indication: Other hyperlipidemia On: :53 Request Vitamin D Hydroxy (64579)Indication: Vitamin D deficiency On: :10 Request LIPID PANEL (97769)Indication: Other hyperlipidemia On: :10 Request CBC with auto diff (09446)Indication: Impaired fasting glucose On: :08 Request METABOLIC PANEL, COMPREHENSIVE (25229)Indication: Impaired fasting glucose On: :08 Request C-REACTIVE PROTEIN (50836)Indication: Left-sided face pain On: :08 Request SED RATE ERYTHROCYTE (17114)Indication: Left-sided face pain On: :08 Request HGB A1C (12288)Indication: Impaired fasting glucose On: :08 Request CBC, PLATELETS & MANUAL DIFF (68880)Indication: Fatigue On: :44 Request EBV Panel (71901)Indication: Fatigue On: 51-Xst-513476:44 Request LIPID PANEL (59397)Indication: Other hyperlipidemia On: :00 Request CBC with auto diff (38282)Indication: Impaired fasting glucose On: :00 Request METABOLIC PANEL, COMPREHENSIVE (46375)Indication: Impaired fasting glucose On: :00 Request HGB A1C (71317)Indication: Impaired fasting glucose On: 2-Rxu-199074:00 Request LIPID PANEL (59067)Indication: Other hyperlipidemia On: :37 Request TSH (THYROID STIMULATING HORMONE) (91592)Indication: Acquired hypothyroidism On: :37 Request CBC with auto diff (91771)Indication: Impaired fasting glucose On: :35 Request METABOLIC PANEL, COMPREHENSIVE (22177)Indication: Impaired fasting glucose On: :35 Request MICROALBUMIN: CREATININE RATIO (18776) AND (34618)Indication: Impaired fasting glucose On: :35 Request HGB A1C (10656)Indication: Impaired fasting glucose On: :35 Request CBC W/AUTO DIFF WBC (82177)Indication: Primary adrenocortical insufficiency On: 30-Qvq-865822:06 Request METABOLIC PANEL, COMPREHENSIVE (72790)Indication: Primary adrenocortical insufficiency On: :06 Request LIPID PANEL (18204)Indication: Other hyperlipidemia On: :26 Request CBC with auto diff (08106)Indication: Impaired fasting glucose On: : Request METABOLIC PANEL, COMPREHENSIVE (51887)Indication: Impaired fasting glucose On: : Request HGB A1C (52568)Indication: Impaired fasting glucose On: : Request TSH (03532)Indication: Acquired hypothyroidism On: :59 Request Comments: 6 weeks RHEUMATOID FACTOR-QUANT (64041)Indication: Joint pain On: :02 Request C-REACTIVE PROTEIN (27921)Indication: Joint pain On: :02 Request SED RATE ERYTHROCYTE (30613)Indication: Joint pain On: :02 Request URIC ACID BLOOD (98687)Indication: Joint pain On: :02 Request T3, FREE (TRIDOTHYRONINE) (49518)Indication: Acquired hypothyroidism On: :58 Request T4, FREE (THYROXINE) ([id number])Indication: Acquired hypothyroidism On: :58 Request TSH (81695)Indication: Acquired hypothyroidism On: 56-Osp-981703:58 Request CBC W/AUTO DIFF WBC (02276)Indication: Edema, unspecified type On: :48 Request METABOLIC PANEL, COMPREHENSIVE (63393)Indication: Edema, unspecified type On: :48 Request SODIUM URINE (92454)Indication: Hyponatremia On: 65-Uih-891840:30 Request Vitamin D Hydroxy (35643)Indication: Hypocalcemia On: :31 Request PARATHORMONE (12541)Indication: Hypocalcemia On: :31 Request PHOSPHORUS (60075)Indication: Hypocalcemia On: :31 Request METABOLIC PANEL, COMPREHENSIVE (06076)Indication: Hypocalcemia On: 71-Rxv-487849:30 Request T3, FREE (TRIDOTHYRONINE) (10305)Indication: Acquired hypothyroidism On: 70-Rts-175306:20 Request T4, FREE (THYROXINE) (42044)Indication: Acquired hypothyroidism On: 91-Aua-687741:20 Request TSH (40027)Indication: Acquired hypothyroidism On: 04-Bzv-015314:20 Request HGB A1C (47788)Indication: Impaired fasting glucose On: :17 Request MICROALBUMIN: CREATININE RATIO (74544) AND (09651)Indication: Impaired fasting glucose On: :17 Request METABOLIC PANEL, COMPREHENSIVE (07756)Indication: Impaired fasting glucose On: :17 Request T3, FREE (TRIDOTHYRONINE) (59466)Indication: Acute nonintractable headache, unspecified headache type On: :46 Request T4, FREE (THYROXINE) (34964)Indication: Acute nonintractable headache, unspecified headache type On: 54-Pec-478109:46 Request TSH (76080)Indication: Acute nonintractable headache, unspecified headache type On: 84-Fwv-737427:46 Request TSH ([id number])Indication: Acquired hypothyroidism On: 52-Ldr-986292:46 Request T4, FREE (THYROXINE) ([id number])Indication: Acquired hypothyroidism On: 37-Mwd-328626:46 Request Metabolic Panel, Basic (74963)Indication: Hyponatremia On: 44-Qox-910435:46 Request T3, FREE (TRIDOTHYRONINE) (01900)Indication: Acquired hypothyroidism On: 1-Hod-198287:46 Request MICROALBUMIN: CREATININE RATIO (33913) AND ([id number])Indication: Impaired fasting glucose On: 7-Fra-243969:55 Request LIPOPROTEIN, BLD, BY NMR (27376)Indication: Other hyperlipidemia On: 8-Sbl-993847:55 Request METABOLIC PANEL, COMPREHENSIVE (63037)Indication: Osteoporosis On: 5-Gzi-953551:52 Request Vitamin D Hydroxy (69799)Indication: Osteopenia On: 31-Cof-583882:03 Request CBC W/AUTO DIFF WBC (46371)Indication: Gastroesophageal reflux disease without esophagitis On: 26-Idm-758863:03 Request METABOLIC PANEL, COMPREHENSIVE (09205)Indication: Other hyperlipidemia On: 64-Pzd-713758:03 Request LIPID PANEL (32465)Indication: Other hyperlipidemia On: 71-Atk-457343:03 Request DHEA-S (DEHYDROEPIANDROSTERONE SULFATE) (91525)Indication: Adrenal disorder, other On: :29 Request VITAMIN D, 1, 25-DIHYDROXY (85142)Indication: Vitamin D deficiency On: :29 Request T4, TOTAL (70954)Indication: Acquired hypothyroidism On: : Request T3, TOTAL (TRIDOTHYRONINE) (35511)Indication: Acquired hypothyroidism On: :29 Request T3, FREE (TRIDOTHYRONINE) (10057)Indication: Acquired hypothyroidism On: : Request T4, FREE (THYROXINE) (13665)Indication: Acquired hypothyroidism On: :28 Request TSH ([id number])Indication: Acquired hypothyroidism On: :28 Request T4, FREE (THYROXINE) (63909)Indication: Thyroid nodule On: 6-Yii-780684:57 Request T3, FREE (TRIDOTHYRONINE) (35458)Indication: Thyroid nodule On: :57 Request TSH (66607)Indication: Thyroid nodule On: :57 Request T3, FREE (TRIDOTHYRONINE) (98349)Indication: Acquired hypothyroidism On: :39 Request Comments: forward to Mello Jordanologist, [place] T4, FREE (THYROXINE) (62152)Indication: Acquired hypothyroidism On: :39 Request Comments: forward to Mello Jordanologist, [place] TSH (22532)Indication: Acquired hypothyroidism On: :39 Request Comments: forward to Marie Jordan, [place] DHEA (DEHYDROEPIANDROSTERONE) (05909)Indication: Adrenal disorder, other On: :39 Request Comments: forward to Marie Jordan, [place] CALCIFEDIOL (25129)Indication: Vitamin D deficiency On: :38 Request Comments: forward to Mello Jordanologist, [place] METABOLIC PANEL, COMPREHENSIVE ([id number])Indication: Other hyperlipidemia On: 04-Kar-972534:32 Request LIPID PANEL (28828)Indication: Other hyperlipidemia On: 12-Omv-496719:32 Request CBC W/AUTO DIFF WBC (64515)Indication: Macrocytosis without anemia On: 00-Gsr-277270:53 Request METABOLIC PANEL, COMPREHENSIVE (00207)Indication: Other hyperlipidemia On: 40-Ysg-069052:53 Request LIPID PANEL (47963)Indication: Other hyperlipidemia On: 76-Rhx-383690:53 Request METABOLIC PANEL, COMPREHENSIVE (70067)Indication: Other hyperlipidemia On: 11-Joa-403547:24 Request LIPID PANEL (77122)Indication: Other hyperlipidemia On: 32-Rta-394323:24 Request CULTURE, SPUTUM ([id number])Indication: Cough On: 46-Giu-801279:14 Request METABOLIC PANEL, COMPREHENSIVE (64794)Indication: Other hyperlipidemia On: 4-Zkg-937677:02 Request LIPID PANEL (73321)Indication: Other hyperlipidemia On: 2-Yqb-089876:02 Request CBC WITH MANUAL DIFF (70287)Indication: Upper Respiratory Infection On: 2-Old-964487:11 Request METABOLIC PANEL, COMPREHENSIVE (55190)Indication: Upper Respiratory Infection On: 8-Nds-970845:11 Request LIPID PANEL (19752)Indication: Other hyperlipidemia On: 8-Bzr-043455:11 Request LIPID PANEL (19022)Indication: Other hyperlipidemia On: 85-Ysr-218538:28 Request METABOLIC PANEL, COMPREHENSIVE (22640)Indication: Other hyperlipidemia On: 48-Mkr-317169:28 Request Vitamin D Hydroxy (99071)Indication: Osteopenia On: 06-Lzy-324050:16 Request CBC WITH MANUAL DIFF ([id number])Indication: Fatigue On: 65-Zsg-870921:16 Request METABOLIC PANEL, COMPREHENSIVE (95609)Indication: Fatigue On: 96-Lhv-167086:16 Request T3, FREE (TRIDOTHYRONINE) (58455)Indication: Acquired hypothyroidism On: 12-Brb-038429:16 Request T4, FREE (THYROXINE) (36560)Indication: Acquired hypothyroidism On: 47-Yyj-721836:16 Request TSH ([id number])Indication: Acquired hypothyroidism On: 11-Yjc-572666:16 Request LIPID PANEL (75287)Indication: Other hyperlipidemia On: 00-Viq-461938:15 Request T3, FREE (TRIDOTHYRONINE) (64437)Indication: Acquired hypothyroidism On: 21-Feb-2012 Request T4, FREE (THYROXINE) ([id number])Indication: Acquired hypothyroidism On: 21-Feb-2012 Request TSH ([id number])Indication: Acquired hypothyroidism On: 21-Feb-2012 Request Metabolic Panel, Basic (99304)Indication: Fatigue On: 22-Ctx-804090:58 Request Anti-TPO Antibody (69483)Indication: Acquired hypothyroidism On: 57-Ibd-664152:56 Request T3, FREE (TRIDOTHYRONINE) ([id number])Indication: Acquired hypothyroidism On: 83-Ztl-252012:56 Request T4, FREE (THYROXINE) (35700)Indication: Acquired hypothyroidism On: 07-Wja-841334:56 Request TSH (65872)Indication: Acquired hypothyroidism On: 44-Ado-802806:49 Request VITAMIN B-12 (CYANOCOBALAMIN) (54470)Indication: Macrocytosis without anemia On: :49 Request TSH (48907)Indication: Palpitations On: 78-Vrs-39149:48 Request METABOLIC PANEL, COMPREHENSIVE (74127)Indication: Syncope On: :48 Request CBC WITH MANUAL DIFF (00566)Indication: Syncope On: 04-Qez-61882:48 Request D-Dimer ([id number])Indication: Syncope On: :48 Request Comments: stat CBC WITH MANUAL DIFF (37654)Indication: inflammatory arthritis- following with valenke On: 74-Ril-375722:03 Request METABOLIC PANEL, COMPREHENSIVE (94679)Indication: inflammatory arthritis- following with valenke On: 82-Rei-702985:03 Request LIPID PANEL (59577)Indication: Other hyperlipidemia On: 36-Wxw-746235:03 Request TSH ([id number])Indication: Acquired hypothyroidism On: 95-Uls-32747:56 Request TSH (34717)Indication: Acquired hypothyroidism On: 9-Cve-675009:08 Request Comments: to be done in 8 weeks. METABOLIC PANEL, COMPREHENSIVE (81162)Indication: Dysphagia, unspecified dysphagia On: 79-Fib-064620:52 Request LIPID PANEL (65291)Indication: Other hyperlipidemia On: 92-Lpl-352854:52 Request TSH ([id number])Indication: Acquired hypothyroidism On: 37-Yyq-997995:52 Request TSH (53361)Indication: Acquired hypothyroidism On: 30-Kzm-521078:15 Request CULTURE, SPUTUM (06223)Indication: Cough On: 7-Wjp-317882:52 Request Throat Culture (43233)Indication: Unspecified bacterial pneumonia On: 93-Csg-053392:00 Request Comments: swab tounge per order from Dr. Brown ARELY CULTURE-OTHER ([id number])Indication: Unspecified bacterial pneumonia On: :43 Request EBV Panel ([id number])Indication: Fatigue On: :41 Request METABOLIC PANEL, COMPREHENSIVE (61161)Indication: Fatigue On: :41 Request CBC WITH MANUAL DIFF (79772)Indication: Fatigue On: :41 Request ARELY CULTURE-OTHER (52506)Indication: Pharyngitis, acute On: :24 Request Rapid Strep Test, Office (01817)Indication: Pharyngitis, acute On: :24 Request CBC WITH MANUAL DIFF (05915)Indication: Anxiety On: :13 Request METABOLIC PANEL, COMPREHENSIVE (81474)Indication: Other hyperlipidemia On: :13 Request T4, FREE (THYROXINE) (30448)Indication: Acquired hypothyroidism On: :12 Request T3, FREE (TRIDOTHYRONINE) (94481)Indication: Acquired hypothyroidism On: :12 Request TSH (30032)Indication: Acquired hypothyroidism On: :12 Request LIPID PANEL (60320)Indication: Other hyperlipidemia On: :11 Request URINE ARELY CULTURE-SPRING COL COUNT (41953)Indication: Urinary frequency On: :21 Request METABOLIC PANEL, COMPREHENSIVE (78037)Indication: Gastroesophageal reflux disease without esophagitis On: :19 Request CBC WITH MANUAL DIFF ([id number])Indication: Gastroesophageal reflux disease without esophagitis On: :19 Request HELICOBACTER PYLORI ANTIBODY PROFILE IgG, IgM, IgA (23990)Indication: Gastroesophageal reflux disease without esophagitis On: :13 Request CBC WITH MANUAL DIFF ([id number])Indication: Preoperative examination On: :42 Request METABOLIC PANEL, COMPREHENSIVE (15590)Indication: Preoperative examination On: : Request PTT (Activated Partial Thromboplastin Time) (25313)Indication: Preoperative examination On: :42 Request PT (Prothrobim Time) (87907)Indication: Preoperative examination On: : Request URINALYSIS, W/ MICRO (24411)Indication: Preoperative examination On: :41 Request TSH (20922)Indication: Acquired hypothyroidism On: :41 Request LIPID PANEL (37445)Indication: Other hyperlipidemia On: : Request ARELY CULTURE-OTHER (00359)Indication: Pharyngitis, acute On: 3-Gtg-467904:30 Request ARELY CULTURE-OTHER (49122)Indication: Pharyngitis, acute On: 9-Ufh-045616:14 Request Thin prep Pap (86498)Indication: Well woman exam On: 69-Tks-20666:47 Request Thin prep Pap (16732)Indication: Well woman exam On: 9-Hic-413418:09 Request Vitamin D Hydroxy (13605)Indication: Osteopenia On: :24 Request CBC WITH MANUAL DIFF (79469)Indication: 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 On: :24 Request METABOLIC PANEL, COMPREHENSIVE (55907)Indication: 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 On: :24 Request LIPID PANEL (93406)Indication: Other hyperlipidemia On: :24 Request TSH ([id number])Indication: Acquired hypothyroidism On: :23 Request Creatine Kinase Total (47663)Indication: Arthritis On: :06 Request METABOLIC PANEL, COMPREHENSIVE (56059)Indication: Arthritis On: : Request CCP ANTIBODY (30474)Indication: Arthritis On: :05 Request SED RATE ERYTHROCYTE (85169)Indication: Arthritis On: : Request C-REACTIVE PROTEIN (43457)Indication: Arthritis On: :05 Request JACQUI (ANTINUCLEAR ANTIBODY) (13611)Indication: Arthritis On: :05 Request RHEUMATOID FACTOR-QUANT (10140)Indication: Arthritis On: :05 Request TSH (84002)Indication: Acquired hypothyroidism On: :06 Request HEPATIC FUNCTION PANEL (24612)Indication: Other hyperlipidemia On: :06 Request LIPID PANEL (06463)Indication: Other hyperlipidemia On: :06 Request Vitamin D Hydroxy (28490)Indication: Osteopenia On: 6-Vrz-764026:27 Request LIPID PANEL (22819)Indication: Other hyperlipidemia On: :22 Request HEPATIC FUNCTION PANEL (06275)Indication: Other hyperlipidemia On: :21 Request URINE ARELY CULTURE (SPRING COL COUNT) (60605)Indication: Abnormal urine On: :19 Request TSH (50494)Indication: Acquired hypothyroidism On: :18 Request URINALYSIS, W/ MICRO (35180)Indication: Low back pain On: 82-Ffd-969427:50 Request T3, FREE (TRIDOTHYRONINE) (23273)Indication: Acquired hypothyroidism On: 75-Nyx-583063:50 Request T4, FREE (THYROXINE) ([id number])Indication: Acquired hypothyroidism On: 10-Fnh-214072:50 Request CBC WITH MANUAL DIFF (35899)Indication: Low back pain On: 67-Awc-592632:49 Request METABOLIC PANEL, COMPREHENSIVE (34042)Indication: Family history of diabetes mellitus On: 74-Gwg-333481:49 Request LIPID PANEL ([id number])Indication: Other hyperlipidemia On: 50-Ivj-585136:47 Request TSH ([id number])Indication: Acquired hypothyroidism On: 54-Znz-822272:47 Request Planned Encounters Medical; [facility] Pre Operative [facility] - surgery On: 20-Mar-2018 13:30 [facility] Fast DO, Martha A Fast DO, Martha A Planned Procedures CT - Abdomen & Pelvis Stone On: 08-Jan-2018 Intent ProtocolBy: Fast DO, Martha A Keivn Comments: stat call wet read DO, Martha A INJECTION, PROLIA ([id number])By: Kevin On: 05-Dec-2017 Intent DO, Martha A Fast DO, Martha A Comments: [id number] arm, SCprefilled syringeMLONG ELECTROCARDIOGRAM, COMPLETE (ECG) On: 05-Dec-2017 Intent (79555)By: Martha Brown DO A Kevin Comments: ekg showed normal sinus rhythym, normal axis, no acute st/t wave changes sinus ariana DO, Martha A MRI OF BRAIN WITH AND WITHOUT On: 01-Nov-2017 Intent CONTRAST ([id number])By: Martha Brown DO Comments: dont schedule on or A Fast DO, Martha A Flu Vaccine (Quadrivalent) 06995Ui: On: 01-Nov-2017 Intent Fast DO, Martha A Fast DO, Martha A Comments: Lot: [id number]: 08/26/18Site: L dltd, IMDose prefilled syringegiven by: Kahlil reviewed and ABN signed Radiology - Forearm - RightBy: Fast On: 28-Jun-2017 Intent DO, Martha A Fast DO, Martha A DEXA SCAN AXIAL SKELETON ([id number])By: On: 28-Jun-2017 Intent Fast DO, Martha A Fast DO, Martha A Comments: august SCREENING DIGITAL TOMOSYNTHESIS OF On: 28-Jun-2017 Intent BREAST (56801)By: Kevin SAMUEL Martha A Comments: august Fast DO, Martha A Radiology - Wrist - RightBy: Fast On: 28-Jun-2017 Intent DO, Martha A Fast DO, Martha A Comments: fall with outstrestched hand CT - Brain/Head (Without On: 28-Jun-2017 Intent Contrast)By: Kevin SAMUEL Martha A Kevin Comments: stat- fall down steps now headache DO, Martha A INJECTION, PROLIA ([id number])By: Kevin On: 18-May-2017 Intent DO, Martha A Fast DO, Martha A Comments: prolia injection 1 prefilled syringelot: [id number]: 05/2019RA sub-qAD [employer] AMBASS[employer]OR CHEST XRAY, PA & LATERAL ([id number])By: On: 01-May-2017 Intent Fast DO, Martha A Fast DO, Martha A INFUSION, NORMAL SALINE SOLUTION , On: 21-Apr-2017 Intent 1000 CC (Special Coverage Comments: 2nd bag same lot same exp Instructions Apply. See [facility]: 2048) ([id number])By: Fran Brown DOa A Fast DO, Martha A INFUSION, NORMAL SALINE SOLUTION , On: 21-Apr-2017 Intent 1000 CC (Special Coverage Comments: Site:[address] [place] [address] insyte Number of attemps:1Tolerated:wellLot/exp of NS [id number] 08/15Medication?: noMLONG, [employer] Instructions Apply. See [facility]: 2048) ([id number])By: Kevin DO, Martha A Fast DO, Martha A CHEST XRAY, PA & LATERAL ([id number])By: On: 21-Apr-2017 Intent Fast DO, Martha A Fast DO, Martha A Comments: 3 weeks Ultrasound - ThyroidBy: Kevin SAMUEL, On: 07-Mar-2017 Intent Martha A Fast DO, Martha A PNEUM VAC ADLT/IMUMNOSPR, SBC/INTRM On: 20-Dec-2016 Intent (75775)By: Martha Brown DO A Kevin Comments: pnuemovax prefilled syringe injectionlot: [id number]: 04/2018L DELT IMpt tolerated wellAD [employer] DO, Martha A Flu Vaccine (Quadrivalent) 97841Xl: On: 30-Nov-2016 Intent Kevin DO, Martha A Fast DO, Martha A Comments: lot: [id number]: 08/14/17ite/route: L michael, IMamt: 0.5mlVIS and ABN signed when applicableChelsea, CABINET ABRASIVE SANDBLASTER ELECTROCARDIOGRAM, COMPLETE (ECG) On: 29-Nov-2016 Intent (00731)By: Kevin SAMUEL Martha A Kevin Comments: ekg showed normal sinus rhythym, normal axis, no acute st/t wave changes DO, Martha A INJECTION, PROLIA ([id number])By: Kevin On: 04-Nov-2016 Intent DO, Martha A Fast DO, Martha A Comments: Lot:[id number]:08/14/17Dose:0.5mLRoute:IMSite:L DltdGiven By:ZACH signed Nuclear Stress Test/Stress On: 01-Sep-2016 Intent SPECT/TreadmillBy: Kevin SAMUEL, Martha A Fast DO, Martha A Aerosol Treatment (05866)By: Kevin On: 08-Aug-2016 Intent DO, Martha A Fast DO, Martha A SCREENING DIGITAL TOMOSYNTHESIS OF On: 08-Aug-2016 Intent BREAST (49332)By: Fast DO, Martha A Comments: end july Fast [...] Martha A Fast DO, Martha A Comments: Lot:[id number]:02/13Dose:60mLRoute:sub qSite: l armGiven By:ZACH signed MRI OF BRAIN WITH AND WITHOUT On: 08-Feb-2016 Intent CONTRAST (23267)By: Kevin DO Martha Comments: try to get this week- A Fast DO, Martha A Solu- Medrol Injection, 125mg On: 16-Dec-2015 Intent ([id number])By: Fast DO, Martha A Fast Comments: Lot:[id number]:04/2018Dose:125mgRoute:imSite:r hipGiven By:ZACH signed DO, Martha A Aerosol Treatment (32990)By: Kevin On: 16-Dec-2015 Intent DO, Martha A Fast DO, Martha A Flu Vaccine (Quadrivalent) 40676Br: On: 30-Nov-2015 Intent Fast DO, Martha A Fast DO, Martha A Comments: Lot:[id number]:08/26/16Dose:0.5mLRoute:IMSite:L DltdGiven By:ZACH signed MRI LUMBAR SPINE W/O CONTRAST On: 01-Sep-2015 Intent (43111)By: Kevin SAMUEL, Martha A Fast Comments: hx of spine surgery- has done pt and pain management and nsaids- getting weak ehl right DO, Martha A DEXA SCAN AXIAL SKELETON (68578)By: On: 06-Jul-2015 Intent Fast DO, Martha A Fast DO, Martha A MAMMOGRAM, SCREENING, BOTH BREAST On: 06-Jul-2015 Intent ([id number])By: Fast DO, Martha A Fast DO, Martha A Rocephon Injection, 1 Gm On: 06-Mar-2015 Intent ([id number])By: Kevin SAMUEL Martha A Fast Comments: lot: [id number]: 04/27/17ite/route: RGM/IMamt: 1GVIS signed when applicableMILLIE Crespo DO, Martha A Radiology - ChestBy: Nicole KAYE, On: 09-Feb-2015 Intent Abby Clemente Flu Vaccine (Quadrivalent) 06419Ht: On: 10-Dec-2014 Intent Fast DO, Martha A Fast DO, Martha A Comments: Lot #:[id number] date: 07/2015Amount given:prefilled syringeSite given:L Dltd, IMGiven by: WINNIE Hart and ABN signed ADMINISTRATION OF INFLUENZA VIRUS On: 10-Dec-2014 Intent VACCINE ([id number])By: Fast DO, Martha A Fast DO, Martha A BILATERAL MAMMOGRAMS (39982)By: On: 17-Jun-2014 Intent Fast DO, Martha A Fast DO, Martha A Comments: screening FLU VAC, SPLIT, >3 YEARS, INTRAMUSC On: 02-Dec-2013 Intent (43048)By: Kevin SAMUEL, Martha A Fast Comments: Lot #:[id number] date:10/2015Amount given:0.5mlRoute: IMSite given: left deltoidGiven by: GARETT Washington DO, Martha A IMMUNIZ ADMNIN, 1 VAC, SNGL/COMBO On: 02-Dec-2013 Intent (58825)By: Visit, Nurse CT OF RIGHT HIP WITH CONTRAST On: 30-Sep-2013 Intent (05929)By: Kevin SAMUEL Martha A Kevin Comments: with or without contrast DO, Martha A REMOVAL OF SUTURE BY A [...] A Fast DO, Martha A Pulse Oximetry (06216)By: Kevin DO, On: 14-May-2013 Intent Martha A Fast DO, Martha A Comments: 98 Spirometry (61994)By: Fast DO, On: 14-May-2013 Intent Martha A [...] SPLIT, >3 YEARS, INTRAMUSC On: 28-Jan-2013 Intent (24268)By: Kevin SAMUEL Martha A Fast Comments: Lot #:[id number] date:mount given:0.5mlRoute: IMSite given: L dltdVIS and ABN signedGiven by: GARETT Washington DO, Martha A IMMUNIZ ADMNIN, 1 VAC, SNGL/COMBO On: 28-Jan-2013 Intent (59558)By: Fast DO, Martha A Fast DO, Martha [...] Martha A Fast DO, Martha A Spirometry (20532)By: Kevin DO, On: 28-May-2012 Intent Martha A Fast DO, Martha A Comments: good effort and curve mild obst Pulse Oximetry (21366)By: Kevin DO, On: 28-May-2012 Intent Martha A Fast DO, Martha A Comments: 98 Breast Screening - BilateralBy: On: 28-May-2012 Intent Fast DO, Martha A Fast DO, Martha A Eprescribed prescriptions On: 28-May-2012 Intent (G8553)By: Patito Tineo Eprescribed prescriptions On: 27-Apr-2012 Intent (G8553)By: Patito Tineo Eprescribed prescriptions On: 13-Feb-2012 Intent (G8553)By: Fast DO, Martha A Fast DO, Martha A Eprescribed prescriptions On: 30-Jan-2012 Intent (G8553)By: Paitto Tineo FLU VAC, SPLIT, >3 YEARS, INTRAMUSC On: 09-Dec-2011 Intent (13278)By: Patito Tineo Comments: Lot #[id number]-8/30/13Site-left deltoidgiven by: Angela Vincent LPN IMMUNIZ ADMNIN, 1 VAC, SNGL/COMBO On: 09-Dec-2011 Intent (89042)By: Patito Tineo Nuclear Stress Test/Stress On: 22-Nov-2011 [...] A Comments: with 12mm tablet Pulse Oximetry (53629)By: Fast DO, On: 28-Jun-2011 Intent Martha A Fast DO, Martha A Comments: 98 Radiology - Chest- PA and LatBy: On: 28-Jun-2011 Intent Fast DO, Martha A Fast DO, Martha A Comments: stat call wet read Spirometry (21155)By: Fast DO, On: 28-Jun-2011 Intent Martha A Fast DO, Martha A Comments: good effort and curve normal Radiology - ChestBy: Fast DO, Martha On: 07-Jun-2011 Intent A Fast DO, Martha A Comments: PA/LAT (do in 1 month) Eprescribed prescriptions On: 07-Jun-2011 Intent (G8553)By: Fast DO, Martha A Fast DO, Martha A Pulse Oximetry (29765)By: Fast DO, On: 07-Jun-2011 Intent Martha A Fast DO, Martha A Comments: 95 Radiology - Chest- PA and LatBy: On: 07-Jun-2011 Intent Fast DO, Martha A Fast DO, Martha A Comments: call wet read MAMMOGRAM, SCREENING, BOTH BREASTS On: 20-May-2011 Intent (53135)By: Fast DO, Martha A Fast DO, Martha A Ultrasound - ThyroidBy: Fast DO, On: 27-Apr-2011 Intent Martha A Fast DO, Martha A TDAP VACCINE >7 IM (98836)By: On: 27-Apr-2011 Intent Patito Tineo Comments: 2009 FLU VAC, SPLIT, >3 YEARS, INTRAMUSC On: 21-Dec-2010 Intent (95620)By: Patito Tineo Comments: Lot #:[id number] date:mount given:0.5mlRoute: IMSite given:left deltGiven by: GARETT Washington IMMUNIZ ADMNIN, 1 VAC, SNGL/COMBO On: 21-Dec-2010 Intent (01501)By: Patito Tineo EKG (48531)By: Melissa SLOAN, Cynthia On: 27-Oct-2010 Intent Comments: [...] BONE DENSITY, AXIAL SKELETON On: 04-May-2010 Intent (17628)By: Patito Tineo MAMMOGRAM, SCREENING, BOTH BREASTS On: 04-May-2010 Intent (77407)By: Patito Tineo Clinical Breast Examination On: 04-May-2010 Intent (G0101)By: Patito Tineo Nuclear Medicine - Bone ScanBy: On: 02-Apr-2010 Intent Fast DO, Martha A Fast DO, Martha A Comments: full body- has neck pain and arthralgias and abnormal sacroiliac joint on xray-w ith focal sclerosis MAMMOGRAM, SCREENING, BOTH BREASTS On: 02-Apr-2010 Intent (06787)By: Kevin SAMUEL Martha A Kevin Comments: due end of may DO, Martha A Ultrasound - ThyroidBy: Columbamelissa, On: 23-Dec-2009 Intent Patito IMMUNIZ ADMNIN, 1 VAC, SNGL/COMBO On: 23-Dec-2009 Intent (91289)By: Kevin SAMUEL Martha A Kevin Comments: lot # [id number] 4Pexp- [id number]-WJDMadonz-QHtfrz- 0.5ML tolerated well Mari SHANE DO, Martha A FLU VAC, SPLIT, >3 YEARS, INTRAMUSC On: 23-Dec-2009 Intent (90237)By: Kevin DO, Martha A Fast DO, Martha A Spirometry (53948)By: Kevin SAMUEL, On: 26-Aug-2009 Intent Martha A Fast DO, Martha A Comments: good effort and curve normal Pulse Oximetry (34217)By: Kevin DO, On: 26-Aug-2009 Intent Martha A Fast DO, Martha A Comments: 99 Radiology - Chest- PA and LatBy: On: 26-Aug-2009 Intent Fast DO, Martha A Fast DO, Martha A EKG (85017)By: Kevin DO Martha A On: 02-Jul-2009 Intent Fast DO, [...] DO, Martha A Instructions Name Dates Details Acute bronchitis : How to access health [...] Other hyperlipidemia : DISCONTINUED - LIPID PANEL (08324) Indication: Other hyperlipidemia BMI between 19-24,adult : [...] Syncope : Patient Instructions Indication: Syncope Encounters Phone Encounter On: 07-Mar-2018 15:34 Encounter Diagnosis: Thyroid disorder End: 07-Mar-2018 15:38 [facility] Office Visit On: 07-Mar-2018 11:04 Encounter Reason: Follow up tests - Date: (03/02 blood work)., [ADDITIONAL REASON] Follow up for chronic medical issues - The patient feels well with minor complai End: 07-Mar-2018 14:44 nts (came in over [place] when Dr brown was out for a [...] smear (hysterectomy) and screening, visual acuity (Dr. aCrranza 2017 - goes back in january (maybe [...] day other than headache then mon and e felt lack of appetitie and then mon [...] is good- she not go [facility] as she wants to wait until [...] - did End: 05-Sep-2016 9:46 get to psychiatric- supposed to see endo doesnt think thyroid right- and doesnt have ms- seeing urolgoist oct 26- - saw neuro at psychiatric- - they think white matter partly migrainous- they looked at her mris - they going to send to pipeline technician as well- the valium reallyhelping her sleep [...] to treat her until see neuro at psychiatric- specialist to help determine- he increased her [...] daily stress with [facility] health issues [facility] - Encounter Diagnosis: Chronic intractable [...] year), screening, mammography (yearly), screening, Pap smear (mornoe stewart had pap in long time) and screening, visual acuity (yearly). Note for Physical exam: [facility] Wellness Physical- she is seeing Dr Wilburn on for her back and gettig thoracic mri and sa w painmanagement stillnot comfortable- tried fosamax in past gaver her terrible side effects gi upset , [ADDITIONAL REASON] Follow up, Laboratory Test Results - Date: (08/2015- [facility] Wellness labs). Encounter Diagnosis: BMI [...] Note for Hip problem: Pt was in [place] last week and slipped on wet ceramic [...] mammography, other (blood work) and ultrasound. Date: (SeptemberOctober 2012). Note for Discuss procedure results: saw [...] - she saw neurologist dr howard in [place]- he did tilt table table test and [...] no new complaints- seeing pain management at [facility] has good energy level and is [...] last surgery well on her back in 2006- same surgeon- doing at [facility]- she saw Noni who told ehr to [...] to touch-under shoulder blade- mobic not help- neshaoden- - pain pain down right arm- no [...] ,supplemental vitamins and low salt diet. The [facility] issues the patient is following up for [...] able to do more- and is joining [employer] to keep doing the exercises -- bp [...] Dr Gonzalez-- this person now moving to [place]- mentally the aquatherapy is helpi ng- physically [...] alot of help--was told last year chol marnie marin cook and her doctor wanted to put her on medsEncounter Diagnosis: Hyperlipidemia (272.4), Hypothyroidism (244.9), Degenerative Disc Disease - Lumbar (722.52), Spinal Stenosis, Unspecified Region (724.00), Family history of diabetes mellitus (V18.0), Low back pain (724.2), Abnormal mammogram (793.80), Fibrocystic Breast Disease (610.2), Hip bursitis 726.5 [facility] P[facility] HospitalTITA LAW; a guarantor
--- OUTSIDE RECORDS SUMMARY | 2018-05-23 11:13 | XMS RPT_ITS | Continuity of Care Document ---
:1960 Author Organization [facility] Address [address] [facility] [address] [place] [address] Phone Care Team Providers Name Role Phone [...] days Quantity: 80 {Tablet} Refills: 0 Ordered:07-Mar-2018 Kevin Martha SAMUEL DO, Debra A Start : 07-Mar-2018 Active Comments:per pain managment PredniSONE 5 MG Oral Tablet 1 (one) Tablet qd as directed for 90 days Quantity: 90 {Tablet} Refills: 3 Ordered:05-Dec-2017 Kevin Martha SAMUEL DO, Debra A Start : 05-Dec-2017 Active PredniSONE 5 MG Oral Tablet 1 (one) Tablet qd as directed for 30 days Quantity: 40 {Tablet} Refills: 0 Ordered:05-Dec-2017 Kevin Martha SAMUEL DO, Debra A Start : 05-Dec-2017 Active Comments:take with food in am ProAir HFA 108 (90 Base) MCG/ACT Inhalation Aerosol Solution 2 (two) Aerosol Soln qid, prn for 0 days Quantity: 1 {Inhaler} Refills: 2 Ordered:07-Mar-2018 Martha Brown DO, DO, Debra A Start : 07-Mar-2018 Active Comments:may substitute with whichever albterol inhaler cheapest Prolia 60 MG/ML Subcutaneous Solution 1 (one) Milliliter q 6 for 0 days Quantity: 1 {Milliliter} Refills: 0 Ordered:05-Dec-2017 Kevin Martha SAMUEL DO, Debra A Start : 05-Dec-2017 Active Propranolol HCl 20 MG Oral Tablet bid (20 MG) Active Rosuvastatin Calcium 20 MG Oral Tablet 1 (one) Tablet qhs for 90 days Quantity: 90 {Tablet} Refills: 3 Ordered:05-Dec-2017 Kevin Martha SAMUEL DO, Debra A Start : 05-Dec-2017 Active [...] days Quantity: 270 {Tablet} Refills: 3 Ordered:28-Jun-2017 Fast DO, Martha AFast DO, Martha A Start : 28-Jun-2017 Active [...] Quantity: 90 {Tablet} Refills: 3 Ordered:07-Mar-2018 Kevin SAMUELMartha DO, Debra A Start : [...] Quantity: 30 {Tablet} Refills: 0 Ordered:09-May-2016 Kevin SAMUELMartha DO, Debra A Start : 09-May-2016 End : 08-Jun-2016 Inactive Comments:thirty MAXALT, 10MG (Oral Tablet) 1 (one) Tablet prn for 30 days Quantity: 10 {Tablet} Refills: 0 Ordered:02-Sep-2013 Kevin SAMUELMartha DO, Debra A Start : 01-Jul-2013 End : 31-Jul-2013 Inactive MELATONIN, 5MG (Oral Tablet) 1 QHS for 0 days Refills: 0 Ordered:04-Jun-2010 Kareem Saloni SHANE End : 04-Jun-2010 Inactive MOBIC, 7.5MG (Oral Tablet) 1 tab qd, prn (7.5 MG) Inactive Neurontin 600 MG Oral Tablet 1 (one) Capsule Tablet bid for 0 days Quantity: 180 {Tablet} Refills: 3 Ordered:01-Sep-2016 Kevin SAMUELMartha DO, Debra A Start : 24-May-2016 End : 01-Sep-2016 Inactive NYSTATIN, 235162NQYE/ML (Mouth/Throat Suspension) 1 Suspension 5 cc 5 [...] {Suspension} Refills: 0 Ordered:15-Aug-2012 Martha Brown DO, DO Martha A Start : 15-Aug-2012 End : 15-Aug-2012 Discontinued NEXIUM, 40MG (Oral Capsule Delayed Release) [address] bid for 0 days Quantity: 60 {Capsule_DR} Refills: 3 Ordered:27-Apr-2011 Martha Brown DO, DO Martha A Start : 27-Apr-2011 End : 27-Apr-2011 Discontinued Comments:1 hour before bed- failed omeprazole and pepcid Morris 3 1200 MG Oral Capsule 2 qd [...] WITH Contrast Result: Comments: See Note; NOTES: [facility] [address] [place] [address] Abdomen/Pelvis WITH Contrast MR#: [id number] Acct: [id number] Name: TITA LAW Rep #: [id number] : 1960 F 57 From: Barrera Galeana MD PCP: Martha Brown DO Status: REG CLI Study: Abdomen/Pelvis WITH Contrast Date of Exam: 02/14/18 Exam# [id number] Ordering Dr: Chikis Ashley STUDY: CT ABDOMEN [...] Barrera Galeana MD at 10:47 EST Tel [phone], Service support , CC: Martha Brown DO; Chikis Ashley MD Oil Bay Technician: Signed 08-Jan-2018 Abdomen/Pelvis without Cont Result: Comments: See Note; NOTES: [facility] [address] [place] [address] Abdomen/Pelvis without Cont MR#: [id number] Acct: [id number] Name: TITA LAW Rep #: [id number] : 1960 F 57 From: Barrera Galeana MD PCP: Martha Brown DO Status: REG CLI Study: Abdomen/Pelvis without Cont Date of Exam: 01/08/18 Exam# [id number] Ordering Dr: Martha Brown DO S TUDY: [...] Barrera Galeana MD at 13:09 EST Tel [phone], Service support , CC: Martha Brown DO Oil Bay Technician: Signed 30-Dec-2017 Urgent Care Visit Report Result: Comments: See Note; NOTES: [facility] [address] [place] [address] OFFICE VISIT Date of Service: 12/30/17 MR#: [id number] Acct: [id number] Name: TITA LAW Rep #: [id number] : 1960 Provider: APPLE Casiano Age/Sex: 57/F Location: [facility] Status: Signed Intake Vital Signs12/30/17 Height 5 [...] person, oriented to place, oriented to time HENHI Head: normocephalic Ears: external ears normal, TM's [...] W/WO Contrast Result: Comments: See Note; NOTES: [facility] [address] [place] [address] Brain W/WO Contrast MR#: [id number] Acct: [id number] Name: TITA LAW Rep #: [id number] : 1960 F 57 From: Pedro Luis Akhtar MD PCP: Martha Brown DO Status: [facility] CLI Study: Brain W/WO Contrast Date of Exam: 11/06/17 Exam# [id number] Ordering Dr: Martha Brown DO STUDY: MRI [...] Service support , CC: Martha Brown DO Oil Bay Technician: Signed 31-Aug-2017 SCREENING MAMM (CAD), BILAT Result: Comments: See Note; NOTES: [facility] [address] [place] [address] SCREENING MAMM (CAD), BILAT MR#: [id number] Acct: [id number] Name: ANITITA Rita Rep #: [id number] : 1960 F 57 From: Barrera Galeana MD PCP: Martha Brown DO Status: [facility] Study: SCREENING MAMM (CAD), BILAT Date of Exam: 08/31/17 Exam# [id number] Ordering Dr: Martha Brown DO MAMMOGRAPHY - [...] biopsy of a clini griselda suspicious abnormality. [id number] Electronically Signed: Barrera Galeana MD at 14:24 EDT Tel [phone], Service support , CC: Martha Brown DO Oil Bay Technician: Signed 31-Aug-2017 Dexa Bone Density Study Result: Comments: See Note; NOTES: [facility] [address] [place] [address] Dexa Bone Density Study MR#: [id number] Acct: [id number] Name: TITA LAW Rep #: [id number] : 1960 F 57 From: Barrera Galeana MD PCP: Martha Brown DO Status: REG CLI Study: Dexa Bone Density Study Date of Exam: 08/31/17 Exam# [id number] Ordering Dr: Martha Brown DO STUDY: D [...] Barrera Galeana MD at 15:16 EDT Tel [phone], Service support , CC: Martha Brown DO Oil Bay Technician: Signed 27-Jul-2017 PT D/C Summary (1) Result: Comments: See Note; NOTES: [facility] [address] [place] [address]. [address] [place] [address] Fax REHABILITATION SERVICES [facility] SUMMARY MR#: [id number] Acct: [id number] Name: TITA LAW Rep #: [id number] : 1960 57 From: Alan Miller PT, Cert. T, OCS Referring DrIfeanyi: Maddie MCRAE Prebish Status: REG RCR Insu zafar: [facility] SELF PAY INSURANCE HP - PT [...] please feel free to call me at [phone]. Thank you for the referral of this patient. Sincerely, Alan Miller PT, <Electronically signed by Alan yuan PT, Cert. T, [facility]> 07/27/17 1739 CC: Maddie MCRAE Prebish; Martha Brown DO JLA Signed 28-Jun-2017 Forearm 2 Views Result: Comments: See Note; NOTES: [facility] [address] [place] [address] Forearm 2 Views MR#: [id number] Acct: [id number] Name: TITA LAW Rep #: [id number] : 1960 F 56 From: Jam Thomas MD PCP: Martha Brown DO Status: REG CLI Study: Forearm 2 Views Date of Exam: 06/28/17 Exam# [id number] Ordering Dr: Martha Brown DO STUDY: X-RAY [...] Service support , CC: Martha Brown DO Oil Bay Technician: Signed 28-Jun-2017 Wrist min 3 Views Result: Comments: See Note; NOTES: [facility] [address] [place] [address] Wrist min 3 Views MR#: [id number] Acct: [id number] Name: TITA LAW Rep #: [id number] : 1960 F 56 From: Jam Thomas MD PCP: Martha Brown DO Status: REG CLI Study: Wrist min 3 Views Date of Exam: 06/28/17 Exam# [id number] Ordering Dr: Martha Brown DO STUDY: X-RAY [...] Service support , CC: Martha Brown DO Oil Bay Technician: Signed 28-Jun-2017 Brain/Head without Contrast Result: Comments: See Note; NOTES: [facility] [address] [place] [address] Brain/Head without Contrast MR#: [id number] Acct: [id number] Name: TITA LAW Rep #: [id number] : 1960 F 56 From: Krzysztof Rivera MD PCP: Martha Brown DO Status: REG CLI Study: Brain/Head without Contrast Date of Exam: 06/28/17 Exam# [id number] Ordering Dr: Martha Brown DO STUDY : [...] Service support , CC: Martha Brown DO Oil Bay Technician: Signed 01-May-2017 Chest PA and Lateral Result: Comments: See Note; NOTES: [facility] [address] [place] [address] Chest PA and Lateral MR#: [id number] Acct: [id number] Name: TITA LAW Rep #: [id number] : 1960 F 56 From: Murray Palma MD PCP: Martha Brown DO Status: REG CLI Study: Chest PA and Lateral Date of Exam: 05/01/17 Exam# [id number] Ordering Dr: Martha Brown DO STUDY: X-RAY [...] MD at 17:05 EST , Service support [phone], CC: Martha Brown DO Oil Bay Technician: Signed 15-Apr-2017 Discharge Instruction Result: Comments: See Note; NOTES: [facility] Medical Records Department [address] [place] [address] Discharge Instruction 04/15/171812 MR#: [id number] Acct: [id number] Name: TITA MONTOYA Rep #: [id number] : 1960 56 From: Dusty Dumont MD PCP: Martha Brown DO Status: REG ER ED Disposition - Plan for ED Patient: Chief Complaint: Shortness of Breath Instructions: ED Pn [facility] Adult Prescriptions: Levofloxacin [Levaquin] 500 mg PO DAILY #7 tab Referrals: Martha Brown DO [Primary Care Provider] - What to do if you have Problems For any increased pain, shortness of b reath, bleeding, nausea or vomiting, chest pain, or any unexpected problems, contact your Primary Care Provider. Call [facility] ([phone]) or report to the closest Emergency Room. Call 911 if necessary. 04/15/171813 <Electronically signed by Dusty Dumont MD> Date Dusty Dumont MD Cosigner Signature (If Indicated): Da te CC: Martha Brown DO 15-Apr-2017 Emergency Department Summary Result: Comments: See Note; NOTES: [facility] Medical Records Department [address] [place] [address] Emergency Department Summary 04/15/171810 MR#: [id number] Acct: [id number] Name: ANI,TITA Rep #: [id number] : 1960 56 From: Dusty Dumont MD [...] acquired pneumonia This note was generated with pocketvillage software. It may contain incorrect words, spelling, and punctuation that were not noted in review of the chart prior to signing ED Disposition - Plan for ED Patient: Chief Complaint: Shortness of Breath Referrals: Fast,Martha, DO [Primary Care Provider] - What to do if you have Problems For any increased pain, shortness of breath, bleeding, nausea or vomiting, chest pain, or any unexpecte d problems, contact your Primary Care Provider. Call [facility] ([phone]) or report to the closest Emergency Room. Call 911 if necessary. 04/15/171812 <Electronically signed by Art Dumont MD> Date Dusty Dumont MD Cosigner Signature (If Indicated): Date CC: Martha Kevin SAMUEL 15-Apr-2017 Chest PA and Lateral Result: Comments: See Note; NOTES: [facility] [address] [place] [address] Chest PA and Lateral MR#: [id number] Acct: [id number] Name: TITA LAW Rep #: [id number] : 1960 F 56 From: Erasto Persaud MD PCP: Martha Brown DO Status: REG ER Study: Chest PA and Lateral Date of Exam: 04/15/17 Exam# [id number] Ordering Dr: Dusty Dumont MD STUDY: X-RAY [...] CC: Martha Brown DO; Dusty Dumont MD Oil Bay Technician: Signed 03-Apr-2017 Inital Evaluation (1) - PT Result: Comments: See Note; NOTES: [facility] Physical Therapy [facility] [address] [place] [address] Fax REHABILITATION SERVICES INITIAL EVALUATION MR#: [id number] Acct: [id number] Name: TITA LAW Rep #: [id number] : 1960 56 From: Alan Miller PT, Cert. MDT, OCS Referring Dr.: Maddie Munoz Status: REG RCR Insur ance: [facility] SELF PAY INSURANCE Patient's Visit Information TITA LAW is a 56 year old F referred to Physical Therapy by THOR Ridley SOIL SCIENCE TEACHER.LPREBI with a diagnosis of L-IVDD,L- STENOSIS,L-SPONDYLOPATHY,MYALGIA. Date [...] to be FAXED BACK to us at [phone] for Medicare purposes. Please let me know if there are questions or concerns regarding this plan of care. Physician Signature: Date: <Electronically signed by Alan Miller PT, Cert. PARRISH, RAMON> 04/03/17 1017 CC: Maddie Brown DO LISHA Signed For Medicare only, by signing this I certify the plan of care. Physicians Signature Date 08-Mar-2017 Thyroid Result: Comments: See Note; NOTES: [facility] [address] [place] [address] Thyroid MR#: [id number] Acct: [id number] Name: TITA LAW Rep #: [id number] : [birth year] F 56 From: Barrera Galeana MD PCP: Martha Brown DO Status: REG CLI Study: Thyroid Date of Exam: 03/08/17 Exam# [id number] Ordering Dr: Martha Brown DO STUDY: THYROID [...] Galeana MD at 14:4 9 EST Tel [phone], Service support , CC: Martha Brown DO Oil Bay Technician: Signed 06-Dec-2016 TXT - Blood Flow Screening Result: Comments: See Note; NOTES: [facility] [address] [place] [address] 12/06/16 0815 MR#: [id number] Acct: [id number] Name: TITA LAW Rep #: [id number] : 1960 56 From: Shane Cotto MD Attending Dr: Martha Brown DO Status: REG REF Ordering Dr: Date: 12/06/16 Location: [facility] Sex: F C Admitted: Reason For [...] Sharif e Dictated: 12/06/16814 Date Transcribed: 12/06/162139 Oil Bay Technician: Signed 13-Sep-2016 Stress Report Result: Comments: See Note; NOTES: [facility] Services [address] [place] [address] Agnes 4d MR#: [id number] Acct: [id number] Name: TITA LAW Rep #: [id number] [...] patient was injected with 32.8 mCi of Mixed Crop And Livestock Farmer 99m Cardiolite and subsequently stress SPECT Cardiolite [...] of 85%. This note was generated with [employer] software. It may contain incorrect words, spelling, and punctuation that were not noted in checking the not e before signing. 09/13/162053 <Electronically signed by Gato Blair MD> Date Gato Blair MD CC: Martha Brown DO; Gato Blair MD Date Dictated: 09/13/162046 Date Transcribed: 09/13/162046 Oil Bay Technician: PM Signed 30-Aug-2016 Electroencephalogram Result: Comments: See Note; NOTES: [facility] Pulmonary Services/Neurology [address] [place] [address] MR#: [id number] Acct: [id number] Name: TITA LAW Rep #: [id number] : 1960 56 From: Jacinto Salazar MD [...] Date Dic tated: 08/29/161720 Date Transcribed: 08/29/161720 Oil Bay Technician: RSR Signed 29-Aug-2016 SCREENING MAMM (CAD), BILAT Result: Comments: See Note; NOTES: [facility] [address] [place] [address] Verdana 4d SCREENING MAMM (CAD), BILAT MR#: [id number] Acct: [id number] Name: GINNY LAW LLBHAKTI Rep #: [id number] : 1960 F 56 From: Krzysztof White MD PCP: Martha Brown DO Status: REG CLI Study: SCREENING MAMM (CAD), BILAT Date of Exam: 08/29/16 Exam# [id number] Ordering Dr: Martha Brown DO MAMMOGRAPHY - [...] delay biopsy of a clinically suspicious abnormality. [id number] Electronically Signed: Dread White MD at 8:46 EDT , Service support , CC: Martha Brown DO Oil Bay Technician: Signed 25-Aug-2016 Echocardiogram Complete Result: Comments: See Note; NOTES: [facility] [address] [place] [address] Echo Complete 08/25/16 1207 MR#: [id number] Acct: [id number] Name: TITA LAW Rep #: [id number] : 1960 56 From: Conrado Nolasco MD [...] Conrado Nolasco MD on 017 01:18 PM 08/25/161317 Date Conrado Nolasco MD CC: Martha Brown DO Date Dictated: 08/25/16 1207 Date Transcribed: 08/25/161317 Oil Bay Technician: Signed 09-Aug-2016 Chest PA and Lateral Result: Comments: See Note; NOTES: [facility] [address] [place] [address] [place] [address] Verdana 4d Chest PA and Lateral MR#: [id number] Acct: [id number] Name: TITA LAW Marnie p #: [id number] : 1960 F 56 From: Dustin Villatoro DO PCP: Martha Brown DO Status: REG CLI Study: Chest PA and Lateral Date of Exam: 08/09/16 Exam# [id number] Ordering Dr: Martha Brown DO STUDY: X-RAY [...] Dustin Villatoro DO at 22:20 EDT T [phone], Service support , CC: Martha Brown DO Oil Bay Technician: Signed 21-Jul-2016 Thyroid Result: Comments: See Note; NOTES: [facility] [address] [place] [address] Verdana 4d Thyroid MR#: [id number] Acct: [id number] Name: TITA LAW Rep #: [id number] : 1960 F 56 From: Quentin Inman DO PCP: Martha Brown DO Status: REG CLI Study: Thyroid Date of Exam: 07/21/16 Exam# [id number] Ordering Dr: Martha rBown DO STUDY: THYROID ULTRASOUND REASON FOR EXAM: [...] Service support , CC: Martha Brown DO Oil Bay Technician: Signed 23-Jun-2016 Cerv Spine 4 or 5 Views Result: Comments: See Note; NOTES: [facility] [address] [place] [address] Verdana 4d Cerv Spine 4 or 5 Views MR#: [id number] Acct: [id number] Name: TITA LAW Rep #: [id number] : 1960 F 55 From: Hugo Pearce MD PCP: Martha Brown DO Status: REG CLI Study: Cerv Spine 4 or 5 Views Date of Exam: 06/23/16 Exam# [id number] Ordering Dr: Martha Brown DO STUDY: X-RAY [...] Service support , CC: Martha Brown DO Oil Bay Technician: Signed 23-Jun-2016 Cerv Spine 4 or 5 Views Result: Comments: See Note; NOTES: [facility] [address] [place] [address] Verda 4d Cerv Spine 4 or 5 Views MR#: [id number] Acct: [id number] Name: TITA LAW Rep #: [id number] : 1960 F 55 From: Hugo Pearce MD PCP: Martha Brown DO Status: REG CLI Study: Cerv Spine 4 or 5 Views Date of Exam: 06/23/16 Exam# [id number] Ordering Dr: Martha Brown DO ADDENDUM by [...] at 15:59 EDT Tel , Service support [phone], 06/28/16 1559 Date cc: Martha Brown DO [...] support , Fax CC: Martha Brown DO Oil Bay Technician: Signed 23-Jun-2016 Chest PA and Lateral Result: Comments: See Note; NOTES: [facility] [address] [place] [address] Verdana 4d Chest PA and Lateral MR#: [id number] Acct: [id number] Name: ANI,TITA Marnie p #: [id number] : 1960 F 55 From: Hugo Pearce MD PCP: Martha Brown DO Status: REG CLI Study: Chest PA and Lateral Date of Exam: 06/23/16 Exam# [id number] Ordering Dr: Martha Brown TUDY: X-RAY CHEST [...] Service support , CC: Martha Brown DO Oil Bay Technician: Signed 02-Jun-2016 Abdomen WITH IV Contrast Result: Comments: See Note; NOTES: [facility] Services [address] [place] [address] Verdana 4d Abdomen WITH IV Contrast MR#: [id number] Acct: [id number] Name: BESSY LAW Rep #: [id number] : 1960 F 55 From: Isela Wright MD PCP: Martha Brown DO Status: REG CLI Study: Abdomen WITH IV Contrast Date of Exam: 06/02/16 Exam# [id number] Ordering Dr: Martha Brown DO S TUDY: [...] MD at 7:28 EDT , Service support [phone], CC: Martha Brown DO Oil Bay Technician: Signed 02-Jun-2016 Abdomen WITH IV Contrast Result: Comments: See Note; NOTES: [facility] [address] [place] [address] Vernadaligia 4d Abdomen WITH IV Contrast MR#: [id number] Acct: [id number] Name: BESSY LAW Rep #: [id number] : 1960 F 55 From: Isela Wright MD PCP: Martha Brown DO Status: REG CLI Study: Abdomen WITH IV Contrast Date of Exam: 06/02/16 Exam# [id number] Ordering Dr: Martha Brown DO A DDENDUM [...] MD at 7:28 EDT , Service support [phone], Fax CC: Martha Brown DO Oil Bay Technician: Signed 19-May-2016 Hepatobilliary Img w/Pharm Int Result: Comments: See Note; NOTES: [facility] [address] [facility] [address] Verdaisy 4d Hepatobilliary Img w/Pharm Int MR#: [id number] Acct: [id number] Name: TITA LAW Rep #: [id number] : 1960 F 55 From: Mario Olivo DO PCP: Martha Brown DO Status: REG CLI Study: Hepatobilliary Img w/Pharm Int Date of Exam: 05/19/16 Exam# [id number] Ordering Dr: Carrnigton Brown DO CLINICAL: 55-year-old female with reported [...] at 22:51 EDT Tel , Service support [phone], CC: Martha Brown DO Oil Bay Technician: Signed 12-May-2016 Liver Result: Comments: See Note; NOTES: [facility] Imaging Services [address] [place] [address] Agnes 4d Liver MR#: [id number] Acct: [id number] Name: TITA LAW Rep #: [id number] : 1960 F 55 From: Barrera Galeana MD PCP: Martha Brown DO Status: REG CLI Study: Liver Date of Exam: 05/12/16 Exam# [id number] Ordering Dr: Martha Brown DO STUDY: ABDOMINAL [...] Barrera Galeana MD at 11:28 EDT Tel [phone], Service anthnoy pport [phone], CC: Martha Brown DO Oil Bay Technician: Signed 20-Apr-2016 NCS and/or EMG Patient Result: Comments: See Note; NOTES: [facility] Pulmonary Services/Neurology [address] [place] [address] NCS and/or EMG Patient MR#: [id number] Acct: [id number] Name: TITA LAW Rep #: [id number] : 1960 55 From: Pardeep Read MD Referring Dr: Eusebio Braswell MD Status: REG CLI Ordering Dr: Eusebio Braswell MD Date: 04/20/16 Location: N Sex: F C DATE OF SERVICE: 2016 [...] nerve. Pardeep Read MD T: NTS JOB: [id number] 04/20/16 1556 <Electronically signed by Pardeep Read MD> Date Pardeep Read MD CC: Martha Brown DO; Pardeep Read MD; Eusebio Braswell MD Date Dictated: 04/20/161106 Date Transcribed: 04/20/161106 Oil Bay Technician: Signed 15-Mar-2016 Fluoro Guided Lumbar Puncture Result: Comments: See Note; NOTES: [facility] [address] [place] [address] Verdana 4d Fluoro Guided Lumbar Puncture MR#: [id number] Acct: [id number] Name: Niecy LAW Rep #: [id number] : 1960 F 55 From: Barrera Galeana MD PCP: Martha Brown DO Status: REG CLI Study: Fluoro Guided Lumbar Puncture Date of Exam: 03/15/16 Exam# [id number] Ordering Dr: Pepper Benoit PROCEDURE: Fluoroscopic guided [...] procedure were explained to the patient. [facility] risks of bleeding, infection, and neurovascular [...] Barrera Galeana MD at 10:09 EST Tel [phone], Service support [phone], CC: Pepper Barr SOIL SCIENCE TEACHER; Martha Brown DO Oil Bay Technician: Signed 11-Mar-2016 Thyroid Result: Comments: See Note; NOTES: [facility] Services [address] [place] [address] Verdana 4d Thyroid MR#: [id number] Acct: [id number] Name: TITA LAW Rep #: [id number] : 1960 F 55 From: Barrera Galeana MD PCP: Martha Brown DO Status: REG CLI Study: Thyroid Date of Exam: 03/11/16 Exam# [id number] Ordering Dr: Martha Brown DO STUDY: THYROID [...] Barrera Galeana MD at 15:57 EST Tel [phone], Service support [phone], CC: Martha Brown DO Oil Bay Technician: Signed 10-Feb-2016 Brain W/WO Contrast Result: Comments: See Note; NOTES: [facility] Services [address] [place] [address] Verdana 4d Brain W/WO Contrast MR#: [id number] Acct: [id number] Name: TITA LAW Rep #: [id number] : 1960 F 55 From: Madeleine Villar MD PCP: Martha Brown DO Status: REG CLI Study: Brain W/WO Contrast Date of Exam: 02/10/16 Exam# [id number] Ordering Dr: Martha Brown DO STUDY: MRI [...] MD at 23:33 EST , Service support [phone], CC: Martha Brown DO Oil Bay Technician: Signed 25-Jan-2016 Cerv Spine 2 or 3 Views Result: Comments: See Note; NOTES: [facility] Imaging Services [facility] [place] [address] Verdana 4d Cerv Spine 2 or 3 Views MR#: [id number] Acct: [id number] Name: TITA LAW Rep #: [id number] : 1960 F 55 From: Julio Cesar Soto MD PCP: Martha Brown DO Status: REG CLI Study: Cerv Spine 2 or 3 Views Date of Exam: 01/25/16 Exam# [id number] Ordering Dr: Matt Wilburn STUDY : X-RAY [...] FACR at 16:52 EST , Service support [phone], CC: MATT WILBURN; Martha Brown DO Oil Bay Technician: Signed 25-Jan-2016 Spine Cervical (Routine) Result: Comments: See Note; NOTES: [facility] Services [address] [place] [address] Verdana 4d Spine Cervical (Routine) MR#: [id number] Acct: [id number] Name: BESSY LAW Rep #: [id number] : 1960 F 55 From: Julio Cesar Soto MD PCP: Martha Brown DO Status: REG CLI Study: Spine Cervical (Routine) Date of Exam: 01/25/16 Exam# [id number] Ordering Dr: Matt Wilburn MELODIE DY: MRI CERVICAL SPINE WITHOUT CONTRAST REASON [...] FACR at 15:55 EST , Service support [phone], CC: MATT Brown DO Oil [place] Technician: Signed 31-Dec-2015 L/S Spine Bending Flex/Ext Result: Comments: See Note; NOTES: [facility] [address] [place] [address]255 Verdana 4d L/S Spine Bending Flex/Ext MR#: [id number] Acct: [id number] Name: GINNY LAW LLIS Rep #: [id number] : 1960 F 55 From: Barrera Galeana MD PCP: Martha Brown DO Status: REG CLI Study: L/S Spine Bending Flex/Ext Date of Exam: 12/31/15 Exam# [id number] Ordering Dr: Carrington Wilburn STUDY: X-RAY - [...] Galeana MD 4 at 11:17 EDT Tel [phone], Service support [phone], CC: MATT WILBURN; Martha Brown DO Oil [place] Technician: Signed 24-Dec-2015 Chest 1 View (Portable) Result: Comments: See Note; NOTES: [facility] [address] [place] [address]363 Verdana 4d Chest 1 View (Portable) MR#: [id number] Acct: [id number] Name: BESSY LAW Rep #: [id number] : 1960 F 55 From: Barrear Galeana MD PCP: Martha Brown DO Status: REG ER Study: Chest 1 View (Portable) Date of Exam: 12/24/15 Exam# [id number] Ordering Dr: Rashad Acosta MD STUDY: X-RAY [...] Barrera Galeana MD at 15:13 EDT Tel [phone], Service support [phone], CC: Martha Brown DO; Rashad Acosta MD Oil [place] Technician: Signed 10-Oct-2015 Spine Lumbar without Contrast Result: Comments: See Note; NOTES: [facility] [address] [place] [address]1952 Verdana 4d Spine Lumbar without Contrast MR#: [id number] Acct: [id number] Name: TITA LAW Rep #: [id number] : 1960 F 55 From: Quentin Inman DO PCP: Martha Brown DO Status: REG CLI Study: Spine Lumbar without Contrast Date of Exam: 10/10/15 Exam# [id number] Ordering Dr: Ruben Wilburn STUDY: CT LUMBAR [...] at 16:29 EDT Tel , Service support [phone], CC: MATT WILBURN; Martha Brown DO [place] Technician: Signed 07-Oct-2015 Spine Thoracic (Routine) Result: Comments: See Note; NOTES: [facility] [address] [facility] [place] [address] Agnes 4d Spine Thoracic (Routine) MR#: [id number] Acct: [id number] Name: SARINA LAW IS Rep #: [id number] : 1960 F 55 From: Basil Culver MD PCP: Fast DO,Martha Status: REG CLI Study: Spine Thoracic (Routine) Date of Exam: 10/07/15 Exam# [id number] Ordering Dr: MANDEEP DILLON MD STUDY: MRI [...] at 16:32 EDT Tel , Service support [phone], CC: Martha Brown DO; MANDEEP DILLON MD [place] Technician: Signed 29-Sep-2015 ELECTROCARDIOGRAM, COMPLETE (ECG) (58982) Comments: ekg showed normal sinus rhythym, normal axis, no acute st/t wave changes Result: [MEASUREMENTS ANALYSIS] Date of Test: 09/29/2015 10:02:56; Heart Rate: 70; NJ Interval: 158; QRS: 90; QT Interval: 396; Corrected QT Interval (QTc): 413; P Wave Marked Tree: 73; QRS Wave Marked Tree: 71; T Wave Marked Tree: 67; Blood Pressure: 110/70 [ECG DIAGNOSTIC STATEMENTS] Date of Test: 09/29/2015 10:02:56; Summary: Sinus Rhythm WITHIN NORMAL LIMITS 03-Sep-2015 Spine Lumbar (Routine) Result: Comments: See Note; NOTES: [facility] [address] [place] [address] Vernadaligia 4d Spine Lumbar (Routine) MR#: [id number] Acct: [id number] Name: TITA DUEÑAS Rep #: [id number] : 1960 F 55 From: Julio Cesar Soto MD PCP: Martha Brown DO Status: REG CLI Study: Spine Lumbar (Routine) Date of Exam: 09/03/15 Exam# [id number] Ordering Dr: Martha Brown DO STUDY: MRI [...] FACR at 11:54 EDT , Service support [phone], CC: Martha Brown DO [place] Technician: Signed 27-Aug-2015 Bilat Scrn Digital AND CAD Result: Comments: See Note; NOTES: [facility] [address] [place] [address]3625 Verdana 4d Bilat Scrn Digital AND CAD MR#: [id number] Acct: [id number] Name: TITA LAW Rep #: [id number] : 1960 F 55 From: Barrera Galeana MD PCP: Martha Brown DO Status: REG CLI Study: Bilat Scrn Digital AND CAD Date of Exam: 08/27/15 Exam# [id number] Ever rocha Dr: Martha Brown DO MAMMOGRAPHY [...] delay biopsy of a clinically suspicious abnormality. [id number] Electronically Signed: Barrera Galeana MD a t 8:51 EDT Tel [phone], Service support [phone], CC: Martha Brown DO [place] Technician: Signed 27-Aug-2015 Dexa Bone Density Study (HP) Result: Comments: See Note; NOTES: [facility] [address] [place] [address] Agnes 4d Dexa Bone Density Study (HP) MR#: [id number] Acct: [id number] Name : TITA LAW Rep #: [id number] : 1960 F 55 From: Barrera Galeana MD PCP: Fast DO,Martha Status: REG CLI Study: Dexa Bone Density Study () Date of Exam: 08/27/15 Exam# [id number] Or bernardo Dr: Martha Brown DO STUDY: [...] Barrera Galeana MD at 14:42 EDT Tel [phone], Service support [phone], CC: Martha Brown DO [place] Technician: Signed 27-Aug-2015 Hip 2-3 Views with Pelvis Result: Comments: See Note; NOTES: [facility] [address] [place] [address] Verda 4d Hip 2-3 Views with Pelvis MR#: [id number] Acct: [id number] Name: TITA AMBROCIO Rep #: [id number] : 1960 F 55 From: Murray Palma MD PCP: Martha Brown DO Status: REG CLI Study: Hip 2-3 Views with Pelvis Date of Exam: 08/27/15 Exam# [id number] Ordering Dr: Martha Johnson DO STUDY: X-RAY [...] MD at 16:31 EDT , Service support [phone], RAD/Hip 2-3 Views with Pelvis IMPRESSION: Osteopenia with post-surgical changes in the lower lumbar spine. No acute pathology identified. Electr onically Signed: Murray Palma MD at 16:31 EDT , Service support [phone], CC: Martha Brown DO [place] Technician: Signed 09-Feb-2015 Chest PA and Lateral Result: Comments: See Note; NOTES: [facility] [address] [place] [address]254 Verdana 4d Chest PA and Lateral MR#: [id number] Acct: [id number] Name: TITA MCLEAN Rep #: [id number] : 1960 F 54 From: Barrera Galeana MD PCP: Martha Brown DO Status: REG CLI Study: Chest PA and Lateral Date of Exam: 02/09/15 Exam# [id number] Ordering Dr: Abby Rivera STUDY: X-RAY CHEST [...] Barrera Galeana MD at 15:21 EST Tel [phone], Service support [phone], RAD/Chest PA and Lateral IMPRESSION: Hyperinflation. No acute abnormality is seen. Electronically Signed: Barrera Galeana MD at 15:21 EST Tel [phone], Service support [phone], CC: Abby Rivera; Martha Brown DO [place] Technician: Signed 30-Jun-2014 Bilat Scrn Digital AND CAD Result: Comments: See Note; NOTES: [facility] [address] [place] [address] Breast Imaging Report MR#: [id number] Acct: [id number] Name: TITA LAW Rep #: [id number] : 1960 F 53 From: Barrera Galeana MD PCP: Martha Brown DO Status: REG CLI Study: Bilat Scrn Digital AND CAD Date of Exam: 06/30/14 Exam# [id number] Ordering Dr: Martha Brown DO MAMMOGRAPHY - [...] Galeana MD at 9 :06 EDT Tel [phone], Service support [phone], CC: Martha Brown DO [place] Technician: Signed 07-Oct-2013 Extremity Lower WITH Contrast Result: Comments: See Note; NOTES: [facility] [address] [place] [address] CAT Scan Report MR#: [id number] Acct: [id number] Name: TITA LAW Rep #: [id number] : 1960 F 53 From: Barrera Galeana MD PCP: Martha Brown DO Status: REG CLI Study: Extremity Lower WITH Contrast Date of Exam: 10/07/13 Exam# [id number] Ordering Dr: Martha Brown DO STUDY: CT [...] Barrera Galeana MD at 15:02 EDT Tel [phone], Service support [phone], CC: Martha Brown DO [place] Technician: Signed 25-Sep-2013 Forearm 2 Views Result: Comments: See Note; NOTES: [facility] [address] [place] [address] Radiology Report MR#: [id number] Acct: [id number] Name: TITA LAW Rep #: [id number] : 1960 F 53 From: Barrera Galeana MD PCP: Martha Brown DO Status: REG CLI Study: Forearm 2 Views Date of Exam: 09/25/13 Exam# [id number] Ordering Dr: Martha Brown DO STUDY: X-RAY [...] Barrera Galeana MD at 16:16 EDT Tel [phone], Service support [phone], RAD/Forearm 2 Views IMPRESSION: Normal x-ray examination of the radius and ulna. Electronically Signed: Barrera Galeana MD at 16:16 EDT Tel [phone], Service support [phone], CC: Martha Brown DO [place] Technician: Signed 25-Sep-2013 Hip min 2 Views Result: Comments: See Note; NOTES: [facility] [address] [place] [address] Radiology Report MR#: [id number] Acct: [id number] Name: TITA LAW Rep #: [id number] : 1960 F 53 From: Barrera Galeana MD PCP: Martha Brown DO Status: REG CLI Study: Hip min 2 Views Date of Exam: 09/25/13 Exam# [id number] Ordering Dr: Martha Brown DO STUDY: X-RAY [...] Barrera Galeana MD at 16:18 EDT Tel [phone], Service support [phone], Fax CC: Martha Brown DO [place] Technician: Signed 25-Sep-2013 Pelvis 1 or 2 Views Result: Comments: See Note; NOTES: [facility] [address] [place] [address] Radiology Report MR#: [id number] Acct: [id number] Name: TITA LAW Rep #: [id number] : 1960 F 53 From: Khang Braun MD PCP: Martha Brown DO Status: REG CLI Study: Pelvis 1 or 2 Views Date of Exam: 09/25/13 Exam# [id number] Ordering Dr: Martha Brown DO STUDY: X-RAY [...] MD at 16:24 EDT , Service support [phone], 0063 RAD/Pelvis 1 or 2 Views IMPRESSION: Normal x-ray examination of the pelvis. Electronically Signed: Khang Braun MD at 16:24 EDT , Service support [phone], CC: Martha Brown DO [place] Technician: Signed 25-Sep-2013 Thoracic Spine 3 Views Result: Comments: See Note; NOTES: [facility] [address] [place] [address] Radiology Report MR#: [id number] Acct: [id number] Name: TITA LAW Rep #: [id number] : 1960 F 53 From: Barrera Galeana MD PCP: Martha Brown DO Status: REG CLI Study: Thoracic Spine 3 Views Date of Exam: 09/25/13 Exam# [id number] Ordering Dr: Martha Brown DO STUDY: X-RAY [...] Ac Galeana MD at 16:19 EDT Tel [phone], Service support [phone], RAD/Thoracic Spine 3 Views IMPRESSION: Degenerative changes. Elect ronically Signed: Barrera Galeana MD at 16:19 EDT Tel [phone], Service support [phone], CC: Martha Brown DO [place] Technician: Signed 24-Jun-2013 Bilat Scrn Digital & CAD Result: Comments: See Note; NOTES: [facility] [address] [place] [address] Breast Imaging Report MR#: [id number] Acct: [id number] Name: TITA LWA Rep #: [id number] : 1960 F 52 From: Barrera Galeana MD PCP: Martha Brown DO Status: REG CLI Exam# [id number] Ordering Dr: Shahla Myers MD MAMMOGRAPHY - [...] Barrera Galeana MD at 9:32 EDT Tel [phone], Service support [phone], F ax [phone] CC: Martha Brown DO; Shahla Myers MD [place] Technician: Signed 14-May-2013 Chest PA and Lateral Result: Comments: See Note; NOTES: [facility] [address] [place] [address] Radiology Report MR#: [id number] Acct: [id number] Name: TITA LAW Rep #: [id number] : 1960 F 52 From: Barrera Galeana MD PCP: Martha Brown DO Status: REG CLI Study: Chest PA and Lateral Date of Exam: 05/14/13 Exam# [id number] Ordering Dr: Martha Brown DO STUDY: X [...] M.D. at 14:47 EDT , Service support [phone], CC: Martha Brown DO [place] Technician: Signed Family History Unknown Family Member Name [...] kg/m2 Body Surface Area Calculated 1.76 m2 85-Szh-559075:25 Temperature 97.9 f Comments: Method: Temporal Pulse [...] kg/m2 Body Surface Area Calculated 1.8 m2 81-Wph-686183:15 Comments: /72, 60sitting 98/56 67standing 94/58, 78 Temperature 97.5 [...] 155 lb Results Date Description Value Details 3-Hjl-263280:12 CBC W/Diff, Automated Comments: [facility] [address] [place], [address] Absolute Lymph 1.71 {X10_3/ul} (Normal) [...] 4.2-5.4 WBC 8.2 K/mm3 (Normal) Range: 4.4-11.0 4-Zdo-943996:12 Comprehensive Metabolic Comments: ADD TSH ON TO 0104:[id number]:XJ4-0-ONotjpvpWexner Medical Center [address]gjp[address] [place], [place], [address] Profil GAP 9 (Normal) Range: 5-15 CO2 [...] Comments: Please note revised GLUCOSE reference range bjqvspuxy13/02/2018. 1-Cnt-798338:12 Hemoglobin A1c Comments: [facility] Xzvxdjnssy5577 [facility] [place], [place], [address] HGB A1C 5.8 % (Normal) Range: 4.2-6.3 2-Rcg-309190:12 Lipid Profile Comments: ADD TSH ON TO 0104:[id number]:YC4-2-BBssvglbWexner Medical Center Nwoacqeqyv9[address] [facility] [place], [place], [address] VLDL 15 mg/dL (Normal) Range: 5-40 LDL [...] 200-240 mg/dL Borderline >240 mg/dL High Risk 1-Xoe-162354:12 Thyroid Stim Hormone Comments: ADD TSH ON TO 0104:[id number]:EL1-0-NFhkjdsnWexner Medical Center Ngalyhywtn2061 [facility] [address]. [place], [place], [id number] (TSH) TSH 0.15 {uIU/mL} (Abnormal) Range: 0.358-3.74 57-Khr-225281:56 CBC W/Diff, Automated Comments: [facility] [address] [place], [place], [address] Absolute Lymph 1.33 {X10_3/ul} (Normal) Range: 0.83-4.51 [...] 4.2-5.4 WBC 14.0 K/mm3 (Abnormal) Range: 4.4-11.0 09-Ngs-375075:56 Comprehensive Metabolic Profil Comments: [facility] [address] [place], [place], [address] GAP 9 (Normal) Range: 5-15 CO2 26.0 [...] Comments: Please note revised GLUCOSE reference range ipoiipixv28/02/2018. 91-Opf-866116:15 URINE ARELY CULTURE-IDENTIFICATN Comments: PATIENT NOT FASTINGPERFORMED BY: [facility] Qeligi6171 [facility] [id number] Information: SRC:UC (81205) Result 1 NG36 (Normal) Comments: No growth in 36 - 48 hours. Urine Culture,Comprehensive Final report (Normal) 46-Jnt-254324:01 Urinalysis, Office (00472) UA - LEUKOCYTE ESTERASE Large (Normal) UA - NITRITE Positive (Normal) URINE UROBILINGN SPRING TIMED 2 mg/dL (Normal) UA - PROTEIN 300 mg/dL (Normal) UA - PH 7 (Normal) UA - BLOOD Hemolyzed Large (Normal) UA - SPECIFIC GRAVITY 1.020 (Normal) UA - KETONES 15 mg/dL (Abnormal) UA - BILIRUBIN Large (Normal) UA - GLUCOSE Negative (Normal) 4-Xrm-254257:45 Culture, Urine Comments: [facility] [address] [place], [address] CUUR See Note (Normal) Comments: Urine CultureORGANISM [...] $ >=320 R(NF) indicates non-formulary drug at [facility]. Approval by Infectious Disease Specialist required before non-formulary drugs may be ordered and/or dispensed. 7-Wjg-294956:45 Urinalysis, Complete Comments: How was Urine Obtained? CLEAN [facility] [address] [place], [address] CA OX CRYSTAL 1+ {/hpf} (Normal) MUCUS, [...] (Normal) CLARITY Cloudy (Normal) COLOR Yellow (Normal) 55-Nlf-315644:49 CBC (AUTO) (86996) Comments: PATIENT NOT FASTINGPERFORMED BY: [facility] Fprnye2787 [facility]3TEN8[facility] [id number] Platelets 303 {x10E3/uL} (Normal) Range: 150-379 RDW 14.5 % (Normal) Range: 12.3-15.4 MCHC 33.9 g/dL (Normal) Range: 31.5-35.7 MCH 32.4 pg (Normal) Range: 26.6-33.0 MCV 96 fL (Normal) Range: 79-97 Hematocrit 37.5 % (Normal) Range: 34.0-46.6 Hemoglobin 12.7 g/dL (Normal) Range: 11.1-15.9 RBC 3.92 {x10E6/uL} (Normal) Range: 3.77-5.28 WBC 7.9 {x10E3/uL} (Normal) Range: 3.4-10.8 30-Utc-716270:49 MICROALBUMIN: CREATININE RATIO Comments: PATIENT NOT FASTINGPERFORMED BY: [facility] Izqczj6374 [facility] [id number] (48558) AND (95069) Alb/Creat Ratio 4.1 {mg/g_creat} (Normal) Range: 0.0-30.0 Comments: Normal: 0.0 - 30.0 Albuminuria: 31.0 - 300.0 Clinical albuminuria: >300.0 Albumin, Urine 6.7 ug/mL (Normal) Creatinine, Urine 161.5 mg/dL (Normal) 02-Kic-720088:49 METABOLIC PANEL, COMPREHENSIVE Comments: PATIENT NOT FASTINGPERFORMED BY: [facility] Aoxiuw1924 [facility] [id number]; appt 12/05 (68104) ALT (SGPT) 14 [iU]/L (Normal) Range: 0-32 [...] 6-24 Glucose 94 mg/dL (Normal) Range: 65-99 3-Sbm-846988:22 CBC W/Diff, Automated Comments: [facility] [address] [place], [address] Absolute Lymph 1.79 {X10_3/ul} (Normal) [...] 4.2-5.4 WBC 6.3 K/mm3 (Normal) Range: 4.4-11.0 3-Zht-711541:22 Comprehensive Metabolic Profil Comments: [facility] [address] [place], [address] GAP 8 (Normal) Range: 5-15 CO2 25.0 [...] Comments: Please note revised GLUCOSE reference range gogicpayq94/02/2018. 2-Qxj-237439:22 CRP Comments: [facility] [address] [place], [address] C-REACTIVE PROT < 2.90 mg/L (Normal) Range: 0.0-3.0 Comments: C-Reactive Protein (CRP) provides useful information for thediagnosis, therapy and monitoring of inflammatory processesand associated diseases. For the evaluation of Relative Riskfor Cardiovascular Dise ase, a High Sensitivity CRP (HSCRP)should be ordered. 5-Izz-312992:22 Erythrocyte Sed Rate Comments: [facility] [address] [place], [address] SED RATE 3 mm/h (Normal) Range: 0-30 8-Qwq-453085:22 Hemoglobin A1c Comments: [facility] [address] [place], [address] HGB A1C 5.7 % (Normal) Range: 4.2-6.3 5-Tkw-288935:22 Lipid Profile Comments: [facility] Qseds[address]ib[address] [place], [address] VLDL 21 mg/dL (Normal) Range: 5-40 [...] 200-240 mg/dL Borderline >240 mg/dL High Risk 4-Xcl-478146:22 Vitamin D,25 Hydroxy Comments: [facility] [address] [place], [place], [address] Vitamin D 25-OH 36.0 ng/mL (Normal) Range: 29.95-100.01 Comments: Vitamin D 25(OH) Status Range Deficiency <20 ng/mL (50nmol/L) Insuffciency 20 - 30 ng/mL (50 - 75 nmol/L) Sufficiency 30 - 100 ng/mL (75 - 250 nmol/L) Toxicity >100 ng/mL (>250 nmol/L) 45-Csq-599066:37 CBC W/Diff, Automated Comments: [facility] [address] [place], [place], [address] ; appt 5/2 Absolute Lymph 2.05 {X10_3/ul} [...] 4.2-5.4 WBC 5.5 K/mm3 (Normal) Range: 4.4-11.0 91-Wzq-745390:37 Comprehensive Metabolic Profil Comments: [facility] [address] [place], [place], [address] GAP 8 (Normal) Range: 5-15 CO2 24.0 [...] Comments: Please note revised GLUCOSE reference range gluhyepbi31/02/2018. 64-Cia-070916:37 Hemoglobin A1c Comments: [facility] Wujxvefqde3864 [facility] [place], [address] HGB A1C 5.9 % (Normal) Range: 4.2-6.3 13-Dux-859620:37 Lipid Profile Comments: [facility] Zcfpyqddii5440 [facility] [place], [address] VLDL 16 mg/dL (Normal) Range: 5-40 LDL [...] 200-240 mg/dL Borderline >240 mg/dL High Risk 64-Jzr-521672:06 METABOLIC PANEL, COMPREHENSIVE Comments: PATIENT NOT FASTINGPERFORMED BY: [facility] Hrjjnw2473 [facility] [id number] (12720) ALT (SGPT) 19 [iU]/L (Normal) Range: 0-32 [...] Glucose, Serum 84 mg/dL (Normal) Range: 65-99 31-Rld-460334:26 CBC W/Diff, Automated Comments: [facility] [address] [place], [place], [address] ; patient coming in today Absolute Lymph [...] 4.2-5.4 WBC 10.1 K/mm3 (Normal) Range: 4.4-11.0 51-Nwj-958308:26 EBV Acute Prof IgG / IgM Comments: [facility] (refer to report for specific site)refer to report for address and phone number INTERPRETATION Comment (Normal) Comments: EBV Interpretation ChartInterpretation EBV-IgM EA(D)-IgG VCA-IgG EBNA-IgGEBV Seronegative - - - -Early Phase + - - -Acute Primary + +or- + -InfectionConvalescence/Past - +or- + +InfectionReactivated +or- + + +Infection + Antibody Present - Antibody Ab sentPerformed at: - [facility] [address] [id number] Director: Sean Daniel PhD, Phone: [phone] EB-NAg [id number] > 600.0 U/mL (Abnormal) Range: 0.0-17.9 Comments: Negative <18.0 Equivocal 18.0 - 21.9 Positive >21.9 EB-VCA WtD81470 226.0 U/mL (Abnormal) Range: 0.0-17.9 Comments: Negative <18.0 Equivocal 18.0 - 21.9 Positive >21.9 EB-EA IgG 22957 49.1 U/mL (Abnormal) Range: 0.0-8.9 Comments: Hepatitis A, Hepatitis C and HIV antibodies may cross-reactwith this assay. Negative < 9.0 Equivocal 9.0 - 10.9 Positive >10.9 EB-VCA PbY62962 < 36.0 U/mL (Normal) Range: 0.0-35.9 Comments: Negative <36.0 Equivocal 36.0 - 43.9 Positive >43.9 01-Aal-524110:37 Basic Metabolic Profile (BMP) Comments: [facility] [address] [place], [place], [address] GAP 8 (Normal) Range: 5-15 CO2 23.0 [...] A.D.A. criteria.Please note revised GLUCOSE reference range yllcvobap54/02/2018. 52-Mpp-762703:37 CBC W/Diff, Automated Comments: [facility] [address] [place], [place], [address] Absolute Lymph 2.00 {X10_3/ul} (Normal) Range: 0.83-4.51 [...] 4.2-5.4 WBC 8.8 K/mm3 (Normal) Range: 4.4-11.0 10-Lod-386528:30 CBC With Differential/Platelet Comments: PERFORMED BY: [facility]6370 [facility] [id number] Information: [facility] PATIENT - NURSE Immature Grans (Abs) 0.0 [...] 3.77-5.28 WBC 6.8 {x10E3/uL} (Normal) Range: 3.4-10.8 11-Ojv-376304:30 Comp. Metabolic Panel (14) Comments: PERFORMED BY: [facility]9785 [facility] [id number]; can review at upcoming appt ALT (SGPT) [...] 98 mg/dL (Normal) Range: 65-99 :21 TSH (80655) Comments: PATIENT NOT FASTINGPERFORMED BY: [facility]6370 [facility] [id number] TSH 2.830 {uIU/mL} (Normal) Range: 0.450-4.500 :21 T3, FREE (TRIDOTHYRONINE) (37801) Comments: PATIENT NOT FASTINGPERFORMED BY: [facility] [place] [address] [id number] Triiodothyronine,Free,Serum 2.6 pg/mL (Normal) Range: 2.0-4.4 :21 T4, FREE (THYROXINE) (27679) Comments: PATIENT NOT FASTINGPERFORMED BY: [address] [id number] T4,Free(Direct) 1.12 ng/dL (Normal) Range: 0.82-1.77 :32 CBC W/Diff, Automated Comments: [facility] [address] [place], [place], [address] Absolute Lymph 3.84 {X10_3/ul} (Normal) Range: 0.83-4.51 [...] 4.2-5.4 WBC 7.6 K/mm3 (Normal) Range: 4.4-11.0 48-Htq-89660:32 Comprehensive Metabolic Profil Comments: [facility] [address] [place], [place], [address] ; non-emergent till next weeks apt GAP [...] (Normal) Range: 70-110 :32 Hemoglobin A1c Comments: [facility] [address] [place], [place], [address] HGB A1C 6.2 % (Normal) Range: 4.2-6.3 :32 Lipid Profile Comments: [facility] [address] [place], [place], [address] VLDL 19 mg/dL (Normal) Range: 5-40 LDL [...] High Risk :36 CBC W/Diff, Automated Comments: [facility] [address] [place], [address] Absolute Lymph 2.01 {X10_3/ul} (Normal) [...] 4.2-5.4 WBC 8.0 K/mm3 (Normal) Range: 4.4-11.0 75-Oqo-08558:36 Comprehensive Metabolic Profil Comments: [facility] [address] [place], [address] GAP 10 (Normal) Range: 5-15 CO2 25.0 [...] mg/dL (Normal) Range: 70-110 :36 CRP Comments: [address] [place], [address] C-REACTIVE PROT < 2.90 mg/L (Normal) Range: 0.0-3.0 Comments: C-Reactive Protein (CRP) provides useful information for thediagnosis, therapy and monitoring of inflammatory processesand associated diseases. For the evaluation of Relative Riskfor Cardiovascular Dise ase, a High Sensitivity CRP (HSCRP)should be ordered. :36 Culture, Urine Comments: [address] [place], [place], [address] CUUR See Note (Normal) Comments: Urine CultureCOLONY COUNT 400 CFU/ML Below infection level. ORGANISM 1: GNR Poss Pseudomonas spColony Count <1000 :36 Erythrocyte Sed Rate Comments: [address] [place], [place], [address] SED RATE 5 mm/h (Normal) Range: 0-30 :36 Free T3 Comments: [address] [place], [place], [address] FREE T3 2.4 pg/mL (Normal) Range: 2.18-3.98 :36 Rheumatoid Factor Comments: [facility] [id number]. [place], [place], [id number] RHEUMATOID FAC < 10.0 {IU/mL} (Normal) :36 T4 Free Direct Comments: [facility] [id number] [facility] [place], [place], [address] T4 FREE DIRECT 1.09 ng/dL (Normal) Range: 0.76-1.46 :36 Thyroid Stim Hormone (TSH) Comments: [facility] [id number] [place], [place], [address] TSH 0.08 {uIU/mL} (Abnormal) Range: 0.358-3.74 :36 Uric Acid Comments: [facility] Wnklnxvlok4499 [facility] [place], [place], [address] URIC 3.6 mg/dL (Normal) Range: 2.6-6.0 Comments: The drugs N-Acetylcysteine and Metamizole may falsely deressthis assay. 46-Epd-14389:30 URINE ARELY CULTURE-SPRING COL Comments: PERFORMED BY: [place] 4285070 [facility] [id number] Information: SRC:UR COUNT (94293) Result 1 MUG (Normal) Comments: Mixed urogenital flora1,000 Colonies/mL Urine Culture,Comprehensive Final report (Normal) 92-Hll-667418:20 Urinalysis, Office (75059) UA - LEUKOCYTE ESTERASE Negative (Normal) UA - NITRITE Negative (Normal) URINE UROBILINGN SPRING TIMED Normal mg/dL (Normal) UA - PROTEIN Negative mg/dL (Normal) UA - PH 7 (Normal) UA - BLOOD Negative (Normal) UA - SPECIFIC GRAVITY 1.015 (Normal) UA - KETONES Negative mg/dL (Normal) UA - BILIRUBIN Negative (Normal) UA - GLUCOSE Negative (Normal) 4-Hlg-725047:52 ARELY CULTURE-OTHER (60984) Comments: PATIENT NOT FASTINGPERFORMED BY: [facility] Ndiciz1766 [facility] [id number] Information: THROAT SRC:TH Result 1 RRF (Normal) Comments: Routine respiratory kaylene Upper Respiratory Culture Final report (Normal) 5-Lcg-028145:07 Rapid Strep Test, Office (76640) Rapid Strep Test, Negative (Normal) Office 76-Zrj-329091:2 Magnesium, Serum 2.0 mg/dL (Normal) Comments: PATIENT NOT FASTINGPERFORMED BY: [facility] Tqlfhz2838 [facility] [id number] Information: SRC:UC 1 Range: 1.6-2.3 06-Kyc-066403:21 Microscopic Examination Comments: PATIENT NOT FASTINGPERFORMED BY: [facility] Famrva5758 [facility] [id number] BY: [address] [id number] Bacteria None seen (Normal) Epithelial Cells (non None seen {/hpf} Range: 0 - 10 renal) (Normal) RBC 0-2 {/hpf} Range: 0 - 2 (Normal) WBC 0-5 {/hpf} Range: 0 - 5 (Normal) Sodium, Urine <20 mmol/L Comments: PATIENT NOT FASTINGPERFORMED BY: [facility] Smhndf0495 [facility] [id number] BY: [address] [id number] 4:21 (Normal) Written Authorization WAR (Normal) Comments: PATIENT NOT FASTINGPERFORMED BY: [facility] Csmxqf0468 [facility] [id number] 4:21 Comments: Written Authorization Received.Authorization received from YURIY VERNON LPN [id number] by Tg Stewart 38-Avl-593265:21 URINE ARELY CULTURE-IDENTIFICATN Comments: PATIENT NOT FASTINGPERFORMED BY: [facility] Itqwab7602 [facility] [id number] BY: BN Lab[address] [id number] (80295) Result 1 NG36 (Normal) Comments: No growth in 36 - 48 hours. Urine Culture,Comprehensive Final report (Normal) 65-Sxj-550450:21 URINALYSIS, W/ MICRO Comments: PATIENT NOT FASTINGPERFORMED BY: [employer] [id number] BY: [address] [id number] Information: SRC: (55544) Microscopic Examination See below: (Normal) Comments: Microscopic was indicated and was performed. Microscopic Examination MICRON (Normal) Comments: Microscopic follows if indicated. Nitrite, Urine Negative (Normal) Urobilinogen,Semi-Qn 0.2 mg/dL (Normal) Range: 0.2-1.0 Bilirubin Negative (Normal) Occult Blood Negative (Normal) Ketones Negative (Normal) Glucose Negative (Normal) Protein Negative (Normal) WBC Esterase Negative (Normal) Appearance Clear (Normal) Urine-Color Yellow (Normal) pH 7.0 (Normal) Range: 5.0-7.5 Specific [place] 1.007 (Normal) Range: 1.005-1.030 11-Jwc-505791:21 OSMOLALITY URINE (76699) Comments: PATIENT NOT FASTINGPERFORMED BY: [employer] [id number] BY: Bill.Forward[address] [id number] Osmolality, Urine 98 {mOsmol/kg} (Normal) Comments: 24 hr : 300 - 900 Random: 50 - 1400 After 12hr fluid restriction: >850 05-Hah-485036:21 OSMOLALITY BLOOD (24381) Comments: PATIENT NOT FASTINGPERFORMED BY: Bill.Forward[address] [id number] BY: [address] [id number] Osmolality 265 {mOsmol/kg} (Abnormal) Range: 275-295 14-Nlr-422684:21 SODIUM SERUM (85703) Comments: PATIENT NOT FASTINGPERFORMED BY: Lab05 Jones StreetDukody [place] [id number] BY: [facility] Yiocoymfpb9517 [facility] [id number] Sodium, Serum 132 mmol/L (Abnormal) Range: 134-144 52-Urm-449193:15 Comprehensive Metabolic Profil Comments: [facility] [address] [place], [place], [address] GAP 9 (Normal) Range: 5-15 CO2 25.0 [...] 7-18 GLU 86 mg/dL (Normal) Range: 70-110 85-Qjm-575550:15 Free T3 Comments: [facility] [address] [place], [address] FREE T3 2.3 pg/mL (Normal) Range: 2.18-3.98 75-Egp-557865:15 Phosphorus Comments: [facility] Acaccqjovo[address] [place], [address] PHOS 2.9 mg/dL (Normal) Range: 2.5-4.9 14-Tor-092372:15 PTH,INTACT Comments: [facility] Vawnagwklu[address] [place], [address] PTH,Intact 35 pg/mL (Normal) Range: 14-72 66-Ijw-496514:15 T4 Free Direct Comments: [facility] Xgdnsssgpe7[address]. [place], [address] T4 FREE DIRECT 1.06 ng/dL (Normal) Range: 0.76-1.46 72-Eht-647576:15 Thyroid Stim Hormone (TSH) Comments: [facility] Juxxeuoeuu5[address] [place], [address] TSH 5.47 {uIU/mL} (Abnormal) Range: 0.358-3.74 20-Nun-510398:15 Vitamin D,25 Hydroxy Comments: [facility] Avuqqxcdkb[address] [place], [address] Vitamin D 25-OH 38.0 ng/mL (Normal) Comments: Vitamin D 25(OH) Status Range Deficiency <20 ng/mL (50nmol/L) Insuffciency 20 - 30 ng/mL (50 - 75 nmol/L) Sufficiency 30 - 100 ng/mL (75 - 250 nmol/L) Toxicity >100 ng/mL (>250 nmol/L) 0-Xzg-164163:31 Comprehensive Metabolic Profil Comments: [facility] Lkn[address]ukiqho69[address] [place], [address] GAP 11 (Normal) Range: 5-15 CO2 24.0 [...] 7-18 GLU 96 mg/dL (Normal) Range: 70-110 9-Vkp-855855:31 Free T3 Comments: [facility] [address] [place], [place], [address] FREE T3 2.3 pg/mL (Normal) Range: 2.18-3.98 9-Ark-173333:31 Hemoglobin A1c Comments: [address] [place], [place], [address] HGB A1C 5.7 % (Normal) Range: 4.2-6.3 3-Xpl-660630:31 Lipid Profile Comments: [address] [place], [place], [address] VLDL 19 mg/dL (Normal) Range: 5-40 LDL [...] 200-240 mg/dL Borderline >240 mg/dL High Risk 6-Feb-091875:31 Microalb:Creat Ratio,Random UR Comments: [facility] [address] [place], [place], [address] MALB:CREAT 5.4 {mg/g_CRE} (Normal) MICROALBUMIN,UR 6.7 mg/L (Normal) UR CREAT 124.00 mg/dL (Normal) :31 T4 Free Direct Comments: [facility] [address] [place], [place], [address] T4 FREE DIRECT 0.70 ng/dL (Abnormal) Range: 0.76-1.46 :31 Thyroid Stim Hormone (TSH) Comments: [facility] Wnonrsmxyn[address] [place], [place], [address] TSH 4.87 {uIU/mL} (Abnormal) Range: 0.358-3.74 :49 [facility] Cloth Laminating Supervisor AB, Blocking Comments: [facility] (refer to report for specific site)refer to report for address and phone number [facility] REC 75902 19 % (Normal) Range: 0-25 Comments: Negative: 0 - 25 Borderline: 26 - 30 Positive: >30Results for this test are for research purposesonly by the assay's alberta rodriguez. The performancecharacteristics of this product have not beenestablished. Results should not be used as adiagnostic procedure without confirmation of thediagnosis by another medically establishe ddiagnostic product or procedure.Performed at: [address] [id number] Director: Eusebio Live MD, Phone: [phone] 6-Clx-754474:49 Lyme Antibodies,W Blot Comments: [facility] (refer to [...] positivity are those recommended byCDC/ASTPHLD. p23=Osp C, f81=yhritzlsmIoel:Sera from individuals with the following may cross [...] Ab Absent (Normal) P93 Ab Absent (Normal) 75-Tbh-94851:39 Acid Fast Bact Cult/Sm Comments: [facility] [address] [place], [place], [address] AFBCS See Note Comments: AFB Smear/Fluor TESTING PERFORMED AT [facility]. ORIGINAL REPORT ON FILE IN LAB CONTAINS ADDITIONAL TEST SITE INFORMATION. (Normal) Smear, Acid Fast NO ACID-FAST BACILLI OBSERVED ON SMEAR. AFB Cult TESTING [facility]FOR[facility]. ORIGIN AL REPORT ON FILE IN LAB CONTAINS ADDITIONAL TEST SITE INFORMATION. Culture, Acid Fast NO ACID-FAST BACILLI ISOLATED AFTER 6 WEEKS. :39 Body Fluid Cell Count+Diff Comments: Specimen Source: [facility] [address] [place] [address], [address] PATH COMM/BF May follow (Normal) BF [...] Body Fluid / CSF Comments: Specimen Source: [facility] U[address]ib4630 [place], [address] CYTOLOGY,BF/CSF SEE PATHOLOGY REPORT Comments: Specimen submitted to Anatomical Pathology Department [facility]. (Normal) :39 CYTOSPIN ON FLUID See Note (Normal) Comments: [facility] [address] DanielbrynIfeanyi [place], [place], [address] Comments: Patient: TITA LAW : 1960 (55/F) Acct Num: [id number] Phys: Momo BRADY, Pepper Unit Num: [id number] Loc: RAD Specimen: [id number] Received: 03/15/16 - 1239 Spec Type: CYSPIN FL TISSUES TISSUES: CYTOLOGY GROSS Received is 3 ml of clear, colorless fluid labeled with the patient's name and and designated per the requisition as CSF. Submitted f or cytology preparation. 03/15/16 TC:4 CPT: 25379 CYTOLOGY STUDY Slides are reviewed. DIAGNOSIS CYTOLOGY Cerebrospinal fluid (cytospins): The specimen is acellular. SJ:tiffanie 7 HEADER OPERATION: Lumbar puncture PRE-OP DIAGNOSIS: Rule out MS TISSUE SUBMITTED: Cerebrospinal fluid Signed Christian Holt 03/16/16 <signature on file> :39 Glucose Spinal Fluid Comments: Comments: PROTEIN ELCTRO-CSF LC#[id number] Source? [facility] [address]ubdy[address] [place], [place], [address] GLU SPINAL FLD 57 mg/dL (Normal) Range: 40-75 90-Sxb-14699:39 Miscellaneous Lab Procedure Comments: Comments: PROTEIN ELCTRO- CSF LC#[id number](s) Ordered: PROTEIN ELCTRO-CSF LC#[id number] [address]wrfsvzo[address] [place], [address] MISC Comments: TEST RESULT UNITS REFERENCE INTERVALProtein Electrophoresis, CSFProtein, Total, CSF 36.7 mg/dL 0.0 - 44.0Pre- Albumin (CSF) 2.6 % 2.2 - 7.1Albumin LAB (Normal) (CSF) 68.5 % 56.8 - 76.1Lgwjs-2-Wtbkeiut CSF 3.9 % 1.1 - 6.1Jztqe-8-Qljkkzxq CSF 4.6 % 3.0 - 12.6Beta Globulin (CSF) 15.0 % 7 TEST .3 - 17.9Gamma Globulin (CSF) 5.5 % 3.0 - 13.0Protein electrophoresis scan will follow via computer, mail,or grounds cleaner delivery.M-Logan Not Observed % Not Observed__ TESTING PERFORMED AT [facility]. ORIGINAL REPORT ON FILE IN LAB CONTAINS ADDITIONAL TEST SITE INFORMATION. :39 Myelin Basic Protein, MBP Comments: [facility] (refer to report for specific site)refer to report for address and phone number MBP [id number] 1.8 ng/mL (Abnormal) Range: 0.0-1.2 Comments: Results for this test are for research purposes only by theassay's night warehouse manager. The performance characteristics ofthis product have not been established. Results should notbe used as a diagnostic pro cedure without confirmation ofthe diagnosis by another medically established diagnosticproduct or procedure. :39 Protein Spinal Fluid Comments: Comments: PROTEIN ELCTRO-CSF #[id number] Source? [facility] Pbdleempkr4947 [facility] [place], [place], [address] PROTEIN CSF 38.0 mg/dL (Normal) Range: 15.0-45.0 [...] using IsoelectricFocusing (IEF) and immunoblotting methodology.Performed at: [address] [id number] Director: Sean Daniel PhD, Phone: [phone] OLIG BAND REF LAB (Normal) :04 Protein Electroph, S Comments: [facility] (refer to report for specific site)refer to report for address and phone number NOTE: Comment (Normal) Comments: The SPE pattern appears essentially unremarkable. Evidenceof monoclonal protein is not apparent. INTERPRETATION Comment (Normal) Comments: Protein electrophoresis scan will follow via computer,mail, or grounds cleaner delivery. A/G RATIO 1.4 (Normal) Range: 0.7-1.7 GLOBULIN, TOTAL 2.8 g/dL (Normal) Range: 2.2-3.9 M-SPIKE g/dL (Normal) Comments: Not Observed GAMMA GLOBULIN 0.9 g/dL (Normal) Range: 0.4-1.8 BETA GLOBULIN 0.9 g/dL (Normal) Range: 0.7-1.3 ALPHA-2 GLOBUL 0.7 g/dL (Normal) Range: 0.4-1.0 ALPHA-1 GLOBUL 0.2 g/dL (Normal) Range: 0.0-0.4 ALBUMIN 3.9 g/dL (Normal) Range: 2.9-4.4 PROTEIN,TOTAL 6.7 g/dL (Normal) Range: 6.0-8.5 0-Dtg-195408:15 CBC W/Diff, Automated Comments: DR VILLAFANA ORDERED CBCD/CMPDR FAST ORDERED BMP/FT3/FT4/TSHDR TRES ORDERED CBCD/CMPDR FAST ORDERED BMP/FT3/FT4/[facility] Ajfypwosdo7361 [facility] [place], [place], [address] Absolute Lymph 1.41 {X10_3/ul} (Normal) Range: 0.83-4.51 [...] 4.2-5.4 WBC 8.2 K/mm3 (Normal) Range: 4.4-11.0 3-Bfp-342846:15 Comprehensive Metabolic Profil Comments: DR VILLAFANA ORDERED CBCD/CMPDR FAST ORDERED BMP/FT3/FT4/[facility] Rxqztgryso8820 [place], [place], [address] GAP 9 (Normal) Range: 5-15 CO2 26.0 [...] 7-18 GLU 92 mg/dL (Normal) Range: 70-110 9-Hls-953156:15 Free T3 Comments: DR VILLAFANA ORDERED CBCD/CMPDR FAST ORDERED BMP/FT3/FT4/[facility] Ivsdqlcjkd[address] [place], [place], [address] FREE T3 2.2 pg/mL (Normal) Range: 2.18-3.98 9-Swt-092672:15 T4 Free Direct Comments: DR VILLAFANA ORDERED CBCD/CMPDR FAST ORDERED BMP/FT3/FT4/[facility] Haxqcurjoy5[address]Ife[address] [place], [place], [address] T4 FREE DIRECT 0.96 ng/dL (Normal) Range: 0.76-1.46 6-Cmz-966755:15 Thyroid Stim Hormone (TSH) Comments: DR VILLAFANA ORDERED CBCD/CMPDR FAST ORDERED BMP/FT3/FT4/[facility] Wcduelsfbf[address] [place], [place], [address] TSH 0.13 {uIU/mL} (Abnormal) Range: 0.358-3.74 24-Ujx-270326:21 Metabolic Panel, Basic Comments: PATIENT NOT FASTINGPERFORMED BY: [facility]CoRutgers - University Behavioral HealthCareZiumnu4291 [facility] [id number] (37925) Calcium, Serum 9.5 mg/dL (Normal) Range: 8.7-10.2 [...] 85 mg/dL (Normal) Range: 65-99 :21 TSH (09713) Comments: PATIENT NOT FASTINGPERFORMED BY: [facility]6370 [facility] [id number] TSH 0.031 {uIU/mL} (Abnormal) Range: 0.450-4.500 :21 T3, FREE (TRIDOTHYRONINE) (92600) Comments: PATIENT NOT FASTINGPERFORMED BY: [facility]6370 [facility] [id number] Triiodothyronine,Free,Serum 3.3 pg/mL (Normal) Range: 2.0-4.4 :21 T4, FREE (THYROXINE) (89324) Comments: PATIENT NOT FASTINGPERFORMED BY: [facility]6370 [facility] [id number] T4,Free(Direct) 1.52 ng/dL (Normal) Range: 0.82-1.77 :56 CBC W/Diff, Automated Comments: [facility] [address] [place], [address] Absolute Lymph 1.43 {X10_3/ul} (Normal) Range: 0.83-4.51 [...] Range: 4.4-11.0 :56 Comprehensive Metabolic Profil Comments: [facility] [address] [place], [place], [address] GAP 9 (Normal) Range: 5-15 CO2 26.0 [...] (Normal) Range: 70-110 :56 Hemoglobin A1c Comments: [facility] Khsvmyqwyv0464 [facility] [place], [place], [address] HGB A1C 5.4 % (Normal) Range: 4.2-6.3 :56 Microalb:Creat Ratio,Random UR Comments: [facility] [address] [place], [address] MALB:CREAT Test not performed {mg/g_CRE} (Normal) MICROALBUMIN,UR < 5.0 mg/L (Normal) UR CREAT 18.20 mg/dL (Normal) :56 NMR Lipoprofile Comments: [facility] (refer to report for specific [...] the US Food and Drug Administration.Performed at: [facility] [address] [place] [id number] Director: Eusebio Live MD, Phone: [phone] INS RES/DIAB RK . (Normal) LDL SIZE [...] mg/dL (Abnormal) Range: 100-199 LIPIDS . (Normal) 46-Gwq-920552:26 Microscopic Examination Comments: PATIENT NOT FASTINGPERFORMED BY: LabCoRutgers - University Behavioral HealthCarePrcohm1156 [facility] [id number] Bacteria Few (Normal) Epithelial Cells (non renal) 0-10 {/hpf} (Normal) Range: 0 - 10 RBC 0-2 {/hpf} (Normal) Range: 0 - 2 WBC 0-5 {/hpf} (Normal) Range: 0 - 5 :26 METABOLIC PANEL, COMPREHENSIVE Comments: PATIENT NOT FASTINGPERFORMED BY: InteRNA TechnologiesSanta Ana Health CenterVojnhh7692 [facility] [id number] (15784) ALT (SGPT) 23 [iU]/L (Normal) Range: 0-32 [...] Glucose, Serum 84 mg/dL (Normal) Range: 65-99 43-Xxr-705286:26 URINE ARELY CULTURE-IDENTIFICATN Comments: PATIENT NOT FASTINGPERFORMED BY: Bill.ForwardMarlette [facility] Hospital6370 [facility] [id number] (10370) Result 1 NG36 (Normal) Comments: No growth in 36 - 48 hours. Urine Culture,Comprehensive Final report (Normal) 28-Jal-323354:26 CBC W/AUTO DIFF WBC Comments: PATIENT NOT FASTINGPERFORMED BY: [facility]6370 [facility] [id number] Information: SRC: (13510) Immature Grans (Abs) 0.0 {x10E3/uL} (Normal) Range: [...] (Normal) Range: 3.4-10.8 :26 URINALYSIS, W/ MICRO (52860) Comments: PATIENT NOT FASTINGPERFORMED BY: [facility]6370 [facility] [id number] Microscopic Examination See below: (Normal) Comments: Microscopic was indicated and was performed. Microscopic Examination MICRON (Normal) Comments: Microscopic follows if indicated. Nitrite, Urine Negative (Normal) Urobilinogen,Semi-Qn 0.2 mg/dL (Normal) Range: 0.2-1.0 Bilirubin Negative (Normal) Occult Blood Negative (Normal) Ketones Negative (Normal) Glucose Negative (Normal) Protein Negative (Normal) WBC Esterase Negative (Normal) Appearance Clear (Normal) Urine-Color Yellow (Normal) pH 7.5 (Normal) Range: 5.0-7.5 Specific [place] 1.005 (Normal) Range: 1.005-1.030 :53 Partial Thromboplast Time Comments: [facility] [address] [place], [address] PTT 34.1 s (Normal) Range: 24.1-36.2 :53 Prothrombin Time w/INR Comments: [facility] [address] [place], [place], [address] INR 1.1 (Normal) PROTIME 14.1 s (Normal) Range: 11.7-14.9 :43 CBC W/Diff, Automated Comments: [facility] [address] [place], [place], [address] Absolute Lymph 1.00 {X10_3/ul} (Normal) Range: 0.83-4.51 [...] 4.2-5.4 WBC 16.5 K/mm3 (Abnormal) Range: 4.4-11.0 36-Ogg-233303:43 Comprehensive Metabolic Profil Comments: [facility] [address] [place], [place], [address] GAP 11 (Normal) Range: 5-15 CO2 24.0 [...] 7-18 GLU 82 mg/dL (Normal) Range: 70-110 49-Bca-944379:43 Lactic Acid Comments: [facility] [address]kt[address] [place], [address] LACTIC ACID 1.5 mmol/L (Normal) Range: 0.4-2.0 7-Krm-500292:06 Metabolic Panel, Basic (01355) Comments: PATIENT NOT FASTINGPERFORMED BY: [facility]ivasRutherford [facility] System [id number] Calcium, Serum 9.9 mg/dL (Normal) Range: 8.7-10.2 [...] Glucose, Serum 82 mg/dL (Normal) Range: 65-99 0-Waw-877388:06 PHOSPHORUS (19744) Comments: PATIENT NOT FASTINGPERFORMED BY: [employer]kaSystems6370 AlvaradoBizAnytimeFormerly [facility] [id number] Phosphorus, Serum 3.8 mg/dL (Normal) Range: 2.5-4.5 7-Lyj-415541:06 PARATHORMONE (88947) Comments: PATIENT NOT FASTINGPERFORMED BY: [employer]'s AlvaradoDeep DriverRutherford Regional Health System [id number] PTH, Intact 30 pg/mL (Normal) Range: 15-65 4-Qcy-536707:06 SPEP (98500) Comments: PATIENT NOT FASTINGPERFORMED BY: Archivasblin [place] [id number] Information: [id number] Please note: SPRCS (Normal) Comments: Protein electrophoresis scan will follow via computer, mail, orcourier delivery. A/G Ratio 1.4 (Normal) Range: 0.7-1.7 Globulin, Total 3.1 g/dL (Normal) Range: 2.2-3.9 M-Logan Not Observed g/dL (Normal) Gamma Globulin 1.1 g/dL (Normal) Range: 0.4-1.8 Beta Globulin 1.0 g/dL (Normal) Range: 0.7-1.3 Sngse-7-Amlabjyv 0.8 g/dL (Normal) Range: 0.4-1.0 Iabsr-8-Sytsqixq 0.3 g/dL (Normal) Range: 0.0-0.4 Albumin 4.4 g/dL (Normal) Range: 2.9-4.4 Protein, Total, Serum 7.5 g/dL (Normal) Range: 6.0-8.5 :06 UPEP (65244) Comments: PATIENT NOT FASTINGPERFORMED BY: GoCrossCampuslin6370 [facility] [id number] Please note: SPRCS (Normal) Comments: Protein electrophoresis scan will follow via computer, mail, orcourier delivery. M-Logan, % Not Observed % (Normal) Gamma Globulin, U 43.5 % (Normal) Beta Globulin, U 33.9 % (Normal) Bnfuq-3-Fiaqyztw, U 9.6 % (Normal) Jukot-6-Ratdlgqk, U 0.8 % (Normal) Albumin, U 12.1 % (Normal) Protein,Total,Urine <4.0 mg/dL (Normal) Comments: Verified by repeat analysis :23 URINE CALCIUM SPRING TIMED Comments: PATIENT NOT FASTINGPERFORMED BY: InteRNA TechnologiesRutgers - University Behavioral HealthCareTdxgzo0765 [facility] [id number] Information: [id number] 24 Hour (83862) Calcium, Urine 24hr 133.5 {mg/24_hr} (Normal) Range: 100.0-300.0 Calcium, Urine 3.0 mg/dL (Normal) :08 METABOLIC PANEL, Comments: PATIENT NOT FASTINGPERFORMED BY: JUAN LUIS LabCoRutgers - University Behavioral HealthCareXmsqay7870 [facility] [id number] Information: [id number] COMPREHENSIVE (66170) ALT (SGPT) 15 [iU]/L (Normal) Range: 0-32 [...] mg/dL (Normal) Range: 65-99 :34 Urinalysis, Office (17930) UA - LEUKOCYTE ESTERASE Negative (Normal) UA [...] (SPRING Comments: PATIENT NOT FASTINGPERFORMED BY: [facility] Wrucwm4401 Alvarado Man [facility] Hospitalkody [place] [id number] Information: SRC:[facility] [id number] COL COUNT) (94554) Result 1 NG36 (Normal) Comments: No growth in 36 - 48 hours. Urine Culture,Comprehensive Final report (Normal) 57-Ekl-992465:00 CBC W/Diff, Automated Comments: [facility] [address] [place], [address] Absolute Lymph 1.49 {X10_3/ul} (Normal) Range: 0.83-4.51 [...] 4.2-5.4 WBC 6.2 K/mm3 (Normal) Range: 4.4-11.0 21-Zov-517777:00 Comprehensive Metabolic Profil Comments: [facility] [address]lsocl[address] [place], [address] GAP 5 (Normal) Range: 5-15 CO2 28.0 [...] 7-18 GLU 93 mg/dL (Normal) Range: 70-110 70-Qug-274439:00 Free T3 Comments: [facility] [address] [place], [address] FREE T3 2.9 pg/mL (Normal) Range: 2.18-3.98 52-Egq-245227:00 T4 Free Direct Comments: [facility] X[address]vaxdorl[address] [place], [place], [address] T4 FREE DIRECT 1.07 ng/dL (Normal) Range: 0.76-1.46 76-Hna-053542:00 Thyroid Stim Hormone (TSH) Comments: [facility] Rcgxqnybcb0779ISA [place], [id number] TSH 0.16 {uIU/mL} (Abnormal) Range: 0.358-3.74 0-Bkg-636526:38 HGB A1C (65963) Comments: PATIENT NOT FASTINGPERFORMED BY: [place] 4285070 [facility] [id number] Information: [id number] Hemoglobin A1c 5.7 % (Abnormal) Range: 4.8-5.6 Comments: . Pre-diabetes: 5.7 - 6.4 Diabetes: >6.4 Glycemic control for adults with diabetes: <7.0 David Arce BMP8 SPRCS (Normal) Comments: A courtesy copy of this report has been sent [facility].PATIENT WAS FASTINGPERFORMED BY: [facility]6370 [facility] [id number] :51 Default Comments: A hand-written panel/profile was received from your office. Inaccordance with the [employer] Ambiguous Test Code Policy dated August2002, we have completed your order by using the closest currentlyor formerl y recognized AMA panel. We have assigned Basic MetabolicPanel (8), Test Code #893700 to this request. If this is not thetesting you wished to receive on this specimen, please [facility]/Technical Services Department to clarify thetest order. We appreciate your business. David Arce LP Default SPRCS (Normal) Comments: A courtesy copy of this report has been sent [facility].PATIENT WAS FASTINGPERFORMED BY: [place] [id number] [facility] [id number] :51 Comments: A hand-written panel/profile was received from your office. Inaccordance with the Bill.[facility] Ambiguous Test Code Policy dated August2002, we have completed your order by using the closest currentlyor formerl y recognized AMA panel. We have assigned Lipid Panel,Test Code #995525 to this request. If this is not the testing youwished to receive on this specimen, please contact the LabCorpClient Inquiry/Techni alberto Services Department to clarify the testorder. We appreciate your business. 73-Iqd-480094:51 CBC With Differential/Platelet Comments: A courtesy copy of this report has been sent [facility].PATIENT WAS FASTINGPERFORMED BY: LabCoRutgers - University Behavioral HealthCareAzlgem7027 [facility] [id number] Immature Grans (Abs) 0.0 {x10E3/uL} (Normal) Range: [...] 3.77-5.28 WBC 4.8 {x10E3/uL} (Normal) Range: 3.4-10.8 11-Qob-693699:51 Comp. Metabolic Panel (14) Comments: A courtesy copy of this report has been sent [facility].PATIENT WAS FASTINGPERFORMED BY: InteRNA TechnologiesRutgers - University Behavioral HealthCareYvvtsc4153 [facility] [id number] ALT (SGPT) 14 [iU]/L (Normal) Range: 0-32 [...] Glucose, Serum 101 mg/dL (Abnormal) Range: 65-99 37-Bgq-073738:51 Lipid Panel Comments: A courtesy copy of this report has been sent [facility].PATIENT WAS FASTINGPERFORMED BY: InteRNA TechnologiesRutgers - University Behavioral HealthCareEaeqky8505 [facility] [id number]; non-emergent till apt LDL Cholesterol Calc 120 [...] sent toT [facility].PATIENT WAS FASTINGPERFORMED BY: [facility]6370 [facility] [id number] 0:51 Range: 30.0-100.0 Comments: Vitamin D deficiency has been defined by the [place] of[place]icine and an Endocrine Society practice guideline as alevel of serum 25-OH vitamin D less than 20 ng/mL (1,2).The Endocrine Society went on to further define vitamin Dinsufficiency as a level between 21 and 29 ng/mL (2).1. IOM ([place] of Medicine). 2010. Dietary reference intakes for calcium and D. [place]: The National Academies Press.2. Mateusz MF, Mary HUNTER, Enma KENDALL, et al. Evaluation, treatment, and prevention of vitamin D deficiency: an Endocrine Society clinical practice guideline. JCEM. 2010; 96(7):1911-30. 31-Kyn-705956:28 Sputum Culture (22797) Comments: PATIENT NOT FASTINGPERFORMED BY: [facility]6370 [facility] [id number] Information: [id number] Result 1 STREPN (Abnormal) Comments: Streptococcus pneumoniaeHeavy [...] S Lower Respiratory Final report Culture (Abnormal) 38-Nmq-940952:49 Free T3 Comments: Has Patient had X-rays with Contrast this admission? NIs Patient on Heparin? [facility] Sjgvohqbqc9309 [facility] [place], [place], [id number] FREE T3 1.9 pg/mL (Abnormal) Range: 2.18-3.98 84-Vmr-544993:49 T4 Free Direct Comments: Has Patient had X-rays with Contrast this admission? NIs Patient on Heparin? [facility] [address] [place], [place], [id number] T4 FREE DIRECT 0.84 ng/dL (Normal) Range: 0.76-1.46 46-Yrw-142297:49 Thyroid Stim Hormone (TSH) Comments: Has Patient had X-rays with Contrast this admission? NIs Patient on Heparin? [facility] [address] [facility] [place], [address] TSH 0.04 {uIU/mL} (Abnormal) Range: 0.358-3.74 :43 CBC W/Diff, Automated Comments: Test performed at:[facility] Bbowjhwovx0116 [facility] [place] [address] Absolute Lymph 2.39 {X10_3/ul} (Normal) [...] 4.2-5.4 WBC 8.0 K/mm3 (Normal) Range: 4.4-11.0 44-Adx-187187:43 Comprehensive Metabolic Profil Comments: Test performed at:[facility] [address] [place] [address] GAP 7 (Normal) Range: 5-15 CO2 27.0 [...] 7-18 GLU 92 mg/dL (Normal) Range: 70-110 00-Gbe-61723:34 Comprehensive Metabolic Profil Comments: ORDERED LIPID,CMPDR.SNEHA ORDERED TSH,HARLEEN,DHEATest performed at:[facility] [address] [place], [place] [id number] GAP 11 (Normal) Range: 5-15 CO2 25.0 [...] Comments: Please note revised CREATININE reference range nimczhujy18/22/2015. BUN 6 mg/dL (Abnormal) Range: 7-18 GLU 97 mg/dL (Normal) Range: 70-110 33-Rxl-61183:34 DHEA Sulfate Comments: Has Patient had Radioactive Injection for X-ray?: NTest performed at:[facility] [address]nh[address]cvjfki6327 [place] [address] DHEA SULF 4020 26.8 ug/dL (Abnormal) Range: 41.2-243.7 Comments: Performed at: [facility] - [facility] [id number] Director: Sean Daniel PhD, Phone: [phone] 30-Xny-62014:34 Lipid Profile Comments: ORDERED LIPID,CMPDR.SNEHA ORDERED TSH,HARLEEN,DHEATest performed at:[facility] [address]zfylxbczk1537 [place] [address] VLDL 14 mg/dL (Normal) Range: [...] :34 Testosterone, Serum Total Comments: Test performed at:[facility] Jyjhqdipbg07[address] [facility] [place] [address] Testosterone 20 ng/dL (Normal) Range: 14-76 70-Bzd-10780:34 Thyroid Stim Hormone (TSH) Comments: ORDERED LIPID,CMPDR.SNEHA ORDERED TSH,HARLEEN,DHEATest performed at:[facility] Jacafdorrv14[address] [facility] [place] [address] TSH < 0.01 {uIU/mL} (Abnormal) Range: 0.358-3.74 42-Hom-180999:12 CBC W/Diff, Automated Comments: Test performed at:[facility] Xfzpwlphlc3975 [facility] [place] [address] Absolute Lymph 1.81 {X10_3/ul} (Normal) [...] 4.2-5.4 WBC 6.0 K/mm3 (Normal) Range: 4.4-11.0 01-Hqi-899931:12 Comprehensive Metabolic Profil Comments: Test performed at:[facility] Qntlnozahs3225 [place] [address] GAP 6 (Normal) Range: 5-15 [...] had Radioactive Injection for X-ray?: NTest performed at:[facility] Tskqwqgpre1390 [facility] [place] [address] DHEA SULF 4020 22.6 ug/dL (Abnormal) Range: 41.2-243.7 Comments: Performed at: - LabCoJonathan Ville [id number] [place], [place] [id number] Director: Omer Stout PhD, Phone: [phone] :[phone] Free T3 Comments: Has Patient had X-rays with Contrast this admission? ??NIs Patient on Heparin? ??NTest performed at:[facility] [address] ??[place], [place] ??[address] FREE T3 4.7 pg/mL (Abnormal) Range: 2.18-3.98 :36 T4 Free Direct Comments: Has Patient had X-rays with Contrast this admission? NIs Patient on Heparin? NTest performed at:[facility] Ng[address] [place] [address] T4 FREE DIRECT 1.54 ng/dL (Abnormal) Range: 0.76-1.46 :36 Thyroid Stim Hormone (TSH) Comments: Has Patient had X-rays with Contrast this admission? NIs Patient on Heparin? NTest performed at:[facility] [address] [place] [address] TSH < 0.01 {uIU/mL} (Abnormal) Range: 0.358-3.74 :36 Vitamin D,25 Hydroxy Comments: Test performed at:[facility] [address] [place] [address] Vitamin D 25-OH 34.0 ng/mL (Normal) Comments: Vitamin D 25(OH) Status Range Deficiency <20 ng/mL (50nmol/L) Insuffciency 20 - 30 ng/mL (50 - 75 nmol/L) Sufficiency 30 - 100 ng/mL (75 - 250 nmol/L) Toxicity >100 ng/mL (>250 nmol/L) :02 CBC W/Diff, Automated Comments: Test performed at:[facility] [address] [place] [address] ; non- emergent till apt [...] 4.2-5.4 WBC 6.0 K/mm3 (Normal) Range: 4.4-11.0 21-Rkj-49674:02 Comprehensive Metabolic Profil Comments: Test performed at:[facility] [address] [place], [place] [address] GAP 7 (Normal) Range: 5-15 CO2 28.0 [...] 7-18 GLU 93 mg/dL (Normal) Range: 70-110 33-Uwm-77763:02 Lipid Profile Comments: Test performed at:[facility] [address] [place] [address] VLDL 14 mg/dL (Normal) Range: 5-40 [...] 200-240 mg/dL Borderline >240 mg/dL High Risk 32-Yyy-954462:09 CBC W/Diff, Automated Comments: Test performed at:[facility] [address]kkmt2324 [place] [address] ; handled by kerri Absolute [...] 4.2-5.4 WBC 8.0 K/mm3 (Normal) Range: 4.4-11.0 38-Qxq-752165:09 Comprehensive Metabolic Profil Comments: Test performed at:[facility] [address] [place] [address] ; vellenki GAP 6 (Normal) Range: 5-15 CO2 28.0 [...] CHOL 168 mg/dL (Normal) Comments: <200 mg/dL Qctsewrbe806-774 mg/dL Borderline>240 mg/dL High Risk 95-Vvn-980174:51 CBCD ALC 2.36 {X10_3/ul} (Normal) Range: 0.83-4.51 [...] 4.2-5.4 WBC 8.0 K/mm3 (Normal) Range: 4.4-11.0 51-Wgd-385492:51 CMP Comments: DR VILLAFANA ORDERED CBCD CMP [...] 7-18 GLU 89 mg/dL (Normal) Range: 70-110 65-Rvm-615577:51 CORTU Comments: Has Patient had Radioactive Injection for X-ray?: N tCORTU 9 ug/L (Normal) kHQGWW43 39 {ug/24_hr} (Normal) Range: 0-50 17-Qhv-467350:51 DHEA 19.8 ug/dL (Abnormal) Comments: Has Patient had Radioactive Injection for X-ray?: N Range: 41.2-243.7 Comments: Performed at: [address] [id number] Director: Eusebio Live MD, Phone: [phone] at: [address], [place], [place] [address]Fgd Director: Omer Stout PhD, Phone: [phone] 16-Khc-898352:51 FT3 2.2 pg/mL (Normal) Comments: DR VILLAFANA ORDERED CBCD CMP ONLYHas Patient had X-rays with Contrast this admission? N Range: 2.18-3.98 09-Itg-510943:51 METAU Comments: Has Patient had Radioactive Injection for X-ray?: N tMETA 40 ug/L (Normal) tMETA24 172 {ug/24_hr} (Normal) Range: 45-290 Comments: (Hypertensive) >17 years 11 months: 35 - 460 tNORM24 292 {ug/24_hr} (Normal) Range: 82-500 Comments: (Hypertensive) >17 years 11 months: 110 - 1050 tNORM 68 ug/L (Normal) 76-Awm-769518:51 T4F 0.98 ng/dL (Normal) Comments: DR VILLAFANA ORDERED CBCD CMP ONLYHas Patient had X-rays with Contrast this admission? N Range: 0.76-1.46 72-Fxv-817144:51 TSH 0.66 {uIU/mL} (Normal) Comments: DR VILLAFANA ORDERED CBCD CMP ONLYHas Patient had X-rays with Contrast this admission? N Range: 0.358-3.74 87-Khb-196091:51 VITD 51.8 mg/mL (Normal) Comments: Vitamin D 25(OH) Status RangeDeficiency <20 ng/mL (50nmol/L)Insuffciency 20 - 30 ng/mL (50 - 75 nmol/L)Sufficiency 30 - 100 ng/mL (75 - 250 nmol/L)Toxicity >100 ng/mL (>250 nmol/L) 5-Pyh-219756:01 URINE ARELY CULTURE-SPRING COL Comments: PATIENT NOT FASTINGPERFORMED BY: [facility] [address] [id number] Information: SRC:UR [id number] COUNT ([id number]) Result 1 NG36 (Normal) Comments: No growth in 36 - 48 hours. Urine Culture,Comprehensive Final report (Normal) 0-Dbb-159899:44 Urinalysis, Office (09720) UA - LEUKOCYTE ESTERASE Negative (Normal) UA - NITRITE Negative (Normal) URINE UROBILINGN SPRING TIMED Normal mg/dL (Normal) UA - PROTEIN Negative mg/dL (Normal) UA - PH 8.5 (Normal) UA - BLOOD Negative (Normal) UA - SPECIFIC GRAVITY 1.015 (Normal) UA - KETONES Negative mg/dL (Normal) UA - BILIRUBIN Negative (Normal) UA - GLUCOSE Negative (Normal) :00 CMP Comments: LIPID CMPDR.WIETECHA CMP TSH T4F T3F VITD DHEA GAP [...] X-ray?: N Range: 41.2-243.7 Comments: Performed at: [address] [id number] Director: Sterling Porter MD, Phone: [phone] :[phone] FT3 2.4 pg/mL (Normal) Comments: LIPID RUBI [facility] TSH T4F T3F VITD DHEA Range: 2.18-3.98 27-Aug-20139:00 LIPID Comments: LIPID RUBI [facility] TSH T4F T3F VITD DHEA VLDL 13 [...] CHOL 235 mg/dL (Abnormal) Comments: <200 mg/dL Rojcnndhv429-374 mg/dL Borderline>240 mg/dL High Risk :00 T4F 0.98 ng/dL (Normal) Comments: LIPID RUBI [facility] TSH T4F T3F VITD DHEA Range: 0.76-1.46 :00 TSH 0.16 {uIU/mL} (Abnormal) Comments: LIPID RUBI [facility] TSH T4F T3F VITD DHEA Range: 0.358-3.74 :00 VITD 56.0 mg/mL (Normal) Comments: Vitamin D 25(OH) Status RangeDeficiency <20 ng/mL (50nmol/L)Insuffciency 20 - 30 ng/mL (50 - 75 nmol/L)Sufficiency 30 - 100 ng/mL (75 - 250 nmol/L)Toxicity >100 ng/mL (>250 nmol/L) :54 OS 273 {mOsm/KG} (Abnormal) Range: 275-295 :54 [facility] 268 {mOsm/KG} (Normal) Comments: OSMOLALITY URINE REFERENCE OTXVLRZSX47-kcby Urine 300 - 900 mOsm/kgRandom Urine 50 - 1400 mOsm/kgAfter 12 Hr fluid restriction >850 mOsm/kg 54-Oav-225434:31 24HULYT Comments: ST 07/25/13 1130AM CREATININE AND SODIUM ONLYST 1130AM uCL24 63 {mmol/24h} (Abnormal) Range: 110-250 CLU 14 mmol/L (Normal) KU 15.5 mmol/L (Normal) uK24 70.1 {mmol/24h} (Normal) Range: 25-125 uNA24 72 {mmol/24h} (Normal) Range: 40-220 EMELI 16 mmol/L (Normal) uLYTV 4525 mL (Normal) 42-Zal-182011:31 UCRE Comments: ST 07/25/13 1130AM CREATININE AND SODIUM ONLYST 1130AM UCCT 24.0 {HOURS} (Normal) UCRE24 1.2 {g/24_hr} (Normal) Range: 0.6-1.5 UCTV 4.53 L (Normal) URCREAT 26.8 mg/dL (Normal) 74-Rqt-338395:30 CAU Comments: ST 07/25/13 1130AMST 07/25/130AMComments: [id number] 24 hr sodium urine tCAU24 90.0 {mg/24_hr} (Normal) Range: 100.0-300.0 Comments: Reference Iruxn999.0 - 300.0Total volumne: 4525 ml/24hrPerformed at: [facility] [id number] Director: Sterling Porter MD, Phone: [phone] CAUR 2.1 mg/dL (Normal) 41-Wkw-969752:18 CBCD ALC 2.09 {X10_3/ul} (Normal) Range: 0.83-4.51 [...] 4.2-5.4 WBC 7.0 K/mm3 (Normal) Range: 4.4-11.0 31-Ddh-274344:18 CMP Comments: Comments: [id number] 24 hr sodium urine GAP 8 (Normal) [...] N Range: 41.2-243.7 Comments: Performed at: - [facility] [id number] Director: Sterling Porter MD, Phone: [phone] :[phone] T4F 1.03 ng/dL (Normal) Range: 0.76-1.46 [...] CHOL 176 mg/dL (Normal) Comments: <200 mg/dL Alkimuspd705-322 mg/dL Borderline>240 mg/dL High Risk :17 T4F 1.08 ng/dL (Normal) Comments: DR BROWN ORDERED CMP LIPIDDR WIETECHA ORDERED TSH T3F T4F BMP Range: 0.76-1.46 :17 TSH 0.49 {uIU/mL} (Normal) Comments: DR BROWN ORDERED CMP LIPIDDR WIETECHA ORDERED TSH T3F T4F BMP Range: 0.358-3.74 :52 BREAST UNILATERAL Radiology See Note Comments: STUDY: [...] Galeana M.D.November 02, 2012 at 4:00:42 PM [id number] Signed GP/GP If you are the referring physician and would like to consult with theradiologist who provided this interpretation, please contact Luis Angel Quintana at [phone]. If this radiologist is un available, youwill be directed to another radiologist to assist. If you are a patient with a question regarding this report, pleasecontactyour referring physician directly. Professional Interpretation P rovided By: [employer], Phone , These documents contain legally protected [...] destructionofthese documents. Dictated on 11/02/12 1600 by Hilary Galeana MDribed on 11/02/12 1609 by ITS IMPORTSi gn [...] Galeana M.D.November 02, 2012 at 3:22:08 PM [id number] Signed GP/GP If you are the referring physician and would like to consult with theradiologist who provided this interpretation, please contact Luis Angel Quintana at [phone]. If this radiologist is unavailable, youwil l [...] 11/02/12 1537 Sign by: Barrera Galeana MD 71-Nbn-14689:00 ABDOMEN/PELVIS WITHOUT CONT Radiology Report See Note [...] Galeana M.D.September 14, 2012 at 8:22:23 AM [id number] Signed GP/GP If you are the referring physician and would like to consult with theradiologist who provided this interpretation, please contact Luis Angel Quintana at [phone]. If this radiologist is unavailable, youwill be directed to another radiologist to assist. If you are a patient with a question regarding this report, pleasecontactyour referring niecy yang directly. Professional Interpretation Provided By: [email or web address] [email or web address], Phone , These documents contain legally protected [...] documents. Dictated on 09/14/12821 by Aureliano Galeana MDribed on 09/14/12823 by ITS IMPORTSign by Barrera Galeana MD on 09/14/12824 Sign by: Barrera Galeana MD 67-Fsr-730927:15 URINE ARELY CULTURE-IDENTIFICATN Comments: PATIENT NOT FASTINGPERFORMED BY: [facility] Jmowxq7134 [facility] [id number] Information: ADD [id number] ([id number]) Result 1 NG36 (Normal) Comments: No growth in 36 - 48 hours. Urine Culture,Comprehensive Final report (Normal) 10-Rle-088300:03 Urinalysis, Office (71588) UA - BILIRUBIN Negative (Normal) UA - BLOOD Non Hemolyzed Trace (Normal) UA - GLUCOSE Negative (Normal) UA - KETONES Negative mg/dL (Normal) UA - LEUKOCYTE ESTERASE Negative (Normal) UA - NITRITE Negative (Normal) UA - PH 7.0 (Normal) UA - PROTEIN Negative mg/dL (Normal) UA - SPECIFIC GRAVITY 1.010 (Normal) URINE UROBILINGN SPRING TIMED Normal mg/dL (Normal) 49-Xnk-661484:14 CBCMD ANC 3.2 3/uL (Normal) Range: 2.0-7.7 [...] 4.2-5.4 WBC 5.9 {k/mm3} (Normal) Range: 4.4-11.0 10-Rls-827428:14 CMP GAP 8 (Normal) Range: 5-15 CO2 [...] 7-18 GLU 86 mg/dL (Normal) Range: 70-110 75-Cya-579014:14 FT3 3.5 pg/mL (Normal) Range: 2.18-3.98 60-Ddw-639888:14 LIPID VLDL 12 mg/dL (Normal) Range: 5-40 [...] CHOL 206 mg/dL (Abnormal) Comments: <200 mg/dL Dmogrjmuc446-574 mg/dL Borderline>240 mg/dL High Risk 49-Tua-984460:14 T4F 1.17 ng/dL (Normal) Range: 0.76-1.46 52-Cdn-234474:14 TSH 0.02 {uIU/mL} (Abnormal) Range: 0.358-3.74 08-Chq-655029:14 VITD 39.9 ng/mL (Normal) Comments: Vitamin D 25(OH) Status RangeDeficiency <20 ng/mL (50nmol/L)Insufficiency 20 - 30 ng/mL (50 - 75 nmol/L)Sufficiency 30 - 100 ng/mL (75 - 250 nm ol/L)Toxicity >100 ng/mL (250 nmol/L)Effective 201222-Jun-201242-Hgj-539123:23 BILAT SCRN DIGITAL & CAD Radiology Report [...] Galeana M.D.June 22, 2012 at 2:15:23 PM [id number] Signed GP/GP If you a re the referring physician and would like to consult with theradiologist who provided this interpretation, please contact Luis Angel Quintana at [phone]. If this radiologist is unavailable, you will [...] GLU 4 HR GLU GTT-4 HOUR from 0426:X85235R. 11:43 (Abnormal) Range: 70-110 22-Jun-2012 glu gtt3 36 mg/dL Comments: 4HR GTT GLU 3 HR GLU GTT-3 HOUR from 0426:F58329L. 10:50 (Abnormal) Range: 70-110 Comments: CRITICAL VALUE REPEATED AND VERIFIED. CALLED TO ANUEL BENTLEY06/22/12 MARGY SYKES.RESULTS READ BACK BY SAME . 22-Jun-2012 glu gtt2 84 mg/dL (Normal) Comments: 4HR GTT GLU 2 HR GLU GTT-2 HOUR from 0426:U43078N. 9:50 Range: 70-120 22-Jun-2012 glu gtt1 118 mg/dL Comments: 4HR GTT GLU 1 HR GLU GTT-1 HOUR from 0426:D60411J. 8:50 (Abnormal) Range: 120-170 22-Jun-2012 glu gtt.5 140 mg/dL Comments: 4HR GTT GLU 1/2 HR GLU GTT-30 min. from 6:Q11930W. 8:20 (Normal) Range: 110-170 91-Rig-55559:40 BGM Comments: 4HR GTT FASTING GLU GTT-FASTING from 0426:A33660A. glu gttf 94 mg/dL (Normal) Range: 70-110 Comments: GLUCOSE TOLERANCE TEST Reference IntervalNon- AdultsFasting 70 - 07285 minutes 110 - 1701 hour 120 - 1702 hour 70 - 1203 hour 70 - 1104 hour 70 - 1105 hour 70 - 110 BGM 97 mg/dL (Normal) Range: 70-110 Comments: MANAGEMENT OF PATIENT CARE PER NURSING PROTOCOLNo Action Required0 :40 CBCD Comments: DR DAILY ORDERED [id number] TRES ORDERED CMP CBCD ANC 2.2 3/uL [...] 4.4-11.0 :40 CMP Comments: DR DAILY ORDERED [id number] VILLAFANA ORDERED CMP CBCD GAP 8 (Normal) [...] 7-18 GLU 93 mg/dL (Normal) Range: 70-110 35-Pzb-60692:40 GTT4 Comments: DR DAILY ORDERED [id number] VILLAFANA ORDERED CMP CBCD 29-May-20129:31 CBC WITH MANUAL DIFF Comments: PATIENT NOT FASTINGPERFORMED BY: [facility]CoR[facility]al HealthCareUdtbup8524 [facility] [id number] Information: [id number] ([id number]) Immature Grans (Abs) 0.0 {x10E3/uL} (Normal) Range: [...] 9.0 {x10E3/uL} (Normal) Range: 4.0-10.5 :31 TSH (34315) Comments: PATIENT NOT FASTINGPERFORMED BY: [facility]CoR[facility] Behavioral HealthCareGwdmsx2767 [facility] [id number] TSH 6.430 {uIU/mL} (Abnormal) Range: 0.450-4.500 :31 EBV Panel (09785) Comments: PATIENT NOT FASTINGPERFORMED BY: [facility]Co[facility] HealthCareBvplpu3768 [facility] [id number] Interpretation: [facility] (Normal) Comments: EBV Interpretation Chart . Interpretation [...] 5:28 (Abnormal) Comments: Results confirmed ondilution.Performed at: [address] [id number] Director: Omer Stout PhD, Phone: [phone] TSH 0.90 {uIU/mL} Range: 0.358-3.74 5:28 (Normal) 2-Fam-818382:59 Urinalysis, Office (35068) UA - BILIRUBIN Negative (Normal) UA - BLOOD Hemolyzed Trace (Normal) UA - GLUCOSE Negative (Normal) UA - KETONES Negative mg/dL (Normal) UA - LEUKOCYTE ESTERASE Negative (Normal) UA - NITRITE Negative (Normal) UA - PH 7.0 (Normal) UA - PROTEIN Negative mg/dL (Normal) UA - SPECIFIC GRAVITY 1.010 (Normal) URINE UROBILINGN SPRING TIMED Normal mg/dL (Normal) 5-Exc-199516:11 ARELY CULTURE-OTHER (21540) Comments: PATIENT NOT FASTINGPERFORMED BY: [address] [id number] Information: SRC:THRT [id number] Result 1 RRF (Normal) Comments: Routine respiratory kaylene Upper Respiratory Culture Final report (Normal) 9-Scq-449171:58 Rapid Strep Test, Office (30578) Rapid Strep Test, Office Negative (Normal) 3-Jqh-285405:47 Urinalysis, Office (79350) UA - BILIRUBIN Negative (Normal) UA - BLOOD Hemolyzed Trace (Normal) UA - GLUCOSE Negative (Normal) UA - KETONES Negative mg/dL (Normal) UA - LEUKOCYTE ESTERASE Negative (Normal) UA - NITRITE Negative (Normal) UA - PH 6.0 (Normal) UA - PROTEIN Negative mg/dL (Normal) UA - SPECIFIC GRAVITY 1.010 (Normal) URINE UROBILINGN SPRING TIMED Normal mg/dL (Normal) 2-Mmr-579385:11 URINE ARELY CULTURE (SPRING Comments: PATIENT NOT FASTINGPERFORMED BY: [facility] Nngdsu7595 [facility] [id number] Information: SRC:UR [id number] COL COUNT) ([id number]) Result 1 MUG (Normal) Comments: Mixed urogenital ywgkq383 Colonies/mL Urine Final report (Normal) Culture,Comprehensive 93-Amb-111125:1 ISAIAS 8.59 ug/dL (Normal) Comments: COMMENTS: FAX RESULTS TO DR. KEVIN HARTMAN DRAW 0 Range: 3.09-22.40 Comments: Adult (AM) 4.30 - 22.40 ug/dL Adult (PM) 3.09 - 16.66 ug/dL 95-Lmh-06846:40 ISAIAS 10.40 ug/dL (Normal) Comments: COMMENTS: FAX [...] (Normal) Range: 70-110 Comments: RESULTS FAXED TO [phone] 01/13/12 0934 MARINE TOURE.RESULTS FAXED TO [phone] 01/13/12 0959 MARINE TOURE. :25 ISAIAS 13.11 [...] Range: 0-34 Comments: Results confirmed ondilution.Performed at: [place] [id number] Director: Omer Stout PhD, Phone: [phone] :[phone] TSH 5.66 {uIU/mL} (Abnormal) Comments: COMMENTS: [...] 4.2-5.4 WBC 7.6 K/mm3 (Normal) Range: 4.4-11.0 02-Jan-20129:15 CMP Comments: DR BROWN ORDERED LIPID,CMP,TSH,CBCMDDR ANYLANKI ORDRED CMP,CBCD GAP 7 (Normal) Range: 5-15 [...] ORDERED LIPID,CMP,TSH,CBCMDDR VELLANKI ORDRED CMP,CBCD Range: 0.358-3.74 4-Skp-089135:46 MYOCARD PERF STRESS/REST MULT Radiology Report See [...] 12/05/11 0829 Sign by: Uzair Retana MD 26-Dnq-272116:42 BRAIN W/WO CONTRAST Radiology Report See Note [...] Soto M.D.November 16, 2011 at 2:50:07 PM [id number] Signed LL/LL If you are the referring physician and would like to consult with theradiologist who provided this interpretation, please contact Shahla Weiss M.D. at . If this radiologist is unavailable, you willbe directed to another radiologist to assist. If you are a patient with a question regarding this report, pleasecontactyour referring physician fabiana fuentes. Professional Interpretation Provided By: [email or web address], Phone , These documents contain legally protected [...] 11/16/11 1457 Sign by: SHAHLA SOTO MD [id number] CHEST WITH CONTRAST Radiology Report See Note [...] Galeana M.D.November 14, 2011 at 3:11:11 PM [id number] Signed GP/GP If you are the referring physician and would like to consult with theradiologist who provided this interpretation, please contact Luis Angel Quintana at . If this radiologist is unavailable, youwill be directed to another radiologist to assist. If you are a patient with a question regarding this report, pleasecontactyour referring physician directly. Professional Interpretation Provided By: [email or web address], Phone , These documents contain legally protected [...] destructionofthese documents. Dictated on 11/14/11 1430 by Hilary Galeana MDribed on 11/15/11 1542 by ITS IMPORTSign by Barrera Galeana MD on 11/15/11 1543 Sign by: Barrera Galeana MD 46-Gny-387708:39 L/S SPINE,MIN 4 VIEWS Radiology Report See [...] Galeana M.D.November 14, 2011 at 3:46:06 PM [id number] Signed GP/GP If you are the referring physician and would like to co nsult with theradiologist who provided this interpretation, please contact Luis Angel Quintana at [phone]. If this radiologist is unavailable, youwill be directed to another radiologist to irene ruiz. If you are a patient with a question regarding this report, pleasecontactyour referring physician directly. Professional Interpretation Provided By: [email or web address], Phone ,Fax These documents contain legally protected [...] 11/15/11 1605 Sign by: Barrera Galeana MD 05-Msj-120342:38 CERV SPINE,MIN 4 VIEWS Radiology Report See [...] fusion at the C4, C5, and C5, Q8eafagcveac prosthetic disk material. 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 Normal visualized intervertebral neuroforamina. Normal visuali zed soft tissue structures. IMPRESSION:Anterior fusion at the C4-C5 and C6- C7 levels. Signed:Barrera Galeana M.D.November 14, 2011 at 3:47:12 PM [id number] Signed GP/GP If you ar e the referring physician and would like to consult with theradiologist who provided this interpretation, please contact Luis Angel Quintana at [phone]. If this radiologist is unavailable, youw ill [...] documents. Dictated on 11/14/11 1006 by Wendy IRVIN,Hilaryribed on 11/14/111552 by ITS IMPORTSign by Barrera Galeana MD on 11/14/111553 Sign by: Barrera Galeana MD 80-Tib-971552:38 HIP, MIN 2 VIEWS Radiology Report See [...] Galeana M.D.November 14, 2011 at 3:48:20 PM [id number] Signed GP/GP If you are the referring physician and would like to consult with theradiologist who provided this interpre tation, please contact Luis Angel Quintana at [phone]. If this radiologist is unavailable, youwill be directed to another radiologist to assist. If you are a patient with a question regarding t his report, pleasecontactyour referring physician directly. Professional Interpretation Provided By: [email or web address], Phone , These documents contain legally protected [...] Dicta kat on 11/14/11 1006 by Wendy IRVIN,Tomasabed on 11/14/111554 by ITS IMPORTSign by Barrera Galeana MD on 11/14/111555 Sign by: Wendy IRVINBarrera :52 CBCMD RBCM NORM C+C {NORMAL} (Normal) PE [...] or Pulmonary Embolism (PE)RESULTS CALLED TO YOVANNY BROWN;Bradly 11/14/11 ROSIE GIBSON.REPORT READ BACK BY SAME [...] Galeana M.D.November 14, 2011 at 3:48:08 PM [id number] Signed GP/GP If you are the referring physician and would like to consult with ld gastelumogjimbo who provided this interpretation, please contact Luis Angel Quintana at [phone]. If this radiologist is unavailable, youwill be directed to another radiologist to assist. If you are a patient with a question regarding this report, pleasecontactyour referring physician directly. Professional Interpretation Provided By: [email or web address], Phone , These document s contain legally [...] 11/15/11 1608 Sign by: Barrera Galeana MD 4-Mqu-469619:42 JACQUI Comments: DR BROWN ORDERED LIPID TSH CMPDR VELLANKI ORDERED CMP CBCD DNA JACQUI CHERIE SCL-70 SSA/SSBENA ANTICENTROMERE taANA 45 AU/mL (Normal) 4-Ynz-322853:42 ANEX Comments: DR BROWN ORDERED LIPID TSH CMPDR VELLANKI ORDERED CMP CBCD DNA JACQUI CHERIE SCL-70 SSA/SSBENA ANTICENTROMERE taANA COMMENT (Normal) Comments: TESTING INTERPRETATIONSPOSITIVE: > 120EQUIVOCAL: 100 - 120NEGATIVE: < 100 taRNP 29 AU/mL (Normal) taSM 32 AU/mL (Normal) 1-Uka-512190:42 ANTIJO1 Comments: DR BROWN ORDERED LIPID TSH CMPDR VELLANKI ORDERED CMP CBCD DNA JACQUI CHERIE SCL-70 SSA/SSBENA ANTICENTROMERE taJO1 17 AU/mL (Normal) 3-Spl-976195:42 CBCD ANC 3.9 3/uL (Normal) Range: 2.0-7.7 [...] 4.2-5.4 WBC 6.2 K/mm3 (Normal) Range: 4.4-11.0 1-Uby-129951:42 CENTB Comments: DR BROWN ORDERED LIPID TSH CMPDR VELLANCHING ORDERED CMP CBCD DNA JACQUI CHERIE SCL-70 SSA/SSBENA ANTICENTROMERE taCENTB 6 AU/mL (Normal) 4-Aqi-795713:42 CMP Comments: DR BROWN ORDERED LIPID TSH [...] 7-18 GLU 94 mg/dL (Normal) Range: 70-110 3-Ayb-782885:42 DNAAB Comments: DR BROWN ORDERED LIPID TSH CMPDR VELLANKI ORDERED CMP CBCD DNA JACQUI CHERIE SCL-70 SSA/SSBENA ANTICENTROMERE tadsDNA 5 {IU/mL} (Normal) 7-Jpt-240102:42 LIPID Comments: DR BROWN ORDERED LIPID TSH [...] 200-240 mg/dL Borderline >240 mg/dL High Risk 8-Lhe-358755:42 SCL70 Comments: DR BROWN ORDERED LIPID TSH CMPDR VELLANKI ORDERED CMP CBCD DNA JACQUI CHERIE SCL-70 SSA/SSBENA ANTICENTROMERE taSCL70 45 AU/mL (Normal) 9-Zrs-057129:42 SSA Comments: DR BROWN ORDERED LIPID TSH CMPDR VELLANKI ORDERED CMP CBCD DNA JACQUI CHERIE SCL-70 SSA/SSBENA ANTICENTROMERE taSSA 31 AU/mL (Normal) 8-Sjq-532444:42 SSB Comments: DR BROWN ORDERED LIPID TSH CMPDR VELLANKI ORDERED CMP CBCD DNA JACQUI CHERIE SCL-70 SSA/SSBENA ANTICENTROMERE taSSB 34 AU/mL (Normal) 7-Ltj-624533:42 TSH 11.70 {uIU/mL} (Abnormal) Comments: DR BROWN ORDERED LIPID TSH CMPDR VELLANKI ORDERED CMP CBCD DNA JACQUI CHERIE SCL-70 SSA/SSBENA ANTICENTROMERE Range: 0.358-3.74 60-Iyc-79436:36 ESOPHAGUS ONLY Radiology Report See Note (Normal) [...] Galeana M.D.September 13, 2011 at 9:19:02 AM [id number] ly Signed GP/GP If you are the referring physician and would like to consult with theradiologist who provided this interpretation, please contact Luis Angel Quintana at [phone]. If this radiolo gist is unavailable, youwill be directed to another radiologist to assist. If you are a patient with a question regarding this report, pleasecontactyour referring physician directly. Professional Interp retation Provided By: [email or web address], Phone , Dictated on 09/13/11 0834 by Wendy IRVIN,Kimranscribed on 09/13/11 0945 by ITS IMPORTSign by Barrera Galeana MD on 09/13/11945 Sign by: Barrera Galeana MD 66-Zth-27511:47 CBCMD RBCM NORM C+C {NORMAL} (Normal) PE [...] :47 TSH 26.20 {uIU/mL} (Abnormal) Range: 0.358-3.74 6-Udc-035048:01 CHEST, PA AND LATERAL Radiology Report See Note (Normal) Comments: PROCEDURE: X-RAY CHEST REASON FOR EXAM: Female, 50 years old. Cough and chest congestion. TECHNIQUE: PA and lateral views of the chest. COMPARISON: Comparison is made with prior melodie dy dated May. FINDINGS: The lungs are [...] Signed GP/GP Professional Interpretation Provide d By: [employer] [facility], , To consult with a radiologist regarding this report, please call our [id number] line @ Dictated on 03/10 1331 by Wendy IRVIN,AcrieleTranscribed on 06/28/11 1852 by ITS IMPORTSign by Barrera Galeana MD on 06/28/11 1853 Sign by: Barrera Galeana MD 54-Kke-35180:32 THYROID Radiology Report See Note (Normal) Comments: [...] change has occurred [facility]. IMPRESSION:1. These size of the thyroid gland is stable.2. 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 Signed:John Spencer M.D.June 24, 2011 at 4:51:02 PM EDTElectronically Signed DL/DL Professional Interpretation Provided By: [facility], , To consult with a radiologist regarding t his report, please call our [id number] line @ Dictated on 06/24/11 1013 by John Spencer MDTranscribed on 06/24/11 1655 by ITS IMPORTSign by John Spencer MD on 06/24/11 165 Sign by: John Spencer MD 31-Cbs-19386:30 BILAT SCRN DIGITAL & CAD Radiology Report [...] EDTElectronically Signed GP/GP Professional Interpretation Provided By: [facility], , To consult with a radiologist regarding this report, please call our [id number] line @ Dictated on 06/24/11 0945 by Marcel Galeana MDscribed on 06/24/11 1025 by ITS IMPORTSign by Barrera Galeana MD on 06/24/11 1026 Sign by: Barrera Galeana MD : CUT See Note (Normal) Comments: CULTURE OF [...] 7-18 GLU 94 mg/dL (Normal) Range: 70-110 15-Mqg-238336:46 EBGM tEBINT Comment (Normal) Comments: EBV Interpretation Chart . Interpretation VCA-IgM EA-IgG VCA-IgG NA-ABS . Susceptible - - - - Acute Infection + +or- +or- - Convalescent Phase +or- +or- + + Chronic or Reactivated - + + +or- Old Infection - - +or- + + Antibody Pr esent - Antibody AbsentPerformed at: [facility] [id number] Director: Iraida Willingham MD, Phone: [phone] EBNA > 8.0 {AI} (Abnormal) Range: 0.0-0.8 Comments: Negative <0.9 Equivocal 0.9 - 1.0 Positive >1.0 EBVG > 8.0 {AI} (Abnormal) Range: 0.0-0.8 Comments: Negative <0.9 Equivocal 0.9 - 1.0 Positive >1.0 EBEAG < 0.2 (Normal) Comments: Negative <0.9 Equivocal 0.9 - 1.0 Positive >1.0 EBVM < 0.2 {AI} (Normal) Range: 0.0-0.8 Comments: Negative <0.9 Equivocal 0.9 - 1.0 Positive >1.0 90-Bgx-187609:28 CHEST, PA AND LATERAL Radiology Report See [...] radiologist regarding this report, please call our [id number] line @ Dictated on 06/07/11 1321 by Wendy IRVIN,Tomasa bed on 06/07/111407 by ITS IMPORTSign by Wendy IRVIN,Barrera on 06/07/111408 Sign by: Barrera Galeana MD CUT See Note (Normal) Comments: #1- PRESUMPTIVE FRANK ALBICANSNo beta-hemolytic streptococcus isolated. AMOUNT GROWTH RARE ORGANISM 1: YEAST 4:09 H.PYLORI [id number] < 0.9 U/mL (Normal) Range: 0.0-0.8 1:47 Comments: Negative <0.9 Indeterminate 0.9 - 1.0 Positive >1.0Performed at: CB - [facility] [address] [id number] Director: Iraida Willingham MD, Phone: [phone] 7-Sav-013753:34 CBCD,SMEAR DIFF MACROCYTE 1+ (Normal) RED CELL [...] 4.2-5.4 WBC 7.6 K/mm3 (Normal) Range: 4.4-11.0 :34 COMP METABOLIC GAP 8 (Normal) Range: 5-15 [...] 7-18 GLU 83 mg/dL (Normal) Range: 70-110 8-Utg-722098:20 Urinalysis, Office (37308) UA - BILIRUBIN Negative (Normal) UA - [...] URINE CULTURE Culture exhibits no growth. (Normal) 0-Sbm-018202:07 CULTURE, THROAT See Note (Normal) Comments: AMOUNT [...] $ <=10 S VANCOMYCIN $ <=1 S 4-Dgi-545223:30 Rapid Strep Test, Office (10141) Rapid Strep Test, Office Negative (Normal) 90-Tkz-260184:52 SPINE,CERVICAL WITHOUT CONTRAS Radiology Report See Note [...] 20/01 1357 by Kim Galeana MDranscribed on 07/21/10100 by ITS IMPORTSign by Barrera Galeana MD on 07/21/10101 Sign by: Barrera Galeana MD 83-Fvm-398285:22 CERV SPINE,MIN 4 VIEWS Radiology Report See Note (Normal) Comments: CLINICAL:Female, 49 years old. Neck pain. X-RAY EXAMINATION - CERVICAL SPINE TECHNIQUE:Five views of the cervical spine were obtained. COMPARISON:None FINDINGS:Normal craniovertebral junction. Normal anterior atlantoaxialarticulation. Normal odontoid process. There is straightening of the normal cervical lordosis. Normal vertebralbodies and posterior osseous elements. The transverse processes of F3knkzgwxyxfcb. There is multi-level degenerative disc space narrowing with endplatespondylosis. There is multi-level osseous foraminal stenosis at Z1-B1ybvN7-Z0, bilateral. Normal visualized soft tiss ue structures. IMPRESSION:Multilevel degenerative disc disease with osseous foraminal stenosis.Prominent transverse processes of C7 may cause thoracic outlet syndrome.Straightening of the normal cervica l lordosis. Dictated on 07/13/101535 by MANJINDER HOLLIDAY MDOTranscribed on 07/14/10 1209 by ITS IMPORTSign by SWATI HOLLIDAY MD on 07/14/10 1210 Sign by: SWATI HOLLIDAY MD :00 CHEST, PA AND LATERAL Radiology Report See [...] 07/14/10 1304 Sign by: SWATI HOLLIDAY MD 38-Ekz-24725:35 BILAT SCRN DIGITAL & CAD Radiology Report [...] 06/22/10 0905 by MELISSA LEES MDTranscribed on 06/22/102350 by ITS IMPORTSign by MELISSA LEES MD on 06/22/102351 Sign by: MELISSA LEES MD 35-Ebn-87425:34 DEXA BONE DENSITY STUDY (HP) Radiology Report See Note (Normal) Comments: CLINICAL:Female, 49 years old. The patient is a postmenopausal. EXAMINATION:DUAL ENERGY X-RAY ABSORPTIOMETRY / DEXA. TECHNIQUE:Bone Mineral Density (BMD) measurements of lumbar spine and bi lateralhipsw ere obtained using a Ning scanner.. COMPARISON:Comparison is made with prior study [...] Foundation [email or web address] Dictated on 06/22/10 0942 by Kim Galeana MDranscribed on 06/22/101444 by ITS IMPORTSign by Barrera Galeana MD on 06/22/101444 Sign by: Barrera Galeana MD 9-Xgv-018727:14 Rapid Strep Test, Office (94651) Rapid Strep Test, Office Negative (Normal) 04-Jun-20100:00 CULTURE, THROAT See Note (Normal) Comments: Normal throat kaylene isolated. No beta-hemolyticstreptococcus isolated. 01-Jun-20109:29 CBCD,SMEAR DIFF Comments: DR. BROWN ORDERED TSH LIPID CMP VITD CBCMDDRIfeanyi VILLAFANA CMP CBCD VITD MACROCYTE 1+ (Normal) RED [...] 4.2-5.4 WBC 7.1 K/mm3 (Normal) Range: 4.4-11.0 01-Jun-20109:29 COMP METABOLIC Comments: DR. BROWN ORDERED TSH [...] BROWN ORDERED TSH LIPID CMP VITD CBCMDDR. VELEDSONKI CMP CBCD VITD HDL 65 mg/dL (Normal) [...] CMP VITD CBCMDDR. NENITAKI CMP CBCD VITD Range: 0.358-3.74 :29 VIT D,25 91545 53.4 ng/mL (Normal) Comments: DR. BROWN ORDERED TSH LIPID CMP VITD CBCMDDR. NENITAKI CMP CBCD VITD Range: 32.0-100.0 Comments: Recent studies consider the lower limit of 32.0 ng/mL to ama threshold for optimal health.Fco GARCIA. J Nutr. 2004;135(2):317-22.Performed at: [address] Director: Iraida Willingham MD, Phone: [phone] 67-Kvi-172305:30 LQD PAP [id number] PAPSMR Comment (Normal) Comments: The Pap smear [...] no HPV testing was performed. .Performed at: [address] AntonioMinh, [place] [id number] Director: Nita Hernandez MD, Phone: [phone] COMM . (Normal) DIAGN Comment (Normal) Comments: NEGATIVE FOR INTRAEPITHELIAL LESION AND MALIGNANCY.CELLULAR CHANGES ASSOCIATED WITH ATROPHY ARE PRESENT.Satisfactory for evaluation.Kiran Gayle, Diecast Machine Operator ([facility]) :41 BONE SCAN WHOLE BODY Radiology [...] Report See Note (Normal) Comments: Exam Number: [id number] LINICAL:This is a 49-year-old female patient with [...] Report See Note (Normal) Comments: Exam Number: [id number] LINICAL:This is a 49 year old female [...] as noted above. Reported By: BARRERA GALEANA 1-Hxy-660332:41 THYROID (HP) Radiology Report See Note (Normal) Comments: Exam Number: [id number] LINICAL:This is a 49-year-old female patient with [...] described. Reported By: BARRERA GALEANA : ANTI-CCP 152160 2 {units} (Normal) Range: 0-19 41 Comments: Negative <20 Weak positive 20 - 39 Moderate positive 40 - 59 Strong positive >59Performed at: BN - [facility] [address] [place], [place] [id number] Director: Eusebio Live MD, Phone: [phone] :[phone] JACQUI DIR SEMI-QL JACQUI DIRECT 77 [...] CHOL 166 mg/dL (Normal) Comments: <200 mg/dL Vxhiakbwl156-727 mg/dL Borderline>240 mg/dL High Risk TRIG 85 mg/dL (Normal) Comments: Serum Triglycerides Reference IntervalNormal <150 mg/dLBorderline high 150 - 199 mg/dLHigh 200 - 499 mg/ dLVery High > or = 500 mg/dL 01-Iiu-352852:13 LIVER ALB 4.3 g/dL (Normal) Range: 3.4-5.0 ALK P 52 U/L (Normal) Range: 50-136 ALT 20 U/L (Normal) Range: 12-78 AST 11 U/L (Abnormal) Range: 15-37 D BILI 0.17 mg/dL (Normal) Range: 0.00-0.30 T BILI 0.80 mg/dL (Normal) Range: 0.00-1.00 T PROT 7.6 g/dL (Normal) Range: 6.4-8.2 92-Xlf-051898:13 TSH 0.49 {uIU/mL} (Normal) Range: 0.358-3.74 :13 VIT D,25 03340 63.3 ng/mL (Normal) Range: 32.0-100.0 Comments: Recent studies consider the lower limit of 32.0 ng/mL to ama threshold for optimal health.Fco GARCIA. J Nutr. 2004;135(2):317-22.Performed at: [place] [id number] Director: Iraida Willingham MD, Phone: [phone] 5-Ewn-664632:57 CHEST, PA AND LATERAL ([place]) Radiology Report See Note (Normal) Comments: Exam Number: [id number] X-RAY EXAMINATION: CHEST CLINICAL:This is a 49-year-old [...] 47-70 WBC 6.7 K/mm3 (Normal) Range: 4.4-11.0 72-Zwp-94536:14 COMP METABOLIC GAP 7 (Normal) Range: 5-15 [...] CHOL 320 mg/dL (Abnormal) Comments: <200 mg/dL Tdekusujc333-023 mg/dL Borderline>240 mg/dL High Risk TRIG 107 mg/dL (Normal) Comments: Serum Triglycerides Reference IntervalNormal <150 mg/dLBorderline high 150 - 199 mg/dLHigh 200 - 499 mg/ dLVery High > or = 500 mg/dL :14 T4 FREE DIRECT 0.70 ng/dL (Abnormal) Range: 0.76-1.46 :14 TSH 15.20 {uIU/mL} Range: 0.358-3.74 (Abnormal) 67-Kxa-662327:01 BILAT SCRN DIGITAL & CAD Radiology Report See Note (Normal) Comments: Exam Number: [id number] MAMMOGRAM, BILATERAL SCREENING DIGITAL AND CAD HISTORYRoutine [...] mammograms werealso examined with computer-aided detection software ([employer], [employer] Reported By: MELISSA LEES M.D. Plan [...] Other hyperlipidemia Planned Observations T3, FREE (TRIDOTHYRONINE) (55343)Indication: Thyroid disorder On: :35 Request T4, FREE (THYROXINE) (73448)Indication: Thyroid disorder On: :35 Request TSH (26711)Indication: Thyroid disorder On: :46 Request METABOLIC PANEL, COMPREHENSIVE (90602)Indication: Right flank pain On: :21 Request Comments: stat CBC W/AUTO DIFF WBC (11270)Indication: Right flank pain On: :21 Request Comments: stat CBC with auto diff (49052)Indication: Impaired fasting glucose On: 6-Tuo-667077:53 Request METABOLIC PANEL, COMPREHENSIVE (66899)Indication: Impaired fasting glucose On: 0-Xjz-573802:53 Request HGB A1C (98383)Indication: Impaired fasting glucose On: 6-Yyl-822321:53 Request LIPID PANEL (58540)Indication: Other hyperlipidemia On: 5-Tql-056616:53 Request Vitamin D Hydroxy (35187)Indication: Vitamin D deficiency On: :10 Request LIPID PANEL (65592)Indication: Other hyperlipidemia On: :10 Request CBC with auto diff (60959)Indication: Impaired fasting glucose On: :08 Request METABOLIC PANEL, COMPREHENSIVE (17753)Indication: Impaired fasting glucose On: 44-Oob-773060:08 Request C-REACTIVE PROTEIN (97226)Indication: Left-sided face pain On: :08 Request SED RATE ERYTHROCYTE (32739)Indication: Left-sided face pain On: 31-Nfk-370740:08 Request HGB A1C (29413)Indication: Impaired fasting glucose On: :08 Request CBC, PLATELETS & MANUAL DIFF (59735)Indication: Fatigue On: 21-Ecj-666260:44 Request EBV Panel (19235)Indication: Fatigue On: 57-Apd-533877:44 Request LIPID PANEL (38084)Indication: Other hyperlipidemia On: :00 Request CBC with auto diff (99001)Indication: Impaired fasting glucose On: 9-Nme-505296:00 Request METABOLIC PANEL, COMPREHENSIVE (84734)Indication: Impaired fasting glucose On: :00 Request HGB A1C (96843)Indication: Impaired fasting glucose On: 6-Hog-703183:00 Request LIPID PANEL (45221)Indication: Other hyperlipidemia On: : Request TSH (THYROID STIMULATING HORMONE) (49963)Indication: Acquired hypothyroidism On: : Request CBC with auto diff (40591)Indication: Impaired fasting glucose On: : Request METABOLIC PANEL, COMPREHENSIVE (13539)Indication: Impaired fasting glucose On: Request MICROALBUMIN: CREATININE RATIO (85561) AND (32519)Indication: Impaired fasting glucose On: : Request HGB A1C (08821)Indication: Impaired fasting glucose On: Request CBC W/AUTO DIFF WBC (43367)Indication: Primary adrenocortical insufficiency On: :06 Request METABOLIC PANEL, COMPREHENSIVE (54122)Indication: Primary adrenocortical insufficiency On: :06 Request LIPID PANEL (16088)Indication: Other hyperlipidemia On: : Request CBC with auto diff (37384)Indication: Impaired fasting glucose On: : Request METABOLIC PANEL, COMPREHENSIVE (84628)Indication: Impaired fasting glucose On: : Request HGB A1C (59419)Indication: Impaired fasting glucose On: :26 Request TSH (17132)Indication: Acquired hypothyroidism On: 41-Aqp-427840:59 Request Comments: 6 weeks RHEUMATOID FACTOR-QUANT (96888)Indication: Joint pain On: 81-Oev-129337:02 Request C-REACTIVE PROTEIN (16802)Indication: Joint pain On: 84-Nvt-531514:02 Request SED RATE ERYTHROCYTE (47721)Indication: Joint pain On: 54-Leh-776011:02 Request URIC ACID BLOOD (67691)Indication: Joint pain On: 58-Cxa-802432:02 Request T3, FREE (TRIDOTHYRONINE) (42338)Indication: Acquired hypothyroidism On: :58 Request T4, FREE (THYROXINE) (70208)Indication: Acquired hypothyroidism On: :58 Request TSH (00184)Indication: Acquired hypothyroidism On: :58 Request CBC W/AUTO DIFF WBC (69952)Indication: Edema, unspecified type On: :48 Request METABOLIC PANEL, COMPREHENSIVE (38231)Indication: Edema, unspecified type On: :48 Request SODIUM URINE (84147)Indication: Hyponatremia On: :30 Request Vitamin D Hydroxy (15276)Indication: Hypocalcemia On: : Request PARATHORMONE (11974)Indication: Hypocalcemia On: : Request PHOSPHORUS (57339)Indication: Hypocalcemia On: : Request METABOLIC PANEL, COMPREHENSIVE (69579)Indication: Hypocalcemia On: :30 Request T3, FREE (TRIDOTHYRONINE) (00015)Indication: Acquired hypothyroidism On: :20 Request T4, FREE (THYROXINE) (77863)Indication: Acquired hypothyroidism On: :20 Request TSH (25626)Indication: Acquired hypothyroidism On: :20 Request HGB A1C (12066)Indication: Impaired fasting glucose On: :17 Request MICROALBUMIN: CREATININE RATIO (32858) AND (14285)Indication: Impaired fasting glucose On: :17 Request METABOLIC PANEL, COMPREHENSIVE (91492)Indication: Impaired fasting glucose On: :17 Request T3, FREE (TRIDOTHYRONINE) (16067)Indication: Acute nonintractable headache, unspecified headache type On: :46 Request T4, FREE (THYROXINE) (63310)Indication: Acute nonintractable headache, unspecified headache type On: :46 Request TSH (31522)Indication: Acute nonintractable headache, unspecified headache type On: :46 Request TSH (35759)Indication: Acquired hypothyroidism On: :46 Request T4, FREE (THYROXINE) (90568)Indication: Acquired hypothyroidism On: :46 Request Metabolic Panel, Basic (39183)Indication: Hyponatremia On: :46 Request T3, FREE (TRIDOTHYRONINE) (37284)Indication: Acquired hypothyroidism On: :46 Request MICROALBUMIN: CREATININE RATIO (37924) AND (14666)Indication: Impaired fasting glucose On: :55 Request LIPOPROTEIN, BLD, BY NMR (02623)Indication: Other hyperlipidemia On: :55 Request METABOLIC PANEL, COMPREHENSIVE (04446)Indication: Osteoporosis On: :52 Request Vitamin D Hydroxy (78739)Indication: Osteopenia On: : Request CBC W/AUTO DIFF WBC (99431)Indication: Gastroesophageal reflux disease without esophagitis On: : Request METABOLIC PANEL, COMPREHENSIVE (55769)Indication: Other hyperlipidemia On: 11-Pxq-857019:03 Request LIPID PANEL (76560)Indication: Other hyperlipidemia On: 63-Dlp-505099:03 Request DHEA-S (DEHYDROEPIANDROSTERONE SULFATE) (41895)Indication: Adrenal disorder, other On: :29 Request VITAMIN D, 1, 25-DIHYDROXY (63011)Indication: Vitamin D deficiency On: :29 Request T4, TOTAL (30352)Indication: Acquired hypothyroidism On: : Request T3, TOTAL (TRIDOTHYRONINE) (63908)Indication: Acquired hypothyroidism On: :29 Request T3, FREE (TRIDOTHYRONINE) (69754)Indication: Acquired hypothyroidism On: :28 Request T4, FREE (THYROXINE) (09362)Indication: Acquired hypothyroidism On: :28 Request TSH (32116)Indication: Acquired hypothyroidism On: : Request T4, FREE (THYROXINE) (88239)Indication: Thyroid nodule On: 6-Fgw-975415:57 Request T3, FREE (TRIDOTHYRONINE) (35293)Indication: Thyroid nodule On: 7-Wlm-823497:57 Request TSH (75547)Indication: Thyroid nodule On: 9-Uxa-055366:57 Request T3, FREE (TRIDOTHYRONINE) (45129)Indication: Acquired hypothyroidism On: :39 Request Comments: forward to Dr Grimm Endocronologist, [place] T4, FREE (THYROXINE) (42160)Indication: Acquired hypothyroidism On: :39 Request Comments: forward to Dr Grimm, Endocronologist, [facility] TSH (57325)Indication: Acquired hypothyroidism On: :39 Request Comments: forward to Dr Grimm Endoccandiceologist, [facility] DHEA (DEHYDROEPIANDROSTERONE) (17239)Indication: Adrenal disorder, other On: :39 Request Comments: forward to Dr Grimm Endoccandiceologist, [place] CALCIFEDIOL (03194)Indication: Vitamin D deficiency On: :38 Request Comments: forward to Dr Grimm, Endocronologist, [facility] METABOLIC PANEL, COMPREHENSIVE ([id number])Indication: Other hyperlipidemia On: 15-Fxq-956719:32 Request LIPID PANEL ([id number])Indication: Other hyperlipidemia On: 96-Ujn-647029:32 Request CBC W/AUTO DIFF WBC (65706)Indication: Macrocytosis without anemia On: 11-Mwn-769059:53 Request METABOLIC PANEL, COMPREHENSIVE (64910)Indication: Other hyperlipidemia On: 61-Pvx-305054:53 Request LIPID PANEL ([id number])Indication: Other hyperlipidemia On: 26-Cls-993959:53 Request METABOLIC PANEL, COMPREHENSIVE (71346)Indication: Other hyperlipidemia On: 88-Mxe-579599:24 Request LIPID PANEL (12745)Indication: Other hyperlipidemia On: 96-Efw-343816:24 Request CULTURE, SPUTUM (45261)Indication: Cough On: 72-Bki-398674:14 Request METABOLIC PANEL, COMPREHENSIVE (53163)Indication: Other hyperlipidemia On: 4-Isg-729992:02 Request LIPID PANEL (21343)Indication: Other hyperlipidemia On: 9-Jrr-188422:02 Request CBC WITH MANUAL DIFF ([id number])Indication: Upper Respiratory Infection On: 9-Qpd-386691:11 Request METABOLIC PANEL, COMPREHENSIVE (33561)Indication: Upper Respiratory Infection On: 9-Ldo-217858:11 Request LIPID PANEL (57753)Indication: Other hyperlipidemia On: : Request LIPID PANEL (54597)Indication: Other hyperlipidemia On: :28 Request METABOLIC PANEL, COMPREHENSIVE (22918)Indication: Other hyperlipidemia On: :28 Request Vitamin D Hydroxy (16003)Indication: Osteopenia On: :16 Request CBC WITH MANUAL DIFF ([id number])Indication: Fatigue On: :16 Request METABOLIC PANEL, COMPREHENSIVE (96071)Indication: Fatigue On: :16 Request T3, FREE (TRIDOTHYRONINE) (52854)Indication: Acquired hypothyroidism On: :16 Request T4, FREE (THYROXINE) (31477)Indication: Acquired hypothyroidism On: :16 Request TSH (28038)Indication: Acquired hypothyroidism On: 44-Gdb-343328:16 Request LIPID PANEL (70963)Indication: Other hyperlipidemia On: 57-Fdc-451546:15 Request T3, FREE (TRIDOTHYRONINE) ([id number])Indication: Acquired hypothyroidism On: 21-Feb-2012 Request T4, FREE (THYROXINE) (88398)Indication: Acquired hypothyroidism On: 21-Feb-2012 Request TSH ([id number])Indication: Acquired hypothyroidism On: 21-Feb-2012 Request Metabolic Panel, Basic (99736)Indication: Fatigue On: 55-Wew-053032:58 Request Anti-TPO Antibody (67756)Indication: Acquired hypothyroidism On: 58-Hqq-047758:56 Request T3, FREE (TRIDOTHYRONINE) ([id number])Indication: Acquired hypothyroidism On: 01-Iox-929588:56 Request T4, FREE (THYROXINE) (21472)Indication: Acquired hypothyroidism On: 73-Ybn-279930:56 Request TSH ([id number])Indication: Acquired hypothyroidism On: 05-Vgx-043147:49 Request VITAMIN B-12 (CYANOCOBALAMIN) ([id number])Indication: Macrocytosis without anemia On: 71-Blm-915172:49 Request TSH ([id number])Indication: Palpitations On: 40-Tjo-81504:48 Request METABOLIC PANEL, COMPREHENSIVE (11052)Indication: Syncope On: :48 Request CBC WITH MANUAL DIFF (06505)Indication: Syncope On: :48 Request D-Dimer ([id number])Indication: Syncope On: :48 Request Comments: stat CBC WITH MANUAL DIFF ([id number])Indication: inflammatory arthritis- following with valenke On: 65-Pvc-746350:03 Request METABOLIC PANEL, COMPREHENSIVE ([id number])Indication: inflammatory arthritis- following with valenke On: 22-Iiw-193312:03 Request LIPID PANEL (06600)Indication: Other hyperlipidemia On: 99-Yxc-112454:03 Request TSH ([id number])Indication: Acquired hypothyroidism On: :56 Request TSH ([id number])Indication: Acquired hypothyroidism On: :08 Request Comments: to be done in 8 weeks. METABOLIC PANEL, COMPREHENSIVE ([id number])Indication: Dysphagia, unspecified dysphagia On: 96-Tuc-201928:52 Request LIPID PANEL ([id number])Indication: Other hyperlipidemia On: 62-Yuk-647710:52 Request TSH ([id number])Indication: Acquired hypothyroidism On: 50-Eky-675643:52 Request TSH ([id number])Indication: Acquired hypothyroidism On: 28-Pcx-863358:15 Request CULTURE, SPUTUM ([id number])Indication: Cough On: 4-Fas-282279:52 Request Throat Culture ([id number])Indication: Unspecified bacterial pneumonia On: 26-Hox-549841:00 Request Comments: swab tounge per order from Dr. Brown ARELY CULTURE-OTHER ([id number])Indication: Unspecified bacterial pneumonia On: 17-Zbg-960011:43 Request EBV Panel ([id number])Indication: Fatigue On: 09-Iil-812214:41 Request METABOLIC PANEL, COMPREHENSIVE ([id number])Indication: Fatigue On: :41 Request CBC WITH MANUAL DIFF ([id number])Indication: Fatigue On: :41 Request ARELY CULTURE-OTHER ([id number])Indication: Pharyngitis, acute On: :24 Request Rapid Strep Test, Office (78607)Indication: Pharyngitis, acute On: 27-Rgu-158482:24 Request CBC WITH MANUAL DIFF ([id number])Indication: Anxiety On: :13 Request METABOLIC PANEL, COMPREHENSIVE ([id number])Indication: Other hyperlipidemia On: :13 Request T4, FREE (THYROXINE) ([id number])Indication: Acquired hypothyroidism On: :12 Request T3, FREE (TRIDOTHYRONINE) ([id number])Indication: Acquired hypothyroidism On: :12 Request TSH ([id number])Indication: Acquired hypothyroidism On: :12 Request LIPID PANEL ([id number])Indication: Other hyperlipidemia On: :11 Request URINE ARELY CULTURE-SPRING COL COUNT ([id number])Indication: Urinary frequency On: :21 Request METABOLIC PANEL, COMPREHENSIVE ([id number])Indication: Gastroesophageal reflux disease without esophagitis On: :19 Request CBC WITH MANUAL DIFF ([id number])Indication: Gastroesophageal reflux disease without esophagitis On: :19 Request HELICOBACTER PYLORI ANTIBODY PROFILE IgG, IgM, IgA (82776)Indication: Gastroesophageal reflux disease without esophagitis On: :13 Request CBC WITH MANUAL DIFF ([id number])Indication: Preoperative examination On: :42 Request METABOLIC PANEL, COMPREHENSIVE (52956)Indication: Preoperative examination On: :42 Request PTT (Activated Partial Thromboplastin Time) ([id number])Indication: Preoperative examination On: :42 Request PT (Prothrobim Time) (35347)Indication: Preoperative examination On: :42 Request URINALYSIS, W/ MICRO (49710)Indication: Preoperative examination On: :41 Request TSH ([id number])Indication: Acquired hypothyroidism On: :41 Request LIPID PANEL (57497)Indication: Other hyperlipidemia On: :41 Request ARELY CULTURE-OTHER ([id number])Indication: Pharyngitis, acute On: 9-Klh-036184:30 Request ARELY CULTURE-OTHER ([id number])Indication: Pharyngitis, acute On: 8-Zue-864721:14 Request Thin prep Pap ([id number])Indication: Well woman exam On: 86-Eek-09574:47 Request Thin prep Pap (53893)Indication: Well woman exam On: 4-Vwq-102976:09 Request Vitamin D Hydroxy (35496)Indication: Osteopenia On: :24 Request CBC WITH MANUAL DIFF ([id number])Indication: 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 On: :24 Request METABOLIC PANEL, COMPREHENSIVE (54568)Indication: 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 On: :24 Request LIPID PANEL ([id number])Indication: Other hyperlipidemia On: :24 Request TSH ([id number])Indication: Acquired hypothyroidism On: :23 Request Creatine Kinase Total (13025)Indication: Arthritis On: : Request METABOLIC PANEL, COMPREHENSIVE (65027)Indication: Arthritis On: : Request CCP ANTIBODY (22705)Indication: Arthritis On: : Request SED RATE ERYTHROCYTE ([id number])Indication: Arthritis On: :05 Request C-REACTIVE PROTEIN ([id number])Indication: Arthritis On: :05 Request JACQUI (ANTINUCLEAR ANTIBODY) (40744)Indication: Arthritis On: :05 Request RHEUMATOID FACTOR-QUANT (95110)Indication: Arthritis On: :05 Request TSH ([id number])Indication: Acquired hypothyroidism On: : Request HEPATIC FUNCTION PANEL (04802)Indication: Other hyperlipidemia On: : Request LIPID PANEL (44331)Indication: Other hyperlipidemia On: :06 Request Vitamin D Hydroxy (84167)Indication: Osteopenia On: :27 Request LIPID PANEL (85070)Indication: Other hyperlipidemia On: :22 Request HEPATIC FUNCTION PANEL (47173)Indication: Other hyperlipidemia On: 5-Obl-542818:21 Request URINE ARELY CULTURE (SPRING COL COUNT) (54173)Indication: Abnormal urine On: :19 Request TSH ([id number])Indication: Acquired hypothyroidism On: 9-Abv-512209:18 Request URINALYSIS, W/ MICRO (50510)Indication: Low back pain On: :50 Request T3, FREE (TRIDOTHYRONINE) ([id number])Indication: Acquired hypothyroidism On: :50 Request T4, FREE (THYROXINE) ([id number])Indication: Acquired hypothyroidism On: :50 Request CBC WITH MANUAL DIFF ([id number])Indication: Low back pain On: :49 Request METABOLIC PANEL, COMPREHENSIVE (98816)Indication: Family history of diabetes mellitus On: :49 Request LIPID PANEL (03144)Indication: Other hyperlipidemia On: :47 Request TSH ([id number])Indication: Acquired hypothyroidism On: :47 Request Planned Encounters Medical; [facility] Pre Operative Physcial - surgery On: 20-Mar-2018 13:30 [facility] Fast DO, Martha A Fast DO, Martha A Planned Procedures CT - Abdomen & Pelvis Stone On: 08-Jan-2018 Intent ProtocolBy: Fast DO, Martha A Fast Comments: stat call wet read DO, Martha A INJECTION, PROLIA ([id number])By: Fast On: 05-Dec-2017 Intent DO, Martha A Fast DO, Martha A Comments: [id number] arm, SCprefilled syringeMLONG ELECTROCARDIOGRAM, COMPLETE (ECG) On: 05-Dec-2017 Intent ([id number])By: Fast DO Martha A Fast Comments: ekg showed normal sinus rhythym, normal axis, no acute st/t wave changes sinus ariana DO, Martha A MRI OF BRAIN WITH AND WITHOUT On: 01-Nov-2017 Intent CONTRAST ([id number])By: Kevin DO Martha Comments: dont schedule on or A Fast DO, Martha A Flu Vaccine (Quadrivalent) 72975Xb: On: 01-Nov-2017 Intent Fast DO, Martha A Fast DO, Martha A Comments: Lot: [id number]: 08/26/18Site: L dltd, IMDose prefilled syringegiven by: Kahlil reviewed and ABN signed Radiology - Forearm - RightBy: Kevin On: 28-Jun-2017 Intent DO, Martha A Fast DO, Martha A DEXA SCAN AXIAL SKELETON ([id number])By: On: 28-Jun-2017 Intent Fast DO, Martha A Fast DO, Martha A Comments: august SCREENING DIGITAL TOMOSYNTHESIS OF On: 28-Jun-2017 Intent BREAST ([id number])By: Fast DO, Martha A Comments: august Fast DO, Martha A Radiology - Wrist - RightBy: Fast On: 28-Jun-2017 Intent DO, Martha A Fast DO, Martha A Comments: fall with outstrestched hand CT - Brain/Head (Without On: 28-Jun-2017 Intent Contrast)By: Fast DO, Martha A Kevin Comments: stat- fall down steps now headache DO, Martha A INJECTION, PROLIA ([id number])By: Kevin On: 18-May-2017 Intent DO, Martha A Fast DO, Martha A Comments: prolia injection 1 prefilled syringelot: [id number]: 05/2019RA sub-qAD MANAGER FUND CHEST XRAY, PA & LATERAL ([id number])By: On: 01-May-2017 Intent Fast DO, Martha A Fast DO, Martha A INFUSION, NORMAL SALINE SOLUTION , On: 21-Apr-2017 Intent 1000 CC (Special Coverage Comments: 2nd bag same lot same exp Instructions Apply. See MCM: 2048) ([id number])By: Fast DO, Martha A Fast DO, Martha A INFUSION, NORMAL SALINE SOLUTION , On: 21-Apr-2017 Intent 1000 CC (Special Coverage Comments: Site:[address] [place] [address] Number of attemps:1Tolerated:wellLot/exp of NS [id number] 08/15Medication?: ACOSTA Romero Instructions Apply. See MCM: 2048) ([id number])By: Fast DO, Martha A Fast DO, Martha A CHEST XRAY, PA & LATERAL ([id number])By: On: 21-Apr-2017 Intent Fast DO, Martha A Fast DO, Martha A Comments: 3 weeks Ultrasound - ThyroidBy: Fast DO, On: 07-Mar-2017 Intent Martha A Fast DO, Martha A PNEUM VAC ADLT/IMUMNOSPR, SBC/INTRM On: 20-Dec-2016 Intent ([id number])By: Fast , Martha A Fast Comments: pnuemovax prefilled syringe injectionlot: [id number]: 04/2018L DELT IMpt tolerated wellAD MANAGER FUND DO, Martha A Flu Vaccine (Quadrivalent) 04910Wa: On: 30-Nov-2016 Intent Fast DO, Martha A Fast DO, Martha A Comments: lot: [id number]: 08/14/17ite/route: L michael, IMamt: 0.5mlVIS and ABN signed when applicableChelsea, MEDICINE ASSISTANT ELECTROCARDIOGRAM, COMPLETE (ECG) On: 29-Nov-2016 Intent ([id number])By: Kevin DO, Martha A Kevin Comments: ekg showed normal sinus rhythym, normal axis, no acute st/t wave changes DO, Martha A INJECTION, PROLIA ([id number])By: Kevin On: 04-Nov-2016 Intent DO, Martha A Fast DO, Martha A Comments: Lot:[id number]:08/14/17Dose:0.5mLRoute:IMSite:L DltdGiven By:ZACH signed Nuclear Stress Test/Stress On: 01-Sep-2016 Intent SPECT/TreadmillBy: Fast DO, Martha A Fast DO, Martha A Aerosol Treatment (81657)By: Kevin On: 08-Aug-2016 Intent DO, Martha A Fast DO, Martha A SCREENING DIGITAL TOMOSYNTHESIS OF On: 08-Aug-2016 Intent BREAST ([id number])By: Fast DO Martha A Comments: end july Fast DO, [...] - ThyroidBy: Fast DO, On: 24-May-2016 Intent Martah A Fast DO, Martha A Comments: end [...] Martha A Fast DO, Martha A Comments: Lot:[id number]:02/13Dose:60mLRoute:sub qSite: l armGiven By:ZACH signed MRI OF BRAIN WITH AND WITHOUT On: 08-Feb-2016 Intent CONTRAST ([id number])By: Martha Brown DO Comments: try to get this week- A Fast DO, Martha A Solu- Medrol Injection, 125mg On: 16-Dec-2015 Intent ([id number])By: Martha Brown DO A Kevin Comments: Lot:[id number]:04/2018Dose:125mgRoute:imSite:r hipGiven By:ZACH signed DO, Martha A Aerosol Treatment (08745)By: Kevin On: 16-Dec-2015 Intent DO, Martha A Fast DO, Martha A Flu Vaccine (Quadrivalent) 55164Rl: On: 30-Nov-2015 Intent Fast DO, Martha A Fast DO, Martha A Comments: Lot:[id number]:08/26/16Dose:0.5mLRoute:IMSite:L DltdGiven By:ZACH signed MRI LUMBAR SPINE W/O CONTRAST On: 01-Sep-2015 Intent ([id number])By: Fran Brown DOa A Kevin Comments: hx of spine surgery- has done pt and pain management and nsaids- getting weak ehl right DO, Martha A DEXA SCAN AXIAL SKELETON ([id number])By: On: 06-Jul-2015 Intent Fast DO, Martha A Fast DO, Martha A MAMMOGRAM, SCREENING, BOTH BREAST On: 06-Jul-2015 Intent ([id number])By: Kevin SAMUEL, Martha A Fast DO, Martha A Rocephon Injection, 1 Gm On: 06-Mar-2015 Intent ([id number])By: Kevin SAMUEL Martha A Kevin Comments: lot: [id number]: 3/1/18site/route: RGM/IMamt: 1GVIS signed when applicableMILLIE Crespo DO, Martha A Radiology - ChestBy: Nicole KAYE, On: 09-Feb-2015 Intent Abby Clemente Flu Vaccine (Quadrivalent) 38949Vv: On: 10-Dec-2014 Intent Kevin SAMUEL, Martha A Kevin DO, Martha A Comments: Lot #:[id number] date: 07/2015Amount given:prefilled syringeSite given:L Dltd, IMGiven by: WINNIE Hart and ABN signed ADMINISTRATION OF INFLUENZA VIRUS On: 10-Dec-2014 Intent VACCINE ([id number])By: Fran Brown DOa A Kevin SAMUEL, Martha A BILATERAL MAMMOGRAMS (85354)By: On: 17-Jun-2014 Intent Kevin SAMUEL, Martha A Kevin DO, Martha A Comments: screening FLU VAC, SPLIT, >3 YEARS, INTRAMUSC On: 02-Dec-2013 Intent ([id number])By: Martha Brown DO Comments: Lot #:[id number] date:10/2015Amount given:0.5mlRoute: IMSite given: left deltoidGiven by: GARETT Washington DO, Debra A IMMUNIZ ADMNIN, 1 VAC, SNGL/COMBO On: 02-Dec-2013 Intent ([id number])By: Visit, Nurse CT OF RIGHT HIP WITH CONTRAST On: 30-Sep-2013 Intent ([id number])By: Martha Brown DO Comments: with or without contrast DO Martha A REMOVAL OF SUTURE BY A PROVIDER On: 30-Sep-2013 Intent OTHER THAN PROVIDER WHO ORIGINALLY Comments: rozina in head, 2 removed, pt tolerated PLACED SUTURE ([id number])By: Visit, Nurse Radiology - PelvisBy: Kevin SAMUEL, On: 25-Sep-2013 Intent Martha A Kevin DO, Martha A Radiology - Hip - RightBy: Kevin DO, On: 25-Sep-2013 Intent Martharita Brown DO, Martha A Comments: stat call results Radiology - Thoracic SpineBy: Fast On: 25-Sep-2013 Intent , Martha A Fast DO, Martha A Radiology - Forearm - RightBy: Fast On: 25-Sep-2013 Intent DO, Martha A Fast DO, Martha A Pulse Oximetry ([id number])By: Kevin SAMUEL On: 14-May-2013 Intent Martha A Fast DO, Martha A Comments: 98 Spirometry (83288)By: Kevin SAMUEL, On: 14-May-2013 Intent Martha A [...] SPLIT, >3 YEARS, INTRAMUSC On: 28-Jan-2013 Intent (50354)By: Kevin SAMUEL Martha A Fast Comments: Lot #:[id number] date:mount given:0.5mlRoute: IMSite given: L dltdVIS and ABN signedGiven by: GARETT Washington DO, Martha A IMMUNIZ ADMNIN, 1 VAC, SNGL/COMBO On: 28-Jan-2013 Intent ([id number])By: Kevin DO, Martha A Fast DO, Martha [...] & Pelvis Stone On: 12-Sep-2012 Intent ProtocolBy: Kevin DO, Martha A Fast DO, Martha A Spirometry (41731)By: Kevin SAMUEL, On: 28-May-2012 Intent Martha A Fast DO, Martha A Comments: good effort and curve mild obst Pulse Oximetry (45585)By: Fast DO, On: 28-May-2012 Intent Martha A [...] SPLIT, >3 YEARS, INTRAMUSC On: 09-Dec-2011 Intent ([id number])By: Patito Tineo Comments: Lot #[id number]-0/30/13Site-left deltoidgiven by: Angela Vincent, MANAGER FUND IMMUNIZ ADMNIN, 1 VAC, SNGL/COMBO On: 09-Dec-2011 Intent (32611)By: Patito Tineo Nuclear Stress Test/Stress On: 22-Nov-2011 [...] A Comments: with 12mm tablet Pulse Oximetry (54251)By: Fast DO, On: 28-Jun-2011 Intent Martha A Fast DO, Martha A Comments: 98 Radiology - Chest- PA and LatBy: On: 28-Jun-2011 Intent Fast DO, Martha A Fast DO, Martha A Comments: stat call wet read Spirometry (27588)By: Fast DO, On: 28-Jun-2011 Intent Martha A Fast DO, Martha A Comments: good effort and curve normal Radiology - ChestBy: Fast DO, Martha On: 07-Jun-2011 Intent A Fast DO, Martha A Comments: PA/LAT (do in 1 month) Eprescribed prescriptions On: 07-Jun-2011 Intent ([id number])By: Fast DO, Martha A Fast DO, Martha A Pulse Oximetry (28870)By: Fast DO, On: 07-Jun-2011 Intent Martha A Fast DO, Martha A Comments: 95 Radiology - Chest- PA and LatBy: On: 07-Jun-2011 Intent Fast DO, Martha A Fast DO, Martha A Comments: call wet read MAMMOGRAM, SCREENING, BOTH BREASTS On: 20-May-2011 Intent ([id number])By: Fast DO, Martha A Fast DO, Martha A Ultrasound - ThyroidBy: Fast DO, On: 27-Apr-2011 Intent Martha A Fast DO, Martha A TDAP VACCINE >7 IM ([id number])By: On: 27-Apr-2011 Intent Patito Tineo Comments: 2008 FLU VAC, SPLIT, >3 YEARS, INTRAMUSC On: 21-Dec-2010 Intent (44006)By: Patito Tineo Comments: Lot #:[id number] date:mount given:0.5mlRoute: IMSite given:left deltGiven by: GARETT Washington IMMUNIZ ADMNIN, 1 VAC, SNGL/COMBO On: 21-Dec-2010 Intent ([id number])By: Patito Tineo EKG (81795)By: Melissa SLOAN, Cynthia On: 27-Oct-2010 Intent Comments: [...] BONE DENSITY, AXIAL SKELETON On: 04-May-2010 Intent ([id number])By: Patito Tineo MAMMOGRAM, SCREENING, BOTH BREASTS On: 04-May-2010 Intent ([id number])By: Patito Tineo Clinical Breast Examination On: 04-May-2010 Intent (G0101)By: Patito Tineo Nuclear Medicine - Bone ScanBy: On: 02-Apr-2010 Intent Fast DO, Martha A Fast DO, Martha A Comments: full body- has neck pain and arthralgias and abnormal sacroiliac joint on xray-w ith focal sclerosis MAMMOGRAM, SCREENING, BOTH BREASTS On: 02-Apr-2010 Intent ([id number])By: Fast DO, Martha A Fast Comments: due end of may DO, Martha A Ultrasound - ThyroidBy: Noman, On: 23-Dec-2009 Intent Patito IMMUNIZ ADMNIN, 1 VAC, SNGL/COMBO On: 23-Dec-2009 Intent (67704)By: Fast DO, Martha A Fast Comments: lot # [id number] 4Pexp- 05/20106863iuqy-COVKhhyfw-NUaakv- 0.5ML tolerated well CHenjenniferon MANAGER FUND DO, Martha A FLU VAC, SPLIT, >3 YEARS, INTRAMUSC On: 23-Dec-2009 Intent (81335)By: Fast DO, Martha A Fast DO, Martha A Spirometry (22421)By: Kevin SAMUEL, On: 26-Aug-2009 Intent Martha A Fast DO, Martha A Comments: good effort and curve normal Pulse Oximetry (32308)By: Fast DO, On: 26-Aug-2009 Intent Martha A Fast DO, Martha A Comments: 99 Radiology - Chest- PA and LatBy: On: 26-Aug-2009 Intent Fast DO, Martha A Fast DO, Martha A EKG (49018)By: Fast DO, Martha A On: 02-Jul-2009 Intent [...] Other hyperlipidemia : DISCONTINUED - LIPID PANEL (52522) Indication: Other hyperlipidemia BMI between 19-24,adult : [...] End: 07-Mar-2018 14:44 nts (came in over [place] when Dr brown was out for a [...] years 2015 - due 2018), screening, mammography (2018), screening, Pap smear (hysterectomy) and screening, visual acuity (Dr. Carranza 2018 - goes back in january (maybe december)). [...] week test of monitoring for seizure from [place] and test never got done- last week [...] is good- she not go back to [facility] as she wants to wait until gets [...] urolgoist oct 26- - [facility] - they think white matter partly migrainous- they looked at her mris - they going to send to [facility] worker coordinator as well- the valium reallyhelping her sleep [...] to treat her until see neuro at [facility]- specialist to help determine- he increased her [...] has been compliant with instructions. Current medication us End: 08-Feb-2016 19:01 e: no side effects [...] daily stress with [facility] health issues [facility] - Encounter Diagnosis: Chronic [...] visual acuity (yearly). [facility] exam[facility]- she is seeing Dr Wilburn on for her back and gettig thoracic mri and sa w painmanagement stillnot comfortable- tried fosamax in past gaver her terrible side effects gi upset , [ADDITIONAL REASON] Follow up, Laboratory Test Results - Date: (08[facility]2015[facility] Encounter Diagnosis: BMI between 19-24,adult, [...] been pretty good- she seeing new nicolasa georges nd has said has sluggish adrenal but [...] Note for Hip problem: Pt was in [place] last week and slipped on wet ceramic [...] and thyroid levels - just changedc again-s chris georges and following multiple issues and saw [place]is [...] - she saw neurologist dr howard in [place]- he did tilt table table test and [...] no new complaints- seeing pain management at [facility] has good energy level and is sleepin [...] back in 2005- same surgeon- doing at [place]- she saw Noni who told ehr to [...] she saw danni and had basalcell by mohbradly taken off face- - and had whole [...] able to do more- and is joining [employer] to keep doing the exercises -- bp [...] Dr Gonzalez-- this person now moving to [place]- mentally the aquatherapy is helpi ng- physically [...] Hip bursitis 726.[address] [facility] [address] [facility] CampusT[facility] LAW; a guarantor
--- OUTSIDE RECORDS SUMMARY | 2018-05-23 11:17 | XMS RPT_ITS | Continuity of Care Document ---
:1960 Author Organization [facility] Address [address] [facility] [address] [place] [address] Phone Care Team Providers Name Role Phone Martha Brown DO Unavailable Brinda IRVIN, Dr. Padilla Jones Unavailable Jitendra Cook MD Unavailable Alan Torres MD Unavailable Eusebio Braswell Unavailable Dr. Carlito Zamora DO Unavailable Aristides Daily Unavailable Unavailable Carlitos IRVIN, Dr. Matt Munguia Unavailable Shahla Myers MD Unavailable [facility], [facility] Unavailable Niru Taylor Unavailable Trudi Villafana [...] Quantity: 30 {Tablet} Refills: 0 Ordered:09-May-2016 Kevin SAMUELMatrha DO, Debra A Start : 09-May-2016 End [...] : 24-May-2016 End : 01-Sep-2016 Inactive NYSTATIN, [id number]/ML (Mouth/Throat Suspension) 1 Suspension 5 cc 5 [...] hour before bed- failed omeprazole and pepcid Holland 3 1200 MG Oral Capsule 2 qd [...] WITH Contrast Result: Comments: See Note; NOTES: [facility] Imaging Services [address] [place] [address] Abdomen/Pelvis WITH Contrast MR#: [id number] Acct: [id number] Name: TITA LAW Rep #: [id number] : 1960 F 57 From: Barrera Galeana MD PCP: Martha Brown DO Status: REG CLI Study: Abdomen/Pelvis WITH Contrast Date of Exam: 02/14/18 Exam# [id number] Ordering Dr: Chikis Ashley STUDY: CT ABDOMEN [...] Barrera Galeana MD at 10:47 EST Tel [phone], Service support , CC: Martha Brown DO; Chikis Ashley MD Structural Metal Worker: Signed 08-Jan-2018 Abdomen/Pelvis without Cont Result: Comments: See Note; NOTES: [facility] Imaging Services [address] [place] [address] Abdomen/Pelvis without Cont MR#: [id number] Acct: [id number] Name: TITA LAW Rep #: [id number] : 1960 F 57 From: Barrera Galeana MD PCP: Martha Brown DO Status: REG CLI Study: Abdomen/Pelvis without Cont Date of Exam: 01/08/18 Exam# [id number] Ordering Dr: Martha Brown DO S TUDY: [...] Barrera Galeana MD at 13:09 EST Tel [phone], Service support , CC: Martha Brown DO Structural Metal Worker: Signed 30-Dec-2017 Urgent Care Visit Report Result: Comments: See Note; NOTES: [facility] [address] [place] [address] OFFICE VISIT Date of Service: 12/30/17 MR#: [id number] Acct: [id number] Name: TITA LAW Rep #: [id number] : 1960 Provider: APPLE Casiano Age/Sex: 57/F Location: [facility] Status: Signed Intake Vital [...] person, oriented to place, oriented to time HENAK Head: normocephalic Ears: external ears normal, TM's [...] W/WO Contrast Result: Comments: See Note; NOTES: [facility] Imaging Services [address] [place] [address] Brain W/WO Contrast MR#: [id number] Acct: [id number] Name: TITA LAW Rep #: [id number] : 1960 F 57 From: Pedro Luis Akhtar MD PCP: Martha Brown DO Status: [facility] CLI Study: Brain W/WO Contrast Date of Exam: 11/06/17 Exam# [id number] Ordering Dr: Martha Brown DO STUDY: MRI [...] Service support , CC: Martha Brown DO Structural Metal Worker: Signed 31-Aug-2017 SCREENING MAMM (CAD), BILAT Result: Comments: See Note; NOTES: [facility] Imaging Services [address] [place] [address] SCREENING MAMM (CAD), BILAT MR#: [id number] Acct: [id number] Name: ANITITA Rita Rep #: [id number] : 1960 F 57 From: Barrera Galeana MD PCP: Martha Brown DO Status: [facility] Study: SCREENING MAMM (CAD), BILAT Date of Exam: 08/31/17 Exam# [id number] Ordering Dr: Martha Brown DO MAMMOGRAPHY - [...] biopsy of a clini griselda suspicious abnormality. [id number] Electronically Signed: Barrera Galeana MD at 14:24 EDT Tel [phone], Service support , CC: Martha Brown DO Structural Metal Worker: Signed 31-Aug-2017 Dexa Bone Density Study Result: Comments: See Note; NOTES: [facility] Imaging Services [address] [place] [address] Dexa Bone Density Study MR#: [id number] Acct: [id number] Name: TITA LAW Rep #: [id number] : 1960 F 57 From: Barrera Galeana MD PCP: Martha Brown DO Status: REG CLI Study: Dexa Bone Density Study Date of Exam: 08/31/17 Exam# [id number] Ordering Dr: Martha Brown DO STUDY: D [...] Barrera Galeana MD at 15:16 EDT Tel [phone], Service support , CC: Martha Brown DO Structural Metal Worker: Signed 27-Jul-2017 PT D/C Summary (1) Result: Comments: See Note; NOTES: [facility] Physical Therapy [facility] [address] [place] [address]. [address] [place] [address] Fax REHABILITATION SERVICES [facility] SUMMARY MR#: [id number] Acct: [id number] Name: TITA LAW Rep #: [id number] : 1960 57 From: Alan Miller PT, Cert. T, OCS Referring DrIfeanyi: Maddie MCRAE Prebish Status: REG RCR Insu zafar: [facility] SELF PAY INSURANCE HP - PT [...] please feel free to call me at [phone]. Thank you for the referral of this patient. Sincerely, Alan Miller PT, <Electronically signed by Alan yuan PT, Cert. T, [facility]> 07/27/17 1739 CC: Maddie MCRAE Prebish; Martha Brown DO JLA Signed 28-Jun-2017 Forearm 2 Views Result: Comments: See Note; NOTES: [facility] Imaging Services [address] [place] [address] Forearm 2 Views MR#: [id number] Acct: [id number] Name: TITA LAW Rep #: [id number] : 1960 F 56 From: Jam Thomas MD PCP: Martha Brown DO Status: REG CLI Study: Forearm 2 Views Date of Exam: 06/28/17 Exam# [id number] Ordering Dr: Martha Brown DO STUDY: X-RAY [...] Service support , CC: Martha Brown DO Structural Metal Worker: Signed 28-Jun-2017 Wrist min 3 Views Result: Comments: See Note; NOTES: [facility] Imaging Services [address] [place] [address] Wrist min 3 Views MR#: [id number] Acct: [id number] Name: TITA LAW Rep #: [id number] : 1960 F 56 From: Jam Thomas MD PCP: Martha Brown DO Status: REG CLI Study: Wrist min 3 Views Date of Exam: 06/28/17 Exam# [id number] Ordering Dr: Martha Brown DO STUDY: X-RAY [...] Service support , CC: Martha Brown DO Structural Metal Worker: Signed 28-Jun-2017 Brain/Head without Contrast Result: Comments: See Note; NOTES: [facility] Imaging Services [address] [place] [address] Brain/Head without Contrast MR#: [id number] Acct: [id number] Name: TITA LAW Rep #: [id number] : 1960 F 56 From: Krzysztof Rivera MD PCP: Martha Brown DO Status: REG CLI Study: Brain/Head without Contrast Date of Exam: 06/28/17 Exam# [id number] Ordering Dr: Martha Brown DO STUDY : [...] Service support , CC: Martha Brown DO Structural Metal Worker: Signed 01-May-2017 Chest PA and Lateral Result: Comments: See Note; NOTES: [facility] Imaging Services [address] [address] Chest PA and Lateral MR#: [id number] Acct: [id number] Name: TITA LAW Rep #: [id number] : 1960 F 56 From: Murray Palma MD PCP: Martha Brown DO Status: REG CLI Study: Chest PA and Lateral Date of Exam: 05/01/17 Exam# [id number] Ordering Dr: Martha Brown DO STUDY: X-RAY [...] MD at 17:05 EST , Service support [phone], CC: Martha Brown DO Structural Metal Worker: Signed 15-Apr-2017 Discharge Instruction Result: Comments: See Note; NOTES: [facility] Medical Records Department [address] [place] [address] Discharge Instruction 04/15/171812 MR#: [id number] Acct: [id number] Name: TITA MONTOYA Rep #: [id number] : 1960 56 From: Dusty Dumont MD PCP: Martha Brown DO Status: REG ER ED Disposition - Plan for ED Patient: Chief Complaint: Shortness of Breath Instructions: ED Pn [facility] Adult Prescriptions: Levofloxacin [Levaquin] 500 mg PO DAILY #7 tab Referrals: Martha Brown DO [Primary Care Provider] - What to do if you have Problems For any increased pain, shortness of b reath, bleeding, nausea or vomiting, chest pain, or any unexpected problems, contact your Primary Care Provider. Call [facility] ([phone]) or report to the closest Emergency Room. Call 911 if necessary. 04/15/171813 <Electronically signed by Dusty Dumont MD> Date Dusty Dumont MD Cosigner Signature (If Indicated): Da te CC: Martha Brown DO 15-Apr-2017 Emergency Department Summary Result: Comments: See Note; NOTES: [facility] Medical Records Department [address] [place] [address] Emergency Department Summary 04/15/171810 MR#: [id number] Acct: [id number] Name: ANI,TITA Rep #: [id number] : 1960 56 From: Dusty Dumont MD [...] acquired pneumonia This note was generated with PulpWorks software. It may contain incorrect words, spelling, [...] your Primary Care Provider. Call [facility] ([phone]) or report to the closest Emergency Room. Call 911 if necessary. 04/15/171812 <Electronically signed by Art Dumont MD> Date Dusty Dumont MD Cosigner Signature (If Indicated): Date CC: Martha Kevin SAMUEL 15-Apr-2017 Chest PA and Lateral Result: Comments: See Note; NOTES: [facility] Imaging Services [address] [place] [address] Chest PA and Lateral MR#: [id number] Acct: [id number] Name: TITA LAW Rep #: [id number] : 1960 F 56 From: Erasto Persuad MD PCP: Martha Brown DO Status: REG ER Study: Chest PA and Lateral Date of Exam: 04/15/17 Exam# [id number] Ordering Dr: Dusty Dumont MD STUDY: X-RAY [...] CC: Martha Brown DO; Dusty Dumont MD Structural Metal Worker: Signed 03-Apr-2017 Inital Evaluation (1) - PT Result: Comments: See Note; NOTES: [facility] Physical Therapy [facility] [address] [place] [address] Fax REHABILITATION SERVICES INITIAL EVALUATION MR#: [id number] Acct: [id number] Name: TITA LAW Rep #: [id number] : 1960 56 From: Alan Miller PT, Cert. MDT, OCS Referring Dr.: Maddie Munoz Status: REG RCR Insur ance: [facility] SELF PAY INSURANCE Patient's Visit Information TITA LAW is a 56 year old F referred to Physical Therapy by THOR Ridley CASHIER.LPREBI with a diagnosis of L-IVDD,L- STENOSIS,L-SPONDYLOPATHY,MYALGIA. Date [...] to be FAXED BACK to us at [phone] for Medicare purposes. Please let me know if there are questions or concerns regarding this plan of care. Physician Signature: Date: <Electronically signed by Alan Miller PT, Cert. PARRISH, RAMON> 04/03/17 1017 CC: Maddie Brown DO LISHA Signed For Medicare only, by signing this I certify the plan of care. Physicians Signature Date 08-Mar-2017 Thyroid Result: Comments: See Note; NOTES: [facility] Imaging Services [address] [place] [address] Thyroid MR#: [id number] Acct: [id number] Name: TITA LAW Rep #: [id number] : [birth year] F 56 From: Barrera Galeana MD PCP: Martha Brown DO Status: REG CLI Study: Thyroid Date of Exam: 03/08/17 Exam# [id number] Ordering Dr: Martha Brown DO STUDY: THYROID ULTRASOUND REASON FOR EXAM : Female, 56 years old. Thyroid nodule. TECHNIQUE: Ultrasound evaluation of the thyroid was performed with real-time and static mnacia-scale imaging. COMPARISON: Comparison is made with prior [...] Galeana MD at 14:4 9 EST Tel [phone], Service support , CC: Martha Brown DO Structural Metal Worker: Signed 06-Dec-2016 TXT - Blood Flow Screening Result: Comments: See Note; NOTES: [facility] Cardiovascular Services [address] [address] 12/06/16 0815 MR#: [id number] Acct: [id number] Name: TITA LAW Rep #: [id number] [...] Sharif e Dictated: 12/06/16814 Date Transcribed: 12/06/162139 Structural Metal Worker: Signed 13-Sep-2016 Stress Report Result: Comments: See Note; NOTES: [facility] Cardiovascular Services [address] [place] [address] Agnes 4d MR#: [id number] Acct: [id number] Name: TITA LAW Rep #: [id number] [...] patient was injected with 32.8 mCi of Family Preservation Caseworker 99m Cardiolite and subsequently stress SPECT Cardiolite [...] of 85%. This note was generated with Play4testation software. It may contain incorrect words, spelling, and punctuation that were not noted in checking the not e before signing. 09/13/162053 <Electronically signed by Gato Blair MD> Date Gato Blair MD CC: Martha Brown DO; Gato Blair MD Date Dictated: 09/13/162046 Date Transcribed: 09/13/162046 Structural Metal Worker: PM Signed 30-Aug-2016 Electroencephalogram Result: Comments: See Note; NOTES: [facility] Pulmonary Services/Neurology [address] [place] [address] MR#: [id number] Acct: [id number] Name: TITA LAW Rep #: [id number] : 1960 56 From: Jacinto Salazar MD [...] Date Dic tated: 08/29/161720 Date Transcribed: 08/29/161720 Structural Metal Worker: RSR Signed 29-Aug-2016 SCREENING MAMM (CAD), BILAT Result: Comments: See Note; NOTES: [facility] Imaging Services [address] [place] [address] Verdana 4d SCREENING MAMM (CAD), BILAT MR#: [id number] Acct: [id number] Name: GINNY LAW LLBHAKTI Rep #: [id number] : 1960 F 56 From: Krzysztof White MD PCP: Martha Brown DO Status: REG CLI Study: SCREENING MAMM (CAD), BILAT Date of Exam: 08/29/16 Exam# [id number] Ordering Dr: Martha Brown DO MAMMOGRAPHY - [...] delay biopsy of a clinically suspicious abnormality. [id number] Electronically Signed: Dread White MD at 8:46 EDT , Service support , CC: Martha Brown DO Structural Metal Worker: Signed 25-Aug-2016 Echocardiogram Complete Result: Comments: See Note; NOTES: [facility] Cardiovascular Services [address] [place] [address] Echo Complete 08/25/16 1207 MR#: [id number] Acct: [id number] Name: TITA LAW Rep #: [id number] : 1960 56 From: Conrado Nolasco MD [...] Date Dictated: 08/25/16 1207 Date Transcribed: 08/25/161317 Structural Metal Worker: Signed 09-Aug-2016 Chest PA and Lateral Result: Comments: See Note; NOTES: [facility] Imaging Services [address] [place] [address] [place] [address] Verdana 4d Chest PA and Lateral MR#: [id number] Acct: [id number] Name: TITA LAW Marnie p #: [id number] : 1960 F 56 From: Dustin Villatoro DO PCP: Martha Brown DO Status: REG CLI Study: Chest PA and Lateral Date of Exam: 08/09/16 Exam# [id number] Ordering Dr: Martha Brown DO STUDY: X-RAY [...] Dustin Villatoro DO at 22:20 EDT T [phone], Service support , CC: Martha Brown DO Structural Metal Worker: Signed 21-Jul-2016 Thyroid Result: Comments: See Note; NOTES: [facility] Imaging Services [address] [place] [address] Verdana 4d Thyroid MR#: [id number] Acct: [id number] Name: TITA LAW Rep #: [id number] : 1960 F 56 From: Quentin Inman DO PCP: Martha Brown DO Status: REG CLI Study: Thyroid Date of Exam: 07/21/16 Exam# [id number] Ordering Dr: Martha Brown DO STUDY: THYROID [...] Service support , CC: Martha Brown DO Structural Metal Worker: Signed 23-Jun-2016 Cerv Spine 4 or 5 Views Result: Comments: See Note; NOTES: [facility] Imaging Services [address] [place] [address] Verdana 4d Cerv Spine 4 or 5 Views MR#: [id number] Acct: [id number] Name: TITA LAW Rep #: [id number] : 1960 F 55 From: Hugo Pearce MD PCP: Martha Brown DO Status: REG CLI Study: Cerv Spine 4 or 5 Views Date of Exam: 06/23/16 Exam# [id number] Ordering Dr: Martha Brown DO STUDY: X-RAY [...] Service support , CC: Martha Brown DO Structural Metal Worker: Signed 23-Jun-2016 Cerv Spine 4 or 5 Views Result: Comments: See Note; NOTES: [facility] Imaging Services [address] [place] [address] Verda 4d Cerv Spine 4 or 5 Views MR#: [id number] Acct: [id number] Name: TITA LAW Rep #: [id number] : 1960 F 55 From: Hugo Pearce MD PCP: Martha Brown DO Status: REG CLI Study: Cerv Spine 4 or 5 Views Date of Exam: 06/23/16 Exam# [id number] Ordering Dr: Martha Brown DO ADDENDUM by [...] at 15:59 EDT Tel , Service support [phone], 06/28/16 1559 Date cc: Martha Brown DO [...] support , Fax CC: Martha Brown DO Structural Metal Worker: Signed 23-Jun-2016 Chest PA and Lateral Result: Comments: See Note; NOTES: [facility] Imaging Services [address] [place] [address] Verdana 4d Chest PA and Lateral MR#: [id number] Acct: [id number] Name: ANI,TITA Marnie p #: [id number] : 1960 F 55 From: Hugo Pearce MD PCP: Martha Brown DO Status: REG CLI Study: Chest PA and Lateral Date of Exam: 06/23/16 Exam# [id number] Ordering Dr: Martha Brown TUDY: X-RAY CHEST [...] Service support , CC: Martha Brown DO Structural Metal Worker: Signed 02-Jun-2016 Abdomen WITH IV Contrast Result: Comments: See Note; NOTES: [facility] Imaging Services [address] [place] [address] Verdana 4d Abdomen WITH IV Contrast MR#: [id number] Acct: [id number] Name: BESSY LAW Rep #: [id number] : 1960 F 55 From: Isela Wright MD PCP: Martha Brown DO Status: REG CLI Study: Abdomen WITH IV Contrast Date of Exam: 06/02/16 Exam# [id number] Ordering Dr: Martha Brown DO S TUDY: [...] MD at 7:28 EDT , Service support [phone], CC: Martha Brown DO Structural Metal Worker: Signed 02-Jun-2016 Abdomen WITH IV Contrast Result: Comments: See Note; NOTES: [facility] Imaging Services [address] [place] [address] Vernadaligia 4d Abdomen WITH IV Contrast MR#: [id number] Acct: [id number] Name: BESSY LAW Rep #: [id number] : 1960 F 55 From: Isela Wright MD PCP: Martha Brown DO Status: REG CLI Study: Abdomen WITH IV Contrast Date of Exam: 06/02/16 Exam# [id number] Ordering Dr: Martha Brown DO A DDENDUM [...] MD at 7:28 EDT , Service support [phone], Fax CC: Martha Brown DO Structural Metal Worker: Signed 19-May-2016 Hepatobilliary Img w/Pharm Int Result: Comments: See Note; NOTES: [facility] Imaging Services [address] [place] [address] Verdaisy 4d Hepatobilliary Img w/Pharm Int MR#: [id number] Acct: [id number] Name: TITA LAW Rep #: [id number] : 1960 F 55 From: Mario Olivo DO PCP: Martha Brown DO Status: REG CLI Study: Hepatobilliary Img w/Pharm Int Date of Exam: 05/19/16 Exam# [id number] Ordering Dr: Carrington Brown DO CLINICAL: 55-year-old [...] 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 (Yakelin kraft t al, Journal of Nuclear Medicine 32:1695, 1990). 2. There is scintigraphic evidence of post CCK duodenal-gastric reflux. (Roger england al, Nucl Med Janel Joan Press pg. 35, 1980). Electronically Signed : Mario Olivo DO at 22:51 EDT Tel , Service support [phone], CC: Martha Brown DO Structural Metal Worker: Signed 12-May-2016 Liver Result: Comments: See Note; NOTES: [facility] Imaging Services [address] [place] [address] Agnes 4d Liver MR#: [id number] Acct: [id number] Name: TITA LAW Rep #: [id number] : 1960 F 55 From: Barrera Galeana MD PCP: Martha Brown DO Status: REG CLI Study: Liver Date of Exam: 05/12/16 Exam# [id number] Ordering Dr: Martha Brown DO STUDY: ABDOMINAL [...] Barrera Galeana MD at 11:28 EDT Tel [phone], Service anthony pport [phone], CC: Martha Brown DO Structural Metal Worker: Signed 20-Apr-2016 NCS and/or EMG Patient Result: Comments: See Note; NOTES: [facility] Pulmonary Services/Neurology [address] [place] [address] NCS and/or EMG Patient MR#: [id number] Acct: [id number] Name: TITA LAW Rep #: [id number] : 1960 55 From: Pardeep Read MD [...] nerve. Pardeep Read MD T: NTS JOB: [id number] 04/20/16 1556 <Electronically signed by Pardeep Read MD> Date Pardeep Read MD CC: Martha Brown DO; Pardeep Read MD; Eusebio Braswell MD Date Dictated: 04/20/161106 Date Transcribed: 04/20/161106 Structural Metal Worker: Signed 15-Mar-2016 Fluoro Guided Lumbar Puncture Result: Comments: See Note; NOTES: [facility] Imaging Services [address] [place] [address] Verdana 4d Fluoro Guided Lumbar Puncture MR#: [id number] Acct: [id number] Name: Niecy LAW Rep #: [id number] : 1960 F 55 From: Barrera Galeana MD PCP: Martha Brown DO Status: REG CLI Study: Fluoro Guided Lumbar Puncture Date of Exam: 03/15/16 Exam# [id number] Ordering Dr: Pepper Benoit PROCEDURE: Fluoroscopic guided [...] procedure were explained to the patient. [facility] risks of bleeding, infection, and neurovascular [...] Barrera Galeana MD at 10:09 EST Tel [phone], Service support [phone], CC: Pepper Barr CASHIER; Martha Brown DO Structural Metal Worker: Signed 11-Mar-2016 Thyroid Result: Comments: See Note; NOTES: [facility] Imaging Services [address] [place] [address] Verdana 4d Thyroid MR#: [id number] Acct: [id number] Name: TITA LAW Rep #: [id number] : 1960 F 55 From: Barrera Galeana MD PCP: Martha Brown DO Status: REG CLI Study: Thyroid Date of Exam: 03/11/16 Exam# [id number] Ordering Dr: Martha Brown DO STUDY: THYROID [...] Barrera Galeana MD at 15:57 EST Tel [phone], Service support [phone], CC: Martha Brown DO Structural Metal Worker: Signed 10-Feb-2016 Brain W/WO Contrast Result: Comments: See Note; NOTES: [facility] Imaging Services [address] [place] [address] Verdana 4d Brain W/WO Contrast MR#: [id number] Acct: [id number] Name: TITA LAW Rep #: [id number] : 1960 F 55 From: Madeleine Villar MD PCP: Martha Brown DO Status: REG CLI Study: Brain W/WO Contrast Date of Exam: 02/10/16 Exam# [id number] Ordering Dr: Martha Brown DO STUDY: MRI [...] MD at 23:33 EST , Service support [phone], CC: Martha Brown DO Structural Metal Worker: Signed 25-Jan-2016 Cerv Spine 2 or 3 Views Result: Comments: See Note; NOTES: [facility] Imaging Services [facility] [place] [address] Verdana 4d Cerv Spine 2 or 3 Views MR#: [id number] Acct: [id number] Name: TITA LAW Rep #: [id number] : 1960 F 55 From: Julio Cesar Soto MD PCP: Martha Brown DO Status: REG CLI Study: Cerv Spine 2 or 3 Views Date of Exam: 01/25/16 Exam# [id number] Ordering Dr: Matt Wilburn STUDY : X-RAY [...] FACR at 16:52 EST , Service support [phone], CC: MATT WILBURN; Martha Brown DO Structural Metal Worker: Signed 25-Jan-2016 Spine Cervical (Routine) Result: Comments: See Note; NOTES: [facility] Imaging Services [address] [place] [address] Verdana 4d Spine Cervical (Routine) MR#: [id number] Acct: [id number] Name: BESSY LAW Rep #: [id number] : 1960 F 55 From: Julio Cesar Soto MD PCP: Martha Brown DO Status: REG CLI Study: Spine Cervical (Routine) Date of Exam: 01/25/16 Exam# [id number] Ordering Dr: Matt Wilburn MELODIE DY: MRI [...] FACR at 15:55 EST , Service support [phone], CC: MATT Brown DO Structural Metal Worker: Signed 31-Dec-2015 L/S Spine Bending Flex/Ext Result: Comments: See Note; NOTES: [facility] Imaging Services [address] [place] [address] Verdana 4d L/S Spine Bending Flex/Ext MR#: [id number] Acct: [id number] Name: GINNY LAW LLIS Rep #: [id number] : 1960 F 55 From: Barrera Galeana MD PCP: Martha Brown DO Status: REG CLI Study: L/S Spine Bending Flex/Ext Date of Exam: 12/31/15 Exam# [id number] Ordering Dr: Carrington Wilburn STUDY: X-RAY - [...] Galeana MD 4 at 11:17 EDT Tel [phone], Service support [phone], CC: MATT WILBURN; Martha Brown DO Structural Metal Worker: Signed 24-Dec-2015 Chest 1 View (Portable) Result: Comments: See Note; NOTES: [facility] Imaging Services [address] [place] [address] Verdana 4d Chest 1 View (Portable) MR#: [id number] Acct: [id number] Name: BESSY LAW Rep #: [id number] : 1960 F 55 From: Barrera Galeana MD PCP: Martha Brown DO Status: REG ER Study: Chest 1 View (Portable) Date of Exam: 12/24/15 Exam# [id number] Ordering Dr: Rashad Acosta MD STUDY: X-RAY [...] Barrera Galeana MD at 15:13 EDT Tel [phone], Service support [phone], CC: Matrha Brown DO; Rashad Acosta MD Structural Metal Worker: Signed 10-Oct-2015 Spine Lumbar without Contrast Result: Comments: See Note; NOTES: [facility] Imaging Services [address] [place] [address] Verdana 4d Spine Lumbar without Contrast MR#: [id number] Acct: [id number] Name: TITA LAW Rep #: [id number] : 1960 F 55 From: Quentin Inman DO PCP: Martha Brown DO Status: REG CLI Study: Spine Lumbar without Contrast Date of Exam: 10/10/15 Exam# [id number] Ordering Dr: Ruben Wilburn STUDY: CT LUMBAR [...] at 16:29 EDT Tel , Service support [phone], CC: MATT WILBURN; Martha Brown DO Structural Metal Worker: Signed 07-Oct-2015 Spine Thoracic (Routine) Result: Comments: See Note; NOTES: [facility] Imaging Services [address] [place] [address] Agnes 4d Spine Thoracic (Routine) MR#: [id number] Acct: [id number] Name: SARINA LAW IS Rep #: [id number] : 1960 F 55 From: Basil Culver MD PCP: Fast DO,Martha Status: REG CLI Study: Spine Thoracic (Routine) Date of Exam: 10/07/15 Exam# [id number] Ordering Dr: MANDEEP DILLON MD STUDY: MRI [...] at 16:32 EDT Tel , Service support [phone], CC: Martha Brown DO; MANDEEP DILLON MD Structural Metal Worker: Signed 29-Sep-2015 ELECTROCARDIOGRAM, COMPLETE (ECG) (78123) Comments: ekg showed normal sinus rhythym, normal axis, no acute st/t wave changes Result: [MEASUREMENTS ANALYSIS] Date of Test: 09/29/2015 10:02:56; Heart Rate: 70; ID Interval: 158; QRS: 90; QT Interval: 396; Corrected QT Interval (QTc): 413; P Wave Ona: 73; QRS Wave Ona: 71; T Wave Ona: 67; Blood Pressure: 110/70 [ECG DIAGNOSTIC STATEMENTS] Date of Test: 09/29/2015 10:02:56; Summary: Sinus Rhythm WITHIN NORMAL LIMITS 03-Sep-2015 Spine Lumbar (Routine) Result: Comments: See Note; NOTES: [facility] Imaging Services [address] [place] [address] Vernadaligia 4d Spine Lumbar (Routine) MR#: [id number] Acct: [id number] Name: TITA DUEÑAS Rep #: [id number] : 1960 F 55 From: Julio Cesar Soto MD PCP: Martha Brown DO Status: REG CLI Study: Spine Lumbar (Routine) Date of Exam: 09/03/15 Exam# [id number] Ordering Dr: Martha Brown DO STUDY: MRI [...] FACR at 11:54 EDT , Service support [phone], CC: Martha Brown DO Structural Metal Worker: Signed 27-Aug-2015 Bilat Scrn Digital AND CAD Result: Comments: See Note; NOTES: [facility] Imaging Services [address] [place] [address] Verdana 4d Bilat Scrn Digital AND CAD MR#: [id number] Acct: [id number] Name: TITA LAW Rep #: [id number] : 1960 F 55 From: Barrera Galeana MD PCP: Martha Brown DO Status: REG CLI Study: Bilat Scrn Digital AND CAD Date of Exam: 08/27/15 Exam# [id number] Ever rocha Dr: Martha Brown DO MAMMOGRAPHY [...] delay biopsy of a clinically suspicious abnormality. [id number] Electronically Signed: Barrera Galeana MD a t 8:51 EDT Tel [phone], Service support [phone], CC: Martha Brown DO Structural Metal Worker: Signed 27-Aug-2015 Dexa Bone Density Study (HP) Result: Comments: See Note; NOTES: [facility] Imaging Services [address] [place] [address] Agnes 4d Dexa Bone Density Study (HP) MR#: [id number] Acct: [id number] Name : TITA LAW Rep #: [id number] : 1960 F 55 From: Barrera Galeana MD PCP: Fast DO,Martha Status: REG CLI Study: Dexa Bone Density Study () Date of Exam: 08/27/15 Exam# [id number] Or bernardo Dr: Martha Brown DO STUDY: [...] Barrera Galeana MD at 14:42 EDT Tel [phone], Service support [phone], CC: Martha Brown DO Structural Metal Worker: Signed 27-Aug-2015 Hip 2-3 Views with Pelvis Result: Comments: See Note; NOTES: [facility] Imaging Services [address] [place] [address] Verda 4d Hip 2-3 Views with Pelvis MR#: [id number] Acct: [id number] Name: TITA AMBROCIO Rep #: [id number] : 1960 F 55 From: Murray Palma MD PCP: Martha Brown DO Status: REG CLI Study: Hip 2-3 Views with Pelvis Date of Exam: 08/27/15 Exam# [id number] Ordering Dr: Martha Johnson DO STUDY: X-RAY [...] MD at 16:31 EDT , Service support [phone], CC: Martha Brown DO Structural Metal Worker: Signed 09-Feb-2015 Chest PA and Lateral Result: Comments: See Note; NOTES: [facility] Imaging Services [address] [place] [address] Verdana 4d Chest PA and Lateral MR#: [id number] Acct: [id number] Name: TITA MCLEAN Rep #: [id number] : 1960 F 54 From: Barrera Galeana MD PCP: Martha Brown DO Status: REG CLI Study: Chest PA and Lateral Date of Exam: 02/09/15 Exam# [id number] Ordering Dr: Abby Rivera STUDY: X-RAY CHEST [...] Barrera Galeana MD at 15:21 EST Tel [phone], Service support [phone], RAD/Chest PA and Lateral IMPRESSION: Hyperinflation. No acute abnormality is seen. Electronically Signed: Barrera Galeana MD at 15:21 EST Tel [phone], Service support [phone], CC: Abby Rivera; Martha Brown DO Structural Metal Worker: Signed 30-Jun-2014 Bilat Scrn Digital AND CAD Result: Comments: See Note; NOTES: [facility] Imaging Services [address] [place] [address] Breast Imaging Report MR#: [id number] Acct: [id number] Name: TITA LAW Rep #: [id number] : 1960 F 53 From: Barrera Galeana MD PCP: Martha Brown DO Status: REG CLI Study: Bilat Scrn Digital AND CAD Date of Exam: 06/30/14 Exam# [id number] Ordering Dr: Martha Brown DO MAMMOGRAPHY - [...] Galeana MD at 9 :06 EDT Tel [phone], Service support [phone], CC: Martha Brown DO Structural Metal Worker: Signed 07-Oct-2013 Extremity Lower WITH Contrast Result: Comments: See Note; NOTES: [facility] Imaging Services [address] [place] [address] CAT Scan Report MR#: [id number] Acct: [id number] Name: TITA LAW Rep #: [id number] : 1960 F 53 From: Barrera Galeana MD PCP: Martha Brown DO Status: REG CLI Study: Extremity Lower WITH Contrast Date of Exam: 10/07/13 Exam# [id number] Ordering Dr: Martha Brown DO STUDY: CT [...] Barrera Galeana MD at 15:02 EDT Tel [phone], Service support , CC: Martha Brown DO Structural Metal Worker: Signed 25-Sep-2013 Forearm 2 Views Result: Comments: See Note; NOTES: [facility] Imaging Services [address] [place] [address] Radiology Report MR#: [id number] Acct: [id number] Name: TITA LAW Rep #: [id number] : 1960 F 53 From: Barrera Galeana MD PCP: Martha Brown DO Status: REG CLI Study: Forearm 2 Views Date of Exam: 09/25/13 Exam# [id number] Ordering Dr: Martha Brown DO STUDY: X-RAY [...] Barrera Galeana MD at 16:16 EDT Tel [phone], Service support [phone], RAD/Forearm 2 Views IMPRESSION: Normal x-ray examination of the radius and ulna. Electronically Signed: Barrera Galeana MD at 16:16 EDT Tel [phone], Service support [phone], CC: Martha Brown DO Structural Metal Worker: Signed 25-Sep-2013 Hip min 2 Views Result: Comments: See Note; NOTES: [facility] Imaging Services [address] [place] [address] Radiology Report MR#: [id number] Acct: [id number] Name: TITA LAW Rep #: [id number] : 1960 F 53 From: Barrera Galeana MD PCP: Martha Brown DO Status: REG CLI Study: Hip min 2 Views Date of Exam: 09/25/13 Exam# [id number] Ordering Dr: Martha Brown DO STUDY: X-RAY [...] Barrera Galeana MD at 16:18 EDT Tel [phone], Service support [phone], Fax CC: Martha Brown DO Structural Metal Worker: Signed 25-Sep-2013 Pelvis 1 or 2 Views Result: Comments: See Note; NOTES: [facility] Imaging Services [address] [place] [address] Radiology Report MR#: [id number] Acct: [id number] Name: TIAT LAW Rep #: [id number] : 1960 F 53 From: Khang Braun MD PCP: Martha Brown DO Status: REG CLI Study: Pelvis 1 or 2 Views Date of Exam: 09/25/13 Exam# [id number] Ordering Dr: Martha Brown DO STUDY: X-RAY [...] MD at 16:24 EDT , Service support [phone], 0063 RAD/Pelvis 1 or 2 Views IMPRESSION: Normal x-ray examination of the pelvis. Electronically Signed: Khang Braun MD at 16:24 EDT , Service support [phone], CC: Martha Brown DO Structural Metal Worker: Signed 25-Sep-2013 Thoracic Spine 3 Views Result: Comments: See Note; NOTES: [facility] Imaging Services [address] [place] [address] Radiology Report MR#: [id number] Acct: [id number] Name: TITA LAW Rep #: [id number] : 1960 F 53 From: Barrera Galeana MD PCP: Martha Brown DO Status: REG CLI Study: Thoracic Spine 3 Views Date of Exam: 09/25/13 Exam# [id number] Ordering Dr: Martha Brown DO STUDY: X-RAY [...] Ac Galeana MD at 16:19 EDT Tel [phone], Service support [phone], RAD/Thoracic Spine 3 Views IMPRESSION: Degenerative changes. Elect ronically Signed: Barrera Galeana MD at 16:19 EDT Tel [phone], Service support [phone], CC: Martha Brown DO Structural Metal Worker: Signed 24-Jun-2013 Bilat Scrn Digital & CAD Result: Comments: See Note; NOTES: [facility] Imaging Services [address] [place] [address] Breast Imaging Report MR#: [id number] Acct: [id number] Name: TITA LAW Rep #: [id number] : 1960 F 52 From: Barrera Galeana MD PCP: Martha Brown DO Status: REG CLI Exam# [id number] Ordering Dr: Shahla Myers MD MAMMOGRAPHY - [...] Barrera Galeana MD at 9:32 EDT Tel [phone], Service support [phone], F ax [phone] CC: Martha Brown DO; Shahla Myers MD Structural Metal Worker: Signed 14-May-2013 Chest PA and Lateral Result: Comments: See Note; NOTES: [facility] Imaging Services [address] [place] [address] Radiology Report MR#: [id number] Acct: [id number] Name: TITA LAW Rep #: [id number] : 1960 F 52 From: Barrera Galeana MD PCP: Martha Brown DO Status: REG CLI Study: Chest PA and Lateral Date of Exam: 05/14/13 Exam# [id number] Ordering Dr: Martha Brown DO STUDY: X [...] M.D. at 14:47 EDT , Service support [phone], CC: Martha Brown DO Structural Metal Worker: Signed Family History Unknown Family Member Name [...] kg/m2 Body Surface Area Calculated 1.76 m2 40-Rrc-212998:25 Temperature 97.9 f Comments: Method: Temporal Pulse [...] kg/m2 Body Surface Area Calculated 1.8 m2 37-Tte-697487:15 Comments: zhyedvouwz909/72, 60sitting 98/56 67standing 94/58, 78 Temperature 97.5 [...] 155 lb Results Date Description Value Details 3-Hbk-534014:12 CBC W/Diff, Automated Comments: [facility] [address] [place], [address] Absolute Lymph 1.71 {X10_3/ul} (Normal) [...] 4.2-5.4 WBC 8.2 K/mm3 (Normal) Range: 4.4-11.0 8-Upb-796311:12 Comprehensive Metabolic Comments: ADD TSH ON TO 0104:[id number]-PJrduhxkSelect [facility] Lbutricfoe[address]eb[address] [place], [place], [address] Profil GAP 9 (Normal) Range: 5-15 CO2 [...] Comments: Please note revised GLUCOSE reference range nccrgpqoo60/02/2018. 6-Cqf-673388:12 Hemoglobin A1c Comments: [facility] Xjlkdnbynk9029 [facility] [place], [place], [address] HGB A1C 5.8 % (Normal) Range: 4.2-6.3 3-Wip-011523:12 Lipid Profile Comments: ADD TSH ON TO 0104:[id number]:OW9-8-AAhnlpjmSelect Medical [facility] Hziumrejgo9114 [facility] [place], [place], [address] VLDL 15 mg/dL (Normal) Range: 5-40 LDL [...] 200-240 mg/dL Borderline >240 mg/dL High Risk 2-Vmu-618041:12 Thyroid Stim Hormone Comments: ADD TSH ON TO 0104:[id number]:VW8-2-PEpbrfgrSelect Medical [facility] Ulmosjukaa2470 [facility] [address]. [place], [place], [address] (TSH) TSH 0.15 {uIU/mL} (Abnormal) Range: 0.358-3.74 98-Sca-548277:56 CBC W/Diff, Automated Comments: [facility] [address] [place], [place], [address] Absolute Lymph 1.33 {X10_3/ul} (Normal) Range: 0.83-4.51 [...] 4.2-5.4 WBC 14.0 K/mm3 (Abnormal) Range: 4.4-11.0 37-Ikg-395285:56 Comprehensive Metabolic Profil Comments: [facility] [address] [place], [place], [address] GAP 9 (Normal) Range: 5-15 CO2 26.0 [...] Comments: Please note revised GLUCOSE reference range dfwtkyjoi29/02/2018. 37-Geq-726903:15 URINE ARELY CULTURE-IDENTIFICATN Comments: PATIENT NOT FASTINGPERFORMED BY: [facility] Gvwhdm3351 [facility] [id number] Information: SRC:UC (90639) Result 1 NG36 (Normal) Comments: No growth in 36 - 48 hours. Urine Culture,Comprehensive Final report (Normal) 69-Aub-503468:01 Urinalysis, Office (11447) UA - LEUKOCYTE ESTERASE Large (Normal) UA - NITRITE Positive (Normal) URINE UROBILINGN SPRING TIMED 2 mg/dL (Normal) UA - PROTEIN 300 mg/dL (Normal) UA - PH 7 (Normal) UA - BLOOD Hemolyzed Large (Normal) UA - SPECIFIC GRAVITY 1.020 (Normal) UA - KETONES 15 mg/dL (Abnormal) UA - BILIRUBIN Large (Normal) UA - GLUCOSE Negative (Normal) 7-Apf-324605:45 Culture, Urine Comments: [facility] [address] [place], [address] CUUR See Note (Normal) Comments: Urine CultureORGANISM [...] $ >=320 R(NF) indicates non-formulary drug at [facility]. Approval by Infectious Disease Specialist required before non-formulary drugs may be ordered and/or dispensed. 3-Ilp-543163:45 Urinalysis, Complete Comments: How was Urine Obtained? CLEAN [facility] Uhfoxxarlg[address] [place], [address] CA OX CRYSTAL 1+ {/hpf} (Normal) MUCUS, [...] (Normal) CLARITY Cloudy (Normal) COLOR Yellow (Normal) 41-Zds-390494:49 CBC (AUTO) (35124) Comments: PATIENT NOT FASTINGPERFORMED BY: [facility] Twyurk7970 [address] [facility] [id number] Platelets 303 {x10E3/uL} (Normal) Range: 150-379 RDW 14.5 % (Normal) Range: 12.3-15.4 MCHC 33.9 g/dL (Normal) Range: 31.5-35.7 MCH 32.4 pg (Normal) Range: 26.6-33.0 MCV 96 fL (Normal) Range: 79-97 Hematocrit 37.5 % (Normal) Range: 34.0-46.6 Hemoglobin 12.7 g/dL (Normal) Range: 11.1-15.9 RBC 3.92 {x10E6/uL} (Normal) Range: 3.77-5.28 WBC 7.9 {x10E3/uL} (Normal) Range: 3.4-10.8 25-Kkb-793203:49 MICROALBUMIN: CREATININE RATIO Comments: PATIENT NOT FASTINGPERFORMED BY: [facility] Vetgyh8207 Alvarado [facility] [id number] (76710) AND (99322) Alb/Creat Ratio 4.1 {mg/g_creat} (Normal) Range: 0.0-30.0 Comments: Normal: 0.0 - 30.0 Albuminuria: 31.0 - 300.0 Clinical albuminuria: >300.0 Albumin, Urine 6.7 ug/mL (Normal) Creatinine, Urine 161.5 mg/dL (Normal) 08-Ukz-885037:49 METABOLIC PANEL, COMPREHENSIVE Comments: PATIENT NOT FASTINGPERFORMED BY: [facility] Esftvn8697 [facility] [id number]; appt 12/05 (66766) ALT (SGPT) 14 [iU]/L (Normal) Range: 0-32 [...] 6-24 Glucose 94 mg/dL (Normal) Range: 65-99 6-Oah-400055:22 CBC W/Diff, Automated Comments: [facility] [address] [place], [address] Absolute Lymph 1.79 {X10_3/ul} (Normal) [...] 4.2-5.4 WBC 6.3 K/mm3 (Normal) Range: 4.4-11.0 3-Zrh-152572:22 Comprehensive Metabolic Profil Comments: [facility] [address] [place], [address] GAP 8 (Normal) Range: 5-15 [...] Comments: Please note revised GLUCOSE reference range kxnuavyte68/02/2018. 3-Cen-143602:22 CRP Comments: [facility] [address] [place], [address] C-REACTIVE PROT < 2.90 mg/L (Normal) Range: 0.0-3.0 Comments: C-Reactive Protein (CRP) provides useful information for thediagnosis, therapy and monitoring of inflammatory processesand associated diseases. For the evaluation of Relative Riskfor Cardiovascular Dise ase, a High Sensitivity CRP (HSCRP)should be ordered. 4-Dga-009908:22 Erythrocyte Sed Rate Comments: [facility] [address]ac[address] [place], [address] SED RATE 3 mm/h (Normal) Range: 0-30 1-Ydt-969951:22 Hemoglobin A1c Comments: [facility] [address]ctclehra[address] [place], [address] HGB A1C 5.7 % (Normal) Range: 4.2-6.3 5-Ecx-561438:22 Lipid Profile Comments: [facility] [address]vgri[address] [place], [address] VLDL 21 mg/dL (Normal) Range: 5-40 [...] 200-240 mg/dL Borderline >240 mg/dL High Risk 5-Vmq-951770:22 Vitamin D,25 Hydroxy Comments: [facility] [address]ch[address]una[address] [place], [place], [address] Vitamin D 25-OH 36.0 ng/mL (Normal) Range: 29.95-100.01 Comments: Vitamin D 25(OH) Status Range Deficiency <20 ng/mL (50nmol/L) Insuffciency 20 - 30 ng/mL (50 - 75 nmol/L) Sufficiency 30 - 100 ng/mL (75 - 250 nmol/L) Toxicity >100 ng/mL (>250 nmol/L) 11-Xjd-390979:37 CBC W/Diff, Automated Comments: [facility] [address] [place], [place], [address] ; appt 5/2 Absolute Lymph 2.05 {X10_3/ul} [...] 4.2-5.4 WBC 5.5 K/mm3 (Normal) Range: 4.4-11.0 15-Uos-751181:37 Comprehensive Metabolic Profil Comments: [facility] Tvfrhitqdj5[address] [place], [place], [address] GAP 8 (Normal) Range: 5-15 CO2 24.0 [...] Comments: Please note revised GLUCOSE reference range ysktjdddo83/02/2018. 19-Pll-320600:37 Hemoglobin A1c Comments: [facility] Vaiasytidj7157 [facility] [place], [address] HGB A1C 5.9 % (Normal) Range: 4.2-6.3 05-Zdq-753102:37 Lipid Profile Comments: [facility] Istsyxwbfj8540 [facility] [place], [address] VLDL 16 mg/dL (Normal) Range: 5-40 LDL [...] 200-240 mg/dL Borderline >240 mg/dL High Risk 99-Jfw-279923:06 METABOLIC PANEL, COMPREHENSIVE Comments: PATIENT NOT FASTINGPERFORMED BY: [facility] Hiijpf4588 [facility] [id number] (07619) ALT (SGPT) 19 [iU]/L (Normal) Range: 0-32 [...] Glucose, Serum 84 mg/dL (Normal) Range: 65-99 73-Qve-999412:26 CBC W/Diff, Automated Comments: [facility] [address]fxcqor[address] [place], [place], [address] ; patient coming in today Absolute Lymph [...] 4.2-5.4 WBC 10.1 K/mm3 (Normal) Range: 4.4-11.0 97-Luu-810957:26 EBV Acute Prof IgG / IgM Comments: [...] - Antibody Ab sentPerformed at: - [facility] [address] [id number] Director: Sean Daniel PhD, Phone: [phone] EB-NAg [id number] > 600.0 U/mL (Abnormal) Range: 0.0-17.9 Comments: Negative <18.0 Equivocal 18.0 - 21.9 Positive >21.9 EB-VCA LuY19373 226.0 U/mL (Abnormal) Range: 0.0-17.9 Comments: Negative <18.0 Equivocal 18.0 - 21.9 Positive >21.9 EB-EA IgG 94158 49.1 U/mL (Abnormal) Range: 0.0-8.9 Comments: Hepatitis A, Hepatitis C and HIV antibodies may cross-reactwith this assay. Negative < 9.0 Equivocal 9.0 - 10.9 Positive >10.9 EB-VCA GtO19860 < 36.0 U/mL (Normal) Range: 0.0-35.9 Comments: Negative <36.0 Equivocal 36.0 - 43.9 Positive >43.9 39-Jnx-818409:37 Basic Metabolic Profile (BMP) Comments: [facility] [address] [place], [place], [address] GAP 8 (Normal) Range: 5-15 CO2 23.0 [...] A.D.A. criteria.Please note revised GLUCOSE reference range pjesymhos54/02/2018. 44-Xee-396937:37 CBC W/Diff, Automated Comments: [facility] [address] [place], [place], [address] Absolute Lymph 2.00 {X10_3/ul} (Normal) Range: 0.83-4.51 [...] 4.2-5.4 WBC 8.8 K/mm3 (Normal) Range: 4.4-11.0 08-Udg-484930:30 CBC With Differential/Platelet Comments: PERFORMED BY: [facility]6370 [facility] [id number] Information: DCVIP PATIENT - NURSE Immature Grans (Abs) 0.0 [...] 3.77-5.28 WBC 6.8 {x10E3/uL} (Normal) Range: 3.4-10.8 58-Idt-113005:30 Comp. Metabolic Panel (14) Comments: PERFORMED BY: [facility] CenterYcacxh0385 [facility] [id number]; can review at upcoming appt ALT (SGPT) [...] 98 mg/dL (Normal) Range: 65-99 :21 TSH (15076) Comments: PATIENT NOT FASTINGPERFORMED BY: [facility]6370 [facility] [id number] TSH 2.830 {uIU/mL} (Normal) Range: 0.450-4.500 :21 T3, FREE (TRIDOTHYRONINE) (72906) Comments: PATIENT NOT FASTINGPERFORMED BY: [facility] [place] [address] [id number] Triiodothyronine,Free,Serum 2.6 pg/mL (Normal) Range: 2.0-4.4 :21 T4, FREE (THYROXINE) (45797) Comments: PATIENT NOT FASTINGPERFORMED BY: [address] [id number] T4,Free(Direct) 1.12 ng/dL (Normal) Range: 0.82-1.77 :32 CBC W/Diff, Automated Comments: [facility] [address]sj[address] [place], [place], [address] Absolute Lymph 3.84 {X10_3/ul} (Normal) Range: 0.83-4.51 [...] 4.2-5.4 WBC 7.6 K/mm3 (Normal) Range: 4.4-11.0 24-Cre-33274:32 Comprehensive Metabolic Profil Comments: [facility] Cxwfgcbavb5[address] [place], [place], [address] ; non-emergent till next weeks apt GAP [...] (Normal) Range: 70-110 :32 Hemoglobin A1c Comments: [facility] [address] [place], [place], [address] HGB A1C 6.2 % (Normal) Range: 4.2-6.3 :32 Lipid Profile Comments: [facility] [address] [place], [place], [address] VLDL 19 mg/dL (Normal) Range: 5-40 LDL [...] High Risk :36 CBC W/Diff, Automated Comments: [facility] [address] [place], [address] Absolute Lymph 2.01 {X10_3/ul} (Normal) [...] 4.2-5.4 WBC 8.0 K/mm3 (Normal) Range: 4.4-11.0 55-Nva-97343:36 Comprehensive Metabolic Profil Comments: [facility] [address]tfwl4[address] [place], [address] GAP 10 (Normal) Range: 5-15 CO2 25.0 [...] mg/dL (Normal) Range: 70-110 :36 CRP Comments: [address] [place], [address] C-REACTIVE PROT < 2.90 mg/L (Normal) Range: 0.0-3.0 Comments: C-Reactive Protein (CRP) provides useful information for thediagnosis, therapy and monitoring of inflammatory processesand associated diseases. For the evaluation of Relative Riskfor Cardiovascular Dise ase, a High Sensitivity CRP (HSCRP)should be ordered. :36 Culture, Urine Comments: [address] [place], [place], [address] CUUR See Note (Normal) Comments: Urine CultureCOLONY COUNT 400 CFU/ML Below infection level. ORGANISM 1: GNR Poss Pseudomonas spColony Count <1000 :36 Erythrocyte Sed Rate Comments: [address] [place], [place], [address] SED RATE 5 mm/h (Normal) Range: 0-30 :36 Free T3 Comments: [address] [place], [place], [address] FREE T3 2.4 pg/mL (Normal) Range: 2.18-3.98 :36 Rheumatoid Factor Comments: [facility] [address]mxsqxflam[address] [place], [place], [address] RHEUMATOID FAC < 10.0 {IU/mL} (Normal) :36 T4 Free Direct Comments: [facility] Nldslntyea3598 [facility] [place], [place], [address] T4 FREE DIRECT 1.09 ng/dL (Normal) Range: 0.76-1.46 :36 Thyroid Stim Hormone (TSH) Comments: [facility] [address] [place], [place], [address] TSH 0.08 {uIU/mL} (Abnormal) Range: 0.358-3.74 :36 Uric Acid Comments: [facility] Kadmbycsdo5099 [facility] [place], [place], [address] URIC 3.6 mg/dL (Normal) Range: 2.6-6.0 Comments: The drugs N-Acetylcysteine and Metamizole may falsely deressthis assay. 16-Psp-63854:30 URINE ARELY CULTURE-SPRING COL Comments: PERFORMED BY: [place] [id number] [facility] [id number] Information: SRC:UR COUNT (94129) Result 1 MUG (Normal) Comments: Mixed urogenital flora1,000 Colonies/mL Urine Culture,Comprehensive Final report (Normal) 96-Bgz-671643:20 Urinalysis, Office (12815) UA - LEUKOCYTE ESTERASE Negative (Normal) UA - NITRITE Negative (Normal) URINE UROBILINGN SPRING TIMED Normal mg/dL (Normal) UA - PROTEIN Negative mg/dL (Normal) UA - PH 7 (Normal) UA - BLOOD Negative (Normal) UA - SPECIFIC GRAVITY 1.015 (Normal) UA - KETONES Negative mg/dL (Normal) UA - BILIRUBIN Negative (Normal) UA - GLUCOSE Negative (Normal) [id number]-Exw-[id number]:52 ARELY CULTURE-OTHER (08560) Comments: PATIENT NOT FASTINGPERFORMED BY: [facility] [id number] [facility] [id number] Information: THROAT SRC:TH Result 1 RRF (Normal) Comments: Routine respiratory kaylene Upper Respiratory Culture Final report (Normal) [id number]-Cvv-[id number]:07 Rapid Strep Test, Office (89846) Rapid Strep Test, Negative (Normal) Office 02-Wrx-720456:2 Magnesium, Serum 2.0 mg/dL (Normal) Comments: PATIENT NOT FASTINGPERFORMED BY: [facility] [id number] [facility] [id number] Information: SRC:UC 1 Range: 1.6-2.3 63-Syi-541570:21 Microscopic Examination Comments: PATIENT NOT FASTINGPERFORMED BY: [facility] [id number] [facility] [id number] BY: [address] [id number] Bacteria None seen (Normal) Epithelial Cells (non None seen {/hpf} Range: 0 - 10 renal) (Normal) RBC 0-2 {/hpf} Range: 0 - 2 (Normal) WBC 0-5 {/hpf} Range: 0 - 5 (Normal) Sodium, Urine <20 mmol/L Comments: PATIENT NOT FASTINGPERFORMED BY: [facility] Shzuss1676 [facility] [id number] BY: [address] [id number] 4:21 (Normal) Written Authorization WAR (Normal) Comments: PATIENT NOT FASTINGPERFORMED BY: [facility] Xtuhxp1833 [facility] [id number] 4:21 Comments: Written Authorization Received.Authorization received from YURIY VERNON LPN [id number] by Tg Stewart 65-Uoz-940176:21 URINE ARELY CULTURE-IDENTIFICATN Comments: PATIENT NOT FASTINGPERFORMED BY: [facility] Ygrptl4154 [facility] [id number] BY: BN Lab[address] [id number] ([address]91) Result 1 NG36 (Normal) Comments: No growth in 36 - 48 hours. Urine Culture,Comprehensive Final report (Normal) 15-Zvs-821163:21 URINALYSIS, W/ MICRO Comments: PATIENT NOT FASTINGPERFORMED BY: Prifloat[address] [id number] BY: [address] [id number] Information: SRC: ([id number]) Microscopic Examination See below: (Normal) Comments: Microscopic was indicated and was performed. Microscopic Examination MICRON (Normal) Comments: Microscopic follows if indicated. Nitrite, Urine Negative (Normal) Urobilinogen,Semi-Qn 0.2 mg/dL (Normal) Range: 0.2-1.0 Bilirubin Negative (Normal) Occult Blood Negative (Normal) Ketones Negative (Normal) Glucose Negative (Normal) Protein Negative (Normal) WBC Esterase Negative (Normal) Appearance Clear (Normal) Urine-Color Yellow (Normal) pH 7.0 (Normal) Range: 5.0-7.5 Specific [place] 1.007 (Normal) Range: 1.005-1.030 03-Rxv-022622:21 OSMOLALITY URINE (96093) Comments: PATIENT NOT FASTINGPERFORMED BY: Prifloat[address] [id number] BY: [employer] [id number] Osmolality, Urine 98 {mOsmol/kg} (Normal) Comments: 24 hr : 300 - 900 Random: 50 - 1400 After 12hr fluid restriction: >850 62-Tyb-531425:21 OSMOLALITY BLOOD (41299) Comments: PATIENT NOT FASTINGPERFORMED BY: [employer] [id number] BY: [address] [id number] Osmolality 265 {mOsmol/kg} (Abnormal) Range: 275-295 41-Ymd-936909:21 SODIUM SERUM (80483) Comments: PATIENT NOT FASTINGPERFORMED BY: Lab99 Vargas StreetDukody [place] [id number] BY: [facility] Bdomhxwmwe7273 [facility] [id number] Sodium, Serum 132 mmol/L (Abnormal) Range: 134-144 57-Aul-712021:15 Comprehensive Metabolic Profil Comments: [facility] [address] [place], [place], [address] GAP 9 (Normal) Range: 5-15 CO2 25.0 [...] 7-18 GLU 86 mg/dL (Normal) Range: 70-110 48-Vkk-298498:15 Free T3 Comments: [facility] [address] [place], [address] FREE T3 2.3 pg/mL (Normal) Range: 2.18-3.98 23-Zig-893037:15 Phosphorus Comments: [facility] Ihpfmvqdyq[address] [place], [address] PHOS 2.9 mg/dL (Normal) Range: 2.5-4.9 17-Tvm-763858:15 PTH,INTACT Comments: [facility] Ywqxetsitt[address] [place], [address] PTH,Intact 35 pg/mL (Normal) Range: 14-72 24-Yef-021082:15 T4 Free Direct Comments: [facility] Txzinsyaua[address] [place], [address] T4 FREE DIRECT 1.06 ng/dL (Normal) Range: 0.76-1.46 94-Csf-702298:15 Thyroid Stim Hormone (TSH) Comments: [facility] Uxbozlaupe[address] [place], [address] TSH 5.47 {uIU/mL} (Abnormal) Range: 0.358-3.74 98-Obo-467691:15 Vitamin D,25 Hydroxy Comments: [facility] Fyixllsqea[address] [place], [address] Vitamin D 25-OH 38.0 ng/mL (Normal) Comments: Vitamin D 25(OH) Status Range Deficiency <20 ng/mL (50nmol/L) Insuffciency 20 - 30 ng/mL (50 - 75 nmol/L) Sufficiency 30 - 100 ng/mL (75 - 250 nmol/L) Toxicity >100 ng/mL (>250 nmol/L) 5-Nme-628560:31 Comprehensive Metabolic Profil Comments: [facility] Kootnhqlla9[address] [place], [address] GAP 11 (Normal) Range: 5-15 CO2 24.0 [...] 7-18 GLU 96 mg/dL (Normal) Range: 70-110 8-Lbi-855002:31 Free T3 Comments: [facility] [address] [place], [place], [address] FREE T3 2.3 pg/mL (Normal) Range: 2.18-3.98 8-Nml-881072:31 Hemoglobin A1c Comments: [address] [place], [place], [address] HGB A1C 5.7 % (Normal) Range: 4.2-6.3 9-Gaq-464393:31 Lipid Profile Comments: [address] [place], [place], [address] VLDL 19 mg/dL (Normal) Range: 5-40 LDL [...] 200-240 mg/dL Borderline >240 mg/dL High Risk 8-Tyk-538147:31 Microalb:Creat Ratio,Random UR Comments: [facility] [address] [place], [place], [address] MALB:CREAT 5.4 {mg/g_CRE} (Normal) MICROALBUMIN,UR 6.7 mg/L (Normal) UR CREAT 124.00 mg/dL (Normal) :31 T4 Free Direct Comments: [facility] [address] [place], [place], [address] T4 FREE DIRECT 0.70 ng/dL (Abnormal) Range: 0.76-1.46 :31 Thyroid Stim Hormone (TSH) Comments: [facility] Vrk[address]kgnzc[address] [place], [place], [address] TSH 4.87 {uIU/mL} (Abnormal) Range: 0.358-3.74 :49 [facility] Opera Singer AB, Blocking Comments: [facility] (refer to report for specific site)refer to report for address and phone number [facility] REC 48935 19 % (Normal) Range: 0-25 Comments: Negative: 0 - 25 Borderline: 26 - 30 Positive: >30Results for this test are for research purposesonly by the assay's alberta rodriguez. The performancecharacteristics of this product have not beenestablished. Results should not be used as adiagnostic procedure without confirmation of thediagnosis by another medically establishe ddiagnostic product or procedure.Performed at: [address] [id number] Director: Eusebio Live MD, Phone: [phone] 3-Lkb-716254:49 Lyme Antibodies,W Blot Comments: [facility] (refer to [...] positivity are those recommended byCDC/ASTPHLD. p23=Osp C, v62=qhygoxsfqYbga:Sera from individuals with the following may cross [...] Ab Absent (Normal) P93 Ab Absent (Normal) 29-Ivp-74490:39 Acid Fast Bact Cult/Sm Comments: [facility] [address]ufig[address] [place], [place], [address] AFBCS See Note Comments: AFB Smear/Fluor TESTING PERFORMED AT [facility]. ORIGINAL REPORT ON FILE IN LAB CONTAINS ADDITIONAL TEST SITE INFORMATION. (Normal) Smear, Acid Fast NO ACID-FAST BACILLI OBSERVED ON SMEAR. AFB Cult TESTING [facility]FOR[facility]. ORIGIN AL REPORT ON FILE IN LAB CONTAINS ADDITIONAL TEST SITE INFORMATION. Culture, Acid Fast NO ACID-FAST BACILLI ISOLATED AFTER 6 WEEKS. :39 Body Fluid Cell Count+Diff Comments: Specimen Source: [facility] [address] [place] [address], [address] PATH COMM/BF May follow (Normal) BF [...] Body Fluid / CSF Comments: Specimen Source: [facility] [address]odkby1773 [place], [address] CYTOLOGY,BF/CSF SEE PATHOLOGY REPORT Comments: Specimen submitted to Anatomical Pathology Department [facility]. (Normal) :39 CYTOSPIN ON FLUID See Note (Normal) Comments: [facility] [address] DanielbrynIfe[address] [place], [place], [address] Comments: Patient: TITA LAW : 1960 (55/F) Acct Num: [id number] Phys: Momo BRADY, Pepper Unit Num: [id number] Loc: RAD Specimen: [id number] Received: 03/15/16 - 1239 Spec Type: CYSPIN FL TISSUES TISSUES: CYTOLOGY GROSS Received is 3 ml of clear, colorless fluid labeled with the patient's name and and designated per the requisition as CSF. Submitted f or cytology preparation. 03/15/16 TC:4 CPT: 25000 CYTOLOGY STUDY Slides are reviewed. DIAGNOSIS CYTOLOGY Cerebrospinal fluid (cytospins): The specimen is acellular. SJ:tiffanie 7 HEADER OPERATION: Lumbar puncture PRE-OP DIAGNOSIS: Rule out MS TISSUE SUBMITTED: Cerebrospinal fluid Signed Christian Holt 03/16/16 <signature on file> :39 Glucose Spinal Fluid Comments: Comments: PROTEIN ELCTRO-CSF LC#[id number] Source? [facility] [address]jrsdiyy[address] [place], [place], [address] GLU SPINAL FLD 57 mg/dL (Normal) Range: 40-75 97-Fjv-48599:39 Miscellaneous Lab Procedure Comments: Comments: PROTEIN ELCTRO- CSF LC#[id number]) Ordered: PROTEIN ELCTRO-CSF LC#[id number] [address]ys[address] [place], [address] MISC Comments: TEST RESULT UNITS REFERENCE INTERVALProtein Electrophoresis, CSFProtein, Total, CSF 36.7 mg/dL 0.0 - 44.0Pre- Albumin (CSF) 2.6 % 2.2 - 7.1Albumin LAB (Normal) (CSF) 68.5 % 56.8 - 76.9Fdwky-7-Upbdcdqf CSF 3.9 % 1.1 - 6.0Iwozn-9-Tssjfrmj CSF 4.6 % 3.0 - 12.6Beta Globulin (CSF) 15.0 % 7 TEST .3 - 17.9Gamma Globulin (CSF) 5.5 % 3.0 - 13.0Protein electrophoresis scan will follow via computer, mail,or lacquer maker delivery.M-Logan Not Observed % Not Observed__ TESTING PERFORMED AT [facility]. ORIGINAL REPORT ON FILE IN LAB CONTAINS ADDITIONAL TEST SITE INFORMATION. :39 Myelin Basic Protein, MBP Comments: [facility] (refer to report for specific site)refer to report for address and phone number MBP [id number] 1.8 ng/mL (Abnormal) Range: 0.0-1.2 Comments: Results for this test are for research purposes only by theassay's clean room assembler. The performance characteristics ofthis product have not been established. Results should notbe used as a diagnostic pro cedure without confirmation ofthe diagnosis by another medically established diagnosticproduct or procedure. :39 Protein Spinal Fluid Comments: Comments: PROTEIN ELCTRO-CSF #[id number] Source? [facility] Vdasemabti2970 [facility]. [place], [place], [address] PROTEIN CSF 38.0 mg/dL (Normal) Range: 15.0-45.0 [...] using IsoelectricFocusing (IEF) and immunoblotting methodology.Performed at: [address] [id number] Director: Sean Daniel PhD, Phone: [phone] OLIG BAND REF LAB (Normal) :04 Protein Electroph, S Comments: [facility] (refer to report for specific site)refer to report for address and phone number NOTE: Comment (Normal) Comments: The SPE pattern appears essentially unremarkable. Evidenceof monoclonal protein is not apparent. INTERPRETATION Comment (Normal) Comments: Protein electrophoresis scan will follow via computer,mail, or lacquer maker delivery. A/G RATIO 1.4 (Normal) Range: 0.7-1.7 GLOBULIN, TOTAL 2.8 g/dL (Normal) Range: 2.2-3.9 M-SPIKE g/dL (Normal) Comments: Not Observed GAMMA GLOBULIN 0.9 g/dL (Normal) Range: 0.4-1.8 BETA GLOBULIN 0.9 g/dL (Normal) Range: 0.7-1.3 ALPHA-2 GLOBUL 0.7 g/dL (Normal) Range: 0.4-1.0 ALPHA-1 GLOBUL 0.2 g/dL (Normal) Range: 0.0-0.4 ALBUMIN 3.9 g/dL (Normal) Range: 2.9-4.4 PROTEIN,TOTAL 6.7 g/dL (Normal) Range: 6.0-8.5 8-Elo-620232:15 CBC W/Diff, Automated Comments: DR VILLAFANA ORDERED CBCD/CMPDR FAST ORDERED BMP/FT3/FT4/TSHDR TRES ORDERED CBCD/CMPDR FAST ORDERED BMP/FT3/FT4/TSHWHolzer [facility] Zvqtrtkhoj0933 [facility]. [place], [place], [address] Absolute Lymph 1.41 {X10_3/ul} (Normal) Range: 0.83-4.51 [...] 4.2-5.4 WBC 8.2 K/mm3 (Normal) Range: 4.4-11.0 3-Xit-357594:15 Comprehensive Metabolic Profil Comments: DR VILLAFANA ORDERED CBCD/CMPDR FAST ORDERED BMP/FT3/FT4/[facility] Elxczncdpf4894 [place], [place], [address] GAP 9 (Normal) Range: 5-15 CO2 26.0 [...] 7-18 GLU 92 mg/dL (Normal) Range: 70-110 4-Myq-649823:15 Free T3 Comments: DR VILLAFANA ORDERED CBCD/CMPDR FAST ORDERED BMP/FT3/FT4/[facility] Vhipajtsgo[address] [place], [place], [address] FREE T3 2.2 pg/mL (Normal) Range: 2.18-3.98 4-Bwu-870225:15 T4 Free Direct Comments: DR VILLAFANA ORDERED CBCD/CMPDR FAST ORDERED BMP/FT3/FT4/[facility] Bl[address]qbdemy38[address] [place], [place], [address] T4 FREE DIRECT 0.96 ng/dL (Normal) Range: 0.76-1.46 5-Gqj-160453:15 Thyroid Stim Hormone (TSH) Comments: DR VILLAFANA ORDERED CBCD/CMPDR FAST ORDERED BMP/FT3/FT4/[facility] Tblhxueorq[address] [place], [place], [address] TSH 0.13 {uIU/mL} (Abnormal) Range: 0.358-3.74 44-Dvr-711194:21 Metabolic Panel, Basic Comments: PATIENT NOT FASTINGPERFORMED BY: LabCoSaint Barnabas Behavioral Health CenterDcmdpo3887 [facility] [id number] (70449) Calcium, Serum 9.5 mg/dL (Normal) Range: 8.7-10.2 [...] 85 mg/dL (Normal) Range: 65-99 :21 TSH (07123) Comments: PATIENT NOT FASTINGPERFORMED BY: [facility]6370 [facility] [id number] TSH 0.031 {uIU/mL} (Abnormal) Range: 0.450-4.500 :21 T3, FREE (TRIDOTHYRONINE) (60225) Comments: PATIENT NOT FASTINGPERFORMED BY: [facility]6370 [facility] [id number] Triiodothyronine,Free,Serum 3.3 pg/mL (Normal) Range: 2.0-4.4 :21 T4, FREE (THYROXINE) (69484) Comments: PATIENT NOT FASTINGPERFORMED BY: [facility]6370 [facility] [id number] T4,Free(Direct) 1.52 ng/dL (Normal) Range: 0.82-1.77 :56 CBC W/Diff, Automated Comments: [facility] [address] [place], [address] Absolute Lymph 1.43 {X10_3/ul} (Normal) Range: 0.83-4.51 [...] Range: 4.4-11.0 :56 Comprehensive Metabolic Profil Comments: [facility] [address]issvtaxvp[address] [place], [place], [address] GAP 9 (Normal) Range: 5-15 CO2 26.0 [...] (Normal) Range: 70-110 :56 Hemoglobin A1c Comments: [facility] Wgoyiwildz1457 [facility]. [place], [place], [address] HGB A1C 5.4 % (Normal) Range: 4.2-6.3 :56 Microalb:Creat Ratio,Random UR Comments: [facility] Ligjaxdxoi[address] [facility] [place], [address] MALB:CREAT Test not performed {mg/g_CRE} [...] the [place] Food and Drug Administration.Performed at: [facility] [address] [place] [id number] Director: Eusebio Live MD, Phone: [phone] INS RES/DIAB RK . (Normal) LDL SIZE [...] mg/dL (Abnormal) Range: 100-199 LIPIDS . (Normal) 47-Kol-845358:26 Microscopic Examination Comments: PATIENT NOT FASTINGPERFORMED BY: LabCoSaint Barnabas Behavioral Health CenterXbadby6351 [facility] [id number] Bacteria Few (Normal) Epithelial Cells (non renal) 0-10 {/hpf} (Normal) Range: 0 - 10 RBC 0-2 {/hpf} (Normal) Range: 0 - 2 WBC 0-5 {/hpf} (Normal) Range: 0 - 5 :26 METABOLIC PANEL, COMPREHENSIVE Comments: PATIENT NOT FASTINGPERFORMED BY: PrifloatLea Regional Medical CenterHdjocd3981 [facility] [id number] (20273) ALT (SGPT) 23 [iU]/L (Normal) Range: 0-32 [...] Glucose, Serum 84 mg/dL (Normal) Range: 65-99 96-Ryn-362032:26 URINE ARELY CULTURE-IDENTIFICATN Comments: PATIENT NOT FASTINGPERFORMED BY: [facility] IntegrationPontiac [facility] Hospital6370 [facility] [id number] (19655) Result 1 NG36 (Normal) Comments: No growth in 36 - 48 hours. Urine Culture,Comprehensive Final report (Normal) 78-Cey-942161:26 CBC W/AUTO DIFF WBC Comments: PATIENT NOT FASTINGPERFORMED BY: [facility]6370 [facility] [id number] Information: SRC: ([id number]) Immature Grans (Abs) 0.0 {x10E3/uL} (Normal) Range: [...] (Normal) Range: 3.4-10.8 :26 URINALYSIS, W/ MICRO (76448) Comments: PATIENT NOT FASTINGPERFORMED BY: [facility]6370 [facility] [id number] Microscopic Examination See below: (Normal) Comments: Microscopic was indicated and was performed. Microscopic Examination MICRON (Normal) Comments: Microscopic follows if indicated. Nitrite, Urine Negative (Normal) Urobilinogen,Semi-Qn 0.2 mg/dL (Normal) Range: 0.2-1.0 Bilirubin Negative (Normal) Occult Blood Negative (Normal) Ketones Negative (Normal) Glucose Negative (Normal) Protein Negative (Normal) WBC Esterase Negative (Normal) Appearance Clear (Normal) Urine-Color Yellow (Normal) pH 7.5 (Normal) Range: 5.0-7.5 Specific [place] 1.005 (Normal) Range: 1.005-1.030 :53 Partial Thromboplast Time Comments: [facility] [address] [facility] [place], [address] PTT 34.1 s (Normal) Range: 24.1-36.2 :53 Prothrombin Time w/INR Comments: [facility] [address] [place], [place], [address] INR 1.1 (Normal) PROTIME 14.1 s (Normal) Range: 11.7-14.9 :43 CBC W/Diff, Automated Comments: [facility] [address] [place], [place], [address] Absolute Lymph 1.00 {X10_3/ul} (Normal) Range: 0.83-4.51 [...] 4.2-5.4 WBC 16.5 K/mm3 (Abnormal) Range: 4.4-11.0 84-Bie-006486:43 Comprehensive Metabolic Profil Comments: [facility] [address]kw[address] [place], [place], [address] GAP 11 (Normal) Range: 5-15 CO2 24.0 [...] 7-18 GLU 82 mg/dL (Normal) Range: 70-110 26-Xxv-925046:43 Lactic Acid Comments: [facility] [address]wmkgvi[address] [place], [address] LACTIC ACID 1.5 mmol/L (Normal) Range: 0.4-2.0 7-Ujz-405505:06 Metabolic Panel, Basic (48747) Comments: PATIENT NOT FASTINGPERFORMED BY: Rosetta GenomicsCaroMont Regional Medical Center [id number] Calcium, Serum 9.9 mg/dL (Normal) Range: 8.7-10.2 [...] Glucose, Serum 82 mg/dL (Normal) Range: 65-99 5-Tkc-807428:06 PHOSPHORUS (87367) Comments: PATIENT NOT FASTINGPERFORMED BY: ID.me6370 AlvaradoRedOak LogicQuorum Health [id number] Phosphorus, Serum 3.8 mg/dL (Normal) Range: 2.5-4.5 9-Ekd-968306:06 PARATHORMONE (14656) Comments: PATIENT NOT FASTINGPERFORMED BY: Travtar AlvaradoAmnisCaroMont Regional Medical Center [id number] PTH, Intact 30 pg/mL (Normal) Range: 15-65 2-Hpv-556508:06 SPEP (74832) Comments: PATIENT NOT FASTINGPERFORMED BY: Rosetta Genomicsblin [place] [id number] Information: [id number] Please note: SPRCS (Normal) Comments: Protein electrophoresis scan will follow via computer, mail, orcourier delivery. A/G Ratio 1.4 (Normal) Range: 0.7-1.7 Globulin, Total 3.1 g/dL (Normal) Range: 2.2-3.9 M-Logan Not Observed g/dL (Normal) Gamma Globulin 1.1 g/dL (Normal) Range: 0.4-1.8 Beta Globulin 1.0 g/dL (Normal) Range: 0.7-1.3 Xeurj-3-Xfdogyxd 0.8 g/dL (Normal) Range: 0.4-1.0 Legjf-5-Owapmsxf 0.3 g/dL (Normal) Range: 0.0-0.4 Albumin 4.4 g/dL (Normal) Range: 2.9-4.4 Protein, Total, Serum 7.5 g/dL (Normal) Range: 6.0-8.5 :06 UPEP (16031) Comments: PATIENT NOT FASTINGPERFORMED BY: CloudFXlin6370 [facility] [id number] Please note: SPRCS (Normal) Comments: Protein electrophoresis scan will follow via computer, mail, orcourier delivery. M-Logan, % Not Observed % (Normal) Gamma Globulin, U 43.5 % (Normal) Beta Globulin, U 33.9 % (Normal) Ifsmr-5-Ygehvhnj, U 9.6 % (Normal) Tpvbs-8-Yzfojijv, U 0.8 % (Normal) Albumin, U 12.1 % (Normal) Protein,Total,Urine <4.0 mg/dL (Normal) Comments: Verified by repeat analysis :23 URINE CALCIUM SPRING TIMED Comments: PATIENT NOT FASTINGPERFORMED BY: PrifloatSaint Barnabas Behavioral Health CenterWtrgwx0246 [facility] [id number] Information: [id number] 24 Hour (69419) Calcium, Urine 24hr 133.5 {mg/24_hr} (Normal) Range: 100.0-300.0 Calcium, Urine 3.0 mg/dL (Normal) :08 METABOLIC PANEL, Comments: PATIENT NOT FASTINGPERFORMED BY: JUAN LUIS LabCoSaint Barnabas Behavioral Health CenterGarujz2545 [facility] [id number] Information: [id number] COMPREHENSIVE (75923) ALT (SGPT) 15 [iU]/L (Normal) Range: 0-32 [...] mg/dL (Normal) Range: 65-99 :34 Urinalysis, Office (89621) UA - LEUKOCYTE ESTERASE Negative (Normal) UA [...] (SPRING Comments: PATIENT NOT FASTINGPERFORMED BY: [facility] Tjbgjt1302 Alvarado [facility] Hospitalkody [place] [id number] Information: SRC:[facility] [id number] COL COUNT) (56762) Result 1 NG36 (Normal) Comments: No growth in 36 - 48 hours. Urine Culture,Comprehensive Final report (Normal) 35-Idp-556209:00 CBC W/Diff, Automated Comments: [facility] [address]rezmza[address] [place], [address] Absolute Lymph 1.49 {X10_3/ul} (Normal) Range: 0.83-4.51 [...] 4.2-5.4 WBC 6.2 K/mm3 (Normal) Range: 4.4-11.0 55-Ava-859656:00 Comprehensive Metabolic Profil Comments: [facility] [address]xfdjh[address] [place], [address] GAP 5 (Normal) Range: 5-15 [...] 7-18 GLU 93 mg/dL (Normal) Range: 70-110 32-Ice-379473:00 Free T3 Comments: [facility] [address]fgmrt[address] [place], [address] FREE T3 2.9 pg/mL (Normal) Range: 2.18-3.98 97-Hon-011682:00 T4 Free Direct Comments: [facility] [address]jv[address] [place], [place], [address] T4 FREE DIRECT 1.07 ng/dL (Normal) Range: 0.76-1.46 00-Rqj-181870:00 Thyroid Stim Hormone (TSH) Comments: [facility] Hdxeshocst3143[place], [id number] TSH 0.16 {uIU/mL} (Abnormal) Range: 0.358-3.74 1-Pvq-396121:38 HGB A1C (32853) Comments: PATIENT NOT FASTINGPERFORMED BY: [place] 5812970 [facility] [id number] Information: [id number] Hemoglobin A1c 5.7 % (Abnormal) Range: 4.8-5.6 Comments: . Pre-diabetes: 5.7 - 6.4 Diabetes: >6.4 Glycemic control for adults with diabetes: <7.0 David Arce BMP8 SPRCS (Normal) Comments: A courtesy copy of this report has been sent [facility].PATIENT WAS FASTINGPERFORMED BY: [facility]6370 [facility] [id number] :51 Default Comments: A hand-written panel/profile was received from your office. Inaccordance with the [employer] Ambiguous Test Code Policy dated August2002, we have completed your order by using the closest currentlyor formerl y recognized AMA panel. We have assigned Basic MetabolicPanel (8), Test Code #281030 to this request. If this is not thetesting you wished to receive on this specimen, please contact [facility] Client Inquiry/Technical Services Department to clarify thetest order. We appreciate your business. David Arce LP Default SPRCS (Normal) Comments: A courtesy copy of this report has been sent [facility].PATIENT WAS FASTINGPERFORMED BY: [place] 5812970 [facility] [id number] :51 Comments: A hand-written panel/profile was received from your office. Inaccordance with the [facility] IntegrationMiss[facility] Ambiguous Test Code Policy dated August2002, we have completed your order by using the closest currentlyor formerl y recognized AMA panel. We have assigned Lipid Panel,Test Code #104040 to this request. If this is not the testing youwished to receive on this specimen, please contact the [facility]Corp[facility] Inquiry/Techni alberto Services Department to clarify the testorder. We appreciate your business. 43-Zlf-188823:51 CBC With Differential/Platelet Comments: A courtesy copy of this report has been sent [facility].PATIENT WAS FASTINGPERFORMED BY: LabCoSaint Barnabas Behavioral Health CenterAsstre8561 [facility] [id number] Immature Grans (Abs) 0.0 {x10E3/uL} (Normal) Range: [...] 3.77-5.28 WBC 4.8 {x10E3/uL} (Normal) Range: 3.4-10.8 70-Hso-331227:51 Comp. Metabolic Panel (14) Comments: A courtesy copy of this report has been sent [facility].PATIENT WAS FASTINGPERFORMED BY: PrifloatSaint Barnabas Behavioral Health CenterKyzbpe6281 [facility] [id number] ALT (SGPT) 14 [iU]/L (Normal) Range: 0-32 [...] Glucose, Serum 101 mg/dL (Abnormal) Range: 65-99 84-Rsa-919939:51 Lipid Panel Comments: A courtesy copy of this report has been sent [facility].PATIENT WAS FASTINGPERFORMED BY: PrifloatSaint Barnabas Behavioral Health CenterAdclyc0032 [facility] [id number]; non-emergent till apt LDL Cholesterol Calc 120 [...] sent toT [facility].PATIENT WAS FASTINGPERFORMED BY: [facility]6370 [facility] [id number] 0:51 Range: 30.0-100.0 Comments: Vitamin D deficiency has been defined by the [facility] and an Endocrine Society practice guideline as alevel of serum 25-OH vitamin D less than 20 ng/mL (1,2).The Endocrine Society went on to further define vitamin Dinsufficiency as a level between 21 and 29 ng/mL (2).1. IOM (Froid of Medicine). 2010. Dietary reference intakes for calcium and D. [place]: The National Academies Press.2. Mateusz MF, Mary HUNTER, Enma KENDALL, et al. Evaluation, treatment, and prevention of vitamin D deficiency: an Endocrine Society clinical practice guideline. JCEM. 2010; 96(7):1911-30. 66-Dmw-026251:28 Sputum Culture (18686) Comments: PATIENT NOT FASTINGPERFORMED BY: [facility]6[address] [facility] [id number] Information: [id number] Result 1 STREPN (Abnormal) Comments: Streptococcus pneumoniaeHeavy [...] S Lower Respiratory Final report Culture (Abnormal) 17-Vvi-634022:49 Free T3 Comments: Has Patient had X-rays with Contrast this admission? NIs Patient on Heparin? [facility] Uyhysgzxcu1186 [facility] [place], [place], [id number] FREE T3 1.9 pg/mL (Abnormal) Range: 2.18-3.98 96-Hot-609968:49 T4 Free Direct Comments: Has Patient had X-rays with Contrast this admission? NIs Patient on Heparin? [facility] [address] [place], [place], [id number] T4 FREE DIRECT 0.84 ng/dL (Normal) Range: 0.76-1.46 68-Epu-528962:49 Thyroid Stim Hormone (TSH) Comments: Has Patient had X-rays with Contrast this admission? NIs Patient on Heparin? [facility] S[address]arrnnrd[address] [facility] [place], [address] TSH 0.04 {uIU/mL} (Abnormal) Range: 0.358-3.74 :43 CBC W/Diff, Automated Comments: Test performed at:[facility] Leimtswyvp7942 [facility] [place] [address] Absolute Lymph 2.39 {X10_3/ul} (Normal) [...] 4.2-5.4 WBC 8.0 K/mm3 (Normal) Range: 4.4-11.0 27-Yfl-772206:43 Comprehensive Metabolic Profil Comments: Test performed at:[facility] [address] [place] [address] GAP 7 (Normal) Range: 5-15 [...] 7-18 GLU 92 mg/dL (Normal) Range: 70-110 90-Svc-54537:34 Comprehensive Metabolic Profil Comments: ORDERED LIPID,CMPDR.SNEHA ORDERED TSH,HARLEEN,DHEATest performed at:[facility] [address]ulq[address] [place], [place] [address] GAP 11 (Normal) Range: 5-15 CO2 25.0 [...] Comments: Please note revised CREATININE reference range imhhydszl49/22/2015. BUN 6 mg/dL (Abnormal) Range: 7-18 GLU 97 mg/dL (Normal) Range: 70-110 29-Dbq-53577:34 DHEA Sulfate Comments: Has Patient had Radioactive Injection for X-ray?: NTest performed at:[facility] Pxplxdlqor9750 [place] [address] DHEA SULF 4020 26.8 ug/dL (Abnormal) Range: 41.2-243.7 Comments: Performed at: [facility] [id number] Director: Sean Daniel PhD, Phone: [phone] 80-Rph-00836:34 Lipid Profile Comments: ORDERED LIPID,CMPDR.SNEHA ORDERED TSH,HARLEEN,DHEATest performed at:[facility] Zgbzemenij4236 [place] [address] VLDL 14 mg/dL (Normal) Range: [...] :34 Testosterone, Serum Total Comments: Test performed at:[facility] Kwgejqcceh0791 [facility] [place] [address] Testosterone 20 ng/dL (Normal) Range: 14-76 95-Rtg-64902:34 Thyroid Stim Hormone (TSH) Comments: ORDERED LIPID,CMPDR.SNEHA ORDERED TSH,HARLEEN,DHEATest performed at:[facility] Jvfbnavhhg9844 [facility] [place] [address] TSH < 0.01 {uIU/mL} (Abnormal) Range: 0.358-3.74 54-Sdr-058060:12 CBC W/Diff, Automated Comments: Test performed at:[facility] Ttyguyzypa8291 [facility] [place] [address] Absolute Lymph 1.81 {X10_3/ul} (Normal) [...] 4.2-5.4 WBC 6.0 K/mm3 (Normal) Range: 4.4-11.0 31-Nsy-582451:12 Comprehensive Metabolic Profil Comments: Test performed at:[facility] Gtqrhhghtc8932 [place] [address] GAP 6 (Normal) Range: 5-15 [...] had Radioactive Injection for X-ray?: NTest performed at:[facility] Nagsbubkyt[address] [facility] [place] [address] DHEA SULF 4020 22.6 ug/dL (Abnormal) Range: 41.2-243.7 Comments: Performed at: - [facility] [id number] [place], [place] [id number] Director: Omer Stout PhD, Phone: [phone] :36 Free T3 Comments: Has Patient had X-rays with Contrast this admission? ??NIs Patient on Heparin? ??NTest performed at:[facility] [address] ??[place], [place] ??[address] FREE T3 4.7 pg/mL (Abnormal) Range: 2.18-3.98 :36 T4 Free Direct Comments: Has Patient had X-rays with Contrast this admission? NIs Patient on Heparin? NTest performed at:[facility] [address] [place] [address] T4 FREE DIRECT 1.54 ng/dL (Abnormal) Range: 0.76-1.46 :36 Thyroid Stim Hormone (TSH) Comments: Has Patient had X-rays with Contrast this admission? NIs Patient on Heparin? NTest performed at:[facility] [address] [place] [address] TSH < 0.01 {uIU/mL} (Abnormal) Range: 0.358-3.74 :36 Vitamin D,25 Hydroxy Comments: Test performed at:[facility] [address] [place] [address] Vitamin D 25-OH 34.0 ng/mL (Normal) Comments: Vitamin D 25(OH) Status Range Deficiency <20 ng/mL (50nmol/L) Insuffciency 20 - 30 ng/mL (50 - 75 nmol/L) Sufficiency 30 - 100 ng/mL (75 - 250 nmol/L) Toxicity >100 ng/mL (>250 nmol/L) :02 CBC W/Diff, Automated Comments: Test performed at:[facility] [address] [place] [address] ; non- emergent till apt [...] 4.2-5.4 WBC 6.0 K/mm3 (Normal) Range: 4.4-11.0 02-Juo-29581:02 Comprehensive Metabolic Profil Comments: Test performed at:[facility] [address] [place], [place] [address] GAP 7 (Normal) Range: 5-15 CO2 28.0 [...] 7-18 GLU 93 mg/dL (Normal) Range: 70-110 33-Kel-34202:02 Lipid Profile Comments: Test performed at:[facility] [address] [place] [address] VLDL 14 mg/dL (Normal) Range: 5-40 [...] 200-240 mg/dL Borderline >240 mg/dL High Risk 12-Jiq-447707:09 CBC W/Diff, Automated Comments: Test performed at:[facility] Fwpeftpvdi2657 [place] [address] ; handled by kerri Absolute [...] 4.2-5.4 WBC 8.0 K/mm3 (Normal) Range: 4.4-11.0 83-Hhg-851589:09 Comprehensive Metabolic Profil Comments: Test performed at:[facility] [address] [place] [address] ; vellenki GAP 6 (Normal) Range: 5-15 [...] CHOL 168 mg/dL (Normal) Comments: <200 mg/dL Qzwyaulkq874-385 mg/dL Borderline>240 mg/dL High Risk 05-Fks-019659:51 CBCD ALC 2.36 {X10_3/ul} (Normal) Range: 0.83-4.51 [...] 4.2-5.4 WBC 8.0 K/mm3 (Normal) Range: 4.4-11.0 32-Gia-090910:51 CMP Comments: DR VILLAFANA ORDERED CBCD CMP [...] 7-18 GLU 89 mg/dL (Normal) Range: 70-110 93-Cpg-623349:51 CORTU Comments: Has Patient had Radioactive Injection for X-ray?: N tCORTU 9 ug/L (Normal) qLLFOC62 39 {ug/24_hr} (Normal) Range: 0-50 15-Clg-876773:51 DHEA 19.8 ug/dL (Abnormal) Comments: Has Patient had Radioactive Injection for X-ray?: N Range: 41.2-243.7 Comments: Performed at: [address] [id number] Director: Eusebio Live MD, Phone: [phone] at: [address], [place], [place] [address]Ikl Director: Omer Stout PhD, Phone: [phone] 98-Fga-919886:51 FT3 2.2 pg/mL (Normal) Comments: DR VILLAFANA ORDERED CBCD CMP ONLYHas Patient had X-rays with Contrast this admission? N Range: 2.18-3.98 72-Kuc-961663:51 METAU Comments: Has Patient had Radioactive Injection for X-ray?: N tMETA 40 ug/L (Normal) tMETA24 172 {ug/24_hr} (Normal) Range: 45-290 Comments: (Hypertensive) >17 years 11 months: 35 - 460 tNORM24 292 {ug/24_hr} (Normal) Range: 82-500 Comments: (Hypertensive) >17 years 11 months: 110 - 1050 tNORM 68 ug/L (Normal) 19-Zqp-445155:51 T4F 0.98 ng/dL (Normal) Comments: DR VILLAFANA ORDERED CBCD CMP ONLYHas Patient had X-rays with Contrast this admission? N Range: 0.76-1.46 27-Zdt-692602:51 TSH 0.66 {uIU/mL} (Normal) Comments: DR VILLAFANA ORDERED CBCD CMP ONLYHas Patient had X-rays with Contrast this admission? N Range: 0.358-3.74 21-Tip-697575:51 VITD 51.8 mg/mL (Normal) Comments: Vitamin D 25(OH) Status RangeDeficiency <20 ng/mL (50nmol/L)Insuffciency 20 - 30 ng/mL (50 - 75 nmol/L)Sufficiency 30 - 100 ng/mL (75 - 250 nmol/L)Toxicity >100 ng/mL (>250 nmol/L) 4-Wlz-046427:01 URINE ARELY CULTURE-SPRING COL Comments: PATIENT NOT FASTINGPERFORMED BY: [facility] [address] [id number] Information: SRC:UR [id number] COUNT ([id number]) Result 1 NG36 (Normal) Comments: No growth in 36 - 48 hours. Urine Culture,Comprehensive Final report (Normal) 9-Ubp-825427:44 Urinalysis, Office (43311) UA - LEUKOCYTE ESTERASE Negative (Normal) UA [...] X-ray?: N Range: 41.2-243.7 Comments: Performed at: [address] [id number] Director: Sterling Porter MD, Phone: [phone] :[phone] FT3 2.4 pg/mL (Normal) Comments: LIPID RUBI [facility] TSH T4F T3F VITD DHEA Range: 2.18-3.98 27-Aug-20139:00 LIPID Comments: LIPID RUBI [facility] TSH T4F T3F VITD DHEA [...] CHOL 235 mg/dL (Abnormal) Comments: <200 mg/dL Vndmzqmiv323-944 mg/dL Borderline>240 mg/dL High Risk :00 T4F 0.98 ng/dL (Normal) Comments: LIPID RUBI [facility] TSH T4F T3F VITD DHEA Range: 0.76-1.46 :00 TSH 0.16 {uIU/mL} (Abnormal) Comments: LIPID RUBI [facility] TSH T4F T3F VITD DHEA Range: 0.358-3.74 :00 VITD 56.0 mg/mL (Normal) Comments: Vitamin D 25(OH) Status RangeDeficiency <20 ng/mL (50nmol/L)Insuffciency 20 - 30 ng/mL (50 - 75 nmol/L)Sufficiency 30 - 100 ng/mL (75 - 250 nmol/L)Toxicity >100 ng/mL (>250 nmol/L) :54 OS 273 {mOsm/KG} (Abnormal) Range: 275-295 :54 [facility] 268 {mOsm/KG} (Normal) Comments: OSMOLALITY URINE REFERENCE XEJMUOABQ77-nohu Urine 300 - 900 mOsm/kgRandom Urine 50 - 1400 mOsm/kgAfter 12 Hr fluid restriction >850 mOsm/kg 57-Pvx-472675:31 24HULYT Comments: ST 07/25/13 1130AM CREATININE AND SODIUM ONLYST 1130AM uCL24 63 {mmol/24h} (Abnormal) Range: 110-250 CLU 14 mmol/L (Normal) KU 15.5 mmol/L (Normal) uK24 70.1 {mmol/24h} (Normal) Range: 25-125 uNA24 72 {mmol/24h} (Normal) Range: 40-220 EMELI 16 mmol/L (Normal) uLYTV 4525 mL (Normal) 58-Ibn-691278:31 UCRE Comments: ST 07/25/13 1130AM CREATININE AND SODIUM ONLYST 1130AM UCCT 24.0 {HOURS} (Normal) UCRE24 1.2 {g/24_hr} (Normal) Range: 0.6-1.5 UCTV 4.53 L (Normal) URCREAT 26.8 mg/dL (Normal) 76-Guh-731358:30 CAU Comments: ST 07/25/13 1130AMST 07/25/130AMComments: qp8668 24 hr sodium urine tCAU24 90.0 {mg/24_hr} (Normal) Range: 100.0-300.0 Comments: Reference Semol464.0 - 300.0Total volumne: 4525 ml/24hrPerformed at: [facility] [id number] Director: Sterling Porter MD, Phone: [phone] CAUR 2.1 mg/dL (Normal) 67-Amz-151846:18 CBCD ALC 2.09 {X10_3/ul} (Normal) Range: 0.83-4.51 [...] 4.2-5.4 WBC 7.0 K/mm3 (Normal) Range: 4.4-11.0 30-Ucp-880484:18 CMP Comments: Comments: ml6580 24 hr sodium urine GAP 8 (Normal) [...] N Range: 41.2-243.7 Comments: Performed at: - [facility] [id number] Director: Sterling Porter MD, Phone: [phone] :31 T4F 1.03 ng/dL (Normal) Range: 0.76-1.46 [...] CHOL 176 mg/dL (Normal) Comments: <200 mg/dL Bpqvpjxuu052-290 mg/dL Borderline>240 mg/dL High Risk :17 T4F [...] Galeana M.D.November 02, 2012 at 4:00:42 PM [id number] Signed GP/GP If you are the referring physician and would like to consult with theradiologist who provided this interpretation, please contact Luis Angel Quintana at [phone]. If this radiologist is un available, youwill be directed to another radiologist to assist. If you are a patient with a question regarding this report, pleasecontactyour referring physician directly. Professional Interpretation P rovided By: [employer], Phone , These documents contain legally protected [...] Galeana M.D.November 02, 2012 at 3:22:08 PM [id number] Signed GP/GP If you are the referring physician and would like to consult with theradiologist who provided this interpretation, please contact Luis Angel Quintana at [phone]. If this radiologist is unavailable, youwil l [...] 11/02/12 1537 Sign by: Barrera Galeana MD 52-Vmm-96223:00 ABDOMEN/PELVIS WITHOUT CONT Radiology Report See Note [...] Galeana M.D.September 14, 2012 at 8:22:23 AM [id number] Signed GP/GP If you are the referring physician and would like to consult with theradiologist who provided this interpretation, please contact Luis Angel Quintana at [phone]. If this radiologist is unavailable, youwill be directed to another radiologist to assist. If you are a patient with a question regarding this report, pleasecontactyour referring niecy yang directly. Professional Interpretation Provided By: [employer], Phone , These documents contain legally protected [...] on 09/14/12824 Sign by: Barrera Galeana MD 57-Glo-565403:15 URINE ARELY CULTURE-IDENTIFICATN Comments: PATIENT NOT FASTINGPERFORMED BY: [facility] Qajcne7132 [facility] [id number] Information: ADD [id number] ([id number]) Result 1 NG36 (Normal) Comments: No growth in 36 - 48 hours. Urine Culture,Comprehensive Final report (Normal) 34-Xcq-995348:03 Urinalysis, Office (97445) UA - BILIRUBIN Negative (Normal) UA - BLOOD Non Hemolyzed Trace (Normal) UA - GLUCOSE Negative (Normal) UA - KETONES Negative mg/dL (Normal) UA - LEUKOCYTE ESTERASE Negative (Normal) UA - NITRITE Negative (Normal) UA - PH 7.0 (Normal) UA - PROTEIN Negative mg/dL (Normal) UA - SPECIFIC GRAVITY 1.010 (Normal) URINE UROBILINGN SPRING TIMED Normal mg/dL (Normal) 62-Dev-397300:14 CBCMD ANC 3.2 3/uL (Normal) Range: 2.0-7.7 [...] 4.2-5.4 WBC 5.9 {k/mm3} (Normal) Range: 4.4-11.0 99-Fkj-928687:14 CMP GAP 8 (Normal) Range: 5-15 CO2 [...] 7-18 GLU 86 mg/dL (Normal) Range: 70-110 12-Keo-485600:14 FT3 3.5 pg/mL (Normal) Range: 2.18-3.98 34-Cis-471558:14 LIPID VLDL 12 mg/dL (Normal) Range: 5-40 [...] CHOL 206 mg/dL (Abnormal) Comments: <200 mg/dL Cwqvgoade839-768 mg/dL Borderline>240 mg/dL High Risk 06-Gzk-484047:14 T4F 1.17 ng/dL (Normal) Range: 0.76-1.46 32-Dbc-461240:14 TSH 0.02 {uIU/mL} (Abnormal) Range: 0.358-3.74 64-Fhv-594324:14 VITD 39.9 ng/mL (Normal) Comments: Vitamin D 25(OH) Status RangeDeficiency <20 ng/mL (50nmol/L)Insufficiency 20 - 30 ng/mL (50 - 75 nmol/L)Sufficiency 30 - 100 ng/mL (75 - 250 nm ol/L)Toxicity >100 ng/mL (250 nmol/L)Effective 201222-Jun-201202-Qzo-641878:23 BILAT SCRN DIGITAL & CAD Radiology Report [...] Galeana M.D.June 22, 2012 at 2:15:23 PM [id number] Signed GP/GP If you a re the referring physician and would like to consult with theradiologist who provided this interpretation, please contact Luis Angel Quintana at [phone]. If this radiologist is unavailable, you will [...] GLU 4 HR GLU GTT-4 HOUR from 0426:V15955R. 11:43 (Abnormal) Range: 70-110 22-Jun-2012 glu gtt3 36 mg/dL Comments: 4HR GTT GLU 3 HR GLU GTT-3 HOUR from 0426:R70447S. 10:50 (Abnormal) Range: 70-110 Comments: CRITICAL VALUE REPEATED AND VERIFIED. CALLED TO ANUEL BENTLEY06/22/12 MARGY SYKES.RESULTS READ BACK BY SAME . 22-Jun-2012 glu gtt2 84 mg/dL (Normal) Comments: 4HR GTT GLU 2 HR GLU GTT-2 HOUR from 0426:O47344R. 9:50 Range: 70-120 22-Jun-2012 glu gtt1 118 mg/dL Comments: 4HR GTT GLU 1 HR GLU GTT-1 HOUR from 0426:W68568T. 8:50 (Abnormal) Range: 120-170 22-Jun-2012 glu gtt.5 140 mg/dL Comments: 4HR GTT GLU 1/2 HR GLU GTT-30 min. from 6:K15892I. 8:20 (Normal) Range: 110-170 93-Ohj-85280:40 BGM Comments: 4HR GTT FASTING GLU GTT-FASTING from 0426:S80836L. glu gttf 94 mg/dL (Normal) Range: 70-110 Comments: GLUCOSE TOLERANCE TEST Reference IntervalNon- AdultsFasting 70 - 98999 minutes 110 - 1701 hour 120 - 1702 hour 70 - 1203 hour 70 - 1104 hour 70 - 1105 hour 70 - 110 BGM 97 mg/dL (Normal) Range: 70-110 Comments: MANAGEMENT OF PATIENT CARE PER NURSING PROTOCOLNo Action Required0 :40 CBCD Comments: DR DAILY ORDERED [id number] TRES ORDERED CMP CBCD ANC 2.2 3/uL [...] 4.4-11.0 :40 CMP Comments: DR DAILY ORDERED [id number] VILLAFANA ORDERED CMP CBCD GAP 8 (Normal) [...] 7-18 GLU 93 mg/dL (Normal) Range: 70-110 95-Mkt-02395:40 GTT4 Comments: DR DAILY ORDERED [id number] VILLAFANA ORDERED CMP CBCD 29-May-20129:31 CBC WITH MANUAL DIFF Comments: PATIENT NOT FASTINGPERFORMED BY: [facility] CenterOuifrz0358 [facility] [id number] Information: [id number] (68873) Immature Grans (Abs) 0.0 {x10E3/uL} (Normal) Range: [...] 9.0 {x10E3/uL} (Normal) Range: 4.0-10.5 :31 TSH (75865) Comments: PATIENT NOT FASTINGPERFORMED BY: [facility]CoSaint [facility] CenterVcneop6461 [facility] [id number] TSH 6.430 {uIU/mL} (Abnormal) Range: 0.450-4.500 :31 EBV Panel (69309) Comments: PATIENT NOT FASTINGPERFORMED BY: [facility] CenterNunfyx7491 [facility] [id number] Interpretation: [facility] (Normal) Comments: EBV Interpretation Chart . [...] 5:28 (Abnormal) Comments: Results confirmed ondilution.Performed at: [address] [id number] Director: Omer Stout PhD, Phone: [phone] TSH 0.90 {uIU/mL} Range: 0.358-3.74 5:28 (Normal) 0-Oil-158462:59 Urinalysis, Office (74372) UA - BILIRUBIN Negative (Normal) UA - BLOOD Hemolyzed Trace (Normal) UA - GLUCOSE Negative (Normal) UA - KETONES Negative mg/dL (Normal) UA - LEUKOCYTE ESTERASE Negative (Normal) UA - NITRITE Negative (Normal) UA - PH 7.0 (Normal) UA - PROTEIN Negative mg/dL (Normal) UA - SPECIFIC GRAVITY 1.010 (Normal) URINE UROBILINGN SPRING TIMED Normal mg/dL (Normal) 6-Nxa-535034:11 ARELY CULTURE-OTHER (16143) Comments: PATIENT NOT FASTINGPERFORMED BY: [address] [id number] Information: SRC:THRT [id number] Result 1 RRF (Normal) Comments: Routine respiratory kaylene Upper Respiratory Culture Final report (Normal) 1-Mqp-033727:58 Rapid Strep Test, Office (13050) Rapid Strep Test, Office Negative (Normal) 9-Mir-897096:47 Urinalysis, Office (07604) UA - BILIRUBIN Negative (Normal) UA - BLOOD Hemolyzed Trace (Normal) UA - GLUCOSE Negative (Normal) UA - KETONES Negative mg/dL (Normal) UA - LEUKOCYTE ESTERASE Negative (Normal) UA - NITRITE Negative (Normal) UA - PH 6.0 (Normal) UA - PROTEIN Negative mg/dL (Normal) UA - SPECIFIC GRAVITY 1.010 (Normal) URINE UROBILINGN SPRING TIMED Normal mg/dL (Normal) 4-Xwu-859243:11 URINE ARELY CULTURE (SPRING Comments: PATIENT NOT FASTINGPERFORMED BY: [facility] Vupvgc3679 [facility] [id number] Information: SRC:UR [id number] COL COUNT) ([id number]) Result 1 MUG (Normal) Comments: Mixed urogenital zcaka103 Colonies/mL Urine Final report (Normal) Culture,Comprehensive 75-Omi-226982:1 ISAIAS 8.59 ug/dL (Normal) Comments: COMMENTS: FAX RESULTS TO DR. KEVIN HARTMAN DRAW 0 Range: 3.09-22.40 Comments: Adult (AM) 4.30 - 22.40 ug/dL Adult (PM) 3.09 - 16.66 ug/dL 76-Xvb-76131:40 ISAIAS 10.40 ug/dL (Normal) Comments: COMMENTS: FAX [...] (Normal) Range: 70-110 Comments: RESULTS FAXED TO [phone] 01/13/12 0934 MARINE TOURE.RESULTS FAXED TO [phone] 01/13/12 0959 MARINE TOURE. :25 ISAIAS 13.11 [...] Range: 0-34 Comments: Results confirmed ondilution.Performed at: [place] [id number] Director: Omer Stout PhD, Phone: [phone] :[phone] TSH 5.66 {uIU/mL} (Abnormal) Comments: COMMENTS: [...] ORDERED LIPID,CMP,TSH,CBCMDDR VELLANKI ORDRED CMP,CBCD Range: 0.358-3.74 7-Ixj-424765:46 MYOCARD PERF STRESS/REST MULT Radiology Report See [...] 12/05/11 0829 Sign by: Uzair Retana MD 56-Xbu-164751:42 BRAIN W/WO CONTRAST Radiology Report See Note [...] Soto M.D.November 16, 2011 at 2:50:07 PM [id number] Signed LL/LL If you are the referring physician and would like to consult with theradiologist who provided this interpretation, please contact Shahla Weiss M.D. at . If this radiologist is unavailable, you willbe directed to another radiologist to assist. If you are a patient with a question regarding this report, pleasecontactyour referring physician fabiana fuentes. Professional Interpretation Provided By: [employer], Phone , These documents contain legally protected [...] 11/16/11 1457 Sign by: SHAHLA SOTO MD 08-Ygz-040296:25 CHEST WITH CONTRAST Radiology Report See Note [...] Galeana M.D.November 14, 2011 at 3:11:11 PM [id number] Signed GP/GP If you are the referring physician and would like to consult with theradiologist who provided this interpretation, please contact Luis Angel Quintana at [phone]. If this radiologist is unavailable, youwill be directed to another radiologist to assist. If you are a patient with a question regarding this report, pleasecontactyour referring physician directly. Professional Interpretation Provided By: [employer], Phone , These documents contain legally protected [...] MD on 11/15/11 1543 Sign by: Barrera Galaena MD 11-Piz-705629:39 L/S SPINE,MIN 4 VIEWS Radiology Report See [...] Galeana M.D.November 14, 2011 at 3:46:06 PM [id number] Signed GP/GP If you are the referring physician and would like to co nsult with theradiologist who provided this interpretation, please contact Luis Angel Quintana at [phone]. If this radiologist is unavailable, youwill be directed to another radiologist to irene ruiz. If you are a patient with a question regarding this report, pleasecontactyour referring physician directly. Professional Interpretation Provided By: [employer], Phone ,Fax These documents contain legally protected [...] 11/15/11 1605 Sign by: Barrera Galeana MD 06-Ned-856658:38 CERV SPINE,MIN 4 VIEWS Radiology Report See [...] fusion at the C4, C5, and C5, Z7oozeaaaquh prosthetic disk material. 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 Normal visualized intervertebral neuroforamina. Normal visuali zed soft tissue structures. IMPRESSION:Anterior fusion at the C4-C5 and C6- C7 levels. Signed:Barrera Galeana M.D.November 14, 2011 at 3:47:12 PM [id number] Signed GP/GP If you ar e the referring physician and would like to consult with theradiologist who provided this interpretation, please contact Luis Angel Quintana at [phone]. If this radiologist is unavailable, youw ill [...] on 11/14/111553 Sign by: Barrera Galeana MD 97-Vov-715159:38 HIP, MIN 2 VIEWS Radiology Report See [...] Galeana M.D.November 14, 2011 at 3:48:20 PM [id number] Signed GP/GP If you are the referring physician and would like to consult with theradiologist who provided this interpre tation, please contact Luis Angel Quintana at [phone]. If this radiologist is unavailable, youwill be directed to another radiologist to assist. If you are a patient with a question regarding t his report, pleasecontactyour referring physician directly. Professional Interpretation Provided By: [employer], Phone , These documents contain legally protected [...] or Pulmonary Embolism (PE)RESULTS CALLED TO YOVANNY BROWN;Sean 11/14/11 ROSIE GIBSON.REPORT READ BACK BY SAME [...] Galeana M.D.November 14, 2011 at 3:48:08 PM [id number] Signed GP/GP If you are the referring physician and would like to consult with ld gastelumogjimbo who provided this interpretation, please contact Luis Angel Quintana at [phone]. If this radiologist is unavailable, youwill be directed to another radiologist to assist. If you are a patient with a question regarding this report, pleasecontactyour referring physician directly. Professional Interpretation Provided By: [employer], Phone , These document s contain legally [...] 11/15/11 1608 Sign by: Barrera Galeana MD 2-Evb-108508:42 JACQUI Comments: DR BROWN ORDERED LIPID TSH CMPDR VELLANKI ORDERED CMP CBCD DNA JACQUI CHERIE SCL-70 SSA/SSBENA ANTICENTROMERE taANA 45 AU/mL (Normal) [id number] ANEX Comments: DR BROWN ORDERED LIPID TSH CMPDR VELLANKI ORDERED CMP CBCD DNA JACQUI CHERIE SCL-70 SSA/SSBENA ANTICENTROMERE taANA COMMENT (Normal) Comments: TESTING INTERPRETATIONSPOSITIVE: > 120EQUIVOCAL: 100 - 120NEGATIVE: < 100 taRNP 29 AU/mL (Normal) taSM 32 AU/mL (Normal) [id number] ANTIJO1 Comments: [address] BROWN ORDERED LIPID TSH CMPDR VELLANKI ORDERED CMP CBCD DNA JACQUI CHERIE SCL-70 SSA/SSBENA ANTICENTROMERE taJO1 17 AU/mL (Normal) 8-Saq-578619:42 CBCD ANC 3.9 3/uL (Normal) Range: 2.0-7.7 [...] 4.2-5.4 WBC 6.2 K/mm3 (Normal) Range: 4.4-11.0 4-Bmi-561242:42 CENTB Comments: DR BROWN ORDERED LIPID TSH CMPDR VELLANCHING ORDERED CMP CBCD DNA JACQUI CHERIE SCL-70 SSA/SSBENA ANTICENTROMERE taCENTB 6 AU/mL (Normal) 6-Xci-500615:42 CMP Comments: DR BROWN ORDERED LIPID TSH [...] 7-18 GLU 94 mg/dL (Normal) Range: 70-110 6-Wrc-414854:42 DNAAB Comments: DR BROWN ORDERED LIPID TSH CMPDR VELLANKI ORDERED CMP CBCD DNA JACQUI CHERIE SCL-70 SSA/SSBENA ANTICENTROMERE tadsDNA 5 {IU/mL} (Normal) 7-Nth-364985:42 LIPID Comments: DR BROWN ORDERED LIPID TSH [...] 200-240 mg/dL Borderline >240 mg/dL High Risk 2-Mgv-324588:42 SCL70 Comments: DR BROWN ORDERED LIPID TSH CMPDR VELLANKI ORDERED CMP CBCD DNA JACQUI CHERIE SCL-70 SSA/SSBENA ANTICENTROMERE taSCL70 45 AU/mL (Normal) 0-Bwf-531279:42 SSA Comments: DR BROWN ORDERED LIPID TSH CMPDR VELLANKI ORDERED CMP CBCD DNA JACQUI CHERIE SCL-70 SSA/SSBENA ANTICENTROMERE taSSA 31 AU/mL (Normal) 3-Iqi-088529:42 SSB Comments: DR BROWN ORDERED LIPID TSH CMPDR VELLANKI ORDERED CMP CBCD DNA JACQUI CHERIE SCL-70 SSA/SSBENA ANTICENTROMERE taSSB 34 AU/mL (Normal) 9-Miu-418316:42 TSH 11.70 {uIU/mL} (Abnormal) Comments: DR BROWN ORDERED LIPID TSH CMPDR VELLANKI ORDERED CMP CBCD DNA JACQUI CHERIE SCL-70 SSA/SSBENA ANTICENTROMERE Range: 0.358-3.74 54-Bzk-53294:36 ESOPHAGUS ONLY Radiology Report See Note (Normal) [...] Galeana M.D.September 13, 2011 at 9:19:02 AM [id number] ly Signed GP/GP If you are the referring physician and would like to consult with theradiologist who provided this interpretation, please contact Luis Angel Quintana at [phone]. If this radiolo gist is unavailable, youwill be directed to another radiologist to assist. If you are a patient with a question regarding this report, pleasecontactyour referring physician directly. Professional Interp retation Provided By: [employer], Phone , Dictated on 09/13/11 0834 by Wendy IRVIN,Kimranscribed on 09/13/11 0945 by ITS IMPORTSign by Barrera Galeana MD on 09/13/11945 Sign by: Barrera Galeana MD 80-Yuu-72967:47 CBCMD RBCM NORM C+C {NORMAL} (Normal) PE [...] :47 TSH 26.20 {uIU/mL} (Abnormal) Range: 0.358-3.74 0-Avq-326719:01 CHEST, PA AND LATERAL Radiology Report See [...] Signed GP/GP Professional Interpretation Provide d By: [employer]Ha[employer] [facility] RadiologyPatient[facility], , To consult with a radiologist regarding this report, please call our [id number] line @ Dictated on 03/10 1331 by Wendy IRVIN,AcrieleTranscribed on 06/28/11 1852 by ITS IMPORTSign by Barrera Galeana MD on 06/28/11 1853 Sign by: Barrera Galeana MD 58-Gsc-48493:32 THYROID Radiology Report See Note (Normal) Comments: [...] change has occurred in [facility]. IMPRESSION:1. These size of the thyroid gland is stable.2. 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 Signed:John Spencer M.D.June 24, 2011 at 4:51:02 PM EDTElectronically Signed DL/DL Professional Interpretation Provided By: [facility] [place] [facility], , To consult with a radiologist regarding t his report, please call our [id number] line @ Dictated on 06/24/11 1013 by John Spencer MDTranscribed on 06/24/11 1655 by ITS IMPORTSign by John Spencer MD on 06/24/11 165 Sign by: John Spencer MD 02-Gvh-65016:30 BILAT SCRN DIGITAL & CAD Radiology Report [...] EDTElectronically Signed GP/GP Professional Interpretation Provided By: [facility], , To consult with a radiologist regarding this report, please call our [id number] line @ Dictated on 06/24/11 0945 by [...] 7-18 GLU 94 mg/dL (Normal) Range: 70-110 07-Rsq-726623:46 EBGM tEBINT Comment (Normal) Comments: EBV Interpretation Chart . Interpretation VCA-IgM EA-IgG VCA-IgG NA-ABS . Susceptible - - - - Acute Infection + +or- +or- - Convalescent Phase +or- +or- + + Chronic or Reactivated - + + +or- Old Infection - - +or- + + Antibody Pr esent - Antibody AbsentPerformed at: [facility] [id number] Director: Iraida Willingham MD, Phone: [phone] EBNA > 8.0 {AI} (Abnormal) Range: 0.0-0.8 Comments: Negative <0.9 Equivocal 0.9 - 1.0 Positive >1.0 EBVG > 8.0 {AI} (Abnormal) Range: 0.0-0.8 Comments: Negative <0.9 Equivocal 0.9 - 1.0 Positive >1.0 EBEAG < 0.2 (Normal) Comments: Negative <0.9 Equivocal 0.9 - 1.0 Positive >1.0 EBVM < 0.2 {AI} (Normal) Range: 0.0-0.8 Comments: Negative <0.9 Equivocal 0.9 - 1.0 Positive >1.0 34-Klo-582301:28 CHEST, PA AND LATERAL Radiology Report See [...] radiologist regarding this report, please call our [id number] line @ Dictated on 06/07/11 1321 by Wendy IRVIN,Tomasa bed on 06/07/111407 by ITS IMPORTSign by Wendy IRVIN,Barrera on 06/07/111408 Sign by: Barrera Galeana MD CUT See Note (Normal) Comments: #1- PRESUMPTIVE FRANK ALBICANSNo beta-hemolytic streptococcus isolated. AMOUNT GROWTH RARE ORGANISM 1: YEAST 4:09 H.PYLORI 168043 < 0.9 U/mL (Normal) Range: 0.0-0.8 1:47 Comments: Negative <0.9 Indeterminate 0.9 - 1.0 Positive >1.0Performed at: CB - [facility] [address] [id number] Director: Iraida Willingham MD, Phone: [phone] 0-Seg-149655:34 CBCD,SMEAR DIFF MACROCYTE 1+ (Normal) RED CELL [...] 7-18 GLU 83 mg/dL (Normal) Range: 70-110 1-Ftp-053680:20 Urinalysis, Office (42334) UA - BILIRUBIN Negative (Normal) UA - [...] URINE CULTURE Culture exhibits no growth. (Normal) 7-Ajf-932352:07 CULTURE, THROAT See Note (Normal) Comments: AMOUNT [...] $ <=10 S VANCOMYCIN $ <=1 S 9-Ssz-725640:30 Rapid Strep Test, Office (60972) Rapid Strep Test, Office Negative (Normal) 18-Knn-378558:52 SPINE,CERVICAL WITHOUT CONTRAS Radiology Report See Note [...] on 07/21/10101 Sign by: Barrera Galeana MD 79-Kae-293316:22 CERV SPINE,MIN 4 VIEWS Radiology Report See Note (Normal) Comments: CLINICAL:Female, 49 years old. Neck pain. X-RAY EXAMINATION - CERVICAL SPINE TECHNIQUE:Five views of the cervical spine were obtained. COMPARISON:None FINDINGS:Normal craniovertebral junction. Normal anterior atlantoaxialarticulation. Normal odontoid process. There is straightening of the normal cervical lordosis. Normal vertebralbodies and posterior osseous elements. The transverse processes of Y2zxnbbhdedslp. There is multi-level degenerative disc space narrowing with endplatespondylosis. There is multi-level osseous foraminal stenosis at F9-E0jpvO6-C3, bilateral. Normal visualized soft tiss ue structures. [...] 07/14/10 1304 Sign by: SWATI HOLLIDAY MD 30-Bvn-42384:35 BILAT SCRN DIGITAL & CAD Radiology Report [...] on 06/22/102351 Sign by: MELISSA LEES MD 62-Uys-28506:34 DEXA BONE DENSITY STUDY (HP) Radiology Report See Note (Normal) Comments: CLINICAL:Female, 49 years old. The patient is a postmenopausal. EXAMINATION:DUAL ENERGY X-RAY ABSORPTIOMETRY / DEXA. TECHNIQUE:Bone Mineral Density (BMD) measurements of lumbar spine and bi lateralhipsw ere obtained using a Momail scanner.. COMPARISON:Comparison is made with prior study [...] on 06/22/101444 Sign by: Barrera Galeana MD 4-Oki-229639:14 Rapid Strep Test, Office (55204) Rapid Strep Test, Office Negative (Normal) 04-Jun-20100:00 [...] CBCD VITD Range: 0.358-3.74 :29 VIT D,25 67109 53.4 ng/mL (Normal) Comments: DR. BROWN ORDERED TSH LIPID CMP VITD CBCMDDR. NENITAKI CMP CBCD VITD Range: 32.0-100.0 Comments: Recent studies consider the lower limit of 32.0 ng/mL to ama threshold for optimal health.Fco GARCIA. J Nutr. 2004;135(2):317-22.Performed at: [address] Director: Iraida Willingham MD, Phone: [phone] 77-Oas-569855:30 LQD PAP [id number] PAPSMR Comment (Normal) Comments: The Pap smear [...] no HPV testing was performed. .Performed at: [address]Mar[address] [place]Minh, [place] [id number] Director: Nita Hernandez MD, Phone: [phone] COMM . (Normal) DIAGN Comment (Normal) Comments: NEGATIVE FOR INTRAEPITHELIAL LESION AND MALIGNANCY.CELLULAR CHANGES ASSOCIATED WITH ATROPHY ARE PRESENT.Satisfactory for evaluation.Kiran Gayle, Kitchen Work Supervisor ([facility]) :41 BONE SCAN WHOLE BODY Radiology [...] Report See Note (Normal) Comments: Exam Number: [id number] LINICAL:This is a 49-year-old female patient with [...] Report See Note (Normal) Comments: Exam Number: [id number] LINICAL:This is a 49 year old female [...] as noted above. Reported By: BARRERA GALEANA 4-Cmn-622134:41 THYROID (HP) Radiology Report See Note (Normal) Comments: Exam Number: [id number] LINICAL:This is a 49-year-old female patient with [...] described. Reported By: BARRERA GALEANA : ANTI-CCP [id number] 2 {units} (Normal) Range: 0-19 41 Comments: Negative <20 Weak positive 20 - 39 Moderate positive 40 - 59 Strong positive >59Performed at: BN - [facility] [address] [place], [place] [id number] Director: Eusebio Live MD, Phone: [phone] JACQUI DIR SEMI-QL JACQUI DIRECT 77 [...] CHOL 166 mg/dL (Normal) Comments: <200 mg/dL Qspqvszma606-674 mg/dL Borderline>240 mg/dL High Risk TRIG 85 mg/dL (Normal) Comments: Serum Triglycerides Reference IntervalNormal <150 mg/dLBorderline high 150 - 199 mg/dLHigh 200 - 499 mg/ dLVery High > or = 500 mg/dL 47-Ccl-871511:13 LIVER ALB 4.3 g/dL (Normal) Range: 3.4-5.0 ALK P 52 U/L (Normal) Range: 50-136 ALT 20 U/L (Normal) Range: 12-78 AST 11 U/L (Abnormal) Range: 15-37 D BILI 0.17 mg/dL (Normal) Range: 0.00-0.30 T BILI 0.80 mg/dL (Normal) Range: 0.00-1.00 T PROT 7.6 g/dL (Normal) Range: 6.4-8.2 17-Lcp-433612:13 TSH 0.49 {uIU/mL} (Normal) Range: 0.358-3.74 :13 VIT D,25 30561 63.3 ng/mL (Normal) Range: 32.0-100.0 Comments: Recent studies consider the lower limit of 32.0 ng/mL to ama threshold for optimal health.Fco GARCIA. J Nutr. 2004;135(2):317-22.Performed at: [place] [id number] Director: Iraida Willingham MD, Phone: [phone] 9-Mgz-607906:57 CHEST, PA AND LATERAL (MT) Radiology Report See Note (Normal) Comments: Exam Number: [id number] X-RAY EXAMINATION: CHEST CLINICAL:This is a 49-year-old [...] 47-70 WBC 6.7 K/mm3 (Normal) Range: 4.4-11.0 17-Wbj-49443:14 COMP METABOLIC GAP 7 (Normal) Range: 5-15 [...] CHOL 320 mg/dL (Abnormal) Comments: <200 mg/dL Ffzrdfnbo464-590 mg/dL Borderline>240 mg/dL High Risk TRIG 107 mg/dL (Normal) Comments: Serum Triglycerides Reference IntervalNormal <150 mg/dLBorderline high 150 - 199 mg/dLHigh 200 - 499 mg/ dLVery High > or = 500 mg/dL :14 T4 FREE DIRECT 0.70 ng/dL (Abnormal) Range: 0.76-1.46 :14 TSH 15.20 {uIU/mL} Range: 0.358-3.74 (Abnormal) 34-Pph-948151:01 BILAT SCRN DIGITAL & CAD Radiology Report See Note (Normal) Comments: Exam Number: [id number] MAMMOGRAM, BILATERAL SCREENING DIGITAL AND CAD HISTORYRoutine [...] mammograms werealso examined with computer-aided detection software ([employer] Reported By: MELISSA LEES M.D. Plan [...] Effects Indication: Other hyperlipidemia Planned Observations TSH (56952)Indication: Thyroid disorder On: 9-Xnq-933142:46 Request METABOLIC PANEL, COMPREHENSIVE (44629)Indication: Right flank pain On: 53-Yqq-954100:21 Request Comments: stat CBC W/AUTO DIFF WBC (06687)Indication: Right flank pain On: 01-Fzz-039965:21 Request Comments: stat CBC with auto diff (09459)Indication: Impaired fasting glucose On: 8-Rvl-191032:53 Request METABOLIC PANEL, COMPREHENSIVE (07438)Indication: Impaired fasting glucose On: 4-Zam-724986:53 Request HGB A1C (02227)Indication: Impaired fasting glucose On: 5-Osm-585702:53 Request LIPID PANEL (91394)Indication: Other hyperlipidemia On: 7-Rjd-505060:53 Request Vitamin D Hydroxy (68412)Indication: Vitamin D deficiency On: 00-Vgb-895318:10 Request LIPID PANEL (24726)Indication: Other hyperlipidemia On: 90-Cyc-769401:10 Request CBC with auto diff (28303)Indication: Impaired fasting glucose On: :08 Request METABOLIC PANEL, COMPREHENSIVE (22359)Indication: Impaired fasting glucose On: 08-Olo-399222:08 Request C-REACTIVE PROTEIN (68194)Indication: Left-sided face pain On: 19-Dtq-767130:08 Request SED RATE ERYTHROCYTE (53311)Indication: Left-sided face pain On: 56-Vtq-024640:08 Request HGB A1C (24050)Indication: Impaired fasting glucose On: 50-Sdl-495515:08 Request CBC, PLATELETS & MANUAL DIFF (06365)Indication: Fatigue On: 79-Boj-433285:44 Request EBV Panel (17491)Indication: Fatigue On: 54-Nsn-623751:44 Request LIPID PANEL (69044)Indication: Other hyperlipidemia On: 6-Lth-624590:00 Request CBC with auto diff (76040)Indication: Impaired fasting glucose On: 2-Ckn-564262:00 Request METABOLIC PANEL, COMPREHENSIVE (23239)Indication: Impaired fasting glucose On: 8-Lju-794252:00 Request HGB A1C (57393)Indication: Impaired fasting glucose On: 7-Qfr-559092:00 Request LIPID PANEL (50404)Indication: Other hyperlipidemia On: :37 Request TSH (THYROID STIMULATING HORMONE) (13991)Indication: Acquired hypothyroidism On: :37 Request CBC with auto diff (12418)Indication: Impaired fasting glucose On: :35 Request METABOLIC PANEL, COMPREHENSIVE (97799)Indication: Impaired fasting glucose On: :35 Request MICROALBUMIN: CREATININE RATIO (04814) AND (25755)Indication: Impaired fasting glucose On: :35 Request HGB A1C (97828)Indication: Impaired fasting glucose On: :35 Request CBC W/AUTO DIFF WBC (45780)Indication: Primary adrenocortical insufficiency On: 21-Gxu-899425:06 Request METABOLIC PANEL, COMPREHENSIVE (09711)Indication: Primary adrenocortical insufficiency On: 52-Apu-887506:06 Request LIPID PANEL (58792)Indication: Other hyperlipidemia On: :26 Request CBC with auto diff (10942)Indication: Impaired fasting glucose On: :26 Request METABOLIC PANEL, COMPREHENSIVE (64162)Indication: Impaired fasting glucose On: :26 Request HGB A1C (69417)Indication: Impaired fasting glucose On: 5-Jpx-276609:26 Request TSH (93907)Indication: Acquired hypothyroidism On: 58-Kwl-896241:59 Request Comments: 6 weeks RHEUMATOID FACTOR-QUANT (78672)Indication: Joint pain On: 68-Pon-920304:02 Request C-REACTIVE PROTEIN (70835)Indication: Joint pain On: 02-Zrk-352882:02 Request SED RATE ERYTHROCYTE (42684)Indication: Joint pain On: 00-Ntp-342462:02 Request URIC ACID BLOOD (94666)Indication: Joint pain On: 45-Wvo-344069:02 Request T3, FREE (TRIDOTHYRONINE) (28078)Indication: Acquired hypothyroidism On: :58 Request T4, FREE (THYROXINE) (78729)Indication: Acquired hypothyroidism On: 22-Esa-224367:58 Request TSH (23803)Indication: Acquired hypothyroidism On: :58 Request CBC W/AUTO DIFF WBC (38891)Indication: Edema, unspecified type On: :48 Request METABOLIC PANEL, COMPREHENSIVE (74643)Indication: Edema, unspecified type On: :48 Request SODIUM URINE (36073)Indication: Hyponatremia On: :30 Request Vitamin D Hydroxy (41323)Indication: Hypocalcemia On: : Request PARATHORMONE (31728)Indication: Hypocalcemia On: : Request PHOSPHORUS (03783)Indication: Hypocalcemia On: : Request METABOLIC PANEL, COMPREHENSIVE (90169)Indication: Hypocalcemia On: :30 Request T3, FREE (TRIDOTHYRONINE) (20104)Indication: Acquired hypothyroidism On: : Request T4, FREE (THYROXINE) (98611)Indication: Acquired hypothyroidism On: :20 Request TSH (08661)Indication: Acquired hypothyroidism On: :20 Request HGB A1C (06504)Indication: Impaired fasting glucose On: :17 Request MICROALBUMIN: CREATININE RATIO (88341) AND (04361)Indication: Impaired fasting glucose On: :17 Request METABOLIC PANEL, COMPREHENSIVE (26780)Indication: Impaired fasting glucose On: :17 Request T3, FREE (TRIDOTHYRONINE) (17489)Indication: Acute nonintractable headache, unspecified headache type On: :46 Request T4, FREE (THYROXINE) (21608)Indication: Acute nonintractable headache, unspecified headache type On: :46 Request TSH (13426)Indication: Acute nonintractable headache, unspecified headache type On: :46 Request TSH (17823)Indication: Acquired hypothyroidism On: :46 Request T4, FREE (THYROXINE) (20867)Indication: Acquired hypothyroidism On: :46 Request Metabolic Panel, Basic (55243)Indication: Hyponatremia On: :46 Request T3, FREE (TRIDOTHYRONINE) (89046)Indication: Acquired hypothyroidism On: :46 Request MICROALBUMIN: CREATININE RATIO (00213) AND (19783)Indication: Impaired fasting glucose On: :55 Request LIPOPROTEIN, BLD, BY NMR (54318)Indication: Other hyperlipidemia On: :55 Request METABOLIC PANEL, COMPREHENSIVE (30913)Indication: Osteoporosis On: 9-Ynh-765230:52 Request Vitamin D Hydroxy (36608)Indication: Osteopenia On: 20-Wxo-178871: Request CBC W/AUTO DIFF WBC (16700)Indication: Gastroesophageal reflux disease without esophagitis On: : Request METABOLIC PANEL, COMPREHENSIVE (84632)Indication: Other hyperlipidemia On: 35-Xeu-688498:03 Request LIPID PANEL (89023)Indication: Other hyperlipidemia On: :03 Request DHEA-S (DEHYDROEPIANDROSTERONE SULFATE) (20080)Indication: Adrenal disorder, other On: :29 Request VITAMIN D, 1, 25-DIHYDROXY (48149)Indication: Vitamin D deficiency On: :29 Request T4, TOTAL (74137)Indication: Acquired hypothyroidism On: :29 Request T3, TOTAL (TRIDOTHYRONINE) (78091)Indication: Acquired hypothyroidism On: :29 Request T3, FREE (TRIDOTHYRONINE) (65897)Indication: Acquired hypothyroidism On: :28 Request T4, FREE (THYROXINE) (18216)Indication: Acquired hypothyroidism On: :28 Request TSH (24824)Indication: Acquired hypothyroidism On: :28 Request T4, FREE (THYROXINE) (32261)Indication: Thyroid nodule On: 9-Rvv-500136:57 Request T3, FREE (TRIDOTHYRONINE) (58787)Indication: Thyroid nodule On: 0-Rjy-867123:57 Request TSH (10470)Indication: Thyroid nodule On: 2-Xgf-453586:57 Request T3, FREE (TRIDOTHYRONINE) (94888)Indication: Acquired hypothyroidism On: :39 Request Comments: forward to Dr Grimm Endocronologist, [place] T4, FREE (THYROXINE) (51761)Indication: Acquired hypothyroidism On: :39 Request Comments: forward to Mello [place]ologist, [place] TSH (51587)Indication: Acquired hypothyroidism On: :39 Request Comments: forward to Dr Grimm Endoccandiceologist, [place] DHEA (DEHYDROEPIANDROSTERONE) (79292)Indication: Adrenal disorder, other On: :39 Request Comments: forward to Mello Jordanologist, [place] CALCIFEDIOL (37274)Indication: Vitamin D deficiency On: :38 Request Comments: forward to Mello Jordanologist, [facility] METABOLIC PANEL, COMPREHENSIVE (55412)Indication: Other hyperlipidemia On: 22-Xar-513353:32 Request LIPID PANEL (71242)Indication: Other hyperlipidemia On: 59-Xhs-401635:32 Request CBC W/AUTO DIFF WBC (89273)Indication: Macrocytosis without anemia On: 22-Hcl-845860:53 Request METABOLIC PANEL, COMPREHENSIVE (69069)Indication: Other hyperlipidemia On: 95-Xdp-350304:53 Request LIPID PANEL (20068)Indication: Other hyperlipidemia On: 55-Dpb-379742:53 Request METABOLIC PANEL, COMPREHENSIVE (28025)Indication: Other hyperlipidemia On: 03-Kgl-980927:24 Request LIPID PANEL (20841)Indication: Other hyperlipidemia On: 55-Erp-274310:24 Request CULTURE, SPUTUM (53062)Indication: Cough On: 16-Wmv-621196:14 Request METABOLIC PANEL, COMPREHENSIVE (91588)Indication: Other hyperlipidemia On: 8-Anu-067481:02 Request LIPID PANEL (35849)Indication: Other hyperlipidemia On: 5-Inm-041287:02 Request CBC WITH MANUAL DIFF (23180)Indication: Upper Respiratory Infection On: :11 Request METABOLIC PANEL, COMPREHENSIVE (25811)Indication: Upper Respiratory Infection On: 8-Acq-959078:11 Request LIPID PANEL (18590)Indication: Other hyperlipidemia On: 6-Zbu-438359:11 Request LIPID PANEL (19868)Indication: Other hyperlipidemia On: :28 Request METABOLIC PANEL, COMPREHENSIVE (03974)Indication: Other hyperlipidemia On: 45-Loh-453145:28 Request Vitamin D Hydroxy (54343)Indication: Osteopenia On: 65-Fgq-112073:16 Request CBC WITH MANUAL DIFF (31369)Indication: Fatigue On: 38-Xyi-995573:16 Request METABOLIC PANEL, COMPREHENSIVE (31661)Indication: Fatigue On: :16 Request T3, FREE (TRIDOTHYRONINE) (06997)Indication: Acquired hypothyroidism On: :16 Request T4, FREE (THYROXINE) (10848)Indication: Acquired hypothyroidism On: :16 Request TSH (94333)Indication: Acquired hypothyroidism On: :16 Request LIPID PANEL (17194)Indication: Other hyperlipidemia On: 09-Uus-431438:15 Request T3, FREE (TRIDOTHYRONINE) (89229)Indication: Acquired hypothyroidism On: 21-Feb-2012 Request T4, FREE (THYROXINE) (10505)Indication: Acquired hypothyroidism On: 21-Feb-2012 Request TSH (34379)Indication: Acquired hypothyroidism On: 21-Feb-2012 Request Metabolic Panel, Basic (07446)Indication: Fatigue On: 38-Neq-058408:58 Request Anti-TPO Antibody (01092)Indication: Acquired hypothyroidism On: 03-Tnt-438002:56 Request T3, FREE (TRIDOTHYRONINE) (40016)Indication: Acquired hypothyroidism On: 72-Sfm-550360:56 Request T4, FREE (THYROXINE) (03658)Indication: Acquired hypothyroidism On: 27-Qtw-953651:56 Request TSH (29373)Indication: Acquired hypothyroidism On: 46-Dqa-271363:49 Request VITAMIN B-12 (CYANOCOBALAMIN) (70217)Indication: Macrocytosis without anemia On: 57-Myk-949876:49 Request TSH (93226)Indication: Palpitations On: 38-Pqg-43579:48 Request METABOLIC PANEL, COMPREHENSIVE (48599)Indication: Syncope On: :48 Request CBC WITH MANUAL DIFF (42895)Indication: Syncope On: :48 Request D-Dimer (57893)Indication: Syncope On: 75-Omj-49983:48 Request Comments: stat CBC WITH MANUAL DIFF (07463)Indication: inflammatory arthritis- following with valenke On: 35-Boy-262624:03 Request METABOLIC PANEL, COMPREHENSIVE (64668)Indication: inflammatory arthritis- following with valenke On: 48-Aga-191651:03 Request LIPID PANEL (49463)Indication: Other hyperlipidemia On: 23-Qod-640863:03 Request TSH (94942)Indication: Acquired hypothyroidism On: :56 Request TSH (41749)Indication: Acquired hypothyroidism On: 7-Rkq-911678:08 Request Comments: to be done in 8 weeks. METABOLIC PANEL, COMPREHENSIVE (19189)Indication: Dysphagia, unspecified dysphagia On: :52 Request LIPID PANEL (58894)Indication: Other hyperlipidemia On: :52 Request TSH (42821)Indication: Acquired hypothyroidism On: :52 Request TSH (16800)Indication: Acquired hypothyroidism On: 30-Ioc-233064:15 Request CULTURE, SPUTUM (49680)Indication: Cough On: 8-Tec-883551:52 Request Throat Culture (87777)Indication: Unspecified bacterial pneumonia On: 71-Awu-299557:00 Request Comments: swab tounge per order from Dr. Brown ARELY CULTURE-OTHER (61693)Indication: Unspecified bacterial pneumonia On: 50-Lsw-884377:43 Request EBV Panel (24726)Indication: Fatigue On: 17-Tkl-422334:41 Request METABOLIC PANEL, COMPREHENSIVE (28156)Indication: Fatigue On: 09-Wai-745262:41 Request CBC WITH MANUAL DIFF (38487)Indication: Fatigue On: 17-Pyr-715996:41 Request ARELY CULTURE-OTHER (40386)Indication: Pharyngitis, acute On: 90-Axj-781211:24 Request Rapid Strep Test, Office (27386)Indication: Pharyngitis, acute On: 70-Wkf-363988:24 Request CBC WITH MANUAL DIFF (92769)Indication: Anxiety On: :13 Request METABOLIC PANEL, COMPREHENSIVE (81443)Indication: Other hyperlipidemia On: :13 Request T4, FREE (THYROXINE) (94854)Indication: Acquired hypothyroidism On: :12 Request T3, FREE (TRIDOTHYRONINE) (59822)Indication: Acquired hypothyroidism On: :12 Request TSH (39371)Indication: Acquired hypothyroidism On: :12 Request LIPID PANEL (76586)Indication: Other hyperlipidemia On: :11 Request URINE ARELY CULTURE-SPRING COL COUNT (98271)Indication: Urinary frequency On: :21 Request METABOLIC PANEL, COMPREHENSIVE (04559)Indication: Gastroesophageal reflux disease without esophagitis On: :19 Request CBC WITH MANUAL DIFF (21291)Indication: Gastroesophageal reflux disease without esophagitis On: :19 Request HELICOBACTER PYLORI ANTIBODY PROFILE IgG, IgM, IgA (07657)Indication: Gastroesophageal reflux disease without esophagitis On: :13 Request CBC WITH MANUAL DIFF (28067)Indication: Preoperative examination On: :42 Request METABOLIC PANEL, COMPREHENSIVE (78843)Indication: Preoperative examination On: :42 Request PTT (Activated Partial Thromboplastin Time) (82842)Indication: Preoperative examination On: :42 Request PT (Prothrobim Time) (69704)Indication: Preoperative examination On: :42 Request URINALYSIS, W/ MICRO (38289)Indication: Preoperative examination On: :41 Request TSH (57027)Indication: Acquired hypothyroidism On: 30-Nuq-877348:41 Request LIPID PANEL ([id number])Indication: Other hyperlipidemia On: 47-Syf-921772:41 Request ARELY CULTURE-OTHER (42111)Indication: Pharyngitis, acute On: 7-Eqd-423129:30 Request ARELY CULTURE-OTHER ([id number])Indication: Pharyngitis, acute On: 9-Hxr-820040:14 Request Thin prep Pap (45473)Indication: Well woman exam On: 74-Lpq-57945:47 Request Thin prep Pap ([id number])Indication: Well woman exam On: 1-Hjz-342297:09 Request Vitamin D Hydroxy (00358)Indication: Osteopenia On: :24 Request CBC WITH MANUAL DIFF ([id number])Indication: 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 On: :24 Request METABOLIC PANEL, COMPREHENSIVE ([id number])Indication: 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 On: :24 Request LIPID PANEL ([id number])Indication: Other hyperlipidemia On: :24 Request TSH ([id number])Indication: Acquired hypothyroidism On: :23 Request Creatine Kinase Total (40206)Indication: Arthritis On: :06 Request METABOLIC PANEL, COMPREHENSIVE (24611)Indication: Arthritis On: : Request CCP ANTIBODY (06090)Indication: Arthritis On: : Request SED RATE ERYTHROCYTE (50625)Indication: Arthritis On: : Request C-REACTIVE PROTEIN ([id number])Indication: Arthritis On: : Request JACQUI (ANTINUCLEAR ANTIBODY) (26740)Indication: Arthritis On: : Request RHEUMATOID FACTOR-QUANT (20530)Indication: Arthritis On: : Request TSH (63205)Indication: Acquired hypothyroidism On: : Request HEPATIC FUNCTION PANEL (62780)Indication: Other hyperlipidemia On: : Request LIPID PANEL (94173)Indication: Other hyperlipidemia On: : Request Vitamin D Hydroxy (84954)Indication: Osteopenia On: :27 Request LIPID PANEL ([id number])Indication: Other hyperlipidemia On: :22 Request HEPATIC FUNCTION PANEL (63069)Indication: Other hyperlipidemia On: 9-Drs-785678:21 Request URINE ARELY CULTURE (SPRING COL COUNT) (45106)Indication: Abnormal urine On: :19 Request TSH ([id number])Indication: Acquired hypothyroidism On: :18 Request URINALYSIS, W/ MICRO (97241)Indication: Low back pain On: 08-Cyh-184335:50 Request T3, FREE (TRIDOTHYRONINE) (16124)Indication: Acquired hypothyroidism On: 97-Rez-846880:50 Request T4, FREE (THYROXINE) (60072)Indication: Acquired hypothyroidism On: :50 Request CBC WITH MANUAL DIFF (43521)Indication: Low back pain On: :49 Request METABOLIC PANEL, COMPREHENSIVE (30354)Indication: Family history of diabetes mellitus On: :49 Request LIPID PANEL (13285)Indication: Other hyperlipidemia On: :47 Request TSH ([id number])Indication: Acquired hypothyroidism On: :47 Request Planned Encounters [...] Martha A Fast DO, Martha A Comments: [id number]/20L arm, SCprefilled syringeMLONG ELECTROCARDIOGRAM, COMPLETE (ECG) On: 05-Dec-2017 Intent ([id number])By: Kevin SAMUEL Martha A Fast Comments: ekg showed normal sinus rhythym, normal axis, no acute st/t wave changes sinus ariana DO, Martha A MRI OF BRAIN WITH AND WITHOUT On: 01-Nov-2017 Intent CONTRAST ([id number])By: Kevin SAMUEL Martha Comments: dont schedule on or A Fast DO, Martha A Flu Vaccine (Quadrivalent) 18886Ue: On: 01-Nov-2017 Intent Fast DO, Martha A Fast DO, Martha A Comments: Lot: [id number]: 08/26/18Site: L dltd, IMDose prefilled syringegiven by: Kahlil reviewed and ABN signed Radiology - Forearm - RightBy: Fast On: 28-Jun-2017 Intent DO, Martha A Fast DO, Martha A DEXA SCAN AXIAL SKELETON ([id number])By: On: 28-Jun-2017 Intent Fast DO, Martha A Fast DO, Martha A Comments: august SCREENING DIGITAL TOMOSYNTHESIS OF On: 28-Jun-2017 Intent BREAST ([id number])By: Kevin SAMUEL Martha A Comments: august Fast DO, Martha A Radiology - Wrist - RightBy: Fast On: 28-Jun-2017 Intent DO, Martha A Fast DO, Martha A Comments: fall with outstrestched hand CT - Brain/Head (Without On: 28-Jun-2017 Intent Contrast)By: Martha Brown DO A Kevin Comments: stat- fall down steps now headache DO, Martha A INJECTION, PROLIA ([id number])By: Kevin On: 18-May-2017 Intent DO, Martha A Fast DO, Martha A Comments: prolia injection 1 prefilled syringelot: [id number]: 05/2019RA sub-qAD DEPENDENCY COUNSELOR CHEST XRAY, PA & LATERAL ([id number])By: On: 01-May-2017 Intent Fast DO, Martha A Fast DO, Martha A INFUSION, NORMAL SALINE SOLUTION , On: 21-Apr-2017 Intent 1000 CC (Special Coverage Comments: 2nd bag same lot same exp Instructions Apply. See MCM: 2048) ([id number])By: Martha Brown DO A Fast DO, Martha A INFUSION, NORMAL SALINE SOLUTION , On: 21-Apr-2017 Intent 1000 CC (Special Coverage Comments: Site:[address] [place] [address] [facility] Number of attemps:1Tolerated:wellLot/exp of NS [id number] 08/15Medication?: noMLONG, DEPENDENCY COUNSELOR Instructions Apply. See MCM: 2048) ([id number])By: Kevin SAMUEL, Martha A Fast DO, Martha A CHEST XRAY, PA & LATERAL ([id number])By: On: 21-Apr-2017 Intent Fast DO, Martha A Fast DO, Martha A Comments: 3 weeks Ultrasound - ThyroidBy: Kevin SAMUEL, On: 07-Mar-2017 Intent Martha A Fast DO, Martha A PNEUM VAC ADLT/IMUMNOSPR, SBC/INTRM On: 20-Dec-2016 Intent ([id number])By: Martha Brown DO A Kevin Comments: pnuemovax prefilled syringe injectionlot: [id number]: 04/2018L DELT IMpt tolerated wellAD DEPENDENCY COUNSELOR DO, Martha A Flu Vaccine (Quadrivalent) 82540Vv: On: 30-Nov-2016 Intent Fast DO, Martha A Fast DO, Martha A Comments: lot: [id number]: 08/14/17ite/route: L michael, IMamt: 0.5mlVIS and ABN signed when applicableChelsea, MILLIE ELECTROCARDIOGRAM, COMPLETE (ECG) On: 29-Nov-2016 Intent ([id number])By: Kevin SAMUEL, Martha A Kevin Comments: ekg showed normal sinus rhythym, normal axis, no acute st/t wave changes DO, Martha A INJECTION, PROLIA ([id number])By: Kevin On: 04-Nov-2016 Intent DO, Martha A Fast DO, Martha A Comments: Lot:[id number]:08/14/17Dose:0.5mLRoute:IMSite:L DltdGiven By:ZACH signed Nuclear Stress Test/Stress On: 01-Sep-2016 Intent SPECT/TreadmillBy: Fast DO, Martha A Fast DO, Martha A Aerosol Treatment (04519)By: Kevin On: 08-Aug-2016 Intent DO, Martha A Fast DO, Martha A SCREENING DIGITAL TOMOSYNTHESIS OF On: 08-Aug-2016 Intent BREAST ([id number])By: Kevin DO, Martha A Comments: end july [...] Martha A Fast DO, Martha A Comments: Lot:[id number]:02/13Dose:60mLRoute:sub qSite: l armGiven By:ZACH signed MRI OF BRAIN WITH AND WITHOUT On: 08-Feb-2016 Intent CONTRAST ([id number])By: Martha Brown DO Comments: try to get this week- A Kevin SAMUEL, Martha A Solu- Medrol Injection, 125mg On: 16-Dec-2015 Intent ([id number])By: Martha Brown DO A Kevin Comments: Lot:[id number]:04/2018Dose:125mgRoute:imSite:r hipGiven By:ZACH signed DO, Martha A Aerosol Treatment ([id number])By: Kevin On: 16-Dec-2015 Intent DO, Martha A Fast DO, Martha A Flu Vaccine (Quadrivalent) 60856Zk: On: 30-Nov-2015 Intent Kevin DO, Martha A Fast DO, Martha A Comments: Lot:[id number]:08/26/16Dose:0.5mLRoute:IMSite:L DltdGiven By:ZACH signed MRI LUMBAR SPINE W/O CONTRAST On: 01-Sep-2015 Intent ([id number])By: Fran Brown DOa A Kevin Comments: hx of spine surgery- has done pt and pain management and nsaids- getting weak ehl right DO, Martha A DEXA SCAN AXIAL SKELETON (32033)By: On: 06-Jul-2015 Intent Kevin DO Martha A Fast DO, Martha A MAMMOGRAM, SCREENING, BOTH BREAST On: 06-Jul-2015 Intent ([id number])By: Kevin SAMUEL Martha A Fast DO, Martha A Rocephon Injection, 1 Gm On: 06-Mar-2015 Intent ([id number])By: Kevin SAMUEL Martha A Kevin Comments: lot: [id number]: 04/27/17ite/route: RGM/IMamt: 1GVIS signed when applicableMILLIE Crespo DO, Martha A Radiology - ChestBy: Nicole KAYE, On: 09-Feb-2015 Intent Chantal Flu Vaccine (Quadrivalent) 46953Wy: On: 10-Dec-2014 Intent Fast , Martha A Fast DO, Martha A Comments: Lot #:[id number] date: 07/2015Amount given:prefilled syringeSite given:L Dltd, IMGiven by: WINNIE Hart and ABN signed ADMINISTRATION OF INFLUENZA VIRUS On: 10-Dec-2014 Intent VACCINE ([id number])By: Kevin SAMUEL, Martha A Kevin DO, Martha A BILATERAL MAMMOGRAMS ([id number])By: On: 17-Jun-2014 Intent Fast DO, Martha A Fast DO, Martha A Comments: screening FLU VAC, SPLIT, >3 YEARS, INTRAMUSC On: 02-Dec-2013 Intent ([id number])By: Martha Brown DO A Kevin Comments: Lot #:[id number] date:10/2015Amount given:0.5mlRoute: IMSite given: left deltoidGiven by: GARETT Washington DO, Debra A IMMUNIZ ADMNIN, 1 VAC, SNGL/COMBO On: 02-Dec-2013 Intent ([id number])By: Visit, Nurse CT OF RIGHT HIP WITH CONTRAST On: 30-Sep-2013 Intent ([id number])By: Kevin SAMUEL Martha A Kevin Comments: with [...] A Fast DO, Martha A Pulse Oximetry (39086)By: Kevin SAMUEL, On: 14-May-2013 Intent Martha A Fast DO, Martha A Comments: 98 Spirometry (51761)By: Kevin SAMUEL, On: 14-May-2013 Intent Martha A [...] SPLIT, >3 YEARS, INTRAMUSC On: 28-Jan-2013 Intent (47601)By: Kevin DO Martha A Fast Comments: Lot #:[id number] date:mount given:0.5mlRoute: IMSite given: L dltdVIS and ABN signedGiven by: GARETT Washington DO, Martha A IMMUNIZ ADMNIN, 1 VAC, SNGL/COMBO On: 28-Jan-2013 Intent ([id number])By: Kevin DO, Martha A Fast DO, Martha A Eprescribed prescriptions On: 28-Jan-2013 Intent ([id number])By: Patito Tineo Eprescribed prescriptions On: 17-Dec-2012 Intent (G8553)By: Cherie Fountain Breast Ultrasound - LeftBy: Fast On: 02-Nov-2012 Intent DO, Martha A Fast DO, Martha A Breast Diagnostic - LeftBy: Fast On: 02-Nov-2012 Intent DO, Martha A Fast DO, Marhta A CT - Abdomen & Pelvis Stone On: 12-Sep-2012 Intent ProtocolBy: Fast DO, Martha A Fast DO, Martha A Spirometry ([id number])By: Kevin SAMUEL, On: 28-May-2012 Intent Martha A Fast DO, Martha A Comments: good effort and curve mild obst Pulse Oximetry ([id number])By: Kevin SAMUEL, On: 28-May-2012 Intent Martha A [...] SPLIT, >3 YEARS, INTRAMUSC On: 09-Dec-2011 Intent ([id number])By: Patito Tineo Comments: Lot #[id number]-2/30/13Site-left deltoidgiven by: Angela Vincent LPN IMMUNIZ ADMNIN, 1 VAC, SNGL/COMBO On: 09-Dec-2011 Intent ([id number])By: Patito Tineo Nuclear Stress Test/Stress On: 22-Nov-2011 [...] A Comments: with 12mm tablet Pulse Oximetry (42962)By: Fast DO, On: 28-Jun-2011 Intent Martha A Fast DO, Martha A Comments: 98 Radiology - Chest- PA and LatBy: On: 28-Jun-2011 Intent Fast DO, Martha A Fast DO, Martha A Comments: stat call wet read Spirometry ([id number])By: Fast DO, On: 28-Jun-2011 Intent Martha A Fast DO, Martha A Comments: good effort and curve normal Radiology - ChestBy: Fast DO, Martha On: 07-Jun-2011 Intent A Fast DO, Martha A Comments: PA/LAT (do in 1 month) Eprescribed prescriptions On: 07-Jun-2011 Intent ([id number])By: Fast DO, Martha A Fast DO, Martha A Pulse Oximetry ([id number])By: Fast DO, On: 07-Jun-2011 Intent Martha A Fast DO, Martha A Comments: 95 Radiology - Chest- PA and LatBy: On: 07-Jun-2011 Intent Fast DO, Martha A Fast DO, Martha A Comments: call wet read MAMMOGRAM, SCREENING, BOTH BREASTS On: 20-May-2011 Intent ([id number])By: Fast DO, Martha A Fast DO, Martha A Ultrasound - ThyroidBy: Fast DO, On: 27-Apr-2011 Intent Martha A Fast DO, Martha A TDAP VACCINE >7 IM ([id number])By: On: 27-Apr-2011 Intent Patito Tineo Comments: 2009 FLU VAC, SPLIT, >3 YEARS, INTRAMUSC On: 21-Dec-2010 Intent (15801)By: Patito Tineo Comments: Lot #:[id number] date:mount given:0.5mlRoute: IMSite given:left deltGiven by: GARETT Washington IMMUNIZ ADMNIN, 1 VAC, SNGL/COMBO On: 21-Dec-2010 Intent (69913)By: Patito Tineo EKG ([id number])By: Melissa SLOAN, Cynthia On: 27-Oct-2010 Intent Comments: [...] BONE DENSITY, AXIAL SKELETON On: 04-May-2010 Intent ([id number])By: Patito Tineo MAMMOGRAM, SCREENING, BOTH BREASTS On: 04-May-2010 Intent (53528)By: Patito Tineo Clinical Breast Examination On: 04-May-2010 Intent (G0101)By: Patito Tineo Nuclear Medicine - Bone ScanBy: On: 02-Apr-2010 Intent Fast DO, Martha A Fast DO, Martha A Comments: full body- has neck pain and arthralgias and abnormal sacroiliac joint on xray-w ith focal sclerosis MAMMOGRAM, SCREENING, BOTH BREASTS On: 02-Apr-2010 Intent ([id number])By: Fast DO, Martha A Fast Comments: due end of may DO, Martha A Ultrasound - ThyroidBy: Noman, On: 23-Dec-2009 Intent Patito IMMUNIZ ADMNIN, 1 VAC, SNGL/COMBO On: 23-Dec-2009 Intent (51196)By: Fast DO, Martha A Fast Comments: lot # [id number] 4Pexp- 05/20104574oeyf-QSJNdntwa-CWkbvg- 0.5ML tolerated well [facility] DO, Martha A FLU VAC, SPLIT, >3 YEARS, INTRAMUSC On: 23-Dec-2009 Intent ([id number])By: Fast DO, Martha A Fast DO, Martha A Spirometry (94425)By: Fast DO, On: 26-Aug-2009 Intent Martha A Fast DO, Martha A Comments: good effort and curve normal Pulse Oximetry (99990)By: Fast DO, On: 26-Aug-2009 Intent Martha A Fast DO, Martha A Comments: 99 Radiology - Chest- PA and LatBy: On: 26-Aug-2009 Intent Fast DO, Martha A Fast DO, Martha A EKG ([id number])By: Fast DO, Martha A On: 02-Jul-2009 Intent [...] Other hyperlipidemia : DISCONTINUED - LIPID PANEL (17721) Indication: Other hyperlipidemia BMI between 19-24,adult : [...] Instructions Indication: Syncope Encounters Office Visit On: 07-Mar-2018 11:04 Encounter Reason: [...] biopsy- had cystoscopy ok- supposed to have 15 told need to put off couple weeks- [...] sleep disturbances. screening, colonoscopy (q 3 years 2016 - due 2019), screening, mammography (2018), screening, Pap smear (hysterectomy) [...] week test of monitoring for seizure from [place] and test never got done- last week [...] is good- she not go back to [place] as she wants to wait until gets [...] - did End: 05-Sep-2016 9:46 get to [facility]- supposed to see endo doesnt think thyroid right- and doesnt have ms- seeing urolgoist oct 26- - saw neuro at [facility]- - they think white matter partly migrainous- they looked at her mris - they going to send to director of nursing as well- the valium reallyhelping her sleep [...] to treat her until see neuro at [facility]- specialist to help determine- he [...] daily stress with her health issues and [facility] - Encounter Diagnosis: Chronic intractable [...] visual acuity (yearly). Note for Physical exam: [facility]- she is seeing Dr Wilburn on for her back and gettig thoracic mri and sa w painmanagement stillnot comfortable- tried fosamax in past gaver her terrible side effects gi upset , [ADDITIONAL REASON] Follow up, Laboratory Test Results - Date: (08/2015- [facility] labs). Encounter Diagnosis: BMI [...] has been pretty good- she seeing brayan georges nd has said has sluggish adrenal but not require meds- she is adjusting her thyroid- she is watching her thryoid nodule-- shelikes the buspar alot and does help still has anxiety but helps- sometimes tr zach doesnt get sleep so will take 2 [...] Note for Hip problem: Pt was in [place] last week and slipped on wet ceramic [...] up on celexa- she has followup with [facility] in june for thyroid and has followup [...] - she saw neurologist dr howard in [place]- he did tilt table table test and [...] no new complaints- seeing pain management at [facility] has good energy level and is sleepin [...] back in 2005- same surgeon- doing at [facility]- she saw Noni who told ehr to [...] she saw danni and had basalcell by diane taken off face- - and had whole [...] able to do more- and is joining [employer] to keep doing the exercises -- bp [...] Dr Gonzalez-- this person now moving to [place]- mentally the aquatherapy is helpi ng- physically [...] Hip bursitis 726.5 [facility] [employer] [facility] Psychiatric HospitalTITA LAW; a guarantor
--- OUTSIDE RECORDS SUMMARY | 2018-05-23 11:20 | XMS RPT_ITS | Continuity of Care Document ---
:1960 Author Organization [facility] Address [address] [place] [address] Phone Care Team Providers Name Role Phone Martha Brown DO Unavailable Brinda IRVIN, Dr. Padilla Jones Unavailable Jitendra Cook MD Unavailable Alan Torres MD Unavailable Eusebio Braswell Unavailable Dr. Carlito Zamora DO Unavailable Aristides Daily Unavailable Unavailable Dr. Matt Wilburn MD Unavailable Shahla Myers MD Unavailable [facility], [facility] Unavailable Niru Taylor Unavailable Trudi Villafana Unavailable Dr. Niru Meyer MD Unavailable Rossy IRVIN, Gato Castillo Unavailable Jay Conley Unavailable Chikis Ashley Unavailable YURIY Vernon Unavailable Unavailable Madison Parikh MD Unavailable Cherie Fountain Unavailable Unavailable Long AGRICULTURE ENGINEER, Heather L Unavailable Unavailable Patito Tineo Unavailable Unavailable Unavailable Unavailable Problems Name Dates [...] month needs cleaned up. Status: Active Acute ethmoidal sinusitis, recurrence not [...] {Tablet} Refills: 3 Ordered:19-Dec-2017 Martha Brown DO, DO Martha A Start : 19-Dec-2017 Active CALCIUM, 600MG (PO Cap) 1 BID for 0 days Refills: 0 Ordered:11-Jun-2009 Mast Allison SLOAN Ciprofloxacin HCl 500 MG Oral Tablet 1 (one) Tablet Tablet bid for 0 days Quantity: 20 {Tablet} Refills: 0 Ordered:08-Jan-2018 YURIY Vernon Start : 08-Jan-2018 Active Clarithromycin 500 MG Oral Tablet 1 (one) Tablet bid for 0 days Quantity: 20 {Tablet} Refills: 0 Ordered:23-Feb-2018 Madison Parikh MD Start : 23-Feb-2018 Active Cytomel 5 MCG Oral Tablet 1 tab Tablet qd for 90 days Quantity: 90 {QS} Refills: 3 Ordered:05-Dec-2017 Martha Brown DO, DO Martha A Start : 05-Dec-2017 Active DiazePAM 5 MG Oral Tablet 1 (one) Tablet bid for 0 days Quantity: 60 {Tablet} Refills: 0 Ordered:17-Oct-2017 Martha Brown DO, DO, Martha A Start : 17-Oct-2017 Active Comments:sixtyfaxed to BMT 06/16/17 Escitalopram Oxalate 20 MG Oral Tablet 1 (one) Tablet qhs for 90 days Quantity: 90 {Tablet} Refills: 3 Ordered:07-Mar-2017 Kevin SAMUELFranrita ROMEROMartha dudley DO A Start : 07-Mar-2017 Active Hysingla ER 20 MG Oral Tablet ER 24 Hour Abuse-Deterrent 1 qd (20 MG) Active PredniSONE 5 MG Oral Tablet 1 (one) Tablet qd as directed for 90 days Quantity: 90 {Tablet} Refills: 3 Ordered:05-Dec-2017 Kevin SAMUEL Martha ROMEROoctavia SAMUEL Martha A Start : 05-Dec-2017 Active PredniSONE 5 MG Oral Tablet 1 (one) Tablet qd as directed for 30 days Quantity: 40 {Tablet} Refills: 0 Ordered:05-Dec-2017 Kevin SAMUELFranrita ROMEROoctavia SAMUEL Martha A Start : 05-Dec-2017 Active Comments:take with food in am Prolia 60 MG/ML Subcutaneous Solution 1 (one) Milliliter q 6 for 0 days Quantity: 1 {Milliliter} Refills: 0 Ordered:05-Dec-2017 Kevin SAMUELMartha HEATHERMartha dudley DO Start : 05-Dec-2017 Active Propranolol HCl 20 MG Oral Tablet bid (20 MG) Active Rosuvastatin Calcium 20 MG Oral Tablet 1 (one) Tablet qhs for 90 days Quantity: 90 {Tablet} Refills: 3 Ordered:05-Dec-2017 Kevin SAMUEL Martha ROMEROoctavia SAMUEL Martha Rita Start : 05-Dec-2017 Active Synthroid 150 MCG Oral Tablet 1 (one) Tablet daily except 1/2 tab on m,w,f, for 90 days Refills: 3 Ordered:05-Dec-2017 Kevin SAMUELFranrita ROMEROMartha dudley DO Start : 05-Dec-2017 Active Dispense as Written Comments:COLTONCLOTONCOLTON Topiramate 50 MG Oral Tablet 1 Tablet 3 tabs at night and 1 in morning for 0 days Quantity: 270 {Tablet} Refills: 3 Ordered:28-Jun-2017 Kevin SAMUELMartha HEATHERMartha dudley DO Start : 28-Jun-2017 Active Comments:please DO NOT [...] days Quantity: 270 {Capsule} Refills: 0 Ordered:07-Mar-2017 Fast DO, Martha AFast DO, Martha A Start : 07-Mar-2017 End : 06-Apr-2017 [...] Refills: 0 Ordered:09-May-2016 Martha Brown DO, DO, Martha A Start : 09-May-2016 End : 08-Jun-2016 Inactive Comments:thirty MAXALT, 10MG (Oral Tablet) 1 (one) Tablet prn for 30 days Quantity: 10 {Tablet} Refills: 0 Ordered:02-Sep-2013 Martha Brown DO, DO, Martha A Start : 01-Jul-2013 End : 31-Jul-2013 Inactive MELATONIN, 5MG (Oral Tablet) 1 QHS for 0 days Refills: 0 Ordered:04-Jun-2010 Kareem Saloni SHANE End : 04-Jun-2010 Inactive MOBIC, 7.5MG (Oral Tablet) 1 tab qd, prn (7.5 MG) Inactive Neurontin 600 MG Oral Tablet 1 (one) Capsule Tablet bid for 0 days Quantity: 180 {Tablet} Refills: 3 Ordered:01-Sep-2016 Martha Brown DO, DO, Martha A Start : 24-May-2016 End : 01-Sep-2016 Inactive NYSTATIN, 702550WGEZ/ML (Mouth/Throat Suspension) 1 Suspension 5 cc 5 [...] {Capsule_DR} Refills: 3 Ordered:27-Apr-2011 Martha Brown DO, DO, Debra A Start : 27-Apr-2011 End : 27-Apr-2011 Discontinued Comments:1 hour before bed- failed omeprazole and pepcid Douglas 3 1200 MG Oral Capsule 2 qd [...] : 14-Oct-2013 End : 27-Jun-2016 Discontinued Comments:Dr. aHzel Simvastatin 40 MG Oral Tablet 1 (one) [...] Result: Comments: See Note; NOTES: [facility] Imaging Services [address] [place] [address] Abdomen/Pelvis WITH Contrast MR#: [id number] Acct: [id number] Name: TITA LAW Rep #: [id number] : 1960 F 57 From: Barrera Galeana MD PCP: Martha Brown DO Status: REG CLI Study: Abdomen/Pelvis WITH Contrast Date of Exam: 02/14/18 Exam# [id number] Ordering Dr: Chikis Ashley STUDY: CT ABDOMEN [...] Barrera Galeana MD at 10:47 EST Tel [phone], Service support , CC: Martha Brown DO; Chikis Ashley MD Mounter: Signed 08-Jan-2018 Abdomen/Pelvis without Cont Result: Comments: See Note; NOTES: [facility] Imaging Services [address] [place] [address] Abdomen/Pelvis without Cont MR#: [id number] Acct: [id number] Name: TITA LAW Rep #: [id number] : 1960 F 57 From: Barrera Galeana MD PCP: Martha Brown DO Status: REG CLI Study: Abdomen/Pelvis without Cont Date of Exam: 01/08/18 Exam# [id number] Ordering Dr: Martha Brown DO S TUDY: [...] Barrera Galeana MD at 13:09 EST Tel [phone], Service support , CC: Martha Brown DO Mounter: Signed 30-Dec-2017 Urgent Care Visit Report Result: Comments: See Note; NOTES: [facility] [address] [place] [address] OFFICE VISIT Date of Service: 12/30/17 MR#: [id number] Acct: [id number] Name: TITA LAW Rep #: [id number] : 1960 Provider: APPLE Casiano Age/Sex: 57/F Location: [facility] Status: Signed Intake Vital Signs12/30/17 Height 5 [...] person, oriented to place, oriented to time [facility] Head: normocephalic Ears: external ears normal, TM's normal bilaterally, EAC's normal Eyes General: appearance normal, both eyes and all related stru ctures Conjunctivae: conjunctivae normal Sclera: sclerae normal Pupils: PERRL Neck Neck: no lymphadenopathy Thyroid: thyroid normal Chest Chest palpation AND inspection: normal inspection of the chest R prceious Effort AND Inspection: normal respiratory effort, no [...] Result: Comments: See Note; NOTES: [facility] Imaging Services [address] [place] [address] Brain W/WO Contrast MR#: [id number] Acct: [id number] Name: TITA LAW Rep #: [id number] : 1960 F 57 From: Pedro Luis Akhtar MD PCP: Martha Brown DO Status: REG CLI Study: Brain W/WO Contrast Date of Exam: 11/06/17 Exam# [id number] Ordering Dr: Martha Brown DO STUDY: MRI [...] Service support , CC: Martha Brown DO Mounter: Signed 31-Aug-2017 SCREENING MAMM (CAD), BILAT Result: Comments: See Note; NOTES: [facility] Imaging Services [address] [place] [address] SCREENING MAMM (CAD), BILAT MR#: [id number] Acct: [id number] Name: TITA LAW Rep #: [id number] : 1960 F 57 From: Barrera Galeana MD PCP: Martha Brown DO Status: REG CLI Study: SCREENING MAMM (CAD), BILAT Date of Exam: 08/31/17 Exam# [id number] Ordering Dr: Martha Brown DO MAMMOGRAPHY - [...] biopsy of a clini griselda suspicious abnormality. [id number] Electronically Signed: Barrera Galeana MD at 14:24 EDT Tel [phone], Service support , CC: Martha Brown DO Mounter: Signed 31-Aug-2017 Dexa Bone Density Study Result: Comments: See Note; NOTES: [facility] Imaging Services [address] [place] [address] Dexa Bone Density Study MR#: [id number] Acct: [id number] Name: TITA LAW Rep #: [id number] : 1960 F 57 From: Barrera Galeana MD PCP: Martha Brown DO Status: REG CLI Study: Dexa Bone Density Study Date of Exam: 08/31/17 Exam# [id number] Ordering Dr: Martha Brown DO STUDY: D [...] Barrera Galeana MD at 15:16 EDT Tel [phone], Service support , CC: Martha Brown DO Mounter: Signed 27-Jul-2017 PT D/C Summary (1) Result: Comments: See Note; NOTES: [facility] [address] [facility] [place], [place] [address] Fax REHABILITATION SERVICES DISCHAR GE SUMMARY MR#: [id number] Acct: [id number] Name: TITA LAW Rep #: [id number] : 1960 57 From: Alan Miller PT, Cert. T, OCS Referring DrIfeanyi: Maddie MCRAE Presegundo Status: REG RCR Insu zafar: [facility] SELF PAY INSURANCE HP - PT [...] please feel free to call me at [phone]. Thank you for the referral of this patient. Sincerely, Alan Miller PT, <Electronically signed by Alan yuan PT, Cert. MDT, OCS> 07/27/17 3135 CC: Maddie Munoz; Martha Brown DO JLA Signed 28-Jun-2017 Forearm 2 Views Result: Comments: See Note; NOTES: [facility] Imaging Services [address] [place] [address] Forearm 2 Views MR#: [id number] Acct: [id number] Name: TITA LAW Rep #: [id number] : 1960 F 56 From: Jam Thomas MD PCP: Martha Brown DO Status: REG CLI Study: Forearm 2 Views Date of Exam: 06/28/17 Exam# [id number] Ordering Dr: Martha Brown DO STUDY: X-RAY [...] Service support , CC: Martha Brown DO Mounter: Signed 28-Jun-2017 Wrist min 3 Views Result: Comments: See Note; NOTES: [facility] Imaging Services [address] [place] [address] Wrist min 3 Views MR#: [id number] Acct: [id number] Name: TITA LAW Rep #: [id number] : 1960 F 56 From: Jam Thomas MD PCP: Martha Brown DO Status: REG CLI Study: Wrist min 3 Views Date of Exam: 06/28/17 Exam# [id number] Ordering Dr: Martha Brown DO STUDY: X-RAY [...] Service support , CC: Martha Brown DO Mounter: Signed 28-Jun-2017 Brain/Head without Contrast Result: Comments: See Note; NOTES: [facility] Imaging Services [address] [place] [address] Brain/Head without Contrast MR#: [id number] Acct: [id number] Name: TITA LAW Rep #: [id number] : 1960 F 56 From: Krzysztof Rivera MD PCP: Martha Brown DO Status: REG CLI Study: Brain/Head without Contrast Date of Exam: 06/28/17 Exam# [id number] Ordering Dr: Martha Brown DO STUDY : [...] Service support , CC: Martha Brown DO Mounter: Signed 01-May-2017 Chest PA and Lateral Result: Comments: See Note; NOTES: [facility] Imaging Services [address] [place] [address] Chest PA and Lateral MR#: [id number] Acct: [id number] Name: TITA LAW A Rep #: [id number] : 1960 F 56 From: Murray Palma MD PCP: Martha Brown DO Status: REG CLI Study: Chest PA and Lateral Date of Exam: 05/01/17 Exam# [id number] Ordering Dr: Martha Brown DO STUDY: X-RAY [...] MD at 17:05 EST , Service support [phone], CC: Martha Brown DO Mounter: Signed 15-Apr-2017 Discharge Instruction Result: Comments: See Note; NOTES: [facility] Medical Records Department [address] [place] [address] Discharge Instruction 04/15/17 1813 MR#: [id number] Acct: [id number] Name: TITA MONTOYA Rep #: [id number] : 1960 56 From: Dusty Dumont MD [...] your Primary Care Provider. Call [facility] ([phone]) or report to the closest Emergency Room. Call 911 if necessary. 04/15/171813 <Electronically signed by Dusty Dumont MD> Date Dusty Dumont MD Cosigner Signature (If Indicated): Da te CC: Martha Brown DO 15-Apr-2017 Emergency Department Summary Result: Comments: See Note; NOTES: [facility] Medical Records Department [address] [facility] [place] [address] Emergency Department Summary 04/15/171810 MR#: [id number] Acct: [id number] Name: TITA LAW Rep #: [id number] : 1960 56 From: Dusty Dumont MD [...] acquired pneumonia This note was generated with Magnetic software. It may contain incorrect words, spelling, and punctuation that were not noted in review of the chart prior to signing ED Disposition - Plan for ED Patient: Chief Complaint: Shortness of Breath Referrals: Martha Bronw DO [Primary Care Provider] - What to do if you have Problems For any increased pain, shortness of breath, bleeding, nausea or vomiting, chest pain, or any unexpecte d problems, contact your Primary Care Provider. Call [facility] ([phone]) or report to the closest Emergency Room. Call 911 if necessary. 04/15/173 <Electronically signed by Art Dumont MD> Date Dusty Dumont MD Cosigner Signature (If Indicated): Date CC: Martha Brown DO 15-Apr-2017 Chest PA and Lateral Result: Comments: See Note; NOTES: [facility] Imaging Services [address] [place] [address] [place] [address] Chest PA and Lateral MR#: [id number] Acct: [id number] Name: TITA LAW Rep #: [id number] : 1960 F 56 From: Erasto Persaud MD PCP: Martha Brown DO Status: REG ER Study: Chest PA and Lateral Date of Exam: 04/15/17 Exam# [id number] Ordering Dr: Dusty Dumont MD STUDY: X-RAY [...] CC: Martha Brown DO; Dusty Dumont MD Mounter: Signed 03-Apr-2017 Inital Evaluation (1) - PT Result: Comments: See Note; NOTES: [facility] [address] [place] [address]. [address] [place], [place] [address] Fax REHABILITATION SERVICES INITIAL EVALUATION MR#: [id number] Acct: [id number] Name: TITA LAW Rep #: [id number] : 1960 56 From: Alan Miller PT, Cert. MDT, OCS Referring Dr.: Maddie Munoz Status: REG RCR Insur ance: [facility] SELF PAY INSURANCE Patient's Visit Information TITA LAW is a 56 year old F referred to Physical Therapy by THOR Ridley SENIOR RUBY DEVELOPER.LPREBI with a diagnosis of L-IVDD,L- STENOSIS,L-SPONDYLOPATHY,MYALGIA. [...] to be FAXED BACK to us at [phone] for Medicare purposes. Please let me know if there are questions or concerns regarding this plan of care. Physician Signature: Date: <Electronically signed by Alan Miller PT, Cert. T, OCS> 04/03/17 1017 CC: Maddie Brown DO LISHA Signed For Medicare only, by signing this I certify the plan of care. Physicians Signature Date 08-Mar-2017 Thyroid Result: Comments: See Note; NOTES: [facility] Imaging Services [address] [place] [address] Thyroid MR#: [id number] Acct: [id number] Name: TITA LAW Rep #: [id number] : [birth year] F 56 From: Barrera Galeana MD PCP: Martha Brown DO Status: REG CLI Study: Thyroid Date of Exam: 03/08/17 Exam# [id number] Ordering Dr: Martha Brown DO STUDY: THYROID [...] Galeana MD at 14:4 9 EST Tel [phone], Service support , CC: Martha Brown DO Mounter: Signed 06-Dec-2016 TXT - Blood Flow Screening Result: Comments: See Note; NOTES: [facility] Cardiovascular Services [address] [place] [address] 12/06/16 0815 MR#: [id number] Acct: [id number] Name: TITA LAW Rep #: [id number] [...] CC: Martha Brown DO Sharif e Dictated: 12/06/16 0815 Date Transcribed: 12/06/162139 Mounter: Signed 13-Sep-2016 Stress Report Result: Comments: See Note; NOTES: [facility] Cardiovascular Services [address] [place] [address] Agnes ames MR#: [id number] Acct: [id number] Name: TITA LAW Rep #: [id number] [...] patient was injected with 32.8 mCi of Candy Wrapping Machine Operator 99m Cardiolite and subsequently stress SPECT Cardiolite [...] of 85%. This note was generated with Cass Art software. It may contain incorrect words, spelling, and punctuation that were not noted in checking the not e before signing. 09/13/162053 <Electronically signed by Gato Blair MD> Date Gato Blair MD CC: Martha Brown DO; Gato Blair MD Date Dictated: 09/13/162046 Date Transcribed: 09/13/162046 Mounter: PM Signed 30-Aug-2016 Electroencephalogram Result: Comments: See Note; NOTES: [facility] Pulmonary Services/Neurology [address] [place] [address] MR#: [id number] Acct: [id number] Name: TITA LAW Rep #: [id number] : 1960 56 From: Jacinto Salazar MD [...] Date Dic tated: 08/29/161720 Date Transcribed: 08/29/161720 Mounter: RSR Signed 29-Aug-2016 SCREENING MAMM (CAD), BILAT Result: Comments: See Note; NOTES: [facility] Imaging Services [address] [place] [address] Verdana 4d SCREENING MAMM (CAD), BILAT MR#: [id number] Acct: [id number] Name: GINNY LAW [facility] Rep #: [id number] : 1960 F 56 From: Krzysztof White MD PCP: Martha Brown DO Status: REG CLI Study: SCREENING MAMM (CAD), BILAT Date of Exam: 08/29/16 Exam# [id number] Ordering Dr: Martha Brown DO MAMMOGRAPHY - [...] delay biopsy of a clinically suspicious abnormality. [id number] Electronically Signed: Dread White MD at 8:46 EDT , Service support , CC: Martha Brown DO Mounter: Signed 25-Aug-2016 Echocardiogram Complete Result: Comments: See Note; NOTES: [facility] Cardiovascular Services [address] [place] [address] Echo Complete 08/25/16 1207 MR#: [id number] Acct: [id number] Name: TITA LAW Rep #: [id number] : 1960 56 From: Conrado Nolasco MD Attending Dr: Martha Brown DO Status: REG CLI Ordering Dr: Martha Brown DO Date: 08/25/16 Location: [facility] Sex: F C Admitted: Reason For [...] Dictated: 08/25/16 1207 Date Transcribed: 08/25/16 1318 Mounter: Signed 09-Aug-2016 Chest PA and Lateral Result: Comments: See Note; NOTES: [facility] Imaging Services [address] [place] [address] Verda 4d Chest PA and Lateral MR#: [id number] Acct: [id number] Name: TITA LAW Marnie p #: [id number] : 1960 F 56 From: Dustin Villatoro DO PCP: Martha Brown DO Status: REG CLI Study: Chest PA and Lateral Date of Exam: 08/09/16 Exam# [id number] Ordering Dr: Martha Brown DO STUDY: X-RAY [...] Dustin Villatoro DO at 22:20 EDT T el [phone], Service support , CC: Martha Brown DO Mounter: Signed 21-Jul-2016 Thyroid Result: Comments: See Note; NOTES: [facility] Imaging Services [address] [place] [address] Verdana 4d Thyroid MR#: [id number] Acct: [id number] Name: TITA LAW Rep #: [id number] : 1960 F 56 From: Quentin Inman DO PCP: Martha Brown DO Status: REG CLI Study: Thyroid Date of Exam: 07/21/16 Exam# [id number] Ordering Dr: Martha Brown DO STUDY: THYROID [...] Service support , CC: Martha Brown DO Mounter: Signed 23-Jun-2016 Cerv Spine 4 or 5 Views Result: Comments: See Note; NOTES: [facility] Imaging Services [address] [place] [address] Verdana 4d Cerv Spine 4 or 5 Views MR#: [id number] Acct: [id number] Name: TITA LAW Rep #: [id number] : 1960 F 55 From: Hugo Pearce MD PCP: Martha Brown DO Status: REG CLI Study: Cerv Spine 4 or 5 Views Date of Exam: 06/23/16 Exam# [id number] Ordering Dr: Martha Brown DO STUDY: X-RAY [...] Service support , CC: Martha Brown DO Mounter: Signed 23-Jun-2016 Cerv Spine 4 or 5 Views Result: Comments: See Note; NOTES: [facility] Imaging Services [address] [place] [address] Verdana 4d Cerv Spine 4 or 5 Views MR#: [id number] Acct: [id number] Name: TITA LAW Rep #: [id number] : 1960 F 55 From: Hugo Pearce MD PCP: Martha Brown DO Status: REG CLI Study: Cerv Spine 4 or 5 Views Date of Exam: 06/23/16 Exam# [id number] Ordering Dr: Martha Brown DO ADDENDUM by Hguo Pearce MD on 06/28/16 at 1559 0074 [...] at 15:59 EDT Tel , Service support [phone], 06/28/16 1559 Date cc: Martha Brown DO [...] support , Fax CC: Martha Brown DO Mounter: Signed 23-Jun-2016 Chest PA and Lateral Result: Comments: See Note; NOTES: [facility] Imaging Services [address] [place] [address] Verdana 4d Chest PA and Lateral MR#: [id number] Acct: [id number] Name: TITA LAW #: [id number] : 1960 F 55 From: Hugo Pearce MD PCP: Martha Brown DO Status: REG CLI Study: Chest PA and Lateral Date of Exam: 06/23/16 Exam# [id number] Ordering Dr: Martha Brown TUDY: X-RAY CHEST [...] Service support , CC: Martha Brown DO Mounter: Signed 02-Jun-2016 Abdomen WITH IV Contrast Result: Comments: See Note; NOTES: [facility] Imaging Services [address] [place] [address] Verdana 4d Abdomen WITH IV Contrast MR#: [id number] Acct: [id number] Name: BESSY LAW Rep #: [id number] : 1960 F 55 From: Isela Wright MD PCP: Martha Brown DO Status: REG CLI Study: Abdomen WITH IV Contrast Date of Exam: 06/02/16 Exam# [id number] Ordering Dr: Martha Brown DO A DDENDUM [...] MD at 7:28 EDT , Service support [phone], Fax CC: Martha Brown DO Mounter: Signed 02-Jun-2016 Abdomen WITH IV Contrast Result: Comments: See Note; NOTES: [facility] Imaging Services [address] [place] [address] Verdana 4d Abdomen WITH IV Contrast MR#: [id number] Acct: [id number] Name: ANIMANDYSAVANNAH Estrada Rep #: [id number] : 1960 F 55 From: Isela Wright MD PCP: Martha Brown DO Status: REG CLI Study: Abdomen WITH IV Contrast Date of Exam: 06/02/16 Exam# [id number] Ordering Dr: Martha Brown TUDY: CT ABDOMEN [...] MD at 7:28 EDT , Service support [phone], CC: Martha Brown DO Mounter: Signed 19-May-2016 Hepatobilliary Img w/Pharm Int Result: Comments: See Note; NOTES: [facility] Imaging Services [address] [place] [address] Verdana 4d Hepatobilliary Img w/Pharm Int MR#: [id number] Acct: [id number] Name: TITA LAW Rep #: [id number] : 1960 F 55 From: Mario Olivo DO PCP: Martha Brown DO Status: REG CLI Study: Hepatobilliary Img w/Pharm Int Date of Exam: 05/19/16 Exam# [id number] Ordering Dr: Carrington Brown DO CLINICAL: 55-year-old [...] at 22:51 EDT Tel , Service support [phone], CC: Martha Brown DO Mounter: Signed 12-May-2016 Liver Result: Comments: See Note; NOTES: [facility] Imaging Services [address] [place] [address] Verdana 4d Liver MR#: [id number] Acct: [id number] Name: TITA LAW Rep #: [id number] : 1960 F 55 From: Barrera Galeana MD PCP: Martha Brown DO Status: REG CLI Study: Liver Date of Exam: 05/12/16 Exam# [id number] Ordering Dr: Martha Brown DO STUDY: ABDOMINAL [...] Barrera Galeana MD at 11:28 EDT Tel [phone], Service anthony pport [phone], CC: Martha Brown DO Mounter: Signed 20-Apr-2016 NCS and/or EMG Patient Result: Comments: See Note; NOTES: [facility] Pulmonary Services/Neurology [address] [place] [address] NCS and/or EMG Patient MR#: [id number] Acct: [id number] Name: TITA LAW Rep #: [id number] : 1960 55 From: Pardeep Read MD Referring Dr: Eusebio Braswell MD Status: REG CLI Ordering Dr: Eusebio Braswell MD Date: 04/20/16 Location: [facility] Sex: F C DATE OF [...] nerve. Pardeep Read MD T: NTS JOB: [id number] 04/20/16 1556 <Electronically signed by Pardeep Read MD> Date Pardeep Read MD CC: Martha Brown DO; Pardeep Read MD; Eusebio Braswell MD Date Dictated: 04/20/16 1107 Date Transcribed: 04/20/161106 Mounter: Signed 15-Mar-2016 Fluoro Guided Lumbar Puncture Result: Comments: See Note; NOTES: [facility] Imaging Services [address] [place] [address] Verdana 4d Fluoro Guided Lumbar Puncture MR#: [id number] Acct: [id number] Name: Niecy LAW Rep #: [id number] : 1960 F 55 From: Barrera Galeana MD PCP: Martha Brown DO Status: REG CLI Study: Fluoro Guided Lumbar Puncture Date of Exam: 03/15/16 Exam# [id number] Ordering Dr: Pepper Benoit PROCEDURE: Fluoroscopic guided [...] procedure were explained to the patient. [facility] risks of bleeding, infection, and neurovascular [...] Barrera Galeana MD at 10:09 EST Tel [phone], Service support [phone], CC: Pepper Barr SENIOR RUBY DEVELOPER; Martha Brown DO Mounter: Signed 11-Mar-2016 Thyroid Result: Comments: See Note; NOTES: [facility] Imaging Services [address] [place] [address] Verdana 4d Thyroid MR#: [id number] Acct: [id number] Name: TITA LAW Rep #: [id number] : 1960 F 55 From: Barrera Galeana MD PCP: Martha Brown DO Status: REG CLI Study: Thyroid Date of Exam: 03/11/16 Exam# [id number] Ordering Dr: Martha Brown DO STUDY: THYROID [...] Barrera Galeana MD at 15:57 EST Tel [phone], Service support [phone], CC: Martha Brown DO Mounter: Signed 10-Feb-2016 Brain W/WO Contrast Result: Comments: See Note; NOTES: [facility] Imaging Services [address] [place] [address] Verdana 4d Brain W/WO Contrast MR#: [id number] Acct: [id number] Name: TITA LAW Rep #: [id number] : 1960 F 55 From: Madeleine Villar MD PCP: Martha Brown DO Status: REG CLI Study: Brain W/WO Contrast Date of Exam: 02/10/16 Exam# [id number] Ordering Dr: Martha Brown DO STUDY: MRI [...] MD at 23:33 EST , Service support [phone], CC: Martha Brown DO Mounter: Signed 25-Jan-2016 Cerv Spine 2 or 3 Views Result: Comments: See Note; NOTES: [facility] Imaging Services [address] [place] [address] Verdana 4d Cerv Spine 2 or 3 Views MR#: [id number] Acct: [id number] Name: TITA LAW Rep #: [id number] : 1960 F 55 From: Julio Cesar Soto MD PCP: Martha Brown DO Status: REG CLI Study: Cerv Spine 2 or 3 Views Date of Exam: 01/25/16 Exam# [id number] Ordering Dr: Matt Wilburn STUDY : X-RAY [...] FACR at 16:52 EST , Service support [phone], CC: MATT WILBURN; Martha Brown DO Mounter: Signed 25-Jan-2016 Spine Cervical (Routine) Result: Comments: See Note; NOTES: [facility] Imaging Services [address] [place] [address] Verdana 4d Spine Cervical (Routine) MR#: [id number] Acct: [id number] Name: BESSY LAW Rep #: [id number] : 1960 F 55 From: Julio Cesar Soto MD PCP: Martha Brown DO Status: REG CLI Study: Spine Cervical (Routine) Date of Exam: 01/25/16 Exam# [id number] Ordering Dr: Matt Wilburn DY: MRI CERVICAL [...] FACR at 15:55 EST , Service support [phone], CC: MATT WILBURN; Martha Brown DO Mounter: Signed 31-Dec-2015 L/S Spine Bending Flex/Ext Result: Comments: See Note; NOTES: [facility] Imaging Services [address] [place] [address] Verdana 4d L/S Spine Bending Flex/Ext MR#: [id number] Acct: [id number] Name: GINNY LAW LLBHAKTI Rep #: [id number] : 1960 F 55 From: Barrera Galeana MD PCP: Martha Brown DO Status: REG CLI Study: L/S Spine Bending Flex/Ext Date of Exam: 12/31/15 Exam# [id number] Ordering Dr: Carrington Wilburn STUDY: X-RAY - [...] Galeana MD 4 at 11:17 EDT Tel [phone], Service support [phone], CC: MATT WILBURN; Martha Brown DO Mounter: Signed 24-Dec-2015 Chest 1 View (Portable) Result: Comments: See Note; NOTES: [facility] Imaging Services [address] [place] [address] Verda 4d Chest 1 View (Portable) MR#: [id number] Acct: [id number] Name: BESSY LAW Rep #: [id number] : 1960 F 55 From: Barrera Galeana MD PCP: Martha Brown DO Status: REG ER Study: Chest 1 View (Portable) Date of Exam: 12/24/15 Exam# [id number] Ordering Dr: Rashad Acosta MD STUDY: X-RAY [...] Barrera Galeana MD at 15:13 EDT Tel [phone], Service support [phone], CC: Martha Brown DO; Rashad Acosta MD Mounter: Signed 10-Oct-2015 Spine Lumbar without Contrast Result: Comments: See Note; NOTES: [facility] Imaging Services [address] [place] [address] Verdana 4d Spine Lumbar without Contrast MR#: [id number] Acct: [id number] Name: TITA LAW Rep #: [id number] : 1960 F 55 From: [facility] PCP: Martha Brown DO Status: REG CLI Study: Spine Lumbar without Contrast Date of Exam: 10/10/15 Exam# [id number] Ordering Dr: Ruben Wilburn STUDY: CT LUMBAR [...] at 16:29 EDT Tel , Service support [phone], CC: MATT WILBURN; Martha Brown DO Mounter: Signed 07-Oct-2015 Spine Thoracic (Routine) Result: Comments: See Note; NOTES: [facility] Imaging Services [address] [place] [address] Ver[place] 4d Spine Thoracic (Routine) MR#: [id number] Acct: [id number] Name: SARINA LAW IS Rep #: [id number] : 1960 F 55 From: Basil Culver MD PCP: Martha Brown DO Status: REG CLI Study: Spine Thoracic (Routine) Date of Exam: 10/07/15 Exam# [id number] Ordering Dr: MANDEEP DILLON MD STUDY: MRI [...] at 16:32 EDT Tel , Service support [phone], CC: Martha Brown DO; MANDEEP DILLON MD Mounter: Signed 29-Sep-2015 ELECTROCARDIOGRAM, COMPLETE (ECG) (05874) Comments: ekg showed normal sinus rhythym, normal axis, no acute st/t wave changes Result: [MEASUREMENTS ANALYSIS] Date of Test: 09/29/2015 10:02:56; Heart Rate: 70; IA Interval: 158; QRS: 90; QT Interval: 396; Corrected QT Interval (QTc): 413; P Wave [place]: 73; QRS Wave [place]: 71; T Wave [place]: 67; Blood Pressure: 110/70 [ECG DIAGNOSTIC STATEMENTS] Date of Test: 09/29/2015 10:02:56; Summary: Sinus Rhythm WITHIN NORMAL LIMITS 03-Sep-2015 Spine Lumbar (Routine) Result: Comments: See Note; NOTES: [facility] Imaging Services [address] [place] [address] Verdana 4d Spine Lumbar (Routine) MR#: [id number] Acct: [id number] Name: TITA DUEÑAS Rep #: [id number] : 1960 F 55 From: Julio Cesar Soto MD PCP: Martha Brown DO Status: REG CLI Study: Spine Lumbar (Routine) Date of Exam: 09/03/15 Exam# [id number] Ordering Dr: Martha Brown DO STUDY: MRI [...] FACR at 11:54 EDT , Service support [phone], CC: Martha Brown DO Mounter: Signed 27-Aug-2015 Bilat Scrn Digital AND CAD Result: Comments: See Note; NOTES: [facility] Imaging Services [address] [place] [address] Verdana 4d Bilat Scrn Digital AND CAD MR#: [id number] Acct: [id number] Name: TITA LAW Rep #: [id number] : 1960 F 55 From: Barrera Galeana MD PCP: Martha Brown DO Status: REG CLI Study: Bilat Scrn Digital AND CAD Date of Exam: 08/27/15 Exam# [id number] Orderi ng Dr: Martha Brown DO MAMMOGRAPHY [...] delay biopsy of a clinically suspicious abnormality. [id number] Electronically Signed: Barrera Galeana MD a t 8:51 EDT Tel [phone], Service support [phone], CC: Martha Brown DO Mounter: Signed 27-Aug-2015 Dexa Bone Density Study (HP) Result: Comments: See Note; NOTES: [facility] Imaging Services [address] [place] [address] Verdana 4d Dexa Bone Density Study (HP) MR#: [id number] Acct: [id number] Name : TITA LAW Rep #: [id number] : 1960 F 55 From: Barrera Galeana MD PCP: Martha Brown DO Status: [facility] CLI Study: Dexa Bone Density Study (HP) Date of Exam: 08/27/15 Exam# [id number] Or bernardo Dr: Martha Brown DO STUDY: [...] Barrera Galeana MD at 14:42 EDT Tel [phone], Service support [phone], CC: Martha Brown DO Mounter: Signed 27-Aug-2015 Hip 2-3 Views with Pelvis Result: Comments: See Note; NOTES: [facility] Imaging Services [address] [place] [address] Verdana 4d Hip 2-3 Views with Pelvis MR#: [id number] Acct: [id number] Name: TITA AMBROCIO Rep #: [id number] : 1960 F 55 From: Murray Palma MD PCP: Martha Brown DO Status: REG CLI Study: Hip 2-3 Views with Pelvis Date of Exam: 08/27/15 Exam# [id number] Ordering Dr: Martha Johnson DO STUDY: X-RAY [...] MD at 16:31 EDT , Service support [phone], CC: Martha Brown DO Mounter: Signed 09-Feb-2015 Chest PA and Lateral Result: Comments: See Note; NOTES: [facility] Imaging Services [address] [place] [address] Verdana 4d Chest PA and Lateral MR#: [id number] Acct: [id number] Name: TITA MCLEAN Rep #: [id number] : 1960 F 54 From: Barrera Galeana MD PCP: Martha Brown DO Status: REG CLI Study: Chest PA and Lateral Date of Exam: 02/09/15 Exam# [id number] Ordering Dr: Abby Rivera STUDY: X-RAY CHEST [...] Barrera Galeana MD at 15:21 EST Tel [phone], Service support [phone], RAD/Chest PA and Lateral IMPRESSION: Hyperinflation. No acute abnormality is seen. Electronically Signed: Barrera Galeana MD at 15:21 EST Tel [phone], Service support [phone], CC: Abby Rivera; Martha Brown DO Mounter: Signed 30-Jun-2014 Bilat Scrn Digital AND CAD Result: Comments: See Note; NOTES: [facility] Imaging Services [address] [facility] [place] [address] Breast Imaging Report MR#: [id number] Acct: [id number] Name: TITA LAW Rep #: [id number] : 1960 F 53 From: Barrera Galeana MD PCP: Martha Brown DO Status: REG CLI Study: Bilat Scrn Digital AND CAD Date of Exam: 06/30/14 Exam# [id number] Ordering Dr: Martha Brown DO MAMMOGRAPHY - [...] Galeana MD at 9 :06 EDT Tel [phone], Service support [phone], CC: Martha Brown DO Mounter: Signed 07-Oct-2013 Extremity Lower WITH Contrast Result: Comments: See Note; NOTES: [facility] Imaging Services [address] [place] [address] CAT Scan Report MR#: [id number] Acct: [id number] Name: TITA LAW Rep #: [id number] : 1960 F 53 From: Barrera Galeana MD PCP: Martha Brown DO Status: REG CLI Study: Extremity Lower WITH Contrast Date of Exam: 10/07/13 Exam# [id number] Ordering Dr: Martha Brown DO STUDY: CT [...] Barrera Galeana MD at 15:02 EDT Tel [phone], Service support , CC: Martha Brown DO Mounter: Signed 25-Sep-2013 Forearm 2 Views Result: Comments: See Note; NOTES: [facility] Imaging Services [address] [place] [address] Radiology Report MR#: [id number] Acct: [id number] Name: TITA LAW Rep #: [id number] : 1960 F 53 From: Barrera Galeana MD PCP: Martha Brown DO Status: REG CLI Study: Forearm 2 Views Date of Exam: 09/25/13 Exam# [id number] Ordering Dr: Martha Brown DO STUDY: X-RAY [...] Barrera Galeana MD at 16:16 EDT Tel [phone], Service support [phone], RAD/Forearm 2 Views IMPRESSION: Normal x-ray examination of the radius and ulna. Electronically Signed: Barrera Galeana MD at 16:16 EDT Tel [phone], Service support [phone], CC: Martha Brown DO Mounter: Signed 25-Sep-2013 Hip min 2 Views Result: Comments: See Note; NOTES: [facility] Imaging Services [address] [place] [address] Radiology Report MR#: [id number] Acct: [id number] Name: TITA LAW Rep #: [id number] : 1960 F 53 From: Barrera Galeana MD PCP: Martha Brown DO Status: REG CLI Study: Hip min 2 Views Date of Exam: 09/25/13 Exam# [id number] Ordering Dr: Martha Brown DO STUDY: X-RAY [...] Barrera Galeana MD at 16:18 EDT Tel [phone], Service support [phone], Fax CC: Martha Brown DO Mounter: Signed 25-Sep-2013 Pelvis 1 or 2 Views Result: Comments: See Note; NOTES: [facility] Imaging Services [address] [place] [address] Radiology Report MR#: [id number] Acct: [id number] Name: TITA LAW Rep #: [id number] : 1960 F 53 From: Khang Braun MD PCP: Martha Brown DO Status: REG CLI Study: Pelvis 1 or 2 Views Date of Exam: 09/25/13 Exam# [id number] Ordering Dr: Martha Brown DO STUDY: X-RAY [...] MD at 16:24 EDT , Service support [phone], 0063 RAD/Pelvis 1 or 2 Views IMPRESSION: Normal x-ray examination of the pelvis. Electronically Signed: Khang Braun MD at 16:24 EDT , Service support [phone], CC: Martha Brown DO Mounter: Signed 25-Sep-2013 Thoracic Spine 3 Views Result: Comments: See Note; NOTES: [facility] Imaging Services [address] [place] [address] Radiology Report MR#: [id number] Acct: [id number] Name: TITA LAW Rep #: [id number] : 1960 F 53 From: Barrera Galeana MD PCP: Martha Brown DO Status: REG CLI Study: Thoracic Spine 3 Views Date of Exam: 09/25/13 Exam# [id number] Ordering Dr: Martha Brown DO STUDY: X-RAY [...] Ac Galeana MD at 16:19 EDT Tel [phone], Service support [phone], RAD/Thoracic Spine 3 Views IMPRESSION: Degenerative changes. Elect ronically Signed: Barrera Galeana MD at 16:19 EDT Tel [phone], Service support [phone], CC: Martha Brown DO Mounter: Signed 24-Jun-2013 Bilat Scrn Digital & CAD Result: Comments: See Note; NOTES: [facility] Imaging Services [address] [place] [address] Breast Imaging Report MR#: [id number] Acct: [id number] Name: TITA LAW Rep #: [id number] : 1960 F 52 From: Barrera Galeana MD PCP: Martha Brown DO Status: REG CLI Exam# [id number] Ordering Dr: Shahla Myers MD MAMMOGRAPHY - [...] Barrera Galeana MD at 9:32 EDT Tel [phone], Service support [phone], F ax [phone] CC: Martha Brown DO; Shahla Myers MD Mounter: Signed 14-May-2013 Chest PA and Lateral Result: Comments: See Note; NOTES: [facility] Imaging Services [address] [place] [address] Radiology Report MR#: [id number] Acct: [id number] Name: TITA LAW Rep #: [id number] : 1960 F 52 From: Barrera Galeana MD PCP: Martha Brown DO Status: REG CLI Study: Chest PA and Lateral Date of Exam: 05/14/13 Exam# [id number] Ordering Dr: Martha Brown DO STUDY: X [...] M.D. at 14:47 EDT , Service support [phone], CC: Martha Brown DO Mounter: Signed Family History Unknown Family Member Name [...] smoker Vital Signs Date Test Result Details :25 Temperature 97.9 f Comments: Method: Temporal [...] kg/m2 Body Surface Area Calculated 1.8 m2 03-Otg-786275:15 Comments: jmtjlsqusk938/72, 60sitting 98/56 67standing 94/58, 78 Temperature 97.5 [...] kg/m2 Body Surface Area Calculated 1.67 m2 7-Ypj-996432:01 Temperature 98.1 f Comments: Method: Temporal Pulse [...] 155 lb Results Date Description Value Details 98-Job-221709:56 CBC W/Diff, Automated Comments: [facility] [address] [place], [place], [id number] Absolute Lymph 1.33 {X10_3/ul} (Normal) Range: 0.83-4.51 [...] 4.2-5.4 WBC 14.0 K/mm3 (Abnormal) Range: 4.4-11.0 66-Tfv-719088:56 Comprehensive Metabolic Profil Comments: [facility] [address] [place], [address] GAP 9 (Normal) Range: 5-15 CO2 26.0 [...] Comments: Please note revised GLUCOSE reference range lpwrkaynx03/02/2018. 90-Jch-671273:15 URINE ARELY CULTURE-IDENTIFICATN Comments: PATIENT NOT FASTINGPERFORMED BY: [facility] Gcmbid0913 [facility] [id number] Information: SRC:THAD (38410) Result 1 NG36 (Normal) Comments: No growth in 36 - 48 hours. Urine Culture,Comprehensive Final report (Normal) 70-Rnn-453772:01 Urinalysis, Office (36635) UA - LEUKOCYTE ESTERASE Large (Normal) UA - NITRITE Positive (Normal) URINE UROBILINGN SPRING TIMED 2 mg/dL (Normal) UA - PROTEIN 300 mg/dL (Normal) UA - PH 7 (Normal) UA - BLOOD Hemolyzed Large (Normal) UA - SPECIFIC GRAVITY 1.020 (Normal) UA - KETONES 15 mg/dL (Abnormal) UA - BILIRUBIN Large (Normal) UA - GLUCOSE Negative (Normal) 4-Moq-397550:45 Culture, Urine Comments: [facility] [address] [place], [address] CUUR See Note (Normal) Comments: Urine CultureORGANISM [...] $ >=320 R(NF) indicates non-formulary drug at [facility]. Approval by Infectious Disease Specialist required before non-formulary drugs may be ordered and/or dispensed. 9-Ssm-793711:45 Urinalysis, Complete Comments: How was Urine Obtained? CLEAN [facility] [address] [place], [address] CA OX CRYSTAL 1+ {/hpf} (Normal) MUCUS, [...] (Normal) CLARITY Cloudy (Normal) COLOR Yellow (Normal) 90-Tth-486920:49 CBC (AUTO) (05716) Comments: PATIENT NOT FASTINGPERFORMED BY: [facility] Oixdzv7309 [facility] [id number] Platelets 303 {x10E3/uL} (Normal) Range: 150-379 RDW 14.5 % (Normal) Range: 12.3-15.4 MCHC 33.9 g/dL (Normal) Range: 31.5-35.7 MCH 32.4 pg (Normal) Range: 26.6-33.0 MCV 96 fL (Normal) Range: 79-97 Hematocrit 37.5 % (Normal) Range: 34.0-46.6 Hemoglobin 12.7 g/dL (Normal) Range: 11.1-15.9 RBC 3.92 {x10E6/uL} (Normal) Range: 3.77-5.28 WBC 7.9 {x10E3/uL} (Normal) Range: 3.4-10.8 52-Jlo-327072:49 MICROALBUMIN: CREATININE RATIO Comments: PATIENT NOT FASTINGPERFORMED BY: [facility] JerseyVhekva6271 [facility] [id number] (44137) AND (73922) Alb/Creat Ratio 4.1 {mg/g_creat} (Normal) Range: 0.0-30.0 Comments: Normal: 0.0 - 30.0 Albuminuria: 31.0 - 300.0 Clinical albuminuria: >300.0 Albumin, Urine 6.7 ug/mL (Normal) Creatinine, Urine 161.5 mg/dL (Normal) 59-Aga-999906:49 METABOLIC PANEL, COMPREHENSIVE Comments: PATIENT NOT FASTINGPERFORMED BY: [facility] Uyfqab9089 [facility] [id number]; appt 12/05 (75498) ALT (SGPT) 14 [iU]/L (Normal) Range: 0-32 [...] 6-24 Glucose 94 mg/dL (Normal) Range: 65-99 8-Tfi-915135:22 CBC W/Diff, Automated Comments: [facility] [address] [place], [place], [address] Absolute Lymph 1.79 {X10_3/ul} (Normal) Range: 0.83-4.51 [...] 4.2-5.4 WBC 6.3 K/mm3 (Normal) Range: 4.4-11.0 6-Jvi-689498:22 Comprehensive Metabolic Profil Comments: [facility] [address] [place], [place], [address] GAP 8 (Normal) Range: 5-15 CO2 25.0 [...] Comments: Please note revised GLUCOSE reference range aklponoka95/02/2018. 4-Jun-588036:22 CRP Comments: [facility] [address] [place], [place], [address] C-REACTIVE PROT < 2.90 mg/L (Normal) Range: 0.0-3.0 Comments: C-Reactive Protein (CRP) provides useful information for thediagnosis, therapy and monitoring of inflammatory processesand associated diseases. For the evaluation of Relative Riskfor Cardiovascular Dise ase, a High Sensitivity CRP (HSCRP)should be ordered. :22 Erythrocyte Sed Rate Comments: [facility] [address] [place], [address] SED RATE 3 mm/h (Normal) Range: 0-30 4-Vib-991024:22 Hemoglobin A1c Comments: [facility] [address] [place], [address] HGB A1C 5.7 % (Normal) Range: 4.2-6.3 8-Ylw-016551:22 Lipid Profile Comments: [facility] [address] [place], [address] VLDL 21 mg/dL (Normal) Range: 5-40 [...] 200-240 mg/dL Borderline >240 mg/dL High Risk 6-Lsk-717232:22 Vitamin D,25 Hydroxy Comments: [facility] [address] [place], [address] Vitamin D 25-OH 36.0 ng/mL (Normal) Range: 29.95-100.01 Comments: Vitamin D 25(OH) Status Range Deficiency <20 ng/mL (50nmol/L) Insuffciency 20 - 30 ng/mL (50 - 75 nmol/L) Sufficiency 30 - 100 ng/mL (75 - 250 nmol/L) Toxicity >100 ng/mL (>250 nmol/L) 87-Rdr-195056:37 CBC W/Diff, Automated Comments: [facility] [address] [place], [id number] ; appt 5/2 Absolute Lymph 2.05 {X10_3/ul} [...] 4.2-5.4 WBC 5.5 K/mm3 (Normal) Range: 4.4-11.0 10-Bqj-461108:37 Comprehensive Metabolic Profil Comments: [facility] [address] [place], [place], [address] GAP 8 (Normal) Range: 5-15 CO2 24.0 [...] Please note revised GLUCOSE reference range /02/2018. 94-Lgt-446993:37 Hemoglobin A1c Comments: [facility] [address]tl7932 [facility] [place], [place], [phone] HGB A1C 5.9 % (Normal) Range: 4.2-6.3 50-Gyf-603560:37 Lipid Profile Comments: [facility] Ybt[address]cb[address]xca1686 [facility], [address] VLDL 16 mg/dL (Normal) Range: 5-40 LDL [...] 200-240 mg/dL Borderline >240 mg/dL High Risk 73-Phv-557715:06 METABOLIC PANEL, COMPREHENSIVE Comments: PATIENT NOT FASTINGPERFORMED BY: JUAN LUIS [facility] Kdfhuk0158 [facility] [id number] (72637) ALT (SGPT) 19 [iU]/L (Normal) Range: 0-32 [...] Glucose, Serum 84 mg/dL (Normal) Range: 65-99 96-Ipm-165961:26 CBC W/Diff, Automated Comments: [facility] [address] [place], [address] ; patient coming in today Absolute Lymph [...] 4.2-5.4 WBC 10.1 K/mm3 (Normal) Range: 4.4-11.0 55-Tdi-527811:26 EBV Acute Prof IgG / IgM Comments: [...] Present - Antibody Ab sentPerformed at: - [facility] [id number] Director: Sean Daniel PhD, Phone: [phone] EB-NAg WiP02828 > 600.0 U/mL (Abnormal) Range: 0.0-17.9 Comments: Negative <18.0 Equivocal 18.0 - 21.9 Positive >21.9 EB-VCA YyM82323 226.0 U/mL (Abnormal) Range: 0.0-17.9 Comments: Negative <18.0 Equivocal 18.0 - 21.9 Positive >21.9 EB-EA IgG 80160 49.1 U/mL (Abnormal) Range: 0.0-8.9 Comments: Hepatitis A, Hepatitis C and HIV antibodies may cross-reactwith this assay. Negative < 9.0 Equivocal 9.0 - 10.9 Positive >10.9 EB-VCA [id number] < 36.0 U/mL (Normal) Range: 0.0-35.9 Comments: Negative <36.0 Equivocal 36.0 - 43.9 Positive >43.9 79-Blx-381565:37 Basic Metabolic Profile (BMP) Comments: [facility] [address] [place], [place], [address] GAP 8 (Normal) Range: 5-15 CO2 23.0 [...] A.D.A. criteria.Please note revised GLUCOSE reference range okwhscrcs67/02/2018. 80-Sre-765779:37 CBC W/Diff, Automated Comments: [facility] [address] [place], [address] Absolute Lymph 2.00 {X10_3/ul} (Normal) Range: 0.83-4.51 [...] 4.2-5.4 WBC 8.8 K/mm3 (Normal) Range: 4.4-11.0 57-Jeq-129793:30 CBC With Differential/Platelet Comments: PERFORMED BY: [facility] JerseySgldyc7874 [facility] [id number] Information: [facility] PATIENT - NURSE Immature Grans [...] 3.77-5.28 WBC 6.8 {x10E3/uL} (Normal) Range: 3.4-10.8 75-Npy-050985:30 Comp. Metabolic Panel (14) Comments: PERFORMED BY: [facility] JerseyLkgeqa9770 [facility] [id number]; can review at upcoming appt ALT (SGPT) [...] 98 mg/dL (Normal) Range: 65-99 :21 TSH (15002) Comments: PATIENT NOT FASTINGPERFORMED BY: [facility]6370 [facility] [id number] TSH 2.830 {uIU/mL} (Normal) Range: 0.450-4.500 :21 T3, FREE (TRIDOTHYRONINE) (26656) Comments: PATIENT NOT FASTINGPERFORMED BY: [place] 137[address]370 [facility] [id number] Triiodothyronine,Free,Serum 2.6 pg/mL (Normal) Range: 2.0-4.4 :21 T4, FREE (THYROXINE) (27861) Comments: PATIENT NOT FASTINGPERFORMED BY: [facility] [place] [address] [id number] T4,Free(Direct) 1.12 ng/dL (Normal) Range: 0.82-1.77 :32 CBC W/Diff, Automated Comments: [facility] [address] [place], [address] Absolute Lymph 3.84 {X10_3/ul} (Normal) Range: 0.83-4.51 [...] 4.2-5.4 WBC 7.6 K/mm3 (Normal) Range: 4.4-11.0 92-Gxu-41558:32 Comprehensive Metabolic Profil Comments: [facility] [address] [place], [place], [address] ; non-emergent till next weeks apt GAP [...] (Normal) Range: 70-110 :32 Hemoglobin A1c Comments: [facility] Rrzerzxyek6614 [facility] [place], [place], [address] HGB A1C 6.2 % (Normal) Range: 4.2-6.3 :32 Lipid Profile Comments: [facility] [address]0012 [facility] [place], [place], [address] VLDL 19 mg/dL (Normal) Range: 5-40 LDL [...] High Risk :36 CBC W/Diff, Automated Comments: [facility] [address] [place], [place], [address] Absolute Lymph 2.01 {X10_3/ul} (Normal) Range: 0.83-4.51 [...] Range: 4.4-11.0 :36 Comprehensive Metabolic Profil Comments: [facility] [address] [place], [place], [address] GAP 10 (Normal) Range: 5-15 CO2 25.0 [...] mg/dL (Normal) Range: 70-110 :36 CRP Comments: [facility] [address] [place], [place], [address] C-REACTIVE PROT < 2.90 mg/L (Normal) Range: 0.0-3.0 Comments: C-Reactive Protein (CRP) provides useful information for thediagnosis, therapy and monitoring of inflammatory processesand associated diseases. For the evaluation of Relative Riskfor Cardiovascular Dise ase, a High Sensitivity CRP (HSCRP)should be ordered. :36 Culture, Urine Comments: [facility] [address] [place], [place], [address] CUUR See Note (Normal) Comments: Urine CultureCOLONY COUNT 400 CFU/ML Below infection level. ORGANISM 1: GNR Poss Pseudomonas spColony Count <1000 :36 Erythrocyte Sed Rate Comments: [address] [place], [place], [id number] SED RATE 5 mm/h (Normal) Range: 0-30 :36 Free T3 Comments: [facility] [address] [place], [address] FREE T3 2.4 pg/mL (Normal) Range: 2.18-3.98 :36 Rheumatoid Factor Comments: [facility] [address] [place], [address] RHEUMATOID FAC < 10.0 {IU/mL} (Normal) :36 T4 Free Direct Comments: [place] [address] [place], [id number] T4 FREE DIRECT 1.09 ng/dL (Normal) Range: 0.76-1.46 :36 Thyroid Stim Hormone (TSH) Comments: [address] [place], [address] TSH 0.08 {uIU/mL} (Abnormal) Range: 0.358-3.74 :36 Uric Acid Comments: [place] [address] [place], [address] URIC 3.6 mg/dL (Normal) Range: 2.6-6.0 Comments: The drugs N-Acetylcysteine and Metamizole may falsely deressthis assay. 37-Air-53495:30 URINE ARELY CULTURE-SPRING COL Comments: PERFORMED BY: [facility] JerseyAanvjj1421 [facility] [id number] Information: SRC:UR COUNT (62755) Result 1 MUG (Normal) Comments: Mixed urogenital flora1,000 Colonies/mL Urine Culture,Comprehensive Final report (Normal) 90-Phb-650240:20 Urinalysis, Office (09609) UA - LEUKOCYTE ESTERASE Negative (Normal) UA - NITRITE Negative (Normal) URINE UROBILINGN SPRING TIMED Normal mg/dL (Normal) UA - PROTEIN Negative mg/dL (Normal) UA - PH 7 (Normal) UA - BLOOD Negative (Normal) UA - SPECIFIC GRAVITY 1.015 (Normal) UA - KETONES Negative mg/dL (Normal) UA - BILIRUBIN Negative (Normal) UA - GLUCOSE Negative (Normal) 9-Qyc-709955:52 ARELY CULTURE-OTHER (05601) Comments: PATIENT NOT FASTINGPERFORMED BY: [address] [id number] Information: THROAT SRC:TH Result 1 RRF (Normal) Comments: Routine respiratory kaylene Upper Respiratory Culture Final report (Normal) 0-Mom-090827:07 Rapid Strep Test, Office (69734) Rapid Strep Test, Negative (Normal) Office 08-Hfd-488316:2 Magnesium, Serum 2.0 mg/dL (Normal) Comments: PATIENT NOT FASTINGPERFORMED BY: [address] [id number] Information: SRC:UC 1 Range: 1.6-2.3 48-Icc-995794:21 Microscopic Examination Comments: PATIENT NOT FASTINGPERFORMED BY: [address] [id number] BY: [employer] [id number] Bacteria None seen (Normal) Epithelial Cells (non None seen {/hpf} Range: 0 - 10 renal) (Normal) RBC 0-2 {/hpf} Range: 0 - 2 (Normal) WBC 0-5 {/hpf} Range: 0 - 5 (Normal) Sodium, Urine <20 mmol/L Comments: PATIENT NOT FASTINGPERFORMED BY: [employer] [id number] BY: [employer] [id number] 4:21 (Normal) Written Authorization WAR (Normal) Comments: PATIENT NOT FASTINGPERFORMED BY: [place] 137[address]370 [facility] [id number] 4:21 Comments: Written Authorization Received.Authorization received from YURIY VERNON LPN [id number] by Tg Stewart 05-Typ-650161:21 URINE ARELY CULTURE-IDENTIFICATN Comments: PATIENT NOT FASTINGPERFORMED BY: [place]change[place] 1150770 [facility] [id number] BY: [address] [id number] (17881) Result 1 NG36 (Normal) Comments: No growth in 36 - 48 hours. Urine Culture,Comprehensive Final report (Normal) 44-Isx-269488:21 URINALYSIS, W/ MICRO Comments: PATIENT NOT FASTINGPERFORMED BY: [employer] Wzsvqn3598 [facility] [id number] BY: [address] [id number] Information: SRC:THAD (32519) Microscopic Examination See below: (Normal) Comments: Microscopic was indicated and was performed. Microscopic Examination MICRON (Normal) Comments: Microscopic follows if indicated. Nitrite, Urine Negative (Normal) Urobilinogen,Semi-Qn 0.2 mg/dL (Normal) Range: 0.2-1.0 Bilirubin Negative (Normal) Occult Blood Negative (Normal) Ketones Negative (Normal) Glucose Negative (Normal) Protein Negative (Normal) WBC Esterase Negative (Normal) Appearance Clear (Normal) Urine-Color Yellow (Normal) pH 7.0 (Normal) Range: 5.0-7.5 Specific [place] 1.007 (Normal) Range: 1.005-1.030 13-Trt-699486:21 OSMOLALITY URINE (77004) Comments: PATIENT NOT FASTINGPERFORMED BY: [employer] Qoiefn0247 [facility] [id number] BY: [address] [id number] Osmolality, Urine 98 {mOsmol/kg} (Normal) Comments: 24 hr : 300 - 900 Random: 50 - 1400 After 12hr fluid restriction: >850 21-Aee-148396:21 OSMOLALITY BLOOD (12406) Comments: PATIENT NOT FASTINGPERFORMED BY: [place] 1150770 [facility] [id number] BY: [address] [id number] Osmolality 265 {mOsmol/kg} (Abnormal) Range: 275-295 36-Nhz-910943:21 SODIUM SERUM (74866) Comments: PATIENT NOT FASTINGPERFORMED BY: CB [facility] Yvgtdp1718 Jenny Rendonkody ID [id number] BY: BN [facility] Fzesspbiem4506 [facility] [id number] Sodium, Serum 132 mmol/L (Abnormal) Range: 134-144 96-Ldu-278399:15 Comprehensive Metabolic Profil Comments: [facility] [address]iwg[address] [place], [address] GAP 9 (Normal) Range: 5-15 CO2 25.0 [...] 7-18 GLU 86 mg/dL (Normal) Range: 70-110 29-Ihi-526358:15 Free T3 Comments: [facility] [address] [place], [place], [address] FREE T3 2.3 pg/mL (Normal) Range: 2.18-3.98 38-Aky-219836:15 Phosphorus Comments: [facility] [address] [place], [place], [address] PHOS 2.9 mg/dL (Normal) Range: 2.5-4.9 30-Sbk-798214:15 PTH,INTACT Comments: [facility] [address] [place], [place], [address] PTH,Intact 35 pg/mL (Normal) Range: 14-72 34-Rou-223624:15 T4 Free Direct Comments: [facility] [address] [place], [address] T4 FREE DIRECT 1.06 ng/dL (Normal) Range: 0.76-1.46 74-Jwe-335254:15 Thyroid Stim Hormone (TSH) Comments: [facility] [address] [place], [place], [address] TSH 5.47 {uIU/mL} (Abnormal) Range: 0.358-3.74 35-Slr-358106:15 Vitamin D,25 Hydroxy Comments: [facility] [address] [place], [place], [address] Vitamin D 25-OH 38.0 ng/mL (Normal) Comments: Vitamin D 25(OH) Status Range Deficiency <20 ng/mL (50nmol/L) Insuffciency 20 - 30 ng/mL (50 - 75 nmol/L) Sufficiency 30 - 100 ng/mL (75 - 250 nmol/L) Toxicity >100 ng/mL (>250 nmol/L) 7-Agb-602996:31 Comprehensive Metabolic Profil Comments: [facility] [address] [place], [place], [address] GAP 11 (Normal) Range: 5-15 CO2 24.0 [...] 7-18 GLU 96 mg/dL (Normal) Range: 70-110 1-Iwd-626678:31 Free T3 Comments: [facility] [address]cj[address] [place], [address] FREE T3 2.3 pg/mL (Normal) Range: 2.18-3.98 9-Qps-263113:31 Hemoglobin A1c Comments: [facility] [address] [place], [address] HGB A1C 5.7 % (Normal) Range: 4.2-6.3 8-Xse-321223:31 Lipid Profile Comments: [facility] [address] [place], [address] VLDL 19 mg/dL (Normal) Range: [...] 200-240 mg/dL Borderline >240 mg/dL High Risk 2-Eej-299068:31 Microalb:Creat Ratio,Random UR Comments: [facility] [address] [place], [place], [address] MALB:CREAT 5.4 {mg/g_CRE} (Normal) MICROALBUMIN,UR 6.7 mg/L (Normal) UR CREAT 124.00 mg/dL (Normal) 9-Uzc-653784:31 T4 Free Direct Comments: [facility] [address] [place], [place], [address] T4 FREE DIRECT 0.70 ng/dL (Abnormal) Range: 0.76-1.46 1-Tfc-168245:31 Thyroid Stim Hormone (TSH) Comments: [facility] [address] [place], [address] TSH 4.87 {uIU/mL} (Abnormal) Range: 0.358-3.74 1-Ruk-058887:49 [facility] Label Folder AB, Blocking Comments: [facility] (refer to report for specific site)refer to report for address and phone number [facility] REC 20528 19 % (Normal) Range: 0-25 Comments: Negative: 0 - 25 Borderline: 26 - 30 Positive: >30Results for this test are for research purposesonly by the assay's [facility] jennifer. The performancecharacteristics of this product have not beenestablished. Results should not be used as adiagnostic procedure without confirmation of thediagnosis by another medically establishe ddiagnostic product or procedure.Performed at: - [facility] [id number] Director: Eusebio Live MD, Phone: [phone] 4-Cdv-704285:49 Lyme Antibodies,W Blot Comments: [facility] (refer to [...] positivity are those recommended byCDC/ASTPHLD. p23=Osp C, x75=ijhfdwdenSrfy:Sera from individuals with the following may cross [...] Ab Absent (Normal) P93 Ab Absent (Normal) 49-Sfn-09186:39 Acid Fast Bact Cult/Sm Comments: [facility] [address] [place], [place], [address] AFBCS See Note Comments: AFB Smear/Fluor TESTING PERFORMED AT [facility]. ORIGINAL REPORT ON FILE IN LAB CONTAINS ADDITIONAL TEST SITE INFORMATION. (Normal) Smear, Acid Fast NO ACID-FAST BACILLI OBSERVED ON SMEAR. AFB Cult TESTING PERFORMED AT [facility]. ORIGIN AL REPORT ON FILE IN LAB CONTAINS ADDITIONAL TEST SITE INFORMATION. Culture, Acid Fast NO ACID-FAST BACILLI ISOLATED AFTER 6 WEEKS. :39 Body Fluid Cell Count+Diff Comments: Specimen Source: [facility] [address] [place], [address] PATH COMM/BF May follow (Normal) BF PMN [...] Body Fluid / CSF Comments: Specimen Source: [facility] [address] [place], [address] CYTOLOGY,BF/CSF SEE PATHOLOGY REPORT Comments: Specimen submitted to Anatomical Pathology Department fortesting. (Normal) :39 CYTOSPIN ON FLUID See Note (Normal) Comments: [facility] [address] [place], [address] Comments: Patient: TITA LAW : 1960 (55/F) Acct Num: [id number] Phys: Momo BRADY, Pepper Unit Num: [id number] Loc: RAD Specimen: [id number] Received: 03/15/16 - 1239 Spec Type: CYSPIN FL TISSUES TISSUES: CYTOLOGY GROSS Received is 3 ml of clear, colorless fluid labeled with the patient's name and and designated per the requisition as CSF. Submitted f or cytology preparation. 03/15/16 TC:4 CPT: 40526 CYTOLOGY STUDY Slides are reviewed. DIAGNOSIS CYTOLOGY Cerebrospinal fluid (cytospins): The specimen is acellular. SJ:tiffanie 7 HEADER OPERATION: Lumbar puncture PRE-OP DIAGNOSIS: Rule out MS TISSUE SUBMITTED: Cerebrospinal fluid Signed Christian Holt 03/16/16 <signature on file> :39 Glucose Spinal Fluid Comments: Comments: PROTEIN ELCTRO-CSF LC#[id number] Source? [facility] [address] [place], [place], [address] GLU SPINAL FLD 57 mg/dL (Normal) Range: 40-75 10-Rha-43800:39 Miscellaneous Lab Procedure Comments: Comments: PROTEIN ELCTRO- CSF LC#[id number](s) Ordered: PROTEIN ELCTRO-CSF LC#[id number] [address] [place], [place], [address] MISC Comments: TEST RESULT UNITS REFERENCE INTERVALProtein Electrophoresis, CSFProtein, Total, CSF 36.7 mg/dL 0.0 - 44.0Pre- Albumin (CSF) 2.6 % 2.2 - 7.1Albumin LAB (Normal) (CSF) 68.5 % 56.8 - 76.2Bkvbi-8-Hecierjr CSF 3.9 % 1.1 - 6.1Jkeee-0-Hhzmfgch CSF 4.6 % 3.0 - 12.6Beta Globulin (CSF) 15.0 % 7 TEST .3 - 17.9Gamma Globulin (CSF) 5.5 % 3.0 - 13.0Protein electrophoresis scan will follow via computer, mail,or personal fitness manager delivery.M-Logan Not Observed % Not Observed__ TESTING PERFORMED AT [facility]. ORIGINAL REPORT ON FILE IN LAB CONTAINS ADDITIONAL TEST SITE INFORMATION. :39 Myelin Basic Protein, MBP Comments: [facility] (refer to report for specific site)refer to report for address and phone number MBP [id number] 1.8 ng/mL (Abnormal) Range: 0.0-1.2 Comments: Results for this test are for research purposes only by theassay's lens shaper grinder. The performance characteristics ofthis product have not been established. Results should notbe used as a diagnostic pro cedure without confirmation ofthe diagnosis by another medically established diagnosticproduct or procedure. :39 Protein Spinal Fluid Comments: Comments: PROTEIN ELCTRO-CSF #[id number] Source? [facility] [address] [place], [place], [address] PROTEIN CSF 38.0 mg/dL (Normal) Range: 15.0-45.0 [...] CSF IgG 1.9 mg/dL (Normal) Range: 0.0-8.6 08-Zej-55893:04 Oligoclonal Bands Panel Comments: [facility] (refer to report for specific site)refer to report for address and phone number OLIG BAND COM Comment (Normal) Comments: Zero (0) oligoclonal bands were observed in the CSF.Interpretation: Criteria for Positivity: Four (4) or more oligoclonalbands observed only in the CSF have been shown to be mostconsistent with MS usi ng our method. [Mikayla , Michelle, Lesly FARIAS, and Mary Grace JA: Cerebrospinal FluidOligoclonal Bands [...] using IsoelectricFocusing (IEF) and immunoblotting methodology.Performed at: [address] [id number] Director: Sean Daniel PhD, Phone: [phone] OLIG BAND REF LAB (Normal) 03-Mgu-80812:04 Protein Electroph, S Comments: [facility] (refer to report for specific site)refer to report for address and phone number NOTE: Comment (Normal) Comments: The SPE pattern appears essentially unremarkable. Evidenceof monoclonal protein is not apparent. INTERPRETATION Comment (Normal) Comments: Protein electrophoresis scan will follow via computer,mail, or personal fitness manager delivery. A/G RATIO 1.4 (Normal) Range: 0.7-1.7 GLOBULIN, TOTAL 2.8 g/dL (Normal) Range: 2.2-3.9 M-SPIKE g/dL (Normal) Comments: Not Observed GAMMA GLOBULIN 0.9 g/dL (Normal) Range: 0.4-1.8 BETA GLOBULIN 0.9 g/dL (Normal) Range: 0.7-1.3 ALPHA-2 GLOBUL 0.7 g/dL (Normal) Range: 0.4-1.0 ALPHA-1 GLOBUL 0.2 g/dL (Normal) Range: 0.0-0.4 ALBUMIN 3.9 g/dL (Normal) Range: 2.9-4.4 PROTEIN,TOTAL 6.7 g/dL (Normal) Range: 6.0-8.5 6-Fax-972794:15 CBC W/Diff, Automated Comments: DR VILLAFANA ORDERED CBCD/CMPDR FAST ORDERED BMP/FT3/FT4/TSHDR TRES ORDERED CBCD/CMPDR FAST ORDERED BMP/FT3/FT4/[facility] [address] [place], [place], [address] Absolute Lymph 1.41 {X10_3/ul} (Normal) Range: 0.83-4.51 [...] 4.2-5.4 WBC 8.2 K/mm3 (Normal) Range: 4.4-11.0 0-Vkv-353411:15 Comprehensive Metabolic Profil Comments: DR VILLAFANA ORDERED CBCD/CMPDR FAST ORDERED BMP/FT3/FT4/[facility] [address]bf[address]50 [facility] [place], [place], [address] GAP 9 (Normal) Range: 5-15 CO2 26.0 [...] 7-18 GLU 92 mg/dL (Normal) Range: 70-110 1-Tvi-508229:15 Free T3 Comments: DR VILLAFANA ORDERED CBCD/CMPDR FAST ORDERED BMP/FT3/FT4/[facility] [address] [place], [address] FREE T3 2.2 pg/mL (Normal) Range: 2.18-3.98 8-Bjy-167965:15 T4 Free Direct Comments: DR VILLAFANA ORDERED CBCD/CMPDR FAST ORDERED BMP/FT3/FT4/[facility] [address] [place], [address] T4 FREE DIRECT 0.96 ng/dL (Normal) Range: 0.76-1.46 2-Mvd-593222:15 Thyroid Stim Hormone (TSH) Comments: DR VILLAFANA ORDERED CBCD/CMPDR FAST ORDERED BMP/FT3/FT4/[facility] [address] [place], [place], [phone] TSH 0.13 {uIU/mL} (Abnormal) Range: 0.358-3.74 32-Mjo-276475:21 Metabolic Panel, Basic Comments: PATIENT NOT FASTINGPERFORMED BY: [facility] JerseyPfqeui3046 [facility] [id number] (75411) Calcium, Serum 9.5 mg/dL (Normal) Range: 8.7-10.2 [...] 85 mg/dL (Normal) Range: 65-99 :21 TSH (26301) Comments: PATIENT NOT FASTINGPERFORMED BY: [facility]6370 [facility] [id number] TSH 0.031 {uIU/mL} (Abnormal) Range: 0.450-4.500 :21 T3, FREE (TRIDOTHYRONINE) (07663) Comments: PATIENT NOT FASTINGPERFORMED BY: [facility]6370 [facility] [id number] Triiodothyronine,Free,Serum 3.3 pg/mL (Normal) Range: 2.0-4.4 :21 T4, FREE (THYROXINE) (30667) Comments: PATIENT NOT FASTINGPERFORMED BY: [facility]6370 [facility] [id number] T4,Free(Direct) 1.52 ng/dL (Normal) Range: 0.82-1.77 :56 CBC W/Diff, Automated Comments: [facility] [address] [place], [place], [address] Absolute Lymph 1.43 {X10_3/ul} (Normal) Range: 0.83-4.51 [...] 4.2-5.4 WBC 6.3 K/mm3 (Normal) Range: 4.4-11.0 07-Vcf-58937:56 Comprehensive Metabolic Profil Comments: [facility] [address] [place], [place], [address] GAP 9 (Normal) Range: 5-15 CO2 26.0 [...] (Normal) Range: 70-110 :56 Hemoglobin A1c Comments: [facility] [address] [place], [address] HGB A1C 5.4 % (Normal) Range: 4.2-6.3 :56 Microalb:Creat Ratio,Random UR Comments: [facility] [address] [facility], [address] MALB:CREAT Test not performed {mg/g_CRE} [...] the [place] Food and Drug Administration.Performed at: [place] [id number] [place] [id number] Director: Eusebio Live MD, Phone: [phone] INS RES/DIAB RK . (Normal) LDL SIZE [...] mg/dL (Abnormal) Range: 100-199 LIPIDS . (Normal) 33-Bkb-851148:26 Microscopic Examination Comments: PATIENT NOT FASTINGPERFORMED BY: [facility]6370 [facility] [id number] Bacteria Few (Normal) Epithelial Cells (non renal) 0-10 {/hpf} (Normal) Range: 0 - 10 RBC 0-2 {/hpf} (Normal) Range: 0 - 2 WBC 0-5 {/hpf} (Normal) Range: 0 - 5 :26 METABOLIC PANEL, COMPREHENSIVE Comments: PATIENT NOT FASTINGPERFORMED BY: [employer] Rpbqfr6720 [facility] [id number] (13133) ALT (SGPT) 23 [iU]/L (Normal) Range: 0-32 [...] Glucose, Serum 84 mg/dL (Normal) Range: 65-99 34-Llf-050151:26 URINE ARELY CULTURE-IDENTIFICATN Comments: PATIENT NOT FASTINGPERFORMED BY: [employer] Cgegem9616 [facility] [id number] (18954) Result 1 NG36 (Normal) Comments: No growth in 36 - 48 hours. Urine Culture,Comprehensive Final report (Normal) :26 CBC W/AUTO DIFF WBC Comments: PATIENT NOT FASTINGPERFORMED BY: [facility]changeRe[facility] JerseyYrvahl1186 [facility] [id number] Information: SRC:UC (71282) Immature Grans (Abs) 0.0 {x10E3/uL} (Normal) Range: [...] (Normal) Range: 3.4-10.8 :26 URINALYSIS, W/ MICRO (22481) Comments: PATIENT NOT FASTINGPERFORMED BY: [facility]6370 [facility] [id number] Microscopic Examination See below: (Normal) Comments: Microscopic was indicated and was performed. Microscopic Examination MICRON (Normal) Comments: Microscopic follows if indicated. Nitrite, Urine Negative (Normal) Urobilinogen,Semi-Qn 0.2 mg/dL (Normal) Range: 0.2-1.0 Bilirubin Negative (Normal) Occult Blood Negative (Normal) Ketones Negative (Normal) Glucose Negative (Normal) Protein Negative (Normal) WBC Esterase Negative (Normal) Appearance Clear (Normal) Urine-Color Yellow (Normal) pH 7.5 (Normal) Range: 5.0-7.5 Specific [place] 1.005 (Normal) Range: 1.005-1.030 :53 Partial Thromboplast Time Comments: [facility] [address] [place], [address] PTT 34.1 s (Normal) Range: 24.1-36.2 :53 Prothrombin Time w/INR Comments: [address] [place], [place], [address]39(975) INR 1.1 (Normal) PROTIME 14.1 s (Normal) Range: 11.7-14.9 :43 CBC W/Diff, Automated Comments: [address] [place], [place], [address]) Absolute Lymph 1.00 {X10_3/ul} (Normal) Range: 0.83-4.51 [...] 4.2-5.4 WBC 16.5 K/mm3 (Abnormal) Range: 4.4-11.0 19-Xqh-489234:43 Comprehensive Metabolic Profil Comments: [facility] [address] [place], [place], [address] GAP 11 (Normal) Range: 5-15 CO2 24.0 [...] 7-18 GLU 82 mg/dL (Normal) Range: 70-110 88-Krj-939507:43 Lactic Acid Comments: [facility] [address] [place], [address] LACTIC ACID 1.5 mmol/L (Normal) Range: 0.4-2.0 9-Tfj-678231:06 Metabolic Panel, Basic (73616) Comments: PATIENT NOT FASTINGPERFORMED BY: [place] [id number] Calcium, Serum 9.9 mg/dL (Normal) Range: 8.7-10.2 [...] Glucose, Serum 82 mg/dL (Normal) Range: 65-99 3-Ftg-729044:06 PHOSPHORUS (53329) Comments: PATIENT NOT FASTINGPERFORMED BY: [place] ID [id number] Phosphorus, Serum 3.8 mg/dL (Normal) Range: 2.5-4.5 0-Qoh-541412:06 PARATHORMONE (05222) Comments: PATIENT NOT FASTINGPERFORMED BY: [email or web address] ID [id number] PTH, Intact 30 pg/mL (Normal) Range: 15-65 6-Zxy-181306:06 SPEP (06405) Comments: PATIENT NOT FASTINGPERFORMED BY: [place] 1378370 [facility] [id number] Information: [id number] Please note: SPRCS (Normal) Comments: Protein electrophoresis scan will follow via computer, mail, orcourier delivery. A/G Ratio 1.4 (Normal) Range: 0.7-1.7 Globulin, Total 3.1 g/dL (Normal) Range: 2.2-3.9 M-Logan Not Observed g/dL (Normal) Gamma Globulin 1.1 g/dL (Normal) Range: 0.4-1.8 Beta Globulin 1.0 g/dL (Normal) Range: 0.7-1.3 Ruogq-2-Ucloewlm 0.8 g/dL (Normal) Range: 0.4-1.0 Yeacr-8-Xpyakzsx 0.3 g/dL (Normal) Range: 0.0-0.4 Albumin 4.4 g/dL (Normal) Range: 2.9-4.4 Protein, Total, Serum 7.5 g/dL (Normal) Range: 6.0-8.5 0-Qdr-144138:06 UP (06988) Comments: PATIENT NOT FASTINGPERFORMED BY: [facility]6370 [facility] [id number] Please note: SPRCS (Normal) Comments: Protein electrophoresis scan will follow via computer, mail, orcourier delivery. M-Logan, % Not Observed % (Normal) Gamma Globulin, U 43.5 % (Normal) Beta Globulin, U 33.9 % (Normal) Eaquk-2-Zwjpwrlv, U 9.6 % (Normal) Ubzqv-4-Peyrpnmb, U 0.8 % (Normal) Albumin, U 12.1 % (Normal) Protein,Total,Urine <4.0 mg/dL (Normal) Comments: Verified by repeat analysis 8-Mur-270770:23 URINE CALCIUM SPRING TIMED Comments: PATIENT NOT FASTINGPERFORMED BY: [place] 1378370 [facility] [id number] Information: [id number] 24 Hour (76029) Calcium, Urine 24hr 133.5 {mg/24_hr} (Normal) Range: 100.0-300.0 Calcium, Urine 3.0 mg/dL (Normal) :08 METABOLIC PANEL, Comments: PATIENT NOT FASTINGPERFORMED BY: [facility] Rohvwk2348 Jenny Figueroa ID [id number] Information: [id number] COMPREHENSIVE (15418) ALT (SGPT) 15 [iU]/L (Normal) Range: 0-32 [...] mg/dL (Normal) Range: 65-99 :34 Urinalysis, Office (79554) UA - LEUKOCYTE ESTERASE Negative (Normal) UA [...] (SPRING Comments: PATIENT NOT FASTINGPERFORMED BY: [facility] Qikrvh8638 [facility] [id number] Information: SRC:[facility] [id number] COL COUNT) (80953) Result 1 NG36 (Normal) Comments: No growth in 36 - 48 hours. Urine Culture,Comprehensive Final report (Normal) 73-Prg-399395:00 CBC W/Diff, Automated Comments: [facility] [address]cljtcy[address] [place], [address] Absolute Lymph 1.49 {X10_3/ul} (Normal) Range: 0.83-4.51 [...] 4.2-5.4 WBC 6.2 K/mm3 (Normal) Range: 4.4-11.0 98-Qto-796675:00 Comprehensive Metabolic Profil Comments: [facility] [address] [place], [place], [address] GAP 5 (Normal) Range: 5-15 CO2 28.0 [...] 7-18 GLU 93 mg/dL (Normal) Range: 70-110 90-Aqg-745087:00 Free T3 Comments: [facility] [address] [place], [place], [address] FREE T3 2.9 pg/mL (Normal) Range: 2.18-3.98 34-Xkk-265380:00 T4 Free Direct Comments: [facility] [address] [place], [address] T4 FREE DIRECT 1.07 ng/dL (Normal) Range: 0.76-1.46 52-Vfo-502047:00 Thyroid Stim Hormone (TSH) Comments: [facility] [address]uf[address] [place], [address] TSH 0.16 {uIU/mL} (Abnormal) Range: 0.358-3.74 :38 HGB A1C (82661) Comments: PATIENT NOT FASTINGPERFORMED BY: JUAN LUIS [address] [id number] Information: [id number] Hemoglobin A1c 5.7 % (Abnormal) Range: 4.8-5.6 Comments: . Pre-diabetes: 5.7 - 6.4 Diabetes: >6.4 Glycemic control for adults with diabetes: <7.0 David Arce BMP8 SPRCS (Normal) Comments: A courtesy copy of this report has been sent [facility].PATIENT WAS FASTINGPERFORMED BY: JUAN LUIS [address] [id number] :51 Default Comments: A hand-written panel/profile was received from your office. Inaccordance with the [facility] Ambiguous Test Code Policy dated August2002, we have completed your order by using the closest currentlyor formerl y recognized AMA panel. We have assigned Basic MetabolicPanel (8), Test Code #688796 to this request. If this is not thetesting you wished to receive on this specimen, please contact [facility] Client Inquiry/Technical Services Department to clarify thetest order. We appreciate your business. [employer] Arce [employer] Default SPRCS (Normal) Comments: A courtesy copy of this report has been sent [facility].PATIENT WAS FASTINGPERFORMED BY: [address] [id number] :51 Comments: A hand-written panel/profile was received from your office. Inaccordance with the [facility] Ambiguous Test Code Policy dated August2002, we have completed your order by using the closest currentlyor formerl y recognized AMA panel. We have assigned Lipid Panel,Test Code #542607 to this request. If this is not the testing youwished to receive on this specimen, please contact the [facility] Inquiry/Techni alberto Services Department to clarify the testorder. We appreciate your business. 29-Yld-600501:51 CBC With Differential/Platelet Comments: A courtesy copy of this report has been sent [facility].PATIENT WAS FASTINGPERFORMED BY: JUAN LUIS [facility] Gcqcwj4566 [facility] [id number] Immature Grans (Abs) 0.0 {x10E3/uL} (Normal) Range: [...] 3.77-5.28 WBC 4.8 {x10E3/uL} (Normal) Range: 3.4-10.8 04-Odx-384859:51 Comp. Metabolic Panel (14) Comments: A courtesy copy of this report has been sent [facility].PATIENT WAS FASTINGPERFORMED BY: [employer] Ydedji2191 [facility] [id number] ALT (SGPT) 14 [iU]/L (Normal) Range: 0-32 [...] Glucose, Serum 101 mg/dL (Abnormal) Range: 65-99 69-Hip-118337:51 Lipid Panel Comments: A courtesy copy of this report has been sent [facility].PATIENT WAS FASTINGPERFORMED BY: [facility]Re[facility] JerseyTprmhu3714 [facility] [id number]; non-emergent till apt LDL Cholesterol Calc 120 [...] sent toT [facility].PATIENT WAS FASTINGPERFORMED BY: [facility]changeRe[facility] South JerseyQwefgl2602 [facility] [id number] 0:51 Range: 30.0-100.0 Comments: Vitamin D deficiency has been defined by the Canadian ofMedicine and an Endocrine Society practice guideline as alevel of serum 25-OH vitamin D less than 20 ng/mL (1,2).The Endocrine Society went on to further define vitamin Dinsufficiency as a level between 21 and 29 ng/mL (2).1. IOM (Canadian of Medicine). 2010. Dietary reference intakes for calcium and D. [place]: The National Academies Press.2. Mateusz MF, Mary NC, Enma KENDALL, et al. Evaluation, treatment, and prevention of vitamin D deficiency: an Endocrine Society clinical practice guideline. JCEM. 2010; 96(7):1911-30. 06-Kjf-120494:28 Sputum Culture (93969) Comments: PATIENT NOT FASTINGPERFORMED BY: [facility]6370 [facility] [id number] Information: [id number] Result 1 STREPN (Abnormal) Comments: Streptococcus pneumoniaeHeavy [...] S Lower Respiratory Final report Culture (Abnormal) 04-Bwz-898909:49 Free T3 Comments: Has Patient had X-rays with Contrast this admission? NIs Patient on Heparin? [facility] Obyogfptpw6[address] [place], [place], [id number] FREE T3 1.9 pg/mL (Abnormal) Range: 2.18-3.98 27-Odq-542889:49 T4 Free Direct Comments: Has Patient had X-rays with Contrast this admission? NIs Patient on Heparin? [facility] Jgazdteicq90[address] [place], [address] T4 FREE DIRECT 0.84 ng/dL (Normal) Range: 0.76-1.46 35-Qni-268674:49 Thyroid Stim Hormone (TSH) Comments: Has Patient had X-rays with Contrast this admission? NIs Patient on Heparin? [facility] V[address]xluiamb[address] [place], [address] TSH 0.04 {uIU/mL} (Abnormal) Range: 0.358-3.74 :43 CBC W/Diff, Automated Comments: Test performed at:[facility] Ozqiailuck7836 [facility] [place] [address] Absolute Lymph 2.39 {X10_3/ul} (Normal) [...] 4.2-5.4 WBC 8.0 K/mm3 (Normal) Range: 4.4-11.0 :43 Comprehensive Metabolic Profil Comments: Test performed at:[facility] Ufgfzkcyce5237 [facility] [place] [address] GAP 7 (Normal) Range: 5-15 [...] 7-18 GLU 92 mg/dL (Normal) Range: 70-110 94-Ilx-50547:34 Comprehensive Metabolic Profil Comments: ORDERED LIPID,CMPDR.SNEHA ORDERED TSH,HARLEEN,DHEATest performed at:[facility] S[address]iibcw[address] [place] [address] GAP 11 (Normal) Range: 5-15 [...] Comments: Please note revised CREATININE reference range lfzjuznuv92/22/2015. BUN 6 mg/dL (Abnormal) Range: 7-18 GLU 97 mg/dL (Normal) Range: 70-110 05-Cvb-21823:34 DHEA Sulfate Comments: Has Patient had Radioactive Injection for X-ray?: NTest performed at:[facility] Fxzarfgshz9403 [place] [address] DHEA SULF 4020 26.8 ug/dL (Abnormal) Range: 41.2-243.7 Comments: Performed at: - [facility] [id number] Director: Sean Daniel PhD, Phone: [phone] 81-Vvv-30007:34 Lipid Profile Comments: ORDERED LIPID,CMPDRSANDHYA ORDERED TSH,HARLEEN,DHEATest performed at:[facility] Twuduxnmym6728 [place] [address] VLDL 14 mg/dL (Normal) Range: [...] :34 Testosterone, Serum Total Comments: Test performed at:[facility] Gfuzaixceh6234 [place] [address] Testosterone 20 ng/dL (Normal) Range: 14-76 :34 Thyroid Stim Hormone (TSH) Comments: ORDERED LIPID,CMPDR.SNEHA ORDERED TSH,HARLEEN,DHEATest performed at:[facility] Gzjarllxgu3452 [place] [address] TSH < 0.01 {uIU/mL} (Abnormal) Range: 0.358-3.74 58-Fky-849645:12 CBC W/Diff, Automated Comments: Test performed at:[facility] [address]fnq[address] [place] [address] Absolute Lymph 1.81 {X10_3/ul} (Normal) Range: [...] 4.2-5.4 WBC 6.0 K/mm3 (Normal) Range: 4.4-11.0 98-Bmp-911103:12 Comprehensive Metabolic Profil Comments: Test performed at:[facility] Xhlvxocehx9623 [facility] [address] GAP 6 (Normal) Range: 5-15 CO2 29.0 [...] had Radioactive Injection for X-ray?: NTest performed at:[facility] Venscgrhno0872 [facility]. [place], [place] [id number] DHEA SULF 4020 22.6 ug/dL (Abnormal) Range: 41.2-243.7 Comments: Performed at: - [facility] [id number] Director: Omer Stout PhD, Phone: [phone] :36 Free T3 Comments: Has Patient had X-rays with Contrast this admission? ??NIs Patient on Heparin? ??NTest performed at:[facility] [address] ??[place], [place] ??[address] FREE T3 4.7 pg/mL (Abnormal) Range: 2.18-3.98 :36 T4 Free Direct Comments: Has Patient had X-rays with Contrast this admission? NIs Patient on Heparin? NTest performed at:[facility] Mwh[address] [place] [id number] T4 FREE DIRECT 1.54 ng/dL (Abnormal) Range: 0.76-1.46 :36 Thyroid Stim Hormone (TSH) Comments: Has Patient had X-rays with Contrast this admission? NIs Patient on Heparin? NTest performed at:[facility] [address]uxs[address]kaom[address] [place] [address] TSH < 0.01 {uIU/mL} (Abnormal) Range: 0.358-3.74 :36 Vitamin D,25 Hydroxy Comments: Test performed at:[facility] [address]dp[address]jswv[address] [place] [address] [id number] Vitamin D 25-OH 34.0 ng/mL (Normal) Comments: Vitamin D 25(OH) Status Range Deficiency <20 ng/mL (50nmol/L) Insuffciency 20 - 30 ng/mL (50 - 75 nmol/L) Sufficiency 30 - 100 ng/mL (75 - 250 nmol/L) Toxicity >100 ng/mL (>250 nmol/L) :02 CBC W/Diff, Automated Comments: Test performed at:[facility] [address]ym[address]fiv[address] [place] [address] ; non- emergent till apt Absolute [...] 4.2-5.4 WBC 6.0 K/mm3 (Normal) Range: 4.4-11.0 83-Iar-65313:02 Comprehensive Metabolic Profil Comments: Test performed at:[facility] [address]tfwkwrrdc[address] [place] [address] GAP 7 (Normal) Range: 5-15 [...] 7-18 GLU 93 mg/dL (Normal) Range: 70-110 50-Zuk-15707:02 Lipid Profile Comments: Test performed at:[facility] [address] [place] [address] VLDL 14 mg/dL (Normal) Range: 5-40 LDL [...] 200-240 mg/dL Borderline >240 mg/dL High Risk 52-Mjm-849222:09 CBC W/Diff, Automated Comments: Test performed at:[facility] [address] [place] [address] [id number] ; handled by kerri Absolute Lymph 2.45 [...] 4.2-5.4 WBC 8.0 K/mm3 (Normal) Range: 4.4-11.0 37-Kxa-391513:09 Comprehensive Metabolic Profil Comments: Test performed at:[facility] [address]zz[address]ub[address] [place], [place] [id number] ; anylenki GAP 6 (Normal) Range: 5-15 CO2 28.0 [...] 7-18 GLU 79 mg/dL (Normal) Range: 70-110 89-Cxg-29962:19 CMP Comments: DR BROWN ORDERED LIPID CMPDR [...] 7-18 GLU 98 mg/dL (Normal) Range: 70-110 65-Ygm-36559:19 LIPID Comments: DR BROWN ORDERED LIPID CMPDR [...] CHOL 168 mg/dL (Normal) Comments: <200 mg/dL Agtppxrjy433-333 mg/dL Borderline>240 mg/dL High Risk 21-Lqp-993811:51 CBCD ALC 2.36 {X10_3/ul} (Normal) Range: 0.83-4.51 [...] 4.2-5.4 WBC 8.0 K/mm3 (Normal) Range: 4.4-11.0 50-Mjt-450629:51 CMP Comments: DR VILLAFANA ORDERED CBCD CMP [...] 7-18 GLU 89 mg/dL (Normal) Range: 70-110 47-Kyo-134227:51 CORTU Comments: Has Patient had Radioactive Injection for X-ray?: N tCORTU 9 ug/L (Normal) qXCVTD15 39 {ug/24_hr} (Normal) Range: 0-50 93-Mom-357668:51 DHEA 19.8 ug/dL (Abnormal) Comments: Has Patient had Radioactive Injection for X-ray?: N Range: 41.2-243.7 Comments: Performed at: BN - [facility] [address] [place], [place] [id number] Director: Eusebio Live MD, Phone: [phone] at: [facility] Lab[id number] Director: Omer Stout PhD, Phone: [phone] 09-Qcl-012958:51 FT3 2.2 pg/mL (Normal) Comments: DR VILLAFANA ORDERED CBCD CMP ONLYHas Patient had X-rays with Contrast this admission? N Range: 2.18-3.98 98-Stw-824807:51 METAU Comments: Has Patient had Radioactive Injection for X-ray?: N tMETA 40 ug/L (Normal) tMETA24 172 {ug/24_hr} (Normal) Range: 45-290 Comments: (Hypertensive) >17 years 11 months: 35 - 460 tNORM24 292 {ug/24_hr} (Normal) Range: 82-500 Comments: (Hypertensive) >17 years 11 months: 110 - 1050 tNORM 68 ug/L (Normal) 45-Svv-235558:51 T4F 0.98 ng/dL (Normal) Comments: DR VILLAFANA ORDERED CBCD CMP ONLYHas Patient had X-rays with Contrast this admission? N Range: 0.76-1.46 :51 TSH 0.66 {uIU/mL} (Normal) Comments: DR VILLAFANA ORDERED CBCD CMP ONLYHas Patient had X-rays with Contrast this admission? N Range: 0.358-3.74 19-Izp-139746:51 VITD 51.8 mg/mL (Normal) Comments: Vitamin D 25(OH) Status RangeDeficiency <20 ng/mL (50nmol/L)Insuffciency 20 - 30 ng/mL (50 - 75 nmol/L)Sufficiency 30 - 100 ng/mL (75 - 250 nmol/L)Toxicity >100 ng/mL (>250 nmol/L) :01 URINE ARELY CULTURE-SPRING COL Comments: PATIENT NOT FASTINGPERFORMED BY: [facility] [id number] Information: SRC:UR [id number] COUNT ([id number]) Result 1 NG36 (Normal) Comments: No growth in 36 - 48 hours. Urine Culture,Comprehensive Final report (Normal) 6-Wwt-144068:44 Urinalysis, Office (11059) UA - LEUKOCYTE ESTERASE Negative (Normal) UA - NITRITE Negative (Normal) URINE UROBILINGN SPRING TIMED Normal mg/dL (Normal) UA - PROTEIN Negative mg/dL (Normal) UA - PH 8.5 (Normal) UA - BLOOD Negative (Normal) UA - SPECIFIC GRAVITY 1.015 (Normal) UA - KETONES Negative mg/dL (Normal) UA - BILIRUBIN Negative (Normal) UA - GLUCOSE Negative (Normal) :00 CMP Comments: LIPID CMPDR.WIETEJONATAN CMP TSH T4F T3F VITD DHEA GAP [...] N Range: 41.2-243.7 Comments: Performed at: - Lab[address] [id number] Director: Sterling Porter MD, Phone: [phone] :[phone] FT3 2.4 pg/mL (Normal) Comments: LIPID RUBI [facility] TSH T4F T3F VITD DHEA Range: 2.18-3.98 :00 LIPID Comments: DR.FAST ANG VENEGAS [facility] TSH T4F T3F VITD DHEA [...] CHOL 235 mg/dL (Abnormal) Comments: <200 mg/dL Jjpfeujgf805-457 mg/dL Borderline>240 mg/dL High Risk :00 T4F 0.98 ng/dL (Normal) Comments: DR.FAST ANG VENEGAS [facility] TSH T4F T3F VITD DHEA Range: 0.76-1.46 :00 TSH 0.16 {uIU/mL} (Abnormal) Comments: DR.FAST ANG VENEGAS [facility] TSH T4F T3F VITD DHEA Range: 0.358-3.74 :00 VITD 56.0 mg/mL (Normal) Comments: Vitamin D 25(OH) Status RangeDeficiency <20 ng/mL (50nmol/L)Insuffciency 20 - 30 ng/mL (50 - 75 nmol/L)Sufficiency 30 - 100 ng/mL (75 - 250 nmol/L)Toxicity >100 ng/mL (>250 nmol/L) :54 OS 273 {mOsm/KG} (Abnormal) Range: 275-295 :54 [facility] 268 {mOsm/KG} (Normal) Comments: OSMOLALITY URINE REFERENCE QGDJWXYYV04-lswu Urine 300 - 900 mOsm/kgRandom Urine 50 - 1400 mOsm/kgAfter 12 Hr fluid restriction >850 mOsm/kg 34-Qus-442647:31 24HULYT Comments: ST 07/25/13 1130AM CREATININE AND SODIUM ONLYST 1130AM uCL24 63 {mmol/24h} (Abnormal) Range: 110-250 CLU 14 mmol/L (Normal) KU 15.5 mmol/L (Normal) uK24 70.1 {mmol/24h} (Normal) Range: 25-125 uNA24 72 {mmol/24h} (Normal) Range: 40-220 EMELI 16 mmol/L (Normal) uLYTV 4525 mL (Normal) 21-Bua-473162:31 UCRE Comments: ST 07/25/13 1130AM CREATININE AND SODIUM ONLYST 1130AM UCCT 24.0 {HOURS} (Normal) UCRE24 1.2 {g/24_hr} (Normal) Range: 0.6-1.5 UCTV 4.53 L (Normal) URCREAT 26.8 mg/dL (Normal) 63-Ipc-441706:30 CAU Comments: ST 07/25/13 1130AMST 07/25/13/1130AMComments: nz4696 24 hr sodium urine tCAU24 90.0 {mg/24_hr} (Normal) Range: 100.0-300.0 Comments: Reference Tafqp337.0 - 300.0Total volumne: 4525 ml/24hrPerformed at: [facility] [id number] Director: Sterling Porter MD, Phone: [phone] CAUR 2.1 mg/dL (Normal) 67-Gdi-919094:18 CBCD ALC 2.09 {X10_3/ul} (Normal) Range: 0.83-4.51 [...] 4.2-5.4 WBC 7.0 K/mm3 (Normal) Range: 4.4-11.0 71-Vao-257959:18 CMP Comments: Comments: yq1859 24 hr sodium urine GAP 8 (Normal) [...] X-ray?: N Range: 41.2-243.7 Comments: Performed at: [address] [id number] Director: Sterling Porter MD, Phone: [phone] :31 T4F 1.03 ng/dL (Normal) Range: 0.76-1.46 [...] CHOL 176 mg/dL (Normal) Comments: <200 mg/dL Hsmqotvqf730-326 mg/dL Borderline>240 mg/dL High Risk :17 T4F 1.08 ng/dL (Normal) Comments: DR BROWN ORDERED CMP LIPIDDR WIETECHA ORDERED TSH T3F T4F BMP Range: 0.76-1.46 :17 TSH 0.49 {uIU/mL} (Normal) Comments: DR BROWN ORDERED CMP LIPIDDR WIETECHA ORDERED TSH T3F T4F BMP Range: 0.358-3.74 7-Ryd-933454:52 BREAST UNILATERAL Radiology See Note Comments: STUDY: [...] Galeana M.D.November 02, 2012 at 4:00:42 PM [id number] Signed GP/GP If you are the referring physician and would like to consult with theradiologist who provided this interpretation, please contact Luis Angel Quintana at [phone]. If this radiologist is un available, youwill be directed to another radiologist to assist. If you are a patient with a question regarding this report, pleasecontactyour referring physician directly. Professional Interpretation P rovided By: [employer], Phone , These documents contain legally protected [...] Galeana MD on 11/02/12 1610 Sign by: Wendy IRVINBarrera 02-Nov-20120:00 UNILAT LT DIAG DIGITAL & CAD [...] Galeana M.D.November 02, 2012 at 3:22:08 PM [id number] Signed GP/GP If you are the referring physician and would like to consult with theradiologist who provided this interpretation, please contact Luis Angel Quintana at [phone]. If this radiologist is unavailable, youwil l [...] 11/02/12 1537 Sign by: Barrera Galeana MD 31-Dry-33200:00 ABDOMEN/PELVIS WITHOUT CONT Radiology Report See Note [...] Galeana M.D.September 14, 2012 at 8:22:23 AM [id number] Signed GP/GP If you are the referring physician and would like to consult with theradiologist who provided this interpretation, please contact Luis Angel Quintana at [phone]. If this radiologist is unavailable, youwill be directed to another radiologist to assist. If you are a patient with a question regarding this report, pleasecontactyour referring niecy trey directly. Professional Interpretation Provided By: [employer], Phone , These documents contain legally protected [...] on 09/14/12821 by Aureliano Galeana MDranscribed on 09/14/1224 by ITS IMPORTSign by Barrera Galeana MD on 09/14/12 0825 Sign by: Barrera Galeana MD 90-Qtm-136056:15 URINE ARELY CULTURE-IDENTIFICATN Comments: PATIENT NOT FASTINGPERFORMED BY: [facility] Jxnksa3636 [address] [id number] Information: ADD [id number] (38611) Result 1 NG36 (Normal) Comments: No growth in 36 - 48 hours. Urine Culture,Comprehensive Final report (Normal) 07-Ipr-247352:03 Urinalysis, Office (54370) UA - BILIRUBIN Negative (Normal) UA - BLOOD Non Hemolyzed Trace (Normal) UA - GLUCOSE Negative (Normal) UA - KETONES Negative mg/dL (Normal) UA - LEUKOCYTE ESTERASE Negative (Normal) UA - NITRITE Negative (Normal) UA - PH 7.0 (Normal) UA - PROTEIN Negative mg/dL (Normal) UA - SPECIFIC GRAVITY 1.010 (Normal) URINE UROBILINGN SPRING TIMED Normal mg/dL (Normal) 89-Tlk-206975:14 CBCMD ANC 3.2 3/uL (Normal) Range: 2.0-7.7 [...] CHOL 206 mg/dL (Abnormal) Comments: <200 mg/dL Vzbkgbhlg942-687 mg/dL Borderline>240 mg/dL High Risk 32-Iof-593908:14 T4F 1.17 ng/dL (Normal) Range: 0.76-1.46 96-Cfw-387381:14 TSH 0.02 {uIU/mL} (Abnormal) Range: 0.358-3.74 87-Uzs-371836:14 VITD 39.9 ng/mL (Normal) Comments: Vitamin D 25(OH) Status RangeDeficiency <20 ng/mL (50nmol/L)Insufficiency 20 - 30 ng/mL (50 - 75 nmol/L)Sufficiency 30 - 100 ng/mL (75 - 250 nm ol/L)Toxicity >100 ng/mL (250 nmol/L)Effective 201222-Jun-201221-Rnq-792216:23 BILAT SCRN DIGITAL & CAD Radiology Report [...] Galeana M.D.June 22, 2012 at 2:15:23 PM [id number] Signed GP/GP If you a re the referring physician and would like to consult with theradiologist who provided this interpretation, please contact Luis Angel Quintana at [phone]. If this radiologist is unavailable, you will [...] GLU 4 HR GLU GTT-4 HOUR from 0426:Z82580K. 11:43 (Abnormal) Range: 70-110 22-Jun-2012 glu gtt3 36 mg/dL Comments: 4HR GTT GLU 3 HR GLU GTT-3 HOUR from 0426:R22020Q. 10:50 (Abnormal) Range: 70-110 Comments: CRITICAL VALUE REPEATED AND VERIFIED. CALLED TO ANUEL BENTLEY06/22/12 MARGY SYKES.RESULTS READ BACK BY SAME . 22-Jun-2012 glu gtt2 84 mg/dL (Normal) Comments: 4HR GTT GLU 2 HR GLU GTT-2 HOUR from 0426:Q68157L. 9:50 Range: 70-120 22-Jun-2012 glu gtt1 118 mg/dL Comments: 4HR GTT GLU 1 HR GLU GTT-1 HOUR from 0426:W33303Y. 8:50 (Abnormal) Range: 120-170 22-Jun-2012 glu gtt.5 140 mg/dL Comments: 4HR GTT GLU 1/2 HR GLU GTT-30 min. from 0426:H89485Q. 8:20 (Normal) Range: 110-170 :40 BGM Comments: 4HR GTT FASTING GLU GTT-FASTING from 0426:B99370H. glu gttf 94 mg/dL (Normal) Range: 70-110 Comments: GLUCOSE TOLERANCE TEST Reference IntervalNon- AdultsFasting 70 - 43823 minutes 110 - 1701 hour 120 - 1702 hour 70 - 1203 hour 70 - 1104 hour 70 - 1105 hour 70 - 110 BGM 97 mg/dL (Normal) Range: 70-110 Comments: MANAGEMENT OF PATIENT CARE PER NURSING PROTOCOLNo Action Required0 :40 CBCD Comments: DR DAILY ORDERED [id number] TRES ORDERED CMP CBCD ANC 2.2 3/uL [...] 4.4-11.0 :40 CMP Comments: DR DAILY ORDERED [id number] TRES ORDERED CMP CBCD GAP 8 (Normal) [...] 70-110 :40 GTT4 Comments: DR DAILY ORDERED [id number] VILLAFANA ORDERED CMP CBCD :31 CBC WITH MANUAL DIFF Comments: PATIENT NOT FASTINGPERFORMED BY: [facility]CoScott [facility] 1150770 [facility] [id number] Information: [id number] (14668) Immature Grans (Abs) 0.0 {x10E3/uL} (Normal) Range: [...] 9.0 {x10E3/uL} (Normal) Range: 4.0-10.5 :31 TSH (80241) Comments: PATIENT NOT FASTINGPERFORMED BY: [facility]6370 [facility] [id number] TSH 6.430 {uIU/mL} (Abnormal) Range: 0.450-4.500 :31 EBV Panel (06832) Comments: PATIENT NOT FASTINGPERFORMED BY: [facility]6370 [facility] [id number] Interpretation: SPRCS (Normal) Comments: EBV Interpretation Chart [...] 5:28 (Abnormal) Comments: Results confirmed ondilution.Performed at: [employer] [facility] [id number] Director: Omer Stout PhD, Phone: [phone] TSH 0.90 {uIU/mL} Range: 0.358-3.74 5:28 (Normal) 4-Rfl-502176:59 Urinalysis, Office (47153) UA - BILIRUBIN Negative (Normal) UA - BLOOD Hemolyzed Trace (Normal) UA - GLUCOSE Negative (Normal) UA - KETONES Negative mg/dL (Normal) UA - LEUKOCYTE ESTERASE Negative (Normal) UA - NITRITE Negative (Normal) UA - PH 7.0 (Normal) UA - PROTEIN Negative mg/dL (Normal) UA - SPECIFIC GRAVITY 1.010 (Normal) URINE UROBILINGN SPRING TIMED Normal mg/dL (Normal) 2-Tco-354934:11 ARELY CULTURE-OTHER (23721) Comments: PATIENT NOT FASTINGPERFORMED BY: [facility] [address] [id number] Information: SRC:THRT [id number] Result 1 RRF (Normal) Comments: Routine respiratory kaylene Upper Respiratory Culture Final report (Normal) 9-Img-844138:58 Rapid Strep Test, Office (27685) Rapid Strep Test, Office Negative (Normal) :47 Urinalysis, Office (47259) UA - BILIRUBIN Negative (Normal) UA - BLOOD Hemolyzed Trace (Normal) UA - GLUCOSE Negative (Normal) UA - KETONES Negative mg/dL (Normal) UA - LEUKOCYTE ESTERASE Negative (Normal) UA - NITRITE Negative (Normal) UA - PH 6.0 (Normal) UA - PROTEIN Negative mg/dL (Normal) UA - SPECIFIC GRAVITY 1.010 (Normal) URINE UROBILINGN SPRING TIMED Normal mg/dL (Normal) 5-Xhv-945745:11 URINE ARELY CULTURE (SPRING Comments: PATIENT NOT FASTINGPERFORMED BY: [facility] Tfouiq9923 [facility] [id number] Information: SRC:UR [id number] COL COUNT) ([id number]) Result 1 MUG (Normal) Comments: Mixed urogenital elmie660 Colonies/mL Urine Final report (Normal) Culture,Comprehensive 20-Wby-267904:1 ISAIAS 8.59 ug/dL (Normal) Comments: COMMENTS: FAX RESULTS TO DR. KEVIN HARTMAN DRAW 0 Range: 3.09-22.40 Comments: Adult (AM) 4.30 - 22.40 ug/dL Adult (PM) 3.09 - 16.66 ug/dL 18-Ihn-37677:40 ISAIAS 10.40 ug/dL (Normal) Comments: COMMENTS: FAX [...] (Normal) Range: 70-110 Comments: RESULTS FAXED TO [phone] 01/13/12 0934 MARINE TOURE.RESULTS FAXED TO [phone] 01/13/12 0959 MARINE TOURE. :25 ISAIAS 13.11 [...] Range: 0-34 Comments: Results confirmed ondilution.Performed at: - [facility] [id number] Director: Omer Stout PhD, Phone: [phone] :[phone] TSH 5.66 {uIU/mL} (Abnormal) Comments: COMMENTS: FAX RESULTS TO DR. KEVIN HARTMAN DRAW Range: 0.358-3.74 :15 CBCMD Comments: DR BROWN ORDERED LIPID,CMP,TSH,CBCMDDR TRES ORDRED CMP,CBCD PLTM LARGE (Normal) RBCM NORM [...] 02-Jan-20129:15 CMP Comments: DR BROWN ORDERED LIPID,CMP,TSH,CBCMDDR TRES ORDRED CMP,CBCD GAP 7 (Normal) Range: 5-15 [...] ORDERED LIPID,CMP,TSH,CBCMDDR VELLANKI ORDRED CMP,CBCD Range: 0.358-3.74 1-Hzd-437828:46 MYOCARD PERF STRESS/REST MULT Radiology Report See [...] Dictated on 11/30/11 1354 by Emiliano adame MD,AlexandrosTranscribed on 11/30/11 1446 by ZULEMA VALLEign by Mazin IRVIN,Uzair on 12/05/11 0829 Sign by: Mazin IRVIN,Uzair 67-Baq-514792:42 BRAIN W/WO CONTRAST Radiology Report See Note [...] Soto M.D.November 16, 2011 at 2:50:07 PM [id number] Signed LL/LL If you are the referring physician and would like to consult with theradiologist who provided this interpretation, please contact Shahla Weiss M.D. at . If this radiologist is unavailable, you willbe directed to another radiologist to assist. If you are a patient with a question regarding this report, pleasecontactyour referring physician fabiana fuentes. Professional Interpretation Provided By: [employer], Phone , These documents contain legally protected [...] 11/16/11 1457 Sign by: SHAHLA SOTO MD 21-Vdx-457941:25 CHEST WITH CONTRAST Radiology Report See Note [...] Galeana M.D.November 14, 2011 at 3:11:11 PM [id number] Signed GP/GP If you are the referring physician and would like to consult with theradiologist who provided this interpretation, please contact Luis Angel Quintana at . If this radiologist is unavailable, youwill be directed to another radiologist to assist. If you are a patient with a question regarding this report, pleasecontactyour referring physician directly. Professional Interpretation Provided By: [employer], Phone , These documents contain legally protected [...] destructionofthese documents. Dictated on 11/14/11 1430 by Marcel Galeana MDscribed on 11/15/11 1542 by ITS IMPORTSign by Barrera Galeana MD on 11/15/11 1543 Sign by: Wendy IRVIN,Barrera 89-Tsc-604575:39 L/S SPINE,MIN 4 VIEWS Radiology Report See [...] Galeana M.D.November 14, 2011 at 3:46:06 PM [id number] Signed GP/GP If you are the referring physician and would like to co nsult with theradiologist who provided this interpretation, please contact Luis Angel Quintana at [phone]. If this radiologist is unavailable, youwill be directed to another radiologist to irene ruiz. If you are a patient with a question regarding this report, pleasecontactyour referring physician directly. Professional Interpretation Provided By: [employer], Phone ,Fax These documents contain legally protected [...] 11/15/11 1605 Sign by: Barrera Galeana MD 13-Xbw-915400:38 CERV SPINE,MIN 4 VIEWS Radiology Report See [...] fusion at the C4, C5, and C5, X4mcnhztbhdo prosthetic disk material. 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 Normal visualized intervertebral neuroforamina. Normal visuali zed soft tissue structures. IMPRESSION:Anterior fusion at the C4-C5 and C6- C7 levels. Signed:Barrera Galeana M.D.November 14, 2011 at 3:47:12 PM [id number] Signed GP/GP If you ar e the referring physician and would like to consult with theradiologist who provided this interpretation, please contact Luis Angel Quintana at [phone]. If this radiologist is unavailable, youw ill [...] return or destructionofthese documents. Dictated on 11/14/11 100 by Kim Galeana MDranscribed on 11/14/11 1553 by ITS IMPORTSign by Barrera Galeana MD on 11/14/111553 Sign by: Barrera Galeana MD 95-Fqz-382601:38 HIP, MIN 2 VIEWS Radiology Report See [...] Galeana M.D.November 14, 2011 at 3:48:20 PM [id number] Signed GP/GP If you are the referring physician and would like to consult with theradiologist who provided this interpre tation, please contact Luis Angel Quintana at [phone]. If this radiologist is unavailable, youwill be directed to another radiologist to assist. If you are a patient with a question regarding t his report, pleasecontactyour referring physician directly. Professional Interpretation Provided By: [employer], Phone , These documents contain legally protected [...] or destructionofthese documents. Dicta kat on 11/14/11 100 by Wendy IRVIN,AcrieleTranscribed on 11/14/111554 by ITS IMPORTSign by Wendy IRVIN,Barrera on 11/14/111555 Sign by: Barrera Galeana MD :52 CBCMD RBCM NORM C+C {NORMAL} (Normal) [...] (DVT) or Pulmonary Embolism (PE)RESULTS CALLED TO YOVANYN OLSON 11/14/11 ROSIE GIBSON.REPORT READ BACK BY [...] Galeana M.D.November 14, 2011 at 3:48:08 PM [id number] Signed GP/GP If you are the referring physician and would like to consult with ld crowley who provided this interpretation, please contact Luis Angel Quintana at [phone]. If this radiologist is unavailable, youwill be directed to another radiologist to assist. If you are a patient with a question regarding this report, pleasecontactyour referring physician directly. Professional Interpretation Provided By: [employer], Phone , These document s contain legally [...] 11/15/11 1608 Sign by: Barrera Galeana MD 8-Ydy-559905:42 JACQUI Comments: DR BROWN ORDERED LIPID TSH CMPDR VELLANKI ORDERED CMP CBCD DNA JACQUI CHERIE SCL-70 SSA/SSBENA ANTICENTROMERE taANA 45 AU/mL (Normal) 2-Xoa-011300:42 ANEX Comments: DR BROWN ORDERED LIPID TSH CMPDR VELLANKI ORDERED CMP CBCD DNA JACQUI CHERIE SCL-70 SSA/SSBENA ANTICENTROMERE taANA COMMENT (Normal) Comments: TESTING INTERPRETATIONSPOSITIVE: > 120EQUIVOCAL: 100 - 120NEGATIVE: < 100 taRNP 29 AU/mL (Normal) taSM 32 AU/mL (Normal) 7-Oei-975371:42 ANTIJO1 Comments: DR BROWN ORDERED LIPID TSH CMPDR VELLANKI ORDERED CMP CBCD DNA JACQUI CHERIE SCL-70 SSA/SSBENA ANTICENTROMERE taJO1 17 AU/mL (Normal) 7-Iga-868600:42 CBCD ANC 3.9 3/uL (Normal) Range: 2.0-7.7 [...] 4.2-5.4 WBC 6.2 K/mm3 (Normal) Range: 4.4-11.0 3-Zpt-736564:42 CENTB Comments: DR BROWN ORDERED LIPID TSH CMPDR VELLANCHING ORDERED CMP CBCD DNA JACQUI CHERIE SCL-70 SSA/SSBENA ANTICENTROMERE taCENTB 6 AU/mL (Normal) 9-Ldh-011617:42 CMP Comments: DR BROWN ORDERED LIPID TSH [...] 7-18 GLU 94 mg/dL (Normal) Range: 70-110 5-Crs-948380:42 DNAAB Comments: DR BROWN ORDERED LIPID TSH CMPDR VELLANKI ORDERED CMP CBCD DNA JACQUI CHERIE SCL-70 SSA/SSBENA ANTICENTROMERE tadsDNA 5 {IU/mL} (Normal) 2-Mti-713069:42 LIPID Comments: DR BROWN ORDERED LIPID TSH [...] 200-240 mg/dL Borderline >240 mg/dL High Risk 6-Ykt-919807:42 SCL70 Comments: DR BROWN ORDERED LIPID TSH CMPDR VELLANKI ORDERED CMP CBCD DNA JACQUI CHERIE SCL-70 SSA/SSBENA ANTICENTROMERE taSCL70 45 AU/mL (Normal) 5-Sgs-867984:42 SSA Comments: DR BROWN ORDERED LIPID TSH CMPDR VELLANKI ORDERED CMP CBCD DNA JACQUI CHERIE SCL-70 SSA/SSBENA ANTICENTROMERE taSSA 31 AU/mL (Normal) 6-Rqz-114638:42 SSB Comments: DR BROWN ORDERED LIPID TSH CMPDR VELLANKI ORDERED CMP CBCD DNA JACQUI CHERIE SCL-70 SSA/SSBENA ANTICENTROMERE taSSB 34 AU/mL (Normal) 2-Lfu-747899:42 TSH 11.70 {uIU/mL} (Abnormal) Comments: DR BROWN ORDERED LIPID TSH CMPDR VELLANKI ORDERED CMP CBCD DNA JACQUI CHERIE SCL-70 SSA/SSBENA ANTICENTROMERE Range: 0.358-3.74 :36 ESOPHAGUS ONLY Radiology Report See Note (Normal) [...] Galeana M.D.September 13, 2011 at 9:19:02 AM [id number] ly Signed GP/GP If you are the referring physician and would like to consult with theradiologist who provided this interpretation, please contact Luis Angel Quintana at [phone]. If this radiolo gist is unavailable, youwill be directed to another radiologist to assist. If you are a patient with a question regarding this report, pleasecontactyour referring physician directly. Professional Interp retation Provided By: [employer], Phone , Dictated on 09/13/11 0834 by Kim Galeana MDranscribed on 09/13/11 0945 by ITS IMPORTSign by Barrear Galeana MD on 09/13/11 0946 Sign by: Barrera Galeana MD :47 CBCMD RBCM NORM C+C {NORMAL} (Normal) [...] :47 TSH 26.20 {uIU/mL} (Abnormal) Range: 0.358-3.74 5-Cch-402605:01 CHEST, PA AND LATERAL Radiology Report See [...] Signed GP/GP Professional Interpretation Provide d By: [facility], , To consult with a radiologist regarding this report, please call our [id number] line @ Dictated on 03/10 1331 by Wendy IRVIN,Kimranscribed on 06/28/111851 by ITS IMPORTSign by Barrera Galeana MD on 06/28/111852 Sign by: Barrera Galeana MD 02-Ypl-56956:32 THYROID Radiology Report See Note (Normal) Comments: [...] EDTElectronically Signed DL/DL Professional Interpretation Provided By: [facility], , To consult with a radiologist regarding t his report, please call our [id number] line @ Dictated on 06/24/11 1013 by John Spencer MDTranscribed on 06/24/11 165 by ITS IMPORTSign by John Spencer MD on 06/24/11 165 Sign by: John Spencer MD 76-Lmv-80783:30 BILAT SCRN DIGITAL & CAD Radiology Report [...] EDTElectronically Signed GP/GP Professional Interpretation Provided By: [facility], , To consult with a radiologist regarding this report, please call our [id number] line @ Dictated on 06/24/11 0945 by Ac Galeana MDrieleTranscribed on 06/24/11 1025 by ITS IMPORTSign by [...] GLU 94 mg/dL (Normal) Range: 70-110 :46 EBGM tEBINT Comment (Normal) Comments: EBV Interpretation Chart . Interpretation VCA-IgM EA-IgG VCA-IgG NA-ABS . Susceptible - - - - Acute Infection + +or- +or- - Convalescent Phase +or- +or- + + Chronic or Reactivated - + + +or- Old Infection - - +or- + + Antibody Pr esent - Antibody AbsentPerformed at: [facility] [id number] Director: Iraida Willingham MD, Phone: [phone] EBNA > 8.0 {AI} (Abnormal) Range: 0.0-0.8 Comments: Negative <0.9 Equivocal 0.9 - 1.0 Positive >1.0 EBVG > 8.0 {AI} (Abnormal) Range: 0.0-0.8 Comments: Negative <0.9 Equivocal 0.9 - 1.0 Positive >1.0 EBEAG < 0.2 (Normal) Comments: Negative <0.9 Equivocal 0.9 - 1.0 Positive >1.0 EBVM < 0.2 {AI} (Normal) Range: 0.0-0.8 Comments: Negative <0.9 Equivocal 0.9 - 1.0 Positive >1.0 :28 CHEST, PA AND LATERAL Radiology Report See [...] radiologist regarding this report, please call our [id number] line @ Dictated on 06/07/11 1321 by Wendy IRVIN,Kimranken jordan pediatric specialty hospitalri bed on 06/07/111407 by ITS IMPORTSign by Wendy IRVIN,Barrera on 06/07/111408 Sign by: Wendy IRVIN,Barrera CUT See Note (Normal) Comments: #1- PRESUMPTIVE FRANK ALBICANSNo beta-hemolytic streptococcus isolated. AM[place] GROWTH RARE ORGANISM 1: YEAST 4:09 H.PYLORI [id number] < 0.9 U/mL (Normal) Range: 0.0-0.8 1:47 Comments: Negative <0.9 Indeterminate 0.9 - 1.0 Positive >1.0Performed at: [facility] [id number] Director: Iraida Willingham MD, Phone: [phone] 1-Axd-248403:34 CBCD,SMEAR DIFF MACROCYTE 1+ (Normal) RED CELL [...] 7-18 GLU 83 mg/dL (Normal) Range: 70-110 4-Qpz-486165:20 Urinalysis, Office (22116) UA - BILIRUBIN Negative (Normal) UA - [...] URINE CULTURE Culture exhibits no growth. (Normal) 2-Gim-543776:07 CULTURE, THROAT See Note (Normal) Comments: AMOUNT [...] $ <=10 S VANCOMYCIN $ <=1 S 0-Hfe-828894:30 Rapid Strep Test, Office (83554) Rapid Strep Test, Office Negative (Normal) 43-Agj-371019:52 SPINE,CERVICAL WITHOUT CONTRAS Radiology Report See Note [...] C6-C7 levels. Dictated on 20/01 1357 by Ac Galeana MDriTonioranscribed on 07/21/10 0101 by ITS IMPORTSign by Barrera Galeana MD on 07/21/10 0102 Sign by: Barrera Galeana MD 97-Mex-039179:22 CERV SPINE,MIN 4 VIEWS Radiology Report See Note (Normal) Comments: CLINICAL:Female, 49 years old. Neck pain. X-RAY EXAMINATION - CERVICAL SPINE TECHNIQUE:Five views of the cervical spine were obtained. COMPARISON:None FINDINGS:Normal craniovertebral junction. Normal anterior atlantoaxialarticulation. Normal odontoid process. There is straightening of the normal cervical lordosis. Normal vertebralbodies and posterior osseous elements. The transverse processes of P3aaegrburgoyf. There is multi-level degenerative disc space narrowing with endplatespondylosis. There is multi-level osseous foraminal stenosis at H0-S0ivmU3-A2, bilateral. Normal visualized soft tiss ue structures. IMPRESSION:Multilevel degenerative disc disease with osseous foraminal stenosis.Prominent transverse processes of C7 may cause thoracic outlet syndrome.Straightening of the normal cervica l lordosis. Dictated on 07/13/101535 by MANJINDER HOLLIDAY MDOTranscribed on 07/14/10 1209 by ITS IMPORTSign by SWATI HOLLIDAY MD on 07/14/10 1210 Sign by: SWATI HOLLIDAY MD 81-Mmi-86282:00 CHEST, PA AND LATERAL Radiology Report See [...] spine. IMPRESSION:Old granulomatous disease. Dictated on 07/13/10 153 by MANJINDER LEE MDOTranscribed on 07/14/10 1304 by ITS IMPORTSign by SWATI HOLLIDAY MD on 07/14/10 1304 Sign by: MG IRVINSWATI :35 BILAT SCRN DIGITAL & CAD Radiology [...] 06/22/10 09 by MELISSA LEES MDTranscribed on 06/22/102350 by ITS IMPORTSign by MELISSA LEES MD on 06/22/102351 Sign by: MELISSA LEES MD :34 DEXA BONE DENSITY STUDY (HP) Radiology Report See Note (Normal) Comments: CLINICAL:Female, 49 years old. The patient is a postmenopausal. EXAMINATION:DUAL ENERGY X-RAY ABSORPTIOMETRY / DEXA. TECHNIQUE:Bone Mineral Density (BMD) measurements of lumbar spine and bi lateralhipsw ere obtained using a [employer] scanner.. COMPARISON:Comparison is made with prior study [...] ITS IMPORTSign by Barrera Galeana MD on 06/22/10 144 Sign by: Barrera Galeana MD 9-Vjd-403450:14 Rapid Strep Test, Office (33828) Rapid Strep Test, Office Negative (Normal) :00 CULTURE, THROAT See Note (Normal) Comments: Normal [...] CMP VITD CBCMDDRIfeanyi VILLAFANA CMP CBCD VITD CL 101 mmol/L (Normal) [...] CBCD VITD Range: 0.358-3.74 :29 VIT D,25 63376 53.4 ng/mL (Normal) Comments: DR. BROWN ORDERED TSH LIPID CMP VITD CBCMDDR. NENITAKI CMP CBCD VITD Range: 32.0-100.0 Comments: Recent studies consider the lower limit of 32.0 ng/mL to ama threshold for optimal health.Fco GARCIA. J Nutr. 2004;135(2):317-22.Performed at: - [facility] [id number] Director: Iraida Willingham MD, Phone: [phone] 62-Xrv-259864:30 LQD PAP 617115 PAPSMR Comment (Normal) Comments: The Pap smear [...] no HPV testing was performed. .Performed at: [address] [id number] Director: Nita Hernandez MD, Phone: [phone] COMM . (Normal) DIAGN Comment (Normal) Comments: NEGATIVE FOR INTRAEPITHELIAL LESION AND MALIGNANCY.CELLULAR CHANGES ASSOCIATED WITH ATROPHY ARE PRESENT.Satisfactory for evaluation.Kiran Gayle, Contemporary Or Modern Dancer (ASC) 31-Pfe-96062:41 BONE SCAN WHOLE BODY Radiology Report See [...] Report See Note (Normal) Comments: Exam Number: [id number] LINICAL:This is a 49-year-old female patient with [...] scan is suggested. Reported By: BARRERA GALEANA 14-Ine-46806:01 PELVIS,1 OR 2 VIEWS (MT) Radiology Report See Note (Normal) Comments: Exam Number: [id number] LINICAL:This is a 49 year old female [...] as noted above. Reported By: BARRERA GALEANA 9-Xdw-949487:41 THYROID (HP) Radiology Report See Note (Normal) Comments: Exam Number: [id number] LINICAL:This is a 49-year-old female patient with [...] described. Reported By: BARRERA GALEANA : ANTI-CCP 270414 2 {units} (Normal) Range: 0-19 41 Comments: Negative <20 Weak positive 20 - 39 Moderate positive 40 - 59 Strong positive >59Performed at: [facility] [id number] Director: Eusebio Live MD, Phone: [phone] 27-Alv-634287:53 JACQUI DIR SEMI-QL JACQUI DIRECT 77 AU/mL [...] CHOL 166 mg/dL (Normal) Comments: <200 mg/dL Jeqttveil485-405 mg/dL Borderline>240 mg/dL High Risk TRIG 85 mg/dL (Normal) Comments: Serum Triglycerides Reference IntervalNormal <150 mg/dLBorderline high 150 - 199 mg/dLHigh 200 - 499 mg/ dLVery High > or = 500 mg/dL 88-Ovr-232899:13 LIVER ALB 4.3 g/dL (Normal) Range: 3.4-5.0 ALK P 52 U/L (Normal) Range: 50-136 ALT 20 U/L (Normal) Range: 12-78 AST 11 U/L (Abnormal) Range: 15-37 D BILI 0.17 mg/dL (Normal) Range: 0.00-0.30 T BILI 0.80 mg/dL (Normal) Range: 0.00-1.00 T PROT 7.6 g/dL (Normal) Range: 6.4-8.2 :13 TSH 0.49 {uIU/mL} (Normal) Range: 0.358-3.74 :13 VIT D,25 99624 63.3 ng/mL (Normal) Range: 32.0-100.0 Comments: Recent studies consider the lower limit of 32.0 ng/mL to ama threshold for optimal health.Fco GARCIA. J Nutr. 2004;135(2):317-22.Performed at: [place] [id number] Director: Iraida Willingham MD, Phone: [phone] 2-Yxs-496392:57 CHEST, PA AND LATERAL (MT) Radiology Report See Note (Normal) Comments: Exam Number: [id number] X-RAY EXAMINATION: CHEST CLINICAL:This is a 49-year-old [...] CHOL 320 mg/dL (Abnormal) Comments: <200 mg/dL Agumwkoal637-552 mg/dL Borderline>240 mg/dL High Risk TRIG 107 mg/dL (Normal) Comments: Serum Triglycerides Reference IntervalNormal <150 mg/dLBorderline high 150 - 199 mg/dLHigh 200 - 499 mg/ dLVery High > or = 500 mg/dL 29-Rbi-44988:14 T4 FREE DIRECT 0.70 ng/dL (Abnormal) Range: 0.76-1.46 :14 TSH 15.20 {uIU/mL} Range: 0.358-3.74 (Abnormal) 25-Cpn-481795:01 BILAT SCRN DIGITAL & CAD Radiology Report See Note (Normal) Comments: Exam Number: [id number] MAMMOGRAM, BILATERAL SCREENING DIGITAL AND CAD HISTORYRoutine [...] mammograms werealso examined with computer-aided detection software ([employer] Reported By: MELISSA LEES M.D. Plan [...] Pneumonia, bacterial Pharyngitis, acute : Eprescribed prescriptions (G53) Indication: Pharyngitis, acute Other hyperlipidemia : Eprescribed prescriptions (G8553) Indication: Other hyperlipidemia Sinusitis : Sinusitis *: sinus infection Indication: Sinusitis Acquired hypothyroidism : Eprescribed prescriptions (G8553) Indication: Acquired hypothyroidism Upper Respiratory Infection : Eprescribed prescriptions (G53) Indication: Upper Respiratory Infection Anxiety : Eprescribed [...] Other hyperlipidemia Planned Observations METABOLIC PANEL, COMPREHENSIVE (90779)Indication: Right flank pain On: :21 Request Comments: stat CBC W/AUTO DIFF WBC (83147)Indication: Right flank pain On: 72-Tdh-953137:21 Request Comments: stat CBC with auto diff (87693)Indication: Impaired fasting glucose On: 2-Hzl-492934:53 Request METABOLIC PANEL, COMPREHENSIVE (24673)Indication: Impaired fasting glucose On: :53 Request HGB A1C (49530)Indication: Impaired fasting glucose On: :53 Request LIPID PANEL (07546)Indication: Other hyperlipidemia On: :53 Request Vitamin D Hydroxy (32161)Indication: Vitamin D deficiency On: :10 Request LIPID PANEL (28699)Indication: Other hyperlipidemia On: :10 Request CBC with auto diff (95947)Indication: Impaired fasting glucose On: :08 Request METABOLIC PANEL, COMPREHENSIVE (94300)Indication: Impaired fasting glucose On: 22-Fqg-259049:08 Request C-REACTIVE PROTEIN (64219)Indication: Left-sided face pain On: :08 Request SED RATE ERYTHROCYTE (63270)Indication: Left-sided face pain On: 31-Bqt-113354:08 Request HGB A1C (76829)Indication: Impaired fasting glucose On: 19-Uya-256785:08 Request CBC, PLATELETS & MANUAL DIFF (27500)Indication: Fatigue On: 18-Ibm-344513:44 Request EBV Panel (48201)Indication: Fatigue On: 84-Pqx-841782:44 Request LIPID PANEL (37556)Indication: Other hyperlipidemia On: 9-Xrw-153773:00 Request CBC with auto diff (28798)Indication: Impaired fasting glucose On: 0-Ros-639999:00 Request METABOLIC PANEL, COMPREHENSIVE (62818)Indication: Impaired fasting glucose On: 9-Mct-729087:00 Request HGB A1C (51404)Indication: Impaired fasting glucose On: 6-Ito-293225:00 Request LIPID PANEL (64936)Indication: Other hyperlipidemia On: :37 Request TSH (THYROID STIMULATING HORMONE) (69029)Indication: Acquired hypothyroidism On: :37 Request CBC with auto diff (65588)Indication: Impaired fasting glucose On: :35 Request METABOLIC PANEL, COMPREHENSIVE (44083)Indication: Impaired fasting glucose On: :35 Request MICROALBUMIN: CREATININE RATIO (97410) AND (00354)Indication: Impaired fasting glucose On: :35 Request HGB A1C (93427)Indication: Impaired fasting glucose On: :35 Request CBC W/AUTO DIFF WBC (92060)Indication: Primary adrenocortical insufficiency On: 34-Fdc-200947:06 Request METABOLIC PANEL, COMPREHENSIVE (06428)Indication: Primary adrenocortical insufficiency On: 64-Epv-880613:06 Request LIPID PANEL (18793)Indication: Other hyperlipidemia On: :26 Request CBC with auto diff (56501)Indication: Impaired fasting glucose On: :26 Request METABOLIC PANEL, COMPREHENSIVE (42775)Indication: Impaired fasting glucose On: 0-Mzr-499594:26 Request HGB A1C (56639)Indication: Impaired fasting glucose On: 6-Kac-620979:26 Request TSH (45390)Indication: Acquired hypothyroidism On: 33-Evn-456639:59 Request Comments: 6 weeks RHEUMATOID FACTOR-QUANT (48988)Indication: Joint pain On: 12-Yjv-110188:02 Request C-REACTIVE PROTEIN (36563)Indication: Joint pain On: 51-Jyy-833395:02 Request SED RATE ERYTHROCYTE (73880)Indication: Joint pain On: 87-Tod-870408:02 Request URIC ACID BLOOD (87888)Indication: Joint pain On: 70-Rin-082735:02 Request T3, FREE (TRIDOTHYRONINE) (56757)Indication: Acquired hypothyroidism On: 96-Cyx-275589:58 Request T4, FREE (THYROXINE) (78176)Indication: Acquired hypothyroidism On: 48-Gnx-551567:58 Request TSH (06060)Indication: Acquired hypothyroidism On: :58 Request CBC W/AUTO DIFF WBC (77470)Indication: Edema, unspecified type On: :48 Request METABOLIC PANEL, COMPREHENSIVE (58072)Indication: Edema, unspecified type On: :48 Request SODIUM URINE (29156)Indication: Hyponatremia On: :30 Request Vitamin D Hydroxy (31741)Indication: Hypocalcemia On: : Request PARATHORMONE (02957)Indication: Hypocalcemia On: : Request PHOSPHORUS (97448)Indication: Hypocalcemia On: : Request METABOLIC PANEL, COMPREHENSIVE (04122)Indication: Hypocalcemia On: :30 Request T3, FREE (TRIDOTHYRONINE) (13463)Indication: Acquired hypothyroidism On: : Request T4, FREE (THYROXINE) (42224)Indication: Acquired hypothyroidism On: :20 Request TSH (12072)Indication: Acquired hypothyroidism On: :20 Request HGB A1C (71896)Indication: Impaired fasting glucose On: :17 Request MICROALBUMIN: CREATININE RATIO (55540) AND (66456)Indication: Impaired fasting glucose On: :17 Request METABOLIC PANEL, COMPREHENSIVE (25164)Indication: Impaired fasting glucose On: :17 Request T3, FREE (TRIDOTHYRONINE) (97891)Indication: Acute nonintractable headache, unspecified headache type On: :46 Request T4, FREE (THYROXINE) (14911)Indication: Acute nonintractable headache, unspecified headache type On: :46 Request TSH (85219)Indication: Acute nonintractable headache, unspecified headache type On: 82-Zrk-370973:46 Request TSH (03233)Indication: Acquired hypothyroidism On: :46 Request T4, FREE (THYROXINE) (02222)Indication: Acquired hypothyroidism On: :46 Request Metabolic Panel, Basic (22499)Indication: Hyponatremia On: 35-Jzc-031352:46 Request T3, FREE (TRIDOTHYRONINE) (30238)Indication: Acquired hypothyroidism On: 0-Leg-001416:46 Request MICROALBUMIN: CREATININE RATIO (00385) AND (01822)Indication: Impaired fasting glucose On: 0-Wne-515075:55 Request LIPOPROTEIN, BLD, BY NMR (17227)Indication: Other hyperlipidemia On: 9-Hpo-388846:55 Request METABOLIC PANEL, COMPREHENSIVE (98178)Indication: Osteoporosis On: 0-Feb-763649:52 Request Vitamin D Hydroxy (63090)Indication: Osteopenia On: :03 Request CBC W/AUTO DIFF WBC (41460)Indication: Gastroesophageal reflux disease without esophagitis On: 02-Lvb-880187:03 Request METABOLIC PANEL, COMPREHENSIVE (70259)Indication: Other hyperlipidemia On: 11-Pfi-961163:03 Request LIPID PANEL (02426)Indication: Other hyperlipidemia On: 80-Zqp-921828:03 Request DHEA-S (DEHYDROEPIANDROSTERONE SULFATE) (67133)Indication: Adrenal disorder, other On: :29 Request VITAMIN D, 1, 25-DIHYDROXY (66050)Indication: Vitamin D deficiency On: :29 Request T4, TOTAL (38547)Indication: Acquired hypothyroidism On: :29 Request T3, TOTAL (TRIDOTHYRONINE) (13269)Indication: Acquired hypothyroidism On: :29 Request T3, FREE (TRIDOTHYRONINE) (16737)Indication: Acquired hypothyroidism On: :28 Request T4, FREE (THYROXINE) (64686)Indication: Acquired hypothyroidism On: :28 Request TSH (14372)Indication: Acquired hypothyroidism On: :28 Request T4, FREE (THYROXINE) (14831)Indication: Thyroid nodule On: 6-Guy-419038:57 Request T3, FREE (TRIDOTHYRONINE) (76835)Indication: Thyroid nodule On: 7-Dkt-165265:57 Request TSH (41754)Indication: Thyroid nodule On: 5-Beq-595373:57 Request T3, FREE (TRIDOTHYRONINE) (87023)Indication: Acquired hypothyroidism On: :39 Request Comments: forward to Dr Grimm Endocronologist, [place] ID T4, FREE (THYROXINE) (73941)Indication: Acquired hypothyroidism On: :39 Request Comments: forward to Mello Jordanologist, [place] TSH (04730)Indication: Acquired hypothyroidism On: :39 Request Comments: forward to Marie Jordan, [place] DHEA (DEHYDROEPIANDROSTERONE) (26668)Indication: Adrenal disorder, other On: :39 Request Comments: forward to Marie Jordan [place] CALCIFEDIOL (87538)Indication: Vitamin D deficiency On: :38 Request Comments: forward to Marie Jordan [facility] METABOLIC PANEL, COMPREHENSIVE (60275)Indication: Other hyperlipidemia On: 53-Sat-796310:32 Request LIPID PANEL (26319)Indication: Other hyperlipidemia On: 57-Bsz-234335:32 Request CBC W/AUTO DIFF WBC (68668)Indication: Macrocytosis without anemia On: 09-Nve-231149:53 Request METABOLIC PANEL, COMPREHENSIVE (61365)Indication: Other hyperlipidemia On: 88-Eed-958197:53 Request LIPID PANEL (62397)Indication: Other hyperlipidemia On: 04-Vmq-158343:53 Request METABOLIC PANEL, COMPREHENSIVE (81984)Indication: Other hyperlipidemia On: 41-Bep-734220:24 Request LIPID PANEL (32209)Indication: Other hyperlipidemia On: 23-Igi-647518:24 Request CULTURE, SPUTUM (00299)Indication: Cough On: 97-Cyn-782284:14 Request METABOLIC PANEL, COMPREHENSIVE (49168)Indication: Other hyperlipidemia On: 7-Gjj-727657:02 Request LIPID PANEL (05862)Indication: Other hyperlipidemia On: 2-Cqh-273644:02 Request CBC WITH MANUAL DIFF ([id number])Indication: Upper Respiratory Infection On: 2-Ueg-516752:11 Request METABOLIC PANEL, COMPREHENSIVE (05723)Indication: Upper Respiratory Infection On: 7-Ebn-661305:11 Request LIPID PANEL (90112)Indication: Other hyperlipidemia On: 6-Jxq-020075:11 Request LIPID PANEL ([id number])Indication: Other hyperlipidemia On: :28 Request METABOLIC PANEL, COMPREHENSIVE (17764)Indication: Other hyperlipidemia On: 38-Sxv-270529:28 Request Vitamin D Hydroxy (32352)Indication: Osteopenia On: 48-Dus-228691:16 Request CBC WITH MANUAL DIFF ([id number])Indication: Fatigue On: :16 Request METABOLIC PANEL, COMPREHENSIVE ([id number])Indication: Fatigue On: :16 Request T3, FREE (TRIDOTHYRONINE) ([id number])Indication: Acquired hypothyroidism On: :16 Request T4, FREE (THYROXINE) (06973)Indication: Acquired hypothyroidism On: :16 Request TSH ([id number])Indication: Acquired hypothyroidism On: :16 Request LIPID PANEL (01869)Indication: Other hyperlipidemia On: :15 Request T3, FREE (TRIDOTHYRONINE) ([id number])Indication: Acquired hypothyroidism On: 21-Feb-2012 Request T4, FREE (THYROXINE) ([id number])Indication: Acquired hypothyroidism On: 21-Feb-2012 Request TSH ([id number])Indication: Acquired hypothyroidism On: 21-Feb-2012 Request Metabolic Panel, Basic ([id number])Indication: Fatigue On: 13-Hun-314524:58 Request Anti-TPO Antibody ([id number])Indication: Acquired hypothyroidism On: 66-Pte-170355:56 Request T3, FREE (TRIDOTHYRONINE) ([id number])Indication: Acquired hypothyroidism On: 57-Xnz-083091:56 Request T4, FREE (THYROXINE) ([id number])Indication: Acquired hypothyroidism On: 23-Gug-940165:56 Request TSH ([id number])Indication: Acquired hypothyroidism On: 73-Rls-860560:49 Request VITAMIN B-12 (CYANOCOBALAMIN) ([id number])Indication: Macrocytosis without anemia On: 14-Ohz-300593:49 Request TSH ([id number])Indication: Palpitations On: 38-Zgo-60064:48 Request METABOLIC PANEL, COMPREHENSIVE (62097)Indication: Syncope On: :48 Request CBC WITH MANUAL DIFF ([id number])Indication: Syncope On: :48 Request D-Dimer ([id number])Indication: Syncope On: 04-Dbr-64910:48 Request Comments: stat CBC WITH MANUAL DIFF ([id number])Indication: inflammatory arthritis- following with valenke On: 34-Dnl-395554:03 Request METABOLIC PANEL, COMPREHENSIVE ([id number])Indication: inflammatory arthritis- following with valenke On: 52-Qkj-989386:03 Request LIPID PANEL (02339)Indication: Other hyperlipidemia On: 48-Rbh-120753:03 Request TSH ([id number])Indication: Acquired hypothyroidism On: 79-Wrb-88839:56 Request TSH ([id number])Indication: Acquired hypothyroidism On: 7-Cmz-132728:08 Request Comments: to be done in 8 weeks. METABOLIC PANEL, COMPREHENSIVE ([id number])Indication: Dysphagia, unspecified dysphagia On: 79-Rxu-163534:52 Request LIPID PANEL ([id number])Indication: Other hyperlipidemia On: 58-Bma-983993:52 Request TSH ([id number])Indication: Acquired hypothyroidism On: 89-Ljg-922263:52 Request TSH ([id number])Indication: Acquired hypothyroidism On: 72-Xti-561256:15 Request CULTURE, SPUTUM ([id number])Indication: Cough On: 3-Csr-255931:52 Request Throat Culture ([id number])Indication: Unspecified bacterial pneumonia On: 82-Mjg-618136:00 Request Comments: swab tounge per order from Dr. Brown ARELY CULTURE-OTHER ([id number])Indication: Unspecified bacterial pneumonia On: 21-Szn-122528:43 Request EBV Panel ([id number])Indication: Fatigue On: 26-Rxh-668810:41 Request METABOLIC PANEL, COMPREHENSIVE ([id number])Indication: Fatigue On: :41 Request CBC WITH MANUAL DIFF ([id number])Indication: Fatigue On: 92-Tpq-624919:41 Request ARELY CULTURE-OTHER ([id number])Indication: Pharyngitis, acute On: 50-Cbf-257760:24 Request Rapid Strep Test, Office ([id number])Indication: Pharyngitis, acute On: 81-Cwc-526481:24 Request CBC WITH MANUAL DIFF ([id number])Indication: Anxiety On: :13 Request METABOLIC PANEL, COMPREHENSIVE (84076)Indication: Other hyperlipidemia On: :13 Request T4, FREE (THYROXINE) ([id number])Indication: Acquired hypothyroidism On: :12 Request T3, FREE (TRIDOTHYRONINE) ([id number])Indication: Acquired hypothyroidism On: :12 Request TSH ([id number])Indication: Acquired hypothyroidism On: :12 Request LIPID PANEL ([id number])Indication: Other hyperlipidemia On: :11 Request URINE ARELY CULTURE-SPRING COL COUNT (10206)Indication: Urinary frequency On: :21 Request METABOLIC PANEL, COMPREHENSIVE ([id number])Indication: Gastroesophageal reflux disease without esophagitis On: :19 Request CBC WITH MANUAL DIFF ([id number])Indication: Gastroesophageal reflux disease without esophagitis On: :19 Request HELICOBACTER PYLORI ANTIBODY PROFILE IgG, IgM, IgA (48503)Indication: Gastroesophageal reflux disease without esophagitis On: :13 Request CBC WITH MANUAL DIFF ([id number])Indication: Preoperative examination On: :42 Request METABOLIC PANEL, COMPREHENSIVE (15138)Indication: Preoperative examination On: :42 Request PTT (Activated Partial Thromboplastin Time) ([id number])Indication: Preoperative examination On: :42 Request PT (Prothrobim Time) ([id number])Indication: Preoperative examination On: :42 Request URINALYSIS, W/ MICRO ([id number])Indication: Preoperative examination On: :41 Request TSH ([id number])Indication: Acquired hypothyroidism On: 22-Oej-951559:41 Request LIPID PANEL ([id number])Indication: Other hyperlipidemia On: 15-Wlz-437933:41 Request ARELY CULTURE-OTHER ([id number])Indication: Pharyngitis, acute On: 2-Yxn-186714:30 Request ARELY CULTURE-OTHER ([id number])Indication: Pharyngitis, acute On: 4-Epj-691083:14 Request Thin prep Pap (71562)Indication: Well woman exam On: 52-Dtb-72755:47 Request Thin prep Pap (33055)Indication: Well woman exam On: 4-Iwt-208276:09 Request Vitamin D Hydroxy (68125)Indication: Osteopenia On: Request CBC WITH MANUAL DIFF ([id number])Indication: 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 On: Request METABOLIC PANEL, COMPREHENSIVE ([id number])Indication: 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 On: : Request LIPID PANEL (87642)Indication: Other hyperlipidemia On: : Request TSH ([id number])Indication: Acquired hypothyroidism On: Request Creatine Kinase Total (52495)Indication: Arthritis On: : Request METABOLIC PANEL, COMPREHENSIVE (23667)Indication: Arthritis On: : Request CCP ANTIBODY ([id number])Indication: Arthritis On: : Request SED RATE ERYTHROCYTE ([id number])Indication: Arthritis On: : Request C-REACTIVE PROTEIN (31388)Indication: Arthritis On: Request JACQUI (ANTINUCLEAR ANTIBODY) ([id number])Indication: Arthritis On: : Request RHEUMATOID FACTOR-QUANT ([id number])Indication: Arthritis On: : Request TSH ([id number])Indication: Acquired hypothyroidism On: : Request HEPATIC FUNCTION PANEL (45539)Indication: Other hyperlipidemia On: : Request LIPID PANEL (63969)Indication: Other hyperlipidemia On: : Request Vitamin D Hydroxy (84203)Indication: Osteopenia On: :27 Request LIPID PANEL (76652)Indication: Other hyperlipidemia On: :22 Request HEPATIC FUNCTION PANEL ([id number])Indication: Other hyperlipidemia On: 7-Sdt-810672:21 Request URINE ARELY CULTURE (SPRING COL COUNT) (33058)Indication: Abnormal urine On: :19 Request TSH ([id number])Indication: Acquired hypothyroidism On: 2-Clk-391060:18 Request URINALYSIS, W/ MICRO ([id number])Indication: Low back pain On: 38-Kto-386632:50 Request T3, FREE (TRIDOTHYRONINE) ([id number])Indication: Acquired hypothyroidism On: 49-Ija-778017:50 Request T4, FREE (THYROXINE) ([id number])Indication: Acquired hypothyroidism On: :50 Request CBC WITH MANUAL DIFF ([id number])Indication: Low back pain On: :49 Request METABOLIC PANEL, COMPREHENSIVE (17927)Indication: Family history of diabetes mellitus On: :49 Request LIPID PANEL ([id number])Indication: Other hyperlipidemia On: :47 Request TSH ([id number])Indication: Acquired hypothyroidism On: :47 Request Planned Encounters [...] Martha A Fast DO, Martha A Comments: [id number] arm, SCprefilled syringeMLONG ELECTROCARDIOGRAM, COMPLETE (ECG) On: 05-Dec-2017 Intent (57837)By: Fast DO, Martha A Fast Comments: ekg showed normal sinus rhythym, normal axis, no acute st/t wave changes sinus ariana DO, Martha A MRI OF BRAIN WITH AND WITHOUT On: 01-Nov-2017 Intent CONTRAST (50633)By: Fast DO, Martha Comments: dont schedule on or A Fast DO, Martha A Flu Vaccine (Quadrivalent) 79139Iv: On: 01-Nov-2017 Intent Fast DO, Martha A Fast DO, Martha A Comments: Lot: #[id number]: 08/26/18Site: L dltd, IMDose prefilled syringegiven by: Kahlil reviewed and ABN signed Radiology - Forearm - RightBy: Fast On: 28-Jun-2017 Intent DO, Martha A Fast DO, Martha A DEXA SCAN AXIAL SKELETON ([id number])By: On: 28-Jun-2017 Intent Fast DO, Martha A Fast DO, Martha A Comments: august SCREENING DIGITAL TOMOSYNTHESIS OF On: 28-Jun-2017 Intent BREAST ([id number])By: Kevin SAMUEL Martha A Comments: august Fast [...] A Comments: prolia injection 1 prefilled syringelot: [id number]: 05/2019RA sub-qAD AGRICULTURE ENGINEER CHEST XRAY, PA & LATERAL (61277)By: On: 01-May-2017 Intent Fast DO, Martha A Fast DO, Martha A INFUSION, NORMAL SALINE SOLUTION , On: 21-Apr-2017 Intent 1000 CC (Special Coverage Comments: 2nd bag same lot same exp Instructions Apply. See MCM: 2048) ([id number])By: Martha Brown DO Fast DO, Martha A INFUSION, NORMAL SALINE SOLUTION , On: 21-Apr-2017 Intent 1000 CC (Special Coverage Comments: Site:[address] [place] [address] [facility] Number of attemps:1Tolerated:wellLot/exp of NS [id number] 08/15Medication?: noMLONG, AGRICULTURE ENGINEER Instructions Apply. See MCM: 2048) ([id number])By: Kevin SAMUEL, Martha A Fast DO, Martha A CHEST XRAY, PA & LATERAL ([id number])By: On: 21-Apr-2017 Intent Kevin DO, Martha A Fast DO, Martha A Comments: 3 weeks Ultrasound - ThyroidBy: Kevin DO, On: 07-Mar-2017 Intent Martha A Fast DO, Martha A PNEUM VAC ADLT/IMUMNOSPR, SBC/INTRM On: 20-Dec-2016 Intent (12405)By: Martha Brown DO A Kevin Comments: pnuemovax prefilled syringe injectionlot: [id number]: 04/2018L DELT IMpt tolerated wellAD AGRICULTURE ENGINEER DO, Martha A Flu Vaccine (Quadrivalent) 04547Ct: On: 30-Nov-2016 Intent Fast DO, Martha A Fast DO, Martha A Comments: lot: [id number]: 08/14/17ite/route: L michael, IMamt: 0.5mlVIS and ABN signed when applicableMILLIE Crespo ELECTROCARDIOGRAM, COMPLETE (ECG) On: 29-Nov-2016 Intent (67442)By: Kevin SAMUEL Martha A Kevin Comments: ekg showed normal sinus rhythym, normal axis, no acute st/t wave changes DO, Martha A INJECTION, PROLIA (J0897)By: Kevin On: 04-Nov-2016 Intent DO, Martha A Fast DO, Martha A Comments: Lot:[id number]:08/14/17Dose:0.5mLRoute:IMSite:L DltdGiven By:ZACH signed Nuclear Stress Test/Stress On: 01-Sep-2016 Intent SPECT/TreadmillBy: Fast DO, Martha A Fast DO, Martha A Aerosol Treatment (87681)By: Kevin On: 08-Aug-2016 Intent DO, Martha A Fast DO, Martha A SCREENING DIGITAL TOMOSYNTHESIS OF On: 08-Aug-2016 Intent BREAST (80618)By: Kevin SAMUEL Martha A Comments: end july Fast DO, [...] Martha A Fast DO, Martha A Comments: Lot:[id number]:02/13Dose:60mLRoute:sub qSite: l armGiven By:ZACH signed MRI OF BRAIN WITH AND WITHOUT On: 08-Feb-2016 Intent CONTRAST (45040)By: Martha Brown DO Comments: try to get this week- A Fast DO, Martha A Solu- Medrol Injection, 125mg On: 16-Dec-2015 Intent ([id number])By: Fran Brown DOa A Kevin Comments: Lot:[id number]:04/2018Dose:125mgRoute:imSite:r hipGiven By:ZACH signed DO, Martha A Aerosol Treatment ([id number])By: Kevin On: 16-Dec-2015 Intent DO, Martha A Fast DO, Martha A Flu Vaccine (Quadrivalent) 20919Ik: On: 30-Nov-2015 Intent Fast DO, Martha A Fast DO, Martha A Comments: Lot:[id number]:08/26/16Dose:0.5mLRoute:IMSite:L DltdGiven By:ZACH signed MRI LUMBAR SPINE W/O CONTRAST On: 01-Sep-2015 Intent (92576)By: Kevin SAMUEL Martha A Kevin Comments: hx of spine surgery- has done pt and pain management and nsaids- getting weak ehl right DO, Martha A DEXA SCAN AXIAL SKELETON (70304)By: On: 06-Jul-2015 Intent Fast DO, Martha A Fast DO, Martha A MAMMOGRAM, SCREENING, BOTH BREAST On: 06-Jul-2015 Intent ([id number])By: Kevin DO, Martha A Fast DO, Martha A Rocephon Injection, 1 Gm On: 06-Mar-2015 Intent ([id number])By: Kevin SAMUEL, Martha A Fast Comments: lot: [id number]: 04/27/17ite/route: RGM/IMamt: 1GVIS signed when applicableMILLIE Crespo DO, Martha A Radiology - ChestBy: Nicole KAYE, On: 09-Feb-2015 Intent Chantal Flu Vaccine (Quadrivalent) 85906Tc: On: 10-Dec-2014 Intent Kevin SAMUEL, Martha A Fast DO, Martha A Comments: Lot #:[id number] date: 07/2015Amount given:prefilled syringeSite given:L Dltd, IMGiven by: WINNIE Hart and ABN signed ADMINISTRATION OF INFLUENZA VIRUS On: 10-Dec-2014 Intent VACCINE ([id number])By: Kevin SAMUEL, Martha A Kevin SAMUEL, Matrha A BILATERAL MAMMOGRAMS (85349)By: On: 17-Jun-2014 Intent Fast DO, Martha A Fast DO, Martha A Comments: screening FLU VAC, SPLIT, >3 YEARS, INTRAMUSC On: 02-Dec-2013 Intent (36004)By: Martha Brown DO Comments: Lot #:[id number] date:10/2015Amount given:0.5mlRoute: IMSite given: left deltoidGiven by: GARETT Washington DO, Debra A IMMUNIZ ADMNIN, 1 VAC, SNGL/COMBO On: 02-Dec-2013 Intent (45980)By: Visit, Nurse CT OF RIGHT HIP WITH CONTRAST On: 30-Sep-2013 Intent (62890)By: Martha Brown DO Comments: with or without contrast DO, Martha [...] A Fast DO, Martha A Pulse Oximetry (76561)By: Kevin SAMUEL, On: 14-May-2013 Intent Martha A Fast DO, Martha A Comments: 98 Spirometry (49042)By: Kevin SAMUEL, On: 14-May-2013 Intent Martha A [...] SPLIT, >3 YEARS, INTRAMUSC On: 28-Jan-2013 Intent (20971)By: Kevin SAMUEL Martha A Fast Comments: Lot #:[id number] date:mount given:0.5mlRoute: IMSite given: L dltdVIS and ABN signedGiven by: GARETT Washington DO, Martha A IMMUNIZ ADMNIN, 1 VAC, SNGL/COMBO On: 28-Jan-2013 Intent (49455)By: Kevin DO Martha A Fast DO, Martha A Eprescribed [...] Martha A Fast DO, Martha A Spirometry (63645)By: Kevin SAMUEL, On: 28-May-2012 Intent Martha A Fast DO, Martha A Comments: good effort and curve mild obst Pulse Oximetry (66608)By: Kevin SAMUEL, On: 28-May-2012 Intent Martha A Fast DO, Martha A Comments: 98 Breast Screening - BilateralBy: On: 28-May-2012 Intent Kevin DO, Martha A Fast DO, Martha A Eprescribed prescriptions On: 28-May-2012 Intent (G8553)By: Patito Tineo Eprescribed prescriptions On: 27-Apr-2012 Intent (G8553)By: Patito Tineo Eprescribed prescriptions On: 13-Feb-2012 Intent (G8553)By: Fast DO, Martha A Fast DO, Martha A Eprescribed prescriptions On: 30-Jan-2012 Intent (G8553)By: Patito Tineo FLU VAC, SPLIT, >3 YEARS, INTRAMUSC On: 09-Dec-2011 Intent (79173)By: Patito Tineo Comments: Lot #[id number]-2/30/13Site-left deltoidgiven by: Angela Vincent, AGRICULTURE ENGINEER IMMUNIZ ADMNIN, 1 VAC, SNGL/COMBO On: 09-Dec-2011 Intent ([id number])By: Patito Tineo Nuclear Stress Test/Stress On: 22-Nov-2011 [...] A Comments: with 12mm tablet Pulse Oximetry (74960)By: Fast DO, On: 28-Jun-2011 Intent Martha A Fast DO, Martha A Comments: 98 Radiology - Chest- PA and LatBy: On: 28-Jun-2011 Intent Fast DO, Martha A Fast DO, Martha A Comments: stat call wet read Spirometry (76166)By: Fast DO, On: 28-Jun-2011 Intent Martha A Fast DO, Martha A Comments: good effort and curve normal Radiology - ChestBy: Fast DO, Martha On: 07-Jun-2011 Intent A Fast DO, Martha A Comments: PA/LAT (do in 1 month) Eprescribed prescriptions On: 07-Jun-2011 Intent (G8553)By: Fast DO, Amrtha A Fast DO, Martha A Pulse Oximetry (46653)By: Fast DO, On: 07-Jun-2011 Intent Martha A Fast DO, Martha A Comments: 95 Radiology - Chest- PA and LatBy: On: 07-Jun-2011 Intent Fast DO, Martha A Fast DO, Martha A Comments: call wet read MAMMOGRAM, SCREENING, BOTH BREASTS On: 20-May-2011 Intent (07013)By: Fast DO, Martha A Fast DO, Martha A Ultrasound - ThyroidBy: Fast DO, On: 27-Apr-2011 Intent Martha A Fast DO, Martha A TDAP VACCINE >7 IM (44612)By: On: 27-Apr-2011 Intent Patito Tineo Comments: 2009 FLU VAC, SPLIT, >3 YEARS, INTRAMUSC On: 21-Dec-2010 Intent (92283)By: Patito Tineo Comments: Lot #:[id number] date:mount given:0.5mlRoute: IMSite given:left deltGiven by: GARETT Washington IMMUNIZ ADMNIN, 1 VAC, SNGL/COMBO On: 21-Dec-2010 Intent (92151)By: Patito Tineo EKG (27051)By: Cynthia Torres RN On: 27-Oct-2010 Intent Comments: ekg showed normal [...] BONE DENSITY, AXIAL SKELETON On: 04-May-2010 Intent ([id number])By: Patito Tineo MAMMOGRAM, SCREENING, BOTH BREASTS On: 04-May-2010 Intent (08721)By: Patito Tineo Clinical Breast Examination On: 04-May-2010 Intent (G0101)By: Patito Tineo Nuclear Medicine - Bone ScanBy: On: 02-Apr-2010 Intent Fast DO, Martha A Fast DO, Martha A Comments: full body- has neck pain and arthralgias and abnormal sacroiliac joint on xray-w ith focal sclerosis MAMMOGRAM, SCREENING, BOTH BREASTS On: 02-Apr-2010 Intent (33506)By: Kevin DO, Martha A Fast Comments: due end of may DO, Martha A Ultrasound - ThyroidBy: Noman, On: 23-Dec-2009 Intent Patito IMMUNIZ ADMNIN, 1 VAC, SNGL/COMBO On: 23-Dec-2009 Intent (53499)By: Kevin DO, Martha A Fast Comments: lot # [id number] 4Pexp- 05/20108722vxak-ICFEcifyg-NAlcxu- 0.5ML tolerated well CHenjenniferon AGRICULTURE ENGINEER DO, Martha A FLU VAC, SPLIT, >3 YEARS, INTRAMUSC On: 23-Dec-2009 Intent (70772)By: Fast DO, Martha A Fast DO, Martha A Spirometry (07661)By: Kevin DO, On: 26-Aug-2009 Intent Martha A Fast DO, Martha A Comments: good effort and curve normal Pulse Oximetry (74412)By: Kevin DO, On: 26-Aug-2009 Intent Martha A Fast DO, Martha A Comments: 99 Radiology - Chest- PA and LatBy: On: 26-Aug-2009 Intent Fast DO, Martha A Fast DO, Martha A EKG (21794)By: Fast DO, Martha A On: 02-Jul-2009 Intent [...] Martha A Instructions Name Dates Details Acute bacterial bronchitis : How to access [...] Other hyperlipidemia : DISCONTINUED - LIPID PANEL (31235) Indication: Other hyperlipidemia BMI between 19-24,adult : [...] Instructions Indication: Syncope Encounters Office Visit On: 23-Feb-2018 10:25 Encounter Reason: [...] up for chronic medical issues: she saw [facility] and he reviewed everything- and is sending [...] of neck thoracic may need surgery saw endo and thinks maybe adrenal issue from steroid [...] and depression. screening, colonoscopy (q 3 years 2016), screening, mammography (2017), screening, Pap smear (hysterectomy) and screening, visual acuity (Dr. Carranza is past due). Note f or Physical exam: she had prolia and did well- and bp is good- [facility] [...] - did End: 05-Sep-2016 9:46 get to cc- supposed to see endo doesnt think thyroid right- and doesnt have ms- seeing urolgoist oct 26- - saw neuro at [facility]- - they think white matter partly migrainous- they looked at her mris - they going to send to lyric writer as well- the valium reallyhelping her sleep [...] a difference ==felt better than did- seeing [facility] thinks MS but doesnt have the oligoclonal bands so not going to treat her until see neuro at [facility]- specialist to help determine- he [...] daily stress with [facility] health [facility] - Encounter Diagnosis: Chronic intractable [...] mental anxiety- - trembling- goes first of dec for thryoid check - was hyper in [...] visual acuity (yearly). Note for Physical exam: [facility]- she is seeing Dr Wilburn on for her back and gettig thoracic mri and sa w painmanagement stillnot comfortable- tried fosamax in past gaver her terrible side effects gi upset , [ADDITIONAL REASON] Follow up, Laboratory Test Results - Date: (08/2015- [facility]). Encounter Diagnosis: BMI between 19-24,adult, [...] about pain management. Do End: 01-Sep-2015 9:17 kenishant feel like her pain is being managed.- [...] has been pretty good- she seeing new endo rita nd has said has sluggish adrenal but [...] - she saw neurologist dr howard in [place]- he did tilt table table test [...] (300.00), Gerd (530.81), inflammatory arthritis- following with [facility] Annotation/Addendum On: 03-Oct-2011 12:00 Encounter [...] no new complaints- [facility] has good energy level and [...] back in 2005- same surgeon- doing at [facility]- she saw Noni who told ehr to [...] able to do more- and is joining [employer] to keep doing the exercises -- bp [...] Dr Gonzalez-- this person now moving to [place]- mentally the aquatherapy is helpi ng- physically [...] of help--was told last year chol re ally high and her doctor wanted to put her on medsEncounter Diagnosis: Hyperlipidemia (272.4), Hypothyroidism (244.9), Degenerative Disc Disease - Lumbar (722.52), Spinal Stenosis, Unspecified Region (724.00), Family history of diabetes mellitus (V18.0), Low back pain (724.2), Abnormal mammogram (793.80), Fibrocystic Breast Disease (610.2), Hip bursitis 726.5 [facility] Payers [facility] HospitalZ[facility] LAW; a guarantor
--- OUTSIDE RECORDS SUMMARY | 2018-05-23 11:24 | XMS RPT_ITS | Continuity of Care Document ---
:1960 Author Organization [facility] Address [address] [facility] [address] [place] [address] Phone Care Team Providers Name Role Phone Martha Brown DO Unavailable Brinda IRVIN, Dr. Padilla Jones Unavailable Jitendra Cook MD Unavailable Alan Torres MD Unavailable Eusebio Braswell Unavailable Dr. Carlito Zamora DO Unavailable Aristides Daily Unavailable Unavailable Dr. Matt Wilburn MD Unavailable Shahla Myers MD Unavailable [facility] Unavailable Niru Taylor Unavailable Trudi Villafana Unavailable Dr. Niru Meyer MD Unavailable Rossy IRVIN, Gato Castillo Unavailable Jay Conley Unavailable Chikis Ashley Unavailable YURIY Vernon Unavailable Unavailable Madison Parikh MD Unavailable Cherie Fountain Unavailable Unavailable Patito Tineo Unavailable Unavailable Unavailable [...] days Refills: 0 Ordered:11-Jun-2009 Mast RN, Allison Ciprofloxacin HCl 500 MG Oral Tablet 1 [...] DO, Martha A Start : 05-Dec-2017 Active DiazePAM 5 MG Oral Tablet 1 (one) Tablet bid for 0 days Quantity: 60 {Tablet} Refills: 0 Ordered:17-Oct-2017 Fast DO Martha AFast DO, Martha A Start : 17-Oct-2017 Active Comments:sixtyfaxed to BMT 06/16/17 Escitalopram Oxalate 20 MG Oral Tablet 1 (one) Tablet qhs for 90 days Quantity: 90 {Tablet} Refills: 3 Ordered:07-Mar-2017 Kevin SAMUELFrandestini ROMEROFran dudley DOa A Start : 07-Mar-2017 Active Hysingla ER 20 MG Oral Tablet ER 24 Hour Abuse-Deterrent 1 qd (20 MG) Active PredniSONE 5 MG Oral Tablet 1 (one) Tablet qd as directed for 90 days Quantity: 90 {Tablet} Refills: 3 Ordered:05-Dec-2017 Kevin SAMUEL Martha ROMEROoctavia SAMUEL Matrha A Start : 05-Dec-2017 Active PredniSONE 5 MG Oral Tablet 1 (one) Tablet qd as directed for 30 days Quantity: 40 {Tablet} Refills: 0 Ordered:05-Dec-2017 Kevin SAMUELMartha HEATHERoctavia SAMUEL Martha A Start : 05-Dec-2017 Active Comments:take with food in am Prolia 60 MG/ML Subcutaneous Solution 1 (one) Milliliter q 6 for 0 days Quantity: 1 {Milliliter} Refills: 0 Ordered:05-Dec-2017 Kevin SAMUELMartha HEATHERFran dudley DOa A Start : 05-Dec-2017 Active Propranolol HCl 20 MG Oral Tablet bid (20 MG) Active Rosuvastatin Calcium 20 MG Oral Tablet 1 (one) Tablet qhs for 90 days Quantity: 90 {Tablet} Refills: 3 Ordered:05-Dec-2017 Kevin SAMUEL Martha ROMEROoctavia SAMUEL Martha A Start : 05-Dec-2017 Active Synthroid 150 MCG Oral Tablet 1 (one) Tablet daily except 1/2 tab on m,w,f, for 90 days Refills: 3 Ordered:05-Dec-2017 Kevin SAMUELMartha HEATHERFran dudley DOa A Start : 05-Dec-2017 Active Dispense as Written Comments:COLTONCOLTONCOLTON Topiramate 50 MG Oral Tablet 1 Tablet 3 tabs at night and 1 in morning for 0 days Quantity: 270 {Tablet} Refills: 3 Ordered:28-Jun-2017 Kevin SAMUELMartha DO, Debra A Start : 28-Jun-2017 Active [...] : 24-May-2016 End : 01-Sep-2016 Inactive NYSTATIN, 651890HYBL/ML (Mouth/Throat Suspension) 1 Suspension 5 cc 5 [...] Quantity: 1 {Suspension} Refills: 0 Ordered:15-Aug-2012 Martha SAMUEL DO, Martha A Start : 15-Aug-2012 End : 15-Aug-2012 Discontinued NEXIUM, 40MG (Oral Capsule Delayed Release) [address] bid for 0 days Quantity: 60 {Capsule_DR} Refills: 3 Ordered:27-Apr-2011 Martha SAMUEL DO, Martha A Start : 27-Apr-2011 End : 27-Apr-2011 Discontinued Comments:1 hour before bed- failed omeprazole and pepcid Powderly 3 1200 MG Oral Capsule 2 qd [...] days Quantity: 11 {Tablet} Refills: 0 Ordered:06-Mar-2015 aPtito Tineo Start : [...] WITH Contrast Result: Comments: See Note; NOTES: [facility] Imaging Services [address] [place] [address] Abdomen/Pelvis WITH Contrast MR#: [id number] Acct: [id number] Name: TITA LAW Rep #: [id number] : 1960 F 57 From: Barrera Galeana MD PCP: Martha Brown DO Status: REG CLI Study: Abdomen/Pelvis WITH Contrast Date of Exam: 02/14/18 Exam# [id number] Ordering Dr: Chikis Ashley STUDY: CT ABDOMEN [...] Barrera Galeana MD at 10:47 EST Tel [phone], Service support , CC: Martha Brown DO; Chikis Ashley MD Roofing Machine Tender: Signed 08-Jan-2018 Abdomen/Pelvis without Cont Result: Comments: See Note; NOTES: [facility] Imaging Services [address] [place] [address] Abdomen/Pelvis without Cont MR#: [id number] Acct: [id number] Name: TITA LAW Rep #: [id number] : 1960 F 57 From: Barrera Galeana MD PCP: Martha Brown DO Status: REG CLI Study: Abdomen/Pelvis without Cont Date of Exam: 01/08/18 Exam# [id number] Ordering Dr: Martha Brown DO S TUDY: [...] Barrera Galeana MD at 13:09 EST Tel [phone], Service support , CC: Martha Brown DO Roofing Machine Tender: Signed 30-Dec-2017 Urgent Care Visit Report Result: Comments: See Note; NOTES: [facility] [address] [place] [address] OFFICE VISIT Date of Service: 12/30/17 MR#: [id number] Acct: [id number] Name: TITA LAW Rep #: [id number] : 1960 Provider: APPLE Casiano Age/Sex: 57/F Location: [facility] Status: Signed Intake Vital Signs12/30/17 Height 5 [...] person, oriented to place, oriented to time HENPR Head: normocephalic Ears: external ears normal, TM's [...] W/WO Contrast Result: Comments: See Note; NOTES: [facility] Services [address] [place] [address] Brain W/WO Contrast MR#: [id number] Acct: [id number] Name: TITA LAW Rep #: [id number] : 1960 F 57 From: Pedro Luis Akthar MD PCP: Martha Brown DO Status: REG CLI Study: Brain W/WO Contrast Date of Exam: 11/06/17 Exam# [id number] Ordering Dr: Martha Brown DO STUDY: MRI [...] Service support , CC: Martha Brown DO Roofing Machine Tender: Signed 31-Aug-2017 SCREENING MAMM (CAD), BILAT Result: Comments: See Note; NOTES: [facility] Imaging Services [address] [place] [address] SCREENING MAMM (CAD), BILAT MR#: [id number] Acct: [id number] Name: TITA LAW Rep #: [id number] : 1960 F 57 From: Barrera Galeana MD PCP: Martha Brown DO Status: REG CLI Study: SCREENING MAMM (CAD), BILAT Date of Exam: 08/31/17 Exam# [id number] Ordering Dr: Martha Brown DO MAMMOGRAPHY - [...] biopsy of a clini griselda suspicious abnormality. [id number] Electronically Signed: Barrera Galeana MD at 14:24 EDT Tel [phone], Service support , CC: Martha Brown DO Roofing Machine Tender: Signed 31-Aug-2017 Dexa Bone Density Study Result: Comments: See Note; NOTES: [facility] Imaging Services [address] [place] [address] Dexa Bone Density Study MR#: [id number] Acct: [id number] Name: TITA LAW Rep #: [id number] : 1960 F 57 From: Barrera Galeana MD PCP: Martha Brown DO Status: REG CLI Study: Dexa Bone Density Study Date of Exam: 08/31/17 Exam# [id number] Ordering Dr: Martha Brown DO STUDY: D [...] Barrera Galeana MD at 15:16 EDT Tel [phone], Service support , CC: Martha Brown DO Roofing Machine Tender: Signed 27-Jul-2017 PT D/C Summary (1) Result: Comments: See Note; NOTES: [facility] [address] [facility]. [address] [place] [address] Fax REHABILITATION SERVICES DISCHAR GE SUMMARY MR#: [id number] Acct: [id number] Name: TITA LAW Rep #: [id number] : 1960 57 From: lAan Miller PT, Cert. T, OCS Referring DrIfeanyi: Maddie Munoz Status: REG RCR Insu zafar: [facility] SELF PAY INSURANCE HP - PT D/C [...] please feel free to call me at [phone]. Thank you for the referral of this patient. Sincerely, Alan Miller PT, <Electronically signed by Alan yuan PT, Cert. MDT, OCS> 07/27/17 7434 CC: Maddie Fernandezbi; Martha Brown DO LISHA Signed 28-Jun-2017 Forearm 2 Views Result: Comments: See Note; NOTES: [facility] Imaging Services [address] [place] [address] Forearm 2 Views MR#: [id number] Acct: [id number] Name: TITA LAW Rep #: [id number] : 1960 F 56 From: Jam Thomas MD PCP: Martha Brown DO Status: REG CLI Study: Forearm 2 Views Date of Exam: 06/28/17 Exam# [id number] Ordering Dr: Martha Brown DO STUDY: X-RAY [...] Service support , CC: Martha Brown DO Roofing Machine Tender: Signed 28-Jun-2017 Wrist min 3 Views Result: Comments: See Note; NOTES: [facility] Services [address] [place] [address] Wrist min 3 Views MR#: [id number] Acct: [id number] Name: TITA LAW Rep #: [id number] : 1960 F 56 From: Jam Thomas MD PCP: Martha Brown DO Status: REG CLI Study: Wrist min 3 Views Date of Exam: 06/28/17 Exam# [id number] Ordering Dr: Martha Brown DO STUDY: X-RAY [...] Service support , CC: Martha Brown DO Roofing Machine Tender: Signed 28-Jun-2017 Brain/Head without Contrast Result: Comments: See Note; NOTES: [facility] Services [address] [place] [address] Brain/Head without Contrast MR#: [id number] Acct: [id number] Name: TITA LAW Rep #: [id number] : 1960 F 56 From: Krzysztof Rivera MD PCP: Martha Brown DO Status: REG CLI Study: Brain/Head without Contrast Date of Exam: 06/28/17 Exam# [id number] Ordering Dr: Martha Brown DO STUDY : [...] Service support , CC: Martha Brown DO Roofing Machine Tender: Signed 01-May-2017 Chest PA and Lateral Result: Comments: See Note; NOTES: [facility] Services [address] [place] [address] Chest PA and Lateral MR#: [id number] Acct: [id number] Name: TITA LAW Rep #: [id number] : 1960 F 56 From: Murray Palma MD PCP: Martha Brown DO Status: REG CLI Study: Chest PA and Lateral Date of Exam: 05/01/17 Exam# [id number] Ordering Dr: Martha Brown DO STUDY: X-RAY [...] MD at 17:05 EST , Service support [phone], CC: Martha Brown DO Roofing Machine Tender: Signed 15-Apr-2017 Discharge Instruction Result: Comments: See Note; NOTES: [facility] Medical Records Department [address] [place] [address] Discharge Instruction 04/15/17 1813 MR#: [id number] Acct: [id number] Name: TITA MONTOYA Rep #: [id number] : 1960 56 From: Dusty Dumont MD PCP: Martha Brown DO Status: REG ER ED Disposition - Plan for ED Patient: Chief Complaint: Shortness of Breath Instructions: [facility] Prescriptions: Levofloxacin [Levaquin] 500 mg PO DAILY #7 tab Referrals: Martha Brown DO [Primary Care Provider] - What to do if you have Problems For any increased pain, shortness of b reath, bleeding, nausea or vomiting, chest pain, or any unexpected problems, contact your Primary Care Provider. Call [facility] ([phone]) or report to the closest Emergency Room. Call 911 if necessary. 04/15/171813 <Electronically signed by Dusty Dumont MD> Date Dusty uDmont MD Cosigner Signature (If Indicated): Ruben huertas CC: Martha Brown DO 15-Apr-2017 Emergency Department Summary Result: Comments: See Note; NOTES: [facility] Medical Records Department [address] [place] [address] Emergency Department Summary 04/15/171810 MR#: [id number] Acct: [id number] Name: TITA LAW Rep #: [id number] : 1960 56 From: Dusty Dumont MD [...] acquired pneumonia This note was generated with Mir Vracha software. It may contain incorrect words, spelling, and punctuation that were not noted in review of the chart prior to signing ED Disposition - Plan for ED Patient: Chief Complaint: Shortness of Breath Referrals: Martha Brown, [Primary Care Provider] - What to do if you have Problems For any increased pain, shortness of breath, bleeding, nausea or vomiting, chest pain, or any unexpecte d problems, contact your Primary Care Provider. Call [facility] ([phone]) or report to the closest Emergency Room. Call 911 if necessary. 04/15/173 <Electronically signed by Art Dumont MD> Date Dusty Dumont MD Cosigner Signature (If Indicated): Date CC: Martha Brown DO 15-Apr-2017 Chest PA and Lateral Result: Comments: See Note; NOTES: [facility] Imaging Services [address] [place], [place] [address] [place] [address] Chest PA and Lateral MR#: [id number] Acct: [id number] Name: TITA LAW Rep #: [id number] : 1960 F 56 From: Erasto Persaud MD PCP: Martha Brown DO Status: REG ER Study: Chest PA and Lateral Date of Exam: 04/15/17 Exam# [id number] Ordering Dr: Dusty Dumont MD STUDY: X-RAY [...] CC: Martha Brown DO; Dusty Dumont MD Roofing Machine Tender: Signed 03-Apr-2017 Inital Evaluation (1) - PT Result: Comments: See Note; NOTES: [facility] [address] [place] [address]. [address] [place] [address] Fax REHABILITATION SERVICES INITIAL EVALUATION MR#: [id number] Acct: [id number] Name: TITA LAW Rep #: [id number] : 1960 56 From: Alan Miller PT, Cert. MDT, OCS Referring DrIfeanyi: Maddie Munoz Status: REG RCR Insur ance: [facility] SELF PAY INSURANCE Patient's Visit Information TITA LAW is a 56 year old F referred to Physical Therapy by [facility] [employer]INGS INSPECTOR.LPREBI with a diagnosis of L-IVDD,L- STENOSIS,L-SPONDYLOPATHY,MYALGIA. Date [...] to be FAXED BACK to us at [phone] for Medicare purposes. Please let me know if there are questions or concerns regarding this plan of care. Physician Signature: Date: <Electronically signed by Alan Miller PT, Cert. [place], [facility]> 04/03/17 1017 CC: Maddie Munoz; Martha Brown DO LISHA Signed For Medicare only, by signing this I certify the plan of care. Physicians Signature Date 08-Mar-2017 Thyroid Result: Comments: See Note; NOTES: [facility] Imaging Services [address] [place] [address] Thyroid MR#: [id number] Acct: [id number] Name: TITA LAW Rep #: [id number] : [birth year] F 56 From: Barrera Galeana MD PCP: Martha Brown DO Status: REG CLI Study: Thyroid Date of Exam: 03/08/17 Exam# [id number] Ordering Dr: Martha Brown DO STUDY: THYROID [...] Galeana MD at 14:4 9 EST Tel [phone], Service support , CC: Martha Brown DO Roofing Machine Tender: Signed 06-Dec-2016 TXT - Blood Flow Screening Result: Comments: See Note; NOTES: [facility] Cardiovascular Services [address] [place] [address] 12/06/16 0815 MR#: [id number] Acct: [id number] Name: TITA LAW Rep #: [id number] [...] CC: Martha Brown DO Sharif e Dictated: 12/06/1615 Date Transcribed: 12/06/162139 Roofing Machine Tender: Signed 13-Sep-2016 Stress Report Result: Comments: See Note; NOTES: [facility] Services [address] [place] [address] Agnes ames MR#: [id number] Acct: [id number] Name: TITA LAW Rep #: [id number] [...] patient was injected with 32.8 mCi of Onboarding Specialist 99m Cardiolite and subsequently stress SPECT Cardiolite [...] of 85%. This note was generated with Lunagames software. It may contain incorrect words, spelling, and punctuation that were not noted in checking the not e before signing. 09/13/162053 <Electronically signed by Gato Blair MD> Date Gato Blair MD CC: Martha Brown DO; Gato Blair MD Date Dictated: 09/13/162046 Date Transcribed: 09/13/162046 Roofing Machine Tender: PM Signed 30-Aug-2016 Electroencephalogram Result: Comments: See Note; NOTES: [facility] Pulmonary Services/Neurology [address] [place] [address] MR#: [id number] Acct: [id number] Name: TITA LAW Rep #: [id number] : 1960 56 From: Jacinto Salazar MD [...] Date Dic tated: 08/29/161720 Date Transcribed: 08/29/161720 Roofing Machine Tender: RSR Signed 29-Aug-2016 SCREENING MAMM (CAD), BILAT Result: Comments: See Note; NOTES: [facility] Imaging Services [address] [place] [address] Verdana 4d SCREENING MAMM (CAD), BILAT MR#: [id number] Acct: [id number] Name: GINNY LAW Rep #: [id number] : 1960 F 56 From: Krzysztof White MD PCP: Martha Brown DO Status: REG CLI Study: SCREENING MAMM (CAD), BILAT Date of Exam: 08/29/16 Exam# [id number] Ordering Dr: Martha Brown DO MAMMOGRAPHY - [...] delay biopsy of a clinically suspicious abnormality. [id number] Electronically Signed: Dread White MD at 8:46 EDT , Service support , CC: Martha Brown DO Roofing Machine Tender: Signed 25-Aug-2016 Echocardiogram Complete Result: Comments: See Note; NOTES: [facility] Services [address] [place] [address] Echo Complete 08/25/16 1207 MR#: [id number] Acct: [id number] Name: TITA LAW Rep #: [id number] : 1960 56 From: Conrado Nolasco MD Attending Dr: Martha Brown DO Status: REG CLI Ordering Dr: Martha Brown DO Date: 08/25/16 Location: [facility] Sex: F C Admitted: Reason [...] Dictated: 08/25/16 1207 Date Transcribed: 08/25/16 1318 Roofing Machine Tender: Signed 09-Aug-2016 Chest PA and Lateral Result: Comments: See Note; NOTES: [facility] Imaging Services [address] [place] [address] Verdana 4d Chest PA and Lateral MR#: [id number] Acct: [id number] Name: TITA LAW Marnie p #: [id number] : 1960 F 56 From: Dustin Villatoro DO PCP: Martha Brown DO Status: REG CLI Study: Chest PA and Lateral Date of Exam: 08/09/16 Exam# [id number] Ordering Dr: Martha Brown DO STUDY: X-RAY [...] Dustin Villatoro DO at 22:20 EDT T [phone], Service support , CC: Martha Brown DO Roofing Machine Tender: Signed 21-Jul-2016 Thyroid Result: Comments: See Note; NOTES: [facility] Imaging Services [address] [place] [address] Verdana 4d Thyroid MR#: [id number] Acct: [id number] Name: TITA LAW Rep #: [id number] : 1960 F 56 From: Qunetin Inman DO PCP: Martha Brown DO Status: REG CLI Study: Thyroid Date of Exam: 07/21/16 Exam# [id number] Ordering Dr: Martha Brown DO STUDY: THYROID [...] Service support , CC: Martha Brown DO Roofing Machine Tender: Signed 23-Jun-2016 Cerv Spine 4 or 5 Views Result: Comments: See Note; NOTES: [facility] Services [address] [place] [address] Verdana 4d Cerv Spine 4 or 5 Views MR#: [id number] Acct: [id number] Name: TITA LAW Rep #: [id number] : 1960 F 55 From: Hugo Pearce MD PCP: Martha Brown DO Status: REG CLI Study: Cerv Spine 4 or 5 Views Date of Exam: 06/23/16 Exam# [id number] Ordering Dr: Martha Brown DO ADDENDUM by [...] of January 25, 2016 Electronically Signed: Hugo RolleHailey, at 15:59 EDT Tel , Service support [phone], 06/28/16 1559 Date cc: Martha Brown DO [...] support , Fax CC: Martha Brown DO Roofing Machine Tender: Signed 23-Jun-2016 Cerv Spine 4 or 5 Views Result: Comments: See Note; NOTES: [facility] Services [address] [place] [address] Verdana 4d Cerv Spine 4 or 5 Views MR#: [id number] Acct: [id number] Name: ANITITA Rep #: [id number] : 1960 F 55 From: Hugo Pearce MD PCP: Martha Brown DO Status: REG CLI Study: Cerv Spine 4 or 5 Views Date of Exam: 06/23/16 Exam# [id number] Ordering Dr: Martha Brown DO STUDY: X-RAY [...] Service support , CC: Martha Brown DO Roofing Machine Tender: Signed 23-Jun-2016 Chest PA and Lateral Result: Comments: See Note; NOTES: [facility] Imaging Services [address] [place] [address] Verda 4d Chest PA and Lateral MR#: [id number] Acct: [id number] Name: TITA LAW Marnie p #: [id number] : 1960 F 55 From: Hugo Pearce MD PCP: Martha Brown DO Status: REG CLI Study: Chest PA and Lateral Date of Exam: 06/23/16 Exam# [id number] Ordering Dr: Martha Brown: X-RAY CHEST REASON FOR EXAM: Female, 55 [...] Service support , CC: Martha Brown DO Roofing Machine Tender: Signed 02-Jun-2016 Abdomen WITH IV Contrast Result: Comments: See Note; NOTES: [facility] Services [address] [place] [address] Verdana 4d Abdomen WITH IV Contrast MR#: [id number] Acct: [id number] Name: ANIMANDYSAVANNAH Estrada Rep #: [id number] : 1960 F 55 From: Isela Wright MD PCP: Martha Brown DO Status: REG CLI Study: Abdomen WITH IV Contrast Date of Exam: 06/02/16 Exam# [id number] Ordering Dr: Martha Brown: CT ABDOMEN WITH CONTRAST REASON FOR EXAM: [...] MD at 7:28 EDT , Service support [phone], CC: Martha Brown DO Roofing Machine Tender: Signed 02-Jun-2016 Abdomen WITH IV Contrast Result: Comments: See Note; NOTES: [facility] Services [address] [place] [address] Verdana 4d Abdomen WITH IV Contrast MR#: [id number] Acct: [id number] Name: BESSY LAW Rep #: [id number] : 1960 F 55 From: Isela Wright MD PCP: Martha Brown DO Status: REG CLI Study: Abdomen WITH IV Contrast Date of Exam: 06/02/16 Exam# [id number] Ordering Dr: Martha Brown DO A DDENDUM [...] MD at 7:28 EDT , Service support [phone], Fax CC: Martha Brown DO Roofing Machine Tender: Signed 19-May-2016 Hepatobilliary Img w/Pharm Int Result: Comments: See Note; NOTES: [facility] Services [address] [place] [address] Verdana 4d Hepatobilliary Img w/Pharm Int MR#: [id number] Acct: [id number] Name: TITA LAW Rep #: [id number] : 1960 F 55 From: Mario Olivo DO PCP: Martha Brown DO Status: REG CLI Study: Hepatobilliary Img w/Pharm Int Date of Exam: 05/19/16 Exam# [id number] Ordering Dr: Carrington Brown DO CLINICAL: 55-year-old [...] at 22:51 EDT Tel , Service support [phone], CC: Martha Brown DO Roofing Machine Tender: Signed 12-May-2016 Liver Result: Comments: See Note; NOTES: [facility] Services [address] [place] [address] Verdana 4d Liver MR#: [id number] Acct: [id number] Name: TITA LAW Rep #: [id number] : 1960 F 55 From: Barrera Galeana MD PCP: Martha Brown DO Status: REG CLI Study: Liver Date of Exam: 05/12/16 Exam# [id number] Ordering Dr: Martha Brown DO STUDY: ABDOMINAL [...] Barrera Galeana MD at 11:28 EDT Tel [phone], Service anthony pport [phone], CC: Martha Brown DO Roofing Machine Tender: Signed 20-Apr-2016 NCS and/or EMG Patient Result: Comments: See Note; NOTES: [facility] Pulmonary Services/Neurology [address] [place] [address] NCS and/or EMG Patient MR#: [id number] Acct: [id number] Name: TITA LAW Rep #: [id number] : 1960 55 From: Pardeep Read MD Referring Dr: Eusebio Braswell MD Status: REG CLI Ordering Dr: Eusebio Braswell MD Date: 04/20/16 Location: [facility] Sex: F C DATE OF SERVICE: 2016 [...] nerve. Pardeep Read MD T: NTS JOB: [id number] 04/20/16 1556 <Electronically signed by Pardeep Read MD> Date Pardeep Read MD CC: Martha Brown DO; Pardeep Read MD; Eusebio Braswell MD Date Dictated: 04/20/16 1107 Date Transcribed: 04/20/161106 Roofing Machine Tender: Signed 15-Mar-2016 Fluoro Guided Lumbar Puncture Result: Comments: See Note; NOTES: [facility] Imaging Services [address] [place] [address] Verdana 4d Fluoro Guided Lumbar Puncture MR#: [id number] Acct: [id number] Name: Niecy LAW Rep #: [id number] : 1960 F 55 From: Barrera Galeana MD PCP: Martha Brown DO Status: REG CLI Study: Fluoro Guided Lumbar Puncture Date of Exam: 03/15/16 Exam# [id number] Ordering Dr: Pepper Benoit PROCEDURE: Fluoroscopic guided [...] Barrera Galeana MD at 10:09 EST Tel [phone], Service support [phone], CC: Pepper Barr [facility] OPENINGS INSPECTOR; Martha Brown DO Roofing Machine Tender: Signed 11-Mar-2016 Thyroid Result: Comments: See Note; NOTES: [facility] Imaging Services [address] [place] [address] Verdana 4d Thyroid MR#: [id number] Acct: [id number] Name: TITA LAW Rep #: [id number] : 1960 F 55 From: Barrera Galeana MD PCP: Martha Brown DO Status: REG CLI Study: Thyroid Date of Exam: 03/11/16 Exam# [id number] Ordering Dr: Martha Brown DO STUDY: THYROID [...] Barrera Galeana MD at 15:57 EST Tel [phone], Service support [phone], CC: Martha Brown DO Roofing Machine Tender: Signed 10-Feb-2016 Brain W/WO Contrast Result: Comments: See Note; NOTES: [facility] Imaging Services [address] [place] [address] Verdana 4d Brain W/WO Contrast MR#: [id number] Acct: [id number] Name: TITA LAW Rep #: [id number] : 1960 F 55 From: Madeleine Villar MD PCP: Martha Brown DO Status: REG CLI Study: Brain W/WO Contrast Date of Exam: 02/10/16 Exam# [id number] Ordering Dr: Martha Brown DO STUDY: MRI [...] MD at 23:33 EST , Service support [phone], CC: Martha Brown DO Roofing Machine Tender: Signed 25-Jan-2016 Cerv Spine 2 or 3 Views Result: Comments: See Note; NOTES: [facility] Imaging Services [address] [place] [address] Verdana 4d Cerv Spine 2 or 3 Views MR#: [id number] Acct: [id number] Name: TITA LAW Rep #: [id number] : 1960 F 55 From: Julio Cesar Soto MD PCP: Martha Brown DO Status: REG CLI Study: Cerv Spine 2 or 3 Views Date of Exam: 01/25/16 Exam# [id number] Ordering Dr: Matt Wilburn STUDY : X-RAY [...] FACR at 16:52 EST , Service support [phone], CC: MATT WILBURN; Martha Brown DO Roofing Machine Tender: Signed 25-Jan-2016 Spine Cervical (Routine) Result: Comments: See Note; NOTES: [facility] [address] [place] [address] Verquincy 4d Spine Cervical (Routine) MR#: [id number] Acct: [id number] Name: BESSY LAW Rep #: [id number] : 1960 F 55 From: Julio Cesar Soto MD PCP: Martha Brown DO Status: REG CLI Study: Spine Cervical (Routine) Date of Exam: 01/25/16 Exam# [id number] Ordering Dr: Matt Wilburn DY: MRI CERVICAL [...] FACR at 15:55 EST , Service support [phone], CC: MATT WILBURN; Martha Brown DO Roofing Machine Tender: Signed 31-Dec-2015 L/S Spine Bending Flex/Ext Result: Comments: See Note; NOTES: [facility] [address] [place] [address] Verdana 4d L/S Spine Bending Flex/Ext MR#: [id number] Acct: [id number] Name: GINNY LAW LLBHAKTI Rep #: [id number] : 1960 F 55 From: Barrera Galeana MD PCP: Martha Brown DO Status: REG CLI Study: L/S Spine Bending Flex/Ext Date of Exam: 12/31/15 Exam# [id number] Ordering Dr: Carrington Wilburn STUDY: X-RAY - [...] Galeana MD 4 at 11:17 EDT Tel [phone], Service support [phone], CC: MATT WILBURN; Martha Brown DO Roofing Machine Tender: Signed 24-Dec-2015 Chest 1 View (Portable) Result: Comments: See Note; NOTES: [facility] [address] [place] [address] Verdana 4d Chest 1 View (Portable) MR#: [id number] Acct: [id number] Name: BESSY LAW Rep #: [id number] : 1960 F 55 From: Barrera Galeana MD PCP: Martha Brown DO Status: REG ER Study: Chest 1 View (Portable) Date of Exam: 12/24/15 Exam# [id number] Ordering Dr: Rashad Acosta MD STUDY: X-RAY [...] examination of the chest. Electronically Signed: Barrera aGleana MD at 15:13 EDT Tel [phone], Service support [phone], CC: Martha Brown DO; Rashad Acosta MD Roofing Machine Tender: Signed 10-Oct-2015 Spine Lumbar without Contrast Result: Comments: See Note; NOTES: [facility] [address] [place] [address] Verdana 4d Spine Lumbar without Contrast MR#: [id number] Acct: [id number] Name: TITA LAW Rep #: [id number] : 1960 F 55 From: Quentin Inman DO PCP: Martha Brown DO Status: REG CLI Study: Spine Lumbar without Contrast Date of Exam: 10/10/15 Exam# [id number] Ordering Dr: Ruben Wilburn STUDY: CT LUMBAR [...] at 16:29 EDT Tel , Service support [phone], CC: MATT WILBURN; Martha Brown DO Roofing Machine Tender: Signed 07-Oct-2015 Spine Thoracic (Routine) Result: Comments: See Note; NOTES: [facility] [address] [place] [id number] [place] [address] 4d Spine Thoracic (Routine) MR#: [id number] Acct: [id number] Name: SARINA LAW IS Rep #: [id number] : 1960 F 55 From: Basil Culver MD PCP: Martha Brown DO Status: REG CLI Study: Spine Thoracic (Routine) Date of Exam: 10/07/15 Exam# [id number] Ordering Dr: MANDEEP DILLON MD STUDY: MRI [...] at 16:32 EDT Tel , Service support [phone], CC: Martha Brown DO; MANDEEP DILLON MD Roofing Machine Tender: Signed 29-Sep-2015 ELECTROCARDIOGRAM, COMPLETE (ECG) (39970) Comments: ekg showed normal sinus rhythym, normal axis, no acute st/t wave changes Result: [MEASUREMENTS ANALYSIS] Date of Test: 09/29/2015 10:02:56; Heart Rate: 70; GA Interval: 158; QRS: 90; QT Interval: 396; Corrected QT Interval (QTc): 413; P Wave Simpson: 73; QRS Wave Simpson: 71; T Wave Simpson: 67; Blood Pressure: 110/70 [ECG DIAGNOSTIC STATEMENTS] Date of Test: 09/29/2015 10:02:56; Summary: Sinus Rhythm WITHIN NORMAL LIMITS 03-Sep-2015 Spine Lumbar (Routine) Result: Comments: See Note; NOTES: [facility] [address] [place] [address] Verdana 4d Spine Lumbar (Routine) MR#: [id number] Acct: [id number] Name: TITA DUEÑAS Rep #: [id number] : 1960 F 55 From: Julio Cesar Soto MD PCP: Martha Brown DO Status: REG CLI Study: Spine Lumbar (Routine) Date of Exam: 09/03/15 Exam# [id number] Ordering Dr: Martha Brown DO STUDY: MRI [...] FACR at 11:54 EDT , Service support [phone], CC: Martha Brown DO Roofing Machine Tender: Signed 27-Aug-2015 Bilat Scrn Digital AND CAD Result: Comments: See Note; NOTES: [facility] [address] [place] [address] Verdana 4d Bilat Scrn Digital AND CAD MR#: [id number] Acct: [id number] Name: TITA LAW Rep #: [id number] : 1960 F 55 From: Barrera Galeana MD PCP: Martha Brown DO Status: REG CLI Study: Bilat Scrn Digital AND CAD Date of Exam: 08/27/15 Exam# [id number] Orderi ng Dr: Martha Brown DO MAMMOGRAPHY [...] delay biopsy of a clinically suspicious abnormality. HI1143 Electronically Signed: Barrera Galeana MD destini t 8:51 EDT Tel [phone], Service support [phone], CC: Martha Brown DO Roofing Machine Tender: Signed 27-Aug-2015 Dexa Bone Density Study (HP) Result: Comments: See Note; NOTES: [facility] [address] [place] [address] Verdana 4d Dexa Bone Density Study (HP) MR#: [id number] Acct: [id number] Name : TITA LAW Rep #: [id number] : 1960 F 55 From: Barrera Galeana MD PCP: Martha Brown DO Status: [facility] Study: Dexa Bone Density Study (HP) Date of Exam: 08/27/15 Exam# [id number] Or bernardo Dr: Martha Brown DO STUDY: [...] Barrera Galeana MD at 14:42 EDT Tel [phone], Service support [phone], CC: Martha Brown DO Roofing Machine Tender: Signed 27-Aug-2015 Hip 2-3 Views with Pelvis Result: Comments: See Note; NOTES: [facility] [address] [place] [address] Verdana 4d Hip 2-3 Views with Pelvis MR#: [id number] Acct: [id number] Name: TITA AMBROCIO Rep #: [id number] : 1960 F 55 From: Murray Palma MD PCP: Martha Brown DO Status: REG CLI Study: Hip 2-3 Views with Pelvis Date of Exam: 08/27/15 Exam# [id number] Ordering Dr: Martha Johnson DO STUDY: X-RAY [...] MD at 16:31 EDT , Service support [phone], RAD/Hip 2-3 Views with Pelvis IMPRESSION: Osteopenia with post-surgical changes in the lower lumbar spine. No acute pathology identified. Electr onically Signed: Murray Palma MD at 16:31 EDT , Service support [phone], CC: Martha Brown DO Roofing Machine Tender: Signed 09-Feb-2015 Chest PA and Lateral Result: Comments: See Note; NOTES: [facility] [address] [place] [address] Verdana 4d Chest PA and Lateral MR#: [id number] Acct: [id number] Name: TITA MCLEAN Rep #: [id number] : 1960 F 54 From: Barrera Galeana MD PCP: Martha Brown DO Status: REG CLI Study: Chest PA and Lateral Date of Exam: 02/09/15 Exam# [id number] Ordering Dr: Abby Rivera STUDY: X-RAY CHEST [...] Barrera Galeana MD at 15:21 EST Tel [phone], Service support [phone], RAD/Chest PA and Lateral IMPRESSION: Hyperinflation. No acute abnormality is seen. Electronically Signed: Barrera Galeana MD at 15:21 EST Tel [phone], Service support [phone], CC: Abby Rivera; Martha Brown DO Roofing Machine Tender: Signed 30-Jun-2014 Bilat Scrn Digital AND CAD Result: Comments: See Note; NOTES: [facility] [address] [place] [address] Breast Imaging Report MR#: [id number] Acct: [id number] Name: TITA LAW Rep #: [id number] : 1960 F 53 From: Barrera Galeana MD PCP: Martha Brown DO Status: REG CLI Study: Bilat Scrn Digital AND CAD Date of Exam: 06/30/14 Exam# [id number] Ordering Dr: Martha Brown DO MAMMOGRAPHY - [...] Galeana MD at 9 :06 EDT Tel [phone], Service support [phone], CC: Martha Brown DO Roofing Machine Tender: Signed 07-Oct-2013 Extremity Lower WITH Contrast Result: Comments: See Note; NOTES: [facility] [address] [place] [address] CAT Scan Report MR#: [id number] Acct: [id number] Name: TITA LAW Rep #: [id number] : 1960 F 53 From: Barrera Galeana MD PCP: Martha Brown DO Status: REG CLI Study: Extremity Lower WITH Contrast Date of Exam: 10/07/13 Exam# [id number] Ordering Dr: Martha Brown DO STUDY: CT [...] Barrera Galeana MD at 15:02 EDT Tel [phone], Service support , CC: Martha Brown DO Roofing Machine Tender: Signed 25-Sep-2013 Forearm 2 Views Result: Comments: See Note; NOTES: [facility] [address] [place] [address] Radiology Report MR#: [id number] Acct: [id number] Name: TITA LAW Rep #: [id number] : 1960 F 53 From: Barrera Galeana MD PCP: Martha Brown DO Status: REG CLI Study: Forearm 2 Views Date of Exam: 09/25/13 Exam# [id number] Ordering Dr: Martha Brown DO STUDY: X-RAY [...] Barrera Galeana MD at 16:16 EDT Tel [phone], Service support [phone], RAD/Forearm 2 Views IMPRESSION: Normal x-ray examination of the radius and ulna. Electronically Signed: Barrera Galeana MD at 16:16 EDT Tel [phone], Service support [phone], CC: Martha Brown DO Roofing Machine Tender: Signed 25-Sep-2013 Hip min 2 Views Result: Comments: See Note; NOTES: [facility] [address] [place] [address] Radiology Report MR#: [id number] Acct: [id number] Name: TITA LAW Rep #: [id number] : 1960 F 53 From: Barrera Galeana MD PCP: Martha Brown DO Status: REG CLI Study: Hip min 2 Views Date of Exam: 09/25/13 Exam# [id number] Ordering Dr: Martha Brown DO STUDY: X-RAY [...] Barrera Galeana MD at 16:18 EDT Tel [phone], Service support [phone], Fax CC: Martha Brown DO Roofing Machine Tender: Signed 25-Sep-2013 Pelvis 1 or 2 Views Result: Comments: See Note; NOTES: [facility] [address] [place] [address] Radiology Report MR#: [id number] Acct: [id number] Name: TITA LAW Rep #: [id number] : 1960 F 53 From: Khang Braun MD PCP: Martha Brown DO Status: REG CLI Study: Pelvis 1 or 2 Views Date of Exam: 09/25/13 Exam# [id number] Ordering Dr: Martha Brown DO STUDY: X-RAY [...] MD at 16:24 EDT , Service support [phone], 0063 RAD/Pelvis 1 or 2 Views IMPRESSION: Normal x-ray examination of the pelvis. Electronically Signed: Khang Braun MD at 16:24 EDT , Service support [phone], CC: Martha Brown DO Roofing Machine Tender: Signed 25-Sep-2013 Thoracic Spine 3 Views Result: Comments: See Note; NOTES: [facility] [address] [place] [address] Radiology Report MR#: [id number] Acct: [id number] Name: TITA LAW Rep #: [id number] : 1960 F 53 From: Barrera Galeana MD PCP: Martha Brown DO Status: REG CLI Study: Thoracic Spine 3 Views Date of Exam: 09/25/13 Exam# [id number] Ordering Dr: Martha Brown DO STUDY: X-RAY [...] Ac Galeana MD at 16:19 EDT Tel [phone], Service support [phone], RAD/Thoracic Spine 3 Views IMPRESSION: Degenerative changes. Elect ronically Signed: Barrera Galeana MD at 16:19 EDT Tel [phone], Service support [phone], CC: Martha Brown DO Roofing Machine Tender: Signed 24-Jun-2013 Bilat Scrn Digital & CAD Result: Comments: See Note; NOTES: [facility] [address] [place] [address] Breast Imaging Report MR#: [id number] Acct: [id number] Name: TITA LAW Rep #: [id number] : 1960 F 52 From: Barrera Galeana MD PCP: Martha Brown DO Status: REG CLI Exam# [id number] Ordering Dr: Shahla Myers MD MAMMOGRAPHY - [...] Barrera Galeana MD at 9:32 EDT Tel [phone], Service support [phone], F ax [phone] CC: Martha Brown DO; Shahla Myers MD Roofing Machine Tender: Signed 14-May-2013 Chest PA and Lateral Result: Comments: See Note; NOTES: [facility] [address] [place] [address] Radiology Report MR#: [id number] Acct: [id number] Name: TITA LAW Rep #: [id number] : 1960 F 52 From: Barrera Galeana MD PCP: Martha Brown DO Status: REG CLI Study: Chest PA and Lateral Date of Exam: 05/14/13 Exam# [id number] Ordering Dr: Martha Brown DO STUDY: X [...] M.D. at 14:47 EDT , Service support [phone], CC: Martha Brown DO Roofing Machine Tender: Signed Family History Unknown Family Member Name [...] Surface Area Calculated 1.8 m2 :15 Comments: nvfopvxyjg255/72, 60sitting 98/56 67standing 94/58, 78 Temperature 97.5 [...] Value Details :56 CBC W/Diff, Automated Comments: [facility] [address] [place], [place], [address] Absolute Lymph 1.33 {X10_3/ul} (Normal) Range: 0.83-4.51 [...] 4.2-5.4 WBC 14.0 K/mm3 (Abnormal) Range: 4.4-11.0 81-Jyj-666637:56 Comprehensive Metabolic Profil Comments: [facility] [address] [place], [address] GAP 9 (Normal) Range: 5-15 CO2 26.0 [...] Comments: Please note revised GLUCOSE reference range edymeiqni17/02/2018. 98-Llv-162993:15 URINE ARELY CULTURE-IDENTIFICATN Comments: PATIENT NOT FASTINGPERFORMED BY: [facility] VinelandQebiwg0048 [facility] [id number] Information: SRC:THAD (39813) Result 1 NG36 (Normal) Comments: No growth in 36 - 48 hours. Urine Culture,Comprehensive Final report (Normal) 18-Lop-853866:01 Urinalysis, Office (23893) UA - LEUKOCYTE ESTERASE Large (Normal) UA - NITRITE Positive (Normal) URINE UROBILINGN SPRING TIMED 2 mg/dL (Normal) UA - PROTEIN 300 mg/dL (Normal) UA - PH 7 (Normal) UA - BLOOD Hemolyzed Large (Normal) UA - SPECIFIC GRAVITY 1.020 (Normal) UA - KETONES 15 mg/dL (Abnormal) UA - BILIRUBIN Large (Normal) UA - GLUCOSE Negative (Normal) 1-Amz-814278:45 Culture, Urine Comments: [facility] [address] [place], [address] CUUR See Note (Normal) Comments: Urine CultureORGANISM [...] $ >=320 R(NF) indicates non-formulary drug at [facility]. Approval by Infectious Disease Specialist required before non-formulary drugs may be ordered and/or dispensed. 0-Nym-558643:45 Urinalysis, Complete Comments: How was Urine Obtained? CLEAN [facility] [address] [place], [address] CA OX CRYSTAL 1+ {/hpf} (Normal) MUCUS, [...] (Normal) CLARITY Cloudy (Normal) COLOR Yellow (Normal) 50-Poe-346664:49 CBC (AUTO) (52630) Comments: PATIENT NOT FASTINGPERFORMED BY: [facility] Ydsclj8137 [facility] [id number] Platelets 303 {x10E3/uL} (Normal) Range: 150-379 RDW 14.5 % (Normal) Range: 12.3-15.4 MCHC 33.9 g/dL (Normal) Range: 31.5-35.7 MCH 32.4 pg (Normal) Range: 26.6-33.0 MCV 96 fL (Normal) Range: 79-97 Hematocrit 37.5 % (Normal) Range: 34.0-46.6 Hemoglobin 12.7 g/dL (Normal) Range: 11.1-15.9 RBC 3.92 {x10E6/uL} (Normal) Range: 3.77-5.28 WBC 7.9 {x10E3/uL} (Normal) Range: 3.4-10.8 92-Xxl-428779:49 MICROALBUMIN: CREATININE RATIO Comments: PATIENT NOT FASTINGPERFORMED BY: [facility] VinelandTlngcy5204 [facility] [id number] (46409) AND (43957) Alb/Creat Ratio 4.1 {mg/g_creat} (Normal) Range: 0.0-30.0 Comments: Normal: 0.0 - 30.0 Albuminuria: 31.0 - 300.0 Clinical albuminuria: >300.0 Albumin, Urine 6.7 ug/mL (Normal) Creatinine, Urine 161.5 mg/dL (Normal) 91-Xfz-941414:49 METABOLIC PANEL, COMPREHENSIVE Comments: PATIENT NOT FASTINGPERFORMED BY: [facility] Vqgqat4342 [facility] [id number]; appt 12/05 (74690) ALT (SGPT) 14 [iU]/L (Normal) Range: 0-32 [...] 6-24 Glucose 94 mg/dL (Normal) Range: 65-99 9-Jtw-191847:22 CBC W/Diff, Automated Comments: [facility] [address] [place], [place], [address] Absolute Lymph 1.79 {X10_3/ul} (Normal) Range: 0.83-4.51 [...] 4.2-5.4 WBC 6.3 K/mm3 (Normal) Range: 4.4-11.0 0-Ffp-329638:22 Comprehensive Metabolic Profil Comments: [facility] [address] [place], [place], [address] GAP 8 (Normal) Range: 5-15 CO2 25.0 [...] Comments: Please note revised GLUCOSE reference range fcgjfxokc83/02/2018. 8-Odr-631865:22 CRP Comments: [facility] [address] [place], [place], [address] C-REACTIVE PROT < 2.90 mg/L (Normal) Range: 0.0-3.0 Comments: C-Reactive Protein (CRP) provides useful information for thediagnosis, therapy and monitoring of inflammatory processesand associated diseases. For the evaluation of Relative Riskfor Cardiovascular Dise ase, a High Sensitivity CRP (HSCRP)should be ordered. 4-Duj-008381:22 Erythrocyte Sed Rate Comments: [facility] [address] [place], [place], [address] SED RATE 3 mm/h (Normal) Range: 0-30 0-Uyo-806804:22 Hemoglobin A1c Comments: [facility] [address] [place], [address] HGB A1C 5.7 % (Normal) Range: 4.2-6.3 4-Nwi-629684:22 Lipid Profile Comments: [facility] [address] [place], [address] VLDL 21 mg/dL (Normal) [...] 200-240 mg/dL Borderline >240 mg/dL High Risk 0-Zpt-841639:22 Vitamin D,25 Hydroxy Comments: [facility] [address] [place], [address] Vitamin D 25-OH 36.0 ng/mL (Normal) Range: 29.95-100.01 Comments: Vitamin D 25(OH) Status Range Deficiency <20 ng/mL (50nmol/L) Insuffciency 20 - 30 ng/mL (50 - 75 nmol/L) Sufficiency 30 - 100 ng/mL (75 - 250 nmol/L) Toxicity >100 ng/mL (>250 nmol/L) 67-Ksc-005555:37 CBC W/Diff, Automated Comments: [facility] [address] [place], [id number] ; appt 5/2 Absolute Lymph 2.05 {X10_3/ul} [...] 4.2-5.4 WBC 5.5 K/mm3 (Normal) Range: 4.4-11.0 14-Hkx-628324:37 Comprehensive Metabolic Profil Comments: [facility] [address] [place], [place], [address] GAP 8 (Normal) Range: 5-15 CO2 24.0 [...] Comments: Please note revised GLUCOSE reference range medpqpndc07/02/2018. 06-Zcx-395578:37 Hemoglobin A1c Comments: [facility] Tcevtsdbrh8049 [facility]. [place], [place], [address] HGB A1C 5.9 % (Normal) Range: 4.2-6.3 87-Zih-374742:37 Lipid Profile Comments: [facility] Jjfcbgxmeq7696 [facility]. [place], [place], [address] VLDL 16 mg/dL (Normal) Range: 5-40 LDL [...] 200-240 mg/dL Borderline >240 mg/dL High Risk 44-Wqv-817190:06 METABOLIC PANEL, COMPREHENSIVE Comments: PATIENT NOT FASTINGPERFORMED BY: JUAN LUIS [facility] Kvvtxd0670 [facility] [id number] (57141) ALT (SGPT) 19 [iU]/L (Normal) Range: 0-32 [...] Glucose, Serum 84 mg/dL (Normal) Range: 65-99 84-Gax-372636:26 CBC W/Diff, Automated Comments: [facility] [address] [place], [address] ; patient coming in today [...] 4.2-5.4 WBC 10.1 K/mm3 (Normal) Range: 4.4-11.0 44-Mgw-157600:26 EBV Acute Prof IgG / IgM Comments: [...] - Antibody Ab sentPerformed at: - [facility] [address] [id number] Director: Sean Daniel PhD, Phone: [phone] EB-NAg RcS75750 > 600.0 U/mL (Abnormal) Range: 0.0-17.9 Comments: Negative <18.0 Equivocal 18.0 - 21.9 Positive >21.9 EB-VCA DvV40152 226.0 U/mL (Abnormal) Range: 0.0-17.9 Comments: Negative <18.0 Equivocal 18.0 - 21.9 Positive >21.9 EB-EA IgG 14252 49.1 U/mL (Abnormal) Range: 0.0-8.9 Comments: Hepatitis A, Hepatitis C and HIV antibodies may cross-reactwith this assay. Negative < 9.0 Equivocal 9.0 - 10.9 Positive >10.9 EB-VCA JoY22100 < 36.0 U/mL (Normal) Range: 0.0-35.9 Comments: Negative <36.0 Equivocal 36.0 - 43.9 Positive >43.9 45-Mrq-830706:37 Basic Metabolic Profile (BMP) Comments: [facility] [address] [place], [place], [address] GAP 8 (Normal) Range: 5-15 CO2 23.0 [...] A.D.A. criteria.Please note revised GLUCOSE reference range hnqvtnwfa58/02/2018. 23-Bry-423254:37 CBC W/Diff, Automated Comments: [facility] [address] [place], [place], [address] Absolute Lymph 2.00 {X10_3/ul} (Normal) Range: 0.83-4.51 [...] 4.2-5.4 WBC 8.8 K/mm3 (Normal) Range: 4.4-11.0 80-Das-668855:30 CBC With Differential/Platelet Comments: PERFORMED BY: [facility] Ztqeql7631 [facility] [id number] Information: MDVIP PATIENT - NURSE Immature Grans [...] 3.77-5.28 WBC 6.8 {x10E3/uL} (Normal) Range: 3.4-10.8 20-Rdo-864781:30 Comp. Metabolic Panel (14) Comments: PERFORMED BY: [facility]6370 [facility] [id number]; can review at upcoming appt ALT (SGPT) [...] 98 mg/dL (Normal) Range: 65-99 :21 TSH (23472) Comments: PATIENT NOT FASTINGPERFORMED BY: [facility]6370 [facility] [id number] TSH 2.830 {uIU/mL} (Normal) Range: 0.450-4.500 :21 T3, FREE (TRIDOTHYRONINE) (61622) Comments: PATIENT NOT FASTINGPERFORMED BY: [facility]6370 [facility] [id number] Triiodothyronine,Free,Serum 2.6 pg/mL (Normal) Range: 2.0-4.4 :21 T4, FREE (THYROXINE) (96837) Comments: PATIENT NOT FASTINGPERFORMED BY: [facility]6370 [facility] [id number] T4,Free(Direct) 1.12 ng/dL (Normal) Range: 0.82-1.77 :32 CBC W/Diff, Automated Comments: [facility] [address] [place], [place], [address] Absolute Lymph 3.84 {X10_3/ul} (Normal) Range: 0.83-4.51 [...] 4.2-5.4 WBC 7.6 K/mm3 (Normal) Range: 4.4-11.0 93-Bsb-77607:32 Comprehensive Metabolic Profil Comments: [facility] [address] [place], [place], [address] ; non-emergent till next weeks apt GAP [...] (Normal) Range: 70-110 :32 Hemoglobin A1c Comments: [facility] Jwfcreyojo7212 [facility]. [place], [place], [address] HGB A1C 6.2 % (Normal) Range: 4.2-6.3 :32 Lipid Profile Comments: [facility] Wtmfuhrfbm9157 [facility]. [place], [place], [address] VLDL 19 mg/dL (Normal) Range: 5-40 LDL [...] High Risk :36 CBC W/Diff, Automated Comments: [facility] [address] [place], [place], [address] Absolute Lymph 2.01 {X10_3/ul} (Normal) Range: 0.83-4.51 [...] 4.2-5.4 WBC 8.0 K/mm3 (Normal) Range: 4.4-11.0 36-Yey-57339:36 Comprehensive Metabolic Profil Comments: [facility] [address] [place], [address] GAP 10 (Normal) Range: 5-15 CO2 25.0 [...] mg/dL (Normal) Range: 70-110 :36 CRP Comments: [address] [place], [place], [address] C-REACTIVE PROT < 2.90 mg/L (Normal) Range: 0.0-3.0 Comments: C-Reactive Protein (CRP) provides useful information for thediagnosis, therapy and monitoring of inflammatory processesand associated diseases. For the evaluation of Relative Riskfor Cardiovascular Dise ase, a High Sensitivity CRP (HSCRP)should be ordered. :36 Culture, Urine Comments: [facility] [address] [place], [place], [address] CUUR See Note (Normal) Comments: Urine CultureCOLONY COUNT 400 CFU/ML Below infection level. ORGANISM 1: GNR Poss Pseudomonas spColony Count <1000 :36 Erythrocyte Sed Rate Comments: [facility] [address] [place], [place], [address] SED RATE 5 mm/h (Normal) Range: 0-30 :36 Free T3 Comments: [facility] [address] [place], [address] FREE T3 2.4 pg/mL (Normal) Range: 2.18-3.98 :36 Rheumatoid Factor Comments: [place] [address] [place], [address] RHEUMATOID FAC < 10.0 {IU/mL} (Normal) :36 T4 Free Direct Comments: [place] [address] [place], [address] T4 FREE DIRECT 1.09 ng/dL (Normal) Range: 0.76-1.46 :36 Thyroid Stim Hormone (TSH) Comments: [place] [address] [place], [address] TSH 0.08 {uIU/mL} (Abnormal) Range: 0.358-3.74 :36 Uric Acid Comments: [facility] [address], [address] URIC 3.6 mg/dL (Normal) Range: 2.6-6.0 Comments: The drugs N-Acetylcysteine and Metamizole may falsely deressthis assay. 39-Pmd-61068:30 URINE ARELY CULTURE-SPRING COL Comments: PERFORMED BY: [facility] VinelandBiskmq4158 [facility] [id number] Information: SRC:UR COUNT (38203) Result 1 MUG (Normal) Comments: Mixed urogenital flora1,000 Colonies/mL Urine Culture,Comprehensive Final report (Normal) 12-Qbr-246590:20 Urinalysis, Office (55877) UA - LEUKOCYTE ESTERASE Negative (Normal) UA - NITRITE Negative (Normal) URINE UROBILINGN SPRING TIMED Normal mg/dL (Normal) UA - PROTEIN Negative mg/dL (Normal) UA - PH 7 (Normal) UA - BLOOD Negative (Normal) UA - SPECIFIC GRAVITY 1.015 (Normal) UA - KETONES Negative mg/dL (Normal) UA - BILIRUBIN Negative (Normal) UA - GLUCOSE Negative (Normal) [id number]:52 ARELY CULTURE-OTHER (85389) Comments: PATIENT NOT FASTINGPERFORMED BY: [place] [id number] [facility] [id number] Information: THROAT SRC:TH Result 1 RRF (Normal) Comments: Routine respiratory kaylene Upper Respiratory Culture Final report (Normal) [id number] Rapid Strep Test, Office (72815) Rapid Strep Test, Negative (Normal) Office 71-Vnr-095131:2 Magnesium, Serum 2.0 mg/dL (Normal) Comments: PATIENT NOT FASTINGPERFORMED BY: [address] [id number] Information: SRC:UC 1 Range: 1.6-2.3 27-Afz-469969:21 Microscopic Examination Comments: PATIENT NOT FASTINGPERFORMED BY: Paver Downes AssociatesJoshua Ville 2904270 [facility] [id number] BY: [employer] [id number] Bacteria None seen (Normal) Epithelial Cells (non None seen {/hpf} Range: 0 - 10 renal) (Normal) RBC 0-2 {/hpf} Range: 0 - 2 (Normal) WBC 0-5 {/hpf} Range: 0 - 5 (Normal) Sodium, Urine <20 mmol/L Comments: PATIENT NOT FASTINGPERFORMED BY: [facility] [employer] [id number] BY: [employer] [id number] 4:21 (Normal) Written Authorization WAR (Normal) Comments: PATIENT NOT FASTINGPERFORMED BY: [place] [id number] [facility] [id number] 4:21 Comments: Written Authorization Received.Authorization received from YURIY VERNON LPN [id number] by Tg Stewart 24-Vsi-396569:21 URINE ARELY CULTURE-IDENTIFICATN Comments: PATIENT NOT FASTINGPERFORMED BY: Logim SolutionsKelly Ville 2257970 [facility] [id number] BY: [address] [id number] (16991) Result 1 NG36 (Normal) Comments: No growth in 36 - 48 hours. Urine Culture,Comprehensive Final report (Normal) 21-Sbh-262021:21 URINALYSIS, W/ MICRO Comments: PATIENT NOT FASTINGPERFORMED BY: [employer] Kujvlk1989 [facility] [id number] BY: [address] [id number] Information: SRC:THAD (20112) Microscopic Examination See below: (Normal) Comments: Microscopic was indicated and was performed. Microscopic Examination MICRON (Normal) Comments: Microscopic follows if indicated. Nitrite, Urine Negative (Normal) Urobilinogen,Semi-Qn 0.2 mg/dL (Normal) Range: 0.2-1.0 Bilirubin Negative (Normal) Occult Blood Negative (Normal) Ketones Negative (Normal) Glucose Negative (Normal) Protein Negative (Normal) WBC Esterase Negative (Normal) Appearance Clear (Normal) Urine-Color Yellow (Normal) pH 7.0 (Normal) Range: 5.0-7.5 Specific Lorraine 1.007 (Normal) Range: 1.005-1.030 89-Cdk-805836:21 OSMOLALITY URINE (16624) Comments: PATIENT NOT FASTINGPERFORMED BY: [employer] Jcxymh4446 [facility] [id number] BY: [address] [id number] Osmolality, Urine 98 {mOsmol/kg} (Normal) Comments: 24 hr : 300 - 900 Random: 50 - 1400 After 12hr fluid restriction: >850 99-Tkl-164556:21 OSMOLALITY BLOOD (16044) Comments: PATIENT NOT FASTINGPERFORMED BY: Log[employer] SolutionsKelly V[place] 2257970 [facility] [id number] BY: [address] [id number] Osmolality 265 {mOsmol/kg} (Abnormal) Range: 275-295 41-Hmy-692307:21 SODIUM SERUM (14162) Comments: PATIENT NOT FASTINGPERFORMED BY: CB [facility] Wpghka9378 [facility] [id number] BY: BN [facility] Bawjwlpvmr2485 [facility] [id number] Sodium, Serum 132 mmol/L (Abnormal) Range: 134-144 46-Uwi-263550:15 Comprehensive Metabolic Profil Comments: [facility] [address] [place], [address] GAP 9 (Normal) Range: 5-15 CO2 25.0 [...] 7-18 GLU 86 mg/dL (Normal) Range: 70-110 17-Qho-124303:15 Free T3 Comments: [facility] [address] [place], [place], [address] FREE T3 2.3 pg/mL (Normal) Range: 2.18-3.98 30-Cmy-687370:15 Phosphorus Comments: [facility] [address] [place], [address] PHOS 2.9 mg/dL (Normal) Range: 2.5-4.9 87-Syr-869798:15 PTH,INTACT Comments: [facility] [address] [place], [place], [address] PTH,Intact 35 pg/mL (Normal) Range: 14-72 43-Ntq-610290:15 T4 Free Direct Comments: [facility] [address] [place], [address] T4 FREE DIRECT 1.06 ng/dL (Normal) Range: 0.76-1.46 28-Fxz-018508:15 Thyroid Stim Hormone (TSH) Comments: [facility] [address]umpsorxx[address] [place], [address] TSH 5.47 {uIU/mL} (Abnormal) Range: 0.358-3.74 54-Agh-141214:15 Vitamin D,25 Hydroxy Comments: [facility] [address]iqf[address] [place], [address] Vitamin D 25-OH 38.0 ng/mL (Normal) Comments: Vitamin D 25(OH) Status Range Deficiency <20 ng/mL (50nmol/L) Insuffciency 20 - 30 ng/mL (50 - 75 nmol/L) Sufficiency 30 - 100 ng/mL (75 - 250 nmol/L) Toxicity >100 ng/mL (>250 nmol/L) 6-Mxo-098165:31 Comprehensive Metabolic Profil Comments: [facility] [address] [place], [place], [address] GAP 11 (Normal) Range: 5-15 CO2 24.0 [...] 7-18 GLU 96 mg/dL (Normal) Range: 70-110 1-Sad-271422:31 Free T3 Comments: [facility] [address] [place], [place], [address] FREE T3 2.3 pg/mL (Normal) Range: 2.18-3.98 9-Uif-033971:31 Hemoglobin A1c Comments: [facility] [address] [place], [address] HGB A1C 5.7 % (Normal) Range: 4.2-6.3 3-Pkr-037878:31 Lipid Profile Comments: [facility] R[address] [place], [place], [address] VLDL 19 mg/dL (Normal) Range: 5-40 LDL [...] High Risk :31 Microalb:Creat Ratio,Random UR Comments: [facility] [address] [place], [place], [address] MALB:CREAT 5.4 {mg/g_CRE} (Normal) MICROALBUMIN,UR 6.7 mg/L (Normal) UR CREAT 124.00 mg/dL (Normal) 9-Drq-731151:31 T4 Free Direct Comments: [facility] [address] [place], [place], [address] T4 FREE DIRECT 0.70 ng/dL (Abnormal) Range: 0.76-1.46 9-Oip-819608:31 Thyroid Stim Hormone (TSH) Comments: [facility] [address] [place], [place], [address] TSH 4.87 {uIU/mL} (Abnormal) Range: 0.358-3.74 9-Ipl-025479:49 [facility] English Language Learner Teacher AB, Blocking Comments: [facility] (refer to report for specific site)refer to report for address and phone number [facility] REC 75697 19 % (Normal) Range: 0-25 Comments: Negative: 0 - 25 Borderline: 26 - 30 Positive: >30Results for this test are for research purposesonly by the assay's manukarmanos cancer centerkyle. The performancecharacteristics of this product have not beenestablished. Results should not be used as adiagnostic procedure without confirmation of thediagnosis by another medically establishe ddiagnostic product or procedure.Performed at: - LabJacob [facility] 074797 [place], [place] [id number] Director: Eusebio Live MD, Phone: [phone] 6-Dci-226200:49 Lyme Antibodies,W Blot Comments: [facility] (refer to [...] positivity are those recommended byCDC/ASTPHLD. p23=Osp C, p41=qoxciveyaAmuy:Sera from individuals with the following may cross [...] Ab Absent (Normal) P93 Ab Absent (Normal) 55-Bmx-66079:39 Acid Fast Bact Cult/Sm Comments: [facility] [address] [place], [address] AFBCS See Note Comments: AFB Smear/Fluor TESTING PERFORMED AT [facility]. ORIGINAL REPORT ON FILE IN LAB CONTAINS ADDITIONAL TEST SITE INFORMATION. (Normal) Smear, Acid Fast NO ACID-FAST BACILLI OBSERVED ON SMEAR. AFB Cult [facility]ING [facility]FOR[facility]. ORIGIN AL REPORT ON FILE IN LAB CONTAINS ADDITIONAL TEST SITE INFORMATION. Culture, Acid Fast NO ACID-FAST BACILLI ISOLATED AFTER 6 WEEKS. :39 Body Fluid Cell Count+Diff Comments: Specimen Source: [facility] [address]edy[address] [place], [address] PATH COMM/BF May follow (Normal) BF PMN [...] Body Fluid / CSF Comments: Specimen Source: [facility] [address]zbv[address] [place], [place], [address] CYTOLOGY,BF/CSF SEE PATHOLOGY REPORT Comments: Specimen submitted to Anatomical Pathology Department fortesting. (Normal) :39 CYTOSPIN ON FLUID See Note (Normal) Comments: [facility] [address] [place] [place], [address] Comments: Patient: TITA LAW : 1960 (55/F) Acct Num: [id number] Phys: Momo BRADY, Pepper Unit Num: [id number] Loc: RAD Specimen: [id number] Received: 03/15/16 - 1239 Spec Type: CYSPIN FL TISSUES TISSUES: CYTOLOGY GROSS Received is 3 ml of clear, colorless fluid labeled with the patient's name and and designated per the requisition as CSF. Submitted f or cytology preparation. 03/15/16 TC:4 CPT: 45384 CYTOLOGY STUDY Slides are reviewed. DIAGNOSIS CYTOLOGY Cerebrospinal fluid (cytospins): The specimen is acellular. SJ:tiffanie 7 HEADER OPERATION: Lumbar puncture PRE-OP DIAGNOSIS: Rule out MS TISSUE SUBMITTED: Cerebrospinal fluid Signed Christian Holt 03/16/16 <signature on file> :39 Glucose Spinal Fluid Comments: Comments: PROTEIN ELCTRO-CSF LC#[id number] Source? [facility] [address]fr[address] [place], [place], [address] GLU SPINAL FLD 57 mg/dL (Normal) Range: 40-75 65-Bty-62796:39 Miscellaneous Lab Procedure Comments: Comments: PROTEIN ELCTRO- CSF LC#[id number](s) Ordered: PROTEIN ELCTRO-CSF LC#[id number] [facility] [address]wbh[address] [place], [place], [address] MISC Comments: TEST RESULT UNITS REFERENCE INTERVALProtein Electrophoresis, CSFProtein, Total, CSF 36.7 mg/dL 0.0 - 44.0Pre- Albumin (CSF) 2.6 % 2.2 - 7.1Albumin LAB (Normal) (CSF) 68.5 % 56.8 - 76.3Ffqso-9-Prcjjccy CSF 3.9 % 1.1 - 6.3Bjjhr-0-Mhykhlno CSF 4.6 % 3.0 - 12.6Beta Globulin (CSF) 15.0 % 7 TEST .3 - 17.9Gamma Globulin (CSF) 5.5 % 3.0 - 13.0Protein electrophoresis scan will follow via computer, mail,or white sugar supervisor delivery.M-Logan Not Observed % Not Observed__ TESTING PERFORMED AT [facility]. ORIGINAL REPORT ON FILE IN LAB CONTAINS ADDITIONAL TEST SITE INFORMATION. :39 Myelin Basic Protein, MBP Comments: [facility] (refer to report for specific site)refer to report for address and phone number MBP 233017 1.8 ng/mL (Abnormal) Range: 0.0-1.2 Comments: Results for this test are for research purposes only by theassay's salesperson neckties. The performance characteristics ofthis product have not been established. Results should notbe used as a diagnostic pro cedure without confirmation ofthe diagnosis by another medically established diagnosticproduct or procedure. :39 Protein Spinal Fluid Comments: Comments: PROTEIN ELCTRO-CSF #[id number] [facility]? [facility] [address]ysxj[address] [place], [address] PROTEIN CSF 38.0 mg/dL (Normal) Range: 15.0-45.0 [...] CSF IgG 1.9 mg/dL (Normal) Range: 0.0-8.6 78-Wvv-33101:04 Oligoclonal Bands Panel Comments: [facility] (refer to [...] using IsoelectricFocusing (IEF) and immunoblotting methodology.Performed at: [address] [id number] Director: Sean Daniel PhD, Phone: [phone] OLIG BAND REF LAB (Normal) :04 Protein Electroph, S Comments: [facility] (refer to report for specific site)refer to report for address and phone number NOTE: Comment (Normal) Comments: The SPE pattern appears essentially unremarkable. Evidenceof monoclonal protein is not apparent. INTERPRETATION Comment (Normal) Comments: Protein electrophoresis scan will follow via computer,mail, or white sugar supervisor delivery. A/G RATIO 1.4 (Normal) Range: 0.7-1.7 GLOBULIN, TOTAL 2.8 g/dL (Normal) Range: 2.2-3.9 M-SPIKE g/dL (Normal) Comments: Not Observed GAMMA GLOBULIN 0.9 g/dL (Normal) Range: 0.4-1.8 BETA GLOBULIN 0.9 g/dL (Normal) Range: 0.7-1.3 ALPHA-2 GLOBUL 0.7 g/dL (Normal) Range: 0.4-1.0 ALPHA-1 GLOBUL 0.2 g/dL (Normal) Range: 0.0-0.4 ALBUMIN 3.9 g/dL (Normal) Range: 2.9-4.4 PROTEIN,TOTAL 6.7 g/dL (Normal) Range: 6.0-8.5 8-Dzh-519652:15 CBC W/Diff, Automated Comments: DR VILLAFANA ORDERED CBCD/CMPDR FAST ORDERED BMP/FT3/FT4/TSHDR TRES ORDERED CBCD/CMPDR FAST ORDERED BMP/FT3/FT4/[facility] [address]othx[address] [place], [place], [address] Absolute Lymph 1.41 {X10_3/ul} (Normal) Range: 0.83-4.51 [...] 4.2-5.4 WBC 8.2 K/mm3 (Normal) Range: 4.4-11.0 2-Miu-210115:15 Comprehensive Metabolic Profil Comments: DR VILLAFANA ORDERED CBCD/CMPDR FAST ORDERED BMP/FT3/FT4/[facility] Ar[address]nglhbc58[address] [place], [place], [address] GAP 9 (Normal) Range: 5-15 CO2 26.0 [...] 7-18 GLU 92 mg/dL (Normal) Range: 70-110 7-Viu-972740:15 Free T3 Comments: DR VILLAFANA ORDERED CBCD/CMPDR FAST ORDERED BMP/FT3/FT4/[facility] [address] [place], [place], [address] FREE T3 2.2 pg/mL (Normal) Range: 2.18-3.98 6-Wqf-212643:15 T4 Free Direct Comments: DR VILLAFANA ORDERED CBCD/CMPDR FAST ORDERED BMP/FT3/FT4/[facility] [address]bxd[address] [place], [address] T4 FREE DIRECT 0.96 ng/dL (Normal) Range: 0.76-1.46 3-Gde-568507:15 Thyroid Stim Hormone (TSH) Comments: DR VILLAFANA ORDERED CBCD/CMPDR FAST ORDERED BMP/FT3/FT4/[facility] D[address]aola[address] [place], [address] TSH 0.13 {uIU/mL} (Abnormal) Range: 0.358-3.74 69-Ddv-830078:21 Metabolic Panel, Basic Comments: PATIENT NOT FASTINGPERFORMED BY: [facility] VinelandQheuth0078 [facility] [id number] (06440) Calcium, Serum 9.5 mg/dL (Normal) Range: 8.7-10.2 [...] Glucose, Serum 85 mg/dL (Normal) Range: 65-99 13-Wom-985583:21 TSH (12392) Comments: PATIENT NOT FASTINGPERFORMED BY: [facility]6370 [facility] [id number] TSH 0.031 {uIU/mL} (Abnormal) Range: 0.450-4.500 :21 T3, FREE (TRIDOTHYRONINE) (98152) Comments: PATIENT NOT FASTINGPERFORMED BY: [facility]6370 [facility] [id number] Triiodothyronine,Free,Serum 3.3 pg/mL (Normal) Range: 2.0-4.4 :21 T4, FREE (THYROXINE) (60003) Comments: PATIENT NOT FASTINGPERFORMED BY: [facility]6370 [facility] [id number] T4,Free(Direct) 1.52 ng/dL (Normal) Range: 0.82-1.77 :56 CBC W/Diff, Automated Comments: [facility] [address] [place], [address] Absolute Lymph 1.43 {X10_3/ul} (Normal) Range: 0.83-4.51 [...] 4.2-5.4 WBC 6.3 K/mm3 (Normal) Range: 4.4-11.0 04-Sci-15687:56 Comprehensive Metabolic Profil Comments: [facility] [address] [place], [place], [address] GAP 9 (Normal) Range: 5-15 CO2 26.0 [...] (Normal) Range: 70-110 :56 Hemoglobin A1c Comments: [facility] [address] [place], [address] HGB A1C 5.4 % (Normal) Range: 4.2-6.3 :56 Microalb:Creat Ratio,Random UR Comments: [facility] Sfkqkcfidp8667 [facility] [place], [address] MALB:CREAT Test not performed {mg/g_CRE} [...] the [place] Food and Drug Administration.Performed at: [address] [id number] Director: Eusebio Live MD, Phone: [phone] INS RES/DIAB RK . (Normal) LDL SIZE [...] mg/dL (Abnormal) Range: 100-199 LIPIDS . (Normal) 10-Pak-646310:26 Microscopic Examination Comments: PATIENT NOT FASTINGPERFORMED BY: [facility]6370 [facility] [id number] Bacteria Few (Normal) Epithelial Cells (non renal) 0-10 {/hpf} (Normal) Range: 0 - 10 RBC 0-2 {/hpf} (Normal) Range: 0 - 2 WBC 0-5 {/hpf} (Normal) Range: 0 - 5 :26 METABOLIC PANEL, COMPREHENSIVE Comments: PATIENT NOT FASTINGPERFORMED BY: [employer] [facility] [id number] (00453) ALT (SGPT) 23 [iU]/L (Normal) Range: 0-32 [...] Glucose, Serum 84 mg/dL (Normal) Range: 65-99 82-Tmn-808882:26 URINE ARELY CULTURE-IDENTIFICATN Comments: PATIENT NOT FASTINGPERFORMED BY: [employer]6370 [facility] [id number] (49178) Result 1 NG36 (Normal) Comments: No growth in 36 - 48 hours. Urine Culture,Comprehensive Final report (Normal) 46-Ejk-913419:26 CBC W/AUTO DIFF WBC Comments: PATIENT NOT FASTINGPERFORMED BY: [employer] Qqrtzs7794 [facility] [id number] Information: SRC:UC (15244) Immature Grans (Abs) 0.0 {x10E3/uL} (Normal) Range: [...] (Normal) Range: 3.4-10.8 :26 URINALYSIS, W/ MICRO (86110) Comments: PATIENT NOT FASTINGPERFORMED BY: [facility] SolutionsIn[facility] VinelandJwkhau0710 [facility] [id number] Microscopic Examination See below: (Normal) Comments: Microscopic was indicated and was performed. Microscopic Examination MICRON (Normal) Comments: Microscopic follows if indicated. Nitrite, Urine Negative (Normal) Urobilinogen,Semi-Qn 0.2 mg/dL (Normal) Range: 0.2-1.0 Bilirubin Negative (Normal) Occult Blood Negative (Normal) Ketones Negative (Normal) Glucose Negative (Normal) Protein Negative (Normal) WBC Esterase Negative (Normal) Appearance Clear (Normal) Urine-Color Yellow (Normal) pH 7.5 (Normal) Range: 5.0-7.5 Specific Lorraine 1.005 (Normal) Range: 1.005-1.030 :53 Partial Thromboplast Time Comments: [facility] [address] [place], [address] PTT 34.1 s (Normal) Range: 24.1-36.2 :53 Prothrombin Time w/INR Comments: [address] [place], [place], [address] INR 1.1 (Normal) PROTIME 14.1 s (Normal) Range: 11.7-14.9 :43 CBC W/Diff, Automated Comments: [address] [place], [place], [address] Absolute Lymph 1.00 {X10_3/ul} (Normal) Range: 0.83-4.51 [...] 4.2-5.4 WBC 16.5 K/mm3 (Abnormal) Range: 4.4-11.0 62-Mfp-300707:43 Comprehensive Metabolic Profil Comments: [facility] [address]ves[address]az[address] [place], [place], [address] GAP 11 (Normal) Range: 5-15 CO2 24.0 [...] 7-18 GLU 82 mg/dL (Normal) Range: 70-110 13-Ppc-055520:43 Lactic Acid Comments: [facility] [address]eqxi[address] [place], [address] LACTIC ACID 1.5 mmol/L (Normal) Range: 0.4-2.0 6-Kye-553937:06 Metabolic Panel, Basic (83931) Comments: PATIENT NOT FASTINGPERFORMED BY: [employer] [place] [id number] Calcium, Serum 9.9 mg/dL (Normal) Range: 8.7-10.2 [...] Glucose, Serum 82 mg/dL (Normal) Range: 65-99 1-Efg-048763:06 PHOSPHORUS (22548) Comments: PATIENT NOT FASTINGPERFORMED BY: [employer] [employer] [place] [id number] Phosphorus, Serum 3.8 mg/dL (Normal) Range: 2.5-4.5 6-Tmm-879289:06 PARATHORMONE (64611) Comments: PATIENT NOT FASTINGPERFORMED BY: [employer] [employer] [place] [id number] PTH, Intact 30 pg/mL (Normal) Range: 15-65 7-Xau-954818:06 SPE (06213) Comments: PATIENT NOT FASTINGPERFORMED BY: Paver Downes AssociatesJoshua Ville 2904270 [facility] [id number] Information: [id number] Please note: SPRCS (Normal) Comments: Protein electrophoresis scan will follow via computer, mail, orcourier delivery. A/G Ratio 1.4 (Normal) Range: 0.7-1.7 Globulin, Total 3.1 g/dL (Normal) Range: 2.2-3.9 M-Logan Not Observed g/dL (Normal) Gamma Globulin 1.1 g/dL (Normal) Range: 0.4-1.8 Beta Globulin 1.0 g/dL (Normal) Range: 0.7-1.3 Lslnh-6-Gwfwbjet 0.8 g/dL (Normal) Range: 0.4-1.0 Fekjs-1-Wzkiiekh 0.3 g/dL (Normal) Range: 0.0-0.4 Albumin 4.4 g/dL (Normal) Range: 2.9-4.4 Protein, Total, Serum 7.5 g/dL (Normal) Range: 6.0-8.5 3-Jzr-678495:06 UP (82261) Comments: PATIENT NOT FASTINGPERFORMED BY: Paver Downes AssociatesTr[facility]6370 [facility] [id number] Please note: SPRCS (Normal) Comments: Protein electrophoresis scan will follow via computer, mail, orcourier delivery. M-Logan, % Not Observed % (Normal) Gamma Globulin, U 43.5 % (Normal) Beta Globulin, U 33.9 % (Normal) Sfbjr-0-Gioszkab, U 9.6 % (Normal) Vnskw-9-Hukobplp, U 0.8 % (Normal) Albumin, U 12.1 % (Normal) Protein,Total,Urine <4.0 mg/dL (Normal) Comments: Verified by repeat analysis 8-Zbi-117839:23 URINE CALCIUM SPRING TIMED Comments: PATIENT NOT FASTINGPERFORMED BY: [place] 8985270 [facility] [id number] Information: [id number] 24 Hour (65028) Calcium, Urine 24hr 133.5 {mg/24_hr} (Normal) Range: 100.0-300.0 Calcium, Urine 3.0 mg/dL (Normal) :08 METABOLIC PANEL, Comments: PATIENT NOT FASTINGPERFORMED BY: JUAN LUIS [facility] Kkdecx7[address] [place] [id number] Information: [id number] COMPREHENSIVE (50785) ALT (SGPT) 15 [iU]/L (Normal) Range: 0-32 [...] mg/dL (Normal) Range: 65-99 :34 Urinalysis, Office (10032) UA - LEUKOCYTE ESTERASE Negative (Normal) UA [...] CULTURE (SPRING Comments: PATIENT NOT FASTINGPERFORMED BY: JUAN LUIS [facility] Alicab8401 [facility] [id number] Information: SRC:[facility] [id number] COL COUNT) (42218) Result 1 NG36 (Normal) Comments: No growth in 36 - 48 hours. Urine Culture,Comprehensive Final report (Normal) 76-Ote-888262:00 CBC W/Diff, Automated Comments: [facility] [address] [place], [place], [address] Absolute Lymph 1.49 {X10_3/ul} (Normal) Range: 0.83-4.51 [...] 4.2-5.4 WBC 6.2 K/mm3 (Normal) Range: 4.4-11.0 60-Jwu-381722:00 Comprehensive Metabolic Profil Comments: [facility] F[address]gr[address] [place], [place], [address] GAP 5 (Normal) Range: 5-15 CO2 28.0 [...] 7-18 GLU 93 mg/dL (Normal) Range: 70-110 40-Ppv-124442:00 Free T3 Comments: [facility] [address] [place], [place], [address] FREE T3 2.9 pg/mL (Normal) Range: 2.18-3.98 65-Iso-520504:00 T4 Free Direct Comments: [facility] [address] [place], [address] T4 FREE DIRECT 1.07 ng/dL (Normal) Range: 0.76-1.46 36-Brg-837574:00 Thyroid Stim Hormone (TSH) Comments: [facility] [address] [place], [address] TSH 0.16 {uIU/mL} (Abnormal) Range: 0.358-3.74 :38 HGB A1C (46250) Comments: PATIENT NOT FASTINGPERFORMED BY: [address] [id number] Information: [id number] Hemoglobin A1c 5.7 % (Abnormal) Range: 4.8-5.6 Comments: . Pre-diabetes: 5.7 - 6.4 Diabetes: >6.4 Glycemic control for adults with diabetes: <7.0 David Arce BMP8 SPRCS (Normal) Comments: A courtesy copy of this report has been sent [facility] [employer].PATIENT WAS FASTINGPERFORMED BY: [address] [id number] :51 Default Comments: A hand-written panel/profile was received from your office. Inaccordance with the [facility] Ambiguous Test Code Policy dated August2002, we have completed your order by using the closest currentlyor formerl y recognized AMA panel. We have assigned Basic MetabolicPanel (8), Test Code #628190 to this request. If this is not thetesting you wished to receive on this specimen, please contact [facility] Client Inquiry/Technical Services Department to clarify thetest order. We appreciate your business. David Arce LP Default SPRCS (Normal) Comments: A courtesy copy of this report has been sent [facility] [employer].PATIENT WAS FASTINGPERFORMED BY: [address] [id number] :51 Comments: A hand-written panel/profile was received from your office. Inaccordance with the [facility] Ambiguous Test Code Policy dated August2002, we have completed your order by using the closest currentlyor formerl y recognized AMA panel. We have assigned Lipid Panel,Test Code #429899 to this request. If this is not the testing youwished to receive on this specimen, please contact the [facility] In[facility]/Techni alberto Services Department to clarify the testorder. We appreciate your business. 12-Olk-067720:51 CBC With Differential/Platelet Comments: A courtesy copy of this report has been sent to[facility].PATIENT WAS FASTINGPERFORMED BY: JUAN LUIS [facility] Mxcata3103 [facility] [id number] Immature Grans (Abs) 0.0 {x10E3/uL} (Normal) Range: [...] 3.77-5.28 WBC 4.8 {x10E3/uL} (Normal) Range: 3.4-10.8 99-Mne-295261:51 Comp. Metabolic Panel (14) Comments: A courtesy copy of this report has been sent [facility].PATIENT WAS FASTINGPERFORMED BY: [employer] Oqkkqh2062 [facility] [id number] ALT (SGPT) 14 [iU]/L (Normal) Range: 0-32 [...] Glucose, Serum 101 mg/dL (Abnormal) Range: 65-99 73-Eek-625093:51 Lipid Panel Comments: A courtesy copy of this report has been sent [facility].PATIENT WAS FASTINGPERFORMED BY: [facility] SolutionsInspira Medical Center VinelandGsolvj8926 [facility] [id number]; non-emergent till apt LDL Cholesterol Calc 120 [...] [facility].PATIENT WAS FASTINGPERFORMED BY: Log[facility] SolutionsInspira Medical Center VinelandScgtml1398 [facility] [id number] 0:51 Range: 30.0-100.0 Comments: Vitamin D deficiency has been defined by the [place] of[employer]icine and an Endocrine Society practice guideline as alevel of serum 25-OH vitamin D less than 20 ng/mL (1,2).The Endocrine Society went on to further define vitamin Dinsufficiency as a level between 21 and 29 ng/mL (2).1. IOM ([place] of Medicine). 2010. Dietary reference intakes for calcium and D. [place]: The National Academies Press.2. Mateusz MF, Mary NC, Enma KENDALL, et al. Evaluation, treatment, and prevention of vitamin D deficiency: an Endocrine Society clinical practice guideline. JCEM. 2010; 96(7):1911-30. 36-Eqi-304127:28 Sputum Culture (15949) Comments: PATIENT NOT FASTINGPERFORMED BY: Pa[facility] Downes AssociatesTr[facility]6370 [facility] [id number] Information: [id number] Result 1 STREPN (Abnormal) Comments: Streptococcus pneumoniaeHeavy [...] S Lower Respiratory Final report Culture (Abnormal) 64-Qqq-752806:49 Free T3 Comments: Has Patient had X-rays with Contrast this admission? NIs Patient on Heparin? [facility] Yjxdtlfqvg7129 [place], [place], [id number] FREE T3 1.9 pg/mL (Abnormal) Range: 2.18-3.98 20-Nqj-752749:49 T4 Free Direct Comments: Has Patient had X-rays with Contrast this admission? NIs Patient on Heparin? [facility] Bwvvlwuzih0538 [place], [address] T4 FREE DIRECT 0.84 ng/dL (Normal) Range: 0.76-1.46 71-Hwi-238768:49 Thyroid Stim Hormone (TSH) Comments: Has Patient had X-rays with Contrast this admission? NIs Patient on Heparin? [facility] [address]ts[address] [place], [address] TSH 0.04 {uIU/mL} (Abnormal) Range: 0.358-3.74 :43 CBC W/Diff, Automated Comments: Test performed at:[facility] Krobrcabuc364[address] [place] [address] Absolute Lymph 2.39 {X10_3/ul} (Normal) [...] :43 Comprehensive Metabolic Profil Comments: Test performed at:[facility] Ggnkumxlmq25[address] [place] [address] GAP 7 (Normal) Range: 5-15 [...] 7-18 GLU 92 mg/dL (Normal) Range: 70-110 67-Iqj-90194:34 Comprehensive Metabolic Profil Comments: ORDERED LIPID,CMPDR.SNEHA ORDERED TSH,HARLEEN,DHEATest performed at:[facility] Uvzfyvgjxd[address] [place], [place] [address] GAP 11 (Normal) Range: 5-15 CO2 25.0 [...] Comments: Please note revised CREATININE reference range fdkxuuzcw84/22/2015. BUN 6 mg/dL (Abnormal) Range: 7-18 GLU 97 mg/dL (Normal) Range: 70-110 81-Qpn-64013:34 DHEA Sulfate Comments: Has Patient had Radioactive Injection for X-ray?: NTest performed at:[facility] Nnzyjpvetb6344 [place] [address] DHEA SULF 4020 26.8 ug/dL (Abnormal) Range: 41.2-243.7 Comments: Performed at: - [facility] [id number] Director: Sean Daniel PhD, Phone: [phone] 14-Xnw-34325:34 Lipid Profile Comments: ORDERED LIPID,CMPDRSANDHYA ORDERED TSH,HARLEEN,DHEATest performed at:[facility] Rlbptqmroe4811 [place] [address] VLDL 14 mg/dL (Normal) Range: [...] :34 Testosterone, Serum Total Comments: Test performed at:[facility] Dgyjichhgx1194 [facility] [place] [address] Testosterone 20 ng/dL (Normal) Range: 14-76 :34 Thyroid Stim Hormone (TSH) Comments: ORDERED LIPID,CMPDRSANDHYA ORDERED TSH,HARLEEN,DHEATest performed at:[facility] Pwpdztohsb9850 [facility] [place] [address] TSH < 0.01 {uIU/mL} (Abnormal) Range: 0.358-3.74 92-Qal-641386:12 CBC W/Diff, Automated Comments: Test performed at:[facility] Nmxrmrqrvn4170 [facility] [place] [address] Absolute Lymph 1.81 {X10_3/ul} (Normal) [...] 4.2-5.4 WBC 6.0 K/mm3 (Normal) Range: 4.4-11.0 :12 Comprehensive Metabolic Profil Comments: Test performed at:[facility] Jxiahvoeaw4816 [place], [place] [address] GAP 6 (Normal) Range: 5-15 CO2 29.0 [...] had Radioactive Injection for X-ray?: NTest performed at:[facility] Lkndpjaxsr0911 [facility] HospitalIfeanyi [place], [place] [address] DHEA SULF 4020 22.6 ug/dL (Abnormal) Range: 41.2-243.7 Comments: Performed at: [facility] [id number] Director: Omer Stout PhD, Phone: [phone] :36 Free T3 Comments: Has Patient had X-rays with Contrast this admission? ??NIs Patient on Heparin? ??NTest performed at:[facility] [address] ??[place], [place] ??[address] FREE T3 4.7 pg/mL (Abnormal) Range: 2.18-3.98 :36 T4 Free Direct Comments: Has Patient had X-rays with Contrast this admission? NIs Patient on Heparin? NTest performed at:[facility] Sm[address]vslqz[address] [place] [address] T4 FREE DIRECT 1.54 ng/dL (Abnormal) Range: 0.76-1.46 :36 Thyroid Stim Hormone (TSH) Comments: Has Patient had X-rays with Contrast this admission? NIs Patient on Heparin? NTest performed at:[facility] [address]nimcx[address] [place] [address] TSH < 0.01 {uIU/mL} (Abnormal) Range: 0.358-3.74 :36 Vitamin D,25 Hydroxy Comments: Test performed at:[facility] R[address]eybnlp[address] [place] [address] Vitamin D 25-OH 34.0 ng/mL (Normal) Comments: Vitamin D 25(OH) Status Range Deficiency <20 ng/mL (50nmol/L) Insuffciency 20 - 30 ng/mL (50 - 75 nmol/L) Sufficiency 30 - 100 ng/mL (75 - 250 nmol/L) Toxicity >100 ng/mL (>250 nmol/L) :02 CBC W/Diff, Automated Comments: Test performed at:[facility] [address]mwrpvjbhm[address] [place] [address] ; non- emergent till apt Absolute [...] 4.2-5.4 WBC 6.0 K/mm3 (Normal) Range: 4.4-11.0 85-Czi-25515:02 Comprehensive Metabolic Profil Comments: Test performed at:[facility] Hmgihxrmbl38[address] [place] [address] GAP 7 (Normal) Range: 5-15 [...] 70-110 :02 Lipid Profile Comments: Test performed at:[facility] Kaaq[address]urun[address] [place] [address] VLDL 14 mg/dL (Normal) Range: 5-40 LDL [...] 200-240 mg/dL Borderline >240 mg/dL High Risk 24-Pao-297058:09 CBC W/Diff, Automated Comments: Test performed at:[facility] Wmjayjardi[address] [place] [address] ; handled by kerri Absolute Lymph 2.45 [...] 4.2-5.4 WBC 8.0 K/mm3 (Normal) Range: 4.4-11.0 04-Amg-144509:09 Comprehensive Metabolic Profil Comments: Test performed at:[facility] [address]xnbkeyjrb[address] [place], [place] [address] ; [facility] GAP 6 (Normal) Range: 5-15 CO2 28.0 [...] 7-18 GLU 79 mg/dL (Normal) Range: 70-110 05-Fpz-57977:19 CMP Comments: DR BROWN ORDERED LIPID CMPDR VILLAFANA ORDERED CMP CBCD GAP 4 (Abnormal) Range: [...] 7-18 GLU 98 mg/dL (Normal) Range: 70-110 08-Dxg-28997:19 LIPID Comments: DR BROWN ORDERED LIPID CMPDR [...] CHOL 168 mg/dL (Normal) Comments: <200 mg/dL Ultjvzooo193-176 mg/dL Borderline>240 mg/dL High Risk 52-Eer-887353:51 CBCD ALC 2.36 {X10_3/ul} (Normal) Range: 0.83-4.51 [...] 4.2-5.4 WBC 8.0 K/mm3 (Normal) Range: 4.4-11.0 36-Via-504696:51 CMP Comments: DR VILLAFANA ORDERED CBCD CMP [...] 7-18 GLU 89 mg/dL (Normal) Range: 70-110 83-Qha-409320:51 CORTU Comments: Has Patient had Radioactive Injection for X-ray?: N tCORTU 9 ug/L (Normal) dFCESL95 39 {ug/24_hr} (Normal) Range: 0-50 51-Gvt-893910:51 DHEA 19.8 ug/dL (Abnormal) Comments: Has Patient had Radioactive Injection for X-ray?: N Range: 41.2-243.7 Comments: Performed at: [place] [address] [place], [place] [id number] Director: Eusebio Live MD, Phone: [phone] at: [address] [address]Lab Director: Omer Stout PhD, Phone: [phone] 50-Fmq-913785:51 FT3 2.2 pg/mL (Normal) Comments: DR VILLAFANA ORDERED CBCD CMP ONLYHas Patient had X-rays with Contrast this admission? N Range: 2.18-3.98 38-Sfd-855610:51 METAU Comments: Has Patient had Radioactive Injection for X-ray?: N tMETA 40 ug/L (Normal) tMETA24 172 {ug/24_hr} (Normal) Range: 45-290 Comments: (Hypertensive) >17 years 11 months: 35 - 460 tNORM24 292 {ug/24_hr} (Normal) Range: 82-500 Comments: (Hypertensive) >17 years 11 months: 110 - 1050 tNORM 68 ug/L (Normal) 65-Zog-749920:51 T4F 0.98 ng/dL (Normal) Comments: DR VILLAFANA ORDERED CBCD CMP ONLYHas Patient had X-rays with Contrast this admission? N Range: 0.76-1.46 :51 TSH 0.66 {uIU/mL} (Normal) Comments: DR VILLAFANA ORDERED CBCD CMP ONLYHas Patient had X-rays with Contrast this admission? N Range: 0.358-3.74 90-Wjq-793345:51 VITD 51.8 mg/mL (Normal) Comments: Vitamin D 25(OH) Status RangeDeficiency <20 ng/mL (50nmol/L)Insuffciency 20 - 30 ng/mL (50 - 75 nmol/L)Sufficiency 30 - 100 ng/mL (75 - 250 nmol/L)Toxicity >100 ng/mL (>250 nmol/L) 9-Gwc-280604:01 URINE ARELY CULTURE-SPRING COL Comments: PATIENT NOT FASTINGPERFORMED BY: [facility] [id number] Information: SRC:UR [id number] COUNT ([id number]) Result 1 NG36 (Normal) Comments: No growth in 36 - 48 hours. Urine Culture,Comprehensive Final report (Normal) 5-Mfp-150465:44 Urinalysis, Office (12860) UA - LEUKOCYTE ESTERASE Negative (Normal) UA [...] N Range: 41.2-243.7 Comments: Performed at: - [facility] [id number] Director: Sterling Porter MD, Phone: [phone] :[phone] FT3 2.4 pg/mL (Normal) Comments: LIPID [...] CHOL 235 mg/dL (Abnormal) Comments: <200 mg/dL Ftisefdxy548-605 mg/dL Borderline>240 mg/dL High Risk :00 T4F 0.98 ng/dL (Normal) Comments: DR.FAST ANG VENGEAS CMP TSH T4F T3F VITD DHEA Range: [...] 268 {mOsm/KG} (Normal) Comments: OSMOLALITY URINE REFERENCE ARFIRTCDM04-pqrn Urine 300 - 900 mOsm/kgRandom Urine 50 - 1400 mOsm/kgAfter 12 Hr fluid restriction >850 mOsm/kg 77-Pjr-687342:31 24HULYT Comments: ST 07/25/13 1130AM CREATININE AND SODIUM ONLYST 1130AM uCL24 63 {mmol/24h} (Abnormal) Range: 110-250 CLU 14 mmol/L (Normal) KU 15.5 mmol/L (Normal) uK24 70.1 {mmol/24h} (Normal) Range: 25-125 uNA24 72 {mmol/24h} (Normal) Range: 40-220 EMELI 16 mmol/L (Normal) uLYTV 4525 mL (Normal) 03-Qtw-692627:31 UCRE Comments: ST 07/25/13 1130AM CREATININE AND SODIUM ONLYST 1130AM UCCT 24.0 {HOURS} (Normal) UCRE24 1.2 {g/24_hr} (Normal) Range: 0.6-1.5 UCTV 4.53 L (Normal) URCREAT 26.8 mg/dL (Normal) 54-Gwj-483485:30 CAU Comments: ST 07/25/13 1130AMST 07/25/13/1130AMComments: pi6119 24 hr sodium urine tCAU24 90.0 {mg/24_hr} (Normal) Range: 100.0-300.0 Comments: Reference Ssosg773.0 - 300.0Total volumne: 4525 ml/24hrPerformed at: [facility] [id number] Director: Sterling Porter MD, Phone: [phone] CAUR 2.1 mg/dL (Normal) 91-Djz-411994:18 CBCD ALC 2.09 {X10_3/ul} (Normal) Range: 0.83-4.51 [...] 4.2-5.4 WBC 7.0 K/mm3 (Normal) Range: 4.4-11.0 76-Pwv-120020:18 CMP Comments: Comments: je9193 24 hr sodium urine GAP 8 (Normal) [...] X-ray?: N Range: 41.2-243.7 Comments: Performed at: [address] [id number] Director: Sterling Porter MD, Phone: [phone] :31 T4F 1.03 ng/dL (Normal) Range: 0.76-1.46 [...] CHOL 176 mg/dL (Normal) Comments: <200 mg/dL Znzphfqzp465-557 mg/dL Borderline>240 mg/dL High Risk :17 T4F 1.08 ng/dL (Normal) Comments: DR BROWN ORDERED CMP LIPIDDR WIETECHA ORDERED TSH T3F T4F BMP Range: 0.76-1.46 :17 TSH 0.49 {uIU/mL} (Normal) Comments: DR BROWN ORDERED CMP LIPIDDR WIETECHA ORDERED TSH T3F T4F BMP Range: 0.358-3.74 9-Dhm-268366:52 BREAST UNILATERAL Radiology See Note Comments: STUDY: [...] Galeana M.D.November 02, 2012 at 4:00:42 PM [id number] Signed GP/GP If you are the referring physician and would like to consult with theradiologist who provided this interpretation, please contact Luis Angel Quintana at [phone]. If this radiologist is un available, youwill be directed to another radiologist to assist. If you are a patient with a question regarding this report, pleasecontactyour referring physician directly. Professional Interpretation P rovided By: [email or web address], Phone , These documents contain legally protected [...] 11/02/12 1609 by ITS IMPORTSi gn by Wendy IRVIN,Barrera on 11/02/12 1610 Sign by: Wendy IRVINBarrera [...] Galeana M.D.November 02, 2012 at 3:22:08 PM [id number] Signed GP/GP If you are the referring physician and would like to consult with theradiologist who provided this interpretation, please contact Luis Angel Quintana at [phone]. If this radiologist is unavailable, youwil l be directed to another radiologist to assist. If you are a patient with a question regarding this report, pleasecontactyour referring physician directly. Professional Interpretation Provided By: [employer], Phone , These documents contain legally protected [...] 11/02/12 1537 Sign by: Barrera Galeana MD 76-Umr-13620:00 ABDOMEN/PELVIS WITHOUT CONT Radiology Report See Note [...] Galeana M.D.September 14, 2012 at 8:22:23 AM [id number] Signed GP/GP If you are the referring physician and would like to consult with theradiologist who provided this interpretation, please contact Luis Angel Qiuntana at [phone]. If this radiologist is unavailable, youwill be directed to another radiologist to assist. If you are a patient with a question regarding this report, pleasecontactyour referring niecy meredithbrianajessica directly. Professional Interpretation Provided By: [employer], Phone , These documents contain legally protected [...] documents. Dictated on 09/14/12821 by Aureliano Galeana MDscribed on 09/14/12823 by ITS IMPORTSign by Barrera Galeana MD on 07/19/13 0825 Sign by: Barrera Galeana MD 10-Tap-719640:15 URINE ARELY CULTURE-IDENTIFICATN Comments: PATIENT NOT FASTINGPERFORMED BY: JUAN LUIS [facility] [address] [place] [id number] Information: ADD [id number] (55115) Result 1 NG36 (Normal) Comments: No growth in 36 - 48 hours. Urine Culture,Comprehensive Final report (Normal) 56-Llg-634182:03 Urinalysis, Office (47121) UA - BILIRUBIN Negative (Normal) UA - BLOOD Non Hemolyzed Trace (Normal) UA - GLUCOSE Negative (Normal) UA - KETONES Negative mg/dL (Normal) UA - LEUKOCYTE ESTERASE Negative (Normal) UA - NITRITE Negative (Normal) UA - PH 7.0 (Normal) UA - PROTEIN Negative mg/dL (Normal) UA - SPECIFIC GRAVITY 1.010 (Normal) URINE UROBILINGN SPRING TIMED Normal mg/dL (Normal) 14-Oiy-885345:14 CBCMD ANC 3.2 3/uL (Normal) Range: 2.0-7.7 [...] CHOL 206 mg/dL (Abnormal) Comments: <200 mg/dL Bzudxhdtx421-363 mg/dL Borderline>240 mg/dL High Risk 05-Ads-366148:14 T4F 1.17 ng/dL (Normal) Range: 0.76-1.46 40-Oyd-553406:14 TSH 0.02 {uIU/mL} (Abnormal) Range: 0.358-3.74 :14 VITD 39.9 ng/mL (Normal) Comments: Vitamin D 25(OH) Status RangeDeficiency <20 ng/mL (50nmol/L)Insufficiency 20 - 30 ng/mL (50 - 75 nmol/L)Sufficiency 30 - 100 ng/mL (75 - 250 nm ol/L)Toxicity >100 ng/mL (250 nmol/L)Effective 201222-Jun-201274-Skb-590398:23 BILAT SCRN DIGITAL & CAD Radiology Report See Note (Normal) Comments: MAMMOGRAPHY - BILATERAL SCREENING REASON FOR EXAM: Female, 51 years old. Routine annual screeningexamination. PERTINENT HISTORY: Mother with breast cancer. TECHNIQUE: Digital examinat ion. Mediol ateral oblique (MLO) andcraniocaudad (CC) views of both breasts were obtained. CAD: CAD wasperformed on this study. COMPARISON: Comparison is made with prior study dated June 23ndApr 1. FINDINGS:The breast composition is composed of [...] Galeana M.D.June 22, 2012 at 2:15:23 PM [phone] Signed GP/GP If you a re the referring physician and would like to consult with theradiologist who provided this interpretation, please contact Luis Angel Quintana at [phone]. If this radiologist is unavailable, you will [...] GLU 4 HR GLU GTT-4 HOUR from 0426:Q89741F. 11:43 (Abnormal) Range: 70-110 22-Jun-2012 glu gtt3 36 mg/dL Comments: 4HR GTT GLU 3 HR GLU GTT-3 HOUR from 0426:F01000K. 10:50 (Abnormal) Range: 70-110 Comments: CRITICAL VALUE REPEATED AND VERIFIED. CALLED TO ANUEL BENTLEY06/22/12 MARGY SYKES.RESULTS READ BACK BY SAME . 22-Jun-2012 glu gtt2 84 mg/dL (Normal) Comments: 4HR GTT GLU 2 HR GLU GTT-2 HOUR from 0426:W36455G. 9:50 Range: 70-120 22-Jun-2012 glu gtt1 118 mg/dL Comments: 4HR GTT GLU 1 HR GLU GTT-1 HOUR from 0426:E18276M. 8:50 (Abnormal) Range: 120-170 22-Jun-2012 glu gtt.5 140 mg/dL Comments: 4HR GTT GLU 1/2 HR GLU GTT-30 min. from 0426:P04666H. 8:20 (Normal) Range: 110-170 :40 BGM Comments: 4HR GTT FASTING GLU GTT-FASTING from 0426:S43828G. glu gttf 94 mg/dL (Normal) Range: 70-110 Comments: GLUCOSE TOLERANCE TEST Reference IntervalNon- AdultsFasting 70 - 84264 minutes 110 - 1701 hour 120 - 1702 hour 70 - 1203 hour 70 - 1104 hour 70 - 1105 hour 70 - 110 BGM 97 mg/dL (Normal) Range: 70-110 Comments: MANAGEMENT OF PATIENT CARE PER NURSING PROTOCOLNo Action Required0 :40 CBCD Comments: DR DAILY ORDERED HMZ9IUQXJOSEPH VILLAFANA ORDERED CMP CBCD ANC 2.2 3/uL [...] 4.4-11.0 :40 CMP Comments: DR DAILY ORDERED BOK3EMFVJOSEPH VILLAFANA ORDERED CMP CBCD GAP 8 (Normal) [...] 70-110 :40 GTT4 Comments: DR DAILY ORDERED NRI7LBCKDR VILLAFANA ORDERED CMP CBCD 29-May-20129:31 CBC WITH MANUAL DIFF Comments: PATIENT NOT FASTINGPERFORMED BY: [facility] VinelandGpjusl9938 [facility] [id number] Information: [id number] (07024) Immature Grans (Abs) 0.0 {x10E3/uL} (Normal) Range: [...] 9.0 {x10E3/uL} (Normal) Range: 4.0-10.5 :31 TSH (00585) Comments: PATIENT NOT FASTINGPERFORMED BY: Paver Downes AssociatesCoInspira Medical Center VinelandQcqiis0566 [facility] [id number] TSH 6.430 {uIU/mL} (Abnormal) Range: 0.450-4.500 :31 EBV Panel (53093) Comments: PATIENT NOT FASTINGPERFORMED BY: [facility] VinelandFocdcv3485 [facility] [id number] Interpretation: SPRCS (Normal) Comments: EBV Interpretation Chart [...] 5:28 (Abnormal) Comments: Results confirmed ondilution.Performed at: [facility] [id number] Director: Omer Stout PhD, Phone: [phone] TSH 0.90 {uIU/mL} Range: 0.358-3.74 5:28 (Normal) 8-Qbw-313919:59 Urinalysis, Office (45924) UA - BILIRUBIN Negative (Normal) UA - BLOOD Hemolyzed Trace (Normal) UA - GLUCOSE Negative (Normal) UA - KETONES Negative mg/dL (Normal) UA - LEUKOCYTE ESTERASE Negative (Normal) UA - NITRITE Negative (Normal) UA - PH 7.0 (Normal) UA - PROTEIN Negative mg/dL (Normal) UA - SPECIFIC GRAVITY 1.010 (Normal) URINE UROBILINGN SPRING TIMED Normal mg/dL (Normal) 1-Igq-408973:11 ARELY CULTURE-OTHER (83196) Comments: PATIENT NOT FASTINGPERFORMED BY: [facility] [address] [id number] Information: SRC:THRT [id number] Result 1 RRF (Normal) Comments: Routine respiratory kaylene Upper Respiratory Culture Final report (Normal) 8-Ibk-175593:58 Rapid Strep Test, Office (88875) Rapid Strep Test, Office Negative (Normal) :47 Urinalysis, Office (48746) UA - BILIRUBIN Negative (Normal) UA - BLOOD Hemolyzed Trace (Normal) UA - GLUCOSE Negative (Normal) UA - KETONES Negative mg/dL (Normal) UA - LEUKOCYTE ESTERASE Negative (Normal) UA - NITRITE Negative (Normal) UA - PH 6.0 (Normal) UA - PROTEIN Negative mg/dL (Normal) UA - SPECIFIC GRAVITY 1.010 (Normal) URINE UROBILINGN SPRING TIMED Normal mg/dL (Normal) 7-Jmz-865328:11 URINE ARELY CULTURE (SPRING Comments: PATIENT NOT FASTINGPERFORMED BY: [facility] Ofntje9964 [facility] [id number] Information: SRC:UR [id number] COL COUNT) ([id number]) Result 1 MUG (Normal) Comments: Mixed urogenital tgmhi993 Colonies/mL Urine Final report (Normal) Culture,Comprehensive 37-Mfl-547043:1 ISAIAS 8.59 ug/dL (Normal) Comments: COMMENTS: FAX RESULTS TO DR. KEVIN HARTMAN DRAW 0 Range: 3.09-22.40 Comments: Adult (AM) 4.30 - 22.40 ug/dL Adult (PM) 3.09 - 16.66 ug/dL 75-Wyb-27306:40 ISAIAS 10.40 ug/dL (Normal) Comments: COMMENTS: FAX [...] (Normal) Range: 70-110 Comments: RESULTS FAXED TO [phone] 01/13/12 0934 MARINE TOURE.RESULTS FAXED TO [phone] 01/13/12 0959 MARINE TOURE. :25 ISAIAS 13.11 [...] 0-34 Comments: Results confirmed ondilution.Performed at: - [facility] [id number] Director: Omer Stout PhD, Phone: [phone] :[phone] TSH 5.66 {uIU/mL} (Abnormal) Comments: COMMENTS: FAX RESULTS TO DR. KEVIN HARTMAN DRAW Range: 0.358-3.74 :15 CBCMD Comments: DR BROWN ORDERED LIPID,CMP,TSH,CBCMDDR ANYLANKI ORDRED CMP,CBCD PLTM LARGE (Normal) RBCM NORM [...] ORDERED LIPID,CMP,TSH,CBCMDDR VELLANKI ORDRED CMP,CBCD Range: 0.358-3.74 6-Lno-580256:46 MYOCARD PERF STRESS/REST MULT Radiology Report See [...] Mazin IRVIN,Uzair on 12/05/11 0829 Sign by: Uzair Retana MD 60-Fbe-554386:42 BRAIN W/WO CONTRAST Radiology Report See Note [...] Soto M.D.November 16, 2011 at 2:50:07 PM [phone] Signed LL/LL If you are the referring physician and would like to consult with theradiologist who provided this interpretation, please contact Shahla Weiss M.D. at [phone]. If this radiologist is unavailable, you willbe directed to another radiologist to assist. If you are a patient with a question regarding this report, pleasecontactyour referring physician fabiana fuentes. Professional Interpretation Provided By: [employer], Phone , These documents contain legally protected [...] 11/16/11 1457 Sign by: SHAHLA SOTO MD 32-Hic-200074:25 CHEST WITH CONTRAST Radiology Report See Note [...] Galeana M.D.November 14, 2011 at 3:11:11 PM [id number] Signed GP/GP If you are the referring physician and would like to consult with theradiologist who provided this interpretation, please contact Luis Angel Quintana at [phone]. If this radiologist is unavailable, youwill be directed to another radiologist to assist. If you are a patient with a question regarding this report, pleasecontactyour referring physician directly. Professional Interpretation Provided By: [employer], Phone , These documents contain legally protected [...] on 11/15/11 1543 Sign by: Wendy IRVIN,Barrera 71-Npk-362680:39 L/S SPINE,MIN 4 VIEWS Radiology Report See [...] Galeana M.D.November 14, 2011 at 3:46:06 PM [phone] Signed GP/GP If you are the referring physician and would like to co nsult with theradiologist who provided this interpretation, please contact Luis Angel Quintana at [phone]. If this radiologist is unavailable, youwill be directed to another radiologist to irene ruiz. If you are a patient with a question regarding this report, pleasecontactyour referring physician directly. Professional Interpretation Provided By: [employer], Phone ,Fax These documents contain legally protected [...] 11/15/11 1605 Sign by: Barrera Galeana MD 87-Rsy-092517:38 CERV SPINE,MIN 4 VIEWS Radiology Report See [...] fusion at the C4, C5, and C5, W0ikcjotcrhc prosthetic disk material. 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 Normal visualized intervertebral neuroforamina. Normal visuali zed soft tissue structures. IMPRESSION:Anterior fusion at the C4-C5 and C6- C7 levels. Signed:Barrera Galeana M.D.November 14, 2011 at 3:47:12 PM [phone] Signed GP/GP If you ar e the referring physician and would like to consult with theradiologist who provided this interpretation, please contact Luis Angel Quintana at [phone]. If this radiologist is unavailable, youw ill [...] destructionofthese documents. Dictated on 11/14/11 100 by Marcel Galeana MDscribed on 11/14/11 155 by ITS IMPORTSign by Barrera Galeana MD on 11/14/11 155 Sign by: Barrera Galeana MD 20-Esp-851224:38 HIP, MIN 2 VIEWS Radiology Report See [...] Galeana M.D.November 14, 2011 at 3:48:20 PM [phone] Signed GP/GP If you are the referring physician and would like to consult with theradiologist who provided this interpre tation, please contact Luis Angel Quintana at [phone]. If this radiologist is unavailable, youwill be directed to another radiologist to assist. If you are a patient with a question regarding t his report, pleasecontactyour referring physician directly. Professional Interpretation Provided By: [employer], Phone , These documents contain legally protected [...] documents. Dicta kat on 11/14/11 1006 by Kim Galeana MDranscribed on 11/14/111554 by ITS IMPORTSign by Barrera [...] Galeana M.D.November 14, 2011 at 3:48:08 PM [id number] Signed GP/GP If you are the referring physician and would like to consult with ld crowley who provided this interpretation, please contact Luis Angel Quintana at [phone]. If this radiologist is unavailable, youwill be directed to another radiologist to assist. If you are a patient with a question regarding this report, pleasecontactyour referring physician directly. Professional Interpretation Provided By: [email or web address], Phone , These document s contain legally [...] documents. Dictated on 11/14/11 1014 by Wendy IRVIN,AcriTonioranscribed on 11/15/11 1607 by ITS IMPORTSign by Wendy IRVIN,Barrera on 11/15/11 1608 Sign by: Barrera Galeana MD 3-Xoc-495497:42 JACQUI Comments: DR BROWN ORDERED LIPID TSH CMPDR VELLANKI ORDERED CMP CBCD DNA JACQUI CHERIE SCL-70 SSA/SSBENA ANTICENTROMERE taANA 45 AU/mL (Normal) 6-Kvs-433614:42 ANEX Comments: DR BROWN ORDERED LIPID TSH CMPDR VELLANKI ORDERED CMP CBCD DNA JACQUI CHERIE SCL-70 SSA/SSBENA ANTICENTROMERE taANA COMMENT (Normal) Comments: TESTING INTERPRETATIONSPOSITIVE: > 120EQUIVOCAL: 100 - 120NEGATIVE: < 100 taRNP 29 AU/mL (Normal) taSM 32 AU/mL (Normal) 6-Qwe-081391:42 ANTIJO1 Comments: DR BROWN ORDERED LIPID TSH CMPDR VELLANKI ORDERED CMP CBCD DNA JACQUI CHERIE SCL-70 SSA/SSBENA ANTICENTROMERE taJO1 17 AU/mL (Normal) 0-Yjt-652333:42 CBCD ANC 3.9 3/uL (Normal) Range: 2.0-7.7 [...] 4.2-5.4 WBC 6.2 K/mm3 (Normal) Range: 4.4-11.0 8-Ybr-887719:42 CENTB Comments: DR BROWN ORDERED LIPID TSH CMPDR TRES ORDERED CMP CBCD DNA JACQUI CHERIE SCL-70 SSA/SSBENA ANTICENTROMERE taCENTB 6 AU/mL (Normal) 5-Dfc-233717:42 CMP Comments: DR BROWN ORDERED LIPID TSH [...] 7-18 GLU 94 mg/dL (Normal) Range: 70-110 1-Dsw-173001:42 DNAAB Comments: DR BROWN ORDERED LIPID TSH CMPDR VELLANKI ORDERED CMP CBCD DNA JACQUI CHERIE SCL-70 SSA/SSBENA ANTICENTROMERE tadsDNA 5 {IU/mL} (Normal) 3-Qvf-727758:42 LIPID Comments: DR BROWN ORDERED LIPID TSH [...] 200-240 mg/dL Borderline >240 mg/dL High Risk 7-Slt-664589:42 SCL70 Comments: DR BROWN ORDERED LIPID TSH CMPDR VELLANKI ORDERED CMP CBCD DNA JACQUI CHERIE SCL-70 SSA/SSBENA ANTICENTROMERE taSCL70 45 AU/mL (Normal) 8-Wtk-694140:42 SSA Comments: DR BROWN ORDERED LIPID TSH CMPDR VELLANKI ORDERED CMP CBCD DNA JACQUI CHERIE SCL-70 SSA/SSBENA ANTICENTROMERE taSSA 31 AU/mL (Normal) 7-Fqf-873046:42 SSB Comments: DR BROWN ORDERED LIPID TSH CMPDR VELLANKI ORDERED CMP CBCD DNA JACQUI CHERIE SCL-70 SSA/SSBENA ANTICENTROMERE taSSB 34 AU/mL (Normal) 3-Kyk-736305:42 TSH 11.70 {uIU/mL} (Abnormal) Comments: DR BROWN [...] Galeana M.D.September 13, 2011 at 9:19:02 AM [id number] ly Signed GP/GP If you are the referring physician and would like to consult with theradiologist who provided this interpretation, please contact Luis Angel Quintana at [phone]. If this radiolo gist is unavailable, youwill be directed to another radiologist to assist. If you are a patient with a question regarding this report, pleasecontactyour referring physician directly. Professional Interp retation Provided By: [employer], Phone , Dictated on 09/13/11 0834 by Wendy IRVIN,Kimranscribed on 09/13/11 0945 by ITS IMPORTSign by Barrera Galeana MD on 09/13/11945 Sign by: Barrera Galeana MD :47 CBCMD [...] Signed GP/GP Professional Interpretation Provide d By: [facility], , To consult with a radiologist regarding this report, please call our [id number] line @ Dictated on 03/10 1331 by Kim Galeana MDranscribed on 06/28/111851 by ITS IMPORTSign by Barrera Galeana MD on 06/28/111852 Sign by: Barrera Galeana MD 35-Nei-25146:32 THYROID Radiology Report See Note (Normal) Comments: [...] EDTElectronically Signed DL/DL Professional Interpretation Provided By: [facility], , To consult with a radiologist regarding t his report, please call our [id number] line @ Dictated on 06/24/11 1013 by John Spencer MDTranscribed on 06/24/111654 by ITS IMPORTSign by John Spencer MD on 06/24/11 165 Sign by: John Spencer MD 08-Unc-21820:30 BILAT SCRN DIGITAL & CAD Radiology Report [...] EDTElectronically Signed GP/GP Professional Interpretation Provided By: [facility], , To consult with a radiologist regarding this report, please call our [id number] line @ Dictated on 06/24/11 0945 by Wendy IRVINGabrieleTranscribed on 06/24/11 1025 by ITS IMPORTSign by [...] 7-18 GLU 94 mg/dL (Normal) Range: 70-110 42-Coh-967319:46 EBGM tEBINT Comment (Normal) Comments: EBV Interpretation Chart . Interpretation VCA-IgM EA-IgG VCA-IgG NA-ABS . Susceptible - - - - Acute Infection + +or- +or- - Convalescent Phase +or- +or- + + Chronic or Reactivated - + + +or- Old Infection - - +or- + + Antibody Pr esent - Antibody AbsentPerformed at: [facility] [id number] Director: Iraida Willingham MD, Phone: [phone] EBNA > 8.0 {AI} (Abnormal) Range: 0.0-0.8 [...] radiologist regarding this report, please call our [id number] line @ Dictated on 06/07/11 1321 by Wendy IRVIN,Marcelctri bed on 06/07/111407 by ITS IMPORTSign by Wendy IRVIN,Barrera on 06/07/111408 Sign by: Wendy IRVIN,Barrera CUT See Note (Normal) Comments: #1- PRESUMPTIVE FRANK ALBICANSNo beta-hemolytic streptococcus isolated. AM[place] GROWTH RARE ORGANISM 1: YEAST 4:09 H.PYLORI [id number] < 0.9 U/mL (Normal) Range: 0.0-0.8 1:47 Comments: Negative <0.9 Indeterminate 0.9 - 1.0 Positive >1.0Performed at: [facility] [address] [id number] Director: Iraida Willingham MD, Phone: [phone] 9-Iwy-209209:34 CBCD,SMEAR DIFF MACROCYTE 1+ (Normal) RED CELL [...] 7-18 GLU 83 mg/dL (Normal) Range: 70-110 8-Xla-509612:20 Urinalysis, Office (64368) UA - BILIRUBIN Negative (Normal) UA - [...] URINE CULTURE Culture exhibits no growth. (Normal) 9-Xvz-629506:07 CULTURE, THROAT See Note (Normal) Comments: AMOUNT [...] $ <=10 S VANCOMYCIN $ <=1 S 7-Dky-512801:30 Rapid Strep Test, Office (14076) Rapid Strep Test, Office Negative (Normal) 14-Add-685804:52 SPINE,CERVICAL WITHOUT CONTRAS Radiology Report See Note [...] C5-C6 and C6-C7 levels. Dictated on 20/01 0417 by Kim Galeana MDranscribed on 07/21/10 0101 by ITS IMPORTSign by Barrera Galeana MD on 07/21/10 0102 Sign by: Barrera Galeana MD 73-Zyw-477456:22 CERV SPINE,MIN 4 VIEWS Radiology Report See Note (Normal) Comments: CLINICAL:Female, 49 years old. Neck pain. X-RAY EXAMINATION - CERVICAL SPINE TECHNIQUE:Five views of the cervical spine were obtained. COMPARISON:None FINDINGS:Normal craniovertebral junction. Normal anterior atlantoaxialarticulation. Normal odontoid process. There is straightening of the normal cervical lordosis. Normal vertebralbodies and posterior osseous elements. The transverse processes of S1asymuevvfsid. There is multi-level degenerative disc space narrowing with endplatespondylosis. There is multi-level osseous foraminal stenosis at L6-F7zocM2-K2, bilateral. Normal visualized soft tiss ue structures. IMPRESSION:Multilevel degenerative disc disease with osseous foraminal stenosis.Prominent transverse processes of C7 may cause thoracic outlet syndrome.Straightening of the normal cervica l lordosis. Dictated on 07/13/10 153 by MANJINDER HOLLIDAY MDOTranscribed on 07/14/10 1209 by ITS IMPORTSign by SWATI HOLLIDAY MD on 07/14/10 1210 Sign by: SWATI HOLLIDAY MD 21-Mze-12188:00 CHEST, PA AND LATERAL Radiology Report See [...] and bi lateralhipsw ere obtained using a CRAVE scanner.. COMPARISON:Comparison is made with prior study [...] on 06/22/10 0942 by Wendy IRVIN,Kimranscribed on 06/22/10 144 by ITS IMPORTSign by Barrera Galeana MD on 06/22/101444 Sign by: Barrera Galeana MD 8-Jhg-030346:14 Rapid Strep Test, Office (56622) Rapid Strep Test, Office Negative (Normal) :00 [...] CBCD VITD Range: 0.358-3.74 :29 VIT D,25 03404 53.4 ng/mL (Normal) Comments: DR. BROWN ORDERED TSH LIPID CMP VITD CBCMDDR. NENITAKI CMP CBCD VITD Range: 32.0-100.0 Comments: Recent studies consider the lower limit of 32.0 ng/mL to ama threshold for optimal health.Fco GARCIA. J Nutr. 2004;135(2):317-22.Performed at: - [place]CoA[place] [id number] Director: Iraida Willingham MD, Phone: [phone] 10-Afp-535329:30 LQD PAP [id number] PAPSMR Comment (Normal) Comments: The Pap smear [...] no HPV testing was performed. .Performed at: [address]Minh [place] [id number] Director: Nita Hernandez MD, Phone: [phone] COMM . (Normal) DIAGN Comment (Normal) Comments: NEGATIVE FOR INTRAEPITHELIAL LESION AND MALIGNANCY.CELLULAR CHANGES ASSOCIATED WITH ATROPHY ARE PRESENT.Satisfactory for evaluation.Kiran Gayle, Application Systems Engineer (ASCP) :41 BONE SCAN WHOLE BODY [...] Report See Note (Normal) Comments: Exam Number: [id number] LINICAL:This is a 49-year-old female patient with [...] Report See Note (Normal) Comments: Exam Number: [id number] LINICAL:This is a 49 year old female [...] as noted above. Reported By: BARRERA GALEANA :41 THYROID (HP) Radiology Report See Note (Normal) Comments: Exam Number: [id number] LINICAL:This is a 49-year-old female patient with [...] described. Reported By: BARRERA GALEANA : ANTI-CCP [id number] 2 {units} (Normal) Range: 0-19 41 Comments: Negative <20 Weak positive 20 - 39 Moderate positive 40 - 59 Strong positive >59Performed at: [facility] Lab[address] [id number] Director: Eusebio Live MD, Phone: [phone] JACQUI DIR SEMI-QL JACQUI DIRECT 77 [...] CHOL 166 mg/dL (Normal) Comments: <200 mg/dL Kjllnwluy922-815 mg/dL Borderline>240 mg/dL High Risk TRIG 85 mg/dL (Normal) Comments: Serum Triglycerides Reference IntervalNormal <150 mg/dLBorderline high 150 - 199 mg/dLHigh 200 - 499 mg/ dLVery High > or = 500 mg/dL 16-Jrc-356794:13 LIVER ALB 4.3 g/dL (Normal) Range: 3.4-5.0 ALK P 52 U/L (Normal) Range: 50-136 ALT 20 U/L (Normal) Range: 12-78 AST 11 U/L (Abnormal) Range: 15-37 D BILI 0.17 mg/dL (Normal) Range: 0.00-0.30 T BILI 0.80 mg/dL (Normal) Range: 0.00-1.00 T PROT 7.6 g/dL (Normal) Range: 6.4-8.2 90-Cwp-293831:13 TSH 0.49 {uIU/mL} (Normal) Range: 0.358-3.74 :13 VIT D,25 68905 63.3 ng/mL (Normal) Range: 32.0-100.0 Comments: Recent studies consider the lower limit of 32.0 ng/mL to ama threshold for optimal health.Fco GARCIA. J Nutr. 2004;135(2):317-22.Performed at: [place] [address]Lab Director: Iraida Willingham MD, Phone: [phone] 0-Zto-238709:57 CHEST, PA AND LATERAL (MT) Radiology Report See Note (Normal) Comments: Exam Number: [id number] X-RAY EXAMINATION: CHEST CLINICAL:This is a 49-year-old female with cough and chest pain. TECHNIQUE:PA and lateral views of the chest were obtained. FINDINGS:No evidence of focal pulmonary infiltrates or effusions. Heart sizeis within normal limits. No pneumothorax. Visualized bones appearintact. IMPRESSION:No evidence of focal pulmonary infiltrates or effusions. Heart sizei s within normal limits. No pneumothorax. Visualized bones appearintact. Reported By: Kd Yañez 02-Jul-20090:00 CULTURE, URINE URINE CULTURE See Note {CFU/mL} [...] CHOL 320 mg/dL (Abnormal) Comments: <200 mg/dL Mshmchnww832-971 mg/dL Borderline>240 mg/dL High Risk TRIG 107 mg/dL (Normal) Comments: Serum Triglycerides Reference IntervalNormal <150 mg/dLBorderline high 150 - 199 mg/dLHigh 200 - 499 mg/ dLVery High > or = 500 mg/dL 20-Jqo-33790:14 T4 FREE DIRECT 0.70 ng/dL (Abnormal) Range: 0.76-1.46 77-Nen-61352:14 TSH 15.20 {uIU/mL} Range: 0.358-3.74 (Abnormal) 35-Xcx-275727:01 BILAT SCRN DIGITAL & CAD Radiology Report See Note (Normal) Comments: Exam Number: [id number] MAMMOGRAM, BILATERAL SCREENING DIGITAL AND CAD HISTORYRoutine [...] mammograms werealso examined with computer-aided detection software ([employer] Reported By: MELISSA LEES M.D. Plan [...] Pain in unspecified hip : Eprescribed prescriptions (G53) Indication: Pain in unspecified hip Pain in [...] Other hyperlipidemia Planned Observations METABOLIC PANEL, COMPREHENSIVE (41960)Indication: Right flank pain On: 28-Trt-146991:21 Request Comments: stat CBC W/AUTO DIFF WBC (33373)Indication: Right flank pain On: 53-Ipp-511774:21 Request Comments: stat CBC with auto diff (48699)Indication: Impaired fasting glucose On: 3-Kof-341638:53 Request METABOLIC PANEL, COMPREHENSIVE (99498)Indication: Impaired fasting glucose On: :53 Request HGB A1C (02570)Indication: Impaired fasting glucose On: :53 Request LIPID PANEL (86819)Indication: Other hyperlipidemia On: :53 Request Vitamin D Hydroxy (92320)Indication: Vitamin D deficiency On: 45-Pkb-537280:10 Request LIPID PANEL (49959)Indication: Other hyperlipidemia On: 18-Ann-280353:10 Request CBC with auto diff (95740)Indication: Impaired fasting glucose On: :08 Request METABOLIC PANEL, COMPREHENSIVE (95102)Indication: Impaired fasting glucose On: 40-Jcc-389226:08 Request C-REACTIVE PROTEIN (81267)Indication: Left-sided face pain On: :08 Request SED RATE ERYTHROCYTE (08432)Indication: Left-sided face pain On: 89-Kno-543165:08 Request HGB A1C (53544)Indication: Impaired fasting glucose On: 03-Mrk-990678:08 Request CBC, PLATELETS & MANUAL DIFF (61650)Indication: Fatigue On: 88-Bpf-153687:44 Request EBV Panel (98845)Indication: Fatigue On: 55-Jbd-853342:44 Request LIPID PANEL (78843)Indication: Other hyperlipidemia On: 1-Npd-616808:00 Request CBC with auto diff (26015)Indication: Impaired fasting glucose On: 0-Mbq-113107:00 Request METABOLIC PANEL, COMPREHENSIVE (76929)Indication: Impaired fasting glucose On: 5-Umf-186584:00 Request HGB A1C (25758)Indication: Impaired fasting glucose On: 9-Xec-505534:00 Request LIPID PANEL (33321)Indication: Other hyperlipidemia On: :37 Request TSH (THYROID STIMULATING HORMONE) (79568)Indication: Acquired hypothyroidism On: :37 Request CBC with auto diff (60452)Indication: Impaired fasting glucose On: :35 Request METABOLIC PANEL, COMPREHENSIVE (56407)Indication: Impaired fasting glucose On: :35 Request MICROALBUMIN: CREATININE RATIO (05156) AND (77726)Indication: Impaired fasting glucose On: :35 Request HGB A1C (07215)Indication: Impaired fasting glucose On: :35 Request CBC W/AUTO DIFF WBC (84310)Indication: Primary adrenocortical insufficiency On: 63-Pog-033736:06 Request METABOLIC PANEL, COMPREHENSIVE (33120)Indication: Primary adrenocortical insufficiency On: 26-Lee-854158:06 Request LIPID PANEL (17371)Indication: Other hyperlipidemia On: :26 Request CBC with auto diff (84853)Indication: Impaired fasting glucose On: 0-Aan-048856:26 Request METABOLIC PANEL, COMPREHENSIVE (00899)Indication: Impaired fasting glucose On: 2-Gbh-190430:26 Request HGB A1C (30373)Indication: Impaired fasting glucose On: 6-Qsz-944907:26 Request TSH (64197)Indication: Acquired hypothyroidism On: 84-Hjd-699672:59 Request Comments: 6 weeks RHEUMATOID FACTOR-QUANT (60102)Indication: Joint pain On: 73-Jkl-404123:02 Request C-REACTIVE PROTEIN (64480)Indication: Joint pain On: 80-Ajy-909539:02 Request SED RATE ERYTHROCYTE (71959)Indication: Joint pain On: 55-Noz-535761:02 Request URIC ACID BLOOD (74938)Indication: Joint pain On: 55-Ben-194691:02 Request T3, FREE (TRIDOTHYRONINE) (20743)Indication: Acquired hypothyroidism On: 36-Hun-019234:58 Request T4, FREE (THYROXINE) (11174)Indication: Acquired hypothyroidism On: 09-Kks-117209:58 Request TSH (28801)Indication: Acquired hypothyroidism On: 13-Evx-238941:58 Request CBC W/AUTO DIFF WBC (47033)Indication: Edema, unspecified type On: :48 Request METABOLIC PANEL, COMPREHENSIVE (97739)Indication: Edema, unspecified type On: :48 Request SODIUM URINE (62029)Indication: Hyponatremia On: :30 Request Vitamin D Hydroxy (16320)Indication: Hypocalcemia On: : Request PARATHORMONE (52941)Indication: Hypocalcemia On: : Request PHOSPHORUS (87038)Indication: Hypocalcemia On: : Request METABOLIC PANEL, COMPREHENSIVE (19685)Indication: Hypocalcemia On: :30 Request T3, FREE (TRIDOTHYRONINE) (40953)Indication: Acquired hypothyroidism On: : Request T4, FREE (THYROXINE) (89563)Indication: Acquired hypothyroidism On: :20 Request TSH (86218)Indication: Acquired hypothyroidism On: :20 Request HGB A1C (34458)Indication: Impaired fasting glucose On: :17 Request MICROALBUMIN: CREATININE RATIO (99016) AND (27288)Indication: Impaired fasting glucose On: :17 Request METABOLIC PANEL, COMPREHENSIVE (39539)Indication: Impaired fasting glucose On: :17 Request T3, FREE (TRIDOTHYRONINE) (77380)Indication: Acute nonintractable headache, unspecified headache type On: :46 Request T4, FREE (THYROXINE) (72516)Indication: Acute nonintractable headache, unspecified headache type On: :46 Request TSH (56677)Indication: Acute nonintractable headache, unspecified headache type On: :46 Request TSH (29180)Indication: Acquired hypothyroidism On: :46 Request T4, FREE (THYROXINE) (95801)Indication: Acquired hypothyroidism On: :46 Request Metabolic Panel, Basic (37801)Indication: Hyponatremia On: :46 Request T3, FREE (TRIDOTHYRONINE) (33993)Indication: Acquired hypothyroidism On: :46 Request MICROALBUMIN: CREATININE RATIO (05476) AND (33188)Indication: Impaired fasting glucose On: :55 Request LIPOPROTEIN, BLD, BY NMR (50527)Indication: Other hyperlipidemia On: :55 Request METABOLIC PANEL, COMPREHENSIVE (27498)Indication: Osteoporosis On: 3-Rtt-176420:52 Request Vitamin D Hydroxy (38032)Indication: Osteopenia On: :03 Request CBC W/AUTO DIFF WBC (03045)Indication: Gastroesophageal reflux disease without esophagitis On: 39-Gfo-547407:03 Request METABOLIC PANEL, COMPREHENSIVE (35892)Indication: Other hyperlipidemia On: 39-Hik-347367:03 Request LIPID PANEL (39661)Indication: Other hyperlipidemia On: :03 Request DHEA-S (DEHYDROEPIANDROSTERONE SULFATE) (30174)Indication: Adrenal disorder, other On: :29 Request VITAMIN D, 1, 25-DIHYDROXY (17662)Indication: Vitamin D deficiency On: :29 Request T4, TOTAL (66407)Indication: Acquired hypothyroidism On: :29 Request T3, TOTAL (TRIDOTHYRONINE) (58497)Indication: Acquired hypothyroidism On: :29 Request T3, FREE (TRIDOTHYRONINE) (67660)Indication: Acquired hypothyroidism On: :28 Request T4, FREE (THYROXINE) (19610)Indication: Acquired hypothyroidism On: :28 Request TSH (77480)Indication: Acquired hypothyroidism On: :28 Request T4, FREE (THYROXINE) (32917)Indication: Thyroid nodule On: 1-Qlq-573672:57 Request T3, FREE (TRIDOTHYRONINE) (85863)Indication: Thyroid nodule On: 8-Jvo-880299:57 Request TSH (96643)Indication: Thyroid nodule On: 1-Qbw-739838:57 Request T3, FREE (TRIDOTHYRONINE) (19369)Indication: Acquired hypothyroidism On: :39 Request Comments: forward to Dr Grimm Endocronologist, [place] T4, FREE (THYROXINE) (03235)Indication: Acquired hypothyroidism On: :39 Request Comments: forward to Dr Grimm Endoccandiceologist, [place] TSH (26913)Indication: Acquired hypothyroidism On: :39 Request Comments: forward to Dr Grimm Endoccandiceologist, [place] DHEA (DEHYDROEPIANDROSTERONE) (29660)Indication: Adrenal disorder, other On: :39 Request Comments: forward to Dr Grimm Endoccandiceologist, [place] CALCIFEDIOL (83928)Indication: Vitamin D deficiency On: :38 Request Comments: forward to [place]ologist, [facility] METABOLIC PANEL, COMPREHENSIVE (97748)Indication: Other hyperlipidemia On: 93-Ztq-857473:32 Request LIPID PANEL (49689)Indication: Other hyperlipidemia On: 60-Dtz-845940:32 Request CBC W/AUTO DIFF WBC (43883)Indication: Macrocytosis without anemia On: 77-Edo-347056:53 Request METABOLIC PANEL, COMPREHENSIVE (48704)Indication: Other hyperlipidemia On: 26-Gsz-134278:53 Request LIPID PANEL (02363)Indication: Other hyperlipidemia On: 09-Otg-298405:53 Request METABOLIC PANEL, COMPREHENSIVE (23675)Indication: Other hyperlipidemia On: 72-Sky-538608:24 Request LIPID PANEL (89469)Indication: Other hyperlipidemia On: 35-Nrm-140029:24 Request CULTURE, SPUTUM (86897)Indication: Cough On: 31-Bsq-142708:14 Request METABOLIC PANEL, COMPREHENSIVE (56504)Indication: Other hyperlipidemia On: 4-Qhp-739007:02 Request LIPID PANEL (02957)Indication: Other hyperlipidemia On: 1-Kcq-142363:02 Request CBC WITH MANUAL DIFF (36568)Indication: Upper Respiratory Infection On: 3-Ofn-520790:11 Request METABOLIC PANEL, COMPREHENSIVE (25666)Indication: Upper Respiratory Infection On: 8-Dlh-645310:11 Request LIPID PANEL (21860)Indication: Other hyperlipidemia On: 1-Jrj-845504:11 Request LIPID PANEL (24696)Indication: Other hyperlipidemia On: 37-Ara-633812:28 Request METABOLIC PANEL, COMPREHENSIVE (36015)Indication: Other hyperlipidemia On: 88-Irp-359353:28 Request Vitamin D Hydroxy (64920)Indication: Osteopenia On: 80-Fhm-256710:16 Request CBC WITH MANUAL DIFF (89550)Indication: Fatigue On: :16 Request METABOLIC PANEL, COMPREHENSIVE (56585)Indication: Fatigue On: :16 Request T3, FREE (TRIDOTHYRONINE) (03018)Indication: Acquired hypothyroidism On: :16 Request T4, FREE (THYROXINE) (76501)Indication: Acquired hypothyroidism On: :16 Request TSH (80188)Indication: Acquired hypothyroidism On: :16 Request LIPID PANEL (05648)Indication: Other hyperlipidemia On: 90-Dfg-031069:15 Request T3, FREE (TRIDOTHYRONINE) (93319)Indication: Acquired hypothyroidism On: 21-Feb-2012 Request T4, FREE (THYROXINE) (11678)Indication: Acquired hypothyroidism On: 21-Feb-2012 Request TSH (37939)Indication: Acquired hypothyroidism On: 21-Feb-2012 Request Metabolic Panel, Basic (34298)Indication: Fatigue On: 13-Ajs-841296:58 Request Anti-TPO Antibody (38292)Indication: Acquired hypothyroidism On: 23-Zkn-950675:56 Request T3, FREE (TRIDOTHYRONINE) (44056)Indication: Acquired hypothyroidism On: 78-Ood-621920:56 Request T4, FREE (THYROXINE) (37005)Indication: Acquired hypothyroidism On: 08-Jje-399099:56 Request TSH (30999)Indication: Acquired hypothyroidism On: 33-Kbw-214244:49 Request VITAMIN B-12 (CYANOCOBALAMIN) (97484)Indication: Macrocytosis without anemia On: 33-Sev-651627:49 Request TSH (34459)Indication: Palpitations On: 05-Zor-61777:48 Request METABOLIC PANEL, COMPREHENSIVE (01523)Indication: Syncope On: :48 Request CBC WITH MANUAL DIFF (14466)Indication: Syncope On: :48 Request D-Dimer (41285)Indication: Syncope On: 29-Gfb-73841:48 Request Comments: stat CBC WITH MANUAL DIFF (41475)Indication: inflammatory arthritis- following with valenke On: 90-Vjp-253496:03 Request METABOLIC PANEL, COMPREHENSIVE (05927)Indication: inflammatory arthritis- following with valenke On: 75-Uxl-590684:03 Request LIPID PANEL (25085)Indication: Other hyperlipidemia On: 26-Rbd-406572:03 Request TSH (60416)Indication: Acquired hypothyroidism On: 79-Kkl-04101:56 Request TSH (26939)Indication: Acquired hypothyroidism On: 3-Arh-286970:08 Request Comments: to be done in 8 weeks. METABOLIC PANEL, COMPREHENSIVE (22534)Indication: Dysphagia, unspecified dysphagia On: 84-Zqc-021060:52 Request LIPID PANEL (05394)Indication: Other hyperlipidemia On: 64-Mqy-469196:52 Request TSH (06275)Indication: Acquired hypothyroidism On: 25-Rrn-923166:52 Request TSH (99981)Indication: Acquired hypothyroidism On: 60-Wul-166127:15 Request CULTURE, SPUTUM (89395)Indication: Cough On: 7-Wcd-104346:52 Request Throat Culture (34284)Indication: Unspecified bacterial pneumonia On: 50-Gvg-864021:00 Request Comments: swab tounge per order from Dr. Brown AREYL CULTURE-OTHER (08894)Indication: Unspecified bacterial pneumonia On: 56-Dxa-977497:43 Request EBV Panel (15115)Indication: Fatigue On: 88-Ckg-168455:41 Request METABOLIC PANEL, COMPREHENSIVE (51488)Indication: Fatigue On: 56-Qgo-315600:41 Request CBC WITH MANUAL DIFF (96564)Indication: Fatigue On: 76-Zem-807161:41 Request ARELY CULTURE-OTHER (25689)Indication: Pharyngitis, acute On: 52-Qqj-294540:24 Request Rapid Strep Test, Office (87026)Indication: Pharyngitis, acute On: 09-Spw-049107:24 Request CBC WITH MANUAL DIFF (92013)Indication: Anxiety On: :13 Request METABOLIC PANEL, COMPREHENSIVE (53972)Indication: Other hyperlipidemia On: 39-Qhg-90304:13 Request T4, FREE (THYROXINE) (65715)Indication: Acquired hypothyroidism On: :12 Request T3, FREE (TRIDOTHYRONINE) (06610)Indication: Acquired hypothyroidism On: :12 Request TSH (16334)Indication: Acquired hypothyroidism On: :12 Request LIPID PANEL ([id number])Indication: Other hyperlipidemia On: :11 Request URINE ARELY CULTURE-SPRING COL COUNT ([id number])Indication: Urinary frequency On: :21 Request METABOLIC PANEL, COMPREHENSIVE ([id number])Indication: Gastroesophageal reflux disease without esophagitis On: :19 Request CBC WITH MANUAL DIFF ([id number])Indication: Gastroesophageal reflux disease without esophagitis On: :19 Request HELICOBACTER PYLORI ANTIBODY PROFILE IgG, IgM, IgA ([id number])Indication: Gastroesophageal reflux disease without esophagitis On: :13 Request CBC WITH MANUAL DIFF ([id number])Indication: Preoperative examination On: :42 Request METABOLIC PANEL, COMPREHENSIVE ([id number])Indication: Preoperative examination On: :42 Request PTT (Activated Partial Thromboplastin Time) (26336)Indication: Preoperative examination On: :42 Request PT (Prothrobim Time) (87142)Indication: Preoperative examination On: :42 Request URINALYSIS, W/ MICRO ([id number])Indication: Preoperative examination On: :41 Request TSH ([id number])Indication: Acquired hypothyroidism On: 74-Clx-880183:41 Request LIPID PANEL ([id number])Indication: Other hyperlipidemia On: :41 Request ARELY CULTURE-OTHER ([id number])Indication: Pharyngitis, acute On: 6-Cjc-257174:30 Request ARELY CULTURE-OTHER ([id number])Indication: Pharyngitis, acute On: 3-Uzf-219956:14 Request Thin prep Pap ([id number])Indication: Well woman exam On: 39-Dnh-61588:47 Request Thin prep Pap ([id number])Indication: Well woman exam On: 0-Rht-841911:09 Request Vitamin D Hydroxy (83096)Indication: Osteopenia On: 3-Gcc-779102:24 Request CBC WITH MANUAL DIFF ([id number])Indication: 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 On: Request METABOLIC PANEL, COMPREHENSIVE (37654)Indication: 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 On: : Request LIPID PANEL (26654)Indication: Other hyperlipidemia On: :24 Request TSH ([id number])Indication: Acquired hypothyroidism On: : Request Creatine Kinase Total ([id number])Indication: Arthritis On: :06 Request METABOLIC PANEL, COMPREHENSIVE ([id number])Indication: Arthritis On: : Request CCP ANTIBODY ([id number])Indication: Arthritis On: : Request SED RATE ERYTHROCYTE ([id number])Indication: Arthritis On: : Request C-REACTIVE PROTEIN ([id number])Indication: Arthritis On: : Request JACQUI (ANTINUCLEAR ANTIBODY) ([id number])Indication: Arthritis On: : Request RHEUMATOID FACTOR-QUANT ([id number])Indication: Arthritis On: : Request TSH ([id number])Indication: Acquired hypothyroidism On: : Request HEPATIC FUNCTION PANEL (34539)Indication: Other hyperlipidemia On: : Request LIPID PANEL (62504)Indication: Other hyperlipidemia On: : Request Vitamin D Hydroxy ([id number])Indication: Osteopenia On: :27 Request LIPID PANEL ([id number])Indication: Other hyperlipidemia On: 8-Qeq-327335:22 Request HEPATIC FUNCTION PANEL ([id number])Indication: Other hyperlipidemia On: 4-Bcu-784955:21 Request URINE ARELY CULTURE (SPRING COL COUNT) ([id number])Indication: Abnormal urine On: :19 Request TSH ([id number])Indication: Acquired hypothyroidism On: 3-Gqp-104450:18 Request URINALYSIS, W/ MICRO ([id number])Indication: Low back pain On: 99-Cxd-812415:50 Request T3, FREE (TRIDOTHYRONINE) ([id number])Indication: Acquired hypothyroidism On: 29-Nto-262860:50 Request T4, FREE (THYROXINE) (21488)Indication: Acquired hypothyroidism On: :50 Request CBC WITH MANUAL DIFF ([id number])Indication: Low back pain On: :49 Request METABOLIC PANEL, COMPREHENSIVE (58994)Indication: Family history of diabetes mellitus On: :49 Request LIPID PANEL ([id number])Indication: Other hyperlipidemia On: :47 Request TSH ([id number])Indication: Acquired hypothyroidism On: :47 Request Planned Encounters [...] Martha A Fast DO, Martha A Comments: [id number] arm, SCprefilled syringeMLONG ELECTROCARDIOGRAM, COMPLETE (ECG) On: 05-Dec-2017 Intent ([id number])By: Kevin DO Martha A Kevin Comments: ekg showed normal sinus rhythym, normal axis, no acute st/t wave changes sinus ariana DO, Martha A MRI OF BRAIN WITH AND WITHOUT On: 01-Nov-2017 Intent CONTRAST ([id number])By: Kevin SAMUEL Martha Comments: dont schedule on or A Fast DO, Martha A Flu Vaccine (Quadrivalent) 66284Df: On: 01-Nov-2017 Intent Fast DO, Martha A Fast DO, Martha A Comments: Lot: [id number]: 08/26/18Site: L dltd, IMDose prefilled syringegiven by: Kahlil reviewed and ABN signed Radiology - Forearm - RightBy: Kevin On: 28-Jun-2017 Intent DO, Martha A Fast DO, Martha A DEXA SCAN AXIAL SKELETON ([id number])By: On: 28-Jun-2017 Intent Fast DO, Martha A Fast DO, Martha A Comments: august SCREENING DIGITAL TOMOSYNTHESIS OF On: 2-May-2018 Intent BREAST ([id number])By: Kevin SAMUEL Martha A Comments: august Fast DO Martha A Radiology - Wrist - RightBy: [...] A Comments: prolia injection 1 prefilled syringelot: [id number]: 05/2019RA 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 See MCM: 2048) ([id number])By: Martha Brown DO A Fast DO, Martha A INFUSION, NORMAL SALINE SOLUTION , On: 21-Apr-2017 Intent 1000 CC (Special Coverage Comments: Site:[address] [place] [address] insyte Number of attemps:1Tolerated:wellLot/exp of NS [id number] 08/15Medication?: noMLONG, PARENT COACH Instructions Apply. 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 DO, Martha A Flu Vaccine (Quadrivalent) 10222Ag: On: 30-Nov-2016 Intent Fast DO, Martha A Fast DO, Martha A Comments: lot: [id number]: 08/14/17ite/route: L michael, IMamt: 0.5mlVIS and ABN signed when applicableMILLIE Crespo ELECTROCARDIOGRAM, COMPLETE (ECG) On: 29-Nov-2016 Intent ([id number])By: Kevin SAMUEL Martha A Kevin Comments: ekg showed normal sinus rhythym, normal axis, no acute st/t wave changes DO, Martha A INJECTION, PROLIA ([id number])By: Kevin On: 04-Nov-2016 Intent DO, Martha A Fast DO, Martha A Comments: Lot:[id number]:08/14/17Dose:0.5mLRoute:IMSite:L DltdGiven By:ZACH signed Nuclear Stress Test/Stress On: 01-Sep-2016 Intent SPECT/TreadmillBy: Fast DO, Martha A Fast DO, Martha A Aerosol Treatment ([id number])By: Kevin On: 08-Aug-2016 Intent DO, Martha A Fast DO, Martha A SCREENING DIGITAL TOMOSYNTHESIS OF On: 08-Aug-2016 Intent BREAST ([id number])By: Kevin SAMUEL Martha A Comments: end july [...] On: 09-Mar-2016 Intent Martha A Fast DO, Mratha A INJECTION, PROLIA ([id number])By: Kevin On: 26-Feb-2016 Intent DO, Martha A Fast DO, Martha A Comments: Lot:[id number]:02/13Dose:60mLRoute:sub qSite: l armGiven By:ZACH signed MRI OF BRAIN WITH AND WITHOUT On: 08-Feb-2016 Intent CONTRAST ([id number])By: Martha Brown DO Comments: try to get this week- A Kevin DO, Martha A Solu- Medrol Injection, 125mg On: 16-Dec-2015 Intent ([id number])By: Martha Brown DO A Kevin Comments: Lot:[id number]:04/2018Dose:125mgRoute:imSite:r hipGiven By:ZACH signed DO, Martha A Aerosol Treatment (14027)By: Kevin On: 16-Dec-2015 Intent DO, Martha A Fast DO, Martha A Flu Vaccine (Quadrivalent) 04514Dn: On: 30-Nov-2015 Intent Fast DO, Martha A Fast DO, Martha A Comments: Lot:[id number]:08/26/16Dose:0.5mLRoute:IMSite:L DltdGiven By:ZACH signed MRI LUMBAR SPINE W/O CONTRAST On: 01-Sep-2015 Intent ([id number])By: Farn Brown DOa A Kevin Comments: hx of spine surgery- has done pt and pain management and nsaids- getting weak ehl right DO, Martha A DEXA SCAN AXIAL SKELETON ([id number])By: On: 06-Jul-2015 Intent Kevin DO Martha A Fast DO, Martha A MAMMOGRAM, SCREENING, BOTH BREAST On: 06-Jul-2015 Intent ([id number])By: Kevin SAMUEL, Martha A Fast DO, Martha A Rocephon Injection, 1 Gm On: 06-Mar-2015 Intent ([id number])By: Kevin SAMUEL Martha A Kevin Comments: lot: [id number]: 04/27/17ite/route: RGM/IMamt: 1GVIS signed when applicableMILLIE Crespo DO, Martha A Radiology - ChestBy: Nicole KAYE, On: 09-Feb-2015 Intent Chantal Flu Vaccine (Quadrivalent) 14516Tb: On: 10-Dec-2014 Intent Fast , Martha A Fast DO, Martha A Comments: Lot #:[id number] date: 07/2015Amount given:prefilled syringeSite given:L Dltd, IMGiven by: WINNIE Hart and ABN signed ADMINISTRATION OF INFLUENZA VIRUS On: 10-Dec-2014 Intent VACCINE ([id number])By: Kevin SAMUEL, Martha A Kevin DO, Martha A BILATERAL MAMMOGRAMS ([id number])By: On: 17-Jun-2014 Intent Fast DO, Martha A Fast DO, Martha A Comments: screening FLU VAC, SPLIT, >3 YEARS, INTRAMUSC On: 02-Dec-2013 Intent ([id number])By: Martha Brown DO A Kevin Comments: Lot #:[id number] date:10/2015Amount given:0.5mlRoute: IMSite given: left deltoidGiven by: GARETT Washington DO, Debra A IMMUNIZ ADMNIN, 1 VAC, SNGL/COMBO On: 02-Dec-2013 Intent ([id number])By: Visit, Nurse CT OF RIGHT HIP WITH CONTRAST On: 30-Sep-2013 Intent ([id number])By: Kevin SAMUEL Martha A Kevin Comments: with or without contrast DO, Martha A REMOVAL OF SUTURE BY A PROVIDER On: 30-Sep-2013 Intent OTHER THAN PROVIDER WHO ORIGINALLY Comments: rozina in head, 2 removed, pt tolerated PLACED SUTURE ([id number])By: Visit, Nurse Radiology - PelvisBy: Kevin DO, On: 25-Sep-2013 Intent Martha A Kevin DO, Martha A Radiology - Hip - RightBy: Fast DO, On: 25-Sep-2013 Intent Martha A Fast DO, Martha A Comments: stat call results Radiology - Thoracic SpineBy: Fast On: 25-Sep-2013 Intent DO, Martha A Fast DO, Martha A Radiology - Forearm - RightBy: Fast On: 25-Sep-2013 Intent DO, Martha A Fast DO, Martha A Pulse Oximetry ([id number])By: Kevin SAMUEL, On: 14-May-2013 Intent Martha A Fast DO, Martha A Comments: 98 Spirometry (97803)By: Kevin SAMUEL, On: 14-May-2013 Intent Martha A [...] SPLIT, >3 YEARS, INTRAMUSC On: 28-Jan-2013 Intent (84175)By: Kevin SAMUEL Martha A Fast Comments: Lot #:[id number] date:mount given:0.5mlRoute: IMSite given: L dltdVIS and ABN signedGiven by: GARETT Washington DO Martha A IMMUNIZ ADMNIN, 1 VAC, SNGL/COMBO On: 28-Jan-2013 Intent (22303)By: Kevin DO Martha A Fast DO, Martha [...] Martha A Fast DO, Martha A Spirometry ([id number])By: Kevin SAMUEL, On: 28-May-2012 Intent Martha A Fast DO, Martha A Comments: good effort and curve mild obst Pulse Oximetry (31303)By: Kevin SAMUEL, On: 28-May-2012 Intent Martha A [...] SPLIT, >3 YEARS, INTRAMUSC On: 09-Dec-2011 Intent (21480)By: Patito Tineo Comments: Lot #[id number]-2/30/13Site-left deltoidgiven by: Angela Vincent LPN IMMUNIZ ADMNIN, 1 VAC, SNGL/COMBO On: 09-Dec-2011 Intent ([id number])By: Patito Tineo Nuclear Stress Test/Stress On: 22-Nov-2011 [...] A Comments: with 12mm tablet Pulse Oximetry (68312)By: Fast DO, On: 28-Jun-2011 Intent Martha A Fast DO, Martha A Comments: 98 Radiology - Chest- PA and LatBy: On: 28-Jun-2011 Intent Fast DO, Martha A Fast DO, Martha A Comments: stat call wet read Spirometry (48583)By: Fast DO, On: 28-Jun-2011 Intent Martha A Fast DO, Martha A Comments: good effort and curve normal Radiology - ChestBy: Fast DO, Martha On: 07-Jun-2011 Intent A Fast DO, Martha A Comments: PA/LAT (do in 1 month) Eprescribed prescriptions On: 07-Jun-2011 Intent ([id number])By: Fast DO, Martha A Fast DO, Martha A Pulse Oximetry ([id number])By: Fast DO, On: 07-Jun-2011 Intent Martha A Fast DO, Martha A Comments: 95 Radiology - Chest- PA and LatBy: On: 07-Jun-2011 Intent Fast DO, Martha A Fast DO, Martha A Comments: call wet read MAMMOGRAM, SCREENING, BOTH BREASTS On: 20-May-2011 Intent (03538)By: Fast DO, Martha A Fast DO, Martha A Ultrasound - ThyroidBy: Fast DO, On: 27-Apr-2011 Intent Martha A Fast DO, Martha A TDAP VACCINE >7 IM ([id number])By: On: 27-Apr-2011 Intent Patito Tineo Comments: 2009 FLU VAC, SPLIT, >3 YEARS, INTRAMUSC On: 21-Dec-2010 Intent (46996)By: Patito Tineo Comments: Lot #:[id number] date:mount given:0.5mlRoute: IMSite given:left deltGiven by: GARETT Washington IMMUNIZ ADMNIN, 1 VAC, SNGL/COMBO On: 21-Dec-2010 Intent (53438)By: Patito Tineo EKG (85794)By: Cynthia Torres RN On: 27-Oct-2010 Intent Comments: [...] BONE DENSITY, AXIAL SKELETON On: 04-May-2010 Intent (80451)By: Patito Tineo MAMMOGRAM, SCREENING, BOTH BREASTS On: 04-May-2010 Intent ([id number])By: Patito Tineo Clinical Breast Examination On: 04-May-2010 Intent (G0101)By: Patito Tineo Nuclear Medicine - Bone ScanBy: On: 02-Apr-2010 Intent Fast DO, Martha A Fast DO, Martha A Comments: full body- has neck pain and arthralgias and abnormal sacroiliac joint on xray-w ith focal sclerosis MAMMOGRAM, SCREENING, BOTH BREASTS On: 02-Apr-2010 Intent (79214)By: Fast DO, Martha A Fast Comments: due end of may DO, Martha A Ultrasound - ThyroidBy: Noman, On: 23-Dec-2009 Intent Patito IMMUNIZ ADMNIN, 1 VAC, SNGL/COMBO On: 23-Dec-2009 Intent (78334)By: Fast DO, Martha A Fast Comments: lot # [id number] 4Pexp- 05/[id number]-GWOMjteks-GCmwjb- 0.5ML tolerated well [facility] DO, Martha A FLU VAC, SPLIT, >3 YEARS, INTRAMUSC On: 23-Dec-2009 Intent (78120)By: Fast DO, Martha A Fast DO, Martha A Spirometry (74311)By: Kevin DO, On: 26-Aug-2009 Intent Martha A Fast DO, Martha A Comments: good effort and curve normal Pulse Oximetry ([id number])By: Kevin DO, On: 26-Aug-2009 Intent Martha A Fast DO, Martha A Comments: 99 Radiology - Chest- PA and LatBy: On: 26-Aug-2009 Intent Fast DO, Martha A Fast DO, Martha A EKG ([id number])By: Fast DO, Martha A On: 02-Jul-2009 Intent [...] Other hyperlipidemia : DISCONTINUED - LIPID PANEL (60879) Indication: Other hyperlipidemia BMI between 19-24,adult : [...] is good- she not go back [facility] as she wants to wait until [...] - did End: 05-Sep-2016 9:46 get to [facility]- supposed to see endo doesnt think thyroid right- and doesnt have ms- seeing urolgoist oct 26- - saw neuro at [facility]- - they think white matter partly migrainous- they looked at her mris - 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 Encounter Diagnosis: BMI between 19-24,adult, [...] - she saw neurologist dr howard in [place]- he did tilt table table test and [...] (300.00), Gerd (530.81), inflammatory arthritis- following with [facility] Annotation/Addendum On: 03-Oct-2011 12:00 Encounter [...] complaints- seeing pain management at [facility] has good energy level and is sleepin [...] back in 2005- same surgeon- doing at [facility]- she saw Noni who told ehr to [...] to touch-under shoulder blade- mobic not help- andrzejn- - pain pain down right arm- no [...] able to do more- and is joining [employer] to keep doing the exercises -- bp [...] Dr Gonzalez-- this person now moving to beggs- mentally the aquatherapy is helpi ng- physically [...] Breast Disease (610.2), Hip bursitis 726.5 [facility] Payers [facility] CenterZ[facility] LAW; a guarantor
--- OUTSIDE RECORDS SUMMARY | 2018-05-23 11:34 | XMS RPT_ITS | Continuity of Care Document ---
:1960 Author Organization [facility] Address [address] [facility] [address] [place] [address] Phone Care Team Providers Name Role Phone Martha Brown DO Unavailable Brinda IRVIN, Dr. Padilla Jones Unavailable Jitendra Cook MD Unavailable Alan Torres MD Unavailable Eusebio Braswell Unavailable Dr. Carlito Armstrong DO Unavailable Aristides Daily Unavailable Unavailable Dr. Matt Wilburn MD Unavailable Shahla Myers MD Unavailable [facility], [facility] Unavailable Niru Taylor Unavailable Trudi Villafana Unavailable Dr. Niru Meyer MD Unavailable Rossy IRVIN, Gato Castillo Unavailable Jay Conley Unavailable Chikis Ashley Unavailable YURIY Vernon Unavailable Unavailable Kati IRVIN, Madison Jones Unavailable Cherie Fountain Unavailable Unavailable Long RETAIL BEAUT[employer] SPECIALIST, Heather L Unavailable Unavailable Eli Tineofer Unavailable Unavailable Unavailable Unavailable Problems Name Dates [...] Gastroesophageal reflux disease without esophagitis (K21.9, 530.81) Status: Active Headache (R51, 784.0) Status: Active [...] Status: Active Impaired fasting glucose (R73.01, 790.21) Status: Active Left-sided face pain (R51, 784.0) [...] complete Status: Active Unspecified Diagnosis Status: Active Unspecified Diagnosis Status: Active Urinary frequency (R35.0, 788.41) Status: Active Vitamin D deficiency (E55.9, 268.9) Comments: chronic stable-continue present regimen Status: Active Wheezing (R06.2, 786.07) Status: Active Wheezing (R06.2, 786.07) Status: Active Medications Name Dates Details BusPIRone HCl 10 MG Oral Tablet 2 (two) Tablet tid for 90 days Quantity: 540 {Tablet} Refills: 3 Ordered:19-Dec-2017 Fast Fran SAMUELa AFoctavia SAMUEL, Martha A Start : 19-Dec-2017 Active CALCIUM, 600MG (PO Cap) 1 BID for 0 days Refills: 0 Ordered:11-Jun-2009 Mast RN, Emactive Cytomel 5 MCG Oral Tablet 1 tab Tablet qd for 90 days Quantity: 90 {QS} Refills: 3 Ordered:05-Dec-2017 Martha Brown DO, DO Martha A Start : 05-Dec-2017 Active DiazePAM 5 MG Oral Tablet 1 (one) Tablet bid for 0 days Quantity: 60 {Tablet} Refills: 0 Ordered:17-Oct-2017 Fran Brown DOa AFoctavia DO, Amrtha A Start : 17-Oct-2017 Active Comments:sixtyfaxed to BMT 06/16/17 LevoFLOXacin 500 MG Oral Tablet 1 (one) Tablet qd for 0 days Quantity: 7 {Tablet} Refills: 0 Ordered:07-Mar-2018 Fast Fran SAMUELa AFast DO, Martha A Start : 07-Mar-2018 Active Oxycodone-Acetaminophen 7.5-325 MG Oral Tablet 1 (one) Tablet q 6 hours prn for 0 days Quantity: 80 {Tablet} Refills: 0 Ordered:07-Mar-2018 Kevin SAMUELMartha AFoctavia DO Martha A Start : 07-Mar-2018 Active Comments:per pain managment PredniSONE 5 MG Oral Tablet 1 (one) Tablet qd as directed for 90 days Quantity: 90 {Tablet} Refills: 3 Ordered:05-Dec-2017 Kevin SAMUELFrana AFoctavia DO Martha A Start : 05-Dec-2017 Active PredniSONE 5 MG Oral Tablet 1 (one) Tablet qd as directed for 30 days Quantity: 40 {Tablet} Refills: 0 Ordered:05-Dec-2017 Kevin SAMUELFrana AFoctavia DO Martha A Start : 05-Dec-2017 Active Comments:take with food in am ProAir HFA 108 (90 Base) MCG/ACT Inhalation Aerosol Solution 2 (two) Aerosol Soln qid, prn for 0 days Quantity: 1 {Inhaler} Refills: 2 Ordered:07-Mar-2018 Kevin SAMUELMartha DO Martha A Start : 07-Mar-2018 Active Comments:may substitute with whichever albterol inhaler cheapest Prolia 60 MG/ML Subcutaneous Solution 1 (one) Milliliter q 6 for 0 days Quantity: 1 {Milliliter} Refills: 0 Ordered:05-Dec-2017 Kevin SAMUELMartha DO Martha A Start : 05-Dec-2017 Active Propranolol HCl 20 MG Oral Tablet bid (20 MG) Active Rosuvastatin Calcium 20 MG Oral Tablet 1 (one) Tablet qhs for 90 days Quantity: 90 {Tablet} Refills: 3 Ordered:05-Dec-2017 Kevin SAMUELMartha DO Martha A Start : 05-Dec-2017 Active Synthroid 150 MCG Oral Tablet 1 (one) Tablet daily except 1/2 tab on m,w,f, for 90 days Refills: 3 Ordered:05-Dec-2017 Kevin SAMUELMartha DO Martha A Start : 05-Dec-2017 Active Dispense as Written Comments:COLTONCOLTONCOLTON Topiramate 50 MG Oral Tablet 1 Tablet 3 tabs at night and 1 in morning for 0 days Quantity: 270 {Tablet} Refills: 3 Ordered:28-Jun-2017 Kevin Martha SAMUEL DO, Debra A Start : 28-Jun-2017 Active [...] YURIY Vernon Start : 08-Jan-2018 Active Comments:per janeagement Augmentin 875-125 MG Oral Tablet 1 (one) [...] {Tablet} Refills: 3 Ordered:07-Mar-2018 Martha Brown DO, DO Martha A Start : 07-Mar-2017 End : 07-Mar-2018 Inactive Gabapentin 100 MG Oral Capsule 3 (three) Capsule tid for 30 days Quantity: 270 {Capsule} Refills: 0 Ordered:07-Mar-2017 Martha Brown DO, DO Martha A Start : 07-Mar-2017 End : [...] 30 {Tablet} Refills: 0 Ordered:09-May-2016 Martha Brown DOoctavia Martha A Start : 09-May-2016 End : 08-Jun-2016 Inactive Comments:thirty MAXALT, 10MG (Oral Tablet) 1 (one) Tablet prn for 30 days Quantity: 10 {Tablet} Refills: 0 Ordered:02-Sep-2013 Martha Brown DOoctavia Martha A Start : 01-Jul-2013 End : 31-Jul-2013 Inactive MELATONIN, 5MG (Oral Tablet) 1 QHS for 0 days Refills: 0 Ordered:04-Jun-2010 KareemSaloni wright LPN End : 04-Jun-2010 Inactive MOBIC, 7.5MG (Oral Tablet) 1 tab qd, prn (7.5 MG) Inactive Neurontin 600 MG Oral Tablet 1 (one) Capsule Tablet bid for 0 days Quantity: 180 {Tablet} Refills: 3 Ordered:01-Sep-2016 Martha Brown DO, DO Martha A Start : 24-May-2016 End : 01-Sep-2016 Inactive NYSTATIN, 019407AUIL/ML (Mouth/Throat Suspension) 1 Suspension 5 cc 5 [...] taken as needed. This order discontinued per [facility]. LevoFLOXacin 500 MG Oral Tablet 1 (one) [...] : 25-Sep-2014 Discontinued Comments:This order discontinued per [facility]. NASONEX, 50MCG/ACT (Nasal Suspension) 2 (two) Suspension [...] hour before bed- failed omeprazole and pepcid [place] 3 1200 MG Oral Capsule 2 qd [...] WITH Contrast Result: Comments: See Note; NOTES: [facility] Imaging Services [address] [place] [address] Abdomen/Pelvis WITH Contrast MR#: [id number] Acct: [id number] Name: TITA LAW Rep #: [id number] : 1960 F 57 From: Barrera Galeana MD PCP: Martha Brown DO Status: REG CLI Study: Abdomen/Pelvis WITH Contrast Date of Exam: 02/14/18 Exam# [id number] Ordering Dr: Chikis Ashley STUDY: CT ABDOMEN [...] Barrera Galeana MD at 10:47 EST Tel [phone], Service support , CC: Martha Brown DO; Chikis Ashley MD Color Repairer: Signed 08-Jan-2018 Abdomen/Pelvis without Cont Result: Comments: See Note; NOTES: [facility] Imaging Services [address] [place] [address] Abdomen/Pelvis without Cont MR#: [id number] Acct: [id number] Name: TITA LAW Rep #: [id number] : 1960 F 57 From: Barrera Galeana MD PCP: Martha Brown DO Status: REG CLI Study: Abdomen/Pelvis without Cont Date of Exam: 01/08/18 Exam# [id number] Ordering Dr: Martha Brown TUDY: CT ABDOMEN [...] Barrera Galeana MD at 13:09 EST Tel [phone], Service support , CC: Martha Brown DO Color Repairer: Signed 30-Dec-2017 Urgent Care Visit Report Result: Comments: See Note; NOTES: [facility] [address] [place] [address] OFFICE VISIT Date of Service: 12/30/17 MR#: [id number] Acct: [id number] Name: TITA LAW Rep #: [id number] : 1960 Provider: APPLE Casiano Age/Sex: 57/F [place] [facility] Status: Signed Intake Vital Signs12/30/17 Height 5 [...] Chief Complaint: UTI symptoms. Bleeding, cramping, urgency. Detrita ils: TITA LAW, is a 57 F [...] person, oriented to place, oriented to time HENMT Head: normocephalic Ears: external ears normal, TM's [...] with hematuria 12/30/17 1245 <Electronically signed by Joshau CHIU> Date Joshua CHIU Cosigner Signature: Date (if applicable) CC: 06-Nov-2017 Brain W/WO Contrast Result: Comments: See Note; NOTES: [facility] Imaging Services [address] [place] [address] Brain W/WO Contrast MR#: [id number] Acct: [id number] Name: TITA LAW Rita Rep #: [id number] : 1960 F 57 From: Pedro Luis Akhtar MD PCP: Martha Brown DO Status: REG CLI Study: Brain W/WO Contrast Date of Exam: 11/06/17 Exam# [id number] Ordering Dr: Martha Brown DO STUDY: MRI [...] Service support , CC: Martha Brown DO Color Repairer: Signed 31-Aug-2017 SCREENING MAMM (CAD), BILAT Result: Comments: See Note; NOTES: [facility] Imaging Services [address] [place] [address] SCREENING MAMM (CAD), BILAT MR#: [id number] Acct: [id number] Name: TITA LAW Rep #: [id number] : 1960 F 57 From: Barrera Galeana MD PCP: Martha Brown DO Status: [facility] CL Study: SCREENING MAMM (CAD), BILAT Date of Exam: 08/31/17 Exam# [id number] Ordering Dr: Martha Brown DO MAMMOGRAPHY - [...] biopsy of a clini griselda suspicious abnormality. [id number] Electronically Signed: Barrera Galeana MD at 14:24 EDT Tel [phone], Service support , CC: Martha Brown DO Color Repairer: Signed 31-Aug-2017 Dexa Bone Density Study Result: Comments: See Note; NOTES: [facility] Imaging Services [address] [place] [address] Dexa Bone Density Study MR#: [id number] Acct: [id number] Name: TITA LWA Rep #: [id number] : 1960 F 57 From: Barrera Galeana MD PCP: Martha Brown DO Status: REG CLI Study: Dexa Bone Density Study Date of Exam: 08/31/17 Exam# [id number] Ordering Dr: Martha Brown DO STUDY: D [...] [employer] http://www.nof.org Electro nically Signed: Barrear Galeana MD at 15:16 EDT Tel [phone], Service support , CC: Martha Brown DO Color Repairer: Signed 27-Jul-2017 PT D/C Summary (1) Result: Comments: See Note; NOTES: [facility] Physical Therapy [address] [place] [address] Fax REHABILITATION SERVICES DISCHAR SUMMARY MR#: [id number] Acct: [id number] Name: TITA LAW Rep #: [id number] : 1960 57 From: Alan Miller PT, Cert. T, OCS Referring DrIfeanyi: Maddie Munoz Status: REG RCR Insu zafar: [facility] SELF PAY INSURANCE HP - PT D/C [...] please feel free to call me at [phone]. Thank you for the referral of this patient. Sincerely, Alan Miller PT, <Electronically signed by Alan yuan PT, Cert. MDT, OCS> 07/27/17 7742 CC: Maddie MCRAE Prebish; Martha Brown DO LISHA Signed 28-Jun-2017 Forearm 2 Views Result: Comments: See Note; NOTES: [facility] Imaging Services [address] [place] [address] Forearm 2 Views MR#: [id number] Acct: [id number] Name: TITA LAW Rep #: [id number] : 1960 F 56 From: Jam Thomas MD PCP: Martha Brown DO Status: REG CLI Study: Forearm 2 Views Date of Exam: 06/28/17 Exam# [id number] Ordering Dr: Martha Brown DO STUDY: X-RAY [...] Service support , CC: Martha Brown DO Color Repairer: Signed 28-Jun-2017 Wrist min 3 Views Result: Comments: See Note; NOTES: [facility] Imaging Services [address] [place] [address] Wrist min 3 Views MR#: [id number] Acct: [id number] Name: TITA LAW Rep #: [id number] : 1960 F 56 From: Jam Thomas MD PCP: Martha Brown DO Status: REG CLI Study: Wrist min 3 Views Date of Exam: 06/28/17 Exam# [id number] Ordering Dr: Martha Brown DO STUDY: X-RAY [...] Service support , CC: Martha Brown DO Color Repairer: Signed 28-Jun-2017 Brain/Head without Contrast Result: Comments: See Note; NOTES: [facility] Imaging Services [address] [place] [address] Brain/Head without Contrast MR#: [id number] Acct: [id number] Name: TITA LAW Rep #: [id number] : 1960 F 56 From: Krzysztof Rivera MD PCP: Martha Brown DO Status: REG CLI Study: Brain/Head without Contrast Date of Exam: 06/28/17 Exam# [id number] Ordering Dr: Martha Brown DO STUDY : [...] Service support , CC: Martha Brown DO Color Repairer: Signed 01-May-2017 Chest PA and Lateral Result: Comments: See Note; NOTES: [facility] Imaging Services [address] [facility] [place] [address] Chest PA and Lateral MR#: [id number] Acct: [id number] Name: TITA LAW Rep #: [id number] : 1960 F 56 From: Murray Palma MD PCP: Martha Brown DO Status: REG CLI Study: Chest PA and Lateral Date of Exam: 05/01/17 Exam# [id number] Ordering Dr: Martha Brown DO STUDY: X-RAY [...] MD at 17:05 EST , Service support [phone], CC: Martha Brown DO Color Repairer: Signed 15-Apr-2017 Discharge Instruction Result: Comments: See Note; NOTES: [facility] Medical Records Department [address] [place] [address] Discharge Instruction 04/15/171812 MR#: [id number] Acct: [id number] Name: TITA MONTOYA Rep #: [id number] : 1960 56 From: Dusty Dumont MD PCP: Martha Brown DO Status: REG ER ED Disposition - Plan for ED Patient: Chief Complaint: Shortness of Breath Instructions: [facility] Prescriptions: Levofloxacin [Levaquin] 500 mg PO DAILY #7 tab Referrals: Martha Brown DO [Primary Care Provider] - What to do if you have Problems For any increased pain, shortness of b reath, bleeding, nausea or vomiting, chest pain, or any unexpected problems, contact your Primary Care Provider. Call [facility] ([phone]) or report to the closest Emergency Room. Call 911 if necessary. 04/15/171813 <Electronically signed by Dusty Dumont MD> Date Dusty Dumont MD Cosigner Signature (If Indicated): Da te CC: Martha Brown DO 15-Apr-2017 Emergency Department Summary Result: Comments: See Note; NOTES: [facility] Medical Records Department [address] [place] [address] Emergency Department Summary 04/15/171810 MR#: [id number] Acct: [id number] Name: ANITITA Rep #: [id number] : 1960 56 From: Dusty Dumont MD [...] acquired pneumonia This note was generated with [employer] software. It may contain incorrect words, spelling, [...] your Primary Care Provider. Call [facility] ([phone]) or report to the closest Emergency Room. Call 911 if necessary. 04/15/171812 <Electronically signed by Art Dumont MD> Date Dusty Dumont MD Cosigner Signature (If Indicated): Date CC: Martha Brown DO 15-Apr-2017 Chest PA and Lateral Result: Comments: See Note; NOTES: [facility] Imaging Services [address] [place] [address] Chest PA and Lateral MR#: [id number] Acct: [id number] Name: TITA LAW Rep #: [id number] : 1960 F 56 From: Erasto Persaud MD PCP: Martha Brown DO Status: REG ER Study: Chest PA and Lateral Date of Exam: 04/15/17 Exam# [id number] Ordering Dr: Dusty Dumont MD STUDY: X-RAY [...] CC: Martha Brown DO; Dusty Dumont MD Color Repairer: Signed 03-Apr-2017 Inital Evaluation (1) - PT Result: Comments: See Note; NOTES: [facility] Physical Therapy [facility] [address] [place], [place] [address] Fax REHABILITATION SERVICES INITIAL EVALUATION MR#: [id number] Acct: [id number] Name: TITA LAW Rep #: [id number] : 1960 56 From: Alan Miller PT, Cert. MDT, OCS Referring Dr.: Maddie Munoz Status: REG RCR Insur ance: [facility] SELF PAY INSURANCE Patient's Visit Information TITA LAW is a 56 year old F referred to Physical Therapy by THOR Ridley TODDLER NANNY.LPREBI with a diagnosis of L-IVDD,L- STENOSIS,L-SPONDYLOPATHY,MYALGIA. Date [...] to be FAXED BACK to us at [phone] for Medicare purposes. Please let me know if there are questions or concerns regarding this plan of care. Physician Signature: Date: <Electronically signed by Alan Miller PT, Cert. PARRISH, OCS> 04/03/17 1017 CC: Maddie Brown DO LISHA Signed For Medicare only, by signing this I certify the plan of care. Physicians Signature Date 08-Mar-2017 Thyroid Result: Comments: See Note; NOTES: [facility] Imaging Services [address] [place] [address] Thyroid MR#: [id number] Acct: [id number] Name: TITA LAW Rep #: [id number] : [birth year] F 56 From: Barrera Galeana MD PCP: Martha Brown DO Status: REG CLI Study: Thyroid Date of Exam: 03/08/17 Exam# [id number] Ordering Dr: Martha Brown DO STUDY: THYROID [...] Galeana MD at 14:4 9 EST Tel [phone], Service support , CC: Martha Brown DO Color Repairer: Signed 06-Dec-2016 TXT - Blood Flow Screening Result: Comments: See Note; NOTES: [facility] Cardiovascular Services [address] [place] [address] 12/06/16 0815 MR#: [id number] Acct: [id number] Name: TITA LAW Rep #: [id number] [...] Sharif e Dictated: 12/06/16814 Date Transcribed: 12/06/162139 Color Repairer: Signed 13-Sep-2016 Stress Report Result: Comments: See Note; NOTES: [facility] Cardiovascular Services [address] [place] [address] Agnes ames MR#: [id number] Acct: [id number] Name: TITA LAW Rep #: [id number] [...] patient was injected with 32.8 mCi of Marriage [employer] Family Teacher 99m Cardiolite and subsequently stress SPECT Cardiolite [...] of 85%. This note was generated with [employer] software. It may contain incorrect words, spelling, and punctuation that were not noted in checking the not e before signing. 09/13/162053 <Electronically signed by Gato Blair MD> Date Gato Blair MD CC: Martha Brown DO; Gato Blair MD Date Dictated: 09/13/162046 Date Transcribed: 09/13/162046 Color Repairer: PM Signed 30-Aug-2016 Electroencephalogram Result: Comments: See Note; NOTES: [facility] Pulmonary Services/Neurology [address] [place] [address] MR#: [id number] Acct: [id number] Name: TITA LAW Rep #: [id number] : 1960 56 From: Jacinto Salazar MD [...] Date Dic tated: 08/29/161720 Date Transcribed: 08/29/161720 Color Repairer: ROHAN Signed 29-Aug-2016 SCREENING MAMM (CAD), BILAT Result: Comments: See Note; NOTES: [facility] Imaging Services [address] [place] [address] Verdana 4d SCREENING MAMM (CAD), BILAT MR#: [id number] Acct: [id number] Name: GINNY LAW BHAKTI Rep #: [id number] : 1960 F 56 From: Krzysztof White MD PCP: Martha Brown DO Status: REG CLI Study: SCREENING MAMM (CAD), BILAT Date of Exam: 08/29/16 Exam# [id number] Ordering Dr: Martha Brown DO MAMMOGRAPHY - [...] delay biopsy of a clinically suspicious abnormality. [id number] Electronically Signed: Dread White MD at 8:46 EDT , Service support , CC: Martha Brown DO Color Repairer: Signed 25-Aug-2016 Echocardiogram Complete Result: Comments: See Note; NOTES: [facility] Cardiovascular Services [address] [place] [address] Echo Complete 08/25/16 1207 MR#: [id number] Acct: [id number] Name: TITA LAW Rep #: [id number] : 1960 56 From: Conrado Nolasco MD Attending Dr: Martha Brown DO Status: REG CLI Ordering Dr: Martha Brown DO Date: 08/25/16 Location: [facility] Sex: F C Admitted: Reason [...] Dictated: 08/25/16 1207 Date Transcribed: 08/25/16 1318 Color Repairer: Signed 09-Aug-2016 Chest PA and Lateral Result: Comments: See Note; NOTES: [facility] Imaging Services [address] [place] [address] Verdana 4d Chest PA and Lateral MR#: [id number] Acct: [id number] Name: TITA LAW p #: [id number] : 1960 F 56 From: Dustin Villatoro DO PCP: Martha Brown DO Status: REG CLI Study: Chest PA and Lateral Date of Exam: 08/09/16 Exam# [id number] Ordering Dr: Martha Brown DO STUDY: X-RAY [...] Dustin Villatoro DO at 22:20 EDT T [phone], Service support , CC: Martha Brown DO Color Repairer: Signed 21-Jul-2016 Thyroid Result: Comments: See Note; NOTES: [facility] Imaging Services [address] [place] [address] Verdana 4d Thyroid MR#: [id number] Acct: [id number] Name: TITA LAW Rep #: [id number] : 1960 F 56 From: Quentin Inman DO PCP: Martha Brown DO Status: REG CLI Study: Thyroid Date of Exam: 07/21/16 Exam# [id number] Ordering Dr: Martha Brown DO STUDY: THYROID [...] Service support , CC: Martha Brown DO Color Repairer: Signed 23-Jun-2016 Cerv Spine 4 or 5 Views Result: Comments: See Note; NOTES: [facility] Imaging Services [address] [place] [address] Verdana 4d Cerv Spine 4 or 5 Views MR#: [id number] Acct: [id number] Name: TITA LAW Rep #: [id number] : 1960 F 55 From: Hugo Pearce MD PCP: Martha Brown DO Status: REG CLI Study: Cerv Spine 4 or 5 Views Date of Exam: 06/23/16 Exam# [id number] Ordering Dr: Martha Brown DO STUDY: X-RAY [...] Service support , CC: Martha Brown DO Color Repairer: Signed 23-Jun-2016 Cerv Spine 4 or 5 Views Result: Comments: See Note; NOTES: [facility] Imaging Services [address] [place] [address] Verdana 4d Cerv Spine 4 or 5 Views MR#: [id number] Acct: [id number] Name: TITA LAW Rep #: [id number] : 1960 F 55 From: Hugo Pearce MD PCP: Martha Brown DO Status: REG CLI Study: Cerv Spine 4 or 5 Views Date of Exam: 06/23/16 Exam# [id number] Ordering Dr: Martha Brown DO ADDENDUM by [...] at 15:59 EDT Tel , Service support [phone], 06/28/161558 Date cc: Martha Brown DO * Signed [...] 25, 2016 Electronically Signed: Hugo Ramses, at 2:24 EDT Tel , Service support , Fax CC: Martha Brown DO Color Repairer: Signed 23-Jun-2016 Chest PA and Lateral Result: Comments: See Note; NOTES: [facility] Imaging Services [address] [place] [address] Verdana 4d Chest PA and Lateral MR#: [id number] Acct: [id number] Name: TITA LAW Marnie p #: [id number] : 1960 F 55 From: Hugo Pearce MD PCP: Martha Brown DO Status: REG CLI Study: Chest PA and Lateral Date of Exam: 06/23/16 Exam# [id number] Ordering Dr: Martha Brown TUDY: X-RAY CHEST [...] Service support , CC: Martha Brown DO Color Repairer: Signed 02-Jun-2016 Abdomen WITH IV Contrast Result: Comments: See Note; NOTES: [facility] Imaging Services [address] [place] [address] Verdana 4d Abdomen WITH IV Contrast MR#: [id number] Acct: [id number] Name: ANIMANDYSAVANNAH Estrada Rep #: [id number] : 1960 F 55 From: Isela Wright MD PCP: Martha Brown DO Status: REG CLI Study: Abdomen WITH IV Contrast Date of Exam: 06/02/16 Exam# [id number] Ordering Dr: Martha Brown TUDY: CT ABDOMEN [...] MD at 7:28 EDT , Service support [phone], CC: Martha Brown DO Color Repairer: Signed 02-Jun-2016 Abdomen WITH IV Contrast Result: Comments: See Note; NOTES: [facility] Imaging Services [address] [place] [address] Verdana 4d Abdomen WITH IV Contrast MR#: [id number] Acct: [id number] Name: BESSY LAW Rep #: [id number] : 1960 F 55 From: Isela Wright MD PCP: Martha Brown DO Status: REG CLI Study: Abdomen WITH IV Contrast Date of Exam: 06/02/16 Exam# [id number] Ordering Dr: Martha Brown DO A DDENDUM [...] MD at 7:28 EDT , Service support [phone], Fax CC: Martha Brown DO Color Repairer: Signed 19-May-2016 Hepatobilliary Img w/Pharm Int Result: Comments: See Note; NOTES: [facility] Imaging Services [address] [place] [address] Verdana 4d Hepatobilliary Img w/Pharm Int MR#: [id number] Acct: [id number] Name: TITA LAW Rep #: [id number] : 1960 F 55 From: Mario Olivo DO PCP: Martha Brown DO Status: REG CLI Study: Hepatobilliary Img w/Pharm Int Date of Exam: 05/19/16 Exam# [id number] Ordering Dr: Carrington Brown DO CLINICAL: 55-year-old [...] at 22:51 EDT Tel , Service support [phone], CC: Martha Brown DO Color Repairer: Signed 12-May-2016 Liver Result: Comments: See Note; NOTES: [facility] Imaging Services [address] [place] [address] Vernadana 4d Liver MR#: [id number] Acct: [id number] Name: TITA LAW Rep #: [id number] : 1960 F 55 From: Barrera Galeana MD PCP: Martha Brown DO Status: REG CLI Study: Liver Date of Exam: 05/12/16 Exam# [id number] Ordering Dr: Martha Brown DO STUDY: ABDOMINAL [...] Barrera Galeana MD at 11:28 EDT Tel [phone], Service anthony pport [phone], CC: Martha Brown DO Color Repairer: Signed 20-Apr-2016 NCS and/or EMG Patient Result: Comments: See Note; NOTES: [facility] Pulmonary Services/Neurology [address] [place] [address] NCS and/or EMG Patient MR#: [id number] Acct: [id number] Name: TITA LAW Rep #: [id number] : 1960 55 From: Pardeep Read MD Referring Dr: Eusebio Braswell MD Status: REG CLI Ordering Dr: Eusebio Braswell MD Date: 04/20/16 Location: [facility] Sex: F C DATE OF SERVICE: 2016 [...] the ulnar nerve. Pardeep Read MD T: [facility] JOB: [id number] 04/20/16 1556 <Electronically signed by Pardeep Read MD> Date Pardeep Read MD CC: Martha Brown DO; Pardeep Read MD; Eusebio Braswell MD Date Dictated: 04/20/161106 Date Transcribed: 04/20/161106 Color Repairer: Signed 15-Mar-2016 Fluoro Guided Lumbar Puncture Result: Comments: See Note; NOTES: [facility] [facility] [address] [place] [address] Verdana 4d Fluoro Guided Lumbar Puncture MR#: [id number] Acct: [id number] Name: Niecy LAW Rep #: [id number] : 1960 F 55 From: Barrera Galeana MD PCP: Martha Brown DO Status: REG CLI Study: Fluoro Guided Lumbar Puncture Date of Exam: 03/15/16 Exam# [id number] Ordering Dr: Pepper Benoit PROCEDURE: Fluoroscopic guided [...] procedure were explained to the patient. The [facility] risks of bleeding, infection, and [...] Barrera Galeana MD at 10:09 EST Tel [phone], Service support [phone], CC: Pepper Barr TODDLER NANNY; Martha Brown DO Color Repairer: Signed 11-Mar-2016 Thyroid Result: Comments: See Note; NOTES: [facility] Imaging Services [address] [place] [address] Verdana 4d Thyroid MR#: [id number] Acct: [id number] Name: TITA LAW Rep #: [id number] : 1960 F 55 From: Barrera Galeana MD PCP: Martha Brown DO Status: REG CLI Study: Thyroid Date of Exam: 03/11/16 Exam# [id number] Ordering Dr: Martha Brown DO STUDY: THYROID [...] Barrera Galeana MD at 15:57 EST Tel [phone], Service support [phone], CC: Martha Brown DO Color Repairer: Signed 10-Feb-2016 Brain W/WO Contrast Result: Comments: See Note; NOTES: [facility] Imaging Services [address] [place] [address] [place] 4d Brain W/WO Contrast MR#: [id number] Acct: [id number] Name: TITA LAW Rep #: [id number] : 1960 F 55 From: Madeleine Villar MD PCP: Martha Brown DO Status: REG CLI Study: Brain W/WO Contrast Date of Exam: 02/10/16 Exam# [id number] Ordering Dr: Martha Brown DO STUDY: MRI [...] MD at 23:33 EST , Service support [phone], CC: Martha Brown DO Color Repairer: Signed 25-Jan-2016 Cerv Spine 2 or 3 Views Result: Comments: See Note; NOTES: [facility] Services [address] [place] [address] Verdana 4d Cerv Spine 2 or 3 Views MR#: [id number] Acct: [id number] Name: TITA LAW Rep #: [id number] : 1960 F 55 From: Julio Cesar Soto MD PCP: Martha Brown DO Status: REG CLI Study: Cerv Spine 2 or 3 Views Date of Exam: 01/25/16 Exam# [id number] Ordering Dr: Matt Wilburn STUDY : X-RAY [...] FACR at 16:52 EST , Service support [phone], CC: MATT WILBURN; Martha Brown DO Color Repairer: Signed 25-Jan-2016 Spine Cervical (Routine) Result: Comments: See Note; NOTES: [facility] Imaging Services [address] [place] [id number] [place] [address] 4d Spine Cervical (Routine) MR#: [id number] Acct: [id number] Name: BESSY LAW Rep #: [id number] : 1960 F 55 From: Julio Cesar Soto MD PCP: Martha Brown DO Status: REG CLI Study: Spine Cervical (Routine) Date of Exam: 01/25/16 Exam# [id number] Ordering Dr: Matt Wilburn [facility] DY: MRI CERVICAL SPINE WITHOUT CONTRAST REASON [...] FACR at 15:55 EST , Service support [phone], CC: MATT Brown DO Color Repairer: Signed 31-Dec-2015 L/S Spine Bending Flex/Ext Result: Comments: See Note; NOTES: [facility] Services [address] [place] [address] [place] 4d L/S Spine Bending Flex/Ext MR#: [id number] Acct: [id number] Name: GINNY LAW Rep #: [id number] : 1960 F 55 From: Barrera Galeana MD PCP: Martha Brown DO Status: REG CLI Study: L/S Spine Bending Flex/Ext Date of Exam: 12/31/15 Exam# [id number] Ordering Dr: Carrington Wilburn STUDY: X-RAY - [...] Galeana MD 4 at 11:17 EDT Tel [phone], Service support [phone], CC: MATT WILBURN; Martha Brown DO Color Repairer: Signed 24-Dec-2015 Chest 1 View (Portable) Result: Comments: See Note; NOTES: [facility] Imaging Services [address] [place], [place] [address] [place] [address] Verdana 4d Chest 1 View (Portable) MR#: [id number] Acct: [id number] Name: ANIBESSY Sean Rep #: [id number] : 1960 F 55 From: Barrera Galeana MD PCP: Martha Brown DO Status: REG ER Study: Chest 1 View (Portable) Date of Exam: 12/24/15 Exam# [id number] Ordering Dr: Rashad Acosta MD STUDY: X-RAY [...] Barrera Galeana MD at 15:13 EDT Tel [phone], Service support [phone], CC: Martha Brown DO; Rashad Acosta MD Color Repairer: Signed 10-Oct-2015 Spine Lumbar without Contrast Result: Comments: See Note; NOTES: [facility] Services [address] [place] [address] Verdana 4d Spine Lumbar without Contrast MR#: [id number] Acct: [id number] Name: TITA LAW Rep #: [id number] : 1960 F 55 From: Quentin Inman DO PCP: Martha Brown DO Status: REG CLI Study: Spine Lumbar without Contrast Date of Exam: 10/10/15 Exam# [id number] Ordering Dr: Ruben Wilburn STUDY: CT LUMBAR [...] at 16:29 EDT Tel , Service support [phone], CC: MATT Brown DO Color Repairer: Signed 07-Oct-2015 Spine Thoracic (Routine) Result: Comments: See Note; NOTES: [facility] Imaging Services [facility] [place] [address] [place] 4d Spine Thoracic (Routine) MR#: [id number] Acct: [id number] Name: SARINA LAW IS Rep #: [id number] : 1960 F 55 From: Basil Culver MD PCP: Martha Brown DO Status: REG CLI Study: Spine Thoracic (Routine) Date of Exam: 10/07/15 Exam# [id number] Ordering Dr: MANDEEP DILLON MD STUDY: MRI [...] at 16:32 EDT Tel , Service support [phone], CC: Martha Brown DO; MANDEEP DILLON MD Color Repairer: Signed 29-Sep-2015 ELECTROCARDIOGRAM, COMPLETE (ECG) (65449) Comments: ekg showed normal sinus rhythym, normal axis, no acute st/t wave changes Result: [MEASUREMENTS ANALYSIS] Date of Test: 09/29/2015 10:02:56; Heart Rate: 70; VA Interval: 158; QRS: 90; QT Interval: 396; Corrected QT Interval (QTc): 413; P Wave [place]: 73; QRS Wave [place]: 71; T Wave [place]: 67; Blood Pressure: 110/70 [ECG DIAGNOSTIC STATEMENTS] Date of Test: 09/29/2015 10:02:56; Summary: Sinus Rhythm WITHIN NORMAL LIMITS 03-Sep-2015 Spine Lumbar (Routine) Result: Comments: See Note; NOTES: [facility] Services [address] [place] [address] Verdana 4d Spine Lumbar (Routine) MR#: [id number] Acct: [id number] Name: TITA DUEÑAS Rep #: [id number] : 1960 F 55 From: Julio Cesar Soto MD PCP: Martha Brown DO Status: REG CLI Study: Spine Lumbar (Routine) Date of Exam: 09/03/15 Exam# [id number] Ordering Dr: Martha Brown DO STUDY: MRI [...] FACR at 11:54 EDT , Service support [phone], CC: Martha Brown DO Color Repairer: Signed 27-Aug-2015 Bilat Scrn Digital AND CAD Result: Comments: See Note; NOTES: [facility] Imaging Services [address] [place] [address] Verdana 4d Bilat Scrn Digital AND CAD MR#: [id number] Acct: [id number] Name: TITA LAW Rep #: [id number] : 1960 F 55 From: Barrera Galeana MD PCP: Martha Brown DO Status: REG CLI Study: Bilat Scrn Digital AND CAD Date of Exam: 08/27/15 Exam# [id number] Ever rocha Dr: Martha Brown DO MAMMOGRAPHY [...] delay biopsy of a clinically suspicious abnormality. [id number] Electronically Signed: Barrera Galeana MD a t 8:51 EDT Tel [phone], Service support [phone], CC: Martha Brown DO Color Repairer: Signed 27-Aug-2015 Dexa Bone Density Study (HP) Result: Comments: See Note; NOTES: [facility] Services [address] [place] [address] Ver[place] 4d Dexa Bone Density Study (HP) MR#: [id number] Acct: [id number] Name : TITA LAW Rep #: [id number] : 1960 F 55 From: Barrera Galeana MD PCP: Martha Brown DO Status: REG CLI Study: Dexa Bone Density Study (HP) Date of Exam: 08/27/15 Exam# [id number] Or bernardo Dr: Martha Brown DO STUDY: [...] Barrera Galeana MD at 14:42 EDT Tel [phone], Service support [phone], CC: Martha Brown DO Color Repairer: Signed 27-Aug-2015 Hip 2-3 Views with Pelvis Result: Comments: See Note; NOTES: [facility] Services [address] [place] [address] Verda 4d Hip 2-3 Views with Pelvis MR#: [id number] Acct: [id number] Name: TITA AMBROCIO Rep #: [id number] : 1960 F 55 From: Murray Palma MD PCP: Martha Brown DO Status: REG CLI Study: Hip 2-3 Views with Pelvis Date of Exam: 08/27/15 Exam# [id number] Ordering Dr: Martha Johnson DO STUDY: X-RAY [...] MD at 16:31 EDT , Service support [phone], CC: Martha Brown DO Color Repairer: Signed 09-Feb-2015 Chest PA and Lateral Result: Comments: See Note; NOTES: [facility] Services [address] [place] [address] Verda 4d Chest PA and Lateral MR#: [id number] Acct: [id number] Name: TITA MCLEAN Rep #: [id number] : 1960 F 54 From: Barrera Galeana MD PCP: Martha Brown DO Status: REG CLI Study: Chest PA and Lateral Date of Exam: 02/09/15 Exam# [id number] Ordering Dr: Abby Rivera STUDY: X-RAY CHEST [...] Barrera Galeana MD at 15:21 EST Tel [phone], Service support [phone], RAD/Chest PA and Lateral IMPRESSION: Hyperinflation. No acute abnormality is seen. Electronically Signed: Barrera Galeana MD at 15:21 EST Tel [phone], Service support [phone], CC: Abby Rivera; Martha Brown DO Color Repairer: Signed 30-Jun-2014 Bilkurtis Scrmeir Digital AND CAD Result: Comments: See Note; NOTES: [facility] Services [address] [place] [address] Breast Imaging Report MR#: [id number] Acct: [id number] Name: TITA LAW Rep #: [id number] : 1960 F 53 From: Barrera Galeana MD PCP: Martha Brown DO Status: REG CLI Study: Bilat Scrn Digital AND CAD Date of Exam: 06/30/14 Exam# [id number] Ordering Dr: Martha Brown DO MAMMOGRAPHY - [...] Galeana MD at 9 :06 EDT Tel [phone], Service support [phone], CC: Martha Brown DO Color Repairer: Signed 07-Oct-2013 Extremity Lower WITH Contrast Result: Comments: See Note; NOTES: [facility] Services [address] [place] [address] CAT Scan Report MR#: [id number] Acct: [id number] Name: TITA LAW Rep #: [id number] : 1960 F 53 From: Barrera Galeana MD PCP: Martha Brown DO Status: REG CLI Study: Extremity Lower WITH Contrast Date of Exam: 10/07/13 Exam# [id number] Ordering Dr: Martha Brown DO STUDY: CT [...] Barrera Galeana MD at 15:02 EDT Tel [phone], Service support , CC: Martha Brown DO Color Repairer: Signed 25-Sep-2013 Forearm 2 Views Result: Comments: See Note; NOTES: [facility] Services [address] [place] [address] Radiology Report MR#: [id number] Acct: [id number] Name: TITA LAW Rep #: [id number] : 1960 F 53 From: Barrera Galeana MD PCP: Martha Brown DO Status: REG CLI Study: Forearm 2 Views Date of Exam: 09/25/13 Exam# [id number] Ordering Dr: Martha Brown DO STUDY: X-RAY [...] Barrera Galeana MD at 16:16 EDT Tel [phone], Service support [phone], RAD/Forearm 2 Views IMPRESSION: Normal x-ray examination of the radius and ulna. Electronically Signed: Barrera Galeana MD at 16:16 EDT Tel [phone], Service support [phone], CC: Martha Brown DO Color Repairer: Signed 25-Sep-2013 Hip min 2 Views Result: Comments: See Note; NOTES: [facility] Services [address] [place] [address] Radiology Report MR#: [id number] Acct: [id number] Name: TITA LAW Rep #: [id number] : 1960 F 53 From: Barrera Galeana MD PCP: Martha Brown DO Status: REG CLI Study: Hip min 2 Views Date of Exam: 09/25/13 Exam# [id number] Ordering Dr: Martha Brown DO STUDY: X-RAY [...] Barrera Galeana MD at 16:18 EDT Tel [phone], Service support [phone], Fax CC: Martha Brown DO Color Repairer: Signed 25-Sep-2013 Pelvis 1 or 2 Views Result: Comments: See Note; NOTES: [facility] Imaging Services [address] [place] [address] Radiology Report MR#: [id number] Acct: [id number] Name: TITA LAW Rep #: [id number] : 1960 F 53 From: Khang Braun MD PCP: Martha Brown DO Status: REG CLI Study: Pelvis 1 or 2 Views Date of Exam: 09/25/13 Exam# [id number] Ordering Dr: Martha Brown DO STUDY: X-RAY [...] MD at 16:24 EDT , Service support [phone], 0063 RAD/Pelvis 1 or 2 Views IMPRESSION: Normal x-ray examination of the pelvis. Electronically Signed: Khang Braun MD at 16:24 EDT , Service support [phone], CC: Martha Brown DO Color Repairer: Signed 25-Sep-2013 Thoracic Spine 3 Views Result: Comments: See Note; NOTES: [facility] Services [address] [place] [address] Radiology Report MR#: [id number] Acct: [id number] Name: TITA LAW Rep #: [id number] : 1960 F 53 From: Barrera Galeana MD PCP: Martha Brown DO Status: REG CLI Study: Thoracic Spine 3 Views Date of Exam: 09/25/13 Exam# [id number] Ordering Dr: Martha Brown DO STUDY: X-RAY [...] Ac Galeana MD at 16:19 EDT Tel [phone], Service support [phone], RAD/Thoracic Spine 3 Views IMPRESSION: Degenerative changes. Elect ronically Signed: Barrera Galeana MD at 16:19 EDT Tel [phone], Service support [phone], CC: Martha Brown DO Color Repairer: Signed 24-Jun-2013 Bilat Scrn Digital & CAD Result: Comments: See Note; NOTES: [facility] Services [address] [place] [address] Breast Imaging Report MR#: [id number] Acct: [id number] Name: TITA LAW Rep #: [id number] : 1960 F 52 From: Barrera Galeana MD PCP: Martha Brown DO Status: REG CLI Exam# [id number] Ordering Dr: Shahla Myers MD MAMMOGRAPHY - [...] Barrera Galeana MD at 9:32 EDT Tel [phone], Service support [phone], F ax [phone] CC: Martha Vasqueza Myers MD Color Repairer: Signed 14-May-2013 Chest PA and Lateral Result: Comments: See Note; NOTES: [facility] Imaging Services [address] [place] [address] Radiology Report MR#: [id number] Acct: [id number] Name: TITA LAW Rep #: [id number] : 1960 F 52 From: Barrera Galeana MD PCP: Martha Brown DO Status: REG CLI Study: Chest PA and Lateral Date of Exam: 05/14/13 Exam# [id number] Ordering Dr: Martha Brown DO STUDY: X [...] M.D. at 14:47 EDT , Service support [phone], CC: Martha Brown DO Color Repairer: Signed Family History Unknown Family Member Name [...] kg/m2 Body Surface Area Calculated 1.76 m2 05-Lxv-662010:25 Temperature 97.9 f Comments: Method: Temporal Pulse [...] kg/m2 Body Surface Area Calculated 1.8 m2 08-Duv-449300:15 Comments: rvkqtepgri617/72, 60sitting 98/56 67standing 94/58, 78 Temperature 97.5 [...] kg/m2 Body Surface Area Calculated 1.71 m2 65-Fpk-104711:19 Temperature 97.6 f Comments: Method: Temporal Pulse [...] 155 lb Results Date Description Value Details 9-Fyv-798974:12 CBC W/Diff, Automated Comments: [facility] [address] [place], [address] Absolute Lymph 1.71 {X10_3/ul} (Normal) [...] 4.2-5.4 WBC 8.2 K/mm3 (Normal) Range: 4.4-11.0 1-Kbr-674335:12 Comprehensive Metabolic Comments: ADD TSH ON TO 0104:[id number]:LR9-6-VQhgpgaxKing[facility] [place] [address], [place], [address] Profil GAP 9 (Normal) Range: 5-15 CO2 [...] Comments: Please note revised GLUCOSE reference range eumszmvgj81/02/2018. 3-Cko-820470:12 Hemoglobin A1c Comments: [facility] [address] [place], [place], [address] HGB A1C 5.8 % (Normal) Range: 4.2-6.3 5-Fgv-543852:12 Lipid Profile Comments: ADD TSH ON TO 0104:[id number]-WXsijdnwKing's [facility] [place] [address] [place], [place], [address] VLDL 15 mg/dL (Normal) Range: 5-40 LDL [...] 200-240 mg/dL Borderline >240 mg/dL High Risk 79-Rqj-232917:56 CBC W/Diff, Automated Comments: [facility] [address] [place], [place], [id number] Absolute Lymph 1.33 {X10_3/ul} (Normal) Range: 0.83-4.51 [...] 4.2-5.4 WBC 14.0 K/mm3 (Abnormal) Range: 4.4-11.0 47-Fbv-123470:56 Comprehensive Metabolic Profil Comments: [facility] [address] [place], [place], [address] GAP 9 (Normal) Range: 5-15 CO2 26.0 [...] Comments: Please note revised GLUCOSE reference range nmmedqvfs68/02/2018. 55-Svu-773174:15 URINE ARELY CULTURE-IDENTIFICATN Comments: PATIENT NOT FASTINGPERFORMED BY: [facility] Tmasbl1832 [facility] [id number] Information: SRC:THAD (67837) Result 1 NG36 (Normal) Comments: No growth in 36 - 48 hours. Urine Culture,Comprehensive Final report (Normal) 52-Tbg-289436:01 Urinalysis, Office (67655) UA - LEUKOCYTE ESTERASE Large (Normal) UA - NITRITE Positive (Normal) URINE UROBILINGN SPRING TIMED 2 mg/dL (Normal) UA - PROTEIN 300 mg/dL (Normal) UA - PH 7 (Normal) UA - BLOOD Hemolyzed Large (Normal) UA - SPECIFIC GRAVITY 1.020 (Normal) UA - KETONES 15 mg/dL (Abnormal) UA - BILIRUBIN Large (Normal) UA - GLUCOSE Negative (Normal) 2-Irz-988294:45 Culture, Urine Comments: [facility] [address] [facility] [place], [address] CUUR See Note (Normal) Comments: [...] $ >=320 R(NF) indicates non-formulary drug at [facility]. Approval by Infectious Disease Specialist required before non-formulary drugs may be ordered and/or dispensed. 1-Vjf-449164:45 Urinalysis, Complete Comments: How was Urine Obtained? CLEAN [facility] [address] [place], [address] CA OX CRYSTAL 1+ {/hpf} [...] (Normal) CLARITY Cloudy (Normal) COLOR Yellow (Normal) 88-Kqa-866003:49 CBC (AUTO) (97274) Comments: PATIENT NOT FASTINGPERFORMED BY: [facility] SolutionsLovel[facility] CenterRekgzy[address] [facility] [id number] Platelets 303 {x10E3/uL} (Normal) Range: 150-379 RDW 14.5 % (Normal) Range: 12.3-15.4 MCHC 33.9 g/dL (Normal) Range: 31.5-35.7 MCH 32.4 pg (Normal) Range: 26.6-33.0 MCV 96 fL (Normal) Range: 79-97 Hematocrit 37.5 % (Normal) Range: 34.0-46.6 Hemoglobin 12.7 g/dL (Normal) Range: 11.1-15.9 RBC 3.92 {x10E6/uL} (Normal) Range: 3.77-5.28 WBC 7.9 {x10E3/uL} (Normal) Range: 3.4-10.8 38-Tbe-275993:49 MICROALBUMIN: CREATININE RATIO Comments: PATIENT NOT FASTINGPERFORMED BY: [facility] QiKindred Hospital at MorrisKmbzau3626 [facility] [id number] (01815) AND (13844) Alb/Creat Ratio 4.1 {mg/g_creat} (Normal) Range: 0.0-30.0 Comments: Normal: 0.0 - 30.0 Albuminuria: 31.0 - 300.0 Clinical albuminuria: >300.0 Albumin, Urine 6.7 ug/mL (Normal) Creatinine, Urine 161.5 mg/dL (Normal) 77-Fdd-952735:49 METABOLIC PANEL, COMPREHENSIVE Comments: PATIENT NOT FASTINGPERFORMED BY: JUAN LUIS [facility] Krxohd3825 [facility] [id number]; appt 12/05 (94793) ALT (SGPT) 14 [iU]/L (Normal) Range: 0-32 [...] 6-24 Glucose 94 mg/dL (Normal) Range: 65-99 2-Oqb-891748:22 CBC W/Diff, Automated Comments: [facility] [address] [place], [address] Absolute Lymph 1.79 {X10_3/ul} (Normal) [...] 4.2-5.4 WBC 6.3 K/mm3 (Normal) Range: 4.4-11.0 6-Liw-668914:22 Comprehensive Metabolic Profil Comments: [facility] [address] [place], [address] GAP 8 (Normal) Range: 5-15 CO2 25.0 [...] Please note revised GLUCOSE reference range /02/2018. 9-Vmc-117427:22 CRP Comments: [address] [place], [place], [address] C-REACTIVE PROT < 2.90 mg/L (Normal) Range: 0.0-3.0 Comments: C-Reactive Protein (CRP) provides useful information for thediagnosis, therapy and monitoring of inflammatory processesand associated diseases. For the evaluation of Relative Riskfor Cardiovascular Dise ase, a High Sensitivity CRP (HSCRP)should be ordered. 1-Dfe-600576:22 Erythrocyte Sed Rate Comments: [address] [place], [place], [address] SED RATE 3 mm/h (Normal) Range: 0-30 1-Hnf-014185:22 Hemoglobin A1c Comments: [address] [place], [place], [address] HGB A1C 5.7 % (Normal) Range: 4.2-6.3 4-Rcy-883888:22 Lipid Profile Comments: [address] [place], [place], [address] VLDL 21 mg/dL (Normal) Range: 5-40 LDL [...] 200-240 mg/dL Borderline >240 mg/dL High Risk 6-Ony-356683:22 Vitamin D,25 Hydroxy Comments: [facility] [address] [place], [place], [address] Vitamin D 25-OH 36.0 ng/mL (Normal) Range: 29.95-100.01 Comments: Vitamin D 25(OH) Status Range Deficiency <20 ng/mL (50nmol/L) Insuffciency 20 - 30 ng/mL (50 - 75 nmol/L) Sufficiency 30 - 100 ng/mL (75 - 250 nmol/L) Toxicity >100 ng/mL (>250 nmol/L) 79-Ysw-985464:37 CBC W/Diff, Automated Comments: [facility] [address] [facility] [address] [place], [place], [address] ; appt 5/2 Absolute Lymph 2.05 {X10_3/ul} [...] 4.2-5.4 WBC 5.5 K/mm3 (Normal) Range: 4.4-11.0 37-Pxm-316607:37 Comprehensive Metabolic Profil Comments: [facility] [address] [place], [address] GAP 8 (Normal) Range: 5-15 CO2 24.0 [...] Comments: Please note revised GLUCOSE reference range vfjzkwnei05/02/2018. 67-Gwf-669518:37 Hemoglobin A1c Comments: [facility] [address] [place], [address] HGB A1C 5.9 % (Normal) Range: 4.2-6.3 95-Lej-574678:37 Lipid Profile Comments: [facility] [address] [place] [place], [address] VLDL 16 mg/dL (Normal) Range: 5-40 LDL [...] 200-240 mg/dL Borderline >240 mg/dL High Risk 68-Tmn-963458:06 METABOLIC PANEL, COMPREHENSIVE Comments: PATIENT NOT FASTINGPERFORMED BY: LabCoLovelace Medical CenterPxpvzv3529 [facility] [id number] (42781) ALT (SGPT) 19 [iU]/L (Normal) Range: 0-32 [...] Glucose, Serum 84 mg/dL (Normal) Range: 65-99 21-Ocr-636482:26 CBC W/Diff, Automated Comments: [facility] [address] [place], [place], [address] ; patient coming in today Absolute Lymph [...] 4.2-5.4 WBC 10.1 K/mm3 (Normal) Range: 4.4-11.0 78-Lit-265347:26 EBV Acute Prof IgG / IgM Comments: [facility] (refer to report for specific site)refer to report for address and phone number INTERPRETATION Comment (Normal) Comments: EBV Interpretation ChartInterpretation EBV-IgM EA(D)-IgG VCA-IgG EBNA-IgGEBV Seronegative - - - -Early Phase + - - -Acute Primary + +or- + -InfectionConvalescence/Past - +or- + +InfectionReactivated +or- + + +Infection + Antibody Present - Antibody Ab sentPerformed at: [address] [id number] Director: Sean Daniel PhD, Phone: [phone] EB-NAg [id number] > 600.0 U/mL (Abnormal) Range: 0.0-17.9 Comments: Negative <18.0 Equivocal 18.0 - 21.9 Positive >21.9 EB-VCA [id number] 226.0 U/mL (Abnormal) Range: 0.0-17.9 Comments: Negative <18.0 Equivocal 18.0 - 21.9 Positive >21.9 EB-EA IgG 55243 49.1 U/mL (Abnormal) Range: 0.0-8.9 Comments: Hepatitis A, Hepatitis C and HIV antibodies may cross-reactwith this assay. Negative < 9.0 Equivocal 9.0 - 10.9 Positive >10.9 EB-VCA [id number] < 36.0 U/mL (Normal) Range: 0.0-35.9 Comments: Negative <36.0 Equivocal 36.0 - 43.9 Positive >43.9 98-Cnf-070423:37 Basic Metabolic Profile (BMP) Comments: [facility] [address] [place], [place], [address] GAP 8 (Normal) Range: 5-15 CO2 23.0 [...] A.D.A. criteria.Please note revised GLUCOSE reference range fxlowdmck95/02/2018. 75-Jvr-982484:37 CBC W/Diff, Automated Comments: [facility] [address] [place], [place], [address] Absolute Lymph 2.00 {X10_3/ul} (Normal) Range: 0.83-4.51 [...] 4.2-5.4 WBC 8.8 K/mm3 (Normal) Range: 4.4-11.0 10-Kln-296219:30 CBC With Differential/Platelet Comments: PERFORMED BY: [facility]CoKind[facility] MorrisTppbqf8518 [facility] [id number] Information: ARVIP PATIENT - NURSE Immature Grans (Abs) 0.0 [...] 3.77-5.28 WBC 6.8 {x10E3/uL} (Normal) Range: 3.4-10.8 89-Phf-995532:30 Comp. Metabolic Panel (14) Comments: PERFORMED BY: [facility]6370 [facility] [id number]; can review at upcoming appt ALT (SGPT) [...] 98 mg/dL (Normal) Range: 65-99 :21 TSH (96625) Comments: PATIENT NOT FASTINGPERFORMED BY: [facility] MorrisYcacmd3730 [facility] [id number] TSH 2.830 {uIU/mL} (Normal) Range: 0.450-4.500 :21 T3, FREE (TRIDOTHYRONINE) ([id number]) Comments: PATIENT NOT FASTINGPERFORMED BY: [facility] [facility] [id number] Triiodothyronine,Free,Serum 2.6 pg/mL (Normal) Range: 2.0-4.4 :21 T4, FREE (THYROXINE) ([id number]) Comments: PATIENT NOT FASTINGPERFORMED BY: [facility]6370 [facility] [id number] T4,Free(Direct) 1.12 ng/dL (Normal) Range: 0.82-1.77 :32 CBC W/Diff, Automated Comments: [facility] [address] [place], [place], [address] Absolute Lymph 3.84 {X10_3/ul} (Normal) Range: 0.83-4.51 [...] Range: 4.4-11.0 :32 Comprehensive Metabolic Profil Comments: [facility] [address] [place], [place], [address] ; non-emergent till next weeks apt GAP [...] (Normal) Range: 70-110 :32 Hemoglobin A1c Comments: [facility] [address] [place], [place], [address] HGB A1C 6.2 % (Normal) Range: 4.2-6.3 :32 Lipid Profile Comments: [facility] [address] [place], [place], [address] VLDL 19 mg/dL (Normal) Range: 5-40 LDL [...] High Risk :36 CBC W/Diff, Automated Comments: [facility] [address] [place], [place], [address] Absolute Lymph 2.01 {X10_3/ul} (Normal) Range: 0.83-4.51 [...] 4.2-5.4 WBC 8.0 K/mm3 (Normal) Range: 4.4-11.0 05-Riz-89031:36 Comprehensive Metabolic Profil Comments: [facility] Lbpprsp[address]zy1319 [place], [place], [address] GAP 10 (Normal) Range: 5-15 CO2 25.0 [...] mg/dL (Normal) Range: 70-110 :36 CRP Comments: [facility] [address] [place], [address] C-REACTIVE PROT < 2.90 mg/L (Normal) Range: 0.0-3.0 Comments: C-Reactive Protein (CRP) provides useful information for thediagnosis, therapy and monitoring of inflammatory processesand associated diseases. For the evaluation of Relative Riskfor Cardiovascular Dise ase, a High Sensitivity CRP (HSCRP)should be ordered. :36 Culture, Urine Comments: [address] [place], [address] CUUR See Note (Normal) Comments: Urine CultureCOLONY COUNT 400 CFU/ML Below infection level. ORGANISM 1: GNR Poss Pseudomonas spColony Count <1000 :36 Erythrocyte Sed Rate Comments: [address] [place], [address] SED RATE 5 mm/h (Normal) Range: 0-30 :36 Free T3 Comments: [address] [place], [address] FREE T3 2.4 pg/mL (Normal) Range: 2.18-3.98 :36 Rheumatoid Factor Comments: [address] [place], [address] RHEUMATOID FAC < 10.0 {IU/mL} (Normal) :36 T4 Free Direct Comments: [facility] [address] [place], [address] T4 FREE DIRECT 1.09 ng/dL (Normal) Range: 0.76-1.46 :36 Thyroid Stim Hormone (TSH) Comments: [facility] [address] [place], [address] TSH 0.08 {uIU/mL} (Abnormal) Range: 0.358-3.74 :36 Uric Acid Comments: [facility] [address] [place], [address] URIC 3.6 mg/dL (Normal) Range: 2.6-6.0 Comments: The drugs N-Acetylcysteine and Metamizole may falsely deressthis assay. 50-Osz-13944:30 URINE ARELY CULTURE-SPRING COL Comments: PERFORMED BY: [employer] [place] [facility] 3-D Display for SmartphonesAtrium Health Huntersville [id number] Information: SRC:UR COUNT (87320) Result 1 MUG (Normal) Comments: Mixed urogenital flora1,000 Colonies/mL Urine Culture,Comprehensive Final report (Normal) 88-Jwf-052170:20 Urinalysis, Office (70754) UA - LEUKOCYTE ESTERASE Negative (Normal) UA - NITRITE Negative (Normal) URINE UROBILINGN SPRING TIMED Normal mg/dL (Normal) UA - PROTEIN Negative mg/dL (Normal) UA - PH 7 (Normal) UA - BLOOD Negative (Normal) UA - SPECIFIC GRAVITY 1.015 (Normal) UA - KETONES Negative mg/dL (Normal) UA - BILIRUBIN Negative (Normal) UA - GLUCOSE Negative (Normal) 8-Pol-839192:52 ARELY CULTURE-OTHER (52204) Comments: PATIENT NOT FASTINGPERFORMED BY: [employer] [facility] [employer] [facility] [id number] Information: THROAT SRC:TH Result 1 RRF (Normal) Comments: Routine respiratory kaylene Upper Respiratory Culture Final report (Normal) 0-Wbm-924469:07 Rapid Strep Test, Office (77951) Rapid Strep Test, Negative (Normal) Office 40-Gvl-544337:2 Magnesium, Serum 2.0 mg/dL (Normal) Comments: PATIENT NOT FASTINGPERFORMED BY: [facility] Asmuof0726 [facility] [id number] Information: SRC:UC 1 Range: 1.6-2.3 88-Mop-351288:21 Microscopic Examination Comments: PATIENT NOT FASTINGPERFORMED BY: [facility] Bsoylv5008 [facility] [id number] BY: [address] [id number] Bacteria None seen (Normal) Epithelial Cells (non None seen {/hpf} Range: 0 - 10 renal) (Normal) RBC 0-2 {/hpf} Range: 0 - 2 (Normal) WBC 0-5 {/hpf} Range: 0 - 5 (Normal) Sodium, Urine <20 mmol/L Comments: PATIENT NOT FASTINGPERFORMED BY: [facility] Lqgwir2183 [facility] [id number] BY: [address] [id number] 4:21 (Normal) Written Authorization WAR (Normal) Comments: PATIENT NOT FASTINGPERFORMED BY: [facility]6370 [facility] [id number] 4:21 Comments: Written Authorization Received.Authorization received from YURIY VERNON LPN [id number] by Tg Stewart 22-Cdj-885276:21 URINE ARELY CULTURE-IDENTIFICATN Comments: PATIENT NOT FASTINGPERFORMED BY: [facility] Nvvjip9880 [facility] [id number] BY: [address] [id number] (73897) Result 1 NG36 (Normal) Comments: No growth in 36 - 48 hours. Urine Culture,Comprehensive Final report (Normal) 68-Dup-113898:21 URINALYSIS, W/ MICRO Comments: PATIENT NOT FASTINGPERFORMED BY: [facility] Gfldtp0651 [facility] [id number] BY: [facility] [id number] Information: SRC: (60763) Microscopic Examination See below: (Normal) Comments: Microscopic was indicated and was performed. Microscopic Examination MICRON (Normal) Comments: Microscopic follows if indicated. Nitrite, Urine Negative (Normal) Urobilinogen,Semi-Qn 0.2 mg/dL (Normal) Range: 0.2-1.0 Bilirubin Negative (Normal) Occult Blood Negative (Normal) Ketones Negative (Normal) Glucose Negative (Normal) Protein Negative (Normal) WBC Esterase Negative (Normal) Appearance Clear (Normal) Urine-Color Yellow (Normal) pH 7.0 (Normal) Range: 5.0-7.5 Specific [place] 1.007 (Normal) Range: 1.005-1.030 81-Uwx-477550:21 OSMOLALITY URINE (34060) Comments: PATIENT NOT FASTINGPERFORMED BY: [employer] Lsbakn5534 [facility] [id number] BY: [employer] [id number] Osmolality, Urine 98 {mOsmol/kg} (Normal) Comments: 24 hr : 300 - 900 Random: 50 - 1400 After 12hr fluid restriction: >850 77-Ude-956043:21 OSMOLALITY BLOOD (09930) Comments: PATIENT NOT FASTINGPERFORMED BY: [employer] Innovative SolutionsRandy [place] 9173270 [facility] [id number] BY: [employer] [id number] Osmolality 265 {mOsmol/kg} (Abnormal) Range: 275-295 54-Caq-028959:21 SODIUM SERUM (32969) Comments: PATIENT NOT FASTINGPERFORMED BY: [employer] [id number] BY: [address] [id number] Sodium, Serum 132 mmol/L (Abnormal) Range: 134-144 69-Txj-991239:15 Comprehensive Metabolic Profil Comments: [facility] [address] [place], [address] GAP 9 (Normal) Range: 5-15 CO2 25.0 [...] 7-18 GLU 86 mg/dL (Normal) Range: 70-110 97-Eou-515183:15 Free T3 Comments: [address] [place], [place], [address] FREE T3 2.3 pg/mL (Normal) Range: 2.18-3.98 39-Nje-399652:15 Phosphorus Comments: [address] [place], [address] PHOS 2.9 mg/dL (Normal) Range: 2.5-4.9 33-Aob-272320:15 PTH,INTACT Comments: [address] [place], [place], [address] PTH,Intact 35 pg/mL (Normal) Range: 14-72 57-Ozl-874658:15 T4 Free Direct Comments: [facility] As[address]lp[address] [place], [address] T4 FREE DIRECT 1.06 ng/dL (Normal) Range: 0.76-1.46 45-Vdx-236079:15 Thyroid Stim Hormone (TSH) Comments: [facility] Rkpmkfdtqk75[address] [place], [address] TSH 5.47 {uIU/mL} (Abnormal) Range: 0.358-3.74 93-Grr-205593:15 Vitamin D,25 Hydroxy Comments: [facility] Ifarrakldg8147 [place], [id number] Vitamin D 25-OH 38.0 ng/mL (Normal) Comments: Vitamin D 25(OH) Status Range Deficiency <20 ng/mL (50nmol/L) Insuffciency 20 - 30 ng/mL (50 - 75 nmol/L) Sufficiency 30 - 100 ng/mL (75 - 250 nmol/L) Toxicity >100 ng/mL (>250 nmol/L) 2-Pns-056766:31 Comprehensive Metabolic Profil Comments: [facility] Vpfjobkbtv3823 [place], [address] GAP 11 (Normal) Range: 5-15 CO2 24.0 [...] 7-18 GLU 96 mg/dL (Normal) Range: 70-110 6-Bqg-123245:31 Free T3 Comments: [facility] [address] [place], [address] FREE T3 2.3 pg/mL (Normal) Range: 2.18-3.98 5-Vbc-880975:31 Hemoglobin A1c Comments: [facility] Num[address] [place], [place], [address] HGB A1C 5.7 % (Normal) Range: 4.2-6.3 9-Mrs-259329:31 Lipid Profile Comments: [facility] [address] [place], [place], [address] VLDL 19 mg/dL (Normal) Range: 5-40 LDL [...] 200-240 mg/dL Borderline >240 mg/dL High Risk 9-Ghy-220636:31 Microalb:Creat Ratio,Random UR Comments: [facility] [address] [place], [address] MALB:CREAT 5.4 {mg/g_CRE} (Normal) MICROALBUMIN,UR 6.7 mg/L (Normal) UR CREAT 124.00 mg/dL (Normal) :31 T4 Free Direct Comments: [facility] [address] [place], [address] T4 FREE DIRECT 0.70 ng/dL (Abnormal) Range: 0.76-1.46 :31 Thyroid Stim Hormone (TSH) Comments: [facility] [address] [place], [place], [address] TSH 4.87 {uIU/mL} (Abnormal) Range: 0.358-3.74 0-Mzb-314300:49 [facility] [employer], Blocking Comments: [facility] (refer to report for specific site)refer to report for address and phone number [facility] REC 09392 19 % (Normal) Range: 0-25 Comments: Negative: 0 - 25 Borderline: 26 - 30 Positive: >30Results for this test are for research purposesonly by the assay's [facility]. The performancecharacteristics of this product have not beenestablished. Results should not be used as adiagnostic procedure without confirmation of thediagnosis by another medically establishe ddiagnostic product or procedure.Performed at: [address] [id number] Director: Eusebio Live MD, Phone: [phone] :[phone] Lyme Antibodies,W Blot Comments: [facility] (refer [...] positivity are those recommended byCDC/ASTPHLD. p23=Osp C, g30=azhmngijnVafl:Sera from individuals with the following may cross [...] Ab Absent (Normal) P93 Ab Absent (Normal) 04-Vau-53401:39 Acid Fast Bact Cult/Sm Comments: [facility] [address] [place], [address] AFBCS See Note Comments: AFB Smear/Fluor TESTING PERFORMED AT [facility]. ORIGINAL REPORT ON FILE IN LAB CONTAINS ADDITIONAL TEST SITE INFORMATION. (Normal) Smear, Acid Fast NO ACID-FAST BACILLI OBSERVED ON SMEAR. AFB Cult TESTING PERFORMED AT [facility]. ORIGIN AL REPORT ON FILE IN LAB CONTAINS ADDITIONAL TEST SITE INFORMATION. Culture, Acid Fast NO ACID-FAST BACILLI ISOLATED AFTER 6 WEEKS. :39 Body Fluid Cell Count+Diff Comments: Specimen Source: [facility] Lbrztdheaf8172 [facility] [place], [address] PATH COMM/BF May follow (Normal) [...] Body Fluid / CSF Comments: Specimen Source: [facility] [address] [place], [place], [address] CYTOLOGY,BF/CSF SEE PATHOLOGY REPORT Comments: Specimen submitted to Anatomical Pathology Department fortesting. (Normal) :39 CYTOSPIN ON FLUID See Note (Normal) Comments: [facility] Oergcjgkiz6357 [facility] [address]. [place], [place], [address] Comments: Patient: TITA LAW : 1960 (55/F) Acct Num: [id number] Phys: Pepper Barr NP Unit Num: [id number] Loc: RAD Specimen: [id number] Received: 03/15/16 - 1239 Spec Type: CYSPIN FL TISSUES TISSUES: CYTOLOGY GROSS Received is 3 ml of clear, colorless fluid labeled with the patient's name and and designated per the requisition as CSF. Submitted f or cytology preparation. 03/15/16 TC:4 CPT: 81640 CYTOLOGY STUDY Slides are reviewed. DIAGNOSIS CYTOLOGY Cerebrospinal fluid (cytospins): The specimen is acellular. SJ:tiffanie 7 HEADER OPERATION: Lumbar puncture PRE-OP DIAGNOSIS: Rule out MS TISSUE SUBMITTED: Cerebrospinal fluid Signed Christian Holt 03/16/16 <signature on file> 74-Wjf-00248:39 Glucose Spinal Fluid Comments: Comments: PROTEIN ELCTRO-CSF LC#[id number] Source? [facility] [address] [place], [place], [address] GLU SPINAL FLD 57 mg/dL (Normal) Range: 40-75 62-Ojh-61338:39 Miscellaneous Lab Procedure Comments: Comments: PROTEIN ELCTRO- CSF LC#[id number](s) Ordered: PROTEIN ELCTRO-CSF LC#[id number] [facility] Rkaotcqlpl6987 [facility] HospitalIfeanyi [place], [place], [address] MISC Comments: TEST RESULT UNITS REFERENCE INTERVALProtein Electrophoresis, CSFProtein, Total, CSF 36.7 mg/dL 0.0 - 44.0Pre- Albumin (CSF) 2.6 % 2.2 - 7.1Albumin LAB (Normal) (CSF) 68.5 % 56.8 - 76.3Qvifs-6-Kfsurpuk CSF 3.9 % 1.1 - 6.0Kvbkv-3-Vwfufjhj CSF 4.6 % 3.0 - 12.6Beta Globulin (CSF) 15.0 % 7 TEST .3 - 17.9Gamma Globulin (CSF) 5.5 % 3.0 - 13.0Protein electrophoresis scan will follow via computer, mail,or vice president commercial bank delivery.M-Logan Not Observed % Not Observed__ TESTING PERFORMED AT [facility]. ORIGINAL REPORT ON FILE IN LAB CONTAINS ADDITIONAL TEST SITE INFORMATION. :39 Myelin Basic Protein, MBP Comments: [facility] (refer to report for specific site)refer to report for address and phone number MBP [id number] 1.8 ng/mL (Abnormal) Range: 0.0-1.2 Comments: Results for this test are for research purposes only by theassay's churner. The performance characteristics ofthis product have not been established. Results should notbe used as a diagnostic pro cedure without confirmation ofthe diagnosis by another medically established diagnosticproduct or procedure. :39 Protein Spinal Fluid Comments: Comments: PROTEIN ELCTRO-CSF #[id number] Source? [facility] C[address]ke[address]bbbd7947 [place], [place], [address] PROTEIN CSF 38.0 mg/dL (Normal) Range: 15.0-45.0 :04 IgG Index AND Synthesis Rate Comments: [facility] (refer to report for specific site)refer to [...] using IsoelectricFocusing (IEF) and immunoblotting methodology.Performed at: [address] [id number] Director: Sean Daniel PhD, Phone: [phone] OLIG BAND REF LAB (Normal) :04 Protein Electroph, S Comments: [facility] (refer to report for specific site)refer to report for address and phone number NOTE: Comment (Normal) Comments: The SPE pattern appears essentially unremarkable. Evidenceof monoclonal protein is not apparent. INTERPRETATION Comment (Normal) Comments: Protein electrophoresis scan will follow via computer,mail, or vice president commercial bank delivery. A/G RATIO 1.4 (Normal) Range: 0.7-1.7 GLOBULIN, TOTAL 2.8 g/dL (Normal) Range: 2.2-3.9 M-SPIKE g/dL (Normal) Comments: Not Observed GAMMA GLOBULIN 0.9 g/dL (Normal) Range: 0.4-1.8 BETA GLOBULIN 0.9 g/dL (Normal) Range: 0.7-1.3 ALPHA-2 GLOBUL 0.7 g/dL (Normal) Range: 0.4-1.0 ALPHA-1 GLOBUL 0.2 g/dL (Normal) Range: 0.0-0.4 ALBUMIN 3.9 g/dL (Normal) Range: 2.9-4.4 PROTEIN,TOTAL 6.7 g/dL (Normal) Range: 6.0-8.5 9-Jbe-621903:15 CBC W/Diff, Automated Comments: DR VILLAFANA ORDERED CBCD/CMPDR FAST ORDERED BMP/FT3/FT4/TSHDR TRES ORDERED CBCD/CMPDR FAST ORDERED BMP/FT3/FT4/TSHWSelect [facility] [address]rizd[address] [place], [address] Absolute Lymph 1.41 {X10_3/ul} (Normal) Range: 0.83-4.51 [...] 4.2-5.4 WBC 8.2 K/mm3 (Normal) Range: 4.4-11.0 9-Ndo-668215:15 Comprehensive Metabolic Profil Comments: DR VILLAFANA ORDERED CBCD/CMPDR FAST ORDERED BMP/FT3/FT4/TSHWSelect [facility] [address]ikhr[address] [place], [place], [address] GAP 9 (Normal) Range: 5-15 CO2 26.0 [...] 7-18 GLU 92 mg/dL (Normal) Range: 70-110 1-Rdj-378050:15 Free T3 Comments: DR VILLAFANA ORDERED CBCD/CMPDR FAST ORDERED BMP/FT3/FT4/[facility]SH[facility] [address]rmxiin[address] [place], [address] FREE T3 2.2 pg/mL (Normal) Range: 2.18-3.98 3-Hyp-970610:15 T4 Free Direct Comments: DR VILLAFANA ORDERED CBCD/CMPDR FAST ORDERED BMP/FT3/FT4/[facility] [address]tyr[address] [place], [address] T4 FREE DIRECT 0.96 ng/dL (Normal) Range: 0.76-1.46 1-Tmx-829837:15 Thyroid Stim Hormone (TSH) Comments: DR VILLAFANA ORDERED CBCD/CMPDR FAST ORDERED BMP/FT3/FT4/[facility] [address]xiyd[address] [place], [address] TSH 0.13 {uIU/mL} (Abnormal) Range: 0.358-3.74 75-Tou-642003:21 Metabolic Panel, Basic Comments: PATIENT NOT FASTINGPERFORMED BY: [facility] [id number] (95944) Calcium, Serum 9.5 mg/dL (Normal) Range: 8.7-10.2 [...] Glucose, Serum 85 mg/dL (Normal) Range: 65-99 38-Gvw-226314:21 TSH (65503) Comments: PATIENT NOT FASTINGPERFORMED BY: ToovariDublin [place] [id number] TSH 0.031 {uIU/mL} (Abnormal) Range: 0.450-4.500 :21 T3, FREE (TRIDOTHYRONINE) (57293) Comments: PATIENT NOT FASTINGPERFORMED BY: [facility]6370 [facility] [id number] Triiodothyronine,Free,Serum 3.3 pg/mL (Normal) Range: 2.0-4.4 :21 T4, FREE (THYROXINE) (36589) Comments: PATIENT NOT FASTINGPERFORMED BY: [facility]6370 [facility] [id number] T4,Free(Direct) 1.52 ng/dL (Normal) Range: 0.82-1.77 :56 CBC W/Diff, Automated Comments: [facility] [address] [facility]. [place], [place], [address] Absolute Lymph 1.43 {X10_3/ul} (Normal) Range: 0.83-4.51 [...] Range: 4.4-11.0 :56 Comprehensive Metabolic Profil Comments: [facility] [address] [place], [address] GAP 9 (Normal) Range: 5-15 CO2 26.0 [...] (Normal) Range: 70-110 :56 Hemoglobin A1c Comments: [facility] [address]ws[address] [place], [place], [address] HGB A1C 5.4 % (Normal) Range: 4.2-6.3 :56 Microalb:Creat Ratio,Random UR Comments: [facility] [address]tf[address] [place], [place], [address] MALB:CREAT Test not performed {mg/g_CRE} (Normal) MICROALBUMIN,UR [...] the [place] Food and Drug Administration.Performed at: [address] [id number] Director: Eusebio Live MD, Phone: [phone] INS RES/DIAB RK . (Normal) LDL SIZE [...] mg/dL (Abnormal) Range: 100-199 LIPIDS . (Normal) 73-Jdx-895237:26 Microscopic Examination Comments: PATIENT NOT FASTINGPERFORMED BY: [employer]6370 [facility]LabelAt[facility] Health [facility] [id number] Bacteria Few (Normal) Epithelial Cells (non renal) 0-10 {/hpf} (Normal) Range: 0 - 10 RBC 0-2 {/hpf} (Normal) Range: 0 - 2 WBC 0-5 {/hpf} (Normal) Range: 0 - 5 02-Aek-994558:26 METABOLIC PANEL, COMPREHENSIVE Comments: PATIENT NOT FASTINGPERFORMED BY: [employer]6370 NuLabelAt[facility] Health [facility] [id number] (77101) ALT (SGPT) 23 [iU]/L (Normal) Range: 0-32 [...] Glucose, Serum 84 mg/dL (Normal) Range: 65-99 51-Yhz-345291:26 URINE ARELY CULTURE-IDENTIFICATN Comments: PATIENT NOT FASTINGPERFORMED BY: [employer] Mkslqp4715 [facility] [id number] (06550) Result 1 NG36 (Normal) Comments: No growth in 36 - 48 hours. Urine Culture,Comprehensive Final report (Normal) 91-Nyu-857517:26 CBC W/AUTO DIFF WBC Comments: PATIENT NOT FASTINGPERFORMED BY: [employer] Qqwkyj7188 [facility] [id number] Information: SRC: (90938) Immature Grans (Abs) 0.0 {x10E3/uL} (Normal) Range: [...] 3.77-5.28 WBC 5.4 {x10E3/uL} (Normal) Range: 3.4-10.8 70-Olv-860414:26 URINALYSIS, W/ MICRO (80355) Comments: PATIENT NOT FASTINGPERFORMED BY: [facility]6370 [facility] [id number] Microscopic Examination See below: (Normal) Comments: Microscopic was indicated and was performed. Microscopic Examination MICRON (Normal) Comments: Microscopic follows if indicated. Nitrite, Urine Negative (Normal) Urobilinogen,Semi-Qn 0.2 mg/dL (Normal) Range: 0.2-1.0 Bilirubin Negative (Normal) Occult Blood Negative (Normal) Ketones Negative (Normal) Glucose Negative (Normal) Protein Negative (Normal) WBC Esterase Negative (Normal) Appearance Clear (Normal) Urine-Color Yellow (Normal) pH 7.5 (Normal) Range: 5.0-7.5 Specific [place] 1.005 (Normal) Range: 1.005-1.030 :53 Partial Thromboplast Time Comments: [facility] [address] [place], [place], [address] PTT 34.1 s (Normal) Range: 24.1-36.2 :53 Prothrombin Time w/INR Comments: [facility] [address]xto[address] [place], [place], [address] INR 1.1 (Normal) PROTIME 14.1 s (Normal) Range: 11.7-14.9 :43 CBC W/Diff, Automated Comments: [facility] [address] [place], [place], [address] Absolute Lymph 1.00 {X10_3/ul} (Normal) Range: 0.83-4.51 [...] 4.2-5.4 WBC 16.5 K/mm3 (Abnormal) Range: 4.4-11.0 20-Xou-044905:43 Comprehensive Metabolic Profil Comments: [facility] [address]fm[address] [place], [place], [address] GAP 11 (Normal) Range: 5-15 CO2 24.0 [...] 7-18 GLU 82 mg/dL (Normal) Range: 70-110 43-Joe-661692:43 Lactic Acid Comments: [facility] [address] [place], [place], [address] LACTIC ACID 1.5 mmol/L (Normal) Range: 0.4-2.0 5-Hna-196405:06 Metabolic Panel, Basic (10705) Comments: PATIENT NOT FASTINGPERFORMED BY: [facility] Pwqeem9[address]ado RoadDublin [place] [id number] Calcium, Serum 9.9 mg/dL (Normal) Range: 8.7-10.2 [...] Glucose, Serum 82 mg/dL (Normal) Range: 65-99 8-Pbb-982590:06 PHOSPHORUS (50250) Comments: PATIENT NOT FASTINGPERFORMED BY: [facility] Hzespu5918 [address] RoadDublin [place] [id number] Phosphorus, Serum 3.8 mg/dL (Normal) Range: 2.5-4.5 3-Tnw-754798:06 PARATHORMONE (64746) Comments: PATIENT NOT FASTINGPERFORMED BY: [facility] Ejvugo9381 [address] RoadDublin [place] [id number] PTH, Intact 30 pg/mL (Normal) Range: 15-65 0-Pld-577927:06 SPEP (12075) Comments: PATIENT NOT FASTINGPERFORMED BY: [facility] Udfwoe8200 [address] RoadDublin [place] [id number] Information: [id number] Please note: SPRCS (Normal) Comments: Protein electrophoresis scan will follow via computer, mail, orcourier delivery. A/G Ratio 1.4 (Normal) Range: 0.7-1.7 Globulin, Total 3.1 g/dL (Normal) Range: 2.2-3.9 M-Logan Not Observed g/dL (Normal) Gamma Globulin 1.1 g/dL (Normal) Range: 0.4-1.8 Beta Globulin 1.0 g/dL (Normal) Range: 0.7-1.3 Ierim-7-Abofduqe 0.8 g/dL (Normal) Range: 0.4-1.0 Phner-0-Rfzgehkk 0.3 g/dL (Normal) Range: 0.0-0.4 Albumin 4.4 g/dL (Normal) Range: 2.9-4.4 Protein, Total, Serum 7.5 g/dL (Normal) Range: 6.0-8.5 :06 UPEP (45855) Comments: PATIENT NOT FASTINGPERFORMED BY: [employer] [facility] [id number] Please note: SPRCS (Normal) Comments: Protein electrophoresis scan will follow via computer, mail, orcourier delivery. M-Logan, % Not Observed % (Normal) Gamma Globulin, U 43.5 % (Normal) Beta Globulin, U 33.9 % (Normal) Ugwoa-1-Sbkelhww, U 9.6 % (Normal) Qtgko-9-Zzxmhjfx, U 0.8 % (Normal) Albumin, U 12.1 % (Normal) Protein,Total,Urine <4.0 mg/dL (Normal) Comments: Verified by repeat analysis 6-Cvg-279127:23 URINE CALCIUM SPRING TIMED Comments: PATIENT NOT FASTINGPERFORMED BY: [employer] Jvozsk6636 [facility] [id number] Information: [id number] 24 Hour (74198) Calcium, Urine 24hr 133.5 {mg/24_hr} (Normal) Range: 100.0-300.0 Calcium, Urine 3.0 mg/dL (Normal) :08 METABOLIC PANEL, Comments: PATIENT NOT FASTINGPERFORMED BY: [employer] [facility] [id number] Information: [id number] COMPREHENSIVE (68695) ALT (SGPT) 15 [iU]/L (Normal) Range: 0-32 [...] mg/dL (Normal) Range: 65-99 :34 Urinalysis, Office (41492) UA - LEUKOCYTE ESTERASE Negative (Normal) UA [...] Comments: PATIENT NOT FASTINGPERFORMED BY: JUAN LUIS [facility] Ccdpvd4644 [facility] [id number] Information: SRC:[facility] [id number] COL COUNT) (24020) Result 1 NG36 (Normal) Comments: No growth in 36 - 48 hours. Urine Culture,Comprehensive Final report (Normal) 22-Vxx-238670:00 CBC W/Diff, Automated Comments: [facility] [address] [place], [address] Absolute Lymph 1.49 {X10_3/ul} (Normal) [...] 4.2-5.4 WBC 6.2 K/mm3 (Normal) Range: 4.4-11.0 70-Pus-895499:00 Comprehensive Metabolic Profil Comments: [facility] [address] [place], [id number] GAP 5 (Normal) Range: 5-15 CO2 28.0 [...] 7-18 GLU 93 mg/dL (Normal) Range: 70-110 30-Gjo-768940:00 Free T3 Comments: [facility] [address] [place], [place], [address] FREE T3 2.9 pg/mL (Normal) Range: 2.18-3.98 21-Yyi-883622:00 T4 Free Direct Comments: [facility] [address] [place], [place], [address] T4 FREE DIRECT 1.07 ng/dL (Normal) Range: 0.76-1.46 31-Wah-978838:00 Thyroid Stim Hormone (TSH) Comments: [facility] [address] [place], [place], [address] TSH 0.16 {uIU/mL} (Abnormal) Range: 0.358-3.74 0-Vdc-732243:38 HGB A1C (27356) Comments: PATIENT NOT FASTINGPERFORMED BY: [facility]6370 [facility] [id number] Information: [id number] Hemoglobin A1c 5.7 % (Abnormal) Range: 4.8-5.6 Comments: . Pre-diabetes: 5.7 - 6.4 Diabetes: >6.4 Glycemic control for adults with diabetes: <7.0 David Arce BMP8 SPRCS (Normal) Comments: A courtesy copy of this report has been sent [facility].PATIENT WAS FASTINGPERFORMED BY: [place] [id number] [facility] [id number] :51 Default Comments: A hand-written panel/profile was received from your office. Inaccordance with the [facility] Ambiguous Test Code Policy dated August2002, we have completed your order by using the closest currentlyor formerl y recognized AMA panel. We have assigned Basic MetabolicPanel (8), Test Code #234743 to this request. If this is not thetesting you wished to receive on this specimen, please [facility] Client [facility]quiry/Technical Services Department to clarify thetest order. We appreciate your business. David Arce LP Default SPRCS (Normal) Comments: A courtesy copy of this report has been sent [facility].PATIENT WAS FASTINGPERFORMED BY: [facility]6370 [facility] [id number] :51 Comments: A hand-written panel/profile was received from your office. Inaccordance with the [facility] Ambiguous Test Code Policy dated August2002, we have completed your order by using the closest currentlyor formerl y recognized AMA panel. We have assigned Lipid Panel,Test Code #333908 to this request. If this is not the testing youwished to receive on this specimen, please contact the [employer] QiClient Inquiry/Techni alberto Services Department to clarify the testorder. We appreciate your business. :51 CBC With Differential/Platelet Comments: A courtesy copy of this report has been sent [facility].PATIENT WAS FASTINGPERFORMED BY: [place] [id number] [facility] [id number] Immature Grans (Abs) 0.0 {x10E3/uL} (Normal) Range: [...] 3.77-5.28 WBC 4.8 {x10E3/uL} (Normal) Range: 3.4-10.8 52-Fru-789910:51 Comp. Metabolic Panel (14) Comments: A courtesy copy of this report has been sent to[facility].PATIENT WAS FASTINGPERFORMED BY: [facility] Msaigg9514 [facility] [id number] ALT (SGPT) 14 [iU]/L (Normal) Range: 0-32 [...] Glucose, Serum 101 mg/dL (Abnormal) Range: 65-99 64-Wng-020218:51 Lipid Panel Comments: A courtesy copy of this report has been sent [facility].PATIENT WAS FASTINGPERFORMED BY: [id number] [facility] [id number]; non-emergent till apt LDL Cholesterol Calc 120 [...] copy of this report has been sent [facility].PATIENT WAS FASTINGPERFORMED BY: [employer] Joxpob9103 [facility] [id number] 0:51 Range: 30.0-100.0 Comments: Vitamin D deficiency has been defined by the [place] ofMedicine and an Endocrine Society practice guideline as alevel of serum 25-OH vitamin D less than 20 ng/mL (1,2).The Endocrine Society went on to further define vitamin Dinsufficiency as a level between 21 and 29 ng/mL (2).1. IOM ([place] of [employer]). 2010. Dietary reference intakes for calcium and D. [place]: The National Academies Press.2. Mateusz MF, Mary HUNTER, Enma KENDALL, et al. Evaluation, treatment, and prevention of vitamin D deficiency: an Endocrine Society clinical practice guideline. JCEM. 2010; 96(7):1911-30. 60-Jan-836395:28 Sputum Culture (95110) Comments: PATIENT NOT FASTINGPERFORMED BY: [facility] Xztopd8242 [facility] [id number] Information: [id number] Result 1 STREPN (Abnormal) Comments: Streptococcus pneumoniaeHeavy [...] S Lower Respiratory Final report Culture (Abnormal) 36-Xgh-438409:49 Free T3 Comments: Has Patient had X-rays with Contrast this admission? NIs Patient on Heparin? [facility] [address] [place], [address] FREE T3 1.9 pg/mL (Abnormal) Range: 2.18-3.98 49-Sxa-812429:49 T4 Free Direct Comments: Has Patient had X-rays with Contrast this admission? NIs Patient on Heparin? [facility] [address] [place] [address], [address] T4 FREE DIRECT 0.84 ng/dL (Normal) Range: 0.76-1.46 06-Qmt-373924:49 Thyroid Stim Hormone (TSH) Comments: Has Patient had X-rays with Contrast this admission? NIs Patient on Heparin? [facility] [address] [place] [address], [id number] TSH 0.04 {uIU/mL} (Abnormal) Range: 0.358-3.74 65-Bin-852266:43 CBC W/Diff, Automated Comments: Test performed at:[facility] [address] [place] [address] Absolute Lymph 2.39 {X10_3/ul} (Normal) Range: [...] 4.2-5.4 WBC 8.0 K/mm3 (Normal) Range: 4.4-11.0 61-Qph-060193:43 Comprehensive Metabolic Profil Comments: Test performed at:[facility] [address] [place] [address] GAP 7 (Normal) Range: 5-15 CO2 27.0 [...] 7-18 GLU 92 mg/dL (Normal) Range: 70-110 15-Veo-09082:34 Comprehensive Metabolic Profil Comments: ORDERED LIPID,CMPDR.SNEHA ORDERED TSH,HARLEEN,DHEATest performed at:[facility] U[address]vo[address]ur4874 [place] [address] GAP 11 (Normal) Range: 5-15 CO2 25.0 [...] Comments: Please note revised CREATININE reference range byzcaasos26/22/2015. BUN 6 mg/dL (Abnormal) Range: 7-18 GLU 97 mg/dL (Normal) Range: 70-110 :34 DHEA Sulfate Comments: Has Patient had Radioactive Injection for X-ray?: NTest performed at:[facility] Mfzrlmbcgy3590 [place] [address] DHEA SULF 4020 26.8 ug/dL (Abnormal) Range: 41.2-243.7 Comments: Performed at: - [facility] [id number] Director: Sean Daniel PhD, Phone: [phone] :34 Lipid Profile Comments: ORDERED LIPID,ANTONELLA ORDERED TSH,HARLEEN,DHEATest performed at:[facility] [address] [place] [address] VLDL 14 mg/dL (Normal) Range: 5-40 [...] :34 Testosterone, Serum Total Comments: Test performed at:[facility] [address] [place] [address] Testosterone 20 ng/dL (Normal) Range: 14-76 :34 Thyroid Stim Hormone (TSH) Comments: ORDERED LIPID,ANTONELLA ORDERED TSH,HARLEEN,DHEATest performed at:[facility] [address]iw[address] [facility] [place] [address] TSH < 0.01 {uIU/mL} (Abnormal) Range: 0.358-3.74 :12 CBC W/Diff, Automated Comments: Test performed at:[facility] Twmspyoxoo59[address] [facility] [place] [address] Absolute Lymph 1.81 {X10_3/ul} (Normal) [...] :12 Comprehensive Metabolic Profil Comments: Test performed at:[facility] Hxjuqelykj[address] [facility] [place] [address] GAP 6 (Normal) Range: 5-15 [...] had Radioactive Injection for X-ray?: NTest performed at:[facility] Escsdrmmhq3850 [facility] [place] [address] DHEA SULF 4020 22.6 ug/dL (Abnormal) Range: 41.2-243.7 Comments: Performed at: - [facility] [id number] Director: Omer Stout PhD, Phone: [phone] :36 Free T3 Comments: Has Patient had X-rays with Contrast this admission? ??NIs Patient on Heparin? ??NTest performed at:[facility] [address]azq[address] [facility] [address] ??[place], [place] ??[address] FREE T3 4.7 pg/mL (Abnormal) Range: 2.18-3.98 :36 T4 Free Direct Comments: Has Patient had X-rays with Contrast this admission? NIs Patient on Heparin? NTest performed at:[facility] [address] [place] [address] T4 FREE DIRECT 1.54 ng/dL (Abnormal) Range: 0.76-1.46 :36 Thyroid Stim Hormone (TSH) Comments: Has Patient had X-rays with Contrast this admission? NIs Patient on Heparin? NTest performed at:[facility] [address] [place] [address] TSH < 0.01 {uIU/mL} (Abnormal) Range: 0.358-3.74 :36 Vitamin D,25 Hydroxy Comments: Test performed at:[facility] [address] [place] [address] Vitamin D 25-OH 34.0 ng/mL (Normal) Comments: Vitamin D 25(OH) Status Range Deficiency <20 ng/mL (50nmol/L) Insuffciency 20 - 30 ng/mL (50 - 75 nmol/L) Sufficiency 30 - 100 ng/mL (75 - 250 nmol/L) Toxicity >100 ng/mL (>250 nmol/L) :02 CBC W/Diff, Automated Comments: Test performed at:[facility] [address] [place] [address] ; non- emergent till apt [...] 4.2-5.4 WBC 6.0 K/mm3 (Normal) Range: 4.4-11.0 22-Rnx-34957:02 Comprehensive Metabolic Profil Comments: Test performed at:[facility] [address] [place], [place] [address] GAP 7 (Normal) Range: 5-15 CO2 28.0 [...] 70-110 :02 Lipid Profile Comments: Test performed at:[facility] [address]atz[address]48 [place] [address] VLDL 14 mg/dL (Normal) Range: [...] 200-240 mg/dL Borderline >240 mg/dL High Risk 04-Ccx-249607:09 CBC W/Diff, Automated Comments: Test performed at:[facility] [address] [place] [id number] ; handled by kerri Absolute Lymph 2.45 [...] 4.2-5.4 WBC 8.0 K/mm3 (Normal) Range: 4.4-11.0 81-Ntr-706090:09 Comprehensive Metabolic Profil Comments: Test performed at:[facility] [address] [place], [place] [address] ; vellenki GAP 6 (Normal) Range: 5-15 [...] CHOL 168 mg/dL (Normal) Comments: <200 mg/dL Aujkmwscl494-703 mg/dL Borderline>240 mg/dL High Risk 74-Oej-895574:51 CBCD ALC 2.36 {X10_3/ul} (Normal) Range: 0.83-4.51 [...] 4.2-5.4 WBC 8.0 K/mm3 (Normal) Range: 4.4-11.0 38-Xlx-771255:51 CMP Comments: DR VILLAFANA ORDERED CBCD CMP [...] 7-18 GLU 89 mg/dL (Normal) Range: 70-110 59-Zid-657702:51 CORTU Comments: Has Patient had Radioactive Injection for X-ray?: N tCORTU 9 ug/L (Normal) fUAGRG16 39 {ug/24_hr} (Normal) Range: 0-50 92-Izu-770585:51 DHEA 19.8 ug/dL (Abnormal) Comments: Has Patient had Radioactive Injection for X-ray?: N Range: 41.2-243.7 Comments: Performed at: [facility] [address] [id number] Director: Eusebio Live MD, Phone: [phone] at: [facility] LabCoShawn Ville [address]Hoa Director: Omer Stout PhD, Phone: [phone] 26-Jug-828002:51 FT3 2.2 pg/mL (Normal) Comments: DR VILLAFANA ORDERED CBCD CMP ONLYHas Patient had X-rays with Contrast this admission? N Range: 2.18-3.98 23-Fma-789909:51 METAU Comments: Has Patient had Radioactive Injection for X-ray?: N tMETA 40 ug/L (Normal) tMETA24 172 {ug/24_hr} (Normal) Range: 45-290 Comments: (Hypertensive) >17 years 11 months: 35 - 460 tNORM24 292 {ug/24_hr} (Normal) Range: 82-500 Comments: (Hypertensive) >17 years 11 months: 110 - 1050 tNORM 68 ug/L (Normal) 79-Jmm-124640:51 T4F 0.98 ng/dL (Normal) Comments: DR VILLAFANA ORDERED CBCD CMP ONLYHas Patient had X-rays with Contrast this admission? N Range: 0.76-1.46 75-Gin-736234:51 TSH 0.66 {uIU/mL} (Normal) Comments: DR VILLAFANA ORDERED CBCD CMP ONLYHas Patient had X-rays with Contrast this admission? N Range: 0.358-3.74 49-Agr-805112:51 VITD 51.8 mg/mL (Normal) Comments: Vitamin D 25(OH) Status RangeDeficiency <20 ng/mL (50nmol/L)Insuffciency 20 - 30 ng/mL (50 - 75 nmol/L)Sufficiency 30 - 100 ng/mL (75 - 250 nmol/L)Toxicity >100 ng/mL (>250 nmol/L) 6-Tnd-239052:01 URINE ARELY CULTURE-SPRING COL Comments: PATIENT NOT FASTINGPERFORMED BY: [facility] Idshyw7372 [facility] [id number] Information: SRC:UR [id number] COUNT ([id number]) Result 1 NG36 (Normal) Comments: No growth in 36 - 48 hours. Urine Culture,Comprehensive Final report (Normal) 4-Xgf-423298:44 Urinalysis, Office (63772) UA - LEUKOCYTE ESTERASE Negative (Normal) UA - NITRITE Negative (Normal) URINE UROBILINGN SPRING TIMED Normal mg/dL (Normal) UA - PROTEIN Negative mg/dL (Normal) UA - PH 8.5 (Normal) UA - BLOOD Negative (Normal) UA - SPECIFIC GRAVITY 1.015 (Normal) UA - KETONES Negative mg/dL (Normal) UA - BILIRUBIN Negative (Normal) UA - GLUCOSE Negative (Normal) 27-Aug-20139:00 CMP Comments: LIPID RUBI CMP TSH T4F T3F VITD DHEA GAP [...] N Range: 41.2-243.7 Comments: Performed at: - [facility] [id number] Director: Sterling Porter MD, Phone: [phone] :[phone] FT3 2.4 pg/mL (Normal) Comments: LIPID RUBI CMP TSH T4F T3F VITD DHEA Range: 2.18-3.98 27-Aug-20139:00 LIPID Comments: LIPID RUBI CMP TSH T4F [...] CHOL 235 mg/dL (Abnormal) Comments: <200 mg/dL Hrkycunqj473-405 mg/dL Borderline>240 mg/dL High Risk :00 T4F 0.98 ng/dL (Normal) Comments: LIPID CMPDRESTHER CMP TSH T4F T3F VITD DHEA Range: 0.76-1.46 :00 TSH 0.16 {uIU/mL} (Abnormal) Comments: LIPID RUBI CMP TSH T4F T3F VITD DHEA Range: 0.358-3.74 :00 VITD 56.0 mg/mL (Normal) Comments: Vitamin D 25(OH) Status RangeDeficiency <20 ng/mL (50nmol/L)Insuffciency 20 - 30 ng/mL (50 - 75 nmol/L)Sufficiency 30 - 100 ng/mL (75 - 250 nmol/L)Toxicity >100 ng/mL (>250 nmol/L) :54 OS 273 {mOsm/KG} (Abnormal) Range: 275-295 :54 [facility] 268 {mOsm/KG} (Normal) Comments: OSMOLALITY URINE REFERENCE PZZSKNSTH02-entf Urine 300 - 900 mOsm/kgRandom Urine 50 - 1400 mOsm/kgAfter 12 Hr fluid restriction >850 mOsm/kg 50-Lrw-643693:31 24HULYT Comments: ST 07/25/13 1130AM CREATININE AND SODIUM ONLYST 1130AM uCL24 63 {mmol/24h} (Abnormal) Range: 110-250 CLU 14 mmol/L (Normal) KU 15.5 mmol/L (Normal) uK24 70.1 {mmol/24h} (Normal) Range: 25-125 uNA24 72 {mmol/24h} (Normal) Range: 40-220 EMELI 16 mmol/L (Normal) uLYTV 4525 mL (Normal) 88-Vvm-594853:31 UCRE Comments: ST 07/25/13 1130AM CREATININE AND SODIUM ONLYST 1130AM UCCT 24.0 {HOURS} (Normal) UCRE24 1.2 {g/24_hr} (Normal) Range: 0.6-1.5 UCTV 4.53 L (Normal) URCREAT 26.8 mg/dL (Normal) 21-Lve-994067:30 CAU Comments: ST 07/25/13 1130AMST 07/25/131130AMComments: [id number] 24 hr sodium urine tCAU24 90.0 {mg/24_hr} (Normal) Range: 100.0-300.0 Comments: Reference Qsdih967.0 - 300.0Total volumne: 4525 ml/24hrPerformed at: [facility] LabEllen Ville [id number] Director: Sterling Porter MD, Phone: [phone] CAUR 2.1 mg/dL (Normal) 56-Jig-383451:18 CBCD ALC 2.09 {X10_3/ul} (Normal) Range: 0.83-4.51 [...] 4.2-5.4 WBC 7.0 K/mm3 (Normal) Range: 4.4-11.0 91-Mgk-809792:18 CMP Comments: Comments: [id number] 24 hr sodium urine GAP 8 (Normal) [...] 7-18 GLU 86 mg/dL (Normal) Range: 70-110 47-Hti-024282:33 BMP CO2 29.0 mmol/L (Normal) Range: 21.0-32.0 [...] N Range: 41.2-243.7 Comments: Performed at: - [address] [id number] Director: Sterling Porter MD, Phone: [phone] :31 T4F 1.03 ng/dL (Normal) Range: 0.76-1.46 [...] CHOL 176 mg/dL (Normal) Comments: <200 mg/dL Kdscdnien938-261 mg/dL Borderline>240 mg/dL High Risk :17 T4F 1.08 ng/dL (Normal) Comments: DR BROWN ORDERED CMP LIPIDDR WIETECHA ORDERED TSH T3F T4F BMP Range: 0.76-1.46 :17 TSH 0.49 {uIU/mL} (Normal) Comments: DR BROWN ORDERED CMP LIPIDDR WIETECHA ORDERED TSH T3F T4F BMP Range: 0.358-3.74 9-Xuh-094706:52 BREAST UNILATERAL Radiology See Note Comments: STUDY: [...] Galeana M.D.November 02, 2012 at 4:00:42 PM [id number] Signed GP/GP If you are the referring physician and would like to consult with theradiologist who provided this interpretation, please contact Luis Angel Quintana at [phone]. If this radiologist is un available, youwill be directed to another radiologist to assist. If you are a patient with a question regarding this report, pleasecontactyour referring physician directly. Professional Interpretation P rovided By: Moku, Phone , These documents contain legally protected [...] cancer. TECHNIQUE: Digital examin Report (Normal) ation. [facility] (MLO) andcraniocaudad (CC) views of the [...] Galeana M.D.November 02, 2012 at 3:22:08 PM [id number] Signed GP/GP If you are the referring physician and would like to consult with theradiologist who provided this interpretation, please contact Luis Angel Quintana at [phone]. If this radiologist is unavailable, youwil l be directed to another radiologist to assist. If you are a patient with a question regarding this report, pleasecontactyour referring physician directly. Professional Interpretation Provided By: Enflick, Phone , These documents contain legally protected [...] 11/02/12 1537 Sign by: Barrera Galeana MD 11-Spj-68107:00 ABDOMEN/PELVIS WITHOUT CONT Radiology Report See Note [...] Galeana M.D.September 14, 2012 at 8:22:23 AM [id number] Signed GP/GP If you are the referring physician and would like to consult with theradiologist who provided this interpretation, please contact Luis Angel Quintana at [phone]. If this radiologist is unavailable, youwill be directed to another radiologist to assist. If you are a patient with a question regarding this report, pleasecontactyour referring niecy meredithbrianajessica directly. Professional Interpretation Provided By: Moku, Phone , These documents contain legally protected [...] documents. Dictated on 09/14/12821 by Wendy IRVIN,Aureliano Mastersranscribed on 09/14/12 0824 by ITS IMPORTSign by Barrera Galeana MD on 09/14/1225 Sign by: Barrera Galeana MD 45-Sgc-153917:15 URINE ARELY CULTURE-IDENTIFICATN Comments: PATIENT NOT FASTINGPERFORMED BY: [facility] MorrisGvqlbl4173 [facility] [id number] Information: ADD [id number] ([id number]) Result 1 NG36 (Normal) Comments: No growth in 36 - 48 hours. Urine Culture,Comprehensive Final report (Normal) 01-Fgj-164894:03 Urinalysis, Office (00727) UA - BILIRUBIN Negative (Normal) UA - BLOOD Non Hemolyzed Trace (Normal) UA - GLUCOSE Negative (Normal) UA - KETONES Negative mg/dL (Normal) UA - LEUKOCYTE ESTERASE Negative (Normal) UA - NITRITE Negative (Normal) UA - PH 7.0 (Normal) UA - PROTEIN Negative mg/dL (Normal) UA - SPECIFIC GRAVITY 1.010 (Normal) URINE UROBILINGN SPRING TIMED Normal mg/dL (Normal) 36-Iya-353053:14 CBCMD ANC 3.2 3/uL (Normal) Range: 2.0-7.7 [...] CHOL 206 mg/dL (Abnormal) Comments: <200 mg/dL Xhcxstada889-202 mg/dL Borderline>240 mg/dL High Risk :14 T4F 1.17 ng/dL (Normal) Range: 0.76-1.46 :14 TSH 0.02 {uIU/mL} (Abnormal) Range: 0.358-3.74 :14 VITD 39.9 ng/mL (Normal) Comments: Vitamin D 25(OH) Status RangeDeficiency <20 ng/mL (50nmol/L)Insufficiency 20 - 30 ng/mL (50 - 75 nmol/L)Sufficiency 30 - 100 ng/mL (75 - 250 nm ol/L)Toxicity >100 ng/mL (250 nmol/L)Effective 201222-Jun-201277-Iwd-423318:23 MINOR SANTIAG[employer] DIGITAL & CAD Radiology Report See Note [...] Galeana M.D.June 22, 2012 at 2:15:23 PM [id number] Signed GP/GP If you a re the referring physician and would like to consult with theradiologist who provided this interpretation, please contact Luis Angel Quintana at [phone]. If this radiologist is unavailable, you will [...] documents. Dictated on 06/22/12 1323 by Wendy IRVIN,GabrieleTranscribed on 06/22/12 1417 by ITS IMPORTSign by Silvia hurst MD,Barrera on 06/22/12 1418 Sign by: Wendy IRVIN,Barrera 22-Jun-2012 glu gtt4 66 mg/dL Comments: 4HR GTT GLU 4 HR GLU GTT-4 HOUR from 0426:F96144K. 11:43 (Abnormal) Range: 70-110 22-Jun-2012 glu gtt3 36 mg/dL Comments: 4HR GTT GLU 3 HR GLU GTT-3 HOUR from 0426:[id number]. 10:50 (Abnormal) Range: 70-110 Comments: CRITICAL VALUE REPEATED AND VERIFIED. CALLED TO ANUEL BENTLEY06/22/12 MARGY SYKES.RESULTS READ BACK BY SAME . 22-Jun-2012 glu gtt2 84 mg/dL (Normal) Comments: 4HR GTT GLU 2 HR GLU GTT-2 HOUR from 0426:[id number]. 9:50 Range: 70-120 22-Jun-2012 glu gtt1 118 mg/dL Comments: 4HR GTT GLU 1 HR GLU GTT-1 HOUR from 0426:[id number]. 8:50 (Abnormal) Range: 120-170 22-Jun-2012 glu gtt.5 140 mg/dL Comments: 4HR GTT GLU 1/2 HR GLU GTT-30 min. from 0426:W40288A. 8:20 (Normal) Range: 110-170 24-Mgk-46979:40 BGM Comments: 4HR GTT FASTING GLU GTT-FASTING from 0426:[id number]. glu gttf 94 mg/dL (Normal) Range: 70-110 Comments: GLUCOSE TOLERANCE TEST Reference IntervalNon- AdultsFasting 70 - 71802 minutes 110 - 1701 hour 120 - 1702 hour 70 - 1203 hour 70 - 1104 hour 70 - 1105 hour 70 - 110 BGM 97 mg/dL (Normal) Range: 70-110 Comments: MANAGEMENT OF PATIENT CARE PER NURSING PROTOCOLNo Action Required0 :40 CBCD Comments: DR DAILY ORDERED DEI6PKKU TRES ORDERED CMP CBCD ANC 2.2 3/uL [...] 4.4-11.0 :40 CMP Comments: DR DAILY ORDERED PYR0FGQS TRES ORDERED CMP CBCD GAP 8 (Normal) [...] 70-110 :40 GTT4 Comments: DR DAILY ORDERED BNA9QSTKDR VILLAFANA ORDERED CMP CBCD :31 CBC WITH MANUAL DIFF Comments: PATIENT NOT FASTINGPERFORMED BY: [facility]CoKind[facility] MorrisNgdaqw0290 [facility] [id number] Information: [id number] (20730) Immature Grans (Abs) 0.0 {x10E3/uL} (Normal) Range: [...] 9.0 {x10E3/uL} (Normal) Range: 4.0-10.5 :31 TSH (41013) Comments: PATIENT NOT FASTINGPERFORMED BY: [facility] Innovative SolutionsKindred Hospital at MorrisMsaloi2517 [facility] [id number] TSH 6.430 {uIU/mL} (Abnormal) Range: 0.450-4.500 :31 EBV Panel (24533) Comments: PATIENT NOT FASTINGPERFORMED BY: Pixel QiKindred Hospital at MorrisHwnzoi5863 [facility] [id number] Interpretation: SPRCS (Normal) Comments: EBV Interpretation Chart [...] 5:28 (Abnormal) Comments: Results confirmed ondilution.Performed at: [address] [id number] Director: Omer Stout PhD, Phone: [phone] TSH 0.90 {uIU/mL} Range: 0.358-3.74 5:28 (Normal) 4-Oou-660322:59 Urinalysis, Office (95378) UA - BILIRUBIN Negative (Normal) UA - BLOOD Hemolyzed Trace (Normal) UA - GLUCOSE Negative (Normal) UA - KETONES Negative mg/dL (Normal) UA - LEUKOCYTE ESTERASE Negative (Normal) UA - NITRITE Negative (Normal) UA - PH 7.0 (Normal) UA - PROTEIN Negative mg/dL (Normal) UA - SPECIFIC GRAVITY 1.010 (Normal) URINE UROBILINGN SPRING TIMED Normal mg/dL (Normal) 2-Drs-211990:11 ARELY CULTURE-OTHER (42513) Comments: PATIENT NOT FASTINGPERFORMED BY: [address] [id number] Information: SRC:THRT [id number] Result 1 RRF (Normal) Comments: Routine respiratory kaylene Upper Respiratory Culture Final report (Normal) 9-Bot-941670:58 Rapid Strep Test, Office (19056) Rapid Strep Test, Office Negative (Normal) 8-Zby-358537:47 Urinalysis, Office (13615) UA - BILIRUBIN Negative (Normal) UA - BLOOD Hemolyzed Trace (Normal) UA - GLUCOSE Negative (Normal) UA - KETONES Negative mg/dL (Normal) UA - LEUKOCYTE ESTERASE Negative (Normal) UA - NITRITE Negative (Normal) UA - PH 6.0 (Normal) UA - PROTEIN Negative mg/dL (Normal) UA - SPECIFIC GRAVITY 1.010 (Normal) URINE UROBILINGN SPRING TIMED Normal mg/dL (Normal) 7-Nya-648449:11 URINE ARELY CULTURE (SPRING Comments: PATIENT NOT FASTINGPERFORMED BY: [id number] [facility] [id number] Information: SRC:LISSETH [id number] COL COUNT) (93501) Result 1 MUG (Normal) Comments: Mixed urogenital Colonies/mL Urine Final report (Normal) Culture,Comprehensive 14-Yas-010666:1 ISAIAS 8.59 ug/dL (Normal) Comments: COMMENTS: FAX RESULTS TO DR. KEVIN HARTMAN DRAW 0 Range: 3.09-22.40 Comments: Adult (AM) 4.30 - 22.40 ug/dL Adult (PM) 3.09 - 16.66 ug/dL 13-Ibb-97422:40 ISAIAS 10.40 ug/dL (Normal) Comments: COMMENTS: FAX [...] (Normal) Range: 70-110 Comments: RESULTS FAXED TO [phone] 01/13/12 0934 MARINE TOURE.RESULTS FAXED TO [phone] 01/13/12 0959 MARINE TOURE. :25 ISAIAS 13.11 [...] Range: 0-34 Comments: Results confirmed ondilution.Performed at: [address] Director: Omer Stout PhD, Phone: [phone] :25 TSH 5.66 {uIU/mL} (Abnormal) Comments: COMMENTS: [...] :15 CMP Comments: DR BROWN ORDERED LIPID,CMP,TSH,CBCMDDR ANYLANKI [...] LIPID Comments: DR BROWN ORDERED LIPID,CMP,TSH,CBCMDDR TRES ORDRED CMP,CBCD HDL 66 mg/dL (Normal) Comments: [...] ORDERED LIPID,CMP,TSH,CBCMDDR TRES ORDRED CMP,CBCD Range: 0.358-3.74 2-Wjj-945859:46 MYOCARD PERF STRESS/REST MULT Radiology Report See [...] Zuleyma VALLE by Mazin IRVIN,Uzair on 12/05/11 0857 Sign by: Mazin IRVIN,Uzair 47-Fxx-301514:42 BRAIN W/WO CONTRAST Radiology Report See Note [...] Soto M.D.November 16, 2011 at 2:50:07 PM [id number] Signed LL/LL If you are the referring physician and would like to consult with theradiologist who provided this interpretation, please contact Shahla Weiss M.D. at . If this radiologist is unavailable, you willbe directed to another radiologist to assist. If you are a patient with a question regarding this report, pleasecontactyour referring physician fabiana fuentes. Professional Interpretation Provided By: Moku, Phone , These documents contain legally protected [...] 11/16/11 1457 Sign by: SHAHLA SOTO MD 88-Tdr-939890:25 CHEST WITH CONTRAST Radiology Report See Note [...] Galeana M.D.November 14, 2011 at 3:11:11 PM [id number] Signed GP/GP If you are the referring physician and would like to consult with theradiologist who provided this interpretation, please contact Luis Angel Quintana at . If this radiologist is unavailable, youwill be directed to another radiologist to assist. If you are a patient with a question regarding this report, pleasecontactyour referring physician directly. Professional Interpretation Provided By: Moku, Phone , These documents contain legally protected [...] 11/15/11 1543 Sign by: Barrera Galeana MD 43-Yyc-361860:39 L/S SPINE,MIN 4 VIEWS Radiology Report See [...] Galeana M.D.November 14, 2011 at 3:46:06 PM [id number] Signed GP/GP If you are the referring physician and would like to co nsult with theradiologist who provided this interpretation, please contact Luis Angel Quintana at [phone]. If this radiologist is unavailable, youwill be directed to another radiologist to [facility]. If you are a patient with a question regarding this report, pleasecontactyour referring physician directly. Professional Interpretation Provided By: Moku, Phone ,Fax These documents contain legally protected [...] 11/15/11 1605 Sign by: Barrera Galeana MD 58-Lsn-313238:38 CERV SPINE,MIN 4 VIEWS Radiology Report See [...] fusion at the C4, C5, and C5, M1fbeygxxxxr prosthetic disk material. 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 Normal visualized intervertebral neuroforamina. Normal visuali zed soft tissue structures. IMPRESSION:Anterior fusion at the C4-C5 and C6- C7 levels. Signed:Barrera Galeana M.D.November 14, 2011 at 3:47:12 PM [id number] Signed GP/GP If you ar e the referring physician and would like to consult with theradiologist who provided this interpretation, please contact Luis Angel Quintana at [phone]. If this radiologist is unavailable, youw ill [...] 11/14/11 1554 Sign by: Barrera Galeana MD 06-Dsv-586815:38 HIP, MIN 2 VIEWS Radiology Report See [...] Galeana M.D.November 14, 2011 at 3:48:20 PM [id number] Signed GP/GP If you are the referring physician and would like to consult with theradiologist who provided this interpre tation, please contact Luis Angel Quintana at [phone]. If this radiologist is unavailable, youwill be directed to another radiologist to assist. If you are a patient with a question regarding t his report, pleasecontactyour referring physician directly. Professional Interpretation Provided By: Moku, Phone , These documents contain legally protected [...] 1006 by Kim Galeana MDranscribed on 11/14/11 1555 by ITS IMPORTSign by Barrera Galeana MD on 11/14/111555 Sign by: Barrera Galeana MD 76-Nbr-04061:52 CBCMD RBCM NORM C+C {NORMAL} (Normal) PE [...] Embolism (PE)RESULTS CALLED TO YOVANNY OLSON 11/14/11 1111 ROSIE RENTERIA.REPORT READ BACK BY SAME . :52 TSH [...] Galeana M.D.November 14, 2011 at 3:48:08 PM [id number] Signed GP/GP If you are the referring physician and would like to consult with ld crowley who provided this interpretation, please contact Luis Angel Quintana at [phone]. If this radiologist is unavailable, youwill be directed to another radiologist to assist. If you are a patient with a question regarding this report, pleasecontactyour referring physician directly. Professional Interpretation Provided By: Moku, Phone , These document s contain legally [...] structionofthese documents. Dictated on 11/14/11 1014 by Pedicelli MD,Tomasabed on 11/15/11 1607 by ITS IMPORTSign by Barrera Galeana MD on 11/15/11 1608 Sign by: Barrera Galeana MD 2-Ajw-723696:42 JACQUI Comments: DR BROWN ORDERED LIPID TSH CMPDR VELLANCHING ORDERED CMP CBCD DNA JACQUI CHERIE SCL-70 SSA/SSBENA ANTICENTROMERE taANA 45 AU/mL (Normal) 6-Gvh-574913:42 ANEX Comments: DR BROWN ORDERED LIPID TSH CMPDR VELLANKI ORDERED CMP CBCD DNA JACQUI CHERIE SCL-70 SSA/SSBENA ANTICENTROMERE taANA COMMENT (Normal) Comments: TESTING INTERPRETATIONSPOSITIVE: > 120EQUIVOCAL: 100 - 120NEGATIVE: < 100 taRNP 29 AU/mL (Normal) taSM 32 AU/mL (Normal) 8-Htn-269879:42 ANTIJO1 Comments: DR BROWN ORDERED LIPID TSH CMPDR VELLANCHING ORDERED CMP CBCD DNA JACQUI CHERIE SCL-70 SSA/SSBENA ANTICENTROMERE taJO1 17 AU/mL (Normal) 6-Vbr-766266:42 CBCD ANC 3.9 3/uL (Normal) Range: 2.0-7.7 [...] 4.2-5.4 WBC 6.2 K/mm3 (Normal) Range: 4.4-11.0 3-Qzb-263575:42 CENTB Comments: DR BROWN ORDERED LIPID TSH CMPDR VELLANKI ORDERED CMP CBCD DNA JACQUI CHERIE SCL-70 SSA/SSBENA ANTICENTROMERE taCENTB 6 AU/mL (Normal) 7-Kkf-168046:42 CMP Comments: DR BROWN ORDERED LIPID TSH [...] 7-18 GLU 94 mg/dL (Normal) Range: 70-110 9-Zog-204611:42 DNAAB Comments: DR BROWN ORDERED LIPID TSH CMPDR VELLANKI ORDERED CMP CBCD DNA JACQUI CHERIE SCL-70 SSA/SSBENA ANTICENTROMERE tadsDNA 5 {IU/mL} (Normal) 3-Mzg-832897:42 LIPID Comments: DR BROWN ORDERED LIPID TSH [...] 200-240 mg/dL Borderline >240 mg/dL High Risk 3-Cno-269669:42 SCL70 Comments: DR BROWN ORDERED LIPID TSH CMPDR VELLANKI ORDERED CMP CBCD DNA JACQUI CHERIE SCL-70 SSA/SSBENA ANTICENTROMERE taSCL70 45 AU/mL (Normal) 9-Ruf-094722:42 SSA Comments: DR BROWN ORDERED LIPID TSH CMPDR VELLANKI ORDERED CMP CBCD DNA JACQUI CHERIE SCL-70 SSA/SSBENA ANTICENTROMERE taSSA 31 AU/mL (Normal) 5-Qyj-179176:42 SSB Comments: DR BROWN ORDERED LIPID TSH CMPDR VELLANKI ORDERED CMP CBCD DNA JACQUI CHERIE SCL-70 SSA/SSBENA ANTICENTROMERE taSSB 34 AU/mL (Normal) 4-Clq-050336:42 TSH 11.70 {uIU/mL} (Abnormal) Comments: DR BROWN ORDERED LIPID TSH CMPDR VELLANKI ORDERED CMP CBCD DNA JACQUI CHERIE SCL-70 SSA/SSBENA ANTICENTROMERE Range: 0.358-3.74 75-Pcx-85400:36 ESOPHAGUS ONLY Radiology Report See Note (Normal) [...] Galeana M.D.September 13, 2011 at 9:19:02 AM [id number] ly Signed GP/GP If you are the referring physician and would like to consult with theradiologist who provided this interpretation, please contact Luis Angel Quintana at [phone]. If this radiolo gist is unavailable, youwill be directed to another radiologist to assist. If you are a patient with a question regarding this report, pleasecontactyour referring physician directly. Professional Interp retation Provided By: Moku, Phone , Dictated on 09/13/11 0834 by Wendy IRVIN,Kimranscribed on 09/13/11 0945 by ITS IMPORTSign by Wendy IRVIN,Barrera on 09/13/11 0946 Sign by: Wendy IRVIN,Barrera 35-Ijx-43107:47 CBCMD RBCM NORM C+C {NORMAL} (Normal) PE [...] :47 TSH 26.20 {uIU/mL} (Abnormal) Range: 0.358-3.74 8-Drg-780097:01 CHEST, PA AND LATERAL Radiology Report See [...] Signed GP/GP Professional Interpretation Provide d By: [facility], , To consult with a radiologist regarding this report, please call our 85U1qqoioso line @ Dictated on 03/10 1331 by Marcel Galeana MDscribed on 06/28/11 1852 by ITS IMPORTSign by Barrera Galeana MD on 06/28/11 185 Sign by: Barrera Galeana MD 02-Cpv-17190:32 THYROID Radiology Report See Note (Normal) Comments: [...] change has occurred [facility]. IMPRESSION:1. These size of the thyroid gland is stable.2. 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 Signed:John Spencer M.D.June 24, 2011 at 4:51:02 PM EDTElectronically Signed DL/DL Professional Interpretation Provided By: [facility], , To consult with a radiologist regarding t his report, please call our 27A2phbtask line @ Dictated on 06/24/11 1013 by John Spencer MDTranscribed on 06/24/11 1655 by ITS IMPORTSign by John Spencer MD on 06/24/11 165 Sign by: John Spencer MD 01-Ryw-20265:30 BILAT SCRN DIGITAL & CAD Radiology Report [...] EDTElectronically Signed GP/GP Professional Interpretation Provided By: [facility], , To consult with a radiologist regarding this report, please call our 10T0vxvouui line @ Dictated on 06/24/11 0945 by Kim Galeana MDranscribed on 06/24/11 1025 by ITS IMPORTSign by Barrera Galeana MD on 06/24/11 1026 Sign by: Barrera Galeana MD 90-Prd-546609: CUT See Note (Normal) Comments: CULTURE OF TOUNG AND THROAT 11 Comments: 1+ YEAST ISOLATED No beta-hemolytic streptococcus isolated. 83-Cyn-633604:46 CBCMD MACRO 1+ (Normal) RBCM N CHROM [...] 4.2-5.4 WBC 10.7 K/mm3 (Normal) Range: 4.4-11.0 14-Ves-686257:46 CMP GAP 9 (Normal) Range: 5-15 CO2 [...] 7-18 GLU 94 mg/dL (Normal) Range: 70-110 72-Ztv-904591:46 EBGM tEBINT Comment (Normal) Comments: EBV Interpretation Chart . Interpretation VCA-IgM EA-IgG VCA-IgG NA-ABS . Susceptible - - - - Acute Infection + +or- +or- - Convalescent Phase +or- +or- + + Chronic or Reactivated - + + +or- Old Infection - - +or- + + Antibody Pr esent - Antibody AbsentPerformed at: - [facility] [address] [id number] Director: Iraida Willingham MD, Phone: [phone] EBNA > 8.0 {AI} (Abnormal) Range: 0.0-0.8 Comments: Negative <0.9 Equivocal 0.9 - 1.0 Positive >1.0 EBVG > 8.0 {AI} (Abnormal) Range: 0.0-0.8 Comments: Negative <0.9 Equivocal 0.9 - 1.0 Positive >1.0 EBEAG < 0.2 (Normal) Comments: Negative <0.9 Equivocal 0.9 - 1.0 Positive >1.0 EBVM < 0.2 {AI} (Normal) Range: 0.0-0.8 Comments: Negative <0.9 Equivocal 0.9 - 1.0 Positive >1.0 16-Cmo-377344:28 CHEST, PA AND LATERAL Radiology Report See [...] radiologist regarding this report, please call our 85H2ijxoemj line @ Dictated on 06/07/11 1321 by Wendy IRVIN,Marcelniurkari bed on 06/07/11 1408 by ITS IMPORTSign by Wendy IRVIN,Barrera on 06/07/11 1409 Sign by: Wendy IRVIN,Barrera CUT See Note (Normal) Comments: #1- PRESUMPTIVE FRANK ALBICANSNo beta-hemolytic streptococcus isolated. [employer] [employer]ARE ORGANISM 1: YEAST 4:09 H.PYLORI 263204 < 0.9 U/mL (Normal) Range: 0.0-0.8 1:47 Comments: Negative <0.9 Indeterminate 0.9 - 1.0 Positive >1.0Performed at: [facility] [id number] Director: Iraida Willingham MD, Phone: [phone] 3-Zjx-232941:34 CBCD,SMEAR DIFF MACROCYTE 1+ (Normal) RED CELL [...] 4.2-5.4 WBC 7.6 K/mm3 (Normal) Range: 4.4-11.0 6-Dcv-103526:34 COMP METABOLIC GAP 8 (Normal) Range: 5-15 [...] 7-18 GLU 83 mg/dL (Normal) Range: 70-110 8-Yor-758224:20 Urinalysis, Office (10630) UA - BILIRUBIN Negative (Normal) UA - [...] URINE CULTURE Culture exhibits no growth. (Normal) 4-Act-057321:07 CULTURE, THROAT See Note (Normal) Comments: AMOUNT [...] $ <=10 S VANCOMYCIN $ <=1 S 4-Rwj-002412:30 Rapid Strep Test, Office (22429) Rapid Strep Test, Office Negative (Normal) 04-Ryz-990850:52 SPINE,CERVICAL WITHOUT CONTRAS Radiology Report See Note [...] 07/21/10 0102 Sign by: Barrera Galeana MD 57-Cdk-511289:22 CERV SPINE,MIN 4 VIEWS Radiology Report See Note (Normal) Comments: CLINICAL:Female, 49 years old. Neck pain. X-RAY EXAMINATION - CERVICAL SPINE TECHNIQUE:Five views of the cervical spine were obtained. COMPARISON:None FINDINGS:Normal craniovertebral junction. Normal anterior atlantoaxialarticulation. Normal odontoid process. There is straightening of the normal cervical lordosis. Normal vertebralbodies and posterior osseous elements. The transverse processes of Z4zdhemhjzkoat. There is multi-level degenerative disc space narrowing with endplatespondylosis. There is multi-level osseous foraminal stenosis at K9-A3lfoF1-O4, bilateral. Normal visualized soft tiss ue structures. IMPRESSION:Multilevel degenerative disc disease with osseous foraminal stenosis.Prominent transverse processes of C7 may cause thoracic outlet syndrome.Straightening of the normal cervica l lordosis. Dictated on 07/13/10 1536 by MANJINDER HOLLIDAY MDOTranscribed on 07/14/10 1209 by ITS IMPORTSign by SWATI HOLLIDAY MD on 07/14/10 1210 Sign by: SWATI HOLLIDAY MD 98-Vzz-40135:00 CHEST, PA AND LATERAL Radiology Report See [...] IMPRESSION:Old granulomatous disease. Dictated on 07/13/101535 by MANJINDER LEE MDOTranscribed on 07/14/10 1304 by ITS IMPORTSign by SWATI HOLLIDAY MD on 07/14/10 1304 Sign by: SWATI HOLLIDAY MD 96-Zlr-83176:35 BILAT SCRN DIGITAL & CAD Radiology Report [...] on 06/22/102351 Sign by: MELISSA LEES MD 94-Ter-14789:34 DEXA BONE DENSITY STUDY (HP) Radiology Report See Note (Normal) Comments: CLINICAL:Female, 49 years old. The patient is a postmenopausal. EXAMINATION:DUAL ENERGY X-RAY ABSORPTIOMETRY / DEXA. TECHNIQUE:Bone Mineral Density (BMD) measurements of lumbar spine and bi lateralhipsw ere obtained using a [employer] scanner.. COMPARISON:Comparison is made with prior study [...] on 06/22/10 0942 by Wendy IRVIN,GabrieleTranscribed on 06/22/101444 by ITS IMPORTSign by Barrera Galeana MD on 06/22/101444 Sign by: Barrera Galeana MD 7-Bvc-924450:14 Rapid Strep Test, Office (40459) Rapid Strep Test, Office Negative (Normal) 04-Jun-20100:00 [...] CBCD VITD Range: 0.358-3.74 :29 VIT D,25 54637 53.4 ng/mL (Normal) Comments: DR. BROWN ORDERED TSH LIPID CMP VITD CBCMDDR. TRES CMP CBCD VITD Range: 32.0-100.0 Comments: Recent studies consider the lower limit of 32.0 ng/mL to ama threshold for optimal health.Fco GARCIA. J Nutr. 2004;135(2):317-22.Performed at: - [facility] [address] [id number] Director: Iraida Willingham MD, Phone: [phone] :[phone] LQD PAP 707650 PAPSMR Comment (Normal) Comments: The Pap smear [...] HPV testing was performed. .Performed at: - [facility] [id number] Director: Nita Hernandez MD, Phone: [phone] COMM . (Normal) DIAGN Comment (Normal) Comments: NEGATIVE FOR INTRAEPITHELIAL LESION AND MALIGNANCY.CELLULAR CHANGES ASSOCIATED WITH ATROPHY ARE PRESENT.Satisfactory for evaluation.Kiran Gayle, Transfer Pumper (ASCP) :41 BONE SCAN WHOLE BODY Radiology [...] Report See Note (Normal) Comments: Exam Number: [id number] LINICAL:This is a 49-year-old female patient with [...] Report See Note (Normal) Comments: Exam Number: [id number] LINICAL:This is a 49 year old female [...] above. Reported By: BARRERA GALEANA :41 THYROID () Radiology Report See Note (Normal) Comments: Exam Number: [id number] LINICAL:This is a 49-year-old female patient with [...] described. Reported By: BARRERA GALEANA : ANTI-CCP [id number] 2 {units} (Normal) Range: 0-19 41 Comments: Negative <20 Weak positive 20 - 39 Moderate positive 40 - 59 Strong positive >59Performed at: [facility] [address] [id number] Director: Eusebio Live MD, Phone: [phone] 69-Vix-237008:53 JACQUI DIR SEMI-QL JACQUI DIRECT 77 AU/mL (Normal) 44-Mas-572660:13 ESR SED RATE 5 mm/h (Normal) Range: 0-20 02-Jol-152189:05 RHEUMATOID FAC < 10.0 {IU/mL} (Normal) :05 [...] CHOL 166 mg/dL (Normal) Comments: <200 mg/dL Kuqnsvvlj891-945 mg/dL Borderline>240 mg/dL High Risk TRIG 85 [...] {uIU/mL} (Normal) Range: 0.358-3.74 :13 VIT D,25 86984 63.3 ng/mL (Normal) Range: 32.0-100.0 Comments: Recent studies consider the lower limit of 32.0 ng/mL to ama threshold for optimal health.Fco GARCIA. J Nutr. 2004;135(2):317-22.Performed at: [place] [address]Lab Director: Iraida Willingham MD, Phone: [phone] 1-Asa-012469:57 CHEST, PA AND LATERAL (MT) Radiology Report See Note (Normal) Comments: Exam Number: [id number] X-RAY EXAMINATION: CHEST CLINICAL:This is a 49-year-old [...] CHOL 320 mg/dL (Abnormal) Comments: <200 mg/dL Zmrgfhoxx230-686 mg/dL Borderline>240 mg/dL High Risk TRIG 107 mg/dL (Normal) Comments: Serum Triglycerides Reference IntervalNormal <150 mg/dLBorderline high 150 - 199 mg/dLHigh 200 - 499 mg/ dLVery High > or = 500 mg/dL :14 T4 FREE DIRECT 0.70 ng/dL (Abnormal) Range: 0.76-1.46 :14 TSH 15.20 {uIU/mL} Range: 0.358-3.74 (Abnormal) :01 BILAT SCRN DIGITAL & CAD Radiology Report See Note (Normal) Comments: Exam Number: [id number] MAMMOGRAM, BILATERAL SCREENING DIGITAL AND CAD HISTORYRoutine [...] mammograms werealso examined with computer-aided detection software (Image[employer], [employer], [employer].). Reported By: MELISSA LEES M.D. Plan of Care Name Dates Details Instructions Unspecified Diagnosis : Eprescribed prescriptions (G8553) Indication: Unspecified Diagnosis Dysuria : Eprescribed prescriptions (G8553) Indication: Dysuria [...] Effects Indication: Other hyperlipidemia Planned Observations TSH (91616)Indication: Thyroid disorder On: 0-Iao-196127:46 Request METABOLIC PANEL, COMPREHENSIVE (75177)Indication: Right flank pain On: 10-Mct-092629:21 Request Comments: stat CBC W/AUTO DIFF WBC (76820)Indication: Right flank pain On: 71-Orn-633553:21 Request Comments: stat CBC with auto diff (23982)Indication: Impaired fasting glucose On: :53 Request METABOLIC PANEL, COMPREHENSIVE (63286)Indication: Impaired fasting glucose On: 1-Asg-769825:53 Request HGB A1C (23962)Indication: Impaired fasting glucose On: :53 Request LIPID PANEL (22919)Indication: Other hyperlipidemia On: :53 Request Vitamin D Hydroxy (43548)Indication: Vitamin D deficiency On: :10 Request LIPID PANEL (91896)Indication: Other hyperlipidemia On: :10 Request CBC with auto diff (73703)Indication: Impaired fasting glucose On: :08 Request METABOLIC PANEL, COMPREHENSIVE (09709)Indication: Impaired fasting glucose On: :08 Request C-REACTIVE PROTEIN (98224)Indication: Left-sided face pain On: :08 Request SED RATE ERYTHROCYTE (16861)Indication: Left-sided face pain On: 09-Nxr-042527:08 Request HGB A1C (85481)Indication: Impaired fasting glucose On: :08 Request CBC, PLATELETS & MANUAL DIFF (65190)Indication: Fatigue On: 51-Rdc-787717:44 Request EBV Panel (42301)Indication: Fatigue On: 50-Jdd-565966:44 Request LIPID PANEL (01657)Indication: Other hyperlipidemia On: :00 Request CBC with auto diff (24785)Indication: Impaired fasting glucose On: 1-Sel-427518:00 Request METABOLIC PANEL, COMPREHENSIVE (73317)Indication: Impaired fasting glucose On: 3-Smx-132444:00 Request HGB A1C (78896)Indication: Impaired fasting glucose On: :00 Request LIPID PANEL (21894)Indication: Other hyperlipidemia On: :37 Request TSH (THYROID STIMULATING HORMONE) (62920)Indication: Acquired hypothyroidism On: :37 Request CBC with auto diff (50715)Indication: Impaired fasting glucose On: :35 Request METABOLIC PANEL, COMPREHENSIVE (42703)Indication: Impaired fasting glucose On: 4-Fxo-797977:35 Request MICROALBUMIN: CREATININE RATIO (97261) AND (06862)Indication: Impaired fasting glucose On: :35 Request HGB A1C (10041)Indication: Impaired fasting glucose On: :35 Request CBC W/AUTO DIFF WBC (05668)Indication: Primary adrenocortical insufficiency On: : Request METABOLIC PANEL, COMPREHENSIVE (28792)Indication: Primary adrenocortical insufficiency On: 19-Qzh-401894:06 Request LIPID PANEL (90332)Indication: Other hyperlipidemia On: : Request CBC with auto diff (91881)Indication: Impaired fasting glucose On: : Request METABOLIC PANEL, COMPREHENSIVE (08520)Indication: Impaired fasting glucose On: :26 Request HGB A1C (25270)Indication: Impaired fasting glucose On: :26 Request TSH (06798)Indication: Acquired hypothyroidism On: 34-Lsb-963540:59 Request Comments: 6 weeks RHEUMATOID FACTOR-QUANT (23494)Indication: Joint pain On: :02 Request C-REACTIVE PROTEIN (78214)Indication: Joint pain On: :02 Request SED RATE ERYTHROCYTE (66809)Indication: Joint pain On: 80-Rqf-644784:02 Request URIC ACID BLOOD (71012)Indication: Joint pain On: 50-Gvh-813472:02 Request T3, FREE (TRIDOTHYRONINE) (66586)Indication: Acquired hypothyroidism On: :58 Request T4, FREE (THYROXINE) (96044)Indication: Acquired hypothyroidism On: 96-Hip-110706:58 Request TSH (77379)Indication: Acquired hypothyroidism On: 23-Ong-046699:58 Request CBC W/AUTO DIFF WBC (00289)Indication: Edema, unspecified type On: 40-Bsf-535321:48 Request METABOLIC PANEL, COMPREHENSIVE (21987)Indication: Edema, unspecified type On: 73-Hrn-047835:48 Request SODIUM URINE (99022)Indication: Hyponatremia On: 50-Tod-109153:30 Request Vitamin D Hydroxy (10863)Indication: Hypocalcemia On: : Request PARATHORMONE (03524)Indication: Hypocalcemia On: : Request PHOSPHORUS (41275)Indication: Hypocalcemia On: : Request METABOLIC PANEL, COMPREHENSIVE (04924)Indication: Hypocalcemia On: :30 Request T3, FREE (TRIDOTHYRONINE) (57547)Indication: Acquired hypothyroidism On: : Request T4, FREE (THYROXINE) (98649)Indication: Acquired hypothyroidism On: : Request TSH (74471)Indication: Acquired hypothyroidism On: : Request HGB A1C (65997)Indication: Impaired fasting glucose On: :17 Request MICROALBUMIN: CREATININE RATIO (96320) AND (36661)Indication: Impaired fasting glucose On: : Request METABOLIC PANEL, COMPREHENSIVE (86155)Indication: Impaired fasting glucose On: :17 Request T3, FREE (TRIDOTHYRONINE) (29535)Indication: Acute nonintractable headache, unspecified headache type On: :46 Request T4, FREE (THYROXINE) (53941)Indication: Acute nonintractable headache, unspecified headache type On: 61-Bcs-455575:46 Request TSH (57162)Indication: Acute nonintractable headache, unspecified headache type On: 57-Byl-394392:46 Request TSH ([id number])Indication: Acquired hypothyroidism On: :46 Request T4, FREE (THYROXINE) ([id number])Indication: Acquired hypothyroidism On: :46 Request Metabolic Panel, Basic (64403)Indication: Hyponatremia On: :46 Request T3, FREE (TRIDOTHYRONINE) (20922)Indication: Acquired hypothyroidism On: 4-Lec-259763:46 Request MICROALBUMIN: CREATININE RATIO (85550) AND (51875)Indication: Impaired fasting glucose On: :55 Request LIPOPROTEIN, BLD, BY NMR (47252)Indication: Other hyperlipidemia On: 4-Unw-172285:55 Request METABOLIC PANEL, COMPREHENSIVE (20170)Indication: Osteoporosis On: 0-Kom-120720:52 Request Vitamin D Hydroxy (45747)Indication: Osteopenia On: : Request CBC W/AUTO DIFF WBC (80298)Indication: Gastroesophageal reflux disease without esophagitis On: 66-Cyy-422836:03 Request METABOLIC PANEL, COMPREHENSIVE (24473)Indication: Other hyperlipidemia On: : Request LIPID PANEL ([id number])Indication: Other hyperlipidemia On: : Request DHEA-S (DEHYDROEPIANDROSTERONE SULFATE) (30317)Indication: Adrenal disorder, other On: :29 Request VITAMIN D, 1, 25-DIHYDROXY (24791)Indication: Vitamin D deficiency On: :29 Request T4, TOTAL (01812)Indication: Acquired hypothyroidism On: : Request T3, TOTAL (TRIDOTHYRONINE) ([id number])Indication: Acquired hypothyroidism On: :29 Request T3, FREE (TRIDOTHYRONINE) (50533)Indication: Acquired hypothyroidism On: :28 Request T4, FREE (THYROXINE) (09778)Indication: Acquired hypothyroidism On: :28 Request TSH ([id number])Indication: Acquired hypothyroidism On: :28 Request T4, FREE (THYROXINE) (97481)Indication: Thyroid nodule On: 4-Hrc-542519:57 Request T3, FREE (TRIDOTHYRONINE) (83909)Indication: Thyroid nodule On: 5-Kyf-391232:57 Request TSH ([id number])Indication: Thyroid nodule On: 8-Xbh-046819:57 Request T3, FREE (TRIDOTHYRONINE) (35601)Indication: Acquired hypothyroidism On: :39 Request Comments: forward to Dr Grimm, Endocronologist, [place] T4, FREE (THYROXINE) ([id number])Indication: Acquired hypothyroidism On: :39 Request Comments: forward to Dr Grimm Endocronologist, [place] TSH ([id number])Indication: Acquired hypothyroidism On: :39 Request Comments: forward to Dr Grimm, Endocronologist, [facility] DHEA (DEHYDROEPIANDROSTERONE) (83097)Indication: Adrenal disorder, other On: :39 Request Comments: forward to Dr Grimm, Endocronologist, [facility] CALCIFEDIOL (21783)Indication: Vitamin D deficiency On: :38 Request Comments: forward to Dr Grimm Endocronologist, [facility] METABOLIC PANEL, COMPREHENSIVE (77027)Indication: Other hyperlipidemia On: 26-Njh-689372:32 Request LIPID PANEL ([id number])Indication: Other hyperlipidemia On: 12-Acn-351350:32 Request CBC W/AUTO DIFF WBC ([id number])Indication: Macrocytosis without anemia On: :53 Request METABOLIC PANEL, COMPREHENSIVE (96696)Indication: Other hyperlipidemia On: 16-Kwm-665758:53 Request LIPID PANEL (48705)Indication: Other hyperlipidemia On: 99-Eje-401933:53 Request METABOLIC PANEL, COMPREHENSIVE (47929)Indication: Other hyperlipidemia On: 23-Zzl-529364:24 Request LIPID PANEL (30494)Indication: Other hyperlipidemia On: 78-Ouw-839437:24 Request CULTURE, SPUTUM ([id number])Indication: Cough On: 84-Fov-664628:14 Request METABOLIC PANEL, COMPREHENSIVE (68134)Indication: Other hyperlipidemia On: 0-Tff-659108:02 Request LIPID PANEL (38695)Indication: Other hyperlipidemia On: 4-Qpt-254854:02 Request CBC WITH MANUAL DIFF ([id number])Indication: Upper Respiratory Infection On: 9-Jnu-620630:11 Request METABOLIC PANEL, COMPREHENSIVE ([id number])Indication: Upper Respiratory Infection On: 9-Obm-060556:11 Request LIPID PANEL ([id number])Indication: Other hyperlipidemia On: 7-Rya-757706:11 Request LIPID PANEL ([id number])Indication: Other hyperlipidemia On: :28 Request METABOLIC PANEL, COMPREHENSIVE ([id number])Indication: Other hyperlipidemia On: 79-Trk-889797:28 Request Vitamin D Hydroxy (96970)Indication: Osteopenia On: 39-Daf-543133:16 Request CBC WITH MANUAL DIFF ([id number])Indication: Fatigue On: 40-Qmb-603504:16 Request METABOLIC PANEL, COMPREHENSIVE ([id number])Indication: Fatigue On: 36-Bik-710172:16 Request T3, FREE (TRIDOTHYRONINE) ([id number])Indication: Acquired hypothyroidism On: 12-Uuc-077824:16 Request T4, FREE (THYROXINE) ([id number])Indication: Acquired hypothyroidism On: 93-Tyu-788971:16 Request TSH ([id number])Indication: Acquired hypothyroidism On: 02-Qox-020849:16 Request LIPID PANEL ([id number])Indication: Other hyperlipidemia On: 49-Eej-957018:15 Request T3, FREE (TRIDOTHYRONINE) ([id number])Indication: Acquired hypothyroidism On: 21-Feb-2012 Request T4, FREE (THYROXINE) ([id number])Indication: Acquired hypothyroidism On: 21-Feb-2012 Request TSH ([id number])Indication: Acquired hypothyroidism On: 21-Feb-2012 Request Metabolic Panel, Basic ([id number])Indication: Fatigue On: 25-Pmt-100529:58 Request Anti-TPO Antibody (74172)Indication: Acquired hypothyroidism On: :56 Request T3, FREE (TRIDOTHYRONINE) ([id number])Indication: Acquired hypothyroidism On: 69-Yxv-405269:56 Request T4, FREE (THYROXINE) (58992)Indication: Acquired hypothyroidism On: 10-Eff-881454:56 Request TSH ([id number])Indication: Acquired hypothyroidism On: 79-Kpw-525749:49 Request VITAMIN B-12 (CYANOCOBALAMIN) (28614)Indication: Macrocytosis without anemia On: 78-Dgm-336382:49 Request TSH ([id number])Indication: Palpitations On: :48 Request METABOLIC PANEL, COMPREHENSIVE (35222)Indication: Syncope On: :48 Request CBC WITH MANUAL DIFF ([id number])Indication: Syncope On: :48 Request D-Dimer ([id number])Indication: Syncope On: :48 Request Comments: stat CBC WITH MANUAL DIFF ([id number])Indication: inflammatory arthritis- following with valenke On: 64-Cuv-340976:03 Request METABOLIC PANEL, COMPREHENSIVE (02402)Indication: inflammatory arthritis- following with valenke On: 47-Hes-474723:03 Request LIPID PANEL ([id number])Indication: Other hyperlipidemia On: 94-Pkf-437161:03 Request TSH ([id number])Indication: Acquired hypothyroidism On: 98-Wil-50296:56 Request TSH ([id number])Indication: Acquired hypothyroidism On: :08 Request Comments: to be done in 8 weeks. METABOLIC PANEL, COMPREHENSIVE ([id number])Indication: Dysphagia, unspecified dysphagia On: 28-Pws-039283:52 Request LIPID PANEL ([id number])Indication: Other hyperlipidemia On: 04-Vkv-769531:52 Request TSH ([id number])Indication: Acquired hypothyroidism On: :52 Request TSH ([id number])Indication: Acquired hypothyroidism On: 59-Qwx-472764:15 Request CULTURE, SPUTUM ([id number])Indication: Cough On: 3-Zso-597334:52 Request Throat Culture ([id number])Indication: Unspecified bacterial pneumonia On: 53-Vhi-094549:00 Request Comments: swab tounge per order from Dr. Brown ARELY CULTURE-OTHER ([id number])Indication: Unspecified bacterial pneumonia On: 14-Juz-504529:43 Request EBV Panel ([id number])Indication: Fatigue On: :41 Request METABOLIC PANEL, COMPREHENSIVE ([id number])Indication: Fatigue On: :41 Request CBC WITH MANUAL DIFF ([id number])Indication: Fatigue On: :41 Request ARELY CULTURE-OTHER ([id number])Indication: Pharyngitis, acute On: 81-Wse-173190:24 Request Rapid Strep Test, Office ([id number])Indication: Pharyngitis, acute On: 87-Met-945644:24 Request CBC WITH MANUAL DIFF ([id number])Indication: Anxiety On: :13 Request METABOLIC PANEL, COMPREHENSIVE ([id number])Indication: Other hyperlipidemia On: :13 Request T4, FREE (THYROXINE) ([id number])Indication: Acquired hypothyroidism On: :12 Request T3, FREE (TRIDOTHYRONINE) ([id number])Indication: Acquired hypothyroidism On: :12 Request TSH ([id number])Indication: Acquired hypothyroidism On: :12 Request LIPID PANEL (75757)Indication: Other hyperlipidemia On: :11 Request URINE ARELY CULTURE-SPRING COL COUNT ([id number])Indication: Urinary frequency On: 6-Bfy-585813:21 Request METABOLIC PANEL, COMPREHENSIVE (00500)Indication: Gastroesophageal reflux disease without esophagitis On: :19 Request CBC WITH MANUAL DIFF ([id number])Indication: Gastroesophageal reflux disease without esophagitis On: :19 Request HELICOBACTER PYLORI ANTIBODY PROFILE IgG, IgM, IgA ([id number])Indication: Gastroesophageal reflux disease without esophagitis On: 5-Mch-114075:13 Request CBC WITH MANUAL DIFF ([id number])Indication: Preoperative examination On: :42 Request METABOLIC PANEL, COMPREHENSIVE (85513)Indication: Preoperative examination On: :42 Request PTT (Activated Partial Thromboplastin Time) (87073)Indication: Preoperative examination On: :42 Request PT (Prothrobim Time) (81013)Indication: Preoperative examination On: :42 Request URINALYSIS, W/ MICRO (46922)Indication: Preoperative examination On: :41 Request TSH ([id number])Indication: Acquired hypothyroidism On: :41 Request LIPID PANEL ([id number])Indication: Other hyperlipidemia On: :41 Request ARELY CULTURE-OTHER (80242)Indication: Pharyngitis, acute On: 5-Sth-132737:30 Request ARELY CULTURE-OTHER ([id number])Indication: Pharyngitis, acute On: 6-Bol-230924:14 Request Thin prep Pap ([id number])Indication: Well woman exam On: 06-Top-71339:47 Request Thin prep Pap ([id number])Indication: Well woman exam On: 8-Hpc-620172:09 Request Vitamin D Hydroxy (51780)Indication: Osteopenia On: :24 Request CBC WITH MANUAL DIFF ([id number])Indication: 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 On: :24 Request METABOLIC PANEL, COMPREHENSIVE (99204)Indication: 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 On: :24 Request LIPID PANEL (94231)Indication: Other hyperlipidemia On: :24 Request TSH ([id number])Indication: Acquired hypothyroidism On: 2-Dbh-916948:23 Request Creatine Kinase Total (19839)Indication: Arthritis On: :06 Request METABOLIC PANEL, COMPREHENSIVE (59531)Indication: Arthritis On: :05 Request CCP ANTIBODY ([id number])Indication: Arthritis On: :05 Request SED RATE ERYTHROCYTE (41270)Indication: Arthritis On: : Request C-REACTIVE PROTEIN ([id number])Indication: Arthritis On: : Request JACQUI (ANTINUCLEAR ANTIBODY) ([id number])Indication: Arthritis On: : Request RHEUMATOID FACTOR-QUANT (27581)Indication: Arthritis On: : Request TSH ([id number])Indication: Acquired hypothyroidism On: :06 Request HEPATIC FUNCTION PANEL (67757)Indication: Other hyperlipidemia On: : Request LIPID PANEL (71627)Indication: Other hyperlipidemia On: :06 Request Vitamin D Hydroxy (95293)Indication: Osteopenia On: 2-Lef-625376:27 Request LIPID PANEL (41065)Indication: Other hyperlipidemia On: 4-Pgt-690378:22 Request HEPATIC FUNCTION PANEL (14062)Indication: Other hyperlipidemia On: 8-Kzp-003213:21 Request URINE ARELY CULTURE (SPRING COL COUNT) (03968)Indication: Abnormal urine On: 6-Bdf-117382:19 Request TSH ([id number])Indication: Acquired hypothyroidism On: 0-Fdd-744446:18 Request URINALYSIS, W/ MICRO (40960)Indication: Low back pain On: 25-Fvf-650618:50 Request T3, FREE (TRIDOTHYRONINE) (02522)Indication: Acquired hypothyroidism On: 75-Ssb-831382:50 Request T4, FREE (THYROXINE) ([id number])Indication: Acquired hypothyroidism On: 86-Lmc-290358:50 Request CBC WITH MANUAL DIFF ([id number])Indication: Low back pain On: 69-Vwo-333934:49 Request METABOLIC PANEL, COMPREHENSIVE (10656)Indication: Family history of diabetes mellitus On: 72-Aei-146386:49 Request LIPID PANEL (57663)Indication: Other hyperlipidemia On: 05-Fky-335395:47 Request TSH ([id number])Indication: Acquired hypothyroidism On: 05-Cks-922815:47 Request Planned Encounters Medical; [facility] Pre [facility] [...] Martha A Fast DO, Martha A Comments: [id number] arm, SCprefilled syringeMLONG ELECTROCARDIOGRAM, COMPLETE (ECG) On: 05-Dec-2017 Intent (27589)By: Martha Brown DO A Kevin Comments: ekg showed normal sinus rhythym, normal axis, no acute st/t wave changes sinus ariana DO, Martha A MRI OF BRAIN WITH AND WITHOUT On: 01-Nov-2017 Intent CONTRAST ([id number])By: Martha Brown DO Comments: dont schedule on or A Fast DO, Martha A Flu Vaccine (Quadrivalent) 70022Nl: On: 01-Nov-2017 Intent Fast DO, Martha A Fast DO, Martha A Comments: Lot: [id number]: 08/26/18Site: L dltd, IMDose prefilled syringegiven by: Kahlil reviewed and ABN signed Radiology - Forearm - RightBy: Fast On: 28-Jun-2017 Intent DO, Martha A Fast DO, Martha A DEXA SCAN AXIAL SKELETON ([id number])By: On: 28-Jun-2017 Intent Fast DO, Martha A Fast DO, Martha A Comments: august SCREENING DIGITAL TOMOSYNTHESIS OF On: 28-Jun-2017 Intent BREAST ([id number])By: Kevin SAMUEL Martha A Comments: august Fast [...] A Comments: prolia injection 1 prefilled syringelot: [id number]: 05/2019RA sub-qAD RETAIL BEAUTY SPECIALIST CHEST XRAY, PA & LATERAL ([id number])By: On: 01-May-2017 Intent Fast DO, Martha A Fast DO, Martha A INFUSION, NORMAL SALINE SOLUTION , On: 21-Apr-2017 Intent 1000 CC (Special Coverage Comments: 2nd bag same lot same exp Instructions Apply. See MCM: 2048) ([id number])By: Fast DO, Martha A Fast DO, Martha A INFUSION, NORMAL SALINE SOLUTION , On: 21-Apr-2017 Intent 1000 CC (Special Coverage Comments: Site:[address] [place] [address] Number of attemps:1Tolerated:wellLot/exp of NS [id number] 08/15Medication?: noMLONG, RETAIL BEAUTY SPECIALIST Instructions Apply. See MCM: 2048) ([id number])By: Fast DO, Martha A Fast DO, Martha A CHEST XRAY, PA & LATERAL ([id number])By: On: 21-Apr-2017 Intent Fast DO, Martha A Fast DO, Martha A Comments: 3 weeks Ultrasound - ThyroidBy: Kevin SAMUEL, On: 07-Mar-2017 Intent Martha A Fast DO, Martha A PNEUM VAC ADLT/IMUMNOSPR, SBC/INTRM On: 20-Dec-2016 Intent ([id number])By: Kevin SAMUEL, Martha A Kevin Comments: pnuemovax prefilled syringe injectionlot: [id number]: 04/2018L DELT IMpt tolerated wellAD RETAIL BEAUTY SPECIALIST DO, Martha A Flu Vaccine (Quadrivalent) 43274Hh: On: 30-Nov-2016 Intent Fast DO, Martha A Fast DO, Martha A Comments: lot: [id number]: 08/14/ite/route: L michael, IMamt: 0.5mlVIS and ABN signed when applicableChelsea, OPERATIONS ASST ELECTROCARDIOGRAM, COMPLETE (ECG) On: 29-Nov-2016 Intent (89688)By: Kevin SAMUEL, Martha A Kevin Comments: ekg showed normal sinus rhythym, normal axis, no acute st/t wave changes DO, Martha A INJECTION, PROLIA (J0897)By: Kevin On: 04-Nov-2016 Intent DO, Martha A Fast DO, Martha A Comments: Lot:[id number]:08/14/17Dose:0.5mLRoute:IMSite:L DltdGiven By:ZACH signed Nuclear Stress Test/Stress On: 01-Sep-2016 Intent SPECT/TreadmillBy: Fast DO, Martha A Fast DO, Martha A Aerosol Treatment (79882)By: Kevin On: 08-Aug-2016 Intent DO, Martha A Fast DO, Martha A SCREENING DIGITAL TOMOSYNTHESIS OF On: 08-Aug-2016 Intent BREAST ([id number])By: Fast DO, Martha A Comments: end july [...] Martha A Fast DO, Martha A Comments: Lot:[id number]:02/13Dose:60mLRoute:sub qSite: l armGiven By:ZACH signed MRI OF BRAIN WITH AND WITHOUT On: 08-Feb-2016 Intent CONTRAST (41043)By: Fast DO, Martha Comments: try to get this week- A Kevin SAMUEL, Martha A Solu- Medrol Injection, 125mg On: 16-Dec-2015 Intent ([id number])By: Martha Brown DO A Kevin Comments: Lot:[id number]:04/2018Dose:125mgRoute:imSite:r hipGiven By:ZACH signed DO, Martha A Aerosol Treatment ([id number])By: Kevin On: 16-Dec-2015 Intent DO, Martha A Fast DO, Martha A Flu Vaccine (Quadrivalent) 70019Qv: On: 30-Nov-2015 Intent Fast DO, Martha A Fast DO, Martha A Comments: Lot:[id number]:08/26/16Dose:0.5mLRoute:IMSite:L DltdGiven By:ZACH signed MRI LUMBAR SPINE W/O CONTRAST On: 01-Sep-2015 Intent (47204)By: Martha Brown DO A Kevin Comments: hx of spine surgery- has done pt and pain management and nsaids- getting weak ehl right DO, Martha A DEXA SCAN AXIAL SKELETON (88538)By: On: 06-Jul-2015 Intent Kevin DO, Martha A Fast DO, Martha A MAMMOGRAM, SCREENING, BOTH BREAST On: 06-Jul-2015 Intent (60409)By: Fran Brown DOa A Fast DO, Martha A Rocephon Injection, 1 Gm On: 06-Mar-2015 Intent ([id number])By: Martha Brown DO A Kevin Comments: lot: [id number]: 04/27/17ite/route: RGM/IMamt: 1GVIS signed when applicableMILLIE Crespo DO, Martha A Radiology - ChestBy: Nicole KAYE, On: 09-Feb-2015 Intent Cahntal Flu Vaccine (Quadrivalent) 78231Zu: On: 10-Dec-2014 Intent Kevin DO, Martha A Fast DO, Martha A Comments: Lot #:[id number] date: 07/2015Amount given:prefilled syringeSite given:L Dltd, IMGiven by: WINNIE Hart and ABN signed ADMINISTRATION OF INFLUENZA VIRUS On: 10-Dec-2014 Intent VACCINE ([id number])By: Fast DO, Martha A Fast DO, Martha A BILATERAL MAMMOGRAMS (94312)By: On: 17-Jun-2014 Intent Fast DO, Martha A Fast DO, Martha A Comments: screening FLU VAC, SPLIT, >3 YEARS, INTRAMUSC On: 02-Dec-2013 Intent (48329)By: Martha Brown DO Comments: Lot #:[id number] date:10/2015Amount given:0.5mlRoute: IMSite given: left deltoidGiven by: GARETT Washington DO, Martha A IMMUNIZ ADMNIN, 1 VAC, SNGL/COMBO On: 02-Dec-2013 Intent (83813)By: Visit, Nurse CT OF RIGHT HIP WITH CONTRAST On: 30-Sep-2013 Intent (03484)By: Martha Brown DO Comments: with or without [...] A Fast DO, Martha A Pulse Oximetry (00863)By: Kevin SAMUEL, On: 14-May-2013 Intent Martha A Fast DO, Martha A Comments: 98 Spirometry (61636)By: Kevin DO, On: 14-May-2013 Intent Martha A Fast DO, Martha A Comments: good effor tand curve - mild decrease small airways Radiology - Chest- PA and LatBy: On: 14-May-2013 Intent Fast DO, Martha A Fast DO, Martha A Comments: stat call wet read Eprescribed prescriptions On: 14-May-2013 Intent (G8553)By: Kevin SAMUEL, Martha A Fast DO, Martha A Eprescribed prescriptions On: 29-Apr-2013 Intent (G8553)By: Fast DO, Martha A Fast DO, Martha A Eprescribed prescriptions On: 19-Feb-2013 Intent (G8553)By: Cherie Fountain FLU VAC, SPLIT, >3 YEARS, INTRAMUSC On: 28-Jan-2013 Intent (72953)By: Fast DO, Martha A Fast Comments: Lot #:[id number] date:mount given:0.5mlRoute: IMSite given: L dltdVIS and ABN signedGiven by: GARETT Washington DO, Martha A IMMUNIZ ADMNIN, 1 VAC, SNGL/COMBO On: 28-Jan-2013 Intent (80620)By: Fast DO, Martha A Fast DO, Martha [...] Martha A Fast DO, Martha A Spirometry (05789)By: Kevin DO, On: 28-May-2012 Intent Martha A Fast DO, Martha A Comments: good effort and curve mild obst Pulse Oximetry (62978)By: Kevin DO, On: 28-May-2012 Intent Martha A Fast DO, Martha A Comments: 98 Breast Screening - BilateralBy: On: 28-May-2012 Intent Fast DO, Martha A Fast DO, Martha A Eprescribed prescriptions On: 28-May-2012 Intent (G8553)By: Patito Tineo Eprescribed prescriptions On: 27-Apr-2012 Intent (G8553)By: Patito Tineo Eprescribed prescriptions On: 13-Feb-2012 Intent (G8553)By: Kevin DO, Martha A Fast DO, Martha A Eprescribed prescriptions On: 30-Jan-2012 Intent (G8553)By: Patito Tineo FLU VAC, SPLIT, >3 YEARS, INTRAMUSC On: 09-Dec-2011 Intent (00956)By: Patito Tineo Comments: Lot #[id number]-4/30/13Site-left deltoidgiven by: Angela Vincent, RETAIL BEAUTY SPECIALIST IMMUNIZ ADMNIN, 1 VAC, SNGL/COMBO On: 09-Dec-2011 Intent (40270)By: Patito Tineo Nuclear Stress Test/Stress On: 22-Nov-2011 [...] A Comments: with 12mm tablet Pulse Oximetry (60920)By: Fast DO, On: 28-Jun-2011 Intent Martha A Fast DO, Martha A Comments: 98 Radiology - Chest- PA and LatBy: On: 28-Jun-2011 Intent Fast DO, Martha A Fast DO, Martha A Comments: stat call wet read Spirometry (72189)By: Fast DO, On: 28-Jun-2011 Intent Martha A Fast DO, Martha A Comments: good effort and curve normal Radiology - ChestBy: Fast DO, Martha On: 07-Jun-2011 Intent A Fast DO, Martha A Comments: PA/LAT (do in 1 month) Eprescribed prescriptions On: 07-Jun-2011 Intent (G8553)By: Fast DO, Martha A Fast DO, Martha A Pulse Oximetry (26708)By: Fast DO, On: 07-Jun-2011 Intent Martha A Fast DO, Martha A Comments: 95 Radiology - Chest- PA and LatBy: On: 07-Jun-2011 Intent Fast DO, Martha A Fast DO, Martha A Comments: call wet read MAMMOGRAM, SCREENING, BOTH BREASTS On: 20-May-2011 Intent (54414)By: Fast DO, Martha A Fast DO, Martha A Ultrasound - ThyroidBy: Fast DO, On: 27-Apr-2011 Intent Martha A Fast DO, Martha A TDAP VACCINE >7 IM (06703)By: On: 27-Apr-2011 Intent Patito Tineo Comments: 2009 FLU VAC, SPLIT, >3 YEARS, INTRAMUSC On: 21-Dec-2010 Intent (26788)By: Patito Tineo Comments: Lot #:[id number] date:mount given:0.5mlRoute: IMSite given:left deltGiven by: GARETT Washington IMMUNIZ ADMNIN, 1 VAC, SNGL/COMBO On: 21-Dec-2010 Intent (76649)By: Patito Tineo EKG (40679)By: Melissa SLOAN Cynthia On: 27-Oct-2010 Intent Comments: [...] BONE DENSITY, AXIAL SKELETON On: 04-May-2010 Intent (33363)By: Patito Tineo MAMMOGRAM, SCREENING, BOTH BREASTS On: 04-May-2010 Intent (33803)By: Patito Tineo Clinical Breast Examination On: 04-May-2010 Intent (G0101)By: Patito Tineo Nuclear Medicine - Bone ScanBy: On: 02-Apr-2010 Intent Fast DO, Martha A Fast DO, Martha A Comments: full body- has neck pain and arthralgias and abnormal sacroiliac joint on xray-w ith focal sclerosis MAMMOGRAM, SCREENING, BOTH BREASTS On: 02-Apr-2010 Intent (47101)By: Martha Brown DO A Kevin Comments: due end of may DO, Martha A Ultrasound - ThyroidBy: Noman, On: 23-Dec-2009 Intent Patito IMMUNIZ ADMNIN, 1 VAC, SNGL/COMBO On: 23-Dec-2009 Intent (20157)By: Fran Brown DOa A Kevin Comments: lot # [id number] 4Pexp- 05/20105446mcjg-YHCYiouas-DDznlh- 0.5ML tolerated well CHenderson RETAIL BEAUTY SPECIALIST DO, Martha A FLU VAC, SPLIT, >3 YEARS, INTRAMUSC On: 23-Dec-2009 Intent (46756)By: Kevin DO, Martha A Fast DO, Martha A Spirometry (57489)By: Kevin SAMUEL, On: 26-Aug-2009 Intent Martha A Fast DO, Martha A Comments: good effort and curve normal Pulse Oximetry (54571)By: Kevin DO, On: 26-Aug-2009 Intent Martha A Fast DO, Martha A Comments: 99 Radiology - Chest- PA and LatBy: On: 26-Aug-2009 Intent Fast DO, Martha A Fast DO, Martha A EKG (23505)By: Kevin DO Martha A On: 02-Jul-2009 Intent [...] DO, Martha A Instructions Name Dates Details Unspecified Diagnosis : How to access health information online Indication: Unspecified Diagnosis Unspecified Diagnosis : How to access health information online - Detail Indication: Unspecified Diagnosis Unspecified Diagnosis : Patient Instructions Indication: Unspecified Diagnosis Acute bacterial bronchitis : How to access [...] Other hyperlipidemia : DISCONTINUED - LIPID PANEL (50474) Indication: Other hyperlipidemia BMI between 19-24,adult : [...] Patient Instructions Indication: Syncope Encounters Review On: 07-Mar-2018 11:04 Encounter Reason: Follow up tests - Date: (03/02 blood work)., [ADDITIONAL REASON] Follow up for chronic medical issues - The patient feels well with minor complai nts (came in over [place] when Dr brown was out for a [...] has had some flank pain Encounter Diagnosis: Unspecified Diagnosis, Smoker, BMI 23.0-23.9, adult, Anxiety (300.00), Acute bronchitis, Lumbosacral radiculopathy due to degenerative joint disease of spine, Gastroesophageal reflux disease without esophagitis, Mild intermittent asthma with acute exacerbation, Primary adrenocortical insufficiency, Thrush, Impaired fasting glucose, Thyroid disorder, Other [...] at site of shot or biopsyaslo saw Donich an d he ordered another mri of neck thoracic [...] urolgoist oct 26- - saw neuro at [facility]- - they think white matter partly migrainous- they looked at her [place] - they going to send to [employer]ist as well- the valium reallyhelping her [...] to treat her until see neuro at [facility]- specialist to help determine- he increased her [...] with her health issues and [facility] health issues - Encounter Diagnosis: Chronic intractable [...] visual acuity (yearly). Note for Physical exam: [facility] Wellness Physical- she is seeing Dr Wilburn on for her back and gettig thoracic mri and sa w painmanagement stillnot comfortable- tried fosamax in past gaver her terrible side effects gi upset , [ADDITIONAL REASON] Follow up, Laboratory Test Results - Date: (08/2015- [facility] Wellness labs). Encounter Diagnosis: BMI between [...] Note for Hip problem: Pt was in [place] last week and slipped on wet ceramic [...] - she saw neurologist dr howard in [place]- he did tilt table table test and [...] no new complaints- seeing pain management at [facility] has good energy level and is sleepin [...] swallowing issues from neck she is sure kev didnt have until neck surgery- she is [...] back in 2005- same surgeon- doing at [place]- she saw Noni who told ehr to [...] able to do more- and is joining [employer] to keep doing the exercises -- bp [...] Dr Gonzalez-- this person now moving to [place]- mentally the aquatherapy is helpi ng- physically [...] (610.2), Hip bursitis 726.5 [facility] HospitalTITA LAW; a guarantor
--- OUTSIDE RECORDS SUMMARY | 2018-05-23 11:35 | XMS RPT_ITS ---
:1960 Author Organization OHIP Support Name Relationship Address Phone ZURI LAW Unavailable [address] + [place] [address] UE Unavailable Unavailable Unavailable ZURI LAW Unavailable [address] + [place] [address] UE Unavailable Unavailable Unavailable ZURI LAW Unavailable [address] + [place] [address] UE Unavailable Unavailable Unavailable ZURI LAW Unavailable [address] + [place] [address] UE Unavailable Unavailable Unavailable ZURI LAW Unavailable [address] + [place] [address] UE Unavailable Unavailable Unavailable ZURI LAW Unavailable [address] + [place] [address] UE Unavailable Unavailable Unavailable ZURI LAW Unavailable [address] + [place] [address] UE Unavailable Unavailable Unavailable ZURI LAW Unavailable [address] + [place] [address] UE Unavailable Unavailable Unavailable ZURI LAW Unavailable [address] + [place] [address] UE Unavailable Unavailable Unavailable ZURI LAW Unavailable [address] + [place] [address] UE Unavailable Unavailable Unavailable ZURI LAW Unavailable [address] + [place] [address] UE Unavailable Unavailable Unavailable ZURI LAW Unavailable [address] + [place] [address] UE Unavailable Unavailable Unavailable ANI ZURI Unavailable [address] + [place] [address] UE Unavailable Unavailable Unavailable ANI ZURI Unavailable [address] + [place] [address] UE Unavailable Unavailable Unavailable ANI ZURI Unavailable [address] + [place] [address] UE Unavailable Unavailable Unavailable ANI ZURI Unavailable [address] + [place] [address] UE Unavailable Unavailable Unavailable ANI ZURI Unavailable [address] + [place] [address] UE Unavailable Unavailable Unavailable Care Team Providers [...] Fast, Rosamaria Primary Care Unavailable Prebish, Maddie [employer] Attending Unavailable Prebish, Maddie [employer] Referring Unavailable Fast, Rosamaria Primary Care Unavailable [...] E55.9 - Vitamin D Fast, Rosamaria Active [place] deficiency, Community unspecified / Hospital E55.9(ICD-10) Repository 10/28/2017 Unknown R51 - Headache / Fast, Rosamaria Active [facility] R51(ICD-10) [facility] Repository 01/11/2016 Active Hypothyroidism, NA Active [facility] unspecified / Clinic Main E03.9(ICD-10) [place] Repository 04/03/2012 Active 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 / Clinic Main E27.49(ICD-10) [place] Repository 06/06/2017 Active Radiculopathy, LUX WALDRON Active [facility] cervical region / S Clinic Other M54.12(ICD-10) [place] Repository 07/28/2017 Unknown M48.061 - Spinal Prebish, Maddie Active [place] stenosis, lumbar [employer] Community region without Hospital neurogenic Repository claudication / M48.061(ICD-10) 05/01/2017 Unknown J18.1 - Lobar Fast, Rosamaria Active [facility] pneumonia, Community unspecified organism Hospital / J18.1(ICD-10) Repository PROCEDURES PROCEDURES No Procedure Records FoundRESULTS RESULTS LIMITED CHEST CT Observed: 03/21/2018 Status: F Source: [place] W/CCTA 12:51 PM [facility] REPOSITORY [facility] Imaging Services [address] [place] [address] w/CCTA MR#: [id number] Acct: [id number] Name: MARCE LAW Rep #: [id number] : 1960 F 57 From: Barrera Nguyen MD PCP: Rosamaria Brown DO Status: REG CLI Study: Limited Chest CT w/CCTA Date of Exam: 03/21/18 Exam# [id number] Ordering Dr: Rosamaria Brown DO STUDY: CT [...] Service support , CC: Rosamaria Brown DO Transfer Station Attendant: Signed CBC W/DIFF, AUTOMATED Collected: 03/02/2018 Status: F Source: [place] 11:12 AM [facility] REPOSITORY TYPE CODE TESTS RESULT OUT OF [...] Lymph 1.71 Performed By: #### L100.0100 #### [facility] [address] [place], [address] COMPREHENSIVE METABOLIC Collected: 03/02/2018 Status: F Source: [place] PROFIL 11:12 AM [facility] REPOSITORY Order Comment: ADD TSH ON TO 0104:C171 LOCATION:[facility]4F Has Patient had X-rays with Contrast this [...] 9 Performed By: #### L500.4050, L500.4100, L501.9520, L501.47595, L506.0400 #### [facility] [address] [place], [place], [address] LIPID PROFILE Collected: 03/02/2018 Status: F Source: [place] 11:12 AM [facility] REPOSITORY Order Comment: ADD TSH ON TO 0104:C171 LOCATION:[facility]-4-F Has Patient had X-rays with Contrast this [...] 15 Performed By: #### L500.4050, L500.4100, L501.9520, L501.23042, L506.0400 #### [facility] [address] [place], [place], [address] THYROID STIM HORMONE Collected: 03/02/2018 Status: F Source: [place] (TSH) 11:12 AM [facility] REPOSITORY Order Comment: ADD TSH ON TO 0104:C171 LOCATION:[facility]-F Has Patient had X-rays with Contrast this admission? N Is Patient on Heparin? N TYPE CODE TESTS RESULT OUT OF RANGE REFERENCE UNITS LAB L501.9520 0.358-3.74 uIU/mL Low TSH 0.15 Performed By: #### L500.4050, L500.4100, L501.9520, L501.72725, L506.0400 #### [facility] [address] [place], [address] FREE T3 Collected: 03/02/2018 Status: F Source: [place] 11:12 AM [facility] REPOSITORY Order Comment: ADD TSH ON TO 0104:C171 LOCATION:3-4-F Has Patient had X-rays with Contrast this admission? N Is Patient on Heparin? N TYPE CODE TESTS RESULT OUT OF RANGE REFERENCE UNITS LAB L501.06335 2.18-3.98 pg/mL Normal FREE T3 3.5 Performed By: #### L500.4050, L500.4100, L501.9520, L501.33245, L506.0400 #### [facility] [address] [place], [address] T4 FREE DIRECT Collected: 03/02/2018 Status: F Source: [place] 11:12 AM [facility] REPOSITORY Order Comment: ADD TSH ON TO 0104:C171 LOCATION:3-4-F Has Patient had X-rays with Contrast this admission? N Is Patient on Heparin? N TYPE CODE TESTS RESULT OUT OF RANGE REFERENCE UNITS LAB L506.0400 0.76-1.46 ng/dL Normal T4 FREE 0.99 DIRECT Performed By: #### L500.4050, L500.4100, L501.9520, L501.71983, L506.0400 #### [facility] [address] [place], [address] HEMOGLOBIN A1C Collected: 03/02/2018 Status: F Source: [place] 11:12 AM [facility] REPOSITORY TYPE CODE TESTS RESULT OUT OF RANGE REFERENCE UNITS LAB L501.9985 4.2-6.3 % Normal HGB A1C 5.8 Performed By: #### L501.9985 #### [facility] [address] [place], [address] ABDOMEN/PELVIS WITH Observed: 02/14/2018 Status: F Source: [place] CONTRAST 8:04 AM [facility] REPOSITORY [facility] Imaging Services [address] [place] [address] Abdomen/Pelvis WITH Contrast MR#: [id number] Acct: [id number] Name: MARCE LAW Rep #: [id number] : 1960 F 57 From: Barrera Nguyen MD PCP: Rosamaria Brown DO Status: REG CLI Study: Abdomen/Pelvis WITH Contrast Date of Exam: 02/14/18 Exam# [id number] Ordering Dr: Chikis Ashley MD STUDY: CT [...] Barrera Nguyen MD at 10:47 EST Tel [phone], Service support , CC: Rosamaria Brown DO; Chikis Ashley MD Transfer Station Attendant: Signed PROGRESS Observed: 02/06/2018 Status: COMPLETED Source: [place] 4:36 PM [facility] REPOSITORY HNO ID: [id number] Author: Luna Garcia Service: (none) Author Type: [...] 379.24, ICD10: H43.393 Please call the office ([phone]) immediately if you notice more flashes of [...] Status: F Source: [place] CONT 12:18 PM [facility] REPOSITORY [facility] Imaging Services [address] [place] [address] Abdomen/Pelvis without Cont MR#: [id number] Acct: [id number] Name: MARCE LAW Rep #: [id number] : 1960 F 57 From: Barrera Nguyen MD PCP: Rosamaria Brown DO Status: REG CLI Study: Abdomen/Pelvis without Cont Date of Exam: 01/08/18 Exam# [id number] Ordering Dr: Rosamaria Brown DO STUDY: CT [...] Barrera Nguyen MD at 13:09 EST Tel [phone], Service support , CC: Rosamaria Brown DO Transfer Station Attendant: Signed CBC W/DIFF, AUTOMATED Collected: 01/08/2018 Status: F Source: [place] 11:56 AM [facility] REPOSITORY TYPE CODE TESTS RESULT OUT OF [...] 1.33 Performed By: #### L100.0100, L500.4050 #### [facility] [address] [place], [address] COMPREHENSIVE METABOLIC Collected: 01/08/2018 Status: F Source: [place] PROFIL 11:56 AM [facility] REPOSITORY TYPE CODE TESTS RESULT OUT OF [...] 9 Performed By: #### L100.0100, L500.4050 #### [facility] [address] [place], [address] URINALYSIS, COMPLETE Collected: 01/01/2018 Status: F Source: [place] 4:45 PM [facility] REPOSITORY Order Comment: How was Urine Obtained? [...] Normal CRYSTAL Performed By: #### L400.0001 #### [facility] [address] [place], [place], [address] Observed: 01/01/2018 Status: F Source: [place] CULTURE, URINE 4:45 PM [facility] REPOSITORY Urine Culture ORGANISM 1: Presumptive E. coli [place] Count 11,000-25,000 Presumptive E. coli: REACTION Amoxacillin/Clavulanic [...] >=320 R (NF) indicates non-formulary drug at [facility]. Approval by Infectious Disease Specialist required before non-formulary drugs may be ordered and/or dispensed. Performed By: #### M100.0650 #### [facility] [address] [place], [address] URGENT CARE VISIT Observed: 12/30/2017 Status: F Source: [place] REPORT 12:45 PM [facility] REPOSITORY [facility] [place] [address] OFFICE VISIT Date of Service: 12/30/17 MR#: [id number] Acct: [id number] Name: MARCE LAW Rep #: [id number] : 1960 Provider: APPLE Casiano Age/Sex: 57/F Location: [facility] Status: Signed Intake Vital Signs12/30/17 Height 5 [...] person, oriented to place, oriented to time [facility] Head: normocephalic Ears: external ears normal, TM's [...] 11/06/2017 Status: F Source: [place] 11:27 AM [facility] REPOSITORY [facility] Imaging Services [address] [place] [address] Brain W/WO Contrast MR#: [id number] Acct: [id number] Name: MARCE LAW Rep #: [id number] : 1960 F 57 From: Pedro Luis Akhtar MD PCP: Rosamaria Brown DO Status: REG CLI Study: Brain W/WO Contrast Date of Exam: 11/06/17 Exam# [id number] Ordering Dr: Rosamaria Brown DO STUDY: MRI [...] Service support , CC: Rosamaria Brown DO Transfer Station Attendant: Signed ERYTHROCYTE SED RATE Collected: 10/28/2017 Status: F Source: [place] 1:22 PM [facility] REPOSITORY TYPE CODE TESTS RESULT OUT OF RANGE REFERENCE UNITS LAB L102.0000 0-30 mm/hr Normal SED RATE 3 Performed By: #### L101.9900, L100.0100 #### [facility] [address] [place], [place], [address] CBC W/DIFF, AUTOMATED Collected: 10/28/2017 Status: F Source: [place] 1:22 PM [facility] REPOSITORY TYPE CODE TESTS RESULT OUT OF [...] 1.79 Performed By: #### L101.9900, L100.0100 #### [facility] [address] [place], [address] HEMOGLOBIN A1C Collected: 10/28/2017 Status: F Source: [place] 1:22 PM [facility] REPOSITORY TYPE CODE TESTS RESULT OUT OF RANGE REFERENCE UNITS LAB L501.9985 4.2-6.3 % Normal HGB A1C 5.7 Performed By: #### L501.9985 #### [facility] [address] [place], [address] COMPREHENSIVE METABOLIC Collected: 10/28/2017 Status: F Source: [facility] 1:22 PM [facility] REPOSITORY TYPE CODE TESTS RESULT OUT OF [...] Performed By: #### L500.4050, L500.4100, L501.6710 #### [facility] [address] [facility] [address] [place], [place], [address] LIPID PROFILE Collected: 10/28/2017 Status: F Source: [place] 1:22 PM [facility] REPOSITORY TYPE CODE TESTS RESULT OUT OF [...] Performed By: #### L500.4050, L500.4100, L501.6710 #### [facility] [address] [place], [place], [address] CRP Collected: 10/28/2017 Status: F Source: [place] 1:22 PM [facility] REPOSITORY TYPE CODE TESTS RESULT OUT OF RANGE REFERENCE UNITS LAB L501.6710 0.0-3.0 mg/L Normal < 2.90 C-REACTIVE PROT Result Comment: C-Reactive Protein (CRP) provides useful information for the diagnosis, therapy and monitoring of inflammatory processes and associated diseases. For the evaluation of Relative Risk for Cardiovascular Disease, a High Sensitivity CRP (HSCRP) should be ordered. Performed By: #### L500.4050, L500.4100, L501.6710 #### [facility] [address] [place], [address] VITAMIN D,25 HYDROXY Collected: 10/28/2017 Status: F Source: [place] 1:22 PM [facility] REPOSITORY TYPE CODE TESTS RESULT OUT OF RANGE REFERENCE UNITS LAB L506.1000 29.95-100.01 ng/mL Normal Vitamin D 36.0 25-OH Result Comment: Vitamin D 25(OH) Status Range Deficiency <20 ng/mL (50nmol/L) Insuffciency 20 - 30 ng/mL (50 - 75 nmol/L) Sufficiency 30 - 100 ng/mL (75 - 250 nmol/L) Toxicity >100 ng/mL (>250 nmol/L) Performed By: #### L506.1000 #### [facility] [address] [place], [address] SCREENING MAMM (CAD), Observed: 08/31/2017 Status: F Source: [place] BILAT 12:56 PM [facility] REPOSITORY [facility] Imaging Services [address] [place] [address] SCREENING MAMM (CAD), BILAT MR#: [id number] Acct: [id number] Name: MARCE LAW Rep #: [id number] : 1960 F 57 From: Barrera Nguyen MD PCP: Rosamaria Brown DO Status: GHADA CLI Study: SCREENING MAMM (CAD), BILAT Date of Exam: 08/31/17 Exam# [id number] Ordering Dr: Rosamaria Brown DO MAMMOGRAPHY - [...] delay biopsy of a clinically suspicious abnormality. [id number] Electronically Signed: Barrera Nguyen MD at 14:24 EDT Tel [phone], Service support , CC: Rosamaria Brown DO Transfer Station Attendant: Signed DEXA BONE DENSITY Observed: 08/31/2017 Status: F Source: [place] STUDY 12:39 PM [facility] REPOSITORY [facility] Imaging Services [facility] [place] [address] Dexa Bone Density Study MR#: [id number] Acct: [id number] Name: MARCE LAW Rep #: [id number] : 1960 F 57 From: Barrera Nguyen MD PCP: Rosamaria Brown DO Status: REG CLI Study: Dexa Bone Density Study Date of Exam: 08/31/17 Exam# [id number] Ordering Dr: Rosamaria Brown DO STUDY: DUAL [...] Barrera Nguyen MD at 15:16 EDT Tel [phone], Service support , CC: Rosamaria Brown DO Transfer Station Attendant: Signed PT D/C SUMMARY (1) Observed: 07/27/2017 Status: F Source: [place] 5:39 PM [facility] REPOSITORY [facility] Therapy [address] [place] [address] Fax REHABILITATION SERVICES DISCHARGE SUMMARY MR#: [id number] Acct: [id number] Name: MARCE LAW Rep #: [id number] : 1960 57 From: Lux Miller PT, Cert. T, OCS Referring DrIfeanyi: Maddie Fernandezsegundo Status: REG RCR Insurance: [facility] SELF PAY INSURANCE HP - PT [...] please feel free to call me at [phone]. Thank you for the referral of this patient. Sincerely, Lux Miller PT, <Electronically signed by Lux Miller PT, Cert. MDT, [facility]> 07/27/17 1739 CC: Maddie Munoz; Rosamaria Brown DO LISHA Signed WILD Observed: 07/19/2017 Status: COMPLETED Source: [place] 12:00 AM [facility] REPOSITORY Telephone (ENDOMN) MARCE LAW ([id number]) 1960 F Date Time Provider Department 07/19/17 ALICE CARTER During your visit today, we recorded the following information about you: Sierra Short [facility] 07/19/2017 4:42 PM Signed Patient called the [...] a inhaler Patient can be reached at [phone] Alice Carter MD 07/21/2017 2:55 PM Signed [...] 8.0 Direct Renin pg/mL 34.9 Sierra Harris [facility] 07/26/2017 9:11 AM Signed Patient called the office back Patient can be reached before 3pm today and tomorrow before 1pm at [phone] (H) Alice Carter MD 07/27/2017 1:02 PM Signed [...] 01:48 PM Modules accepted: Orders Sierra Harris [facility] 08/01/2017 2:33 PM Signed Patient called the office again requesting a call back at [phone] (N) Alice Carter MD 08/01/2017 5:02 PM Signed [...] 08/01/2017 5:02 PM Signed Addended by: ALICE CARETR MD on: 08/01/2017 05:02 PM Modules accepted: [...] 3 TIME Collected: 07/13/2017 Status: F Source: [facility] 2:08 PM [facility] REPOSITORY TYPE CODE TESTS RESULT OUT OF [...] cortrosyn stimulation. Performed By: #### ACTHST #### [facility] [address] [place] [id number] CNNURSE Observed: 07/13/2017 Status: COMPLETED Source: [place] 1:00 PM [facility] REPOSITORY Nurse Visit (ENDOMN) MARCE LAW ([id number]) 1960 F Date Time Provider Department 07/13/17 1:00 PM NURSE ENDO MAIN ENDOMN During your visit today, we recorded the following information about you: Referring Provider: ALICE CARTER [[id number]] Allergies As of Date: 07/13/2017 Noted Allergy [...] FREE T3 Collected: 07/13/2017 Status: F Source: [place] 12:32 PM [facility] REPOSITORY TYPE CODE TESTS RESULT OUT OF RANGE REFERENCE UNITS LAB FREET3 2.3-4.1 pg/mL Free T3 2.5 Performed By: #### FREET3, FT4, FSH, LH, CMP, TSH, PROL, ACTH, RENIND, ILGF1, CRISTIAN #### [facility] [employer] [address] [place] [phone] #### ADRENL #### [facility] [address] [place] [phone] FREE T4 Collected: 07/13/2017 Status: F Source: [place] 12:32 PM [facility] REPOSITORY TYPE CODE TESTS RESULT OUT OF RANGE REFERENCE UNITS LAB FT4 0.9-1.7 ng/dL Free T4 1.0 Performed By: #### FREET3, FT4, FSH, LH, CMP, TSH, PROL, ACTH, RENIND, ILGF1, CRISTIAN #### [place] [address] #### ADRENL #### [facility] [employer] [address] [place] [address]. [place] [address] FSH Collected: 07/13/2017 Status: F Source: [place] 12:32 PM [facility] [place] REPOSITORY TYPE CODE TESTS RESULT OUT OF RANGE REFERENCE UNITS LAB FSH mU/mL FSH 129.2 Result Comment: Reference range: Follicular: 2-11 Midcycle: 10-30 Luteal: 1-9 Post Audelia: 20-100 Performed By: #### FREET3, FT4, FSH, LH, CMP, TSH, PROL, ACTH, RENIND, ILGF1, CRISTIAN #### [place] [address] [place] [phone] #### ADRENL #### [facility] [address] [place] [phone] LH Collected: 07/13/2017 Status: F Source: [facility] 12:[address] [facility] REPOSITORY TYPE CODE TESTS RESULT OUT OF RANGE REFERENCE UNITS LAB LH mU/mL LH 33.9 Result Comment: Reference range: Follicular: 1-12 Midcycle: 20-90 Luteal: 1-10 Post Audelia: >20 Performed By: #### FREET3, FT4, FSH, LH, CMP, TSH, PROL, ACTH, RENIND, ILGF1, CRISTIAN #### [place] [phone] #### ADRENL #### [facility] [address] [place] [phone] COMP METABOLIC PANEL Collected: 07/13/2017 Status: F Source: [place] 12:32 PM [facility] REPOSITORY TYPE CODE TESTS RESULT OUT OF REFERENCE UNITS RANGE LAB TP 6.3-8.0 g/dL Protein, Total 7.7 LAB ALB 3.9-4.9 g/dL Albumin High 5.0 LAB CA 8.5-10.2 mg/dL Calcium, Total 9.8 LAB TBIL 0.2-1.3 mg/dL Bilirubin, Total 0.4 LAB ALKP 32-117 U/L Alkaline Phosphatase 43 LAB AST 13-35 U/L AST 21 LAB GLU 74-99 mg/dL Glucose 89 Result Comment: The [place] Diabetes Association (ADA) provides guidance for cutoff [...] Standards of Medical Care in Diabetes 2016, French Diabetes Association. Diabetes Care. 2016.39(Suppl 1). LAB [...] TSH, PROL, ACTH, RENIND, ILGF1, CRISTIAN #### [facility] [address] [place], [place] [address] #### ADRENL #### [facility] [place] [id number] [facility]. [place] [phone] TSH Collected: 07/13/2017 Status: F Source: [place] 12:32 PM [facility] REPOSITORY TYPE CODE TESTS RESULT OUT OF RANGE REFERENCE UNITS LAB TSH 0.400-5.500 uU/mL TSH 0.955 Performed By: #### FREET3, FT4, FSH, LH, CMP, TSH, PROL, ACTH, RENIND, ILGF1, CRISTIAN #### [place] [phone] #### ADRENL #### [facility] [address] [place] [address]. [phone] PROLACTIN Collected: 07/13/2017 Status: F Source: [place] 12:32 PM [facility] REPOSITORY TYPE CODE TESTS RESULT OUT OF REFERENCE UNITS RANGE LAB PROL 4.5-26.8 ng/mL Prolactin 7.0 Performed By: #### FREET3, FT4, FSH, LH, CMP, TSH, PROL, ACTH, RENIND, ILGF1, CRISTIAN #### [place] [phone] #### ADRENL #### [facility] [address] [place] [address]. [place] [phone] ACTH Collected: 07/13/2017 Status: F Source: [place] 12:32 PM [facility] REPOSITORY TYPE CODE TESTS RESULT OUT OF RANGE REFERENCE UNITS LAB ACTH <47 pg/mL ACTH 10 Performed By: #### FREET3, FT4, FSH, LH, CMP, TSH, PROL, ACTH, RENIND, ILGF1, CRISTIAN #### [place] [phone] #### ADRENL #### [facility] [address] [place] [address]. [place] [phone] DIRECT RENIN Collected: 07/13/2017 Status: F Source: [place] 12:32 PM [facility] REPOSITORY TYPE CODE TESTS RESULT OUT OF REFERENCE UNITS RANGE LAB RENDI pg/mL Direct Renin 34.9 Result Comment: Renin Reference Range, 41-99 years: Upright: 3.6-81.6 pg/mL Supine: 2.5-45.1 pg/mL Performed By: #### FREET3, FT4, FSH, LH, CMP, TSH, PROL, ACTH, RENIND, ILGF1, CRISTIAN #### [facility] [employer] [facility] [place] [address] #### ADRENL #### [employer] [address] [place] [address]. [place] [phone] INSULIN LIK GR FAC 1 Collected: 07/13/2017 Status: F Source: [place] 12:32 PM [facility] [place] REPOSITORY TYPE CODE TESTS RESULT OUT OF REFERENCE UNITS RANGE LAB ILGF1 57-236 ng/mL Insulin Lik Gr 99 Fac 1 Performed By: #### FREET3, FT4, FSH, LH, CMP, TSH, PROL, ACTH, RENIND, ILGF1, CRISTIAN #### [place] [phone] #### ADRENL #### [employer] [place] [phone] ALDOSTERONE Collected: 07/13/2017 Status: F Source: [place] 12:32 PM [facility] REPOSITORY TYPE CODE TESTS RESULT OUT OF [...] TSH, PROL, ACTH, RENIND, ILGF1, CRISTIAN #### [facility] [employer] [address] [place] [address] #### ADRENL #### [facility] [address] [place] [address]. [place] [phone] ADRENAL ANTIBODIES Collected: 07/13/2017 Status: F Source: [place] 12:32 PM [facility] REPOSITORY TYPE CODE TESTS RESULT OUT OF REFERENCE UNITS RANGE LAB ADRLAB < 1:2 titer Adrenal Antibodies <1:2 Result Comment: (NOTE) This test was developed and its analytical performance characteristics have been determined by [facility]. It has not been cleared or approved by the [place] Food and Drug Administration. This assay has been validated pursuant to the CLIA regulations and is used for clinical purposes. @ Test Performed By: [facility] [place] Trevor Ragland M.D., Ph.D., Improvement Nurse [address] [place] [address] CLIA #[id number] Performed By: #### FREET3, FT4, FSH, LH, CMP, TSH, PROL, ACTH, RENIND, ILGF1, CRISTIAN #### [facility] [address] [place] [place] [id number] #### ADRENL #### [facility] [address] [place] [address]. [place] [address] PROGRESS Observed: 07/13/2017 Status: COMPLETED Source: [place] 11:17 AM [facility] REPOSITORY HNO ID: [id number] Author: Alice Carter Service: (none) Author Type: Physician Type: Progress Notes Filed: 07/18/2017 5:40 PM Note Text: F/u for: Hypothyroidism Adrenal insufficiency. Critical access hospital 12/22/2016 Patient has long standing hypothyrodism Also with adrenal insufficiency Since last visit, there was a miscommunication and prednisone was weaned off Patient miserable now for several mo Unfortunately, despite [employer] messages, I was not aware Lot of lightheadedness, dizziness, salt craving, and fatigue Very difficult to complete usual functions of life Here to discuss thyroid and steroid doses pmhx significant for head injuries - falling on ceramic floor, injury to head, etc Reports that in 6307-2913, she had two episodes unconsciousness at home [...] bedtime. 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 CNOV Observed: 07/13/2017 Status: COMPLETED Source: [place] 10:50 AM [facility] REPOSITORY Office Visit (ROGELIO) MARCE LAW ([id number]) 1960 F Date Time Provider Department 07/13/17 10:50 AM ALICE CARTER During your visit today, we recorded the following information about you: Temperature Pulse Blood pressure Weight 98.6 degrees 78/minute 105/66 68.6 kg Height 1.685 m Alice Carter MD 07/18/2017 5:40 PM Signed F/u for: Hypothyroidism Adrenal insufficiency. Critical access hospital 12/22/2016 Patient has long standing hypothyrodism Also with adrenal insufficiency Since last visit, there was a miscommunication and prednisone was weaned off Patient miserable now for several mo Unfortunately, despite [employer] messages, I was not aware Lot of lightheadedness, dizziness, salt craving, and fatigue Very difficult to complete usual functions of life Here to discuss thyroid and steroid doses pmhx significant for head injuries - falling on ceramic floor, injury to head, etc Reports that in 0247-3462, she had two episodes unconsciousness at home [...] as appropriate. Please see relevant sections [facility] for details. Physical Exam: BP [...] bedtime. 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 - [...] Order(s):ACTH STIMULATION,3 TIME POINTS [SQACTHST] Order #: [id number] FUTURE ACTH BLD [SQACTH] Order #: [id number] FUTURE cosyntropin (CORTROSYN) 0.25 mg injectionGive 0.25 mg IM after baseline labs drawnDisp: 0.25 mgRfl: 0 T4 FREE/FREE THYROX [SQFT4] Order #: [id number] FUTURE T3 FREE BLD [SQFREET3] Order #: [id number] FUTURE ADRENAL AB BLD [SQADRENL] Order #: [id number] FUTURE TSH BLD [SQTSH] Order #: [id number] FUTURE PROLACTIN BLD [SQPROL] Order #: [id number] FUTURE COMP METABOLIC PANEL [SQCMP] Order #: [id number] FUTURE FSH BLD [SQFSH] Order #: [id number] FUTURE LUTEINIZING HORMONE [SQLH] Order #: [id number] FUTURE INSULIN LIK GR FAC I [SQILGF1] Order #: [id number] FUTURE predniSONE (DELTASONE) 2.5 mg tabletTake 1 tablet by mouth twice daily.Disp: 180 tabletRfl: 3 ALDOSTERONE BLD [SQALDO] Order #: [id number] FUTURE DIRECT RENIN PLASMA [SQRENIND] Order #: [id number] FUTURE Prescriptions as of 07/13/2017 Sig: CYCLOSPORINE [...] 06/28/2017 Status: F Source: [place] 3:54 PM [facility] REPOSITORY [facility] Imaging Services [address] [place], [place] [address] [address] Forearm 2 Views MR#: [id number] Acct: [id number] Name: MARCE LAW Rep #: [id number] : 1960 F 56 From: Jam Thomas MD PCP: Rosamaria Brown DO Status: REG CLI Study: Forearm 2 Views Date of Exam: 06/28/17 Exam# [id number] Ordering Dr: Rosamaria Brown DO STUDY: X-RAY [...] Service support , CC: Rosamaria Brown DO Transfer Station Attendant: Signed WRIST MIN 3 VIEWS Observed: 06/28/2017 Status: F Source: [place] 3:54 PM [facility] REPOSITORY [facility] Imaging Services [address] [place] [address] Wrist min 3 Views MR#: [id number] Acct: [id number] Name: MARCE LAW Rep #: [id number] : 1960 F 56 From: Jam Thomas MD PCP: Rosamaria Brown DO Status: REG CLI Study: Wrist min 3 Views Date of Exam: 06/28/17 Exam# [id number] Ordering Dr: Rosamaria Brown DO STUDY: X-RAY [...] Service support , CC: Rosamaria Brown DO Transfer Station Attendant: Signed BRAIN/HEAD WITHOUT Observed: 06/28/2017 Status: F Source: [place] CONTRAST 3:30 PM [facility] REPOSITORY [facility] Imaging Services [address] [place] [address] Brain/Head without Contrast MR#: [id number] Acct: [id number] Name: MARCE LAW Rep #: [id number] : 1960 F 56 From: Krzysztof Rivera MD PCP: Rosamaria Brown DO Status: REG CLI Study: Brain/Head without Contrast Date of Exam: 06/28/17 Exam# [id number] Ordering Dr: Rosamaria Brown DO STUDY: CT [...] Service support , CC: Rosamaria Brown DO Transfer Station Attendant: Signed CBC W/DIFF, AUTOMATED Collected: 06/22/2017 Status: F Source: [place] 11:37 AM [facility] REPOSITORY TYPE CODE TESTS RESULT OUT OF [...] Lymph 2.05 Performed By: #### L100.0100 #### [facility] [address] [place], [address] COMPREHENSIVE METABOLIC Collected: 06/22/2017 Status: F Source: [facility] 11:37 AM [facility] REPOSITORY TYPE CODE TESTS RESULT OUT OF [...] 8 Performed By: #### L500.4050, L500.4100 #### [facility] [address] [place], [place], [address] LIPID PROFILE Collected: 06/22/2017 Status: F Source: [place] 11:37 AM [facility] REPOSITORY TYPE CODE TESTS RESULT OUT OF [...] 16 Performed By: #### L500.4050, L500.4100 #### [facility] [address] [place], [place], [address] HEMOGLOBIN A1C Collected: 06/22/2017 Status: F Source: [place] 11:37 [facility] REPOSITORY TYPE CODE TESTS RESULT OUT OF RANGE REFERENCE UNITS LAB L501.9985 4.2-6.3 % Normal HGB A1C 5.9 Performed By: #### L501.9985 #### [facility] [address] [place], [address] CT MYELOGRAM CERVICAL Observed: 06/06/2017 Status: F Source: [place] 10:17 AM CLINIC OTHER CAMPUS REPOSITORY * * *Final Report* * * DATE OF EXAM: Jun 06 2017 10:17AM [facility] [place] MYELOGRAM CERVICAL / PROCEDURE [...] the ventral aspect of the overlying cord. Transfer Station Attendant: VICKY Transcribe Date/Time: Jun 06 2017 10:32A Dictated by : DICKSON CA MD This examination was interpreted and the report reviewed and electronically signed by: DICKSON CA MD on Jun 06 2017 10:44AM EST [id number] CT MYELOGRAM THORACIC Observed: 06/06/2017 Status: F Source: [place] 10:17 AM [facility] OTHER CAMPUS REPOSITORY * * *Final Report* * * DATE OF EXAM: Jun 06 2017 10:17AM [facility] [place] MYELOGRAM THORACIC / PROCEDURE [...] calcified lymph node suggests remote granulomatous infection. Transfer Station Attendant: VICKY Transcribe Date/Time: Jun 06 2017 10:46A Dictated by : DICKSON CA MD This examination was interpreted and the report reviewed and electronically signed by: DICKSON CA MD on Jun 06 2017 10:48AM EST [id number] IR XR MYELOGRAM Observed: 06/06/2017 Status: F Source: [facility] 10:15 AM [facility] OTHER CAMPUS REPOSITORY * * *Final Report* * * DATE OF EXAM: Jun 06 2017 10:15AM [facility] 0890 - IR XR MYELOGRAM CERVICAL / [...] thoracic spine. Please see the CT reports. Transfer Station Attendant: VICKY Transcribe Date/Time: Jun 06 2017 3:33P Dictated by : LUX WALDRON MD This examination was interpreted and the report reviewed and electronically signed by: LUX WALDRON MD on Jun 06 2017 3:37PM EST XR CERVICAL 2V Observed: 06/06/2017 Status: F Source: [place] FLEX/EXT 10:15 AM CLINIC OTHER CAMPUS REPOSITORY [...] with some movement between flexion and extension. Transfer Station Attendant: VICKY Transcribe Date/Time: Jun 06 2017 3:37P Dictated by : LUX WALDRON MD This examination was interpreted and the report reviewed and electronically signed by: LUX WALDRON MD on Jun 06 2017 3:38PM EST [id number] OP NOT Observed: 06/06/2017 Status: COMPLETED Source: [place] 10:04 AM [facility] OTHER [place] REPOSITORY HNO ID: [id number] Author: Lux Waldron Service: Radiology Author Type: Physician Type: Brief Op Note Filed: 06/06/2017 10:04 AM Note Text: BRIEF OPERATIVE NOTE Patient Name: Marce Law Log ID: [id number] Surgery Date: 06/06/2017 Surgeon(s) and Core Measures Abstractor(s): Surgeon(s) and Role: * Lux Waldron - [...] PT ED Observed: 06/06/2017 Status: COMPLETED Source: [place] 8:17 AM [facility] REPOSITORY HNO ID: [id number] Author: Elliot Momin RN Service: Nursing Author Type: Registered Nurse Type: Patient Education Filed: 06/06/2017 8:18 AM Note Text: PATIENT EDUCATION TOPIC: PROCEDURE / SURGERY: Pre-op Teaching: PATIENT NAME: Marce Law PATIENT LOCATION: [place] RAD IR/[place] RAD IR READINESS TO LEARN COGNITIVE ABILITY: [...] RN CBC Collected: 06/06/2017 Status: F Source: [place] 8:15 AM [facility] OTHER CAMPUS REPOSITORY TYPE CODE TESTS RESULT [...] 9.3 Performed By: #### CBC, PT #### [facility] [address] [place] [address] PROTIME Collected: 06/06/2017 Status: F Source: [place] 8:15 AM [facility] OTHER CAMPUS REPOSITORY TYPE CODE TESTS RESULT OUT OF RANGE REFERENCE UNITS LAB PSEC 9.7-13.0 sec PT Sec 10.2 LAB INR 0.9-1.3 PT INR 1.0 Result Comment: Vitamin K Antagonist (VKA) Therapeutic Range: INR 2 to 3 (Target INR of 2.5) Note: For patients treated with VKA drugs, such as warfarin, the [employer] 2012 Guideline recommends [...] Chest 2012, 141:7S-47S Mihir GUO et al. [facility] 2017, 70: 252-289 Performed By: #### CBC, PT #### [facility] [address] [place] [address] PROGRESS Observed: 06/01/2017 Status: COMPLETED Source: [place] 11:19 AM [facility] REPOSITORY HNO ID: [id number] Author: Alex (Od) Deric Service: (none) Author Type: SR. UNIX SYSTEM ADMINISTRATOR Type: Progress Notes Filed: 06/01/2017 11:20 AM [...] technical staff. I have seen and examined aMrce Law. I have discussed the examination findings, diagnosis, and treatment options with Marce Law and/or her family. I have also reviewed and agree with the assessment and plan as stated above and agree with all its relevant components. I gave the patient the opportunity to ask questions about the findings, diagnosis, and treatment options. HOSP Observed: 05/18/2017 Status: COMPLETED Source: [place] 12:00 AM [facility] OTHER CAMPUS REPOSITORY Patient:Marce Law MRN: <[id number]> Height:5' 6.535(1.69 m) Weight:145 lb 8.1 oz [...] 46.0 36.0 Progress Notes (RADIO CT SCAN [facility]): Swetha Zamora, CT, CT 06/06/2017 10:14 AM [...] 06, 2017 10:11 AM Progress Notes ([facility] [place]): Alex Suresh, OD 06/01/2017 11:20 AM Signed [...] or concerns, please contact our office at [phone]. After office hours or on the weekend, please call the telephone sterilizer at [facility] ([phone]) and page Dr. Garcia. PROGRESS Observed: 05/16/2017 Status: COMPLETED Source: [place] 10:13 AM [facility] REPOSITORY O ID: [id number] Author: Eusebio Braswell Jr. Service: (none) Author [...] units) Date Value 08/09/2016 Negative URINLAYSIS Specific [place], Ur Date Value Ref Range Status 02/23/2017 [...] lumbar or lumbosacral intervertebral disc - Dysphagia, unspecified(327.33) - Enthesopathy of hip region - Esophageal [...] dysarthria; comprehension, naming, repetition intact. 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 Fund of knowledge grossly normal [...] with more than 50% of the total dwif-go-ysam time of the visit in counseling / coordination of care. CNOV Observed: 05/16/2017 Status: COMPLETED Source: [place] 9:40 AM [facility] REPOSITORY Office Visit (NEURMM) MARCE LAW ([id number]) 1960 F Date Time Provider Department 05/16/17 [...] units) Date Value 08/09/2016 Negative URINLAYSIS Specific [place], Ur Date Value Ref Range Status 02/23/2017 [...] dysarthria; comprehension, naming, repetition intact. 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 Fund of knowledge grossly normal [...] with more than 50% of the total bfje-la-ggzp time of the visit in counseling / coordination of care. Referring Provider: ROSAMARIA BROWN [[id number]] Allergies As of Date: 05/16/2017 Noted Allergy [...] [R41.82] Order(s):CONSULT TO PSYCHIATRY [9035] Order #: [id number]: 1 Prescriptions as of 05/16/2017 Sig: CYCLOSPORINE [...] TABLET Take 10 mg by mouth three aleajndro* * COMPOUNDED PRESCRIPTION vitamin D3--1999units Problem List [...] 05/01/2017 Status: F Source: [place] 11:53 AM [facility] REPOSITORY [facility] Imaging Services [address] [place] [address] Chest PA and Lateral MR#: [id number] Acct: [id number] Name: MARCE LAW Rep #: [id number] : 1960 F 56 From: Murray Palma MD PCP: Rosamaria Brown DO Status: REG CLI Study: Chest PA and Lateral Date of Exam: 05/01/17 Exam# [id number] Ordering Dr: Rosamaria Brown DO STUDY: X-RAY [...] Service support , CC: Rosamaria Brown DO Transfer Station Attendant: Signed CBC W/DIFF, AUTOMATED Collected: 04/20/2017 Status: F Source: [place] 10:26 AM [facility] REPOSITORY TYPE CODE TESTS RESULT OUT OF [...] Lymph 3.42 Performed By: #### L100.0100 #### [facility] [address] [place], [place], [address] EBV ACUTE PROF IGG Collected: 04/20/2017 Status: F Source: [place] / IGM 10:26 AM [facility] REPOSITORY TYPE CODE TESTS RESULT OUT OF RANGE REFERENCE UNITS LAB L3100.5900 0.0-35.9 U/mL Normal EB-VCA < 36.0 [id number] Result Comment: Negative <36.0 Equivocal 36.0 - 43.9 Positive >43.9 LAB L3100.6000 0.0-8.9 U/mL High EB-EA IgG 49.1 24756 Result Comment: Hepatitis A, Hepatitis C and HIV antibodies may cross-react with this assay. Negative < 9.0 Equivocal 9.0 - 10.9 Positive >10.9 LAB L3100.6100 0.0-17.9 U/mL High EB-VCA 226.0 [id number] Result Comment: Negative <18.0 Equivocal 18.0 - 21.9 Positive >21.9 LAB L3100.6200 0.0-17.9 U/mL High EB-NAg > [id number] 600.0 Result Comment: Negative <18.0 Equivocal 18.0 [...] - Antibody Absent Performed at: - [facility] [address] [id number] Instrument Specialist: Sean Daniel PhD, Phone: [phone] Performed By: #### L3100.5850 #### [facility] (refer to report for specific site) refer to report for address and phone number DISCHARGE INSTRUCTION Observed: 04/15/2017 Status: F Source: [place] 6:14 PM [facility] REPOSITORY [facility] Medical Records Department [address] [place] [address] Discharge Instruction 04/15/17 1813 MR#: [id number] Acct: [id number] Name: ANIMARCE Rep #: [id number] : 1960 56 From: Dusty Dumont MD [...] problems, contact your Primary Care Provider. Call [facility] ([phone]) or report to the closest Emergency Room. Call 911 if necessary. 04/15/171813 <Electronically signed by Dusty Dumont MD> Date Dusty Dumont MD Cosigner Signature (If Indicated): Date CC: Rosamaria Brown DO EMERGENCY DEPARTMENT Observed: 04/15/2017 Status: F Source: [place] SUMMARY 6:13 PM [facility] REPOSITORY [facility] Medical Records Department [address] [facility] [place] [address] Emergency Department Summary 04/15/171810 MR#: [id number] Acct: [id number] Name: MARCE LAW Rep #: [id number] : 1960 56 From: Dusty Dumont MD [...] acquired pneumonia This note was generated with [employer] dictation software. It may contain incorrect words, [...] your Primary Care Provider. Call [facility] ([phone]) or report to the closest Emergency Room. Call 911 if necessary. 04/15/171812 <Electronically signed by Dusty Dumont MD> Date Dusty Dumont MD Cosigner Signature (If Indicated): Date CC: Rosamaria Brown DO Observed: 04/15/2017 Status: F Source: [place] INFLUENZA A+B (RAPID 5:00 PM [facility] JIMI) REPOSITORY Has pt arrived? Y FLU A/B Rapid Negative test results should be confirmed by culture. Order Rapid Viral Culture for Influenzae A+B ([id number]) if clinically indicated. Influenza Ag, Direct Presumptive NEGATIVE for Influenza A/B Antigen (See Note) Performed By: #### M101.0101 #### [facility] [address] [place], [address] Observed: 04/15/2017 Status: F Source: [place] RESPIRATORY PANEL 5:00 PM [facility] MOLECULAR REPOSITORY Has pt arrived? Y RP [...] acid amplification Performed By: #### M100.638 #### [facility] [address] [place], [address] CBC W/DIFF, AUTOMATED Collected: 04/15/2017 Status: F Source: [place] 4:37 PM [facility] REPOSITORY TYPE CODE TESTS RESULT OUT OF [...] Lymph 2.00 Performed By: #### L100.0100 #### [facility] [address] [place], [address] BASIC METABOLIC Collected: 04/15/2017 Status: F Source: [place] PROFILE (BMP) 4:37 PM [facility] REPOSITORY TYPE CODE TESTS RESULT OUT OF [...] GAP 8 Performed By: #### L500.2500 #### [facility] [address] [place], [address] CHEST PA AND LATERAL Observed: 04/15/2017 Status: F Source: [place] 4:26 PM [facility] Imaging Services [address] [place] [address] Chest PA and Lateral MR#: [id number] Acct: [id number] Name: MARCE LAW Rep #: [id number] : 1960 F 56 From: Erasto Persaud MD PCP: Rosamaria Brown DO Status: REG ER Study: Chest PA and Lateral Date of Exam: 04/15/17 Exam# [id number] Ordering Dr: Dusty Dumont MD STUDY: X-RAY [...] CC: Rosamaria Brown DO; Dusty Dumont MD Transfer Station Attendant: Signed INITAL EVALUATION (1) Observed: 04/03/2017 Status: F Source: [place] - PT 10:17 AM [facility] REPOSITORY [facility] Physical Therapy [facility] [address] [facility] [place] [address] Fax REHABILITATION SERVICES INITIAL EVALUATION MR#: [id number] Acct: [id number] Name: MARCE LAW Rep #: [id number] : 1960 56 From: Lux Miller PT, Cert. MDT, OCS Referring Dr.: Maddie Munoz Status: REG RCR Insurance: [facility] SELF PAY INSURANCE Patient's Visit Information MARCE LAW is a 56 year old F referred to Physical Therapy by [facility] with a diagnosis of L-IVDD,L-STENOSIS,L-SPONDYLOPATHY,MYALGIA. Date of [...] to be FAXED BACK to us at [phone] for Medicare purposes. Please let me know [...] SEVERITY SOURCE 03/06/2018 Drug gabapentin/F0060 Swelling Unknown [facility] Allergy/416 68206(RXNORM) [facility] 544078(SN Repository ED CT) 03/06/2018 Drug pregabalin/F0060 Swelling Unknown [place] [facility] All[facility]/416 33249(RXNORM) [facility] 953869(SNOM Repository ED CT) 04/15/2017 Drug No Known Unknown [place] [facility] Allergy/416 Allergies/B34628 Hospital 590086(SNOM 0388(RXNORM) Repository ED CT) 08/16/2016 Environ/420 SEASONAL OTHER: SEE C [facility] 931969(SNOM ALLERGIES [place] ED CT) Repository ENCOUNTERS ENCOUNTERS ADMIT/DISCHARGE ACCOUNT ADMITTING ENCOUNTER LOCATION SOURCE NUMBER CLASS 03/21/2018 [id number] Ambulatory BMSBuilding:B [place] MS.CF.[facility] Repository 03/21/2018 [id number] Ambulatory [facility] Hospital ing:CT Repository 03/07/2018 [id number] Ambulatory Building:[facility] [place] Practices Repository 03/06/2018 [id number] Ambulatory [facility] ing:SDC Repository 03/02/2018 [id number] [facility] ing:MTLAB Repository 02/14/2018 [id number] Ambulatory [facility] ing:CT Repository 02/06/2018/02/08/20 [id number] Ambulatory [address] Repository 01/08/2018 [id number] Ambulatory [facility] ing:CT Repository 01/01/2018 [id number] Ambulatory [facility] ing:LABSPEC Repository 12/30/2017/12/31/19 [id number] Ambulatory BMSBuilding:B [place] [facility] Repository 11/06/2017 [id number] Ambulatory [facility] ing:MRI Repository 10/28/2017 [id number] Ambulatory [facility] ing:LAB Repository 08/31/2017 [id number] Ambulatory [facility] ing:OPBD Repository 07/13/2017 [id number] Ambulatory [facility] Repository 07/13/2017/07/14/19 [id number] Ambulatory [address] Repository 07/13/2017 [id number] Ambulatory [facility] Repository 07/13/2017/07/20/19 [id number] Ambulatory [address] Repository 06/28/2017 [id number] [facility] [place] [facility] 06/22/2017 [id number] Ambulatory [facility] ing:MTLAB Repository 06/06/2017 [id number] CRISTIANE, Ambulatory [facility] Other [place] Repository 06/01/2017/06/03/19 [id number] Ambulatory [address] Repository 05/22/2017/05/23/19 [id number] Ambulatory [address] ing:PT Repository 05/16/2017/05/17/19 [id number] Ambulatory [address] Repository 05/01/2017 [id number] Ambulatory [facility] ing:HPRAD Repository 04/20/2017 [id number] Ambulatory [facility] ing:MTLAB Repository 04/15/2017/04/15/19 [id number] Emergency [address] ing:ED Repository PAYERS PAYERS ENCOUNTER GUARANTOR PAYER SUBSCRIBER SOURCE 03/21/2018 ZURI T Primary Insurance:[facility] MARCE A [place] [id number] W PACKAGE PLANPolicy MICHALAKDOB: [facility] RDWest Number: [id number] [id number] Repository [address]Nhs: (330) Date:2018-02-07 749 () 03/21/2018 Secondary NOT GIVENUNK [place] Insurance:SELF PAY [facility] Number: Effective Repository Date:2018-03-21 03/21/2018 ZURI T Primary Insurance:[facility] MARCE A [place] [id number] W PACKAGE PLANPolicy [facility] RDWest Number: [id number], [place] [id number] Repository [address]Bzh: (330) Date:2018-02-07 () 03/21/2018 Secondary NOT GIVENUNK [place] Insurance:SELF PAY [facility] Number: Effective Repository Date:2018-02-07 03/07/2018 MARCE A Primary Zuri T [facility] ANGELAOB: Insurance:[facility]: Repository [place] [id number] Number: [address] [place], [place] [id number], [place] [address]Pxl: 330) Date:[id number] [id number]: Name:[phone] (HP) (HP)Tel: [phone], [place] [phone] () [id number]: 03/07/2018 Secondary Zuri T OHIP Practices Insurance:[facility]: [facility] [id number] Number: [address] [id number] [place], [place] Date: - [address]Acm: [id number] ~(3 Name:[facility] [address] ) [address] [place] [address] [id number]: 03/06/2018 ZURI T Primary ZURI T Joaquina [id number] W Insurance:MEDICAL MICHALAKDOB: [facility] [id number] [place] Number: Repository [id number]: 330 [id number] [phone] (HP) Date:3902-63-81QW [address] [place] [id number]: 03/06/2018 Secondary [place]IV[place]UNK [place] Insurance:SELF PAY [facility] Number: Effective Repository Date:2018-02-22 03/02/2018 ZURI T Primary ZURI T Joaquina [id number] W Insurance:[facility]ICAL [facility] DIVISIONKD[facility]: [facility] [id number] [place] Number: Repository [id number]: 330 [id number] [phone] (HP) Date:5740-28-76MR [address] [place] [phone]: 03/02/2018 Secondary NOT GIV[place]UNK [place] Insurance:SELF PAY [facility] Number: Effective Repository Date:2018-03-02 02/14/2018 ZURI T Primary ZURI T Joaquina [id number] W Insurance:MEDICAL MICHALAKDOB: [facility] [id number] [facility], [place] Number: Repository [address]Ico: 330 [id number] [phone] (HP) Date:1959-14-18RC [address] [address]JE: 02/14/2018 Secondary [place]IV[place]UNK [place] Insurance:SELF PAY [facility] Number: Effective Repository Date:2018-02-05 01/08/2018 ZURI T Primary ZURI T [place] [id number] W Insurance:MEDICAL MICHALAKDOB: [facility] [id number] Baptist [facility], [place] Number: Repository [id number]: 330 [id number] [phone] (HP) Date:0706-43-56YD[address] [address]BB: 01/08/2018 Secondary [place]IV[place]UNK [place] Insurance:SELF PAY [facility] Number: Effective Repository Date:2018-01-08 01/01/2018 ZURI T Primary ZURI T [place] [id number] W Insurance:MEDICAL MICHALAKDOB: [facility] [id number] Baptist Hospital, [place] Number: Repository [address]Toa: 330 [id number] [phone] (HP) Date:2962-49-62HU[address] [address]IY: 01/01/2018 Secondary NOT GIVENUNK Joaquina Insurance:SELF PAY [facility] Number: Effective Repository Date:2018-01-01 12/30/2017 ZURI T Primary ZURI T Joaquina [id number] W Insurance:MEDICAL MICHALAKDOB: [facility] [id number] Baptist Hospital, [place] Number: Repository [address]Ugb: 330 [id number] [phone] (HP) Date:2086-27-71FN [address] [place] [phone]: 12/30/2017 Secondary NOT GIVENUNK Joaquina Insurance:SELF PAY [facility] Number: Effective Repository Date:2017-12-30 11/06/2017 ZURI T Primary ZURI T Joaquina [id number] W Insurance:MEDICAL [facility] SERVICESOB: [facility] [id number] [place] Number: Repository [address]Qrg: 330 [id number] [phone] (HP) Date:7050-94-42GD [address] [address]OA: 11/06/2017 Secondary NOT [place]IV[place]UNK [place] Insurance:SELF PAY [facility] Number: Effective Repository Date:2017-11-01 10/28/2017 ZURI T Primary ZURI T Joaquina [id number] W Insurance:[facility]ISIONKDOB: [facility] [id number] [place] Number: Repository [address]Zar: 330 [id number] [phone] (HP) Date:6520-94-22CS [address] [address]GH: 10/28/2017 Secondary NOT GIV[place]UNK [place] Insurance:SELF PAY [facility] Number: Effective Repository Date:2017-10-28 08/31/2017 Zuri T Primary Zuri T Joaquina [id number] W Insurance:MEDICAL [facility]kD[facility]: [facility] [id number] [place] Number: Repository [address]Lbg: 330 [id number] [phone] (HP) Date:4862-77-27IX [address] [address]QN: 08/31/2017 Secondary NOT GIVENUNK Joaquina Insurance:SELF PAY [facility] Number: Effective Repository Date:2017-06-28 06/28/2017 Zuri T Primary Zuri T [place] [id number] W Insurance:MEDICAL [facility] [id number] Cross [facility] [place] Number: Repository [address]Gjx: 330 [id number] [phone] (HP) Date:8960-91-20CP [address] [address]ZK: 06/28/2017 Secondary NOT GIVENUNK Joaquina Insurance:SELF PAY [facility] Number: Effective Repository Date:2017-06-28 06/22/2017 Zuri T Primary Zuri T [place] [id number] W Insurance:MEDICAL [facility] CenterkD[facility]: [facility] [id number] Baptist Hospital, [place] Number: Repository [id number]: 330 [id number] [phone] (HP) Date:2376-41-11MO [address] [address]KC: 06/22/2017 Secondary NOT GIVENUNK [place] Insurance:SELF PAY [facility] Number: Effective Repository Date:2017-06-22 05/22/2017 Zuri T Primary Zuri T [place] [id number] W Insurance:MEDICAL [facility] CenterkD[facility]: [facility] [id number] Baptist Hospital, [place] Number: Repository [address]Ujs: 330 [id number] [phone] (HP) Date:8958-43-85UO [address] [address]VP: 05/22/2017 Secondary NOT GIVENUNK Joaquina Insurance:SELF PAY [facility] Number: Effective Repository Date:2017-03-27 05/01/2017 Zuri T Primary Zuri T Joaquina [id number] W Insurance:MEDICAL [facility] CenterkD[facility]: [facility] [id number] Cross Hospital [place] Number: Repository [address]Ieg: 330 [id number] [phone] (HP) Date:7936-94-95JX [address] [address]WK: 05/01/2017 Secondary NOT GIVENUNK [place] Insurance:SELF PAY [facility] Number: Effective Repository Date:2017-05-01 04/20/2017 Zuri Jackson Primary Zuri Kunz [id number] W Insurance:MEDICAL [facility] CenterkD[facility]: [facility] [id number] [place] Number: Repository [id number]: [phone] [id number] [phone] Date:7736-97-33MC [address] [place] [phone]: 04/20/2017 Secondary NOT GIVENUNK [place] Insurance:SELF PAY [facility] Number: Effective Repository Date:2017-04-20 04/15/2017 Zuri Jackson Primary Zuri Kunz [id number] W Insurance:MEDICAL [facility] HospitalOB: [facility] [id number] [place] Number: Repository [address]Cpx: 330 [id number] [phone] () Date:7051-43-23RE [address] [place] [address]WS: 04/15/2017 Secondary NOT GIVENUNK Joaquina Insurance:SELF PAY [facility] Number: Effective Repository Date:2017-04-15
== END ==
PROVIDERS: Family Provider Internal Medicine; PCP Internal Medicine; Referring Provider Internal Medicine; Visit Provider Internal Medicine
DX: E78.5 Hyperlipidemia, unspecified (principal)
CPT/HCPCS: 75571; 76380

== ENCOUNTER → 2018-03-27 10:23 | Outpatient (CLI) | payer OTHER, SELFPAY ==
[2018-03-21 12:55] VITALS: BMI 23.3
[2018-03-27 11:48] LABS: Thyroid Stim Hormone (TSH) 2.92 uIU/mL (0.358-3.74)
== END ==
PROVIDERS: Family Provider Internal Medicine; PCP Internal Medicine; Referring Provider Internal Medicine; Visit Provider Internal Medicine
DX: E07.9 Disorder of thyroid, unspecified (principal)
CPT/HCPCS: 36415; 84443

== ENCOUNTER 2018-03-30 08:16 | Day surgery (SDC) | payer OTHER, SELFPAY ==
[2018-03-21 12:55] VITALS: BMI 23.3
[2018-03-30] VITALS (7 sets, daily range): BP systolic 101–116; BP diastolic 71–74; PULSE 65–78; RESP 16–18; TEMP 36.1–36.6; O2SAT 97–100; BMI 23.3
--- NOTE | 2018-03-30 | BON_PTH ---
PATIENT: TITA LAW LOC: [facility] [place] U#:[id number] AGE/SX: 57/F ROOM: RE03/30/[address]: WALTER StovallM : 1960 BED: DIS: 03/30/2018 SPEC #: [id number] RECD: 03/30/18 14:23 STATUS: SOUManuel REQ #: [id number] ANIYAH: 03/30/18 00:[address]: Johann Tripathi DEPT: SURGICAL PATHOLOGY RECD BY: Jagdeep Waller ENTERED: 03/30/18 14:23 SP TYPE: Bone OTHR DR: Dr. Martha Shah DO Tissues: A - Bone of foot, NOS B - Nail, NOS Procedures: PAS Fungus (control) Decalcification bone/plaque Special Stain Group I Surgery Specimen Level IV HEADER OPERATION: Exostectomy first toe PRE-OP DIAGNOSIS: Subungual exostosis, ingrown toenail left first toe TISSUE SUBMITTED: A - Subungual exostosis left great toe, B - Left great toenail MICROSCOPIC DIAGNOSIS A. Left great toe, subungual exostosis, biopsy: Fragments of trabecular bone and fibrofatty tissue with no pathologic change. See comment. B. Left great toenail, excision: Fragments of toenail tissue with no significant pathologic change. Negative for fungal organisms. See comment. AM:tiffanie 04/04/18 COMMENT A. There is no evidence of osteomyelitis or inflammation. The findings are consistent with exostosis. Clinical correlation is suggested. B. PASF stain with matched control was used in the evaluation of this case. MICROSCOPIC DESCRIPTION Slides are reviewed. GROSS DESCRIPTION A - Received in fixative is one container labeled with the patient's name and designated left great toe subungual exostosis. The specimen consists of multiple irregular fragments of light lucas bone that in aggregate measure 1 x 0.5 x 0.1 cm. The specimen is submitted in its entirety in one cassette after decalcification. B - Received in fixative is one container labeled with the patient's name and designated left great toenail. The specimen consists of a light lucas nail fragment measuring 1.5 x 1.5 x 0.2 cm. The nail is sectioned and totally submitted in one cassette after decalcification. / AM:tiffanie 03/30/18 TC:5 CPT: 13455 x2, 41144 x2, 95532
[2018-03-30] MEDS: Cefazolin 2 GM in 0.9% Normal Saline 100 ML IV (09:52)
[2018-03-30] MEDS: Bupivacaine Mpf 0.5% 30 ML VIAL (10:06)
--- NOTE | 2018-03-30 10:10 | RAD_ITS ---
STUDY: X-RAY LEFT FOOT, GREAT TOE REASON FOR EXAM: Female, 57 years old. Exostectomy first toe. TECHNIQUE: 2 coned-down intraoperative view(s) of the toe were obtained. COMPARISON: None. FINDINGS: 2 views were obtained intraoperatively for localization. RAD/Toe(s) Min 2 Views IMPRESSION: Intraoperative fluoroscopic services provided for localization. Electronically Signed: Barrera Nguyen MD at 13:21 EST , Service support ,
--- NOTE | 2018-03-30 10:49 | PCM.DC.POD ---
Discharge Diet: Light diet - advance as tolerated Discharge Activity: May Not Drive Weight Bearing Status: Weight bearing as tolerated - Limit weight on left foot Keep extremity elevated above heart level: Left Leg - Keep left foot elevated as much as possible Call your doctor if your incision/area has: Continuous Slow Oozing, Sudden Increased Bleeding, Foul Smelling Discharge Call your doctor if you observe: Fever of 101 or Higher, Shortness of breath, Chest pain, Calf discomfort, Uncontrolled pain Cleanse incision/area with: Do not get Incision Wet, Keep Dressing Clean & Dry - Keep dressing clean, dry and intact until Monday04/02/18 evening, then change dressing to left 1st toe. Clean with soap and clean water, pat dry with clean towel/air dry. Apply thin layer of betadine solution and apply overlying gauze and coban (or coflex) being sure not to apply to tight. Allergies/Adverse Reactions: Allergies gabapentin Adverse Reaction (Verified 03/27/18 15:34) Swelling pregabalin [From Lyrica] Adverse Reaction (Verified 03/27/18 15:34) Swelling Medications to take at Discharge Levothyroxine Sodium [Synthroid] 150 mcg PO SUTUTHSA 12/24/15 Liothyronine Sodium [Cytomel] 5 mcg PO DAILY 12/24/15 busPIRone [Buspar] 20 mg PO TID 12/24/15 predniSONE tablet 5 mg PO DAILY 03/15/16 Calcium Carb/D3/Magnesium/Zinc [Hwxuqqa-Chu-Jjjb-Vit D Tablet] 2 each PO DAILY 03/06/18 Cholecalciferol (Vitamin D3) [Vitamin D3] 2,000 unit PO DAILY 03/06/18 CycloSPORINE Ophthalmic [Restasis Ophthalmic] 1 drop EACH EYE DAILY 03/06/18 Diazepam [Valium] 5 mg PO BID 03/06/18 L. Rhamnosus GG/Inulin [Culturelle Probiotics Capsule] 1 each PO DAILY 03/06/18 Levothyroxine Sodium [Synthroid] 75 mcg PO MOWEFR 03/06/18 Propranolol HCl [Inderal (Beta Axel)] 20 mg PO BID 03/06/18 Rosuvastatin Calcium [Crestor] 20 mg PO QHS 03/06/18 Tizanidine HCl [Zanaflex] 2 mg PO BID 03/06/18 Tizanidine HCl [Zanaflex] 4 mg PO QHS 03/06/18 Topiramate [Topamax] 50 mg PO DAILY 03/06/18 Topiramate [Topamax] 150 mg PO QHS 03/06/18 Vilazodone Hydrochloride [Viibryd] 20 mg PO DAILY 03/06/18 Guaifen/Dextromethorphan/PE [Mucinex Fast-Max Congest-Cough] 1 each PO DAILY 03/27/18 Denosumab [Prolia] 60 mg SQ Q6M 03/30/18 Oxycodone HCl/Acetaminophen [Percocet 5/325] 1 - 2 tab PO Q6H PRN PRN 3 Days #30 tab 03/30/18 The following prescriptions were given: Oxycodone HCl/Acetaminophen [Percocet 5/325] 1 - 2 tab PO Q6H PRN PRN 3 Days #30 tab PRN Reason: Pain Primary Care Physician: Martha Shah DO [Primary Care Provider] - Test Results: Test results from this visit will be discussed in further detail at your follow-up appointment, if applicable. Please Follow Up With: Johann Tripathi DPM When: within 1 week, sooner if needed
--- NOTE | 2018-03-30 10:52 | DCINST_ITS ---
Discharge Diet: Light diet - advance as tolerated Discharge Activity: May Not Drive Weight Bearing Status: Weight bearing as tolerated - Limit weight on left foot Keep extremity elevated above heart level: Left Leg - Keep left foot elevated as much as possible Call your doctor if your incision/area has: Continuous Slow Oozing, Sudden Increased Bleeding, Foul Smelling Discharge Call your doctor if you observe: Fever of 101 or Higher, Shortness of breath, Chest pain, Calf discomfort, Uncontrolled pain Cleanse incision/area with: Do not get Incision Wet, Keep Dressing Clean & Dry - Keep dressing clean, dry and intact until Monday04/02/18 evening, then change dressing to left 1st toe. Clean with soap and clean water, pat dry with clean towel/air dry. Apply thin layer of betadine solution and apply overlying gauze and coban (or coflex) being sure not to apply to tight. Allergies/Adverse Reactions: Allergies gabapentin Adverse Reaction (Verified 03/27/18 15:34) Swelling pregabalin [From Lyrica] Adverse Reaction (Verified 03/27/18 15:34) Swelling Medications to take at Discharge Levothyroxine Sodium [Synthroid] 150 mcg PO SUTUTHSA 12/24/15 Liothyronine Sodium [Cytomel] 5 mcg PO DAILY 12/24/15 busPIRone [Buspar] 20 mg PO TID 12/24/15 predniSONE tablet 5 mg PO DAILY 03/15/16 Calcium Carb/D3/Magnesium/Zinc [Hfzijhn-Ejm-Izgy-Vit D Tablet] 2 each PO DAILY 03/06/18 Cholecalciferol (Vitamin D3) [Vitamin D3] 2,000 unit PO DAILY 03/06/18 CycloSPORINE Ophthalmic [Restasis Ophthalmic] 1 drop EACH EYE DAILY 03/06/18 Diazepam [Valium] 5 mg PO BID 03/06/18 L. Rhamnosus GG/Inulin [Culturelle Probiotics Capsule] 1 each PO DAILY 03/06/18 Levothyroxine Sodium [Synthroid] 75 mcg PO MOWEFR 03/06/18 Propranolol HCl [Inderal (Beta Axel)] 20 mg PO BID 03/06/18 Rosuvastatin Calcium [Crestor] 20 mg PO QHS 03/06/18 Tizanidine HCl [Zanaflex] 2 mg PO BID 03/06/18 Tizanidine HCl [Zanaflex] 4 mg PO QHS 03/06/18 Topiramate [Topamax] 50 mg PO DAILY 03/06/18 Topiramate [Topamax] 150 mg PO QHS 03/06/18 Vilazodone Hydrochloride [Viibryd] 20 mg PO DAILY 03/06/18 Guaifen/Dextromethorphan/PE [Mucinex Fast-Max Congest-Cough] 1 each PO DAILY Denosumab [Prolia] 60 mg SQ Q6M 03/30/18 Oxycodone HCl/Acetaminophen [Percocet 5/325] 1 - 2 tab PO Q6H PRN PRN 3 Days #30 tab 03/30/18 The following prescriptions were given: Oxycodone HCl/Acetaminophen [Percocet 5/325] 1 - 2 tab PO Q6H PRN PRN 3 Days #30 tab PRN Reason: Pain Primary Care Physician: Martha Shah DO [Primary Care Provider] - Test Results: Test results from this visit will be discussed in further detail at your follow- up appointment, if applicable. Please Follow Up With: Johann Tripathi DPM When: within 1 week, sooner if needed
--- NOTE | 2018-03-30 10:54 | OP.PCM_ITS ---
Report of Operation Date of Procedure: 03/30/18 Pre-Operative Diagnosis: Subungual exostosis and ingrown toenail left 1st toe Post-Operative Diagnosis: Same Surgery/Procedure Performed:: Subungual exostectomy with phenol and alcohol matricectomy 1st toe, left foot dry cell tester: yes - Dr. Omar Lauren Type of Anesthesia:: Local MAC Specimen's removed: Left 1st toenail and subunugal exostosis from left 1st toe - sent to pathology Description of Procedure: Indications: This is a 57 year old female with chronic pain to the left 1st toe secondary to subungual exostosis as well as chronic ingrown/deformed toenail. Patient continues to have limiting pain and significant symptoms despite nonsurgical care. Patient would like to proceed with surgical intervention - anthony bungual exostectomy and total nail avulsion w/ P+A matricectomy. We discussed the procedure in great detail. Reviewed the rationale of this with patient in great detail. We discussed all of the possible benefits vs the risks and potential complications in detail. The alternative options were discussed and reviewed with patient in great detail, reviewed all of the risks vs possible benefits of all options. The goals and expectations were discussed and reviewed. The typical post-operative course was reviewed. Patient expressed understanding and agreement. The consent forms were reviewed with patient and the patient freely signed them. No guarantees were given nor implied. Operative Procedure: The patient was brought back to the operating room and was placed on the operative room table in the supine position. A time out was performed, the patient was properly identified and the surgical plan was confirmed. A well padded left ankle pneumatic tourniquet was applied around the ankle. The patient received anesthesia per the anesthesia team. The skin was cleansed with 70% isopropyl alcohol and a total of 10mL of 0.5% Bupivacaine plain was given as a 1st toe block. The left foot was scrubbed, prepped, and draped in the usual aseptic fashion. The left foot was elevated for 3 minutes and the left ankle pneumatic tourniquet was inflated to 250mmHg. Attention was directed to the 1st toe, there was a subungual exostosis present. This was confirmed with intraoperative fluoroscopy. A small skin incision was made to the distal aspect of the 1st toe. Careful dissection was completed down to the dorsal aspect of the distal phalanx at the level of the subungual exostosis. The subungual exostosis was removed using a bone cutting rongeur. The removed exostosis was sent to pathology. The bone was otherwise normal, it was white and hard without any other abnormality present at this time. Proper resection was confirmed using intraoperative fluoroscopy. The site was flushed out with copious amounts of normal saline solution. The skin was reapproximated using 4-0 Nylon. Further attention was directed to the left hallux, it was severely ingrown and deformed, it was significantly dystrophic. The left toenail was avulsed and removed using a hemostat. Phenol was applied to the nail matrix at this site for 30 seconds x 3 applications. The site was flushed with copious amounts of 70% i sopropyl alcohol. The removed toenail was sent to pathology. The pneumatic tourniquet was deflated (total tourniquet time was 15 minutes) and there was immediate return of warmth and perfusion to the foot and all five toes. CFT < 2 seconds to all toes with normal temperature present. A dressing was applied which consisted of Betadine soaked Adaptic, 2x2 gauze and Coban. The patient tolerated the procedure well and the anesthesia well with no complications. The patient was transported from the operating room to the recovery room with vital signs stable and in good condition. Post operative orders were placed. The patient was discharged home with post operative instructions which were reviewed with her and her family who was with her today. Protected weightbearing left foot with use of surgical shoe, keep dressing clean, dry and intact, and change Monday night - instructions were dispensed and reviewed with her - verbal and written. Keep left foot elevated. Percocet was prescribed for post op pain control. She is to follow up with me in 1 week, sooner if needed. Grafts/Implants Used: None - Complications None
== END 2018-03-30 12:39 | disposition home or self-care (01) ==
LOC: SDC 08:16 → AC 08:18
PROVIDERS: Family Provider Internal Medicine; PCP Internal Medicine; Referring Provider Podiatrist; Visit Provider Podiatrist
PROC: (CPT 11750; principal; 2018-03-30 09:15)
PROC: (CPT 11750; 2018-03-30 09:15)
DX: M89.8X9 Other specified disorders of bone, unspecified site (principal); L60.0 Ingrowing nail; E78.00 Pure hypercholesterolemia, unspecified; F41.9 Anxiety disorder, unspecified; E03.9 Hypothyroidism, unspecified; E55.9 Vitamin D deficiency, unspecified; M81.0 Age-related osteoporosis without current pathological fracture; R31.9 Hematuria, unspecified; R73.01 Impaired fasting glucose; Z83.3 Family history of diabetes mellitus; F17.210 Nicotine dependence, cigarettes, uncomplicated; Z79.899 Other long term (current) drug therapy
CPT/HCPCS: 01480; 11750; 28124; 73660; 76000; 88300; 88304; 88305; 88311; 88312; J7120

== ENCOUNTER → 2018-05-09 15:16 | Outpatient (CLI) | payer OTHER, SELFPAY ==
[2018-03-30 08:45] VITALS: BMI 23.3
--- NOTE | 2018-05-09 15:28 | RAD_ITS ---
STUDY: X-RAY - LUMBAR SPINE REASON FOR EXAM: Female, 57 years old. Low back pain TECHNIQUE: 5 view(s) of the lumbar spine were obtained. COMPARISON: 12/31/2015 FINDINGS: Bilateral L5-S1 laminectomies. Bilateral posterior L5-S1 pedicle fusions. No radiographic evidence of hardware failure. Stable grade 1 L5-S1 anterolisthesis. No compression deformities. Diffuse facet disease. RAD/L/S Spine Min 4 Views IMPRESSION: Stable postoperative and degenerative changes. Stable grade 1 L5-S1 anterolisthesis. Electronically Signed: Eusebio Martell MD at 15:48 EDT Tel , Service support ,
== END ==
PROVIDERS: Family Provider Internal Medicine; PCP Internal Medicine; Referring Provider Nurse Practitioner Family; Visit Provider Nurse Practitioner Family
DX: M48.50XA Collapsed vertebra, not elsewhere classified, site unspecified, initial encounter for fracture (principal); M48.061 Spinal stenosis, lumbar region without neurogenic claudication; M46.96 Unspecified inflammatory spondylopathy, lumbar region; M51.36 Other intervertebral disc degeneration, lumbar region; M47.816 Spondylosis without myelopathy or radiculopathy, lumbar region; M96.1 Postlaminectomy syndrome, not elsewhere classified
CPT/HCPCS: 72110

== ENCOUNTER 2018-07-16 11:00 | Outpatient (RCR) | payer OTHER, SELFPAY ==
[2018-03-30 08:45] VITALS: BMI 23.3
--- NOTE | 2018-06-08 09:51 | HP.PTEVAL_ITS ---
Patient's Visit Information TITA LAW is a 57 year old F referred to Physical Therapy by THOR Ridley with a diagnosis of Lumbar. Date of Evaluation: 06/08/18 Physical Therapist: Osiris Edward DPT - Visit Plan Frequency: 2x /Week Duration: 4 Weeks Plan: Aquatics- focus on LE and core s/s with functional mobility and pain management. - Subjective Findings: Has had neck down pain for a long time- has had surgery on her neck and low back. Something has happened and the pain has gotten worse. Feels like she has new bulging discs. The only thing she can think is that she lifted a grocery bag this was about 3-4 weeks ago. Currently she has pain in the left side above the fusion and right side below where the fusion is. She is in pain mgtm and has been having low back pain along the spine on both sides for awhile now. The new place in her back right above the fusion and feel like a ruptured disc. The right leg is bothering her- they want her to have an MRI but needs to do PT first. The right leg feels numb and weaker- not drop foot but doesn't feel like it lifts. Moves around a lot to get comfortable. Can't bounce the right leg anymore. Has done pool therapy and land therapy. Can't walk on a TM due to pain. Does not feel that PT is a retirement solution- feels good at the time but very little carryover. Dr. Urbina who is no longer practicing- out of the [place] area- did both of her fusions. Worst: 09/05 Agg: anything can flare her up. Eases: moving around out of the position Best: 06/06 Sleep: disturbed- side sleeper but moves all night. Can't have injections. Does experience right sided numbness all the way to the toes and around the pelvis she gets sharp stabbing pains. PMHx: spinal fusion lumbar, spinal fusion cervical, osteoporosis thyroid meds, anxiety Meds: hysinglua, citamel, synthroid, prednisone, anxiety medication, prolea injections - Objective Posture: rigid- upright posture guarded. Balance: unable to SLS. HR/TR: right decreased by 50% manuel to left. Gait: slow brittany and decreased trunk rotation and arm swing. Rom: Lumbar: flexion: hands to toes with knees bent Extn: neutral, SB: WFL Rotation: decreased by 50% bilateral, Hip: WFL but reports pain with all movement. Palpation: tender along paraspinals and into the gluts bilaterally. Strength: Core: poor, Hip: Right: 4-/5 throughout Left: 4/5, Knee: Right: 4-/5 Left: 4+/5, Ankle: Right: 4-/5 Left: 4+/5. Flex: HS: severe, Gastroc: severe. Special Test: SLR: positive, Dural Signs: positive on the right. Sensation: diminished on the right in L4-L5-S1 distribution. Reflex: diminished bilaterally patellar and achilles - Goals Goal 1:: Patient will be I with HEP and progression Goal Time Frame: 4-6 Weeks Goal 2:: Patient will maintain proper posture t/o tx session with fluid movement Goal Time Frame: 4-6 Weeks Goal 3:: Patient will demonstrate 4+/5 strength in LE Goal Time Frame: 4-6 Weeks Goal 4:: Patient will report 4/10 pain for 1 week Goal Time Frame: 4-6 Weeks - Rehabilitation Potential Physical Therapy Diagnosis: Patient presents with hypomobility- he has decreased ROM, strength and muscular endurance leading to poor posture and increased pain with ADL's. Rehabilitation Potential: Fair - Anticipated Interventions Patient/Client Instruction: Educate patient on: Benefits of Fitness Program Therapeutic Exercise to Include: Strength training, Endurance training, Balance training, Body mechanics, Postural training, Flexibilty training, Gait and locomotor training, In an aquatic setting, Dynamic Lumbar Stabilization, Scapular Strength/Stabilization For the Purpose of:: To improve muscle performance and motor function Thank you for the opportunity to evaluate your patient. For Medicare and Medicare HMO plans, please review the plan of care and approve it. It will need to be FAXED BACK to us at [phone] for Medicare purposes. For Medicare only, by signing this I certify the plan of care. Please let me know if there are questions or concerns regarding this plan of care. Physician Signature: Date:
--- NOTE | 2018-07-16 12:00 | HP.PTDCSUM ---
HP - PT D/C Summary It has been my pleasure to treat TITA LAW under orders from DANIEL RidleyC, for the diagnosis of Lumbar for a total of 9 visit(s). Discharge Date: Please see the following information for a summary of their discharge status. - Subjective Subjective: Patient reports that she has no real changes- has had a lot of PT and did re-learn a few things that she did not know before. She has added a few exercises to her regimine. Function is not any better. Worst: 10-If she is inactive and with pain meds she is a 5/10. When she is more active it goes back to a 10. Goes back to seet the MD on July 28- and then plans to go see a surgeon (August 01) to see how things are lining up. Does have relief in the pool but there is not carryover - Pain Back Pain Intensity (Out of 10): 6 Neck Pain Intensity (Out of 10): 6 L LE Pain Intensity (Out of 10): Unrated RLE Pain Intensity (Out of 10): Unrated - Objective Objective/Function: No changes since initial evaluation- Posture: rigid- upright posture guarded. Balance: unable to SLS. HR/TR: right decreased by 50% amnuel to left. Gait: slow brittany and decreased trunk rotation and arm swing. Rom: Lumbar: flexion: hands to toes with knees bent Extn: neutral, SB: WFL Rotation: decreased by 50% bilateral, Hip: WFL but reports pain with all movement. Palpation: tender along paraspinals and into the gluts bilaterally. Strength: Core: poor, Hip: Right: 4-/5 throughout Left: 4/5, Knee: Right: 4-/5 Left: 4+/5, Ankle: Right: 4-/5 Left: 4+/5. Flex: HS: severe, Gastroc: severe. Special Test: SLR: positive, Dural Signs: positive on the right. Sensation: diminished on the right in L4-L5-S1 distribution. Reflex: diminished bilaterally patellar and achilles - Goals Goal 1:: Patient will be I with HEP and progression Goal Progress: Goal Met Goal 2:: Patient will maintain proper posture t/o tx session with fluid movement Goal Progress: Not Progressing Goal 3:: Patient will demonstrate 4+/5 strength in LE Goal Progress: Not Progressing Goal 4:: Patient will report 4/10 pain for 1 week Goal Progress: Not Progressing - Plan Plan: Discharge to I - D/C Information If there are questions or concerns regarding this patient's physical therapy, please feel free to call me at [phone]. Thank you for the referral of this patient. Sincerely, WALTER AdhikariT
== END 2018-07-16 19:00 | disposition home or self-care (01) ==
LOC: PT 11:00
PROVIDERS: Family Provider Internal Medicine; PCP Internal Medicine; Referring Provider Nurse Practitioner Family; Visit Provider Nurse Practitioner Family
DX: M51.16 Intervertebral disc disorders with radiculopathy, lumbar region (principal); M48.061 Spinal stenosis, lumbar region without neurogenic claudication; M46.96 Unspecified inflammatory spondylopathy, lumbar region; M47.816 Spondylosis without myelopathy or radiculopathy, lumbar region; M51.36 Other intervertebral disc degeneration, lumbar region; M96.1 Postlaminectomy syndrome, not elsewhere classified; T14.8XXD Other injury of unspecified body region, subsequent encounter
CPT/HCPCS: 97113; 97162; 97164

== ENCOUNTER → 2018-07-21 16:15 | Outpatient (CLI) | payer OTHER, SELFPAY ==
[2018-03-30 08:45] VITALS: BMI 23.3
== END ==
PROVIDERS: Family Provider Internal Medicine; PCP Internal Medicine; Visit Provider Internal Medicine
DX: R19.7 Diarrhea, unspecified (principal)
CPT/HCPCS: 83630; 87177; 87209; 87493; 87506

== ENCOUNTER → 2018-09-03 10:58 | Outpatient (CLI) | payer OTHER, SELFPAY ==
[2018-03-30 08:45] VITALS: BMI 23.3
--- NOTE | 2018-09-03 11:00 | BI_ITS ---
MAMMOGRAPHY - BILATERAL SCREENING REASON FOR EXAM: Female, 58 years old. Routine annual screening examination. PERTINENT HISTORY: Mother with breast cancer. Occasional left breast tenderness. Remote left stereotactic breast biopsy. TECHNIQUE: Digital bilateral breast shereen (3D mammographic acquisition) in the CC and MLO projections. 2-D mediolateral oblique (MLO) and craniocaudad (CC) views of both breasts were obtained. CAD: Full Field Digital Mammography with Computer Added Detection was performed. COMPARISON: Comparison is made with prior study dated August 31, 2017 and August 29, 2016. FINDINGS: Breast Composition: There are scattered areas of fibroglandular density. There are no dominant masses or suspicious calcifications. No other significant abnormalities are identified. There has been no significant change since the prior study. BI/SCREEN MAMM (CAD) W/SHEREEN BILAT IMPRESSION: Stable bilateral screening mammogram. Yearly follow-up mammogram recommended. (A) ASSESSMENT CATEGORY: BIRADS Category 1: Negative. A letter regarding these results will be sent to the patient by the facility within 30 days. Approximately 10% of breast cancers are not detected by mammography. A normal mammogram should not delay biopsy of a clinically suspicious abnormality. [id number] Electronically Signed: Barrera Nguyen, at 12:36 EDT , Service support ,
== END ==
PROVIDERS: Family Provider Internal Medicine; PCP Internal Medicine; Referring Provider Internal Medicine; Visit Provider Internal Medicine
DX: Z12.31 Encounter for screening mammogram for malignant neoplasm of breast (principal); Z80.3 Family history of malignant neoplasm of breast
CPT/HCPCS: 77063; 77067

== ENCOUNTER → 2018-09-07 12:12 | Outpatient (CLI) | payer OTHER, SELFPAY ==
[2018-03-30 08:45] VITALS: BMI 23.3
--- NOTE | 2018-09-07 12:13 | US_ITS ---
STUDY: THYROID ULTRASOUND REASON FOR EXAM: Female, 58 years old. Thyroid nodules. TECHNIQUE: Ultrasound evaluation of the thyroid was performed with real-time and static mancia-scale imaging. COMPARISON: None. FINDINGS: RIGHT LOBE: The right lobe of the thyroid gland measures 2.5 x 1.6 x 1.7 cm. There is a heterogeneous echotexture. There are no demonstrated solid, cystic or complex lesions. LEFT LOBE: The left lobe of the thyroid gland measures 2.5 x 1.2 x 1.0 cm. There is a heterogeneous echotexture. There are no demonstrated solid, cystic or complex lesions. ISTHMUS: The isthmus measures 0.2 cm . US/Thyroid IMPRESSION: Small heterogeneous thyroid without focal nodule. Electronically Signed: Jamila Chin MD at 18:46 EDT , Service support ,
== END ==
PROVIDERS: Family Provider Internal Medicine; PCP Internal Medicine; Referring Provider Internal Medicine; Visit Provider Internal Medicine
DX: E04.1 Nontoxic single thyroid nodule (principal)
CPT/HCPCS: 76536

== ENCOUNTER 2018-09-09 16:47 | Emergency (ER) | payer OTHER, SELFPAY ==
[2018-03-30 08:45] VITALS: BMI 23.3
[2018-09-09 16:49] VITALS: BP 119/73; PULSE 78; RESP 16; TEMP 36.3; O2SAT 97; BMI 22.4
--- NOTE | 2018-09-09 17:28 | ED.VIS.BACK ---
History of Present Illness Informant: Patient, Significant Other Onset: Yesterday Context: Sudden Onset Chronic pain exacerbated by: Patient bent over accidentally while walking her dog last night which exace Injury: Bending Timing: Continuous Quality: Sharp Location: Lumbar Current Severity: Severe Maximum Severity: Severe Worsened by: improves with: Movement, Bending Relieved by: Nothing Associated Symptoms: Radiation to Right Leg Narrative: 58-year-old female history of chronic back pain and pain management presents with low back pain. Started suddenly last night. She was walking her dog. Dog started to run jerked her forward she had to bend over because she was about to fall lose her balance and had a sudden onset of right sided low back pain is been constant since that time. She did not fall to the ground. It radiates down her right leg. This is consistent with previous episodes of back pain. She has been walking normally she has not had any difficulty urinating or loss of bowel or bladder function. She did not suffer any trauma. She has no numbness tingling or weakness. She denies any other review of systems at this time. Prior similar symptoms: Yes, With Prior Back Pain Recent Illness/Hospitalization: No <Rishabh Stapleton - Last Filed: 09/09/18 17:53> <Edmar Nolasco - Last Filed: 09/09/18 19:31> Chief Complaint: Back Past Medical History Prior records reviewed: Yes Past Medical History: - - Chronic back pain Surgical History: appendectomy, hysterectomy, - - Cervical spinal fusion Lives: With Family Smoking Status: Current every day smoker - Family History Maternal Family History: Reports: Cancer, High Cholesterol Paternal Family History: Reports: Hypertension <Rishabh Stapleton - Last Filed: 09/09/18 17:53> <Edmar Nolasco - Last Filed: 09/09/18 19:31> - Allergies and Home Meds Allergies/Adverse Reactions: Allergies gabapentin Adverse Reaction (Verified 09/09/18 16:48) Swelling pregabalin [From Lyrica] Adverse Reaction (Verified 09/09/18 16:48) Swelling Primary Care Physician: Martha Shah DO [Primary Care Provider] - Review of Systems All systems negative except as indicated Musculoskeletal: Reports: Back pain <Rishabh Stapleton - Last Filed: 09/09/18 17:53> Physical Exam Vital Signs/Narrative: Vital Signs Temp Pulse Resp BP Pulse Ox 09/09/18 16:49 97.3 F L 78 16 119/73 97 Inital Vital Signs reviewed: Yes General: Well nourished, Well developed Head: Normocephalic, Atraumatic Eyes: Perrl, EOMI ENT: Moist mucous membranes Neck: Supple, Nontender Cardiovascular: Regular rate, Regular rhythm Respiratory: No distress, CTA bilaterally, Chest nontender Abdomen: Soft, Nontender, Nondistended, Normal bowel sounds, No masses Back: Normal Inspection, Paraspinal Tenderness, Positive SLR - Right Extremeties: Nontender, No edema Skin: Normal color, No rash Neuro: Alert, Oriented, Normal Strength, Normal Sensation, Normal DTR, Normal Gait, Normal Reflexes <Rishabh Stapleton - Last Filed: 09/09/18 17:53> Vital Signs/Narrative: Vital Signs Temp Pulse Resp BP Pulse Ox 09/09/18 16:49 97.3 F L 78 16 119/73 97 <Edmar Nolasco - Last Filed: 09/09/18 19:31> Diagnostic/Tx/Re-eval - Medical Decision Making Patient declined analgesia initially stating that she would like an MRI and I explained to her that there were no indications for an MRI at this time as she did not suffer any trauma she has no signs or symptoms of cauda equina syndrome or acute cord compression. We did obtain an x-ray that showed no acute bony abnormality. Patient has normal lower extremity strength testing pulses sensation and reflexes and is able to ambulate. She has exacerbated her chronic back pain but at this time do not feel further work-up in the emergency department is indicated or admission. She is in pain management and takes extended release hydrocodone and Valium for her back pain which she will continue to take at home and she was encouraged to follow-up with her doctor this week or return here to the emergency department for worsening symptoms which we discussed. <Rishabh Stapelton - Last Filed: 09/09/18 17:53> - Medical Decision Making 58-year-old female prior lumbar spine pain surgery. Patient today had a near fall but did not actually go down, causing discomfort in the right back 5and hip. She denies any other injuries. Denies any numbness or weakness of her lower extremities. She is on chronic pain management and has pain meds at home. Well-appearing middle-aged female. No acute distress. Vital signs are stable afebrile. HEENT exam unremarkable. Lungs are clear. Heart regular rhythm no murmur. Abdomen soft. Nontender normal bowel sounds no peritoneal signs. Extremities moving all 4. Her right hip is not dislocated. There is no gross deformity. She has some mild discomfort with range of motion but there is no shortening or rotation. Feet are neurovascular intact. Back well-healed lumbar spine incision. Mild tenderness along the lumbar and paralumbar soft tissues. No redness or warmth. No bruising. Neurologically she is awake and alert. Again no cauda equina or weakness in her lower extremities. Lumbar spine x-ray shows prior surgery and hardware but no acute abnormality. Read by myself the radiologist. Pt was offered but deferred right hip x-ray. Discharge patient decided she did not want her right hip x-rayed. Right hip and pelvis x-ray 3 view showed no acute abnormality. No fracture. Mild arthritis. Red blood by myself and radiologist. Impression: Near Fall Lumbar and right hip strain History of prior back surgery <Edmar Nolasco - Last Filed: 09/09/18 19:31> ED Disposition <Rishabh Stapleton - Last Filed: 09/09/18 17:53> <Edmar Nolasco - Last Filed: 09/09/18 19:31> - Plan for ED Patient: Disposition: Home or Assisted Living Diagnosis: Low back strain Instructions: Back Sprain/Strain Referrals: Martha Shah DO [Primary Care Provider] -
--- NOTE | 2018-09-09 17:30 | RAD_ITS ---
STUDY: X-RAY - LUMBAR SPINE REASON FOR EXAM: Female, 58 years old. Back pain. TECHNIQUE: 5 view(s) of the lumbar spine were obtained. COMPARISON: CT of the abdomen and pelvis dated 02/14/2018. FINDINGS: There is no evidence of fracture or dislocation in the lumbar spine. The vertebral body heights are well-maintained. There are stable postsurgical changes from fusion of L5/S1. There are stable degenerative changes noted. RAD/L/S Spine Min 4 Views IMPRESSION: No fracture or dislocation in the lumbar spine. Stable postsurgical and degenerative change. Electronically Signed: Eddi Ramirez, at 17:46 EDT Tel , Service support ,
[2018-09-09 18:00] VITALS: RESP 16
--- NOTE | 2018-09-09 18:59 | RAD_ITS ---
STUDY: X-RAY - PELVIS AND RIGHT HIP REASON FOR EXAM: Female, 58 years old. Pain TECHNIQUE: 2 views of the pelvis and right hip. COMPARISON: None. FINDINGS: There is no fracture or dislocation in the pelvis or right hip. There mild degenerative changes in the right hip and in the pubic symphysis. There is fusion hardware noted in the lower lumbar spine. RAD/HIP, UNI W/ Pelvis 2-3 Views IMPRESSION: No fracture or dislocation in the pelvis or right hip. Mild degenerative change. Electronically Signed: Eddi Ramirez, at 19:23 EDT Tel , Service support ,
[2018-09-09 19:33] VITALS: PULSE 51; RESP 16; O2SAT 99
== END 2018-09-09 19:34 | disposition home or self-care (01) ==
PROVIDERS: Emergency Provider Physician Assistant Medical; Family Provider Internal Medicine; PCP Internal Medicine
DX: S39.012A Strain of muscle, fascia and tendon of lower back, initial encounter (principal); S76.011A Strain of muscle, fascia and tendon of right hip, initial encounter; X50.1XXA Overexertion from prolonged static or awkward postures, initial encounter; Y93.K1 Activity, walking an animal; Y92.9 Unspecified place or not applicable; M54.9 Dorsalgia, unspecified; G89.29 Other chronic pain; M19.90 Unspecified osteoarthritis, unspecified site; Z98.890 Other specified postprocedural states; Z79.899 Other long term (current) drug therapy; F17.200 Nicotine dependence, unspecified, uncomplicated
CPT/HCPCS: 72110; 73502; 99282

== ENCOUNTER → 2018-10-19 10:12 | Outpatient (CLI) | payer OTHER, SELFPAY ==
[2018-10-19 12:44] LABS: Absolute Lymphocyte Count 2.54 X10^3/uL (0.83-4.51); Absolute Neutrophil Count 4.6 X10^3/uL (2.0-7.7); Basophil# 0.03 X10^3/uL; Basophil% 0.4 % (0-1); Eosinophil# 0.06 X10^3/uL; Eosinophils% 0.7 % (0-5); Hemoglobin 12.9 g/dL (12.0-15.0); Lymphocyte # 2.54 X10^3/ul (4.0); Lymphocyte % 31.6 % (19-41); Mean Corp Hgb Conc 33.1 g/dL (32-36); Mean Corpuscular Hgb 33.1 pg (27.0-32.0); Mean Platelet Vol. 10.6 fl (6.2-12.0); Monocyte# 0.75 X10^3/uL; Monocyte% 9.3 % (0-10); NRBC Flagged by Analyzer 0 % (0-5); Neutrophil # 4.62 X10^3/uL (2.7-7.7); Neutrophil % 57.4 % (47-70); Platelet Count 238 K/mm3 (150-450); RBC Distribution Width CV 13.3 % (11.6-14.6); RBC Distribution Width SD 49.6 fl (35.1-43.9); White Blood Count 8.1 K/mm3 (4.4-11.0)
[2018-10-19 12:56] LABS: Hemoglobin A1c 5.8 % (4.2-6.3)
[2018-10-19 13:18] LABS: ALB/GLOB Ratio 1.2 RATIO (0.9-2.4); AST(SGOT) 21 U/L (15-37); Alanine Aminotransfer ALT/SGPT 35 U/L (13-56); Albumin, Serum 3.7 g/dL (3.2-5.0); Alkaline Phosphatase 39 U/L (45-117); Anion Gap 8 (5-15); BUN 8 mg/dL (7-18); BUN/Creat Ratio 9.9 RATIO (10-20); Calcium,Total 8.7 mg/dL (8.5-10.1); Chloride 109 mmol/L (98-107); Cholesterol 168 mg/dL (200); Creatinine, Serum 0.81 mg/dL (0.55-1.02); EST Glomerular Filtration Rate 78 mL/min (>60); Est Glom Filt Rate - Afr Amer 94 mL/min (>60); Glucose 86 mg/dL (74-106); High Density Lipoprotein 78 mg/dL; Potassium 3.9 mmol/L (3.5-5.1); Protein, Total 6.7 g/dL (6.4-8.2); Sodium Level 143 mmol/L (136-145); Thyroid Stim Hormone (TSH) 7.24 uIU/mL (0.358-3.74); Triglycerides 65 mg/dL; Very Low Density Lipoprotein 13 mg/dL (5-40)
== END ==
PROVIDERS: Family Provider Internal Medicine; PCP Internal Medicine; Referring Provider Internal Medicine; Visit Provider Internal Medicine
DX: E78.49 Other hyperlipidemia (principal); E03.9 Hypothyroidism, unspecified; R73.01 Impaired fasting glucose
CPT/HCPCS: 36415; 80053; 80061; 83036; 84443; 85025

== ENCOUNTER → 2018-12-14 09:37 | Outpatient (CLI) | payer OTHER, SELFPAY ==
--- NOTE | 2018-12-14 09:41 | MRI_ITS ---
STUDY: MRI BRAIN WITH AND WITHOUT CONTRAST REASON FOR EXAM: Female, 58 years old. The patient presents with a history of confusion, falls, incontinence, speech changes with bilateral leg weakness. The patient has a hit head several x past 4 years. TECHNIQUE: Standardized multiplanar fat and water weighted pulse sequences were obtained. IV Dotarem 13 was administered for the contrast portion of the examination. COMPARISON: MRI BRAIN-November 06, 2017 FINDINGS: Normal size of the ventricles and extra-axial spaces for the patient's age. There are numerous white matter hyperintensities widely distributed throughout the bilateral supratentorial brain in subcortical mancia-white matter pattern distribution with areas of white matter hyperintensity of the centrum semiovale. There is a prominent large linear foci of white matter hyperintensity in the left para atrial trigonal area. There is no demonstrated periventricular septocallosal areas of hyperintense signal. The number, size, and pattern of distribution remain unchanged as compared the prior examination of November 06, 2017. There is no demonstrated enhancement of these white matter lesions. These white matter hyperintensities are nonspecific. The differential considerations include a remote demyelinating process, a vasculitis, versus chronic white matter ischemic changes. There is no evidence for recent intracranial ischemia or other cause of cytotoxic edema on diffusion weighted imaging (DWI). Normal T2* images of the brain without demonstrated susceptibility artifact. There is no demonstrated hemosiderin stain. Normal bilateral basal ganglia. Normal thalami. There is no extra-axial fluid accumulation. Normal flow voids within the major intracranial circulation suggesting patency by spin echo criteria. Normal venous enhancement. There is no enhancing intra-axial or extra-axial abnormality. Normal sella turcica, pituitary gland, infundibular stalk, optic chiasm and hypothalamus. Normal tectal plate and pineal gland. Normal midbrain, cherelle and medulla. Normal cerebellum. Normal basal cisterns. Normal bilateral temporal bones. Normal bilateral internal auditory canals. No demonstrated orbital abnormality, within the constraints of a routine brain study. Normal visualized paranasal sinuses. Normal calvarium and skull base. Normal visualized soft tissue structures. Normal visualized upper cervical spine. MRI/Brain W/WO Contrast IMPRESSION: 1. Numerous stable white matter hyperintensities, unchanged as compared the prior examination of November 06, 2017. The pattern of distribution and morphology are not typical of multiple sclerosis. The differential diagnosis however includes an active a remote demyelinating process, such as ADEM, vasculitis or chronic ischemic changes. 2. No acute or evolving process. Electronically Signed: Brian Cueto DO at 12:38 EDT Tel , Service support ,
== END ==
PROVIDERS: Family Provider Internal Medicine; PCP Internal Medicine; Referring Provider Psychiatry & Neurology Neurology; Visit Provider Psychiatry & Neurology Neurology
DX: R55 Syncope and collapse (principal)
CPT/HCPCS: 70553

== ENCOUNTER → 2019-04-05 | Outpatient (CLI) | payer OTHER, SELFPAY ==
[2019-04-05 15:58] LABS: Absolute Lymphocyte Count 1.84 X10^3/uL (0.83-4.51); Absolute Neutrophil Count 5.3 X10^3/uL (2.0-7.7); Basophil# 0.04 X10^3/uL; Basophil% 0.5 % (0-1); Eosinophil# 0.03 X10^3/uL; Eosinophils% 0.4 % (0-5); Hematocrit 39.9 % (37-47); Hemoglobin 12.9 g/dL (12.0-15.0); Lymphocyte # 1.84 X10^3/ul (4.0); Lymphocyte % 23.7 % (19-41); Mean Corp Hgb Conc 32.3 g/dL (32-36); Mean Corpuscular Hgb 32.4 pg (27.0-32.0); Mean Corpuscular Volume 100.3 fL (81-99); Mean Platelet Vol. 10.6 fl (6.2-12.0); Monocyte% 6.4 % (0-10); NRBC Flagged by Analyzer 0 % (0-5); Neutrophil # 5.34 X10^3/uL (2.7-7.7); Neutrophil % 68.7 % (47-70); Platelet Count 251 K/mm3 (150-450); RBC Distribution Width CV 12.9 % (11.6-14.6); RBC Distribution Width SD 47.5 fl (35.1-43.9); Red Blood Count 3.98 M/mm3 (4.2-5.4); White Blood Count 7.8 K/mm3 (4.4-11.0)
[2019-04-05 16:09] LABS: Erythrocyte Sedimentation Rate 2 mm/hr (0-30)
[2019-04-05 16:53] LABS: ALB/GLOB Ratio 1.5 RATIO (0.9-2.4); AST(SGOT) 13 U/L (15-37); Alanine Aminotransfer ALT/SGPT 23 U/L (13-56); Albumin, Serum 4.3 g/dL (3.2-5.0); Alkaline Phosphatase 47 U/L (45-117); Amylase 64 U/L (25-115); Anion Gap 4 (5-15); BUN 8 mg/dL (7-18); BUN/Creat Ratio 8.5 RATIO (10-20); CRP < 2.90 mg/L (0.0-3.0); Calcium,Total 9.6 mg/dL (8.5-10.1); Chloride 105 mmol/L (98-107); Creatinine, Serum 0.94 mg/dL (0.55-1.02); EST Glomerular Filtration Rate 65 mL/min (>60); Est Glom Filt Rate - Afr Amer 79 mL/min (>60); Globulin 2.9 g/dL (2.2-4.2); Glucose 93 mg/dL (74-106); Lipase 120 U/L (73-393); Potassium 4.1 mmol/L (3.5-5.1); Protein, Total 7.2 g/dL (6.4-8.2); Sodium Level 138 mmol/L (136-145)
== END | disposition home or self-care (01) ==
PROVIDERS: PCP Internal Medicine; Referring Provider Internal Medicine; Visit Provider Internal Medicine
DX: R10.9 Unspecified abdominal pain (principal)
CPT/HCPCS: 80053; 82150; 83690; 85025; 85652; 86140

== ENCOUNTER → 2019-04-22 10:16 | Outpatient (CLI) | payer OTHER, SELFPAY ==
--- NOTE | 2019-04-22 10:29 | RAD_ITS ---
STUDY: X-RAY - CERVICAL SPINE REASON FOR EXAM: Female, 58 years old. PAIN AND TENDERNESS IN CERVICAL SPINE POSTERIORLY, FOR A COUPLE OF WEEKS NOW WITH RADIATING NUMBNESS AND TINGLING IN BOTH ARMS AND HANDS. HX OF A FUSION IN 2010. PATIENT STATES FELT THIS AFTER SHE HAD HER HEAD BACK IN A SHAMPOO BOWL. TECHNIQUE: 5 view(s) of the cervical spine were obtained. COMPARISON: None FINDINGS: Normal anterior atlantoaxial articulation. Normal odontoid process. Normal cervical lordosis. Normal vertebral bodies and endplates. Normal disc space heights. Normal visualized intervertebral neuroforamina. The soft tissue structures are unremarkable. The patient has had an anterior cervical fusion extending from the level of C4-C6 with an ACDF plate in place and fusion of the C4-5 and C5-6 intervertebral disc spaces. RAD/Cerv Spine 4 or 5 Views IMPRESSION: Status post anterior cervical fusion of the mid cervical spine from C4 - C6, with the cervical spine maintained in good position and alignment.. Electronically Signed: Kris Alvarez, at 16:42 EST Tel , Service support ,
== END ==
PROVIDERS: PCP Internal Medicine; Referring Provider Nurse Practitioner Family; Visit Provider Nurse Practitioner Family
DX: M54.2 Cervicalgia (principal); Z98.1 Arthrodesis status
CPT/HCPCS: 72050

== ENCOUNTER → 2019-05-10 11:25 | Outpatient (CLI) | payer OTHER, SELFPAY ==
--- NOTE | 2019-05-10 11:33 | MRI_ITS ---
STUDY: MRI BRAIN WITH AND WITHOUT CONTRAST REASON FOR EXAM: Female, 58 years old. Vertigo, diplopia with headaches of the back of the head and right side of the face x1 month. TECHNIQUE: Standardized multiplanar fat and water weighted pulse sequences were obtained. IV doteram 12 ml was administered for the contrast portion of the examination. COMPARISON: MRI BRAIN WITH AND WITHOUT CONTRAST-December 14, 2018 FINDINGS: Normal size of the ventricles and extra-axial spaces for the patient''s age. There is re-demonstration of numerous white matter hyperintensities widely distributed throughout the bilateral supratentorial brain, and a peripheral location involving the bilateral frontal parietal and occipital lobes with a large linear foci of hyperintensity in the left para-atrial trigonal region. The size, morphology, and pattern of distribution remains stable and unchanged as compared the prior examination of December 14, 2018. In addition, there is a solitary area of hyperintense signal in the right paramedian location within the cherelle, which was present on the prior examination. There is no enhancement of these lesions. There is no demonstrated mass effect. T2*GRE susceptibility images are normal. There are normal diffusion weighted images, without restricted diffusion. The findings are consistent with a stable inactive process possibly indicating a remote vasculitis or inactive demyelinating process. Normal bilateral basal ganglia. Normal thalami. There is no extra-axial fluid accumulation. Normal flow voids within the major intracranial circulation suggesting patency by spin echo criteria. Normal venous enhancement. There is no enhancing intra-axial or extra-axial abnormality. Normal sella turcica, pituitary gland, infundibular stalk, optic chiasm and hypothalamus. Normal tectal plate and pineal gland. Normal midbrain, cherelle and medulla. Normal cerebellum. Normal basal cisterns. Normal bilateral temporal bones. Normal bilateral internal auditory canals. No demonstrated orbital abnormality, within the constraints of a routine brain study. Normal visualized paranasal sinuses. Normal calvarium and skull base. Normal visualized soft tissue structures. Normal visualized upper cervical spine. MRI/Brain W/WO Contrast IMPRESSION: Numerous stable white matter hyperintensities widely distributed throughout the supratentorial brain with an additional solitary foci in the right paramedian cherelle, unchanged in size, morphology and pattern of distribution, without mass effect or contrast enhancement. The findings are consistent with a stable, inactive process, possibly indicating a remote vasculitis or an inactive demyelinating process. An infectious etiology such as Lyme''s disease is also included in the differential diagnosis. Electronically Signed: Brian Cueto DO at 14:15 EDT Tel , Service support ,
== END ==
PROVIDERS: PCP Internal Medicine; Referring Provider Internal Medicine; Visit Provider Internal Medicine
DX: R55 Syncope and collapse (principal)
CPT/HCPCS: 70553; A9575

== ENCOUNTER → 2019-06-27 13:44 | Outpatient (CLI) | payer OTHER, SELFPAY ==
[2019-06-27 17:50] LABS: T3 Total - Triiodothyronine 1.03 ng/mL (0.6-1.81); Vitamin B12 492 pg/mL (211-911)
[2019-06-27 18:10] LABS: Erythrocyte Sedimentation Rate 3 mm/hr (0-30)
[2019-06-27 19:47] LABS: CRP < 2.90 mg/L (0.0-3.0); Rheumatoid Factor < 10.0 IU/mL (<15); T4 Total, Thyroxin 8.2 ug/dL (4.8-13.9); Thyroid Stim Hormone (TSH) 0.09 uIU/mL (0.358-3.74)
[2019-06-28 10:49] LABS: T3 Uptake 39 % (30-39); T7 / Free Thyroxin Index 3.2 (1.4-4.5)
[2019-07-01 14:49] LABS: ANTINUCLEAR ANTIBODIES DIRECT Positive (Negative)
[2019-07-01 16:07] LABS: Cytoplasmic Ab (C-ANCA) <1:20 titer (Neg:<1:20); PROEL- A/G Ratio 1.3 (0.7-1.7); PROEL- Albumin 3.9 g/dL (2.9-4.4); PROEL- Alpha-1 Globulin 0.2 g/dL (0.0-0.4); PROEL- Alpha-2 Globulin 0.8 g/dL (0.4-1.0); PROEL- Beta Globulin 0.9 g/dL (0.7-1.3); PROEL- Gamma Globulin 0.9 g/dL (0.4-1.8); PROEL- Globulin, Total 2.9 g/dL (2.2-3.9); PROEL- TOTAL PROTEIN 6.8 g/dL (6.0-8.5)
[2019-07-01 17:03] LABS: Angiotensin Convert Enzyme < 15 U/L (14-82); Perinuclear Ab (P-ANCA) <1:20 titer (Neg:<1:20)
== END ==
PROVIDERS: PCP Internal Medicine; Referring Provider Psychiatry & Neurology Neurology; Visit Provider Psychiatry & Neurology Neurology
DX: G37.9 Demyelinating disease of central nervous system, unspecified (principal); G43.119 Migraine with aura, intractable, without status migrainosus; M31.6 Other giant cell arteritis; R55 Syncope and collapse
CPT/HCPCS: 36415; 82164; 82607; 84165; 84436; 84443; 84479; 84480; 85652; 86038; 86140; 86256; 86431

== ENCOUNTER → 2019-07-16 11:19 | Outpatient (CLI) | payer OTHER, SELFPAY ==
--- NOTE | 2019-07-16 11:21 | RAD_ITS ---
STUDY: X-RAY - THORACIC SPINE REASON FOR EXAM: Female, 58 years old. back pain after lifting a heavy desk 2 weeks ago TECHNIQUE: 3 view(s) of the thoracic spine were obtained. COMPARISON: Thoracic x-ray 09/25/2013. FINDINGS: Normal kyphosis of the thoracic spine. There is no substantial scoliosis. There is mild collapse of the T7 superior endplate with anterior wedging. There is moderate multilevel disc space narrowing of the thoracic spine. There is anterior fusion of the lower cervical spine. The soft tissue structures are unremarkable. RAD/Thoracic Spine 3 Views IMPRESSION: Mild collapse of the T7 superior endplate with anterior wedging may represent acute compression fracture in the setting of trauma and pain. Mild degenerative changes. Electronically Signed: Delia Otto, at 17:20 EDT Tel , Service support ,
== END ==
PROVIDERS: PCP Internal Medicine; Referring Provider Nurse Practitioner Family; Visit Provider Nurse Practitioner Family
DX: M54.6 Pain in thoracic spine (principal)
CPT/HCPCS: 72072

== ENCOUNTER → 2019-08-02 | Outpatient (CLI) | payer OTHER, SELFPAY ==
--- NOTE | 2019-08-02 | BON_PTH ---
PATIENT: TITA LAW [facility]: [facility] U#:[id number] AGE/SX: 59/F ROOM: RE08/02/[address]: Dr. Johann Conley MD : 1960 BED: DIS: 08/02/2019 SPEC #: [id number] RECD: 08/02/19 15:13 STATUS: [place] REQ #: [id number] ANIYAH: 08/02/19 00:[address]: Johann Conley DEPT: SURGICAL PATHOLOGY RECD BY: Jonana Moya ENTERED: 08/05/19 08:37 SP TYPE: Bone OTHR DR: Dr. Martha Shah, [facility] Tissues: Vertebra, NOS Procedures: Decalcification bone/plaque Surgery Specimen Level IV HEADER OPERATION: Thoracic kyphoplasty at T7 PRE-OP DIAGNOSIS: Compression fracture T7 TISSUE SUBMITTED: Body of T7 MICROSCOPIC DIAGNOSIS Body of T7, kyphoplasty: Pieces of bone with reactive changes. Negative for malignancy. See comment. JOSEFINA:tiffanie 08/07/19 COMMENT The specimen shows fragments of bone mixed with hematopoietic marrow showing trilineage hematopoiesis. A minute lymphoid aggregate is also noted, favor benign. Immunohistochemistry ([id number]) supports the above diagnosis. MICROSCOPIC DESCRIPTION Slides are reviewed. GROSS DESCRIPTION Received in fixative is one container labeled with the patient's name and designated body of T7. The specimen consists of multiple fragments of blood clot mixed with fragments of bone that in aggregate measure 1 x 0.2 x 0.1 cm. The entire specimen is submitted in one cassette after decalcification. / JOSEFINA:tiffanie 08/06/19 TC:5 CPT: 81692, 91984
--- NOTE | 2019-08-02 | IMM_PTH ---
PATIENT: TITA LAW LOC: [facility] U#:[id number] AGE/SX: 59/F ROOM: RE08/02/[address]: Dr. Johann Conley MD : 1960 BED: DIS: 08/02/2019 SPEC #: [id number] RECD: 08/07/19 11:24 STATUS: [place] REQ #: [id number] ANIYAH: 08/02/19 00:[address]: Johann Conley DEPT: IMMUNOHISTOCHEMISTRY RECD BY: Betty Gtz ENTERED: 08/07/19 11:25 SP TYPE: IMMUNO OTHR DR: Dr. Martha Shah, DO Tissues: Vertebra, NOS Procedures: CD20 (add) CD3 (add) CD45 (add) CD5 (add) CD79A (add) CK8 (add) Pankeratin (initial) PHYSICIAN & INSTITUTION [facility] [id number] SPECIMEN INFORMATION: Tissue Source: Body of T7 Clinical Info: Compression fracture T7 Specimen Number: [id number] CPT code: 44494, 51512 x6 METHODOLOGY: Deparaffinized sections of prefer/formalin-fixed tissue or PAP/DQ stained slides are incubated with monoclonal/polyclonal antibodies/oligonucleotide probes. Localization is made via biotin free immunoperoxidase method. Appropriate controls are performed and reacted as expected. Results on target cell population are indicated in the following table: RESULTS: ANTIBODY / CLONE RESULT AE1-3 (AE1/AE3/PCK26) negative CK8 ([id number]) negative CD3 (PS1) positive CD5 (SP10) positive CD45 (RP2/18) positive CD79a (11E3) positive CD20 (L26) positive These tests were developed and their performance characteristics determined by [facility]. They may not have been cleared or approved by the U.S. Food and Drug Administration. The FDA has determined that such clearance or approval is not necessary. The above immunohistochemical/dualISH markers are ordered and reviewed by the Pathologist. INTERPRETATION: Body of T7, kyphoplasty: Negative for malignancy. Lymphoid aggregate, polytypic in nature, favor benign. SJ:tiffanie 08/08/19
== END | disposition home or self-care (01) ==
LOC: LABSPEC 15:49
PROVIDERS: PCP Internal Medicine; Referring Provider Anesthesiology Pain Medicine; Visit Provider Anesthesiology Pain Medicine
DX: S22.069A Unspecified fracture of T7-T8 vertebra, initial encounter for closed fracture (principal)
CPT/HCPCS: 88305; 88311; 88341; 88342

== ENCOUNTER → 2019-08-07 12:38 | Outpatient (CLI) | payer OTHER, SELFPAY ==
[2019-08-07 15:37] LABS: Absolute Lymphocyte Count 2.48 X10^3/uL (0.83-4.51); Absolute Neutrophil Count 6.1 X10^3/uL (2.0-7.7); Basophil# 0.04 X10^3/uL; Basophil% 0.4 % (0-1); Eosinophil# 0.08 X10^3/uL; Eosinophils% 0.9 % (0-5); Hematocrit 37.2 % (37-47); Hemoglobin 12.1 g/dL (12.0-15.0); Lymphocyte # 2.48 X10^3/ul (4.0); Lymphocyte % 26.4 % (19-41); Mean Corp Hgb Conc 32.5 g/dL (32-36); Mean Corpuscular Hgb 32.3 pg (27.0-32.0); Mean Corpuscular Volume 99.2 fL (81-99); Mean Platelet Vol. 10.1 fl (6.2-12.0); Monocyte% 7.4 % (0-10); NRBC Flagged by Analyzer 0 % (0-5); Neutrophil # 6.08 X10^3/uL (2.7-7.7); Neutrophil % 64.6 % (47-70); Platelet Count 277 K/mm3 (150-450); RBC Distribution Width CV 13.6 % (11.6-14.6); RBC Distribution Width SD 49.3 fl (35.1-43.9); Red Blood Count 3.75 M/mm3 (4.2-5.4); White Blood Count 9.4 K/mm3 (4.4-11.0)
[2019-08-07 15:56] LABS: ALB/GLOB Ratio 1.3 RATIO (0.9-2.4); AST(SGOT) 16 U/L (15-37); Alanine Aminotransfer ALT/SGPT 24 U/L (13-56); Albumin, Serum 3.9 g/dL (3.2-5.0); Alkaline Phosphatase 69 U/L (45-117); Anion Gap 7 (5-15); BUN 5 mg/dL (7-18); BUN/Creat Ratio 5.7 RATIO (10-20); Calcium,Total 8.9 mg/dL (8.5-10.1); Chloride 101 mmol/L (98-107); Cholesterol 194 mg/dL (200); Creatinine, Serum 0.88 mg/dL (0.55-1.02); EST Glomerular Filtration Rate 71 mL/min (>60); Est Glom Filt Rate - Afr Amer 85 mL/min (>60); Globulin 3.1 g/dL (2.2-4.2); Glucose 91 mg/dL (74-106); High Density Lipoprotein 72 mg/dL; Potassium 3.4 mmol/L (3.5-5.1); Sodium Level 134 mmol/L (136-145); Triglycerides 102 mg/dL; Very Low Density Lipoprotein 20 mg/dL (5-40)
[2019-08-07 16:17] LABS: Microalbumin,Random Urine 5.2 mg/L (NO RANGE EST.); Microalbumin:Creatinine Ratio 3.5 mg/g CRE (<30 mg/g CRE)
[2019-08-07 17:46] LABS: Hemoglobin A1c 5.6 % (3.8-5.6)
[2019-08-08 10:22] LABS: Thyroid Stim Hormone (TSH) 0.24 uIU/mL (0.358-3.74)
== END ==
PROVIDERS: PCP Internal Medicine; Referring Provider Internal Medicine; Visit Provider Internal Medicine
DX: E78.49 Other hyperlipidemia (principal); R73.01 Impaired fasting glucose; E03.9 Hypothyroidism, unspecified
CPT/HCPCS: 36415; 80053; 80061; 82043; 82570; 83036; 84443; 85025

== ENCOUNTER → 2019-09-17 12:29 | Outpatient (CLI) | payer OTHER, SELFPAY ==
--- NOTE | 2019-09-17 12:32 | US_ITS ---
STUDY: THYROID ULTRASOUND REASON FOR EXAM: Female, 59 years old. F/u nodule seen on 2018 ultrasound -- hypothyroidism TECHNIQUE: Ultrasound evaluation of the thyroid was performed with real-time and static mancia-scale imaging. COMPARISON: 03/08/2017. FINDINGS: RIGHT LOBE: The right lobe of the thyroid gland measures 3.1 x 1.3 x 2.0 cm. There is a heterogeneous echotexture. There is a 0.5 x 0.4 x 0.4 cm hypoechoic lower pole nodule LEFT LOBE: The left lobe of the thyroid gland measures 2.4 x 1.1 x 0.8 cm. There is a heterogeneous echotexture. There is a 0.6 x 0.5 x 0.3 cm hypoechoic nodule ISTHMUS: The isthmus measures 3 mm. The regional lymph nodes are normal. US/Thyroid IMPRESSION: Normal size heterogeneous thyroid gland. Stable hypoechoic nodules in both thyroid lobes unchanged compared to 03/08/2017. Electronically Signed: Yovanny White MD at 15:05 EDT , Service support ,
--- NOTE | 2019-09-17 12:32 | BI_ITS ---
MAMMOGRAPHY - BILATERAL SCREENING 3-D TOMOSYNTHESIS REASON FOR EXAM: Female, 59 years old. Routine screening PERTINENT HISTORY: FAM HX OF MOTHER @ AGE 56, MAT GREAT AUNT @ AGE 63, Tamp;amp; MAT COUSIN @ AGE 54 - LT STEREO BX 2009 - RT MOLE. TECHNIQUE: 2-D mammograms and 3-D Tomosynthesis of the breast (s) were performed. CAD was performed. COMPARISON: 09/03/2018 FINDINGS: The breast composition is composed of scattered fibroglandular density. Scattered benign calcifications are seen. No dense spiculated masses or suspicious microcalcifications are identified. No architectural distortion is identified. There is no skin thickening or retraction. There has been no significant change since the prior study. BI/SCREEN MAMM (CAD) W/SHEREEN BILAT IMPRESSION: No mammographic signs of malignancy. Routine yearly mammograms recommended. ASSESSMENT CATEGORY: BIRADS Category 1: Negative. A letter regarding these results will be sent to the patient by the facility within 30 days. FOLLOW UP RECOMMENDATION: Yearly follow up mammogram recommended. (A) Approximately 10% of breast cancers are not detected by mammography. A normal mammogram should not delay biopsy of a clinically suspicious abnormality. Electronically Signed: Yovanny White MD at 15:17 EDT , Service support ,
--- NOTE | 2019-09-17 13:08 | BD_ITS ---
STUDY: DUAL ENERGY X-RAY ABSORPTIOMETRY / DXA REASON FOR EXAM: Female, 59 years old. 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 COMPARISON: Comparison is made with prior examination dated 08-31-17. FINDINGS: Lumbar Spine (L1-L4): g/cm2 (0.888) / T-score (-2.6) / Z-score (-1.6) Findings are suggestive of osteoporosis with a high fracture risk. Left Femur Total: g/cm2 (0.656) / T-score (-2.8) / Z-score (-2.0) Left Femoral Neck: g/cm2 (0.680) / T-score (-2.6) / Z-score (-1.5) Right Femur Total: g/cm2 (0.600) / T-score (-3.2) / Z-score (-2.5) Right Femoral Neck: g/cm2 (0.594) / T-score (-3.2) / Z-score (-2.1) The T-Scores on the most recent prior examination were: Lumbar Spine (L1-L4): There has been worsening of bone density since the previous examination. Left Femur Total: which represents an improvement of 0.9%. Right Femur Total: which represents a worsening of 14.7%. BD/Dexa Bone Density Study IMPRESSION: The patient is considered osteoporotic as outlined below according to World Tod Organization (WHO) criteria with a high fracture risk. There has been worsening of bone density since the previous examination. Reference Information: The T-score is the number of standard deviations above or below the standard which is normal for young adults at their peak bone mineral density. The World Health Organization (WHO) interprets the T-scores as follows: Above -1 Normal bone density Between -1 and -2.5 Osteopenia Equal to / or below -2.5 Osteoporosis As a practical clinical guideline, osteopenia may be graded as follows: Mild -1 through -1.5 Moderate -1.6 through -2.0 Severe -2.1 through -2.4 The Z-score is the number of standard deviations above or below age-matched controls. A Z-score of less than -1.5 would be considered abnormal. References: 1. NIH Osteoporosis and Related Bone Diseases http://www.osteo.org 2. International Society for Clinical Densitometry http://www.iscd.org 3. National Osteoporosis Foundation http://www.nof.org Electronically Signed: Barrera Nguyen, at 10:57 EDT , Service support ,
== END ==
PROVIDERS: PCP Internal Medicine; Referring Provider Internal Medicine; Visit Provider Internal Medicine
DX: Z78.0 Asymptomatic menopausal state (principal); Z12.31 Encounter for screening mammogram for malignant neoplasm of breast; Z80.3 Family history of malignant neoplasm of breast; E04.1 Nontoxic single thyroid nodule
CPT/HCPCS: 76536; 77063; 77067; 77080

== ENCOUNTER → 2019-09-18 14:27 | Outpatient (CLI) | payer OTHER, SELFPAY ==
--- NOTE | 2019-09-18 14:29 | RAD_ITS ---
STUDY: X-RAY - THORACIC SPINE REASON FOR EXAM: Female, 59 years old. Spine and bilat rib pain, more on the right side, some pain sternum, no injury, hx of compression fx TECHNIQUE: 3 view(s) of the thoracic spine were obtained. COMPARISON: 07/16/2019 FINDINGS: Normal kyphosis of the thoracic spine. There is no substantial scoliosis. There is multilevel endplate spondylosis of the thoracic vertebrae. There is multilevel disc space narrowing of the thoracic spine. Since the previous study, there has been kyphoplasty to stabilize the previously noted compression fracture at T7. No absent pedicle or paraspinal mass. RAD/Thoracic Spine 3 Views IMPRESSION: L2 level degenerative changes with kyphoplasty noted at T7. No acute findings Electronically Signed: Yovanny White MD at 8:20 EDT , Service support ,
--- NOTE | 2019-09-18 14:30 | RAD_ITS ---
STUDY: X-RAY - BILATERAL RIBS REASON FOR EXAM: Female, 59 years old. Spine and bilat rib pain, more on the right side, some pain sternum, no injury, hx of compression fx TECHNIQUE: 6 view(s) of the ribs. COMPARISON: April 15, 2017 FINDINGS: Normal visualized ribs without a demonstrated fracture. The visualized lungs are clear and expanded. Normal heart, mediastinum and pulmonary sandra. There is evidence of a prior vertebroplasty at T7. RAD/Ribs Bilat 3V No CXR IMPRESSION: Within normal limits x-ray examination of the bilateral ribs. Electronically Signed: Ofelia Avila MD at 22:59 EDT Tel , Service support ,
== END ==
PROVIDERS: PCP Internal Medicine; Referring Provider Nurse Practitioner Family; Visit Provider Nurse Practitioner Family
DX: M54.6 Pain in thoracic spine (principal); R07.81 Pleurodynia
CPT/HCPCS: 71110; 72072

== ENCOUNTER → 2019-11-07 09:18 | Outpatient (CLI) | payer OTHER, SELFPAY ==
[2019-11-07 09:50] LABS: Absolute Lymphocyte Count 1.87 X10^3/uL (0.83-4.51); Absolute Neutrophil Count 3.4 X10^3/uL (2.0-7.7); Basophil# 0.03 X10^3/uL; Basophil% 0.5 % (0-1); Eosinophil# 0.04 X10^3/uL; Eosinophils% 0.7 % (0-5); Hematocrit 37.3 % (37-47); Hemoglobin 12.6 g/dL (12.0-15.0); Lymphocyte # 1.87 X10^3/ul (4.0); Lymphocyte % 31.6 % (19-41); Mean Corp Hgb Conc 33.8 g/dL (32-36); Mean Corpuscular Hgb 32.3 pg (27.0-32.0); Mean Corpuscular Volume 95.6 fL (81-99); Mean Platelet Vol. 9.3 fl (6.2-12.0); Monocyte# 0.59 X10^3/uL; NRBC Flagged by Analyzer 0 % (0-5); Neutrophil # 3.37 X10^3/uL (2.7-7.7); Platelet Count 287 K/mm3 (150-450); RBC Distribution Width CV 13.3 % (11.6-14.6); RBC Distribution Width SD 47.8 fl (35.1-43.9); White Blood Count 5.9 K/mm3 (4.4-11.0)
[2019-11-07 10:12] LABS: Hemoglobin A1c 5.6 % (3.8-5.6)
[2019-11-07 10:25] LABS: ALB/GLOB Ratio 1.2 RATIO (0.9-2.4); AST(SGOT) 15 U/L (15-37); Alanine Aminotransfer ALT/SGPT 22 U/L (13-56); Alkaline Phosphatase 68 U/L (45-117); Anion Gap 9 (5-15); BUN 5 mg/dL (7-18); Calcium,Total 8.8 mg/dL (8.5-10.1); Chloride 101 mmol/L (98-107); Cholesterol 174 mg/dL (200); Creatinine, Serum 0.71 mg/dL (0.55-1.02); EST Glomerular Filtration Rate 90 mL/min (>60); Est Glom Filt Rate - Afr Amer 108 mL/min (>60); Free T3 2.6 pg/mL (2.18-3.98); Globulin 3.3 g/dL (2.2-4.2); Glucose 91 mg/dL (74-106); High Density Lipoprotein 83 mg/dL; Potassium 3.4 mmol/L (3.5-5.1); Protein, Total 7.3 g/dL (6.4-8.2); Sodium Level 134 mmol/L (136-145); T4 Free Direct 1.31 ng/dL (0.76-1.46); Thyroid Stim Hormone (TSH) 0.72 uIU/mL (0.358-3.74); Triglycerides 78 mg/dL; Very Low Density Lipoprotein 16 mg/dL (5-40)
== END ==
PROVIDERS: PCP Internal Medicine; Referring Provider Internal Medicine; Visit Provider Internal Medicine
DX: E87.6 Hypokalemia (principal); E03.9 Hypothyroidism, unspecified; E78.49 Other hyperlipidemia; R76.8 Other specified abnormal immunological findings in serum; R73.01 Impaired fasting glucose
CPT/HCPCS: 36415; 80053; 80061; 83036; 84439; 84443; 84481; 85025

== ENCOUNTER → 2019-11-14 15:04 | Outpatient (CLI) | payer OTHER, SELFPAY ==
[2019-11-14 18:10] LABS: Absolute Lymphocyte Count 2.03 X10^3/uL (0.83-4.51); Absolute Neutrophil Count 3.6 X10^3/uL (2.0-7.7); Basophil# 0.03 X10^3/uL; Basophil% 0.5 % (0-1); Eosinophil# 0.02 X10^3/uL; Eosinophils% 0.3 % (0-5); Hematocrit 36.8 % (37-47); Hemoglobin 12.2 g/dL (12.0-15.0); Lymphocyte # 2.03 X10^3/ul (4.0); Lymphocyte % 32.2 % (19-41); Mean Corp Hgb Conc 33.2 g/dL (32-36); Mean Corpuscular Hgb 32.5 pg (27.0-32.0); Mean Corpuscular Volume 98.1 fL (81-99); Mean Platelet Vol. 9.9 fl (6.2-12.0); Monocyte# 0.66 X10^3/uL; Monocyte% 10.5 % (0-10); NRBC Flagged by Analyzer 0 % (0-5); Neutrophil # 3.55 X10^3/uL (2.7-7.7); Neutrophil % 56.3 % (47-70); Platelet Count 294 K/mm3 (150-450); RBC Distribution Width CV 13.7 % (11.6-14.6); RBC Distribution Width SD 49.5 fl (35.1-43.9); Red Blood Count 3.75 M/mm3 (4.2-5.4); White Blood Count 6.3 K/mm3 (4.4-11.0)
[2019-11-14 18:29] LABS: ALB/GLOB Ratio 1.3 RATIO (0.9-2.4); AST(SGOT) 14 U/L (15-37); Alanine Aminotransfer ALT/SGPT 24 U/L (13-56); Albumin, Serum 4.1 g/dL (3.2-5.0); Alkaline Phosphatase 68 U/L (45-117); Anion Gap 6 (5-15); BUN 5 mg/dL (7-18); BUN/Creat Ratio 6.8 RATIO (10-20); Calcium,Total 9.1 mg/dL (8.5-10.1); Chloride 106 mmol/L (98-107); Creatinine, Serum 0.73 mg/dL (0.55-1.02); EST Glomerular Filtration Rate 87 mL/min (>60); Est Glom Filt Rate - Afr Amer 105 mL/min (>60); Globulin 3.1 g/dL (2.2-4.2); Glucose 87 mg/dL (74-106); Protein, Total 7.2 g/dL (6.4-8.2); Sodium Level 138 mmol/L (136-145)
[2019-11-14 18:30] LABS: PTHIN 37.1 pg/mL (18.4-80.1)
[2019-11-14 18:39] LABS: Microalbumin,Random Urine 5.2 mg/L (NO RANGE EST.); Microalbumin:Creatinine Ratio 22.8 mg/g CRE (<30 mg/g CRE)
== END ==
PROVIDERS: PCP Internal Medicine; Referring Provider Internal Medicine; Visit Provider Internal Medicine
DX: E87.6 Hypokalemia (principal); M81.0 Age-related osteoporosis without current pathological fracture; R73.01 Impaired fasting glucose
CPT/HCPCS: 36415; 80053; 82043; 82570; 83970; 85025

== ENCOUNTER → 2020-02-14 17:14 | Outpatient (CLI) | payer OTHER, SELFPAY ==
--- NOTE | 2020-02-14 17:30 | MRI_ITS ---
STUDY: MRI LUMBAR SPINE WITHOUT CONTRAST REASON FOR EXAM: Female, 59 years old. fecal/urine 4-6 weeks incontinence, severe back pain, TECHNIQUE: Standardized fat and water weighted pulse sequences were obtained in the sagittal and axial planes. COMPARISON: 02/06/2020 lumbar x-rays MRI of the lumbar spine 09/03/2015 FINDINGS: T12-L1: Normal endplates. Normal disc height, hydration and morphology. Normal bilateral facet joints. Normal central canal and bilateral lateral recesses. Normal bilateral intervertebral neural foramina. Normal lumbar lordosis. There is no substantial scoliosis. Normal conus medullaris that terminates at T12-L1 L1-2: Normal endplates. Normal disc height, hydration and morphology. Normal bilateral facet joints. Normal central canal and bilateral lateral recesses. Normal bilateral intervertebral neural foramina. L2-3: Normal endplates. Normal disc height, hydration and morphology. Normal bilateral facet joints. Normal central canal and bilateral lateral recesses. Normal bilateral intervertebral neural foramina. L3-4: Normal endplates. Normal disc height, hydration and minimal annular bulge. Normal bilateral facet joints. Normal central canal and bilateral lateral recesses. Normal bilateral intervertebral neural foramina. L4-5: Normal endplates. Normal disc height, desiccation and minor annular bulge.. Bilateral facet arthropathy. Normal central canal and bilateral lateral recesses. Mild bilateral neuroforaminal encroachment.. L5-S1: Grade 1 spondylolisthesis. Normal endplates. Normal disc height, desiccation and minor bulging disc osteophyte complex.. Normal bilateral facet joints. Normal central canal and bilateral lateral recesses. Normal bilateral intervertebral neural foramina. Normal visualized sacral ala. 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 There is also a narrowed thecal sac at the level of the sacral canal due to extensive epidural fat. Normal visualized paraspinous soft tissue structures. MRI/Spine Lumbar (Routine) IMPRESSION: No acute fracture or other significant bony pathology.. Mild spinal stenosis at L4-5 secondary to minor annular bulge and facet arthropathy. Postsurgical changes at L5-S1 status post bilateral laminectomy and posterior fusion. No evidence for recurrent or residual disc disease at this level. 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 Clinical correlation recommended Electronically Signed: Johann Cortez MD at 18:57 EST , Service support ,
== END ==
PROVIDERS: PCP Internal Medicine; Referring Provider Internal Medicine; Visit Provider Internal Medicine
DX: R15.9 Full incontinence of feces (principal); Z98.1 Arthrodesis status
CPT/HCPCS: 72148

== ENCOUNTER → 2020-05-14 14:45 | Outpatient (CLI) | payer OTHER, SELFPAY ==
--- NOTE | 2020-05-14 14:52 | RAD_ITS ---
STUDY: X-RAY - LEFT ANKLE REASON FOR EXAM: Female, 59 years old. pt fell last night, pain now in foot and ankle TECHNIQUE: 3 view(s) of the ankle. COMPARISON: None. FINDINGS: Normal visualized distal tibia and fibula. Normal medial and lateral malleoli. Normal tibiotalar articulation and ankle mortise. Normal visualized talus and calcaneus. The visualized subtalar, talonavicular, calcaneocuboid and tarsal articulations are normal. There is an accessory ossicle adjacent to the talus. The soft tissue structures are unremarkable. RAD/Ankle min 3 Views IMPRESSION: No fracture or malalignment. Electronically Signed: Claude Maya MD ([place]) at 15:20 EDT , Service support ,
--- NOTE | 2020-05-14 14:52 | RAD_ITS ---
STUDY: X-RAY - LEFT FOOT CLINICAL: Female, 59 years old. pt fell last night, pain in foot and ankle now TECHNIQUE: 3 view(s) of the foot. COMPARISON: None. FINDINGS: Normal talus, calcaneus, and tarsal bones. Normal visualized subtalar, talonavicular, calcaneocuboid, tarsal and tarsometatarsal articulations. Accessory ossicle adjacent to the talus. Normal metatarsi. Normal metatarsophalangeal joint of the great toe. Normal tibial and fibular sesamoid bones. Normal interphalangeal joint of the great toe. Normal phalanges of the great toe. Normal second through fifth metatarsophalangeal joints. Normal interphalangeal joints and phalanges of the lesser toes. The soft tissue structures are unremarkable. RAD/Foot min 3 Views IMPRESSION: No fracture or malalignment. Electronically Signed: Claude Maya MD ([place]) at 15:33 EDT , Service support ,
== END ==
PROVIDERS: PCP Internal Medicine; Referring Provider Internal Medicine; Visit Provider Internal Medicine
DX: G89.11 Acute pain due to trauma (principal)
CPT/HCPCS: 73610; 73630

== ENCOUNTER → 2020-05-15 12:13 | Outpatient (CLI) | payer OTHER, SELFPAY ==
[2020-05-15 10:22] LABS: Absolute Neutrophil Count 4.6 X10^3/uL (2.0-7.7); Basophil# 0.02 X10^3/uL; Basophil% 0.3 % (0-1); Eosinophil# 0.05 X10^3/uL; Eosinophils% 0.7 % (0-5); Hematocrit 37.2 % (37-47); Hemoglobin 12.2 g/dL (12.0-15.0); Mean Corp Hgb Conc 32.8 g/dL (32-36); Mean Corpuscular Hgb 33.1 pg (27.0-32.0); Mean Corpuscular Volume 100.8 fL (81-99); Mean Platelet Vol. 9.6 fl (6.2-12.0); Monocyte# 0.71 X10^3/uL; Monocyte% 9.4 % (0-10); NRBC Flagged by Analyzer 0 % (0-5); Neutrophil # 4.58 X10^3/uL (2.7-7.7); Neutrophil % 60.3 % (47-70); Platelet Count 272 K/mm3 (150-450); RBC Distribution Width CV 13.2 % (11.6-14.6); RBC Distribution Width SD 49.3 fl (35.1-43.9); Red Blood Count 3.69 M/mm3 (4.2-5.4); White Blood Count 7.6 K/mm3 (4.4-11.0)
[2020-05-15 10:43] LABS: ALB/GLOB Ratio 1.2 RATIO (0.9-2.4); AST(SGOT) 12 U/L (15-37); Alanine Aminotransfer ALT/SGPT 25 U/L (13-56); Alkaline Phosphatase 41 U/L (45-117); Anion Gap 5 (5-15); BUN 7 mg/dL (7-18); BUN/Creat Ratio 9.3 RATIO (10-20); Calcium,Total 8.9 mg/dL (8.5-10.1); Chloride 105 mmol/L (98-107); Creatinine, Serum 0.75 mg/dL (0.55-1.02); EST Glomerular Filtration Rate 84 mL/min (>60); Est Glom Filt Rate - Afr Amer 102 mL/min (>60); Globulin 3.2 g/dL (2.2-4.2); Glucose 101 mg/dL (74-106); Protein, Total 7.2 g/dL (6.4-8.2); Sodium Level 140 mmol/L (136-145); Thyroid Stim Hormone (TSH) 8.35 uIU/mL (0.358-3.74)
--- NOTE | 2020-05-15 12:16 | CT_ITS ---
STUDY: CT BRAIN WITHOUT CONTRAST REASON FOR EXAM: Female, 59 years old. SYNCOPE RADIATION DOSAGE (If Supplied By Facility): CTDIvol = ( 44.99 ) mGy, DLP = ( 796.11 ) mGycm TECHNIQUE: Transaxial CT imaging of the brain was performed without administration of intravenous contrast material. Individualized dose optimization techniques were used for this CT. COMPARISON: No relevant priors. FINDINGS: Normal soft tissue structures. Normal calvarium. Normal size ventricles and extra-axial spaces for the patient''s age. Normal white matter tracts of the cerebral hemispheres. Normal basal ganglia and thalami. Normal brainstem. Normal cerebellum. There is no intracranial hemorrhage. There are no findings of an acute ischemic infarction. Normal visualized paranasal sinuses. CT/Brain/Head without Contrast IMPRESSION: Normal unenhanced CT scan of the brain. Electronically Signed: Claude Maya MD ([place]) at 12:50 EDT , Service support ,
== END ==
PROVIDERS: PCP Internal Medicine; Referring Provider Internal Medicine; Visit Provider Internal Medicine
DX: R55 Syncope and collapse (principal)
CPT/HCPCS: 70450; 80053; 84443; 84484; 85025

== ENCOUNTER → 2020-05-19 09:12 | Outpatient (CLI) | payer OTHER, SELFPAY ==
--- NOTE | 2020-05-19 09:14 | ECHOD_ITS ---
Reason For Study: SYNCOPE Procedure This was a 2D Doppler, Color Flow transthoracic echocardiogram. Exam performed in department. Left Ventricle Normal LV size. The estimated ejection fraction is 60 %. No evidence for diastolic dysfunction. No regional wall motion abnormalities noted. Right Ventricle Normal RV size. Normal systolic function. Atria Normal left atrium. Normal right atrium. No doppler evidence for ASD. Mitral Valve There is no mitral valve stenosis. No mitral valve insufficiency. Tricuspid Valve There is no tricuspid stenosis. Trivial tricuspid valve insufficiency. Pulmonary artery systolic pressure is 20 mmHg. Aortic Valve Trisinus/trileaflet aortic valve. There is no aortic stenosis. No aortic valve insufficiency. Pulmonic Valve There is no pulmonic valvular stenosis. No pulmonic valve insufficiency. Great Vessels Normal aortic root. Pericardium/Pleural No pericardial effusion. MMode/2D Measurements & Calculations LVIDd: 4.1 cm IVSd: 0.79 cm Ao root diam: 2.8 cm LVIDs: 3.1 cm LVPWd: 0.68 cm RVDd: 3.2 cm FS: 24.8 % LAV(MOD-bp): 28.5 ml LA A4 area: 10.9 cm2 LA dimension(2D): 2.2 cm LAV(MOD-bp) Indexed: 17.0 ml/m2 LAV(MOD-sp2): 29.4 ml LAV(MOD-sp4): 24.7 ml RA A4 area: 10.2 cm2 Time Measurements MV dec time: 0.19 sec Doppler Measurements & Calculations MV E max flo: 83.3 cm/sec Lat Peak E' Flo: 10.7 cm/sec Med Peak E' Flo: 7.9 cm/sec MV A max flo: 59.7 cm/sec E/E' lat: 7.8 E/E' med: 10.5 MV E/A: 1.4 Ao V2 max: 96.9 cm/sec LV V1 max: 92.4 cm/sec PA V2 max: 70.8 cm/sec Ao max P.8 mmHg LV V1 max P.4 mmHg TR max flo: 200.4 cm/sec TR max P.1 mmHg Interpretation Summary The estimated ejection fraction is 60 %. No evidence for diastolic dysfunction. Ordering Physician: Martha Shah Referring Physician: Martha Shah Performed By: Jessica Bess RDCS, RVT
== END ==
PROVIDERS: PCP Internal Medicine; Visit Provider Internal Medicine
DX: R55 Syncope and collapse (principal)
CPT/HCPCS: 93306

== ENCOUNTER → 2020-05-27 10:18 | Outpatient (CLI) | payer OTHER, SELFPAY ==
--- NOTE | 2020-05-27 10:21 | CDU_ITS ---
Reason For Study: Syncope Rt. Velocities/BP Lt. Velocities/BP Prox CCA 118/32 cm/sec. Prox CCA 95/34 cm/sec. Mid CCA 130/37 cm/sec. Mid CCA 111/36 cm/sec. Dist CCA 107/34 cm/sec. Dist CCA 89/34 cm/sec. Prox ICA 50/18 cm/sec. Prox ICA 81/31 cm/sec. Mid ICA 74/27 cm/sec. Mid ICA 72/33 cm/sec. Dist ICA 87/39 cm/sec. Dist ICA 81/36 cm/sec. Rt. ICA/CCA = 0.7. Lt. ICA/CCA = 0.7. Prox ECA 75/13 cm/sec. Prox ECA 87/17 cm/sec. Rt. Vert. 56/16 cm/sec. Lt. Vert. 49/15 cm/sec. Right Extracranial There is intimal thickening but no significant atherosclerotic plaque noted in the right common carotid artery. There is intimal thickening but no significant atherosclerotic plaque noted in the right internal carotid artery. There is intimal thickening but no significant atherosclerotic plaque noted in the right external carotid artery. Antegrade flow is noted in the right vertebral artery. Left Extracranial There is intimal thickening but no significant atherosclerotic plaque noted in the left common carotid artery. There is intimal thickening but no significant atherosclerotic plaque noted in the left internal carotid artery. There is no significant atherosclerotic plaque noted in the left external carotid artery. Antegrade flow is noted in the left vertebral artery. Procedure Carotid Duplex 33688. Exam performed in department. VL/Carotid Duplex Ultrasound Interpretation Summary Mild (<50%) stenosis right extracranial internal carotid. Mild (<50%) stenosis left extracranial internal carotid. Flow within the vertebral arteries is antegrade bilaterally. Ordering Physician: Martha Shah Referring Physician: Martha Shah Performed By: Rosy Moore, RDCS, RVT
== END ==
PROVIDERS: PCP Internal Medicine; Referring Provider Internal Medicine; Visit Provider Internal Medicine
DX: R55 Syncope and collapse (principal)
CPT/HCPCS: 93880

== ENCOUNTER → 2020-06-05 11:03 | Outpatient (CLI) | payer OTHER, SELFPAY ==
--- NOTE | 2020-06-05 11:06 | MRI_ITS ---
STUDY: MRI BRAIN WITH AND WITHOUT CONTRAST REASON FOR EXAM: Female, 59 years old. SYNCOPE TECHNIQUE: Standardized multiplanar fat and water weighted pulse sequences were obtained. 12ml DOtarem via IV was administered for the contrast portion of the examination. COMPARISON: 05/10/2019 FINDINGS: Normal size of the ventricles and extra-axial spaces for the patient''s age. No change in a punctate hyperintensities in the periventricular and subcortical white matter may represent microangiopathic gliosis from chronic hypertension metabolic disease but other possibilities include hypercoagulable state including antiphospholipid antibody syndrome, vasculitis, migraine headaches, demyelinating disease (multiple sclerosis), or Lyme disease. There is no evidence for recent intracranial ischemia or other cause of cytotoxic edema on diffusion weighted imaging (DWI). Normal T2* images of the brain without demonstrated susceptibility artifact. There is no demonstrated hemosiderin stain. Normal bilateral basal ganglia. Normal thalami. There is no extra-axial fluid accumulation. Normal flow voids within the major intracranial circulation suggesting patency by spin echo criteria. Normal venous enhancement. There is no enhancing intra-axial or extra-axial abnormality. Normal sella turcica, pituitary gland, infundibular stalk, optic chiasm and hypothalamus. Normal tectal plate and pineal gland. Normal midbrain, cherelle and medulla. Normal cerebellum. Normal basal cisterns. Normal bilateral temporal bones. Normal bilateral internal auditory canals. No demonstrated orbital abnormality, within the constraints of a routine brain study. Normal visualized paranasal sinuses. Normal calvarium and skull base. Normal visualized soft tissue structures. Normal visualized upper cervical spine. MRI/Brain W/WO Contrast IMPRESSION: No change in the punctate hyperintensities in the periventricular and subcortical white matter may represent microangiopathic gliosis from chronic hypertension metabolic disease but other possibilities include hypercoagulable state including antiphospholipid antibody syndrome, vasculitis, migraine headaches, demyelinating disease (multiple sclerosis), or Lyme disease. No acute infarct or contrast enhancement. Electronically Signed: Mario Agudelo MD at 12:24 EDT Tel , Service support ,
== END ==
PROVIDERS: PCP Internal Medicine; Referring Provider Internal Medicine; Visit Provider Internal Medicine
DX: R55 Syncope and collapse (principal)
CPT/HCPCS: 70553; A9575

== ENCOUNTER → 2020-08-20 11:23 | Outpatient (CLI) | payer OTHER, SELFPAY ==
[2020-08-20 15:14] LABS: Absolute Lymphocyte Count 1.42 X10^3/uL (0.83-4.51); Absolute Neutrophil Count 5.5 X10^3/uL (2.0-7.7); Basophil# 0.03 X10^3/uL; Basophil% 0.4 % (0-1); Eosinophil# 0.01 X10^3/uL; Eosinophils% 0.1 % (0-5); Hematocrit 36.6 % (37-47); Hemoglobin 11.9 g/dL (12.0-15.0); Lymphocyte # 1.42 X10^3/ul (0.83-4.51); Lymphocyte % 19.2 % (19-41); Mean Corp Hgb Conc 32.5 g/dL (32-36); Mean Corpuscular Hgb 32.1 pg (27.0-32.0); Mean Corpuscular Volume 98.7 fL (81-99); Mean Platelet Vol. 9.9 fl (6.2-12.0); Monocyte# 0.43 X10^3/uL; Monocyte% 5.8 % (0-10); NRBC Flagged by Analyzer 0 % (0-5); Neutrophil # 5.47 X10^3/uL (2.7-7.7); Neutrophil % 74.2 % (47-70); Platelet Count 303 K/mm3 (150-450); RBC Distribution Width CV 12.7 % (11.6-14.6); RBC Distribution Width SD 45.5 fl (35.1-43.9); Red Blood Count 3.71 M/mm3 (4.2-5.4); White Blood Count 7.4 K/mm3 (4.4-11.0)
[2020-08-20 15:28] LABS: Vitamin D,25 Hydroxy 51.5 ng/mL
[2020-08-20 15:33] LABS: Hemoglobin A1c 5.5 % (3.8-5.6)
[2020-08-20 15:35] LABS: ALB/GLOB Ratio 1.4 RATIO (0.9-2.4); AST(SGOT) 14 U/L (15-37); Alanine Aminotransfer ALT/SGPT 22 U/L (13-56); Albumin, Serum 4.4 g/dL (3.2-5.0); Alkaline Phosphatase 45 U/L (45-117); Anion Gap 7 (5-15); BUN 8 mg/dL (7-18); BUN/Creat Ratio 10.5 RATIO (10-20); Calcium,Total 8.7 mg/dL (8.5-10.1); Chloride 100 mmol/L (98-107); Cholesterol 172 mg/dL (200); Creatinine, Serum 0.76 mg/dL (0.55-1.02); EST Glomerular Filtration Rate 83 mL/min (>60); Est Glom Filt Rate - Afr Amer 100 mL/min (>60); Globulin 3.2 g/dL (2.2-4.2); Glucose 81 mg/dL (74-106); High Density Lipoprotein 95 mg/dL; Potassium 3.8 mmol/L (3.5-5.1); Protein, Total 7.6 g/dL (6.4-8.2); Sodium Level 133 mmol/L (136-145); Thyroid Stim Hormone (TSH) 0.48 uIU/mL (0.358-3.74); Triglycerides 60 mg/dL; Very Low Density Lipoprotein 12 mg/dL (5-40)
== END ==
PROVIDERS: PCP Internal Medicine; Referring Provider Internal Medicine; Visit Provider Internal Medicine
DX: R73.01 Impaired fasting glucose (principal); E78.49 Other hyperlipidemia; M81.0 Age-related osteoporosis without current pathological fracture
CPT/HCPCS: 36415; 80053; 80061; 82306; 83036; 84443; 85025

== ENCOUNTER → 2020-08-26 17:53 | Outpatient (CLI) | payer OTHER, SELFPAY ==
--- NOTE | 2020-08-26 17:57 | CT_ITS ---
EXAM: CT HEAD WITHOUT INTRAVENOUS CONTRAST : 1960 CLINICAL INDICATION: HEAD INJURY TECHNIQUE: Multiple axial images were obtained of the head without intravenous contrast. This CT exam was performed using one or more of the following dose reduction techniques: automated exposure control, adjustment of the mA and/or kV according to patient size, and/or use of iterative reconstruction technique. This report was created using [employer] report generation technology. COMPARISON: 05/15/2020 FINDINGS: BRAIN AND EXTRA-AXIAL SPACES: Unremarkable. No intra- or extra-axial hemorrhage. No evidence of acute infarct. No intracranial mass or mass effect. There is preservation of the mancia/white matter interface. Posterior fossa structures are unremarkable. Ventricles are appropriate for age. No hydrocephalus. Basal cisterns are patent. BONES/JOINTS: Unremarkable. No discrete lytic or blastic abnormalities. SINUSES: Unremarkable as visualized. Clear. MASTOID AIR CELLS: Unremarkable. Clear. ORBITS: Visualized globes, extraocular muscles, optic nerves and retrobulbar fat appear unremarkable. CT/Brain/Head without Contrast IMPRESSION: Negative head/brain CT without intravenous contrast. There has been no change from the reference exam. Individualized dose optimization techniques were used for this CT. at 0354 Reported and signed by: Lamin Montana MD Electronically Signed: Lamin Montana MD at 3:53 EDT Tel , Service support ,
== END ==
PROVIDERS: PCP Internal Medicine; Visit Provider Internal Medicine
DX: S09.90XA Unspecified injury of head, initial encounter (principal); X58.XXXA Exposure to other specified factors, initial encounter; Y93.9 Activity, unspecified; Y92.9 Unspecified place or not applicable; Y99.9 Unspecified external cause status
CPT/HCPCS: 70450

== ENCOUNTER → 2020-09-02 16:27 | Outpatient (CLI) | payer OTHER, SELFPAY ==
--- NOTE | 2020-09-02 16:34 | MRI_ITS ---
STUDY: MRI CERVICAL SPINE WITH AND WITHOUT CONTRAST REASON FOR EXAM: Female, 60 years old. CERVICAL SPONDYLOSIS, DEGEN OF CERVICAL DISC TECHNIQUE: Standardized fat and water weighted pulse sequences were obtained in the sagittal and axial following administration of IV dotarem 12ml. COMPARISON: 01/25/2016 FINDINGS: Normal foramen magnum and brainstem-cervical cord junction. Normal craniovertebral junction. Normal anterior atlantoaxial articulation. Normal odontoid process. There is reversal of the normal cervical lordosis. Normal vertebral bodies. There is multilevel facet arthrosis. C2-3: Normal endplates. Normal disc height, signal and morphology. Normal central canal and intervertebral neural foramina. C3-4: Normal endplates. There is an annular bulge. Normal central canal and intervertebral neural foramina. C4-5: Status post anterior fusion. Normal central canal and intervertebral neural foramina. C5-6: Status post anterior fusion. Normal central canal and intervertebral neural foramina. C6-7: Normal endplates. There is a stable annular bulge. Normal central canal and intervertebral neural foramina. C7-T1: Normal endplates. Normal disc height, signal and morphology. Normal central canal and intervertebral neural foramina. Normal cervical cord. Normal visualized soft tissue structures. MRI/Spine Cervical W/WO Contrast IMPRESSION: Reversal of the normal lordosis. Status post anterior fusion from C4 to C6. Stable small disc bulges at C3-4 and C6-7 without significant change since 01/25/2016. Electronically Signed: Basil Culver MD at 5:38 EDT Tel , Service support ,
== END ==
PROVIDERS: PCP Internal Medicine; Referring Provider Nurse Practitioner Family; Visit Provider Nurse Practitioner Family
DX: M47.812 Spondylosis without myelopathy or radiculopathy, cervical region (principal); M50.30 Other cervical disc degeneration, unspecified cervical region; Z98.1 Arthrodesis status
CPT/HCPCS: 72156; A9575

== ENCOUNTER → 2020-11-10 14:30 | Outpatient (CLI) | payer OTHER, SELFPAY ==
--- NOTE | 2020-11-10 15:27 | BI_ITS ---
MAMMOGRAPHY - BILATERAL SCREENING REASON FOR EXAM: Female, 60 years old. Routine annual screening examination. PERTINENT HISTORY: Mother with breast cancer. Remote left stereotactic breast biopsy. TECHNIQUE: Digital bilateral breast shereen (3D mammographic acquisition) in the CC and MLO projections. 2-D mediolateral oblique (MLO) and craniocaudad (CC) views of both breasts were obtained. CAD: Full Field Digital Mammography with Computer Added Detection was performed. COMPARISON: Comparison is made with prior study dated 09/17/2019 and 09/03/2018. FINDINGS: Breast Composition: There are scattered areas of fibroglandular density. There are no dominant masses or suspicious calcifications. A tissue clip marker is once again seen in the deep upper axillary region of the left breast. No other significant abnormalities are identified. There has been no significant change since the prior study. BI/SCRN MAMM (CAD)W/SHEREEN BILAT IMPRESSION: Stable bilateral screening mammogram. Yearly follow-up mammogram recommended. (A) ASSESSMENT CATEGORY: BIRADS Category 2: Benign. A letter regarding these results will be sent to the patient by the facility within 30 days. Approximately 10% of breast cancers are not detected by mammography. A normal mammogram should not delay biopsy of a clinically suspicious abnormality. [id number] Electronically Signed: Barrera Nguyen MD at 8:47 EDT , Service support ,
== END ==
PROVIDERS: PCP Internal Medicine; Referring Provider Internal Medicine; Visit Provider Internal Medicine
DX: Z12.31 Encounter for screening mammogram for malignant neoplasm of breast (principal); Z80.3 Family history of malignant neoplasm of breast
CPT/HCPCS: 77063; 77067

== ENCOUNTER → 2020-11-16 16:24 | Outpatient (CLI) | payer OTHER, SELFPAY ==
--- NOTE | 2020-11-16 16:27 | RAD_ITS ---
STUDY: X-RAY CHEST REASON FOR EXAM: Female, 60 years old. Acute substernal chest pain and shortness of breath TECHNIQUE: PA and lateral views of the chest. COMPARISON: None. FINDINGS: The lungs are clear and expanded. There is no demonstrated pleural abnormality. Normal size heart. There are calcified mediastinal lymph nodes. Normal visualized pulmonary arteries. Normal visualized aortic arch and descending thoracic aorta. There are diffuse degenerative changes of the visualized thoracic spine. Vertebroplasty at T8. Normal visualized ribs, clavicles, and shoulders. There is no demonstrated abnormality of the visualized soft tissue structures of the upper abdomen. RAD/Chest PA and Lateral IMPRESSION: No acute pulmonary process Electronically Signed: Yovanny White MD at 16:43 EDT , Service support ,
== END ==
PROVIDERS: PCP Internal Medicine; Referring Provider Internal Medicine; Visit Provider Internal Medicine
DX: R06.02 Shortness of breath (principal)
CPT/HCPCS: 71046

== ENCOUNTER → 2020-12-03 09:01 | Outpatient (CLI) | payer OTHER, SELFPAY ==
[2020-12-03 10:10] LABS: Absolute Lymphocyte Count 1.18 X10^3/uL (0.83-4.51); Absolute Neutrophil Count 5.8 X10^3/uL (2.0-7.7); Basophil# 0.01 X10^3/uL; Basophil% 0.1 % (0-1); Eosinophil# 0.02 X10^3/uL; Eosinophils% 0.3 % (0-5); Hematocrit 35.9 % (37-47); Hemoglobin 11.7 g/dL (12.0-15.0); Lymphocyte # 1.18 X10^3/ul (0.83-4.51); Lymphocyte % 15.5 % (19-41); Mean Corp Hgb Conc 32.6 g/dL (32-36); Mean Corpuscular Hgb 32.1 pg (27.0-32.0); Mean Corpuscular Volume 98.4 fL (81-99); Mean Platelet Vol. 9.4 fl (6.2-12.0); Monocyte# 0.56 X10^3/uL; Monocyte% 7.3 % (0-10); NRBC Flagged by Analyzer 0 % (0-5); Neutrophil # 5.81 X10^3/uL (2.7-7.7); Neutrophil % 76.3 % (47-70); Platelet Count 281 K/mm3 (150-450); RBC Distribution Width CV 13.2 % (11.6-14.6); Red Blood Count 3.65 M/mm3 (4.2-5.4); White Blood Count 7.6 K/mm3 (4.4-11.0)
[2020-12-03 10:57] LABS: ALB/GLOB Ratio 1.1 RATIO (0.9-2.4); AST(SGOT) 11 U/L (15-37); Alanine Aminotransfer ALT/SGPT 19 U/L (13-56); Albumin, Serum 3.8 g/dL (3.2-5.0); Alkaline Phosphatase 43 U/L (45-117); Anion Gap 7 (5-15); BUN 7 mg/dL (7-18); BUN/Creat Ratio 9.4 RATIO (10-20); Calcium,Total 8.4 mg/dL (8.5-10.1); Chloride 99 mmol/L (98-107); Creatinine, Serum 0.74 mg/dL (0.55-1.02); EST Glomerular Filtration Rate 85 mL/min (>60); Est Glom Filt Rate - Afr Amer 103 mL/min (>60); Free T3 2.4 pg/mL (2.18-3.98); Globulin 3.4 g/dL (2.2-4.2); Glucose 96 mg/dL (74-106); Potassium 3.6 mmol/L (3.5-5.1); Protein, Total 7.2 g/dL (6.4-8.2); Sodium Level 133 mmol/L (136-145); T4 Free Direct 1.01 ng/dL (0.76-1.46)
== END ==
PROVIDERS: PCP Internal Medicine; Referring Provider Internal Medicine; Visit Provider Internal Medicine
DX: E04.1 Nontoxic single thyroid nodule (principal); R73.01 Impaired fasting glucose
CPT/HCPCS: 36415; 80053; 84439; 84443; 84481; 85025

== ENCOUNTER → 2021-01-08 09:04 | Outpatient (CLI) | payer OTHER, SELFPAY ==
[2021-01-08 10:11] LABS: Absolute Neutrophil Count 4.8 X10^3/uL (2.0-7.7); Basophil# 0.03 X10^3/uL; Basophil% 0.5 % (0-1); Eosinophil# 0.03 X10^3/uL; Eosinophils% 0.5 % (0-5); Hematocrit 36.7 % (37-47); Hemoglobin 11.9 g/dL (12.0-15.0); Lymphocyte % 16.7 % (19-41); Mean Corp Hgb Conc 32.4 g/dL (32-36); Mean Corpuscular Hgb 31.9 pg (27.0-32.0); Mean Corpuscular Volume 98.4 fL (81-99); Mean Platelet Vol. 10.1 fl (6.2-12.0); Monocyte# 0.57 X10^3/uL; Monocyte% 8.7 % (0-10); NRBC Flagged by Analyzer 0 % (0-5); Neutrophil # 4.81 X10^3/uL (2.7-7.7); Neutrophil % 73.1 % (47-70); Platelet Count 266 K/mm3 (150-450); RBC Distribution Width CV 13.5 % (11.6-14.6); RBC Distribution Width SD 48.4 fl (35.1-43.9); Red Blood Count 3.73 M/mm3 (4.2-5.4); White Blood Count 6.6 K/mm3 (4.4-11.0)
[2021-01-08 10:30] LABS: Hemoglobin A1c 5.5 % (3.8-5.6)
[2021-01-08 10:55] LABS: ALB/GLOB Ratio 1.2 RATIO (0.9-2.4); AST(SGOT) 18 U/L (15-37); Alanine Aminotransfer ALT/SGPT 23 U/L (13-56); Alkaline Phosphatase 45 U/L (45-117); Anion Gap 5 (5-15); BUN 9 mg/dL (7-18); BUN/Creat Ratio 10.8 RATIO (10-20); Calcium,Total 8.8 mg/dL (8.5-10.1); Chloride 105 mmol/L (98-107); Cholesterol 156 mg/dL (200); Creatinine, Serum 0.84 mg/dL (0.55-1.02); EST Glomerular Filtration Rate 74 mL/min (>60); Est Glom Filt Rate - Afr Amer 90 mL/min (>60); Globulin 3.2 g/dL (2.2-4.2); Glucose 91 mg/dL (74-106); High Density Lipoprotein 92 mg/dL; Potassium 3.6 mmol/L (3.5-5.1); Protein, Total 7.2 g/dL (6.4-8.2); Sodium Level 136 mmol/L (136-145); Thyroid Stim Hormone (TSH) 0.33 uIU/mL (0.358-3.74); Triglycerides 51 mg/dL; Very Low Density Lipoprotein 10 mg/dL (5-40)
== END ==
PROVIDERS: PCP Internal Medicine; Referring Provider Internal Medicine; Visit Provider Internal Medicine
DX: E03.9 Hypothyroidism, unspecified (principal); E78.49 Other hyperlipidemia; R73.01 Impaired fasting glucose
CPT/HCPCS: 36415; 80053; 80061; 83036; 84443; 85025

== ENCOUNTER → 2021-01-27 08:46 | Outpatient (CLI) | payer OTHER, SELFPAY ==
--- NOTE | 2021-01-27 08:51 | RAD_ITS ---
STUDY: X-RAY CHEST REASON FOR EXAM: Female, 60 years old. COUGH TECHNIQUE: PA and lateral COMPARISON: 06/21/2020 FINDINGS: The lungs are clear and expanded. Tiny granulomatous calcifications in the right lower lobe. There is no demonstrated pleural abnormality. Normal size heart. Normal mediastinum. Right hilar calcified nodes.. Normal visualized pulmonary arteries. Normal visualized aortic arch and descending thoracic aorta. Old compression fracture of the mid thoracic spine status post kyphoplasty. Normal visualized ribs, clavicles, and shoulders. Postop change status post multilevel cervical fusion There is no demonstrated abnormality of the visualized soft tissue structures of the upper abdomen. No significant change since prior exam RAD/Chest PA and Lateral IMPRESSION: Old granulomatous disease. No acute cardiopulmonary pathology. Electronically Signed: Johann Cortez MD at 16:53 EST , Service support ,
== END ==
PROVIDERS: PCP Internal Medicine; Referring Provider Internal Medicine; Visit Provider Internal Medicine
DX: R05.9 Cough, unspecified (principal)
CPT/HCPCS: 71046

== ENCOUNTER → 2021-02-12 08:49 | Outpatient (CLI) | payer OTHER, SELFPAY ==
[2021-02-12 10:21] LABS: Ferritin 8 ng/mL (8-252); Iron 135 ug/dL (50-170); Iron Binding Capacity,Total 415 ug/dL (250-450); PERCENT IRON SATURATION 32.5 % (15.0-55.0); T4 Free Direct 0.69 ng/dL (0.76-1.46)
[2021-02-13 08:41] LABS: Thyroid Peroxidase AB 162 IU/mL (0-34)
== END ==
PROVIDERS: PCP Internal Medicine; Referring Provider Internal Medicine; Visit Provider Internal Medicine
DX: G25.81 Restless legs syndrome (principal); E03.9 Hypothyroidism, unspecified
CPT/HCPCS: 36415; 82728; 83540; 83550; 84439; 84443; 86376

== ENCOUNTER → 2021-02-25 15:28 | Outpatient (CLI) | payer OTHER, SELFPAY ==
--- NOTE | 2021-02-25 15:30 | RAD_ITS ---
HISTORY: COUGH EXAMINATION/TECHNIQUE: XR Chest 2 Views: 2 views COMPARISON: 01/27/21 FINDINGS: LINES/DEVICES: None. LUNGS: Left lower lobe consolidation with small pleural effusion. Right lung clear. MEDIASTINUM AND CARDIOVASCULAR STRUCTURES: Cardiac silhouette not enlarged. Central airways and mediastinal contour are unremarkable. BONES AND SOFT TISSUES: No acute bony abnormalities. Stable mid thoracic kyphoplasty. RAD/Chest PA and Lateral IMPRESSION: Left lower lobe consolidation with pleural effusion, findings consistent with pneumonia. Recommend follow-up to complete resolution. at 1612 Reported and signed by: Pascual Gramajo MD Electronically Signed: Pascual Gramajo MD at 16:11 EST Tel , Service support ,
[2021-02-25 15:39] LABS: Mucous, Urine 0 SEEN /hpf (<or=2+); Red Blood Cells-Urine 0 SEEN /hpf (0-5); Squamous Epithelial Cells - UA 0 SEEN /hpf (5-10); White Blood Cells 0 SEEN /hpf (0-5)
[2021-02-25 17:32] LABS: Hematocrit 29.8 % (37-47); Hemoglobin 9.6 g/dL (12.0-15.0); Mean Corp Hgb Conc 32.2 g/dL (32-36); Mean Corpuscular Hgb 31.9 pg (27.0-32.0); Mean Platelet Vol. 10.1 fl (6.2-12.0); POSITIVE COUNT YES; POSITIVE DIFFERENTIAL YES; POSITIVE MORPHOLOGY YES; Platelet Count 221 K/mm3 (150-450); RBC Distribution Width CV 14.6 % (11.6-14.6); RBC Distribution Width SD 53.3 fl (35.1-43.9); Red Blood Count 3.01 M/mm3 (4.2-5.4); White Blood Count 15.5 K/mm3 (4.4-11.0)
[2021-02-25 17:33] LABS: Differential Indicated MANUAL DIFF
[2021-02-25 17:34] LABS: Color, Urine Yellow (Yellow); Glucose, Dipstick Normal (Normal); Ketone-Dipstick Negative (Negative); Leukocyte Esterase-Dipstick Negative /ul (Negative); Nitrite-Dipstick Negative (Negative); Occult Blood-Urine Negative /ul (Negative); Protein-Dipstick Negative (Negative); Urine Bilirubin Dipstick Negative (Negative); Urine Clarity Clear (Clear); Urine Urobilinogen Normal (Normal)
[2021-02-25 17:41] LABS: Bacteria RARE /hpf (None Seen)
[2021-02-25 17:45] LABS: ALB/GLOB Ratio 0.8 RATIO (0.9-2.4); AST(SGOT) 32 U/L (15-37); Alanine Aminotransfer ALT/SGPT 34 U/L (13-56); Albumin, Serum 2.7 g/dL (3.2-5.0); Alkaline Phosphatase 76 U/L (45-117); Anion Gap 4 (5-15); BUN 14 mg/dL (7-18); BUN/Creat Ratio 17.7 RATIO (10-20); Calcium,Total 7.3 mg/dL (8.5-10.1); Chloride 106 mmol/L (98-107); Creatinine, Serum 0.79 mg/dL (0.55-1.02); EST Glomerular Filtration Rate 79 mL/min (>60); Est Glom Filt Rate - Afr Amer 96 mL/min (>60); Globulin 3.6 g/dL (2.2-4.2); Glucose 92 mg/dL (74-106); Potassium 3.6 mmol/L (3.5-5.1); Protein, Total 6.3 g/dL (6.4-8.2); Sodium Level 135 mmol/L (136-145)
[2021-02-25 17:51] LABS: Procalcitonin 6.03 ng/mL (0.00-0.09)
[2021-02-25 17:59] LABS: Lactic Acid 1.2 mmol/L (0.4-1.9)
[2021-02-25 18:22] LABS: Lymphocyte 6 % (19-41); Metamyelocyte 2 % (0-1); Monocyte 1 % (0-10); Myelocyte 2 % (0-0); Neutrophil-Band 8 % (0-5); Neutrophil-Segmented 81 % (47-70); Total Cells Counted 100 (MANUAL DIFF)
[2021-02-25 18:25] LABS: Absolute Lymphocyte Count 0.93 X10^3/uL (0.83-4.51); Absolute Neutrophil Count 13.8 X10^3/uL (2.0-7.7)
[2021-02-25 18:26] LABS: Anisocytosis 1+; Platelet Estimate ADEQUATE (ADEQ); Red Cell Morphology N CHROM NORMAL (NORM C&C)
[2021-02-25 18:27] LABS: Macrocytosis 1+; Ovalocyte RARE
[2021-03-01 14:22] LABS: Pathologist Review Reviewed
== END ==
PROVIDERS: PCP Internal Medicine; Referring Provider Internal Medicine; Visit Provider Internal Medicine
DX: R05.9 Cough, unspecified (principal); I95.9 Hypotension, unspecified
CPT/HCPCS: 36415; 71046; 80053; 81001; 83605; 84145; 85025

== ENCOUNTER 2021-03-02 12:26 | Outpatient (CLI) | payer OTHER, SELFPAY ==
[2021-03-02 12:43] LABS: Hemoglobin 11.2 g/dL (12.0-15.0); Mean Corp Hgb Conc 32.9 g/dL (32-36); Mean Corpuscular Hgb 31.7 pg (27.0-32.0); Mean Corpuscular Volume 96.3 fL (81-99); Mean Platelet Vol. 9.6 fl (6.2-12.0); POSITIVE COUNT YES; POSITIVE MORPHOLOGY YES; Platelet Count 393 K/mm3 (150-450); RBC Distribution Width CV 14.8 % (11.6-14.6); RBC Distribution Width SD 52.4 fl (35.1-43.9); Red Blood Count 3.53 M/mm3 (4.2-5.4); White Blood Count 7.7 K/mm3 (4.4-11.0)
[2021-03-02 12:44] LABS: Differential Indicated MANUAL DIFF
[2021-03-02 12:51] LABS: ALB/GLOB Ratio 0.9 RATIO (0.9-2.4); AST(SGOT) 14 U/L (15-37); Alanine Aminotransfer ALT/SGPT 44 U/L (13-56); Albumin, Serum 3.1 g/dL (3.2-5.0); Alkaline Phosphatase 70 U/L (45-117); Anion Gap 9 (5-15); BUN 10 mg/dL (7-18); BUN/Creat Ratio 12.5 RATIO (10-20); Calcium,Total 9.1 mg/dL (8.5-10.1); Chloride 97 mmol/L (98-107); EST Glomerular Filtration Rate 79 mL/min (>60); Est Glom Filt Rate - Afr Amer 95 mL/min (>60); Globulin 3.4 g/dL (2.2-4.2); Glucose 92 mg/dL (74-106); Potassium 4.3 mmol/L (3.5-5.1); Protein, Total 6.5 g/dL (6.4-8.2); Sodium Level 134 mmol/L (136-145)
[2021-03-02 13:46] LABS: Lymphocyte 13 % (19-41); Metamyelocyte 6 % (0-1); Monocyte 15 % (0-10); Myelocyte 1 % (0-0); Neutrophil-Segmented 65 % (47-70); Total Cells Counted 100 (MANUAL DIFF)
[2021-03-02 14:50] LABS: D-Dimer Quantitative (DVT/PE) 1.48 FEU/ug/m (0.27-0.49)
[2021-03-03 13:22] LABS: Pathologist Review Reviewed
== END 2021-03-02 23:59 | disposition short-term general hospital (02) ==
LOC: LAB 12:26
PROVIDERS: PCP Internal Medicine; Referring Provider Internal Medicine; Visit Provider Internal Medicine
DX: J18.9 Pneumonia, unspecified organism (principal)
CPT/HCPCS: 80053; 85025; 85379

== ENCOUNTER 2021-03-05 16:04 | Outpatient (CLI) | payer OTHER, SELFPAY | END 2021-03-05 23:59 | disposition short-term general hospital (02) | LOC: LAB 16:06 | PROVIDERS: PCP Internal Medicine; Visit Provider Internal Medicine | DX: R69 Illness, unspecified (principal) | CPT/HCPCS: 36415; 85025 ==

== ENCOUNTER 2021-03-05 16:11 | Outpatient (CLI) | payer OTHER, SELFPAY ==
--- NOTE | 2021-03-05 16:14 | CT_ITS ---
STUDY: CTA CHEST REASON FOR EXAM: Female, 60 years old. CHEST PAIN/ELEVATED D DIMER RADIATION DOSAGE (If Supplied By Facility): CTDIvol = ( 5.86 ) mGy, DLP = ( 145.85 ) mGycm TECHNIQUE: The examination was performed with the intravenous administration of IV 100mL Isovue-370. Post-processing of the angiographic images was performed, with multiplanar reformation and 3D reconstruction. Individualized dose optimization techniques were used for this CT. COMPARISON: None. FINDINGS: Normal enhancement of the main pulmonary artery and right and left pulmonary arteries. Normal enhancement of the bilateral peripheral pulmonary arteries. There is no demonstrated pulmonary embolism. Normal thoracic aorta and visualized great vessels. There is no demonstrated aortic dissection. There is a left infrahilar mass or masslike consolidative density measuring approximately 3.4 x 2.3 cm Heart is normal size however there is a small pericardial effusion. Normal mediastinum. Calcified right hilar adenopathy. Normal visualized trachea and bronchi. The lungs are well expanded. Small left pleural effusion with compressive atelectasis in left lower lobe. Normal chest wall structures. Dorsal spine demonstrates degenerative change. There is an old compression fracture status post kyphoplasty. Normal visualized upper abdomen. CT/CTA Chest W/WO Contrast IMPRESSION: There is a left infrahilar mass or masslike consolidative density probably inflammatory although neoplasm not entirely excluded... Small left pleural effusion and trace of atelectasis in left lower lobe. No evidence for pulmonary embolus Electronically Signed: Johann Cortez MD at 19:45 EST , Service support ,
[2021-03-05 16:55] LABS: Absolute Lymphocyte Count 1.04 X10^3/uL (0.83-4.51); Absolute Neutrophil Count 7.7 X10^3/uL (2.0-7.7); Basophil# 0.02 X10^3/uL; Basophil% 0.2 % (0-1); Hematocrit 36.1 % (37-47); Hemoglobin 11.8 g/dL (12.0-15.0); Lymphocyte # 1.04 X10^3/ul (0.83-4.51); Lymphocyte % 11.2 % (19-41); Mean Corp Hgb Conc 32.7 g/dL (32-36); Mean Corpuscular Hgb 32.1 pg (27.0-32.0); Mean Corpuscular Volume 98.1 fL (81-99); Mean Platelet Vol. 9.2 fl (6.2-12.0); Monocyte# 0.33 X10^3/uL; Monocyte% 3.6 % (0-10); NRBC Flagged by Analyzer 0 % (0-5); Neutrophil # 7.72 X10^3/uL (2.7-7.7); Neutrophil % 83.3 % (47-70); Platelet Count 480 K/mm3 (150-450); RBC Distribution Width CV 14.6 % (11.6-14.6); RBC Distribution Width SD 53.2 fl (35.1-43.9); Red Blood Count 3.68 M/mm3 (4.2-5.4); White Blood Count 9.3 K/mm3 (4.4-11.0)
== END 2021-03-05 23:59 | disposition short-term general hospital (02) ==
PROVIDERS: PCP Internal Medicine; Visit Provider Internal Medicine
DX: J90 Pleural effusion, not elsewhere classified (principal); R91.8 Other nonspecific abnormal finding of lung field; R07.9 Chest pain, unspecified; R79.1 Abnormal coagulation profile
CPT/HCPCS: 36415; 71275; 85025; Q9967

== ENCOUNTER 2021-03-13 12:09 | Outpatient (CLI) | payer OTHER, SELFPAY ==
[2021-03-13 12:22] VITALS: BP 117/73; PULSE 80; RESP 16; TEMP 36.3; O2SAT 99; BMI 20.9
[2021-03-13] MEDS: 0.9% Saline Lock 10 ML Syringe IV (12:26)
[2021-03-13 12:56] VITALS: BP 116/73; PULSE 72; RESP 16; TEMP 36.9; O2SAT 100
[2021-03-13 13:48] VITALS: BP 119/68; PULSE 71; RESP 16; TEMP 37.1; O2SAT 99
== END 2021-03-13 23:59 | disposition home or self-care (01) ==
LOC: MS3OUT 12:10 → MS3 12:10
PROVIDERS: PCP Internal Medicine; Referring Provider Nurse Practitioner Adult Health; Visit Provider Nurse Practitioner Adult Health
DX: Z23 Encounter for immunization (principal); U07.1 COVID-19
CPT/HCPCS: J7050; M0245; Q0245; A4216

== ENCOUNTER 2021-03-17 16:34 | Outpatient (CLI) | payer OTHER, SELFPAY ==
--- NOTE | 2021-03-17 16:44 | RAD_ITS ---
STUDY: X-RAY CHEST REASON FOR EXAM: Female, 60 years old. Shortness of breath. TECHNIQUE: PA and lateral views of the chest. COMPARISON: 03/02/2021. FINDINGS: The lungs are clear and expanded. There is no demonstrated pleural abnormality. Normal size heart. Calcified lymph nodes are again seen in the right hilum. Normal visualized pulmonary arteries. Normal visualized aortic arch and descending thoracic aorta. Stable vertebral augmentation of T7. No osseous change. There is no demonstrated abnormality of the visualized soft tissue structures of the upper abdomen. RAD/Chest PA and Lateral IMPRESSION: No acute cardiopulmonary disease. Again seen is evidence of old granulomatous disease. Electronically Signed: Aniket Pena DO at 16:58 EST Tel [phone], Service support ,
== END 2021-03-17 23:59 | disposition short-term general hospital (02) ==
LOC: RAD.FUTURE 16:36 → RAD 16:37
PROVIDERS: PCP Internal Medicine; Referring Provider Internal Medicine; Visit Provider Internal Medicine
DX: R06.02 Shortness of breath (principal); R07.9 Chest pain, unspecified
CPT/HCPCS: 71046

== ENCOUNTER 2021-03-18 14:16 | Outpatient (CLI) | payer OTHER, SELFPAY ==
[2021-03-18 15:04] LABS: Absolute Lymphocyte Count 2.38 X10^3/uL (0.83-4.51); Absolute Neutrophil Count 3.4 X10^3/uL (2.0-7.7); Basophil# 0.04 X10^3/uL; Basophil% 0.6 % (0-1); Eosinophil# 0.02 X10^3/uL; Eosinophils% 0.3 % (0-5); Hematocrit 37.8 % (37-47); Hemoglobin 11.9 g/dL (12.0-15.0); Lymphocyte # 2.38 X10^3/ul (0.83-4.51); Lymphocyte % 36.2 % (19-41); Mean Corp Hgb Conc 31.5 g/dL (32-36); Mean Corpuscular Hgb 31.2 pg (27.0-32.0); Mean Platelet Vol. 9.3 fl (6.2-12.0); Monocyte# 0.66 X10^3/uL; NRBC Flagged by Analyzer 0 % (0-5); Neutrophil # 3.44 X10^3/uL (2.7-7.7); Neutrophil % 52.4 % (47-70); Platelet Count 395 K/mm3 (150-450); RBC Distribution Width CV 14.8 % (11.6-14.6); RBC Distribution Width SD 54.2 fl (35.1-43.9); Red Blood Count 3.82 M/mm3 (4.2-5.4); White Blood Count 6.6 K/mm3 (4.4-11.0)
[2021-03-18 15:32] LABS: D-Dimer Quantitative (DVT/PE) 0.47 FEU/ug/m (0.27-0.49)
== END 2021-03-18 23:59 | disposition short-term general hospital (02) ==
LOC: MTLAB 14:17
PROVIDERS: PCP Internal Medicine; Referring Provider Internal Medicine; Visit Provider Internal Medicine
DX: R07.9 Chest pain, unspecified (principal)
CPT/HCPCS: 36415; 85025; 85379

== ENCOUNTER 2021-04-30 12:45 | Outpatient (CLI) | payer OTHER, SELFPAY ==
--- NOTE | 2021-04-30 12:52 | CT_ITS ---
STUDY: CT Chest W/O Contrast Injection 04/30/2021 9:19 PM REASON FOR EXAM: Female, 60 years old. PULM NODULE Individualized dose optimization techniques were used for this CT. TECHNIQUE: Transaxial imaging was performed withoutIV contrast material. COMPARISON: Mar 05 2021 4:24pm report only. NO images. FINDINGS: There are degenerative changes of the shoulders. There is no pneumothorax. There is no demonstrated pleural abnormality. Scattered right pulmonary calcified granulomas. Cervical spinal fusion hardware placement. Normal heart and pericardium with no evidence for calcifications of the coronary arteries. Normal mediastinum. Normal hilar regions. Normal pulmonary arteries. There is atherosclerotic calcification of the aortic arch with tortuosity and elongation of the aortic arch and descending thoracic aorta. There are multi-level degenerative changes of the thoracic spine. There are no acute findings of the upper abdomen. Stable vertebral plasty changes. CT/Chest without Contrast IMPRESSION: There are no acute findings. Electronically Signed: Erasto Persaud MD at 21:21 EST ,
== END 2021-04-30 23:59 | disposition home or self-care (01) ==
PROVIDERS: PCP Internal Medicine; Referring Provider Internal Medicine Pulmonary Disease; Visit Provider Internal Medicine Pulmonary Disease
DX: R91.1 Solitary pulmonary nodule (principal)
CPT/HCPCS: 71250

== ENCOUNTER 2021-05-06 09:13 | Outpatient (CLI) | payer OTHER, SELFPAY ==
--- NOTE | 2021-05-06 09:18 | US_ITS ---
HISTORY: NODULES EXAMINATION: US Thyroid (eg thyroid, parathyroid, parotid) TECHNIQUE: Macario scale and color doppler imaging was performed of the thyroid gland. COMPARISON: 09/17/19 FINDINGS: RIGHT THYROID LOBE: 3.0 x 1.0 x 0.8 cm. Heterogenous echotexture with normal vascularity. No thyroid nodules are present. LEFT THYROID LOBE: 2.3 x 1.0 x 0.7 cm. Heterogenous echotexture with normal vascularity. No thyroid nodules are present. ISTHMUS: 2 mm. No thyroid nodules are present. Possible parathyroid gland deep to the right lobe measures 3 x 6 x 7 mm. US/Thyroid IMPRESSION: Heterogenous thyroid parenchyma without redemonstration of nodules seen on prior exam. Possible 7 mm right parathyroid gland. at 2155 Reported and signed by: Pascual Gramajo MD Electronically Signed: Pascual Gramajo MD at 21:54 EST ,
== END 2021-05-06 23:59 | disposition home or self-care (01) ==
LOC: US 09:14
PROVIDERS: PCP Internal Medicine; Referring Provider Internal Medicine; Visit Provider Internal Medicine
DX: E04.1 Nontoxic single thyroid nodule (principal)
CPT/HCPCS: 76536

== ENCOUNTER → 2021-07-07 | Outpatient (CLI) | payer OTHER, SELFPAY ==
--- NOTE | 2021-07-07 14:15 | RAD_ITS ---
STUDY: X-RAY - RIGHT FOOT CLINICAL: Female, 60 years old. FOOT PAIN TECHNIQUE: 3 view(s) of the foot. COMPARISON: None. FINDINGS: Small plantar spur. Normal visualized subtalar, talonavicular, calcaneocuboid, tarsal and tarsometatarsal articulations. Nondisplaced oblique fracture through the midshaft of the fifth metatarsal. Normal metatarsophalangeal joint of the great toe. Normal tibial and fibular sesamoid bones. Normal interphalangeal joint of the great toe. Normal phalanges of the great toe. Normal second through fifth metatarsophalangeal joints. Normal interphalangeal joints and phalanges of the lesser toes. Soft tissue swelling. RAD/Foot min 3 Views IMPRESSION: Nondisplaced oblique fracture of the midshaft of the fifth metatarsal with overlying soft tissue swelling. Electronically Signed: Barrera Nguyen MD at 14:55 EDT ,
--- NOTE | 2021-07-07 14:15 | RAD_ITS ---
STUDY: X-RAY - RIGHT ANKLE REASON FOR EXAM: Female, 60 years old. FOOT PAIN following injury. TECHNIQUE: 3 view(s) of the ankle. COMPARISON: None. FINDINGS: Normal visualized distal tibia and fibula. Normal medial and lateral malleoli. Normal tibiotalar articulation and ankle mortise. Small plantar spur. The visualized subtalar, talonavicular, calcaneocuboid and tarsal articulations are normal. The soft tissue structures are unremarkable. RAD/Ankle min 3 Views IMPRESSION: Small plantar spur. Electronically Signed: Barrera Nguyen MD at 14:56 EDT ,
== END | disposition home or self-care (01) ==
LOC: MTRAD 14:13
PROVIDERS: PCP Internal Medicine; Referring Provider Internal Medicine; Visit Provider Internal Medicine
DX: M79.671 Pain in right foot (principal)
CPT/HCPCS: 73610; 73630

== ENCOUNTER 2021-07-14 13:30 | Outpatient (RCR) | payer OTHER, SELFPAY ==
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
--- NOTE | 2021-07-14 14:02 | HP.PTDCSUM ---
It has been my pleasure to treat TITA LAW referred by Dr. Martha Shah DO, with the diagnosis of cervical radic, cervical spasm for a total of 7 visit(s). Discharge Date: 07/14/21 Please see the following information for a summary of their discharge status. Subjective: Pt broke her foot and is NWB in a boot for 6 weeks with crutches. She gets another x-ray next week. She thinks that she will cancel her next appt cause this is too much. She has drop foot on the R side and was doing stuff around the house and went to get up and he toe caught and fell down with feet completely under her. Some part of her exercises is helping the anterior chest pain. PT is doing her scapular squeezes through out the day. neck pain Pain Intensity (Out of 10): 6 L shoulder pain Pain Intensity (Out of 10): 7 thoracic pain Pain Intensity (Out of 10): 6 ant chest pain Pain Intensity (Out of 10): 4 R shoulder pain Pain Intensity (Out of 10): 7 R foot pain Pain Intensity (Out of 10): 7 Objective/Function: Pt slower movements today but complains due to the weather. Goal 1:: I HEP Goal Progress: Goal Met Goal 2:: Decrease thoracic pain and neck pain to 4/10 with ADL's (pt reports 7/10 constant at time of eval) Goal Progress: Goal Met Goal 3:: Be able to raise B arms overhead to 120 degrees with 50% less pain Goal Progress: Goal Met Plan: Pt will stop PT until her foot is healed. Discharge Comments: DC PT If there are questions or concerns regarding this patient's physical therapy, please feel free to call me at [phone]. Thank you for the referral of this patient. Sincerely, Padmini Hensley, MPT Balance/Gait/Functional tests - Balance/Special Test Scores Oswestry Neck Score: 21
== END 2021-07-14 19:00 | disposition home or self-care (01) ==
LOC: PT 13:30
PROVIDERS: PCP Internal Medicine; Referring Provider Internal Medicine; Visit Provider Internal Medicine
DX: M54.12 Radiculopathy, cervical region (principal); M62.838 Other muscle spasm
CPT/HCPCS: 97110; 97162; 97530

== ENCOUNTER 2021-08-06 15:41 | Emergency (ER) | payer OTHER, SELFPAY ==
[2021-08-06 15:45] VITALS: BP 158/94; PULSE 86; RESP 16; TEMP 37.1; O2SAT 100; BMI 22.7
--- NOTE | 2021-08-06 16:02 | CT_ITS ---
EXAM: CT CERVICAL SPINE WITHOUT INTRAVENOUS CONTRAST CLINICAL INDICATION: fall, pain TECHNIQUE: Helically acquired images were obtained of the cervical spine without intravenous contrast. 2D reformatted images were reviewed. This CT exam was performed using one or more of the following dose reduction techniques: automated exposure control, adjustment of the mA and/or kV according to patient size, and/or use of iterative reconstruction technique. This report was created using Fis[employer] report Wingz technology. COMPARISON: None. FINDINGS: VERTEBRAE: Hardware from anterior fusion extending from C4 through C6. No fracture. No traumatic subluxation. No discrete lytic or blastic abnormality. Normal alignment. Normal craniocervical junction and cervicothoracic junction. DISCS/SPINAL CANAL/NEURAL FORAMINA: Unremarkable. Disc heights are preserved. No critical stenosis. SOFT TISSUES: Unremarkable. No prevertebral soft tissue swelling. LYMPH NODES: Unremarkable. No cervical adenopathy. LUNG APICES: Unremarkable as visualized. Clear. CT/Spine Cervical without Contras IMPRESSION: No acute findings in the cervical spine. Hardware from anterior fusion is in good position. Electronically Signed: Lamin Montana MD at 17:05 EDT ,
--- NOTE | 2021-08-06 16:02 | CT_ITS ---
STUDY: CT BRAIN WITHOUT CONTRAST REASON FOR EXAM: Female, 61 years old. migraine RADIATION DOSAGE (If Supplied By Facility): CTDIvol = ( 44.99 ) mGy, DLP = ( 779.24 ) mGycm TECHNIQUE: Transaxial CT imaging of the brain was performed without administration of intravenous contrast material. Individualized dose optimization techniques were used for this CT. COMPARISON: 08/26/2020 FINDINGS: Normal soft tissue structures. Normal calvarium. Normal size ventricles and extra-axial spaces for the patient''s age. Normal white matter tracts of the cerebral hemispheres. Normal basal ganglia and thalami. Normal brainstem. Normal cerebellum. There is no intracranial hemorrhage. There are no findings of an acute ischemic infarction. Normal visualized paranasal sinuses. CT/Brain/Head without Contrast IMPRESSION: Normal unenhanced CT scan of the brain. Electronically Signed: Mario gAudelo MD at 16:45 EDT ,
--- NOTE | 2021-08-06 16:05 | EX.ED.DYSGE1 ---
HPI History of Present Illness Chief Complaint: Headache Detail of Chief Complaint: Headache and neck pain Informant: patient and family Onset/Context/Timing Onset: Days Context: Gradual Onset Narrative Narrative: Patient reports having Botox injection 1 week ago for her migraines. She states the person who did at this time put in a different location. Since that time has had waxing and waning migraine. On Monday she fell onto steps. Since that time she has had increased neck pain. She has had a prior cervical fusion. She presented to her PCPs office today with severe neck pain and migraine. She did take [place] this morning that she is prescribed by her pain management doctor. She took Valium at noon. She took Nurtec for her migraine 1 hour prior to arrival in the ER. [facility] Medical History Adrenal insufficiency Anxiety Asthma Cerebrovascular disease Degeneration of spine Fusion of lumbar spine Hypersomnolence Hypothyroid Migraines Raynaud disease Vagal reaction Home Medications buspirone 15 mg PO TID 12/24/15 [History Last Taken 03/30/18] levothyroxine [Synthroid] 150 mcg PO SUTUTHSA 12/24/15 [History Last Taken 12/24/15] liothyronine 5 mcg PO DAILY 12/24/15 [History Last Taken 03/30/18] prednisone 7 mg PO DAILY 03/15/16 [History Last Taken Unknown] Lactobac. rhamnosus GG-inulin [Culturelle Probiotics Capsule] 1 ea PO DAILY 03/06/18 [History Last Taken Unknown] calcium carb-D3-mag [id number] 2 ea PO DAILY 03/06/18 [History Last Taken Unknown] cholecalciferol (vitamin D3) [Vitamin D3] 2,000 unit PO DAILY 03/06/18 [History Last Taken Unknown] cyclosporine [Restasis Ophthalmic] 1 drp EACH EYE DAILY 03/06/18 [History Last Taken Unknown] diazepam [Valium] 5 mg PO BID 03/06/18 [History Last Taken 03/30/18] levothyroxine [Synthroid] 75 mcg PO MOWEFR 03/06/18 [History Last Taken 03/30/18] rosuvastatin [Crestor] 20 mg PO QHS 03/06/18 [History Last Taken Unknown] tizanidine 2 mg PO BID 03/06/18 [History Last Taken 03/30/18] tizanidine [Zanaflex] 4 mg PO QHS 03/06/18 [History Last Taken Unknown] topiramate 100 mg PO QHS 03/06/18 [History Last Taken Unknown] topiramate [Topamax] 50 mg PO DAILY 03/06/18 [History Last Taken 03/30/18] vilazodone [Viibryd] 20 mg PO DAILY 03/06/18 [History Last Taken Unknown] [id number] [Mucinex Fast-Max Congest-Cough] 1 ea PO DAILY 03/27/18 [History Last Taken Unknown] denosumab [Prolia] 60 mg SQ Q6M 03/30/18 [History Last Taken Unknown] albuterol sulfate 90 mcg INHALATION DAILY 03/13/21 [History Last Taken Unknown] amitriptyline 10 mg PO DAILY 03/13/21 [History Last Taken Unknown] hydrocodone-acetaminophen 5 - 325 tab PO TID PRN 03/13/21 [History Last Taken Unknown] nifedipine 30 mg PO DAILY 03/13/21 [History Last Taken Unknown] rimegepant [Nurtec ODT] 75 mg PO DAILY 03/13/21 [History Last Taken Unknown] cyclobenzaprine 10 mg PO TID PRN #6 tab 08/06/21 [Rx Last Taken Unknown] Allergy/AdvReac Type Severity Reaction Status Date / Time sumatriptan [From Imitrex] AdvReac Severe tachycardia Verified 08/06/21 15:47 gabapentin AdvReac Swelling Verified 08/06/21 15:47 pregabalin [From Lyrica] AdvReac Swelling Verified 08/06/21 15:47 Social History Smoking Status: Current every day smoker tobacco type: cigarettes ROS ROS ED Constitutional Constitutional ED: Denies chills or fever(s) Eyes Eyes: Denies change in vision ENT ENT ED: Denies rhinorrhea or sore throat Cardiovascular Cardiovascular: Denies chest pain or palpitations Respiratory/Chest Respiratory/Chest: Denies cough or dyspnea Gastrointestinal Gastrointestinal: Denies abdominal pain, nausea or vomiting Musculoskeletal Musculoskeletal: Reports neck pain Integumentary Denies rash Neurologic Neurologic: Reports headache(s); Denies paresthesias Allergic/Immunologic Allergic/Immunologic ED: Denies urticaria EXAM Physical Exam Const Vital Signs: 08/06/21 15:45 Temperature 98.8 F Temperature Source Oral Pulse Rate 86 Respiratory Rate 16 Blood Pressure 158/94 H Blood Pressure Mean 115 Pulse Ox 100 Oxygen Delivery Method Room Air Positive well nourished and well developed General Appearance ED: well developed HEENT Reports moist mucous membranes Eyes PERRL and EOMs intact bilaterally Neck Neck Narrative: Diffuse paracervical muscular tenderness to palpation. Chest Wall inspection of chest normal and palpation of chest normal Resp normal respiratory effort and clear to auscultation bilaterally Cardio regular rate and regular rhythm GI non-tender Palpation: soft Extremity Extremity Narrative: Splint on right lower extremity secondary to broken foot. Neuro oriented x3 Neuro Narrative: No focal neurologic deficits Sensorium / Orientation: alert Psych mental status grossly normal Skin no rashes or lesions noted MDM MDM MDM Narrative Medical decision making narrative: Patient had taken her Nurtec just prior to arrival. She is given a dose of Toradol, morphine, and Zofran. CT scan of the head and C-spine ordered. Radiography Diagnostic Testing: Clinical Impression(s) from Imaging Studies Brain CT 08/06/21 16:02 IMPRESSION: Normal unenhanced CT scan of the brain. Electronically Signed: Mario Agudelo MD at 16:45 EDT , Cervical Spine CT 08/06/21 16:02 IMPRESSION: No acute findings in the cervical spine. Hardware from anterior fusion is in good position. Electronically Signed: Lamin Montana MD at 17:05 EDT , Treatment and Re-Evaluation Narrative: CT scan of the head and C-spine reveal no acute findings. Hardware is intact. Patient complains of continued pain. She has exquisite tenderness on palpation of the cervical musculature. This pain started the day after she fell on the steps. I believe this is all musculoskeletal in nature. She has no evidence of acute infection or meningitis. I do not believe she needs blood work or further testing. She is given a dose of morphine, Reglan, Benadryl, and a Lidoderm patch to her neck. On repeat evaluation she has been able to sleep and states she feels significantly improved. She has been taking tizanidine without much improvement in her muscle spasm in her neck. For this weekend only we will switch her back to Flexeril which she has taken in the past. She is to take this in place of her tizanidine. Patient is to follow-up with her primary care physician as well as her pain management doctor. Return precautions are given. Discharge Plan Triage Chief Complaint: Headache ED Provider: Patito Nair Dx/Rx/DC Orders Clinical Impression: Migraine, Cervical strain Instructions: ED, Migraine (Classical), ED Neck Sprain or Strain Prescriptions: New cyclobenzaprine 10 mg tablet 10 mg PO TID PRN (Reason: muscle spasm) Qty: 6 RF: 0 No Action buspirone 5 MG tablet 15 mg PO TID RF: 0 liothyronine 5 MCG tablet 5 mcg PO DAILY RF: 0 levothyroxine [Synthroid] 150 MCG tablet 150 mcg PO SUTUTHSA RF: 0 prednisone 5 MG tablet 7 mg PO DAILY RF: 0 tizanidine 4 MG tablet 2 mg PO BID RF: 0 levothyroxine [Synthroid] 75 MCG tablet 75 mcg PO MOWEFR RF: 0 diazepam [Valium] 5 MG tablet 5 mg PO BID RF: 0 Restasis 1 DROP dropperette 1 drp Each Eye DAILY RF: 0 rosuvastatin [Crestor] 20 MG tablet 20 mg PO QHS RF: 0 topiramate [Topamax] 50 MG tablet 50 mg PO DAILY RF: 0 topiramate 50 MG tablet 100 mg PO QHS RF: 0 tizanidine [Zanaflex] 4 MG capsule 4 mg PO QHS RF: 0 calcium carb-D3-mag [id number] 1 EACH tablet 2 ea PO DAILY RF: 0 cholecalciferol (vitamin D3) [Vitamin D3] 2,000 UNIT capsule 2,000 unit PO DAILY RF: 0 Viibryd 20 MG tablet 20 mg PO DAILY RF: 0 Culturelle Digestive Health 1 EACH capsule 1 ea PO DAILY RF: 0 Mucinex Fast-Max Congest-Cough 1 EACH tablet 1 ea PO DAILY RF: 0 Prolia 60 MG/ML syringe 60 mg SQ Q6M RF: 0 hydrocodone-acetaminophen 5-325 mg tablet 5 - 325 tab PO TID PRN (Reason: Pain) RF: 0 nifedipine 30 mg tablet extended release 30 mg PO DAILY RF: 0 amitriptyline 10 mg tablet 10 mg PO DAILY RF: 0 albuterol sulfate 90 mcg/actuation HFA aerosol inhaler 90 mcg INHALATION DAILY RF: 0 Nurtec ODT 75 mg tablet,disintegrating 75 mg PO DAILY RF: 0 Primary Care Provider: Martha Shah Referrals: Martha Shah DO [Primary Care Provider] - 5-7 Days Disposition Disposition: Home, Self Care Discharge Date/Time: 08/06/21 19:41
[2021-08-06] MEDS: 0.9% Normal Saline 1,000 ML 150 ML IV (16:15)
[2021-08-06] MEDS: Ketorolac 15 MG/ML Vial IV (16:15)
[2021-08-06] MEDS: Ondansetron 4 MG/2 ML Vial IV (16:15)
[2021-08-06] MEDS: Morphine 4 MG/ML Syringe IV ×2 (16:16→17:40)
[2021-08-06] MEDS: DiphenhydrAMINE 50 MG/ML Syringe 12.5 MG IV (17:38)
[2021-08-06] MEDS: Metoclopramide 10 MG/2 ML Vial 5 MG IV (17:40)
[2021-08-06] MEDS: Lidocaine 5% Patch 1 PATCH TOPICAL (17:40)
== END 2021-08-06 19:41 | disposition home or self-care (01) ==
PROVIDERS: Emergency Provider Emergency Medicine; PCP Internal Medicine; Visit Provider Emergency Medicine
DX: G43.909 Migraine, unspecified, not intractable, without status migrainosus (principal); S16.1XXA Strain of muscle, fascia and tendon at neck level, initial encounter; W10.9XXA Fall (on) (from) unspecified stairs and steps, initial encounter; E03.9 Hypothyroidism, unspecified; F41.9 Anxiety disorder, unspecified; F17.210 Nicotine dependence, cigarettes, uncomplicated; Z98.1 Arthrodesis status; Z79.899 Other long term (current) drug therapy
CPT/HCPCS: 70450; 72125; 96361; 96374; 96375; 96376; 99283; J7030; A4216; J2405

== ENCOUNTER → 2021-09-24 | Outpatient (CLI) | payer OTHER, SELFPAY ==
--- NOTE | 2021-09-24 15:43 | RAD_ITS ---
STUDY: X-RAY - RIGHT WRIST REASON FOR EXAM: Female, 61 years old. Pain. Evaluate for arthritis. TECHNIQUE: 3 view(s) of the wrist were obtained. COMPARISON: None. FINDINGS: Normal visualized distal radius and ulna. Normal radiocarpal articulation. Normal distal radioulnar articulation. Normal carpal bones. Mild arthrosis of the radial carpal row. Mild arthrosis of the first CMC joint. Normal second through fifth carpometacarpal articulations. Normal visualized metacarpal bones. The soft tissue structures are unremarkable. RAD/Wrist min 3 Views IMPRESSION: Mild arthrosis of the radial carpal row and first CMC joint. No acute abnormality, chondrocalcinosis or erosive changes. Electronically Signed: Murray Palma MD at 10:48 EDT ,
--- NOTE | 2021-09-24 15:43 | RAD_ITS ---
STUDY: X-RAY - LEFT WRIST REASON FOR EXAM: Female, 61 years old. Arthritis. Pain. TECHNIQUE: 3 view(s) of the wrist were obtained. COMPARISON: None. FINDINGS: Normal visualized distal radius and ulna. Normal radiocarpal articulation. Normal distal radioulnar articulation. Normal carpal bones. Mild arthrosis of the radial carpal row. Mild arthrosis of the first CMC joint. Normal second through fifth carpometacarpal articulations. Normal visualized metacarpal bones. The soft tissue structures are unremarkable. RAD/Wrist min 3 Views IMPRESSION: Mild arthrosis of the radial carpal row and first CMC joint. No acute abnormality, chondrocalcinosis or erosive changes. Electronically Signed: Murray Palma MD at 10:48 EDT ,
[2021-09-24 15:46] LABS: Lyme Ab Screen Interpretation REF LAB
[2021-09-24 18:16] LABS: Absolute Lymphocyte Count 1.92 X10^3/uL (0.83-4.51); Absolute Neutrophil Count 4.5 X10^3/uL (2.0-7.7); Basophil# 0.03 X10^3/uL; Basophil% 0.4 % (0-1); Eosinophil# 0.01 X10^3/uL; Eosinophils% 0.1 % (0-5); Hemoglobin 11.5 g/dL (12.0-15.0); Lymphocyte # 1.92 X10^3/ul (0.83-4.51); Lymphocyte % 26.9 % (19-41); Mean Corp Hgb Conc 33.8 g/dL (32-36); Mean Corpuscular Hgb 33.9 pg (27.0-32.0); Mean Corpuscular Volume 100.3 fL (81-99); Monocyte# 0.62 X10^3/uL; Monocyte% 8.7 % (0-10); NRBC Flagged by Analyzer 0 % (0-5); Neutrophil # 4.53 X10^3/uL (2.7-7.7); Neutrophil % 63.6 % (47-70); Platelet Count 289 K/mm3 (150-450); RBC Distribution Width CV 12.8 % (11.6-14.6); RBC Distribution Width SD 47.7 fl (35.1-43.9); Red Blood Count 3.39 M/mm3 (4.2-5.4); White Blood Count 7.1 K/mm3 (4.4-11.0)
[2021-09-24 18:28] LABS: Erythrocyte Sedimentation Rate 11 mm/hr (0-30)
[2021-09-24 18:35] LABS: ALB/GLOB Ratio 1.2 RATIO (0.9-2.4); AST(SGOT) 16 U/L (15-37); Alanine Aminotransfer ALT/SGPT 20 U/L (13-56); Albumin, Serum 4.1 g/dL (3.2-5.0); Alkaline Phosphatase 42 U/L (45-117); Anion Gap 6 (5-15); BUN 7 mg/dL (7-18); BUN/Creat Ratio 10.9 RATIO (10-20); CRP < 2.90 mg/L (0.0-3.0); Calcium,Total 8.8 mg/dL (8.5-10.1); Chloride 95 mmol/L (98-107); Creatinine, Serum 0.64 mg/dL (0.55-1.02); EST Glomerular Filtration Rate 100 mL/min (>60); Est Glom Filt Rate - Afr Amer 121 mL/min (>60); Globulin 3.3 g/dL (2.2-4.2); Glucose 79 mg/dL (74-106); Protein, Total 7.4 g/dL (6.4-8.2); Sodium Level 126 mmol/L (136-145)
[2021-09-27 14:13] LABS: Anti-Jo <0.2 AI (0.0-0.9); Lyme Scn Total Ab w/Rflx Negative (Negative)
== END | disposition home or self-care (01) ==
LOC: MTLAB 15:41
PROVIDERS: PCP Internal Medicine; Referring Provider Internal Medicine; Visit Provider Internal Medicine
DX: M18.0 Bilateral primary osteoarthritis of first carpometacarpal joints (principal)
CPT/HCPCS: 36415; 73110; 80053; 85025; 85652; 86140; 86235; 86618

== ENCOUNTER → 2021-10-26 | Outpatient (CLI) | payer OTHER, SELFPAY ==
--- NOTE | 2021-10-26 14:31 | VDLE_ITS ---
Reason For Study: Swelling Procedure LEFT This is a venous duplex using B-mode, color GSV is normal. flow and spectral Doppler. CFV is compressible, spontaneous, phasic, Exam performed in department. competent, and demonstrates normal A preliminary report was called and/or faxed augmentation. to Pablo. FV is compressible, spontaneous, phasic, competent and demonstrates normal augmentation. POP V is compressible, spontaneous, phasic, competent and demonstrates normal augmentation. T/P Trunk is compressible. PTV is compressible. LT PerV is compressible. VL/Venous Duplex US, Unilateral Interpretation Summary There is no evidence of left lower extremity deep vein thrombosis. Left great s aphenous vein appears patent and compressible segmentally. Ordering Physician: Martha Shah Referring Physician: Martha Shah D.O. Performed By: Lyudmila Harris RVT
[2021-10-26 15:36] LABS: Absolute Lymphocyte Count 1.99 X10^3/uL (0.83-4.51); Absolute Neutrophil Count 2.7 X10^3/uL (2.0-7.7); Basophil# 0.02 X10^3/uL; Basophil% 0.4 % (0-1); Eosinophil# 0.05 X10^3/uL; Eosinophils% 0.9 % (0-5); Hematocrit 36.2 % (37-47); Hemoglobin 12.1 g/dL (12.0-15.0); Lymphocyte # 1.99 X10^3/ul (0.83-4.51); Lymphocyte % 37.5 % (19-41); Mean Corp Hgb Conc 33.4 g/dL (32-36); Mean Corpuscular Hgb 34.1 pg (27.0-32.0); Mean Platelet Vol. 9.8 fl (6.2-12.0); Monocyte% 9.4 % (0-10); NRBC Flagged by Analyzer 0 % (0-5); Neutrophil # 2.73 X10^3/uL (2.7-7.7); Neutrophil % 51.6 % (47-70); Platelet Count 293 K/mm3 (150-450); RBC Distribution Width CV 12.2 % (11.6-14.6); RBC Distribution Width SD 46.4 fl (35.1-43.9); Red Blood Count 3.55 M/mm3 (4.2-5.4); White Blood Count 5.3 K/mm3 (4.4-11.0)
[2021-10-26 16:10] LABS: ALB/GLOB Ratio 1.3 RATIO (0.9-2.4); AST(SGOT) 14 U/L (15-37); Alanine Aminotransfer ALT/SGPT 19 U/L (13-56); Albumin, Serum 3.9 g/dL (3.2-5.0); Alkaline Phosphatase 45 U/L (45-117); Anion Gap 6 (5-15); BUN 6 mg/dL (7-18); BUN/Creat Ratio 9.2 RATIO (10-20); CRP < 2.90 mg/L (0.0-3.0); Calcium,Total 8.7 mg/dL (8.5-10.1); Chloride 101 mmol/L (98-107); Creatinine, Serum 0.66 mg/dL (0.55-1.02); EST Glomerular Filtration Rate 98 mL/min (>60); Est Glom Filt Rate - Afr Amer 119 mL/min (>60); Glucose 82 mg/dL (74-106); Protein, Total 6.9 g/dL (6.4-8.2); Sodium Level 135 mmol/L (136-145)
[2021-10-26 16:15] LABS: Erythrocyte Sedimentation Rate 4 mm/hr (0-30)
== END | disposition home or self-care (01) ==
PROVIDERS: PCP Internal Medicine; Visit Provider Internal Medicine
DX: M79.89 Other specified soft tissue disorders (principal)
CPT/HCPCS: 80053; 85025; 85652; 86140; 93971

== ENCOUNTER → 2021-10-28 | Outpatient (CLI) | payer OTHER, SELFPAY ==
--- NOTE | 2021-10-28 14:05 | MRI_ITS ---
STUDY: MRI CERVICAL SPINE WITH AND WITHOUT CONTRAST REASON FOR EXAM: Female, 61 years old. pt having L wrist drop and arm parathesia. -- pt having L wrist drop and arm parathesia. TECHNIQUE: Standardized fat and water weighted pulse sequences were obtained in the sagittal and axial following administration of IV 12cc clariscan. COMPARISON: None FINDINGS: Normal foramen magnum and brainstem-cervical cord junction. Normal craniovertebral junction. Normal anterior atlantoaxial articulation. Normal odontoid process. Normal cervical lordosis. Normal vertebral bodies and posterior osseous elements. C2-3: Normal endplates. Normal disc height, signal and morphology. Normal central canal and intervertebral neural foramina. C3-4: Moderate broad disc osteophyte complex produces moderate spinal stenosis but no neural foraminal stenosis. C4-5: Status post anterior cervical discectomy and fusion with anatomic alignment with no spinal stenosis or neural foraminal stenosis. C5-6: Status post anterior cervical discectomy and fusion with anatomic alignment and no spinal stenosis or neural foraminal stenosis. C6-7: Mild broad disc osteophyte complex produces mild spinal stenosis but no neural foraminal stenosis. C7-T1: Normal endplates. Normal disc height, signal and morphology. Normal central canal and intervertebral neural foramina. Normal cervical cord. Normal visualized soft tissue structures. MRI/Spine Cervical W/WO Contrast IMPRESSION: Status post anterior cervical discectomy and fusion from C3-4 through C6 with degenerative disc disease at C3/C4 and C6-C7. Electronically Signed: Mario Agudelo MD at 16:27 EDT ,
--- NOTE | 2021-10-28 14:05 | MRI_ITS ---
STUDY: MRI BRAIN WITH AND WITHOUT CONTRAST REASON FOR EXAM: Female, 61 years old. pt experiencing L arm paresthesia. Trying to r/o MS, stroke or ce -- pt experiencing L arm paresthesia. Trying to r/o MS, stroke or ce TECHNIQUE: Standardized multiplanar fat and water weighted pulse sequences were obtained. IV 12 cc clariscan was administered for the contrast portion of the examination. COMPARISON: 06/05/2020 FINDINGS: Normal size of the ventricles and extra-axial spaces for the patient''s age. No change in the hyperintensities in the periventricular and subcortical white matter consistent with microangiopathic gliosis or demyelinating disease (multiple sclerosis). No abnormal contrast enhancement of these areas. There is no evidence for recent intracranial ischemia or other cause of cytotoxic edema on diffusion weighted imaging (DWI). Normal T2* images of the brain without demonstrated susceptibility artifact. There is no demonstrated hemosiderin stain. Normal bilateral basal ganglia. Normal thalami. There is no extra-axial fluid accumulation. Normal flow voids within the major intracranial circulation suggesting patency by spin echo criteria. Normal venous enhancement. There is no enhancing intra-axial or extra-axial abnormality. Normal sella turcica, pituitary gland, infundibular stalk, optic chiasm and hypothalamus. Normal tectal plate and pineal gland. Normal midbrain, cherelle and medulla. Normal cerebellum. Normal basal cisterns. Normal bilateral temporal bones. Normal bilateral internal auditory canals. No demonstrated orbital abnormality, within the constraints of a routine brain study. Normal visualized paranasal sinuses. Normal calvarium and skull base. Normal visualized soft tissue structures. Normal visualized upper cervical spine. MRI/Brain W/WO Contrast IMPRESSION: No change from 06/05/2020. Electronically Signed: Mario Agudelo MD at 16:22 EDT ,
== END | disposition home or self-care (01) ==
PROVIDERS: PCP Internal Medicine; Referring Provider Internal Medicine; Visit Provider Internal Medicine
DX: M21.332 Wrist drop, left wrist (principal); R20.2 Paresthesia of skin; M79.89 Other specified soft tissue disorders
CPT/HCPCS: 70553; 72156; A9575

== ENCOUNTER → 2021-11-30 | Outpatient (CLI) | payer OTHER, SELFPAY ==
--- NOTE | 2021-11-30 13:29 | BI_ITS ---
MAMMOGRAPHY - BILATERAL SCREENING REASON FOR EXAM: Female, 61 years old. Routine annual screening examination. PERTINENT HISTORY: Mother with breast cancer. TECHNIQUE: Digital bilateral breast katia (3D mammographic acquisition) in the CC and MLO projections. 2-D mediolateral oblique (MLO) and craniocaudad (CC) views of both breasts were obtained. CAD: Full Field Digital Mammography with Computer Added Detection was performed. COMPARISON: Comparison is made with prior study 11/10/2020 and 09/17/2019. FINDINGS: Breast Composition: There are scattered areas of fibroglandular density. There are no dominant masses or suspicious calcifications. A tissue clip marker is once again seen in the axillary region of the left breast. No other significant abnormalities are identified. There has been no significant change since the prior study. BI/SCREENING MAMM (CAD), BILAT IMPRESSION: Stable bilateral screening mammogram. Yearly follow-up mammogram recommended. (A) ASSESSMENT CATEGORY: BIRADS Category 2: Benign. A letter regarding these results will be sent to the patient by the facility within 30 days. Approximately 10% of breast cancers are not detected by mammography. A normal mammogram should not delay biopsy of a clinically suspicious abnormality. [id number] Electronically Signed: Barrera Nguyen MD at 14:50 EDT ,
--- NOTE | 2021-11-30 13:34 | BD_ITS ---
STUDY: DUAL ENERGY X-RAY ABSORPTIOMETRY / DXA REASON FOR EXAM: Female, 61 years old. Z78 -- postmenopausal, osteopenia TECHNIQUE: Bone Mineral Density (BMD) measurements of lumbar spine and bilateral hips were obtained. COMPARISON: Comparison is made with prior examination of 09/17/2019. FINDINGS: Lumbar Spine (L1-L4): g/cm2 (0.821) / T-score (-2.1) / Z-score (-0.7) Findings are suggestive of osteopenia with a high fracture risk. Left Femur Total: g/cm2 (0.652) / T-score (-2.4) / Z-score (-1.5) Left Femoral Neck: g/cm2 (0.450) / T-score (-3.6) / Z-score (-2.3) Right Femur Total: g/cm2 (0.684) / T-score (-2.1) / Z-score (-1.2) Right Femoral Neck: g/cm2 (0.505) / T-score (-3.1) / Z-score (-1.8) The T-Scores on the most recent prior examination were: Lumbar Spine (L1-L4): There has been improvement of bone density since the previous examination. Left Femur Total: which represents an improvement of 8.7%. Right Femur Total: which represents an improvement of 25.4%. BD/Dexa Bone Density Study IMPRESSION: The patient is considered osteoporotic as outlined below according to World Tod Organization (WHO) criteria with a high fracture risk. There has been improvement of bone density since the previous examination. Reference Information: The T-score is the number of standard deviations above or below the standard which is normal for young adults at their peak bone mineral density. The World Health Organization (WHO) interprets the T-scores as follows: Above -1 Normal bone density Between -1 and -2.5 Osteopenia Equal to / or below -2.5 Osteoporosis As a practical clinical guideline, osteopenia may be graded as follows: Mild -1 through -1.5 Moderate -1.6 through -2.0 Severe -2.1 through -2.4 The Z-score is the number of standard deviations above or below age-matched controls. A Z-score of less than -1.5 would be considered abnormal. References: 1. NIH Osteoporosis and Related Bone Diseases www osteo.org 2. International Society for Clinical Densitometry www iscd.org 3. National Osteoporosis Foundation www nof.org Electronically Signed: Barrera Nguyen MD at 13:15 EDT ,
== END | disposition home or self-care (01) ==
LOC: OPBD 13:27
PROVIDERS: PCP Internal Medicine; Visit Provider Internal Medicine
DX: M81.0 Age-related osteoporosis without current pathological fracture (principal); Z78.0 Asymptomatic menopausal state; Z12.31 Encounter for screening mammogram for malignant neoplasm of breast; Z80.3 Family history of malignant neoplasm of breast
CPT/HCPCS: 77067; 77080

== ENCOUNTER → 2021-12-20 | Outpatient (CLI) | payer OTHER, SELFPAY ==
--- NOTE | 2021-12-20 08:59 | CDU_ITS ---
Reason For Study: Carotid Stenosis Rt. Velocities/BP Lt. Velocities/BP Prox CCA 101.4/32.2 cm/sec. Prox CCA 94.1/32.7 cm/sec. Mid CCA 96.0/33.3 cm/sec. Mid CCA 95.3/35.1 cm/sec. Dist CCA 82.8/27.8 cm/sec. Dist CCA 86.7/32.7 cm/sec. Prox ICA 67.7/21.5 cm/sec. Prox ICA 74.4/20.4 cm/sec. Mid ICA 100.2/36.3 cm/sec. Mid ICA 72.0/33.9 cm/sec. Dist ICA 79.3/30.2 cm/sec. Dist ICA 78.2/33.2 cm/sec. Rt. ICA/CCA = 1.0. Lt. ICA/CCA = 0.8. Prox ECA 84.2/16.0 cm/sec. Prox ECA 96.5/16.7 cm/sec. Rt. Vert. 43.0/14.3 cm/sec. Lt. Vert. 56.3/21.4 cm/sec. Right Extracranial There is intimal thickening but no significant atherosclerotic plaque noted in the right common carotid artery. There is heterogeneous, smooth atherosclerotic plaque noted in the right internal carotid artery. There is intimal thickening but no significant atherosclerotic plaque noted in the right external carotid artery. Antegrade flow is noted in the right vertebral artery. Left Extracranial There is intimal thickening but no significant atherosclerotic plaque noted in the left common carotid artery. There is intimal thickening but no significant atherosclerotic plaque noted in the left internal carotid artery. There is intimal thickening but no significant atherosclerotic plaque noted in the left external carotid artery. Antegrade flow is noted in the left vertebral artery. Procedure Carotid Duplex 62052. This is a Carotid Duplex examination using B-mode, color flow and specral Doppler. The exam was diagnostic. Exam performed in department. VL/Carotid Duplex Ultrasound Interpretation Summary Mild (<50%) stenosis right extracranial internal carotid. No significant athero sclerotic plaque or stenosis noted in the left internal carotid artery. Flow within the vertebral a rteries is antegrade bilaterally. Ordering Physician: Martha Shah Referring Physician: Martha Shah Performed By: Randall Mendoza RVT
[2021-12-20 10:03] LABS: Absolute Lymphocyte Count 2.06 X10^3/uL (0.83-4.51); Absolute Neutrophil Count 3.2 X10^3/uL (2.0-7.7); Basophil# 0.04 X10^3/uL; Basophil% 0.7 % (0-1); Eosinophil# 0.06 X10^3/uL; Hematocrit 35.5 % (37-47); Hemoglobin 11.8 g/dL (12.0-15.0); Lymphocyte # 2.06 X10^3/ul (0.83-4.51); Lymphocyte % 34.6 % (19-41); Mean Corp Hgb Conc 33.2 g/dL (32-36); Mean Corpuscular Hgb 33.6 pg (27.0-32.0); Mean Corpuscular Volume 101.1 fL (81-99); Mean Platelet Vol. 9.4 fl (6.2-12.0); Monocyte# 0.61 X10^3/uL; Monocyte% 10.2 % (0-10); NRBC Flagged by Analyzer 0 % (0-5); Neutrophil # 3.18 X10^3/uL (2.7-7.7); Neutrophil % 53.3 % (47-70); Platelet Count 266 K/mm3 (150-450); RBC Distribution Width CV 12.1 % (11.6-14.6); RBC Distribution Width SD 44.7 fl (35.1-43.9); Red Blood Count 3.51 M/mm3 (4.2-5.4)
[2021-12-20 10:31] LABS: Hemoglobin A1c 5.8 % (3.8-5.6)
[2021-12-20 10:53] LABS: BUN 5 mg/dL (7-18); Creatinine, Serum 0.66 mg/dL (0.55-1.02); Glucose 100 mg/dL (74-106)
[2021-12-20 10:54] LABS: ALB/GLOB Ratio 1.3 RATIO (0.9-2.4); AST(SGOT) 15 U/L (15-37); Alanine Aminotransfer ALT/SGPT 18 U/L (13-56); Albumin, Serum 3.7 g/dL (3.2-5.0); Alkaline Phosphatase 29 U/L (45-117); Anion Gap 4 (5-15); BUN/Creat Ratio 7.6 RATIO (10-20); Calcium,Total 8.8 mg/dL (8.5-10.1); Chloride 105 mmol/L (98-107); Cholesterol 158 mg/dL (200); EST Glomerular Filtration Rate 97 mL/min (>60); Est Glom Filt Rate - Afr Amer 117 mL/min (>60); Globulin 2.9 g/dL (2.2-4.2); High Density Lipoprotein 81 mg/dL; Protein, Total 6.6 g/dL (6.4-8.2); Sodium Level 137 mmol/L (136-145); Thyroid Stim Hormone (TSH) 1.09 uIU/mL (0.358-3.74); Triglycerides 53 mg/dL; Very Low Density Lipoprotein 11 mg/dL (5-40)
== END | disposition home or self-care (01) ==
LOC: CVS 08:56
PROVIDERS: PCP Internal Medicine; Referring Provider Internal Medicine; Visit Provider Internal Medicine
DX: I65.21 Occlusion and stenosis of right carotid artery (principal); E78.49 Other hyperlipidemia; E03.9 Hypothyroidism, unspecified; E55.9 Vitamin D deficiency, unspecified; R73.01 Impaired fasting glucose
CPT/HCPCS: 36415; 80053; 80061; 83036; 83970; 84443; 85025; 93880

== ENCOUNTER → 2022-01-21 | Outpatient (CLI) | payer OTHER, SELFPAY ==
--- NOTE | 2022-01-21 13:00 | MRI_ITS ---
HISTORY: Right ankle ligament tear. Fracture fifth metatarsal 07/16/2021. Pain along lateral side of foot and up into leg. Also pain on plantar surface at level of distal metatarsals. TECHNIQUE: Multiplanar and multisequence MR images of the RIGHT ankle were obtained without contrast. 277 images. COMPARISON: XR 07/07/2021 FINDINGS: BONE: No acute fracture or osteochondral lesion in the ankle. Partially imaged nondisplaced fifth metatarsal shaft fracture with mild bone marrow edema. JOINT: Very mild degenerative change of the ankle. No significant joint effusion. LIGAMENTS: Intact anterior and posterior syndesmotic, anterior and posterior talofibular, and deltoid ligaments. Thickening of the anterior talofibular ligament, likely prior sprain. TENDONS: Achilles tendon within normal limits in signal and morphology. Achilles tendon intact. PLANTAR FASCIA: No acute tear. SINUS TARSI: Preservation of fat in the sinus tarsi. SOFT TISSUES: Mild subcutaneous edema without fluid collection. No significant intramuscular edema. MRI/Lower Ext Joint Only (Routine) IMPRESSION: Thickening of the anterior talofibular ligament from prior sprain in the right ankle. Healing nondisplaced fracture of the fifth metatarsal. Electronically Signed: Araseli Schaefer MD at 15:55 EST ,
--- NOTE | 2022-01-21 13:35 | MRI_ITS ---
HISTORY: Right foot fifth metatarsal fracture, pain along lateral foot and plantar distal metatarsals. TECHNIQUE: Multiplanar and multisequence MR images of the right foot were obtained without contrast. 234 images. COMPARISON: Complex R5 1122 FINDINGS: BONE: Oblique healing nondisplaced fifth metatarsal shaft fracture with mild bone marrow edema. Bone marrow edema throughout the first distal phalanx, incompletely imaged. JOINTS: No significant joint effusion. Mild degenerative change at the first metatarsophalangeal joint. INTERMETATARSAL SPACES: No significant bursitis. LIGAMENTS: Intact Lisfranc ligament. TENDONS: No high-grade tear or significant tenosynovitis of the flexor, extensor, or peroneal tendons. SOFT TISSUES: No subcutaneous fluid collection or significant intramuscular edema. MRI/Lower Ext/No Jt/w/o IMPRESSION: Nondisplaced fracture of the right fifth metatarsal with mild bone marrow edema. Nonspecific bone marrow edema of the first distal phalanx. Electronically Signed: Araseli Schaefer MD at 16:01 EST ,
== END | disposition home or self-care (01) ==
LOC: MRI 12:47
PROVIDERS: PCP Internal Medicine; Referring Provider Podiatrist; Visit Provider Podiatrist
DX: S92.354A Nondisplaced fracture of fifth metatarsal bone, right foot, initial encounter for closed fracture (principal); S93.401A Sprain of unspecified ligament of right ankle, initial encounter
CPT/HCPCS: 73718; 73721

== ENCOUNTER → 2022-02-25 | Outpatient (CLI) | payer OTHER, SELFPAY ==
--- NOTE | 2022-02-25 16:09 | CT_ITS ---
INDICATION: Solitary pulmonary nodule. EXAMINATION: CT CHEST WITHOUT CONTRAST - CT Chest W/O Contrast Injection TECHNIQUE: Helically acquired images were obtained of the chest. A radiation dose optimization technique was used for this scan. IV Contrast dosage and agent: None. COMPARISON: April 30, 2021. FINDINGS: LUNGS, PLEURA AND LARGE AIRWAYS: There is a calcified granuloma in the right lower lobe measuring 0.6 cm (image 67 is 2. Lungs are otherwise clear. No pleural effusion or thickening. No pneumothorax. THYROID: No thyroid lesions. HEART AND PERICARDIUM: Heart size is normal. No pericardial effusion. CORONARY ARTERIES: Coronary artery calcification VESSELS: Thoracic aorta is not dilated. MEDIASTINUM AND MAYURI: Normal mediastinum. Stable right hilar ossified lymph nodes. Esophagus is unremarkable. No hiatal hernia. UPPER ABDOMEN: No slight granulomata are seen in the liver and spleen. BONES: Degenerative changes lumbar spine without lytic or blastic lesions. CT/Chest without Contrast IMPRESSION: Stable old granulomatous disease without acute abnormality. Electronically Signed: Aniket Pena DO at 22:36 EST ,
== END | disposition home or self-care (01) ==
LOC: CT 16:07
PROVIDERS: PCP Internal Medicine; Referring Provider Internal Medicine Pulmonary Disease; Visit Provider Internal Medicine Pulmonary Disease
DX: I25.10 Atherosclerotic heart disease of native coronary artery without angina pectoris (principal); R91.1 Solitary pulmonary nodule; L92.9 Granulomatous disorder of the skin and subcutaneous tissue, unspecified
CPT/HCPCS: 71250

== ENCOUNTER → 2022-03-31 | Outpatient (CLI) | payer OTHER, SELFPAY ==
[2022-03-31 10:03] LABS: Absolute Lymphocyte Count 1.45 X10^3/uL (0.83-4.51); Absolute Neutrophil Count 4.2 X10^3/uL (2.0-7.7); Basophil# 0.05 X10^3/uL; Basophil% 0.8 % (0-1); Eosinophil# 0.03 X10^3/uL; Eosinophils% 0.5 % (0-5); Hematocrit 37.1 % (37-47); Hemoglobin 12.2 g/dL (12.0-15.0); Lymphocyte # 1.45 X10^3/ul (0.83-4.51); Lymphocyte % 22.7 % (19-41); Mean Corp Hgb Conc 32.9 g/dL (32-36); Mean Corpuscular Hgb 33.7 pg (27.0-32.0); Mean Corpuscular Volume 102.5 fL (81-99); Mean Platelet Vol. 9.3 fl (6.2-12.0); Monocyte# 0.63 X10^3/uL; Monocyte% 9.9 % (0-10); NRBC Flagged by Analyzer 0 % (0-5); Neutrophil % 65.8 % (47-70); Platelet Count 281 K/mm3 (150-450); RBC Distribution Width CV 12.1 % (11.6-14.6); RBC Distribution Width SD 46.1 fl (35.1-43.9); Red Blood Count 3.62 M/mm3 (4.2-5.4); White Blood Count 6.4 K/mm3 (4.4-11.0)
[2022-03-31 10:33] LABS: Hemoglobin A1c 5.4 % (3.8-5.6)
[2022-03-31 11:03] LABS: ALB/GLOB Ratio 1.2 RATIO (0.9-2.4); AST(SGOT) 15 U/L (15-37); Alanine Aminotransfer ALT/SGPT 15 U/L (13-56); Albumin, Serum 3.9 g/dL (3.2-5.0); Alkaline Phosphatase 34 U/L (45-117); Anion Gap 6 (5-15); BUN 6 mg/dL (7-18); BUN/Creat Ratio 8.3 RATIO (10-20); Calcium,Total 8.7 mg/dL (8.5-10.1); Chloride 99 mmol/L (98-107); Cholesterol 147 mg/dL (200); Creatinine, Serum 0.72 mg/dL (0.55-1.02); EST Glomerular Filtration Rate 88 mL/min (>60); Est Glom Filt Rate - Afr Amer 106 mL/min (>60); Ferritin 19 ng/mL (8-252); Globulin 3.3 g/dL (2.2-4.2); Glucose 111 mg/dL (74-106); High Density Lipoprotein 89 mg/dL; Iron 109 ug/dL (50-170); Protein, Total 7.2 g/dL (6.4-8.2); Sodium Level 131 mmol/L (136-145); Thyroid Stim Hormone (TSH) 1.01 uIU/mL (0.358-3.74); Triglycerides 42 mg/dL; Very Low Density Lipoprotein 8 mg/dL (5-40)
== END | disposition home or self-care (01) ==
PROVIDERS: PCP Internal Medicine; Referring Provider Internal Medicine; Visit Provider Internal Medicine
DX: D64.9 Anemia, unspecified (principal); E55.9 Vitamin D deficiency, unspecified; E78.49 Other hyperlipidemia; E03.9 Hypothyroidism, unspecified; R73.01 Impaired fasting glucose
CPT/HCPCS: 36415; 80053; 80061; 82306; 82728; 83036; 83540; 84443; 85025

== ENCOUNTER → 2022-04-19 | Outpatient (CLI) | payer OTHER, SELFPAY | END | disposition home or self-care (01) | PROVIDERS: PCP Internal Medicine; Visit Provider Podiatrist | DX: L03.116 Cellulitis of left lower limb (principal) | CPT/HCPCS: 87070; 87075; 87205 ==

== ENCOUNTER → 2022-05-24 | Outpatient (CLI) | payer OTHER, SELFPAY ==
--- NOTE | 2022-05-24 12:38 | MRI_ITS ---
EXAM: MR LEFT UPPER EXTREMITY WITHOUT INTRAVENOUS CONTRAST, SHOULDER CLINICAL INDICATION: pain, rule out RC tear, limited r.o.m, weakness TECHNIQUE: Multiplanar and multisequence MR images of the left shoulder without intravenous contrast. This report was created using [employer] report [employer] technology. COMPARISON: None. FINDINGS: TENDONS: SUPRASPINATUS: Unremarkable. No supraspinatus tendon tear. INFRASPINATUS: Unremarkable. Intact. SUBSCAPULARIS: Unremarkable. Intact. TERES MINOR: Unremarkable. Intact. BICEPS BRACHII, LONG HEAD: Unremarkable. The extra-articular biceps tendon is in the bicipital groove. The intra-articular biceps tendon is normal. LIGAMENTS: GLENOHUMERAL: Unremarkable. Intact. MUSCLES: Unremarkable. No rotator cuff muscle atrophy. FLUID: Unremarkable. No subacromial-subdeltoid space bursal fluid. No significant joint effusion. No bursitis. CARTILAGE: Unremarkable. Articular cartilage intact. GLENOID LABRUM: Unremarkable. Intact, limited evaluation on non-arthrographic exam. BONES/JOINTS: Moderate hypertrophic changes of the acromioclavicular joint with mild mass effect on the underlying soft tissues. Type I acromion with flat undersurface. No subacromial enthesophyte. No os acromiale. No fracture. No concerning marrow signal alterations. OTHER SOFT TISSUES: Unremarkable. No rotator interval edema. MRI/Upper Ext Joint Only(Routine) IMPRESSION: 1. Moderate hypertrophic changes of the acromioclavicular joint with mild mass effect on the underlying soft tissues. 2. No rotator cuff or labral tear. 3. No other significant internal derangement. Electronically Signed: Edmundo Coe MD at 21:53 EDT ,
== END | disposition home or self-care (01) ==
LOC: MRI 12:38
PROVIDERS: PCP Internal Medicine; Referring Provider Orthopaedic Surgery Sports Medicine; Visit Provider Orthopaedic Surgery Sports Medicine
DX: M25.512 Pain in left shoulder (principal)
CPT/HCPCS: 73221

== ENCOUNTER 2022-07-13 08:58 | Day surgery (SDC) | payer OTHER, SELFPAY ==
--- NOTE | 2022-07-07 10:52 | EKG12_ITS ---
Test Reason : PRE OP Blood Pressure : / mmHG Vent. Rate : 077 BPM Atrial Rate : 077 BPM P-R Int : 148 ms QRS Dur : 072 ms QT Int : 400 ms P-R-T Axes : 066 047 057 degrees QTc Int : 452 ms Normal sinus rhythm Normal ECG Confirmed by KILO IRVIN, RODGER ([id number]), associate editor NARDA CHAN ([id number]) on 07/08/2022 8:18:28 AM Referred By: Saad Bell Confirmed By:RODGER BOATENG MD
[2022-07-07 11:22] LABS: Hematocrit 37.2 % (37-47); Hemoglobin 12.5 g/dL (12.0-15.0); Mean Corp Hgb Conc 33.6 g/dL (32-36); Mean Corpuscular Hgb 34.6 pg (27.0-32.0); Mean Platelet Vol. 8.8 fl (6.2-12.0); Platelet Count 272 K/mm3 (150-450); RBC Distribution Width CV 12.4 % (11.6-14.6); RBC Distribution Width SD 46.9 fl (35.1-43.9); Red Blood Count 3.61 M/mm3 (4.2-5.4); White Blood Count 6.6 K/mm3 (4.4-11.0)
[2022-07-07 12:01] LABS: Anion Gap 7 (5-15); BUN 6 mg/dL (7-18); BUN/Creat Ratio 8.4 RATIO (10-20); Chloride 103 mmol/L (98-107); Creatinine, Serum 0.72 mg/dL (0.55-1.02); EST Glomerular Filtration Rate 89 mL/min (>60); Est Glom Filt Rate - Afr Amer 107 mL/min (>60); Glucose 99 mg/dL (74-106); Potassium 4.1 mmol/L (3.5-5.1); Sodium Level 137 mmol/L (136-145); Thyroid Stim Hormone (TSH) 1.75 uIU/mL (0.358-3.74)
[2022-07-13 09:12] VITALS: BP 149/74; PULSE 83; RESP 16; TEMP 36.3; O2SAT 99; BMI 20.9
[2022-07-13] MEDS: Lactated Ringers 1,000 ML 15 ML IV (09:20)
--- NOTE | 2022-07-13 10:06 | PCM.HP.STD ---
HPI - General HPI Narrative TITA LAW, is a 61 F who presents for left shoulder arthroscopy subacromial decompression and distal clavicle excision.?no changes to h and p. OK to proceed. Left shoulder marked. Narcotic counselling done, wishes to go ahead with block despite risks for prior nerve problem / drop arm, and on chronic narcotics but pain clinic sent note to inform that it is ok to go ahead with treating acute post op pain. RAB and narcotic counselling done, will use percocet PRN. Sling after, ROM as tolerated. She understands, ok to proceed and no further questions. MR#: [id number] Acct: [id number] Name:? TITA ALW LA Rep #: [id number] : 1960 ? ? Provider: Dr. Saad Bell MD Age/Sex:? 61/F ? ? Location: [facility] [place] Status: Signed Intake Intake Visit Reasons:?LEFT SHOULDER Chief Complaint: left shoulder/arm Accompanied by: Self Is patient in pain?: Yes Allergies sumatriptan [From Imitrex] Adverse Reaction (Severe, Verified 06/03/22 11:24) tachycardiagabapentin Adverse Reaction (Verified 06/03/22 11:24) Swellingpregabalin [From Lyrica] Adverse Reaction (Verified 06/03/22 11:24) Swelling Medications buspirone 5 mg tablet 15 mg PO TID 12/24/15 [History Confirmed 06/21/22] levothyroxine 150 mcg tablet (Synthroid) 150 mcg PO SUTUTHSA 12/24/15 [History Confirmed 06/21/22] liothyronine 5 mcg tablet 5 mcg PO DAILY 12/24/15 [History Confirmed 06/21/22] prednisone 5 mg tablet 7 mg PO DAILY 03/15/16 [History Confirmed 06/21/22] Lactobacillus rhamnosus GG 10 billion cell-inulin 200 mg capsule ([employer]) 1 ea PO DAILY 03/06/18 [History Confirmed 06/21/22] calcium carb-vit [id number] 333 mg-200 unit-133 mg-5 mg tablet 2 ea PO DAILY 03/06/18 [History Confirmed 06/21/22] cholecalciferol (vitamin D3) 50 mcg (2,000 unit) capsule (Vitamin D3) 2,000 unit PO DAILY 03/06/18 [History Confirmed 06/21/22] cyclosporine 0.05 % eye drops in a dropperette (Restasis) 1 drp DAILY 03/06/18 [History Confirmed 06/21/22] diazepam 5 mg tablet (Valium) 5 mg PO BID 03/06/18 [History Confirmed 06/21/22] rosuvastatin 20 mg tablet (Crestor) 20 mg PO QHS 03/06/18 [History Confirmed 06/21/22] tizanidine 4 mg capsule (Zanaflex) 4 mg PO QHS 03/06/18 [History Confirmed 06/21/22] tizanidine 4 mg tablet 2 mg PO BID 03/06/18 [History Confirmed 06/21/22] topiramate 50 mg tablet (Topamax) 50 mg PO DAILY 03/06/18 [History Confirmed 06/21/22] vilazodone 20 mg tablet (Viibryd) 20 mg PO DAILY 03/06/18 [History Confirmed 06/21/22] hydrocodone-acetaminophen 5-325mg 5mg-325mg 5 - 325 tab PO TID PRN Pain 03/13/21 [History Confirmed 06/21/22] cyclobenzaprine 10 mg tablet 10 mg PO TID PRN muscle spasm #6 tabs 08/06/21 [Rx Confirmed 06/21/22] B-complex with vitamin C 1 tab PO DAILY 03/15/22 [History Confirmed 06/21/22] denosumab 60 mg/mL subcutaneous syringe (Prolia) 60 mg subcut [id number] 03/15/22 [History Confirmed 06/21/22] robert (Zingiber officinalis) 250 mg capsule 250 mg PO DAILY 03/15/22 [History Confirmed 06/21/22] hydroxychloroquine 200 mg tablet tablet PO 03/15/22 [History Confirmed 06/21/22] modafinil 100 mg tablet 100 mg PO 03/15/22 [History Confirmed 06/21/22] morphine 15 mg tablet,extended release tablet PO 03/15/22 [History Confirmed 06/21/22] onabotulinumtoxinA 100 unit solution for injection (Botox) 5 unit intradermal 03/15/22 [History Confirmed 06/21/22] turmeric 400 mg capsule mg PO 03/15/22 [History Confirmed 06/21/22] ubrogepant 100 mg tablet (Ubrelvy) tablet PO 03/15/22 [History Confirmed 06/21/22] cetirizine 10 mg capsule (Zyrtec) 10 mg PO DAILY 06/21/22 [History Confirmed 06/21/22] triamcinolone acetonide 55 mcg nasal spray aerosol (Nasacort) 2 spray intranasal DAILY 06/21/22 [History Confirmed 06/21/22] PFSH Medical History? Adrenal insufficiency Anxiety Arthrosis of left acromioclavicular joint Asthma Cerebrovascular disease Degeneration of spine Fusion of lumbar spine Hypersomnolence Hypothyroid Left shoulder pain Migraines Raynaud disease Vagal reaction Surgical History? Hx of appendectomy Hx of fusion of cervical spine Hx of hysterectomy Social History? Smoking Status:? Current every day smoker tobacco type: cigarettes HPI LEFT SHOULDER Details: Parts of this documentation were recorded by a scribe, this documentation accurately reflects the service provided and the decisions made by me, Dr. Saad Bell MD 06/21/22 0821. TITA LAW is a 61 year old F here today for follow-up to discuss left shoulder surgery for impingement syndrome and AC joint arthrosis.? Still having pain in the left shoulder especially with the reaching to the side of the body or initiating many things that she has to do on the left side.? 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 Ortho Exam General General: Yes no acute distress Neurologic: Yes alert and Yes oriented x3 Psychologic: Yes reasonable and appropriate Left Shoulder Skin/Wound: Yes CDI Testing: Yes TTP AC Joint, Yes empty can and Yes cross arm SHOULDER: Assisted forward elevation to 160 degrees.? Painful arc sign. Coding Level of Care Code Off vis,est,level 3 Diagnoses Arthrosis of left acromioclavicular joint? M19.012 Impingement of left shoulder? M25.812 Left shoulder pain? M25.512 Assessment and Plan Assessment and Plan (1) Arthrosis of left acromioclavicular joint: ?Status:?Acute ?Plan: 61-year-old female with left shoulder pain impingement syndrome from a downsloping acromion as well as pain at the AC joint with MRI evidence of arthrosis no rotator cuff tendon tear surgical option at this point would be left shoulder arthroscopy subacromial decompression and distal clavicle excision.? Discussed pros cons risk benefits of that as well as postoperative recovery 1 to 2 weeks in a sling no activity restrictions after surgery likely 6 weeks before returning to normal activities.? She understands wishes to go ahead with surgery signed the consent form as well as possible need for blood products.? She does take garlic I asked her to stop that week before the surgery but no anticoagulant use. Pros and cons risks and benefits were discussed with the patient including but not limited to infection, pain, stiffness, bleeding, damage to surrounding structures, neurovascular injury, recurrence or retear, failure or wear of hardware or fixation, instability, fracture, deep vein thrombosis and pulmonary embolism, anesthetic risks, , patient dissatisfaction, need for further surgery and other risks.? Patient understood and wished to proceed with surgery, and signed the informed consent documentation. [facility] Medical History Adrenal insufficiency Alcohol use Anxiety Arthrosis of left acromioclavicular joint Asthma Back pain Cancer Cardiology follow-up encounter Fracture Fusion of lumbar spine Gastric reflux History of diverticulitis History of echocardiogram History of edema History of pain when walking History of steroid therapy History of stress test Hx of autoimmune disorder Hypersomnolence Hypoglycemia Hypothyroid Injury of back Injury of head and neck Left shoulder pain Leg cramps Low iron Lupus Migraines Raynaud disease Restless legs Vagal reaction Wears glasses Home Medications buspirone 5 mg tablet 15 mg PO TID 12/24/15 [History Last Taken 07/13/22] levothyroxine 150 mcg tablet (Synthroid) 150 mcg PO MOTUWETHFRSA 12/24/15 [History Last Taken 07/13/22] liothyronine 5 mcg tablet 5 mcg PO DAILY 12/24/15 [History Last Taken 03/30/18] prednisone 5 mg tablet 5 - 7 mg PO DAILY 03/15/16 [History Last Taken 07/13/22] Lactobacillus rhamnosus GG 10 billion cell-inulin 200 mg capsule ([facility]) 1 ea PO DAILY 03/06/18 [History Last Taken Unknown] calcium carb-vit [id number] 333 mg-200 unit-133 mg-5 mg tablet 2 ea PO DAILY 03/06/18 [History Last Taken Unknown] cholecalciferol (vitamin D3) 50 mcg (2,000 unit) capsule (Vitamin D3) 2,000 unit PO SUTUTHSA 03/06/18 [History Last Taken Unknown] cyclosporine 0.05 % eye drops in a dropperette (Restasis) 1 drp DAILY 03/06/18 [History Last Taken Unknown] diazepam 5 mg tablet (Valium) 5 mg PO 1500,2200 03/06/18 [History Last Taken 03/30/18] rosuvastatin 20 mg tablet (Crestor) 20 mg PO QHS 03/06/18 [History Last Taken Unknown] tizanidine 4 mg capsule (Zanaflex) 4 mg PO QHS 03/06/18 [History Last Taken Unknown] tizanidine 4 mg tablet 2 mg PO BID PRN PRN Muscle Pain 03/06/18 [History Last Taken 03/30/18] topiramate 50 mg tablet (Topamax) 100 mg PO QHS 03/06/18 [History Last Taken 03/30/18] vilazodone 20 mg tablet (Viibryd) 20 mg PO QHS 03/06/18 [History Last Taken Unknown] hydrocodone-acetaminophen 5-325mg 5mg-325mg 5 - 325 tab PO DAILY PRN PRN Pain 03/13/21 [History Last Taken Unknown] B-complex with vitamin C 1 tab PO DAILY 03/15/22 [History Last Taken Unknown] denosumab 60 mg/mL subcutaneous syringe (Prolia) 60 mg subcut [id number] 03/15/22 [History Last Taken Unknown] hydroxychloroquine 200 mg tablet 200 mg PO QODAY 03/15/22 [History Last Taken Unknown] modafinil 100 mg tablet 100 mg PO BID 03/15/22 [History Last Taken Unknown] morphine 15 mg tablet,extended release 15 tablet PO BID 03/15/22 [History Last Taken 07/13/22] onabotulinumtoxinA 100 unit solution for injection (Botox) 5 unit intradermal .Q3MO 03/15/22 [History Last Taken Unknown] turmeric 400 mg capsule 400 mg PO DAILY 03/15/22 [History Last Taken Unknown] ubrogepant 100 mg tablet (Ubrelvy) 100 tablet PO PRN PRN MIGRAINES 03/15/22 [History Last Taken Unknown] cetirizine 10 mg capsule (Zyrtec) 10 mg PO PRN PRN ALLERGIES 06/21/22 [History Last Taken Unknown] triamcinolone acetonide 55 mcg nasal spray aerosol (Nasacort) 2 spray intranasal DAILY 06/21/22 [History Last Taken Unknown] cholecalciferol (vitamin D3) 100 mcg (4,000 unit) capsule 100 mcg PO MOWEFR 07/06/22 [History Last Taken Unknown] ferrous sulfate 142 mg (45 mg iron) tablet,extended release (Slow Fe) 142 mg PO DAILY 07/06/22 [History Last Taken Unknown] hydroxychloroquine 300 mg tablet 300 mg PO QODAY 07/06/22 [History Last Taken Unknown] hydroxyzine HCl 25 mg tablet 25 mg PO PRN PRN ALLERGIES 07/06/22 [History Last Taken Unknown] magnesium citrate 100 mg tablet 100 mg PO QHS 07/06/22 [History Last Taken Unknown] Allergy/AdvReac Type Severity Reaction Status Date / Time vaccine adjuvant system, Allergy HIGH Verified 07/13/22 09:12 [id number] liposomal FEVER,SEVERE [From Shingrix (PF)] ILLNESS varicella-zoster virus Allergy HIGH Verified 07/13/22 09:12 glycoprotein E, recombinant FEVER,SEVERE [From Shingrix (PF)] ILLNESS sumatriptan [From Imitrex] AdvReac Severe tachycardia Verified 07/13/22 09:12 gabapentin AdvReac Swelling Verified 07/13/22 09:12 pregabalin [From Lyrica] AdvReac Swelling Verified 07/13/22 09:12 Surgical History History of kyphoplasty Hx of appendectomy Hx of dilation and curettage Hx of foot surgery Hx of fusion of cervical spine Hx of hysterectomy Hx of laparoscopy Hx of LASIK Social History Smoking Status: Current every day smoker tobacco type: cigarettes Vital Signs Vital Signs Vital Signs: 07/13/22 09:12 07/13/22 09:12 Temperature 97.4 F L Temperature Source Temporal Pulse Rate 83 Respiratory Rate 16 Respiratory Pattern Normal Blood Pressure 149/74 H Blood Pressure Mean 99 Blood Pressure Source Monitor Blood Pressure Position Semi-Fowlers Blood Pressure Location Left Arm Pulse Ox 99 Oxygen Delivery Method Room Air Weight Weight: 130 lb 1.164 oz Body Mass Index (BMI) 20.9 Results Lab / Micro Data Result Diagrams: 07/07/22 11:11 07/07/22 11:11
[2022-07-13] MEDS: Cefazolin 2 GM in 0.9% Normal Saline 100 ML IV (10:31)
[2022-07-13] MEDS: Epinephrine (1 mg/ml) 1 MG/ML VIAL (10:44)
--- NOTE | 2022-07-13 11:25 | EX.PCM.DISCH ---
Discharge Instructions Diet Discharge Diet: No restrictions Activity Discharge Activity: No Restrictions Ice area for (Minutes): 10 Lifting Restrictions: ROM as tolerated, remove sling four times a day pendulums Dressing / Incision Call your doctor if your incision/area has: Continuous Slow Oozing, Sudden Increased Bleeding, Increased Pain/ Swelling, Increased Redness, Foul Smelling Discharge and Swelling at the incision site Remove Dressing in: leave in place till F/U Follow Up Care Please Follow Up With: Saad Bell MD When: 2 days Test Results: Test results from this visit will be discussed in further detail at your follow-up appointment, if applicable. Discharge Plan Admission Attending Provider: Saad Bell Primary Care Provider: Martha Shah Discharge Orders/Prescriptions Prescriptions: New oxycodone-acetaminophen [Endocet] 5-325 mg tablet 1 tab PO Q4H MDD 6 PRN (Reason: pain) 5 Days Qty: 30 0RF No Action modafinil 100 mg tablet 100 mg PO BID morphine 15 mg tablet extended release 15 tablet PO BID hydroxychloroquine 200 mg tablet 200 mg PO QODAY turmeric 400 mg capsule 400 mg PO DAILY B-complex with vitamin C Tablet 1 tab PO DAILY Botox 100 unit recon soln 5 unit intradermal .Q3MO Prolia 60 mg/mL syringe 60 mg subcut [id number] Ubrelvy 100 mg tablet 100 tablet PO PRN PRN (Reason: MIGRAINES) Zyrtec 10 mg capsule 10 mg PO PRN PRN (Reason: ALLERGIES) triamcinolone acetonide [Nasacort] 55 mcg aerosol,spray 2 spray intranasal DAILY Rx Instructions: administer into each nostril buspirone 5 MG tablet 15 mg PO TID Label Comments: ANXIETY liothyronine 5 MCG tablet 5 mcg PO DAILY Label Comments: THYROID levothyroxine [Synthroid] 150 MCG tablet 150 mcg PO MOTUWETHFRSA Label Comments: THYROID prednisone 5 MG tablet 5 - 7 mg PO DAILY Rx Instructions: 10MG DAY BEFORE,10MG DAY OF SURGERY,10MG DAY AFTER SURGERY tizanidine 4 MG tablet 2 mg PO BID PRN PRN (Reason: Muscle Pain) diazepam [Valium] 5 MG tablet 5 mg PO 1500,2200 cyclosporine [Restasis] 1 DROP dropperette 1 drp Each Eye DAILY rosuvastatin [Crestor] 20 MG tablet 20 mg PO QHS topiramate [Topamax] 50 MG tablet 100 mg PO QHS tizanidine [Zanaflex] 4 MG capsule 4 mg PO QHS calcium carb-D3-mag [id number] 1 EACH tablet 2 ea PO DAILY cholecalciferol (vitamin D3) [Vitamin D3] 2,000 UNIT capsule 2,000 unit PO SUTUTHSA vilazodone [Viibryd] 20 MG tablet 20 mg PO QHS [facility] 1 EACH capsule 1 ea PO DAILY hydrocodone-acetaminophen 5-325 mg tablet 5 - 325 tab PO DAILY PRN PRN (Reason: Pain) Label Comments: TAKE 1 TABLET BY MOUTH UP TO THREE TIMES DAILY NEEDED FOR PAIN hydroxyzine HCl 25 mg Tablet 25 mg PO PRN PRN (Reason: ALLERGIES) Slow Fe 142 mg (45 mg iron) Tablet Extended Release 142 mg PO DAILY Vitamin D3 100 mcg (4,000 unit) Capsule 100 mcg PO MOWEFR magnesium citrate 100 mg Tablet 100 mg PO QHS hydroxychloroquine 300 mg Tablet 300 mg PO QODAY Referrals / Follow Up: Martha Shah DO [Primary Care Provider] - Saad Bell MD [Med Staff - Active Staff] - Disposition Disposition (needs filled in before D/C Order can be placed): Home, Self Care
--- NOTE | 2022-07-13 11:30 | PCM.OPRPT ---
Problems Associated Problem List Diagnoses (1) Impingement of left shoulder: (2) Arthrosis of left acromioclavicular joint: Report of Operation Date of Procedure: 07/13/22 Pre-Operative Diagnosis: Left shoulder impingement and AC joint arthrosis Post-Operative Diagnosis: Same Surgery/Procedure Performed:: Left shoulder arthroscopy subacromial decompression distal clavicle excision Surgeon: Saad Bell Type of Anesthesia: Block,Regional and General Anesthesiologist: Padilla Bello Estimated Blood Loss (mL): 40 Description of Procedure: Patient brought to the operating room theater. Placed supine on the table. General anesthesia induced. 2 g IV Ancef administered prior to the start of procedure. Patient placed left side up lateral decubitus beanbag positioner. Axillary roll used. SCDs on legs. All bony prominences padded. Upper extremity prepped and draped in usual sterile fashion with correction based prep solution allowing over 3 minutes drying time prior to draping. 10 pounds in line traction with the arm in 40 degrees of abduction was used preoperative timeout performed to confirm the site patient and surgery. Began by making a standard posterior arthroscopy portal. Then inserted the arthroscope into the intra-articular portion of the shoulder. Made a anterior portal using inside-out spinal needle localization through the rotator interval. Examined the full intra-articular extent of the shoulder. Cartilage on the glenoid slight fraying at the anterior 3:00 area gently debrided. No other cartilage problems or defects. Biceps root - Stable some slight fraying superior aspect of the labrum gently debrided. Subscapularis as well as middle glenohumeral ligament appeared normal as did the undersurface of the rotator cuff tendon. Slight amount of a longitudinal synovitis of the biceps tendon. Axillary recess entered no loose bodies. No labral tears elsewhere. Scope withdrawn inserted into the subacromial space. Created an accessory lateral portal. Complete bursectomy was performed for a mild to moderate amount of inflammatory bursitis. Again no rotator cuff tears were noted on the superior or inferior surface. Downsloping of the acromion was noted. Subacromial decompression performed to flat margins for a thickness of about 5 mm. I then identified the distal end of the clavicle. Performed a distal clavicle excision through the anterior portal for a width of approximately 3 mm. Inserted the arthroscope anteriorly into the AC joint to confirm complete resection. Case was terminated pictures taken and saved onto the system throughout the case. Shoulder thoroughly irrigated. Subcutaneous tissue portal sites closed with 3-0 Monocryl. Skin cleaned with wet and dry dressing followed by application of Adaptic 4 x 4 gauze ABD pads and tape with a sling for the upper extremity. Patient woken up from the general anesthetic transferred off the operating table and taken to postanesthetic care unit in stable condition. All sponge needle instrument counts were correct no complications plan for the patient discharged home per day surgery criteria when they are comfortable start gentle pendulum exercises follow-up in the office in 2 days time. Complications none Admit VTE Documentation VTE Present on Admission: No VTE Mechan Device Prophylaxis: SCD's Reason prophylaxis not ordered:: Treatment Not Indicated Procedures Musculoskeletal [id number]: Other Procedure See Report
[2022-07-13 11:35] VITALS: BP 123/69; BP 149/74; PULSE 92; RESP 16; TEMP 36.2; O2SAT 93
[2022-07-13 11:45] VITALS: BP 120/93; BP 149/74; PULSE 91; RESP 16; O2SAT 94
[2022-07-13 11:58] VITALS: BP 129/69; BP 149/74; PULSE 83; RESP 16; TEMP 36.5; O2SAT 94
[2022-07-13 13:09] VITALS: BP 116/65; BP 149/74; PULSE 91; RESP 16; TEMP 36.8; O2SAT 98
== END 2022-07-13 13:41 | disposition home or self-care (01) ==
LOC: SDC 08:59 → AC 09:00
PROVIDERS: Anesthesiology; PCP Internal Medicine; Referring Provider Orthopaedic Surgery Sports Medicine; Visit Provider Orthopaedic Surgery Sports Medicine
PROC: (CPT 29805; principal; 2022-07-13 09:50)
DX: M75.42 Impingement syndrome of left shoulder (principal); M19.012 Primary osteoarthritis, left shoulder; F17.210 Nicotine dependence, cigarettes, uncomplicated; G43.909 Migraine, unspecified, not intractable, without status migrainosus; E03.9 Hypothyroidism, unspecified; F41.9 Anxiety disorder, unspecified; E61.1 Iron deficiency; Z79.899 Other long term (current) drug therapy; Z86.16 Personal history of COVID-19
CPT/HCPCS: 29822; 29824; 64415; 01630; 36415; 80048; 84443; 85027; 93005; J7120; J2405

== ENCOUNTER → 2022-08-01 | Outpatient (CLI) | payer OTHER, SELFPAY ==
[2022-08-01 17:52] LABS: Absolute Lymphocyte Count 1.69 X10^3/uL (0.83-4.51); Absolute Neutrophil Count 4.2 X10^3/uL (2.0-7.7); Basophil# 0.03 X10^3/uL; Basophil% 0.5 % (0-1); Eosinophil# 0.01 X10^3/uL; Eosinophils% 0.2 % (0-5); Hemoglobin 11.9 g/dL (12.0-15.0); Lymphocyte # 1.69 X10^3/ul (0.83-4.51); Lymphocyte % 25.7 % (19-41); Mean Corp Hgb Conc 33.1 g/dL (32-36); Mean Corpuscular Hgb 33.7 pg (27.0-32.0); Mean Platelet Vol. 9.3 fl (6.2-12.0); Monocyte# 0.66 X10^3/uL; NRBC Flagged by Analyzer 0 % (0-5); Neutrophil # 4.16 X10^3/uL (2.7-7.7); Neutrophil % 63.3 % (47-70); Platelet Count 294 K/mm3 (150-450); RBC Distribution Width CV 12.4 % (11.6-14.6); RBC Distribution Width SD 45.9 fl (35.1-43.9); Red Blood Count 3.53 M/mm3 (4.2-5.4); White Blood Count 6.6 K/mm3 (4.4-11.0)
[2022-08-01 18:11] LABS: ALB/GLOB Ratio 1.2 RATIO (0.9-2.4); AST(SGOT) 12 U/L (15-37); Alanine Aminotransfer ALT/SGPT 25 U/L (13-56); Albumin, Serum 3.7 g/dL (3.2-5.0); Alkaline Phosphatase 45 U/L (45-117); Anion Gap 6 (5-15); BUN 5 mg/dL (7-18); BUN/Creat Ratio 7.5 RATIO (10-20); CRP < 2.90 mg/L (0.0-3.0); Calcium,Total 8.7 mg/dL (8.5-10.1); Chloride 97 mmol/L (98-107); Creatinine, Serum 0.67 mg/dL (0.55-1.02); EST Glomerular Filtration Rate 96 mL/min (>60); Est Glom Filt Rate - Afr Amer 116 mL/min (>60); Globulin 3.2 g/dL (2.2-4.2); Glucose 91 mg/dL (74-106); Potassium 4.2 mmol/L (3.5-5.1); Protein, Total 6.9 g/dL (6.4-8.2); Sodium Level 129 mmol/L (136-145)
[2022-08-01 18:13] LABS: Erythrocyte Sedimentation Rate 3 mm/hr (0-30)
== END | disposition home or self-care (01) ==
LOC: MTLAB 16:11
PROVIDERS: PCP Internal Medicine; Referring Provider Internal Medicine; Visit Provider Internal Medicine
DX: M25.50 Pain in unspecified joint (principal)
CPT/HCPCS: 36415; 80053; 85025; 85652; 86140

== ENCOUNTER → 2022-08-05 | Outpatient (CLI) | payer OTHER, SELFPAY ==
--- NOTE | 2022-08-05 09:22 | BI_ITS ---
MAMMOGRAPHY - UNILATERAL DIAGNOSTIC: LEFT BREAST REASON FOR EXAM: Female, 62 years old. Pain and tightness in the upper outer quadrant of the left breast. PERTINENT HISTORY: Aunt with breast cancer. Prior left stereotactic breast biopsy. TECHNIQUE: Digital unilateral breast katia (3D mammographic acquisition) in the CC and MLO projections. 2-D mediolateral oblique (MLO) and craniocaudad (CC) views of both breasts were obtained. CAD: Full Field Digital Mammography with Computer Added Detection was performed. COMPARISON: Comparison is made with prior examination dated November 30, 2021. FINDINGS: Breast Composition: There are scattered areas of fibroglandular density. There are no dominant masses or suspicious calcifications. A tissue clip marker is once again seen in the axillary region of the left breast. No other significant abnormalities are identified. There has been no significant change since the prior study. BI/DIAG MAMM W/CAD, UNILAT IMPRESSION: Stable unilateral diagnostic mammogram. With the patient''s history of pain and tightness in the upper outer quadrant of the left breast, correlation with ultrasound is recommended. ASSESSMENT CATEGORY: BIRADS Category 0: Incomplete. Need additional imaging evaluation. A letter regarding these results will be sent to the patient by the facility within 30 days. Approximately 10% of breast cancers are not detected by mammography. A normal mammogram should not delay biopsy of a clinically suspicious abnormality. Electronically Signed: Barrera Nguyen MD at 10:43 EDT ,
--- NOTE | 2022-08-05 09:22 | US_ITS ---
STUDY: THYROID ULTRASOUND REASON FOR EXAM: Female, 62 years old patient with thyroid nodule TECHNIQUE: Ultrasound evaluation of the thyroid was performed with real-time and static mancia-scale imaging. COMPARISON: Thyroid ultrasound dated September 17, 2019. FINDINGS: RIGHT LOBE: The right lobe of the thyroid gland measures 0.9 x 0.8 x 2.9 cm. There is a heterogeneous echotexture. There are no demonstrated solid, cystic or complex lesions. LEFT LOBE: The left lobe of the thyroid gland measures 1 x 0.7 x 2.4 cm. There is a heterogeneous echotexture. There are no demonstrated solid, cystic or complex lesions. ISTHMUS: The isthmus measures 1.8 mm. The regional lymph nodes are normal. US/Thyroid IMPRESSION: Heterogeneous echogenicity of the thyroid without evidence of nodules. This appears similar to previous ultrasound. Electronically Signed: Madeleine Villar MD at 3:21 EDT ,
--- NOTE | 2022-08-05 09:49 | US_ITS ---
STUDY: ULTRASOUND BREAST - LEFT REASON FOR EXAM: Female, 62 years old. Pain and tightness in the upper outer quadrant of the left breast. TECHNIQUE: Axial and longitudinal images of the LEFT breast were performed with a high resolution ultrasound transducer. # OF IMAGES: 43 COMPARISON: Comparison is made with prior mammogram dated August 05, 2022 and prior ultrasound of the left breast dated November 02, 2012. FINDINGS: LEFT Breast: The upper-outer quadrant of the left breast was examined with ultrasound. No mass lesion is seen. Incidental note is made of 2 small benign appearing left axillary lymph nodes. US/Breast Limited Unilateral IMPRESSION: The upper lateral aspect of the left breast was examined with ultrasound. No mass is seen. Small benign-appearing left axillary lymph nodes. ASSESSMENT CATEGORY: BIRADS Category 2: Benign. A letter regarding these results will be sent to the patient by the facility within 30 days. Electronically Signed: Barrera Nguyen MD at 9:23 EDT ,
== END | disposition home or self-care (01) ==
LOC: OPBI 09:19
PROVIDERS: PCP Internal Medicine; Referring Provider Internal Medicine; Visit Provider Internal Medicine
DX: N63.21 Unspecified lump in the left breast, upper outer quadrant (principal); E04.1 Nontoxic single thyroid nodule
CPT/HCPCS: 76536; 76642; 77061; 77065; G0279

== ENCOUNTER → 2022-11-24 | Outpatient (CLI) | payer OTHER, SELFPAY ==
--- NOTE | 2022-11-24 13:04 | ECHOD_ITS ---
Reason For Study: Edema Procedure This was a 2D Doppler, Color Flow transthoracic echocardiogram. Exam performed in department. Left Ventricle Normal size and thickness. The left ventricular ejection fraction is 65 %. Normal diastology for age. Right Ventricle Normal right ventricle. Atria The left and right atria are normal. Mitral Valve The mitral valve is structurally normal. No prolapse or stenosis seen. Tricuspid Valve Mild tricuspid valve insufficiency. Right ventricular systolic pressure estimated to be 35 mmHg. Aortic Valve Trisinus/trileaflet aortic valve. Pulmonic Valve The pulmonic valve is not well visualized. Great Vessels Normal sized aortic root. Pericardium/Pleural Trivial pericardial effusion. MMode/2D Measurements & Calculations LVIDd: 3.6 cm IVSd: 1.1 cm Ao root diam: 3.6 cm LVIDs: 2.4 cm LVPWd: 1.1 cm LA dimension: 2.9 cm RVDd: 3.4 cm FS: 33.8 % LAV(MOD-bp): 32.9 ml LVAd ap4: 19.1 cm2 SV(MOD-sp4): 29.7 ml LAV(MOD-bp) Indexed: 19.6 ml/m2 LVLd ap4: 6.6 cm LAV(MOD-sp2): 37.3 ml EDV(MOD-sp4): 46.4 ml LAV(MOD-sp4): 28.8 ml EDV(sp4-el): 46.7 ml LVAs ap4: 9.8 cm2 LVLs ap4: 4.9 cm ESV(MOD-sp4): 16.7 ml ESV(sp4-el): 16.8 ml EF(MOD-sp4): 63.9 % EF(sp4-el): 64.1 % SV(sp4-el): 30.0 ml LA A4 area: 12.4 cm2 TAPSE: 1.3 cm Time Measurements MV dec time: 0.23 sec Doppler Measurements & Calculations MV E max flo: 77.6 cm/sec Lat Peak E' Flo: 9.5 cm/sec Med Peak E' Flo: 9.5 cm/sec MV A max flo: 96.8 cm/sec E/E' lat: 8.1 E/E' med: 8.1 MV E/A: 0.80 MV V2 max: 103.3 cm/sec MV P1/2t max flo: 92.6 cm/sec Ao V2 max: 102.6 cm/sec MV max P.3 mmHg MV P1/2t: 81.1 msec Ao max P.2 mmHg MV V2 mean: 59.0 cm/sec Ao V2 mean: 74.8 cm/sec MV mean P.6 mmHg MV dec slope: 334.3 cm/sec2 Ao mean P.5 mmHg MV V2 VTI: 25.2 cm MVA(P1/2t): 2.7 cm2 Ao V2 VTI: 25.9 cm AV (velocity ratio): 0.81 LV V1 max: 90.0 cm/sec PA V2 max: 80.6 cm/sec TR max flo: 220.8 cm/sec LV V1 max P.2 mmHg TR max P.5 mmHg LV V1 mean P.6 mmHg LV V1 mean: 59.5 cm/sec LV V1 VTI: 21.0 cm ECHO/Echo Complete Interpretation Summary The left ventricular ejection fraction is 65 %. Mild tricuspid valve insufficiency. Trivial pericardial effusion. Ordering Physician: Martha Shah Referring Physician: Martha Shah Performed By: Nicolas Christian RCS
== END | disposition home or self-care (01) ==
LOC: CVS 12:59
PROVIDERS: PCP Internal Medicine; Referring Provider Internal Medicine; Visit Provider Internal Medicine
DX: R60.9 Edema, unspecified (principal)
CPT/HCPCS: 93306

== ENCOUNTER → 2022-11-28 | Outpatient (CLI) | payer OTHER, SELFPAY ==
[2022-11-28 13:50] LABS: Microalbumin,Random Urine 9.6 mg/L (NO RANGE EST.); Microalbumin:Creatinine Ratio 8.3 mg/g CRE (<30 mg/g CRE)
[2022-11-28 13:52] LABS: Vitamin D,25 Hydroxy 41.4 ng/mL
[2022-11-28 13:58] LABS: Hemoglobin A1c 5.3 % (3.8-5.6)
[2022-11-28 14:02] LABS: ALB/GLOB Ratio 1.3 RATIO (0.9-2.4); AST(SGOT) 21 U/L (15-37); Alanine Aminotransfer ALT/SGPT 29 U/L (13-56); Albumin, Serum 3.9 g/dL (3.2-5.0); Alkaline Phosphatase 44 U/L (45-117); Anion Gap 5 (5-15); BUN 7 mg/dL (7-18); BUN/Creat Ratio 9.2 RATIO (10-20); Calcium,Total 8.6 mg/dL (8.5-10.1); Chloride 101 mmol/L (98-107); Cholesterol 177 mg/dL (200); Creatinine, Serum 0.76 mg/dL (0.55-1.02); EST Glomerular Filtration Rate 83 mL/min (>60); Est Glom Filt Rate - Afr Amer 100 mL/min (>60); Globulin 3.1 g/dL (2.2-4.2); Glucose 96 mg/dL (74-106); High Density Lipoprotein 100 mg/dL; Potassium 3.8 mmol/L (3.5-5.1); Sodium Level 132 mmol/L (136-145); Thyroid Stim Hormone (TSH) 1.11 uIU/mL (0.358-3.74); Triglycerides 53 mg/dL; Very Low Density Lipoprotein 11 mg/dL (5-40)
== END | disposition home or self-care (01) ==
LOC: LAB 12:48
PROVIDERS: PCP Internal Medicine; Visit Provider Internal Medicine
DX: E03.9 Hypothyroidism, unspecified (principal); E78.49 Other hyperlipidemia; E55.9 Vitamin D deficiency, unspecified; R73.01 Impaired fasting glucose
CPT/HCPCS: 36415; 80053; 80061; 82043; 82306; 82570; 83036; 84443

== ENCOUNTER → 2023-01-09 | Outpatient (CLI) | payer OTHER, SELFPAY ==
--- NOTE | 2023-01-09 12:31 | BI_ITS ---
MAMMOGRAPHY - BILATERAL SCREENING REASON FOR EXAM: Female, 62 years old. Routine annual screening examination. PERTINENT HISTORY: Mother with breast cancer. TECHNIQUE: Digital bilateral breast shereen (3D mammographic acquisition) in the CC and MLO projections. 2-D mediolateral oblique (MLO) and craniocaudad (CC) views of both breasts were obtained. CAD: Full Field Digital Mammography with Computer Added Detection was performed. COMPARISON: Comparison is made with prior study dated November 30, 2021 and August 05, 2022. FINDINGS: Breast Composition: There are scattered areas of fibroglandular density. There are no dominant masses or suspicious calcifications. A tissue clip marker is once again seen in the axillary region breast. No other significant abnormalities are identified. There has been no significant change since the prior study. BI/SCRN MAMM (CAD)W/SHEREEN BILAT IMPRESSION: Stable bilateral screening mammogram. Yearly follow-up mammogram recommended. (A) ASSESSMENT CATEGORY: BIRADS Category 2: Benign. A letter regarding these results will be sent to the patient by the facility within 30 days. Approximately 10% of breast cancers are not detected by mammography. A normal mammogram should not delay biopsy of a clinically suspicious abnormality. [id number] Electronically Signed: Barrera Nguyen MD at 13:57 EST ,
== END | disposition home or self-care (01) ==
LOC: OPBI 12:30
PROVIDERS: PCP Internal Medicine; Referring Provider Internal Medicine; Visit Provider Internal Medicine
DX: Z12.31 Encounter for screening mammogram for malignant neoplasm of breast (principal)
CPT/HCPCS: 77063; 77067

== ENCOUNTER → 2023-03-20 | Outpatient (CLI) | payer OTHER, SELFPAY ==
--- NOTE | 2023-03-20 12:37 | RAD_ITS ---
INDICATION: night sweats EXAMINATION/TECHNIQUE: X-RAY - XR Chest 2 Views COMPARISON: Prior study dated: 04/23/2020 FINDINGS: LINES/DEVICES: None. LUNGS: No consolidation, edema or effusion. No pneumothorax. MEDIASTINUM AND CARDIOVASCULAR STRUCTURES: Cardiac silhouette not enlarged. Central airways and mediastinal contour are unremarkable. Calcified right hilar nodes. BONES AND SOFT TISSUES: Anterior fusion of lower cervical spine. Vertebroplasty of mid thoracic vertebra unchanged. RAD/Chest PA and Lateral IMPRESSION: No radiographic evidence of acute cardiopulmonary disease. Electronically Signed: Jam Thomas MD at 13:33 EST ,
== END | disposition home or self-care (01) ==
PROVIDERS: PCP Internal Medicine; Referring Provider Internal Medicine; Visit Provider Internal Medicine
DX: R61 Generalized hyperhidrosis (principal)
CPT/HCPCS: 71046

== ENCOUNTER → 2023-03-30 | Outpatient (CLI) | payer OTHER, SELFPAY ==
[2023-03-30 12:18] LABS: Absolute Lymphocyte Count 1.11 X10^3/uL (0.83-4.51); Absolute Neutrophil Count 8.4 X10^3/uL (2.0-7.7); Basophil# 0.06 X10^3/uL; Basophil% 0.6 % (0-1); Eosinophil# 0.02 X10^3/uL; Eosinophils% 0.2 % (0-5); Hematocrit 38.4 % (37-47); Hemoglobin 12.5 g/dL (12.0-15.0); Lymphocyte # 1.11 X10^3/ul (0.83-4.51); Lymphocyte % 10.7 % (19-41); Mean Corp Hgb Conc 32.6 g/dL (32-36); Mean Corpuscular Volume 101.3 fL (81-99); Mean Platelet Vol. 9.6 fl (6.2-12.0); Monocyte# 0.74 X10^3/uL; Monocyte% 7.1 % (0-10); NRBC Flagged by Analyzer 0 % (0-5); Neutrophil # 8.39 X10^3/uL (2.7-7.7); Platelet Count 309 K/mm3 (150-450); RBC Distribution Width CV 12.6 % (11.6-14.6); RBC Distribution Width SD 47.4 fl (35.1-43.9); Red Blood Count 3.79 M/mm3 (4.2-5.4); White Blood Count 10.4 K/mm3 (4.4-11.0)
[2023-03-30 12:31] LABS: Erythrocyte Sedimentation Rate 2 mm/hr (0-30)
[2023-03-30 12:36] LABS: Hemoglobin A1c 5.4 % (3.8-5.6)
[2023-03-30 12:45] LABS: Vitamin D,25 Hydroxy 50.6 ng/mL
[2023-03-30 12:57] LABS: ALB/GLOB Ratio 1.4 RATIO (0.9-2.4); AST(SGOT) 15 U/L (15-37); Alanine Aminotransfer ALT/SGPT 27 U/L (13-56); Albumin, Serum 4.1 g/dL (3.2-5.0); Alkaline Phosphatase 68 U/L (45-117); Anion Gap 2 (5-15); BUN 7 mg/dL (7-18); BUN/Creat Ratio 8.9 RATIO (10-20); CRP < 2.90 mg/L (0.0-3.0); Calcium,Total 8.8 mg/dL (8.5-10.1); Chloride 108 mmol/L (98-107); Cholesterol 196 mg/dL (200); Creatinine, Serum 0.78 mg/dL (0.55-1.02); EST Glomerular Filtration Rate 79 mL/min (>60); Est Glom Filt Rate - Afr Amer 96 mL/min (>60); Glucose 107 mg/dL (74-106); High Density Lipoprotein 114 mg/dL; LDH 176 U/L (84-246); Protein, Total 7.1 g/dL (6.4-8.2); Sodium Level 136 mmol/L (136-145); Thyroid Stim Hormone (TSH) 1.02 uIU/mL (0.358-3.74); Triglycerides 64 mg/dL; Very Low Density Lipoprotein 13 mg/dL (5-40)
== END | disposition home or self-care (01) ==
LOC: MTLAB 11:05
PROVIDERS: PCP Internal Medicine; Referring Provider Internal Medicine; Visit Provider Internal Medicine
DX: E78.49 Other hyperlipidemia (principal); M35.9 Systemic involvement of connective tissue, unspecified; E03.9 Hypothyroidism, unspecified; E55.9 Vitamin D deficiency, unspecified; R61 Generalized hyperhidrosis; R73.01 Impaired fasting glucose
CPT/HCPCS: 36415; 80053; 80061; 82306; 83036; 83615; 84443; 85025; 85652; 86140

== ENCOUNTER → 2023-04-25 | Outpatient (CLI) | payer OTHER, SELFPAY ==
--- NOTE | 2023-04-25 10:40 | RAD_ITS ---
EXAM: XR RIGHT RIBS, 2 VIEWS CLINICAL INDICATION: CHEST AND RIB PAIN TECHNIQUE: Frontal and oblique(4) views of the right ribs. COMPARISON: Chest radiographs of this same date and from 03/20/2023 FINDINGS: LUNGS AND PLEURAL SPACES: No acute infiltrates or pneumothorax identified on the right. BONES/JOINTS: A single oblique view shows a transversely oriented linear lucency through the lateral right fifth rib. AP view shows a similar transversely oriented linear lucency extending through the lateral right seventh rib. These suspected rib fractures not confirmed on the other views. No displaced rib fractures are identified. OTHER:Right hilar calcified granulomas, midthoracic kyphoplasty and cervical fixation plate again noted. RAD/Ribs Unil 2V No CXR IMPRESSION: Findings suspicious for nondisplaced fractures of the lateral right fifth and lateral seventh ribs, with these suspected fractures seen on a single view only. Electronically Signed: Alex Kumari MD at 23:14 EST ,
--- NOTE | 2023-04-25 11:10 | RAD_ITS ---
EXAM: XR CHEST, 2 VIEWS CLINICAL INDICATION: chest and rib pain TECHNIQUE: Frontal and lateral views of the chest. COMPARISON: 03/20/2023 FINDINGS: LUNGS AND PLEURAL SPACES: Right hilar granulomas. No pneumothorax. No effusion. HEART: No significant abnormality. Cardiac silhouette not enlarged. MEDIASTINUM: Central airways and mediastinal contour are unremarkable. BONES/JOINTS: T7 vertebral augmentation. No acute fracture. SOFT TISSUES: No significant abnormality. OTHER FINDINGS: ACDF changes in the lower cervical region. RAD/Chest PA and Lateral IMPRESSION: No acute findings in the chest. Electronically Signed: Franklin Wick DO at 21:03 EST ,
== END | disposition home or self-care (01) ==
LOC: MTRAD 10:38
PROVIDERS: PCP Internal Medicine; Referring Provider Clinical Nurse Specialist Adult Health; Visit Provider Clinical Nurse Specialist Adult Health
DX: R07.81 Pleurodynia (principal); R07.89 Other chest pain
CPT/HCPCS: 71046; 71100

== ENCOUNTER → 2023-06-09 | Outpatient (CLI) | payer OTHER, SELFPAY ==
[2023-06-09 15:43] LABS: Absolute Lymphocyte Count 1.44 X10^3/uL (0.83-4.51); Absolute Neutrophil Count 5.6 X10^3/uL (2.0-7.7); Basophil# 0.03 X10^3/uL; Basophil% 0.4 % (0-1); Eosinophil# 0.04 X10^3/uL; Eosinophils% 0.5 % (0-5); Hematocrit 40.9 % (37-47); Hemoglobin 13.4 g/dL (12.0-15.0); Lymphocyte # 1.44 X10^3/ul (0.83-4.51); Lymphocyte % 18.6 % (19-41); Mean Corp Hgb Conc 32.8 g/dL (32-36); Mean Corpuscular Hgb 32.4 pg (27.0-32.0); Mean Platelet Vol. 9.9 fl (6.2-12.0); Monocyte# 0.65 X10^3/uL; Monocyte% 8.4 % (0-10); NRBC Flagged by Analyzer 0 % (0-5); Neutrophil # 5.55 X10^3/uL (2.7-7.7); Neutrophil % 71.8 % (47-70); Platelet Count 312 K/mm3 (150-450); RBC Distribution Width CV 12.2 % (11.6-14.6); RBC Distribution Width SD 44.9 fl (35.1-43.9); Red Blood Count 4.13 M/mm3 (4.2-5.4); White Blood Count 7.7 K/mm3 (4.4-11.0)
[2023-06-09 15:47] LABS: Microalbumin,Random Urine 14.5 mg/L (NO RANGE EST.); Microalbumin:Creatinine Ratio 6.7 mg/g CRE (<30 mg/g CRE)
[2023-06-09 16:13] LABS: Hemoglobin A1c 5.6 % (3.8-5.6)
[2023-06-09 16:20] LABS: ALB/GLOB Ratio 1.3 RATIO (0.9-2.4); AST(SGOT) 20 U/L (15-37); Alanine Aminotransfer ALT/SGPT 26 U/L (13-56); Albumin, Serum 4.2 g/dL (3.2-5.0); Alkaline Phosphatase 48 U/L (45-117); Anion Gap 3 (5-15); BUN 6 mg/dL (7-18); BUN/Creat Ratio 7.4 RATIO (10-20); Calcium,Total 8.9 mg/dL (8.5-10.1); Chloride 101 mmol/L (98-107); Cholesterol 189 mg/dL (200); Creatinine, Serum 0.81 mg/dL (0.55-1.02); EST Glomerular Filtration Rate 77 mL/min (>60); Est Glom Filt Rate - Afr Amer 93 mL/min (>60); Globulin 3.2 g/dL (2.2-4.2); Glucose 101 mg/dL (74-106); High Density Lipoprotein 98 mg/dL; Protein, Total 7.4 g/dL (6.4-8.2); Sodium Level 131 mmol/L (136-145); T4 Free Direct 0.91 ng/dL (0.76-1.46); Thyroid Stim Hormone (TSH) 2.01 uIU/mL (0.358-3.74); Triglycerides 67 mg/dL; Very Low Density Lipoprotein 13 mg/dL (5-40)
== END | disposition home or self-care (01) ==
LOC: MTLAB 13:31
PROVIDERS: PCP Internal Medicine; Referring Provider Internal Medicine; Visit Provider Internal Medicine
DX: E03.9 Hypothyroidism, unspecified (principal); E78.49 Other hyperlipidemia; R73.01 Impaired fasting glucose
CPT/HCPCS: 36415; 80053; 80061; 82043; 82570; 83036; 84439; 84443; 85025

== ENCOUNTER → 2023-06-14 | Outpatient (CLI) | payer OTHER, SELFPAY ==
--- NOTE | 2023-06-14 15:47 | RAD_ITS ---
INDICATION: right rib fracture EXAMINATION/TECHNIQUE: X-RAY - XR Ribs Unilateral W/ PA Chest Min 3 Views COMPARISON: Prior study dated: 04/25/2023 FINDINGS: SOFT TISSUES: No soft tissue swelling or gas. BONES: No displaced fracture. No sclerotic or destructive changes observed. VISUALIZED LUNGS: Clear. No pneumothorax. RAD/Ribs Uni Min 3V w/PA Chest IMPRESSION: No evidence of displaced rib fracture. Electronically Signed: Jam Thomas MD at 9:28 EDT ,
--- NOTE | 2023-06-14 15:47 | RAD_ITS ---
INDICATION: lumbar radiculopathy EXAMINATION/TECHNIQUE: X-RAY - XR Spine Lumbar Min 4 Views COMPARISON: Prior study dated: 02/23/2023 FINDINGS: VERTEBRAE: Preserved vertebral body height. No fracture. Minimal anterolisthesis of L4 over L5. Preservation of the normal lumbar lordosis. Minimal dextroscoliosis. DISCS: Fusion of L5 and S1 with bilateral pedicle screws stable since the previous examination. INCLUDED ABDOMEN: Included bowel gas pattern is non-obstructive. RAD/L/S Spine Min 4 Views IMPRESSION: Fusion of L5-S1 with pedicle screws unchanged. Electronically Signed: Jam Thomas MD at 8:39 EDT ,
--- NOTE | 2023-06-14 15:47 | RAD_ITS ---
INDICATION: abdominal pain, chronic, right upper quadrant EXAMINATION/TECHNIQUE: X-RAY - XR Spine Thoracic 3 Views COMPARISON: No relevant prior comparison study available FINDINGS: VERTEBRAE: Mild compression fracture of T8 vertebra treated with vertebroplasty. The remainder of the vertebral heights are within normal limits. No spondylolisthesis. Mild increased kyphosis of the thoracic spine. Levoscoliosis. DISCS: Disc spaces are within normal limits. INCLUDED CHEST/ABDOMEN: No acute abnormalities. RAD/Thoracic Spine 3 Views IMPRESSION: No demonstrated acute changes as described above. Electronically Signed: Jam Thomas MD at 9:24 EDT ,
== END | disposition home or self-care (01) ==
PROVIDERS: PCP Internal Medicine; Referring Provider Internal Medicine; Visit Provider Internal Medicine
DX: S22.31XA Fracture of one rib, right side, initial encounter for closed fracture (principal); X58.XXXA Exposure to other specified factors, initial encounter; M54.16 Radiculopathy, lumbar region; R10.11 Right upper quadrant pain; G89.29 Other chronic pain
CPT/HCPCS: 71101; 72072; 72110

== ENCOUNTER → 2023-08-04 | Outpatient (CLI) | payer OTHER, SELFPAY ==
--- NOTE | 2023-08-04 13:34 | CT_ITS ---
STUDY: CT ABDOMEN WITH CONTRAST REASON FOR EXAM: Female, 63 years old. abd. pain -- abd. pain RADIATION DOSAGE (If Supplied By Facility): CTDIvol = ( 8.8 ) mGy, DLP = ( 238.46 ) mGycm TECHNIQUE: Transaxial images were obtained post I.V. administration of IV 100mL Isovue-300, and oral contrast. Sagittal and coronal images were reconstructed. Individualized dose optimization techniques were used for this CT. COMPARISON: Comparison is made with prior study dated February 14, 2018. FINDINGS: Minimal linear scarring in the anterior medial aspect of the right middle lobe. The visualized portions of the heart are within normal limits. Normal liver. Normal gallbladder and extrahepatic biliary system. There are multiple benign calcified granulomata of the spleen. Normal pancreas. There is a small, circumscribed, smooth, low attenuation right adrenal mass, consistent with an adrenal adenoma. This measures 1.1 cm. Normal left adrenal gland. Normal right kidney. Normal left kidney. Normal visualized stomach. Normal small intestine. Normal colon. The patient is status post appendectomy. Patient status post hysterectomy. There is scattered atherosclerotic calcification of the abdominal aorta, without a demonstrated aneurysm. Normal inferior vena cava. Normal retroperitoneum. Normal abdominal wall. Postoperative changes at the L5-S1 level. Grade 1 anterolisthesis of L5 on S1. CT/Abdomen WITH IV Contrast IMPRESSION: Findings suggestive of a small right adrenal adenoma. Electronically Signed: Barrera Nguyen MD at 15:03 EDT ,
[2023-08-04 14:20] LABS: CREATININE FINGERSTICK < 1.0 mg/dL (0.55-1.02); EGFR FINGERSTICK > 60.0000 mL/min (>60)
== END | disposition home or self-care (01) ==
LOC: CT 13:34
PROVIDERS: PCP Internal Medicine; Referring Provider Internal Medicine; Visit Provider Internal Medicine
DX: R10.11 Right upper quadrant pain (principal)
CPT/HCPCS: 74160; Q9967

== ENCOUNTER → 2023-08-08 | Outpatient (CLI) | payer OTHER, SELFPAY ==
--- NOTE | 2023-08-08 10:13 | US_ITS ---
STUDY: ABDOMINAL ULTRASOUND - RIGHT UPPER QUADRANT REASON FOR VISIT: Female, 63 years old RUQ chronic abdo. pain -- RUQ chronic abdo. pain TECHNIQUE: Ultrasound evaluation of the right upper quadrant was performed with real-time and static mancia-scale imaging. TECHNICAL QUALITY: Adequate. COMPARISON: Comparison is made with prior CT scan the abdomen dated August 04, 2023. FINDINGS: Liver: The liver is mildly enlarged and measures 17.7 cm. There is normal echogenicity of the liver. The bile ducts are within normal limits. There is hepatic color flow. The direction of portal flow is hepatopetal. There is no demonstrated mass lesion. Gallbladder: Normal distended gallbladder. The gallbladder wall measures 1 mm. There is a negative sonographic Torres''s sign. There is no pericholecystic fluid. There are no gallstones. Common Bile Duct (C.B.D.): The common bile duct measures 7 mm. Pancreas: Normal size of the head, body and tail of the pancreas. There is normal echogenicity of the pancreas. There is no demonstrated pancreatic mass or cyst. Right Kidney: Normal size of the right kidney. The right kidney measures 10.4 cm x 4.1 cm x 4.2 cm. Normal renal cortex. The right cortex measures 1 cm. There is no demonstrated renal mass or cyst. There is no right hydronephrosis. US/Abdomen Limited IMPRESSION: Mild hepatomegaly. Electronically Signed: Barrera Nguyen MD at 14:36 EDT ,
--- NOTE | 2023-08-08 10:50 | RAD_ITS ---
STUDY: X-RAY - NASAL BONES REASON FOR EXAM: Female, 63 years old. Facial pain TECHNIQUE: 3 view(s) of the nasal bones. COMPARISON: None. FINDINGS: Normal nasal bones. Normal anterior nasal spine. There is no demonstrated soft tissue swelling. The remaining visualized osseous structures are normal. Normal visualized paranasal sinuses. RAD/Nasal Bones min 3 Views IMPRESSION: Normal x-ray examination of the nasal bones. Electronically Signed: Johann Cortez MD at 19:37 EDT ,
== END | disposition home or self-care (01) ==
PROVIDERS: PCP Internal Medicine; Referring Provider Internal Medicine; Visit Provider Internal Medicine
DX: R10.11 Right upper quadrant pain (principal); R51.9 Headache, unspecified
CPT/HCPCS: 70160; 76705

== ENCOUNTER → 2023-09-21 | Outpatient (CLI) | payer OTHER, SELFPAY ==
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
== END | disposition home or self-care (01) ==
LOC: NM 13:07
PROVIDERS: PCP Internal Medicine; Referring Provider Internal Medicine; Visit Provider Internal Medicine
DX: R11.0 Nausea (principal)
CPT/HCPCS: 78264; A9541

== ENCOUNTER → 2023-11-15 | Outpatient (CLI) | payer OTHER, SELFPAY ==
--- NOTE | 2023-11-15 16:47 | RAD_ITS ---
INDICATION: PAIN, FALL EXAMINATION/TECHNIQUE: X-RAY - XR Ribs Unilateral Min 2 Views COMPARISON: Prior study dated: 04/25/2023 FINDINGS: SOFT TISSUES: No soft tissue swelling or gas. BONES: No displaced fracture. No sclerotic or destructive changes observed. VISUALIZED LUNGS: Clear. No pneumothorax. RAD/Ribs Unil 2V No CXR IMPRESSION: No evidence of displaced rib fracture. Electronically Signed: Parrish Quach MD at 23:29 EDT ,
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
== END | disposition home or self-care (01) ==
LOC: MTRAD 16:45
PROVIDERS: PCP Internal Medicine; Referring Provider Clinical Nurse Specialist Adult Health; Visit Provider Clinical Nurse Specialist Adult Health
DX: R07.81 Pleurodynia (principal)
CPT/HCPCS: 71046; 71100

== ENCOUNTER 2023-11-20 01:58 | Emergency (ER) | payer OTHER, SELFPAY ==
[2023-11-20 02:00] VITALS: BP 135/75; PULSE 94; RESP 18; TEMP 36.6; O2SAT 100; BMI 22.7
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
[2023-11-20] MEDS: 0.9% Normal Saline (1000mL) 1,000 ML 999 ML IV (02:26)
[2023-11-20] MEDS: Morphine 4 MG/ML Syringe IV (02:26)
[2023-11-20] MEDS: Acetaminophen 500 MG Tablet 1000 MG PO (02:26)
[2023-11-20] MEDS: Ondansetron 4 MG/2 ML Vial IV (02:27)
[2023-11-20 02:30] VITALS: TEMP 36.6; O2SAT 100
[2023-11-20 02:42] LABS: Absolute Lymphocyte Count 1.81 X10^3/uL (0.83-4.51); Absolute Neutrophil Count 3.3 X10^3/uL (2.0-7.7); Basophil# 0.04 X10^3/uL; Basophil% 0.7 % (0-1); Eosinophil# 0.03 X10^3/uL; Eosinophils% 0.5 % (0-5); Hematocrit 31.6 % (37-47); Hemoglobin 10.3 g/dL (12.0-15.0); Lymphocyte # 1.81 X10^3/ul (0.83-4.51); Lymphocyte % 30.3 % (19-41); Mean Corp Hgb Conc 32.6 g/dL (32-36); Mean Corpuscular Hgb 32.4 pg (27.0-32.0); Mean Corpuscular Volume 99.4 fL (81-99); Mean Platelet Vol. 9.3 fl (6.2-12.0); Monocyte# 0.76 X10^3/uL; Monocyte% 12.7 % (0-10); NRBC Flagged by Analyzer 0 % (0-5); Neutrophil # 3.33 X10^3/uL (2.7-7.7); Neutrophil % 55.6 % (47-70); Platelet Count 270 K/mm3 (150-450); RBC Distribution Width CV 11.9 % (11.6-14.6); RBC Distribution Width SD 43.6 fl (35.1-43.9); Red Blood Count 3.18 M/mm3 (4.2-5.4)
[2023-11-20 03:01] LABS: ALB/GLOB Ratio 1.4 RATIO (0.9-2.4); AST(SGOT) 15 U/L (15-37); Alanine Aminotransfer ALT/SGPT 20 U/L (13-56); Albumin, Serum 3.6 g/dL (3.2-5.0); Alkaline Phosphatase 53 U/L (45-117); Anion Gap 8 (5-15); BUN 14 mg/dL (7-18); BUN/Creat Ratio 20.3 RATIO (10-20); Calcium,Total 8.9 mg/dL (8.5-10.1); Chloride 98 mmol/L (98-107); Creatinine, Serum 0.69 mg/dL (0.55-1.02); EST Glomerular Filtration Rate 92 mL/min (>60); Est Glom Filt Rate - Afr Amer 111 mL/min (>60); Estimated Creatinine Clearance 80.15 ml/min; Globulin 2.6 g/dL (2.2-4.2); Glucose 110 mg/dL (74-106); Potassium 3.3 mmol/L (3.5-5.1); Protein, Total 6.2 g/dL (6.4-8.2); Sodium Level 131 mmol/L (136-145)
[2023-11-20 03:17] LABS: Squamous Epithelial Cells - UA 0 SEEN /hpf (5-10); White Blood Cells 0 SEEN /hpf (0-5)
[2023-11-20 03:43] LABS: Color, Urine Yellow (Yellow); Glucose, Dipstick Normal (Normal); Ketone-Dipstick Negative (Negative); Leukocyte Esterase-Dipstick Negative /ul (Negative); Nitrite-Dipstick Negative (Negative); Occult Blood-Urine 10 /ul (Negative); Protein-Dipstick 15 mg/dl (Negative); Specific Gravity, Urine 1.015 (1.002-1.030); Urine Bilirubin Dipstick Negative (Negative); Urine Clarity Clear (Clear); Urine Urobilinogen Normal (Normal); Urine pH 6.5 (5.0 - 8.0)
[2023-11-20 03:55] LABS: Bacteria 1+ /hpf (None Seen); Mucous, Urine RARE /hpf (<or=2+); Red Blood Cells-Urine 0-5 SEEN /hpf (0-5)
[2023-11-20 03:59] VITALS: BP 126/69; PULSE 88; RESP 16; O2SAT 95
[2023-11-20 05:00] VITALS: BP 118/67; PULSE 78; RESP 18; O2SAT 95
[2023-11-20 05:07] VITALS: BP 118/67; PULSE 78; RESP 16; TEMP 36.5; O2SAT 95
== END 2023-11-20 05:12 | disposition home or self-care (01) ==
PROVIDERS: Emergency Provider Emergency Medicine; PCP Internal Medicine; Visit Provider Emergency Medicine
DX: S09.90XA Unspecified injury of head, initial encounter (principal); S20.20XA Contusion of thorax, unspecified, initial encounter; S30.1XXA Contusion of abdominal wall, initial encounter; S16.1XXA Strain of muscle, fascia and tendon at neck level, initial encounter; F17.210 Nicotine dependence, cigarettes, uncomplicated; V49.40XA Driver injured in collision with unspecified motor vehicles in traffic accident, initial encounter
CPT/HCPCS: 70450; 71260; 72125; 74177; 80053; 81001; 85025; 93005; 96361; 96374; 96375; 99283; J7030; Q9967; A4216; J2405

== ENCOUNTER → 2024-01-24 | Outpatient (CLI) | payer OTHER, SELFPAY ==
--- NOTE | 2024-01-24 13:09 | BI_ITS ---
MAMMOGRAPHY - BILATERAL SCREENING 3-D TOMOSYNTHESIS REASON FOR EXAM: Female, 63 years old. Routine screening PERTINENT HISTORY: Strong family history including mother, great aunt and cousins with breast cancer TECHNIQUE: 2-D mammograms and 3-D Tomosynthesis of the breast (s) were performed. CAD was performed. COMPARISON: 01/09/2023 FINDINGS: The breast composition is composed of scattered fibroglandular density. Scattered benign calcifications are seen. No dense spiculated masses or suspicious microcalcifications are identified. No architectural distortion is identified. There is no skin thickening or retraction. There has been no significant change since the prior study. BI/SCRN MAMM (CAD)W/SHEREEN BILAT IMPRESSION: No mammographic signs of malignancy. Routine yearly mammograms recommended. ASSESSMENT CATEGORY: BIRADS Category 1: Negative. A letter regarding these results will be sent to the patient by the facility within 30 days. FOLLOW UP RECOMMENDATION: Yearly follow up mammogram recommended. (A) Approximately 10% of breast cancers are not detected by mammography. A normal mammogram should not delay biopsy of a clinically suspicious abnormality. Electronically Signed: Yovanny White MD at 14:45 EST ,
--- NOTE | 2024-01-24 13:20 | BD_ITS ---
STUDY: DUAL ENERGY X-RAY ABSORPTIOMETRY / DXA REASON FOR EXAM: Female, 63 years old. [id number] -- Postmenopausal status TECHNIQUE: Bone Mineral Density (BMD) measurements of lumbar spine and bilateral hips were obtained. COMPARISON: Comparison is made with prior study November 30, 2021. FINDINGS: Lumbar Spine (L1-L4): g/cm2 (0.832) / T-score (-2.0) / Z-score (-0.4) Findings are suggestive of osteopenia with a moderate fracture risk. Left Femur Total: g/cm2 (0.705) / T-score (-1.9) / Z-score (-0.9) Left Femoral Neck: g/cm2 (0.544) / T-score (-2.7) / Z-score (-1.4) Right Femur Total: g/cm2 (0.714) / T-score (-1.9) / Z-score (-0.8) Right Femoral Neck: g/cm2 (0.528) / T-score (-2.9) / Z-score (-1.5) The T-Scores on the most recent prior examination were: Lumbar Spine (L1-L4): There has been improvement of bone density since the previous examination. Left Femur Total: which represents an improvement of 8.1%. Right Femur Total: which represents an improvement of 4.4%. BD/Dexa Bone Density Study IMPRESSION: The patient is considered osteoporotic as outlined below according to World Tod Organization (WHO) criteria with a high fracture risk. There has been improvement of bone density since the previous examination. Reference Information: The T-score is the number of standard deviations above or below the standard which is normal for young adults at their peak bone mineral density. The World Health Organization (WHO) interprets the T-scores as follows: Above -1 Normal bone density Between -1 and -2.5 Osteopenia Equal to / or below -2.5 Osteoporosis As a practical clinical guideline, osteopenia may be graded as follows: Mild -1 through -1.5 Moderate -1.6 through -2.0 Severe -2.1 through -2.4 The Z-score is the number of standard deviations above or below age-matched controls. A Z-score of less than -1.5 would be considered abnormal. References: 1. NIH Osteoporosis and Related Bone Diseases www osteo.org 2. International Society for Clinical Densitometry www iscd.org 3. National Osteoporosis Foundation www nof.org Electronically Signed: Barrera Nguyen MD at 12:36 EST ,
== END | disposition home or self-care (01) ==
PROVIDERS: PCP Internal Medicine; Referring Provider Internal Medicine; Visit Provider Internal Medicine
DX: Z78.0 Asymptomatic menopausal state (principal); Z12.31 Encounter for screening mammogram for malignant neoplasm of breast
CPT/HCPCS: 77063; 77067; 77080

== ENCOUNTER → 2024-06-19 | Outpatient (CLI) | payer OTHER, SELFPAY ==
--- NOTE | 2024-06-19 15:25 | RAD_ITS ---
PROCEDURE: L/S SPINE COMP/W BENDING VIEWS 06/19/2024 REASON FOR EXAM: LUMBAR DDD TECHNIQUE: Single 7 view of the lumbar spine FINDINGS: Vertebrae: No fracture. 6 lumbar type vertebral bodies. Discs: Disc space heights are preserved. Alignment: Status post transpedicular fixation at L5/S1 with anatomic alignment. No subluxation on the flexion extension views to suggest instability. Mild dextroscoliosis centered at L3/L4. Other: RAD/L/S Spine Comp/w Bending Views IMPRESSION: Status post transpedicular fixation at L6/S1. Mild dextroscoliosis. No instability. Reading Location: [id number]
== END | disposition home or self-care (01) ==
LOC: MTRAD 15:23
PROVIDERS: PCP Internal Medicine; Referring Provider Clinical Nurse Specialist Adult Health; Visit Provider Clinical Nurse Specialist Adult Health
DX: M51.369 Other intervertebral disc degeneration, lumbar region without mention of lumbar back pain or lower extremity pain (principal)
CPT/HCPCS: 72114

== ENCOUNTER → 2024-07-10 | Outpatient (CLI) | payer OTHER, SELFPAY ==
--- NOTE | 2024-07-10 15:54 | MRI_ITS ---
PROCEDURE: MRI ABD WITH AND W/O CONTRAST 07/10/2024 REASON FOR EXAM: DISEASES OF BILIARY TRACT TECHNIQUE: MRI of the upper abdomen without and with intravenous gadolinium-based contrast. Multiplanar and multisequence images were obtained. CONTRAST: 13 cc Clariscan. COMPARISON: CT chest abdomen and pelvis October 2023. CT abdomen July 2023. CT abdomen pelvis January 2018. FINDINGS: Liver: Normal morphology and signal intensity of the liver. No evidence of steatosis or abnormal iron deposition. Hepatic vasculature is unremarkable. Biliary: Slight prominence of the intrahepatic biliary radicles. Focal constriction at the biliary confluence. There is mild dilatation of the common hepatic duct at 10 mm, unchanged from most recent CT in 2023. It measured approximately 8 mm in January 2018. Common bile duct diameter is normal at 6 mm. No extrinsically compressing mass on the biliary tree. No choledocholithiasis. The gallbladder is normal. Pancreas: Pancreas and main pancreatic duct are normal. Spleen: Normal. Adrenals: 17 mm right adrenal adenoma, unchanged and benign. Left adrenal is unremarkable. Kidneys: Normal. Peritoneum / Retroperitoneum: Unremarkable. Lymph Nodes: No hemorrhage or adenopathy. Major Vessels: Normal caliber of the abdominal aorta and IVC which are patent. Miscellaneous: Constipation. Bones: Fusion hardware at L5-S1. mild chronic compression fracture of L4. MRI/MRI Abd WITH and W/O Contrast IMPRESSION: Focal stricture at the biliary confluence causing slight intrahepatic biliary d ilatation, unchanged from October 2023 CT. Just beyond this, the common hepatic duct is mildly dilated with tapering to a gurpreet l caliber common bile duct. Liver is otherwise unremarkable with no morphologic features of cirrhosis. While nonspecific, an early presentation of primary sclerosing cholangitis must be considered although not confirmed. No evidence of neoplasi a. Normal gallbladder. Normal pancreas and main pancreatic duct. Reading Location: [id number]
== END | disposition home or self-care (01) ==
LOC: MRI 15:48
PROVIDERS: PCP Internal Medicine; Referring Provider Internal Medicine; Visit Provider Internal Medicine
DX: K83.8 Other specified diseases of biliary tract (principal)
CPT/HCPCS: 74183; A9575; A4216

== ENCOUNTER → 2024-07-26 | Outpatient (CLI) | payer OTHER, SELFPAY ==
[2024-07-26 19:49] LABS: International Normalized Ratio 0.9; Prothrombin Time (Protime)PT. 12.2 SECONDS (11.7-14.9)
[2024-07-26 20:30] LABS: ALB/GLOB Ratio 1.9 RATIO (0.9-2.4); AST(SGOT) 19 U/L (<=31); Alanine Aminotransfer ALT/SGPT 14 U/L (<=34); Albumin, Serum 4.8 g/dL (3.4-4.8); Alkaline Phosphatase 50 U/L (35-104); Anion Gap 11 (5-15); BUN 6 mg/dL (4-19); BUN/Creat Ratio 7.9 RATIO (10-20); Calcium,Total 9.6 mg/dL (7.6-11.0); Carbon Dioxide 22.6 mmol/L (21.0-32.0); Chloride 97 mmol/L (98-108); Creatinine, Serum 0.71 mg/dL (0.70-1.20); EST Glomerular Filtration Rate 96 (>60); Globulin 2.6 g/dL (2.2-4.2); Glucose 103 mg/dL (70-99); Potassium 4.1 mmol/L (3.3-5.1); Protein, Total 7.4 g/dL (5.9-8.4); Sodium Level 131 mmol/L (133-145); Total Bilirubin 0.23 mg/dL (0.00-1.30)
[2024-07-29 15:08] LABS: Cytoplasmic Ab (C-ANCA) <1:20 titer (Neg:<1:20); HEPATITIS B SURFACE AG Negative (Negative); Hep C Antibodies Non Reactive (Non Reactive); Hepatitis A IgM Antibody Negative (Negative); Hepatitis B Core AB IgM Negative (Negative); IgG, Quant 764 mg/dL (586-1602); Immunoglobulin G, Subclass 1 396 mg/dL (248-810); Immunoglobulin G, Subclass 2 204 mg/dL (130-555); Immunoglobulin G, Subclass 3 64 mg/dL (15-102); Immunoglobulin G, Subclass 4 15 mg/dL (2-96); Perinuclear Ab (P-ANCA) <1:20 titer (Neg:<1:20)
[2024-07-29 16:08] LABS: Anti-Mitochondrial AB <20.0 Units (0.0-20.0)
== END | disposition home or self-care (01) ==
LOC: MTLAB 15:47
PROVIDERS: PCP Internal Medicine; Referring Provider Student in an Organized Health Care Education/Training Program; Visit Provider Student in an Organized Health Care Education/Training Program
DX: K83.9 Disease of biliary tract, unspecified (principal)
CPT/HCPCS: 36415; 80053; 80074; 82784; 82787; 83516; 85610; 86037

== ENCOUNTER → 2024-10-14 | Outpatient (CLI) | payer OTHER, SELFPAY ==
[2024-10-14 18:32] LABS: AST(SGOT) 23 U/L (<=31); Alanine Aminotransfer ALT/SGPT 22 U/L (<=34); Albumin, Serum 4.6 g/dL (3.4-4.8); Alkaline Phosphatase 57 U/L (35-104); Anion Gap 12 (5-15); BUN 6 mg/dL (4-19); BUN/Creat Ratio 10.7 RATIO (10-20); Calcium,Total 9.1 mg/dL (7.6-11.0); Carbon Dioxide 23.8 mmol/L (21.0-32.0); Chloride 93 mmol/L (98-108); Free T3 2.3 pg/mL (2.18-3.98); Globulin 2.3 g/dL (2.2-4.2); Glucose 78 mg/dL (70-99); Potassium 4.1 mmol/L (3.3-5.1); Vitamin B12 1536 pg/mL (180-914)
[2024-10-14 18:43] LABS: FOLATES,SERUM (FOLIC ACID) 8.29 ng/mL (4.60-34.80)
== END | disposition home or self-care (01) ==
LOC: MTLAB 16:12
PROVIDERS: PCP Internal Medicine; Referring Provider Internal Medicine; Visit Provider Internal Medicine
DX: E03.9 Hypothyroidism, unspecified (principal); E87.1 Hypo-osmolality and hyponatremia; L65.9 Nonscarring hair loss, unspecified
CPT/HCPCS: 36415; 80053; 82607; 82746; 84439; 84443; 84481

== ENCOUNTER 2024-10-29 09:13 | Outpatient (CLI) | payer OTHER, SELFPAY ==
[2024-10-29] VITALS (12 sets, daily range): BP systolic 109–132; BP diastolic 57–83; PULSE 60–90; RESP 13–18; TEMP 36.1–36.4; O2SAT 97–100; BMI 20.6
[2024-10-29 10:06] LABS: Platelet Count 285 K/mm3 (150-450)
[2024-10-29 10:10] LABS: Prothrombin Time (Protime)PT. 12.4 SECONDS (11.7-14.9)
[2024-10-29 10:11] LABS: Partial Thromboplast Time 27.5 Seconds (24.1-36.2)
[2024-10-29] MEDS: 0.9% Normal Saline (250mL Bag) 250 ML 15 ML IV (10:25)
[2024-10-29] MEDS: Midazolam 2 MG/2 ML Syringe IV ×2 (10:30→10:39)
[2024-10-29] MEDS: fentaNYL 100 MCG/2 ML Ampul IV ×2 (10:30→10:39)
--- NOTE | 2024-10-29 10:30 | CT_ITS ---
EXAM: CT-guided liver biopsy. CLINICAL HISTORY: Possible primary sclerosing cholangitis. COMPARISON: None TECHNIQUE: The procedure as well as the benefits and possible complications including infection and bleeding were explained to the patient. Informed consent was obtained. The patient was in the supine position. The overlying skin was prepped and draped in the usual sterile fashion. Conscious sedation was performed. The patient received 3 mg of Versed and 75 mcg of fentanyl intravenously. Conscious sedation was started at 10:30 a.m. and terminated at 10:45 a.m.. The patient was independently monitored by the department nurse. Following local anesthetic application, an 18 gauge core biopsy needle was placed in the right lobe of the liver. 4 core biopsies were obtained. The patient tolerated the procedure well. FINDINGS: Successful CT-guided core biopsies of the right lobe of the liver as described. The patient tolerated the procedure well. No immediate complication seen. CT/Biopsy/Inj or Needle Placement IMPRESSION: Successful CT-guided core biopsies of the right lobe of the liver as described. The patient tolerated the procedure well. No immediate complication was noted. Reading Location: [place] [id number]
[2024-10-29] MEDS: Lidocaine 2% (20 ml mdv) 20 ML Vial INFILT (10:37)
[2024-10-29 12:00] LABS: Pathology Sent to OSU SEE PATHOLOGY REPORT
== END 2024-10-29 23:59 | disposition home or self-care (01) ==
PROVIDERS: PCP Internal Medicine; Referring Provider Internal Medicine Gastroenterology; Visit Provider Internal Medicine Gastroenterology
DX: K83.9 Disease of biliary tract, unspecified (principal); K74.00 Hepatic fibrosis, unspecified
CPT/HCPCS: 47000; 77012; 85049; 85610; 85730; 99156

== ENCOUNTER → 2024-12-31 | Outpatient (CLI) | payer OTHER, SELFPAY ==
[2024-12-31 13:40] LABS: AST(SGOT) 22 U/L (<=31); Alanine Aminotransfer ALT/SGPT 19 U/L (<=34); Albumin, Serum 4.5 g/dL (3.4-4.8); Alkaline Phosphatase 67 U/L (35-104); Anion Gap 9 (5-15); BUN 5 mg/dL (4-19); BUN/Creat Ratio 7.6 RATIO (10-20); CRP < 3.00 mg/L (0.0-3.0); Calcium,Total 9.1 mg/dL (7.6-11.0); Carbon Dioxide 24.5 mmol/L (21.0-32.0); Chloride 101 mmol/L (98-108); Globulin 2.6 g/dL (2.2-4.2); Glucose 95 mg/dL (70-99); Potassium 4.0 mmol/L (3.3-5.1); Vitamin B12 900 pg/mL (180-914)
[2025-01-03 23:07] LABS: ACCA 62 units (0-90); ALCA 34 units (0-60); AMCA 29 units (0-100); Immunoglobulin A 111 mg/dL (87-352); Immunoglobulin G 826 mg/dL (586-1602); Immunoglobulin G, Subclass 1 405 mg/dL (248-810); Immunoglobulin G, Subclass 2 224 mg/dL (130-555); Immunoglobulin G, Subclass 3 72 mg/dL (15-102); Immunoglobulin G, Subclass 4 14 mg/dL (2-96); Immunoglobulin M 340 mg/dL (26-217)
== END | disposition home or self-care (01) ==
LOC: LAB 12:10
PROVIDERS: PCP Internal Medicine; Referring Provider Internal Medicine Gastroenterology; Visit Provider Internal Medicine Gastroenterology
DX: K83.01 Primary sclerosing cholangitis (principal)
CPT/HCPCS: 36415; 80053; 82607; 82784; 82785; 82787; 83516; 85652; 86036; 86140; 86671

== ENCOUNTER → 2025-01-31 | Outpatient (CLI) | payer OTHER, SELFPAY ==
--- NOTE | 2025-01-31 12:45 | BI_ITS ---
EXAM: SCRN MAMM (CAD)W/SHEREEN BILAT DATE: 01/31/2025 CLINICAL HISTORY: F, Age 64 y/o , BILAT BRST SCREEN SHEREEN ADD-ON TECHNIQUE: Procedure Code: [id number] Modality: MG Procedure: SCRN MAMM (CAD)W/SHEREEN BILAT COMPARISON: Prior exam(s) dated 01/24/2024, 01/09/2023, 08/05/2022. FINDINGS: TISSUE DENSITY: The breasts are heterogeneously dense, which may obscure small masses. The mammogram demonstrates that the patient has dense breasts. Supplemental screening with whole breast ultrasound or MRI may be considered for further evaluation. Bilateral Breast Mammographic Findings: No significant masses, calcifications or other abnormalities are identified. BI/SCRN MAMM (CAD)W/SHEREEN BILAT IMPRESSION: There is no mammographic evidence of malignancy. OVERALL FINAL ASSESSMENT BI-RADS 1: NEGATIVE. RECOMMENDATION: Routine annual follow-up in 1 Year Additional Recommendation none A letter with findings and recommendations will be mailed to the patient. Reading Location: [id number]
== END | disposition home or self-care (01) ==
LOC: OPBI 12:58
PROVIDERS: PCP Internal Medicine; Referring Provider Internal Medicine; Visit Provider Internal Medicine
DX: Z12.31 Encounter for screening mammogram for malignant neoplasm of breast (principal)
CPT/HCPCS: 77063; 77067